=== PATIENT | male | born 1940 | race Caucasian/White ===

== ENCOUNTER 2022-08-31 11:52 | Outpatient (OUT) | payer MEDICARE, SELFPAY ==
--- NOTE | 2022-08-31 | ECG_ITS ---
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
[2022-08-31 12:43] LABS: Basophils Percent Auto 0.5 % (0.2-2.0); Eosinophils Absolute Auto 0.1 10^3/uL (0.0-0.7); Eosinophils Percent Auto 1.2 % (0.9-7.0); Hematocrit 41.9 % (42.0-54.0); Hemoglobin 13.5 g/dL (14.0-18.0); Immature Granulocytes Abs Auto 0.02 10^3/uL (0.00-0.03); Immature Granulocytes Pct Auto 0.3 % (0.0-0.5); Lymphocytes Absolute Auto 1.8 10^3/uL (1.2-3.8); Lymphocytes Percent Auto 30.4 % (20.5-60.0); Mean Corpuscular HGB Conc 32.2 g/dL (29.9-35.2); Mean Corpuscular Hemoglobin 31.9 pg (25.9-34.0); Mean Corpuscular Volume 99.1 fL (80.0-94.0); Mean Platelet Volume 10.6 fL (9.5-13.5); Monocytes Absolute Auto 0.7 10^3/uL (0.3-0.8); Monocytes Percent Auto 11.3 % (1.7-12.0); Neutrophils Absolute Auto 3.2 10^3/uL (1.4-6.5); Neutrophils Percent Auto 56.3 % (43.0-75.0); Platelet Count 149 10^3/uL (150-450); Red Blood Count 4.23 10^6/uL (4.70-6.10); Red Cell Distribution Width 13.5 % (11.0-15.0); White Blood Count 5.8 10^3/uL (4.0-11.0)
[2022-08-31 14:16] LABS: Anion Gap 12.4; BUN Creatinine Ratio 24.2; Calcium 9.5 mg/dL (8.5-10.1); Carbon Dioxide 27.6 mmol/L (21.0-32.0); Chloride 106 mmol/L (98-107); Estimated GFR (African America >60 (>=60); Estimated GFR (Non-African Ame >60 (>=60); Glucose 137 mg/dL (74-106); Sodium 142 mmol/L (136-145)
== END 2022-08-31 11:53 | disposition home or self-care (01) ==
LOC: LAB 11:58
PROVIDERS: PCP Family Medicine
DX: R30.0 Dysuria (principal); N41.1 Chronic prostatitis; N40.1 Benign prostatic hyperplasia with lower urinary tract symptoms; N13.8 Other obstructive and reflux uropathy
CPT/HCPCS: 36415; 80048; 85025; 93005

== ENCOUNTER 2022-09-20 12:26 | Outpatient (OUT) | payer MEDICARE, SELFPAY ==
--- NOTE | 2022-09-20 12:47 | CT_ITS ---
[address] [address] Patient Name: CHEMA ALTMAN MRN: [id number] date: 1940 Sex: M Assigned Patient Location: CT Current Patient Location: CT Accession/Order Number: [id number] Exam Date: 09/20/2022 12:38 Report Date: 09/20/2022 13:41 At the request of: ZOILA JAVED Procedure: CT chest wo con EXAMINATION: CT chest wo con HISTORY: Other non specific abnormal finding of lung field [id number] COMPARISON: CT chest 06/26/2022 TECHNIQUE: Multi-planar CT images were obtained without and/or with IV contrast as indicated by examination type. Axial, Coronal, and Sagittal images. Dose reduction techniques were achieved by using automated exposure control and/or adjustment of mA and/or kV according to patient size and/or use of iterative reconstruction technique. FINDINGS: LUNGS: Continuing decrease in size of strandy opacities within lateral right lung base and left posterior costophrenic angle. Moderate emphysematous changes. Borderline mild bronchiectasis. PLEURA: No mass, effusion, or pneumothorax. VASCULATURE: No abnormality. EMILY: No mass or adenopathy. MEDIASTINUM: No mass or adenopathy. CARDIAC: Small pericardial effusion AORTA: No aneurysm or dissection. CHEST WALL: No mass or axillary adenopathy. BONES: No bone lesion or fracture. LIMITED ABDOMEN: No suspicious findings Limited images of the upper abdomen. OTHER: Negative. CT/CT chest wo con IMPRESSION: 1. Further decrease in size and scope of coarse stranding within posterior lateral right upper lower lobes favoring scarring or resolving postinflammatory changes. No acute or suspicious findings. 2. Moderate emphysematous changes. 3. Stable small pericardial effusion. Electronically authenticated by: PAULINA BOWLES Date: 09/20/2022 13:41
== END 2022-09-20 12:27 | disposition home or self-care (01) ==
LOC: CT 12:27
PROVIDERS: PCP Family Medicine; Visit Provider Internal Medicine
DX: R91.8 Other nonspecific abnormal finding of lung field (principal)
CPT/HCPCS: 71250

== ENCOUNTER 2022-10-24 14:34 | Outpatient (OUT) | payer MEDICARE, SELFPAY ==
[2022-10-24 15:07] LABS: Estimated Average Glucose 146 mg/dL; Glycohemoglobin A1C 6.7 % (4.5-6.2)
== END 2022-10-24 14:35 | disposition home or self-care (01) ==
LOC: LAB 14:35
PROVIDERS: PCP Family Medicine; Visit Provider Family Medicine
DX: E11.22 Type 2 diabetes mellitus with diabetic chronic kidney disease (principal); N18.31 Chronic kidney disease, stage 3a; Z79.4 Long term (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 of insulin
CPT/HCPCS: 36415; 83036

== ENCOUNTER 2023-01-08 09:45 | Outpatient (OUT) | payer MEDICARE, SELFPAY ==
[2023-01-08 10:45] LABS: Free T4 1.05 ng/dL (0.76-1.46)
[2023-01-08 10:52] LABS: Thyroid Stimulating Hormone 1.187 uIU/mL (0.358-3.740)
== END 2023-01-08 09:46 | disposition home or self-care (01) ==
LOC: LAB 09:48
PROVIDERS: PCP Family Medicine; Visit Provider Family Medicine
DX: E03.9 Hypothyroidism, unspecified (principal); I10 Essential (primary) hypertension; R53.82 Chronic fatigue, unspecified; M1A.49X1 Other secondary chronic gout, multiple sites, with tophus (tophi); E11.22 Type 2 diabetes mellitus with diabetic chronic kidney disease; N18.31 Chronic kidney disease, stage 3a; Z79.4 Long term (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 of insulin; I12.9 Hypertensive chronic kidney disease with stage 1 through stage 4 chronic kidney disease, or unspecified chronic kidney disease; E78.2 Mixed hyperlipidemia
CPT/HCPCS: 36415; 80053; 80061; 83036; 84439; 84443; 84481; 84550

== ENCOUNTER 2023-03-07 12:16 | Outpatient (OUT) | payer MEDICARE, SELFPAY ==
--- OUTSIDE RECORDS SUMMARY | 2023-03-07 12:22 | XMS_ITS | CCD ---
Author Name Unknown Address [address] [place] [address] Organization [facility] Care Team Providers Care Dope Sprayer Name Role Phone Oumar Haynes Unavailable KANG MCFADDEN Primary Care Physician MD Kang Mcfadden Primary Care Provider MD Oumar Haynes Attending Provider [phone] Kang Mcfadden MD Primary Care Provider KONG PEPE Attending Unavailable KONG PEPE Attending Unavailable Unavailable Primary Care Provider UnavailYolette Alvarez Unavailable PROVIDER, UNKNOWN Attending Unavailable PROVIDER, UNKNOWN Admitting Unavailable HEMEYER ., DR KAPADIA Primary Care Unavailable MISC, DR WHITMAN Consulting Unavailable MISC, DR WHITMAN Attending Unavailable MISC, DR WHITMAN Admitting Unavailable HEMEYER ., DR KAPADIA Primary Care Unavailable SOSA ., DR THELMA Brown Consulting Unavailable SOSA ., DR THELMA Brown Attending Unavailable SOSA ., DR THELMA Brown Admitting Unavailable QUAKERTOWN, DR ULISSES Ivey Consulting Unavailable SHAIKH Matilde LAU Attending Unavailable HEMEYER ., DR KAPADIA Primary Care Unavailable SHAIKH Matilde LAU Admitting Unavailable SOSA ., DR THELMA Brown Consulting Unavailable BRAX[address] Consulting Unavailable SHAIKH Matilde LAU Consulting Unavailable FAROOQ HARDEN Consulting Unavailable PONCHO ROCHA Consulting Unavailable HEMEYER ., DR KAPADIA Primary Care Unavailable MISC, DR WHITMAN Consulting Unavailable MISC, DR WHITMAN Admitting Unavailable MISC, DR WHITMAN Attending Unavailable DONALD .ELDER Attending Unavailable HEMEYER ., DR KAPADIA Primary Care Unavailable DONALD .ELDER Admitting Unavailable SOSA ., DR THELMA Brown Consulting Unavailable MAXI, DR SUSANA G Consulting Unavailabl alejandro ADAMS, BING Consulting Unavailable SISTER, JERALD Consulting Unavailable DONALD ., ELDER Consulting Unavailable DIAB ., [place] Consulting Unavailable HEMEYER ., DR KAPADIA Admitting Unavailable HEMEYER ., DR KAPADIA Attending Unavailable HEMEYER ., DR KAPADIA Primary Care Unavailable HEMEYER ., DR KAPADIA Attending Unavailable HEMEYER ., DR KAPADIA Primary Care Unavailable HEMEYER ., DR KAPADIA Admrosi Unavailable THELMA BETTS Attending Unavailable HEMEYER ., DR KAPADIA Primary Care Unavailable THELMA BETTS Admitting Unavailable HEMEYER ., DR KAPADIA Attending Unavailable HEMEYER ., DR KAPADIA Primary Care Unavailable HEMEYER ., DR KAPADIA Consulting Unavailable HEMEYER ., DR KAPADIA Admitting Unavailable HEMEYER ., DR KAPADIA Admrosi Unavailable HEMEYER ., DR KAPADIA Attending Unavailable HEMEYER ., DR KAPADIA Primary Care Unavailable HEMEYER ., DR KAPADIA Consulting Unavailable HEMEYER ., DR KAPADIA Attending Unavailable HEMEYER ., DR KAPADIA Primary Care Unavailable HEMEYER ., DR KAPADIA Consulting Unavailable HEMEYER ., DR KAPADIA Admrosi Unavailable HEMEYER ., DR KAPADIA Attending Unavailable HEMEYER ., DR KAPADIA Primary Care Unavailable HEMEYER ., DR KAPADIA Consulting Unavailable HEMEYER ., DR KAPADIA Admrosi Unavailable SAMSA ., ZOILA Consulting Unavailable SAMSA ., ZOILA Attending Unavailable HEMEYER ., DR KAPADIA Primary Care Unavailable SAMSA ., ZOILA Admitting Unavailable HEMEYER ., DR KAPADIA Admitting Unavailable HEMEYER ., DR KAPADIA Attending Unavailable HEMEYER ., DR KAPADIA Primary Care Unavailable HEMEYER ., DR KAPADIA Consulting Unavailable SAMSA ., ZOILA Admitting Unavailable SAMSA ., ZOILA Attending Unavailable HEMEYER ., DR KAPADIA Primary Care Unavailable ZIEBER, DR PAULINA Chin Consulting Unavailable SAMSA ., ZOILA Consulting Unavailable Hemeyer Kang GARCÍA Primary Care Provider KANG MCFADDEN Primary Care Unavailable SUZY HUNTER Referring Unavailable ERICA VERAS Referring Unavailable HEMEYERKANG Primary Care Unavailable HEMEYERKANG Primary Care Unavailable TRISTON GONSALVES Referring Unavailable HEMEKANG SALEH Primary Care Unavailable ERICA VERAS Admitting Unavailable ERICA VERAS Attending Unavailable HEMEKANG SALEH Primary Care Unavailable TRISTON GONSALVES Referring Unavailable HEMEYERKANG Primary Care Unavailable ERICA VERAS Referring Unavailable KANG MCFADDEN Attending Unavailable MD Kang Mcfadden Primary Care Provider SHELBY Duff Attending Provider Horace Jasso Unavailable [phone] 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 Attending Unavailable 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 Admitting Unavailable Kang Mcfadden Primary Care Unavailable Allergies Allergy Classification Reported Allergen(s) Allergy Type Date of Onset Reaction(s) Facility (3 sources) Sulfamethoxazole / Trimethoprim; Translations: [sulfamethoxazole-tr imethoprim] Drug Allergy 3 Weal (disorder), Rash [facility] (2 sources) Tetracycline; Translations: [tetracycline] Drug Allergy Finding reported by subject or history provider (finding) [facility] (2 sources) Erythromycin Drug Allergy 8 Nausea And Vomiting [facility] (2 sources) levoFLOXacin Drug Allergy 3 Diarrhea [facility] Work Phone: (1 source) Sulfamethoxazole / Trimethoprim Drug Allergy [facility] [place] [facility] Medications Current Medications Medication Drug Class(es) Dates Sig (Normalized) Sig (Original) Allergy 25 MG (3 sources) take 1 capsule by mouth once daily Allergy 25 MG 1 capsule Orally Once a day Active allopurinol 300 mg oral tablet (6 sources) Xanthine Oxidase Inhibitor Start: 04-20-2022 take 1 tablet by mouth once daily allopurinol (ZYLOPRIM) 300 MG tablet TAKE 1 TABLET BY MOUTH EVERY DAY FOR 90 DAYS 0 04/20/2022 Active Start: 05-12-2019 allopurinol Re fills(s) 0 Start Date: 05/12/19 Status: Ordered Ascorbic Acid (1 source) Vitamin C Start: 11-23-2021 Vitamin C Amaya y, Refills(s) 0 Start Date: 11/23/21 Status: Ordered aspirin 81 mg oral tablet (5 sources) Platelet Aggregation Inhibitor, Nonsteroidal Anti-inflammatory Drug Start: 05-12-2019 take 1 mg by mouth once daily aspirin 81 mg oral tablet mg tab(s), Oral, Daily, Refills(s) 0 Start Date: 05/12/19 Status: Ordered take 1 tablet by yuan th every twenty-four hours Ecotrin Low Strength 81 MG 1 tablet Orally Once a day for 30 day(s) Active atorvastatin 20 mg oral tablet (5 sources) HMG-CoA Reductase Inhibitor Start: 04-20-2022 take 1 tablet by mouth once daily atorvastatin (LIPITOR) 20 MG tablet TAKE 1 TABLET BY MOUTH EVERY DAY FOR 90 DAYS 0 04/20/2022 Active bimatoprost 0.1 mg/ml ophthalmic solution (2 sources) Prostaglandin Analog take 1 drop(s) into the eye(s) once daily bimatoprost (LUMIGAN) 0.01 % SOLN ophthalmic drops Place 1 drop into both eyes nightly 0 Active Bioflavonoid Products (REAL C PO) (2 sources) Bioflavonoid Pro ducts (REAL C PO) Take by mouth 0 Active brimonidine tartrate 2 mg/ml ophthalmic solution (2 sources) alpha-Adrenergic Agonist take 1 drop(s) into the eye(s) three times daily brimonidine (ALPHAGAN) 0.2 % ophthalmic solution 1 drop 3 times daily 0 Active carboxymethylcellulose sodium 5 mg/ml ophthalmic solution (2 sources) Carboxymethylcel lulose Sodium (EYE DROPS) 0.5 % SOLN Apply to eye 0 Active doxycycline hyclate 100 mg oral capsule (1 source) Tetracycline-cla ss Drug Doxycycline Hyclate 100 MG TAKE 1 CAPSULE ORALLY TWO TIMES DAILY 7 DAYS Oral for 7 Days Active Ecotrin Low Strength 81 MG (1 source) take 1 tablet by mouth once daily Ecotrin Low Strength 81 MG 1 tablet Orally Once a day for 30 day(s) Active 120 actuat formoterol fumarate 0.0048 mg/actuat / glycopyrrolate 0.009 mg/actuat metered dose inhaler (2 sources) beta2-Adrenergic Agonist glycopyrrolate-formo tero l (BEVESPI) 9-4.8 MCG/ACT AERO Inhale 2 puffs into the lungs 2 times daily 0 Active 3 ml insulin aspart, human 100 unt/ml pen injector (1 source) Insulin Analog Start: 08-08-2022 NOVOLOG FLEXPEN 100 UNIT/ML injection pen 3 Units in the morning and at bedtime As directed 0 08/08/2022 Active ketorolac tromethamine 5 mg/ml ophthalmic solution (2 sources) Nonsteroidal Anti-inflammator y Drug, Cyclooxygenase Inhibitor Start: 12-08-2007 take 1 drop(s) into the eye(s) four times daily ketorolac (ACULAR) 0.5 % ophthalmic solution Apply 1 drop to eye 4 times daily 0 12/08/2007 Active levoFLOXacin 500 mg oral tablet (1 source) Quinolone Antimicrobial Start: 11-23-2021 End: 12-21-2021 take 1 tablet by mouth every twenty-fo ur hours Levaquin 500 mg Tab 500 mg = 1 tab(s), Oral, q24hr, X 4 week(s), # 28 tab(s), Refills(s) 0, Pharmacy: [facility]/pharmacy #[id number], 180, cm, 11/23/21 10:01:00 EDT, Height/Length Dosing, 84, kg, 11/23/21 10:01:00 EDT, Weight Dosing Start Date: 11/23/21 Stop Date: 12/21/21 Status: Ordered levothyroxine sodium 0.088 mg oral capsule (3 sources) l-Thyroxine Start: 11-23-2021 take 1 capsule by mouth once daily levothyroxine 88 mcg (0.088 mg) oral capsule 88 mcg = 1 cap(s), Oral, Daily, # 30 cap(s), Refills(s) 0 Start Date: 11/23/21 Status: Ordered take 1 tablet by mouth once amaya y levothyroxine (SYNTHROID) 88 MCG tablet Take 1 tablet by mouth Daily 0 Active losartan potassium 50 mg oral tablet (7 sources) Angiotensin 2 Receptor [place] Start: 11-23-2021 take 1 tablet by mouth once daily losartan 50 mg Tab 50 mg = 1 tab(s), Oral, Daily, # 30 tab(s), Refills(s) 0 Start Date: 11/23/21 Status: Ordered Start: 05-12-2019 losartan Oral, Daily, Refills(s) 0 Start Date: 05/12/19 Status: Ordered Lysine (6 sources) Start: 05-12-2019 take 1 mg by mouth o nce daily lysine mg, Oral, Daily, Refills(s) 0 Start Date: 05/12/19 Status: Ordered L-Lysine 1000 MG as directed Orally Active meclizine hydrochloride 25 mg oral tablet (2 sources) Antiemetic take 1 tablet by mouth three times daily as needed meclizine (ANTIVERT) 25 MG tablet Take 25 mg by mouth 3 times daily as needed 0 Active metFORMIN hydrochloride 850 mg oral tablet (6 sources) Biguanide Start: 11-23-2021 take 1 tablet by mouth once daily in the morning metformin 850 mg oral tablet 850 mg = 1 tab(s), Oral, qAM, # 30 tab(s), Refills(s) 0 Start Date: 11/23/21 Status: Ordered metFORMIN HCl ER 750 MG TAKE 1 TABLET BY MOUTH EVERY DAY WITH EVENING MEAL FOR 90 DAYS Oral for 90 Days Active Milk thistle extract (2 sources) Start: 11-23-2021 Milk Thistle o ral tablet Refill(s) 0 Start Date: 11/23/21 Status: Ordered Milk Thistle 100 0 MG CAPS Take by mouth 0 Active Multiple Vitamin (MULTI VITAMIN MENS PO) (2 sources) Multiple Vitamin (MULTI VITAMIN MENS PO) Take by mouth 0 Active Omeprazole (6 sources) Proton Pump Inhibitor Start: 05-12-2019 omeprazole Oral, Daily, Refills(s) 0 Start Date: 05/12/19 Status: Ordered take [address] [facility] every twenty-four hours Omeprazole 20 MG 1 capsule Orally Once a day for 30 day(s) Active take 40 mg by mouth once daily O MEPRAZOLE PO Take 40 mg by mouth daily 0 Active polymyxin b 44447 unt/ml / trimethoprim 1 mg/ml ophthalmic solution (2 sources) Dihydrofolate Reductase Inhibitor Antibacterial, Polymyxin-class Antibacterial Start: 12-08-2007 take 1 drop(s) into the eye(s) every four hours trimethoprim-polymyxin b (POLYTRIM) 42258-0.1 UNIT/ML-% ophthalmic solution Apply 1 drop to eye every 4 hours 0 12/08/2007 Active Probiotic Product (PROBIOTIC-10 PO) (1 source) Probiotic Produc t (PROBIOTIC-10 PO) Take by mouth 0 Active Ramipril (2 sources) Angiotensin Converting Enzyme Inhibitor Ramipril (ALTACE PO) Take by mouth 0 Active tamsulosin hydrochloride 0.4 mg oral capsule (3 sources) alpha-Adrenergic [place] Start: 08-09-2022 take 1 capsule by mouth at bedtime tamsulosin (FLOMAX) 0.4 MG capsule Indications: BPH with obstruction/lower urinary tract symptoms Take 1 capsule by mouth in the morning and at bedtime 60 capsule 11 08/09/2022 Active Start: 03-01-2022 End: 03-31-2022 take 1 capsule by mouth at bedtime tamsulosin (FLOMAX) 0.4 MG capsule Indications: BPH with obstruction/lower urinary tract symptoms Take 1 capsule by mouth in the morning and at bedtime 60 capsule 11 03/01/2022 03/31/2022 Active Start: 05-12-2019 take 1 mg by mouth once daily tamsulosin 0.4 mg Cap mg cap(s), Oral, Daily, Refills(s) 0 Start Date: 05/12/19 Status: Ordered timolol 2.5 mg/ml ophthalmic solution (2 sources) beta-Adrenergic [place] take 1-2 drop(s) into the eye(s) twice daily timolol (BETIMOL) 0.25 % ophthalmic solution 1-2 drops 2 times daily 0 Active vitamin b12 0.1 mg oral lozenge (2 sources) Vitamin B12 Cyanocobalamin ( VITAMIN B 12) 100 MCG LOZG Take by mouth 0 Active Completed/Discontinued Medications Medication Drug Class(es) Dates Sig (Normalized) Sig (Original) Fiber Complete TABS (1 source) Fiber Complete T ABS Take by mouth 0 Active lisinopril 20 mg oral tablet (3 sources) Angiotensin Converting Enzyme Inhibitor take 1 tablet by mouth every twenty-four hours Lisinopril 20 MG 1 tablet Orally Once a day for 30 day(s) Not-Taking/PRN Problems Active Problems Problem Classification Problem Date Documented Date Episodic/Chronic Aortic; peripheral; and visceral artery aneurysms (6 sources) Abdominal aortic aneurysm 3.0 to 5.5 centimeters in male; Translations: [Abdominal aortic aneurysm, without rupture] Onset: 08-16-2021 Resolved: 08-16-2021 Chronic Cardiac dysrhythmias (1 source) Tachycardia; Translations: [Tachycardia, unspecified] Episodic Chronic kidney disease (1 source) Chronic kidney disease; Translations: [CHRONIC KIDNEY DISEASE STAGE 3A] Onset: 08-05-2021 Chronic obstructive pulmonary disease and bronchiectasis (2 sources) Emphysema, unspecified; Translations: [Chronic obstructive pulmonary disease with (acute) exacerbation] Onset: 04-03-2022 Chronic Coronary atherosclerosis and other heart disease (1 source) Atherosclerotic heart disease of [place] coronary artery without angina pectoris; Translations: [ASHD [place] W/O ANGINA PECTORIS] Onset: 05-03-2022 Chronic Diabetes mellitus with complications (5 sources) Type 2 diabetes mellitus with diabetic chronic kidney disease; Translations: [TYPE 2 DM W/DIABETIC CKD] Onset: 02-06-2022 Chronic Diabetes mellitus without complication (1 source) Type 2 diabetes mellitus without complications; Translations: [TYPE 2 DM WITHOUT COMPLICATIONS] Onset: 05-03-2022 Chronic Disorders of lipid metabolism (6 sources) Hyperlipidemia, unspecified; Translations: [Pure hypercholesterolemia, unspecified] Onset: 02-01-2022 Chronic E Codes: Adverse effects of medical drugs (1 source) Adverse effect of insulin and oral hypoglycemic [antidiabetic] drugs, initial encounter; Translations: [ADVERS EFF INSULIN ORAL HG RX INIT] Onset: 05-03-2022 Episodic E Codes: Fall (1 source) Fall; Translations: [Unspecified fall, initial encounter] Episodic Esophageal disorders (1 source) Gastroesophageal reflux disease 05-12-2019 Chronic Essential hypertension (2 sources) Hypertensive disorder; Translations: [Essential (primary) hypertension] Onset: 05-03-2022 05-12-2019 Chronic Genitourinary symptoms and ill-defined conditions (2 sources) Urge incontinence; Translations: [Urge incontinence] Onset: 12-01-2022 Chronic Glaucoma (1 source) Glaucoma 05-12-2019 Chronic Gout and other crystal arthropathies (2 sources) Gout; Translations: [Chronic gout, unspecified, without tophus (tophi)] Onset: 04-23-2022 05-12-2019 Chronic Hyperplasia of prostate (8 sources) Benign prostatic hypertrophy with outflow obstruction; Translations: [Benign prostatic hyperplasia with lower urinary tract symptoms] Onset: 11-23-2021 Chronic Hypertension with complications and secondary hypertension (5 sources) Hypertensive chronic kidney disease with stage 1 through stage 4 chronic kidney disease, or unspecified chronic kidney disease; Translations: [HTN CKD W/STAGE 1-4 CKD/UNS CKD] Onset: 02-05-2022 Chronic Inflammatory conditions of male genital organs (1 source) Prostatitis; Translations: [Inflammatory disease of prostate, unspecified] Onset: 11-23-2021 Episodic Malaise and fatigue (4 sources) Chronic fatigue, unspecified; Translations: [CHRONIC FATIGUE UNSPECIFIED] Onset: 09-21-2021 Chronic Menopausal disorders (1 source) Hormone replacement therapy; Translations: [HORMONE REPLACEMENT THERAPY] Onset: 05-03-2022 Episodic Other aftercare (1 source) moth exterminator (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 of 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; Translations: [FDC CURRENT USE OF ASPIRIN] Onset: 05-03-2022 Episodic Other aftercare (1 source) Other superintendent container terminal (current) drug therapy; Translations: [OTH FDC CURRENT DRUG THERAPY] Onset: 05-03-2022 Episodic Other aftercare (1 source) moth exterminator (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 of oral hypoglycemic drugs; Translations: [COIN DEALER USE ORAL HYPOGLYCEMIC DX] Onset: 05-03-2022 Episodic Other connective tissue disease (5 sources) Muscle weakness (generalized); Translations: [MUSCLE WEAKNESS GENERALIZED] Onset: 04-24-2022 Episodic Other diseases of kidney and ureters (3 sources) Other obstructive and reflux uropathy; Translations: [Other obstructive and reflux uropathy] Onset: 03-01-2022 Episodic Other lower respiratory disease (4 sources) Other nonspecific abnormal finding of lung field; Translations: [OTH NONSPECIFIC ABN FIND LNG FIELD] Onset: 06-26-2022 Episodic Other male genital disorders (1 source) Impotence 05-12-2019 Chronic Other nervous system disorders (1 source) Difficulty in walking, not elsewhere classified; Translations: [DIFFICULTY IN WALKING NEC] Onset: 04-24-2022 Chronic Other upper respiratory infections (3 sources) Acute upper respiratory infection; Translations: [Acute upper respiratory infection] Episodic Pneumonia (except that caused by tuberculosis or sexually transmitted disease) (1 source) Pneumonia, unspecified organism; Translations: [PNEUMONIA UNSPECIFIED ORGANISM] Onset: 05-03-2022 Episodic Pneumonia (except that caused by tuberculosis or sexually transmitted disease) (1 source) Pneumonia (except that caused by tuberculosis or sexually transmitted disease); Translations: [PNEUMONIA D/T CORONAVIRUS DIS 2019] Onset: 05-03-2022 Residual codes; unclassified (2 sources) Other specified postprocedural states; Translations: [Other specified postprocedural states] Onset: 12-01-2022 Episodic Respiratory failure; insufficiency; arrest (adult) (2 sources) Acute and chronic respiratory failure with hypoxia; Translations: [Dependence on supplemental oxygen] Onset: 04-23-2022 Chronic Respiratory failure; insufficiency; arrest (adult) (1 source) Acute respiratory failure with hypoxia; Translations: [ACUTE RESPIRATORY FAIL W/HYPOXIA] Onset: 05-03-2022 Episodic Screening and history of mental health and substance abuse codes (1 source) Personal history of nicotine dependence; Translations: [PERSONAL HISTORY OF NICOTINE DEPEND] Onset: 05-03-2022 Episodic Septicemia (except in labor) (4 sources) Sepsis, unspecified organism; Translations: [SEPSIS UNSPECIFIED ORGANISM] Onset: 04-19-2022 Episodic Thyroid disorders (1 source) Hypothyroidism, unspecified; Translations: [HYPOTHYROIDISM UNSPECIFIED] Onset: 05-03-2022 Chronic Unclassified (1 source) ACIDOSIS UNSPECIFIED; Translations: [ACIDOSIS UNSPECIFIED] Onset: 05-03-2022 Unclassified (1 source) PERSONAL HISTORY OF COVID-19; Translations: [PERSONAL HISTORY OF COVID-19] Onset: 04-03-2022 Unclassified (1 source) Abdominal aortic aneurysm, without rupture, unspecified; Translations: [Abdominal aortic aneurysm, without rupture, unspecified] Onset: 01-31-2023 Viral infection (4 sources) COVID-19; Translations: [COVID-19] Onset: 04-05-2022 Past or Other Problems Problem Classification Problem Date Documented Da te Episodic/Chronic Genitourinary symptoms and ill-defined conditions (5 sources) Dysuria; Translations: [Dysuria] Onset: 03-01-2022 Episodic Other injuries and conditions due to external causes (1 source) History of falling; Translations: [HISTORY OF FALLING] Onset: 04-03-2022 Episodic Other lower respiratory disease (2 sources) Dyspnea; Translations: [Shortness of breath] Onset: 03-28-2022 Episodic Other lower respiratory disease (2 sources) Shortness of breath; Translations: [SHORTNESS OF BREATH] Onset: 04-03-2022 Episodic Other screening for suspected conditions (not mental disorders or infectious disease) (4 sources) Encounter for screening for malignant neoplasm of prostate; Translations: [ENC SCREEN MALIG NEOPLASM PROSTATE] Onset: 03-02-2022 Episodic Unclassified (1 source) Abdominal aortic aneurysm (AAA) without rupture, unspecified part I71.40 Results Test Name Value Interpretation Reference Range Facility aorta 01-31-2023 aorta [facility] Main [address] [address] Ultrasound Report Signed Patient: Chema Childs MR#: [id number] : 1940 Acct:[id number] Age/Sex: 82 / M ADM Date: 01/31/23 Loc: [facility] Room: Type: [facility] Attending Dr: 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 ONCOLOGY TECHNICIAN-C Ordering Provider: 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 APRN Date of Service: 01/31/23 US/US aorta: I71.4 Copies to: 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 APRN ULTRASOUND OF THE ABDOMINAL AORTA: CLINICAL INFORMATION: This patient has a history of a aortic ulcer. COMPARISON : Previous CT scan from January 2022 revealed a fusiform infrarenal abdominal aortic aneurysm measuring 3.2 cm and the maximum AP diameter. TECHNIQUE AND FINDINGS: Multiple ultrasonographic scans of the abdominal aorta were obtained and show: Following measurement were obtained: Proximal height: 2.6 width : 2.3 Mid height: 1.9 width : 1.8 Distal height: 3.4 width : 3.2 US/US aorta IMPRESSION: Stable 3.4 cm infrarenal abdominal aortic aneurysm with no complicating features. Impression dictated by: Horace Jasso MD01/31/2023 11:09 AM Dictation Location: [place] [address] Tech: Elder Hoyt Transcribed By: GOYO 01/31/23 110 Dictated By: Horace Jasso MD 01/31/23 110 Signed By: 01/31/23 110 [facility] Cult,Urineon 12-02-2022 Cult,Urine Specimen Description .CLEAN CATCH URINE Culture NO GROWTH Report Status FINAL 12/02/2022 [facility] Comment on above: Performed By: #### U RC #### [facility] [place] [address] Coat Checker: Sandip Smith MD [address] [place] [address] Coat Checker: Ulisses Gaines MD OPERATIVE REPORTon OPERATIVE REPORT [address] [place] [address] OPERATIVE REPORT PATIENT NAME: CHEMA CHILDS : 1940 MED REC NO: [id number] ROOM: ACCOUNT NO: [id number] ADMIT DATE: 10/03/2022 PROVIDER: Erica Veras DATE OF PROCEDURE: 10/03/2022 SURGEON: Dr. Erica Veras. DESULPHURIZER OPERATOR: None. PREOPERATIVE DIAGNOSES: 1. BPH with lower urinary tract symptoms. 2. Urinary frequency. 3. Urinary urgency. 4. Urinary weak stream. POSTOPERATIVE DIAGNOSES: 1. BPH with lower urinary tract symptoms. 2. Urinary frequency. 3. Urinary urgency. 4. Urinary weak stream. PROCEDURES PERFORMED: Photoselective vaporization of the prostate with GreenLight laser XPS. ANESTHESIA: General. COMPLICATIONS: None. ESTIMATED BLOOD LOSS: Minimal. SPECIMENS: None. PROSTHESIS: A 22-Djiboutian Gould catheter. DISPOSITION: Stable. FINDINGS: Trilobar hyperplasia of the prostate. INDICATIONS: This patient is an 82-year-old male with extensive lower urinary tract symptoms, here now for definitive therapy in the form of PVP GreenLight DESCRIPTION OF PROCEDURE: The patient was taken back to the operating room after informed consent including all risks, benefits, and alternatives were obtained. The patient was transferred from the [facility] onto the operating room table, where he was induced under general anesthesia, and given IV Ancef for preoperative antibiotic prophylaxis. To begin the case, he was prepped and draped in the normal sterile fashion, and placed in the dorsal lithotomy. He had a 24-Djiboutian sheath with a 30-degree lens passed through the urethra into the bladder. Once in the bladder, we identified the ureteral orifice far away from the bladder neck. We then inserted the XPS laser fiber in and ablated the prostate. We began at the bladder neck and worked our way to the verumontanum. We did use a total of 88,000 joules of energy. Once this was done, we were able to turn off the inflow and hemostasis was achieved. We then removed the scope and inserted a 22-Djiboutian three-way Gould catheter and hand irrigated to clear. He was then awoken from general anesthesia, transferred to the [facility], and taken to the PACU in satisfactory condition by Nursing and Anesthesia Teams. PLAN: The patient will be discharged home per PACU criterion and follow up with us in [id number] days for Gould catheter removal. ERICA VERAS [id number] Doc#: [id number] CC: Normal [facility] Cult,Urineon 08-29-2022 Cult,Urine Specimen Description .CLEAN CATCH URINE Culture NO GROWTH Report Status FINAL 08/29/2022 Normal [facility] Comment on above: Performed By: #### U RC #### [facility] [address] [place], [place] [id number] Coat Checker: Sandip Smith MD [facility] [address] [place], [place] [id number] Coat Checker: Ulisses Gaines MD Urinalysis w/ Microon 2022 Bacteria 1+ Abnormal NONE [facility] Comment on above: Performed By: #### U AMIC #### [facility] [address] [place] [address] Dr[address] [place], [place] [id number] Coat Checker: Ulisses Gaines MD Bilirubin, SemiQt,Ur Negative Normal NEG [facility] Comment on above: Performed By: #### U AMIC #### [facility] [address] [place] [address] Coat Checker: Ulisses Gaines MD Blood, Urine Negative Normal NEG [facility] Comment on above: Performed By: #### U AMIC #### [facility] [address] [place] [address] Dr. [place], [place] [id number] Coat Checker: Ulisses Gaines MD Clarity (U) Clear Normal CLEAR [facility] Comment on above: Performed By: #### U AMIC #### [facility] [address] [place] [address] Coat Checker: Ulisses Gaines MD Color (U) Yellow Normal YEL [facility] Comment on above: Performed By: #### U AMIC #### [facility] [address] [place] [address] Coat Checker: Ulisses Gaines MD Epithelial cells LM Ql (Urine sed) 0 TO 2 Normal 0-5 [facility] Comment on above: Performed By: #### U AMIC #### [facility] [address] [place] [address] Dr[address] [place], [place] [id number] Coat Checker: Ulisses Gaines MD Glucose Ql (U) Negative Normal NEG [facility] Comment on above: Performed By: #### U AMIC #### [facility] [address] [place] [address] Dr. [place], [place] [id number] Coat Checker: Ulisses Gaines MD Ketones Ql (U) Negative Normal NEG [facility] Comment on above: Performed By: #### U AMIC #### [facility] [address] [place] [address] Dr. [place], [place] [id number] Coat Checker: Ulisses Gaines MD Leukocyte esterase Test strip Ql (U) Negative Normal NEG [facility] Comment on above: Performed By: #### U AMIC #### [facility] [address] [place] [address] Dr. [place], [place] [id number] Coat Checker: Ulisses Gaines MD Nitrite,Ur Negative Normal NEG [facility] Comment on above: Performed By: #### U AMIC #### [facility] [address] [place] [address] Dr. [place], [place] [id number] Coat Checker: Ulisses Gaines MD PH,Ur 6.0 Normal 5.0-9.0 [facility] Comment on above: Performed By: #### U AMIC #### [facility] [address] [place] [address] Dr. [place], [place] [id number] Coat Checker: Ulisses Gaines MD Protein Ql (U) Negative Normal NEG [facility] Comment on above: Performed By: #### U AMIC #### [facility] [address] [place] [address] Dr. [place], [place] [phone] Coat Checker: Ulisses Gaines MD Spec. [place],Ur 1.015 Normal 1.010-1.020 [facility] Comment on above: Performed By: #### U AMIC #### [facility] [address] [place] [address] Coat Checker: Ulisses Gaines MD Urine RBC's None Normal 0-2 [facility] Comment on above: Performed By: #### U AMIC #### [facility] [address] [place] [address] Coat Checker: Ulisses Gaines MD Urine WBC's 0 TO 2 Normal 0-5 [facility] Comment on above: Performed By: #### U AMIC #### [facility] [address] [place] [address] Coat Checker: Ulisses Gaines MD Urobilinogen,Ur Normal Normal NORM [facility] Comment on above: Performed By: #### U AMIC #### [facility] [address] [place] [address] Coat Checker: Ulisses Gaines MD Cult,Urineon 08-10-2022 Cult,Urine Specimen Description .CLEAN CATCH URINE Culture NO GROWTH Report Status FINAL 08/10/2022 Normal [facility] Comment on above: Performed By: #### U RC #### [facility] [address] [place] [address] Coat Checker: Sandip Smith MD [facility] [address] [place] [address] [place] [address] Coat Checker: Ulisses Gaines MD HEMOGLOBINon 07-03-2022 Hemoglobin (Bld) [Mass/Vol] 13.6 g/dL Critically low 14.0-18.0 [facility] Comment on above: Performed By: #### P OCGLUC #### [facility] [address] [place] [address] CHEST WO CONon 06-26-2022 CT CHEST WO CON EXAMINATION: CT CHEST WO CON HISTORY: Lung field abnormal COMPARISON: CTA chest 04/05/2022 TECHNIQUE: Axial, Coronal, and Sagittal images were created without the administration of IV contrast material. Dose reduction techniques were achieved by using automated exposure control and/or adjustment of mA and/or kV according to patient size and/or use of iterative reconstruction technique. FINDINGS: LUNGS: Moderate emphysematous changes. Coarse stranding within posterior lateral right upper and lower lobes with some involvement of the right middle lobe. Mild stranding scattered within left lung. PLEURA: No mass, effusion, or pneumothorax. VASCULATURE: No abnormality. EMILY: No mass or adenopathy. MEDIASTINUM: No mass or adenopathy. CARDIAC: Trace amount of pericardial fluid, less than previously seen. AORTA: No aneurysm or dissection. CHEST WALL: No mass or axillary adenopathy. BONES: No bone lesion or fracture. LIMITED ABDOMEN: Small stones within gallbladder and right kidney. Limited images of the upper abdomen. OTHER: Negative. IMPRESSION: 1. Moderate emphysematous changes. 2. Coarse stranding within the lungs, right greater than left which has changed configuration compared to prior study and may represent postinflammatory scarring. Infectious infiltrates and neoplasm cannot be completely excluded. Follow-up CT chest without contrast in one-2 months is recommended to document stability versus change. 3. No lymphadenopathy. Electronically authenticated by: PAULINA BOWLES Date: 2022-06-26 16:34 Normal [facility] PULMONARY FUNCTION TESTon PULMONARY FUNCTION TEST PULMONARY FUNCTION TEST STUDY DATE: 06/26/2022 SIX MINUTE WALK STUDY INDICATION: Chronic respiratory failure and hypoxia. Six minute walk study was initiated according to standard protocol. Oxygen saturation on room air was 98% with heart rate 64, blood pressure 120/80, Ayo 0, MMRC 0. Patient ambulated for six minutes, totaling 290 meters. At the end of six minutes, heart rate was 95. Saturation was 92% on room air and Ayo score was 2.5. During recovery, blood pressure was 130/90, heart rate 78 and saturation was 96% on room air. Lowest saturation with ambulation was 91%. No stops were encountered during this study. Total percent predicted walk distance was 86%. IMPRESSIONS: No ambulatory desaturations. Good walk distance at 86% predicted. RECOMMENDATIONS: Six minute walk study does not indicate need for ambulatory supplemental oxygen. Clinical correlation is required. Normal [facility] Cult,Urineon 06-15-2022 Cult,Urine Specimen Description .CLEAN CATCH URINE Culture NO GROWTH Report Status FINAL 06/15/2022 Normal [facility] Comment on above: Performed By: #### U RC #### [facility] [address] [place], [place] [id number] Coat Checker: Sandip Smith MD [facility] [address] [place] [address] Coat Checker: Ulisses Gaines MD CBC AUTO DIFFon 04-19-2022 BASO # 0.0 103/ul Normal 0.0-0.1 [facility] Comment on above: Performed By: #### L ACT #### [facility] [address] [address] [address] Kerrie Stark Basophils/100 WBC (Bld) 0.2 % Normal 0.2-2.0 [facility] Comment on above: Performed By: #### L ACT #### [facility] [address] [address] [address] Kerrie Stark EO # 0.0 103/ul Normal 0.0-0.7 [facility] Comment on above: Performed By: #### L ACT #### [facility] [address] [address] [address] Kerrie Stark Eosinophils/100 WBC (Bld) 0.2 % Critically low 0.9-7.0 [facility] Comment on above: Performed By: #### L ACT #### [facility] [address] [address] [address] Kerrie Stark Erythrocyte distribution width (RBC) [Ratio] 13.3 % Normal 11.0-15.0 [facility] Comment on above: Performed By: #### L ACT #### [facility] [address] [address] [address] Kerrie Stark Hematocrit (Bld) [Volume fraction] 38.8 % Critically low 42.0-54.0 [facility] Comment on above: Performed By: #### L ACT #### [facility] [address] [address] [address] Kerrie Stark Hemoglobin (Bld) [Mass/Vol] 13.1 g/dL Critically low 14.0-18.0 [facility] Comment on above: Performed By: #### L ACT #### [facility] [address] [place] [address] Dr. Kerrie Stark IG # 0.35 10e3/ul Critically high 0.00-0.03 [facility] Comment on above: Performed By: #### L ACT #### [facility] [address] [address] [address] Kerrie Stark IG % 2.6 % Critically high 0.0-0.5 [facility] Comment on above: Performed By: #### L ACT #### [facility] [address] [place] [address] Dr. Kerrie Stark LYMPH # 1.3 103/ul Normal 1.2-3.8 [facility] Comment on above: Performed By: #### L ACT #### [facility] [address] [place] [address] Dr. Kerrie Stark Lymphocytes/100 WBC (Bld) 9.7 % Critically low 20.5-60.0 [facility] Comment on above: Performed By: #### L ACT #### [facility] [address] [place] [address] Dr. Kerrie Stark MANUAL DIFF REQ NO Normal [facility] Comment on above: Performed By: #### L ACT #### [facility] [address] [place] [address] Dr. Kerrie Stark MCH (RBC) [Entitic mass] 32.8 pg Normal 25.9-34.0 [facility] Comment on above: Performed By: #### L ACT #### [facility] [address] [place] [address] Dr. Kerrie Stark MCHC (RBC) [Mass/Vol] 33.8 g/dL Normal 29.9-35.2 [facility] Comment on above: Performed By: #### L ACT #### [facility] [address] [place] [address] Dr. Kerrie Stark MCV (RBC) [Entitic vol] 97.2 fL Critically high 80.0-94.0 [facility] Comment on above: Performed By: #### L ACT #### [facility] [address] [address] [address] Kerrie Stark MONO # 0.8 103/ul Normal 0.3-0.8 [facility] Comment on above: Performed By: #### L ACT #### [facility] [address] [address] [address] Kerrie Stark Monocytes/100 WBC (Bld) 5.9 % Normal 1.7-12.0 [facility] Comment on above: Performed By: #### L ACT #### [facility] [address] [address] [address] Kerrie Stark NEUT # 10.8 103/ul Critically high 1.4-6.5 [facility] Comment on above: Performed By: #### L ACT #### [facility] [address] [address] [address] Kerrie Stark Neutrophils/100 WBC (Bld) 81.4 % Critically high 43.0-75.0 [facility] Comment on above: Performed By: #### L ACT #### [facility] [address] [address] [address] Kerrie Stark Platelet mean volume (Bld) [Entitic vol] 10.4 fL Normal 9.5-13.5 [facility] Comment on above: Performed By: #### L ACT #### [facility] [address] [address] [address] Kerrie Stark PLT 158 103/ul Normal 150-450 [facility] Comment on above: Performed By: #### L ACT #### [facility] [address] [address] [address] Kerrie Stark RBC 3.99 106/ul Critically low 4.70-6.10 [facility] Comment on above: Performed By: #### L ACT #### [facility] [address] [address] [address] Kerrie Stark WBC 13.2 103/ul Critically high 4.0-11.0 [facility] Comment on above: Performed By: #### L ACT #### [facility] [address] [address] [address] Kerrie Stark GLYCOHEMOGLOBIN A1Con 2022 ADA RECOMMENDATION SEE BELOW Normal [facility] Comment on above: Result Comment: ADA RECOMMENDED LIMIT 4.0 - 6.0 ADA THERAPEUTIC TARGET < 7.0 ACTION SUGGESTED > 7.0 Performed By: #### P OCGLUC #### [facility] [address] [address] [address] Kerrie Stark Glucose [Mass/Vol] 206 mg/dL Normal [facility] Comment on above: Performed By: #### P OCGLUC #### [facility] [address] [place] [address] Dr. Kerrie Stark HbA1c (Bld) [Mass fraction] 8.8 % Critically high 4.5-6.2 [facility] Comment on above: Performed By: #### P OCGLUC #### [facility] [address] [place] [address] Dr. Kerrie Stark LIPID PROFILEon 04-19-2022 CHOL-HDL RATIO NORM SEE BELOW Normal [facility] Comment on above: Result Comment: 3.3 - 4.4 LOW RISK 4.4 - 7.1 AVERAGE RISK 7.1 - 11.0 MODERATE RISK >11.0 HIGH RISK Performed By: #### D DIM #### [facility] [address] [place] [address] Dr. Kerrie Stark Cholesterol [Mass/Vol] 134 mg/dL Normal <=200 [facility] Comment on above: Performed By: #### D DIM #### [facility] [address] [place] [address] Dr. Kerrie Stark Cholesterol in HDL [Mass/Vol] 46 mg/dL Normal 40-60 [facility] Comment on above: Performed By: #### D DIM #### [facility] [address] [place] [address] Dr. Kerrie Stark Cholesterol in LDL [Mass/Vol] 65.8 mg/dL Normal [facility] Comment on above: Performed By: #### D DIM #### [facility] [address] [place] [address] Dr. Kerrie Stark Cholesterol.total/Chol esterol in HDL [Mass ratio] 2.9 {ratio} Normal [facility] Comment on above: Performed By: #### D DIM #### [facility] [address] [address] [address] Kerrie Stark HDL NORMAL > or = 60 mg/dl - LOW CARDIOVASCULAR RISK <40 mg/dl - HIGH CARDIOVASCULAR RISK Normal [facility] Comment on above: Performed By: #### D DIM #### [facility] [address] [address] [address] Kerrie Stark LDL CALC NORMAL SEE BELOW Normal [facility] Comment on above: Result Comment: <100 mg/dl OPTIMAL 100 - 129 mg/dl NEAR OR ABOVE OPTIMAL 130 - 159 mg/dl BORDERLINE HIGH 160 - 189 mg/dl HIGH >190 mg/dl VERY HIGH Performed By: #### D DIM #### [facility] [address] [address] [address] Kerrie Stark Triglyceride [Mass/Vol] 111 mg/dL Normal <=150 [facility] Comment on above: Performed By: #### D DIM #### [facility] [address] [address] [address] Kerrie Stark VLDL CALC 22.2 mg/dL Normal [facility] Comment on above: Performed By: #### D DIM #### [facility] [address] [address] [address] Kerrie Stark PROF 14(COMP METB)on 023 Albumin [Mass/Vol] 2.6 g/dL Critically low 3.4-5.0 [facility] Comment on above: Performed By: #### D DIM #### [facility] [address] [address] [address] Kerrie Stark Albumin/Globulin [Mass ratio] 0.8 {ratio} Normal [facility] Comment on above: Performed By: #### D DIM #### [facility] [address] [address] [address] Kerrie Stark ALP [Catalytic activity/Vol] 49 U/L Normal 46-116 [facility] Comment on above: Performed By: #### D DIM #### [facility] [address] [address] [address] Kerrie Stark ALT [Catalytic activity/Vol] 27 U/L Normal 16-63 [facility] Comment on above: Performed By: #### D DIM #### [facility] [address] [address] [address] Kerrie Stark Anion gap [Moles/Vol] 12.1 mmol/L Normal [facility] Comment on above: Performed By: #### D DIM #### [facility] [address] [address] [address] Kerrie Stark AST [Catalytic activity/Vol] 19 U/L Normal 15-37 [facility] Comment on above: Performed By: #### D DIM #### [facility] [address] [place] [address] Dr. Kerrie Stark Bilirubin [Mass/Vol] 0.6 mg/dL Normal 0.2-1.0 [facility] Comment on above: Performed By: #### D DIM #### [facility] [address] [place] [address] Dr. Kerrie Stark Calcium [Mass/Vol] 9.0 mg/dL Normal 8.5-10.1 [facility] Comment on above: Performed By: #### D DIM #### [facility] [address] [place] [address] Dr. Kerrie Stark Chloride [Moles/Vol] 102 mmol/L Normal 98-107 [facility] Comment on above: Performed By: #### D DIM #### [facility] [address] [address] [address] Kerrie Stark CO2 [Moles/Vol] 27.0 mmol/L Normal 21.0-32.0 [facility] Comment on above: Performed By: #### D DIM #### [facility] [address] [place] [address] Dr. Kerrie Stark Creatinine [Mass/Vol] 0.90 mg/dL Normal 0.70-1.30 [facility] Comment on above: Performed By: #### D DIM #### [facility] [address] [address] [address] Kerrie Satrk EGFR-AF ETHIOPIAN >60 Normal >=60 [facility] Comment on above: Performed By: #### D DIM #### [facility] [address] [address] [address] Kerrie Stark EGFR-NON AF ETHIOPIAN >60 Normal >=60 [facility] Comment on above: Performed By: #### D DIM #### [facility] [address] [address] [address] Kerrie Stark Globulin (S) [Mass/Vol] 3.2 g/dL Normal [facility] Comment on above: Performed By: #### D DIM #### [facility] [address] [address] [address] Kerrie Stark Glucose [Mass/Vol] 104 mg/dL Normal 74-106 [facility] Comment on above: Performed By: #### D DIM #### [facility] [address] [address] [address] Kerrie Stark Potassium [Moles/Vol] 4.1 mmol/L Normal 3.5-5.1 [facility] Comment on above: Performed By: #### D DIM #### [facility] [address] [place] [address] Dr. Kerrie Stark Protein [Mass/Vol] 5.8 g/dL Critically low 6.4-8.2 [facility] Comment on above: Performed By: #### D DIM #### [facility] [address] [address] [address] Kerrie Stark Sodium [Moles/Vol] 137 mmol/L Normal 136-145 [facility] Comment on above: Performed By: #### D DIM #### [facility] [address] [address] [address] Kerrie Stark Urea nitrogen [Mass/Vol] 31.0 mg/dL Critically high 7.0-18.0 [facility] Comment on above: Performed By: #### D DIM #### [facility] [address] [address] [address] Kerrie Stark Urea nitrogen/Creatinine [Mass ratio] 34.4 mg/mg Normal [facility] Comment on above: Performed By: #### D DIM #### [facility] [address] [place] [address] Dr. Kerrie Stark TSHon 04-19-2022 TSH 0.699 uIU/mL Normal 0.358-3.740 [facility] Comment on above: Performed By: #### D DIM #### [facility] [address] [place] [address] Dr. Kerrie Stark VITAMIN D 25 OHon 04-19-2022 VIT D 25-OH 53.9 ng/mL Normal [facility] Comment on above: Performed By: #### D DIM #### [facility] [address] [place] [address] Dr. Kerrie Stark VIT D RANGES SEE BELOW Normal [facility] Comment on above: Result Comment: <20 ng/mL Vit D deficient 20 - <30 ng/mL Vit D insufficient 30 - 100 ng/mL Vit D sufficient >100 ng/mL Potential Toxicity Performed By: #### D DIM #### [facility] [address] [place] [address] Dr. Kerrie Stark CBC W MANUAL DIFFon 04-08-19 23 ATYPICAL LYMPH # Normal [facility] Comment on above: Performed By: #### L ACT #### [facility] [address] [place] [address] Dr. Kerrie Stark ATYPICAL LYMPH % Normal [facility] Comment on above: Performed By: #### L ACT #### [facility] [address] [place] [address] Dr. Kerrie Stark BAND # 0.0 103/ul Normal 0.0-0.3 [facility] Comment on above: Performed By: #### L ACT #### [facility] [address] [place] [address] Dr. Kerrie Stark BAND % 0 % Normal 0-5 [facility] Comment on above: Performed By: #### L ACT #### [facility] [address] [place] [address] Dr. Kerrie Stark BASOM # 0.00 103/ul Normal 0.00-0.10 [facility] Comment on above: Performed By: #### L ACT #### [facility] [address] [place] [address] Dr. Kerrie Stark BASOM % 0.0 % Critically low 0.2-2.0 [facility] Comment on above: Performed By: #### L ACT #### [facility] [address] [place] [address] Dr. Kerrie Stark BLAST # Normal [facility] Comment on above: Performed By: #### L ACT #### [facility] [address] [place] [address] Dr. Kerrie Stark BLAST % Normal [facility] Comment on above: Performed By: #### L ACT #### [facility] [address] [place] [address] Dr. Kerrie Stark CORRECTED WBC Normal 4.0-11.0 [facility] Comment on above: Performed By: #### L ACT #### [facility] [address] [place] [address] Dr. Kerrie Stark EOS # 0.00 103/ul Normal 0.00-0.70 [facility] Comment on above: Performed By: #### L ACT #### [facility] [address] [place] [address] Dr. Kerrie Stark EOS% 0.0 % Critically low 0.9-7.0 [facility] Comment on above: Performed By: #### L ACT #### [facility] [address] [place] [address] Dr. Kerrie Stark HCT 36.7 % Critically low 42.0-54.0 [facility] Comment on above: Performed By: #### L ACT #### [facility] [facility] [address] [place] [address] Dr. Kerrie Stark HGB 12.5 g/dl Critically low 14.0-18.0 [facility] Comment on above: Performed By: #### L ACT #### [facility] [address] [place] [address] Dr. Kerrie Stark LYMPHM # 0.22 103/ul Critically low 1.20-3.80 [facility] Comment on above: Performed By: #### L ACT #### [facility] [address] [place] [address] Dr. Kerrie Stark LYMPHM% 2.0 % Critically low 20.5-60.0 [facility] Comment on above: Performed By: #### L ACT #### [facility] [address] [place] [address] Dr. Kerrie Stark MCH 32.6 pg Normal 25.9-34.0 [facility] Comment on above: Performed By: #### L ACT #### [facility] [address] [place] [address] Dr. Kerrie Stark MCHC 34.1 g/dl Normal 29.9-35.2 [facility] Comment on above: Performed By: #### L ACT #### [facility] [address] [place] [address] Dr. Kerrie Stark MCV 95.8 fL Critically high 80.0-94.0 [facility] Comment on above: Performed By: #### L ACT #### [facility] [address] [place] [address] Dr. Kerrie Stark METAMYELOCYTE # Normal [facility] Comment on above: Performed By: #### L ACT #### [facility] [address] [place] [address] Dr. Kerrie Stark METAMYELOCYTE % Normal [facility] Comment on above: Performed By: #### L ACT #### [facility] [address] [place] [address] Dr. Kerrie Stark MONOM# 0.34 103/ul Normal 0.30-0.80 [facility] Comment on above: Performed By: #### L ACT #### [facility] [address] [place] [address] Dr. Kerrie Stark MONOM% 3.0 % Normal 1.7-12.0 [facility] Comment on above: Performed By: #### L ACT #### [facility] [address] [place] [address] Dr. Kerrie Stark MPV 10.9 fL Normal 9.5-13.5 [facility] Comment on above: Performed By: #### L ACT #### [facility] [address] [address] [address] Kerrie Stark MYELOCYTE # 0.1 103/ul Normal [facility] Comment on above: Performed By: #### L ACT #### [facility] [address] [address] [address] Kerrie Stark MYELOCYTE % 1 % Normal [facility] Comment on above: Performed By: #### L ACT #### [facility] [address] [place] [address] Dr. Kerrie Stark NRBC Normal [facility] Comment on above: Performed By: #### L ACT #### [facility] [address] [place] [address] Dr. Kerrie Stark PLT 140 103/ul Critically low 150-450 [facility] Comment on above: Performed By: #### L ACT #### [facility] [address] [place] [address] Dr. Kerrie Stark RBC 3.83 106/ul Critically low 4.70-6.10 [facility] Comment on above: Performed By: #### L ACT #### [facility] [address] [place] [address] Dr. Kerrie Stark RDW 12.9 % Normal 11.0-15.0 [facility] Comment on above: Performed By: #### L ACT #### [facility] [address] [address] [address] Kerrie Stark SEG # 10.53 103/ul Critically high 1.40-6.50 [facility] Comment on above: Performed By: #### L ACT #### [facility] [address] [place] [address] Dr. Kerrie Stark SEG % 94.0 % Critically high 43.0-75.0 [facility] Comment on above: Performed By: #### L ACT #### [facility] [address] [place] [address] Dr. Kerrie Stark WBC 11.2 103/ul Critically high 4.0-11.0 [facility] Comment on above: Performed By: #### L ACT #### [facility] [address] [place] [address] Dr. Kerrie Stark Covid-19 PCR ([facility])on 03-22 SARS-CoV-2 (COVID-19) RNA QUE+probe Ql (Unsp spec) Detected Abnormal NOT DETECTED [facility] Comment on above: Result Comment: This test is not yet approved or cleared by the [place] FDA. When there are no FDA-approved or cleared tests available, and other criteria are met, FDA can make tests available under an emergency access mechanism called an Emergency Use Authorization (EUA). The EUA for this test is supported by the [place] of Health and Human Service's declaration that circumstances exist to justify the emergency use of in vitro diagnostics for the detection and/or diagnosis of the virus that causes COVID-19. This EUA will remain in effect for the duration of the COVID-19 declaration justifying emergency of IVDs, unless it is terminated or revoked by the FDA (after which the test may no longer be used). Performed By: #### L ACT #### [facility] [address] [place] [address] Dr. Kerrie Stark LACTATE/LACTIC ACIDon 2022 Lactate [Moles/Vol] 1.3 mmol/L Normal 0.4-1.9 [facility] Comment on above: Performed By: #### L ACT #### [facility] [address] [place] [address] Dr. Kerrie Stark POINT OF CARE GLUCOSEon 03-22 Glucose [Mass/Vol] 344 mg/dL Critically high 74-106 [facility] Comment on above: Performed By: #### L ACT #### [facility] [address] [place] [address] Dr. Kerrie Stark Glucose [Mass/Vol] 242 mg/dL Critically high 74-106 [facility] Comment on above: Performed By: #### P OCGLUC #### [facility] [address] [place] [address] Dr. Kerrie Stark PROCALCITONINon 04-08-2022 Procalcitonin 0.06 ng/mL Normal 0.00-0.08 [facility] Comment on above: Result Comment: . A procalcitonin (PCT) level above 2.0 ng/mL on the first day of ICU admission is associated with a high risk for progression to severe sepsis and/or septic shock. . A PCT level below 0.5 ng/mL on the first day of ICU admission is associated with a low risk for progression to severe sepsis and/or septic shock. . Note: Concentrations <0.5 ng/mL do not exclude an infection, on account of localized infections (without systemic signs) which can be associated with such low concentrations, or a systemic infection in its initial stages (<6 hours). Furthermore, increased procalcitonin can occur without infection. PCT concentrations between 0.5 and 2.0 ng/mL should be interpreted taking into account the patient's history. It is recommended to retest PCT within 6-24 hours if any concentrations <2 ng/mL are obtained. Performed By: #### D DIM #### [facility] [address] [place] [address] Dr. Kerrie Stark PROF 14(COMP METB)on 023 Albumin [Mass/Vol] 2.0 g/dL Critically low 3.4-5.0 [facility] Comment on above: Performed By: #### P OCGLUC #### [facility] [address] [place] [address] Dr. Kerrie Stark Albumin/Globulin [Mass ratio] 0.5 {ratio} Normal [facility] Comment on above: Performed By: #### P OCGLUC #### [facility] [address] [place] [address] Dr. Kerrie Stark ALP [Catalytic activity/Vol] 61 U/L Normal 46-116 [facility] Comment on above: Performed By: #### P OCGLUC #### [facility] [address] [place] [address] Dr. Kerrie Stark ALT [Catalytic activity/Vol] 33 U/L Normal 16-63 [facility] Comment on above: Performed By: #### P OCGLUC #### [facility] [address] [address] [address] Kerrie Stark Anion gap [Moles/Vol] 13.2 mmol/L Normal [facility] Comment on above: Performed By: #### P OCGLUC #### [facility] [address] [address] [address] Kerrie Stark AST [Catalytic activity/Vol] 27 U/L Normal 15-37 [facility] Comment on above: Performed By: #### P OCGLUC #### [facility] [address] [address] [address] Kerrie Stark Bilirubin [Mass/Vol] 0.3 mg/dL Normal 0.2-1.0 [facility] Comment on above: Performed By: #### P OCGLUC #### [facility] [address] [place] [address] Dr. Kerrie Stark Calcium [Mass/Vol] 8.7 mg/dL Normal 8.5-10.1 [facility] Comment on above: Performed By: #### P OCGLUC #### [facility] [address] [address] [address] Kerrie Stark Chloride [Moles/Vol] 102 mmol/L Normal 98-107 [facility] Comment on above: Performed By: #### P OCGLUC #### [facility] [address] [address] [address] Kerrie Stark CO2 [Moles/Vol] 22.0 mmol/L Normal 21.0-32.0 [facility] Comment on above: Performed By: #### P OCGLUC #### [facility] [address] [place] [address] Dr. Kerrie Stark Creatinine [Mass/Vol] 0.88 mg/dL Normal 0.70-1.30 [facility] Comment on above: Performed By: #### P OCGLUC #### [facility] [address] [place] [address] Dr. Kerrie Stark EGFR-AF ETHIOPIAN >60 Normal >=60 [facility] Comment on above: Performed By: #### P OCGLUC #### [facility] [address] [address] [address] Kerrie Stark EGFR-NON AF ETHIOPIAN >60 Normal >=60 [facility] Comment on above: Performed By: #### P OCGLUC #### [facility] [address] [address] [address] Kerrie Stark Globulin (S) [Mass/Vol] 3.7 g/dL Normal [facility] Comment on above: Performed By: #### P OCGLUC #### [facility] [address] [address] [address] Kerrie Stark Glucose [Mass/Vol] 266 mg/dL Critically high 74-106 [facility] Comment on above: Performed By: #### P OCGLUC #### [facility] [address] [place] [address] Dr. Kerrie Stark Potassium [Moles/Vol] 4.2 mmol/L Normal 3.5-5.1 [facility] Comment on above: Performed By: #### P OCGLUC #### [facility] [address] [place] [address] Dr. Kerrie Stark Protein [Mass/Vol] 5.7 g/dL Critically low 6.4-8.2 [facility] Comment on above: Performed By: #### P OCGLUC #### [facility] [address] [place] [address] Dr. Kerrie Stark Sodium [Moles/Vol] 133 mmol/L Critically low 136-145 [facility] Comment on above: Performed By: #### P OCGLUC #### [facility] [address] [place] [address] Dr. Kerrie Stark Urea nitrogen [Mass/Vol] 21.0 mg/dL Critically high 7.0-18.0 [facility] Comment on above: Performed By: #### P OCGLUC #### [facility] [address] [place] [address] Dr. Kerrie Stark Urea nitrogen/Creatinine [Mass ratio] 23.9 mg/mg Normal [facility] Comment on above: Performed By: #### P OCGLUC #### [facility] [address] [place] [address] Dr. Kerrie Stark CBC W MANUAL DIFFon 04-07-19 23 ATYPICAL LYMPH # 0.14 103/ul Normal [facility] Comment on above: Performed By: #### L ACT #### [facility] [address] [place] [address] Dr. Kerrie Stark ATYPICAL LYMPH % 1 % Normal [facility] Comment on above: Performed By: #### L ACT #### [facility] [address] [address] [address] Kerrie Stark BAND # 0.0 103/ul Normal 0.0-0.3 [facility] Comment on above: Performed By: #### L ACT #### [facility] [address] [address] [address] Kerrie Stark BAND % 0 % Normal 0-5 [facility] Comment on above: Performed By: #### L ACT #### [facility] [address] [place] [address] Dr. Kerrie Stark BASOM # 0.00 103/ul Normal 0.00-0.10 [facility] Comment on above: Performed By: #### L ACT #### [facility] [address] [place] [address] Dr. Kerrie Stark BASOM % 0.0 % Critically low 0.2-2.0 [facility] Comment on above: Performed By: #### L ACT #### [facility] [address] [place] [address] Dr. Kerrie Stark BLAST # Normal [facility] Comment on above: Performed By: #### L ACT #### [facility] [address] [place] [address] Dr. Kerrie Stark BLAST % Normal [facility] Comment on above: Performed By: #### L ACT #### [facility] [address] [place] [address] Dr. Kerrie Stark CORRECTED WBC Normal 4.0-11.0 [facility] Comment on above: Performed By: #### L ACT #### [facility] [address] [address] [address] Kerrie Stark EOS # 0.00 103/ul Normal 0.00-0.70 [facility] Comment on above: Performed By: #### L ACT #### [facility] [address] [address] [address] Kerrie Stark EOS% 0.0 % Critically low 0.9-7.0 [facility] Comment on above: Performed By: #### L ACT #### [facility] [address] [address] [address] Kerrie Stark HCT 35.9 % Critically low 42.0-54.0 [facility] Comment on above: Performed By: #### L ACT #### [facility] [address] [address] [address] Kerrie Stark HGB 12.0 g/dl Critically low 14.0-18.0 [facility] Comment on above: Performed By: #### L ACT #### [facility] [address] [address] [address] Kerrie Stark LYMPHM # 0.28 103/ul Critically low 1.20-3.80 [facility] Comment on above: Performed By: #### L ACT #### [facility] [address] [address] [address] Kerrie Stark LYMPHM% 2.0 % Critically low 20.5-60.0 [facility] Comment on above: Performed By: #### L ACT #### [facility] [address] [address] [address] Kerrie Stark MCH 32.6 pg Normal 25.9-34.0 [facility] Comment on above: Performed By: #### L ACT #### [facility] [address] [address] [address] Kerrie Stark MCHC 33.4 g/dl Normal 29.9-35.2 [facility] Comment on above: Performed By: #### L ACT #### [facility] [address] [address] [address] Kerrie Stark MCV 97.6 fL Critically high 80.0-94.0 [facility] Comment on above: Performed By: #### L ACT #### [facility] [address] [place] [address] Dr. Kerrie Stark METAMYELOCYTE # Normal [facility] Comment on above: Performed By: #### L ACT #### [facility] [address] [place] [address] Dr. Kerrie Stark METAMYELOCYTE % Normal [facility] Comment on above: Performed By: #### L ACT #### [facility] [address] [place] [address] Dr. Kerrie Stark MONOM# 0.00 103/ul Critically low 0.30-0.80 [facility] Comment on above: Performed By: #### L ACT #### [facility] [address] [place] [address] Dr. Kerrie Stark MONOM% 0.0 % Critically low 1.7-12.0 [facility] Comment on above: Performed By: #### L ACT #### [facility] [address] [place] [address] Dr. Kerrie Stark MPV 10.6 fL Normal 9.5-13.5 [facility] Comment on above: Performed By: #### L ACT #### [facility] [address] [place] [address] Dr. Kerrie Stark MYELOCYTE # Normal [facility] Comment on above: Performed By: #### L ACT #### [facility] [address] [place] [address] Dr. Kerrie Stark MYELOCYTE % Normal [facility] Comment on above: Performed By: #### L ACT #### [facility] [address] [place] [address] Dr. Kerrie Stark NRBC Normal [facility] Comment on above: Performed By: #### L ACT #### [facility] [address] [place] [address] Dr. Kerrie Stark PLT 125 103/ul Critically low 150-450 [facility] Comment on above: Performed By: #### L ACT #### [facility] [address] [place] [address] Dr. Kerrie Stark RBC 3.68 106/ul Critically low 4.70-6.10 [facility] Comment on above: Performed By: #### L ACT #### [facility] [address] [address] [address] Kerrie Stark RDW 13.2 % Normal 11.0-15.0 [facility] Comment on above: Performed By: #### L ACT #### [facility] [address] [address] [address] Kerrie Stark SEG # 13.77 103/ul Critically high 1.40-6.50 [facility] Comment on above: Performed By: #### L ACT #### [facility] [address] [address] [address] Kerrie Stark SEG % 97.0 % Critically high 43.0-75.0 [facility] Comment on above: Performed By: #### L ACT #### [facility] [address] [place] [address] Dr. Kerrie Stark TOXIC GRANULATION 2+ Normal [facility] Comment on above: Performed By: #### L ACT #### [facility] [address] [address] [address] Kerrie Stark WBC 14.2 103/ul Critically high 4.0-11.0 [facility] Comment on above: Performed By: #### L ACT #### [facility] [address] [place] [address] Dr. Kerrie Stark [facility] SARS-CoV-2 (COVID-19) RNA QUE+probe Ql (Unsp spec) Detected Abnormal NOT DETECTED [facility] Comment on above: Result Comment: This test is not yet approved or cleared by the [place] FDA. When there are no FDA-approved or cleared tests available, and other criteria are met, FDA can make tests available under an emergency access mechanism called an Emergency Use Authorization (EUA). The EUA for this test is supported by the [place] of Health and Human Service's declaration that circumstances exist to justify the emergency use of in vitro diagnostics for the detection and/or diagnosis of the virus that causes COVID-19. This EUA will remain in effect for the duration of the COVID-19 declaration justifying emergency of IVDs, unless it is terminated or revoked by the FDA (after which the test may no longer be used). Performed By: #### L ACT #### [facility] [address] [address] [address] Kerrie Stark LACTATE/LACTIC ACIDon 2022 Lactate [Moles/Vol] 1.1 mmol/L Normal 0.4-1.9 [facility] Comment on above: Performed By: #### P OCGLUC #### [facility] [address] [place] [address] Dr. Kerrie Stark POINT OF CARE GLUCOSEon 03-22 Glucose [Mass/Vol] 316 mg/dL Critically high 74-106 [facility] Comment on above: Performed By: #### P OCGLUC #### [facility] [address] [place] [address] Dr. Kerrie Stark Glucose [Mass/Vol] 182 mg/dL Critically high -106 [facility] Comment on above: Performed By: #### P OCGLUC #### [facility] [address] [place] [address] Dr. Kerrie Stark Glucose [Mass/Vol] 318 mg/dL Critically high -106 [facility] Comment on above: Performed By: #### P OCGLUC #### [facility] [address] [place] [address] Dr. Kerrie Stark PROF 14(COMP METB)on 023 Albumin [Mass/Vol] 1.9 g/dL Critically low 3.4-5.0 [facility] Comment on above: Performed By: #### P OCGLUC #### [facility] [address] [place] [address] Dr. Kerrie Stark Albumin/Globulin [Mass ratio] 0.5 {ratio} Normal [facility] Comment on above: Performed By: #### P OCGLUC #### [facility] [address] [place] [address] Dr. Kerrie Stark ALP [Catalytic activity/Vol] 50 U/L Normal 46-116 [facility] Comment on above: Performed By: #### P OCGLUC #### [facility] [address] [address] [address] Kerrie Stark ALT [Catalytic activity/Vol] 24 U/L Normal 16-63 [facility] Comment on above: Performed By: #### P OCGLUC #### [facility] [address] [address] [address] Kerrie Stark Anion gap [Moles/Vol] 12.9 mmol/L Normal [facility] Comment on above: Performed By: #### P OCGLUC #### [facility] [address] [address] [address] Kerrie Stark AST [Catalytic activity/Vol] 19 U/L Normal 15-37 [facility] Comment on above: Performed By: #### P OCGLUC #### [facility] [address] [address] [address] Kerrie Stark Bilirubin [Mass/Vol] 0.3 mg/dL Normal 0.2-1.0 [facility] Comment on above: Performed By: #### P OCGLUC #### [facility] [address] [address] [address] Kerrie Stark Calcium [Mass/Vol] 8.5 mg/dL Normal 8.5-10.1 [facility] Comment on above: Performed By: #### P OCGLUC #### [facility] [address] [address] [address] Kerrie Stark Chloride [Moles/Vol] 103 mmol/L Normal 98-107 [facility] Comment on above: Performed By: #### P OCGLUC #### [facility] [address] [address] [address] Kerrie Stark CO2 [Moles/Vol] 22.2 mmol/L Normal 21.0-32.0 [facility] Comment on above: Performed By: #### P OCGLUC #### [facility] [address] [address] [address] Kerrie Stark Creatinine [Mass/Vol] 1.17 mg/dL Normal 0.70-1.30 [facility] Comment on above: Performed By: #### P OCGLUC #### [facility] [address] [address] [address] Kerrie Stark EGFR-AF ETHIOPIAN >60 Normal >=60 [facility] Comment on above: Performed By: #### P OCGLUC #### [facility] [address] [address] [address] Kerrie Stark EGFR-NON AF ETHIOPIAN 60 mL/min/1.73m2 Normal >=60 [facility] Comment on above: Performed By: #### P OCGLUC #### [facility] [address] [address] [address] Kerrie Stark Globulin (S) [Mass/Vol] 3.8 g/dL Normal [facility] Comment on above: Performed By: #### P OCGLUC #### [facility] [address] [address] [address] Kerrie Stark Glucose [Mass/Vol] 283 mg/dL Critically high 74-106 [facility] Comment on above: Performed By: #### P OCGLUC #### [facility] [address] [address] [address] Kerrie Stark Potassium [Moles/Vol] 4.1 mmol/L Normal 3.5-5.1 [facility] Comment on above: Performed By: #### P OCGLUC #### [facility] [address] [address] [address] Kerrie Stark Protein [Mass/Vol] 5.7 g/dL Critically low 6.4-8.2 [facility] Comment on above: Performed By: #### P OCGLUC #### [facility] [place] [facility] [address] [address] [address] Kerrie Stark Sodium [Moles/Vol] 134 mmol/L Critically low 136-145 Th [facility] Comment on above: Performed By: #### P OCGLUC #### [facility] [place] [facility] [address] [address] [address] Kerrie Stark Urea nitrogen [Mass/Vol] 23.0 mg/dL Critically high 7.0-18.0 [facility] Comment on above: Performed By: #### P OCGLUC #### [facility] [place] [facility] [address] [address] [address] Kerrie Stark Urea nitrogen/Creatinine [Mass ratio] 19.7 mg/mg Normal [facility] Comment on above: Performed By: #### P OCGLUC #### [facility] [place] [facility] [address] [address] [address] Kerrie Stark CULTURE SPUTUMon 04-06-2022 CULTURE SPUTUM Isolate 1 Grace albicans Light growth of Normal [facility] Comment on above: Performed By: #### S PUTCX #### [facility] [place] [facility] [address] [place] [address] Dr. Kerrie Stark CULTURE URINEon 04-06-2022 CULTURE URINE Culture Observations: NO GROWTH. Normal [facility] Comment on above: Performed By: #### U RCX #### [facility] [place] [facility] [address] [place] [address] Dr. Kerrie Stark ER URINE PROFILEon 3 Bilirubin Ql (U) Negative Normal NEGATIVE [facility] Comment on above: Performed By: #### P OCGLUC #### [facility] [place] [facility] [address] [place] [address] Dr. Kerrie Stark Clarity (U) CLEAR Normal CLEAR [facility] Comment on above: Performed By: #### P OCGLUC #### [facility] [place] [facility] [address] [place] [address] Dr. Kerrie Stark Color (U) YELLOW Normal YELLOW [facility] Comment on above: Performed By: #### P OCGLUC #### [facility] [place] [facility] [address] [place] [address] Dr. Kerrie BRNIK A micrscopic examination will be performed if indicated. Normal [facility] Comment on above: Performed By: #### P OCGLUC #### [facility] [place] [facility] [address] [place] [address] Dr. Kerrie Stark Glucose Ql (U) Negative Normal NEGATIVE [facility] [place] [facility] Comment on above: Performed By: #### P OCGLUC #### [facility] [place] [facility] [address] [place] [address] Dr. Kerrie Stark Hemoglobin Ql (U) Negative Normal NEGATIVE [facility] Comment on above: Performed By: #### P OCGLUC #### [facility] [place] [facility] [address] [address] [address] Kerrie Stark Ketones Ql (U) Negative Normal NEGATIVE [facility] Comment on above: Performed By: #### P OCGLUC #### [facility] [place] [facility] [address] [address] [address] Kerrie Stark LEUKOCYTES Negative Normal NEGATIVE [facility] Comment on above: Performed By: #### P OCGLUC #### [facility] [place] [facility] [address] [address] [address] Kerrie Stark Nitrite Ql (U) Negative Normal NEGATIVE [facility] [place] [facility] Comment on above: Performed By: #### P OCGLUC #### [facility] [place] [facility] [address] [address] [address] Kerrie Stark pH (U) 6.0 [pH] Normal 5-9 [facility] Comment on above: Performed By: #### P OCGLUC #### [facility] [place] [facility] [address] [address] [address] Kerrie Stark Protein (U) [Mass/Vol] 30 mg/dL Abnormal NEGAT LITTLE/ TRACE [facility] [place] Comment on above: Performed By: #### P OCGLUC #### [facility] [place] [facility] [address] [address] [address] Kerrie Stark SPEC GRAVITY 1.015 Normal 1.005-<=1.025 [facility] Comment on above: Performed By: #### P OCGLUC #### [facility] [place] [facility] [address] [address] [address] Kerrie Stark UR MICRO IND INDICATED Normal [facility] [place] Comment on above: Performed By: #### P OCGLUC #### [facility] [place] [facility] [address] [address] [address] Kerrie Stark Urobilinogen Qn (U) 0.2 {Ricky'U}/dL Normal 0.2 - 1. 0 [facility] Comment on above: Performed By: #### P OCGLUC #### [facility] [place] [facility] [address] [place] [address] Dr. Kerrie Stark POINT OF CARE GLUCOSEon 02-1 6-2023 Glucose [Mass/Vol] 301 mg/dL Critically high [address] [place] [address] Comment on above: Performed By: #### P OCGLUC #### [facility] [place] [facility] [address] [address] [address] Kerrie Stark Glucose [Mass/Vol] 272 mg/dL Critically high [facility] Comment on above: Performed By: #### P OCGLUC #### [facility] [place] [facility] [address] [address] [address] Kerrie Stark Glucose [Mass/Vol] 191 mg/dL Critically high [address] [place] [address] Comment on above: Performed By: #### P OCGLUC #### [facility] [place] [facility] [address] [address] [address] Kerrie Stark Glucose [Mass/Vol] 164 mg/dL Critically high [address] [place] [address] Comment on above: Performed By: #### C BC #### [facility] [place] [facility] [address] [address] [address] Kerrie Stark Glucose [Mass/Vol] 128 mg/dL Critically high [address] [place] [address] Comment on above: Performed By: #### P OCGLUC #### [facility] [place] [facility] [address] [address] [address] Kerrie Stark URINE MICROSCOPIC ONLYon BACTERIA SMALL Abnormal NONE SEEN [facility] Comment on above: Performed By: #### P OCGLUC #### [facility] [place] [facility] [address] [address] [address] Kerrie Stark Bacteria identified Cx Nom (U) INDICATED Normal [facility] [place] Comment on above: Performed By: #### P OCGLUC #### [facility] [place] [facility] [address] [address] [address] Kerrie Stark CAST SEEN Abnormal NONE SEEN [facility] Comment on above: Performed By: #### P OCGLUC #### [facility] [place] [facility] [address] [address] [address] Kerrie Stark Crystals LM Nom (Urine sed) NONE SEEN Normal NONE SEEN [facility] Comment on above: Performed By: #### P OCGLUC #### [facility] [place] [facility] [address] [address] [address] Kerrie Stark Epithelial cells LM Ql (Urine sed) RARE Normal NONE SEEN /RARE [facility] [place] Comment on above: Performed By: #### P OCGLUC #### [facility] [place] [facility] [address] [address] [address] Kerrie Stark HYALINE CAST RARE Normal [facility] [place] Comment on above: Performed By: #### P OCGLUC #### [facility] [place] [facility] [address] [address] [address] Kerrie Stark MUCOUS TRACE Abnormal NONE SEEN [facility] Comment on above: Performed By: #### P OCGLUC #### [facility] [place] [facility] [address] [place] [address] Dr. Kerrie Stark RBC 0-2 Normal 0-2 [facility] Comment on above: Performed By: #### P OCGLUC #### [facility] [place] [facility] [address] [place] [address] Dr. Kerrie Stark WBC 0-2 Abnormal NONE SEEN [facility] Comment on above: Performed By: #### P OCGLUC #### [facility] [place] [facility] [address] [place] [address] Dr. Kerrie Stark BNPon 04-05-2022 Natriuretic peptide B (Bld) [Mass/Vol] 394.0 pg/mL Normal <=1,800.0 [facility] Comment on above: Performed By: #### C BC #### [facility] [place] [facility] [address] [place] [address] Dr. Kerrie Stark CBC W MANUAL DIFFon 04-05-19 ATYPICAL LYMPH # Normal [facility] Comment on above: Performed By: #### P OCGLUC #### [facility] [place] [facility] [address] [place] [address] Dr. Kerrie Stark ATYPICAL LYMPH % Normal [facility] Comment on above: Performed By: #### P OCGLUC #### [facility] [place] [facility] [address] [place] [address] Dr. Kerrie Stark BAND # Normal 0.0-0.3 [facility] [place] Comment on above: Performed By: #### P OCGLUC #### [facility] [place] [facility] [address] [address] [address] Kerrie Stark BAND % Normal 0-5 [facility] [place] Comment on above: Performed By: #### P OCGLUC #### [facility] [place] [facility] [address] [address] [address] Kerrie Stark BASOM # 0.00 103/ul Normal 0.00-0.10 [facility] [place] Comment on above: Performed By: #### P OCGLUC #### [facility] [place] [facility] [address] [address] [address] Kerrie Stark BASOM % 0.0 % Critically low 0.2-2.0 [facility] [place] [facility] Comment on above: Performed By: #### P OCGLUC #### [facility] [place] [facility] [address] [address] [address] Kerrie Stark BLAST # Normal [facility] Comment on above: Performed By: #### P OCGLUC #### [facility] [place] [facility] [address] [address] [address] Kerrie Stark BLAST % Normal [facility] Comment on above: Performed By: #### P OCGLUC #### [facility] [place] [facility] [address] [address] [address] Kerrie Stark CORRECTED WBC Normal 4.0-11.[address] [facility] Comment on above: Performed By: #### P OCGLUC #### [facility] [place] [facility] [address] [place] [address] Dr. Kerrie Stark EOS # 0.00 103/ul Normal 0.00-0.70 [facility] [place] Comment on above: Performed By: #### P OCGLUC #### [facility] [place] [facility] [address] [address] [address] Kerrie Stark EOS% 0.0 % Critically low 0.9-7.0 [facility] Comment on above: Performed By: #### P OCGLUC #### [facility] [place] [facility] [address] [address] [address] Kerrie Stark HCT 43.5 % Normal 42.0-54.0 [facility] Comment on above: Performed By: #### P OCGLUC #### [facility] [place] [facility] [address] [address] [address] Kerrie Stark HGB 14.7 g/dl Normal 14.0-18.0 [facility] Comment on above: Performed By: #### P OCGLUC #### [facility] [place] [facility] [address] [address] [address] Kerrie Stark LYMPHM # 0.78 103/ul Critically low 1.20-3.80 [facility] Comment on above: Performed By: #### P OCGLUC #### [facility] [place] [facility] [address] [address] [address] Kerrie Stark LYMPHM% 4.0 % Critically low 20.5-60.0 [facility] Comment on above: Performed By: #### P OCGLUC #### [facility] [place] [facility] [address] [place] [address] Dr. Kerrie Stark MCH 32.5 pg Normal 25.9-34.0 [facility] Comment on above: Performed By: #### P OCGLUC #### [facility] [place] [facility] [address] [address] [address] Kerrie Stark MCHC 33.8 g/dl Normal 29.9-35.2 [facility] Comment on above: Performed By: #### P OCGLUC #### [facility] [place] [facility] [address] [address] [address] Kerrie Stark MCV 96.2 fL Critically high 80.0-94.0 [facility] Comment on above: Performed By: #### P OCGLUC #### [facility] [place] [facility] [address] [address] [address] Kerrie Stark METAMYELOCYTE # Normal [facility] Comment on above: Performed By: #### P OCGLUC #### [facility] [place] [facility] [address] [address] [address] Kerrie Stark METAMYELOCYTE % Normal [facility] Comment on above: Performed By: #### P OCGLUC #### [facility] [place] [facility] [address] [address] [address] Kerrie Stark MONOM# 0.58 103/ul Normal 0.30-0.80 [facility] [place] Comment on above: Performed By: #### P OCGLUC #### [facility] [place] [facility] [address] [address] [address] Kerrie Stark MONOM% 3.0 % Normal 1.7-12.0 [facility] Comment on above: Performed By: #### P OCGLUC #### [facility] [place] [facility] [address] [address] [address] Kerrie Stark MPV 10.1 fL Normal 9.5-13.5 [facility] Comment on above: Performed By: #### P OCGLUC #### [facility] [place] [facility] [address] [address] [address] Kerrie Stark MYELOCYTE # Normal [facility] Comment on above: Performed By: #### P OCGLUC #### [facility] [place] [facility] [address] [address] [address] Kerrie Stark MYELOCYTE % Normal [facility] Comment on above: Performed By: #### P OCGLUC #### [facility] [place] [facility] [address] [address] [address] Kerrie Stark NRBC Normal [facility] Comment on above: Performed By: #### P OCGLUC #### [facility] [place] [facility] [address] [address] [address] Kerrie Stark PLT 181 103/ul Normal 150-450 [facility] Comment on above: Performed By: #### P OCGLUC #### [facility] [place] [facility] [address] [address] [address] Kerrie Stark RBC 4.52 106/ul Critically low 4.70-6.10 [facility] Comment on above: Performed By: #### P OCGLUC #### [facility] [place] [facility] [address] [address] [address] Kerrie Stark RDW 12.9 % Normal 11.0-15.0 [facility] Comment on above: Performed By: #### P OCGLUC #### [facility] [place] [facility] [address] [address] [address] Kerrie Stark SEG # 18.14 103/ul Critically high 1.40-6.50 [facility] Comment on above: Performed By: #### P OCGLUC #### [facility] [place] [facility] [address] [place], [place] [address] Dr. Kerrie Stark SEG % 93.0 % Critically high 43.0-75.0 [facility] Comment on above: Performed By: #### P OCGLUC #### [facility] [place] [facility] [address] [place], [place] [address] Dr. Kerrie Stark WBC 19.5 103/ul Critically high 4.0-11.0 [facility] Comment on above: Performed By: #### P OCGLUC #### [facility] [place] [facility] [address] [place], [place] [address] Dr. Kerrie Stark CTA CHEST WO W CONon 023 CTA CHEST WO W CON EXAMINATION: CTA CHEST WO W CON, 04/05/2022 HISTORY: SHORTNESS OF BREATH COMPARISON: Prior CT scan from 03/28/2022 TECHNIQUE: CT angiography of the chest following the administration of intravenous 100 mL of Omnipaque 350 iodine contrast. Coronal and sagittal MIP (maximum intensity projection) images were performed. Dose reduction techniques were achieved by using automated exposure control and/or adjustment of mA and/or kV according to patient size and/or use of iterative reconstruction technique. FINDINGS: Moderate atherosclerotic calcification of the thoracic aorta. No evidence of thoracic aortic aneurysm or dissection. Patent great vessels arising from the aortic arch without significant narrowing. Coronary artery calcification. No major pulmonary thromboembolism including the pulmonary artery, right and left pulmonary arteries and lobar branches. Study limited for evaluation the segmental and subsegmental pulmonary artery branches due to suboptimal bolus and motion artifacts. The lung windows demonstrate significant increase in infiltrates in the right middle lobe and the right lower lobe, with partial atelectasis. Groundglass infiltrate is also seen in the lingula and the left lung base. Underlying mild to moderate emphysematous changes. The central tracheobronchial airways are patent. No mediastinal or hilar lymph node enlargement. The esophagus is nondilated. Unremarkable thyroid gland. No pleural or pericardial effusion. Mild osteopenia of the thoracic spine with degenerative changes. No focal aggressive bone lesion. Scans through the upper abdomen demonstrate no obvious lesion in the visualized liver and spleen. Unremarkable adrenal glands. IMPRESSION: 1. Limited study for evaluation the pulmonary arteries due to suboptimal bolus and motion artifacts. No major pulmonary thromboembolism. 2. Patent thoracic aorta and great vessels with moderate atherosclerosis. No thoracic aortic aneurysm or dissection. 3. Multifocal infiltrates in both lungs, right more than left. These are significantly increased compared to the CT scan from 03/28/2022. 4. 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 Electronically authenticated by: BING ADAMS Date: 2022-04-05 20:31 Normal [facility] [place] CULTURE BLOODon 04-05-2022 Microscopic examination of blood, culture Culture Observations: NO GROWTH AT 5 DAYS. Normal [facility] [place] Comment on above: Performed By: #### C BC #### [facility] [place] [facility] [address] [place] [address] Dr. Kerrie Stark Microscopic examination of blood, culture Culture Observations: NO GROWTH AT 5 DAYS. Normal [facility] Comment on above: Performed By: #### B [id number] #### [facility] [place] [facility] [address] [place] [address] Dr. Kerrie Stark LACTATE/LACTIC ACIDon 2022 Lactate [Moles/Vol] 2.7 mmol/L Critically high 0.4-1.9 [facility] Comment on above: Performed By: #### P OCGLUC #### [facility] [place] [facility] [address] [place] [address] Dr. Kerrie Stark Lactate [Moles/Vol] 3.2 mmol/L Critically high 0.4-1.9 [facility] Comment on above: Performed By: #### D DIM #### [facility] [place] [facility] [address] [place] [address] Dr. Kerrie Stark PH VENOUS BLOODon 04-05-2022 PCO2 VENOUS 42.3 mmHg Normal 40.0-52.0 [facility] Comment on above: Performed By: #### P OCGLUC #### [facility] [place] [facility] [address] [place] [address] Dr. Kerrie Stark pH VENOUS 7.400 Normal 7.330-7.430 [facility] Comment on above: Performed By: #### P OCGLUC #### [facility] [place] [facility] [address] [place] [address] Dr. Kerrie Stark PROF 14(COMP METB)on 023 Albumin [Mass/Vol] 3.0 g/dL Critically low 3.4-5.0 [facility] Comment on above: Performed By: #### C BC #### [facility] [place] [facility] [address] [place] [address] Dr. Kerrie Stark Albumin/Globulin [Mass ratio] 0.7 {ratio} Normal [facility] Comment on above: Performed By: #### C BC #### [facility] [place] [facility] [address] [address] [address] Kerrie Stark ALP [Catalytic activity/Vol] 68 U/L Normal 46-116 [facility] Comment on above: Performed By: #### C BC #### [facility] [place] [facility] [address] [address] [address] Kerrie Stark ALT [Catalytic activity/Vol] 29 U/L Normal 16-63 [facility] Comment on above: Performed By: #### C BC #### [facility] [place] [facility] [address] [place] [address] Dr. Kerrie Stark Anion gap [Moles/Vol] 12.3 mmol/L Normal [facility] Comment on above: Performed By: #### C BC #### [facility] [place] [facility] [address] [place] [address] Dr. Kerrie Stark AST [Catalytic activity/Vol] 19 U/L Normal 15-37 [facility] Comment on above: Performed By: #### C BC #### [facility] [place] [facility] [address] [place] [address] Dr. Kerrie Stark Bilirubin [Mass/Vol] 0.7 mg/dL Normal 0.2-1.0 [facility] Comment on above: Performed By: #### C BC #### [facility] [place] [facility] [address] [place] [address] Dr. Kerrie Stark Calcium [Mass/Vol] 10.0 mg/dL Normal 8.5-10.1 [facility] Comment on above: Performed By: #### C BC #### [facility] [place] [facility] [address] [place] [address] Dr. Kerrie Stark Chloride [Moles/Vol] 96 mmol/L Critically low 98-107 [facility] Comment on above: Performed By: #### C BC #### [facility] [place] [facility] [address] [address] [address] Kerrie Stark CO2 [Moles/Vol] 27.7 mmol/L Normal 21.0-32.0 [facility] Comment on above: Performed By: #### C BC #### [facility] [place] [facility] [address] [address] [address] Kerrie Stark Creatinine [Mass/Vol] 1.18 mg/dL Normal 0.70-1.30 [facility] Comment on above: Performed By: #### C BC #### [facility] [place] [facility] [address] [address] [address] Kerrie Stark EGFR-AF ETHIOPIAN >60 Normal >=60 [facility] Comment on above: Performed By: #### C BC #### [facility] [place] [facility] [address] [place] [address] Dr. Kerrie Stark EGFR-NON AF ETHIOPIAN 59 mL/min/1.73m2 Critically low >=60 [facility] Comment on above: Performed By: #### C BC #### [facility] [place] [facility] [address] [place] [address] Dr. Kerrie Stark Globulin (S) [Mass/Vol] 4.5 g/dL Normal [facility] Comment on above: Performed By: #### C BC #### [facility] [place] [facility] [address] [place] [address] Dr. Kerrie Stark Glucose [Mass/Vol] 189 mg/dL Critically high 74-106 [facility] Comment on above: Performed By: #### C BC #### [facility] [place] [facility] [address] [place] [address] Dr. Kerrie Stark Potassium [Moles/Vol] 4.0 mmol/L Normal 3.5-5.1 [facility] Comment on above: Performed By: #### C BC #### [facility] [place] [facility] [address] [place] [address] Dr. Kerrie Stark Protein [Mass/Vol] 7.5 g/dL Normal 6.4-8.2 [facility] Comment on above: Performed By: #### C BC #### [facility] [place] [facility] [address] [place] [address] Dr. Kerrie Stark Sodium [Moles/Vol] 132 mmol/L Critically low 136-145 Th [facility] Comment on above: Performed By: #### C BC #### [facility] [place] [facility] [address] [place] [address] Dr. Kerrie Stark Urea nitrogen [Mass/Vol] 34.0 mg/dL Critically high 7.0-18.0 [facility] Comment on above: Performed By: #### C BC #### [facility] [place] [facility] [address] [place] [address] Dr. Kerrie Stark Urea nitrogen/Creatinine [Mass ratio] 28.8 mg/mg Normal [facility] Comment on above: Performed By: #### C BC #### [facility] [place] [facility] [address] [place] [address] Dr. Kerrie Stark PROTIMEon 04-05-2022 INR Coag (PPP) [Relative time] 1.00 {INR} Normal [facility] Comment on above: Performed By: #### P OCGLUC #### [facility] [place] [facility] [address] [place] [address] Dr. Kerrie Stark INR GUIDELINES SEE BELOW Normal [facility] [place] [facility] Comment on above: Result Comment: TOBY RED INR: 2.0 - 3.0 CONDITIONS NOT LISTED BELOW 2.5 - 3.5 FOR PROSTHETIC HEART VALVE REPLACEMENT 2.5 - 3.5 RECURRENT THROMBOSIS Performed By: #### P OCGLUC #### [facility] [place] [facility] [address] [place] [address] Dr. Kerrie Stark PT Coag (PPP) [Time] 10.6 s Normal 9.0-11.6 [facility] Comment on above: Performed By: #### P OCGLUC #### [facility] [place] [facility] [address] [place] [address] Dr. Kerrie Stark PTTon 04-05-2022 aPTT Coag (Bld) [Time] 28.5 s Normal 22.3-36.2 [facility] Comment on above: Performed By: #### P OCGLUC #### [facility] [place] [facility] [address] [place] [address] Dr. Kerrie Stark RESPIRATORY PANEL PLUSon Adenovirus Not detected Normal NOT DETECTED [facility] Comment on above: Performed By: #### L ACT #### [facility] [place] [facility] [address] [place] [address] Dr. Kerrie Velázquez Parapertusis Not detected Normal NOT DETECTED [facility] Comment on above: Performed By: #### L ACT #### [facility] [address] [place] [address] Dr. Kerrie Velázquez Pertussis Not detected Normal NOT DETECTED [facility] Comment on above: Performed By: #### L ACT #### [facility] [address] [place] [address] Dr. Kerrie Stark Chlamydia Pneumoniae Not detected Normal NOT DETECTED [facility] Comment on above: Performed By: #### L ACT #### [facility] [address] [place] [address] Dr. Kerrie Stark Coronavirus 229E Not detected Normal NOT DETECTED [facility] Comment on above: Performed By: #### L ACT #### [facility] [address] [place] [address] Dr. Kerrie Stark Coronavirus HKU1 Not detected Normal NOT DETECTED [facility] Comment on above: Performed By: #### L ACT #### [facility] [address] [place] [address] Dr. Kerrie Stark Coronavirus NL63 Not detected Normal NOT DETECTED [facility] Comment on above: Performed By: #### L ACT #### [facility] [address] [place] [address] Dr. Kerrie Stark Coronavirus OC43 Not detected Normal NOT DETECTED [facility] Comment on above: Performed By: #### L ACT #### [facility] [address] [place] [address] Dr. Kerrie Stark Influenza A H1 Not detected Normal NOT DETECTED [facility] Comment on above: Performed By: #### L ACT #### [facility] [address] [place] [address] Dr. Kerrie Stark Influenza A H1 2009 Not detected Normal NOT DETECTED [facility] Comment on above: Performed By: #### L ACT #### [facility] [address] [address] [address] Kerrie Stark Influenza A H3 Not detected Normal NOT DETECTED [facility] Comment on above: Performed By: #### L ACT #### [facility] [address] [address] [address] Kerrie Stark Influenza B Not detected Normal NOT DETECTED [facility] Comment on above: Performed By: #### L ACT #### [facility] [address] [address] [address] Kerrie Stark Metapneumovirus Not detected Normal NOT DETECTED [facility] Comment on above: Performed By: #### L ACT #### [facility] [address] [address] [address] Kerrie Stark Mycoplas. Pneumoniae Not detected Normal NOT DETECTED [facility] Comment on above: Performed By: #### L ACT #### [facility] [address] [address] [address] Kerrie Stark Parainfluenza 1 Not detected Normal NOT DETECTED [facility] Comment on above: Performed By: #### L ACT #### [facility] [address] [address] [address] Kerrie Stark Parainfluenza 2 Not detected Normal NOT DETECTED [facility] Comment on above: Performed By: #### L ACT #### [facility] [address] [address] [address] Kerrie Stark Parainfluenza 3 Not detected Normal NOT DETECTED [facility] Comment on above: Performed By: #### L ACT #### [facility] [address] [address] [address] Kerrie Stark Parainfluenza 4 Not detected Normal NOT DETECTED [facility] Comment on above: Performed By: #### L ACT #### [facility] [address] [address] [address] Kerrie Stark Rhino/Enterovirus Not detected Normal NOT DETECTED [facility] Comment on above: Performed By: #### L ACT #### [facility] [address] [place] [address] Dr. Kerrie Stark RP2 Header 1 RESPIRATORY PANEL: VIRUSES Normal [facility] Comment on above: Performed By: #### L ACT #### [facility] [address] [place] [address] Dr. Kerrie Stark RP2 Header 2 RESPIRATORY PANEL: BACTERIA Normal [facility] Comment on above: Performed By: #### L ACT #### [facility] [address] [place] [address] Dr. Kerrie Stark RSV Not detected Normal NOT DETECTED [facility] Comment on above: Performed By: #### L ACT #### [facility] [address] [place] [address] Dr. Kerrie Stark SARS-CoV-2 (COVID-19) RNA QUE+probe Ql (Unsp spec) Detected Abnormal NOT DETECTED [facility] Comment on above: Performed By: #### L ACT #### [facility] [address] [place] [address] Dr. Kerrie Stark TROPONIN, HIGH SENSITIVITYon 04-05-2022 HSTROP 8.4 pg/mL Normal 4.0-76.1 [facility] Comment on above: Result Comment: CUT- OFF POINTS HAVE BEEN ESTABLISHED BASED ON THE FOURTH UNIVERSAL DEFINITIONS OF MYOCARDIAL INFARCTION. THE UPPER REFERENCE LIMIT (URL) OF TROPONIN, DEFINED THE 99TH PERCENTILE OF cTnI DISTRIBUTION IN A REFERENCE POPULATION, HAS BEEN CONFIRMED THE DECISION THRESHOLD FOR MA DIAGNOSIS. Performed By: #### C BC #### [facility] [address] [place] [address] Dr. Kerrie Stark Progress Noteson 03-30-2022 Special Events Assistant Authentication Interface Message Text EMERGENCY TRIAGE, TREAT AND TRANSPORT (ET3) DOCUMENTATION OF TELEHEALTH VISIT Date / Time: 03/27/2022 / 2340 Name: Chema Childs : 1940 SSN: (Not on file) EMS Agency: [facility] [x] Verbal consent obtained [] Implied consent - patient with potential emergency medical condition requiring assessment of capacity to refuse treatment and/or transport VITAL SIGNS: see flowsheet documentation Reason for Telehealth Visit: Chief Complaint Patient presents with Fall History of Present Illness: 81 yo male with PMH COPD with recent dx of COPD exacerbation/PNA on abx who slipped out of bed and was too weak to get up. Onset just prior to EMS call No LOC, etoh or AC. Pt denies injury Lift assist provided by EMS and pt back in bed but too weak to reposition himself. His regina is present and provides history as well as EMS. Pt initially declining EMS transport wants him to go Associated with gen fatigue, SOB, cough Additional pertinent PMHx, SocHx, FamHx: PMH COPD Meds albuterol, abx, steroids Social Lives w/ Review of Systems: Denies the following: CP, abd painfever Exam: General: Awake, no distress but frail and generally weak appearing ENT: normocephalic, atraumatic Pulmonary: No respiratory distress Cardiovascular: Well perfused Neurologic: Oriented to person, place, time and events. Moving all extremities equally. Psychiatric: Appropriate. Good insight and judgement. Medical Decision Makin yo male with low level fall from bed. No injury. VS w/ hypoxia and tachycardia. Hx of recent COPD/PNA indications progress or failed outpt treatment course. Pt initially refusing transport. Concern for PNA, acute respiratory failure, possible sepsis prompted prolonged discussion w/ pt and his Regina about my serious concerns about his progressing illness and life threatening progression if he elected to stay home. Lab interpretation: blood glucose was within normal limits. Eventually after shared decision making, he agree to transport to ED. Disposition Supported by Telehealth Assessment: ET3 transport decisions: Transport to hospital EMS Disposition Reported: Same ET3 Encounter Completed by: Horace Parra, DO Normal [facility] CBC W MANUAL DIFFon 03-29-19 23 ATYPICAL LYMPH # Normal [facility] Comment on above: Performed By: #### L ACT #### [facility] [address] [address] [address] Kerrie Stark ATYPICAL LYMPH % Normal [facility] Comment on above: Performed By: #### L ACT #### [facility] [address] [address] [address] Kerrie Stark BAND # 0.0 103/ul Normal 0.0-0.3 [facility] Comment on above: Performed By: #### L ACT #### [facility] [address] [address] [address] Kerrie Stark BAND % 0 % Normal 0-5 [facility] Comment on above: Performed By: #### L ACT #### [facility] [address] [place] [address] Dr. Kerrie Stark BASOM # 0.00 103/ul Normal 0.00-0.10 [facility] Comment on above: Performed By: #### L ACT #### [facility] [address] [address] [address] Kerrie Stark BASOM % 0.0 % Critically low 0.2-2.0 [facility] Comment on above: Performed By: #### L ACT #### [facility] [address] [place] [address] Dr. Kerrie Stark BLAST # Normal [facility] Comment on above: Performed By: #### L ACT #### [facility] [address] [place] [address] Dr. Kerrie Stark BLAST % Normal [facility] Comment on above: Performed By: #### L ACT #### [facility] [address] [place] [address] Dr. Kerrie Stark CORRECTED WBC Normal 4.0-11.[address] [facility] Comment on above: Performed By: #### L ACT #### [facility] [address] [place] [address] Dr. Kerrie Stark EOS # 0.00 103/ul Normal 0.00-0.70 [facility] Comment on above: Performed By: #### L ACT #### [facility] [address] [place] [address] Dr. Kerrie Stark EOS% 0.0 % Critically low 0.9-7.0 [facility] Comment on above: Performed By: #### L ACT #### [facility] [address] [place] [address] Dr. Kerrie Stark HCT 37.3 % Critically low 42.0-54.0 [facility] Comment on above: Performed By: #### L ACT #### [facility] [address] [place] [address] Dr. Kerrie Stark HGB 12.0 g/dl Critically low 14.0-18.0 [facility] Comment on above: Performed By: #### L ACT #### [facility] [address] [place] [address] Dr. Kerrie Stark LYMPHM # 0.00 103/ul Critically low 1.20-3.80 [facility] Comment on above: Performed By: #### L ACT #### [facility] [address] [place] [address] Dr. Kerrie Stark LYMPHM% 0.0 % Critically low 20.5-60.0 [facility] Comment on above: Performed By: #### L ACT #### [facility] [address] [place] [address] Dr. Kerrie Stark MCH 33.1 pg Normal 25.9-34.0 [facility] Comment on above: Performed By: #### L ACT #### [facility] [address] [place] [address] Dr. Kerrie Stark MCHC 32.2 g/dl Normal 29.9-35.2 [facility] Comment on above: Performed By: #### L ACT #### [facility] [address] [place] [address] Dr. Kerrie Stark MCV 103.0 fL Critically high 80.0-94.0 [facility] Comment on above: Performed By: #### L ACT #### [facility] [address] [place] [address] Dr. Kerrie Stark METAMYELOCYTE # Normal [facility] Comment on above: Performed By: #### L ACT #### [facility] [address] [place] [address] Dr. Kerrie Stark METAMYELOCYTE % Normal [facility] Comment on above: Performed By: #### L ACT #### [facility] [address] [place] [address] Dr. Kerrie Stark MONOM# 0.69 103/ul Normal 0.30-0.80 [facility] Comment on above: Performed By: #### L ACT #### [facility] [address] [address] [address] Kerrie Stark MONOM% 5.0 % Normal 1.7-12.0 [facility] Comment on above: Performed By: #### L ACT #### [facility] [address] [place] [address] Dr. Kerrie Stark MPV 10.6 fL Normal 9.5-13.5 [facility] Comment on above: Performed By: #### L ACT #### [facility] [address] [address] [address] Kerrie Stark MYELOCYTE # Normal [facility] Comment on above: Performed By: #### L ACT #### [facility] [address] [place] [address] Dr. Kerrie Stark MYELOCYTE % Normal [facility] Comment on above: Performed By: #### L ACT #### [facility] [address] [place] [address] Dr. Kerrie Stark NRBC Normal [facility] Comment on above: Performed By: #### L ACT #### [facility] [address] [place] [address] Dr. Kerrie Stark PLT 158 103/ul Normal 150-450 [facility] Comment on above: Performed By: #### L ACT #### [facility] [address] [place] [address] Dr. Kerrie Stark RBC 3.62 106/ul Critically low 4.70-6.10 [facility] Comment on above: Performed By: #### L ACT #### [facility] [address] [place] [address] Dr. Kerrie Stark RDW 13.2 % Normal 11.0-15.0 [facility] Comment on above: Performed By: #### L ACT #### [facility] [address] [place] [address] Dr. Kerrie Stark SEG # 13.02 103/ul Critically high 1.40-6.50 [facility] Comment on above: Performed By: #### L ACT #### [facility] [address] [place] [address] Dr. Kerrie Stark SEG % 95.0 % Critically high 43.0-75.0 [facility] Comment on above: Performed By: #### L ACT #### [facility] [address] [place] [address] Dr. Kerrie Stakr WBC 13.7 103/ul Critically high 4.0-11.0 [facility] Comment on above: Performed By: #### L ACT #### [facility] [address] [place] [address] Dr. Kerrie Stark POINT OF CARE GLUCOSEon Glucose [Mass/Vol] 300 mg/dL Critically high 74-106 [facility] Comment on above: Performed By: #### C BC #### [facility] [address] [place] [address] Dr. Kerrie Stark PROF CHEM 8 (BAS METB)on Anion gap [Moles/Vol] 12.5 mmol/L Normal [facility] Comment on above: Performed By: #### D DIM #### [facility] [address] [place] [address] Dr. Kerrie Stark Calcium [Mass/Vol] 8.9 mg/dL Normal 8.5-10.1 [facility] Comment on above: Performed By: #### D DIM #### [facility] [address] [place] [address] Dr. Kerrie Stark Chloride [Moles/Vol] 103 mmol/L Normal 98-107 [facility] Comment on above: Performed By: #### D DIM #### [facility] [address] [place] [address] Dr. Kerrie Stark CO2 [Moles/Vol] 25.4 mmol/L Normal 21.0-32.0 [facility] Comment on above: Performed By: #### D DIM #### [facility] [address] [place] [address] Dr. Kerrie Stark Creatinine [Mass/Vol] 1.05 mg/dL Normal 0.70-1.30 [facility] Comment on above: Performed By: #### D DIM #### [facility] [address] [place] [address] Dr. Kerrie Stark EGFR-AF ETHIOPIAN >60 Normal >=60 [facility] Comment on above: Performed By: #### D DIM #### [facility] [address] [place] [address] Dr. Kerrie Stark EGFR-NON AF ETHIOPIAN >60 Normal >=60 [facility] Comment on above: Performed By: #### D DIM #### [facility] [address] [address] [address] Kerrie Stark Glucose [Mass/Vol] 243 mg/dL Critically high 74-106 [facility] Comment on above: Performed By: #### D DIM #### [facility] [address] [place] [address] Dr. Kerrie Stark Potassium [Moles/Vol] 3.9 mmol/L Normal 3.5-5.1 [facility] Comment on above: Performed By: #### D DIM #### [facility] [address] [place] [address] Dr. Kerrie Stark Sodium [Moles/Vol] 137 mmol/L Normal 136-145 [facility] Comment on above: Performed By: #### D DIM #### [facility] [address] [place] [address] Dr. Kerrie Stark Urea nitrogen [Mass/Vol] 22.0 mg/dL Critically high 7.0-18.0 [facility] Comment on above: Performed By: #### D DIM #### [facility] [address] [place] [address] Dr. Kerrie Stark Urea nitrogen/Creatinine [Mass ratio] 21.0 mg/mg Normal [facility] Comment on above: Performed By: #### D DIM #### [facility] [address] [place] [address] Dr. Kerrie Stark CARDIAC CONSTANTINE 3-6on 3 CK [Catalytic activity/Vol] 91 U/L Normal 39-308 [facility] Comment on above: Performed By: #### C MREP #### [facility] [address] [place] [address] Dr. Kerrie tSark CK.MB [Mass/Vol] 0.35 ng/mL Normal <=3.60 [facility] Comment on above: Performed By: #### C MREP #### [facility] [address] [place] [address] Dr. Kerrie Stark HSTROP 20.8 pg/mL Normal 4.0-76.1 [facility] Comment on above: Result Comment: CUT- OFF POINTS HAVE BEEN ESTABLISHED BASED ON THE FOURTH UNIVERSAL DEFINITIONS OF MYOCARDIAL INFARCTION. THE UPPER REFERENCE LIMIT (URL) OF TROPONIN, DEFINED THE 99TH PERCENTILE OF cTnI DISTRIBUTION IN A REFERENCE POPULATION, HAS BEEN CONFIRMED THE DECISION THRESHOLD FOR MA DIAGNOSIS. Performed By: #### C MREP #### [facility] [address] [place] [address] Dr. Kerrie Stark CARDIAC CONSTANTINE ADMITon 023 CK [Catalytic activity/Vol] 56 U/L Normal 39-308 [facility] Comment on above: Performed By: #### D DIM #### [facility] [address] [place] [address] Dr. Kerrie Stark CK.MB [Mass/Vol] 0.36 ng/mL Normal <=3.60 [facility] Comment on above: Performed By: #### D DIM #### [facility] [address] [place] [address] Dr. Kerrie Stark HSTROP 12.7 pg/mL Normal 4.0-76.1 [facility] Comment on above: Result Comment: CUT- OFF POINTS HAVE BEEN ESTABLISHED BASED ON THE FOURTH UNIVERSAL DEFINITIONS OF MYOCARDIAL INFARCTION. THE UPPER REFERENCE LIMIT (URL) OF TROPONIN, DEFINED THE 99TH PERCENTILE OF cTnI DISTRIBUTION IN A REFERENCE POPULATION, HAS BEEN CONFIRMED THE DECISION THRESHOLD FOR MA DIAGNOSIS. Performed By: #### D DIM #### [facility] [address] [address] [address] Kerrie Stark KIKE 128 ng/mL Critically high 16-96 [facility] Comment on above: Performed By: #### D DIM #### [facility] [address] [place] [address] Dr. Kerrie Stark CBC AUTO DIFFon 03-28-2022 BASO # 0.0 103/ul Normal 0.0-0.1 [facility] Comment on above: Performed By: #### C BC #### [facility] [address] [address] [address] Kerrie Stark Basophils/100 WBC (Bld) 0.2 % Normal 0.2-2.0 [facility] Comment on above: Performed By: #### C BC #### [facility] [address] [place] [address] Dr. Kerrie Stark EO # 0.0 103/ul Normal 0.0-0.7 [facility] Comment on above: Performed By: #### C BC #### [facility] [address] [place] [address] Dr. Kerrie Stark Eosinophils/100 WBC (Bld) 0.1 % Critically low 0.9-7.0 [facility] Comment on above: Performed By: #### C BC #### [facility] [address] [place] [address] Dr. Kerrei Stark Erythrocyte distribution width (RBC) [Ratio] 13.3 % Normal 11.0-15.0 [facility] Comment on above: Performed By: #### C BC #### [facility] [address] [place] [address] Dr. Kerrie Stark Hematocrit (Bld) [Volume fraction] 41.9 % Critically low 42.0-54.0 [facility] Comment on above: Performed By: #### C BC #### [facility] [address] [place] [address] Dr. Kerrie Stark Hemoglobin (Bld) [Mass/Vol] 13.3 g/dL Critically low 14.0-18.0 [facility] Comment on above: Performed By: #### C BC #### [facility] [address] [place] [address] Dr. Kerrie Stark IG # 0.04 10e3/ul Critically high 0.00-0.03 [facility] Comment on above: Performed By: #### C BC #### [facility] [address] [place] [address] Dr. Kerrie Stark IG % 0.4 % Normal 0.0-0.5 [facility] Comment on above: Performed By: #### C BC #### [facility] [address] [address] [address] Kerrie Stark LYMPH # 0.5 103/ul Critically low 1.2-3.8 [facility] Comment on above: Performed By: #### C BC #### [facility] [address] [address] [address] Kerrie Stark Lymphocytes/100 WBC (Bld) 5.1 % Critically low 20.5-60.0 [facility] Comment on above: Performed By: #### C BC #### [facility] [address] [address] [address] Kerrie Stark MANUAL DIFF REQ NO Normal [facility] Comment on above: Performed By: #### C BC #### [facility] [address] [place] [address] Dr. Kerrie Stark MCH (RBC) [Entitic mass] 33.2 pg Normal 25.9-34.0 [facility] Comment on above: Performed By: #### C BC #### [facility] [address] [address] [address] Kerrie Stark MCHC (RBC) [Mass/Vol] 31.7 g/dL Normal 29.9-35.2 [facility] Comment on above: Performed By: #### C BC #### [facility] [address] [place] [address] Dr. Kerrie Stark MCV (RBC) [Entitic vol] 104.5 fL Critically high 80.0-94.0 [facility] Comment on above: Performed By: #### C BC #### [facility] [address] [address] [address] Kerrie Stark MONO # 1.1 103/ul Critically high 0.3-0.8 [facility] Comment on above: Performed By: #### C BC #### [facility] [address] [address] [address] Kerrie Stark Monocytes/100 WBC (Bld) 10.9 % Normal 1.7-12.0 [facility] Comment on above: Performed By: #### C BC #### [facility] [address] [address] [address] Kerrie Stark NEUT # 8.3 103/ul Critically high 1.4-6.5 [facility] Comment on above: Performed By: #### C BC #### [facility] [address] [address] [address] Kerrie Stark Neutrophils/100 WBC (Bld) 83.3 % Critically high 43.0-75.0 [facility] Comment on above: Performed By: #### C BC #### [facility] [address] [address] [address] Kerrie Stark Platelet mean volume (Bld) [Entitic vol] 10.8 fL Normal 9.5-13.5 [facility] [facility] Comment on above: Performed By: #### C BC #### [facility] [address] [address] [address] Kerrie Stark PLT 145 103/ul Critically low 150-450 [facility] Comment on above: Performed By: #### C BC #### [facility] [address] [address] [address] Kerrie Stark RBC 4.01 106/ul Critically low 4.70-6.10 [facility] Comment on above: Performed By: #### C BC #### [facility] [address] [address] [address] Kerrie Stark WBC 10.0 103/ul Normal 4.0-11.0 [facility] Comment on above: Performed By: #### C BC #### [facility] [address] [place] [address] Dr. Kerrie Stark CTA CHEST WO W CONon 023 CTA CHEST WO W CON CTA CHEST WO W CON: 03/28/2022 4:38 AM EST CLINICAL HISTORY: 81 years old Male with SHORTNESS OF BREATH. TECHNIQUE: CTA CHEST WO W CON was performed with axial CT images through the thorax as well as sagittal and coronal reformations also obtained after intravenous administration of contrast. Dose reduction techniques were achieved by using automated exposure control and/or adjustment of mA and/or kV according to patient size and/or use of iterative reconstruction technique. COMPARISON: CT thorax 09/20/2018. FINDINGS: The pulmonary arteries are well opacified with no evidence of filling defect to suggest pulmonary embolism. The thoracic aorta is normal in course and caliber without aneurysm or dissection. The heart appears normal with no evidence of pericardial effusion. There are no enlarged mediastinal lymph nodes. The tracheobronchial tree is patent. Peribronchial thickenings are present at the lower lobes bilaterally. Mild to moderate centrilobular emphysema most notable at the upper lobes. Dependent lower lobe atelectasis more significant on the right. No definitive consolidation. No pleural effusion. There is no pneumothorax. The visualized portion of the upper abdomen is grossly unremarkable. Severe degenerative change of the shoulders are present with osseous remodeling. No acute compression fracture deformity or suspicious osseous abnormality. IMPRESSION: 1. No pulmonary embolus identified. No thoracic aortic dissection or aneurysm. 2. Mild to moderate centrilobular emphysema with dependent atelectasis and mild peribronchial cuffings. Possible bronchitis. Electronically authenticated by: FAROOQ HARDEN Date: 2022-03-28 06:03 Normal [facility] Covid-19 PCR (CVDTBH)on SARS-CoV-2 (COVID-19) RNA QUE+probe Ql (Unsp spec) Detected Abnormal NOT DETECTED [facility] Comment on above: Result Comment: This test is not yet approved or cleared by the [place] FDA. When there are no FDA-approved or cleared tests available, and other criteria are met, FDA can make tests available under an emergency access mechanism called an Emergency Use Authorization (EUA). The EUA for this test is supported by the [place] of Health and Human Service's declaration that circumstances exist to justify the emergency use of in vitro diagnostics for the detection and/or diagnosis of the virus that causes COVID-19. This EUA will remain in effect for the duration of the COVID-19 declaration justifying emergency of IVDs, unless it is terminated or revoked by the FDA (after which the test may no longer be used). Performed By: #### C BC #### [facility] [address] [place] [address] Dr. Kerrie Alberts 03-28-2022 D-DIMER 0.71 mg/L FEU Critically high <=0.59 [facility] Comment on above: Performed By: #### D DIM #### [facility] [address] [place] [address] Dr. Kerrie Stark D-DIMER COMMENTS SEE BELOW Normal [facility] Comment on above: Result Comment: Incr eases in D-Dimer concentration observed with thromboembolic events can be variable due to localization, size, and age of the thrombus. Therefore, a thromboembolic event cannot be diagnosed with certainty on the basis of the reference range. D-Dimers may also be elevated for a variety of disorders including: advanced age, , coronary disease, cancer, liver disease, infection, inflammation, hematoma, DIC, trauma, post-surgery, diabetes, thrombolytic or anticoagulant therapy, stress, and generalized hospitalization. Performed By: #### D DIM #### [facility] [address] [place] [address] Dr. Kerrie Stark ER URINE PROFILEon 3 Bilirubin Ql (U) Negative Normal NEGATIVE [facility] Comment on above: Performed By: #### P OCGLUC #### [facility] [address] [place] [address] Dr. Kerrie Stark Clarity (U) CLEAR Normal CLEAR [facility] Comment on above: Performed By: #### P OCGLUC #### [facility] [address] [place] [address] Dr. Kerrie Stark Color (U) YELLOW Normal YELLOW [facility] Comment on above: Performed By: #### P OCGLUC #### [facility] [address] [place] [address] Dr. Kerrie BRINK A micrscopic examination will be performed if indicated. Normal [facility] Comment on above: Performed By: #### P OCGLUC #### [facility] [address] [place] [address] Dr. Kerrie Stark Glucose Ql (U) Negative Normal NEGATIVE [facility] Comment on above: Performed By: #### P OCGLUC #### [facility] [address] [place] [address] Dr. Kerrie Stark Hemoglobin Ql (U) Negative Normal NEGATIVE [facility] Comment on above: Performed By: #### P OCGLUC #### [facility] [address] [address] [address] Kerrie Stark Ketones Ql (U) TRACE Abnormal NEGATIVE [facility] Comment on above: Performed By: #### P OCGLUC #### [facility] [address] [address] [address] Kerrie Stark LEUKOCYTES Negative Normal NEGATIVE [facility] Comment on above: Performed By: #### P OCGLUC #### [facility] [address] [address] [address] Kerrie Stark Nitrite Ql (U) Negative Normal NEGATIVE [facility] Comment on above: Performed By: #### P OCGLUC #### [facility] [address] [place] [address] Dr. Kerrie Stark pH (U) 5.5 [pH] Normal 5-9 [facility] Comment on above: Performed By: #### P OCGLUC #### [facility] [address] [address] [address] Kerrie Stark Protein (U) [Mass/Vol] 30 mg/dL Abnormal NEGAT LITTLE/ TRACE [facility] Comment on above: Performed By: #### P OCGLUC #### [facility] [address] [place] [address] Dr. Kerrie Stark SPEC GRAVITY 1.025 Normal 1.005-<=1.025 [facility] Comment on above: Performed By: #### P OCGLUC #### [facility] [address] [place] [address] Dr. Kerrie Stark UR MICRO IND NOT INDICATED Normal [facility] Comment on above: Performed By: #### P OCGLUC #### [facility] [address] [place] [address] Dr. Kerrie Stark Urobilinogen Qn (U) 1.0 {Ricky'U}/dL Normal 0.2 - 1. 0 [facility] Comment on above: Performed By: #### P OCGLUC #### [facility] [address] [place] [address] Dr. Kerrie Stark INFLUENZA A AND B AGon 03-28 INFLUANE SEE BELOW Normal [facility] Comment on above: Result Comment: Nega tive for Flu A protein angiten. Infection due to Flu A cannot be ruled out. Flu A angiten in the sample may be below the detection limit of the test. Performed By: #### L ACT #### [facility] [address] [place] [address] Dr. Kerrie Stark INFLUBNEGH SEE BELOW Normal [facility] Comment on above: Result Comment: Nega tive for Flu B protein antigen. Infection due to Flu B cannot be ruled out. Flu B antigen in the sample may be below the detection limit of the test. Performed By: #### L ACT #### [facility] [address] [place] [address] Dr. Kerrie Stark INFLUENZA A AG Negative Normal NEGATIVE SEE COMMENT [facility] Comment on above: Performed By: #### L ACT #### [facility] [address] [place] [address] Dr. Kerrie Stark INFLUENZA B AG Negative Normal NEGATIVE SEE COMMENT [facility] Comment on above: Performed By: #### L ACT #### [facility] [address] [place] [address] Dr. Kerrie Stark POINT OF CARE GLUCOSEon Glucose [Mass/Vol] 251 mg/dL Critically high 74-106 [facility] Comment on above: Performed By: #### C BC #### [facility] [address] [place] [address] Dr. Kerrie Stark Glucose [Mass/Vol] 244 mg/dL Critically high 74-106 [facility] Comment on above: Performed By: #### B LDCX1 #### [facility] [address] [place] [address] Dr. Kerrie Stark Glucose [Mass/Vol] 398 mg/dL Critically high 74-106 [facility] Comment on above: Performed By: #### P OCGLUC #### [facility] [address] [place] [address] Dr. Kerrie Stark PROF CHEM 8 (BAS METB)on Anion gap [Moles/Vol] 17.2 mmol/L Normal [facility] Comment on above: Performed By: #### D DIM #### [facility] [address] [address] [address] Kerrie Stark Calcium [Mass/Vol] 9.0 mg/dL Normal 8.5-10.1 [facility] Comment on above: Performed By: #### D DIM #### [facility] [address] [address] [address] Kerrie Stark Chloride [Moles/Vol] 96 mmol/L Critically low 98-107 [facility] Comment on above: Performed By: #### D DIM #### [facility] [address] [place] [address] Dr. Kerrie Stark CO2 [Moles/Vol] 23.6 mmol/L Normal 21.0-32.0 [facility] Comment on above: Performed By: #### D DIM #### [facility] [address] [address] [address] Kerrie Stark Creatinine [Mass/Vol] 1.41 mg/dL Critically high 0.70-1.30 [facility] Comment on above: Performed By: #### D DIM #### [facility] [address] [place] [address] Dr. Kerrie Stark EGFR-AF ETHIOPIAN 58 mL/min/1.73m2 Critically low >=60 [facility] Comment on above: Performed By: #### D DIM #### [facility] [address] [address] [address] Kerrie Stark EGFR-NON AF ETHIOPIAN 48 mL/min/1.73m2 Critically low >=60 [facility] Comment on above: Performed By: #### D DIM #### [facility] [address] [place] [address] Dr. Kerrie Stark Glucose [Mass/Vol] 151 mg/dL Critically high 74-106 [facility] Comment on above: Performed By: #### D DIM #### [facility] [address] [place] [address] Dr. Kerrie Stark Potassium [Moles/Vol] 3.8 mmol/L Normal 3.5-5.1 [facility] Comment on above: Performed By: #### D DIM #### [facility] [address] [address] [address] Kerrie Stark Sodium [Moles/Vol] 133 mmol/L Critically low 136-145 [facility] Comment on above: Performed By: #### D DIM #### [facility] [address] [address] [address] Kerrie Stark Urea nitrogen [Mass/Vol] 20.0 mg/dL Critically high 7.0-18.0 [facility] Comment on above: Performed By: #### D DIM #### [facility] [address] [address] [address] Kerrie Stark Urea nitrogen/Creatinine [Mass ratio] 14.2 mg/mg Normal [facility] Comment on above: Performed By: #### D DIM #### [facility] [address] [address] [address] Kerrie Stark XR CHEST 2 Von 03-28-2022 XR CHEST 2 V EXAM: XR CHEST 2 V HISTORY: SHORTNESS OF BREATH COMPARISON: 10/14/2020 TECHNIQUE: Chest two views. FINDINGS: Lines/tubes/devices: None. Cardiomediastinum: Heart size is normal. Partially calcified aorta. Mediastinal silhouette otherwise unremarkable. Vasculature: No increased vasculature. Lungs/pleura: Lungs appear hyperinflated with interstitial coarsening, findings suggestive of COPD/emphysema. Scattered parenchymal scarring again noted. No acute consolidation, sizeable effusion, or visible pneumothorax. Bones/soft tissues: Bony thorax appears grossly intact as seen. Generalized osteopenia. Degenerative changes of the spine and shoulders. IMPRESSION: No acute cardiopulmonary findings. Electronically authenticated by: PONCHO ROCHA Date: 2022-03-28 01:38 Normal [facility] Auth for Release of Medical Recordson 03-09-2022 Auth for Release of Medical Records [id number] Normal [facility] Cult,Urineon 03-02-2022 Cult,Urine Specimen Description .CLEAN CATCH URINE Culture NO SIGNIFICANT GROWTH Report Status FINAL 03/02/2022 Normal [facility] Comment on above: Performed By: #### U RC #### [facility] [address] [place], [place] [id number] Coat Checker: Sandip Smith MD [facility] [address] [place], [place] [id number] Coat Checker: Ulisses Gaines MD Urinalysis w/ Microon 2022 Bacteria TRACE Abnormal NONE [facility] Comment on above: Performed By: #### U AMIC #### [facility] [address] [place], [place] [id number] Coat Checker: Ulisses Gaines MD Bilirubin, SemiQt,Ur Negative Normal NEG [facility] Comment on above: Performed By: #### U AMIC #### [facility] [address] [place], [place] [id number] Coat Checker: Ulisses Gaines MD Blood, Urine Negative Normal NEG [facility] Comment on above: Performed By: #### U AMIC #### [facility] [address] [place], [place] [id number] Coat Checker: Ulisses Gaines MD Clarity (U) Clear Normal CLEAR [facility] Comment on above: Performed By: #### U AMIC #### [facility] [address] [place], [place] [id number] Coat Checker: Ulisses Gaines MD Color (U) Yellow Normal YEL [facility] Comment on above: Performed By: #### U AMIC #### [facility] [address] [place], [place] [id number] Coat Checker: Ulisses Gaines MD Epithelial cells LM Ql (Urine sed) 0 TO 2 Normal 0-5 [facility] Comment on above: Performed By: #### U AMIC #### [facility] [address] [place] [address] Coat Checker: Ulisses Gaines MD Glucose Ql (U) Negative Normal NEG [facility] Comment on above: Performed By: #### U AMIC #### [facility] [address] [place] [address] Dr. [place], [place] [phone] Coat Checker: Ulisses Gaines MD Ketones Ql (U) Negative Normal NEG [facility] Comment on above: Performed By: #### U AMIC #### [facility] [address] [place] [address] Dr. [place], [place] [id number] Coat Checker: Ulisses Gaines MD Leukocyte esterase Test strip Ql (U) Negative Normal NEG [facility] Comment on above: Performed By: #### U AMIC #### [facility] [address] [place] [address] Dr. [place], [place] [id number] Coat Checker: Ulisses Gaines MD Nitrite,Ur Negative Normal NEG [facility] Comment on above: Performed By: #### U AMIC #### [facility] [address] [place] [address] Dr. [place], [place] [id number] Coat Checker: Ulisses Gaines MD PH,Ur 6.0 Normal 5.0-9.0 [facility] Comment on above: Performed By: #### U AMIC #### [facility] [address] [place] [address] Dr. [place], [place] [id number] Coat Checker: Ulisses Gaines MD Protein Ql (U) Negative Normal NEG [facility] Comment on above: Performed By: #### U AMIC #### [facility] [address] [place] [address] Dr. [place], [place] [id number] Coat Checker: Ulisses Gaines MD Spec. [place],Ur 1.010 Normal 1.010-1.020 [facility] Comment on above: Performed By: #### U AMIC #### [facility] [address] [place] [address] Dr. [place], [place] [id number] Coat Checker: Ulisses Gaines MD Urine RBC's None Normal 0-2 [facility] Comment on above: Performed By: #### U AMIC #### [facility] [address] [place] [address] Coat Checker: Ulisses Gaines MD Urine WBC's None Normal 0-5 [facility] Comment on above: Performed By: #### U AMIC #### [facility] [address] [place] [address] Coat Checker: Ulisses Gaines MD Urobilinogen,Ur Normal Normal NORM [facility] Comment on above: Performed By: #### U AMIC #### [facility] [address] [place] [address] Coat Checker: Ulisses Gaines MD Urinalysis with Microscopico n 03-01-2022 Bacteria, UA TRACE Abnormal None [facility] Bilirubin Urine Negative NEGATIVE [facility] Color, UA Yellow Yellow [facility] Epithelial Cells UA 0 TO 2 [facility] Glucose, Ur Negative NEGATIVE [facility] Interpretation and review of laboratory results Abnormal [facility] Ketones Ql (U) Negative NEGATIVE [facility] Leukocyte esterase Test strip Ql (U) Negative NEGATIVE [facility] Nitrite, Urine Negative NEGATIVE [facility] pH, UA 6.0 5.0 - 9.0 [facility] Protein, UA Negative NEGATIVE [facility] RBC, UA None [facility] Specific [place], UA 1.010 1.010 - 1.020 B ON [facility] Turbidity UA Clear Clear [facility] Urine Hgb Negative NEGATIVE [facility] Urobilinogen, Urine Normal Normal [facility] WBC, UA None [facility] GLYCOHEMOGLOBIN A1Con 2021 ADA RECOMMENDATION SEE BELOW Normal [facility] Comment on above: Result Comment: ADA RECOMMENDED LIMIT 4.0 - 6.0 ADA THERAPEUTIC TARGET < 7.0 ACTION SUGGESTED > 7.0 Performed By: #### P OCGLUC #### [facility] [address] [address] [address] Kerrie Stark Glucose [Mass/Vol] 146 mg/dL Normal [facility] Comment on above: Performed By: #### P OCGLUC #### [facility] [address] [address] [address] Kerrie Stark HbA1c (Bld) [Mass fraction] 6.7 % Critically high 4.5-6.2 [facility] Comment on above: Performed By: #### P OCGLUC #### [facility] [address] [address] [address] Kerrie Stark LIPID PROFILEon 02-01-2022 CHOL-HDL RATIO NORM SEE BELOW Normal [facility] Comment on above: Result Comment: 3.3 - 4.4 LOW RISK 4.4 - 7.1 AVERAGE RISK 7.1 - 11.0 MODERATE RISK >11.0 HIGH RISK Performed By: #### P OCGLUC #### [facility] [address] [address] [address] Kerrie Stark Cholesterol [Mass/Vol] 127 mg/dL Normal <=200 [facility] Comment on above: Performed By: #### P OCGLUC #### [facility] [address] [address] [address] Kerrie Stark Cholesterol in HDL [Mass/Vol] 50 mg/dL Normal 40-60 [facility] Comment on above: Performed By: #### P OCGLUC #### [facility] [address] [address] [address] Kerrie Stark Cholesterol in LDL [Mass/Vol] 58.8 mg/dL Normal [facility] Comment on above: Performed By: #### P OCGLUC #### [facility] [address] [address] [address] Kerrie Stark Cholesterol.total/Chol esterol in HDL [Mass ratio] 2.5 {ratio} Normal [facility] Comment on above: Performed By: #### P OCGLUC #### [facility] [address] [address] [address] Kerrie Stark HDL NORMAL > or = 60 mg/dl - LOW CARDIOVASCULAR RISK <40 mg/dl - HIGH CARDIOVASCULAR RISK Normal [facility] Comment on above: Performed By: #### P OCGLUC #### [facility] [address] [address] [address] Kerrie Stark LDL CALC NORMAL SEE BELOW Normal [facility] Comment on above: Result Comment: <100 mg/dl OPTIMAL 100 - 129 mg/dl NEAR OR ABOVE OPTIMAL 130 - 159 mg/dl BORDERLINE HIGH 160 - 189 mg/dl HIGH >190 mg/dl VERY HIGH Performed By: #### P OCGLUC #### [facility] [address] [address] [address] Kerrie Stark Triglyceride [Mass/Vol] 91 mg/dL Normal <=150 [facility] Comment on above: Performed By: #### P OCGLUC #### [facility] [address] [address] [address] Kerrie Stark VLDL CALC 18.2 mg/dL Normal [facility] Comment on above: Performed By: #### P OCGLUC #### [facility] [address] [address] [address] Kerrie Stark PROF 14(COMP METB)on 02-01- 022 Albumin [Mass/Vol] 3.8 g/dL Normal 3.4-5.0 [facility] Comment on above: Performed By: #### P OCGLUC #### [facility] [address] [place] [address] Dr. Kerrie Stark Albumin/Globulin [Mass ratio] 1.0 {ratio} Normal [facility] Comment on above: Performed By: #### P OCGLUC #### [facility] [address] [place] [address] Dr. Kerrie Stark ALP [Catalytic activity/Vol] 56 U/L Normal 46-116 [facility] Comment on above: Performed By: #### P OCGLUC #### [facility] [address] [address] [address] Kerrie Stark ALT [Catalytic activity/Vol] 30 U/L Normal 16-63 [facility] Comment on above: Performed By: #### P OCGLUC #### [facility] [address] [address] [address] Kerrie Stark Anion gap [Moles/Vol] 13.3 mmol/L Normal Th [facility] Comment on above: Performed By: #### P OCGLUC #### [facility] [address] [address] [address] Kerrie Stark AST [Catalytic activity/Vol] 26 U/L Normal 15-37 [facility] Comment on above: Performed By: #### P OCGLUC #### [facility] [address] [address] [address] Kerrie Stark Bilirubin [Mass/Vol] 0.7 mg/dL Normal 0.2-1.0 [facility] Comment on above: Performed By: #### P OCGLUC #### [facility] [address] [address] [address] Kerrie Stark Calcium [Mass/Vol] 9.0 mg/dL Normal 8.5-10.1 [facility] Comment on above: Performed By: #### P OCGLUC #### [facility] [address] [address] [address] Kerrie Stark Chloride [Moles/Vol] 105 mmol/L Normal 98-107 [facility] Comment on above: Performed By: #### P OCGLUC #### [facility] [address] [address] [address] Kerrie Stark CO2 [Moles/Vol] 28.3 mmol/L Normal 21.0-32.0 [facility] Comment on above: Performed By: #### P OCGLUC #### [facility] [address] [address] [address] Kerrie Stark Creatinine [Mass/Vol] 1.00 mg/dL Normal 0.70-1.30 [facility] Comment on above: Performed By: #### P OCGLUC #### [facility] [address] [place] [address] Dr. Kerrie Stark EGFR-AF ETHIOPIAN >60 Normal >=60 [facility] Comment on above: Performed By: #### P OCGLUC #### [facility] [address] [address] [address] Kerrie Stark EGFR-NON AF ETHIOPIAN >60 Normal >=60 [facility] Comment on above: Performed By: #### P OCGLUC #### [facility] [address] [address] [address] Kerrie Stark Globulin (S) [Mass/Vol] 3.7 g/dL Normal [facility] Comment on above: Performed By: #### P OCGLUC #### [facility] [address] [address] [address] Kerrie Stark Glucose [Mass/Vol] 150 mg/dL Critically high 74-106 [facility] Comment on above: Performed By: #### P OCGLUC #### [facility] [address] [address] [address] Kerrie Stark Potassium [Moles/Vol] 5.6 mmol/L Critically high 3.5-5.1 [facility] Comment on above: Performed By: #### P OCGLUC #### [facility] [address] [address] [address] Kerrie Stark Protein [Mass/Vol] 7.5 g/dL Normal 6.4-8.2 [facility] Comment on above: Performed By: #### P OCGLUC #### [facility] [address] [address] [address] Kerrie Stark Sodium [Moles/Vol] 141 mmol/L Normal 136-145 [facility] Comment on above: Performed By: #### P OCGLUC #### [facility] [address] [address] [address] Kerrie Stark Urea nitrogen [Mass/Vol] 18.0 mg/dL Normal 7.0-18.0 [facility] Comment on above: Performed By: #### P OCGLUC #### [facility] [address] [address] [address] Kerrie Stark Urea nitrogen/Creatinine [Mass ratio] 18.0 mg/mg Normal [facility] Comment on above: Performed By: #### P OCGLUC #### [facility] [address] [address] [address] Kerrie Stark Creatinine (Bld) [Mass/Vol]O rdered By: Oumar Haynes on 01-30-2022 Creatinine [Mass/Vol] 1.0 mg/dL 0.6-1.3 [facility] Comment on above: ER/ESD physician is notified/shown all ISTAT results.Critical values may be confirmed by laboratory testing ifdeemed necessary by ER attending doctor. No Panel InformationOrdered By: Oumar Bulukequentin on 01-30-2022 POC Estimated GFR > 60 [facility] Comment on above: GFR estimated refere nce range: According to KDOQI guidelines, <60 ml/min/1.73m2 is sufficient to diagnose a patient with chronic kidney disease. POC Estimated GFR Non- Amer > 60 [facility] Auth for Release of Medical Recordson 12-22-2021 Auth for Release of Medical Records [id number] #1.00CD:127 Normal [facility] Formson 11-25-2021 Forms [id number] #1.00CD:127 Normal [facility] Patient Educationon 11-24-19 Patient Education Infectious Disease Prostatitis Prostatitis is swelling or inflammation of the prostate gland. The prostate is a walnut-sized gland that is involved in the production of semen. It is located below a man's bladder, in front of the rectum. There are four types of prostatitis: ? Chronic nonbacterial prostatitis. This is the most common type of prostatitis. It may be associated with a viral infection or autoimmune disorder. ? Acute bacterial prostatitis. This is the least common type of prostatitis. It starts quickly and is usually associated with a bladder infection, high fever, and shaking chills. It can occur at any age. ? Chronic bacterial prostatitis. This type usually results from acute bacterial prostatitis that happens repeatedly (is recurrent) or has not been treated properly. It can occur in men of any age but is most common among middle-aged men whose prostate has begun to get larger. The symptoms are not as severe as symptoms caused by acute bacterial prostatitis. ? Prostatodynia or chronic pelvic pain syndrome (CPPS). This type is also called pelvic floor disorder. It is associated with increased muscular tone in the pelvis surrounding the prostate. What are the causes? Bacterial prostatitis is caused by infection from bacteria. Chronic nonbacterial prostatitis may be caused by: ? Urinary tract infections (UTIs). ? Nerve damage. ? A response by the body?s disease-fighting system (autoimmune response). ? Chemicals in the urine. The causes of the other types of prostatitis are usually not known. What are the signs or symptoms? Symptoms of this condition vary depending upon the type of prostatitis. If you have acute bacterial prostatitis, you may experience: ? Urinary symptoms, such as: ? Painful urination. ? Burning during urination. ? Frequent and sudden urges to urinate. ? Inability to start urinating. ? A weak or interrupted stream of urine. ? Vomiting. ? Nausea. ? Fever. ? Chills. ? Inability to empty the bladder completely. ? Pain in the: ? Muscles or joints. ? Lower back. ? Lower abdomen. If you have any of the other types of prostatitis, you may experience: ? Urinary symptoms, such as: ? Sudden urges to urinate. ? Frequent urination. ? Difficulty starting urination. ? Weak urine stream. ? Dribbling after urination. ? Discharge from the urethra. The urethra is a tube that opens at the end of the penis. ? Pain in the: ? Testicles. ? Penis or tip of the penis. ? Rectum. ? Area in front of the rectum and below the scrotum (perineum). ? Problems with sexual function. ? Painful ejaculation. ? Bloody semen. How is this diagnosed? This condition may be diagnosed based on: ? A physical and medical exam. ? Your symptoms. ? A urine test to check for bacteria. ? An exam in which a health care provider uses a finger to feel the prostate (digital rectal exam). ? A test of a sample of semen. ? Blood tests. ? Ultrasound. ? Removal of prostate tissue to be examined under a microscope (biopsy). ? Tests to check how your body handles urine (urodynamic tests). ? A test to look inside your bladder or urethra (cystoscopy). How is this treated? Treatment for this condition depends on the type of prostatitis. Treatment may involve: ? Medicines to relieve pain or inflammation. ? Medicines to help relax your muscles. ? Physical therapy. ? Heat therapy. ? Techniques to help you control certain body functions (biofeedback). ? Relaxation exercises. ? Antibiotic medicine, if your condition is caused by bacteria. ? Warm water baths (sitz baths). Sitz baths help with relaxing your pelvic floor muscles, which helps to relieve pressure on the prostate. Follow these instructions at home: ? Take genv-byg-rqawxxv and prescription medicines only as told by your health care provider. ? If you were prescribed an antibiotic, take it as told by your health care provider. Do not stop taking the antibiotic even if you start to feel better. ? If physical therapy, biofeedback, or relaxation exercises were prescribed, do exercises as instructed. ? Take sitz baths as directed by your health care provider. For a sitz bath, sit in warm water that is deep enough to cover your hips and buttocks. ? Keep all follow-up visits as told by your health care provider. This is important. Contact a health care provider if: ? Your symptoms get worse. ? You have a fever. Get help right away if: ? You have chills. ? You feel nauseous. ? You vomit. ? You feel light-headed or feel like you are going to faint. ? You are unable to urinate. ? You have blood or blood clots in your urine. This information is not intended to replace advice given to you by your health care provider. Make sure you discuss any questions you have with your health care provider. Document Released: 02/02/2001 Document Revised: 04/20/2018 Docum (more content not included)... Normal [facility] Urology Office/Clinic Noteon 11-23-2021 Urology Office/Clinic Note Chief Complaint Patient in office for dysuria HPI Staff New patient in office with complaints of dysuria x 2 months. States he saw Dr. Mcfadden about a month ago and he put him on an antibiotic, thinks it was Amoxicillin, states this medication ended up giving him diarrhea so he stopped taking it. States he is still having the burning with urination. States it is intermittent and will at times get better but then gets worse again. States he does experience intermittent dribbling prior to voiding. Patient states he does have episodes of diarrhea every couple of weeks, states he is not sure what is causing this. Dysuria: admits, intermittent Incomplete bladder emptying: denies Hematuria: denies Frequency: denies Urgency: denies Nocturia: 2 x a night Stream: steady Leaking: denies Post void dripping: denies Wearing pads/ Depends: denies Urge incontinence: denies Stress incontinence: denies Incontinence without Sensory Awareness: denies Abdominal pain: denies Flank pain: denies Sexual complaints: _ History of Present Illness staff HPI reviewed and agree. Review of Systems PHQ Score Initial Depression Screen Score: 0 no fever, chills, malaise, myalgia. no rash/lesions. no chest pain, palpitations, or SOB. no abdominal pain, nausea, vomiting. no unilateral calf swelling, redness, pain Physical Exam Vitals & Measurements HR: 66(Peripheral) BP: 132/70 HT: 71 in HT: 180 cm WT: 84 kg WT: 184.8 lb BMI: 25.93 General: nontoxic, NAD Mouth: moist mucosa Lungs: normal respiratory effort Cardio: regular rate, good distal perfusion Abdomen: nondistended, no suprapubic distention or tenderness, no CVA tenderness Neurologic: Grossly normal Skin: No rashes or suspicious lesions : mildly tender and boggy prostate without induration or discrete nodule Assessment/Plan 2. Prostatitis (N41.9: Inflammatory disease of prostate, unspecified) pt c/o dysuria, perineal/rectal pain, increased frequency/urgency, mild UUI and post void dribbling. sx started a few mos ago. saw PCP who started abx. pt only took for a few days and then dc'd due to diarrhea. UA completed in office today shows no microhematuria or signs of bladder infection. advised sx/exam suspicious for prostatitis. will tx w 4 wks abx. side effects/risks discussed. global marketing specialist clearance 62-70, no renal dose adjustment needed. encouraged probiotics, metamucil, and yogurt to help w diarrhea. complete entire abx course. f/u in 2-3 mos to reassess Ordered: sulfamethoxazole-tri methoprim, 1 tab(s), Oral, BID for 4 week(s), 56 tab(s), Refill(s) 0, [id number], 180, cm, 11/23/21 10:01:00 EDT, Height/Length Dosing, 84, kg, 11/23/21 10:01:00 EDT, Weight Dosing E&M of New Patient Moderate 45-59 Min 09438 3. BPH with obstruction/lower urinary tract symptoms (N40.1: Benign prostatic hyperplasia with lower urinary tract symptoms) IPSS 4, QOL 1. on tamsulosin. s/p REZUM Dec 2017. overall pleased w urinary sx at baseline. dissatisfied with recent sx. Ordered: sulfamethoxazole-tri methoprim, 1 tab(s), Oral, BID for 4 week(s), 56 tab(s), Refill(s) 0, [id number], 180, cm, 11/23/21 10:01:00 EDT, Height/Length Dosing, 84, kg, 11/23/21 10:01:00 EDT, Weight Dosing E&M of New Patient Moderate 45-59 Min 58763 Orders: Urnls Dip Stick Auto w/o Microscopy POC [id number] Follow-up With When Contact Information MY GALDAMEZ, KONG Brown, URL Within 3 months [address] [place] [address] Additional Instructions: Patient Education Prostatitis Problem List/Past Medical History Ongoing BPH with urinary obstruction Erectile dysfunction Gastroesophageal reflux Glaucoma Gout Hypertension Historical No qualifying data Procedure/Surgical History Cystoscopy (12/24/2017), H/O: vasectomy (02/19/1977). Medications allopurinol aspirin 81 mg oral tablet, Oral, Daily Bactrim DS 800 mg-160 mg Tab, 1 tab(s), Oral, BID levothyroxine 88 mcg (0.088 mg) oral capsule, 88 mcg= 1 cap(s), Oral, Daily losartan, Oral, Daily losartan 50 mg Tab, 50 mg= 1 tab(s), Oral, Daily lysine, Oral, Daily metformin 850 mg oral tablet, 850 mg= 1 tab(s), Oral, qAM Milk Thistle oral tablet omeprazole, Oral, Daily tamsulosin 0.4 mg Cap, Oral, Daily Vitamin C, Daily Allergies tetracycline (Feeling sick) Social History Tobacco Never (less than 100 in lifetime) Tobacco Use:., 05/12/2019 Family History Cancer of prostate: Father. Diabetes mellitus type 1: Mother. Lab Results Ambulatory Point of Care Results Bilirubin Urine Dipstick: Negative (11/23/21 09:44:00) Blood Urine Dipstick: Negative (11/23/21 09:44:00) Glucose Urine Dipstick: Negative (11/23/21 09:44:00) Ketones Urine Dipstick: Negative (11/23/21 09:44:00) Leukocytes Urine Dipstick: Negative (11/23/21 09:44:00) Nitrite Urine Dipstick: Negative (11/23/21 09:44:00) Protein Urine Dipstick: Negative (11/23/21 09:44:00) Specific [place] Urine Dipstick: 1.015 (11/23/21 09 (more content not included)... Normal [facility] Comment on above: Result Comment: Elec tronically Signed By: MY GALDAMEZ, KONG Brown\.br\Date and Time Signed: 11/23/21 11:02 EDT Historical Records Officeon 11-01-2021 Historical Records Office [id number] #1.00CD:127 Normal [facility] FREE T3on 09-21-2021 FREE T3 1.88 pg/mlL Critically low 2.18-3.98 [facility] Comment on above: Performed By: #### P OCGLUC #### [facility] [address] [place] [address] Dr. Kerrie Stark FREE T4on 09-21-2021 Free T4 [Mass/Vol] 1.28 ng/dL Normal 0.76-1.46 [facility] Comment on above: Performed By: #### D DIM #### [facility] [address] [place] [address] Dr. Kerrie Stark TSHon 09-21-2021 TSH 0.625 uIU/mL Normal 0.358-3.[address] [facility] Comment on above: Performed By: #### P OCGLUC #### [facility] [address] [place] [address] Dr. Kerrie Stark CTA Abdomen/Pelvis w/ and w/ o contraston 08-10-2021 CTA Abdomen/Pelvis w/ and w/o contrast HISTORY: Aneurysm of infrarenal abdominal aorta. COMPARISON: None available TECHNIQUE: Multiple axial images were obtained of the abdomen and pelvis without and with contrast. Multiplanar reformats were acquired at the CT console. Oral contrast was also given. All CT scans at this facility use dose modulation, iterative reconstruction, and/or weight based dosing when appropriate to reduce radiation dose to as low as reasonably achievable. FINDINGS: Bilateral lung base scarring and/or atelectasis. Two calcified gallstones are identified, the largest of which measures approximately 7 mm. The gallbladder is otherwise unremarkable. The stomach, liver, spleen, pancreas, and adrenal glands are within normal limits. The kidneys enhance uniformly. There are a few tiny bilateral nonobstructing renal calculi. No hydronephrosis. Mild bilateral perinephric stranding, likely chronic. No evidence of renal mass. Urinary bladder is well-distended. The prostate is mildly enlarged. No retroperitoneal or mesenteric lymphadenopathy. Saccular abdominal aortic aneurysm measures up to 3.2 cm in diameter for a craniocaudal length of approximately 2.4 cm. Atherosclerotic disease of the abdominal aorta, resulting in focal stenosis of the abdominal aorta just inferior to the renal arteries of up to roughly 25%. Focal 10 mm outpouching of contrast anteriorly within the aneurysm is concerning for early penetrating atherosclerotic ulcer. Atherosclerotic calcification is present at the origin of both renal arteries, without high-grade stenosis. The renal arteries are patent. Atherosclerotic calcification at the origin of the celiac artery and superior mesenteric artery without significant stenosis. The inferior mesenteric artery is patent. No small bowel obstruction. No overt colonic mass or pericolonic inflammation. The appendix is within normal limits. No free air or free fluid. No acute osseous abnormality. Degenerative changes of the spine. IMPRESSION: Saccular infrarenal abdominal aortic aneurysm measuring up to 3.2 cm in diameter, superimposed on atherosclerotic disease. A focal 10 mm outpouching of contrast anteriorly within the aneurysm may be secondary to irregularly marginated plaque however early penetrating atherosclerotic ulcer cannot be excluded without prior imaging for comparison. Vascular surgical consultation is recommended. Dr. Mcfadden notified of this finding by Dr. Crane at approximately 2 PM on 08/11/2021. Cholelithiasis. Nonobstructing bilateral renal calculi. Enlarged prostate. Report reported and signed by Harpal Crane on 08/11/2021 1410 Normal [facility] CREATININEon 08-03-2021 Creatinine [Mass/Vol] 0.98 mg/dL Normal 0.70-1.30 [facility] Comment on above: Performed By: #### L ACT #### [facility] [address] [address] [address] Kerrie Stark EGFR-AF ETHIOPIAN >60 Normal >=60 [facility] Comment on above: Performed By: #### L ACT #### [facility] [address] [address] [address] Kerrie Stark EGFR-NON AF ETHIOPIAN >60 Normal >=60 [facility] Comment on above: Performed By: #### L ACT #### [facility] [address] [address] [address] Kerrie Stark GLYCOHEMOGLOBIN A1Con 2021 ADA RECOMMENDATION SEE BELOW Normal [facility] Comment on above: Result Comment: ADA RECOMMENDED LIMIT 4.0 - 6.0 ADA THERAPEUTIC TARGET < 7.0 ACTION SUGGESTED > 7.0 Performed By: #### P OCGLUC #### [facility] [address] [address] [address] Kerrie Stark Glucose [Mass/Vol] 146 mg/dL Normal [facility] Comment on above: Performed By: #### P OCGLUC #### [facility] [address] [place] [address] Dr. Kerrie Stark HbA1c (Bld) [Mass fraction] 6.7 % Critically high 4.5-6.2 [facility] Comment on above: Performed By: #### P OCGLUC #### [facility] [address] [place] [address] Dr. Kerrie Stark Vital Signs Date Time Vital Sign Value Performing Clinician Facility 01-31-2023 10:00-0500 Body height 175.26 cm Horace Jasso Other [facility] Other 01-31-2023 10:00-0500 Body mass index (BMI) [Ratio] 27.32 kg/m2 Horace Jasso Other [facility] Other 01-31-2023 10:00-0500 Body temperature 97.6 [degF] Horace Jasso Other [facility] Other 01-31-2023 10:00-0500 Body weight 83.92 kg Horace Louisa Other [facility] Other 01-31-2023 10:00-0500 Diastolic blood pressure 64 mm[Hg] Horace Jasso Other [facility] Other 01-31-2023 10:00-0500 SaO2% (BldA) [Mass fraction] 94 % Horace Jasso Other [facility] Other 01-31-2023 10:00-0500 Systolic blood pressure 108 mm[Hg] Horace Jasso Other [facility] Other 03-27-2022 23:40-0500 Diastolic blood pressure 78 mm[Hg] [facility] 03-27-2022 23:40-0500 Heart rate 121 /min [facility] 03-27-2022 23:40-0500 Respiratory rate 22 /min [facility] 03-27-2022 23:40-0500 SaO2% (BldA) [Mass fraction] 92 % [facility] 03-27-2022 23:40-0500 Systolic blood pressure 137 mm[Hg] [facility] 01-31-2022 12:00-0500 Body height 175.26 cm 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 Other [facility] Other 01-31-2022 12:00-0500 Body mass index (BMI) [Ratio] 27.32 kg/m2 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 Other [facility] Other 01-31-2022 12:00-0500 Body temperature 96.4 [degF] 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 Other [facility] Other 01-31-2022 12:00-0500 Body weight 83.92 kg 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 Other [facility] Other 01-31-2022 12:00-0500 Diastolic blood pressure 72 mm[Hg] oYlette Duff Other [facility] Other 01-31-2022 12:00-0500 SaO2% (BldA) [Mass fraction] 97 % 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 Other [facility] Other 01-31-2022 12:00-0500 Systolic blood pressure 120 mm[Hg] 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 Other [facility] Other 11-23-2021 09:59-0400 Blood Pressure Location KONG MY [facility] 11-23-2021 09:59-0400 Diastolic blood pressure 70 mm[Hg] KONG [facility] 11-23-2021 09:59-0400 Heart rate 66 /min KONG [facility] 11-23-2021 09:59-0400 Systolic blood pressure 132 mm[Hg] KONG MY [facility] 08-16-2021 12:45-0400 Body height 175.26 cm Oumar Haynes Other [facility] Other 08-16-2021 12:45-0400 Body mass index (BMI) [Ratio] 27.32 kg/m2 Oumar Haynes Other [facility] Other 08-16-2021 12:45-0400 Body temperature 96.9 [degF] Oumar Haynes Other [facility] Other 08-16-2021 12:45-0400 Body weight 83.92 kg Oumar Haynes Other [facility] Other 08-16-2021 12:45-0400 Diastolic blood pressure 78 mm[Hg] Oumar Haynes Other [facility] Other 08-16-2021 12:45-0400 SaO2% (BldA) [Mass fraction] 95 % Oumar Haynes Other [facility] Other 08-16-2021 12:45-0400 Systolic blood pressure 110 mm[Hg] Oumar Haynes Other [facility] Other Encounters Encounter Date Encounter Type Care Provider Facility Start: 01-31-2023 Office outpatient vi sit 15 minutes Horace ALMANZA [facility] Start: 01-31-2023 End: 01-31-2023 ambulatory 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 Facility:[facility] Start: 01-31-2023 End: 01-31-2023 ambulatory MD Kang Mcfadden Work Phone: [employer] Other Start: 01-31-2023 End: 01-31-2023 Patient encounter procedure MD Kang Mcfadden Work Phone: [facility] Start: 01-15-2023 End: 01-15-2023 ambulatory KANG MCFADDEN Not Available Start: 12-01-2022 End: 12-01-2022 ambulatory KANG MCFADDEN [facility] Start: 10-03-2022 End: 10-03-2022 ambulatory [facility] Start: 08-28-2022 End: 08-29-2022 ambulatory [facility] Start: 08-09-2022 End: 08-10-2022 ambulatory [facility] Start: 08-09-2022 End: 08-09-2022 Subsequent hospital visit by physician Kang Mcfadden MD Work Phone: [facility] Laboratory Comment on above: Dysuria; Frequency of micturition Start: 07-03-2022 End: 07-04-2022 ambulatory ZOILA JAVED . Facility:[facility] Start: 06-26-2022 End: 06-27-2022 ambulatory ZOILA JAVED . Facility:[facility] Start: 06-14-2022 End: 06-15-2022 ambulatory [facility] Start: 04-24-2022 End: 05-18-2022 ambulatory THELMA BETTS Facility:[facility] Start: 04-19-2022 End: 04-19-[address] KANG MCFADDEN . Facility:[facility] Start: 04-05-2022 End: 04-08-2022 Evaluation and management of inpatient ELDER BENNETT . Facility:[facility] Start: 04-05-2022 End: 04-06-[address] KANG MCFADDEN . Facility:[facility] Start: 03-30-2022 End: 06-29-2022 ambulatory UNKNOWN PROVIDER Facility:[facility] Start: 03-28-2022 End: 03-29-2022 ambulatory SHAIKH Matilde LAU Facility:[facility] Start: 03-27-2022 End: 03-27-2022 ambulatory [facility] Emergen[facility] y Triage, Treat and Transport Start: 03-27-2022 End: 03-27-2022 Emergency department patient visit [facility] Emergency Triage, Treat and Transport Comment on above: Arrived Start: 03-02-2022 End: 03-03-[address] KANG MCFADDEN . Facility:[facility] Start: 03-01-2022 End: 03-02-2022 ambulatory [facility] Start: 03-01-2022 End: 03-01-2022 Subsequent hospital visit by physician Kang Mcfadden MD Work Phone: [facility] Laboratory Comment on above: BPH with obstruction /lower urinary tract symptoms; Dysuria Start: 02-22-2022 ambulatory KONG PEPE Facili ty:[facility] Start: 02-20-[address] KANG MCFADDEN . Fac ility:[facility] Start: 02-06-2022 End: 02-07-[address] KANG MCFADDEN . Facility:[facility] Start: 02-06-2022 End: 02-06-[address] KANG MCFADDEN . Facility:[facility] Start: 02-01-2022 End: 02-02-[address] KANG MCFADDEN . Facility:[facility] Start: 01-31-2022 End: 01-31-2022 ambulatory 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 Other [email or web address] Other Start: 01-31-2022 Follow-up encounter Yolette Rosenberg [facility] V[facility] Surgery Start: 01-30-2022 End: 01-30-2022 ambulatory MD Kang Mcfadden Work Phone: [facility] Work Phone: Start: 01-30-2022 End: 01-30-2022 Patient encounter procedure MD Kang Mcfadden Work Phone: [facility]-CT Scan [place] Start: 11-23-2021 End: 11-24-2021 ambulatory KONG PEPE Facility: [facility] Start: 11-23-2021 End: 11-23-2021 Patient encounter procedure KONG PEPE [facility] Start: 09-21-2021 End: 09-22-[address] KANG MCFADDEN . Facility:[facility] Start: 08-19-[address] KANG MCFADDEN . Fac ility:[facility] Start: 08-16-2021 End: 08-16-2021 ambulatory Oumar Haynes Other [employer] Other Start: 08-16-2021 Office outpatient ne w 45 minutes Oumar Haynes [facility] Start: 08-03-2021 End: 08-04-[address] KANG MCFADDEN . Facility: Procedures Date Procedure Procedure Detail Performing Clinician Start: 01-31-2023 US scan of aorta MD Sang Mcfadden Work Phone: Start: 03-02-[address] KANG MCFADDEN . Comment on above: Performed By: #### P OCGLUC #### [facility] [address] [place] [address] Dr. Kerrie Stark Start: 03-01-2022 Urnls dip stick/tabl et reagent auto microscopy Erica Veras MD Work Phone: Start: 01-30-2022 Computed tomography angiography of abdominal and/or pelvic blood vessel MD Kang Mcfadden Work Phone: Start: 12-24-2017 Cystoscopy KONG BRITO Start: 02-19-1977 H/O: vasectomy KONG PEPE Plan of Treatment Date Care Activity Detail Author Start: 09-20-2022 End: 09-20-2022 Patient encounter procedure 09/20/2022 Office Visit [facility] Start: 03-20-2022 End: 03-20-2022 Patient encounter procedure 03/20/2022 Procedure visit [facility] Start: 03-01-2022 Annual Wellness Visi t (AWV) Annual Wellness Visit (AWV) [facility] Start: 11-19-2021 Influenza vaccination Influenza Vacc ine (#1) [facility] Start: 09-19-2021 Influenza vaccination Flu vaccine (# 1) [facility] Start: 01-29-2021 COVID-19 Vaccine (4 - Booster for Pfizer series) COVID-19 Vaccine (4 - Booster for Pfizer series) [facility] Start: 02-18-2014 Shingles vaccine (2 of 3) Shingles vaccine (2 of 3) [facility] Start: 2005 Pneumococcal 65+ yea rs Vaccine (1 - PCV) Pneumococcal 65+ years Vaccine (1 - PCV) [facility] Start: 2005 Pneumococcal vaccination Pneumococcal Vaccine(s) (65+ yrs) (1 - PCV) [facility] Start: 1990 Shingles (RZV) Vacci ne (1 of 2) Shingles (RZV) Vaccine ([facility] 2) [facility] Start: 1990 Shingles vaccine (1 of 2) Shingles vaccine (1 of 2) [facility] Start: 04-26-1959 DTaP/Tdap/Td vaccine (1 - Tdap) DTaP/Tdap/Td vaccine (1 - Tdap) [facility] Start: 1958 Tetanus + diphtheria + acellular pertussis vaccine (product) Tdap Booster [facility] Start: 1952 Depression Screen Depression Screen [facility] Start: 1950 Lipid panel [facility] Start: 1940 COVID-19 Vaccine (#1) COVID-19 Vacci ne (#1) [facility] End: 03-01-2022 Culture, Urine [facility] Work Phone: Comment on above: 1 Occurrences starti ng 03/01/2022 until 03/01/2022 End: 08-09-2022 Culture, Urine [facility] Comment on above: 1 Occurrences starti ng 08/09/2022 until 08/09/2022 Payers Date Payer Category Payer Unknown [id number] 2022 Unknown [id number] 1959 Medicare [id number] 2.1 [id number] 1959 Self-pay [id number] 1959 Self-pay [id number] 1959 Unknown [id number] 2.1 [id number] 1940 Unknown [id number] 2.16.8 40.1.278352.3.579.2.727 1940 Unknown [id number] 2.16.8 40.1.080085.3.579.2.727 194 Unknown [id number] 2.16. 840.1.816821.3.579.2.732 1940 Unknown [id number] 2.16.84 0.1.961779.3.579.2.593 1940 Unknown [id number] 2.16.84 0.1.049296.3.579.2.593 1940 Unknown [id number] 2.16.84 0.1.594097.3.579.2.593 1940 Unknown [id number] 2.16.84 0.1.291710.3.579.2.593 194 Unknown [id number] 2.16.84 0.1.073916.3.579.2.593 1940 Unknown [id number] 2.16.84 0.1.195915.3.579.2.593 194 Unknown [id number] 2.16.84 0.1.174936.3.579.2.593 194 Unknown [id number] 2.16.84 0.1.005265.3.579.2.593 194 Unknown [id number] 2.16.84 0.1.063944.3.579.2.593 194 Unknown [id number] 2.16.84 0.1.384012.3.579.2.593 1940 Unknown [id number] 2.16.84 0.1.563737.3.579.2.593 194 Unknown [id number] 2.16.84 0.1.793694.3.579.2.593 1940 Unknown [id number] 2.16.84 0.1.734262.3.579.2.593 1940 Unknown [id number] 2.16.84 0.1.777556.3.579.2.593 1940 Unknown [id number] 2.16.84 0.1.560846.3.579.2.593 1940 Unknown [id number] 2.16.8 40.1.635743.3.579.2.173 1940 Unknown [id number] 2.16.8 40.1.971362.3.579.2.173 1940 Unknown [id number] 2.16.8 40.1.533510.3.579.2.173 1940 Unknown [id number] 2.16.8 40.1.305970.3.579.2.173 1940 Unknown [id number] 2.16.8 40.1.419411.3.579.2.173 1940 Unknown [id number] 2.16.8 40.1.434254.3.579.2.173 1940 Unknown [id number] 2.16.840 .1.347187.3.579.2.1259 Unknown [id number] 2.16.8 40.1.095470.3.579.2.531 Social History Date Type Detail Facility Sex Assigned At [facility] [employer] Other Start: 05-12-2019 Tobacco smoking status Never smoked tobacco (finding) [facility] Start: 1940 Sex Assigned At Male [facility] Start: 03-01-2022 Tobacco smoking status NHIS Ex-smoker [employer] Phone: End: 02-19-1994 History of tobacco use Current smoker [facility] Phone: End: 02-19-1994 History of tobacco use Cigarette Smoker [employer] Phone: Start: 03-01-2022 Tobacco use and exposure Smokeless tobacco non-user [employer] Phone: Start: 03-01-2022 End: 08-09-2022 Alcohol intake Lifetime non-drinker (finding) [facility] Phone: Start: 1940 Sex Assigned At Not on file B [facility] [employer] Phone: Tobacco smoking status NHIS [facility] Functional Status Date Assessment Result Facility 11-23-2021 Functional Status N/A [facility] Clinical Notes 08-16-2021 to 01-31-2023 Note Date & Type Note Facility 01-31-2023 Evaluation note Encounter Date Diagnosis Assessment Notes Jan, 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 There is a 3.4 cm maximum AP infrarenal abdominal aortic aneurysm without complicating features. This is essentially stable from a year ago based on the CT scan. I recommend seeing him back in 2 years with a repeat duplex. There is no indication for any further workup or evaluation at this time all his questions were answered he understands agrees the plan. [email or web address] Other 02-16-2023 NoteEXAMINATION: XR CHEST 2 V HISTORY: COVID-19 pneumonia COMPARISON: No relevant comparison available. TECHNIQUE: 03/28/2022 FINDINGS: LUNGS: Mild bibasilar infiltrates. The upper lung zones are clear VASCULATURE: No increased pulmonary vasculature. PLEURA: No pneumothorax, effusion, or pleural thickening. CARDIAC: No cardiomegaly or cardiac silhouette abnormality. MEDIASTINUM: No visible mass or adenopathy. BONES: No fracture or visible bone lesion. Bilateral glenohumeral osteoarthritis OTHER: Negative. IMPRESSION: Mild bibasilar infiltrates Electronically authenticated by: ULISSES FRANCO Date: 2022-04-06 08:00[facility]02-09-2023 History of Present illness Narrative* Horace Parra, DO - 03/30/2022 10:13 AM EST Images from the original note were not included. EMERGENCY TRIAGE, TREAT AND TRANSPORT (ET3) DOCUMENTATION OF TELEHEALTH VISIT Date / Time: 03/27/2022 / 2340 Name: Chema Childs : 1940 SSN: (Not on file) EMS Agency: [facility] [x] Verbal consent obtained [] Implied consent - patient with potential emergency medical condition requiring assessment of capacity to refuse treatment and/or transport VITAL SIGNS: see flowsheet documentation Reason for Telehealth Visit: Chief Complaint Patient presents with Fall History of Present Illness: 81 yo male with PMH COPD with recent dx of COPD exacerbation/PNA on abx who slipped out of bed and was too weak to get up. Onset just prior to EMS call No LOC, etoh or AC. Pt denies injury Lift assist provided by EMS and pt back in bed but too weak to reposition himself. His regina is present and provides history as well as EMS. Pt initially declining EMS transport wants him to go Associated with gen fatigue, SOB, cough Additional pertinent PMHx, SocHx, FamHx: PMH COPD Meds albuterol, abx, steroids Social Lives w/ Review of Systems: Denies the following: CP, abd painfever Exam: General: Awake, no distress but frail and generally weak appearing ENT: normocephalic, atraumatic Pulmonary: No respiratory distress Cardiovascular: Well perfused Neurologic: Oriented to person, place, time and events. Moving all extremities equally. Psychiatric: Appropriate. Good insight and judgement. Medical Decision Makin yo male with low level fall from bed. No injury. VS w/ hypoxia and tachycardia. Hx of recent COPD/PNA indications progress or failed outpt treatment course. Pt initially refusing transport. Concern for PNA, acute respiratory failure, possible sepsis prompted prolonged discussion w/ pt andhis Regina about my serious concerns about his progressing illness and life threatening progression if he elected to stay home. Lab interpretation: blood glucose was within normal limits. Eventually after shared decision making, he agree to transport to ED. Disposition Supported by Telehealth Assessment: ET3 transport decisions: Transport to hospital EMS Disposition Reported: Same ET3 Encounter Completed by: Horace Parra DO documented in this [id number] Evaluation note* Encounter Date Diagnosis Assessment Notes Treatment Notes Treatment Clinical Notes Jan, Abdominal aortic aneurysm (AAA) without rupture, unspecified part (ICD-10 - I71.40) We reviewed today's updated CT imaging showing stable abdominal aortic aneurysm 3.2 cm in greatest diameter. This is unchanged from previous imaging. Pictures were reviewed with Dr. Haynes. We will continue to follow him along routine basis with annual surveillance duplex studies. He knows to call us in the meantime with any issues or concerns. He verbalizes understanding of all discussion today, agrees with this plan, and denies any questions. [email or web address] Other 10-05-2022 Hospital Discharge instructions Patient Education 11/23/2021 10:42:29 Prostatitis Prostatitis Prostatitis is swelling or inflammation of the prostate gland. The prostate is a walnut-sized glandthat is involved in the production of semen. It is located below a man's bladder, in front of the rectum. There are four types of prostatitis: Chronic nonbacterial prostatitis. This is the most common type of prostatitis. It may be associatedwith a viral infection or autoimmune disorder. Acute bacterial prostatitis. This is the least common type of prostatitis. It starts quickly and isusually associated with a bladder infection, high fever, and shaking chills. It can occur at any age. Chronic bacterial prostatitis. This type usually results from acute bacterial prostatitis that happens repeatedly (is recurrent) or has not been treated properly. It can occur in men of any age but is most common among middle-aged men whose prostate has begun to get larger. The symptoms are not as severe as symptoms caused by acute bacterial prostatitis. Prostatodynia or chronic pelvic pain syndrome (CPPS). This type is also called pelvic floor disorder. It is associated with increased muscular tone in the pelvis surrounding the prostate. What are the causes? Bacterial prostatitis is caused by infection from bacteria. Chronic nonbacterial prostatitis may becaused by: Urinary tract infections (UTIs). Nerve damage. A response by the body s disease-fighting system (autoimmune response). Chemicals in the urine. The causes of the other types of prostatitis are usually not known. What are the signs or symptoms? Symptoms of this condition vary depending upon the type of prostatitis. If you have acute bacterialprostatitis, you may experience: Urinary symptoms, such as: ?Painful urination. ?Burning during urination. ?Frequent and sudden urges to urinate. ?Inability to start urinating. ?A weak or interrupted stream of urine. Vomiting. Nausea. Fever. Chills. Inability to empty the bladder completely. Pain in the: ?Muscles or joints. ?Lower back. ?Lower abdomen. If you have any of the other types of prostatitis, you may experience: Urinary symptoms, such as: ?Sudden urges to urinate. ?Frequent urination. ?Difficulty starting urination. ?Weak urine stream. ?Dribbling after urination. Discharge from the urethra. The urethra is a tube that opens at the end of the penis. Pain in the: ?Testicles. ?Penis or tip of the penis. ?Rectum. ?Area in front of the rectum and below the scrotum (perineum). Problems with sexual function. Painful ejaculation. Bloody semen. How is this diagnosed? This condition may be diagnosed based on: A physical and medical exam. Your symptoms. A urine test to check for bacteria. An exam in which a health care provider uses a finger to feel the prostate (digital rectal exam). A test of a sample of semen. Blood tests. Ultrasound. Removal of prostate tissue to be examined under a microscope (biopsy). Tests to check how your body handles urine (urodynamic tests). A test to look inside your bladder or urethra (cystoscopy). How is this treated? Treatment for this condition depends on the type of prostatitis. Treatment may involve: Medicines to relieve pain or inflammation. Medicines to help relax your muscles. Physical therapy. Heat therapy. Techniques to help you control certain body functions (biofeedback). Relaxation exercises. Antibiotic medicine, if your condition is caused by bacteria. Warm water baths (sitz baths). Sitz baths help with relaxing your pelvic floor muscles, which helpsto relieve pressure on the prostate. Follow these instructions at home: Take wpia-[id number]-[id number] and prescription medicines only as told by your health care provider. If you were prescribed an antibiotic, take it as told by your health care provider. Do not stop taking the antibiotic even if you start to feel better. If physical therapy, biofeedback, or relaxation exercises were prescribed, do exercises as instructed. Take sitz baths as directed by your health care provider. For a sitz bath, sit in warm water that is deep enough to cover your hips and buttocks. Keep all follow-up visits as told by your health care provider. This is important. Contact a health care provider if: Your symptoms get worse. You have a fever. Get help right away if: You have chills. You feel nauseous. You vomit. You feel light-headed or feel like you are going to faint. You are unable to urinate. You have blood or blood clots in your urine. This information is not intended to replace advice given to you by your health care provider. Make sure you discuss any questions you have with your health care provider. Document Released: 02/02/2001 Document Revised: 04/20/2018 Document Reviewed: 10/26/2016 [employer] Patient Education 2020 [employer]. Follow Up Care 11/01/2021 10:45:28 With:MY GALDAMEZ, KONG Brown, URL Address: [address] [place] [address]. [place] [address] When:3 months [facility] 06-28-2022 Evaluation note* Encounter Date Diagnosis Assessment Notes Treatment Notes Treatment Clinical Notes Jul, Abdominal aortic aneurysm (AAA) 3.0 cm to 5.5 cm in diameter in male (ICD-10 - I71.4) Jul, Other Aortic ulcer wi th small aneurysm Review of the images today [id number] ulcer of the infrarenal aorta that does not appear to require intervention at this time. Some of the images were of poor quality transferred from the outside facility. We will plan to bring him back in [address] angiogram. If the area remains unchanged we will follow him with ultrasound. Patient and his were able to review the CT images with me today so they understand and all the questions were answered. [email or web address] Other Evaluation + Plan note Future Appointments Appointment Date:02/22/2022 01:20:00 PM Scheduled Provider:KONG PEPE PA-C Location:[facility] Appointment Type:URO Office Visit [facility] evaluation noteNo assessment information available [facility] Work Phone: Evaluation note* Diagnosis BPH with obstruction/lower urinary tract symptoms Hypertrophy of prostate with urinary obstruction and other lower urinary tract symptoms (LUTS) Dysuria documented in this encounter [employer] Work Phone: evalztxllo note* Diagnosis Fall, initial encounter- Primary Shortness of breath Tachycardia Tachycardia, unspecified [facility] Dysuria Frequency of micturition Urinary frequency documented in this encounter [facility] general Narrative - Reported* Type Description Date Medical History high cholestrol Medical History high blood pressure Medical History acid reflux Surgical History hemorrhoidectomy Hospitalization History acid reflux - observatio n [email or web address] Other [facility] general Narrative - Reported* Type Description Date Medical History high cholestrol Medical History high blood pressure Medical History acid reflux Surgical History hemorrhoidectomy Surgical History Laser Surgery on prostate Hospitalization History acid reflux - observatio n [email or web address] Other Hospital course Narrative No data available for this section [facility] progress note No data available for this section [facility] Summary Purpose Family History No Family History Records FoundNo Family History Records FoundNo Family History Records FoundNo Family History Records FoundNo Family History Records FoundNo Family History Records FoundNo Family History Records Found Advance Directives No Advanced Directives Records Found Advance Directive Response Recorded Date/ Time Advance Directives No May 29 12:03pm Chief Complaint and Reason for Visit Chief Complaint I71.4 Chief Complaint i71.4 Additional Source Comments (unrecognized sect ion and content) No Status Records FoundNo Status Records FoundNo Status Records FoundNo Status Records FoundNo Status Records FoundNo Status Records FoundNo Status Records Found INFORMATION SOURCE (unrecogn ized section and content) DATE CREATED AUTHOR 08/12/2021 [facility] Special[facility] DATE CREATED AUTHOR AUTHOR'S ORGANIZ ATION 03/15/2022 [facility] DATE CREATED AUTHOR AUTHOR'S ORGANIZ ATION 07/01/2022 [facility] DATE CREATED AUTHOR AUTHOR'S ORGANIZ ATION 07/04/2022 [facility] DATE CREATED AUTHOR AUTHOR'S ORGANIZ ATION 12/02/2022 [facility] DATE CREATED AUTHOR AUTHOR'S ORGANIZ ATION 01/15/2023 [facility] d[facility] Specialists EPIC DATE CREATED AUTHOR AUTHOR'S ORGANIZ ATION 02/24/2023 [facility] REASON FOR VISIT (unrecogniz ed section and content) Reason Comments Fall Patient Care team informatio n (unrecognized section and content) Team Status: Active Member Role Status Dates Kang Mcfadden MD Primary Care Provider Active Team Status: Inactive Member Role Status Dates Kang Mcfadden MD Primary Care Provider Active 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 NP-C Attending Provider Active Team Status: Inactive Member Role Status Dates Kang Mcfadden MD Primary Care Provider Active Oumar Haynes MD Attending Provider Active Dope Sprayer Relationship Specialty Start Date End Date Kang Mcfadden MD [address] [place] [address] PCP - General 03/01/22 Dope Sprayer Relationship Specialty Start Date End Date Kang Mcfadden MD [address] [place] [place] [address] PCP - General 03/01/22 Goals (unrecognized section and content) Goals may be documented in a n alternate section FOR RECORDS PERTAINING TO PATIENTS WHO ARE OR HAVE BEEN ENROLLED IN A CHEMICAL DEPENDENCY/SUBSTANCEABUSE PROGRAM, SOME INFORMATION MAY BE OMITTED. This clinical summary was aggregated from multiple sources. Caution should be exercised in using it in the provision of clinical care. This summary normalizes information from multiple sources, and as a consequence, information in this document may materially change the coding, format and clinical context of patient data. In addition, data may be omitted in some cases. CLINICAL DECISIONS SHOULD BE BASED ON THE PRIMARY CLINICAL RECORDS. [facility]. provides no warranty or guarantee of the accuracy or completeness of information in this document.
[2023-03-07 13:32] LABS: Anion Gap 16.9; BUN Creatinine Ratio 20.7; Calcium 8.9 mg/dL (8.5-10.1); Chloride 113 mmol/L (98-107); Estimated GFR (African America >60 (>=60); Estimated GFR (Non-African Ame >60 (>=60); Glucose 129 mg/dL (74-106); Magnesium 1.7 mg/dL (1.8-2.4); Potassium 4.9 mmol/L (3.5-5.1); Sodium 150 mmol/L (136-145)
== END 2023-03-07 12:17 | disposition home or self-care (01) ==
LOC: LAB 12:19
PROVIDERS: PCP Family Medicine; Visit Provider Family Medicine
DX: R25.2 Cramp and spasm (principal); I10 Essential (primary) hypertension
CPT/HCPCS: 36415; 80048; 83735

== ENCOUNTER 2023-05-18 11:04 | Outpatient (OUT) | payer MEDICARE, SELFPAY ==
--- OUTSIDE RECORDS SUMMARY | 2023-05-18 11:20 | XMS_ITS | CCD ---
Author Organization [facility] Care Team Providers Care [employer] T[employer] Name Role Phone Oumar Haynes Unavailable CLAYTON MCFADDEN Primary Care Physician MD Clayton Mcfadden Primary Care Provider MD Oumar Haynes Attending Provider [phone] Clayton Mcfadden MD Primary Care Provider [phone] KONG PEPE Attending Unavailable KONG PEPE Attending [...] SOSA ., DR THELMA Brown Admitting Unavailable EL RITO, DR ULISSES Ivey Consulting Unavailable SHAIKH Matilde [...] THELMA Brown Consulting Unavailable MAXI, DR SUSANA Conn Consulting UnavailBING Andersen Consulting Unavailable SISTER, JERALD Consulting Unavailable DONALD ., ELDER Consulting Unavailable DIAB ., [place] Consulting Unavailable HEMEYER ., DR KAPADIA Admitting Unavailable HEMEYER ., DR KAPADIA Attending Unavailable HEMEYER ., DR KAPADIA Primary Care Unavailable HEMEYER ., DR KAPADIA Attending Unavailable HEMEYER ., DR KAPADIA Primary Care Unavailable HEMEYER ., DR KAPADIA Admitting Unavailable THELMA BETTS Attending Unavailable HEMEYER ., [...] HEMEYER ., DR KAPADIA Primary Care Unavailable ELSIEEBSANGEETA, DR PAULINA Chin Consulting Unavailable SAMSA ., ZOILA Consulting Unavailable Hemeyer Clayton GARCÍA Primary Care Provider CLAYTON MCFADDEN Primary Care Unavailable SUZY HUNTER Referring Unavailable ERICA VERAS Referring Unavailable HEMECLAYTON SALEH Primary Care Unavailable HEMECLAYTON SALEH Primary Care Unavailable TRISTON GONSALVES Referring Unavailable HEMECLAYTON SALEH Primary Care Unavailable ERICA VERAS Admitting Unavailable ERICA VERAS Attending Unavailable HEMECLAYTON SALEH Primary Care Unavailable TRISTON GONSALVES Referring Unavailable HEMEYERCLAYTON Primary Care Unavailable ERICA VERAS Referring Unavailable CLAYTON MCFADDEN Attending Unavailable MD Clayton Mcfadden Primary Care Provider SHELBY Duff Attending Provider Horace Jasso Unavailable 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 Attending Unavailable 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 Admitting Unavailable Clayton Mcfadden Primary Care Unavailable Clayton Mcfadden MD Unavailable Clayton Mcfadden MD Primary Care Provider Jeannine SPIVEY, Briseida Unavailable Unavailable Allergies Allergy Classification Reported Allergen(s) Allergy Type Date of Onset Reaction(s) Facility (4 sources) Sulfamethoxazole / Trimethoprim; Translations: [sulfamethoxazole-tr imethoprim] Drug Allergy 3 Weal (disorder), Rash [facility] (2 sources) Tetracycline; Translations: [tetracycline] Drug Allergy Finding reported by subject or history provider (finding) [facility] (3 sources) Erythromycin Drug Allergy 8 Nausea And Vomiting [facility] (3 sources) levoFLOXacin Drug Allergy [address] [facility] Work Phone: (1 source) Sulfamethoxazole / Trimethoprim Drug Allergy [facility] (1 source) metFORMIN Drug Allergy 3 [facility] (1 source) Erythromycin Base Drug Allergy 3 Nausea Only [facility] Medications Current Medications Medication Drug Class(es) Dates Sig (Normalized) Sig (Original) [id number] 200 actuat albuterol 0.09 mg/actuat metered dose inhaler (2 sources) beta2-Adrenergic Agonist Start: 09-25-2022 take 2 puff(s) by inhalation every six hours for wheezing albuterol HFA 90 mcg/act inhaler Inhale 2 puffs every 6 (six) hours if needed for wheezing or shortness of breath. 0 09/25/2022 Active albuterol (2.5 M G/3ML) 0.083% nebulizer solution Take 2.5 mg by nebulization every 8 (eight) hours if needed for wheezing. 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 90 tablet 1 10/25/2022 04/23/2023 Active Start: 05-12-2019 allopurinol Re fills(s) 0 Start Date: 05/12/19 Status: Ordered Ascorbic Acid (2 sources) Vitamin C Start: 11-23-2021 Vitamin C Amaya y, Refills(s) 0 Start Date: 11/23/21 Status: Ordered take 1 tablet by mouth in the mo rning ascorbic acid (Vitamin C) 500 MG tablet Take 500 mg by mouth in the morning. 0 Active aspirin 81 mg oral tablet (6 sources) Platelet Aggregation Inhibitor, Nonsteroidal Anti-inflammatory Drug Start: 05-12-2019 take 1 mg by mouth once daily aspirin 81 mg oral tablet mg tab(s), Oral, Daily, Refills(s) 0 Start Date: 05/12/19 Status: Ordered take 1 tablet by mouth in the mo rning aspirin 81 MG EC tablet Take 81 mg by mouth in the morning. 0 Active atorvastatin 20 mg oral tablet (6 sources) HMG-CoA Reductase Inhibitor Start: 04-20-2022 End: 04-23-2023 take 1 tablet by mouth in the evening atorvastatin (Lipitor) 20 MG tablet Indications: Mixed hyperlipidemia (CMS/HCC) Take 1 tablet (20 mg) by mouth in the evening. 90 tablet 1 10/25/2022 04/23/2023 Active bimatoprost 0.1 mg/ml ophthalmic solution (2 sources) Prostaglandin Analog take 1 drop(s) into the eye(s) once daily bimatoprost (LUMIGAN) 0.01 % SOLN ophthalmic drops Place 1 drop into both eyes nightly 0 Active Bioflavonoid Products (REAL C PO) (2 sources) Bioflavonoid Products (REAL C PO) Take by mouth 0 Active brimonidine tartrate 2 mg/ml ophthalmic solution (3 sources) alpha-Adrenergic Agonist take 1 drop(s) into the eye(s) in the morning brimonidine (AlphaGAN P) 0.2 % ophthalmic solution Administer 1 drop into the right eye in the morning and 1 drop before bedtime. 0 Active take 1 drop(s) into the eye(s) three times daily brimonidine (ALPHAGAN) 0.2 % ophthalmic solution 1 drop 3 times daily 0 Active carboxymethylcellulose sodium 5 mg/ml ophthalmic solution (2 sources) Carboxymethylcel lulose Sodium (EYE DROPS) 0.5 % SOLN Apply to eye 0 Active doxycycline hyclate 100 mg oral capsule (1 source) Tetracycline -class Drug Doxycycline Hyclate 100 MG TAKE 1 CAPSULE ORALLY TWO TIMES DAILY 7 DAYS Oral for 7 Days Active Ecotrin Low Strength 81 MG (1 source) take 1 tablet by mouth once daily Ecotrin Low Strength 81 MG 1 tablet Orally Once a day for 30 day(s) Active 120 actuat formoterol fumarate 0.0048 mg/actuat / glycopyrrolate 0.009 mg/actuat metered dose inhaler (3 sources) beta2-Adrene rgic Agonist Start : 09-29 take 2 puff(s) by inhalation in the morning Bevespi Aerosphere 9-4.8 MCG/ACT aerosol Inhale 2 puffs in the morning and 2 puffs before bedtime. 0 09/29/2022 Active glycopyrrolate-f ormoterol (BEVESPI) 9-4.8 MCG/ACT AERO Inhale 2 puffs into the lungs 2 times daily 0 Active insulin aspart, human 100 unt/ml injectable solution (2 sources) Insulin Analog Start: 01-15-2023 insulin aspart (NovoLOG) 100 UNIT/ML injection Indications: Type 2 diabetes mellitus with stage 3a chronic kidney disease, with long-term current use of insulin (HCC) ([facility]/HCC) Sliding scale 3 times daily with meals; 141-200=3u, 201-250=5u, 251-300=8u, >300=12u 15 mL 0 01/15/2023 Active Start: 08-08-2022 NOVOLOG FLEXPE N 100 UNIT/ML injection pen 3 Units in the morning and at bedtime As directed 0 08/08/2022 Active ketorolac tromethamine 5 mg/ml ophthalmic solution (2 sources) Nonsteroidal Anti-inflammatory Drug, Cyclooxygenase Inhibitor Start: 12-08-2007 take 1 drop(s) into the eye(s) four times daily ketorolac (ACULAR) 0.5 % ophthalmic solution Apply 1 drop to eye 4 times daily 0 12/08/2007 Active latanoprost 0.05 mg/ml ophthalmic solution (1 source) Prostaglandin Analog take 1 drop(s) into the eye(s) at bedtime latanoprost (Xalatan) 0.005 % ophthalmic solution Administer 1 drop into both eyes at bedtime. 0 Active levoFLOXacin 500 mg oral tablet (1 source) Quinolone Antimicrobial Start: 11-23-2021 End: 12-21-2021 take 1 tablet by mouth every twenty-four hours Levaquin 500 mg Tab 500 mg = 1 tab(s), Oral, q24hr, X 4 week(s), # 28 tab(s), Refills(s) 0, Pharmacy: [facility]/pharmacy #[id number], 180, cm, 11/23/21 10:01:00 EDT, Height/Length Dosing, 84, kg, 11/23/21 10:01:00 EDT, Weight Dosing Start Date: 11/23/21 Stop Date: 12/21/21 Status: Ordered levothyroxine sodium 0.088 mg oral tablet (4 sources) l-Thyroxine Start: 01-15-2023 End: 07-14-2023 take 1 tablet by mouth before mealtime levothyroxine (Synthroid, Levoxyl) 88 MCG tablet Indications: Acquired hypothyroidism (CMS/HCC) Take 1 tablet (88 mcg) by mouth in the morning. Take before meals. 90 tablet 1 01/15/2023 07/14/2023 Active Start: 11-23-2021 take 1 capsule by mo [facility] once daily levothyroxine 88 mcg (0.088 mg) oral capsule 88 mcg = 1 cap(s), Oral, Daily, # 30 cap(s), Refills(s) 0 Start Date: 11/23/21 Status: Ordered take 1 tablet by [facility] once daily levothyroxine (SYNTHROID) 88 MCG tablet Take 1 tablet by mouth Daily 0 Active losartan potassium 50 mg oral tablet (8 sources) Angiotensin 2 Receptor [place] Start: 11-23-2021 End: 04-23-2023 take 1 tablet by mouth in the morning losartan (Cozaar) 50 MG tablet Indications: Benign essential hypertension (CMS/HCC) Take 1 tablet (50 mg) by mouth in the morning. 90 tablet 1 10/25/2022 04/23/2023 Active Start: 05-12-2019 losartan Oral, Daily, Refills(s) 0 Start Date: 05/12/19 Status: Ordered Lysine (7 sources) Start: 05-12-2019 take 1 mg by mouth o nce daily lysine mg, Oral, Daily, Refills(s) 0 Start Date: 05/12/19 Status: Ordered take 1 tablet by mouth in the mo rning L-lysine 1000 MG tablet Take 1,000 mg by mouth in the morning. 0 Active Magnesium Oxide (1 source) Start: 03-07-2023 magnesium oxid e (Mag-Ox) 400 mg tablet Indications: Hypernatremia Take 1 tablet twice daily for 10 days, then change to 1 tablet daily. 40 tablet 1 03/07/2023 Active meclizine hydrochloride 25 mg oral tablet (2 sources) Antiemetic take 1 tablet by mouth three times daily as needed meclizine (ANTIVERT) 25 MG tablet Take 25 mg by mouth 3 times daily as needed 0 Active 24 hr metFORMIN hydrochloride 750 mg extended release oral tablet (7 sources) Biguanide Start: 10-25-2022 End: 04-23-2023 take 1 tablet by mouth every twenty-four hours at mealtime metFORMIN XR (Glucophage-XR) 750 MG 24 hr tablet Indications: Type 2 diabetes mellitus with stage 3a chronic kidney disease, with long-term current use of insulin (HCC) (CMS/HCC) Take 1 tablet (750 mg) by mouth in the evening. Take with meals. 90 tablet 1 10/25/2022 04/23/2023 Active Start: 11-23-2021 take 1 tablet by yuan th once daily in the morning metformin 850 [...] MENS PO) Take by mouth 0 Active Multiple Vitamins-Minerals (Multi For Him) tablet (1 source) take 1 tablet by mouth in the morning Multiple Vitamins-Minerals (Multi For Him) tablet Take 1 tablet by mouth in the morning. 0 Active omeprazole 40 mg delayed release oral capsule (7 sources) Proton Pump Inhibitor Start: 01-16-20 End: 07-14-19 take 1 capsule by mouth before mealtime omeprazole (PriLOSEC) [address] capsule Indications: Gastroesophageal reflux disease without esophagitis Take 1 capsule (40 mg) by mouth in the morning. Take before meals. 90 capsule 1 01/15/2023 07/14/2023 Active Start: 05-12-2019 omeprazole Ora l, Daily, Refills(s) 0 Start Date: 05/12/19 Status: Ordered take 1 capsule by [facility] every twenty-four hours Omeprazole 20 MG 1 capsule Orally Once a day for 30 day(s) Active take 40 mg by mouth once daily O MEPRAZOLE PO Take 40 mg by mouth daily 0 Active Oxygen (1 source) oxygen (O2) gas Inhale 2 L/min at bedtime via nasal canula 0 Active polymyxin b 38746 unt/ml / trimethoprim 1 mg/ml ophthalmic solution (2 sources) Dihydrofolate Reductase Inhibitor Antibacterial, Polymyxin-class Antibacterial Start: 12-08-19 take 1 drop(s) into the eye(s) every four hours trimethoprim-polymyx in b (POLYTRIM) 70805-1.1 UNIT/ML-% ophthalmic solution Apply 1 drop to eye every 4 hours 0 12/08/2007 Active Probiotic Product (PROBIOTIC-10 PO) (1 source) Probiotic Produc t (PROBIOTIC-10 PO) Take by mouth 0 Active Ramipril (2 sources) Angiotensin Converting Enzyme Inhibitor Ramipril (ALTACE PO) Take by mouth 0 Active sodium chloride 9 mg/ml inhalation solution (1 source) Start: 02-27-19 sodium chloride 0.9 % nebulizer solution Take 3 mL by nebulization if needed 0 02/27/2023 Active tamsulosin hydrochloride 0.4 mg oral capsule (3 sources) alpha-Adrenergic [place] Start: 08-10-19 take 1 capsule by mouth at bedtime [...] Refills(s) 0 Start Date: 05/12/19 Status: Ordered 12 hr timolol 5 mg/ml ophthalmic solution (3 sources) beta-Adrenergic [place] take 1 drop(s) into the eye(s) in the morning timolol (Timoptic) 0.5 % ophthalmic solution Administer 1 drop into both eyes in the morning and 1 drop before bedtime. 0 Active take 1-2 drop(s) int o the eye(s) twice daily timolol (BETIMOL) 0.25 % ophthalmic solution 1-2 drops 2 times daily 0 Active vitamin b12 0.1 mg oral loze nge (2 sources) Vitamin B12 Cyanocobalamin ( VITAMIN B 12) 100 MCG LOZG Take by mouth 0 Active Completed/Discontinued Medications Medication Drug Class(es) Dates Sig (Normalized) Sig (Original) FIBER COMPLETE PO (1 source) take 1 tablet by mouth in the morning FIBER COMPLETE PO Take 1 tablet by mouth in the morning. 0 Active Fiber Complete TABS (1 source) Fiber Complete T ABS Take by mouth 0 Active lisinopril 20 mg oral tablet (3 sources) Angiotensin Converting Enzyme Inhibitor take 1 tablet by mouth every twenty-four hours Lisinopril 20 MG 1 tablet Orally Once a day for 30 day(s) Not-Taking/PRN Problems Active Problems Problem Classification Problem Date Documented Date Episodic/Chronic Aortic; peripheral; and visceral artery aneurysms (7 sources) Abdominal aortic aneurysm 3.0 to 5.5 centimeters in male; Translations: [Abdominal aortic aneurysm, without rupture] Onset: 08-16-2021 Resolved: 08-16-2021 Chronic Cardiac dysrhythmias (1 source) Tachycardia; Translations: [Tachycardia, unspecified] Episodic Chronic kidney disease (1 source) Chronic kidney disease stage 3A ; Translations: [Stage 3a chronic kidney disease (HCC)] Onset: 08-03-2022 08-03-2022 Chronic Chronic kidney disease (1 source) Chronic kidney disease; Translations: [CHRONIC KIDNEY DISEASE STAGE 3A] Onset: 08-05-2021 Chronic obstructive pulmonary disease and bronchiectasis (5 sources) Emphysema, unspecified; Translations: [Chronic obstructive pulmonary disease with (acute) exacerbation] Onset: 04-03-2022 Resolved: 09-25-2022 08-03-2022 Chronic Coronary atherosclerosis and other heart disease (2 sources) Atherosclerotic heart disease of [place] coronary artery without angina pectoris; Translations: [Coronary atherosclerosis] Onset: 05-03-2022 08-03-2022 Chronic Diabetes mellitus with complications (7 sources) Type 2 diabetes mellitus with diabetic chronic kidney disease; Translations: [Insulin treated type 2 diabetes mellitus] Onset: 02-06-2022 Chronic Diabetes mellitus without complication (1 source) Type 2 diabetes mellitus without complications; Translations: [TYPE 2 DM WITHOUT COMPLICATIONS] Onset: 05-03-2022 Chronic Disorders of lipid metabolism (7 sources) Hyperlipidemia, unspecified; Translations: [Pure hypercholesterolemia, unspecified] Onset: 02-01-2022 Chronic E Codes: Adverse effects of medical drugs (1 source) Adverse effect of insulin and oral hypoglycemic [antidiabetic] drugs, initial encounter; Translations: [ADVERS EFF INSULIN ORAL HG RX INIT] Onset: 05-03-2022 Episodic E Codes: Fall (1 source) Fall; Translations: [Unspecified fall, initial encounter] Episodic Esophageal disorders (2 sources) Gastroesophageal reflux disease; Translations: [Gastroesophageal reflux disease without esophagitis] Onset: 08-03-2022 05-12-2019 Chronic Essential hypertension (3 sources) Hypertensive disorder; Translations: [Essential (primary) hypertension] Onset: 05-03-2022 05-12-2019 Chronic Genitourinary symptoms and ill-defined conditions (2 sources) Urge incontinence; Translations: [Urge incontinence] Onset: 12-01-2022 Chronic Glaucoma (5 sources) Glaucoma; Translations: [Bilateral primary open angle glaucoma] Onset: 08-06-2018 Resolved: 09-25-2022 05-12-2019 Chronic Gout and other crystal arthropathies (3 sources) Gout; Translations: [Chronic gout, unspecified, without tophus (tophi)] Onset: 04-23-2022 05-12-2019 Chronic Hepatitis (1 source) Nonalcoholic steatohepatitis; Translations: [Nonalcoholic steatohepatitis (KAHN)] Onset: 08-03-2022 08-03-2022 Chronic Hyperplasia of prostate (10 sources) Benign prostatic hypertrophy with outflow obstruction; Translations: [Benign prostatic hyperplasia with lower urinary tract symptoms] Onset: 12-23-2015 Chronic Hypertension with complications and secondary hypertension (6 sources) Hypertensive chronic kidney disease with stage 1 through stage 4 chronic kidney disease, or unspecified chronic kidney disease; Translations: [Hypertensive renal disease] Onset: 02-05-2022 Chronic Inflammatory conditions of male genital organs (1 source) Prostatitis; Translations: [Inflammatory disease of prostate, unspecified] Onset: 11-23-2021 Episodic Malaise and fatigue (5 sources) Chronic fatigue, unspecified; Translations: [Fatigue] Onset: 09-21-2021 Chronic Menopausal disorders (1 source) Hormone replacement therapy; Translations: [HORMONE REPLACEMENT THERAPY] Onset: 05-03-2022 Episodic Occlusion or stenosis of precerebral arteries (2 sources) Atherosclerosis of left carotid artery; Translations: [Occlusion and stenosis of left carotid artery] Onset: 12-23-2015 Resolved: 09-25-2022 08-03-2022 Chronic Osteoarthritis (3 sources) Arthritis of left hip; Translations: [Unilateral primary osteoarthritis, left hip] Onset: 08-03-2022 08-03-2022 Chronic Other aftercare (1 source) intermediate (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 of aspirin; Translations: [SENIOR CARE CURRENT USE OF ASPIRIN] Onset: 05-03-2022 Episodic Other aftercare (1 source) Other intermission coordinator (current) drug therapy; Translations: [OTH DRY CHAIN OFFBEARER CURRENT DRUG THERAPY] Onset: 05-03-2022 Episodic Other aftercare (1 source) intermediate (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 of oral hypoglycemic drugs; Translations: [DRY CHAIN OFFBEARER USE ORAL HYPOGLYCEMIC DX] Onset: 05-03-2022 Episodic Other connective tissue disease (5 sources) Muscle weakness (generalized); Translations: [MUSCLE WEAKNESS GENERALIZED] Onset: 04-24-2022 Episodic Other diseases of bladder and urethra (1 source) Overactive bladder; Translations: [Overactive bladder] Onset: 10-19-2022 10-25-2022 Chronic Other diseases of kidney and ureters (3 sources) Other obstructive and reflux uropathy; Translations: [Other obstructive and reflux uropathy] Onset: 03-01-2022 Episodic Other eye disorders (1 source) Bilateral vitreous degeneration of eyes; Translations: [Vitreous degeneration, bilateral] Onset: 06-09-2015 08-03-2022 Chronic Other lower respiratory disease (1 source) Interstitial lung disease; Translations: [Interstitial pulmonary disease, unspecified] Onset: 08-03-2022 08-03-2022 Chronic Other lower respiratory disease (4 sources) Other nonspecific abnormal finding of lung field; Translations: [OTH NONSPECIFIC ABN FIND LNG FIELD] Onset: 06-26-2022 Episodic Other male genital disorders (1 source) Impotence 05-12-2019 Chronic Other male genital disorders (1 source) Erectile dysfunction co-occurrent and due to arterial insufficiency; Translations: [Erectile dysfunction due to arterial insufficiency] Onset: 08-03-2022 08-03-2022 Chronic Other nervous system disorders (1 source) Difficulty in walking, not elsewhere classified; Translations: [DIFFICULTY IN WALKING NEC] Onset: 04-24-2022 Chronic Other nutritional; endocrine; and metabolic disorders (1 source) Hypomagnesemia; Translations: [Hypomagnesemia] Onset: 03-07-2023 03-07-2023 Chronic Other upper respiratory infections (3 sources) [...] 12-01-2022 Episodic Respiratory failure; insufficiency; arrest (adult) (3 sources) Acute and chronic respiratory failure with hypoxia; Translations: [Dependence on supplemental oxygen] Onset: 04-23-2022 08-03-2022 Chronic Respiratory failure; insufficiency; arrest (adult) (1 source) Acute respiratory failure with hypoxia; Translations: [ACUTE RESPIRATORY FAIL W/HYPOXIA] Onset: 05-03-2022 Episodic Retinal detachments; defects; vascular occlusion; and retinopathy (1 source) Retinal disorder; Translations: [Unspecified retinal disorder] Onset: 08-03-2022 08-03-2022 Chronic Septicemia (except in labor) (4 sources) Sepsis, unspecified organism; Translations: [SEPSIS UNSPECIFIED ORGANISM] Onset: 04-19-2022 Episodic Thyroid disorders (2 sources) Hypothyroidism, unspecified; Translations: [Acquired hypothyroidism] Onset: 05-03-2022 08-03-2022 Chronic Unclassified (1 source) ACIDOSIS UNSPECIFIED; Translations: [ACIDOSIS UNSPECIFIED] Onset: 05-03-2022 Unclassified (1 source) PERSONAL HISTORY OF COVID-19; Translations: [PERSONAL HISTORY OF COVID-19] Onset: 04-03-2022 Unclassified (1 source) Abdominal aortic aneurysm, without rupture, unspecified; Translations: [Abdominal aortic aneurysm, without rupture, unspecified] Onset: 01-31-2023 Viral infection (4 sources) COVID-19; Translations: [COVID-19] Onset: 04-05-2022 Past or Other Problems Problem Classification Problem Date Documented Date Episodic/Chronic Biliary tract disease (1 source) Biliary calculus; Translations: [Calculus of gallbladder without cholecystitis without obstruction] Onset: 08-03-2022 08-03-2022 Episodic Genitourinary symptoms and ill-defined conditions (6 sources) Dysuria; Translations: [Dysuria] Onset: 03-01-2022 Episodic Heart valve disorders (1 source) Systolic murmur; Translations: [Cardiac murmur, unspecified] Onset: 08-03-2022 08-03-2022 Episodic Inflammation; infection of eye (except that caused by tuberculosis or sexually transmitteddisease) (1 source) Blepharitis; Translations: [Squamous blepharitis unspecified eye, unspecified eyelid] Onset: 08-03-2022 08-03-2022 Episodic Nutritional deficiencies (1 source) Moderate protein energy malnutrition; Translations: [Moderate protein-calorie malnutrition] Onset: 08-03-2022 Resolved: 09-25-2022 09-25-2022 Chronic Other aftercare (1 source) Polypharmacy ; Translations: [Other intermission coordinator (current) drug therapy] Onset: 08-10-2019 09-25-2022 Episodic Other connective tissue disease (1 source) Muscle weakness; Translations: [Muscle weakness (generalized)] Onset: 04-08-2022 Resolved: 09-25-2022 09-25-2022 Episodic Other diseases of veins and lymphatics (1 source) Vascular insufficiency; Translations: [Venous insufficiency (chronic) (peripheral)] Onset: 08-03-2022 08-03-2022 Episodic Other injuries and conditions due to external causes (1 source) History of falling; Translations: [HISTORY OF FALLING] Onset: 04-03-2022 Episodic Other lower respiratory disease (2 sources) Dyspnea; Translations: [Shortness of breath] Onset: 03-28-2022 Episodic Other lower respiratory disease (2 sources) Shortness of breath; Translations: [SHORTNESS OF BREATH] Onset: 04-03-2022 Episodic Other nutritional; endocrine; and metabolic disorders (1 source) Hyperuricemia; Translations: [Hyperuricemia without signs of inflammatory arthritis and tophaceous disease] Onset: 08-03-2022 08-03-2022 Episodic Other nutritional; endocrine; and metabolic disorders (1 source) Overweight; Translations: [Overweight] Onset: 08-03-2022 08-03-2022 Episodic Other screening for suspected conditions (not mental disorders or infectious disease) (4 sources) Encounter for screening for malignant neoplasm of prostate; Translations: [ENC SCREEN MALIG NEOPLASM PROSTATE] Onset: 03-02-2022 Episodic Other upper respiratory disease (1 source) Bowing of vocal cord; Translations: [Other diseases of vocal cords] Onset: 08-19-2015 09-25-2022 Episodic Pleurisy; pneumothorax; pulmonary collapse (1 source) Discoid atelectasis; Translations: [Atelectasis] Onset: 08-03-2022 08-03-2022 Episodic Screening and history of mental health and substance abuse codes (2 sources) Personal history of nicotine dependence; Translations: [Ex-smoker] Onset: 03-12-2015 09-25-2022 Episodic Unclassified (1 source) Abdominal aortic aneurysm (AAA) without rupture, unspecified part I71.40 Varicose veins of lower extremity (1 source) Varicose veins of bilateral lower limbs; Translations: [Asymptomatic varicose veins of bilateral lower extremities] Onset: 08-03-2022 08-03-2022 Episodic Results Test Name Value Interpretation Reference Range Facility US aortaon 01-31-2023 US aorta [facility] [place] [address] [place] [id number] Ultrasound Report Signed Patient: Chema Childs SR MR#: [id number] : 1940 Acct:[id number] Age/Sex: 82 / M ADM Date: 01/31/23 Loc: [facility] Room: Type: [facility] Attending Dr: 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 [employer] PRECINCT-C Ordering Provider: 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 APRN Date of [...] Horace Jasso MD01/31/2023 11:09 AM Dictation Location: [place] [address] Tech: Elder Hoyt Transcribed By: [facility] 01/31/23 110 Dictated By: Horace Jasso MD 01/31/231105 Signed By: 01/31/231108 [facility] Cult,Urineon 12-02-2022 Cult,Urine Specimen Description .CLEAN CATCH URINE Culture NO GROWTH Report Status FINAL 12/02/2022 [facility] Comment on above: Performed By: #### U #### [place] [id number] Executive Coordinator: Sandip Smith MD [facility] [address] [place] [address] [place] [address] Executive Coordinator: Ulisses Gaines MD OPERATIVE REPORTon 3 OPERATIVE REPORT [address] [id number] OPERATIVE REPORT PATIENT NAME: CHEMA HCILDS : 1940 MED REC NO: [id number] ROOM: ACCOUNT NO: [id number] ADMIT DATE: 10/03/2022 PROVIDER: Erica Veras DATE OF PROCEDURE: 10/03/2022 SURGEON: Dr. Erica Veras. CORRUGATOR HELPER: None. PREOPERATIVE DIAGNOSES: 1. BPH with lower urinary tract symptoms. 2. Urinary frequency. 3. Urinary urgency. 4. Urinary weak stream. POSTOPERATIVE DIAGNOSES: 1. BPH with lower urinary tract symptoms. 2. Urinary frequency. 3. Urinary urgency. 4. Urinary weak stream. PROCEDURES PERFORMED: Photoselective vaporization of the prostate with GreenLight laser XPS. ANESTHESIA: General. COMPLICATIONS: None. ESTIMATED BLOOD LOSS: Minimal. SPECIMENS: None. PROSTHESIS: A 22-Syrian Gould catheter. DISPOSITION: Stable. FINDINGS: Trilobar hyperplasia of the prostate. INDICATIONS: This patient is an 82-year-old male with extensive lower urinary tract symptoms, here now for definitive therapy in the form of PVP GreenLight DESCRIPTION OF PROCEDURE: The patient was taken back to the operating room after informed consent including all risks, benefits, and alternatives were obtained. The patient was transferred from the [facility] onto the operating room table, where he was induced under general anesthesia, and given IV Ancef for preoperative antibiotic prophylaxis. To begin the case, he was prepped and draped in the normal sterile fashion, and placed in the dorsal lithotomy. He had a 24-Syrian sheath with a 30-degree lens passed through [...] then removed the scope and inserted a 22-Syrian three-way Gould catheter and hand irrigated to clear. He was then awoken from general anesthesia, transferred to the [facility], and taken to the PACU in satisfactory condition by Nursing and Anesthesia Teams. PLAN: The patient will be discharged home per PACU criterion and follow up with us in [id number] days for Gould catheter removal. ERICA VERAS /[id number] Doc#: [id number] CC: [facility] Cult,Urineon 08-29-2022 Cult,Urine Specimen Description .CLEAN CATCH URINE Culture NO GROWTH Report Status FINAL 08/29/2022 [facility] Comment on above: Performed By: #### U RC #### [address] [address] Executive Coordinator: Sandip Smith MD [facility] [address] [place] [address] [place] [address] Executive Coordinator: Ulisses Gaines MD Urinalysis w/ Microon 2022 Bacteria 1+ Abnormal NONE [facility] Comment on above: Performed By: #### U AMIC #### [address] [place] [address] Executive Coordinator: Ulisses Gaines MD Bilirubin, SemiQt,Ur Negative Normal NEG [facility] Comment on above: Performed By: #### U AMIC #### [address] [place] [address] Executive Coordinator: Ulisses Gaines MD Blood, Urine Negative Normal NEG [facility] Comment on above: Performed By: #### U AMIC #### [address] [place] [address] Executive Coordinator: Ulisses Gaines MD Clarity (U) Clear Normal CLEAR [facility] Comment on above: Performed By: #### U AMIC #### [address] [place], [place] [id number] Executive Coordinator: Ulisses Gaines MD Color (U) Yellow Normal YEL [facility] Comment on above: Performed By: #### U AMIC #### [facility] [address] [place], [place] [id number] Executive Coordinator: Ulisses Gaines MD Epithelial cells LM Ql (Urine sed) 0 TO 2 Normal 0-5 [facility] Comment on above: Performed By: #### U AMIC #### [facility] [address] [place], [place] [id number] Executive Coordinator: Ulisses Gaines MD Glucose Ql (U) Negative Normal NEG [facility] Comment on above: Performed By: #### U AMIC #### [facility] [address] [place] [address] Dr. [place], [place] [id number] Executive Coordinator: Ulisses Gaines MD Ketones Ql (U) Negative Normal NEG [facility] Comment on above: Performed By: #### U AMIC #### [facility] [address] [place], [place] [id number] Executive Coordinator: Ulisses Gaines MD Leukocyte esterase Test strip Ql (U) Negative Normal NEG [facility] Comment on above: Performed By: #### U AMIC #### [facility] [address] [place], [place] [id number] Executive Coordinator: Ulisses Gaines MD Nitrite,Ur Negative Normal NEG [facility] Comment on above: Performed By: #### U AMIC #### [facility] [address] [place], [place] [id number] Executive Coordinator: Ulisses Gaines MD PH,Ur 6.0 Normal 5.0-9.0 [facility] Comment on above: Performed By: #### U AMIC #### [facility] [address] [place], [place] [id number] Executive Coordinator: Ulisses Gaines MD Protein Ql (U) Negative Normal NEG [facility] Comment on above: Performed By: #### U AMIC #### [facility] [address] [place] [address] Dr. [place], [place] [id number] Executive Coordinator: Ulisses Gaines MD Spec. Advance,Ur 1.015 Normal 1.010-1.020 [facility] Comment on above: Performed By: #### U AMIC #### [facility] [address] [place] [address] Dr. [place], [place] [id number] Executive Coordinator: Ulisses Gaines MD Urine RBC's None Normal 0-2 [facility] Comment on above: Performed By: #### U AMIC #### [address] [place], [place] [id number] Executive Coordinator: Ulisses Gaines MD Urine WBC's 0 TO 2 Normal 0-5 [facility] Comment on above: Performed By: #### U AMIC #### [address] [place], [place] [id number] Executive Coordinator: Ulisses Gaines MD Urobilinogen,Ur Normal Normal NORM [facility] Comment on above: Performed By: #### U AMIC #### [address] [place], [place] 9593983 Executive Coordinator: Ulisses Gaines MD Cult,Urineon 08-10-2022 Cult,Urine Specimen Description .CLEAN CATCH URINE Culture NO GROWTH Report Status FINAL 08/10/2022 Normal [facility] Comment on above: Performed By: #### U RC #### [facility] [address] [place] [address] Executive Coordinator: Sandip Smith MD [facility] [address] [place] [address] [place] [address] Executive Coordinator: Ulisses Gaines MD HEMOGLOBINon 07-03-2022 Hemoglobin (Bld) [Mass/Vol] 13.6 g/dL Critically low 14.0-18.0 [facility] Comment on above: Performed By: #### P OCGLUC #### [facility] [address] [place] [address] [address] CHEST WO CONon [...] PAULINA BOWLES Date: 2022-06-26 16:34 Normal [facility] PULMONARY FUNCTION TESTon PULMONARY FUNCTION TEST PULMONARY [...] oxygen. Clinical correlation is required. Normal [facility] Cult,Urineon 06-15-2022 Cult,Urine Specimen Description .CLEAN CATCH URINE Culture NO GROWTH Report Status FINAL 06/15/2022 Normal [facility] Comment on above: Performed By: #### U RC #### [facility] [address] [place] [address] Executive Coordinator: Sandip Smith MD [facility] [address] [place] [address] Executive Coordinator: Ulisses Gaines MD CBC AUTO DIFFon 04-19-2022 BASO # 0.0 103/ul Normal 0.0-0.1 [facility] Comment on above: Performed By: #### L ACT #### [facility] [address] [place] [address] Dr. Kerrie Stark Basophils/100 WBC (Bld) 0.2 % Normal 0.2-2.0 [facility] Comment on above: Performed By: #### L ACT #### [facility] [address] [place] [address] Dr. Kerrie Stark EO # 0.0 103/ul Normal 0.0-0.7 [facility] Comment on above: Performed By: #### L ACT #### [facility] [address] [place] [address] Dr. Kerrie Stark Eosinophils/100 WBC (Bld) 0.2 % Critically low 0.9-7.0 [facility] Comment on above: Performed By: #### L ACT #### [facility] [address] [place] [address] Dr. Kerrie Stark Erythrocyte distribution width (RBC) [Ratio] 13.3 % Normal 11.0-15.0 [facility] Comment on above: Performed By: #### L ACT #### [facility] [address] [place] [address] [address] Kerrie Stark Hematocrit (Bld) [Volume fraction] 38.8 % Critically low 42.0-54.0 [facility] Comment on above: Performed By: #### L ACT #### [facility] [address] [place] [address] [address] Kerrie Stark Hemoglobin (Bld) [Mass/Vol] 13.1 g/dL Critically low 14.0-18.0 [facility] Comment on above: Performed By: #### L ACT #### [facility] [address] [place] [address] [address] Kerrie Stark IG # 0.35 10e3/ul Critically high 0.00-0.03 [facility] Comment on above: Performed By: #### L ACT #### [facility] [address] [place] [address] Dr. Kerrie Stark IG % 2.6 % Critically high 0.0-0.5 [facility] Comment on above: Performed By: #### L ACT #### [facility] [address] [place] [address] Dr. Kerrie Stark LYMPH # 1.3 103/ul Normal 1.2-3.8 [facility] Comment on above: Performed By: #### L ACT #### [facility] [address] [place] [address] Dr. Kerrie Stark Lymphocytes/100 WBC (Bld) 9.7 % Critically low 20.5-60.0 [facility] Comment on above: Performed By: #### L ACT #### [facility] [address] [place] [address] Dr. Kerrie Stark MANUAL DIFF REQ NO Normal [facility] Comment on above: Performed By: #### L ACT #### [facility] [address] [place] [address] Dr. Kerrie Stark MCH (RBC) [Entitic mass] 32.8 pg Normal 25.9-34.0 [facility] Comment on above: Performed By: #### L ACT #### [facility] [address] [place] [address] Dr. Kerrie Stark MCHC (RBC) [Mass/Vol] 33.8 g/dL Normal 29.9-35.2 [facility] Comment on above: Performed By: #### L ACT #### [facility] [address] [place] [address] [address] Kerrie Stark MCV (RBC) [Entitic vol] 97.2 fL Critically high 80.0-94.0 [facility] Comment on above: Performed By: #### L ACT #### [facility] [address] [place] [address] [address] Kerrie Stark MONO # 0.8 103/ul Normal 0.3-0.8 [facility] Comment on above: Performed By: #### L ACT #### [facility] [address] [place] [address] Dr. Kerrie Stark Monocytes/100 WBC (Bld) 5.9 % Normal 1.7-12.0 [facility] Comment on above: Performed By: #### L ACT #### [facility] [address] [place] [address] [address] Kerrie Stark NEUT # 10.8 103/ul Critically high 1.4-6.5 [facility] Comment on above: Performed By: #### L ACT #### [facility] [address] [place] [address] Dr. Kerrie Stark Neutrophils/100 WBC (Bld) 81.4 % Critically high 43.0-75.0 [facility] Comment on above: Performed By: #### L ACT #### [facility] [address] [place] [address] [address] Kerrie Stark Platelet mean volume (Bld) [Entitic vol] 10.4 fL Normal 9.5-13.5 [facility] Comment on above: Performed By: #### L ACT #### [facility] [address] [place] [address] [address] Kerrie Stark PLT 158 103/ul Normal 150-450 [facility] Comment on above: Performed By: #### L ACT #### [facility] [address] [place] [address] [address] Kerrie Stark RBC 3.99 106/ul Critically low 4.70-6.10 [facility] Comment on above: Performed By: #### L ACT #### [facility] [address] [place] [address] [address] Kerrie Stark WBC 13.2 103/ul Critically high 4.0-11.0 [facility] Comment on above: Performed By: #### L ACT #### [facility] [address] [place] [address] [address] Kerrie Stark GLYCOHEMOGLOBIN A1Con 2022 ADA RECOMMENDATION SEE BELOW Normal [facility] Comment on above: Result Comment: ADA RECOMMENDED LIMIT 4.0 - 6.0 ADA THERAPEUTIC TARGET < 7.0 ACTION SUGGESTED > 7.0 Performed By: #### P OCGLUC #### [facility] [address] [place] [address] Dr. Kerrie Stark Glucose [Mass/Vol] 206 mg/dL Normal [facility] Comment on above: Performed By: #### P OCGLUC #### [facility] [address] [place] [address] Dr. Kerrie Stark HbA1c (Bld) [Mass fraction] 8.8 % Critically high 4.5-6.2 [facility] Comment on above: Performed By: #### P OCGLUC #### [facility] [address] [place] [address] Dr. Kerrie Stark LIPID PROFILEon 04-19-2022 CHOL-HDL RATIO NORM SEE BELOW Normal [facility] Comment on above: Result Comment: 3.3 - 4.4 LOW RISK 4.4 - 7.1 AVERAGE RISK 7.1 - 11.0 MODERATE RISK >11.0 HIGH RISK Performed By: #### D DIM #### [facility] [address] [place] [address] Dr. Kerrie Stark Cholesterol [Mass/Vol] 134 mg/dL Normal <=200 [facility] Comment on above: Performed By: #### D DIM #### [facility] [address] [place] [address] Dr. Kerrie Stark Cholesterol in HDL [Mass/Vol] 46 mg/dL Normal 40-60 [facility] Comment on above: Performed By: #### D DIM #### [facility] [address] [place] [address] [address] Kerrie Stark Cholesterol in LDL [Mass/Vol] 65.8 mg/dL Normal [facility] Comment on above: Performed By: #### D DIM #### [facility] [address] [place] [address] [address] Kerrie Stark Cholesterol.total/Chol esterol in HDL [Mass ratio] 2.9 {ratio} Normal [facility] Comment on above: Performed By: #### D DIM #### [facility] [address] [place] [address] [address] Kerrie Stark HDL NORMAL > or = 60 mg/dl - LOW CARDIOVASCULAR RISK <40 mg/dl - HIGH CARDIOVASCULAR RISK Normal [facility] Comment on above: Performed By: #### D DIM #### [facility] [address] [place] [address] Dr. Kerrie Stark LDL CALC NORMAL SEE BELOW Normal [facility] Comment on above: Result Comment: <100 mg/dl OPTIMAL 100 - 129 mg/dl NEAR OR ABOVE OPTIMAL 130 - 159 mg/dl BORDERLINE HIGH 160 - 189 mg/dl HIGH >190 mg/dl VERY HIGH Performed By: #### D DIM #### [facility] [address] [place] [address] Dr. Kerrie Stark Triglyceride [Mass/Vol] 111 mg/dL Normal <=150 [facility] Comment on above: Performed By: #### D DIM #### [facility] [address] [place] [address] [address] Kerrie Stark VLDL CALC 22.2 mg/dL Normal [facility] Comment on above: Performed By: #### D DIM #### [facility] [address] [place] [address] Dr. Kerrie Stark PROF 14(COMP METB)on 023 Albumin [Mass/Vol] 2.6 g/dL Critically low 3.4-5.0 [facility] Comment on above: Performed By: #### D DIM #### [facility] [address] [place] [address] Dr. Kerrie Stark Albumin/Globulin [Mass ratio] 0.8 {ratio} Normal [facility] Comment on above: Performed By: #### D DIM #### [facility] [address] [place] [address] Dr. Kerrie Stark ALP [Catalytic activity/Vol] 49 U/L Normal 46-116 [facility] Comment on above: Performed By: #### D DIM #### [facility] [address] [place] [address] Dr. Kerrie Stark ALT [Catalytic activity/Vol] 27 U/L Normal 16-63 [facility] Comment on above: Performed By: #### D DIM #### [facility] [address] [place] [address] Dr. Kerrie Stark Anion gap [Moles/Vol] 12.1 mmol/L Normal [facility] Comment on above: Performed By: #### D DIM #### [facility] [address] [place] [address] Dr. Kerrie Stark AST [Catalytic activity/Vol] 19 U/L Normal 15-37 [facility] Comment on above: Performed By: #### D DIM #### [facility] [address] [place] [address] Dr. Kerrie Stark Bilirubin [Mass/Vol] 0.6 mg/dL Normal 0.2-1.0 [facility] Comment on above: Performed By: #### D DIM #### [facility] [address] [place] [address] Dr. Kerrie Stark Calcium [Mass/Vol] 9.0 mg/dL Normal 8.5-10.1 [facility] Comment on above: Performed By: #### D DIM #### [facility] [address] [place] [address] Dr. Kerrie Stark Chloride [Moles/Vol] 102 mmol/L Normal 98-107 [facility] Comment on above: Performed By: #### D DIM #### [facility] [address] [place] [address] Dr. Kerrie Stark CO2 [Moles/Vol] 27.0 mmol/L Normal 21.0-32.0 [facility] Comment on above: Performed By: #### D DIM #### [facility] [address] [address] [address] Kerrie Stark Creatinine [Mass/Vol] 0.90 mg/dL Normal 0.70-1.30 [facility] Comment on above: Performed By: #### D DIM #### [facility] [address] [place] [address] Dr. Kerrie Stark EGFR-AF COSTA RICAN >60 Normal >=60 [facility] Comment on above: Performed By: #### D DIM #### [facility] [address] [address] [address] Kerrie Stark EGFR-NON AF COSTA RICAN >60 Normal >=60 [facility] Comment on above: Performed By: #### D DIM #### [facility] [address] [place] [address] Dr. Kerrie Stark Globulin (S) [Mass/Vol] 3.2 g/dL Normal [facility] Comment on above: Performed By: #### D DIM #### [facility] [address] [place] [address] Dr. Kerrie Stark Glucose [Mass/Vol] 104 mg/dL Normal 74-106 [facility] Comment on above: Performed By: #### D DIM #### [facility] [address] [place] [address] Dr. Kerrie Stark Potassium [Moles/Vol] 4.1 mmol/L Normal 3.5-5.1 [facility] Comment on above: Performed By: #### D DIM #### [facility] [address] [place] [address] Dr. Kerrie Stark Protein [Mass/Vol] 5.8 g/dL Critically low 6.4-8.2 Th [facility] Comment on above: Performed By: #### D DIM #### [facility] [address] [place] [address] Dr. Kerrie Stark Sodium [Moles/Vol] 137 mmol/L Normal 136-145 [facility] Comment on above: Performed By: #### D DIM #### [facility] [address] [place] [address] Dr. Kerrie Stark Urea nitrogen [Mass/Vol] 31.0 mg/dL Critically high 7.0-18.0 [facility] Comment on above: Performed By: #### D DIM #### [facility] [address] [place] [address] Dr. Kerrie Stark Urea nitrogen/Creatinine [Mass ratio] 34.4 mg/mg Normal [facility] Comment on above: Performed By: #### D DIM #### [facility] [address] [place] [address] Dr. Kerrie Stark TSHon 04-19-2022 TSH 0.699 uIU/mL Normal 0.358-3.740 [facility] Comment on above: Performed By: #### D DIM #### [facility] [address] [place] [address] Dr. Kerrie Stark VITAMIN D 25 OHon 04-19-2022 VIT D 25-OH 53.9 ng/mL Normal [facility] Comment on above: Performed By: #### D DIM #### [facility] [address] [place] [address] Dr. Kerrie Stark VIT D RANGES SEE BELOW Normal [facility] Comment on above: Result Comment: <20 ng/mL Vit D deficient 20 - <30 ng/mL Vit D insufficient 30 - 100 ng/mL Vit D sufficient >100 ng/mL Potential Toxicity Performed By: #### D DIM #### [facility] [address] [place] [address] Dr. Kerrie Stark CBC W MANUAL DIFFon 04-08-19 23 ATYPICAL LYMPH # Normal [facility] Comment on above: Performed By: #### L ACT #### [facility] [address] [place] [address] Dr. Kerrie Stark ATYPICAL LYMPH % Normal [facility] Comment on above: Performed By: #### L ACT #### [facility] [address] [place] [address] Dr. Kerrie Stark BAND # 0.0 103/ul Normal 0.0-0.3 [facility] Comment on above: Performed By: #### L ACT #### [facility] [address] [address] [address] Kerrie Stark BAND % 0 % Normal 0-5 [facility] Comment on above: Performed By: #### L ACT #### [facility] [address] [place] [address] Dr. Kerrie Stark BASOM # 0.00 103/ul Normal 0.00-0.10 [facility] Comment on above: Performed By: #### L ACT #### [facility] [address] [place] [address] Dr. Kerrie Stark BASOM % 0.0 % Critically low 0.2-2.0 [facility] Comment on above: Performed By: #### L ACT #### [facility] [facility] [address] [place] [address] Dr. Kerrie Stark BLAST # Normal [facility] Comment on above: Performed By: #### L ACT #### [facility] [address] [place] [address] Dr. Kerrie Stark BLAST % Normal [facility] Comment on above: Performed By: #### L ACT #### [facility] [address] [place] [address] Dr. Kerrie Stark CORRECTED WBC Normal 4.0-11.0 [facility] Comment on above: Performed By: #### L ACT #### [facility] [address] [place] [address] Dr. Kerrie Stark EOS # 0.00 103/ul Normal 0.00-0.70 [facility] Comment on above: Performed By: #### L ACT #### [facility] [address] [place] [address] Dr. Kerrie Stark EOS% 0.0 % Critically low 0.9-7.0 [facility] Comment on above: Performed By: #### L ACT #### [facility] [address] [place] [address] Dr. Kerrie Stark HCT 36.7 % Critically low 42.0-54.0 [facility] Comment on above: Performed By: #### L ACT #### [facility] [address] [address] [address] Kerrie Stark HGB 12.5 g/dl Critically low 14.0-18.0 [facility] Comment on above: Performed By: #### L ACT #### [facility] [address] [address] [address] Kerrie Stark LYMPHM # 0.22 103/ul Critically low 1.20-3.80 [facility] Comment on above: Performed By: #### L ACT #### [facility] [address] [place] [address] Dr. Kerrie Stark LYMPHM% 2.0 % Critically low 20.5-60.0 [facility] Comment on above: Performed By: #### L ACT #### [facility] [address] [place] [address] Dr. Kerrie Stark MCH 32.6 pg Normal 25.9-34.0 [facility] Comment on above: Performed By: #### L ACT #### [facility] [address] [place] [address] Dr. Kerrie Stark MCHC 34.1 g/dl Normal 29.9-35.2 [facility] Comment on above: Performed By: #### L ACT #### [facility] [address] [place] [address] Dr. Kerrie Stark MCV 95.8 fL Critically high 80.0-94.0 [facility] Comment on above: Performed By: #### L ACT #### [facility] [address] [place] [address] Dr. Kerrie Stark METAMYELOCYTE # Normal [facility] Comment on above: Performed By: #### L ACT #### [facility] [address] [place] [address] Dr. Kerrie Stark METAMYELOCYTE % Normal [facility] Comment on above: Performed By: #### L ACT #### [facility] [address] [place] [address] Dr. Kerrie Stark MONOM# 0.34 103/ul Normal 0.30-0.80 [facility] Comment on above: Performed By: #### L ACT #### [facility] [address] [address] [address] Kerrie Stark MONOM% 3.0 % Normal 1.7-12.0 [facility] Comment on above: Performed By: #### L ACT #### [facility] [address] [address] [address] Kerrie Stark MPV 10.9 fL Normal 9.5-13.5 [facility] Comment on above: Performed By: #### L ACT #### [facility] [address] [address] [address] Kerrie Stark MYELOCYTE # 0.1 103/ul Normal [facility] Comment on above: Performed By: #### L ACT #### [facility] [address] [place] [address] Dr. Kerrie Stark MYELOCYTE % 1 % Normal [facility] Comment on above: Performed By: #### L ACT #### [facility] [address] [place] [address] Dr. Kerrie Stark NRBC Normal [facility] Comment on above: Performed By: #### L ACT #### [facility] [address] [place] [address] Dr. Kerrie Stark PLT 140 103/ul Critically low 150-450 [facility] Comment on above: Performed By: #### L ACT #### [facility] [address] [place] [address] Dr. Kerrie Stark RBC 3.83 106/ul Critically low 4.70-6.10 [facility] Comment on above: Performed By: #### L ACT #### [facility] [address] [address] [address] Kerrie Stark RDW 12.9 % Normal 11.0-15.0 [facility] Comment on above: Performed By: #### L ACT #### [facility] [address] [place] [address] Dr. Kerrie Stark SEG # 10.53 103/ul Critically high 1.40-6.50 [facility] Comment on above: Performed By: #### L ACT #### [facility] [address] [address] [address] Kerrie Stark SEG % 94.0 % Critically high 43.0-75.0 [facility] Comment on above: Performed By: #### L ACT #### [facility] [address] [place], [place] [address] Dr. Kerrie Stark WBC 11.2 103/ul Critically high 4.0-11.0 [facility] Comment on above: Performed By: #### L ACT #### [facility] [address] [address] [address] Kerrie Stark Covid-19 PCR ([facility]on 03-22 SARS-CoV-2 (COVID-19) RNA QUE+probe Ql (Unsp spec) Detected Abnormal NOT DETECTED [facility] Comment on above: Result Comment: This test is not yet approved or cleared by the [place] FDA. When there are no FDA-approved or cleared tests available, and other criteria are met, FDA can make tests available under an emergency access mechanism called an Emergency Use Authorization (EUA). The EUA for this test is supported by the [employer] of [employer] and Human Service's declaration that [...] used). Performed By: #### L ACT #### [facility] [address] [place] [address] Dr. Kerrie Stark LACTATE/LACTIC ACIDon 2022 Lactate [Moles/Vol] 1.3 mmol/L Normal 0.4-1.9 [facility] Comment on above: Performed By: #### L ACT #### [facility] [address] [place], [place] [id number] Dr. Kerrie Stark POINT OF CARE GLUCOSEon 03-22 Glucose [Mass/Vol] 344 mg/dL Critically high 74-106 [facility] Comment on above: Performed By: #### L ACT #### [facility] [address] [place] [address] Dr. Kerrie Stark Glucose [Mass/Vol] 242 mg/dL Critically high 74-106 T [facility] Comment on above: Performed By: #### P OCGLUC #### [facility] [address] [place] [address] Dr. Kerrie Stark PROCALCITONINon 04-08-2022 Procalcitonin 0.06 ng/mL Normal 0.00-0.08 [facility] Comment on above: Result Comment: . [...] obtained. Performed By: #### D DIM #### [facility] [address] [place] [address] Dr. Kerrie Stark PROF 14(COMP METB)on 023 Albumin [Mass/Vol] 2.0 g/dL Critically low 3.4-5.0 Th [facility] Comment on above: Performed By: #### P OCGLUC #### [facility] [address] [place] [address] Dr. Kerrie Stark Albumin/Globulin [Mass ratio] 0.5 {ratio} Normal [facility] Comment on above: Performed By: #### P OCGLUC #### [facility] [address] [place] [address] Dr. Kerrie Stark ALP [Catalytic activity/Vol] 61 U/L Normal 46-116 [facility] Comment on above: Performed By: #### P OCGLUC #### [facility] [address] [address] [address] Kerrie Stark ALT [Catalytic activity/Vol] 33 U/L Normal 16-63 [facility] Comment on above: Performed By: #### P OCGLUC #### [facility] [address] [address] [address] Kerrie Stark Anion gap [Moles/Vol] 13.2 mmol/L Normal [facility] Comment on above: Performed By: #### P OCGLUC #### [facility] [address] [address] [address] Kerrie Stark AST [Catalytic activity/Vol] 27 U/L Normal 15-37 [facility] Comment on above: Performed By: #### P OCGLUC #### [facility] [address] [address] [address] Kerrie Stark Bilirubin [Mass/Vol] 0.3 mg/dL Normal 0.2-1.0 [facility] Comment on above: Performed By: #### P OCGLUC #### [facility] [address] [place] [address] Dr. Kerrie Stark Calcium [Mass/Vol] 8.7 mg/dL Normal 8.5-10.1 [facility] Comment on above: Performed By: #### P OCGLUC #### [facility] [address] [address] [address] Kerrie Stark Chloride [Moles/Vol] 102 mmol/L Normal 98-107 [facility] Comment on above: Performed By: #### P OCGLUC #### [facility] [address] [address] [address] Kerrie Stark CO2 [Moles/Vol] 22.0 mmol/L Normal 21.0-32.0 [facility] Comment on above: Performed By: #### P OCGLUC #### [facility] [address] [address] [address] Kerrie Stark Creatinine [Mass/Vol] 0.88 mg/dL Normal 0.70-1.30 [facility] Comment on above: Performed By: #### P OCGLUC #### [facility] [address] [address] [address] Kerrie Stark EGFR-AF [place] >60 Normal >=60 [facility] Comment on above: Performed By: #### P OCGLUC #### [facility] [address] [address] [address] Kerrie Stark EGFR-NON AF [place] >60 Normal >=60 [facility] Comment on above: Performed By: #### P OCGLUC #### [facility] [address] [address] [address] Kerrie Stark Globulin (S) [Mass/Vol] 3.7 g/dL Normal [facility] Comment on above: Performed By: #### P OCGLUC #### [facility] [address] [address] [address] Kerrie Stark Glucose [Mass/Vol] 266 mg/dL Critically high 74-106 T [facility] Comment on above: Performed By: #### P OCGLUC #### [facility] [address] [address] [address] Kerrie Stark Potassium [Moles/Vol] 4.2 mmol/L Normal 3.5-5.1 [facility] Comment on above: Performed By: #### P OCGLUC #### [facility] [address] [address] [address] Kerrie Stark Protein [Mass/Vol] 5.7 g/dL Critically low 6.4-8.2 [facility] Comment on above: Performed By: #### P OCGLUC #### [facility] [address] [address] [address] Kerrie Stark Sodium [Moles/Vol] 133 mmol/L Critically low 136-145 Th [facility] Comment on above: Performed By: #### P OCGLUC #### [facility] [address] [address] [address] Kerrie Stark Urea nitrogen [Mass/Vol] 21.0 mg/dL Critically high 7.0-18.0 [facility] Comment on above: Performed By: #### P OCGLUC #### [facility] [address] [address] [address] Kerrie Stark Urea nitrogen/Creatinine [Mass ratio] 23.9 mg/mg Normal [facility] Comment on above: Performed By: #### P OCGLUC #### [facility] [address] [place] [address] Dr. Kerrie Stark CBC W MANUAL DIFFon 04-07-19 23 ATYPICAL LYMPH # 0.14 103/ul Normal [facility] Comment on above: Performed By: #### L ACT #### [facility] [address] [place] [address] Dr. Kerrie Stark ATYPICAL LYMPH % 1 % Normal [facility] Comment on above: Performed By: #### L ACT #### [facility] [address] [place] [address] Dr. Kerrie Stark BAND # 0.0 103/ul Normal 0.0-0.3 [facility] Comment on above: Performed By: #### L ACT #### [facility] [address] [place] [address] Dr. Kerrie Stark BAND % 0 % Normal 0-5 [facility] Comment on above: Performed By: #### L ACT #### [facility] [address] [place] [address] Dr. Kerrie Stark BASOM # 0.00 103/ul Normal 0.00-0.10 [facility] Comment on above: Performed By: #### L ACT #### [facility] [address] [place] [address] Dr. Kerrie Stark BASOM % 0.0 % Critically low 0.2-2.0 [facility] Comment on above: Performed By: #### L ACT #### [facility] [address] [place] [address] Dr. Kerrie Stark BLAST # Normal [facility] Comment on above: Performed By: #### L ACT #### [facility] [address] [place] [address] Dr. Kerrie Stark BLAST % Normal [facility] Comment on above: Performed By: #### L ACT #### [facility] [address] [address] [address] Kerrie Stark CORRECTED WBC Normal 4.0-11.0 [facility] Comment on above: Performed By: #### L ACT #### [facility] [address] [address] [address] Kerrie Stark EOS # 0.00 103/ul Normal 0.00-0.70 [facility] Comment on above: Performed By: #### L ACT #### [facility] [address] [address] [address] Kerrie Stark EOS% 0.0 % Critically low 0.9-7.0 [facility] Comment on above: Performed By: #### L ACT #### [facility] [address] [place] [address] Dr. Kerrie Stark HCT 35.9 % Critically low 42.0-54.0 [facility] Comment on above: Performed By: #### L ACT #### [facility] [address] [place] [address] Dr. Kerrie Stark HGB 12.0 g/dl Critically low 14.0-18.0 [facility] Comment on above: Performed By: #### L ACT #### [facility] [address] [place] [address] Dr. Kerrie Stark LYMPHM # 0.28 103/ul Critically low 1.20-3.80 [facility] Comment on above: Performed By: #### L ACT #### [facility] [address] [place] [address] Dr. Kerrie Stark LYMPHM% 2.0 % Critically low 20.5-60.0 [facility] Comment on above: Performed By: #### L ACT #### [facility] [address] [place] [address] Dr. Kerrie Stark MCH 32.6 pg Normal 25.9-34.0 [facility] Comment on above: Performed By: #### L ACT #### [facility] [address] [place] [address] Dr. Kerrie Stark MCHC 33.4 g/dl Normal 29.9-35.2 [facility] Comment on above: Performed By: #### L ACT #### [facility] [address] [place] [address] Dr. Kerrie Stark MCV 97.6 fL Critically high 80.0-94.0 [facility] Comment on above: Performed By: #### L ACT #### [facility] [address] [place] [address] Dr. Kerrie Stark METAMYELOCYTE # Normal [facility] Comment on above: Performed By: #### L ACT #### [facility] [address] [place] [address] Dr. Kerrie Stark METAMYELOCYTE % Normal [facility] Comment on above: Performed By: #### L ACT #### [facility] [address] [place] [address] Dr. Kerrie Stark MONOM# 0.00 103/ul Critically low 0.30-0.80 [facility] Comment on above: Performed By: #### L ACT #### [facility] [address] [place] [address] Dr. Kerrie Stark MONOM% 0.0 % Critically low 1.7-12.0 [facility] Comment on above: Performed By: #### L ACT #### [facility] [address] [place] [address] Dr. Kerrie Stark MPV 10.6 fL Normal 9.5-13.5 [facility] Comment on above: Performed By: #### L ACT #### [facility] [address] [place] [address] Dr. Kerrie Stark MYELOCYTE # Normal [facility] Comment on above: Performed By: #### L ACT #### [facility] [address] [place] [address] Dr. Kerrie Stark MYELOCYTE % Normal [facility] Comment on above: Performed By: #### L ACT #### [facility] [address] [place] [address] Dr. Kerrie Stark NRBC Normal [facility] Comment on above: Performed By: #### L ACT #### [facility] [address] [address] [address] Kerrie Stark PLT 125 103/ul Critically low 150-450 [facility] Comment on above: Performed By: #### L ACT #### [facility] [address] [id number] [address] Kerrie Stark RBC 3.68 106/ul Critically low 4.70-6.10 [facility] Comment on above: Performed By: #### L ACT #### [facility] [address] [address] [address] Kerrie Stark RDW 13.2 % Normal 11.0-15.0 [facility] Comment on above: Performed By: #### L ACT #### [facility] [address] [place] [address] Dr. Kerrie Stark SEG # 13.77 103/ul Critically high 1.40-6.50 [facility] Comment on above: Performed By: #### L ACT #### [facility] [address] [place] [address] Dr. Kerrie Stark SEG % 97.0 % Critically high 43.0-75.0 [facility] Comment on above: Performed By: #### L ACT #### [facility] [address] [place] [address] Dr. Kerrie Stark TOXIC GRANULATION 2+ Normal [facility] Comment on above: Performed By: #### L ACT #### [facility] [address] [id number] [address] Kerrie Stark WBC 14.2 103/ul Critically high 4.0-11.0 [facility] Comment on above: Performed By: #### L ACT #### [facility] [address] [place] [address] Dr. Kerrie Stark Covid-19 PCR (CVDTB)on 03-22 SARS-CoV-2 (COVID-19) RNA QUE+probe Ql (Unsp spec) Detected Abnormal NOT DETECTED [facility] Comment on above: Result Comment: This test is not yet approved or cleared by the [place] FDA. When there are no FDA-approved or cleared tests available, and other criteria are met, FDA can make tests available under an emergency access mechanism called an Emergency Use Authorization (EUA). The EUA for this test is supported by the [employer] Health and Human Service's declaration that [...] used). Performed By: #### L ACT #### [facility] [address] [place] [address] Dr. Kerrie Stark LACTATE/LACTIC ACIDon 2022 Lactate [Moles/Vol] 1.1 mmol/L Normal 0.4-1.9 [facility] Comment on above: Performed By: #### P OCGLUC #### [facility] [address] [place] [address] Dr. Kerrie Stark POINT OF CARE GLUCOSEon 03-22 Glucose [Mass/Vol] 316 mg/dL Critically high 74-106 [facility] Comment on above: Performed By: #### P OCGLUC #### [facility] [address] [place] [address] Dr. Kerrie Stark Glucose [Mass/Vol] 182 mg/dL Critically high 74-106 [facility] Comment on above: Performed By: #### P OCGLUC #### [facility] [address] [place] [address] Dr. Kerrie Stark Glucose [Mass/Vol] 318 mg/dL Critically high 74-106 [facility] Comment on above: Performed By: #### P OCGLUC #### [facility] [address] [place] [address] Dr. Kerrie Stark PROF 14(COMP METB)on 023 Albumin [Mass/Vol] 1.9 g/dL Critically low 3.4-5.0 [facility] Comment on above: Performed By: #### P OCGLUC #### [facility] [address] [address] [address] Kerrie Stark Albumin/Globulin [Mass ratio] 0.5 {ratio} Normal [facility] Comment on above: Performed By: #### P OCGLUC #### [facility] [address] [place] [address] Dr. Kerrie Stark ALP [Catalytic activity/Vol] 50 U/L Normal 46-116 [facility] Comment on above: Performed By: #### P OCGLUC #### [facility] [address] [address] [address] Kerrie Stark ALT [Catalytic activity/Vol] 24 U/L Normal 16-63 [facility] Comment on above: Performed By: #### P OCGLUC #### [facility] [address] [place] [address] Dr. Kerrie Stark Anion gap [Moles/Vol] 12.9 mmol/L Normal [facility] Comment on above: Performed By: #### P OCGLUC #### [facility] [address] [place] [address] Dr. Kerrie Stark AST [Catalytic activity/Vol] 19 U/L Normal 15-37 [facility] Comment on above: Performed By: #### P OCGLUC #### [facility] [address] [place] [address] Dr. Kerrie Stark Bilirubin [Mass/Vol] 0.3 mg/dL Normal 0.2-1.0 [facility] Comment on above: Performed By: #### P OCGLUC #### [facility] [address] [place] [address] Dr. Kerrie Stark Calcium [Mass/Vol] 8.5 mg/dL Normal 8.5-10.1 [facility] Comment on above: Performed By: #### P OCGLUC #### [facility] [address] [place] [address] Dr. Kerrie Stark Chloride [Moles/Vol] 103 mmol/L Normal 98-107 [facility] Comment on above: Performed By: #### P OCGLUC #### [facility] [address] [place] [address] Dr. Kerrie Stark CO2 [Moles/Vol] 22.2 mmol/L Normal 21.0-32.0 [facility] Comment on above: Performed By: #### P OCGLUC #### [facility] [address] [address] [address] Kerrie Stark Creatinine [Mass/Vol] 1.17 mg/dL Normal 0.70-1.30 [facility] Comment on above: Performed By: #### P OCGLUC #### [facility] [address] [address] [address] Kerrie Stark EGFR-AF COSTA RICAN >60 Normal >=60 [facility] Comment on above: Performed By: #### P OCGLUC #### [facility] [address] [address] [address] eKrrie Stark EGFR-NON AF COSTA RICAN 60 mL/min/1.73m2 Normal >=60 [facility] Comment on above: Performed By: #### P OCGLUC #### [facility] [address] [address] [address] Kerrie Stark Globulin (S) [Mass/Vol] 3.8 g/dL Normal [facility] Comment on above: Performed By: #### P OCGLUC #### [facility] [address] [place] [address] Dr. Kerrie Stark Glucose [Mass/Vol] 283 mg/dL Critically high 74-106 T [facility] Comment on above: Performed By: #### P OCGLUC #### [facility] [address] [address] [address] Kerrie Stark Potassium [Moles/Vol] 4.1 mmol/L Normal 3.5-5.1 [facility] Comment on above: Performed By: #### P OCGLUC #### [facility] [address] [address] [address] Kerrie Stark Protein [Mass/Vol] 5.7 g/dL Critically low 6.4-8.2 Th [facility] Comment on above: Performed By: #### P OCGLUC #### [facility] [address] [address] [address] Kerrie Stark Sodium [Moles/Vol] 134 mmol/L Critically low 136-145 Th e [facility] Comment on above: Performed By: #### P OCGLUC #### [facility] [address] [place] [address] Dr. Kerrie Stark Urea nitrogen [Mass/Vol] 23.0 mg/dL Critically high 7.0-18.0 [facility] Comment on above: Performed By: #### P OCGLUC #### [facility] [address] [place] [address] Dr. Kerrie Stark Urea nitrogen/Creatinine [Mass ratio] 19.7 mg/mg Normal [facility] Comment on above: Performed By: #### P OCGLUC #### [facility] [address] [place] [address] Dr. Kerrie Stark CULTURE SPUTUMon 04-06-2022 CULTURE SPUTUM Isolate 1 Grace albicans Light growth of Normal [facility] Comment on above: Performed By: #### S PUTCX #### [facility] [address] [place] [address] Dr. Kerrie Stark CULTURE URINEon 04-06-2022 CULTURE URINE Culture Observations: NO GROWTH. Normal [facility] Comment on above: Performed By: #### U RCX #### [facility] [address] [place] [address] Dr. Kerrie Stark ER URINE PROFILEon 3 Bilirubin Ql (U) Negative Normal NEGATIVE [facility] Comment on above: Performed By: #### P OCGLUC #### [facility] [address] [place] [address] Dr. Kerrie Stark Clarity (U) CLEAR Normal CLEAR [facility] Comment on above: Performed By: #### P OCGLUC #### [facility] [address] [place] [address] Dr. Kerrie Stark Color (U) YELLOW Normal YELLOW [facility] Comment on above: Performed By: #### P OCGLUC #### [facility] [address] [place] [address] Dr. Kerrie Stark ERUAHD A micrscopic examination will be performed if indicated. Normal [facility] Comment on above: Performed By: #### P OCGLUC #### [facility] [address] [address] [address] Kerrie Stark Glucose Ql (U) Negative Normal NEGATIVE [facility] Comment on above: Performed By: #### P OCGLUC #### [facility] [address] [address] [address] Kerrie Stark Hemoglobin Ql (U) Negative Normal NEGATIVE [facility] Comment on above: Performed By: #### P OCGLUC #### [facility] [address] [address] [address] Kerrie Stark Ketones Ql (U) Negative Normal NEGATIVE [facility] Comment on above: Performed By: #### P OCGLUC #### [facility] [address] [address] [address] Kerrie Stark LEUKOCYTES Negative Normal NEGATIVE [facility] Comment on above: Performed By: #### P OCGLUC #### [facility] [address] [address] [address] Kerrie Stark Nitrite Ql (U) Negative Normal NEGATIVE [facility] Comment on above: Performed By: #### P OCGLUC #### [facility] [address] [address] [address] Kerrie Stark pH (U) 6.0 [pH] Normal 5-9 [facility] Comment on above: Performed By: #### P OCGLUC #### [facility] [address] [address] [address] Kerrie Stark Protein (U) [Mass/Vol] 30 mg/dL Abnormal NEGAT LITTLE/ TRACE The [facility] Comment on above: Performed By: #### P OCGLUC #### [facility] [address] [address] [address] Kerrie Stark SPEC GRAVITY 1.015 Normal 1.005-<=1.025 [facility] Comment on above: Performed By: #### P OCGLUC #### [facility] [address] [address] [address] Kerrie Stark UR MICRO IND INDICATED Normal [facility] Comment on above: Performed By: #### P OCGLUC #### [facility] [address] [address] [address] Kerrie Stark Urobilinogen Qn (U) 0.2 {Ricky'U}/dL Normal 0.2 - 1. 0 [facility] Comment on above: Performed By: #### P OCGLUC #### [facility] [address] [address] [address] Kerrie Stark POINT OF CARE GLUCOSEon 03-22 Glucose [Mass/Vol] 301 mg/dL Critically high [address] [place] [address] Comment on above: Performed By: #### P OCGLUC #### [facility] [address] [address] [address] Kerrie Stark Glucose [Mass/Vol] 272 mg/dL Critically high [address] [place] [address] Comment on above: Performed By: #### P OCGLUC #### [facility] [address] [address] [address] Kerrie Stark Glucose [Mass/Vol] 191 mg/dL Critically high [address] [place] [address] Comment on above: Performed By: #### P OCGLUC #### [facility] [address] [address] [address] Kerrie Stark Glucose [Mass/Vol] 164 mg/dL Critically high [address] [place] [address] Comment on above: Performed By: #### C BC #### [facility] [address] [address] [address] Kerrie Stark Glucose [Mass/Vol] 128 mg/dL Critically high [address] [place] [address] Comment on above: Performed By: #### P OCGLUC #### [facility] [address] [address] [address] Kerrie Stark URINE MICROSCOPIC ONLYon BACTERIA SMALL Abnormal NONE SEEN The [facility] Comment on above: Performed By: #### P OCGLUC #### [facility] [address] [address] [address] Kerrie Stark Bacteria identified Cx Nom (U) INDICATED Normal The [facility] Comment on above: Performed By: #### P OCGLUC #### [facility] [address] [place] [address] Dr. Kerrie Stark CAST SEEN Abnormal NONE SEEN [facility] Comment on above: Performed By: #### P OCGLUC #### [facility] [address] [place] [address] Dr. Kerrie Stark Crystals LM Nom (Urine sed) NONE SEEN Normal NONE SEEN The [facility] Comment on above: Performed By: #### P OCGLUC #### [facility] [address] [place] [address] Dr. Kerrie Stark Epithelial cells LM Ql (Urine sed) RARE Normal NONE SEEN /RARE The [facility] Comment on above: Performed By: #### P OCGLUC #### [facility] [address] [place] [address] Dr. Kerrie Stark HYALINE CAST RARE Normal The [facility] Comment on above: Performed By: #### P OCGLUC #### [facility] [address] [place] [address] Dr. Kerrie Stark MUCOUS TRACE Abnormal NONE SEEN The [facility] Comment on above: Performed By: #### P OCGLUC #### [facility] [address] [place] [address] Dr. Kerrie Stark RBC 0-2 Normal 0-2 The [facility] Comment on above: Performed By: #### P OCGLUC #### [facility] [address] [place] [address] Dr. Kerrie Stark WBC 0-2 Abnormal NONE SEEN The [facility] Comment on above: Performed By: #### P OCGLUC #### [facility] [address] [place] [address] Dr. Kerrie Stark BNPon 04-05-2022 Natriuretic peptide B (Bld) [Mass/Vol] 394.0 pg/mL Normal <=1,800.0 The [facility] Comment on above: Performed By: #### C BC #### [facility] [address] [place] [address] Dr. Kerrie Stark CBC W MANUAL DIFFon 04-05-19 23 ATYPICAL LYMPH # Normal [facility] Comment on above: Performed By: #### P OCGLUC #### [facility] [address] [place] [address] Dr. Kerrie Stark ATYPICAL LYMPH % Normal [facility] Comment on above: Performed By: #### P OCGLUC #### [facility] [address] [address] [address] Kerrie Stark BAND # Normal 0.0-0.3 [facility] Comment on above: Performed By: #### P OCGLUC #### [facility] [address] [place] [address] Dr. Kerrie Stark BAND % Normal 0-5 [facility] Comment on above: Performed By: #### P OCGLUC #### [facility] [address] [place] [address] Dr. Kerrie Stark BASOM # 0.00 103/ul Normal 0.00-0.10 [facility] Comment on above: Performed By: #### P OCGLUC #### [facility] [address] [place] [address] Dr. Kerrie Stark BASOM % 0.0 % Critically low 0.2-2.0 [facility] Comment on above: Performed By: #### P OCGLUC #### [facility] [address] [place] [address] Dr. Kerrie Stark BLAST # Normal [facility] Comment on above: Performed By: #### P OCGLUC #### [facility] [address] [place] [address] Dr. Kerrie Stark BLAST % Normal [facility] Comment on above: Performed By: #### P OCGLUC #### [facility] [address] [place] [address] Dr. Kerrie Stark CORRECTED WBC Normal 4.0-11.0 [facility] Comment on above: Performed By: #### P OCGLUC #### [facility] [address] [place] [address] Dr. Kerrie Stark EOS # 0.00 103/ul Normal 0.00-0.70 [facility] Comment on above: Performed By: #### P OCGLUC #### [facility] [address] [place] [address] Dr. Kerrie Stark EOS% 0.0 % Critically low 0.9-7.0 [facility] Comment on above: Performed By: #### P OCGLUC #### [facility] [address] [place] [address] Dr. Kerrie Stark HCT 43.5 % Normal 42.0-54.0 [facility] Comment on above: Performed By: #### P OCGLUC #### [facility] [address] [address] [address] Kerrie Stark HGB 14.7 g/dl Normal 14.0-18.0 [facility] Comment on above: Performed By: #### P OCGLUC #### [facility] [address] [place] [address] Dr. Kerrie Stark LYMPHM # 0.78 103/ul Critically low 1.20-3.80 [facility] Comment on above: Performed By: #### P OCGLUC #### [facility] [address] [place] [address] Dr. Kerrie Stark LYMPHM% 4.0 % Critically low 20.5-60.0 [facility] Comment on above: Performed By: #### P OCGLUC #### [facility] [address] [place] [address] Dr. Kerrie Stark MCH 32.5 pg Normal 25.9-34.0 [facility] Comment on above: Performed By: #### P OCGLUC #### [facility] [address] [address] [address] Kerrie Stark MCHC 33.8 g/dl Normal 29.9-35.2 [facility] Comment on above: Performed By: #### P OCGLUC #### [facility] [address] [address] [address] Kerrie Stark MCV 96.2 fL Critically high 80.0-94.0 [facility] Comment on above: Performed By: #### P OCGLUC #### [facility] [address] [place] [address] Dr. Kerrie Stark METAMYELOCYTE # Normal [facility] Comment on above: Performed By: #### P OCGLUC #### [facility] [address] [address] [address] Kerrie Stark METAMYELOCYTE % Normal [facility] Comment on above: Performed By: #### P OCGLUC #### [facility] [address] [place] [address] Dr. Kerrie Stark MONOM# 0.58 103/ul Normal 0.30-0.80 [facility] Comment on above: Performed By: #### P OCGLUC #### [facility] [address] [place] [address] Dr. Kerrie Stark MONOM% 3.0 % Normal 1.7-12.0 [facility] Comment on above: Performed By: #### P OCGLUC #### [facility] [address] [place] [address] Dr. Kerrie Stark MPV 10.1 fL Normal 9.5-13.5 [facility] Comment on above: Performed By: #### P OCGLUC #### [facility] [address] [place] [address] Dr. Kerrie Stark MYELOCYTE # Normal [facility] Comment on above: Performed By: #### P OCGLUC #### [facility] [address] [place] [address] Dr. Kerrie Stark MYELOCYTE % Normal [facility] Comment on above: Performed By: #### P OCGLUC #### [facility] [address] [place] [address] Dr. Kerrie Stark NRBC Normal [facility] Comment on above: Performed By: #### P OCGLUC #### [facility] [address] [place] [address] Dr. Kerrie Stark PLT 181 103/ul Normal 150-450 [facility] Comment on above: Performed By: #### P OCGLUC #### [facility] [address] [place] [address] Dr. Kerrie Stark RBC 4.52 106/ul Critically low 4.70-6.10 [facility] Comment on above: Performed By: #### P OCGLUC #### [facility] [address] [address] [address] Kerrie Satrk RDW 12.9 % Normal 11.0-15.0 [facility] Comment on above: Performed By: #### P OCGLUC #### [facility] [address] [address] [address] Kerrie Stark SEG # 18.14 103/ul Critically high 1.40-6.50 [facility] Comment on above: Performed By: #### P OCGLUC #### [facility] [address] [address] [address] Kerrie Stark SEG % 93.0 % Critically high 43.0-75.0 [facility] Comment on above: Performed By: #### P OCGLUC #### [facility] [address] [address] [address] Kerrie Stark WBC 19.5 103/ul Critically high 4.0-11.0 [facility] Comment on above: Performed By: #### P OCGLUC #### [facility] [address] [address] [address] Kerrie Stark CTA CHEST WO W [...] BING ADAMS Date: 2022-04-05 20:31 Normal [facility] CULTURE BLOODon 04-05-2022 Microscopic examination of blood, culture Culture Observations: NO GROWTH AT 5 DAYS. Normal [facility] Comment on above: Performed By: #### C BC #### [facility] [address] [place] [address] Dr. Kerrie Stark Microscopic examination of blood, culture Culture Observations: NO GROWTH AT 5 DAYS. Normal [facility] Comment on above: Performed By: #### B [id number] #### [facility] [address] [place] [address] Dr. Kerrie Stark LACTATE/LACTIC ACIDon 2022 Lactate [Moles/Vol] 2.7 mmol/L Critically high 0.4-1.9 [facility] Comment on above: Performed By: #### P OCGLUC #### [facility] [address] [place] [address] Dr. Kerrie Stark Lactate [Moles/Vol] 3.2 mmol/L Critically high 0.4-1.9 [facility] Comment on above: Performed By: #### D DIM #### [facility] [address] [place] [address] Dr. Kerrie Stark PH VENOUS BLOODon 04-05-2022 PCO2 VENOUS 42.3 mmHg Normal 40.0-52.0 [facility] Comment on above: Performed By: #### P OCGLUC #### [facility] [address] [place] [address] Dr. Kerrie Stark pH VENOUS 7.400 Normal 7.330-7.430 [facility] Comment on above: Performed By: #### P OCGLUC #### [facility] [address] [place] [address] Dr. Kerrie Stark PROF 14(COMP METB)on 023 Albumin [Mass/Vol] 3.0 g/dL Critically low 3.4-5.0 [facility] Comment on above: Performed By: #### C BC #### [facility] [address] [place] [address] Dr. Kerrie Stark Albumin/Globulin [Mass ratio] 0.7 {ratio} Normal [facility] Comment on above: Performed By: #### C BC #### [facility] [address] [place] [address] Dr. Kerrie Stark ALP [Catalytic activity/Vol] 68 U/L Normal 46-116 [facility] Comment on above: Performed By: #### C BC #### [facility] [address] [place] [address] Dr. Kerrie Stark ALT [Catalytic activity/Vol] 29 U/L Normal 16-63 [facility] Comment on above: Performed By: #### C BC #### [facility] [address] [place] [address] Dr. Kerrie Stark Anion gap [Moles/Vol] 12.3 mmol/L Normal [facility] Comment on above: Performed By: #### C BC #### [facility] [address] [place] [address] Dr. Kerrie Stark AST [Catalytic activity/Vol] 19 U/L Normal 15-37 [facility] Comment on above: Performed By: #### C BC #### [facility] [address] [place] [address] Dr. Kerrie Stark Bilirubin [Mass/Vol] 0.7 mg/dL Normal 0.2-1.0 [facility] Comment on above: Performed By: #### C BC #### [facility] [address] [place] [address] Dr. Kerrie Stark Calcium [Mass/Vol] 10.0 mg/dL Normal 8.5-10.1 [facility] Comment on above: Performed By: #### C BC #### [facility] [address] [place] [address] Dr. Kerrie Stark Chloride [Moles/Vol] 96 mmol/L Critically low 98-107 [facility] Comment on above: Performed By: #### C BC #### [facility] [address] [place] [address] Dr. Kerrie Stark CO2 [Moles/Vol] 27.7 mmol/L Normal 21.0-32.0 [facility] Comment on above: Performed By: #### C BC #### [facility] [address] [place] [address] Dr. Kerrie Stark Creatinine [Mass/Vol] 1.18 mg/dL Normal 0.70-1.30 [facility] Comment on above: Performed By: #### C BC #### [facility] [address] [place] [address] Dr. Kerrie Stark EGFR-AF COSTA RICAN >60 Normal >=60 [facility] Comment on above: Performed By: #### C BC #### [facility] [address] [place] [address] Dr. Kerrie Stark EGFR-NON AF COSTA RICAN 59 mL/min/1.73m2 Critically low >=60 [facility] Comment on above: Performed By: #### C BC #### [facility] [address] [place] [address] Dr. Kerrie Stark Globulin (S) [Mass/Vol] 4.5 g/dL Normal [facility] Comment on above: Performed By: #### C BC #### [facility] [address] [place] [address] Dr. Kerrie Stark Glucose [Mass/Vol] 189 mg/dL Critically high 74-106 [facility] Comment on above: Performed By: #### C BC #### [facility] [address] [place] [address] Dr. Kerrie Stark Potassium [Moles/Vol] 4.0 mmol/L Normal 3.5-5.1 [facility] Comment on above: Performed By: #### C BC #### [facility] [address] [place] [address] Dr. Kerrie Stark Protein [Mass/Vol] 7.5 g/dL Normal 6.4-8.2 [facility] Comment on above: Performed By: #### C BC #### [facility] [address] [address] [address] Kerrie Stark Sodium [Moles/Vol] 132 mmol/L Critically low 136-145 Th [facility] Comment on above: Performed By: #### C BC #### [facility] [address] [place] [address] Dr. Kerrie Stark Urea nitrogen [Mass/Vol] 34.0 mg/dL Critically high 7.0-18.0 [facility] Comment on above: Performed By: #### C BC #### [facility] [address] [place] [address] Dr. Kerrie Stark Urea nitrogen/Creatinine [Mass ratio] 28.8 mg/mg Normal [facility] Comment on above: Performed By: #### C BC #### [facility] [address] [place] [address] Dr. Kerrie Stark PROTIMEon 04-05-2022 INR Coag (PPP) [Relative time] 1.00 {INR} Normal [facility] Comment on above: Performed By: #### P OCGLUC #### [facility] [address] [place] [address] Dr. Kerrie Stark INR GUIDELINES SEE BELOW Normal [facility] Comment on above: Result Comment: TOBY RED INR: 2.0 - 3.0 CONDITIONS NOT LISTED BELOW 2.5 - 3.5 FOR PROSTHETIC HEART VALVE REPLACEMENT 2.5 - 3.5 RECURRENT THROMBOSIS Performed By: #### P OCGLUC #### [facility] [address] [place] [address] Dr. Kerrie Stark PT Coag (PPP) [Time] 10.6 s Normal 9.0-11.6 [facility] Comment on above: Performed By: #### P OCGLUC #### [facility] [address] [place] [address] Dr. Kerrie Stark PTTon 04-05-2022 aPTT Coag (Bld) [Time] 28.5 s Normal 22.3-36.2 Th e [facility] Comment on above: Performed By: #### P OCGLUC #### [facility] [address] [place] [address] Dr. Kerrie Stark RESPIRATORY PANEL PLUSon Adenovirus Not detected Normal NOT DETECTED [facility] Comment on above: Performed By: #### L ACT #### [facility] [address] [place] [address] Dr. Kerrie Nayak. Parapertusis Not detected Normal NOT DETECTED [facility] Comment on above: Performed By: #### L ACT #### [facility] [address] [place] [address] Dr. Kerrie Nayak. Pertussis Not detected Normal NOT DETECTED [facility] Comment on above: Performed By: #### L ACT #### [facility] [address] [place] [address] Dr. Kerrie Stark Chlamydia Pneumoniae Not detected Normal NOT DETECTED The [facility] Comment on above: Performed By: #### L ACT #### [facility] [address] [place] [address] Dr. Kerrie Stark Coronavirus 229E Not detected Normal NOT DETECTED The [facility] Comment on above: Performed By: #### L ACT #### [facility] [address] [place] [address] Dr. Kerrie Stark Coronavirus HKU1 Not detected Normal NOT DETECTED The [facility] Comment on above: Performed By: #### L ACT #### [facility] [address] [place] [address] Dr. Kerrie Stark Coronavirus NL63 Not detected Normal NOT DETECTED The [facility] Comment on above: Performed By: #### L ACT #### [facility] [address] [place] [address] Dr. Kerrie Stark Coronavirus OC43 Not detected Normal NOT DETECTED The [facility] Comment on above: Performed By: #### L ACT #### [facility] [address] [address] [address] Kerrie Stark Influenza A H1 Not detected Normal NOT DETECTED The [facility] Comment on above: Performed By: #### L ACT #### [facility] [address] [address] [address] Kerrie Stark Influenza A H1 2009 Not detected Normal NOT DETECTED [facility] Comment on above: Performed By: #### L ACT #### [facility] [address] [address] [address] Kerrie Stark Influenza A H3 Not detected Normal NOT DETECTED The [facility] Comment on above: Performed By: #### L ACT #### [facility] [address] [address] [address] Kerrie Stark Influenza B Not detected Normal NOT DETECTED [facility] Comment on above: Performed By: #### L ACT #### [facility] [address] [address] [address] Kerrie Stark Metapneumovirus Not detected Normal NOT DETECTED [facility] Comment on above: Performed By: #### L ACT #### [facility] [address] [place] [address] Dr. Kerrie Stark Mycoplas. Pneumoniae Not detected Normal NOT DETECTED [facility] Comment on above: Performed By: #### L ACT #### [facility] [address] [address] [address] Kerrie Stark Parainfluenza 1 Not detected Normal NOT DETECTED [facility] Comment on above: Performed By: #### L ACT #### [facility] [address] [place] [address] Dr. Kerrie Stark Parainfluenza 2 Not detected Normal NOT DETECTED [facility] Comment on above: Performed By: #### L ACT #### [facility] [address] [address] [address] Kerrie Stark Parainfluenza 3 Not detected Normal NOT DETECTED [facility] Comment on above: Performed By: #### L ACT #### [facility] [address] [address] [address] Yilan Stark Parainfluenza 4 Not detected Normal NOT DETECTED [facility] Comment on above: Performed By: #### L ACT #### [facility] [address] [place] [address] Dr. Kerrie Stark Rhino/Enterovirus Not detected Normal NOT DETECTED [facility] Comment on above: Performed By: #### L ACT #### [facility] [address] [place] [address] Dr. Kerrie Stark RP2 Header 1 RESPIRATORY PANEL: VIRUSES Normal [facility] Comment on above: Performed By: #### L ACT #### [facility] [address] [place] [address] Dr. Kerrie Stark RP2 Header 2 RESPIRATORY PANEL: BACTERIA Normal [facility] Comment on above: Performed By: #### L ACT #### [facility] [address] [place] [address] Dr. Kerrie Stark RSV Not detected Normal NOT DETECTED [facility] Comment on above: Performed By: #### L ACT #### [facility] [address] [place] [address] Dr. Kerrie Stark SARS-CoV-2 (COVID-19) RNA QUE+probe Ql (Unsp spec) Detected Abnormal NOT DETECTED [facility] Comment on above: Performed By: #### L ACT #### [facility] [address] [place] [address] Dr. Kerrie Stark TROPONIN, HIGH SENSITIVITYon 04-05-2022 HSTROP 8.4 pg/mL Normal 4.0-76.1 The [facility] Comment on above: Result Comment: CUT- OFF POINTS HAVE BEEN ESTABLISHED BASED ON THE FOURTH UNIVERSAL DEFINITIONS OF MYOCARDIAL INFARCTION. THE UPPER REFERENCE LIMIT (URL) OF TROPONIN, DEFINED THE 99TH PERCENTILE OF cTnI DISTRIBUTION IN A REFERENCE POPULATION, HAS BEEN CONFIRMED THE DECISION THRESHOLD FOR IA DIAGNOSIS. Performed By: #### C BC #### [facility] [address] [place] [address] Dr. Kerrie Stark Progress Noteson 03-30-2022 Hospice Physician Authentication Interface Message Text EMERGENCY TRIAGE, TREAT AND TRANSPORT (ET3) DOCUMENTATION OF TELEHEALTH VISIT Date / Time: 03/27/2022 / 2339 Name: Chema Childs : 1940 SSN: (Not on file) EMS Agency: [facility] [x] Verbal consent obtained [] [...] ET3 Encounter Completed by: Horace Parra DO Normal [facility] CBC W MANUAL DIFFon 03-29-19 23 ATYPICAL LYMPH # Normal [facility] Comment on above: Performed By: #### L ACT #### [facility] [address] [place] [address] Dr. Kerrie Stark ATYPICAL LYMPH % Normal [facility] Comment on above: Performed By: #### L ACT #### [facility] [address] [place] [address] Dr. Kerrie Stark BAND # 0.0 103/ul Normal 0.0-0.3 The [facility] Comment on above: Performed By: #### L ACT #### [facility] [address] [place] [address] Dr. Kerrie Stark BAND % 0 % Normal 0-5 [facility] Comment on above: Performed By: #### L ACT #### [facility] [address] [place] [address] Dr. Kerrie Stark BASOM # 0.00 103/ul Normal 0.00-0.10 [facility] Comment on above: Performed By: #### L ACT #### [facility] [address] [place] [address] Dr. Kerrie Stark BASOM % 0.0 % Critically low 0.2-2.0 [facility] Comment on above: Performed By: #### L ACT #### [facility] [address] [place] [address] Dr. Kerrie Stark BLAST # Normal [facility] Comment on above: Performed By: #### L ACT #### [facility] [address] [place] [address] Dr. Kerrie Stark BLAST % Normal The [facility] Comment on above: Performed By: #### L ACT #### [facility] [address] [place] [address] Dr. Kerrie Stark CORRECTED WBC Normal 4.0-11.0 [facility] Comment on above: Performed By: #### L ACT #### [facility] [address] [place] [address] Dr. Kerrie Stark EOS # 0.00 103/ul Normal 0.00-0.70 [facility] Comment on above: Performed By: #### L ACT #### [facility] [address] [place] [address] Dr. Kerrie Stark EOS% 0.0 % Critically low 0.9-7.0 [facility] Comment on above: Performed By: #### L ACT #### [facility] [address] [address] [address] Kerrie Stark HCT 37.3 % Critically low 42.0-54.0 [facility] Comment on above: Performed By: #### L ACT #### [facility] [address] [address] [address] Kerrie Stark HGB 12.0 g/dl Critically low 14.0-18.0 [facility] Comment on above: Performed By: #### L ACT #### [facility] [address] [address] [address] Kerrie Stark LYMPHM # 0.00 103/ul Critically low 1.20-3.80 [facility] Comment on above: Performed By: #### L ACT #### [facility] [address] [place] [address] Dr. Kerrie Stark LYMPHM% 0.0 % Critically low 20.5-60.0 [facility] Comment on above: Performed By: #### L ACT #### [facility] [address] [place] [address] Dr. Kerrie Stark MCH 33.1 pg Normal 25.9-34.0 [facility] Comment on above: Performed By: #### L ACT #### [facility] [address] [place] [address] Dr. Kerrie Stark MCHC 32.2 g/dl Normal 29.9-35.2 The [facility] Comment on above: Performed By: #### L ACT #### [facility] [address] [address] [address] Kerrie Stark MCV 103.0 fL Critically high 80.0-94.0 [facility] Comment on above: Performed By: #### L ACT #### [facility] [address] [place] [address] Dr. Kerrie Stark METAMYELOCYTE # Normal [facility] Comment on above: Performed By: #### L ACT #### [facility] [address] [place] [address] Dr. Kerrie Stark METAMYELOCYTE % Normal [facility] Comment on above: Performed By: #### L ACT #### [facility] [address] [place] [address] Dr. Kerrie Stark MONOM# 0.69 103/ul Normal 0.30-0.80 [facility] Comment on above: Performed By: #### L ACT #### [facility] [address] [place] [address] Dr. Kerrie Stark MONOM% 5.0 % Normal 1.7-12.0 [facility] Comment on above: Performed By: #### L ACT #### [facility] [address] [place] [address] Dr. Kerrie Stark MPV 10.6 fL Normal 9.5-13.5 [facility] Comment on above: Performed By: #### L ACT #### [facility] [address] [place] [address] Dr. Kerrie Stark MYELOCYTE # Normal [facility] Comment on above: Performed By: #### L ACT #### [facility] [address] [place] [address] Dr. Kerrie Stark MYELOCYTE % Normal [facility] Comment on above: Performed By: #### L ACT #### [facility] [address] [place] [address] Dr. Kerrie Stark NRBC Normal [facility] Comment on above: Performed By: #### L ACT #### [facility] [address] [place] [address] Dr. Kerrie Stark PLT 158 103/ul Normal 150-450 The [facility] Comment on above: Performed By: #### L ACT #### [facility] [address] [place] [address] Dr. Kerrie Stark RBC 3.62 106/ul Critically low 4.70-6.10 [facility] Comment on above: Performed By: #### L ACT #### [facility] [address] [place] [address] Dr. Kerrie Stark RDW 13.2 % Normal 11.0-15.0 [facility] Comment on above: Performed By: #### L ACT #### [facility] [address] [address] [address] Kerrie Stark SEG # 13.02 103/ul Critically high 1.40-6.50 [facility] Comment on above: Performed By: #### L ACT #### [facility] [address] [id number] [address] Kerrie Stark SEG % 95.0 % Critically high 43.0-75.0 [facility] Comment on above: Performed By: #### L ACT #### [facility] [address] [address] [address] Kerrie Stark WBC 13.7 103/ul Critically high 4.0-11.0 [facility] Comment on above: Performed By: #### L ACT #### [facility] [address] [address] [address] Kerrie Stark POINT OF CARE GLUCOSEon Glucose [Mass/Vol] 300 mg/dL Critically high 74-106 [facility] Comment on above: Performed By: #### C BC #### [facility] [address] [address] [address] Kerrie Stark PROF CHEM 8 (BAS METB)on Anion gap [Moles/Vol] 12.5 mmol/L Normal [facility] Comment on above: Performed By: #### D DIM #### [facility] [address] [address] [address] Kerrie Stark Calcium [Mass/Vol] 8.9 mg/dL Normal 8.5-10.1 [facility] Comment on above: Performed By: #### D DIM #### [facility] [address] [address] [address] Kerrie Stark Chloride [Moles/Vol] 103 mmol/L Normal 98-107 [facility] Comment on above: Performed By: #### D DIM #### [facility] [address] [address] [address] Kerrie Stark CO2 [Moles/Vol] 25.4 mmol/L Normal 21.0-32.0 [facility] Comment on above: Performed By: #### D DIM #### [facility] [address] [address] [address] Kerrie Stark Creatinine [Mass/Vol] 1.05 mg/dL Normal 0.70-1.30 [facility] Comment on above: Performed By: #### D DIM #### [facility] [address] [address] [address] Kerrie Stark EGFR-AF COSTA RICAN >60 Normal >=60 [facility] Comment on above: Performed By: #### D DIM #### [facility] [address] [address] [address] Kerrie Stark EGFR-NON AF COSTA RICAN >60 Normal >=60 [facility] Comment on above: Performed By: #### D DIM #### [facility] [address] [place] [address] Dr. Kerrie Stark Glucose [Mass/Vol] 243 mg/dL Critically high 74-106 [facility] Comment on above: Performed By: #### D DIM #### [facility] [address] [address] [address] Kerrie Stark Potassium [Moles/Vol] 3.9 mmol/L Normal 3.5-5.1 [facility] Comment on above: Performed By: #### D DIM #### [facility] [address] [place] [address] Dr. Kerrie Stark Sodium [Moles/Vol] 137 mmol/L Normal 136-145 [facility] Comment on above: Performed By: #### D DIM #### [facility] [address] [address] [address] Kerrie Stark Urea nitrogen [Mass/Vol] 22.0 mg/dL Critically high 7.0-18.0 [facility] Comment on above: Performed By: #### D DIM #### [facility] [address] [address] [address] Kerrie Stark Urea nitrogen/Creatinine [Mass ratio] 21.0 mg/mg Normal [facility] Comment on above: Performed By: #### D DIM #### [facility] [address] [address] [address] Kerrie Stark CARDIAC CONSTANTINE 3-6on 3 CK [Catalytic activity/Vol] 91 U/L Normal 39-308 [facility] Comment on above: Performed By: #### C MREP #### [facility] [address] [address] [address] Kerrie Stark CK.MB [Mass/Vol] 0.35 ng/mL Normal <=3.60 [facility] Comment on above: Performed By: #### C MREP #### [facility] [address] [place] [address] Dr. Kerrie Stark HSTROP 20.8 pg/mL Normal 4.0-76.1 [facility] Comment on above: Result Comment: CUT- OFF POINTS HAVE BEEN ESTABLISHED BASED ON THE FOURTH UNIVERSAL DEFINITIONS OF MYOCARDIAL INFARCTION. THE UPPER REFERENCE LIMIT (URL) OF TROPONIN, DEFINED THE 99TH PERCENTILE OF cTnI DISTRIBUTION IN A REFERENCE POPULATION, HAS BEEN CONFIRMED THE DECISION THRESHOLD FOR IA DIAGNOSIS. Performed By: #### C MREP #### [facility] [address] [place] [address] Dr. Kerrie Stark CARDIAC CONSTANTINE ADMITon 023 CK [Catalytic activity/Vol] 56 U/L Normal 39-308 [facility] Comment on above: Performed By: #### D DIM #### [facility] [address] [place] [address] Dr. Kerrie Stark CK.MB [Mass/Vol] 0.36 ng/mL Normal <=3.60 [facility] Comment on above: Performed By: #### D DIM #### [facility] [address] [place] [address] Dr. Kerrie Stark HSTROP 12.7 pg/mL Normal 4.0-76.1 [facility] Comment on above: Result Comment: CUT- OFF POINTS HAVE BEEN ESTABLISHED BASED ON THE FOURTH UNIVERSAL DEFINITIONS OF MYOCARDIAL INFARCTION. THE UPPER REFERENCE LIMIT (URL) OF TROPONIN, DEFINED THE 99TH PERCENTILE OF cTnI DISTRIBUTION IN A REFERENCE POPULATION, HAS BEEN CONFIRMED THE DECISION THRESHOLD FOR IA DIAGNOSIS. Performed By: #### D DIM #### [facility] [address] [address] [address] Kerrie Stark KIKE 128 ng/mL Critically high 16-96 [facility] Comment on above: Performed By: #### D DIM #### [facility] [address] [address] [address] Kerrie Stark CBC AUTO DIFFon 03-28-2022 BASO # 0.0 103/ul Normal 0.0-0.1 [facility] Comment on above: Performed By: #### C BC #### [facility] [address] [address] [address] Kerrie Stark Basophils/100 WBC (Bld) 0.2 % Normal 0.2-2.0 [facility] Comment on above: Performed By: #### C BC #### [facility] [address] [place] [address] Dr. Kerrie Stark EO # 0.0 103/ul Normal 0.0-0.7 [facility] Comment on above: Performed By: #### C BC #### [facility] [address] [place] [address] Dr. Kerrie Stark Eosinophils/100 WBC (Bld) 0.1 % Critically low 0.9-7.0 [facility] Comment on above: Performed By: #### C BC #### [facility] [address] [place] [address] Dr. Kerrie Stark Erythrocyte distribution width (RBC) [Ratio] 13.3 % Normal 11.0-15.0 [facility] Comment on above: Performed By: #### C BC #### [facility] [address] [place] [address] Dr. Kerrie Stark Hematocrit (Bld) [Volume fraction] 41.9 % Critically low 42.0-54.0 [facility] Comment on above: Performed By: #### C BC #### [facility] [address] [place] [address] Dr. Kerrie Stark Hemoglobin (Bld) [Mass/Vol] 13.3 g/dL Critically low 14.0-18.0 [facility] Comment on above: Performed By: #### C BC #### [facility] [address] [address] [address] Kerrie Stark IG # 0.04 10e3/ul Critically high 0.00-0.03 [facility] Comment on above: Performed By: #### C BC #### [facility] [address] [address] [address] Kerrie Stark IG % 0.4 % Normal 0.0-0.5 [facility] Comment on above: Performed By: #### C BC #### [facility] [address] [address] [address] Kerrie Stark LYMPH # 0.5 103/ul Critically low 1.2-3.8 [facility] Comment on above: Performed By: #### C BC #### [facility] [address] [place] [address] Dr. Kerrie Stark Lymphocytes/100 WBC (Bld) 5.1 % Critically low 20.5-60.0 [facility] Comment on above: Performed By: #### C BC #### [facility] [address] [place] [address] Dr. Kerrie Stark MANUAL DIFF REQ NO Normal [facility] Comment on above: Performed By: #### C BC #### [facility] [address] [place] [address] Dr. Kerrie Stark MCH (RBC) [Entitic mass] 33.2 pg Normal 25.9-34.0 [facility] Comment on above: Performed By: #### C BC #### [facility] [address] [place] [address] Dr. Kerrie Stark MCHC (RBC) [Mass/Vol] 31.7 g/dL Normal 29.9-35.2 [facility] Comment on above: Performed By: #### C BC #### [facility] [address] [place] [address] Dr. Kerrie Stark MCV (RBC) [Entitic vol] 104.5 fL Critically high 80.0-94.0 [facility] Comment on above: Performed By: #### C BC #### [facility] [address] [address] [address] Kerrie Stark MONO # 1.1 103/ul Critically high 0.3-0.8 [facility] Comment on above: Performed By: #### C BC #### [facility] [address] [address] [address] Kerrie Stark Monocytes/100 WBC (Bld) 10.9 % Normal 1.7-12.0 [facility] Comment on above: Performed By: #### C BC #### [facility] [address] [address] [address] Kerrie Stark NEUT # 8.3 103/ul Critically high 1.4-6.5 [facility] Comment on above: Performed By: #### C BC #### [facility] [address] [place] [address] Dr. Kerrie Stark Neutrophils/100 WBC (Bld) 83.3 % Critically high 43.0-75.0 [facility] Comment on above: Performed By: #### C BC #### [facility] [address] [place] [address] Dr. Kerrie Stark Platelet mean volume (Bld) [Entitic vol] 10.8 fL Normal 9.5-13.5 [facility] Comment on above: Performed By: #### C BC #### [facility] [facility] [address] [place] [address] Dr. Kerrie Stark PLT 145 103/ul Critically low 150-450 [facility] Comment on above: Performed By: #### C BC #### [facility] [address] [place] [address] Dr. Kerrie Stark RBC 4.01 106/ul Critically low 4.70-6.10 [facility] Comment on above: Performed By: #### C BC #### [facility] [address] [address] [address] Kerrie Stark WBC 10.0 103/ul Normal 4.0-11.0 [facility] Comment on above: Performed By: #### C BC #### [facility] [address] [place] [address] Dr. Kerrie Stark CTA CHEST WO W [...] FAROOQ HARDEN Date: 2022-03-28 06:03 Normal [facility] Covid-19 PCR (CVDTBH)on SARS-CoV-2 (COVID-19) RNA QUE+probe Ql (Unsp spec) Detected Abnormal NOT DETECTED [facility] Comment on above: Result Comment: This test is not yet approved or cleared by the [place] FDA. When there are no FDA-approved or cleared tests available, and other criteria are met, FDA can make tests available under an emergency access mechanism called an Emergency Use Authorization (EUA). The EUA for this test is supported by the [employer] [place] [employer] and Human Service's declaration that [...] used). Performed By: #### C BC #### [facility] [address] [place] [address] Dr. Kerrie Stark D-DIMERon 03-28-2022 D-DIMER 0.71 mg/L FEU Critically high <=0.59 [facility] Comment on above: Performed By: #### D DIM #### [facility] [address] [place] [address] Dr. Kerrie Stark D-DIMER COMMENTS SEE BELOW Normal [facility] Comment on above: Result Comment: Incr eases [...] hospitalization. Performed By: #### D DIM #### [facility] [address] [place] [address] Dr. Kerrie Stark ER URINE PROFILEon 3 Bilirubin Ql (U) Negative Normal NEGATIVE [facility] Comment on above: Performed By: #### P OCGLUC #### [facility] [address] [place] [address] Dr. Kerrie Stark Clarity (U) CLEAR Normal CLEAR [facility] Comment on above: Performed By: #### P OCGLUC #### [facility] [address] [place] [address] Dr. Kerrie Stark Color (U) YELLOW Normal YELLOW [facility] Comment on above: Performed By: #### P OCGLUC #### [facility] [address] [place] [address] Dr. Kerrie Stark ERUAHD A micrscopic examination will be performed if indicated. Normal [facility] Comment on above: Performed By: #### P OCGLUC #### [facility] [address] [address] [address] Kerrie Stark Glucose Ql (U) Negative Normal NEGATIVE [facility] Comment on above: Performed By: #### P OCGLUC #### [facility] [address] [address] [address] Kerrie Stark Hemoglobin Ql (U) Negative Normal NEGATIVE [facility] Comment on above: Performed By: #### P OCGLUC #### [facility] [address] [address] [address] Kerrie Stark Ketones Ql (U) TRACE Abnormal NEGATIVE [facility] Comment on above: Performed By: #### P OCGLUC #### [facility] [address] [place] [address] Dr. Kerrie Stark LEUKOCYTES Negative Normal NEGATIVE [facility] Comment on above: Performed By: #### P OCGLUC #### [facility] [address] [address] [address] Kerrie Stark Nitrite Ql (U) Negative Normal NEGATIVE [facility] Comment on above: Performed By: #### P OCGLUC #### [facility] [address] [address] [address] Kerrie Stark pH (U) 5.5 [pH] Normal 5-9 [facility] Comment on above: Performed By: #### P OCGLUC #### [facility] [address] [address] [address] Kerrie Stark Protein (U) [Mass/Vol] 30 mg/dL Abnormal NEGAT LITTLE/ TRACE [facility] Comment on above: Performed By: #### P OCGLUC #### [facility] [address] [address] [address] Kerrie Stark SPEC GRAVITY 1.025 Normal 1.005-<=1.025 [facility] Comment on above: Performed By: #### P OCGLUC #### [facility] [address] [address] [address] Kerrie Stark UR MICRO IND NOT INDICATED Normal [facility] Comment on above: Performed By: #### P OCGLUC #### [facility] [address] [place] [address] Dr. Kerrie Stark Urobilinogen Qn (U) 1.0 {Ricky'U}/dL Normal 0.2 - 1. 0 [facility] Comment on above: Performed By: #### P OCGLUC #### [facility] [address] [place] [address] Dr. Kerrie Stark INFLUENZA A AND B AGon 03-28 INFLUANEGH SEE BELOW Normal [facility] Comment on above: Result Comment: Nega tive for Flu A protein angiten. Infection due to Flu A cannot be ruled out. Flu A angiten in the sample may be below the detection limit of the test. Performed By: #### L ACT #### [facility] [address] [place] [address] Dr. Kerrie Stark INFLUBNEGH SEE BELOW Normal [facility] Comment on above: Result Comment: Nega tive for Flu B protein antigen. Infection due to Flu B cannot be ruled out. Flu B antigen in the sample may be below the detection limit of the test. Performed By: #### L ACT #### [facility] [address] [place] [address] Dr. Kerrie Stark INFLUENZA A AG Negative Normal NEGATIVE SEE COMMENT [facility] Comment on above: Performed By: #### L ACT #### [facility] [address] [place] [address] Dr. Kerrie Stark INFLUENZA B AG Negative Normal NEGATIVE SEE COMMENT [facility] Comment on above: Performed By: #### L ACT #### [facility] [address] [place] [address] Dr. Kerrie Stark POINT OF CARE GLUCOSEon Glucose [Mass/Vol] 251 mg/dL Critically high 74-106 [facility] Comment on above: Performed By: #### C BC #### [facility] [address] [place] [address] Dr. Kerrie Stark Glucose [Mass/Vol] 244 mg/dL Critically high 74-106 [facility] Comment on above: Performed By: #### B LDCX1 #### [facility] [address] [address] [address] Kerrie Stark Glucose [Mass/Vol] 398 mg/dL Critically high 74-106 [facility] Comment on above: Performed By: #### P OCGLUC #### [facility] [address] [address] [address] Kerrie Stark PROF CHEM 8 (BAS METB)on Anion gap [Moles/Vol] 17.2 mmol/L Normal [facility] Comment on above: Performed By: #### D DIM #### [facility] [address] [address] [address] Kerrie Stark Calcium [Mass/Vol] 9.0 mg/dL Normal 8.5-10.1 [facility] Comment on above: Performed By: #### D DIM #### [facility] [address] [address] [address] Kerrie Stark Chloride [Moles/Vol] 96 mmol/L Critically low 98-107 [facility] Comment on above: Performed By: #### D DIM #### [facility] [address] [address] [address] Kerrie Stark CO2 [Moles/Vol] 23.6 mmol/L Normal 21.0-32.0 [facility] Comment on above: Performed By: #### D DIM #### [facility] [address] [address] [address] Kerrie Stark Creatinine [Mass/Vol] 1.41 mg/dL Critically high 0.70-1.30 [facility] Comment on above: Performed By: #### D DIM #### [facility] [address] [address] [address] Kerrie Stark EGFR-AF [place] 58 mL/min/1.73m2 Critically low >=60 [facility] Comment on above: Performed By: #### D DIM #### [facility] [address] [address] [address] Kerrie Stark EGFR-NON AF [place] 48 mL/min/1.73m2 Critically low >=60 [facility] Comment on above: Performed By: #### D DIM #### [facility] [address] [address] [address] Kerrie Stark Glucose [Mass/Vol] 151 mg/dL Critically high 74-106 [facility] Comment on above: Performed By: #### D DIM #### [facility] [address] [place], [place] [address] Dr. Kerrie Stark Potassium [Moles/Vol] 3.8 mmol/L Normal 3.5-5.1 [facility] Comment on above: Performed By: #### D DIM #### [facility] [address] [address] [address] Kerrie Stark Sodium [Moles/Vol] 133 mmol/L Critically low 136-145 [facility] Comment on above: Performed By: #### D DIM #### [facility] [address] [address] [address] Kerrie Stark Urea nitrogen [Mass/Vol] 20.0 mg/dL Critically high 7.0-18.0 [facility] Comment on above: Performed By: #### D DIM #### [facility] [address] [address] [address] Kerrie Stark Urea nitrogen/Creatinine [Mass ratio] 14.2 mg/mg Normal [facility] Comment on above: Performed By: #### D DIM #### [facility] [address] [address] [address] Kerrie Stark XR CHEST 2 Von [...] by: PONCHO ROCHA Date: 2022-03-28 01:38 Normal [facility] Auth for Release of Medical Recordson 03-09-2022 Auth for Release of Medical Records [id number] #[id number] Normal [facility] Cult,Urineon 03-02-2022 Cult,Urine Specimen Description .CLEAN CATCH URINE Culture NO SIGNIFICANT GROWTH Report Status FINAL 03/02/2022 Normal [facility] Comment on above: Performed By: #### U RC #### [facility] [address], [place] [id number] Executive Coordinator: Sandip Smith MD [address] [place] [address] Executive Coordinator: Ulisses Gaines MD Urinalysis w/ Microon 2022 Bacteria TRACE Abnormal NONE [facility] Comment on above: Performed By: #### U AMIC #### [address] [place], [place] [id number] Executive Coordinator: Ulisses Gaines MD Bilirubin, SemiQt,Ur Negative Normal NEG [facility] Comment on above: Performed By: #### U AMIC #### [address] [place] [address] Executive Coordinator: Ulisses Gaines MD Blood, Urine Negative Normal NEG [facility] Comment on above: Performed By: #### U AMIC #### [facility] [address] [place] [address] [place] [address] Executive Coordinator: Ulisses Gaines MD Clarity (U) Clear Normal CLEAR [facility] Comment on above: Performed By: #### U AMIC #### [address] [place] [address] Executive Coordinator: Ulisses Gaines MD Color (U) Yellow Normal YEL [facility] Comment on above: Performed By: #### U AMIC #### [facility] [address] [place] [address] Dr. [place], [place] [id number] Executive Coordinator: Ulisses Gaines MD Epithelial cells LM Ql (Urine sed) 0 TO 2 Normal 0-5 [facility] Comment on above: Performed By: #### U AMIC #### [facility] [address] [place], [place] [id number] Executive Coordinator: Ulisses Gaines MD Glucose Ql (U) Negative Normal NEG [facility] Comment on above: Performed By: #### U AMIC #### [facility] [address] [place] [address] Dr. [place], [place] [id number] Executive Coordinator: Ulisses Gaines MD Ketones Ql (U) Negative Normal NEG [facility] Comment on above: Performed By: #### U AMIC #### [facility] [address] [place] [address] Dr. [place], [place] [id number] Executive Coordinator: Ulisses Gaines MD Leukocyte esterase Test strip Ql (U) Negative Normal NEG [facility] Comment on above: Performed By: #### U AMIC #### [facility] [address] [place] [address] Dr. [place], [place] [id number] Executive Coordinator: Ulisses Gaines MD Nitrite,Ur Negative Normal NEG [facility] Comment on above: Performed By: #### U AMIC #### [facility] [address] [place] [address] Dr. [place], [place] [id number] Executive Coordinator: Ulisses Gaines MD PH,Ur 6.0 Normal 5.0-9.0 [facility] Comment on above: Performed By: #### U AMIC #### [facility] [address] [place] [address] Dr. [place], [place] [id number] Executive Coordinator: Ulisses Gaines MD Protein Ql (U) Negative Normal NEG [facility] Comment on above: Performed By: #### U AMIC #### [facility] [address] [place] [address] Dr. [place], [place] [id number] Executive Coordinator: Ulisses Gaines MD Spec. Advance,Ur 1.010 Normal 1.010-1.020 [facility] Comment on above: Performed By: #### U AMIC #### [facility] [address] [place], [place] [id number] Executive Coordinator: Ulisses Gaines MD Urine RBC's None Normal 0-2 [facility] Comment on above: Performed By: #### U AMIC #### [facility] [address] [place], [place] [id number] Executive Coordinator: Ulisses Gaines MD Urine WBC's None Normal 0-5 [facility] Comment on above: Performed By: #### U AMIC #### [facility] [address] [place], [place] [id number] Executive Coordinator: Ulisses Gaines MD Urobilinogen,Ur Normal Normal NORM [facility] Comment on above: Performed By: #### U AMIC #### [facility] [address] [place], [place] [id number] Executive Coordinator: Ulisses Gaines MD Urinalysis with Microscopico n 03-01-2022 Bacteria, UA TRACE Abnormal None [facility] Bilirubin Urine Negative NEGATIVE [facility] Color, UA Yellow Yellow [facility] Epithelial Cells UA 0 TO 2 [facility] Glucose, Ur Negative NEGATIVE [facility] Interpretation and review of laboratory results Abnormal [facility] Ketones Ql (U) Negative NEGATIVE [facility] Leukocyte esterase Test strip Ql (U) Negative NEGATIVE [facility] Nitrite, Urine Negative NEGATIVE [facility] pH, UA 6.0 5.0 - 9.[address] [facility] Protein, UA Negative NEGATIVE [facility] RBC, UA None [facility] Specific Advance, UA 1.010 1.010 - 1.020 B ON [facility] Turbidity UA Clear Clear [facility] Urine Hgb Negative NEGATIVE [facility] Urobilinogen, Urine Normal Normal [facility] WBC, UA None [facility] GLYCOHEMOGLOBIN A1Con 2021 ADA RECOMMENDATION SEE BELOW Normal [facility] Comment on above: Result Comment: ADA RECOMMENDED LIMIT 4.0 - 6.0 ADA THERAPEUTIC TARGET < 7.0 ACTION SUGGESTED > 7.0 Performed By: #### P OCGLUC #### [facility] [address] [address] [address] Kerrie Stark Glucose [Mass/Vol] 146 mg/dL Normal [facility] Comment on above: Performed By: #### P OCGLUC #### [facility] [address] [address] [address] Kerrie Stark HbA1c (Bld) [Mass fraction] 6.7 % Critically high 4.5-6.2 [facility] Comment on above: Performed By: #### P OCGLUC #### [facility] [address] [address] [address] Kerrie Stark LIPID PROFILEon 02-01-2022 CHOL-HDL RATIO NORM SEE BELOW Normal [facility] Comment on above: Result Comment: 3.3 - 4.4 LOW RISK 4.4 - 7.1 AVERAGE RISK 7.1 - 11.0 MODERATE RISK >11.0 HIGH RISK Performed By: #### P OCGLUC #### [facility] [address] [address] [address] Kerrie Stark Cholesterol [Mass/Vol] 127 mg/dL Normal <=200 [facility] Comment on above: Performed By: #### P OCGLUC #### [facility] [address] [address] [address] Kerrie Stark Cholesterol in HDL [Mass/Vol] 50 mg/dL Normal 40-60 [facility] Comment on above: Performed By: #### P OCGLUC #### [facility] [address] [place] [address] Dr. Kerrie Stark Cholesterol in LDL [Mass/Vol] 58.8 mg/dL Normal [facility] Comment on above: Performed By: #### P OCGLUC #### [facility] [address] [address] [address] Kerrie Stark Cholesterol.total/Chol esterol in HDL [Mass ratio] 2.5 {ratio} Normal [facility] Comment on above: Performed By: #### P OCGLUC #### [facility] [address] [address] [address] Kerrie Stark HDL NORMAL > or = 60 mg/dl - LOW CARDIOVASCULAR RISK <40 mg/dl - HIGH CARDIOVASCULAR RISK Normal [facility] Comment on above: Performed By: #### P OCGLUC #### [facility] [address] [address] [address] Kerrie Stark LDL CALC NORMAL SEE BELOW Normal [facility] Comment on above: Result Comment: <100 mg/dl OPTIMAL 100 - 129 mg/dl NEAR OR ABOVE OPTIMAL 130 - 159 mg/dl BORDERLINE HIGH 160 - 189 mg/dl HIGH >190 mg/dl VERY HIGH Performed By: #### P OCGLUC #### [facility] [address] [address] [address] Kerrie Stark Triglyceride [Mass/Vol] 91 mg/dL Normal <=150 [facility] Comment on above: Performed By: #### P OCGLUC #### [facility] [address] [address] [address] Kerrie Stark VLDL CALC 18.2 mg/dL Normal [facility] Comment on above: Performed By: #### P OCGLUC #### [facility] [address] [address] [address] Kerrie Stark PROF 14(COMP METB)on 022 Albumin [Mass/Vol] 3.8 g/dL Normal 3.4-5.0 [facility] Comment on above: Performed By: #### P OCGLUC #### [facility] [address] [address] [address] Kerrie Stark Albumin/Globulin [Mass ratio] 1.0 {ratio} Normal [facility] Comment on above: Performed By: #### P OCGLUC #### [facility] [address] [address] [address] Kerrie Stark ALP [Catalytic activity/Vol] 56 U/L Normal 46-116 [facility] Comment on above: Performed By: #### P OCGLUC #### [facility] [address] [address] [address] Kerrie Stark ALT [Catalytic activity/Vol] 30 U/L Normal 16-63 [facility] Comment on above: Performed By: #### P OCGLUC #### [facility] [address] [address] [address] Kerrie Stark Anion gap [Moles/Vol] 13.3 mmol/L Normal [facility] Comment on above: Performed By: #### P OCGLUC #### [facility] [address] [address] [address] Kerrie Stark AST [Catalytic activity/Vol] 26 U/L Normal 15-37 [facility] Comment on above: Performed By: #### P OCGLUC #### [facility] [address] [address] [address] Kerrie Stark Bilirubin [Mass/Vol] 0.7 mg/dL Normal 0.2-1.0 [facility] Comment on above: Performed By: #### P OCGLUC #### [facility] [address] [address] [address] Kerrie Stark Calcium [Mass/Vol] 9.0 mg/dL Normal 8.5-10.1 [facility] Comment on above: Performed By: #### P OCGLUC #### [facility] [address] [address] [address] Kerrie Stark Chloride [Moles/Vol] 105 mmol/L Normal 98-107 [facility] Comment on above: Performed By: #### P OCGLUC #### [facility] [address] [address] [address] Kerrie Stark CO2 [Moles/Vol] 28.3 mmol/L Normal 21.0-32.0 [facility] Comment on above: Performed By: #### P OCGLUC #### [facility] [address] [address] [address] Kerrie Stark Creatinine [Mass/Vol] 1.00 mg/dL Normal 0.70-1.30 [facility] Comment on above: Performed By: #### P OCGLUC #### [facility] [address] [address] [address] Kerrie Stark EGFR-AF [place] >60 Normal >=60 [facility] Comment on above: Performed By: #### P OCGLUC #### [facility] [address] [address] [address] Kerrie Stark EGFR-NON AF [place] >60 Normal >=60 [facility] Comment on above: Performed By: #### P OCGLUC #### [facility] [address] [address] [address] Kerrie Stark Globulin (S) [Mass/Vol] 3.7 g/dL Normal [facility] Comment on above: Performed By: #### P OCGLUC #### [facility] [address] [address] [address] Kerrie Stark Glucose [Mass/Vol] 150 mg/dL Critically high 74-106 [facility] Comment on above: Performed By: #### P OCGLUC #### [facility] [address] [address] [address] Kerrie Stark Potassium [Moles/Vol] 5.6 mmol/L Critically high 3.5-5.1 [facility] Comment on above: Performed By: #### P OCGLUC #### [facility] [address] [address] [address] Kerrie Stark Protein [Mass/Vol] 7.5 g/dL Normal 6.4-8.2 [facility] Comment on above: Performed By: #### P OCGLUC #### [facility] [address] [address] [address] Kerrie Stark Sodium [Moles/Vol] 141 mmol/L Normal 136-145 [facility] Comment on above: Performed By: #### P OCGLUC #### [facility] [address] [address] [address] Kerrie Stark Urea nitrogen [Mass/Vol] 18.0 mg/dL Normal 7.0-18.0 [facility] Comment on above: Performed By: #### P OCGLUC #### [facility] [address] [place], [place] [address] Dr. Kerrie Stark Urea nitrogen/Creatinine [Mass ratio] 18.0 mg/mg Normal [facility] Comment on above: Performed By: #### P OCGLUC #### [facility] [address] [place], [place] [address] Dr. Kerrie Stark Creatinine (Bld) [Mass/Vol]O rdered By: Oumar Haynes on 01-30-2022 Creatinine [Mass/Vol] 1.0 mg/dL 0.6-1.3 [facility] Comment on above: ER/ESD physician is notified/shown all ISTAT results.Critical values may be confirmed by laboratory testing ifdeemed necessary by ER attending doctor. No Panel InformationOrdered By: Oumar Haynes on 01-30-2022 POC Estimated GFR > 60 [facility] Comment on above: GFR estimated refere nce range: According to KDOQI guidelines, <60 ml/min/1.73m2 is sufficient to diagnose a patient with chronic kidney disease. POC Estimated GFR Non- Amer > 60 [facility] Auth for Release of Medical Recordson 12-22-2021 Auth for Release of Medical Records [id number] #1.00CD:127 Normal [facility] Formson 11-25-2021 Forms [id number] #1.00CD:127 Normal [facility] Patient Educationon 11-24-19 Patient Education Infectious Disease [...] Follow these instructions at home: ? Take upao-git-zzpktlk and prescription medicines only as told by [...] Docum (more content not included)... Normal [facility] Urology Office/Clinic Noteon 11-23-2021 Urology Office/Clinic Note [...] w 4 wks abx. side effects/risks discussed. 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 encouraged probiotics, metamucil, and yogurt to help w diarrhea. complete entire abx course. f/u in 2-3 mos to reassess Ordered: sulfamethoxazole-tri methoprim, 1 tab(s), Oral, BID for 4 week(s), 56 tab(s), Refill(s) 0, [id number], 180, cm, 11/23/21 10:01:00 EDT, Height/Length Dosing, 84, kg, 11/23/21 10:01:00 EDT, Weight Dosing E&M of New Patient Moderate 45-59 Min 76004 3. BPH with obstruction/lower urinary tract symptoms (N40.1: Benign prostatic hyperplasia with lower urinary tract symptoms) IPSS 4, QOL 1. on tamsulosin. s/p REZUM Dec 2017. overall pleased w urinary sx at baseline. dissatisfied with recent sx. Ordered: sulfamethoxazole-tri methoprim, 1 tab(s), Oral, BID for 4 week(s), 56 tab(s), Refill(s) 0, [id number], 180, cm, 11/23/21 10:01:00 EDT, Height/Length Dosing, 84, kg, 11/23/21 10:01:00 EDT, Weight Dosing E&M of New Patient Moderate 45-59 Min 20717 Orders: Urnls Dip Stick Auto w/o Microscopy POC [id number] Follow-up With When Contact Information MY GALDAMEZ, KONG Brown, URL Within 3 months [address] [facility] [place] [address] Additional Instructions: Patient Education Prostatitis Problem List/Past [...] Protein Urine Dipstick: Negative (11/23/21 09:44:00) Specific Advance Urine Dipstick: 1.015 (11/23/21 09 (more content not included)... Normal [facility] Comment on above: Result Comment: Elec tronically Signed By: KONG PEPE PA-C\.br\Date and Time Signed: 11/23/21 11:02 EDT Historical Records Officeon 11-01-2021 Historical Records Office [id number] #1.00CD:127 Normal [facility] FREE T3on 09-21-2021 FREE T3 1.88 pg/mlL Critically low 2.18-3.98 [facility] Comment on above: Performed By: #### P OCGLUC #### [facility] [address] [place] [address] Dr. Kerrie Stark FREE T4on 09-21-2021 Free T4 [Mass/Vol] 1.28 ng/dL Normal 0.76-1.46 [facility] Comment on above: Performed By: #### D DIM #### [facility] [address] [place] [address] Dr. Kerrie Stark TSHon 09-21-2021 TSH 0.625 uIU/mL Normal 0.358-3.740 [facility] Comment on above: Performed By: #### P OCGLUC #### [facility] [address] [address] [address] Kerrie Stark CTA Abdomen/Pelvis w/ and [...] by Harpal Crane on 08/11/2021 1410 Normal [facility] Specialist CREATININEon 08-03-2021 Creatinine [Mass/Vol] 0.98 mg/dL Normal 0.70-1.30 [facility] Comment on above: Performed By: #### L ACT #### [facility] [address] [address] [address] Kerrie Stark EGFR-AF COSTA RICAN >60 Normal >=60 [facility] Comment on above: Performed By: #### L ACT #### [facility] [address] [address] [address] Kerrie Stark EGFR-NON AF [place] R[place] >60 Normal >=60 [facility] Comment on above: Performed By: #### L ACT #### [facility] [address] [address] [address] Kerrie Stark GLYCOHEMOGLOBIN A1Con 2021 ADA RECOMMENDATION SEE BELOW Normal [facility] Comment on above: Result Comment: ADA RECOMMENDED LIMIT 4.0 - 6.0 ADA THERAPEUTIC TARGET < 7.0 ACTION SUGGESTED > 7.0 Performed By: #### P OCGLUC #### [facility] [address] [address] [address] Kerrie Stark Glucose [Mass/Vol] 146 mg/dL Normal [facility] Comment on above: Performed By: #### P OCGLUC #### [facility] [address] [address] [address] Kerrie Stark HbA1c (Bld) [Mass fraction] 6.7 % Critically high 4.5-6.2 [facility] Comment on above: Performed By: #### P OCGLUC #### [facility] [address] [address] [address] Kerrie Stark Vital Signs Date Time Vital Sign Value Performing Clinician Facility 01-31-2023 10:00-0500 Body height 175.26 cm Horace Jasso Other [facility] Other 01-31-2023 10:00-0500 Body mass index (BMI) [Ratio] 27.32 kg/m2 Horace Jasso Other [facility] Other 01-31-2023 10:00-0500 Body temperature 97.6 [degF] Horace Jasso Other [facility] Other 01-31-2023 10:00-0500 Body weight 83.92 kg Horace Jasso Other [facility] Other 01-31-2023 10:00-0500 Diastolic blood pressure 64 mm[Hg] Horace Jasso Other [facility] Other 01-31-2023 10:00-0500 SaO2% (BldA) [Mass fraction] 94 % Horace Jasso Other [facility] Other 01-31-2023 10:00-0500 Systolic blood pressure 108 mm[Hg] Horace Jasso Other [facility] Other 03-27-2022 23:40-0500 Diastolic blood pressure 78 mm[Hg] [facility] [employer] 03-27-2022 23:40-0500 Heart rate 121 /min [facility] [employer] 03-27-2022 23:40-0500 Respiratory rate 22 /min [facility] [employer] 03-27-2022 23:40-0500 SaO2% (BldA) [Mass fraction] 92 % [facility] [employer] 03-27-2022 23:40-0500 Systolic blood pressure 137 mm[Hg] [facility] [employer] 01-31-2022 12:00-0500 Body height 175.26 cm 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 Other [facility] Other 01-31-2022 12:00-0500 Body mass index (BMI) [Ratio] 27.32 kg/m2 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 Other [facility] Other 01-31-2022 12:00-0500 Body temperature 96.4 [degF] 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 Other [facility] Other 01-31-2022 12:00-0500 Body weight 83.92 kg 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 Other [facility] Other 01-31-2022 12:00-0500 Diastolic blood pressure 72 mm[Hg] 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 Other [facility] Other 01-31-2022 12:00-0500 SaO2% (BldA) [Mass fraction] 97 % 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 Other [facility] Other 01-31-2022 12:00-0500 Systolic blood pressure 120 mm[Hg] 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 Other [facility] Other 11-23-2021 09:59-0400 Blood Pressure Location KONG PEPE [facility] 11-23-2021 09:59-0400 Diastolic blood pressure 70 mm[Hg] KONG PEPE [facility] 11-23-2021 09:59-0400 Heart rate 66 /min KONG PEPE [facility] 11-23-2021 09:59-0400 Systolic blood pressure 132 mm[Hg] KONG PEPE [facility] 08-16-2021 12:45-0400 Body height 175.26 cm Oumar Lionquentin Other [facility] Other 08-16-2021 12:45-0400 Body mass index (BMI) [Ratio] 27.32 kg/m2 Oumar Lionrer Other [facility] Other 08-16-2021 12:45-0400 Body temperature 96.9 [degF] Oumar Knapprachid Other [facility] Other 08-16-2021 12:45-0400 Body weight 83.92 kg Oumar Lionrerachid Other [facility] Other 08-16-2021 12:45-0400 Diastolic blood pressure 78 mm[Hg] Oumar Hankd Other [facility] Other 08-16-2021 12:45-0400 SaO2% (BldA) [Mass fraction] 95 % Oumar Lionquentin Other [facility] Other 08-16-2021 12:45-0400 Systolic blood pressure 110 mm[Hg] Oumar Lionrerachid Other [facility] Other Encounters Encounter Date Encounter Type Care Provider Facility Start: 03-28-2023 Dona diez MD Work Phone: [facility] Comment on above: 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, with long-term current use of insulin (HCC) (CMS/HCC) Start: 01-31-2023 Office outpatient vi sit 15 minutes Horace ALMANZA [facility] Start: 01-31-2023 End: 01-31-2023 ambulatory 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 Facility:[facility] Start: 01-31-2023 End: 01-31-2023 ambulatory MD Clayton Mcfadden Work Phone: [facility] [employer] Other Start: 01-31-2023 End: 01-31-2023 Patient encounter procedure MD Clayton Mcfadden Work Phone: [facility] Start: 01-15-2023 End: 01-15-2023 ambulatory CLAYTON MCFADDEN Not Available Start: 12-01-2022 End: 12-01-2022 ambulatory CLAYTON MCFADDEN [facility] Start: 10-03-2022 End: 10-03-2022 ambulatory CLAYTON MCFADDEN [facility] Start: 08-28-2022 End: 08-29-2022 ambulatory CLAYTON MCFADDEN [facility] Start: 08-09-2022 End: 08-10-2022 ambulatory CLAYTON MCFADDEN [facility] Start: 08-09-2022 End: 08-09-2022 Subsequent hospital visit by physician Clayton Mcfadden MD Work Phone: [facility] Laboratory Comment on above: Dysuria; Frequency of micturition Start: 07-03-2022 End: 07-04-2022 ambulatory ZOILA JAVED . Facility:[facility] Start: 06-26-2022 End: 06-27-2022 ambulatory ZOILA JAVED . Facility:[facility] Start: 06-14-2022 End: 06-15-2022 ambulatory CLAYTON MCFADDEN [facility] Start: 04-24-2022 End: 05-18-2022 ambulatory THELMA BETTS Facility:[facility] Start: 04-19-2022 End: 04-19-[address] CLAYTON MCFADDEN . Facility:[facility] Start: 04-05-2022 End: 04-08-2022 Evaluation and management of inpatient ELDER DONALD . Facility:[facility] Start: 04-05-2022 End: 04-06-[address] CLAYTON MCFADDEN . Facility:[facility] Start: 03-30-2022 End: 06-29-2022 ambulatory UNKNOWN PROVIDER Facility:[facility] Start: 03-28-2022 End: 03-29-2022 ambulatory SHAIKH Matilde LAU Facility:[facility] Start: 03-27-2022 End: 03-27-2022 ambulatory [facility] Emergenc y Triage, Treat and Transport Start: 03-27-2022 End: 03-27-2022 Emergency department patient visit [facility] Emergency Triage, Treat and Transport Comment on above: Arrived Start: 03-02-2022 End: 03-03-[address] CLAYTON MCFADDEN . Facility:[facility] Start: 03-01-2022 End: 03-02-2022 ambulatory ERICA Miguel [facility] Start: 03-01-2022 End: 03-01-2022 Subsequent hospital visit by physician Clayton Mcfadden MD Work Phone: [facility] Laboratory Comment on above: BPH with obstruction /lower urinary tract symptoms; Dysuria Start: 02-22-2022 ambulatory KONG Yangi ty:KENNY Melchor Start: 02-20-[address] CLAYTON MCFADDEN . Fac ility:[facility] Start: 02-06-2022 End: 02-07-[address] CLAYTON MCFADDEN . Facility:[facility] Start: 02-06-2022 End: 02-06-[address] CLAYTON MCFADDEN . Facility:[facility] Start: 02-01-2022 End: 02-02-[address] CLAYTON MCFADDEN . Facility:[facility] Start: 01-31-2022 End: 01-31-2022 ambulatory 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 Other [facility] [employer] Other Start: 01-31-2022 Follow-up encounter Yolette Rosenberg [facility] Surgery Start: 01-30-2022 End: 01-30-2022 ambulatory MD Clayton Mcfadden Work Phone: [facility] Work Phone: Start: 01-30-2022 End: 01-30-2022 Patient encounter procedure MD Clayton Mcfadden Work Phone: [facility] [place] Start: 11-23-2021 End: 11-24-2021 ambulatory KONG PEPE Facility:[facility] Start: 11-23-2021 End: 11-23-2021 Patient encounter procedure KONG PEPE [facility] Start: 09-21-2021 End: 09-22-[address] CLAYTON MCFADDEN . Facility: Start: 08-19-[address] CLAYTON MCFADDEN . Fac ility: Start: 08-16-2021 End: 08-16-2021 ambulatory Oumar Haynes Other [facility] Other Start: 08-16-2021 Office outpatient ne w 45 minutes Oumar Haynes [facility] Vascular Surgery Start: 08-03-2021 End: 08-04-[address] CLAYTON MCFADDEN . Facility: Procedures Date Procedure Procedure Detail Performing Clinician Start: 01-31-2023 US scan of aorta MD Sang Mcfadden Work Phone: Start: 03-02-[address] CLAYTON MCFADDEN . Comment on above: Performed By: #### P OCGLUC #### [facility] [address] [place] [address] Dr. Kerrie Stark Start: 03-01-2022 Urnls dip stick/tabl et reagent auto microscopy Erica Veras MD Work Phone: Start: 01-30-2022 Computed tomography angiography of abdominal and/or pelvic blood vessel MD Clayton Mcfadden Work Phone: Start: 12-24-2017 Cystoscopy KONG BRITO Start: 02-19-1977 H/O: vasectomy KONG PEPE Plan of Treatment Date Care Activity Detail Author Start: 03-06-2024 Glaucoma screening Diabetes: R etinopathy Screening [facility] Start: 05-22-2023 End: 04-02-2024 Patient encounter procedure 05/22/2023 11:00 AM EDT Office Visit [facility] [address] [facility] [place] [address] Clayton Mcfadden MD [address] [place] [address] [facility] Start: 01-23-2023 Hemoglobin A1c measurement Diabetes: Hemoglobin A1C [facility] Start: 09-20-2022 End: 09-20-2022 Patient encounter procedure 09/20/2022 Office Visit [facility] Start: 03-20-2022 End: 03-20-2022 Patient encounter procedure 03/20/2022 Procedure visit [facility] Start: 03-01-2022 Annual Wellness Visi t (AWV) Annual Wellness Visit (AWV) [facility] Start: 11-19-2021 Influenza vaccination Influenza Vacc ine (#1) [facility] Start: 09-19-2021 Influenza vaccination Flu vaccine (# 1) [facility] Start: 01-29-2021 COVID-19 Vaccine (4 - Booster for Pfizer series) COVID-19 Vaccine (4 - Booster for Pfizer series) [facility] Start: 02-18-2014 Shingles vaccine (2 of 3) Shingles vaccine (2 of 3) [facility] Start: 2005 Pneumococcal 65+ yea rs Vaccine (1 - PCV) Pneumococcal 65+ years Vaccine (1 - PCV) [facility] Start: 2005 Pneumococcal vaccination Pneumococcal Vaccine(s) (65+ yrs) (1 - PCV) [facility] Start: 1990 Shingles (RZV) Vacci ne (1 of 2) Shingles (RZV) Vaccine (1 of 2) [facility] Start: 1990 Shingles vaccine (1 of 2) Shingles vaccine (1 of 2) [facility] Start: 04-26-1959 DTaP/Tdap/Td vaccine (1 - Tdap) DTaP/Tdap/Td vaccine (1 - Tdap) [facility] Start: 1958 Tetanus + diphtheria + acellular pertussis vaccine (product) Tdap Booster [facility] Start: 1952 Depression Screen Depression Screen [facility] Start: 1950 Lipid panel Lipids [facility] Start: 1940 COVID-19 Vaccine (#1) COVID-19 Vacci ne (#1) [facility] End: 03-01-2022 Culture, Urine [facility] Work Phone: Comment on above: 1 Occurrences starti ng 03/01/2022 until 03/01/2022 End: 08-09-2022 Culture, Urine [facility] Comment on above: 1 Occurrences starti ng 08/09/2022 until 08/09/2022 Immunizations Immunization Date Immunization Notes Care Provider [facility] 12-04-2022 Influenza, Seasonal, Quadrivalent, Adjuvanted Clayton Mcfadden MD Work Phone: [facility] 12-08-2021 influenza, injectabl e, quadrivalent, preservative free Clayton Mcfadden MD Work Phone: [facility] 12-08-2021 Influenza, Seasonal, Quadrivalent, Adjuvanted Calyton Mcfadden MD Work Phone: [facility] 12-04-2020 influenza, high dose seasonal, preservative-free Clayton Mcfadden MD Work Phone: [facility] 12-04-2020 Influenza, High-dose Seasonal, Quadrivalent, Preservative Free Clayton Mcfadden MD Work Phone: [facility] 11-29-2019 influenza, injectabl e, quadrivalent, preservative free Clayton Mcfadden MD Work Phone: [facility] 10-15-2019 influenza, high dose seasonal, preservative-free Clayton Mcfadden MD Work Phone: [facility] 11-07-2018 influenza, injectabl e, quadrivalent, preservative free Clayton Mcfadden MD Work Phone: [facility] 11-07-2018 Seasonal trivalent influenza vaccine, adjuvanted, preservative free Clayton Mcfadden MD Work Phone: [facility] 11-23-2017 influenza, high dose seasonal, preservative-free Clayton Mcfadden MD Work Phone: [facility] 11-23-2017 influenza, injectabl e, quadrivalent, preservative free Clayton Mcfadden MD Work Phone: [facility] 01-31-2017 pneumococcal conjuga te vaccine, 13 valent Clayton Mcfadden MD Work Phone: [facility] 01-19-2017 pneumococcal conjuga te vaccine, 13 valent Clayton Mcfadden MD Work Phone: [facility] 01-17-2017 influenza, high dose seasonal, preservative-free Clayton Mcfadden MD Work Phone: [facility] 01-12-2016 pneumococcal polysaccharide vaccine, 23 valent Clayton Mcfadden MD Work Phone: [facility] 12-16-2015 influenza, high dose seasonal, preservative-free Clayton Mcfadden MD Work Phone: [facility] 01-08-2015 influenza, injectabl e, quadrivalent, preservative free Clayton Mcfadden MD Work Phone: [facility] 01-08-2015 influenza, seasonal, injectable, preservative free Clayton Mcfadden MD Work Phone: [facility] 12-24-2013 zoster vaccine, live Clayton Mcfadden MD Work Phone: [facility] 08-06-2013 pneumococcal polysaccharide vaccine, 23 valent Clayton Mcfadden MD Work Phone: [facility] 12-23-2012 influenza, seasonal, injectable, preservative free Clayton Mcfadden MD Work Phone: [facility] Payers Date Payer Category Payer Unknown [id number] 2022 Unknown [id number] 2022 Unknown AARP AARP [id number] 2022-Present [address] [place] [address] [id number] 2010 Medicare MEDICARE MEDICAR E RAILROAD [id number] 2010-Present [employer] RA[employer]RO[employer] MEDICARE [address] [address] [place] [address] Medicare [id number] 1959 Medicare [id number] [id number] 1959 Self-pay [id number] 1959 Self-pay [id number] 1959 Unknown [id number] 2.16.840.1.860934.19 1940 Unknown [id number] 2.16.840.1.526828.3.579.2.727 1940 Unknown [id number] 2.16.840.1.175287.3.579.2.727 1940 Unknown [id number] 2.16.840.1.815100.3.579.2.732 1940 Unknown [id number] 2.16.840.1.667539.3.579.2.593 1940 Unknown [id number] 2.16.840.1.080442.3.579.2.593 1940 Unknown [id number] 2.16.840.1.802465.3.579.2.593 1940 Unknown [id number] 2.16.840.1.971120.3.579.2.593 1940 Unknown [id number] 2.16.840.1.550756.3.579.2.593 1940 Unknown [id number] 2.16.840.1.129625.3.579.2.593 1940 Unknown [id number] 2.16.840.1.377599.3.579.2.593 1940 Unknown [id number] 2.16.840.1.950222.3.579.2.593 1940 Unknown [id number] 2.16.840.1.175069.3.579.2.593 1940 Unknown [id number] 2.16.840.1.600945.3.579.2.593 1940 Unknown [id number] 2.16.840.1.082718.3.579.2.593 1940 Unknown [id number] 2.16.840.1.150581.3.579.2.593 1940 Unknown [id number] 2.16.840.1.217770.3.579.2.593 1940 Unknown [id number] 2.16.840.1.983576.3.579.2.593 1940 Unknown [id number] 2.16.840.1.244808.3.579.2.593 1940 Unknown [id number] 2.16.840.1.732284.3.579.2.173 1940 Unknown [id number] 2.16.840.1.000263.3.579.2.173 1940 Unknown [id number] 2.16.840.1.368496.3.579.2.173 1940 Unknown [id number] 2.16.840.1.829303.3.579.2.173 1940 Unknown [id number] 2.16.840.1.285347.3.579.2.173 1940 Unknown [id number] 2.16.840.1.656340.3.579.2.173 1940 Unknown [id number] 2.16.840.1.261143.3.579.2.1259 Unknown [id number] 2.16.840.1.007929.3.579.2.531 Social History Date Type Detail Facility Start: 08-12-2022 End: 10-25-2022 Sex Assigned At [facility] Other Start: 05-12-2019 Tobacco smoking status Never smoked tobacco (finding) [facility] Start: 1940 Sex Assigned At Male [facility] Start: 03-01-2022 End: 08-12-2022 Tobacco smoking status NMIS Ex-smoker Fon Phone: End: 02-19-1994 History of tobacco use Current smoker Fon Phone: End: 02-19-1994 History of tobacco use Cigarette Smoker Fon Phone: Start: 03-01-2022 Tobacco use and exposure Smokeless tobacco non-user Fon Phone: Start: 03-01-2022 End: 01-15-2023 Alcohol intake Lifetime non-drinker (finding) Fon Phone: Start: 1940 Sex Assigned At Not on file Fon Phone: Tobacco smoking stat us NMIS Tobacco smoking consumption unknown [facility] Start: 08-12-2022 End: 10-25-2022 History of Social function [facility] Fear of Current or Ex-Partner Not on file [facility] Within the last year , have you been humiliated or emotionally abused in other ways by your partner or ex-partner? No [facility] Do you belong to any clubs or organizations such as temple groups, unions, fraternal or athletic groups, or school groups? Yes [facility] Are you now , , , , never or living with a partner? [facility] Do you feel stress - tense, restless, nervous, or anxious, or unable to sleep at night because your mind is troubled all the time - these days [OSQ] Only a little [facility] (I/We) worried wheth er (my/our) food would run out before (I/we) got money to buy more. DK or Refused [facility] Start: 08-12-2022 Education 13 [facility] Start: 08-12-2022 Tobacco Comment Stop smoking: >30 years. Last smoked: >10 years [facility] Start: 08-12-2022 Alcohol Comment Caffeine intake: 1-2 cups per day [facility] Medical Equipment Procedure Code Equipment Code Equipment Origin al Text Equipment Identifier Dates 1 each by Other route in the morning and 1 each at noon and 1 each in the evening and 1 each before bedtime. Use as instructed 4 times a day. Sliding scale to titrate blood sugars One touch Ultra Blue. [id number] Start: 03-23-2023 End: 06-21-2023 Functional Status Date Assessment Result Facility 11-23-2021 Functional Status N/A [facility] Clinical Notes 08-16-2021 to 01-31-2023 Note Date [...] were answered he understands agrees the plan. [facility] Other 02-16-2023 NoteEXAMINATION: XR CHEST 2 V [...] Electronically authenticated by: ULISSES FRANCO Date: 2022-04-06 08:00[facility]02-09-2023 History of Present illness Narrative* Horace Parra DO - 03/30/2022 10:13 AM EST Images from the original note were not included. EMERGENCY TRIAGE, TREAT AND TRANSPORT (ET3) DOCUMENTATION OF TELEHEALTH VISIT Date / Time: 03/27/20222339 Name: Chema Childs : 1940 SSN: (Not on file) EMS Agency: [facility] [x] Verbal consent obtained [] [...] by: Horace Parra DO documented in this [id number] Evaluation note* Encounter Date Diagnosis Assessment Notes [...] with this plan, and denies any questions. [facility] Other 10-05-2022 Hospital Discharge instructions Patient Education [...] prostate. Follow these instructions at home: Take eofm-saf-vddjkrn and prescription medicines only as told by [...] 02/02/2001 Document Revised: 04/20/2018 Document Reviewed: 10/26/2016 [employer] Patient Education 2020 [employer]. Follow Up Care 11/01/2021 10:45:28 With:MY GALDAMEZ, KONG Brown, URL Address: [address] [place] [place] [address] When:3 months [facility] 06-28-2022 Evaluation note* Encounter Date Diagnosis Assessment Notes Treatment Notes Treatment Clinical Notes Jul, Abdominal aortic aneurysm (AAA) 3.0 cm to 5.5 cm in diameter in male (ICD-10 - I71.4) Jul, Other Aortic ulcer wi th small aneurysm Review of the images today itkocdu-jfsg-ebp ulcer of the infrarenal aorta that does [...] understand and all the questions were answered. [employer] Other Evaluation + Plan note Future Appointments Appointment Date:02/22/2022 01:20:00 PM Scheduled Provider:KONG PEPE PA-C Location:[facility] Appointment Type:URO Office Visit [facility] evaluation noteNo assessment information available [facility] Work Phone: Evaluation note* Diagnosis BPH with obstruction/lower urinary tract symptoms Hypertrophy of prostate with urinary obstruction and other lower urinary tract symptoms (LUTS) Dysuria documented in this encounter [facility] [employer] Work Phone: evallgaehi note* Diagnosis Fall, initial encounter- Primary Shortness of breath Tachycardia Tachycardia, unspecified [facility] Dysuria Frequency of micturition Urinary frequency documented in this encounter [id number] note* Diagnosis Type 2 diabetes mellitus with stage 3a chronic kidney disease, with long-term current use of insulin (HCC) ([facility]) [facility] this [facility] Narrative - Reported* Type Description Date Medical History high cholestrol Medical History high blood pressure Medical History acid reflux Surgical History hemorrhoidectomy Hospitalization History acid reflux - observatio n [employer] Other History general Narrative - Reported* Type Description Date Medical History high cholestrol Medical History high blood pressure Medical History acid reflux Surgical History hemorrhoidectomy Surgical History Laser Surgery on prostate Hospitalization History acid reflux - observatio n [employer] Other Hospital course Narrative No data available for this section [facility] progress note No data available for this section [facility] Summary Purpose Family History No Family History Records FoundNo Family History Records FoundNo Family History Records FoundNo Family History Records FoundNo Family History Records FoundNo Family History Records FoundNo Family History Records Found Advance Directives Advance Directive Response Recorded Date/ Time Advance [...] section and content) DATE CREATED AUTHOR 08/12/2021 [facility] DATE CREATED AUTHOR AUTHOR'S ORGANIZ ATION 03/15/2022 [facility] DATE CREATED AUTHOR AUTHOR'S ORGANIZ ATION 07/01/2022 [facility] DATE CREATED AUTHOR AUTHOR'S ORGANIZ ATION 07/04/2022 [facility] DATE CREATED AUTHOR AUTHOR'S ORGANIZ ATION 12/02/2022 [facility] DATE CREATED AUTHOR AUTHOR'S ORGANIZ ATION 01/15/2023 [facility] EPIC DATE CREATED AUTHOR AUTHOR'S ORGANIZ ATION 02/24/2023 [facility] REASON FOR VISIT (unrecogniz ed section and content) Reason Comments Fall Reason Comments Med Change Request Patient Care team informatio n (unrecognized section and content) Team Status: Active Member Role Status Dates Clayton Mcfadden MD Primary Care Provider Active Team Status: Inactive Member Role Status Dates Clayton Mcfadden MD Primary Care Provider Active IVETTE HsuC Attending Provider Active Team Status: Inactive Member Role Status Dates Clayton Mcfadden MD Primary Care Provider Active Oumar Haynes MD Attending Provider Active [employer]ed [employer] Layout Taper Relationship Specialty Start Date End Date Clayton Mcfadden MD [address] [place] [address] PCP - General 03/01/22 [employer] Taper Relationship Specialty Start Date End Date Clayton Mcfadden MD [address] [place] [address] PCP - General 03/01/22 [employer] Taper Relationship Specialty Start Date End Date Clayton Mcfadden MD [address] [place] [address] PCP - ACO Reach 07/13/22 Clayton Mcfadden MD [address] [place] [address] PCP - General Family Medicine 08/03/22 Briseida Paez, RN Registered Nurse Family Medicine 03/16/23 Goals (unrecognized section and content) Goals may [...] BE BASED ON THE PRIMARY CLINICAL RECORDS. [facility] [facility] provides no warranty or guarantee of the accuracy or completeness of information in this document.
[2023-05-18 11:43] LABS: Anion Gap 14.6; BUN Creatinine Ratio 20.3; Carbon Dioxide 26.6 mmol/L (21.0-32.0); Chloride 104 mmol/L (98-107); Estimated GFR (African America >60 (>=60); Estimated GFR (Non-African Ame 59 (>=60); Glucose 123 mg/dL (74-106); Potassium 4.2 mmol/L (3.5-5.1); Sodium 141 mmol/L (136-145)
[2023-05-18 12:14] LABS: Estimated Average Glucose 137 mg/dL; Glycohemoglobin A1C 6.4 % (4.5-6.2)
[2023-05-22 12:10] LABS: Chol HDL Ratio 3.5; Cholesterol 131 mg/dL (<=200); HDL Cholesterol 37 mg/dL (40-60); Triglycerides 166 mg/dL (<=150); Uric Acid 3.2 mg/dL (3.5-7.2); VLDL CHOLESTEROL 33.2 mg/dL
== END 2023-05-18 11:05 | disposition home or self-care (01) ==
LOC: LAB 11:06
PROVIDERS: PCP Family Medicine; Visit Provider Family Medicine
DX: E11.22 Type 2 diabetes mellitus with diabetic chronic kidney disease (principal); N18.31 Chronic kidney disease, stage 3a; Z79.4 Long term (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 of insulin; E78.2 Mixed hyperlipidemia; E79.0 Hyperuricemia without signs of inflammatory arthritis and tophaceous disease; I12.9 Hypertensive chronic kidney disease with stage 1 through stage 4 chronic kidney disease, or unspecified chronic kidney disease
CPT/HCPCS: 36415; 80048; 80061; 83036; 84550

== ENCOUNTER 2023-10-16 10:31 | Outpatient (OUT) | payer MEDICARE, SELFPAY ==
--- NOTE | 2023-10-16 10:40 | XR_ITS ---
The [address] [address] Patient Name: CHEMA ALTMAN MRN: [id number] date: 1940 Sex: M Assigned Patient Location: LAB Current Patient Location: LAB Accession/Order Number: [id number] Exam Date: 10/16/2023 10:40 Report Date: 10/16/2023 11:41 At the request of: ZOILA JAVED Procedure: XR chest 2V PROCEDURE: XR chest 2V DATE: 10/16/2023 9:40 AM CDT COMPARISONS: Chest CT 09/20/2022 CLINICAL INDICATION: 83 years Male Acute Bronchitis FINDINGS: The cardiomediastinal silhouette and pulmonary vasculature are within normal limits. Coarse increased interstitial markings are again identified consistent with chronic lung changes. Overlying these previously noted right lung changes, there may be some diffuse interstitial infiltrates. Also, some patchy infiltrate appears to have developed at the left lung base. There is some apparent fluid or atelectasis adjacent to the lower fissure on the left, a new finding. There is no evidence of pleural effusion or pneumothorax. XR/XR chest 2V IMPRESSION: 1. Chronic lung changes, stable 2. Possible developing diffuse interstitial infiltrate overlying chronic lung changes 3. Some patchy infiltrative changes and some fluid along the inferior left fissure may be inflammatory. This includes a nodular area near the left costophrenic angle measuring approximately 3.5 cm in greatest dimension. Follow-up radiographs to document resolution of the above-described findings are recommended. Electronically authenticated by: MAYRA BOTELLO Date: 10/16/2023 11:41
[2023-10-16 10:57] LABS: Influenza Virus A Antigen Negative; Influenza Virus B Antigen Negative; Internal Control Within Normal Limits; SARS-CoV-2 Ag NEGATIVE (NEGATIVE)
== END 2023-10-16 10:32 | disposition home or self-care (01) ==
LOC: LAB 10:31
PROVIDERS: PCP Internal Medicine; Visit Provider Internal Medicine
DX: J20.9 Acute bronchitis, unspecified (principal); R91.8 Other nonspecific abnormal finding of lung field
CPT/HCPCS: 71046; 87804; 87811

== ENCOUNTER 2023-11-06 08:42 | Outpatient (OUT) | payer MEDICARE, SELFPAY ==
--- OUTSIDE RECORDS SUMMARY | 2023-11-06 09:02 | XMS_ITS | CCD ---
[facility] Organization [facility] Team Providers Care Technical Sales Support Specialist Name Role Phone Oumar Haynes Unavailable CLAYTON MCFADDEN Primary Care Physician MD Clayton Mcfadden Primary Care Provider [phone] MD Oumar Haynes Attending Provider Clayton Mcfadden MD Primary Care Provider KONG PEPE [...] SOSA ., DR THELMA Brown Admitting Unavailable AVERY, DR ULISSES Ivey Consulting Unavailable SHAIKH Matilde [...] Unavailable MISC, DR WHITMAN Attending Unavailable DONALD .GABRIELA Attending Unavailable HEMEYER ., DR KAPADIA Primary Care Unavailable DONALD .GABRIELA Admitting Unavailable SOSA ., DR THELMA Brown Consulting Unavailable MAXI, DR SUSANA Conn Consulting Unavailabl e ADAMS, BING Consulting Unavailable SISTER, JERALD Consulting Unavailable DONALD ., GABRIELA Consulting Unavailable DIAB ., [place] Consulting Unavailable HEMEYER ., DR KAPADIA Admitting Unavailable HEMEYER ., DR KAPADIA Attending Unavailable HEMEYER ., EDDAYO Primary Care Unavailable HEMEYER ., DR KAPADIA [...] KAPADIA Admitting Unavailable HEMEYER ., DR KAPADIA Admitting Unavailable HEMEYER ., DR KAPADIA Attending Unavailable HEMEYER ., DR KAPADIA Primary Care Unavailable HEMEYER ., DR KAPADIA Consulting Unavailable HEMEYER ., DR KAPADIA Attending Unavailable HEMEYER ., DR KAPADIA Primary Care Unavailable HEMEYER ., DR KAPADIA Consulting Unavailable HEMEYER ., DR CLAYTON Fortune Unavailable HEMEYER ., DR KAPADIA Attending Unavailable [...] HEMEYER ., DR KAPADIA Primary Care Unavailable WILBUR, DR PAULINA Chin Consulting Unavailable SAMSA ., ZOILA Consulting Unavailable Hemeyer Clayton GARCÍA Primary Care Provider [phone] CLAYTON MCFADDEN Primary Care Unavailable SUZY HUNTER Referring Unavailable ERICA VERAS Referring Unavailable HEMECLAYTON SALEH Primary Care Unavailable HEMECLAYTON SALEH Primary Care Unavailable TRISTON GONSALVES Referring Unavailable HEMECLAYTON SALEH Primary Care Unavailable ERICA VERAS Admitting Unavailable ERICA VERAS Attending Unavailable HEMECLAYTON SALEH Primary Care Unavailable TRISTON GONSALVES Referring Unavailable HEMEYERCLAYTON Primary Care Unavailable ERICA VERAS Referring Unavailable MD Clayton Mcfadden Primary Care Provider [phone] SHELBY Duff Attending Provider Horace Jasso Unavailable [phone] 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 Attending Unavailable 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 Admitting Unavailable Clayton Mcfadden Primary Care Unavailable Clayton Mcfadden MD Unavailable Clayton Mcfadden MD Primary Care Provider Briseida Paez RN Unavailable Unavailable CLAYTON MCFADDEN Attending Unavailable CLAYTON MCFADDEN Attending Unavailable Allergies Allergy Classification Reported Allergen(s) Allergy Type Date of Onset Reaction(s) Facility (4 sources) Sulfamethoxazole / Trimethoprim; Translations: [sulfamethoxazole-tr imethoprim] Drug Allergy 3 Weal (disorder), Rash [facility] (2 sources) Tetracycline; Translations: [tetracycline] Drug Allergy Finding reported by subject or history provider (finding) [facility] (3 sources) Erythromycin Drug Allergy 8 Nausea And Vomiting [facility] (3 sources) levoFLOXacin Drug Allergy 3 Diarrhea [facility] Work Phone: (1 source) Sulfamethoxazole / Trimethoprim Drug Allergy [facility] (1 source) metFORMIN Drug Allergy 3 [facility] (1 source) Erythromycin Base Drug Allergy 3 Nausea Only [facility] Medications Current Medications Medication Drug Class(es) Dates Sig (Normalized) Sig (Original) [id number] 200 actuat albuterol 0.09 mg/actuat metered dose [...] with long-term current use of insulin (HCC) ([facility]) Sliding scale 3 times daily with meals; [...] week(s), # 28 tab(s), Refills(s) 0, Pharmacy: [facility]/pharmacy #[id number], 180, cm, 11/23/21 10:01:00 EDT, [...] Start: 11-23-2021 take 1 capsule by mo [facility] once daily levothyroxine 88 mcg (0.088 mg) oral capsule 88 mcg = 1 cap(s), Oral, Daily, # 30 cap(s), Refills(s) 0 Start Date: 11/23/21 Status: [facility] levothyroxine (SYNTHROID) 88 MCG [...] Proton Pump Inhibitor Start: 01-16-20 End: 07-14-19 24 take 1 capsule by mouth before mealtime omeprazole (PriLOSEC) [address] capsule Indications: Gastroesophageal reflux disease without esophagitis Take 1 capsule (40 mg) by mouth in the morning. Take before meals. 90 capsule 1 01/15/2023 07/14/2023 Active Start: 05-12-2019 omeprazole Ora l, Daily, Refills(s) 0 Start Date: 05/12/19 Status: Ordered take 1 capsule by [facility] every twenty-four hours Omeprazole 20 MG 1 capsule Orally Once a day for 30 day(s) Active take 40 mg by mouth once daily O MEPRAZOLE PO Take 40 mg by mouth daily 0 Active Oxygen (1 source) oxygen (O2) gas Inhale 2 L/min at bedtime via nasal canula 0 Active polymyxin b 99519 unt/ml / trimethoprim 1 mg/ml ophthalmic solution (2 sources) Dihydrofolate Reductase Inhibitor Antibacterial, Polymyxin-class Antibacterial Start: 12-08-19 take 1 drop(s) into the eye(s) every four hours trimethoprim-polymyx in b (POLYTRIM) 92857-2.1 UNIT/ML-% ophthalmic solution Apply 1 drop to [...] disease (2 sources) Atherosclerotic heart disease of [place] coronary artery without angina pectoris; Translations: [Coronary [...] 08-03-2022 08-03-2022 Chronic Other aftercare (1 source) detention (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 of aspirin; Translations: [SKILLED NURSING CURRENT USE OF ASPIRIN] Onset: 05-03-2022 Episodic Other aftercare (1 source) Other watermaster (current) drug therapy; Translations: [OTH SKILLED NURSING CURRENT DRUG THERAPY] Onset: 05-03-2022 Episodic Other aftercare (1 source) terminologist (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 of oral hypoglycemic drugs; Translations: [ICU NURSE USE ORAL HYPOGLYCEMIC DX] Onset: 05-03-2022 Episodic [...] Translations: [Dependence on supplemental oxygen] Onset: 04-23-2022 3 Chronic Respiratory failure; insufficiency; arrest (adult) (1 [...] aftercare (1 source) Polypharmacy ; Translations: [Other watermaster (current) drug therapy] Onset: 08-10-2019 09-25-2022 Episodic [...] Range Facility US aortaon 01-31-2023 US aorta [facility] [place] [address] [place] [id number] Ultrasound Report Signed Patient: Chema Childs SR MR#: [id number] : 1940 Acct:[id number] Age/Sex: 82 / M ADM Date: 01/31/23 Loc: [facility] Room: Type: [facility] Attending Dr: 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 PAINT LABORATORY TECHNICIAN-C Ordering Provider: 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 APRN Date [...] Horace Jasso MD01/31/2023 11:09 AM Dictation Location: [place] [address] Tech: Gabriela Lai Transcribed By: [facility] 01/31/23 110 Dictated By: Horace Jasso MD 01/31/231105 Signed By: 01/31/231108 [facility] Cult,Urineon 12-02-2022 Cult,Urine Specimen Description .CLEAN CATCH URINE Culture NO GROWTH Report Status FINAL 12/02/2022 [facility] Comment on above: Performed By: #### U #### [place] [address] Registered Radiographer: Sandip Smith MD [facility] [address] [place] [address] [place] [address] Registered Radiographer: Ulisses Gaines MD OPERATIVE REPORTon 3 OPERATIVE REPORT [address] [place] [address] OPERATIVE REPORT PATIENT NAME: CHEMA CHILDS : 1940 MED REC NO: [id number] ROOM: ACCOUNT NO: [id number] ADMIT DATE: 10/03/2022 PROVIDER: Erica Veras DATE OF PROCEDURE: 10/03/2022 SURGEON: Dr. Erica Veras. [employer] MEMBER: None. PREOPERATIVE DIAGNOSES: 1. BPH with lower urinary tract symptoms. 2. Urinary frequency. 3. Urinary urgency. 4. Urinary weak stream. POSTOPERATIVE DIAGNOSES: 1. BPH with lower urinary tract symptoms. 2. Urinary frequency. 3. Urinary urgency. 4. Urinary weak stream. PROCEDURES PERFORMED: Photoselective vaporization of the prostate with GreenLight laser XPS. ANESTHESIA: General. COMPLICATIONS: None. ESTIMATED BLOOD LOSS: Minimal. SPECIMENS: None. PROSTHESIS: A 22-Croatian Gould catheter. DISPOSITION: Stable. FINDINGS: Trilobar hyperplasia of the prostate. INDICATIONS: This patient is an 82-year-old male with extensive lower urinary tract symptoms, here now for definitive therapy in the form of PVP GreenLight DESCRIPTION OF PROCEDURE: The patient was taken back to the operating room after informed consent including all risks, benefits, and alternatives were obtained. The [facility] was [facility] the operating room table, where he was induced under general anesthesia, and given IV Ancef for preoperative antibiotic prophylaxis. To begin the case, he was prepped and draped in the normal sterile fashion, and placed in the dorsal lithotomy. He had a 24-Croatian sheath with a 30-degree lens passed through [...] then removed the scope and inserted a 22-Croatian three-way Gould catheter and hand irrigated to clear. He was then awoken from general anesthesia, transferred to [facility], and taken to the PACU in satisfactory condition by Nursing and Anesthesia Teams. PLAN: The patient will be discharged home per PACU criterion and follow up with us in cyb-qn-sarpd days for Gould catheter removal. ERICA VERAS /[email or web address] Doc#: [id number] CC: [facility] Cult,Urineon 08-29-2022 Cult,Urine Specimen Description .CLEAN CATCH URINE Culture NO GROWTH Report Status FINAL 08/29/2022 [facility] Comment on above: Performed By: #### U RC #### [address] [id number] Registered Radiographer: Sandip Smith MD [address] [place] [address] Registered Radiographer: Ulisses Gaines MD Urinalysis w/ Microon 2022 Bacteria 1+ Abnormal NONE [facility] Comment on above: Performed By: #### U AMIC #### [address] [place] [address] Registered Radiographer: Ulisses Gaines MD Bilirubin, SemiQt,Ur Negative Normal NEG [facility] Comment on above: Performed By: #### U AMIC #### [address] [place] [address] Registered Radiographer: Ulisses Gaines MD Blood, Urine Negative Normal NEG [facility] Comment on above: Performed By: #### U AMIC #### [address] [place] [address] Registered Radiographer: Ulisses Gaines MD Clarity (U) Clear Normal CLEAR [facility] Comment on above: Performed By: #### U AMIC #### [facility] [address] [place] [address] Dr[address] [place], [place] [id number] Registered Radiographer: Ulisses Gaines MD Color (U) Yellow Normal YEL [facility] Comment on above: Performed By: #### U AMIC #### [facility] [address] [place], [place] [id number] Registered Radiographer: Ulisses Gaines MD Epithelial cells LM Ql (Urine sed) 0 TO 2 Normal 0-5 [facility] Comment on above: Performed By: #### U AMIC #### [facility] [address] [place], [place] [id number] Registered Radiographer: Ulisses Gaines MD Glucose Ql (U) Negative Normal NEG [facility] Comment on above: Performed By: #### U AMIC #### [facility] [address] [place] [address] Dr[place], [place] [id number] Registered Radiographer: Ulisses Gaines MD Ketones Ql (U) Negative Normal NEG [facility] Comment on above: Performed By: #### U AMIC #### [facility] [address] [place] [address] Dr. [place], [place] [id number] Registered Radiographer: Ulisses Gaines MD Leukocyte esterase Test strip Ql (U) Negative Normal NEG [facility] Comment on above: Performed By: #### U AMIC #### [facility] [address] [place] [address] Dr. [place], [place] [id number] Registered Radiographer: Ulisses Gaines MD Nitrite,Ur Negative Normal NEG [facility] Comment on above: Performed By: #### U AMIC #### [facility] [address] [place], [place] [id number] Registered Radiographer: Ulisses Gaines MD PH,Ur 6.0 Normal 5.0-9.0 [facility] Comment on above: Performed By: #### U AMIC #### [facility] [address] [place], [place] [id number] Registered Radiographer: Ulisses Gaines MD Protein Ql (U) Negative Normal NEG [facility] Comment on above: Performed By: #### U AMIC #### [facility] [address] [place] [address] [place] [address] Registered Radiographer: Ulisses Gaines MD Spec. Deming,Ur 1.015 Normal 1.010-1.020 [facility] Comment on above: Performed By: #### U AMIC #### [facility] [address] [place] [address] Dr. [place], [place] [id number] Registered Radiographer: Ulisses Gaines MD Urine RBC's None Normal 0-2 [facility] Comment on above: Performed By: #### U AMIC #### [address] [place], [place] [id number] Registered Radiographer: Ulisses Gaines MD Urine WBC's 0 TO 2 Normal 0-5 [facility] Comment on above: Performed By: #### U AMIC #### [address] [place], [place] [id number] Registered Radiographer: Ulisses Gaines MD Urobilinogen,Ur Normal Normal NORM [facility] Comment on above: Performed By: #### U AMIC #### [facility] [address] [place] [address] Dr. [place], [place] [id number] Registered Radiographer: Ulisses Gaines MD Cult,Urineon 08-10-2022 Cult,Urine Specimen Description .CLEAN CATCH URINE Culture NO GROWTH Report Status FINAL 08/10/2022 Normal [facility] Comment on above: Performed By: #### U RC #### [facility] [address] [place] [address] Registered Radiographer: Sandip Smith MD [facility] [address] [place] [address] [place] [address] Registered Radiographer: Ulisses Gaines MD HEMOGLOBINon 07-03-2022 Hemoglobin (Bld) [Mass/Vol] 13.6 g/dL Critically low 14.0-18.0 [facility] Comment on above: Performed By: #### P OCGLUC #### [facility] [address] [place] [address] CHEST WO CONon [...] PAULINA BOWLES Date: 2022-06-26 16:34 Normal [facility] PULMONARY FUNCTION TESTon PULMONARY FUNCTION TEST PULMONARY [...] oxygen. Clinical correlation is required. Normal [facility] Cult,Urineon 06-15-2022 Cult,Urine Specimen Description .CLEAN CATCH URINE Culture NO GROWTH Report Status FINAL 06/15/2022 Normal [facility] Comment on above: Performed By: #### U RC #### [facility] [address] [place] [address] Registered Radiographer: Sandip Smith MD [facility] [address] [place] [address] Registered Radiographer: Ulisses Gaines MD CBC AUTO DIFFon 04-19-2022 BASO # 0.0 103/ul Normal 0.0-0.1 [facility] Comment on above: Performed By: #### L ACT #### [facility] [address] [place] [address] Dr. Kerrie Stark Basophils/100 WBC (Bld) 0.2 % Normal 0.2-2.0 [facility] Comment on above: Performed By: #### L ACT #### [facility] [address] [place] [address] Dr. Kerrie Stark EO # 0.0 103/ul Normal 0.0-0.7 [facility] Comment on above: Performed By: #### L ACT #### [facility] [address] [place] [address] Dr. Kerrie Stark Eosinophils/100 WBC (Bld) 0.2 % Critically low 0.9-7.0 [facility] Comment on above: Performed By: #### L ACT #### [facility] [address] [place] [address] Dr. Kerrie Stark Erythrocyte distribution width (RBC) [Ratio] 13.3 % Normal 11.0-15.0 [facility] Comment on above: Performed By: #### L ACT #### [facility] [address] [place] [address] [address] Kerrie Stark Hematocrit (Bld) [Volume fraction] 38.8 % Critically low 42.0-54.0 [facility] Comment on above: Performed By: #### L ACT #### [facility] [address] [place] [address] [address] Kerrie Stark Hemoglobin (Bld) [Mass/Vol] 13.1 g/dL Critically low 14.0-18.0 [facility] Comment on above: Performed By: #### L ACT #### [facility] [address] [place] [address] [address] Kerrie Stark IG # 0.35 10e3/ul Critically high 0.00-0.03 [facility] Comment on above: Performed By: #### L ACT #### [facility] [address] [place] [address] Dr. Kerrie Stark IG % 2.6 % Critically high 0.0-0.5 [facility] Comment on above: Performed By: #### L ACT #### [facility] [address] [place] [address] [address] Kerrie Stark LYMPH # 1.3 103/ul Normal 1.2-3.8 [facility] Comment on above: Performed By: #### L ACT #### [facility] [address] [place] [address] Dr. Kerrie Stark Lymphocytes/100 WBC (Bld) 9.7 % Critically low 20.5-60.0 [facility] Comment on above: Performed By: #### L ACT #### [facility] [address] [place] [address] [address] Kerrie Stark MANUAL DIFF REQ NO Normal [facility] Comment on above: Performed By: #### L ACT #### [facility] [address] [place] [address] [address] Kerrie Stark MCH (RBC) [Entitic mass] 32.8 pg Normal 25.9-34.0 [facility] Comment on above: Performed By: #### L ACT #### [facility] [address] [place], [place] [address] Dr. Kerrie Stark MCHC (RBC) [Mass/Vol] 33.8 g/dL Normal 29.9-35.2 [facility] Comment on above: Performed By: #### L ACT #### [facility] [address] [place] [address] Dr. Kerrie Stark MCV (RBC) [Entitic vol] 97.2 fL Critically high 80.0-94.0 [facility] Comment on above: Performed By: #### L ACT #### [facility] [address] [place] [address] Dr. Kerrie Stark MONO # 0.8 103/ul Normal 0.3-0.8 [facility] Comment on above: Performed By: #### L ACT #### [facility] [address] [place] [address] Dr. Kerrie Stark Monocytes/100 WBC (Bld) 5.9 % Normal 1.7-12.0 [facility] Comment on above: Performed By: #### L ACT #### [facility] [address] [place] [address] Dr. Kerrie Stark NEUT # 10.8 103/ul Critically high 1.4-6.5 [facility] Comment on above: Performed By: #### L ACT #### [facility] [address] [place] [address] Dr. Kerrie Stark Neutrophils/100 WBC (Bld) 81.4 % Critically high 43.0-75.0 [facility] Comment on above: Performed By: #### L ACT #### [facility] [address] [place] [address] Dr. Kerrie Stark Platelet mean volume (Bld) [Entitic vol] 10.4 fL Normal 9.5-13.5 [facility] Comment on above: Performed By: #### L ACT #### [facility] [address] [place] [address] Dr. Kerrie Stark PLT 158 103/ul Normal 150-450 [facility] Comment on above: Performed By: #### L ACT #### [facility] [address] [place] [address] Dr. Kerrie Stark RBC 3.99 106/ul Critically low 4.70-6.10 [facility] Comment on above: Performed By: #### L ACT #### [facility] [address] [place] [address] [address] Kerrie Stark WBC 13.2 103/ul Critically high 4.0-11.0 [facility] Comment on above: Performed By: #### L ACT #### [facility] [address] [place] [address] [address] Kerrie Stark GLYCOHEMOGLOBIN A1Con 2022 ADA RECOMMENDATION SEE BELOW Normal [facility] Comment on above: Result Comment: ADA RECOMMENDED LIMIT 4.0 - 6.0 ADA THERAPEUTIC TARGET < 7.0 ACTION SUGGESTED > 7.0 Performed By: #### P OCGLUC #### [facility] [address] [place] [address] Dr. Kerrie Stark Glucose [Mass/Vol] 206 mg/dL Normal [facility] Comment on above: Performed By: #### P OCGLUC #### [facility] [address] [place] [address] Dr. Kerrie Stark HbA1c (Bld) [Mass fraction] 8.8 % Critically high 4.5-6.2 [facility] Comment on above: Performed By: #### P OCGLUC #### [facility] [address] [place] [address] Dr. Kerrie Stark LIPID PROFILEon 04-19-2022 CHOL-HDL RATIO NORM SEE BELOW Normal [facility] Comment on above: Result Comment: 3.3 - 4.4 LOW RISK 4.4 - 7.1 AVERAGE RISK 7.1 - 11.0 MODERATE RISK >11.0 HIGH RISK Performed By: #### D DIM #### [facility] [address] [place] [address] Dr. Kerrie Stark Cholesterol [Mass/Vol] 134 mg/dL Normal <=200 [facility] Comment on above: Performed By: #### D DIM #### [facility] [address] [place] [address] Dr. Kerrie Stark Cholesterol in HDL [Mass/Vol] 46 mg/dL Normal 40-60 [facility] Comment on above: Performed By: #### D DIM #### [facility] [address] [place] [address] [address] Kerrie Stark Cholesterol in LDL [Mass/Vol] 65.8 mg/dL Normal [facility] Comment on above: Performed By: #### D DIM #### [facility] [address] [place] [address] [address] Kerrie Stark Cholesterol.total/Chol esterol in HDL [Mass ratio] 2.9 {ratio} Normal [facility] Comment on above: Performed By: #### D DIM #### [facility] [address] [place] [address] [address] Kerrie Stark HDL NORMAL > or = 60 mg/dl - LOW CARDIOVASCULAR RISK <40 mg/dl - HIGH CARDIOVASCULAR RISK Normal [facility] Comment on above: Performed By: #### D DIM #### [facility] [address] [place] [address] Dr. Kerrie Stark LDL CALC NORMAL SEE BELOW Normal [facility] Comment on above: Result Comment: <100 mg/dl OPTIMAL 100 - 129 mg/dl NEAR OR ABOVE OPTIMAL 130 - 159 mg/dl BORDERLINE HIGH 160 - 189 mg/dl HIGH >190 mg/dl VERY HIGH Performed By: #### D DIM #### [facility] [address] [place] [address] Dr. Kerrie Stark Triglyceride [Mass/Vol] 111 mg/dL Normal <=150 [facility] Comment on above: Performed By: #### D DIM #### [facility] [address] [place] [address] Dr. Kerrie Stark VLDL CALC 22.2 mg/dL Normal [facility] Comment on above: Performed By: #### D DIM #### [facility] [address] [place] [address] Dr. Kerrie Stark PROF 14(COMP METB)on 023 Albumin [Mass/Vol] 2.6 g/dL Critically low 3.4-5.0 [facility] Comment on above: Performed By: #### D DIM #### [facility] [address] [place] [address] Dr. Kerrie Stark Albumin/Globulin [Mass ratio] 0.8 {ratio} Normal [facility] Comment on above: Performed By: #### D DIM #### [facility] [address] [place] [address] Dr. Kerrie Stark ALP [Catalytic activity/Vol] 49 U/L Normal 46-116 [facility] Comment on above: Performed By: #### D DIM #### [facility] [address] [place] [address] Dr. Kerrie Stark ALT [Catalytic activity/Vol] 27 U/L Normal 16-63 [facility] Comment on above: Performed By: #### D DIM #### [facility] [address] [place] [address] Dr. Kerrie Stark Anion gap [Moles/Vol] 12.1 mmol/L Normal [facility] Comment on above: Performed By: #### D DIM #### [facility] [address] [place] [address] Dr. Kerrie Stark AST [Catalytic activity/Vol] 19 U/L Normal 15-37 [facility] Comment on above: Performed By: #### D DIM #### [facility] [address] [place] [address] Dr. Kerrie Stark Bilirubin [Mass/Vol] 0.6 mg/dL Normal 0.2-1.0 [facility] Comment on above: Performed By: #### D DIM #### [facility] [address] [place] [address] Dr. Kerrie Stark Calcium [Mass/Vol] 9.0 mg/dL Normal 8.5-10.1 [facility] Comment on above: Performed By: #### D DIM #### [facility] [address] [place] [address] Dr. Kerrie Stark Chloride [Moles/Vol] 102 mmol/L Normal 98-107 [facility] Comment on above: Performed By: #### D DIM #### [facility] [address] [place] [address] Dr. Kerrie Stark CO2 [Moles/Vol] 27.0 mmol/L Normal 21.0-32.0 [facility] Comment on above: Performed By: #### D DIM #### [facility] [address] [place] [address] Dr. Kerrie Stark Creatinine [Mass/Vol] 0.90 mg/dL Normal 0.70-1.30 [facility] Comment on above: Performed By: #### D DIM #### [facility] [address] [address] [address] Kerrie Stark EGFR-AF LIBERIAN >60 Normal >=60 [facility] Comment on above: Performed By: #### D DIM #### [facility] [address] [place] [address] Dr. Kerrie Stark EGFR-NON AF LIBERIAN >60 Normal >=60 [facility] Comment on above: Performed By: #### D DIM #### [facility] [address] [place] [address] Dr. Kerrie Stark Globulin (S) [Mass/Vol] 3.2 g/dL Normal [facility] Comment on above: Performed By: #### D DIM #### [facility] [address] [place] [address] Dr. Kerrie Stark Glucose [Mass/Vol] 104 mg/dL Normal 74-106 [facility] Comment on above: Performed By: #### D DIM #### [facility] [address] [place] [address] Dr. Kerrie Stark Potassium [Moles/Vol] 4.1 mmol/L Normal 3.5-5.1 [facility] Comment on above: Performed By: #### D DIM #### [facility] [address] [place] [address] Dr. Kerrie Stark Protein [Mass/Vol] 5.8 g/dL Critically low 6.4-8.2 [facility] Comment on above: Performed By: #### D DIM #### [facility] [address] [place] [address] Dr. Kerrie Stark Sodium [Moles/Vol] 137 mmol/L Normal 136-145 [facility] Comment on above: Performed By: #### D DIM #### [facility] [address] [place] [address] Dr. Kerrie Stark Urea nitrogen [Mass/Vol] 31.0 mg/dL Critically high 7.0-18.0 [facility] Comment on above: Performed By: #### D DIM #### [facility] [address] [place] [address] Dr. Kerrie Stark Urea nitrogen/Creatinine [Mass ratio] 34.4 mg/mg Normal [facility] Comment on above: Performed By: #### D DIM #### [facility] [address] [place] [address] Dr. Kerrie Stark TSHon 04-19-2022 TSH 0.699 uIU/mL Normal 0.358-3.740 [facility] Comment on above: Performed By: #### D DIM #### [facility] [address] [place] [address] Dr. Kerrie Stark VITAMIN D 25 OHon 04-19-2022 VIT D 25-OH 53.9 ng/mL Normal [facility] Comment on above: Performed By: #### D DIM #### [facility] [address] [place] [address] Dr. Kerrie Stark VIT D RANGES SEE BELOW Normal [facility] Comment on above: Result Comment: <20 ng/mL Vit D deficient 20 - <30 ng/mL Vit D insufficient 30 - 100 ng/mL Vit D sufficient >100 ng/mL Potential Toxicity Performed By: #### D DIM #### [facility] [address] [place] [address] Dr. Kerrie Stark CBC W MANUAL DIFFon 04-08-19 23 ATYPICAL LYMPH # Normal [facility] Comment on above: Performed By: #### L ACT #### [facility] [address] [place] [address] Dr. Kerrie Stark ATYPICAL LYMPH % Normal [facility] Comment on above: Performed By: #### L ACT #### [facility] [address] [place] [address] Dr. Kerrie Stark BAND # 0.0 103/ul Normal 0.0-0.3 [facility] Comment on above: Performed By: #### L ACT #### [facility] [address] [address] [address] Kerrie Stark BAND % 0 % Normal 0-5 [facility] Comment on above: Performed By: #### L ACT #### [facility] [address] [place] [address] Dr. Kerrie Stark BASOM # 0.00 103/ul Normal 0.00-0.10 [facility] Comment on above: Performed By: #### L ACT #### [facility] [address] [place] [address] Dr. Kerrie Stark BASOM % 0.0 % Critically low 0.2-2.0 [facility] Comment on above: Performed By: #### L ACT #### [facility] [address] [place] [address] Dr. Kerrie Stark BLAST # Normal [facility] Comment on above: Performed By: #### L ACT #### [facility] [address] [place] [address] Dr. Kerrie Stark BLAST % Normal [facility] Comment on above: Performed By: #### L ACT #### [facility] [address] [place] [address] Dr. Kerrie Stark CORRECTED WBC Normal 4.0-11.0 [facility] Comment on above: Performed By: #### L ACT #### [facility] [address] [place] [address] Dr. Kerrie Stark EOS # 0.00 103/ul Normal 0.00-0.70 [facility] Comment on above: Performed By: #### L ACT #### [facility] [address] [place] [address] Dr. Kerrie Stark EOS% 0.0 % Critically low 0.9-7.0 [facility] Comment on above: Performed By: #### L ACT #### [facility] [address] [place] [address] Dr. Kerrie Stark HCT 36.7 % Critically low 42.0-54.0 [facility] Comment on above: Performed By: #### L ACT #### [facility] [address] [address] [address] Kerrie Stark HGB 12.5 g/dl Critically low 14.0-18.0 [facility] Comment on above: Performed By: #### L ACT #### [facility] [address] [address] [address] Kerrie Stark LYMPHM # 0.22 103/ul Critically low 1.20-3.80 [facility] Comment on above: Performed By: #### L ACT #### [facility] [address] [address] [address] Kerrie Stark LYMPHM% 2.0 % Critically low 20.5-60.0 [facility] Comment on above: Performed By: #### L ACT #### [facility] [address] [place] [address] Dr. Kerrie Stark MCH 32.6 pg Normal 25.9-34.0 [facility] Comment on above: Performed By: #### L ACT #### [facility] [address] [place] [address] Dr. Kerrie Stark MCHC 34.1 g/dl Normal 29.9-35.2 [facility] Comment on above: Performed By: #### L ACT #### [facility] [address] [place] [address] Dr. Kerrie Stark MCV 95.8 fL Critically high 80.0-94.0 [facility] Comment on above: Performed By: #### L ACT #### [facility] [address] [place] [address] Dr. Kerrie Stark METAMYELOCYTE # Normal [facility] Comment on above: Performed By: #### L ACT #### [facility] [address] [place] [address] Dr. Kerrie Stark METAMYELOCYTE % Normal [facility] Comment on above: Performed By: #### L ACT #### [facility] [address] [place] [address] Dr. Kerrie Stark MONOM# 0.34 103/ul Normal 0.30-0.80 [facility] Comment on above: Performed By: #### L ACT #### [facility] [address] [address] [address] Kerrie Stark MONOM% 3.0 % Normal 1.7-12.0 [facility] Comment on above: Performed By: #### L ACT #### [facility] [address] [place] [address] Dr. Kerrie Stark MPV 10.9 fL Normal 9.5-13.5 [facility] Comment on above: Performed By: #### L ACT #### [facility] [address] [place] [address] Dr. Kerrie Stark MYELOCYTE # 0.1 103/ul Normal [facility] Comment on above: Performed By: #### L ACT #### [facility] [address] [place] [address] Dr. Kerrie Stark MYELOCYTE % 1 % Normal [facility] Comment on above: Performed By: #### L ACT #### [facility] [address] [place] [address] Dr. Kerrie Stark NRBC Normal [facility] Comment on above: Performed By: #### L ACT #### [facility] [address] [place] [address] Dr. Kerrie Stark PLT 140 103/ul Critically low 150-450 [facility] Comment on above: Performed By: #### L ACT #### [facility] [address] [place] [address] Dr. Kerrie Stark RBC 3.83 106/ul Critically low 4.70-6.10 [facility] Comment on above: Performed By: #### L ACT #### [facility] [address] [address] [address] Kerrie Stark RDW 12.9 % Normal 11.0-15.0 [facility] Comment on above: Performed By: #### L ACT #### [facility] [address] [place] [address] Dr. Kerrie Stark SEG # 10.53 103/ul Critically high 1.40-6.50 [facility] Comment on above: Performed By: #### L ACT #### [facility] [address] [place], [place] [address] Dr. Kerrie Stark SEG % 94.0 % Critically high 43.0-75.0 [facility] Comment on above: Performed By: #### L ACT #### [facility] [address] [place], [place] [address] Dr. Kerrie Stark WBC 11.2 103/ul Critically high 4.0-11.0 [facility] Comment on above: Performed By: #### L ACT #### [facility] [address] [place], [place] [address] Dr. Kerrie Stark Covid-19 PCR ([facility])on 03-22 SARS-CoV-2 (COVID-19) RNA QUE+probe Ql (Unsp spec) Detected Abnormal NOT DETECTED [facility] Comment on above: Result Comment: This test is not yet approved or cleared by the [place] FDA. When there are no FDA-approved or cleared tests available, and other criteria are met, FDA can make tests available under an emergency access mechanism called an Emergency Use Authorization (EUA). The EUA for this test is supported by the [place] of Health and Human Service's declaration that [...] used). Performed By: #### L ACT #### [facility] [address] [place], [place] [address] Dr. Kerrie Stark LACTATE/LACTIC ACIDon 2022 Lactate [Moles/Vol] 1.3 mmol/L Normal 0.4-1.9 [facility] Comment on above: Performed By: #### L ACT #### [facility] [address] [place], [place] [address] Dr. Kerrie Stark POINT OF CARE GLUCOSEon 03-22 Glucose [Mass/Vol] 344 mg/dL Critically high 74-106 [facility] Comment on above: Performed By: #### L ACT #### [facility] [address] [place] [address] Dr. Kerrie Stark Glucose [Mass/Vol] 242 mg/dL Critically high 74-106 [facility] Comment on above: Performed By: #### P OCGLUC #### [facility] [address] [place] [address] Dr. Kerrie Stark PROCALCITONINon 04-08-2022 Procalcitonin 0.06 ng/mL Normal 0.00-0.08 [facility] Comment on above: Result Comment: . A [...] obtained. Performed By: #### D DIM #### [facility] [address] [place] [address] Dr. Kerrie Stark PROF 14(COMP METB)on 023 Albumin [Mass/Vol] 2.0 g/dL Critically low 3.4-5.0 [facility] Comment on above: Performed By: #### P OCGLUC #### [facility] [address] [place] [address] Dr. Kerrie Stark Albumin/Globulin [Mass ratio] 0.5 {ratio} Normal [facility] Comment on above: Performed By: #### P OCGLUC #### [facility] [address] [place] [address] Dr. Kerrie Stark ALP [Catalytic activity/Vol] 61 U/L Normal 46-116 [facility] Comment on above: Performed By: #### P OCGLUC #### [facility] [address] [address] [address] Kerrie Stark ALT [Catalytic activity/Vol] 33 U/L Normal 16-63 [facility] Comment on above: Performed By: #### P OCGLUC #### [facility] [address] [address] [address] Kerrie Stark Anion gap [Moles/Vol] 13.2 mmol/L Normal [facility] Comment on above: Performed By: #### P OCGLUC #### [facility] [address] [address] [address] Kerrie Stark AST [Catalytic activity/Vol] 27 U/L Normal 15-37 [facility] Comment on above: Performed By: #### P OCGLUC #### [facility] [address] [address] [address] Kerrie Stark Bilirubin [Mass/Vol] 0.3 mg/dL Normal 0.2-1.0 [facility] Comment on above: Performed By: #### P OCGLUC #### [facility] [address] [place] [address] Dr. Kerrie Stark Calcium [Mass/Vol] 8.7 mg/dL Normal 8.5-10.1 [facility] Comment on above: Performed By: #### P OCGLUC #### [facility] [address] [address] [address] Kerrie Stark Chloride [Moles/Vol] 102 mmol/L Normal 98-107 [facility] Comment on above: Performed By: #### P OCGLUC #### [facility] [address] [address] [address] Kerrie Stark CO2 [Moles/Vol] 22.0 mmol/L Normal 21.0-32.0 [facility] Comment on above: Performed By: #### P OCGLUC #### [facility] [address] [address] [address] Kerrie Stark Creatinine [Mass/Vol] 0.88 mg/dL Normal 0.70-1.30 [facility] Comment on above: Performed By: #### P OCGLUC #### [facility] [address] [address] [address] Kerrie Stark EGFR-AF LIBERIAN >60 Normal >=60 [facility] Comment on above: Performed By: #### P OCGLUC #### [facility] [address] [address] [address] Kerrie Stark EGFR-NON AF LIBERIAN >60 Normal >=60 [facility] Comment on above: Performed By: #### P OCGLUC #### [facility] [address] [address] [address] Kerrie Stark Globulin (S) [Mass/Vol] 3.7 g/dL Normal [facility] Comment on above: Performed By: #### P OCGLUC #### [facility] [address] [address] [address] Kerrie Stark Glucose [Mass/Vol] 266 mg/dL Critically high 74-[address] [facility] Comment on above: Performed By: #### P OCGLUC #### [facility] [address] [address] [address] Kerrie Stark Potassium [Moles/Vol] 4.2 mmol/L Normal 3.5-5.1 [facility] Comment on above: Performed By: #### P OCGLUC #### [facility] [address] [address] [address] Kerrie Stark Protein [Mass/Vol] 5.7 g/dL Critically low 6.4-8.2 [facility] Comment on above: Performed By: #### P OCGLUC #### [facility] [address] [address] [address] Kerrie Stark Sodium [Moles/Vol] 133 mmol/L Critically low 136-145 [facility] Comment on above: Performed By: #### P OCGLUC #### [facility] [address] [address] [address] Kerrie Stark Urea nitrogen [Mass/Vol] 21.0 mg/dL Critically high 7.0-18.0 [facility] Comment on above: Performed By: #### P OCGLUC #### [facility] [address] [address] [address] Kerrie Stark Urea nitrogen/Creatinine [Mass ratio] 23.9 mg/mg Normal [facility] Comment on above: Performed By: #### P OCGLUC #### [facility] [address] [place] [address] Dr. Kerrie Stark CBC W MANUAL DIFFon 04-07-19 23 ATYPICAL LYMPH # 0.14 103/ul Normal [facility] Comment on above: Performed By: #### L ACT #### [facility] [address] [place] [address] Dr. Kerrie Stark ATYPICAL LYMPH % 1 % Normal [facility] Comment on above: Performed By: #### L ACT #### [facility] [address] [place] [address] Dr. Kerrie Stark BAND # 0.0 103/ul Normal 0.0-0.3 [facility] Comment on above: Performed By: #### L ACT #### [facility] [address] [place] [address] Dr. Kerrie Stark BAND % 0 % Normal 0-5 [facility] Comment on above: Performed By: #### L ACT #### [facility] [address] [place] [address] Dr. Kerrie Stark BASOM # 0.00 103/ul Normal 0.00-0.10 [facility] Comment on above: Performed By: #### L ACT #### [facility] [address] [place] [address] Dr. Kerrie Stark BASOM % 0.0 % Critically low 0.2-2.0 [facility] Comment on above: Performed By: #### L ACT #### [facility] [address] [place] [address] Dr. Kerrie Stark BLAST # Normal [facility] Comment on above: Performed By: #### L ACT #### [facility] [address] [place] [address] Dr. Kerrie Stark BLAST % Normal [facility] Comment on above: Performed By: #### L ACT #### [facility] [address] [address] [address] Kerrie Stark CORRECTED WBC Normal 4.0-11.0 [facility] Comment on above: Performed By: #### L ACT #### [facility] [address] [address] [address] Kerrie Stark EOS # 0.00 103/ul Normal 0.00-0.70 [facility] Comment on above: Performed By: #### L ACT #### [facility] [address] [address] [address] Kerrie Stark EOS% 0.0 % Critically low 0.9-7.0 [facility] Comment on above: Performed By: #### L ACT #### [facility] [address] [place] [address] Dr. Kerrie Stark HCT 35.9 % Critically low 42.0-54.0 [facility] Comment on above: Performed By: #### L ACT #### [facility] [address] [place] [address] Dr. Kerrie Stark HGB 12.0 g/dl Critically low 14.0-18.0 [facility] Comment on above: Performed By: #### L ACT #### [facility] [address] [place] [address] Dr. Kerrie Stark LYMPHM # 0.28 103/ul Critically low 1.20-3.80 [facility] Comment on above: Performed By: #### L ACT #### [facility] [address] [address] [address] Kerrie Stark LYMPHM% 2.0 % Critically low 20.5-60.0 [facility] Comment on above: Performed By: #### L ACT #### [facility] [address] [place] [address] Dr. Kerrie Stark MCH 32.6 pg Normal 25.9-34.0 [facility] Comment on above: Performed By: #### L ACT #### [facility] [address] [place] [address] Dr. Kerrie Stark MCHC 33.4 g/dl Normal 29.9-35.2 [facility] Comment on above: Performed By: #### L ACT #### [facility] [address] [place] [address] Dr. Kerrie Stark MCV 97.6 fL Critically high 80.0-94.0 [facility] Comment on above: Performed By: #### L ACT #### [facility] [address] [place] [address] Dr. Kerrie Stark METAMYELOCYTE # Normal [facility] Comment on above: Performed By: #### L ACT #### [facility] [address] [place] [address] Dr. Kerrie Stark METAMYELOCYTE % Normal [facility] Comment on above: Performed By: #### L ACT #### [facility] [address] [place] [address] Dr. Kerrie Stark MONOM# 0.00 103/ul Critically low 0.30-0.80 [facility] Comment on above: Performed By: #### L ACT #### [facility] [address] [place] [address] Dr. Kerrie Stark MONOM% 0.0 % Critically low 1.7-12.0 [facility] Comment on above: Performed By: #### L ACT #### [facility] [address] [place] [address] Dr. Kerrie Stark MPV 10.6 fL Normal 9.5-13.5 [facility] Comment on above: Performed By: #### L ACT #### [facility] [address] [place] [address] Dr. Kerrie Stark MYELOCYTE # Normal [facility] Comment on above: Performed By: #### L ACT #### [facility] [address] [place] [address] Dr. Kerrie Stark MYELOCYTE % Normal [facility] Comment on above: Performed By: #### L ACT #### [facility] [address] [place] [address] Dr. Kerrie Stark NRBC Normal [facility] Comment on above: Performed By: #### L ACT #### [facility] [address] [address] [address] Kerrie Stark PLT 125 103/ul Critically low 150-450 [facility] Comment on above: Performed By: #### L ACT #### [facility] [address] [address] [address] Kerrie Stark RBC 3.68 106/ul Critically low 4.70-6.10 [facility] Comment on above: Performed By: #### L ACT #### [facility] [address] [address] [address] Kerrie Stark RDW 13.2 % Normal 11.0-15.0 [facility] Comment on above: Performed By: #### L ACT #### [facility] [address] [place] [address] Dr. Kerrie Stark SEG # 13.77 103/ul Critically high 1.40-6.50 [facility] Comment on above: Performed By: #### L ACT #### [facility] [address] [place] [address] Dr. Kerrie Stark SEG % 97.0 % Critically high 43.0-75.0 [facility] Comment on above: Performed By: #### L ACT #### [facility] [address] [address] [address] Kerrie Stark TOXIC GRANULATION 2+ Normal [facility] Comment on above: Performed By: #### L ACT #### [facility] [address] [address] [address] Kerrie Stark WBC 14.2 103/ul Critically high 4.0-11.0 [facility] Comment on above: Performed By: #### L ACT #### [facility] [address] [place] [address] Dr. Kerrie Stark [facility] SARS-CoV-2 (COVID-19) RNA QUE+probe Ql (Unsp spec) Detected Abnormal NOT DETECTED [facility] Comment on above: Result Comment: This test is not yet approved or cleared by the [place] FDA. When there are no FDA-approved or cleared tests available, and other criteria are met, FDA can make tests available under an emergency access mechanism called an Emergency Use Authorization (EUA). The EUA for this test is supported by the [place] of Health and Human Service's declaration that [...] used). Performed By: #### L ACT #### [facility] [address] [place] [address] Dr. Kerrie Stark LACTATE/LACTIC ACIDon 2022 Lactate [Moles/Vol] 1.1 mmol/L Normal 0.4-1.9 [facility] Comment on above: Performed By: #### P OCGLUC #### [facility] [address] [place] [address] Dr. Kerrie Stark POINT OF CARE GLUCOSEon 03-22 Glucose [Mass/Vol] 316 mg/dL Critically high -106 [facility] Comment on above: Performed By: #### P OCGLUC #### [facility] [address] [place] [address] Dr. Kerrie Stark Glucose [Mass/Vol] 182 mg/dL Critically high -106 [facility] Comment on above: Performed By: #### P OCGLUC #### [facility] [address] [place] [address] Dr. Kerrie Stark Glucose [Mass/Vol] 318 mg/dL Critically high -106 [facility] Comment on above: Performed By: #### P OCGLUC #### [facility] [address] [place] [address] Dr. Kerrie Stark PROF 14(COMP METB)on 023 Albumin [Mass/Vol] 1.9 g/dL Critically low 3.4-5.0 [facility] Comment on above: Performed By: #### P OCGLUC #### [facility] Laboratory [address] [address] [address] Kerrie Stark Albumin/Globulin [Mass ratio] 0.5 {ratio} Normal [facility] Comment on above: Performed By: #### P OCGLUC #### [facility] [address] [address] [address] Kerrie Stark ALP [Catalytic activity/Vol] 50 U/L Normal 46-116 [facility] Comment on above: Performed By: #### P OCGLUC #### [facility] [address] [address] [address] Kerrie Stark ALT [Catalytic activity/Vol] 24 U/L Normal 16-63 [facility] Comment on above: Performed By: #### P OCGLUC #### [facility] [address] [place] [address] Dr. Kerrie Stark Anion gap [Moles/Vol] 12.9 mmol/L Normal [facility] Comment on above: Performed By: #### P OCGLUC #### [facility] [address] [place] [address] Dr. Kerrie Stark AST [Catalytic activity/Vol] 19 U/L Normal 15-37 [facility] Comment on above: Performed By: #### P OCGLUC #### [facility] [address] [place] [address] Dr. Kerrie Stark Bilirubin [Mass/Vol] 0.3 mg/dL Normal 0.2-1.0 [facility] Comment on above: Performed By: #### P OCGLUC #### [facility] [address] [address] [address] Kerrie Stark Calcium [Mass/Vol] 8.5 mg/dL Normal 8.5-10.1 [facility] Comment on above: Performed By: #### P OCGLUC #### [facility] [address] [address] [address] Kerrie Stark Chloride [Moles/Vol] 103 mmol/L Normal 98-107 [facility] Comment on above: Performed By: #### P OCGLUC #### [facility] [address] [place] [address] Dr. Kerrie Stark CO2 [Moles/Vol] 22.2 mmol/L Normal 21.0-32.0 [facility] Comment on above: Performed By: #### P OCGLUC #### [facility] [address] [address] [address] Kerrie Stark Creatinine [Mass/Vol] 1.17 mg/dL Normal 0.70-1.30 [facility] Comment on above: Performed By: #### P OCGLUC #### [facility] [address] [address] [address] Kerrie Stark EGFR-AF LIBERIAN >60 Normal >=60 [facility] Comment on above: Performed By: #### P OCGLUC #### [facility] [address] [address] [address] Kerrie Stark EGFR-NON AF LIBERIAN 60 mL/min/1.73m2 Normal >=60 [facility] Comment on above: Performed By: #### P OCGLUC #### [facility] [address] [address] [address] Kerrie Stark Globulin (S) [Mass/Vol] 3.8 g/dL Normal [facility] Comment on above: Performed By: #### P OCGLUC #### [facility] [address] [address] [address] Kerrie Stark Glucose [Mass/Vol] 283 mg/dL Critically high 74-[address] [facility] Comment on above: Performed By: #### P OCGLUC #### [facility] [address] [address] [address] Kerrie Stark Potassium [Moles/Vol] 4.1 mmol/L Normal 3.5-5.1 [facility] Comment on above: Performed By: #### P OCGLUC #### [facility] [address] [address] [address] Kerrie Stark Protein [Mass/Vol] 5.7 g/dL Critically low 6.4-8.2 [facility] Comment on above: Performed By: #### P OCGLUC #### [facility] [address] [address] [address] Kerrie Stark Sodium [Moles/Vol] 134 mmol/L Critically low 136-145 Th [facility] Comment on above: Performed By: #### P OCGLUC #### [facility] [address] [place] [address] Dr. Kerrie Stark Urea nitrogen [Mass/Vol] 23.0 mg/dL Critically high 7.0-18.0 [facility] Comment on above: Performed By: #### P OCGLUC #### [facility] [address] [place] [address] Dr. Kerrie Stark Urea nitrogen/Creatinine [Mass ratio] 19.7 mg/mg Normal [facility] Comment on above: Performed By: #### P OCGLUC #### [facility] [address] [place] [address] Dr. Kerrie Stark CULTURE SPUTUMon 04-06-2022 CULTURE SPUTUM Isolate 1 Grace albicans Light growth of Normal [facility] Comment on above: Performed By: #### S PUTCX #### [facility] [address] [place] [address] Dr. Kerrie Stark CULTURE URINEon 04-06-2022 CULTURE URINE Culture Observations: NO GROWTH. Normal [facility] Comment on above: Performed By: #### U RCX #### [facility] [address] [place] [address] Dr. Kerrie Stark ER URINE PROFILEon 3 Bilirubin Ql (U) Negative Normal NEGATIVE [facility] Comment on above: Performed By: #### P OCGLUC #### [facility] [address] [place] [address] Dr. Kerrie Stark Clarity (U) CLEAR Normal CLEAR [facility] Comment on above: Performed By: #### P OCGLUC #### [facility] [address] [place] [address] Dr. Kerrie Stark Color (U) YELLOW Normal YELLOW [facility] Comment on above: Performed By: #### P OCGLUC #### [facility] [address] [place] [address] Dr. Kerrie Stark ERUAHD A micrscopic examination will be performed if indicated. Normal [facility] Comment on above: Performed By: #### P OCGLUC #### [facility] [address] [address] [address] Kerrie Stark Glucose Ql (U) Negative Normal NEGATIVE [facility] Comment on above: Performed By: #### P OCGLUC #### [facility] [address] [address] [address] Kerrie Stark Hemoglobin Ql (U) Negative Normal NEGATIVE [facility] Comment on above: Performed By: #### P OCGLUC #### [facility] [address] [address] [address] Kerrie Stark Ketones Ql (U) Negative Normal NEGATIVE [facility] Comment on above: Performed By: #### P OCGLUC #### [facility] [address] [address] [address] Kerrie Stark LEUKOCYTES Negative Normal NEGATIVE [facility] Comment on above: Performed By: #### P OCGLUC #### [facility] [address] [address] [address] Kerrie Stark Nitrite Ql (U) Negative Normal NEGATIVE [facility] Comment on above: Performed By: #### P OCGLUC #### [facility] [address] [address] [address] Kerrie Stark pH (U) 6.0 [pH] Normal 5-9 [facility] Comment on above: Performed By: #### P OCGLUC #### [facility] [address] [address] [address] Kerrie Stark Protein (U) [Mass/Vol] 30 mg/dL Abnormal NEGAT LITTLE/ TRACE [facility] Comment on above: Performed By: #### P OCGLUC #### [facility] [address] [address] [address] Kerrie Stark SPEC GRAVITY 1.015 Normal 1.005-<=1.025 [facility] Comment on above: Performed By: #### P OCGLUC #### [facility] [address] [place] [address] Dr. Kerrie Stark UR MICRO IND INDICATED Normal [facility] Comment on above: Performed By: #### P OCGLUC #### [facility] [address] [address] [address] Kerrie Stark Urobilinogen Qn (U) 0.2 {Ricky'U}/dL Normal 0.2 - 1. 0 [facility] Comment on above: Performed By: #### P OCGLUC #### [facility] [address] [address] [address] Kerrie Stark POINT OF CARE GLUCOSEon 03-22 Glucose [Mass/Vol] 301 mg/dL Critically high [address] [place] [address] Comment on above: Performed By: #### P OCGLUC #### [facility] [address] [address] [address] Kerrie Stark Glucose [Mass/Vol] 272 mg/dL Critically high [address] [place] [address] Comment on above: Performed By: #### P OCGLUC #### [facility] [address] [address] [address] Kerrie Stark Glucose [Mass/Vol] 191 mg/dL Critically high [address] [place] [address] Comment on above: Performed By: #### P OCGLUC #### [facility] [address] [address] [address] Kerrie Stark Glucose [Mass/Vol] 164 mg/dL Critically high [address] [place] [address] Comment on above: Performed By: #### C BC #### [facility] [address] [address] [address] Kerrie Stark Glucose [Mass/Vol] 128 mg/dL Critically high [address] [place] [address] Comment on above: Performed By: #### P OCGLUC #### [facility] [address] [address] [address] Kerrie Stark URINE MICROSCOPIC ONLYon BACTERIA SMALL Abnormal NONE SEEN [facility] Comment on above: Performed By: #### P OCGLUC #### [facility] [address] [address] [address] Kerrie Stark Bacteria identified Cx Nom (U) INDICATED Normal [facility] Comment on above: Performed By: #### P OCGLUC #### [facility] [address] [place] [address] Dr. Kerrie Stark CAST SEEN Abnormal NONE SEEN [facility] Comment on above: Performed By: #### P OCGLUC #### [facility] [address] [place] [address] Dr. Kerrie Stark Crystals LM Nom (Urine sed) NONE SEEN Normal NONE SEEN [facility] Comment on above: Performed By: #### P OCGLUC #### [facility] [address] [address] [address] Kerrie Stark Epithelial cells LM Ql (Urine sed) RARE Normal NONE SEEN /RARE [facility] Comment on above: Performed By: #### P OCGLUC #### [facility] [address] [place] [address] Dr. Kerrie Stark HYALINE CAST RARE Normal [facility] Comment on above: Performed By: #### P OCGLUC #### [facility] [address] [place] [address] Dr. Kerrie Stark MUCOUS TRACE Abnormal NONE SEEN [facility] Comment on above: Performed By: #### P OCGLUC #### [facility] [address] [place] [address] Dr. Kerrie Stark RBC 0-2 Normal 0-2 [facility] Comment on above: Performed By: #### P OCGLUC #### [facility] [address] [place] [address] Dr. Kerrie Stark WBC 0-2 Abnormal NONE SEEN [facility] Comment on above: Performed By: #### P OCGLUC #### [facility] [address] [place] [address] Dr. Kerrie Stark BNPon 04-05-2022 Natriuretic peptide B (Bld) [Mass/Vol] 394.0 pg/mL Normal <=1,800.0 [facility] Comment on above: Performed By: #### C BC #### [facility] [address] [place] [address] Dr. Kerrie Stark CBC W MANUAL DIFFon 04-05-19 23 ATYPICAL LYMPH # Normal [facility] Comment on above: Performed By: #### P OCGLUC #### [facility] [address] [address] [address] Kerrie Stark ATYPICAL LYMPH % Normal [facility] Comment on above: Performed By: #### P OCGLUC #### [facility] [address] [address] [address] Kerrie Stark BAND # Normal 0.0-0.3 [facility] Comment on above: Performed By: #### P OCGLUC #### [facility] [address] [place] [address] Dr. Kerrie Stark BAND % Normal 0-5 [facility] Comment on above: Performed By: #### P OCGLUC #### [facility] [address] [place] [address] Dr. Kerrie Stark BASOM # 0.00 103/ul Normal 0.00-0.10 [facility] Comment on above: Performed By: #### P OCGLUC #### [facility] [address] [place] [address] Dr. Kerrie Stark BASOM % 0.0 % Critically low 0.2-2.0 [facility] Comment on above: Performed By: #### P OCGLUC #### [facility] [address] [place] [address] Dr. Kerrie Stark BLAST # Normal [facility] Comment on above: Performed By: #### P OCGLUC #### [facility] [address] [place] [address] Dr. Kerrie Stark BLAST % Normal [facility] Comment on above: Performed By: #### P OCGLUC #### [facility] [address] [place] [address] Dr. Kerrie Stark CORRECTED WBC Normal 4.0-11.0 [facility] Comment on above: Performed By: #### P OCGLUC #### [facility] [address] [place] [address] Dr. Kerrie Stark EOS # 0.00 103/ul Normal 0.00-0.70 [facility] Comment on above: Performed By: #### P OCGLUC #### [facility] [address] [place] [address] Dr. Kerrie Stark EOS% 0.0 % Critically low 0.9-7.0 [facility] Comment on above: Performed By: #### P OCGLUC #### [facility] [address] [place] [address] Dr. Kerrie Stark HCT 43.5 % Normal 42.0-54.0 [facility] Comment on above: Performed By: #### P OCGLUC #### [facility] [address] [place] [address] Dr. Kerrie Stark HGB 14.7 g/dl Normal 14.0-18.0 [facility] Comment on above: Performed By: #### P OCGLUC #### [facility] [address] [place] [address] Dr. Kerrie Stark LYMPHM # 0.78 103/ul Critically low 1.20-3.80 [facility] Comment on above: Performed By: #### P OCGLUC #### [facility] [address] [place] [address] Dr. Kerrie Stark LYMPHM% 4.0 % Critically low 20.5-60.0 [facility] Comment on above: Performed By: #### P OCGLUC #### [facility] [address] [place] [address] Dr. Kerrie Stark MCH 32.5 pg Normal 25.9-34.0 [facility] Comment on above: Performed By: #### P OCGLUC #### [facility] [address] [place] [address] Dr. Kerrie Stark MCHC 33.8 g/dl Normal 29.9-35.2 [facility] Comment on above: Performed By: #### P OCGLUC #### [facility] [address] [address] [address] Kerrie Stark MCV 96.2 fL Critically high 80.0-94.0 [facility] Comment on above: Performed By: #### P OCGLUC #### [facility] [address] [place] [address] Dr. Kerrie Stark METAMYELOCYTE # Normal [facility] Comment on above: Performed By: #### P OCGLUC #### [facility] [address] [address] [address] Kerrie Stark METAMYELOCYTE % Normal [facility] Comment on above: Performed By: #### P OCGLUC #### [facility] [address] [address] [address] Kerrie Stark MONOM# 0.58 103/ul Normal 0.30-0.80 [facility] Comment on above: Performed By: #### P OCGLUC #### [facility] [address] [address] [address] Kerrie Stark MONOM% 3.0 % Normal 1.7-12.0 [facility] Comment on above: Performed By: #### P OCGLUC #### [facility] [address] [place] [address] Dr. Kerrie Stark MPV 10.1 fL Normal 9.5-13.5 [facility] Comment on above: Performed By: #### P OCGLUC #### [facility] [address] [place] [address] Dr. Kerrie Stark MYELOCYTE # Normal [facility] Comment on above: Performed By: #### P OCGLUC #### [facility] [address] [address] [address] Kerrie Stark MYELOCYTE % Normal [facility] Comment on above: Performed By: #### P OCGLUC #### [facility] [address] [address] [address] Kerrie Stark NRBC Normal [facility] Comment on above: Performed By: #### P OCGLUC #### [facility] [address] [address] [address] Kerrie Stark PLT 181 103/ul Normal 150-450 [facility] Comment on above: Performed By: #### P OCGLUC #### [facility] [address] [place] [address] Dr. Kerrie Stark RBC 4.52 106/ul Critically low 4.70-6.10 [facility] Comment on above: Performed By: #### P OCGLUC #### [facility] [address] [address] [address] Kerrie Stark RDW 12.9 % Normal 11.0-15.0 [facility] Comment on above: Performed By: #### P OCGLUC #### [facility] [address] [id number] Kerrie Stark SEG # 18.14 103/ul Critically high 1.40-6.50 [facility] Comment on above: Performed By: #### P OCGLUC #### [facility] [address] [id number] Kerrie Stark SEG % 93.0 % Critically high 43.0-75.0 [facility] Comment on above: Performed By: #### P OCGLUC #### [facility] [address] [address] [address] Kerrie Stark WBC 19.5 103/ul Critically high 4.0-11.0 [facility] Comment on above: Performed By: #### P OCGLUC #### [facility] [address] [address] [address] Kerrie Stark CTA CHEST WO W [...] BING [place]AMS Date: 2022-04-05 20:31 Normal [facility] CULTURE BLOODon 04-05-2022 Microscopic examination of blood, culture Culture Observations: NO GROWTH AT 5 DAYS. Normal [facility] Comment on above: Performed By: #### C BC #### [facility] [address] [place] [address] Dr. Kerrie Stark Microscopic examination of blood, culture Culture Observations: NO GROWTH AT 5 DAYS. Normal [facility] Comment on above: Performed By: #### B [id number] #### [facility] [address] [place] [address] Dr. Kerrie Stark LACTATE/LACTIC ACIDon 2022 Lactate [Moles/Vol] 2.7 mmol/L Critically high 0.4-1.9 [facility] Comment on above: Performed By: #### P OCGLUC #### [facility] [address] [place] [address] Dr. Kerrie Stark Lactate [Moles/Vol] 3.2 mmol/L Critically high 0.4-1.9 [facility] Comment on above: Performed By: #### D DIM #### [facility] [address] [place] [address] Dr. Kerrie Stark PH VENOUS BLOODon 04-05-2022 PCO2 VENOUS 42.3 mmHg Normal 40.0-52.0 [facility] Comment on above: Performed By: #### P OCGLUC #### [facility] [address] [place] [address] Dr. Kerrie Stark pH VENOUS 7.400 Normal 7.330-7.430 [facility] Comment on above: Performed By: #### P OCGLUC #### [facility] [address] [place] [address] Dr. Kerrie Stark PROF 14(COMP METB)on 023 Albumin [Mass/Vol] 3.0 g/dL Critically low 3.4-5.0 [facility] Comment on above: Performed By: #### C BC #### [facility] [address] [place] [address] Dr. Kerrie Stark Albumin/Globulin [Mass ratio] 0.7 {ratio} Normal [facility] Comment on above: Performed By: #### C BC #### [facility] [address] [place] [address] Dr. Kerrie Stark ALP [Catalytic activity/Vol] 68 U/L Normal 46-116 [facility] Comment on above: Performed By: #### C BC #### [facility] [address] [place] [address] Dr. Kerrie Stark ALT [Catalytic activity/Vol] 29 U/L Normal 16-63 [facility] Comment on above: Performed By: #### C BC #### [facility] [address] [place] [address] Dr. Kerrie Stark Anion gap [Moles/Vol] 12.3 mmol/L Normal [facility] Comment on above: Performed By: #### C BC #### [facility] [address] [place] [address] Dr. Kerrie Stark AST [Catalytic activity/Vol] 19 U/L Normal 15-37 [facility] Comment on above: Performed By: #### C BC #### [facility] [address] [place] [address] Dr. Kerrie Stark Bilirubin [Mass/Vol] 0.7 mg/dL Normal 0.2-1.0 [facility] Comment on above: Performed By: #### C BC #### [facility] [address] [place] [address] Dr. Kerrie Stark Calcium [Mass/Vol] 10.0 mg/dL Normal 8.5-10.1 [facility] Comment on above: Performed By: #### C BC #### [facility] [address] [place] [address] Dr. Kerrie Stark Chloride [Moles/Vol] 96 mmol/L Critically low 98-107 [facility] Comment on above: Performed By: #### C BC #### [facility] [address] [place] [address] Dr. Kerrie Stark CO2 [Moles/Vol] 27.7 mmol/L Normal 21.0-32.0 [facility] Comment on above: Performed By: #### C BC #### [facility] [address] [place] [address] Dr. Kerrie Stark Creatinine [Mass/Vol] 1.18 mg/dL Normal 0.70-1.30 [facility] Comment on above: Performed By: #### C BC #### [facility] [address] [place] [address] Dr. Kerrie Stark EGFR-AF LIBERIAN >60 Normal >=60 [facility] Comment on above: Performed By: #### C BC #### [facility] [address] [place] [address] Dr. Kerrie Stark EGFR-NON AF LIBERIAN 59 mL/min/1.73m2 Critically low >=60 [facility] Comment on above: Performed By: #### C BC #### [facility] [address] [place] [address] Dr. Kerrie Stark Globulin (S) [Mass/Vol] 4.5 g/dL Normal [facility] Comment on above: Performed By: #### C BC #### [facility] [address] [place] [address] Dr. Kerrie Stark Glucose [Mass/Vol] 189 mg/dL Critically high 74-106 [facility] Comment on above: Performed By: #### C BC #### [facility] [address] [place] [address] Dr. Kerrie Stark Potassium [Moles/Vol] 4.0 mmol/L Normal 3.5-5.1 [facility] Comment on above: Performed By: #### C BC #### [facility] [address] [place] [address] Dr. Kerrie Stark Protein [Mass/Vol] 7.5 g/dL Normal 6.4-8.2 [facility] Comment on above: Performed By: #### C BC #### [facility] [address] [place] [address] Dr. Kerrie Stark Sodium [Moles/Vol] 132 mmol/L Critically low 136-145 [facility] Comment on above: Performed By: #### C BC #### [facility] [address] [place] [address] Dr. Kerrie Stark Urea nitrogen [Mass/Vol] 34.0 mg/dL Critically high 7.0-18.0 [facility] Comment on above: Performed By: #### C BC #### [facility] [address] [place] [address] Dr. Kerrie Stark Urea nitrogen/Creatinine [Mass ratio] 28.8 mg/mg Normal [facility] Comment on above: Performed By: #### C BC #### [facility] [address] [place] [address] Dr. Kerrie Stark PROTIMEon 04-05-2022 INR Coag (PPP) [Relative time] 1.00 {INR} Normal [facility] Comment on above: Performed By: #### P OCGLUC #### [facility] [address] [place] [address] Dr. Kerrie Stark INR GUIDELINES SEE BELOW Normal [facility] Comment on above: Result Comment: TOBY RED INR: 2.0 - 3.0 CONDITIONS NOT LISTED BELOW 2.5 - 3.5 FOR PROSTHETIC HEART VALVE REPLACEMENT 2.5 - 3.5 RECURRENT THROMBOSIS Performed By: #### P OCGLUC #### [facility] [address] [place] [address] Dr. Kerrie Stark PT Coag (PPP) [Time] 10.6 s Normal 9.0-11.6 [facility] Comment on above: Performed By: #### P OCGLUC #### [facility] [address] [place] [address] Dr. Kerrie Stark PTTon 04-05-2022 aPTT Coag (Bld) [Time] 28.5 s Normal 22.3-36.2 [facility] Comment on above: Performed By: #### P OCGLUC #### [facility] [address] [place] [address] Dr. Kerrie Stark RESPIRATORY PANEL PLUSon Adenovirus Not detected Normal NOT DETECTED [facility] Comment on above: Performed By: #### L ACT #### [facility] [address] [place] [address] Dr. Kerrie Nayak. Parapertusis Not detected Normal NOT DETECTED [facility] Comment on above: Performed By: #### L ACT #### [facility] [address] [place] [address] Dr. Kerrie Nayak. Pertussis Not detected Normal NOT DETECTED [facility] Comment on above: Performed By: #### L ACT #### [facility] [address] [place] [address] Dr. Kerrie Stark Chlamydia Pneumoniae Not detected Normal NOT DETECTED [facility] Comment on above: Performed By: #### L ACT #### [facility] [address] [place] [address] Dr. Kerrie Stark Coronavirus 229E Not detected Normal NOT DETECTED [facility] Comment on above: Performed By: #### L ACT #### [facility] [address] [place] [address] Dr. Kerrie Stark Coronavirus HKU1 Not detected Normal NOT DETECTED [facility] Comment on above: Performed By: #### L ACT #### [facility] [address] [place] [address] Dr. Kerrie Stark Coronavirus NL63 Not detected Normal NOT DETECTED [facility] Comment on above: Performed By: #### L ACT #### [facility] [address] [place] [address] Dr. Kerrie Stark Coronavirus OC43 Not detected Normal NOT DETECTED [facility] Comment on above: Performed By: #### L ACT #### [facility] [address] [address] [address] Kerrie Stark Influenza A H1 Not detected Normal NOT DETECTED [facility] Comment on above: Performed By: #### L ACT #### [facility] [address] [address] [address] Kerrie Stark Influenza A H1 2009 Not detected Normal NOT DETECTED [facility] Comment on above: Performed By: #### L ACT #### [facility] [address] [address] [address] Kerrie Stark Influenza A H3 Not detected Normal NOT DETECTED [facility] Comment on above: Performed By: #### L ACT #### [facility] [address] [address] [address] Kerrie Stark Influenza B Not detected Normal NOT DETECTED [facility] Comment on above: Performed By: #### L ACT #### [facility] [address] [address] [address] Kerrie Stark Metapneumovirus Not detected Normal NOT DETECTED [facility] Comment on above: Performed By: #### L ACT #### [facility] [address] [address] [address] Kerrie Stark Mycoplas. Pneumoniae Not detected Normal NOT DETECTED [facility] Comment on above: Performed By: #### L ACT #### [facility] [address] [address] [address] Kerrie Stark Parainfluenza 1 Not detected Normal NOT DETECTED [facility] Comment on above: Performed By: #### L ACT #### [facility] [address] [address] [address] Kerrie Stark Parainfluenza 2 Not detected Normal NOT DETECTED [facility] Comment on above: Performed By: #### L ACT #### [facility] [address] [address] [address] Kerrie Stark Parainfluenza 3 Not detected Normal NOT DETECTED [facility] Comment on above: Performed By: #### L ACT #### [facility] [address] [address] [address] Kerrie Stark Parainfluenza 4 Not detected Normal NOT DETECTED [facility] Comment on above: Performed By: #### L ACT #### [facility] [address] [place] [address] Dr. Kerrie Satrk Rhino/Enterovirus Not detected Normal NOT DETECTED [facility] Comment on above: Performed By: #### L ACT #### [facility] [address] [place] [address] Dr. Kerrie Stark RP2 Header 1 RESPIRATORY PANEL: VIRUSES Normal [facility] Comment on above: Performed By: #### L ACT #### [facility] [address] [place] [address] Dr. Kerrie Stark RP2 Header 2 RESPIRATORY PANEL: BACTERIA Normal [facility] Comment on above: Performed By: #### L ACT #### [facility] [address] [place] [address] Dr. Kerrie Stark RSV Not detected Normal NOT DETECTED [facility] Comment on above: Performed By: #### L ACT #### [facility] [address] [place] [address] Dr. Kerrie Stark SARS-CoV-2 (COVID-19) RNA QUE+probe Ql (Unsp spec) Detected Abnormal NOT DETECTED [facility] Comment on above: Performed By: #### L ACT #### [facility] [address] [place] [address] Dr. Kerrie Stark TROPONIN, HIGH SENSITIVITYon 04-05-2022 HSTROP 8.4 pg/mL Normal 4.0-76.1 [facility] Comment on above: Result Comment: CUT- OFF POINTS HAVE BEEN ESTABLISHED BASED ON THE FOURTH UNIVERSAL DEFINITIONS OF MYOCARDIAL INFARCTION. THE UPPER REFERENCE LIMIT (URL) OF TROPONIN, DEFINED THE 99TH PERCENTILE OF cTnI DISTRIBUTION IN A REFERENCE POPULATION, HAS BEEN CONFIRMED THE DECISION THRESHOLD FOR [place] DIAGNOSIS. Performed By: #### C BC #### [facility] [address] [place] [address] Dr. Kerrie Stark Progress Noteson 03-30-2022 [employer] Observer Authentication Interface Message Text EMERGENCY TRIAGE, TREAT AND TRANSPORT (ET3) DOCUMENTATION OF TELEHEALTH VISIT Date / Time: 03/27/20222339 Name: Chema Childs : 1940 SSN: (Not on file) EMS Agency: [facility] [x] Verbal consent obtained [] [...] but too weak to reposition himself. His adis is present and provides history as well [...] prompted prolonged discussion w/ pt and his Adis about my serious concerns about his progressing illness and life threatening progression if he elected to stay home. Lab interpretation: blood glucose was within normal limits. Eventually after shared decision making, he agree to transport to ED. Disposition Supported by Telehealth Assessment: ET3 transport decisions: Transport to hospital EMS Disposition Reported: Same ET3 Encounter Completed by: Horace Parra DO Normal [facility] CBC W MANUAL DIFFon 03-29-19 23 ATYPICAL LYMPH # Normal [facility] Comment on above: Performed By: #### L ACT #### [facility] [address] [place] [address] Dr. Kerrie Stark ATYPICAL LYMPH % Normal [facility] Comment on above: Performed By: #### L ACT #### [facility] [address] [place] [address] Dr. Kerrie Stark BAND # 0.0 103/ul Normal 0.0-0.3 [facility] Comment on above: Performed By: #### L ACT #### [facility] [address] [place] [address] Dr. Kerrie Stark BAND % 0 % Normal 0-5 [facility] Comment on above: Performed By: #### L ACT #### [facility] [address] [place] [address] Dr. Kerrie Stark BASOM # 0.00 103/ul Normal 0.00-0.10 [facility] Comment on above: Performed By: #### L ACT #### [facility] [address] [place] [address] Dr. Kerrie Stark BASOM % 0.0 % Critically low 0.2-2.0 [facility] Comment on above: Performed By: #### L ACT #### [facility] [address] [place] [address] Dr. Kerrie Stark BLAST # Normal [facility] Comment on above: Performed By: #### L ACT #### [facility] [address] [place] [address] Dr. Kerrie Stark BLAST % Normal [facility] Comment on above: Performed By: #### L ACT #### [facility] [address] [place] [address] Dr. Kerrie Satrk CORRECTED WBC Normal 4.0-11.0 [facility] Comment on above: Performed By: #### L ACT #### [facility] [address] [place] [address] Dr. Kerrie Stark EOS # 0.00 103/ul Normal 0.00-0.70 [facility] Comment on above: Performed By: #### L ACT #### [facility] [address] [place] [address] Dr. Kerrie Stark EOS% 0.0 % Critically low 0.9-7.0 [facility] Comment on above: Performed By: #### L ACT #### [facility] [address] [address] [address] Kerrie Stark HCT 37.3 % Critically low 42.0-54.0 [facility] Comment on above: Performed By: #### L ACT #### [facility] [address] [address] [address] Kerrie Stark HGB 12.0 g/dl Critically low 14.0-18.0 [facility] Comment on above: Performed By: #### L ACT #### [facility] [address] [address] [address] Kerrie Stark LYMPHM # 0.00 103/ul Critically low 1.20-3.80 [facility] Comment on above: Performed By: #### L ACT #### [facility] [address] [address] [address] Kerrie Stark LYMPHM% 0.0 % Critically low 20.5-60.0 [facility] Comment on above: Performed By: #### L ACT #### [facility] [address] [address] [address] Kerrie Stark MCH 33.1 pg Normal 25.9-34.0 [facility] Comment on above: Performed By: #### L ACT #### [facility] [address] [address] [address] Kerrie Stark MCHC 32.2 g/dl Normal 29.9-35.2 [facility] Comment on above: Performed By: #### L ACT #### [facility] [address] [address] [address] Kerrie Stark MCV 103.0 fL Critically high 80.0-94.0 [facility] Comment on above: Performed By: #### L ACT #### [facility] [address] [address] [address] Kerrie Stark METAMYELOCYTE # Normal [facility] Comment on above: Performed By: #### L ACT #### [facility] [address] [address] [address] Kerrie Stark METAMYELOCYTE % Normal [facility] Comment on above: Performed By: #### L ACT #### [facility] [address] [address] [address] Kerrie Stark MONOM# 0.69 103/ul Normal 0.30-0.80 [facility] Comment on above: Performed By: #### L ACT #### [facility] [address] [address] [address] Kerrie Stark MONOM% 5.0 % Normal 1.7-12.0 [facility] Comment on above: Performed By: #### L ACT #### [facility] [address] [place] [address] Dr. Kerrie Stark MPV 10.6 fL Normal 9.5-13.5 [facility] Comment on above: Performed By: #### L ACT #### [facility] [address] [place] [address] Dr. Kerrie Stark MYELOCYTE # Normal [facility] Comment on above: Performed By: #### L ACT #### [facility] [address] [address] [address] Kerrie Stark MYELOCYTE % Normal [facility] Comment on above: Performed By: #### L ACT #### [facility] [address] [place] [address] Dr. Kerrie Stark NRBC Normal [facility] Comment on above: Performed By: #### L ACT #### [facility] [address] [address] [address] Kerrie Stark PLT 158 103/ul Normal 150-450 [facility] Comment on above: Performed By: #### L ACT #### [facility] [address] [address] [address] Kerrie Stark RBC 3.62 106/ul Critically low 4.70-6.10 [facility] Comment on above: Performed By: #### L ACT #### [facility] [address] [address] [address] Kerrie Stark RDW 13.2 % Normal 11.0-15.0 [facility] Comment on above: Performed By: #### L ACT #### [facility] [address] [address] [address] Kerrie Stark SEG # 13.02 103/ul Critically high 1.40-6.50 [facility] Comment on above: Performed By: #### L ACT #### [facility] [address] [id number] Kerrie Stark SEG % 95.0 % Critically high 43.0-75.0 [facility] Comment on above: Performed By: #### L ACT #### [facility] [address] [address] [address] Kerrie Stark WBC 13.7 103/ul Critically high 4.0-11.0 [facility] Comment on above: Performed By: #### L ACT #### [facility] [address] [address] [address] Kerrie Stark POINT OF CARE GLUCOSEon Glucose [Mass/Vol] 300 mg/dL Critically high 74-106 [facility] Comment on above: Performed By: #### C BC #### [facility] [address] [address] [address] Kerrie Stark PROF CHEM 8 (BAS METB)on Anion gap [Moles/Vol] 12.5 mmol/L Normal [facility] Comment on above: Performed By: #### D DIM #### [facility] [address] [address] [address] Kerrie Stark Calcium [Mass/Vol] 8.9 mg/dL Normal 8.5-10.1 [facility] Comment on above: Performed By: #### D DIM #### [facility] [address] [address] [address] Kerrie Stark Chloride [Moles/Vol] 103 mmol/L Normal 98-107 [facility] Comment on above: Performed By: #### D DIM #### [facility] [address] [address] [address] Kerrie Stark CO2 [Moles/Vol] 25.4 mmol/L Normal 21.0-32.0 [facility] Comment on above: Performed By: #### D DIM #### [facility] [address] [place] [address] Dr. Kerrie Stark Creatinine [Mass/Vol] 1.05 mg/dL Normal 0.70-1.30 [facility] Comment on above: Performed By: #### D DIM #### [facility] [address] [place] [address] Dr. Kerrie Stark EGFR-AF LIBERIAN >60 Normal >=60 [facility] Comment on above: Performed By: #### D DIM #### [facility] [address] [address] [address] Kerrie Stark EGFR-NON AF LIBERIAN >60 Normal >=60 [facility] Comment on above: Performed By: #### D DIM #### [facility] [address] [place] [address] Dr. Kerrie Stark Glucose [Mass/Vol] 243 mg/dL Critically high 74-[address] [facility] Comment on above: Performed By: #### D DIM #### [facility] [address] [place] [address] Dr. Kerrie Stark Potassium [Moles/Vol] 3.9 mmol/L Normal 3.5-5.1 [facility] Comment on above: Performed By: #### D DIM #### [facility] [address] [place] [address] Dr. Kerrie Stark Sodium [Moles/Vol] 137 mmol/L Normal 136-145 [facility] Comment on above: Performed By: #### D DIM #### [facility] [address] [place] [address] Dr. Kerrie Stark Urea nitrogen [Mass/Vol] 22.0 mg/dL Critically high 7.0-18.0 [facility] Comment on above: Performed By: #### D DIM #### [facility] [address] [place] [address] Dr. Kerrie Stark Urea nitrogen/Creatinine [Mass ratio] 21.0 mg/mg Normal [facility] Comment on above: Performed By: #### D DIM #### [facility] [address] [address] [address] Kerrie Stark CARDIAC CONSTANTINE 3-6on 3 CK [Catalytic activity/Vol] 91 U/L Normal 39-308 [facility] Comment on above: Performed By: #### C MREP #### [facility] [address] [address] [address] Kerrie Stark CK.MB [Mass/Vol] 0.35 ng/mL Normal <=3.60 [facility] Comment on above: Performed By: #### C MREP #### [facility] [address] [place] [address] Dr. Kerrie Stark HSTROP 20.8 pg/mL Normal 4.0-76.1 [facility] Comment on above: Result Comment: CUT- OFF POINTS HAVE BEEN ESTABLISHED BASED ON THE FOURTH UNIVERSAL DEFINITIONS OF MYOCARDIAL INFARCTION. THE UPPER REFERENCE LIMIT (URL) OF TROPONIN, DEFINED THE 99TH PERCENTILE OF cTnI DISTRIBUTION IN A REFERENCE POPULATION, HAS BEEN CONFIRMED THE DECISION THRESHOLD FOR [place] DIAGNOSIS. Performed By: #### C MREP #### [facility] [address] [place] [address] Dr. Kerrie Stark CARDIAC CONSTANTINE ADMITon 023 CK [Catalytic activity/Vol] 56 U/L Normal 39-308 [facility] Comment on above: Performed By: #### D DIM #### [facility] [address] [place] [address] Dr. Kerrie Stark CK.MB [Mass/Vol] 0.36 ng/mL Normal <=3.60 [facility] Comment on above: Performed By: #### D DIM #### [facility] [address] [place] [address] Dr. Kerrie Stark HSTROP 12.7 pg/mL Normal 4.0-76.1 [facility] Comment on above: Result Comment: CUT- OFF POINTS HAVE BEEN ESTABLISHED BASED ON THE FOURTH UNIVERSAL DEFINITIONS OF MYOCARDIAL INFARCTION. THE UPPER REFERENCE LIMIT (URL) OF TROPONIN, DEFINED THE 99TH PERCENTILE OF cTnI DISTRIBUTION IN A REFERENCE POPULATION, HAS BEEN CONFIRMED THE DECISION THRESHOLD FOR [place] DIAGNOSIS. Performed By: #### D DIM #### [facility] [address] [address] [address] Kerrie Stark KIKE 128 ng/mL Critically high 16-96 [facility] Comment on above: Performed By: #### D DIM #### [facility] [address] [address] [address] Kerrie Stark CBC AUTO DIFFon 03-28-2022 BASO # 0.0 103/ul Normal 0.0-0.1 [facility] Comment on above: Performed By: #### C BC #### [facility] [address] [address] [address] Kerrie Stark Basophils/100 WBC (Bld) 0.2 % Normal 0.2-2.0 [facility] Comment on above: Performed By: #### C BC #### [facility] [address] [place] [address] Dr. Kerrie Stark EO # 0.0 103/ul Normal 0.0-0.7 [facility] Comment on above: Performed By: #### C BC #### [facility] [address] [place] [address] Dr. Kerrei Stark Eosinophils/100 WBC (Bld) 0.1 % Critically low 0.9-7.0 [facility] Comment on above: Performed By: #### C BC #### [facility] [address] [place] [address] Dr. Kerrie Stark Erythrocyte distribution width (RBC) [Ratio] 13.3 % Normal 11.0-15.0 [facility] Comment on above: Performed By: #### C BC #### [facility] [address] [place] [address] Dr. Kerrie Stark Hematocrit (Bld) [Volume fraction] 41.9 % Critically low 42.0-54.0 [facility] Comment on above: Performed By: #### C BC #### [facility] [address] [place] [address] Dr. Kerrie Stark Hemoglobin (Bld) [Mass/Vol] 13.3 g/dL Critically low 14.0-18.0 [facility] Comment on above: Performed By: #### C BC #### [facility] [address] [address] [address] Kerrie Stark IG # 0.04 10e3/ul Critically high 0.00-0.03 [facility] Comment on above: Performed By: #### C BC #### [facility] [address] [place] [address] Dr. Kerrie Stark IG % 0.4 % Normal 0.0-0.5 [facility] Comment on above: Performed By: #### C BC #### [facility] [address] [address] [address] Kerrie Stark LYMPH # 0.5 103/ul Critically low 1.2-3.8 [facility] Comment on above: Performed By: #### C BC #### [facility] [address] [place] [address] Dr. Kerrie Stark Lymphocytes/100 WBC (Bld) 5.1 % Critically low 20.5-60.0 [facility] Comment on above: Performed By: #### C BC #### [facility] [address] [place] [address] Dr. Kerrie Stark MANUAL DIFF REQ NO Normal [facility] Comment on above: Performed By: #### C BC #### [facility] [address] [place] [address] Dr. Kerrie Stark MCH (RBC) [Entitic mass] 33.2 pg Normal 25.9-34.0 [facility] Comment on above: Performed By: #### C BC #### [facility] [address] [place] [address] Dr. Kerrie Stark MCHC (RBC) [Mass/Vol] 31.7 g/dL Normal 29.9-35.2 [facility] Comment on above: Performed By: #### C BC #### [facility] [address] [place] [address] Dr. Kerrie Stark MCV (RBC) [Entitic vol] 104.5 fL Critically high 80.0-94.0 [facility] Comment on above: Performed By: #### C BC #### [facility] [address] [address] [address] Kerrie Stark MONO # 1.1 103/ul Critically high 0.3-0.8 [facility] Comment on above: Performed By: #### C BC #### [facility] [address] [address] [address] Kerrie Stark Monocytes/100 WBC (Bld) 10.9 % Normal 1.7-12.0 [facility] Comment on above: Performed By: #### C BC #### [facility] [address] [place] [address] Dr. Kerrie Stark NEUT # 8.3 103/ul Critically high 1.4-6.5 [facility] Comment on above: Performed By: #### C BC #### [facility] [address] [place] [address] Dr. Kerrie Stark Neutrophils/100 WBC (Bld) 83.3 % Critically high 43.0-75.0 [facility] Comment on above: Performed By: #### C BC #### [facility] [address] [place] [address] Dr. Kerrie Stark Platelet mean volume (Bld) [Entitic vol] 10.8 fL Normal 9.5-13.5 [facility] Comment on above: Performed By: #### C BC #### [facility] [address] [place] [address] Dr. Kerrie Stark PLT 145 103/ul Critically low 150-450 [facility] Comment on above: Performed By: #### C BC #### [facility] [address] [place] [address] Dr. Kerrie Stark RBC 4.01 106/ul Critically low 4.70-6.10 [facility] Comment on above: Performed By: #### C BC #### [facility] [address] [place] [address] Dr. Kerrie Stark WBC 10.0 103/ul Normal 4.0-11.0 [facility] Comment on above: Performed By: #### C BC #### [facility] [address] [place] [address] Dr. Kerrie Stark CTA CHEST WO W [...] FAROOQ [place] Date: 2022-03-28 06:03 Normal [facility] Covid-19 PCR (CVDTBH)on SARS-CoV-2 (COVID-19) RNA QUE+probe Ql (Unsp spec) Detected Abnormal NOT DETECTED [facility] Comment on above: Result Comment: This test is not yet approved or cleared by the [place] FDA. When there are no FDA-approved or cleared tests available, and other criteria are met, FDA can make tests available under an emergency access mechanism called an Emergency Use Authorization (EUA). The EUA for this test is supported by the [employer] of Health and Human Service's declaration that [...] used). Performed By: #### C BC #### [facility] [address] [place] [address] Dr. Kerrie Stark D-DIMERon 03-28-2022 D-DIMER 0.71 mg/L FEU Critically high <=0.59 [facility] Comment on above: Performed By: #### D DIM #### [facility] [address] [place] [address] Dr. Kerrie Stark D-DIMER COMMENTS SEE BELOW Normal [facility] Comment on above: Result Comment: Incr eases [...] hospitalization. Performed By: #### D DIM #### [facility] [address] [place] [address] Dr. Kerrie Stark ER URINE PROFILEon 3 Bilirubin Ql (U) Negative Normal NEGATIVE [facility] Comment on above: Performed By: #### P OCGLUC #### [facility] [address] [place] [address] Dr. Kerrie Stark Clarity (U) CLEAR Normal CLEAR [facility] Comment on above: Performed By: #### P OCGLUC #### [facility] [address] [place] [address] Dr. Kerrie Stark Color (U) YELLOW Normal YELLOW [facility] Comment on above: Performed By: #### P OCGLUC #### [facility] [address] [place] [address] Dr. Kerrie Stark ERUAHD A micrscopic examination will be performed if indicated. Normal [facility] Comment on above: Performed By: #### P OCGLUC #### [facility] [address] [address] [address] Kerrie Stark Glucose Ql (U) Negative Normal NEGATIVE [facility] Comment on above: Performed By: #### P OCGLUC #### [facility] [address] [address] [address] Kerrie Stark Hemoglobin Ql (U) Negative Normal NEGATIVE [facility] Comment on above: Performed By: #### P OCGLUC #### [facility] [address] [address] [address] Kerrie Stark Ketones Ql (U) TRACE Abnormal NEGATIVE [facility] Comment on above: Performed By: #### P OCGLUC #### [facility] [address] [place] [address] Dr. Kerrie Stark LEUKOCYTES Negative Normal NEGATIVE [facility] Comment on above: Performed By: #### P OCGLUC #### [facility] [address] [address] [address] Kerrie Stark Nitrite Ql (U) Negative Normal NEGATIVE [facility] Comment on above: Performed By: #### P OCGLUC #### [facility] [address] [place] [address] Dr. Kerrie Stark pH (U) 5.5 [pH] Normal 5-9 [facility] Comment on above: Performed By: #### P OCGLUC #### [facility] [address] [place] [address] Dr. Kerrie Stark Protein (U) [Mass/Vol] 30 mg/dL Abnormal NEGAT LITTLE/ TRACE [facility] Comment on above: Performed By: #### P OCGLUC #### [facility] [address] [place] [address] Dr. Kerrie Stark SPEC GRAVITY 1.025 Normal 1.005-<=1.025 [facility] Comment on above: Performed By: #### P OCGLUC #### [facility] [address] [place] [address] Dr. Kerrie Stark UR MICRO IND NOT INDICATED Normal [facility] Comment on above: Performed By: #### P OCGLUC #### [facility] [address] [place] [address] Dr. Kerrie Stark Urobilinogen Qn (U) 1.0 {Ricky'U}/dL Normal 0.2 - 1. 0 [facility] Comment on above: Performed By: #### P OCGLUC #### [facility] [address] [place] [address] Dr. Kerrie Stark INFLUENZA A AND B AGon 03-28 INFLUANEGH SEE BELOW Normal [facility] Comment on above: Result Comment: Nega tive for Flu A protein angiten. Infection due to Flu A cannot be ruled out. Flu A angiten in the sample may be below the detection limit of the test. Performed By: #### L ACT #### [facility] [address] [place] [address] Dr. Kerrie Stark INFLUBNEGH SEE BELOW Normal [facility] Comment on above: Result Comment: Nega tive for Flu B protein antigen. Infection due to Flu B cannot be ruled out. Flu B antigen in the sample may be below the detection limit of the test. Performed By: #### L ACT #### [facility] [address] [place] [address] Dr. Kerrie Stark INFLUENZA A AG Negative Normal NEGATIVE SEE COMMENT [facility] Comment on above: Performed By: #### L ACT #### [facility] [address] [place] [address] Dr. Kerrie Stark INFLUENZA B AG Negative Normal NEGATIVE SEE COMMENT [facility] Comment on above: Performed By: #### L ACT #### [facility] [address] [place] [address] Dr. Kerrie Stark POINT OF CARE GLUCOSEon -0 Glucose [Mass/Vol] 251 mg/dL Critically high 74-106 [facility] Comment on above: Performed By: #### C BC #### [facility] [address] [place] [address] Dr. Kerrie Stark Glucose [Mass/Vol] 244 mg/dL Critically high 74-106 [facility] Comment on above: Performed By: #### B LDCX1 #### [facility] [address] [address] [address] Kerrie Stark Glucose [Mass/Vol] 398 mg/dL Critically high 74-106 [facility] Comment on above: Performed By: #### P OCGLUC #### [facility] [address] [address] [address] Kerrie Stark PROF CHEM 8 (BAS METB)on Anion gap [Moles/Vol] 17.2 mmol/L Normal [facility] Comment on above: Performed By: #### D DIM #### [facility] [address] [address] [address] Kerrie Stark Calcium [Mass/Vol] 9.0 mg/dL Normal 8.5-10.1 [facility] Comment on above: Performed By: #### D DIM #### [facility] [address] [address] [address] Kerrie Stark Chloride [Moles/Vol] 96 mmol/L Critically low 98-107 [facility] Comment on above: Performed By: #### D DIM #### [facility] [address] [address] [address] Kerrie Stark CO2 [Moles/Vol] 23.6 mmol/L Normal 21.0-32.0 [facility] Comment on above: Performed By: #### D DIM #### [facility] [address] [address] [address] Kerrie Stark Creatinine [Mass/Vol] 1.41 mg/dL Critically high 0.70-1.30 [facility] Comment on above: Performed By: #### D DIM #### [facility] [address] [address] [address] Kerrie Stark EGFR-AF LIBERIAN 58 mL/min/1.73m2 Critically low >=60 [facility] Comment on above: Performed By: #### D DIM #### [facility] [address] [address] [address] Kerrie Stark EGFR-NON AF LIBERIAN 48 mL/min/1.73m2 Critically low >=60 [facility] Comment on above: Performed By: #### D DIM #### [facility] [address] [address] [address] Kerrie Stark Glucose [Mass/Vol] 151 mg/dL Critically high 74-[address] [facility] Comment on above: Performed By: #### D DIM #### [facility] [address] [address] [address] Kerrie Stark Potassium [Moles/Vol] 3.8 mmol/L Normal 3.5-5.1 [facility] Comment on above: Performed By: #### D DIM #### [facility] [address] [address] [address] Kerrie Stark Sodium [Moles/Vol] 133 mmol/L Critically low 136-145 [facility] Comment on above: Performed By: #### D DIM #### [facility] [address] [address] [address] Kerrie Stark Urea nitrogen [Mass/Vol] 20.0 mg/dL Critically high 7.0-18.0 [facility] Comment on above: Performed By: #### D DIM #### [facility] [address] [address] [address] Kerrie Stark Urea nitrogen/Creatinine [Mass ratio] 14.2 mg/mg Normal [facility] Comment on above: Performed By: #### D DIM #### [facility] [address] [address] [address] Kerrie Stark XR CHEST 2 Von [...] by: PONCHO ROCHA Date: 2022-03-28 01:38 Normal [facility] Auth for Release of Medical Recordson 03-09-2022 Auth for Release of Medical Records [id number] #1.00CD:127 Normal [facility] Cult,Urineon 03-02-2022 Cult,Urine Specimen Description .CLEAN CATCH URINE Culture NO SIGNIFICANT GROWTH Report Status FINAL 03/02/2022 Normal [facility] Comment on above: Performed By: #### U RC #### [facility] [address] [place], [place] [id number] Registered Radiographer: Sandip Smith MD [facility] [address] [place] [address] [place] [address] Registered Radiographer: Ulisses Gaines MD Urinalysis w/ Microon 2022 Bacteria TRACE Abnormal NONE [facility] Comment on above: Performed By: #### U AMIC #### [facility] [address] [place] [address] Dr[address] [place], [place] [id number] Registered Radiographer: Ulisses Gaines MD Bilirubin, SemiQt,Ur Negative Normal NEG [facility] Comment on above: Performed By: #### U AMIC #### [address] [place] [address] Registered Radiographer: Ulisses Gaines MD Blood, Urine Negative Normal NEG [facility] Comment on above: Performed By: #### U AMIC #### [facility] [address] [place] [address] [place] [address] Registered Radiographer: Ulisses Gaines MD Clarity (U) Clear Normal CLEAR [facility] Comment on above: Performed By: #### U AMIC #### [facility] [address] [place] [address] [place] [address] Registered Radiographer: Ulisses Gaines MD Color (U) Yellow Normal YEL [facility] Comment on above: Performed By: #### U AMIC #### [facility] [address] [place], [place] [id number] Registered Radiographer: Ulisses Gaines MD Epithelial cells LM Ql (Urine sed) 0 TO 2 Normal 0-5 [facility] Comment on above: Performed By: #### U AMIC #### [facility] [address] [place] [address] Dr. [place], [place] [id number] Registered Radiographer: Ulisses Gaines MD Glucose Ql (U) Negative Normal NEG [facility] Comment on above: Performed By: #### U AMIC #### [facility] [address] [place] [address] Dr. [place], [place] [id number] Registered Radiographer: Ulisses Gaines MD Ketones Ql (U) Negative Normal NEG [facility] Comment on above: Performed By: #### U AMIC #### [facility] [address] [place] [address] Dr. [place], [place] [id number] Registered Radiographer: Ulisses Gaines MD Leukocyte esterase Test strip Ql (U) Negative Normal NEG [facility] Comment on above: Performed By: #### U AMIC #### [address] [place], [place] [id number] Registered Radiographer: Ulisses aGines MD Nitrite,Ur Negative Normal NEG [facility] Comment on above: Performed By: #### U AMIC #### [facility] [address] [place] [address] Dr. [place], [place] [id number] Registered Radiographer: Ulisses Gaines MD PH,Ur 6.0 Normal 5.0-9.0 [facility] Comment on above: Performed By: #### U AMIC #### [facility] [address] [place] [address] Dr. [place], [place] [id number] Registered Radiographer: Ulisses Gaines MD Protein Ql (U) Negative Normal NEG [facility] Comment on above: Performed By: #### U AMIC #### [facility] [address] [place] [address] Dr. [place], [place] [id number] Registered Radiographer: Ulisses Gaines MD Spec. [place],Ur 1.010 Normal 1.010-1.020 [facility] Comment on above: Performed By: #### U AMIC #### [facility] [address] [place], [place] [id number] Registered Radiographer: Ulisses Gaines MD Urine RBC's None Normal 0-2 [facility] Comment on above: Performed By: #### U AMIC #### [facility] [address] [place] [address] Registered Radiographer: Ulisses Gaines MD Urine WBC's None Normal 0-5 [facility] Comment on above: Performed By: #### U AMIC #### [facility] [address] [place], [place] [id number] Registered Radiographer: Ulisses Gaines MD Urobilinogen,Ur Normal Normal NORM [facility] Comment on above: Performed By: #### U AMIC #### [facility] [address] [place], [place] [id number] Registered Radiographer: Ulisses Gaines MD Urinalysis with Microscopico n 03-01-2022 Bacteria, UA TRACE Abnormal None [facility] Bilirubin Urine Negative NEGATIVE [facility] Color, UA Yellow Yellow [facility] Epithelial Cells UA 0 TO 2 [facility] Glucose, Ur Negative NEGATIVE [facility] Interpretation and review of laboratory results Abnormal [facility] Ketones Ql (U) Negative NEGATIVE [facility] Leukocyte esterase Test strip Ql (U) Negative NEGATIVE [facility] Nitrite, Urine Negative NEGATIVE [facility] pH, UA 6.0 5.0 - 9.0 [facility] Protein, UA Negative NEGATIVE [facility] RBC, UA None [facility] Specific [place], UA 1.010 1.010 - 1.020 B ON [facility] Turbidity UA Clear Clear [facility] Urine Hgb Negative NEGATIVE [facility] Urobilinogen, Urine Normal Normal [facility] WBC, UA None [facility] GLYCOHEMOGLOBIN A1Con 2021 ADA RECOMMENDATION SEE BELOW Normal [facility] Comment on above: Result Comment: ADA RECOMMENDED LIMIT 4.0 - 6.0 ADA THERAPEUTIC TARGET < 7.0 ACTION SUGGESTED > 7.0 Performed By: #### P OCGLUC #### [facility] [address] [address] [address] Kerrie Stark Glucose [Mass/Vol] 146 mg/dL Normal [facility] Comment on above: Performed By: #### P OCGLUC #### [facility] [address] [address] [address] Kerrie Stark HbA1c (Bld) [Mass fraction] 6.7 % Critically high 4.5-6.2 [facility] Comment on above: Performed By: #### P OCGLUC #### [facility] [address] [address] [address] Kerrie Stark LIPID PROFILEon 02-01-2022 CHOL-HDL RATIO NORM SEE BELOW Normal [facility] Comment on above: Result Comment: 3.3 - 4.4 LOW RISK 4.4 - 7.1 AVERAGE RISK 7.1 - 11.0 MODERATE RISK >11.0 HIGH RISK Performed By: #### P OCGLUC #### [facility] [address] [address] [address] Kerrie Stark Cholesterol [Mass/Vol] 127 mg/dL Normal <=200 [facility] Comment on above: Performed By: #### P OCGLUC #### [facility] [address] [address] [address] Kerrie Stark Cholesterol in HDL [Mass/Vol] 50 mg/dL Normal 40-60 [facility] Comment on above: Performed By: #### P OCGLUC #### [facility] [address] [address] [address] Kerrie Stark Cholesterol in LDL [Mass/Vol] 58.8 mg/dL Normal [facility] Comment on above: Performed By: #### P OCGLUC #### [facility] [address] [address] [address] Kerrie Stark Cholesterol.total/Chol esterol in HDL [Mass ratio] 2.5 {ratio} Normal [facility] Comment on above: Performed By: #### P OCGLUC #### [facility] [address] [address] [address] Kerrie Stark HDL NORMAL > or = 60 mg/dl - LOW CARDIOVASCULAR RISK <40 mg/dl - HIGH CARDIOVASCULAR RISK Normal [facility] Comment on above: Performed By: #### P OCGLUC #### [facility] [address] [address] [address] Kerrie Stark LDL CALC NORMAL SEE BELOW Normal [facility] Comment on above: Result Comment: <100 mg/dl OPTIMAL 100 - 129 mg/dl NEAR OR ABOVE OPTIMAL 130 - 159 mg/dl BORDERLINE HIGH 160 - 189 mg/dl HIGH >190 mg/dl VERY HIGH Performed By: #### P OCGLUC #### [facility] [address] [address] [address] Kerrie Stark Triglyceride [Mass/Vol] 91 mg/dL Normal <=150 [facility] Comment on above: Performed By: #### P OCGLUC #### [facility] [address] [address] [address] Kerrie Stark VLDL CALC 18.2 mg/dL Normal [facility] Comment on above: Performed By: #### P OCGLUC #### [facility] [address] [address] [address] Kerrie Stark PROF 14(COMP METB)on 022 Albumin [Mass/Vol] 3.8 g/dL Normal 3.4-5.0 [facility] Comment on above: Performed By: #### P OCGLUC #### [facility] [address] [address] [address] Kerrie Stark Albumin/Globulin [Mass ratio] 1.0 {ratio} Normal [facility] Comment on above: Performed By: #### P OCGLUC #### [facility] [address] [address] [address] Kerrie Stark ALP [Catalytic activity/Vol] 56 U/L Normal 46-116 [facility] Comment on above: Performed By: #### P OCGLUC #### [facility] [address] [address] [address] Kerrie Stark ALT [Catalytic activity/Vol] 30 U/L Normal 16-63 [facility] Comment on above: Performed By: #### P OCGLUC #### [facility] [address] [address] [address] Kerrie Stark Anion gap [Moles/Vol] 13.3 mmol/L Normal [facility] Comment on above: Performed By: #### P OCGLUC #### [facility] [address] [address] [address] Kerrie Stark AST [Catalytic activity/Vol] 26 U/L Normal 15-37 [facility] Comment on above: Performed By: #### P OCGLUC #### [facility] [address] [address] [address] Kerrie Stark Bilirubin [Mass/Vol] 0.7 mg/dL Normal 0.2-1.0 [facility] Comment on above: Performed By: #### P OCGLUC #### [facility] [address] [address] [address] Kerrie Stark Calcium [Mass/Vol] 9.0 mg/dL Normal 8.5-10.1 [facility] Comment on above: Performed By: #### P OCGLUC #### [facility] [address] [address] [address] Kerrie Stark Chloride [Moles/Vol] 105 mmol/L Normal 98-107 [facility] Comment on above: Performed By: #### P OCGLUC #### [facility] [address] [address] [address] Kerrie Stark CO2 [Moles/Vol] 28.3 mmol/L Normal 21.0-32.0 [facility] Comment on above: Performed By: #### P OCGLUC #### [facility] [address] [address] [address] Kerrie Stark Creatinine [Mass/Vol] 1.00 mg/dL Normal 0.70-1.30 [facility] Comment on above: Performed By: #### P OCGLUC #### [facility] [address] [address] [address] Kerrie Stark EGFR-AF LIBERIAN >60 Normal >=60 [facility] Comment on above: Performed By: #### P OCGLUC #### [facility] [address] [address] [address] Kerrie Stark EGFR-NON AF LIBERIAN >60 Normal >=60 [facility] Comment on above: Performed By: #### P OCGLUC #### [facility] [address] [address] [address] Kerrie Stark Globulin (S) [Mass/Vol] 3.7 g/dL Normal [facility] Comment on above: Performed By: #### P OCGLUC #### [facility] [address] [address] [address] Kerrie Stark Glucose [Mass/Vol] 150 mg/dL Critically high 74-106 [facility] Comment on above: Performed By: #### P OCGLUC #### [facility] [address] [address] [address] Kerrie Stark Potassium [Moles/Vol] 5.6 mmol/L Critically high 3.5-5.1 [facility] Comment on above: Performed By: #### P OCGLUC #### [facility] [address] [address] [address] Kerrie Stark Protein [Mass/Vol] 7.5 g/dL Normal 6.4-8.2 [facility] Comment on above: Performed By: #### P OCGLUC #### [facility] [address] [address] [address] Kerrie Stark Sodium [Moles/Vol] 141 mmol/L Normal 136-145 [facility] Comment on above: Performed By: #### P OCGLUC #### [facility] [address] [address] [address] Kerrie Stark Urea nitrogen [Mass/Vol] 18.0 mg/dL Normal 7.0-18.0 [facility] Comment on above: Performed By: #### P OCGLUC #### [facility] [address] [place], [place] [address] Dr. Kerrie Stark Urea nitrogen/Creatinine [Mass ratio] 18.0 mg/mg Normal [facility] Comment on above: Performed By: #### P OCGLUC #### [facility] [address] [place], [place] [address] Dr. Kerrie Stark Creatinine (Bld) [Mass/Vol]O rdered By: Oumar Haynes on 01-30-2022 Creatinine [Mass/Vol] 1.0 mg/dL 0.6-1.3 [facility] Comment on above: ER/ESD physician is notified/shown all ISTAT results.Critical values may be confirmed by laboratory testing ifdeemed necessary by ER attending doctor. No Panel InformationOrdered By: Oumar Haynes on 01-30-2022 POC Estimated GFR > 60 [facility] Comment on above: GFR estimated refere nce range: According to KDOQI guidelines, <60 ml/min/1.73m2 is sufficient to diagnose a patient with chronic kidney disease. POC Estimated GFR Non- Amer > 60 [facility] Auth for Release of Medical Recordson 12-22-2021 Auth for Release of Medical Records [id number] #1.00CD:127 Normal [facility] Formson 11-25-2021 Forms [id number] #1.00CD:127 Normal [facility] Patient Educationon 11-24-19 Patient Education Infectious Disease [...] Follow these instructions at home: ? Take [id number] and prescription medicines only as told by [...] Docum (more content not included)... Normal [facility] Urology Office/Clinic Noteon 11-23-2021 Urology Office/Clinic Note Chief Complaint Patient in office for dysuria HPI Staff New patient in office with complaints of dysuria x 2 months. States he saw Dr. Hemeyer about a month ago and he put [...] w 4 wks abx. side effects/risks discussed. fish drier clearance 62-70, no renal dose adjustment needed. encouraged probiotics, metamucil, and yogurt to help w diarrhea. complete entire abx course. 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 [address] Additional Instructions: Patient Education Prostatitis Problem List/Past [...] Protein Urine Dipstick: Negative (11/23/21 09:44:00) Specific [place] Urine Dipstick: 1.015 (11/23/21 09 (more content not included)... Normal [facility] Comment on above: Result Comment: Elec tronically Signed By: KONG PEPE PA-C\.br\Date and Time Signed: 11/23/21 11:02 EDT Historical Records Officeon 11-01-2021 Historical Records Office [id number] #1.00CD:127 Normal [facility] FREE T3on 09-21-2021 FREE T3 1.88 pg/mlL Critically low 2.18-3.98 [facility] Comment on above: Performed By: #### P OCGLUC #### [facility] [address] [place] [address] Dr. Kerrie Stark FREE T4on 09-21-2021 Free T4 [Mass/Vol] 1.28 ng/dL Normal 0.76-1.46 [facility] Comment on above: Performed By: #### D DIM #### [facility] [address] [address] [address] Kerrie Stark TSHon 09-21-2021 TSH 0.625 uIU/mL Normal 0.358-3.740 [facility] Comment on above: Performed By: #### P OCGLUC #### [facility] [address] [address] [address] Kerrie Stark CTA Abdomen/Pelvis w/ and [...] by Harpal Crane on 08/11/2021 1410 Normal [facility] Specialist CREATININEon 08-03-2021 Creatinine [Mass/Vol] 0.98 mg/dL Normal 0.70-1.30 [facility] Comment on above: Performed By: #### L ACT #### [facility] [address] [address] [address] Kerrie Stark EGFR-AF LIBERIAN >60 Normal >=60 [facility] Comment on above: Performed By: #### L ACT #### [facility] [address] [address] [address] Kerrie Stark EGFR-NON AF LIBERIAN >60 Normal >=60 [facility] Comment on above: Performed By: #### L ACT #### [facility] [address] [address] [address] Kerrie Stark GLYCOHEMOGLOBIN A1Con 2021 ADA RECOMMENDATION SEE BELOW Normal [facility] Comment on above: Result Comment: ADA RECOMMENDED LIMIT 4.0 - 6.0 ADA THERAPEUTIC TARGET < 7.0 ACTION SUGGESTED > 7.0 Performed By: #### P OCGLUC #### [facility] [address] [address] [address] Kerrie Stark Glucose [Mass/Vol] 146 mg/dL Normal [facility] Comment on above: Performed By: #### P OCGLUC #### [facility] [address] [address] [address] Kerrie Stark HbA1c (Bld) [Mass fraction] 6.7 % Critically high 4.5-6.2 [facility] [facility] Comment on above: Performed By: #### P OCGLUC #### [facility] [address] [address] [address] Kerrie Stark Vital Signs Date Time Vital Sign Value Performing Clinician Facility 01-31-2023 10:00-0500 Body height 175.26 cm Horace Jasso Other [employer] Other 01-31-2023 10:00-0500 Body mass index (BMI) [Ratio] 27.32 kg/m2 Horace Jasso Other [employer] Other 01-31-2023 10:00-0500 Body temperature 97.6 [degF] Horace Jasso Other [employer] Other 01-31-2023 10:00-0500 Body weight 83.92 kg Horace Jasso Other [employer] Other 01-31-2023 10:00-0500 Diastolic blood pressure 64 mm[Hg] Horace Jasso Other [employer] Other 01-31-2023 10:00-0500 SaO2% (BldA) [Mass fraction] 94 % Horace Jasso Other [employer] Other 01-31-2023 10:00-0500 Systolic blood pressure 108 mm[Hg] Horace Jasso Other [employer] Other 03-27-2022 23:40-0500 Diastolic blood pressure 78 mm[Hg] [facility] [employer] 03-27-2022 23:40-0500 Heart rate 121 /min [facility] [employer] 03-27-2022 23:40-0500 Respiratory rate 22 /min [facility] [employer] 03-27-2022 23:40-0500 SaO2% (BldA) [Mass fraction] 92 % [facility] [employer] 03-27-2022 23:40-0500 Systolic blood pressure 137 mm[Hg] [facility] [employer] 01-31-2022 12:00-0500 Body height 175.26 cm 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 Other [employer] Other 01-31-2022 12:00-0500 Body mass index (BMI) [Ratio] 27.32 kg/m2 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 Other [employer] Other 01-31-2022 12:00-0500 Body temperature 96.4 [degF] 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 Other [employer] Other 01-31-2022 12:00-0500 Body weight 83.92 kg 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 Other [employer] Other 01-31-2022 12:00-0500 Diastolic blood pressure 72 mm[Hg] 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 Other [employer] Other 01-31-2022 12:00-0500 SaO2% (BldA) [Mass fraction] 97 % 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 Other [employer] Other 01-31-2022 12:00-0500 Systolic blood pressure 120 mm[Hg] 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 Other [employer] Other 11-23-2021 09:59-0400 Blood Pressure Location KONG SCHRADERRY [facility] 11-23-2021 09:59-0400 Diastolic blood pressure 70 mm[Hg] KONG MY [facility] 11-23-2021 09:59-0400 Heart rate 66 /min KONG MY [facility] 11-23-2021 09:59-0400 Systolic blood pressure 132 mm[Hg] KONG MY [facility] 08-16-2021 12:45-0400 Body height 175.26 cm Oumar Haynes Other [employer] Other 08-16-2021 12:45-0400 Body mass index (BMI) [Ratio] 27.32 kg/m2 Oumar Lionrer Other [employer] Other 08-16-2021 12:45-0400 Body temperature 96.9 [degF] Oumar Haynes Other [employer] Other 08-16-2021 12:45-0400 Body weight 83.92 kg Oumar Lionrer Other [employer] Other 08-16-2021 12:45-0400 Diastolic blood pressure 78 mm[Hg] Oumar Lionquentin Other [employer] Other 08-16-2021 12:45-0400 SaO2% (BldA) [Mass fraction] 95 % Oumar Lionrerachid Other [employer] Other 08-16-2021 12:45-0400 Systolic blood pressure 110 mm[Hg] Oumar Lionrer Other [employer] Other Encounters Encounter Date Encounter Type Care Provider Facility Start: 05-22-2023 End: 05-22-2023 ambulatory CLAYTON MCFADDEN Not Available Start: 03-28-2023 Refill Clayton diez MD Work Phone: [facility] Comment on above: 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, with long-term current use of insulin (HCC) ([facility]) Start: 01-31-2023 Office outpatient vi sit 15 minutes Horace Jasso [facility] Vascular Surgery Start: 01-31-2023 End: 01-31-2023 ambulatory 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 Facility:[facility] Start: 01-31-2023 End: 01-31-2023 ambulatory MD Clayton Mcfadden Work Phone: [facility] [employer] Other Start: 01-31-2023 End: 01-31-2023 Patient encounter procedure MD Clayton Mcfadden Work Phone: [facility] Start: 01-15-2023 End: 01-15-2023 ambulatory CLAYTON MCFADDEN Not Available Start: 12-01-2022 End: 12-01-2022 ambulatory CLAYTON MCFADDEN [facility] Start: 10-03-2022 End: 10-03-2022 ambulatory CLAYTON [facility] Start: 08-28-2022 End: 08-29-2022 ambulatory CLYATON MCFADDEN [facility] Start: 08-09-2022 End: 08-10-2022 ambulatory CLAYTON MCFADDEN [facility] Start: 08-09-2022 End: 08-09-2022 Subsequent hospital visit by physician Clayton Mcfadden MD Work Phone: [facility] Comment on above: Dysuria; Frequency of micturition Start: 07-03-2022 End: 07-04-2022 ambulatory ZOILA JAVED . Facility:[facility] Start: 06-26-2022 End: 06-27-2022 ambulatory ZOILA JAVED . Facility:[facility] Start: 06-14-2022 End: 06-15-2022 ambulatory CLAYTON [facility] Start: 04-24-2022 End: 05-18-2022 ambulatory THELMA BETTS Facility:[facility] Start: 04-19-2022 End: 04-19-[address] CLAYTON MCFADDEN . Facility:[facility] Start: 04-05-2022 End: 04-08-2022 Evaluation and management of inpatient GABRIELA DONALD . Facility:[facility] Start: 04-05-2022 End: 04-06-[address] CLAYTON MCFADDEN . Facility: Start: 03-30-2022 End: 06-29-2022 ambulatory UNKNOWN PROVIDER Facility:[facility] Start: 03-28-2022 End: 03-29-2022 ambulatory SHAIKH Matilde LAU Facility: Start: 03-27-2022 End: 03-27-2022 ambulatory [facility] Triage, Treat and Transport Start: 03-27-2022 End: 03-27-2022 Emergency department patient visit [facility] Emergency Triage, Treat and Transport Comment on above: Arrived Start: 03-02-2022 End: 03-03-[address] CLAYTON MCFADDEN . Facility:[facility] Start: 03-01-2022 End: 03-02-2022 ambulatory ERICA Miguel [facility] Start: 03-01-2022 End: 03-01-2022 Subsequent hospital visit by physician Clayton Mcfadden MD Work Phone: [facility] Comment on above: BPH with obstruction /lower urinary tract symptoms; Dysuria Start: 02-22-2022 ambulatory KONG Yangi ty:[facility] Start: 02-20-[address] CLAYTON MCFADDEN . Fac ility:[facility] Start: 02-06-2022 End: 02-07-[address] CLAYTON MCFADDEN . Facility: Start: 02-06-2022 End: 02-06-[address] CLAYTON MCFADDEN . Facility:[facility] Start: 02-01-2022 End: 02-02-[address] CLAYTON MCFADDEN . Facility:[facility] Start: 01-31-2022 End: 01-31-2022 ambulatory 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 Other [employer] Other Start: 01-31-2022 Follow-up encounter Yolette Rosenberg [facility] Surgery Start: 01-30-2022 End: 01-30-2022 ambulatory MD Clayton Mcfadden Work Phone: [facility] Work Phone: Start: 01-30-2022 End: 01-30-2022 Patient encounter procedure MD Clayton Mcfadden Work Phone: [facility] [place] Start: 11-23-2021 End: 11-24-2021 ambulatory KONG PEPE Facility:[facility] Start: 11-23-2021 End: 11-23-2021 Patient encounter procedure KONG PEPE [facility] Start: 09-21-2021 End: 09-22-[address] CLAYTON MCFADDEN . Facility: Start: 08-19-[address] CLAYTON MCFADDEN . Fac ility: Start: 08-16-2021 End: 08-16-2021 ambulatory Oumar Haynes Other [employer] Other Start: 08-16-2021 Office outpatient ne w 45 minutes Oumar Haynes [facility] Vascular Surgery Start: 08-03-2021 End: 08-04-[address] CLAYTON MCFADDEN . Facility: Procedures Date Procedure Procedure Detail Performing Clinician Start: 01-31-2023 US scan of aorta MD Sang Mcfadden Work Phone: Start: 03-02-[address] CLAYTON MCFADDEN . Comment on above: Performed By: #### P OCGLUC #### [facility] [address] [place] [address] Dr. Kerrie Stark Start: 03-01-2022 Urnls dip stick/tabl et reagent auto microscopy Erica Veras MD Work Phone: Start: 01-30-2022 Computed tomography angiography of abdominal and/or pelvic blood vessel MD Clayton Mcfadden Work Phone: Start: 12-24-2017 Cystoscopy KONG BRITO Start: 02-19-1977 H/O: vasectomy KONG PEPE Plan of Treatment Date Care Activity Detail Author Start: 01-16-2025 Glaucoma screening Diabetes: R etinopathy Screening [facility] Start: 05-22-2023 End: 05-22-2023 Patient encounter procedure 05/22/2023 11:00 AM EDT Office Visit [facility] [address] [facility] [place] [address] Clayton Mcfadden MD [address] [place] [address] [facility] Start: 01-23-2023 Hemoglobin A1c measurement Diabetes: Hemoglobin A1C [facility] Start: 09-20-2022 End: 09-20-2022 Patient encounter procedure 09/20/2022 Office Visit [facility] Start: 03-20-2022 End: 03-20-2022 Patient encounter procedure 03/20/2022 Procedure visit [facility] Start: 03-01-2022 Annual Wellness Visi t (AWV) Annual Wellness Visit (AWV) [facility] Start: 11-19-2021 Influenza vaccination Influenza Vacc ine (#1) [facility] Start: 09-19-2021 Influenza vaccination Flu vaccine (# 1) [facility] Start: 01-29-2021 COVID-19 Vaccine (4 - Booster for Pfizer series) COVID-19 Vaccine (4 - Booster for Pfizer series) [facility] Start: 02-18-2014 Shingles vaccine (2 of 3) Shingles vaccine (2 of 3) [facility] Start: 2005 Pneumococcal 65+ yea rs Vaccine (1 - PCV) Pneumococcal 65+ years Vaccine (1 - PCV) [facility] Start: 2005 Pneumococcal vaccination Pneumococcal Vaccine(s) (65+ yrs) (1 - PCV) [facility] Start: 1990 Shingles (RZV) Vacci ne (1 of 2) Shingles (RZV) Vaccine (1 of 2) [facility] Start: 1990 Shingles vaccine (1 of 2) Shingles vaccine (1 of 2) [facility] Start: 04-26-1959 DTaP/Tdap/Td vaccine (1 - Tdap) DTaP/Tdap/Td vaccine (1 - Tdap) [facility] Start: 1958 Tetanus + diphtheria + acellular pertussis vaccine (product) [facility] Start: 1952 Depression Screen Depression Screen [facility] Start: 1950 Lipid panel Lipids [facility] Start: 1940 COVID-19 Vaccine (#1) COVID-19 Vacci ne (#1) [facility] End: 03-01-2022 Culture, Urine [facility] Work Phone: Comment on above: 1 Occurrences starti ng 03/01/2022 until 03/01/2022 End: 08-09-2022 Culture, Urine [facility] Comment on above: 1 Occurrences starti ng 08/09/2022 until 08/09/2022 Immunizations Immunization Date Immunization Notes Care Provider [facility] 12-04-2022 Influenza, Seasonal, Quadrivalent, Adjuvanted Clayton Mcfadden MD Work Phone: [facility] 12-08-2021 influenza, injectabl e, quadrivalent, preservative free Clayton Mcfadden MD Work Phone: [facility] 12-08-2021 Influenza, Seasonal, Quadrivalent, Adjuvanted Clayton Mcfadden MD Work Phone: [facility] 12-04-2020 influenza, high dose seasonal, preservative-free Clayton Mcfadden MD Work Phone: [facility] 12-04-2020 Influenza, High-dose Seasonal, Quadrivalent, Preservative Free Clayton Mcfadden MD Work Phone: [facility] 11-29-2019 influenza, injectabl e, quadrivalent, preservative free Clayton Mcfadden MD Work Phone: [facility] 10-15-2019 influenza, high dose seasonal, preservative-free Clayton Mcfadden MD Work Phone: [facility] 11-07-2018 influenza, injectabl e, quadrivalent, preservative free Clayton Mcfadden MD Work Phone: [facility] 11-07-2018 Seasonal trivalent influenza vaccine, adjuvanted, preservative free Clayton Mcfadden MD Work Phone: [facility] 11-23-2017 influenza, high dose seasonal, preservative-free Clayton Mcfadden MD Work Phone: [facility] 11-23-2017 influenza, injectabl e, quadrivalent, preservative free Clayton Mcfadden MD Work Phone: [facility] 01-31-2017 pneumococcal conjuga te vaccine, 13 valent Clayton Mcfadden MD Work Phone: [facility] 01-19-2017 pneumococcal conjuga te vaccine, 13 valnazia Mcfadden MD Work Phone: [facility] 01-17-2017 influenza, high dose seasonal, preservative-free Clayton Mcfadden MD Work Phone: [facility] 01-12-2016 pneumococcal polysaccharide vaccine, 23 valent Clayton Mcfadden MD Work Phone: [facility] 12-16-2015 influenza, high dose seasonal, preservative-free Clayton Mcfadden MD Work Phone: [facility] 01-08-2015 influenza, injectabl e, quadrivalent, preservative free Clayton Mcfadden MD Work Phone: [facility] 01-08-2015 influenza, seasonal, injectable, preservative free Clayton Mcfadden MD Work Phone: [facility] 12-24-2013 zoster vaccine, live Clayton Mcfadden MD Work Phone: [facility] 08-06-2013 pneumococcal polysaccharide vaccine, 23 valent Clayton Mcfadden MD Work Phone: [facility] 12-23-2012 influenza, seasonal, injectable, preservative free Clayton Mcfadden MD Work Phone: [facility] Payers Date Payer Category Payer Unknown [id number] 2022 Unknown [id number] 2022 Unknown AARP AARP [id number] 2022-Present [address] [place] [address] [id number] 2010 Medicare MEDICARE MEDICAR E RAILROAD [id number] 2010-Present [employer]ATHER RAILRO[employer] MEDICARE [address] [address] [place] [address] Medicare [id number] 1959 Medicare [id number] [id number] 1959 Self-pay [id number] 1959 Self-pay [id number] 1959 Unknown [id number] 2.16.840.1.592766.19 1940 Unknown [id number] 2.16.840.1.126361.3.579.2.727 1940 Unknown [id number] 2.16.840.1.380659.3.579.2.727 1940 Unknown [id number] 2.16.840.1.263389.3.579.2.732 1940 Unknown [id number] 2.16.840.1.701983.3.579.2.593 1940 Unknown [id number] 2.16.840.1.957686.3.579.2.593 1940 Unknown [id number] 2.16.840.1.438733.3.579.2.593 1940 Unknown [id number] 2.16.840.1.695309.3.579.2.593 194 Unknown [id number] 2.16.840.1.576665.3.579.2.593 194 Unknown [id number] 2.16.840.1.020221.3.579.2.593 194 Unknown [id number] 2.16.840.1.836119.3.579.2.593 194 Unknown [id number] 2.16.840.1.359343.3.579.2.593 1940 Unknown [id number] 2.16.840.1.947707.3.579.2.593 1940 Unknown [id number] 2.16.840.1.589679.3.579.2.593 1940 Unknown [id number] 2.16.840.1.038874.3.579.2.593 1940 Unknown [id number] 2.16.840.1.588711.3.579.2.593 1940 Unknown [id number] 2.16.840.1.542909.3.579.2.593 1940 Unknown [id number] 2.16.840.1.391385.3.579.2.593 1940 Unknown [id number] 2.16.840.1.705194.3.579.2.593 1940 Unknown [id number] 2.16.840.1.141589.3.579.2.173 1940 Unknown [id number] 2.16.840.1.201477.3.579.2.173 1940 Unknown [id number] 2.16.840.1.490442.3.579.2.173 1940 Unknown [id number] 2.16.840.1.729425.3.579.2.173 1940 Unknown [id number] 2.16.840.1.145652.3.579.2.173 1940 Unknown [id number] 2.16.840.1.151012.3.579.2.173 1940 Unknown [id number] 2.16.840.1.304699.3.579.2.1259 1940 Unknown [id number] 2.16.840.1.529655.3.579.2.1259 Unknown [id number] 2.16.840.1.877989.3.579.2.531 Social History Date Type Detail Facility Start: 08-12-2022 End: 10-25-2022 Sex Assigned At [employer] Other Start: 05-12-2019 Tobacco smoking status Never smoked tobacco (finding) [facility] Start: 1940 Sex Assigned At Male [facility] Start: 03-01-2022 End: 08-12-2022 Tobacco smoking status MNIS Ex-smoker [employer] Phone: End: 02-19-1994 History of tobacco use Current smoker [employer] Phone: End: 02-19-1994 History of tobacco use Cigarette Smoker [employer] Phone: Start: 03-01-2022 Tobacco use and exposure Smokeless tobacco non-user [employer] Phone: Start: 03-01-2022 End: 01-15-2023 Alcohol intake Lifetime non-drinker (finding) [employer] Phone: Start: 1940 Sex Assigned At Not on file [employer] Phone: Tobacco smoking stat us [facility] Tobacco smoking consumption unknown [facility] Start: 08-12-2022 End: 09-06-2023 History of Social function [facility] Fear of Current or Ex-Partner Not on file [facility] Within the last year , have you been humiliated or emotionally abused in other ways by your partner or ex-partner? No [facility] Do you belong to any clubs or organizations such as sikhism groups, unions, fraternal or athletic groups, or school groups? Yes [facility] Are you now , , , , never or living with a partner? [facility] Do you feel stress - tense, restless, nervous, or anxious, or unable to sleep at night because your mind is troubled all the time - these days [OSQ] Only a little [facility] (I/We) worried wheth er (my/our) food would run out before (I/we) got money to buy more. DK or Refused [facility] Start: 08-12-2022 Education 13 [facility] Start: 08-12-2022 Tobacco Comment Stop smoking: >30 years. Last smoked: >10 years [facility] Start: 08-12-2022 Alcohol Comment Caffeine intake: 1-2 cups per day [facility] Medical Equipment Procedure Code Equipment Code Equipment Origin al Text Equipment Identifier Dates 1 each by Other route in the morning and 1 each at noon and 1 each in the evening and 1 each before bedtime. Use as instructed 4 times a day. Sliding scale to titrate blood sugars One [employer] Ultra Blue. [id number] Start: 03-23-2023 End: 06-21-2023 Functional Status Date Assessment Result Facility 11-23-2021 Functional Status N/A [facility] Clinical Notes 08-16-2021 to 01-31-2023 Note [...] were answered he understands agrees the plan. [employer] Other 02-16-2023 NoteEXAMINATION: XR CHEST 2 V [...] Electronically authenticated by: ULISSES FRANCO Date: 2022-04-06 08:00[facility]02-09-2023 History of Present illness Narrative* Horace Parra, DO - 03/30/2022 10:13 AM EST Images from the original note were not included. EMERGENCY TRIAGE, TREAT AND TRANSPORT (ET3) DOCUMENTATION OF TELEHEALTH VISIT Date / Time: 03/27/20220 Name: Chema Childs : 1940 SSN: (Not on file) EMS Agency: [facility] [x] Verbal consent obtained [] [...] but too weak to reposition himself. His adis is present and provides history as well [...] sepsis prompted prolonged discussion w/ pt andhis Adis about my serious concerns about his progressing illness and life threatening progression if he elected to stay home. Lab interpretation: blood glucose was within normal limits. Eventually after shared decision making, he agree to transport to ED. Disposition Supported by Telehealth Assessment: ET3 transport decisions: Transport to hospital EMS Disposition Reported: Same ET3 Encounter Completed by: Horace Parra DO documented in this [id number] Evaluation note* Encounter Date Diagnosis Assessment Notes [...] with this plan, and denies any questions. [employer] Other 10-05-2022 Hospital Discharge instructions Patient Education [...] prostate. Follow these instructions at home: Take nrio-mek-jcpwjvy and prescription medicines only as told by [...] 02/02/2001 Document Revised: 04/20/2018 Document Reviewed: 10/26/2016 [employer] Patient Education 2020 [employer]. Follow Up Care 11/01/2021 10:45:28 With:MY GALDAMEZ, KONG Brown, URL Address: [address] [place] [address] When:3 months [facility]28-[facility] Evaluation note* Encounter Date Diagnosis Assessment Notes Treatment Notes Treatment Clinical Notes Jul, Abdominal aortic aneurysm (AAA) 3.0 cm to 5.5 cm in diameter in male (ICD-10 - I71.4) 28 Jul, 2021 Other Aortic ulcer wi th small aneurysm Review of the images today [id number] ulcer of the infrarenal aorta that does [...] understand and all the questions were answered. [employer] Other Evaluation + Plan note Future Appointments Appointment Date:02/22/2022 01:20:00 PM Scheduled Provider:KONG PEPE PA-C Location:[facility] Appointment Type:URO Office Visit [facility] evaluation noteNo assessment information available [facility] Work Phone: Evaluation note* Diagnosis BPH with obstruction/lower urinary tract symptoms Hypertrophy of prostate with urinary obstruction and other lower urinary tract symptoms (LUTS) Dysuria documented in this encounter [facility] [employer] Work Phone: evalyhkkxa note* Diagnosis Fall, initial encounter- Primary Shortness of breath Tachycardia Tachycardia, unspecified [facility] Diagnosis Dysuria Frequency of micturition Urinary frequency documented in this encounter [facility] note* Diagnosis Type 2 diabetes mellitus with stage 3a chronic kidney disease, with long-term current use of insulin (HCC) ([facility]) documented [facility] this encounter [facility] Narrative - Reported* Type Description Date Medical History high cholestrol Medical History high blood pressure Medical History acid reflux Surgical History hemorrhoidectomy Hospitalization History acid reflux - observatio n [employer] Other History general Narrative - Reported* Type Description Date Medical History high cholestrol Medical History high blood pressure Medical History acid reflux Surgical History hemorrhoidectomy Surgical History Laser Surgery on prostate Hospitalization History acid reflux - observatio n [employer] Other Hospital course Narrative No data available for this section [facility] progress note No data available for this section [facility] Summary Purpose Family History No Family [...] and content) DATE CREATED AUTHOR 08/12/2021 [facility] dical Specialist DATE CREATED AUTHOR AUTHOR'S ORGANIZ ATION 03/15/2022 [facility] DATE CREATED AUTHOR AUTHOR'S ORGANIZ ATION 07/01/2022 [facility] DATE CREATED AUTHOR AUTHOR'S ORGANIZ ATION 07/04/2022 [facility] DATE CREATED AUTHOR AUTHOR'S ORGANIZ ATION 12/02/2022 [facility] DATE CREATED AUTHOR AUTHOR'S ORGANIZ ATION 02/24/2023 [facility] DATE CREATED AUTHOR AUTHOR'S ORGANIZ ATION 05/23/2023 [facility] dical Specialists EPIC REASON FOR VISIT (unrecogniz ed section and [...] Active Oumar Haynes MD Attending Provider Active Technical Sales Support Specialist Relationship Specialty Start Date End Date Clayton Mcfadden MD [address] [place] [address] PCP - General 03/01/22 Technical Sales Support Specialist Relationship Specialty Start Date End Date Clayton Mcfadden MD [address] [place] [address] PCP - General 03/01/22 Technical Sales Support Specialist Relationship Specialty Start Date End Date Clayton Mcfadden MD [address] [place] [address] PCP - ACO Reach 07/13/22 Clayton Mcfadden MD [address] [place] [address] PCP - General Family Medicine 08/03/22 Briseida Paez, PATRIC Registered Nurse Family Medicine 03/16/23 Goals (unrecognized [...] BE BASED ON THE PRIMARY CLINICAL RECORDS. [facility] [employer] [facility]. provides no warranty or guarantee of the accuracy or completeness of information in this document.
[2023-11-06 09:16] LABS: Estimated Average Glucose 117 mg/dL; Glycohemoglobin A1C 5.7 % (4.5-6.2)
== END 2023-11-06 08:43 | disposition home or self-care (01) ==
LOC: LAB 08:43
PROVIDERS: PCP Internal Medicine; Visit Provider Family Medicine
DX: E11.22 Type 2 diabetes mellitus with diabetic chronic kidney disease (principal); N18.31 Chronic kidney disease, stage 3a; Z79.4 Long term (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 of insulin
CPT/HCPCS: 36415; 83036

== ENCOUNTER 2023-11-16 07:07 | Outpatient (RCR) | payer MEDICARE, SELFPAY ==
--- NOTE | 2023-08-07 11:27 | CR1_ITS ---
The 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
--- NOTE | 2023-08-08 | CR1_ITS ---
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
--- NOTE | 2023-09-03 14:59 | CR1_ITS ---
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
--- NOTE | 2023-10-04 08:33 | CR1_ITS ---
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
--- NOTE | 2023-11-05 14:48 | CR1_ITS ---
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
--- NOTE | 2023-11-16 14:36 | CR1_ITS ---
[facility] Test Date: 2023-11-16 Pat Name: CHEMA ALTMAN Department: Room: - Gender: Male Hat Former: : 1940 Requested By: Michael Whitfield Order Number: [id number] David MD: LONDON JEONG Interpretive Statements Session Date: Electronically Signed On 11-16-2023 19:02:25 EDT by LONDON JEONG
== END 2023-11-16 14:37 | disposition home or self-care (01) ==
LOC: CR 07:07
PROVIDERS: PCP Family Medicine; Visit Provider Internal Medicine
DX: J43.2 Centrilobular emphysema (principal); J96.00 Acute respiratory failure, unspecified whether with hypoxia or hypercapnia
CPT/HCPCS: 94625; G0239

== ENCOUNTER 2024-01-02 19:51 | Outpatient (OUT) | payer MEDICARE, SELFPAY ==
--- OUTSIDE RECORDS SUMMARY | 2024-01-02 19:56 | XMS_ITS | CCD ---
Author Organization [facility] Care Team Providers Care Die Technician Name Role Phone Oumar Haynes Unavailable CLAYTON MCFADDEN Primary Care Physician [phone] MD Clayton Mcfadden Primary Care Provider MD Oumar Haynes Attending Provider Clayton Mcfadden [...] SOSA ., DR THELMA Brown Admitting Unavailable SCRANTON, DR ULISSES Ivey Consulting Unavailable SHAIKH Matilde [...] DR KAPADIA Admrosi Unavailable HEMEYER ., DR CLAYTON Fortune Unavailable [...] Unavailable Hemeyer Clayton GARCÍA Primary Care Provider [phone] CLAYTON MCFADDEN Primary Care Unavailable SUZY HUNTER Referring Unavailable ERICA VERAS Referring Unavailable HEMECLAYTON SALEH Primary Care Unavailable HEMEYERCLAYTON Primary Care Unavailable TRISTON GONSALVES Referring Unavailable HEMECLAYTON SALEH Primary Care Unavailable ERICA VERAS Admitting Unavailable ERICA VERAS Attending Unavailable HEMECLAYTON SALEH Primary Care Unavailable TRISTON GONSALVES Referring Unavailable HEMEYERCLAYTON Primary Care Unavailable ERICA VERAS Referring Unavailable Hemeyer, MD Edward J Primary Care Provider [phone] SHELBY Duff Attending Provider Horace Jasso Unavailable [phone] 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 Attending Unavailable 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 Admitting Unavailable Clayton Mcfadden Primary Care Unavailable Clayton Mcfadden MD Unavailable [phone] Clayton Mcfadden MD Primary Care Provider [phone] Briseida Paez RN Unavailable Unavailable CLAYTON MCFADDEN Attending Unavailable CLAYTON MCFADDEN Attending Unavailable CLAYTON MCFADDEN Attending Unavailable CLAYTON MCFADDEN Attending Unavailable Clayton Mcfadden MD Unavailable Clayton Mcfadden MD Primary Care Provider Briseida Paez RN Unavailable Allergies Allergy Classification Reported Allergen(s) Allergy Type Date of Onset Reaction(s) Facility (6 sources) Sulfamethoxazole / Trimethoprim; Translations: [sulfamethoxazole-tr imethoprim] Drug Allergy 3 Weal (disorder), Rash [facility] (2 sources) Tetracycline; Translations: [tetracycline] Drug Allergy Finding reported by subject or history provider (finding) [facility] (5 sources) Erythromycin Drug Allergy 8 Nausea And Vomiting [facility] (5 sources) levoFLOXacin Drug Allergy 3 Diarrhea [facility] Work Phone: (1 source) Sulfamethoxazole / Trimethoprim Drug Allergy [facility] (3 sources) metFORMIN Drug Allergy 3 [facility] (3 sources) Erythromycin Base Drug Allergy 3 Nausea Only [facility] Medications Current Medications Medication Drug Class(es) Dates Sig (Normalized) Sig (Original) [id number] 200 actuat albuterol 0.09 mg/actuat metered dose inhaler (6 sources) beta2-Adrenergic Agonist Start: 09-25-2022 take 2 puff(s) by inhalation every six hours for wheezing albuterol HFA 90 mcg/act inhaler Inhale 2 puffs every 6 (six) hours if needed for wheezing or shortness of breath. 09/25/2022 Active albuterol (2.5 M G/3ML) 0.083% nebulizer solution Take 2.5 mg by nebulization every 8 (eight) hours if needed for wheezing. Active Allergy 25 MG (3 sources) take 1 capsule by mouth once daily Allergy 25 MG 1 capsule Orally Once a day Active allopurinol 100 mg oral tablet (9 sources) Xanthine Oxidase Inhibitor Start: End: take 1 tablet by mouth once daily allopurinol (Zyloprim) 100 MG tablet Indications: Hyperuricemia Take 1 tablet (100 mg) by mouth Daily 90 tablet 1 11/12/2023 05/10/2024 Active Start: 04-20-2022 End: 04-23-2023 take 1 tablet [...] 0 Active aspirin 81 mg oral tablet (8 sources) Platelet Aggregation Inhibitor, Nonsteroidal Anti-inflammatory Drug Start: 05-12-2019 take 1 mg by mouth once daily aspirin 81 mg oral tablet mg tab(s), Oral, Daily, Refills(s) 0 Start Date: 05/12/19 Status: Ordered take 1 tablet by mouth in the mo rning aspirin 81 MG EC tablet Take 81 mg by mouth in the morning. Active atorvastatin 20 mg oral tablet (8 sources) HMG-CoA Reductase Inhibitor Start: 11-12-2023 End: 05-10-2024 take 1 tablet by mouth in the evening atorvastatin (Lipitor) 20 MG tablet Indications: Mixed hyperlipidemia (CMS/HCC) Take 1 tablet (20 mg) by mouth in the evening 90 tablet 1 11/12/2023 05/10/2024 Active Start: 04-20-2022 End: 04-23-2023 take 1 tablet [...] 0 Active Bioflavonoid Products (REAL C PO) (4 sources) take 500 mg by mouth once daily Bioflavonoid Products (REAL C PO) Take 500 mg by mouth Daily Active Bioflavonoid Pro ducts (REAL C PO) Take by mouth 0 Active brimonidine tartrate 2 mg/ml ophthalmic solution (5 sources) alpha-Adrenergic Agonist take 1 drop(s) into the eye(s) in the morning brimonidine (AlphaGAN P) 0.2 % ophthalmic solution Administer 1 drop into the right eye in the morning and 1 drop before bedtime. Active take 1 drop(s) into the eye(s) three times daily brimonidine (ALPHAGAN) 0.2 % ophthalmic solution 1 drop 3 times daily 0 Active 120 actuat budesonide 0.16 mg/actuat / formoterol fumarate 0.0048 mg/actuat / glycopyrrolate 0.009 mg/actuat metered dose inhaler (2 sources) Corticosteroid, beta2-Adrenergic Agonist Start: 08-01-2023 take 2 puff(s) by inhalation in the morning Breztri Aerosphere 160-9-4.8 MCG/ACT aerosol Inhale 2 puffs in the morning and 2 puffs before bedtime. 08/01/2023 Active carboxymethylcellulose sodium 5 mg/ml ophthalmic solution (2 sources) Carboxymethylcel lulose Sodium (EYE DROPS) 0.5 % SOLN Apply to eye 0 Active doxycycline hyclate 100 mg oral capsule (1 source) Tetracycline-clas s Drug Doxycycline Hyclate 100 MG TAKE 1 CAPSULE ORALLY TWO TIMES DAILY 7 DAYS Oral for 7 Days Active Ecotrin Low Strength 81 MG (1 source) take 1 tablet by mouth once daily Ecotrin Low Strength 81 MG 1 tablet Orally Once a day for 30 day(s) Active 120 actuat formoterol fumarate 0.0048 mg/actuat / glycopyrrolate 0.009 mg/actuat metered dose inhaler (3 sources) beta2-Adrenergic Agonist Start: 09-29-2022 take 2 puff(s) by inhalation in the morning Bevespi Aerosphere 9-4.8 MCG/ACT aerosol Inhale 2 puffs in the morning and 2 puffs before bedtime. 0 09/29/2022 Active glycopyrrolate-f ormoterol (BEVESPI) 9-4.8 MCG/ACT AERO Inhale 2 puffs into the lungs 2 times daily 0 Active 3 ml insulin aspart, human 100 unt/ml pen injector (4 sources) Insulin Analog Start: 11-12-2023 insulin aspart , with niacinamide, (Fiasp FlexTouch) 100 UNIT/ML injection Indications: Type 2 diabetes mellitus with stage 3a chronic kidney disease, with long-term current use of insulin (HCC) ([facility]/HCC) Sliding scale 3 times daily with meals; 141-200=3u, 201-250=5u, 251-300=8u, >300=12u 15 mL 3 11/12/2023 Active Start: 01-15-2023 insulin aspart (NovoLOG) 100 UNIT/ML injection Indications: Type 2 diabetes mellitus with stage 3a chronic kidney disease, with long-term current use of insulin (HCC) ([facility]/HCC) Sliding scale 3 times daily with meals; [...] 12/08/2007 Active latanoprost 0.05 mg/ml ophthalmic solution (3 sources) Prostaglandin Analog take 1 drop(s) into the eye(s) at bedtime latanoprost (Xalatan) 0.005 % ophthalmic solution Administer 1 drop into both eyes at bedtime. Active levoFLOXacin 500 mg oral tablet (1 source) Quinolone Antimicrobial Start: 11-23-2021 End: 12-21-2021 take 1 tablet by mouth every twenty-four hours Levaquin 500 mg Tab 500 mg = 1 tab(s), Oral, q24hr, X 4 week(s), # 28 tab(s), Refills(s) 0, Pharmacy: [facility]/pharmacy #[id number], 180, cm, 11/23/21 10:01:00 EDT, Height/Length Dosing, 84, kg, 11/23/21 10:01:00 EDT, Weight Dosing Start Date: 11/23/21 Stop Date: 12/21/21 Status: Ordered levothyroxine sodium 0.088 mg oral tablet (6 sources) l-Thyroxine Start: 01-15-2023 End: 07-14-2023 take 1 tablet by mouth before mealtime levothyroxine (Synthroid, Levoxyl) 88 MCG tablet Indications: Acquired hypothyroidism (CMS/HCC) Take 1 tablet (88 mcg) by mouth in the morning. Take before meals. 90 tablet 1 05/22/2023 Active Start: 11-23-2021 take 1 capsule by mo [facility] once daily levothyroxine 88 mcg (0.088 mg) oral capsule 88 mcg = 1 cap(s), Oral, Daily, # 30 cap(s), Refills(s) 0 Start Date: 11/23/21 Status: Or[facility] take 1 [facility] daily levothyroxine (SYNTHROID) 88 MCG tablet Take 1 tablet by mouth Daily 0 Active losartan potassium 50 mg oral tablet (10 sources) Angiotensin 2 Receptor [place] Start: 11-12-2023 End: 05-10-2024 take 1 tablet by mouth once daily losartan (Cozaar) 50 MG tablet Indications: Benign essential hypertension (CMS/HCC) Take 1 tablet (50 mg) by mouth Daily 90 tablet 1 11/12/2023 05/10/2024 Active Start: 11-23-2021 End: 04-23-2023 take 1 tablet [...] by mouth in the morning. 0 Active magnesium oxide 400 mg oral tablet (3 sources) Start: 05-24-2023 End: 05-23-2024 take 1 tablet by mouth once daily magnesium oxide (Mag-Ox) 400 mg tablet Indications: Hypernatremia Take 1 tablet (400 mg) by mouth Daily 90 tablet 3 05/24/2023 05/23/2024 Active Start: 03-07-2023 magnesium oxid e (Mag-Ox) 400 [...] hydrochloride 750 mg extended release oral tablet (9 sources) Biguanide Start: 11-12-2023 End: 05-10-2024 take 1 tablet by mouth every twenty-four hours at mealtime metFORMIN XR (Glucophage-XR) 750 MG 24 hr tablet Indications: Type 2 diabetes mellitus with stage 3a chronic kidney disease, with long-term current use of insulin (HCC) (CMS/HCC) Take 1 tablet (750 mg) by mouth in the evening. Take with meals 90 tablet 1 11/12/2023 05/10/2024 Active Start: 10-25-2022 End: 04-23-2023 take 1 tablet [...] Active Multiple Vitamins-Minerals (Multi For Him) tablet (3 sources) take 1 tablet by yuan th in the morning Multiple Vitamins-Minerals (Multi For Him) tablet Take 1 tablet by mouth in the morning. Active take 1 tablet by mouth in the mo rning Multiple Vitamins-Minerals (Multi For Him) tablet Take 1 tablet by mouth in the morning. 0 Active omeprazole 40 mg delayed release oral capsule (9 sources) Proton Pump Inhibitor Start: 01-15-2023 End: 07-14-2023 take 1 capsule by mouth before mealtime omeprazole (PriLOSEC) [address] capsule Indications: Gastroesophageal reflux disease without esophagitis Take 1 capsule (40 mg) by mouth in the morning. Take before meals. 90 capsule 1 05/22/2023 Active Start: 05-12-2019 omeprazole Ora l, Daily, Refills(s) 0 Start Date: 05/12/19 Status: Ordered take 1 capsule by mo [facility] every twenty-four hours Omeprazole 20 MG 1 capsule Orally Once a day for 30 day(s) Active take 40 mg by mouth once daily O MEPRAZOLE PO Take 40 mg by mouth daily 0 Active Oxygen (3 sources) oxygen (O2) gas Inhale 3 L/min at bedtime via nasal canula Active oxygen (O2) gas Inhale 2 L/min at bedtime via nasal canula 0 Active polyethylene glycol 3350 46192 mg powder for oral solution (2 sources) Osmotic Laxative polyethylene gl ycol, PEG, 3350 (Glycolax) 17 GM/SCOOP powder Indications: Constipation Take 17 g by mouth Daily Active polymyxin b 75470 unt/ml / trimethoprim 1 mg/ml ophthalmic solution (2 sources) Dihydrofolate Reductase Inhibitor Antibacterial, Polymyxin-class Antibacterial Start: 12-08-19 08 take 1 drop(s) into the eye(s) every four hours trimethoprim-polymyx in b (POLYTRIM) 37490-8.1 UNIT/ML-% ophthalmic solution Apply 1 drop to eye every 4 hours 0 12/08/2007 Active Probiotic Product (PROBIOTIC-10 PO) (1 source) Probiotic Produc t (PROBIOTIC-10 PO) Take by mouth 0 Active Ramipril (2 sources) Angiotensin Converting Enzyme Inhibitor Ramipril (ALTACE PO) Take by mouth 0 Active sodium chloride 9 mg/ml inhalation solution (3 sources) Start: 02-27-19 sodium chloride 0.9 % nebulizer solution Take 3 mL by nebulization if needed 02/27/2023 Active tamsulosin hydrochloride 0.4 mg oral [...] 12 hr timolol 5 mg/ml ophthalmic solution (5 sources) beta-Adrenergic [place] take 1 drop(s) into the eye(s) in the morning timolol (Timoptic) 0.5 % ophthalmic solution Administer 1 drop into both eyes in the morning and 1 drop before bedtime. Active take 1-2 drop(s) int o the eye(s) twice daily timolol (BETIMOL) 0.25 % ophthalmic solution 1-2 drops 2 times daily 0 Active vitamin b12 1 mg oral tablet (4 sources) Vitamin B12 cyanocobalamin ( Vitamin B-12) 1000 MCG tablet Take 2,500 mcg by mouth Daily Active Cyanocobalamin ( VITAMIN B 12) 100 MCG LOZG Take by mouth 0 Active Completed/Discontinued Medications Medication Drug Class(es) Dates Sig (Normalized) Sig (Original) FIBER COMPLETE PO (3 sources) take 1 tablet by yuan th in the morning FIBER COMPLETE PO Take 1 tablet by mouth in the morning. Active take 1 tablet by mouth in the mo rning FIBER COMPLETE PO Take 1 tablet by [...] Episodic/Chronic Aortic; peripheral; and visceral artery aneurysms (9 sources) Abdominal aortic aneurysm 3.0 to 5.5 centimeters in male; Translations: [Abdominal aortic aneurysm, without rupture] Onset: 08-16-2021 Resolved: 08-16-2021 Chronic Cardiac dysrhythmias (1 source) Tachycardia; Translations: [Tachycardia, unspecified] Episodic Chronic kidney disease (3 sources) Chronic kidney disease stage 3A ; Translations: [Stage 3a chronic kidney disease (HCC)] Onset: 08-03-2022 08-03-2022 Chronic Chronic kidney disease (1 source) Chronic kidney disease; Translations: [CHRONIC KIDNEY DISEASE STAGE 3A] Onset: 08-05-2021 Chronic obstructive pulmonary disease and bronchiectasis (11 sources) Emphysema, unspecified; Translations: [Chronic obstructive pulmonary disease with (acute) exacerbation] Onset: 04-03-2022 Resolved: 09-25-2022 08-03-2022 Chronic Coronary atherosclerosis and other heart disease (4 sources) Atherosclerotic heart disease of [place] coronary artery without angina pectoris; Translations: [Coronary atherosclerosis] Onset: 05-03-2022 08-03-2022 Chronic Diabetes mellitus with complications (9 sources) Type 2 diabetes mellitus with diabetic chronic kidney disease; Translations: [Insulin treated type 2 diabetes mellitus] Onset: 02-06-2022 Chronic Diabetes mellitus without complication (1 source) Type 2 diabetes mellitus without complications; Translations: [TYPE 2 DM WITHOUT COMPLICATIONS] Onset: 05-03-2022 Chronic Disorders of lipid metabolism (9 sources) Hyperlipidemia, unspecified; Translations: [Pure hypercholesterolemia, unspecified] Onset: 02-01-2022 Chronic E Codes: Adverse effects of medical drugs (1 source) Adverse effect of insulin and oral hypoglycemic [antidiabetic] drugs, initial encounter; Translations: [ADVERS EFF INSULIN ORAL HG RX INIT] Onset: 05-03-2022 Episodic E Codes: Fall (1 source) Fall; Translations: [Unspecified fall, initial encounter] Episodic Esophageal disorders (4 sources) Gastroesophageal reflux disease; Translations: [Gastroesophageal reflux disease without esophagitis] Onset: 08-03-2022 05-12-2019 Chronic Essential hypertension (5 sources) Hypertensive disorder; Translations: [Essential (primary) hypertension] Onset: 05-03-2022 05-12-2019 Chronic Genitourinary symptoms and ill-defined conditions (2 sources) Urge incontinence; Translations: [Urge incontinence] Onset: 12-01-2022 Chronic Glaucoma (13 sources) Glaucoma; Translations: [Bilateral primary open angle glaucoma] Onset: 08-06-2018 Resolved: 09-25-2022 05-12-2019 Chronic Gout and other crystal arthropathies (5 sources) Gout; Translations: [Chronic gout, unspecified, without tophus (tophi)] Onset: 04-23-2022 05-12-2019 Chronic Hepatitis (3 sources) Nonalcoholic steatohepatitis; Translations: [Nonalcoholic steatohepatitis ([facility])] Onset: 08-03-2022 08-03-2022 Chronic Hyperplasia of prostate (14 sources) Benign prostatic hypertrophy with outflow obstruction; Translations: [Benign prostatic hyperplasia with lower urinary tract symptoms] Onset: 12-23-2015 Chronic Hypertension with complications and secondary hypertension (8 sources) Hypertensive chronic kidney disease with stage 1 through stage 4 chronic kidney disease, or unspecified chronic kidney disease; Translations: [Hypertensive renal disease] Onset: 02-05-2022 Chronic Inflammatory conditions of male genital organs (1 source) Prostatitis; Translations: [Inflammatory disease of prostate, unspecified] Onset: 11-23-2021 Episodic Malaise and fatigue (7 sources) Chronic fatigue, unspecified; Translations: [Fatigue] Onset: 09-21-2021 Chronic Menopausal disorders (1 source) Hormone replacement therapy; Translations: [HORMONE REPLACEMENT THERAPY] Onset: 05-03-2022 Episodic Occlusion or stenosis of precerebral arteries (6 sources) Atherosclerosis of left carotid artery; Translations: [Occlusion and stenosis of left carotid artery] Onset: 12-23-2015 Resolved: 09-25-2022 08-03-2022 Chronic Osteoarthritis (9 sources) Arthritis of left hip; Translations: [Unilateral primary osteoarthritis, left hip] Onset: 08-03-2022 08-03-2022 Chronic Other aftercare (1 source) [facility] (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 of aspirin; Translations: [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] Onset: 05-03-2022 Episodic Other aftercare (1 source) Other jail (current) drug therapy; Translations: [OTH WATERPROOFING SUPERVISOR CURRENT DRUG THERAPY] Onset: 05-03-2022 Episodic Other aftercare (1 source) incident commander (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 of oral hypoglycemic drugs; Translations: [NURSING HOME USE ORAL HYPOGLYCEMIC DX] Onset: 05-03-2022 Episodic Other connective tissue disease (5 sources) Muscle weakness (generalized); Translations: [MUSCLE WEAKNESS GENERALIZED] Onset: 04-24-2022 Episodic Other diseases of bladder and urethra (3 sources) Overactive bladder; Translations: [Overactive bladder] Onset: 10-19-2022 10-25-2022 Chronic Other diseases of kidney and ureters (3 sources) Other obstructive and reflux uropathy; Translations: [Other obstructive and reflux uropathy] Onset: 03-01-2022 Episodic Other eye disorders (3 sources) Bilateral vitreous degeneration of eyes; Translations: [Vitreous degeneration, bilateral] Onset: 06-09-2015 08-03-2022 Chronic Other lower respiratory disease (3 sources) Interstitial lung disease; Translations: [Interstitial pulmonary disease, unspecified] Onset: 08-03-2022 08-03-2022 Chronic Other lower respiratory disease (4 sources) Other nonspecific abnormal finding of lung field; Translations: [OTH NONSPECIFIC ABN FIND LNG FIELD] Onset: 06-26-2022 Episodic Other male genital disorders (1 source) Impotence 05-12-2019 Chronic Other male genital disorders (3 sources) Erectile dysfunction co-occurrent and due to arterial insufficiency; Translations: [Erectile dysfunction due to arterial insufficiency] Onset: 08-03-2022 08-03-2022 Chronic Other nervous system disorders (1 source) Difficulty in walking, not elsewhere classified; Translations: [DIFFICULTY IN WALKING NEC] Onset: 04-24-2022 Chronic Other nutritional; endocrine; and metabolic disorders (3 sources) Hypomagnesemia; Translations: [Hypomagnesemia] Onset: 03-07-2023 03-07-2023 Chronic [...] 12-01-2022 Episodic Respiratory failure; insufficiency; arrest (adult) (5 sources) Acute and chronic respiratory failure with hypoxia; Translations: [Dependence on supplemental oxygen] Onset: 04-23-2022 08-03-2022 Chronic Respiratory failure; insufficiency; arrest (adult) (1 source) Acute respiratory failure with hypoxia; Translations: [ACUTE RESPIRATORY FAIL W/HYPOXIA] Onset: 05-03-2022 Episodic Retinal detachments; defects; vascular occlusion; and retinopathy (3 sources) Retinal disorder; Translations: [Unspecified retinal disorder] Onset: 08-03-2022 08-03-2022 Chronic Septicemia (except in labor) (4 sources) Sepsis, unspecified organism; Translations: [SEPSIS UNSPECIFIED ORGANISM] Onset: 04-19-2022 Episodic Spondylosis; intervertebral disc disorders; other back problems (2 sources) Acute low back pain; Translations: [Acute right-sided low back pain without sciatica] 12-17-2023 Episodic Thyroid disorders (4 sources) Hypothyroidism, unspecified; Translations: [Acquired hypothyroidism] Onset: [...] Date Documented Date Episodic/Chronic Biliary tract disease (3 sources) Biliary calculus; Translations: [Calculus of gallbladder without cholecystitis without obstruction] Onset: 08-03-2022 08-03-2022 Episodic Genitourinary symptoms and ill-defined conditions (8 sources) Dysuria; Translations: [Dysuria] Onset: 03-01-2022 Episodic Heart valve disorders (3 sources) Systolic murmur; Translations: [Cardiac murmur, unspecified] Onset: 08-03-2022 08-03-2022 Episodic Inflammation; infection of eye (except that caused by tuberculosis or sexually transmitteddisease) (3 sources) Blepharitis; Translations: [Squamous blepharitis unspecified eye, unspecified eyelid] Onset: 08-03-2022 08-03-2022 Episodic Nutritional deficiencies (3 sources) Moderate protein energy malnutrition; Translations: [Moderate protein-calorie malnutrition] Onset: 08-03-2022 Resolved: 09-25-2022 09-25-2022 Chronic Other aftercare (3 sources) Polypharmacy ; Translations: [Other long winder tender (current) drug therapy] Onset: 08-10-2019 09-25-2022 Episodic Other aftercare (2 sources) Long-term current use of inhaled steroid; Translations: [[facility] (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 of inhaled steroids] Onset: 09-12-2023 09-12-2023 Episodic Other connective tissue disease (3 sources) Muscle weakness; Translations: [Muscle weakness (generalized)] Onset: 04-08-2022 Resolved: 09-25-2022 09-25-2022 Episodic Other diseases of veins and lymphatics (3 sources) Vascular insufficiency; Translations: [Venous insufficiency (chronic) (peripheral)] [...] Episodic Other nutritional; endocrine; and metabolic disorders (3 sources) Hyperuricemia; Translations: [Hyperuricemia without signs of inflammatory arthritis and tophaceous disease] Onset: 08-03-2022 08-03-2022 Episodic Other nutritional; endocrine; and metabolic disorders (3 sources) Overweight; Translations: [Overweight] Onset: 08-03-2022 08-03-2022 Episodic Other screening for suspected conditions (not mental disorders or infectious disease) (4 sources) Encounter for screening for malignant neoplasm of prostate; Translations: [ENC SCREEN MALIG NEOPLASM PROSTATE] Onset: 03-02-2022 Episodic Other upper respiratory disease (3 sources) Bowing of vocal cord; Translations: [Other diseases of vocal cords] Onset: 08-19-2015 09-25-2022 Episodic Pleurisy; pneumothorax; pulmonary collapse (3 sources) Discoid atelectasis; Translations: [Atelectasis] Onset: 08-03-2022 08-03-2022 Episodic Screening and history of mental health and substance abuse codes (4 sources) Personal history of nicotine dependence; Translations: [Ex-smoker] Onset: 03-12-2015 09-25-2022 Episodic Unclassified (1 source) Abdominal aortic aneurysm (AAA) without rupture, unspecified part I71.40 Unclassified (2 sources) Onset: 06-25-2023 06-25-2023 Varicose veins of lower extremity (3 sources) Varicose veins of bilateral lower limbs; Translations: [Asymptomatic varicose veins of bilateral lower extremities] Onset: 08-03-2022 08-03-2022 Episodic Results Test Name Value Interpretation Reference Range Facility Urinalysis macro (dipstick) panel (U)on 12-17-2023 Bilirubin, UA Negative Negative - 4(70) +++ mg/dL [facility] Blood, UA Negative Negative - 50 Silver/mcL [facility] Clarity, UA Clear [facility] Color, UA Light Yellow [facility] Glucose, UA Negative Negative - 1999(110) ++++ mg/dL [facility] Interpretation and review of laboratory results Normal [facility] Ketones, UA Negative Negative - 160(16) ++++ mg/dL [facility] Leukocytes, UA Negative Negative - 500+++ Ava/mcL [facility] Nitrite, UA Negative Negative - Positive [facility] pH, UA 6 5 - 9 [facility] Protein, UA Negative Negative - 2000(20) ++++ mg/dL [facility] Spec Grav, UA 1.005 1 - 1.03 [facility] Urobilinogen, UA 0.2 0.2 - 12 mg/dL [facility] US aortaon 01-31-2023 US aorta [place] [address] Ultrasound Report Signed Patient: Chema Childs SR MR#: [id number] : 1940 Acct:[id number] Age/Sex: 82 / M ADM Date: 01/31/23 Loc: [facility] Room: Type: [facility] Attending Dr: 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 PUBLIC INFORMATION RELATIONS MANAGER-C Ordering Provider: 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 APRN Date of [...] Horace Jasso MD01/31/2023 11:09 AM Dictation Location: [id number] Tech: Elder Hoyt Transcribed By: GOYO 01/31/231108 Dictated By: Horace Jasso MD 01/31/231105 Signed By: 01/31/231108 [facility] Cult,Urineon 12-02-2022 Cult,Urine Specimen Description .CLEAN CATCH URINE Culture NO GROWTH Report Status FINAL 12/02/2022 [facility] Comment on above: Performed By: #### U #### [facility] [address] [place] [address] Distribution Operations Manager: Sandip Smith MD [facility] [address] [place], [place] [address] [place] [address] Distribution Operations Manager: Ulisses Gaines MD OPERATIVE REPORTon 3 OPERATIVE REPORT [address] [id number] OPERATIVE REPORT PATIENT NAME: CHEMA CHILDS : 1940 MED REC NO: [id number] ROOM: ACCOUNT NO: [id number] ADMIT DATE: 10/03/2022 PROVIDER: Erica Veras DATE OF PROCEDURE: 10/03/2022 SURGEON: Dr. Erica Veras. CHILD AND ADOLESCENT THERAPIST: None. PREOPERATIVE DIAGNOSES: 1. BPH with lower urinary tract symptoms. 2. Urinary frequency. 3. Urinary urgency. 4. Urinary weak stream. POSTOPERATIVE DIAGNOSES: 1. BPH with lower urinary tract symptoms. 2. Urinary frequency. 3. Urinary urgency. 4. Urinary weak stream. PROCEDURES PERFORMED: Photoselective vaporization of the prostate with GreenLight laser XPS. ANESTHESIA: General. COMPLICATIONS: None. ESTIMATED BLOOD LOSS: Minimal. SPECIMENS: None. PROSTHESIS: A 22-Beninese Gould catheter. DISPOSITION: Stable. FINDINGS: Trilobar hyperplasia of the prostate. INDICATIONS: This patient is an 82-year-old male with extensive lower urinary tract symptoms, here now for definitive therapy in the form of PVP GreenLight DESCRIPTION OF PROCEDURE: The patient was taken back to the operating room after informed consent including all risks, benefits, and alternatives were obtained. The patient was transferred from the [facility] onto the operating room table, where he was induced under general anesthesia, and given IV Ancef for preoperative antibiotic prophylaxis. To begin the case, he was prepped and draped in the normal sterile fashion, and placed in the dorsal lithotomy. He had a 24-Beninese sheath with a 30-degree lens passed through [...] then removed the scope and inserted a 22-Beninese three-way Gould catheter and hand irrigated to clear. He was then awoken from general anesthesia, transferred to the [facility], and taken to the PACU in satisfactory condition by Nursing and Anesthesia Teams. PLAN: The patient will be discharged home per PACU criterion and follow up with us in akt-bq-euvah days for Gould catheter removal. ERICA VERAS [email or web address] Doc#: [id number] CC: Normal [facility] Cult,Urineon 08-29-2022 Cult,Urine Specimen Description .CLEAN CATCH URINE Culture NO GROWTH Report Status FINAL 08/29/2022 Normal [facility] Comment on above: Performed By: #### U RC #### [id number] [place] [address] Distribution Operations Manager: Sandip Smith MD [facility] [address] [place] [address] [place] [address] Distribution Operations Manager: Ulisses Gaines MD Urinalysis w/ Microon 2022 Bacteria 1+ Abnormal NONE [facility] Comment on above: Performed By: #### U AMIC #### [facility] [address] [place] [address] Distribution Operations Manager: Ulisses Gaines MD Bilirubin, SemiQt,Ur Negative Normal NEG [facility] Comment on above: Performed By: #### U AMIC #### [address] [place], [place] [id number] Distribution Operations Manager: Ulisses Gaines MD Blood, Urine Negative Normal NEG [facility] Comment on above: Performed By: #### U AMIC #### [facility] [address] [place], [place] [id number] Distribution Operations Manager: Ulisses Gaines MD Clarity (U) Clear Normal CLEAR [facility] Comment on above: Performed By: #### U AMIC #### [facility] [address] [place], [place] [id number] Distribution Operations Manager: lUisses Gaines MD Color (U) Yellow Normal YEL [facility] Comment on above: Performed By: #### U AMIC #### [facility] [address] [place] [address] Dr. [place], [place] [id number] Distribution Operations Manager: Ulisses Gaines MD Epithelial cells LM Ql (Urine sed) 0 TO 2 Normal 0-5 [facility] Comment on above: Performed By: #### U AMIC #### [facility] [address] [place], [place] [id number] Distribution Operations Manager: Ulisses Gaines MD Glucose Ql (U) Negative Normal NEG [facility] Comment on above: Performed By: #### U AMIC #### [facility] [address] [place] [address] Dr. [place], [place] [id number] Distribution Operations Manager: Ulisses Gaines MD Ketones Ql (U) Negative Normal NEG [facility] Comment on above: Performed By: #### U AMIC #### [facility] [address] [place], [place] [id number] Distribution Operations Manager: Ulisses Gaines MD Leukocyte esterase Test strip Ql (U) Negative Normal NEG [facility] Comment on above: Performed By: #### U AMIC #### [facility] [address] [place], [place] [phone] Distribution Operations Manager: Ulisses Gaines MD Nitrite,Ur Negative Normal NEG [facility] Comment on above: Performed By: #### U AMIC #### [facility] [address] [place], [place] [id number] Distribution Operations Manager: Ulisses Gaines MD PH,Ur 6.0 Normal 5.0-9.0 [facility] Comment on above: Performed By: #### U AMIC #### [facility] [address] [place], [place] [phone] Distribution Operations Manager: Ulisses Gainse MD Protein Ql (U) Negative Normal NEG [facility] Comment on above: Performed By: #### U AMIC #### [address] [place], [place] [id number] Distribution Operations Manager: Ulisses Gaines MD Spec. [place],Ur 1.015 Normal 1.010-1.020 [facility] Comment on above: Performed By: #### U AMIC #### [facility] [address] [place] [address] Dr. [place], [place] [id number] Distribution Operations Manager: Ulisses Gaines MD Urine RBC's None Normal 0-2 [facility] Comment on above: Performed By: #### U AMIC #### [address] [place], [place] 1964183 Distribution Operations Manager: Ulisses Gaines MD Urine WBC's 0 TO 2 Normal 0-5 [facility] Comment on above: Performed By: #### U AMIC #### [facility] [address] [place] [address] Dr. [place], [place] [id number] Distribution Operations Manager: Ulisses Gaines MD Urobilinogen,Ur Normal Normal NORM [facility] Comment on above: Performed By: #### U AMIC #### [facility] [address] [place] [address] [place] [address] Distribution Operations Manager: Ulisses Gaines MD Cult,Urineon 08-10-2022 Cult,Urine Specimen Description .CLEAN CATCH URINE Culture NO GROWTH Report Status FINAL 08/10/2022 Normal [facility] Comment on above: Performed By: #### U RC #### [facility] [address] [place] [address] Distribution Operations Manager: Sandip Smith MD [facility] [address] [place] [address] Distribution Operations Manager: Ulisses Gaines MD HEMOGLOBINon 07-03-2022 Hemoglobin (Bld) [Mass/Vol] 13.6 g/dL Critically low 14.0-18.0 [facility] Comment on above: Performed By: #### P OCGLUC #### [facility] [address] [place], [place] [address] CHEST WO CONon [...] by: PAULINA BOWLES Date: 2022-06-26 16:34 Normal [facility] PULMONARY FUNCTION TESTon PULMONARY FUNCTION [...] oxygen. Clinical correlation is required. Normal [facility] Cult,Urineon 06-15-2022 Cult,Urine Specimen Description .CLEAN CATCH URINE Culture NO GROWTH Report Status FINAL 06/15/2022 Normal [facility] Comment on above: Performed By: #### U RC #### [facility] [address] [place] [address] Distribution Operations Manager: Sandip Smith MD [facility] [address] [facility] [place] [address] Distribution Operations Manager: Ulisses Gaines MD CBC AUTO DIFFon 04-19-2022 BASO # 0.0 103/ul Normal 0.0-0.1 [facility] Comment on above: Performed By: #### L ACT #### [facility] [address] [place] [address] Dr. Kerrie Stark Basophils/100 WBC (Bld) 0.2 % Normal 0.2-2.0 [facility] Comment on above: Performed By: #### L ACT #### [facility] [address] [place] [address] Dr. Kerrie Stark EO # 0.0 103/ul Normal 0.0-0.7 [facility] Comment on above: Performed By: #### L ACT #### [facility] [address] [place] [address] [address] Kerrie Stark Eosinophils/100 WBC (Bld) 0.2 % Critically low 0.9-7.0 [facility] Comment on above: Performed By: #### L ACT #### [facility] [address] [place] [address] Dr. Kerrie Stark Erythrocyte distribution width (RBC) [Ratio] 13.3 % Normal 11.0-15.0 [facility] Comment on above: Performed By: #### L ACT #### [facility] [address] [place] [address] Dr. Kerrie Stark Hematocrit (Bld) [Volume fraction] 38.8 % Critically low 42.0-54.0 [facility] Comment on above: Performed By: #### L ACT #### [facility] [address] [place] [address] Dr. Kerrie Stark Hemoglobin (Bld) [Mass/Vol] 13.1 g/dL Critically low 14.0-18.0 [facility] Comment on above: Performed By: #### L ACT #### [facility] [address] [place] [address] Dr. Kerrie Stark IG # 0.35 10e3/ul Critically high 0.00-0.03 [facility] Comment on above: Performed By: #### L ACT #### [facility] [address] [place] [address] Dr. Kerrie Stark IG % 2.6 % Critically high 0.0-0.5 [facility] Comment on above: Performed By: #### L ACT #### [facility] [address] [place] [address] Dr. Kerrie Stark LYMPH # 1.3 103/ul Normal 1.2-3.8 [facility] Comment on above: Performed By: #### L ACT #### [facility] [address] [place] [address] Dr. Kerrie Stark Lymphocytes/100 WBC (Bld) 9.7 % Critically low 20.5-60.0 [facility] Comment on above: Performed By: #### L ACT #### [facility] [address] [place] [address] [address] Kerrie Stark MANUAL DIFF REQ NO Normal [facility] Comment on above: Performed By: #### L ACT #### [facility] [address] [place] [address] [address] Kerrie Stark MCH (RBC) [Entitic mass] 32.8 pg Normal 25.9-34.0 [facility] Comment on above: Performed By: #### L ACT #### [facility] [address] [place] [address] [address] Kerrie Stark MCHC (RBC) [Mass/Vol] 33.8 g/dL Normal 29.9-35.2 [facility] Comment on above: Performed By: #### L ACT #### [facility] [address] [place] [address] Dr. Kerrie Stark MCV (RBC) [Entitic vol] 97.2 fL Critically high 80.0-94.0 [facility] Comment on above: Performed By: #### L ACT #### [facility] [address] [place] [address] Dr. Kerrie Stark MONO # 0.8 103/ul Normal 0.3-0.8 [facility] Comment on above: Performed By: #### L ACT #### [facility] [address] [place] [address] Dr. Kerrie Stark Monocytes/100 WBC (Bld) 5.9 % Normal 1.7-12.0 [facility] Comment on above: Performed By: #### L ACT #### [facility] [address] [place] [address] Dr. Kerrie Stark NEUT # 10.8 103/ul Critically high 1.4-6.5 [facility] Comment on above: Performed By: #### L ACT #### [facility] [address] [place] [address] Dr. Kerrie Stark Neutrophils/100 WBC (Bld) 81.4 % Critically high 43.0-75.0 [facility] Comment on above: Performed By: #### L ACT #### [facility] [address] [place] [address] [address] Kerrie Stark Platelet mean volume (Bld) [Entitic vol] 10.4 fL Normal 9.5-13.5 [facility] Comment on above: Performed By: #### L ACT #### [facility] [address] [place] [address] Dr. Kerrie Stark PLT 158 103/ul Normal 150-450 [facility] Comment on above: Performed By: #### L ACT #### [facility] [address] [place] [address] [address] Kerrie Stark RBC 3.99 106/ul Critically low 4.70-6.10 [facility] Comment on above: Performed By: #### L ACT #### [facility] [address] [place] [address] [address] Kerrie Stark WBC 13.2 103/ul Critically high 4.0-11.0 [facility] Comment on above: Performed By: #### L ACT #### [facility] [address] [place] [address] Dr. Kerrie Stark GLYCOHEMOGLOBIN A1Con 2022 ADA RECOMMENDATION SEE BELOW Normal [facility] Comment on above: Result Comment: ADA RECOMMENDED LIMIT 4.0 - 6.0 ADA THERAPEUTIC TARGET < 7.0 ACTION SUGGESTED > 7.0 Performed By: #### P OCGLUC #### [facility] [address] [place] [address] Dr. Kerrie Stark Glucose [Mass/Vol] 206 mg/dL Normal [facility] Comment on above: Performed By: #### P OCGLUC #### [facility] [address] [place] [address] Dr. Kerrie Stark HbA1c (Bld) [Mass fraction] 8.8 % Critically high 4.5-6.2 [facility] Comment on above: Performed By: #### P OCGLUC #### [facility] [address] [place] [address] Dr. Kerrie Stark LIPID PROFILEon 04-19-2022 CHOL-HDL RATIO NORM SEE BELOW Normal [facility] Comment on above: Result Comment: 3.3 - 4.4 LOW RISK 4.4 - 7.1 AVERAGE RISK 7.1 - 11.0 MODERATE RISK >11.0 HIGH RISK Performed By: #### D DIM #### [facility] [address] [place] [address] [address] Kerrie Stark Cholesterol [Mass/Vol] 134 mg/dL Normal <=200 [facility] Comment on above: Performed By: #### D DIM #### [facility] [address] [place] [address] [address] Kerrie Stark Cholesterol in HDL [Mass/Vol] 46 mg/dL Normal 40-60 [facility] Comment on above: Performed By: #### D DIM #### [facility] [address] [place] [address] [address] Kerrie Stark Cholesterol in LDL [Mass/Vol] 65.8 mg/dL Normal [facility] Comment on above: Performed By: #### D DIM #### [facility] [address] [place] [address] Dr. Kerrie Stark Cholesterol.total/Chol esterol in HDL [Mass ratio] 2.9 {ratio} Normal [facility] Comment on above: Performed By: #### D DIM #### [facility] [address] [place] [address] Dr. Kerrie Stark HDL NORMAL > or = 60 mg/dl - LOW CARDIOVASCULAR RISK <40 mg/dl - HIGH CARDIOVASCULAR RISK Normal [facility] Comment on above: Performed By: #### D DIM #### [facility] [address] [place] [address] Dr. Kerrie Stark LDL CALC NORMAL SEE BELOW Normal [facility] Comment on above: Result Comment: <100 mg/dl OPTIMAL 100 - 129 mg/dl NEAR OR ABOVE OPTIMAL 130 - 159 mg/dl BORDERLINE HIGH 160 - 189 mg/dl HIGH >190 mg/dl VERY HIGH Performed By: #### D DIM #### [facility] [address] [place] [address] Dr. Kerrie Stark Triglyceride [Mass/Vol] 111 mg/dL Normal <=150 [facility] Comment on above: Performed By: #### D DIM #### [facility] [address] [place] [address] Dr. Kerrie Stark VLDL CALC 22.2 mg/dL Normal [facility] Comment on above: Performed By: #### D DIM #### [facility] [address] [place] [address] Dr. Kerrie Stark PROF 14(COMP METB)on 023 Albumin [Mass/Vol] 2.6 g/dL Critically low 3.4-5.0 [facility] Comment on above: Performed By: #### D DIM #### [facility] [address] [place] [address] Dr. Kerrie Stark Albumin/Globulin [Mass ratio] 0.8 {ratio} Normal [facility] Comment on above: Performed By: #### D DIM #### [facility] [address] [place] [address] Dr. Kerrie Stark ALP [Catalytic activity/Vol] 49 U/L Normal 46-116 [facility] Comment on above: Performed By: #### D DIM #### [facility] [address] [place] [address] Dr. Kerrie Stark ALT [Catalytic activity/Vol] 27 U/L Normal 16-63 [facility] Comment on above: Performed By: #### D DIM #### [facility] [address] [place] [address] Dr. Kerrie Stark Anion gap [Moles/Vol] 12.1 mmol/L Normal [facility] Comment on above: Performed By: #### D DIM #### [facility] [address] [place] [address] Dr. Kerrie Stark AST [Catalytic activity/Vol] 19 U/L Normal 15-37 [facility] Comment on above: Performed By: #### D DIM #### [facility] [address] [place] [address] Dr. Kerrie Stark Bilirubin [Mass/Vol] 0.6 mg/dL Normal 0.2-1.0 [facility] Comment on above: Performed By: #### D DIM #### [facility] [address] [place] [address] Dr. Kerrie Stark Calcium [Mass/Vol] 9.0 mg/dL Normal 8.5-10.1 [facility] Comment on above: Performed By: #### D DIM #### [facility] [address] [place] [address] Dr. Kerrie Stark Chloride [Moles/Vol] 102 mmol/L Normal 98-107 [facility] Comment on above: Performed By: #### D DIM #### [facility] [address] [place] [address] Dr. Kerrie Stark CO2 [Moles/Vol] 27.0 mmol/L Normal 21.0-32.0 [facility] Comment on above: Performed By: #### D DIM #### [facility] [address] [place] [address] Dr. Kerrie Stark Creatinine [Mass/Vol] 0.90 mg/dL Normal 0.70-1.30 [facility] Comment on above: Performed By: #### D DIM #### [facility] [address] [place] [address] Dr. Kerrie Stark EGFR-AF [facility] >60 Normal >=60 [facility] Comment on above: Performed By: #### D DIM #### [facility] [address] [place] [address] Dr. Kerrie Stark EGFR-NON AF [facility] >60 Normal >=60 [facility] Comment on above: Performed By: #### D DIM #### [facility] [address] [place] [address] Dr. Kerrie Stark Globulin (S) [Mass/Vol] 3.2 g/dL Normal [facility] Comment on above: Performed By: #### D DIM #### [facility] [address] [place] [address] Dr. Kerrie Stark Glucose [Mass/Vol] 104 mg/dL Normal 74-106 [facility] Comment on above: Performed By: #### D DIM #### [facility] [address] [place] [address] Dr. Kerrie Stark Potassium [Moles/Vol] 4.1 mmol/L Normal 3.5-5.1 [facility] Comment on above: Performed By: #### D DIM #### [facility] [address] [place] [address] Dr. Kerrie Stark Protein [Mass/Vol] 5.8 g/dL Critically low 6.4-8.2 [facility] Comment on above: Performed By: #### D DIM #### [facility] [address] [place] [address] Dr. Kerrie Stark Sodium [Moles/Vol] 137 mmol/L Normal 136-145 [facility] Comment on above: Performed By: #### D DIM #### [facility] [address] [place] [address] Dr. Kerrie Stark Urea nitrogen [Mass/Vol] 31.0 mg/dL Critically high 7.0-18.0 [facility] Comment on above: Performed By: #### D DIM #### [facility] [address] [place] [address] Dr. Kerrie Stark Urea nitrogen/Creatinine [Mass ratio] 34.4 mg/mg Normal [facility] Comment on above: Performed By: #### D DIM #### [facility] [address] [place] [address] Dr. Kerrie Stark TSHon 04-19-2022 TSH 0.699 uIU/mL Normal 0.358-3.740 [facility] Comment on above: Performed By: #### D DIM #### [facility] [address] [place] [address] Dr. Kerrie Stark VITAMIN D 25 OHon 04-19-2022 VIT D 25-OH 53.9 ng/mL Normal [facility] Comment on above: Performed By: #### D DIM #### [facility] [address] [place] [address] Dr. Kerrie Stark VIT D RANGES SEE BELOW Normal [facility] Comment on above: Result Comment: <20 ng/mL Vit D deficient 20 - <30 ng/mL Vit D insufficient 30 - 100 ng/mL Vit D sufficient >100 ng/mL Potential Toxicity Performed By: #### D DIM #### [facility] [address] [place] [address] Dr. Kerrie Stark CBC W MANUAL DIFFon 04-08-19 23 ATYPICAL LYMPH # Normal [facility] Comment on above: Performed By: #### L ACT #### [facility] [address] [place] [address] Dr. Kerrie Stark ATYPICAL LYMPH % Normal [facility] Comment on above: Performed By: #### L ACT #### [facility] [address] [place] [address] Dr. Kerrie Stark BAND # 0.0 103/ul Normal 0.0-0.3 [facility] Comment on above: Performed By: #### L ACT #### [facility] [address] [place] [address] Dr. Kerrie Stark BAND % 0 % Normal 0-5 [facility] Comment on above: Performed By: #### L ACT #### [facility] [address] [place] [address] Dr. Kerrie Stark BASOM # 0.00 103/ul Normal 0.00-0.10 [facility] Comment on above: Performed By: #### L ACT #### [facility] [address] [place] [address] Dr. Kerrie Stark BASOM % 0.0 % Critically low 0.2-2.0 [facility] Comment on above: Performed By: #### L ACT #### [facility] [address] [place] [address] Dr. Kerrie Stark BLAST # Normal [facility] Comment on above: Performed By: #### L ACT #### [facility] [address] [place] [address] Dr. Kerrie Stark BLAST % Normal [facility] Comment on above: Performed By: #### L ACT #### [facility] [address] [place] [address] Dr. Kerrie Stark CORRECTED WBC Normal 4.0-11.0 [facility] Comment on above: Performed By: #### L ACT #### [facility] [address] [place] [address] Dr. Kerrie Stark EOS # 0.00 103/ul Normal 0.00-0.70 [facility] Comment on above: Performed By: #### L ACT #### [facility] [address] [place] [address] Dr. Kerrie Stark EOS% 0.0 % Critically low 0.9-7.0 [facility] Comment on above: Performed By: #### L ACT #### [facility] [address] [address] [address] Kerrie Stark HCT 36.7 % Critically low 42.0-54.0 [facility] Comment on above: Performed By: #### L ACT #### [facility] [address] [address] [address] Kerrie Stark HGB 12.5 g/dl Critically low 14.0-18.0 [facility] Comment on above: Performed By: #### L ACT #### [facility] [address] [address] [address] Kerrie Stark LYMPHM # 0.22 103/ul Critically low 1.20-3.80 [facility] Comment on above: Performed By: #### L ACT #### [facility] [address] [address] [address] Kerrie Stark LYMPHM% 2.0 % Critically low 20.5-60.0 [facility] Comment on above: Performed By: #### L ACT #### [facility] [address] [address] [address] Kerrie Stark MCH 32.6 pg Normal 25.9-34.0 [facility] Comment on above: Performed By: #### L ACT #### [facility] [address] [address] [address] Kerrie Stark MCHC 34.1 g/dl Normal 29.9-35.2 [facility] Comment on above: Performed By: #### L ACT #### [facility] [address] [place] [address] Dr. Kerrie Stark MCV 95.8 fL Critically high 80.0-94.0 [facility] Comment on above: Performed By: #### L ACT #### [facility] [address] [address] [address] Kerrie Stark METAMYELOCYTE # Normal [facility] Comment on above: Performed By: #### L ACT #### [facility] [address] [address] [address] Kerrie Stark METAMYELOCYTE % Normal [facility] Comment on above: Performed By: #### L ACT #### [facility] [address] [address] [address] Kerrie Stark MONOM# 0.34 103/ul Normal 0.30-0.80 [facility] Comment on above: Performed By: #### L ACT #### [facility] [address] [address] [address] Kerrie Stark MONOM% 3.0 % Normal 1.7-12.0 [facility] Comment on above: Performed By: #### L ACT #### [facility] [address] [place] [address] Dr. Kerrie Stark MPV 10.9 fL Normal 9.5-13.5 [facility] Comment on above: Performed By: #### L ACT #### [facility] [address] [place] [address] Dr. Kerrie Stark MYELOCYTE # 0.1 103/ul Normal [facility] Comment on above: Performed By: #### L ACT #### [facility] [address] [place] [address] Dr. Kerrie Stark MYELOCYTE % 1 % Normal [facility] Comment on above: Performed By: #### L ACT #### [facility] [address] [place] [address] Dr. Kerrie Stark NRBC Normal [facility] Comment on above: Performed By: #### L ACT #### [facility] [address] [place] [address] Dr. Kerrie Stark PLT 140 103/ul Critically low 150-450 [facility] Comment on above: Performed By: #### L ACT #### [facility] [address] [address] [address] Kerrie Stark RBC 3.83 106/ul Critically low 4.70-6.10 [facility] Comment on above: Performed By: #### L ACT #### [facility] [address] [address] [address] Kerrie Stark RDW 12.9 % Normal 11.0-15.0 [facility] Comment on above: Performed By: #### L ACT #### [facility] [address] [place], [place] [address] Dr. Kerrie Stark SEG # 10.53 103/ul Critically high 1.40-6.50 [facility] Comment on above: Performed By: #### L ACT #### [facility] [id number] Kerrie Stark SEG % 94.0 % Critically high 43.0-75.0 [facility] Comment on above: Performed By: #### L ACT #### [facility] [address] [address] [address] Kerrie Stark WBC 11.2 103/ul Critically high 4.0-11.0 [facility] Comment on above: Performed By: #### L ACT #### [facility] [address] [address] [address] Ker[facility] SARS-CoV-2 (COVID-19) RNA QUE+probe Ql (Unsp spec) Detected Abnormal NOT DETECTED [facility] Comment on above: Result Comment: This test is not yet approved or cleared by the [place] FDA. When there are no FDA-approved or cleared tests available, and other criteria are met, FDA can make tests available under an emergency access mechanism called an Emergency Use Authorization (EUA). The EUA for this test is supported by the [place] of Health and Human Service's declaration that [...] used). Performed By: #### L ACT #### [facility] [address] [address] [address] Kerrie Stark LACTATE/LACTIC ACIDon 2022 Lactate [Moles/Vol] 1.3 mmol/L Normal 0.4-1.9 [facility] Comment on above: Performed By: #### L ACT #### [facility] [address] [address] [address] Kerrie Stark POINT OF CARE GLUCOSEon 03-22 Glucose [Mass/Vol] 344 mg/dL Critically high [address] [place] [address] Comment on above: Performed By: #### L ACT #### [facility] [address] [address] [address] Kerrie Stark Glucose [Mass/Vol] 242 mg/dL Critically high [address] [place] [address] Comment on above: Performed By: #### P OCGLUC #### [facility] [address] [place] [address] Dr. Kerrie Stark PROCALCITONINon 04-08-2022 Procalcitonin 0.06 ng/mL Normal 0.00-0.08 [facility] Comment on above: Result Comment: . A [...] obtained. Performed By: #### D DIM #### [facility] [address] [place] [address] Dr. Kerrie Stark PROF 14(COMP METB)on 02-18-2 023 Albumin [Mass/Vol] 2.0 g/dL Critically low 3.4-5.0 [facility] Comment on above: Performed By: #### P OCGLUC #### [facility] [address] [address] [address] Kerrie Stark Albumin/Globulin [Mass ratio] 0.5 {ratio} Normal [facility] Comment on above: Performed By: #### P OCGLUC #### [facility] [address] [address] [address] Kerrie Stark ALP [Catalytic activity/Vol] 61 U/L Normal 46-116 [facility] Comment on above: Performed By: #### P OCGLUC #### [facility] [address] [address] [address] Kerrie Stark ALT [Catalytic activity/Vol] 33 U/L Normal 16-63 [facility] Comment on above: Performed By: #### P OCGLUC #### [facility] [address] [address] [address] Kerrie Stark Anion gap [Moles/Vol] 13.2 mmol/L Normal [facility] Comment on above: Performed By: #### P OCGLUC #### [facility] [address] [place] [address] Dr. Kerrie Stark AST [Catalytic activity/Vol] 27 U/L Normal 15-37 [facility] Comment on above: Performed By: #### P OCGLUC #### [facility] [address] [address] [address] eKrrie Stark Bilirubin [Mass/Vol] 0.3 mg/dL Normal 0.2-1.0 [facility] Comment on above: Performed By: #### P OCGLUC #### [facility] [address] [address] [address] Kerrie Stark Calcium [Mass/Vol] 8.7 mg/dL Normal 8.5-10.1 [facility] Comment on above: Performed By: #### P OCGLUC #### [facility] [address] [address] [address] Kerrie Stark Chloride [Moles/Vol] 102 mmol/L Normal 98-107 [facility] Comment on above: Performed By: #### P OCGLUC #### [facility] [address] [address] [address] Kerrie Stark CO2 [Moles/Vol] 22.0 mmol/L Normal 21.0-32.0 [facility] Comment on above: Performed By: #### P OCGLUC #### [facility] [address] [address] [address] Kerrie Strak Creatinine [Mass/Vol] 0.88 mg/dL Normal 0.70-1.30 [facility] Comment on above: Performed By: #### P OCGLUC #### [facility] [address] [address] [address] Kerrie Stark EGFR-AF [facility] >60 Normal >=60 [facility] Comment on above: Performed By: #### P OCGLUC #### [facility] [address] [address] [address] Kerrie Stark EGFR-NON AF [facility] >60 Normal >=60 [facility] Comment on above: Performed By: #### P OCGLUC #### [facility] [address] [address] [address] Kerrie Stark Globulin (S) [Mass/Vol] 3.7 g/dL Normal [facility] Comment on above: Performed By: #### P OCGLUC #### [facility] [address] [address] [address] Kerrie Stark Glucose [Mass/Vol] 266 mg/dL Critically high 74-106 [facility] Comment on above: Performed By: #### P OCGLUC #### [facility] [address] [address] [address] Kerrie Stark Potassium [Moles/Vol] 4.2 mmol/L Normal 3.5-5.1 [facility] Comment on above: Performed By: #### P OCGLUC #### [facility] [address] [address] [address] Kerrie Stark Protein [Mass/Vol] 5.7 g/dL Critically low 6.4-8.2 [facility] Comment on above: Performed By: #### P OCGLUC #### [facility] [address] [address] [address] Kerrie Stark Sodium [Moles/Vol] 133 mmol/L Critically low 136-145 [facility] Comment on above: Performed By: #### P OCGLUC #### [facility] [address] [place] [address] Dr. Kerrie Stark Urea nitrogen [Mass/Vol] 21.0 mg/dL Critically high 7.0-18.0 [facility] Comment on above: Performed By: #### P OCGLUC #### [facility] [address] [address] [address] Kerrie Stark Urea nitrogen/Creatinine [Mass ratio] 23.9 mg/mg Normal [facility] Comment on above: Performed By: #### P OCGLUC #### [facility] [address] [place] [address] Dr. Kerrie Stark CBC W MANUAL DIFFon 04-07-19 23 ATYPICAL LYMPH # 0.14 103/ul Normal [facility] Comment on above: Performed By: #### L ACT #### [facility] [address] [place] [address] Dr. Kerrie Stark ATYPICAL LYMPH % 1 % Normal [facility] Comment on above: Performed By: #### L ACT #### [facility] [address] [place] [address] Dr. Kerrie Stark BAND # 0.0 103/ul Normal 0.0-0.3 [facility] Comment on above: Performed By: #### L ACT #### [facility] [address] [place] [address] Dr. Kerrie Stark BAND % 0 % Normal 0-5 [facility] Comment on above: Performed By: #### L ACT #### [facility] [address] [place] [address] Dr. Kerrie Stark BASOM # 0.00 103/ul Normal 0.00-0.10 [facility] Comment on above: Performed By: #### L ACT #### [facility] [address] [place] [address] Dr. Kerrie Stark BASOM % 0.0 % Critically low 0.2-2.0 [facility] Comment on above: Performed By: #### L ACT #### [facility] [address] [address] [address] Kerrie Stark BLAST # Normal [facility] Comment on above: Performed By: #### L ACT #### [facility] [address] [address] [address] Kerrie Stark BLAST % Normal [facility] Comment on above: Performed By: #### L ACT #### [facility] [address] [place] [address] Dr. Kerrie Stark CORRECTED WBC Normal 4.0-11.0 [facility] Comment on above: Performed By: #### L ACT #### [facility] [address] [place] [address] Dr. Kerrie Stark EOS # 0.00 103/ul Normal 0.00-0.70 [facility] Comment on above: Performed By: #### L ACT #### [facility] [address] [place] [address] Dr. Kerrie Stark EOS% 0.0 % Critically low 0.9-7.0 [facility] Comment on above: Performed By: #### L ACT #### [facility] [address] [place] [address] Dr. Kerrie Stark HCT 35.9 % Critically low 42.0-54.0 [facility] Comment on above: Performed By: #### L ACT #### [facility] [address] [place] [address] Dr. Kerrie Stark HGB 12.0 g/dl Critically low 14.0-18.0 [facility] Comment on above: Performed By: #### L ACT #### [facility] [address] [place] [address] Dr. Kerrie Stark LYMPHM # 0.28 103/ul Critically low 1.20-3.80 [facility] Comment on above: Performed By: #### L ACT #### [facility] [address] [address] [address] Kerrie Stark LYMPHM% 2.0 % Critically low 20.5-60.0 [facility] Comment on above: Performed By: #### L ACT #### [facility] [address] [place] [address] Dr. Kerrie Stark MCH 32.6 pg Normal 25.9-34.0 [facility] Comment on above: Performed By: #### L ACT #### [facility] [address] [address] [address] Kerrie Stark MCHC 33.4 g/dl Normal 29.9-35.2 [facility] Comment on above: Performed By: #### L ACT #### [facility] [address] [place] [address] Dr. Kerrie Stark MCV 97.6 fL Critically high 80.0-94.0 [facility] Comment on above: Performed By: #### L ACT #### [facility] [address] [place] [address] Dr. Kerrie Stark METAMYELOCYTE # Normal [facility] Comment on above: Performed By: #### L ACT #### [facility] [address] [place] [address] Dr. Kerrie Stark METAMYELOCYTE % Normal [facility] Comment on above: Performed By: #### L ACT #### [facility] [address] [place] [address] Dr. Kerrie Stark MONOM# 0.00 103/ul Critically low 0.30-0.80 [facility] Comment on above: Performed By: #### L ACT #### [facility] [address] [place] [address] Dr. Kerrie Stark MONOM% 0.0 % Critically low 1.7-12.0 [facility] Comment on above: Performed By: #### L ACT #### [facility] [address] [place] [address] Dr. Kerrie Stark MPV 10.6 fL Normal 9.5-13.5 [facility] Comment on above: Performed By: #### L ACT #### [facility] [address] [place] [address] Dr. Kerrie Stark MYELOCYTE # Normal [facility] Comment on above: Performed By: #### L ACT #### [facility] [address] [place] [address] Dr. Kerrie Strak MYELOCYTE % Normal [facility] Comment on above: Performed By: #### L ACT #### [facility] [address] [place] [address] Dr. Kerrie Stark NRBC Normal [facility] Comment on above: Performed By: #### L ACT #### [facility] [address] [place] [address] Dr. Kerrie Stark PLT 125 103/ul Critically low 150-450 [facility] Comment on above: Performed By: #### L ACT #### [facility] [address] [place] [address] Dr. Kerrie Stark RBC 3.68 106/ul Critically low 4.70-6.10 [facility] Comment on above: Performed By: #### L ACT #### [facility] [address] [place] [address] Dr. Kerrie Stark RDW 13.2 % Normal 11.0-15.0 [facility] Comment on above: Performed By: #### L ACT #### [facility] [address] [place] [address] Dr. Kerrie Stark SEG # 13.77 103/ul Critically high 1.40-6.50 [facility] Comment on above: Performed By: #### L ACT #### [facility] [address] [place] [address] Dr. Kerrie Stark SEG % 97.0 % Critically high 43.0-75.0 [facility] Comment on above: Performed By: #### L ACT #### [facility] [address] [place] [address] Dr. Kerrie Stark TOXIC GRANULATION 2+ Normal [facility] Comment on above: Performed By: #### L ACT #### [facility] [address] [place] [address] Dr. Kerrie Stark WBC 14.2 103/ul Critically high 4.0-11.0 [facility] Comment on above: Performed By: #### L ACT #### [facility] [address] [place] [address] Dr. Kerrie Stark Covid-19 PCR ([facility])on 03-22 SARS-CoV-2 (COVID-19) RNA QUE+probe Ql (Unsp spec) Detected Abnormal NOT DETECTED [facility] Comment on above: Result Comment: This test is not yet approved or cleared by the [place] FDA. When there are no FDA-approved or cleared tests available, and other criteria are met, FDA can make tests available under an emergency access mechanism called an Emergency Use Authorization (EUA). The EUA for this test is supported by the [place] of Health and Human Service's declaration that [...] used). Performed By: #### L ACT #### [facility] [address] [place] [address] Dr. Kerrie Stark LACTATE/LACTIC ACIDon 2022 Lactate [Moles/Vol] 1.1 mmol/L Normal 0.4-1.9 [facility] Comment on above: Performed By: #### P OCGLUC #### [facility] [address] [place] [address] Dr. Kerrie Stark POINT OF CARE GLUCOSEon 03-22 Glucose [Mass/Vol] 316 mg/dL Critically high 74-106 [facility] Comment on above: Performed By: #### P OCGLUC #### [facility] [address] [place] [address] Dr. Kerrie Stark Glucose [Mass/Vol] 182 mg/dL Critically high 74-106 [facility] Comment on above: Performed By: #### P OCGLUC #### [facility] [address] [place] [address] Dr. Kerrie Stark Glucose [Mass/Vol] 318 mg/dL Critically high 74-106 [facility] Comment on above: Performed By: #### P OCGLUC #### [facility] [address] [place] [address] Dr. Kerrie Stark PROF 14(COMP METB)on 023 Albumin [Mass/Vol] 1.9 g/dL Critically low 3.4-5.0 [facility] Comment on above: Performed By: #### P OCGLUC #### [facility] [address] [place] [address] Dr. Kerrie Stark Albumin/Globulin [Mass ratio] 0.5 {ratio} Normal [facility] Comment on above: Performed By: #### P OCGLUC #### [facility] [address] [place] [address] Dr. Kerrie Stark ALP [Catalytic activity/Vol] 50 U/L Normal 46-116 [facility] Comment on above: Performed By: #### P OCGLUC #### [facility] [address] [place] [address] Dr. Kerrie Stark ALT [Catalytic activity/Vol] 24 U/L Normal 16-63 [facility] Comment on above: Performed By: #### P OCGLUC #### [facility] [address] [place] [address] Dr. Kerrie Stark Anion gap [Moles/Vol] 12.9 mmol/L Normal [facility] Comment on above: Performed By: #### P OCGLUC #### [facility] [address] [place] [address] Dr. Kerrie Stark AST [Catalytic activity/Vol] 19 U/L Normal 15-37 [facility] Comment on above: Performed By: #### P OCGLUC #### [facility] [address] [place] [address] Dr. Kerrie Stark Bilirubin [Mass/Vol] 0.3 mg/dL Normal 0.2-1.0 [facility] Comment on above: Performed By: #### P OCGLUC #### [facility] [address] [place] [address] Dr. Kerrie Stark Calcium [Mass/Vol] 8.5 mg/dL Normal 8.5-10.1 [facility] Comment on above: Performed By: #### P OCGLUC #### [facility] [address] [address] [address] Kerrie Stark Chloride [Moles/Vol] 103 mmol/L Normal 98-107 [facility] Comment on above: Performed By: #### P OCGLUC #### [facility] [address] [address] [address] Kerrie Stark CO2 [Moles/Vol] 22.2 mmol/L Normal 21.0-32.0 [facility] Comment on above: Performed By: #### P OCGLUC #### [facility] [address] [place] [address] Dr. Kerrie Stark Creatinine [Mass/Vol] 1.17 mg/dL Normal 0.70-1.30 [facility] Comment on above: Performed By: #### P OCGLUC #### [facility] [address] [place] [address] Dr. Kerrie Stark EGFR-AF [facility] >60 Normal >=60 [facility] Comment on above: Performed By: #### P OCGLUC #### [facility] [address] [place] [address] Dr. Kerrie Stark EGFR-NON AF [facility] 60 mL/min/1.73m2 Normal >=60 [facility] Comment on above: Performed By: #### P OCGLUC #### [facility] [address] [address] [address] Kerrie Stark Globulin (S) [Mass/Vol] 3.8 g/dL Normal [facility] Comment on above: Performed By: #### P OCGLUC #### [facility] [address] [place] [address] Dr. Kerrie Stark Glucose [Mass/Vol] 283 mg/dL Critically high 74-106 [facility] Comment on above: Performed By: #### P OCGLUC #### [facility] [address] [address] [address] Kerrie Stark Potassium [Moles/Vol] 4.1 mmol/L Normal 3.5-5.1 [facility] Comment on above: Performed By: #### P OCGLUC #### [facility] [address] [place] [address] Dr. Kerrie Stark Protein [Mass/Vol] 5.7 g/dL Critically low 6.4-8.2 [facility] Comment on above: Performed By: #### P OCGLUC #### [facility] [address] [place] [address] Dr. Kerrie Stark Sodium [Moles/Vol] 134 mmol/L Critically low 136-145 [facility] Comment on above: Performed By: #### P OCGLUC #### [facility] [address] [place] [address] Dr. Kerrie Stark Urea nitrogen [Mass/Vol] 23.0 mg/dL Critically high 7.0-18.0 [facility] Comment on above: Performed By: #### P OCGLUC #### [facility] [address] [place] [address] Dr. Kerrie Stark Urea nitrogen/Creatinine [Mass ratio] 19.7 mg/mg Normal [facility] Comment on above: Performed By: #### P OCGLUC #### [facility] [address] [place] [address] Dr. Kerrie Stark CULTURE SPUTUMon 04-06-2022 CULTURE SPUTUM Isolate 1 Grace albicans Light growth of Normal [facility] Comment on above: Performed By: #### S PUTCX #### [facility] [address] [place] [address] Dr. Kerrie Stark CULTURE URINEon 04-06-2022 CULTURE URINE Culture Observations: NO GROWTH. Normal [facility] Comment on above: Performed By: #### U RCX #### [facility] [address] [place] [address] Dr. Kerrie Stark ER URINE PROFILEon 3 Bilirubin Ql (U) Negative Normal NEGATIVE [facility] Comment on above: Performed By: #### P OCGLUC #### [facility] [address] [place] [address] Dr. Kerrie Stark Clarity (U) CLEAR Normal CLEAR [facility] Comment on above: Performed By: #### P OCGLUC #### [facility] [address] [address] [address] Kerrie Stark Color (U) YELLOW Normal YELLOW [facility] Comment on above: Performed By: #### P OCGLUC #### [facility] [address] [address] [address] Kerrie Stark ERUAHCornelio A micrscopic examination will be performed if indicated. Normal [facility] Comment on above: Performed By: #### P OCGLUC #### [facility] [address] [address] [address] Kerrie Stark Glucose Ql (U) Negative Normal NEGATIVE [facility] Comment on above: Performed By: #### P OCGLUC #### [facility] [address] [place] [address] Dr. Kerrie Stark Hemoglobin Ql (U) Negative Normal NEGATIVE [facility] Comment on above: Performed By: #### P OCGLUC #### [facility] [address] [address] [address] Kerrie Stark Ketones Ql (U) Negative Normal NEGATIVE [facility] Comment on above: Performed By: #### P OCGLUC #### [facility] [address] [address] [address] Kerrie Stark LEUKOCYTES Negative Normal NEGATIVE [facility] Comment on above: Performed By: #### P OCGLUC #### [facility] [address] [address] [address] Kerrie Stark Nitrite Ql (U) Negative Normal NEGATIVE [facility] Comment on above: Performed By: #### P OCGLUC #### [facility] [address] [address] [address] Kerrie Stark pH (U) 6.0 [pH] Normal 5-9 [facility] Comment on above: Performed By: #### P OCGLUC #### [facility] [address] [place] [address] Dr. Kerrie Stark Protein (U) [Mass/Vol] 30 mg/dL Abnormal NEGAT LITTLE/ TRACE [facility] Comment on above: Performed By: #### P OCGLUC #### [facility] [address] [address] [address] Kerrie Stark SPEC GRAVITY 1.015 Normal 1.005-<=1.025 [facility] Comment on above: Performed By: #### P OCGLUC #### [facility] [address] [address] [address] Kerrie Stark UR MICRO IND INDICATED Normal [facility] Comment on above: Performed By: #### P OCGLUC #### [facility] [address] [address] [address] Kerrie Stark Urobilinogen Qn (U) 0.2 {Ricky'U}/dL Normal 0.2 - 1. 0 [facility] Comment on above: Performed By: #### P OCGLUC #### [facility] [address] [address] [address] Kerrie Stark POINT OF CARE GLUCOSEon 03-22 Glucose [Mass/Vol] 301 mg/dL Critically high [address] [place] [address] Comment on above: Performed By: #### P OCGLUC #### [facility] [address] [address] [address] Kerrie Stark Glucose [Mass/Vol] 272 mg/dL Critically high [address] [place] [address] Comment on above: Performed By: #### P OCGLUC #### [facility] [address] [address] [address] Kerrie Stark Glucose [Mass/Vol] 191 mg/dL Critically high [address] [place] [address] Comment on above: Performed By: #### P OCGLUC #### [facility] [address] [address] [address] Kerrie Stark Glucose [Mass/Vol] 164 mg/dL Critically high [address] [place] [address] Comment on above: Performed By: #### C BC #### [facility] [address] [address] [address] Kerrie Stark Glucose [Mass/Vol] 128 mg/dL Critically high [address] [place] [address] Comment on above: Performed By: #### P OCGLUC #### [facility] [address] [place] [address] Dr. Kerrie Stark URINE MICROSCOPIC ONLYon BACTERIA SMALL Abnormal NONE SEEN [facility] Comment on above: Performed By: #### P OCGLUC #### [facility] [address] [place] [address] Dr. Kerrie Stark Bacteria identified Cx Nom (U) INDICATED Normal [facility] Comment on above: Performed By: #### P OCGLUC #### [facility] [address] [place] [address] Dr. Kerrie Stark CAST SEEN Abnormal NONE SEEN [facility] Comment on above: Performed By: #### P OCGLUC #### [facility] [address] [place] [address] Dr. Kerrie Stark Crystals LM Nom (Urine sed) NONE SEEN Normal NONE SEEN [facility] Comment on above: Performed By: #### P OCGLUC #### [facility] [address] [place] [address] Dr. Kerrie Stark Epithelial cells LM Ql (Urine sed) RARE Normal NONE SEEN /RARE [facility] Comment on above: Performed By: #### P OCGLUC #### [facility] [address] [place] [address] Dr. Kerrie Stark HYALINE CAST RARE Normal [facility] Comment on above: Performed By: #### P OCGLUC #### [facility] [address] [place] [address] Dr. Kerrie Stark MUCOUS TRACE Abnormal NONE SEEN [facility] Comment on above: Performed By: #### P OCGLUC #### [facility] [address] [place] [address] Dr. Kerrie Stark RBC 0-2 Normal 0-2 [facility] Comment on above: Performed By: #### P OCGLUC #### [facility] [address] [place] [address] Dr. Kerrie Stark WBC 0-2 Abnormal NONE SEEN [facility] Comment on above: Performed By: #### P OCGLUC #### [facility] [address] [place] [address] Dr. Kerrie Stark BNPon 04-05-2022 Natriuretic peptide B (Bld) [Mass/Vol] 394.0 pg/mL Normal <=1,800.0 [facility] Comment on above: Performed By: #### C BC #### [facility] [address] [address] [address] Kerrie Stark CBC W MANUAL DIFFon 04-05-19 ATYPICAL LYMPH # Normal [facility] Comment on above: Performed By: #### P OCGLUC #### [facility] [address] [place] [address] Dr. Kerrie Stark ATYPICAL LYMPH % Normal [facility] Comment on above: Performed By: #### P OCGLUC #### [facility] [address] [place] [address] Dr. Kerrie Stark BAND # Normal 0.0-0.3 [facility] Comment on above: Performed By: #### P OCGLUC #### [facility] [address] [place] [address] Dr. Kerrie Stark BAND % Normal 0-5 [facility] Comment on above: Performed By: #### P OCGLUC #### [facility] [address] [place] [address] Dr. Kerrie Stark BASOM # 0.00 103/ul Normal 0.00-0.10 [facility] Comment on above: Performed By: #### P OCGLUC #### [facility] [address] [place] [address] Dr. Kerrie Stark BASOM % 0.0 % Critically low 0.2-2.0 [facility] Comment on above: Performed By: #### P OCGLUC #### [facility] [address] [place] [address] Dr. Kerrie Stark BLAST # Normal [facility] Comment on above: Performed By: #### P OCGLUC #### [facility] [address] [place] [address] Dr. Kerrie Stark BLAST % Normal [facility] Comment on above: Performed By: #### P OCGLUC #### [facility] [address] [address] [address] Kerrie Stark CORRECTED WBC Normal 4.0-11.0 [facility] Comment on above: Performed By: #### P OCGLUC #### [facility] [address] [address] [address] Kerrie Stark EOS # 0.00 103/ul Normal 0.00-0.70 [facility] Comment on above: Performed By: #### P OCGLUC #### [facility] [address] [address] [address] Kerrie Stark EOS% 0.0 % Critically low 0.9-7.0 [facility] Comment on above: Performed By: #### P OCGLUC #### [facility] [address] [place] [address] Dr. Kerrie Stark HCT 43.5 % Normal 42.0-54.0 [facility] Comment on above: Performed By: #### P OCGLUC #### [facility] [address] [place] [address] Dr. Kerrie Stark HGB 14.7 g/dl Normal 14.0-18.0 [facility] Comment on above: Performed By: #### P OCGLUC #### [facility] [address] [place] [address] Dr. Kerrie Stark LYMPHM # 0.78 103/ul Critically low 1.20-3.80 [facility] Comment on above: Performed By: #### P OCGLUC #### [facility] [address] [place] [address] Dr. Kerrie Stark LYMPHM% 4.0 % Critically low 20.5-60.0 [facility] Comment on above: Performed By: #### P OCGLUC #### [facility] [address] [place] [address] Dr. Kerrie Stark MCH 32.5 pg Normal 25.9-34.0 [facility] Comment on above: Performed By: #### P OCGLUC #### [facility] [address] [place] [address] Dr. Kerrie Stark MCHC 33.8 g/dl Normal 29.9-35.2 [facility] Comment on above: Performed By: #### P OCGLUC #### [facility] [address] [address] [address] Kerrie Stark MCV 96.2 fL Critically high 80.0-94.0 [facility] Comment on above: Performed By: #### P OCGLUC #### [facility] [address] [place] [address] Dr. Kerrie Stark METAMYELOCYTE # Normal [facility] Comment on above: Performed By: #### P OCGLUC #### [facility] [address] [place] [address] Dr. Kerrie Stark METAMYELOCYTE % Normal [facility] Comment on above: Performed By: #### P OCGLUC #### [facility] [address] [place] [address] Dr. Kerrie Stark MONOM# 0.58 103/ul Normal 0.30-0.80 [facility] Comment on above: Performed By: #### P OCGLUC #### [facility] [address] [place] [address] Dr. Kerrie Stark MONOM% 3.0 % Normal 1.7-12.0 [facility] Comment on above: Performed By: #### P OCGLUC #### [facility] [address] [place] [address] Dr. Kerrie Stark MPV 10.1 fL Normal 9.5-13.5 [facility] Comment on above: Performed By: #### P OCGLUC #### [facility] [address] [place] [address] Dr. Kerrie Stark MYELOCYTE # Normal [facility] Comment on above: Performed By: #### P OCGLUC #### [facility] [address] [place] [address] Dr. Kerrie Stark MYELOCYTE % Normal [facility] Comment on above: Performed By: #### P OCGLUC #### [facility] [address] [place] [address] Dr. Kerrie Stark NRBC Normal [facility] Comment on above: Performed By: #### P OCGLUC #### [facility] [address] [address] [address] Kerrie Stark PLT 181 103/ul Normal 150-450 [facility] Comment on above: Performed By: #### P OCGLUC #### [facility] [address] [address] [address] Kerrie Stark RBC 4.52 106/ul Critically low 4.70-6.10 [facility] Comment on above: Performed By: #### P OCGLUC #### [facility] [address] [address] [address] Kerrie Stark RDW 12.9 % Normal 11.0-15.0 [facility] Comment on above: Performed By: #### P OCGLUC #### [facility] [address] [address] [address] Kerrie Stark SEG # 18.14 103/ul Critically high 1.40-6.50 [facility] Comment on above: Performed By: #### P OCGLUC #### [facility] [address] [address] [address] Kerrie Stark SEG % 93.0 % Critically high 43.0-75.0 [facility] Comment on above: Performed By: #### P OCGLUC #### [facility] [address] [address] [address] Kerrie Stark WBC 19.5 103/ul Critically high 4.0-11.0 [facility] Comment on above: Performed By: #### P OCGLUC #### [facility] [address] [address] [address] Kerrie Stark CTA CHEST WO W [...] by: BING ADAMS Date: 2022-04-05 20:31 Normal [facility] CULTURE BLOODon 04-05-2022 Microscopic examination of blood, culture Culture Observations: NO GROWTH AT 5 DAYS. Normal [facility] Comment on above: Performed By: #### C BC #### [facility] [address] [place] [address] Dr. Kerrie Stark Microscopic examination of blood, culture Culture Observations: NO GROWTH AT 5 DAYS. Normal [facility] Comment on above: Performed By: #### B [id number] #### [facility] [address] [place] [address] Dr. Kerrie Stark LACTATE/LACTIC ACIDon 2022 Lactate [Moles/Vol] 2.7 mmol/L Critically high 0.4-1.9 [facility] Comment on above: Performed By: #### P OCGLUC #### [facility] [address] [place] [address] Dr. Kerrie Stark Lactate [Moles/Vol] 3.2 mmol/L Critically high 0.4-1.9 [facility] Comment on above: Performed By: #### D DIM #### [facility] [address] [place] [address] Dr. Kerrie Stark PH VENOUS BLOODon 04-05-2022 PCO2 VENOUS 42.3 mmHg Normal 40.0-52.0 [facility] Comment on above: Performed By: #### P OCGLUC #### [facility] [address] [place] [address] Dr. Kerrie Stark pH VENOUS 7.400 Normal 7.330-7.430 [facility] Comment on above: Performed By: #### P OCGLUC #### [facility] [address] [place] [address] Dr. Kerrie Stark PROF 14(COMP METB)on 023 Albumin [Mass/Vol] 3.0 g/dL Critically low 3.4-5.0 [facility] Comment on above: Performed By: #### C BC #### [facility] [address] [place] [address] Dr. Kerrie Stark Albumin/Globulin [Mass ratio] 0.7 {ratio} Normal [facility] Comment on above: Performed By: #### C BC #### [facility] [address] [place] [address] Dr. Kerrie Stark ALP [Catalytic activity/Vol] 68 U/L Normal 46-116 [facility] Comment on above: Performed By: #### C BC #### [facility] [address] [place] [address] Dr. Kerrie Stark ALT [Catalytic activity/Vol] 29 U/L Normal 16-63 [facility] Comment on above: Performed By: #### C BC #### [facility] [address] [place] [address] Dr. Kerrie Stark Anion gap [Moles/Vol] 12.3 mmol/L Normal [facility] Comment on above: Performed By: #### C BC #### [facility] [address] [place] [address] Dr. Kerrie Stark AST [Catalytic activity/Vol] 19 U/L Normal 15-37 [facility] Comment on above: Performed By: #### C BC #### [facility] [address] [address] [address] Kerrie Stark Bilirubin [Mass/Vol] 0.7 mg/dL Normal 0.2-1.0 [facility] Comment on above: Performed By: #### C BC #### [facility] [address] [address] [address] Kerrie Stark Calcium [Mass/Vol] 10.0 mg/dL Normal 8.5-10.1 [facility] Comment on above: Performed By: #### C BC #### [facility] [address] [place] [address] Dr. Kerrie Stark Chloride [Moles/Vol] 96 mmol/L Critically low 98-107 [facility] Comment on above: Performed By: #### C BC #### [facility] [address] [address] [address] Kerrie Stark CO2 [Moles/Vol] 27.7 mmol/L Normal 21.0-32.0 [facility] Comment on above: Performed By: #### C BC #### [facility] [address] [place] [address] Dr. Kerrie Stark Creatinine [Mass/Vol] 1.18 mg/dL Normal 0.70-1.30 [facility] Comment on above: Performed By: #### C BC #### [facility] [address] [place] [address] Dr. Kerrie Stark EGFR-AF [facility] >60 Normal >=60 [facility] Comment on above: Performed By: #### C BC #### [facility] [address] [place] [address] Dr. Kerrie Stark EGFR-NON AF [facility] 59 mL/min/1.73m2 Critically low >=60 [facility] Comment on above: Performed By: #### C BC #### [facility] [address] [place] [address] Dr. Kerrie Stark Globulin (S) [Mass/Vol] 4.5 g/dL Normal [facility] Comment on above: Performed By: #### C BC #### [facility] [address] [address] [address] Kerrie Stark Glucose [Mass/Vol] 189 mg/dL Critically high 74-106 [facility] Comment on above: Performed By: #### C BC #### [facility] [address] [address] [address] Kerrie Stark Potassium [Moles/Vol] 4.0 mmol/L Normal 3.5-5.1 [facility] Comment on above: Performed By: #### C BC #### [facility] [address] [address] [address] Kerrie Stark Protein [Mass/Vol] 7.5 g/dL Normal 6.4-8.2 [facility] Comment on above: Performed By: #### C BC #### [facility] [address] [address] [address] Kerrie Stark Sodium [Moles/Vol] 132 mmol/L Critically low 136-145 [facility] Comment on above: Performed By: #### C BC #### [facility] [address] [place] [address] Dr. Kerrie Stark Urea nitrogen [Mass/Vol] 34.0 mg/dL Critically high 7.0-18.0 [facility] Comment on above: Performed By: #### C BC #### [facility] [address] [address] [address] Kerrie Stark Urea nitrogen/Creatinine [Mass ratio] 28.8 mg/mg Normal [facility] Comment on above: Performed By: #### C BC #### [facility] [address] [address] [address] Kerrie Stark PROTIMEon 04-05-2022 INR Coag (PPP) [Relative time] 1.00 {INR} Normal [facility] Comment on above: Performed By: #### P OCGLUC #### [facility] [address] [place] [address] Dr. Kerrie Stark INR GUIDELINES SEE BELOW Normal [facility] Comment on above: Result Comment: TOBY RED INR: 2.0 - 3.0 CONDITIONS NOT LISTED BELOW 2.5 - 3.5 FOR PROSTHETIC HEART VALVE REPLACEMENT 2.5 - 3.5 RECURRENT THROMBOSIS Performed By: #### P OCGLUC #### [facility] [address] [place] [address] Dr. Kerrie Stark PT Coag (PPP) [Time] 10.6 s Normal 9.0-11.6 [facility] Comment on above: Performed By: #### P OCGLUC #### [facility] [address] [place] [address] Dr. Kerrie Stark PTTon 04-05-2022 aPTT Coag (Bld) [Time] 28.5 s Normal 22.3-36.2 [facility] Comment on above: Performed By: #### P OCGLUC #### [facility] [address] [place] [address] Dr. Kerrie Stark RESPIRATORY PANEL PLUSon Adenovirus Not detected Normal NOT DETECTED [facility] Comment on above: Performed By: #### L ACT #### [facility] [address] [place] [address] Dr. Kerrie Velázquez Parapertusis Not detected Normal NOT DETECTED [facility] Comment on above: Performed By: #### L ACT #### [facility] [address] [place] [address] Dr. Kerrie Velázquez Pertussis Not detected Normal NOT DETECTED [facility] Comment on above: Performed By: #### L ACT #### [facility] [address] [place] [address] Dr. Kerrie Stark Chlamydia Pneumoniae Not detected Normal NOT DETECTED [facility] Comment on above: Performed By: #### L ACT #### [facility] [address] [place] [address] Dr. Kerrie Stark Coronavirus 229E Not detected Normal NOT DETECTED [facility] Comment on above: Performed By: #### L ACT #### [facility] [address] [place] [address] Dr. Kerrie Stark Coronavirus HKU1 Not detected Normal NOT DETECTED [facility] Comment on above: Performed By: #### L ACT #### [facility] [address] [address] [address] Kerrie Stark Coronavirus NL63 Not detected Normal NOT DETECTED [facility] Comment on above: Performed By: #### L ACT #### [facility] [address] [address] [address] Kerrie Stark Coronavirus OC43 Not detected Normal NOT DETECTED [facility] Comment on above: Performed By: #### L ACT #### [facility] [address] [address] [address] Kerrie Stark Influenza A H1 Not detected Normal NOT DETECTED [facility] Comment on above: Performed By: #### L ACT #### [facility] [address] [place] [address] Dr. Kerrie Stark Influenza A H1 2009 Not detected Normal NOT DETECTED [facility] Comment on above: Performed By: #### L ACT #### [facility] [address] [address] [address] Kerrie Stark Influenza A H3 Not detected Normal NOT DETECTED [facility] Comment on above: Performed By: #### L ACT #### [facility] [address] [place] [address] Dr. Kerrie Stark Influenza B Not detected Normal NOT DETECTED [facility] Comment on above: Performed By: #### L ACT #### [facility] [address] [address] [address] Kerrie Stark Metapneumovirus Not detected Normal NOT DETECTED [facility] Comment on above: Performed By: #### L ACT #### [facility] [address] [address] [address] Kerrie Stark Mycoplas. Pneumoniae Not detected Normal NOT DETECTED [facility] Comment on above: Performed By: #### L ACT #### [facility] [address] [address] [address] Kerrie Stark Parainfluenza 1 Not detected Normal NOT DETECTED [facility] Comment on above: Performed By: #### L ACT #### [facility] [address] [place] [address] Dr. Kerrie tSark Parainfluenza 2 Not detected Normal NOT DETECTED [facility] Comment on above: Performed By: #### L ACT #### [facility] [address] [place] [address] Dr. Kerrie Stark Parainfluenza 3 Not detected Normal NOT DETECTED [facility] Comment on above: Performed By: #### L ACT #### [facility] [address] [place] [address] Dr. Kerrie Stark Parainfluenza 4 Not detected Normal NOT DETECTED [facility] Comment on above: Performed By: #### L ACT #### [facility] [address] [place] [address] Dr. Kerrie Stark Rhino/Enterovirus Not detected Normal NOT DETECTED [facility] Comment on above: Performed By: #### L ACT #### [facility] [address] [place] [address] Dr. Kerrie Stark RP2 Header 1 RESPIRATORY PANEL: VIRUSES Normal [facility] Comment on above: Performed By: #### L ACT #### [facility] [address] [place] [address] Dr. Kerrie Stark RP2 Header 2 RESPIRATORY PANEL: BACTERIA Normal [facility] Comment on above: Performed By: #### L ACT #### [facility] [address] [place] [address] Dr. Kerrie Stark RSV Not detected Normal NOT DETECTED [facility] Comment on above: Performed By: #### L ACT #### [facility] [address] [place] [address] Dr. Kerrie Stark SARS-CoV-2 (COVID-19) RNA QUE+probe Ql (Unsp spec) Detected Abnormal NOT DETECTED [facility] Comment on above: Performed By: #### L ACT #### [facility] [address] [place] [address] Dr. Kerrie Stark TROPONIN, HIGH SENSITIVITYon 04-05-2022 HSTROP 8.4 pg/mL Normal 4.0-76.1 [facility] Comment on above: Result Comment: CUT- OFF POINTS HAVE BEEN ESTABLISHED BASED ON THE FOURTH UNIVERSAL DEFINITIONS OF MYOCARDIAL INFARCTION. THE UPPER REFERENCE LIMIT (URL) OF TROPONIN, DEFINED THE 99TH PERCENTILE OF cTnI DISTRIBUTION IN A REFERENCE POPULATION, HAS BEEN CONFIRMED THE DECISION THRESHOLD FOR AL DIAGNOSIS. Performed By: #### C BC #### [facility] [address] [address] [address] Kerrie Stark Progress Noteson 03-30-2022 [employer] Authentication Interface Message Text EMERGENCY TRIAGE, TREAT AND TRANSPORT (ET3) DOCUMENTATION OF TELEHEALTH VISIT Date / Time: 03/27/2022 / 2339 Name: Chema Childs : 1940 SSN: (Not on file) EMS Agency: [facility] [x] Verbal consent obtained [] Implied [...] Completed by: Horace Parra DO Normal [email or web address] CBC W MANUAL DIFFon 03-29-19 23 ATYPICAL LYMPH # Normal [facility] Comment on above: Performed By: #### L ACT #### [facility] [address] [place] [address] Dr. Kerrie Stark ATYPICAL LYMPH % Normal [facility] Comment on above: Performed By: #### L ACT #### [facility] [address] [place] [address] Dr. Kerrie Stark BAND # 0.0 103/ul Normal 0.0-0.3 [facility] Comment on above: Performed By: #### L ACT #### [facility] [address] [place] [address] Dr. Kerrie Stark BAND % 0 % Normal 0-5 [facility] Comment on above: Performed By: #### L ACT #### [facility] [address] [place] [address] Dr. Kerrie Stark BASOM # 0.00 103/ul Normal 0.00-0.10 [facility] Comment on above: Performed By: #### L ACT #### [facility] [address] [place] [address] Dr. Kerrie Stark BASOM % 0.0 % Critically low 0.2-2.0 [facility] Comment on above: Performed By: #### L ACT #### [facility] [address] [place] [address] Dr. Kerrie Stark BLAST # Normal [facility] Comment on above: Performed By: #### L ACT #### [facility] [address] [place] [address] Dr. Kerrie Stark BLAST % Normal [facility] Comment on above: Performed By: #### L ACT #### [facility] [address] [place] [address] Dr. Kerrie Stark CORRECTED WBC Normal 4.0-11.0 [facility] Comment on above: Performed By: #### L ACT #### [facility] [address] [address] [address] Kerrie Stark EOS # 0.00 103/ul Normal 0.00-0.70 [facility] Comment on above: Performed By: #### L ACT #### [facility] [address] [address] [address] Kerrie Stark EOS% 0.0 % Critically low 0.9-7.0 [facility] Comment on above: Performed By: #### L ACT #### [facility] [address] [address] [address] Kerrie Stark HCT 37.3 % Critically low 42.0-54.0 [facility] Comment on above: Performed By: #### L ACT #### [facility] [address] [address] [address] Kerrie Stark HGB 12.0 g/dl Critically low 14.0-18.0 [facility] Comment on above: Performed By: #### L ACT #### [facility] [address] [address] [address] Kerrie Stark LYMPHM # 0.00 103/ul Critically low 1.20-3.80 [facility] Comment on above: Performed By: #### L ACT #### [facility] [address] [address] [address] Kerrie Stark LYMPHM% 0.0 % Critically low 20.5-60.0 [facility] Comment on above: Performed By: #### L ACT #### [facility] [address] [address] [address] Kerrie Stark MCH 33.1 pg Normal 25.9-34.0 [facility] Comment on above: Performed By: #### L ACT #### [facility] [address] [address] [address] Kerrie Stark MCHC 32.2 g/dl Normal 29.9-35.2 [facility] Comment on above: Performed By: #### L ACT #### [facility] [address] [place] [address] Dr. Kerrie Stark MCV 103.0 fL Critically high 80.0-94.0 [facility] Comment on above: Performed By: #### L ACT #### [facility] [address] [place] [address] Dr. Kerrie Stark METAMYELOCYTE # Normal [facility] Comment on above: Performed By: #### L ACT #### [facility] [address] [place] [address] Dr. Kerrie Stark METAMYELOCYTE % Normal [facility] Comment on above: Performed By: #### L ACT #### [facility] [address] [place] [address] Dr. Kerrie Stark MONOM# 0.69 103/ul Normal 0.30-0.80 [facility] Comment on above: Performed By: #### L ACT #### [facility] [address] [place] [address] Dr. Kerrie Stark MONOM% 5.0 % Normal 1.7-12.0 [facility] Comment on above: Performed By: #### L ACT #### [facility] [address] [place] [address] Dr. Kerrie Stark MPV 10.6 fL Normal 9.5-13.5 [facility] Comment on above: Performed By: #### L ACT #### [facility] [address] [place] [address] Dr. Kerrie Stark MYELOCYTE # Normal [facility] Comment on above: Performed By: #### L ACT #### [facility] [address] [place] [address] Dr. Kerrie Stark MYELOCYTE % Normal [facility] Comment on above: Performed By: #### L ACT #### [facility] [address] [place] [address] Dr. Kerrie Stark NRBC Normal [facility] Comment on above: Performed By: #### L ACT #### [facility] [address] [place] [address] Dr. Kerrie Stark PLT 158 103/ul Normal 150-450 [facility] Comment on above: Performed By: #### L ACT #### [facility] [address] [address] [address] Kerrie Stark RBC 3.62 106/ul Critically low 4.70-6.10 [facility] Comment on above: Performed By: #### L ACT #### [facility] [address] [id number] [address] Kerrie Stark RDW 13.2 % Normal 11.0-15.0 [facility] Comment on above: Performed By: #### L ACT #### [facility] [address] [address] [address] Kerrie Stark SEG # 13.02 103/ul Critically high 1.40-6.50 [facility] Comment on above: Performed By: #### L ACT #### [facility] [address] [address] [address] Kerrie Stark SEG % 95.0 % Critically high 43.0-75.0 [facility] Comment on above: Performed By: #### L ACT #### [facility] [address] [address] [address] Kerrie Stark WBC 13.7 103/ul Critically high 4.0-11.0 [facility] Comment on above: Performed By: #### L ACT #### [facility] [address] [address] [address] Kerrie Stark POINT OF CARE GLUCOSEon Glucose [Mass/Vol] 300 mg/dL Critically high 74-106 [facility] Comment on above: Performed By: #### C BC #### [facility] [address] [address] [address] Kerire Stark PROF CHEM 8 (BAS METB)on Anion gap [Moles/Vol] 12.5 mmol/L Normal [facility] Comment on above: Performed By: #### D DIM #### [facility] [address] [address] [address] Kerrie Stark Calcium [Mass/Vol] 8.9 mg/dL Normal 8.5-10.1 [facility] Comment on above: Performed By: #### D DIM #### [facility] [address] [place] [address] Dr. Kerrie Stark Chloride [Moles/Vol] 103 mmol/L Normal 98-107 [facility] Comment on above: Performed By: #### D DIM #### [facility] [address] [address] [address] Kerrie Stark CO2 [Moles/Vol] 25.4 mmol/L Normal 21.0-32.0 [facility] Comment on above: Performed By: #### D DIM #### [facility] [address] [place] [address] Dr. Kerrie Stark Creatinine [Mass/Vol] 1.05 mg/dL Normal 0.70-1.30 [facility] Comment on above: Performed By: #### D DIM #### [facility] [address] [place] [address] Dr. Kerrie Stark EGFR-AF [facility] >60 Normal >=60 [facility] Comment on above: Performed By: #### D DIM #### [facility] [address] [place] [address] Dr. Kerrie Stark EGFR-NON AF [facility] >60 Normal >=60 [facility] Comment on above: Performed By: #### D DIM #### [facility] [address] [place] [address] Dr. Kerrie Stark Glucose [Mass/Vol] 243 mg/dL Critically high 74-106 [facility] Comment on above: Performed By: #### D DIM #### [facility] [address] [place] [address] Dr. Kerrie Stark Potassium [Moles/Vol] 3.9 mmol/L Normal 3.5-5.1 [facility] Comment on above: Performed By: #### D DIM #### [facility] [address] [place] [address] Dr. Kerrie Stark Sodium [Moles/Vol] 137 mmol/L Normal 136-145 [facility] Comment on above: Performed By: #### D DIM #### [facility] [address] [address] [address] Kerrie Stark Urea nitrogen [Mass/Vol] 22.0 mg/dL Critically high 7.0-18.0 [facility] Comment on above: Performed By: #### D DIM #### [facility] [address] [address] [address] Kerrie Stark Urea nitrogen/Creatinine [Mass ratio] 21.0 mg/mg Normal [facility] Comment on above: Performed By: #### D DIM #### [facility] [address] [address] [address] Kerrie Stark CARDIAC CONSTANTINE 3-6on 3 CK [Catalytic activity/Vol] 91 U/L Normal 39-308 [facility] Comment on above: Performed By: #### C MREP #### [facility] [address] [place] [address] Dr. Kerrie Stark CK.MB [Mass/Vol] 0.35 ng/mL Normal <=3.60 [facility] Comment on above: Performed By: #### C MREP #### [facility] [address] [place] [address] Dr. Kerrie Stark HSTROP 20.8 pg/mL Normal 4.0-76.1 [facility] Comment on above: Result Comment: CUT- OFF POINTS HAVE BEEN ESTABLISHED BASED ON THE FOURTH UNIVERSAL DEFINITIONS OF MYOCARDIAL INFARCTION. THE UPPER REFERENCE LIMIT (URL) OF TROPONIN, DEFINED THE 99TH PERCENTILE OF cTnI DISTRIBUTION IN A REFERENCE POPULATION, HAS BEEN CONFIRMED THE DECISION THRESHOLD FOR AL DIAGNOSIS. Performed By: #### C MREP #### [facility] [address] [place] [address] Dr. Kerrie Stark CARDIAC CONSTANTINE ADMITon 023 CK [Catalytic activity/Vol] 56 U/L Normal 39-308 [facility] Comment on above: Performed By: #### D DIM #### [facility] [address] [place] [address] Dr. Kerrie Stark CK.MB [Mass/Vol] 0.36 ng/mL Normal <=3.60 [facility] Comment on above: Performed By: #### D DIM #### [facility] [address] [place] [address] Dr. Kerrie Stark HSTROP 12.7 pg/mL Normal 4.0-76.1 [facility] Comment on above: Result Comment: CUT- OFF POINTS HAVE BEEN ESTABLISHED BASED ON THE FOURTH UNIVERSAL DEFINITIONS OF MYOCARDIAL INFARCTION. THE UPPER REFERENCE LIMIT (URL) OF TROPONIN, DEFINED THE 99TH PERCENTILE OF cTnI DISTRIBUTION IN A REFERENCE POPULATION, HAS BEEN CONFIRMED THE DECISION THRESHOLD FOR AL DIAGNOSIS. Performed By: #### D DIM #### [facility] [address] [place] [address] Dr. Kerrie Stark KIKE 128 ng/mL Critically high 16-96 [facility] Comment on above: Performed By: #### D DIM #### [facility] [address] [place] [address] Dr. Kerrie Stark CBC AUTO DIFFon 03-28-2022 BASO # 0.0 103/ul Normal 0.0-0.1 [facility] Comment on above: Performed By: #### C BC #### [facility] [address] [place] [address] Dr. Kerrie Stark Basophils/100 WBC (Bld) 0.2 % Normal 0.2-2.0 [facility] Comment on above: Performed By: #### C BC #### [facility] [address] [place] [address] Dr. Kerrie Stark EO # 0.0 103/ul Normal 0.0-0.7 [facility] Comment on above: Performed By: #### C BC #### [facility] [address] [place] [address] Dr. Kerrie Stark Eosinophils/100 WBC (Bld) 0.1 % Critically low 0.9-7.0 [facility] Comment on above: Performed By: #### C BC #### [facility] [address] [place] [address] Dr. Kerrie Stark Erythrocyte distribution width (RBC) [Ratio] 13.3 % Normal 11.0-15.0 [facility] Comment on above: Performed By: #### C BC #### [facility] [address] [address] [address] Kerrie Stark Hematocrit (Bld) [Volume fraction] 41.9 % Critically low 42.0-54.0 [facility] Comment on above: Performed By: #### C BC #### [facility] [address] [address] [address] Kerrie Stark Hemoglobin (Bld) [Mass/Vol] 13.3 g/dL Critically low 14.0-18.0 [facility] Comment on above: Performed By: #### C BC #### [facility] [address] [address] [address] Kerrie Stark IG # 0.04 10e3/ul Critically high 0.00-0.03 [facility] Comment on above: Performed By: #### C BC #### [facility] [address] [place] [address] Dr. Kerrie Stark IG % 0.4 % Normal 0.0-0.5 [facility] Comment on above: Performed By: #### C BC #### [facility] [address] [place] [address] Dr. Kerrie Stark LYMPH # 0.5 103/ul Critically low 1.2-3.8 [facility] Comment on above: Performed By: #### C BC #### [facility] [address] [place] [address] Dr. Kerrie Stark Lymphocytes/100 WBC (Bld) 5.1 % Critically low 20.5-60.0 [facility] Comment on above: Performed By: #### C BC #### [facility] [address] [place] [address] Dr. Kerrie Stark MANUAL DIFF REQ NO Normal [facility] Comment on above: Performed By: #### C BC #### [facility] [address] [place] [address] Dr. Kerrie Stark MCH (RBC) [Entitic mass] 33.2 pg Normal 25.9-34.0 [facility] Comment on above: Performed By: #### C BC #### [facility] [address] [address] [address] Kerrie Stark MCHC (RBC) [Mass/Vol] 31.7 g/dL Normal 29.9-35.2 [facility] Comment on above: Performed By: #### C BC #### [facility] [address] [address] [address] Kerrie Stark MCV (RBC) [Entitic vol] 104.5 fL Critically high 80.0-94.0 [facility] Comment on above: Performed By: #### C BC #### [facility] [address] [address] [address] Kerrie Stark MONO # 1.1 103/ul Critically high 0.3-0.8 [facility] Comment on above: Performed By: #### C BC #### [facility] [address] [place] [address] Dr. Kerrie Stark Monocytes/100 WBC (Bld) 10.9 % Normal 1.7-12.0 [facility] Comment on above: Performed By: #### C BC #### [facility] [address] [place] [address] Dr. Kerrie Stark NEUT # 8.3 103/ul Critically high 1.4-6.5 [facility] Comment on above: Performed By: #### C BC #### [facility] [address] [place] [address] Dr. Kerrie Stark Neutrophils/100 WBC (Bld) 83.3 % Critically high 43.0-75.0 [facility] Comment on above: Performed By: #### C BC #### [facility] [address] [place] [address] Dr. Kerrie Stark Platelet mean volume (Bld) [Entitic vol] 10.8 fL Normal 9.5-13.5 [facility] Comment on above: Performed By: #### C BC #### [facility] [address] [place] [address] Dr. Kerrie Stark PLT 145 103/ul Critically low 150-450 [facility] Comment on above: Performed By: #### C BC #### [facility] [address] [place], [place] [address] Dr. Kerrie Stark RBC 4.01 106/ul Critically low 4.70-6.10 [facility] Comment on above: Performed By: #### C BC #### [facility] [address] [place], [place] [address] Dr. Kerrie Stark WBC 10.0 103/ul Normal 4.0-11.0 [facility] Comment on above: Performed By: #### C BC #### [facility] [address] [place], [place] [address] Dr. Kerrie Stark CTA CHEST WO W [...] FAROOQ HARDEN Date: 2022-03-28 06:03 Normal [facility] Covid-19 PCR (CVDTBH)on SARS-CoV-2 (COVID-19) RNA QUE+probe Ql (Unsp spec) Detected Abnormal NOT DETECTED [facility] Comment on above: Result Comment: This test is not yet approved or cleared by the [place] FDA. When there are no FDA-approved or cleared tests available, and other criteria are met, FDA can make tests available under an emergency access mechanism called an Emergency Use Authorization (EUA). The EUA for this test is supported by the [place] of Health and Human Service's declaration that [...] used). Performed By: #### C BC #### [facility] [address] [place] [address] Dr. Kerrie Stark D-DIMERon 03-28-2022 D-DIMER 0.71 mg/L FEU Critically high <=0.59 [facility] Comment on above: Performed By: #### D DIM #### [facility] [address] [place] [address] Dr. Kerrie Stark D-DIMER COMMENTS SEE BELOW Normal [facility] Comment on above: Result Comment: Incr eases [...] hospitalization. Performed By: #### D DIM #### [facility] [address] [place] [address] Dr. Kerrie Stark ER URINE PROFILEon 3 Bilirubin Ql (U) Negative Normal NEGATIVE [facility] Comment on above: Performed By: #### P OCGLUC #### [facility] [address] [place] [address] Dr. Kerrie Stark Clarity (U) CLEAR Normal CLEAR [facility] Comment on above: Performed By: #### P OCGLUC #### [facility] [address] [place] [address] Dr. Kerrie Stark Color (U) YELLOW Normal YELLOW [facility] Comment on above: Performed By: #### P OCGLUC #### [facility] [address] [address] [address] Kerrie BRINK A micrscopic examination will be performed if indicated. Normal [facility] Comment on above: Performed By: #### P OCGLUC #### [facility] [address] [address] [address] Kerrie Stark Glucose Ql (U) Negative Normal NEGATIVE [facility] Comment on above: Performed By: #### P OCGLUC #### [facility] [address] [place] [address] Dr. Kerrie Stark Hemoglobin Ql (U) Negative Normal NEGATIVE [facility] Comment on above: Performed By: #### P OCGLUC #### [facility] [address] [place] [address] Dr. Kerrie Stark Ketones Ql (U) TRACE Abnormal NEGATIVE [facility] Comment on above: Performed By: #### P OCGLUC #### [facility] [address] [place] [address] Dr. Kerrie Stark LEUKOCYTES Negative Normal NEGATIVE [facility] Comment on above: Performed By: #### P OCGLUC #### [facility] [address] [address] [address] Kerrie Stark Nitrite Ql (U) Negative Normal NEGATIVE [facility] Comment on above: Performed By: #### P OCGLUC #### [facility] [address] [address] [address] Kerrie Stark pH (U) 5.5 [pH] Normal 5-9 [facility] Comment on above: Performed By: #### P OCGLUC #### [facility] [address] [place] [address] Dr. Kerrie Stark Protein (U) [Mass/Vol] 30 mg/dL Abnormal NEGAT LITTLE/ TRACE [facility] Comment on above: Performed By: #### P OCGLUC #### [facility] [address] [place] [address] Dr. Kerrie Stark SPEC GRAVITY 1.025 Normal 1.005-<=1.025 [facility] Comment on above: Performed By: #### P OCGLUC #### [facility] [address] [place] [address] Dr. Kerrie Stark UR MICRO IND NOT INDICATED Normal [facility] Comment on above: Performed By: #### P OCGLUC #### [facility] [address] [place] [address] Dr. Kerrie Stark Urobilinogen Qn (U) 1.0 {Ricky'U}/dL Normal 0.2 - 1. 0 [facility] Comment on above: Performed By: #### P OCGLUC #### [facility] [address] [place] [address] Dr. Kerrie Stark INFLUENZA A [facility] B [facility]on 03[facility] SEE BELOW Normal [facility] Comment on above: Result Comment: Nega tive for Flu A protein angiten. Infection due to Flu A cannot be ruled out. Flu A angiten in the sample may be below the detection limit of the test. Performed By: #### L ACT #### [facility] [address] [place] [address] Dr. Kerrie Stark INFLUBNEGH SEE BELOW Normal [facility] Comment on above: Result Comment: Nega tive for Flu B protein antigen. Infection due to Flu B cannot be ruled out. Flu B antigen in the sample may be below the detection limit of the test. Performed By: #### L ACT #### [facility] [address] [place] [address] Dr. Kerrie Stark INFLUENZA A AG Negative Normal NEGATIVE SEE COMMENT [facility] Comment on above: Performed By: #### L ACT #### [facility] [address] [place] [address] Dr. Kerrie Stark INFLUENZA B AG Negative Normal NEGATIVE SEE COMMENT [facility] Comment on above: Performed By: #### L ACT #### [facility] [address] [address] [address] Kerrie Stark POINT OF CARE GLUCOSEon Glucose [Mass/Vol] 251 mg/dL Critically high 74-106 [facility] Comment on above: Performed By: #### C BC #### [facility] [address] [place] [address] Dr. Kerrie Stark Glucose [Mass/Vol] 244 mg/dL Critically high 74-106 [facility] Comment on above: Performed By: #### B LDCX1 #### [facility] [address] [place] [address] Dr. Kerrie Stark Glucose [Mass/Vol] 398 mg/dL Critically high 74-106 [facility] Comment on above: Performed By: #### P OCGLUC #### [facility] [address] [place] [address] Dr. Kerrie Stark PROF CHEM 8 (BAS METB)on Anion gap [Moles/Vol] 17.2 mmol/L Normal [facility] Comment on above: Performed By: #### D DIM #### [facility] [address] [place] [address] Dr. Kerrie Stark Calcium [Mass/Vol] 9.0 mg/dL Normal 8.5-10.1 [facility] Comment on above: Performed By: #### D DIM #### [facility] [address] [place] [address] Dr. Kerrie Stark Chloride [Moles/Vol] 96 mmol/L Critically low 98-107 [facility] Comment on above: Performed By: #### D DIM #### [facility] [address] [place] [address] Dr. Kerrie Stark CO2 [Moles/Vol] 23.6 mmol/L Normal 21.0-32.0 [facility] Comment on above: Performed By: #### D DIM #### [facility] [address] [place] [address] Dr. Kerrie Stark Creatinine [Mass/Vol] 1.41 mg/dL Critically high 0.70-1.30 [facility] Comment on above: Performed By: #### D DIM #### [facility] [address] [address] [address] Kerrie Stark EGFR-AF [facility] 58 mL/min/1.73m2 Critically low >=60 [facility] Comment on above: Performed By: #### D DIM #### [facility] [address] [address] [address] Kerrie Stark EGFR-NON AF [facility] 48 mL/min/1.73m2 Critically low >=60 [facility] Comment on above: Performed By: #### D DIM #### [facility] [address] [address] [address] Kerrie tSark Glucose [Mass/Vol] 151 mg/dL Critically high 74-106 [facility] Comment on above: Performed By: #### D DIM #### [facility] [address] [address] [address] Kerrie Stark Potassium [Moles/Vol] 3.8 mmol/L Normal 3.5-5.1 [facility] Comment on above: Performed By: #### D DIM #### [facility] [address] [address] [address] Kerrie Stark Sodium [Moles/Vol] 133 mmol/L Critically low 136-145 [facility] Comment on above: Performed By: #### D DIM #### [facility] [address] [address] [address] Kerrie Stark Urea nitrogen [Mass/Vol] 20.0 mg/dL Critically high 7.0-18.0 [facility] Comment on above: Performed By: #### D DIM #### [facility] [address] [address] [address] Kerrie Stark Urea nitrogen/Creatinine [Mass ratio] 14.2 mg/mg Normal [facility] Comment on above: Performed By: #### D DIM #### [facility] [address] [id number] Kerrie Stark XR CHEST 2 Von [...] by: PONCHO ROCHA Date: 2022-03-28 01:38 Normal [facility] Auth for Release of Medical Recordson 03-09-2022 Auth for Release of Medical Records [id number] #1.00CD:127 Normal [facility] Cult,Urineon 03-02-2022 Cult,Urine Specimen Description .CLEAN CATCH URINE Culture NO SIGNIFICANT GROWTH Report Status FINAL 03/02/2022 Normal [facility] Comment on above: Performed By: #### U RC #### [address] [address] Distribution Operations Manager: Sandip Smith MD [address] [place] [address] Distribution Operations Manager: Ulisses Gaines MD Urinalysis w/ Microon 2022 Bacteria TRACE Abnormal NONE [facility] Comment on above: Performed By: #### U AMIC #### [address] [place] [address] Distribution Operations Manager: Ulisses Gaines MD Bilirubin, SemiQt,Ur Negative Normal NEG [facility] Comment on above: Performed By: #### U AMIC #### [address] [place] [address] Distribution Operations Manager: Ulisses Gaines MD Blood, Urine Negative Normal NEG [facility] Comment on above: Performed By: #### U AMIC #### [facility] [address] [place] [address] Dr. [place], [place] [phone] Distribution Operations Manager: Ulisses Gaines MD Clarity (U) Clear Normal CLEAR [facility] Comment on above: Performed By: #### U AMIC #### [facility] [address] [place] [address] Dr. [place], [place] [phone] Distribution Operations Manager: Ulisses Gaines MD Color (U) Yellow Normal YEL [facility] Comment on above: Performed By: #### U AMIC #### [facility] [address] [place] [address] Dr. [place], [place] [phone] Distribution Operations Manager: Ulisses Gaines MD Epithelial cells LM Ql (Urine sed) 0 TO 2 Normal 0-5 [facility] Comment on above: Performed By: #### U AMIC #### [facility] [address] [place] [address] Dr. [place], [place] [phone] Distribution Operations Manager: Ulisses Gaines MD Glucose Ql (U) Negative Normal NEG [facility] Comment on above: Performed By: #### U AMIC #### [facility] [address] [place] [address] Dr. [place], [place] [phone] Distribution Operations Manager: Ulisses Gaines MD Ketones Ql (U) Negative Normal NEG [facility] Comment on above: Performed By: #### U AMIC #### [facility] [address] [place] [address] Dr. [place], [place] [phone] Distribution Operations Manager: Ulisses Gaines MD Leukocyte esterase Test strip Ql (U) Negative Normal NEG [facility] Comment on above: Performed By: #### U AMIC #### [facility] [address] [place] [address] Dr. [place], [place] [phone] Distribution Operations Manager: Ulisses Gaines MD Nitrite,Ur Negative Normal NEG [facility] Comment on above: Performed By: #### U AMIC #### [facility] [address] [place] [address] Dr. [place], [place] [phone] Distribution Operations Manager: Ulisses Gaines MD PH,Ur 6.0 Normal 5.0-9.0 [facility] Comment on above: Performed By: #### U AMIC #### [facility] [address] [place], [place] [phone] Distribution Operations Manager: Ulisses Gaines MD Protein Ql (U) Negative Normal NEG [facility] Comment on above: Performed By: #### U AMIC #### [facility] [address] [place], [place] [phone] Distribution Operations Manager: Ulisses Gaines MD Spec. [place],Ur 1.010 Normal 1.010-1.020 [facility] Comment on above: Performed By: #### U AMIC #### [facility] [address] [place] [address] Dr. [place], [place] [phone] Distribution Operations Manager: Ulisses Gaines MD Urine RBC's None Normal 0-2 [facility] Comment on above: Performed By: #### U AMIC #### [facility] [address] [place] [address] [place] [address] Distribution Operations Manager: Ulisses Gaines MD Urine WBC's None Normal 0-5 [facility] Comment on above: Performed By: #### U AMIC #### [facility] [address] [place] [address] Dr. [place], [place] [phone] Distribution Operations Manager: Ulisses Gaines MD Urobilinogen,Ur Normal Normal NORM [facility] Comment on above: Performed By: #### U AMIC #### [facility] [address] [place] [address] Distribution Operations Manager: Ulisses Gaines MD Urinalysis with Microscopico n 03-01-2022 Bacteria, UA TRACE Abnormal None [facility] Bilirubin Urine Negative NEGATIVE [facility] Color, UA Yellow Yellow [facility] Epithelial Cells UA 0 TO 2 [facility] Glucose, Ur Negative NEGATIVE [facility] Interpretation and review of laboratory results Abnormal [facility] Ketones Ql (U) Negative NEGATIVE [facility] Leukocyte esterase Test strip Ql (U) Negative NEGATIVE [facility] Nitrite, Urine Negative NEGATIVE [facility] pH, UA 6.0 5.0 - 9.0 [facility] Protein, UA Negative NEGATIVE [facility] RBC, UA None [facility] Specific [place], UA 1.010 1.010 - 1.020 B ON [facility] Turbidity UA Clear Clear [facility] Urine Hgb Negative NEGATIVE [facility] Urobilinogen, Urine Normal Normal [facility] WBC, UA None [facility] GLYCOHEMOGLOBIN A1Con 2021 ADA RECOMMENDATION SEE BELOW Normal [facility] Comment on above: Result Comment: ADA RECOMMENDED LIMIT 4.0 - 6.0 ADA THERAPEUTIC TARGET < 7.0 ACTION SUGGESTED > 7.0 Performed By: #### P OCGLUC #### [facility] [address] [address] [address] Kerrie Stark Glucose [Mass/Vol] 146 mg/dL Normal [facility] Comment on above: Performed By: #### P OCGLUC #### [facility] [address] [address] [address] Kerrie Stark HbA1c (Bld) [Mass fraction] 6.7 % Critically high 4.5-6.2 [facility] Comment on above: Performed By: #### P OCGLUC #### [facility] [address] [address] [address] Kerrie Stark LIPID PROFILEon 02-01-2022 CHOL-HDL RATIO NORM SEE BELOW Normal [facility] Comment on above: Result Comment: 3.3 - 4.4 LOW RISK 4.4 - 7.1 AVERAGE RISK 7.1 - 11.0 MODERATE RISK >11.0 HIGH RISK Performed By: #### P OCGLUC #### [facility] [address] [address] [address] Kerrie Stark Cholesterol [Mass/Vol] 127 mg/dL Normal <=200 [facility] Comment on above: Performed By: #### P OCGLUC #### [facility] [address] [address] [address] Kerrie Stark Cholesterol in HDL [Mass/Vol] 50 mg/dL Normal 40-60 [facility] Comment on above: Performed By: #### P OCGLUC #### [facility] [address] [address] [address] Kerrie Stark Cholesterol in LDL [Mass/Vol] 58.8 mg/dL Normal [facility] Comment on above: Performed By: #### P OCGLUC #### [facility] [address] [address] [address] Kerrie Stark Cholesterol.total/Chol esterol in HDL [Mass ratio] 2.5 {ratio} Normal [facility] Comment on above: Performed By: #### P OCGLUC #### [facility] [address] [address] [address] Kerrie Stark HDL NORMAL > or = 60 mg/dl - LOW CARDIOVASCULAR RISK <40 mg/dl - HIGH CARDIOVASCULAR RISK Normal [facility] Comment on above: Performed By: #### P OCGLUC #### [facility] [address] [address] [address] Kerrie Stark LDL CALC NORMAL SEE BELOW Normal [facility] Comment on above: Result Comment: <100 mg/dl OPTIMAL 100 - 129 mg/dl NEAR OR ABOVE OPTIMAL 130 - 159 mg/dl BORDERLINE HIGH 160 - 189 mg/dl HIGH >190 mg/dl VERY HIGH Performed By: #### P OCGLUC #### [facility] [address] [address] [address] Kerrie Stark Triglyceride [Mass/Vol] 91 mg/dL Normal <=150 [facility] Comment on above: Performed By: #### P OCGLUC #### [facility] [address] [address] [address] Kerrie Stark VLDL CALC 18.2 mg/dL Normal [facility] Comment on above: Performed By: #### P OCGLUC #### [facility] [address] [address] [address] Kerrie Stark PROF 14(COMP METB)on 022 Albumin [Mass/Vol] 3.8 g/dL Normal 3.4-5.0 [facility] Comment on above: Performed By: #### P OCGLUC #### [facility] [address] [address] [address] Kerrie Stark Albumin/Globulin [Mass ratio] 1.0 {ratio} Normal [facility] Comment on above: Performed By: #### P OCGLUC #### [facility] [address] [address] [address] Kerrie Stark ALP [Catalytic activity/Vol] 56 U/L Normal 46-116 [facility] Comment on above: Performed By: #### P OCGLUC #### [facility] [address] [address] [address] Kerrie Stark ALT [Catalytic activity/Vol] 30 U/L Normal 16-63 [facility] Comment on above: Performed By: #### P OCGLUC #### [facility] [address] [address] [address] Kerrie Stark Anion gap [Moles/Vol] 13.3 mmol/L Normal [facility] Comment on above: Performed By: #### P OCGLUC #### [facility] [address] [address] [address] Kerrie Stark AST [Catalytic activity/Vol] 26 U/L Normal 15-37 [facility] Comment on above: Performed By: #### P OCGLUC #### [facility] [address] [address] [address] Kerrie Stark Bilirubin [Mass/Vol] 0.7 mg/dL Normal 0.2-1.0 [facility] Comment on above: Performed By: #### P OCGLUC #### [facility] [address] [address] [address] Kerrie Stark Calcium [Mass/Vol] 9.0 mg/dL Normal 8.5-10.1 [facility] Comment on above: Performed By: #### P OCGLUC #### [facility] [address] [address] [address] Kerrie Stark Chloride [Moles/Vol] 105 mmol/L Normal 98-107 [facility] Comment on above: Performed By: #### P OCGLUC #### [facility] [address] [address] [address] Kerrie Stark CO2 [Moles/Vol] 28.3 mmol/L Normal 21.0-32.0 [facility] Comment on above: Performed By: #### P OCGLUC #### [facility] [address] [address] [address] Kerrie Stark Creatinine [Mass/Vol] 1.00 mg/dL Normal 0.70-1.30 [facility] Comment on above: Performed By: #### P OCGLUC #### [facility] [address] [address] [address] Kerrie Stark EGFR-AF [facility] >60 Normal >=60 [facility] Comment on above: Performed By: #### P OCGLUC #### [facility] [address] [address] [address] Kerrie Stark EGFR-NON AF [facility] >60 Normal >=60 [facility] Comment on above: Performed By: #### P OCGLUC #### [facility] [address] [address] [address] Kerrie Stark Globulin (S) [Mass/Vol] 3.7 g/dL Normal [facility] Comment on above: Performed By: #### P OCGLUC #### [facility] [address] [address] [address] Kerrie Stark Glucose [Mass/Vol] 150 mg/dL Critically high 74-106 [facility] Comment on above: Performed By: #### P OCGLUC #### [facility] [address] [address] [address] Kerrie Stark Potassium [Moles/Vol] 5.6 mmol/L Critically high 3.5-5.1 [facility] Comment on above: Performed By: #### P OCGLUC #### [facility] [address] [address] [address] Kerrie Stark Protein [Mass/Vol] 7.5 g/dL Normal 6.4-8.2 [facility] Comment on above: Performed By: #### P OCGLUC #### [facility] [address] [place], [place] [address] Dr. Kerrie Stark Sodium [Moles/Vol] 141 mmol/L Normal 136-145 [facility] Comment on above: Performed By: #### P OCGLUC #### [facility] [address], [place] [address] Dr. Kerrie Stark Urea nitrogen [Mass/Vol] 18.0 mg/dL Normal 7.0-18.0 [facility] Comment on above: Performed By: #### P OCGLUC #### [facility] [address], [place] [address] Dr. Kerrie Stark Urea nitrogen/Creatinine [Mass ratio] 18.0 mg/mg Normal [facility] Comment on above: Performed By: #### P OCGLUC #### [facility] [address], [place] [address] Dr. Kerrie Stark Creatinine (Bld) [Mass/Vol]O rdered By: Oumar Haynes on 01-30-2022 Creatinine [Mass/Vol] 1.0 mg/dL 0.6-1.3 [facility] Comment on above: ER/ESD physician is notified/shown all ISTAT results.Critical values may be confirmed by laboratory testing ifdeemed necessary by ER attending doctor. No Panel InformationOrdered By: Oumar Haynes on 01-30-2022 POC Estimated GFR > 60 [facility] Comment on above: GFR estimated refere nce range: According to KDOQI guidelines, <60 ml/min/1.73m2 is sufficient to diagnose a patient with chronic kidney disease. POC Estimated GFR Non- Amer > 60 [facility] Auth for Release of Medical Recordson 12-22-2021 Auth for Release of Medical Records [id number]. [id number] #1.00CD:127 Normal [facility] Formson 11-25-2021 Forms [id number].. [id number] #1.00CD:127 Normal [facility] Patient Educationon 11-24-19 Patient Education [...] Follow these instructions at home: ? Take [id number] and prescription medicines only as told by [...] Docum (more content not included)... Normal [facility] Office/Clinic Noteon 11-23-2021 Urology Office/Clinic Note [...] w 4 wks abx. side effects/risks discussed. pharmacist critical care clearance 62-70, no renal dose adjustment needed. encouraged probiotics, metamucil, and yogurt to help w diarrhea. complete entire abx course. 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 [address] Additional Instructions: Patient Education Prostatitis Problem List/Past [...] Protein Urine Dipstick: Negative (11/23/21 09:44:00) Specific [place] Urine Dipstick: 1.015 (11/23/21 09 (more content not included)... Normal [facility] Comment on above: Result Comment: Elec tronically Signed By: KONG PEPE PA-C\.reynaldo\Date and Time Signed: 11/23/21 11:02 EDT Historical Records Officeon 11-01-2021 Historical Records Office [id number] #1.00CD:127 Normal [facility] FREE T3on 09-21-2021 FREE T3 1.88 pg/mlL Critically low 2.18-3.98 [facility] Comment on above: Performed By: #### P OCGLUC #### [facility] [address], [place] [address] Dr. Kerrie Stark FREE T4on 09-21-2021 Free T4 [Mass/Vol] 1.28 ng/dL Normal 0.76-1.46 [facility] Comment on above: Performed By: #### D DIM #### [facility] [address] [place], [place] [address] Dr. Kerrie Stark TSHon 09-21-2021 TSH 0.625 uIU/mL Normal 0.358-3.740 [facility] Comment on above: Performed By: #### P OCGLUC #### [facility] [address] [address] [address] Kerrie Stark CTA Abdomen/Pelvis w/ and [...] by Harpal Crane on 08/11/2021 1410 Normal [facility] CREATININEon 08-03-2021 Creatinine [Mass/Vol] 0.98 mg/dL Normal 0.70-1.30 [facility] Comment on above: Performed By: #### L ACT #### [facility] [address] [address] [address] Kerrie Stark EGFR-AF [facility] >60 Normal >=60 [facility] Comment on above: Performed By: #### L ACT #### [facility] [address] [address] [address] Kerrie Stark EGFR-NON AF [facility] >60 Normal >=60 [facility] Comment on above: Performed By: #### L ACT #### [facility] [address] [address] [address] Kerrie Stark GLYCOHEMOGLOBIN A1Con 2021 ADA RECOMMENDATION SEE BELOW Normal [facility] Comment on above: Result Comment: ADA RECOMMENDED LIMIT 4.0 - 6.0 ADA THERAPEUTIC TARGET < 7.0 ACTION SUGGESTED > 7.0 Performed By: #### P OCGLUC #### [facility] [address] [address] [address] Kerrie Stark Glucose [Mass/Vol] 146 mg/dL Normal [facility] Comment on above: Performed By: #### P OCGLUC #### [facility] [address] [address] [address] Kerrie Stark HbA1c (Bld) [Mass fraction] 6.7 % Critically high 4.5-6.2 [facility] Comment on above: Performed By: #### P OCGLUC #### [facility] [address] [address] [address] Kerrie Stark Vital Signs Date Time Vital Sign Value Performing Clinician Facility 12-17-2023 14:55-0400 Body height 180.3 cm Clayton Mcfadden MD Work Phone: [facility] 12-17-2023 14:55-0400 Body mass index (BMI) [Ratio] 26.36 kg/m2 Clayton Mcfadden MD Work Phone: [facility] 12-17-2023 14:55-0400 Body weight 85.73 kg Clayton Mcfadden MD Work Phone: [facility] 01-31-2023 10:00-0500 Body height 175.26 cm Horace Jasso Other [employer] Other 01-31-2023 10:00-0500 Body mass index (BMI) [Ratio] 27.32 kg/m2 Horace Jasso Other [employer] Other 01-31-2023 10:00-0500 Body temperature 97.6 [degF] Horace Jasso Other [employer] Other 01-31-2023 10:00-0500 Body weight 83.92 kg Horace Jasso Other [employer] Other 01-31-2023 10:00-0500 Diastolic blood pressure 64 mm[Hg] Horace Jasso Other [employer] Other 01-31-2023 10:00-0500 SaO2% (BldA) [Mass fraction] 94 % Horace Jasso Other [employer] Other 01-31-2023 10:00-0500 Systolic blood pressure 108 mm[Hg] Horace Jasso Other [employer] Other 03-27-2022 23:40-0500 Diastolic blood pressure 78 mm[Hg] [facility] 03-27-2022 23:40-0500 Heart rate 121 /min [facility] [employer] 03-27-2022 23:40-0500 Respiratory rate 22 /min [facility] [employer] 03-27-2022 23:40-0500 SaO2% (BldA) [Mass fraction] 92 % [facility] [employer] 03-27-2022 23:40-0500 Systolic blood pressure 137 mm[Hg] [facility] [employer] 01-31-2022 12:00-0500 Body height 175.26 cm 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 Other [employer] Other 01-31-2022 12:00-0500 Body mass index (BMI) [Ratio] 27.32 kg/m2 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 Other [employer] Other 01-31-2022 12:00-0500 Body temperature 96.4 [degF] 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 Other [employer] Other 01-31-2022 12:00-0500 Body weight 83.92 kg 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 Other [employer] Other 01-31-2022 12:00-0500 Diastolic blood pressure 72 mm[Hg] 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 Other [employer] Other 01-31-2022 12:00-0500 SaO2% (BldA) [Mass fraction] 97 % 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 Other [employer] Other 01-31-2022 12:00-0500 Systolic blood pressure 120 mm[Hg] 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 Other [employer] Other 11-23-2021 09:59-0400 Blood Pressure Location KONG PEPE [facility] 11-23-2021 09:59-0400 Diastolic blood pressure 70 mm[Hg] KONG SCHRADERRY [facility] 11-23-2021 09:59-0400 Heart rate 66 /min KONG PEPE [facility] 11-23-2021 09:59-0400 Systolic blood pressure 132 mm[Hg] KONG PEPE [facility] 08-16-2021 12:45-0400 Body height 175.26 cm Oumar Haynes Other [employer] Other 08-16-2021 12:45-0400 Body mass index (BMI) [Ratio] 27.32 kg/m2 Oumar Haynes Other [employer] Other 08-16-2021 12:45-0400 Body temperature 96.9 [degF] Oumar Haynes Other [employer] Other 08-16-2021 12:45-0400 Body weight 83.92 kg Oumar Haynes Other [facility] [employer] Other 08-16-2021 12:45-0400 Diastolic blood pressure 78 mm[Hg] Oumar Haynes Other [employer] Other 08-16-2021 12:45-0400 SaO2% (BldA) [Mass fraction] 95 % Oumar Haynes Other [employer] Other 08-16-2021 12:45-0400 Systolic blood pressure 110 mm[Hg] Oumar Haynes Other [employer] Other Encounters Encounter Date Encounter Type Care Provider Facility Start: 12-17-2023 End: 12-17-2023 Office outpatient visit 15 minutes Clayton Mcfadden MD Work Phone: [facility] 100 Comment on above: Acute right-sided lo w back pain without sciatica Start: 12-17-2023 End: 12-17-2023 ambulatory CLAYTON MCFADDEN Not Available Start: 11-12-2023 End: 11-12-2023 ambulatory CLAYTON MCFADDEN Not Available Start: 05-22-2023 End: 05-22-2023 ambulatory CLAYTON MCFADDEN Not Available Start: 03-28-2023 Refill Clayton diez MD Work Phone: [facility] Comment on above: 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, with long-term current use of insulin (HCC) ([facility]/HCC) Start: 01-31-2023 Office outpatient vi sit 15 minutes Horace ALMANZA Vascular Surgery Start: 01-31-2023 End: 01-31-2023 ambulatory 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 Facility:[facility] Start: 01-31-2023 End: 01-31-2023 ambulatory MD Clayton Mcfadden Work Phone: [employer] Other Start: 01-31-2023 End: 01-31-2023 Patient encounter procedure MD Clayton Mcfadden Work Phone: [facility]Ultras[facility] Start: 01-15-2023 End: 01-15-2023 ambulatory CLAYTON MCFADDEN Not Available Start: 12-01-2022 End: 12-01-2022 ambulatory [facility] Start: 10-03-2022 End: 10-03-2022 ambulatory [facility] Start: 08-28-2022 End: 08-29-2022 ambulatory [facility]TON [facility] Start: 08-09-2022 End: 08-10-2022 ambulatory [facility]LAYTON [facility] Start: 08-09-2022 End: 08-09-2022 Subsequent hospital visit by physician Clayton Mcfadden MD Work Phone: [facility] Laboratory Comment on above: Dysuria; Frequency of micturition Start: 07-03-2022 End: 07-04-2022 ambulatory ZOILA JAVED . Facility:[facility] Start: 06-26-2022 End: 06-27-2022 ambulatory ZOILA JAVED . Facility:[facility] Start: 06-14-2022 End: 06-15-2022 ambulatory [facility] Start: 04-24-2022 End: 05-18-2022 ambulatory THELMA BETTS Facility:[facility] Start: 04-19-2022 End: 04-19-[address] CLAYTON MCFADDEN . Facility:[facility] Start: 04-05-2022 End: 04-08-2022 Evaluation and management of inpatient ELDER WOMACKP . Facility:[facility] Start: 04-05-2022 End: 04-06-[address] CLAYTON MCFADDEN . Facility:[facility] Start: 03-30-2022 End: 06-29-2022 ambulatory UNKNOWN PROVIDER Facility:[facility] Start: 03-28-2022 End: 03-29-2022 ambulatory SHAIKH Matilde LAU Facility:[facility] Start: 03-27-2022 End: 03-27-2022 ambulatory [facility] Triage, Treat and Transport Start: 03-27-2022 End: 03-27-2022 Emergency department patient visit [facility] Emergency Triage, Treat and Transport Comment on above: Arrived Start: 03-02-2022 End: 03-03-[address] CLAYTON MCFADDEN . Facility:[facility] Start: 03-01-2022 End: 03-02-2022 ambulatory ERICA Miguel Matteson [facility] Start: 03-01-2022 End: 03-01-2022 Subsequent hospital visit by physician Clayton Mcfadden MD Work Phone: [facility] Laboratory Comment on above: BPH with obstruction /lower urinary tract symptoms; Dysuria Start: 02-22-2022 ambulatory KONG PEPE Facili ty:[facility] Start: 02-20-[address] CLAYTON MCFADDEN . Fac ility:[facility] Start: 02-06-2022 End: 02-07-[address] CLAYTON MCFADDEN . Facility:[facility] Start: 02-06-2022 End: 02-06-[address] CLAYTON MCFADDEN . Facility:[facility] Start: 02-01-2022 End: 02-02-[address] CLAYTON MCFADDEN . Facility:[facility] Start: 01-31-2022 End: 01-31-2022 ambulatory 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 Other [employer] Other Start: 01-31-2022 Follow-up encounter Yolette Rosenberg [facility] Vascular Surgery Start: 01-30-2022 End: 01-30-2022 ambulatory MD Clayton Mcfadden Work Phone: [facility] Work Phone: Start: 01-30-2022 End: 01-30-2022 Patient encounter procedure MD Clayton Mcfadden Work Phone: [facility] [place] Start: 11-23-2021 End: 11-24-2021 ambulatory KONG PEPE Facility:[facility] Start: 11-23-2021 End: 11-23-2021 Patient encounter procedure KONG PEPE [facility] Start: 09-21-2021 End: 09-22-[address] CLAYTON MCFADDEN . Facility:[facility] Start: 08-19-[address] CLAYTON MCFADDEN . Fac ility:[facility] Start: 08-16-2021 End: 08-16-2021 ambulatory Oumarxenia Haynes Other [employer] Other Start: 08-16-2021 Office outpatient ne w 45 minutes Oumar Haynes [facility] Vascular Surgery Start: 08-03-2021 End: 08-04-[address] CLAYTON MCFADDEN . Facility: Procedures Date Procedure Procedure Detail Performing Clinician Start: 12-17-2023 Urnls dip stick/tabl et rgnt non-auto w/o micrscp Clayton Mcfadden MD Work Phone: Start: 01-31-2023 US scan of aorta MD Sang Mcfadden Work Phone: Start: 03-02-[address] CLAYTON MCFADDEN . Comment on above: Performed By: #### P OCGLUC #### [facility] [address] [place] [address] Dr. Kerrie Stakr Start: 03-01-2022 Urnls dip stick/tabl et reagent auto microscopy Erica Veras MD Work Phone: Start: 01-30-2022 Computed tomography angiography of abdominal and/or pelvic blood vessel MD Clayton Mcfadden Work Phone: Start: 12-24-2017 Cystoscopy [facility] BR[facility]O Start: 02-19-1977 H/O: vasectomy KONG PEPE Plan of Treatment Date Care Activity Detail Author Start: 05-21-2025 Glaucoma screening Diabetes: R etinopathy Screening [facility] Start: 06-03-2024 End: 06-03-2024 Patient encounter procedure 06/03/2024 10:00 AM EDT Office Visit [facility] [address] [place] [address] Clayton Mcfadden MD [address] [place] [address] (Fax) [facility] Start: 05-07-2024 Hemoglobin A1c measurement Diabetes: Hemoglobin A1C [facility] Start: 03-14-2024 Urine screening for protein Diabetes: Urine Protein Screening [facility] Start: 03-06-2024 Glaucoma screening Diabetes: R etinopathy Screening [facility] Start: 10-21-2023 Influenza vaccination Influenza Vacc ine (#1) [facility] Start: 05-22-2023 End: 05-22-2023 Patient encounter procedure 05/22/2023 11:00 AM EDT Office Visit [facility] [address] [place] [address] Clayton Mcfadden MD [address] [place] [address] (Fax) [facility] Start: 01-23-2023 Hemoglobin A1c measurement Diabetes: Hemoglobin A1C [facility] Start: 09-20-2022 End: 09-20-2022 Patient encounter procedure 09/20/2022 Office Visit [facility] Start: 03-20-2022 End: 03-20-2022 Patient encounter procedure 03/20/2022 Procedure visit [facility] Start: 03-01-2022 Annual Wellness Visi t (AWV) Annual Wellness Visit (AWV) [facility] Start: 11-19-2021 Influenza vaccination Influenza Vacc ine (#1) [facility] Start: 09-19-2021 Influenza vaccination Flu vaccine (# 1) [facility] Start: 01-29-2021 COVID-19 Vaccine (4 - Booster for Pfizer series) COVID-19 Vaccine (4 - Booster for Pfizer series) [facility] Start: 02-18-2014 Shingles vaccine (2 of 3) Shingles vaccine (2 of 3) [facility] Start: 2005 Pneumococcal 65+ yea rs Vaccine (1 - PCV) Pneumococcal 65+ years Vaccine (1 - PCV) [facility] Start: 2005 Pneumococcal vaccination Pneumococcal Vaccine(s) (65+ yrs) (1 - PCV) [facility] Start: 1990 Shingles (RZV) Vacci ne (1 of 2) Shingles (RZV) Vaccine ([facility] of 2) [facility] Start: 1990 Shingles vaccine (1 of 2) Shingles vaccine (1 of 2) [facility] Start: 04-26-1959 DTaP/Tdap/Td vaccine (1 - Tdap) DTaP/Tdap/Td vaccine (1 - Tdap) [facility] Start: 1958 Tetanus + diphtheria + acellular pertussis vaccine (product) Tdap Booster [facility] Start: 1952 Depression Screen Depression Screen [facility] Start: 1950 Lipid panel Lipids [facility] Start: 1940 COVID-19 Vaccine (#1) COVID-19 Vacci ne (#1) [facility] End: 03-01-2022 Culture, Urine [facility] Work Phone: Comment on above: 1 Occurrences starti ng 03/01/2022 until 03/01/2022 End: 08-09-2022 Culture, Urine [facility] Comment on above: 1 Occurrences starti ng 08/09/2022 until 08/09/2022 Immunizations Immunization Date Immunization Notes Care Provider [facility] 12-04-2022 Influenza, Seasonal, Quadrivalent, Adjuvanted Clayton Mcfadden MD Work Phone: [facility] 12-04-2022 influenza virus vacc ine, unspecified formulation Clayton Mcfadden MD Work Phone: [facility] 12-08-2021 influenza, injectabl e, quadrivalent, preservative free Clayton Mcfadden MD Work Phone: [facility] 12-08-2021 Influenza, Seasonal, Quadrivalent, Adjuvanted Clayton Mcfadden MD Work Phone: [facility] 12-04-2020 influenza, high dose seasonal, preservative-free Clayton Mcfadden MD Work Phone: [facility] 12-04-2020 Influenza, High-dose Seasonal, Quadrivalent, Preservative Free Clayton Mcfadden MD Work Phone: [facility] 11-29-2019 influenza, injectabl e, quadrivalent, preservative free Clyaton Mcfadden MD Work Phone: [facility] 10-15-2019 influenza, high dose seasonal, preservative-free Clayton Mcfadden MD Work Phone: [facility] 11-07-2018 influenza, injectabl e, quadrivalent, preservative free Clayton Mcfadden MD Work Phone: [facility] 11-07-2018 Seasonal trivalent influenza vaccine, adjuvanted, preservative free Clayton Mcfadden MD Work Phone: [facility] 11-23-2017 influenza, high dose seasonal, preservative-free Clayton Mcfadden MD Work Phone: [facility] 11-23-2017 influenza, injectabl e, quadrivalent, preservative free Clayton Mcfadden MD Work Phone: [facility] 01-31-2017 pneumococcal conjuga te vaccine, 13 valent Clayton Mcfadden MD Work Phone: [facility] 01-19-2017 pneumococcal conjuga te vaccine, 13 valent Clayton Mcfadden MD Work Phone: [facility] 01-17-2017 influenza, high dose seasonal, preservative-free Clayton Mcfadden MD Work Phone: [facility] 01-12-2016 pneumococcal polysaccharide vaccine, 23 valent Clayton Mcfadden MD Work Phone: [facility] 12-16-2015 influenza, high dose seasonal, preservative-free Clayton Mcfadden MD Work Phone: [facility] 01-08-2015 influenza, injectabl e, quadrivalent, preservative free Clayton Mcfadden MD Work Phone: [facility] 01-08-2015 influenza, seasonal, injectable, preservative free Clayton Mcfadden MD Work Phone: [facility] 12-24-2013 zoster vaccine, live Clayton Mcfadden MD Work Phone: [facility] 08-06-2013 pneumococcal polysaccharide vaccine, 23 valent Clayton Mcfadden MD Work Phone: [facility] 12-23-2012 influenza, seasonal, injectable, preservative free Clayton Mcfadden MD Work Phone: [facility] Payers Date Payer Category Payer Unknown [id number] 2022 Unknown [id number] 2022 Private Health Insurance [employer] [facility] [id number] 2022 [id number] 20[facility]-Present [address] [place] [address] [id number] 2010 Medicare [id number] 1959 Medicare [id number] 2.16.840.1.569968.19 1959 Self-pay [id number] 1959 Self-pay [id number] 1959 Unknown [id number] .[id number] 1940 Unknown [id number] 2.16.840.1.172401.3.579.2 .727 1940 Unknown [id number] 2.16.840.1.365471.3.579.2 .727 1940 Unknown [id number] 2.16.840.1.534923.3.579.2 .732 1940 Unknown [id number] 2.16.840.1.747836.3.579.2 .593 1940 Unknown [id number] 2.16.840.1.719788.3.579.2 .593 1940 Unknown [id number] 2.16.840.1.919102.3.579.2 .593 1940 Unknown [id number] 2.16.840.1.260614.3.579.2 .593 1940 Unknown [id number] 2.16.840.1.712619.3.579.2 .593 1940 Unknown [id number] 2.16.840.1.454760.3.579.2 .593 1940 Unknown [id number] 2.16.840.1.842810.3.579.2 .593 1940 Unknown [id number] 2.16.840.1.629396.3.579.2 .593 1940 Unknown [id number] 2.16.840.1.106545.3.579.2 .593 1940 Unknown [id number] 2.16.840.1.588735.3.579.2 .593 1940 Unknown [id number] 2.16.840.1.908074.3.579.2 .593 1940 Unknown [id number] 2.16.840.1.524598.3.579.2 .593 1940 Unknown [id number] 2.16.840.1.832208.3.579.2 .593 1 Unknown [id number] 2.16.840.1.762097.3.579.2 .593 1940 Unknown [id number] 2.16.840.1.158951.3.579.2 .593 1940 Unknown [id number] 2.16.840.1.184613.3.579.2 .173 1940 Unknown [id number] 2.16.840.1.817137.3.579.2 .173 1940 Unknown [id number] 2.16.840.1.487960.3.579.2 .173 1940 Unknown [id number] 2.16.840.1.432845.3.579.2 .173 1940 Unknown [id number] 2.16.840.1.543093.3.579.2 .173 1940 Unknown [id number] 2.16.840.1.629263.3.579.2 .173 1940 Unknown [id number] 2.16.840.1.438943.3.579.2 .1259 1940 Unknown [id number] 2.16.840.1.725158.3.579.2 .1259 1940 Unknown [id number] 2.16.840.1.183312.3.579.2 .1259 1 Unknown [id number] 2.16.840.1.440983.3.579.2 .1259 Unknown [id number] 2.16.840.1.894127.3.579.2 .531 Social History Date Type Detail Facility Start: 10-25-2022 End: 06-25-2023 Sex Assigned At [employer] Other Start: 05-12-2019 Tobacco smoking status Never smoked tobacco (finding) [facility] Start: 1940 Sex Assigned At Male [facility] Start: 03-01-2022 End: 11-12-2023 Tobacco smoking status NHIS Ex-smoker [employer] Phone: Start: 02-20-1964 End: 01-08-1995 History of tobacco use Current smoker [employer] Phone: Start: 02-20-1964 End: 01-08-1995 History of tobacco use Cigarette Smoker [employer] Phone: Start: 03-01-2022 End: 11-12-2023 Tobacco use and exposure Smokeless tobacco non-user [employer] Phone: Start: 03-01-2022 End: 01-15-2023 Alcohol intake Lifetime non-drinker (finding) [employer] Phone: Start: 1940 Sex Assigned At Not on file [employer] Phone: Tobacco smoking stat us [facility] Tobacco smoking consumption unknown [facility] Start: 10-25-2022 End: 06-25-2023 History of Social function [facility] Fear of Current or Ex-Partner Not on file [facility] Within the last year , have you been humiliated or emotionally abused in other ways by your partner or ex-partner? No [facility] Do you belong to any clubs or organizations such as anglican groups, unions, fraternal or athletic groups, or [...] Refused [facility] Start: 08-12-2022 Education 13 [facility] Start: 08-12-2022 Tobacco Comment Stop smoking: >30 years. Last smoked: >10 years [facility] Start: 08-12-2022 Alcohol Comment Caffeine intake: 1-2 cups per day [facility] Start: 12-17-2023 Alcoholic beverage intake Ex-drinker (finding) [facility] How often to you hav e a drink containing alcohol? Never [facility] Do you feel stress - tense, restless, nervous, or anxious, or unable to sleep at night because your mind is troubled all the time - these days [OSQ] Not at all [facility] (I/We) worried whe er (my/our) food would run out before (I/we) got money to buy more. Never true [facility] Medical Equipment Procedure Code Equipment Code Equipment Origin al Text Equipment Identifier Dates 1 each by Other route in the morning and 1 each at noon and 1 each in the evening and 1 each before bedtime. Use as instructed 4 times a day. Sliding scale to titrate blood sugars One touch Ultra Blue. [id number] Start: 03-23-2023 End: 06-21-2023 1 each by Other route in the morning and 1 each in the evening and 1 each before bedtime. Use as instructed. Sliding scale to titrate blood sugars One touch Ultra Blue DX: E11.22, N18.31, Z79.4. [id number] Start: 06-07-2023 Functional Status Date Assessment Result Facility 11-23-2021 Functional Status N/A [facility] Clinical Notes 08-16-2021 to 12-17-2023 Clayton Mcfadden MD - 12/17/2023 3:00 PM EDT Note Date & Type Note Facility 12-17-2023 History of Presen t illness Narrative Images from the original note were not included. Patient ID: Chema Childs is a 83 y.o. male who presents for: He is here with his today Patient presents with right hip pain. Onset of the symptoms was several days ago. Inciting event: none. The patient reports the hip pain is aggravated by walking and is better with sitting . Aggravating symptoms include: going up and down stairs, standing, and walking. Patient has had no prior hip problems. He denies radiation down the leg. He has tried taking OTC Aleve 2 tablets daily since Sunday. The hip pain is actually more posterior of his true right hip. He does have some low back pain but does not think this is changed. No specific Motion makes it better or worse. It does not sound like nerve pain wrapping around. There is no burning or specific aching quality to it, actually is fairly vague. There is no true weakness to any of the leg or the hip. There is no numbness described. Review of Systems Constitutional: Negative for chills and fever. Respiratory: Negative for cough, shortness of breath and wheezing. Cardiovascular: Negative for chest pain and palpitations. Gastrointestinal: Negative for abdominal pain. Genitourinary: Negative for frequency and urgency. Objective The patient is pleasant and in no acute distress The patient does appear to have a gross neurologic deficit, That is about the same for him with word search issues and having to pause significantly or being prompted by his prior to answering questions. The patient has good eye contact and clear speech There is no grossly obvious swelling, bruising, increase calor rubor over the hip region. He does have some lumbar paraspinal muscle hypertonicity right greater than left minimal SI joint tenderness on the right no sciatic notch tenderness. No tenderness directly posterior to the hip with the bursa would be on palpation. No tenderness over the hip joint or the IT band. There is no pain with internal rotation, crossover, internal rotation and crossover. There is some mild discomfort with straight leg raising but this seems to be do more towards muscle tightness. Although he states he felt the percussion tab on his right side was in a nonchalant way and there was no change in his facial expression I think this is negative for CVA tenderness. Visit Vitals Ht 5' 11 Wt 189 lb BMI 26.36 kg/m Smoking Status Former BSA 2.07 m Office Visit on 12/17/2023 Component Date Value Ref Range Status Color, UA 12/17/2023 Light Yellow Final Clarity, UA 12/17/2023 Clear Final Glucose, UA 12/17/2023 Negative Negative - 1999(110) ++++ mg/dL Final Bilirubin, UA 12/17/2023 Negative Negative - 4(70) +++ mg/dL Final Ketones, UA 12/17/2023 Negative Negative - 160(16) ++++ mg/dL Final Spec Grav, UA 12/17/2023 1.005 1 - 1.03 Final Blood, UA 12/17/2023 Negative Negative - 50 Silver/mcL Final pH, UA 12/17/2023 6.0 5 - 9 Final Protein, UA 12/17/2023 Negative Negative - 2000(20) ++++ mg/dL Final Urobilinogen, UA 12/17/2023 0.2 0.2 - 12 mg/dL Final Leukocytes, UA 12/17/2023 Negative Negative - 500+++ Ava/mcL Final Nitrite, UA 12/17/2023 Negative Negative - Positive Final Allergies Allergen Reactions Erythromycin Nausea And Vomiting Erythromycin Base Nausea Only Levofloxacin Diarrhea Metformin Hcl Other Reaction(s): loose bowels Sulfamethoxazole-Trimethoprim Other Reaction(s): GI upset/diarrhea Current Outpatient Medications on File Prior to Visit Medication Sig Dispense Refill albuterol (2.5 MG/3ML) 0.083% nebulizer solution Take 2.5 mg by nebulization every 8 (eight) hours if needed for wheezing. albuterol HFA 90 mcg/act inhaler Inhale 2 puffs every 6 (six) hours if needed for wheezing or shortness of breath. allopurinol (Zyloprim) 100 MG tablet Take 1 tablet (100 mg) by mouth Daily 90 tablet 1 aspirin 81 MG EC tablet Take 81 mg by mouth in the morning. atorvastatin (Lipitor) 20 MG tablet Take 1 tablet (20 mg) by mouth in the evening 90 tablet 1 Bioflavonoid Products (REAL C PO) Take 500 mg by mouth Daily Breztri Aerosphere 160-9-4.8 MCG/ACT aerosol Inhale 2 puffs in the morning and 2 puffs before bedtime. brimonidine (AlphaGAN P) 0.2 % ophthalmic solution Administer 1 drop into the right eye in the morning and 1 drop before bedtime. cyanocobalamin (Vitamin B-12) 1000 MCG tablet Take 2,500 mcg by mouth Daily FIBER COMPLETE PO Take 1 tablet by mouth in the morning. insulin aspart, with niacinamide, (Fiasp FlexTouch) 100 UNIT/ML injection Sliding scale 3 times daily with meals; 141-200=3u, 201-250=5u, 251-300=8u, >300=12u 15 mL 3 latanoprost (Xalatan) 0.005 % ophthalmic solution Administer 1 drop into both eyes at bedtime. losartan (Cozaar) 50 MG tablet Take 1 tablet (50 mg) by mouth Daily 90 tablet 1 magnesium oxide (Mag-Ox) 400 mg tablet Take 1 tablet (400 mg) by mouth Daily 90 tablet 3 metFORMIN XR (Glucophage-XR) 750 MG 24 hr tablet Take 1 tablet (750 mg) by mouth in the evening. Take with meals 90 tablet 1 Multiple Vitamins-Minerals (Multi For Him) tablet Take 1 tablet by mouth in the morning. oxygen (O2) gas Inhale 3 L/min at bedtime via nasal canula polyethylene glycol, PEG, 3350 (Glycolax) 17 GM/SCOOP powder Take 17 g by mouth Daily sodium chloride 0.9 % nebulizer solution Take 3 mL by nebulization if needed timolol (Timoptic) 0.5 % ophthalmic solution Administer 1 drop into both eyes in the morning and 1 drop before bedtime. glucose blood test strip 1 each by Other route in the morning and 1 each in the evening and 1 each before bedtime. Use as instructed. Sliding scale to titrate blood sugars One touch Ultra Blue DX: E11.22, N18.31, Z79.4. 270 each 1 levothyroxine (Synthroid, Levoxyl) 88 MCG tablet Take 1 tablet (88 mcg) by mouth in the morning. Take before meals. 90 tablet 1 omeprazole (PriLOSEC) [address] capsule Take 1 capsule (40 mg) by mouth in the morning. Take before meals. 90 capsule 1 No current facility-administered medications on file prior to visit. 1. Acute right-sided low back pain without sciatica We did have discussion and he ultimately is telling me he thinks it is getting better. There does not appear to be injury. With him and his we have mutually agreed to give this another week. If it is not improving after a week he is going to contact the office and we are going to start with diagnostic imaging. In the meantime I did give him some basic lumbar stretching exercises, piriformis and IT band stretching exercises. I have asked him do this twice daily. He did noted feels better with heat and I have asked him to use a microwave based heating pad not a plug in type. - POCT urinalysis dipstick manually resulted documented in this encounter [facility] 01-31-2023 Evaluation note Encounter Date Diagnosis Assessment [...] were answered he understands agrees the plan. [employer] Other 02-16-2023 NoteEXAMINATION: XR CHEST 2 [...] Electronically authenticated by: ULISSES FRANCO Date: 2022-04-06 08:00[facility]02-09-2023 History of Present illness Narrative* Horace Parra DO - 03/30/2022 10:13 AM EST Images from the original note were not included. EMERGENCY TRIAGE, TREAT AND TRANSPORT (ET3) DOCUMENTATION OF TELEHEALTH VISIT Date / Time: 03/27/20222339 Name: Chema Childs : 1940 SSN: (Not on file) EMS Agency: [facility] [x] Verbal consent obtained [] Implied [...] by: Horace Parra DO documented in this [id number] Evaluation note* Encounter Date Diagnosis Assessment Notes [...] with this plan, and denies any questions. [employer] Other 10-05-2022 Hospital Discharge instructions Patient [...] prostate. Follow these instructions at home: Take ewjf-ean-mlasspp and prescription medicines only as told by [...] 02/02/2001 Document Revised: 04/20/2018 Document Reviewed: 10/26/2016 [employer] Patient Education 2020 Data Impact. Follow Up Care 11/01/2021 10:45:28 With:KONG PEPE PA-C, URL Address: [address] [place] [address] When:3 months [facility] 06-28-2022 Evaluation note* Encounter Date Diagnosis Assessment Notes Treatment Notes Treatment Clinical Notes Jul, Abdominal aortic aneurysm (AAA) 3.0 cm to 5.5 cm in diameter in male (ICD-10 - I71.4) Jul, Other Aortic ulcer wi th small aneurysm Review of the images today hdacjuw-[id number]-[id number] ulcer of the infrarenal aorta that does [...] understand and all the questions were answered. [employer] Other Evaluation + Plan note Future Appointments Appointment Date:02/22/2022 01:20:00 PM Scheduled Provider:KONG PEPE PA-C Location:[facility] Appointment Type:URO Office Visit [facility] evaluation noteNo assessment information available [facility] Work Phone: Evaluation note* Diagnosis BPH with obstruction/lower urinary tract symptoms Hypertrophy of prostate with urinary obstruction and other lower urinary tract symptoms (LUTS) Dysuria documented in this encounter [facility] [employer] Work Phone: evaluation note* Diagnosis Fall, initial encounter- Primary Shortness of breath Tachycardia Tachycardia, unspecified [facility] Dysuria Frequency of micturition Urinary frequency [facility] Diagnosis Type 2 diabetes mellitus with stage 3a chronic kidney disease, with long-term current use of insulin (HCC) (CMS/HCC) [facility] Diagnosis Acute right-sided low back pain without sciatica [facility] Narrative - Reported* Type Description Date Medical History high cholestrol Medical History high blood pressure Medical History acid reflux Surgical History hemorrhoidectomy Hospitalization History acid reflux - observatio n [employer] Other History general Narrative - Reported* Type Description Date Medical History high cholestrol Medical History high blood pressure Medical History acid reflux Surgical History hemorrhoidectomy Surgical History Laser Surgery on prostate Hospitalization History acid reflux - observatio n [employer] Other Hospital course Narrative No data available for this section [facility] progress note No data available for this section [facility] Summary Purpose Family History No Family History [...] section and content) DATE CREATED AUTHOR 08/12/2021 [facility] DATE CREATED AUTHOR AUTHOR'S ORGANIZ ATION 03/15/2022 [facility] DATE CREATED AUTHOR AUTHOR'S ORGANIZ ATION 07/01/2022 [facility] DATE CREATED AUTHOR AUTHOR'S ORGANIZ ATION 07/04/2022 [facility] DATE CREATED AUTHOR AUTHOR'S ORGANIZ ATION 12/02/2022 [facility] DATE CREATED AUTHOR AUTHOR'S ORGANIZ ATION 02/24/2023 [facility] DATE CREATED AUTHOR AUTHOR'S ORGANIZ ATION 12/18/2023 [facility] EPIC REASON FOR VISIT (unrecogniz ed section and content) Reason Comments Fall Reason Comments Med Change Request Reason Comments Hip Pain Patient Care team informatio n (unrecognized section and content) Team Status: Active Member Role Status Dates Clayton Mcfadden MD Primary Care Provider Active Team Status: Inactive Member Role Status Dates Clayton Mcfadden MD Primary Care Provider Active 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 , [employer] Attending Provider Active Team Status: Inactive Member Role Status Dates Clayton Mcfadden MD Primary Care Provider Active Oumar Haynes MD Attending Provider Active Die Technician Relationship Specialty Start Date End Date Clayton Mcfadden MD [address] [place] [address] PCP - General 03/01/22 Die Technician Relationship Specialty Start Date End Date Clayton Mcfadden MD [address] [place] [address] PCP - General 03/01/22 Die Technician Relationship Specialty Start Date End Date Clayton Mcfadden MD [address] [place] [address] PCP - ACO Reach 07/13/22 Clayton Mcfadden MD [address] [place] [address] PCP - General Family Medicine 08/03/22 Briseida Paez, RN Registered Nurse Family Medicine 03/16/23 Die Technician Relationship Specialty Start Date End Date Clayton Mcfadden MD [address] [address] PCP - ACO Reach 07/13/22 Clayton Mcfadden MD [address] [address] PCP - General Family Medicine 08/03/22 Briseida [...] BE BASED ON THE PRIMARY CLINICAL RECORDS. [facility] [employer] [facility]. provides no warranty or guarantee of the accuracy or completeness of information in this document.
== END 2024-01-02 19:52 | disposition home or self-care (01) ==
LOC: SLEEP 19:52
PROVIDERS: PCP Internal Medicine; Visit Provider Internal Medicine
DX: G47.33 Obstructive sleep apnea (adult) (pediatric) (principal); G47.11 Idiopathic hypersomnia with long sleep time
CPT/HCPCS: 95810

== ENCOUNTER 2024-02-04 19:49 | Outpatient (OUT) | payer MEDICARE, SELFPAY ==
--- OUTSIDE RECORDS SUMMARY | 2024-02-04 19:53 | XMS_ITS | CCD ---
Author Organization [facility] Care Team Providers Care Supervisor Lime Name Role Phone Oumar Haynes Unavailable CLAYTON MCFADDEN Primary Care Physician [phone] MD Clayton Mcfadden Primary Care Provider MD [...] SOSA ., DR THELMA Brown Admitting Unavailable [place], DR ULISSES Ivey Consulting Unavailable SHAIKH Matilde [...] SOSA ., DR THELMA Brown Consulting Unavailable REINECK, DR SUSANA Conn Consulting Unavailabl e ADAMS, [...] Hemeyer, MD Edward J Primary Care Provider SHELBY Duff Attending Provider Horace Jasso Unavailable [phone] 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 Attending Unavailable 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 Admitting Unavailable Clayton Mcfadden Primary Care Unavailable Clayton Mcfadden MD Unavailable [phone] Clayton Mcfadden MD Primary Care Provider Briseida Paez RN Unavailable Unavailable Clayton Mcfadden MD Unavailable [phone] Clayton Mcfadden MD Primary Care Provider Briseida Paez RN Unavailable CLAYTON MCFADDEN Attending Unavailable CLAYTON MCFADDEN Attending Unavailable CLAYTON MCFADDEN Attending Unavailable CLAYTON MCFADDEN Attending Unavailable CLAYTON MCFADDEN Attending Unavailable Allergies Allergy Classification Reported Allergen(s) Allergy Type Date of Onset Reaction(s) Facility (10 sources) Sulfamethoxazole / Trimethoprim; Translations: [sulfamethoxazole-tr imethoprim] Drug Allergy 3 Weal (disorder), Rash [facility] (2 sources) Tetracycline; Translations: [tetracycline] Drug Allergy Finding reported by subject or history provider (finding) [facility] (9 sources) Erythromycin Drug Allergy 8 Nausea And Vomiting [facility] (9 sources) levoFLOXacin Drug Allergy 3 Diarrhea [facility] Work Phone: (1 source) Sulfamethoxazole / Trimethoprim Drug Allergy [facility] (7 sources) metFORMIN Drug Allergy 3 [facility] (7 sources) Erythromycin Base Drug Allergy 3 Nausea Only [facility] Healthcare Medications Current Medications Medication Drug Class(es) Dates Sig (Normalized) Sig (Original) [id number] 200 actuat albuterol 0.09 mg/actuat metered dose inhaler (14 sources) beta2-Adrenergic Agonist Start: 09-25-2022 take 2 [...] day Active allopurinol 100 mg oral tablet (13 sources) Xanthine Oxidase Inhibitor Start: End: take [...] Start Date: 05/12/19 Status: Ordered Ascorbic Acid (3 sources) Vitamin C Start: 11-23-2021 Vitamin C Amaya y, Refills(s) 0 Start Date: 11/23/21 Status: Ordered take 1 tablet by mouth in the mo rning ascorbic acid (Vitamin C) 500 MG tablet Take 500 mg by mouth in the morning. Active aspirin 81 mg oral tablet (12 sources) Platelet Aggregation Inhibitor, Nonsteroidal Anti-inflammatory Drug Start: 05-12-2019 take 1 mg by mouth once daily aspirin 81 mg oral tablet mg tab(s), Oral, Daily, Refills(s) 0 Start Date: 05/12/19 Status: Ordered take 1 tablet by mouth in the mo rning aspirin 81 MG EC tablet Take 81 mg by mouth in the morning. Active atorvastatin 20 mg oral tablet (12 sources) HMG-CoA Reductase Inhibitor Start: 05-22-2023 End: 05-10-2024 take 1 tablet by mouth [...] 0 Active Bioflavonoid Products (REAL C PO) (8 sources) take 500 mg by mouth once daily Bioflavonoid Products (REAL C PO) Take 500 mg by mouth Daily Active Bioflavonoid Pro ducts (REAL C PO) Take by mouth 0 Active brimonidine tartrate 2 mg/ml ophthalmic solution (9 sources) alpha-Adrenergic Agonist take 1 drop(s) into [...] / glycopyrrolate 0.009 mg/actuat metered dose inhaler (6 sources) Corticosteroid, beta2-Adrenergic Agonist Start: 08-01-2023 take 2 puff(s) by inhalation in the morning Breztri Aerosphere 160-9-4.8 MCG/ACT aerosol Inhale 2 puffs in the morning and 2 puffs before bedtime. 08/01/2023 Active carboxymethylcellulose sodium 5 mg/ml ophthalmic solution (2 sources) Carboxymethylcel lulose Sodium (EYE DROPS) 0.5 % SOLN Apply to eye 0 Active cefuroxime 500 mg oral tablet (3 sources) Cephalosporin Antibacterial Start: 01-03-2024 End: 01-13-2024 take 1 tablet by mouth in the morning cefuroxime (Ceftin) 500 MG tablet Indications: Acute exacerbation of chronic obstructive pulmonary disease (COPD) ([facility]) Take 1 tablet (500 mg) by mouth in the morning and 1 tablet (500 mg) before bedtime. Do all this for 10 days. 20 tablet 01/03/2024 01/13/2024 Active doxycycline hyclate 100 mg oral capsule [...] insulin aspart, human 100 unt/ml pen injector (8 sources) Insulin Analog Start: 11-12-2023 insulin aspart , with niacinamide, (Fiasp FlexTouch) 100 UNIT/ML injection Indications: Type 2 diabetes mellitus with stage 3a chronic kidney disease, with long-term current use of insulin (HCC) ([facility]) Sliding scale 3 times daily with meals; 141-200=3u, 201-250=5u, 251-300=8u, >300=12u 15 mL 3 11/12/2023 Active Start: 01-15-2023 insulin aspart (NovoLOG) 100 UNIT/ML injection Indications: Type 2 diabetes mellitus with stage 3a chronic kidney disease, with long-term current use of insulin (HCC) ([facility]) Sliding scale 3 times daily with meals; 141-200=3u, 201-250=5u, 251-300=8u, >300=12u 15 mL 01/15/2023 Active Start: 08-08-2022 NOVOLOG FLEXPE N [...] 12/08/2007 Active latanoprost 0.05 mg/ml ophthalmic solution (7 sources) Prostaglandin Analog take 1 drop(s) into [...] week(s), # 28 tab(s), Refills(s) 0, Pharmacy: [facility]/pharmacy #[id number], 180, cm, 11/23/21 10:01:00 EDT, Height/Length Dosing, 84, kg, 11/23/21 10:01:00 EDT, Weight Dosing Start Date: 11/23/21 Stop Date: 12/21/21 Status: Ordered levothyroxine sodium 0.088 mg oral tablet (11 sources) l-Thyroxine Start: 01-15-2023 End: 07-07-2024 take 1 tablet by mouth before mealtime levothyroxine (Synthroid, Levoxyl) 88 MCG tablet Indications: Acquired hypothyroidism (CMS/HCC) Take 1 tablet (88 mcg) by mouth in the morning. Take before meals. 90 tablet 1 05/22/2023 11/18/2023 Active Start: 11-23-2021 take 1 capsule by mo [facility] once daily levothyroxine 88 mcg (0.088 mg) oral capsule 88 mcg = 1 cap(s), Oral, Daily, # 30 cap(s), Refills(s) 0 Start Date: 11/23/21 Status: [facility] daily levothyroxine (SYNTHROID) 88 MCG tablet Take 1 tablet by mouth Daily 0 Active losartan potassium 50 mg oral tablet (14 sources) Angiotensin 2 Receptor [place] Start: 05-22-2023 End: 05-10-2024 take 1 tablet by mouth [...] 0 Start Date: 05/12/19 Status: Ordered Lysine (8 sources) Start: 05-12-2019 take 1 mg by mouth o nce daily lysine mg, Oral, Daily, Refills(s) 0 Start Date: 05/12/19 Status: Ordered take 1 tablet by mouth in the mo rning L-lysine 1000 MG tablet Take 1,000 mg by mouth in the morning. Active magnesium oxide 400 mg oral tablet (7 sources) Start: 05-24-2023 End: 05-23-2024 take 1 [...] hydrochloride 750 mg extended release oral tablet (13 sources) Biguanide Start: 05-22-2023 End: 05-10-2024 take 1 tablet by mouth [...] Active Multiple Vitamins-Minerals (Multi For Him) tablet (7 sources) take 1 tablet by yuan th in the morning Multiple Vitamins-Minerals (Multi For Him) tablet Take 1 tablet by mouth in the morning. Active take 1 tablet by mouth in the mo rning Multiple Vitamins-Minerals (Multi For Him) tablet Take 1 tablet by mouth in the morning. 0 Active omeprazole 40 mg delayed release oral capsule (14 sources) Proton Pump Inhibitor Start: 01-15-2023 End: 07-07-2024 take 1 capsule by mouth before mealtime omeprazole (PriLOSEC) [address] capsule Indications: Gastroesophageal reflux disease without esophagitis Take 1 capsule (40 mg) by mouth in the morning. Take before meals. 90 capsule 1 05/22/2023 11/18/2023 Active Start: 05-12-2019 omeprazole Ora l, Daily, Refills(s) 0 Start Date: 05/12/19 Status: Ordered take 1 capsule by [facility] every twenty-four hours Omeprazole 20 MG 1 capsule Orally Once a day for 30 day(s) Active take 40 mg by mouth once daily O MEPRAZOLE PO Take 40 mg by mouth daily 0 Active Oxygen (7 sources) oxygen (O2) gas Inhale 3 L/min at bedtime via nasal canula Active oxygen (O2) gas Inhale 2 L/min at bedtime via nasal canula Active oxygen (O2) gas Inhale 2 L/min at bedtime via nasal canula 0 Active polyethylene glycol 3350 32805 mg powder for oral solution (6 sources) Osmotic Laxative polyethylene gl ycol, PEG, 3350 (Glycolax) 17 GM/SCOOP powder Indications: Constipation Take 17 g by mouth Daily Active polymyxin b 24729 unt/ml / trimethoprim 1 mg/ml ophthalmic solution (2 sources) Dihydrofolate Reductase Inhibitor Antibacterial, Polymyxin-class Antibacterial Start: 12-08-19 08 take 1 drop(s) into the eye(s) every four hours trimethoprim-polymyx in b (POLYTRIM) 41473-7.1 UNIT/ML-% ophthalmic solution Apply 1 drop to eye every 4 hours 0 12/08/2007 Active Probiotic Product (PROBIOTIC-10 PO) (1 source) Probiotic Produc t (PROBIOTIC-10 PO) Take by mouth 0 Active Ramipril (2 sources) Angiotensin Converting Enzyme Inhibitor Ramipril (ALTACE PO) Take by mouth 0 Active sodium chloride 9 mg/ml inhalation solution (7 sources) Start: 02-27-19 24 sodium chloride 0.9 % nebulizer solution Take 3 mL by nebulization if needed 02/27/2023 Active tamsulosin hydrochloride 0.4 mg oral capsule (3 sources) alpha-Adrenergic [place] Start: 08-10-19 23 take 1 capsule by mouth at bedtime [...] 12 hr timolol 5 mg/ml ophthalmic solution (9 sources) beta-Adrenergic [place] take 1 drop(s) into the eye(s) in the morning timolol (Timoptic) 0.5 % ophthalmic solution Administer 1 drop into both eyes in the morning and 1 drop before bedtime. Active take 1-2 drop(s) int o the eye(s) twice daily timolol (BETIMOL) 0.25 % ophthalmic solution 1-2 drops 2 times daily 0 Active vitamin b12 1 mg oral tablet (8 sources) Vitamin B12 cyanocobalamin ( Vitamin B-12) 1000 MCG tablet Take 2,500 mcg by mouth Daily Active Cyanocobalamin ( VITAMIN B 12) 100 MCG LOZG Take by mouth 0 Active Completed/Discontinued Medications Medication Drug Class(es) Dates Sig (Normalized) Sig (Original) FIBER COMPLETE PO (7 sources) take 1 tablet by yuan th [...] Episodic/Chronic Aortic; peripheral; and visceral artery aneurysms (13 sources) Abdominal aortic aneurysm 3.0 to 5.5 centimeters in male; Translations: [Abdominal aortic aneurysm, without rupture] Onset: 08-16-2021 Resolved: 08-16-2021 Chronic Cardiac dysrhythmias (1 source) Tachycardia; Translations: [Tachycardia, unspecified] Episodic Chronic kidney disease (7 sources) Chronic kidney disease stage 3A ; Translations: [Stage 3a chronic kidney disease (HCC)] Onset: 08-03-2022 08-03-2022 Chronic Chronic kidney disease (1 source) Chronic kidney disease; Translations: [CHRONIC KIDNEY DISEASE STAGE 3A] Onset: 08-05-2021 Chronic obstructive pulmonary disease and bronchiectasis (20 sources) Emphysema, unspecified; Translations: [Chronic obstructive pulmonary disease with (acute) exacerbation] Onset: 04-03-2022 Resolved: 09-25-2022 08-03-2022 Chronic Coronary atherosclerosis and other heart disease (8 sources) Atherosclerotic heart disease of [place] coronary artery without angina pectoris; Translations: [Coronary atherosclerosis] Onset: 05-03-2022 08-03-2022 Chronic Diabetes mellitus with complications (14 sources) Type 2 diabetes mellitus with diabetic chronic kidney disease; Translations: [Insulin treated type 2 diabetes mellitus] Onset: 02-06-2022 Chronic Diabetes mellitus without complication (1 source) Type 2 diabetes mellitus without complications; Translations: [TYPE 2 DM WITHOUT COMPLICATIONS] Onset: 05-03-2022 Chronic Disorders of lipid metabolism (13 sources) Hyperlipidemia, unspecified; Translations: [Pure hypercholesterolemia, unspecified] Onset: 02-01-2022 Chronic E Codes: Adverse effects of medical drugs (1 source) Adverse effect of insulin and oral hypoglycemic [antidiabetic] drugs, initial encounter; Translations: [ADVERS EFF INSULIN ORAL HG RX INIT] Onset: 05-03-2022 Episodic E Codes: Fall (1 source) Fall; Translations: [Unspecified fall, initial encounter] Episodic Esophageal disorders (9 sources) Gastroesophageal reflux disease; Translations: [Gastroesophageal reflux disease without esophagitis] Onset: 08-03-2022 05-12-2019 Chronic Essential hypertension (9 sources) Hypertensive disorder; Translations: [Essential (primary) hypertension] Onset: 05-03-2022 05-12-2019 Chronic Genitourinary symptoms and ill-defined conditions (2 sources) Urge incontinence; Translations: [Urge incontinence] Onset: 12-01-2022 Chronic Glaucoma (20 sources) Glaucoma; Translations: [Bilateral primary open angle glaucoma] Onset: 08-06-2018 Resolved: 09-25-2022 05-12-2019 Chronic Gout and other crystal arthropathies (9 sources) Gout; Translations: [Chronic gout, unspecified, without tophus (tophi)] Onset: 04-23-2022 05-12-2019 Chronic Hepatitis (7 sources) Nonalcoholic steatohepatitis; Translations: [Nonalcoholic steatohepatitis (KAHN)] Onset: 08-03-2022 08-03-2022 Chronic Hyperplasia of prostate (20 sources) Benign prostatic hypertrophy with outflow obstruction; Translations: [Benign prostatic hyperplasia with lower urinary tract symptoms] Onset: 12-23-2015 Chronic Hypertension with complications and secondary hypertension (12 sources) Hypertensive chronic kidney disease with stage 1 through stage 4 chronic kidney disease, or unspecified chronic kidney disease; Translations: [Hypertensive renal disease] Onset: 02-05-2022 Chronic Inflammatory conditions of male genital organs (1 source) Prostatitis; Translations: [Inflammatory disease of prostate, unspecified] Onset: 11-23-2021 Episodic Malaise and fatigue (11 sources) Chronic fatigue, unspecified; Translations: [Fatigue] Onset: 09-21-2021 Chronic Menopausal disorders (1 source) Hormone replacement therapy; Translations: [HORMONE REPLACEMENT THERAPY] Onset: 05-03-2022 Episodic Occlusion or stenosis of precerebral arteries (14 sources) Atherosclerosis of left carotid artery; Translations: [Occlusion and stenosis of left carotid artery] Onset: 12-23-2015 Resolved: 09-25-2022 08-03-2022 Chronic Osteoarthritis (20 sources) Arthritis of left hip; Translations: [Unilateral primary osteoarthritis, left hip] Onset: 08-03-2022 08-03-2022 Chronic Other aftercare (1 source) retirement (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 of aspirin; Translations: [STORE HOST CURRENT USE OF ASPIRIN] Onset: 05-03-2022 Episodic Other aftercare (1 source) Other custodial (current) drug therapy; Translations: [OTH DETENTION CURRENT DRUG THERAPY] Onset: 05-03-2022 Episodic Other aftercare (1 source) retirement (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 of oral hypoglycemic drugs; Translations: [STORE HOST USE ORAL HYPOGLYCEMIC DX] Onset: 05-03-2022 Episodic Other aftercare (9 sources) Polypharmacy ; Translations: [Other intermodal customer service (current) drug therapy] Onset: 08-10-2019 09-25-2022 Episodic Other connective tissue disease (5 sources) Muscle weakness (generalized); Translations: [MUSCLE WEAKNESS GENERALIZED] Onset: 04-24-2022 Episodic Other diseases of bladder and urethra (7 sources) Overactive bladder; Translations: [Overactive bladder] Onset: 10-19-2022 3 Chronic Other diseases of kidney and ureters (3 sources) Other obstructive and reflux uropathy; Translations: [Other obstructive and reflux uropathy] Onset: 03-01-2022 Episodic Other eye disorders (7 sources) Bilateral vitreous degeneration of eyes; Translations: [Vitreous degeneration, bilateral] Onset: 06-09-2015 08-03-2022 Chronic Other lower respiratory disease (9 sources) Interstitial lung disease; Translations: [Interstitial pulmonary disease, unspecified] Onset: 08-03-2022 08-03-2022 Chronic Other lower respiratory disease (4 sources) Other nonspecific abnormal finding of lung field; Translations: [OTH NONSPECIFIC ABN FIND LNG FIELD] Onset: 06-26-2022 Episodic Other male genital disorders (1 source) Impotence 05-12-2019 Chronic Other male genital disorders (7 sources) Erectile dysfunction co-occurrent and due to arterial insufficiency; Translations: [Erectile dysfunction due to arterial insufficiency] Onset: 08-03-2022 08-03-2022 Chronic Other nervous system disorders (1 source) Difficulty in walking, not elsewhere classified; Translations: [DIFFICULTY IN WALKING NEC] Onset: 04-24-2022 Chronic Other nutritional; endocrine; and metabolic disorders (7 sources) Hypomagnesemia; Translations: [Hypomagnesemia] Onset: 03-07-2023 03-07-2023 [...] 12-01-2022 Episodic Respiratory failure; insufficiency; arrest (adult) (9 sources) Acute and chronic respiratory failure with hypoxia; Translations: [Dependence on supplemental oxygen] Onset: 04-23-2022 08-03-2022 Chronic Respiratory failure; insufficiency; arrest (adult) (1 source) Acute respiratory failure with hypoxia; Translations: [ACUTE RESPIRATORY FAIL W/HYPOXIA] Onset: 05-03-2022 Episodic Retinal detachments; defects; vascular occlusion; and retinopathy (7 sources) Retinal disorder; Translations: [Unspecified retinal disorder] Onset: 08-03-2022 08-03-2022 Chronic Septicemia (except in labor) (4 sources) Sepsis, unspecified organism; Translations: [SEPSIS UNSPECIFIED ORGANISM] Onset: 04-19-2022 Episodic Spondylosis; intervertebral disc disorders; other back problems (2 sources) Acute low back pain; Translations: [Acute right-sided low back pain without sciatica] 12-17-2023 Episodic Thyroid disorders (9 sources) Hypothyroidism, unspecified; Translations: [Acquired hypothyroidism] Onset: [...] Date Documented Date Episodic/Chronic Biliary tract disease (7 sources) Biliary calculus; Translations: [Calculus of gallbladder without cholecystitis without obstruction] Onset: 08-03-2022 08-03-2022 Episodic Genitourinary symptoms and ill-defined conditions (12 sources) Dysuria; Translations: [Dysuria] Onset: 03-01-2022 Episodic Heart valve disorders (7 sources) Systolic murmur; Translations: [Cardiac murmur, unspecified] Onset: 08-03-2022 08-03-2022 Episodic Inflammation; infection of eye (except that caused by tuberculosis or sexually transmitteddisease) (7 sources) Blepharitis; Translations: [Squamous blepharitis unspecified eye, unspecified eyelid] Onset: 08-03-2022 08-03-2022 Episodic Nutritional deficiencies (7 sources) Moderate protein energy malnutrition; Translations: [Moderate protein-calorie malnutrition] Onset: 08-03-2022 Resolved: 09-25-2022 09-25-2022 Chronic Other aftercare (6 sources) Long-term current use of inhaled steroid; Translations: [retirement (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 of inhaled steroids] Onset: 09-12-2023 09-12-2023 Episodic Other connective tissue disease (7 sources) Muscle weakness; Translations: [Muscle weakness (generalized)] Onset: 04-08-2022 Resolved: 09-25-2022 09-25-2022 Episodic Other diseases of veins and lymphatics (7 sources) Vascular insufficiency; Translations: [Venous insufficiency (chronic) [...] Episodic Other nutritional; endocrine; and metabolic disorders (7 sources) Hyperuricemia; Translations: [Hyperuricemia without signs of inflammatory arthritis and tophaceous disease] Onset: 08-03-2022 08-03-2022 Episodic Other nutritional; endocrine; and metabolic disorders (7 sources) Overweight; Translations: [Overweight] Onset: 08-03-2022 08-03-2022 Episodic Other screening for suspected conditions (not mental disorders or infectious disease) (4 sources) Encounter for screening for malignant neoplasm of prostate; Translations: [ENC SCREEN MALIG NEOPLASM PROSTATE] Onset: 03-02-2022 Episodic Other upper respiratory disease (7 sources) Bowing of vocal cord; Translations: [Other diseases of vocal cords] Onset: 08-19-2015 09-25-2022 Episodic Pleurisy; pneumothorax; pulmonary collapse (7 sources) Discoid atelectasis; Translations: [Atelectasis] Onset: 08-03-2022 08-03-2022 Episodic Screening and history of mental health and substance abuse codes (8 sources) Personal history of nicotine dependence; Translations: [Ex-smoker] Onset: 03-12-2015 09-25-2022 Episodic Unclassified (1 source) Abdominal aortic aneurysm (AAA) without rupture, unspecified part I71.40 Unclassified (6 sources) Onset: 06-25-2023 06-25-2023 Varicose veins of lower extremity (7 sources) Varicose veins of bilateral lower limbs; Translations: [Asymptomatic varicose veins of bilateral lower extremities] Onset: 08-03-2022 08-03-2022 Episodic Results Test Name Value Interpretation Reference Range Facility Urinalysis macro (dipstick) panel (U)on 12-17-2023 Bilirubin, UA Negative Negative - 4(70) +++ mg/dL [facility] Blood, UA Negative Negative - 50 Silver/mcL [facility] Clarity, UA Clear [facility] Color, UA Light Yellow [facility] Glucose, UA Negative Negative - 2000(110) ++++ mg/dL [facility] Interpretation and review of laboratory results Normal [facility] Ketones, UA Negative Negative - 160(16) ++++ mg/dL [facility] Leukocytes, UA Negative Negative - 500+++ Ava/mcL [facility] Nitrite, UA Negative Negative - Positive [facility] pH, UA 6 5 - 9 [facility] Protein, UA Negative Negative - 2000(20) ++++ mg/dL [facility] Spec Grav, UA 1.005 1 - 1.03 [facility] Urobilinogen, UA 0.2 0.2 - 12 mg/dL [facility] [place] MLR HEMOGLOBIN A1Con 024 Glucose [Mass/Vol] 117 mg/dL [facility] HbA1c (Bld) [Mass fraction] 5.7 % 4.5 - 6.2 % [facility] Comment on above: ADA RECOMMENDED LIMI T 4.0 - 6.0 ADA THERAPEUTIC TARGET < 7.0 ACTION SUGGESTED > 7.0 CLINISYNC [facility] US aortaon 01-31-2023 US aorta [facility] [address] [address] Ultrasound Report Signed Patient: Chema Childs SR MR#: [id number] : 1940 Acct:[id number] Age/Sex: 82 / M ADM Date: 01/31/23 Loc: [facility] Room: Type: [facility] CLI Attending Dr: 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 [employer] Ordering Provider: 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 APRN Date of [...] Horace Jasso MD01/31/2023 11:09 AM Dictation Location: [place] [address] Tech: Gabrielatyson Hoyt Transcribed By: [facility] 01/31/23 1109 Dictated By: Horace Jasso MD 01/31/23 1106 Signed By: 01/31/23 110 [facility] Cult,Urineon 12-02-2022 Cult,Urine Specimen Description .CLEAN CATCH URINE Culture NO GROWTH Report Status FINAL 12/02/2022 [facility] Comment on above: Performed By: #### U RC #### [facility] [address] [place] [address] Watch Parts Inspector: Sandip Smith MD [facility] [address] [place] [address] [place] [address] Watch Parts Inspector: Ulisses Gaines MD OPERATIVE REPORTon OPERATIVE REPORT [address] [address] OPERATIVE REPORT PATIENT NAME: CHEMA CHILDS : 1940 MED REC NO: [id number] ROOM: ACCOUNT NO: [id number] ADMIT DATE: 10/03/2022 PROVIDER: Erica Veras DATE OF PROCEDURE: 10/03/2022 SURGEON: Dr. Erica Veras. FAMILY MEDICINE RESIDENT: None. PREOPERATIVE DIAGNOSES: 1. BPH with lower [...] obtained. The patient was transferred from the [facility] onto the operating room table, where [...] awoken from general anesthesia, transferred to the [facility], and taken to the PACU in satisfactory condition by Nursing and Anesthesia Teams. PLAN: The patient will be discharged home per PACU criterion and follow up with us in [id number] days for Gould catheter removal. ERICA VERAS [id number] Doc#: [id number] CC: [facility] Cult,Urineon 08-29-2022 Cult,Urine Specimen Description .CLEAN CATCH URINE Culture NO GROWTH Report Status FINAL 08/29/2022 Normal [facility] Comment on above: Performed By: #### U RC #### [facility] [address] [place], [place] [id number] Watch Parts Inspector: Sandip Smith MD [facility] [address] [place], [place] [id number] Watch Parts Inspector: Ulisses Gaines MD Urinalysis w/ Microon 2022 Bacteria 1+ Abnormal NONE [facility] Comment on above: Performed By: #### U AMIC #### [facility] [address] [place] [address] Watch Parts Inspector: Ulisses Gaines MD Bilirubin, SemiQt,Ur Negative Normal NEG [facility] Comment on above: Performed By: #### U AMIC #### [facility] [address] [place] [address] Watch Parts Inspector: Ulisses Gaines MD Blood, Urine Negative Normal NEG [facility] Comment on above: Performed By: #### U AMIC #### [facility] [address] [place] [address] [place] [address] Watch Parts Inspector: Ulisses Gaines MD Clarity (U) Clear Normal CLEAR [facility] Comment on above: Performed By: #### U AMIC #### [facility] [address] [place], [place] [id number] Watch Parts Inspector: Ulisses Gaines MD Color (U) Yellow Normal YEL [facility] Comment on above: Performed By: #### U AMIC #### [facility] [address] [place] [address] Watch Parts Inspector: Ulisses Gaines MD Epithelial cells LM Ql (Urine sed) 0 TO 2 Normal 0-5 [facility] Comment on above: Performed By: #### U AMIC #### [facility] [address] [place] [address] Watch Parts Inspector: Ulisses Gaines MD Glucose Ql (U) Negative Normal NEG [facility] Comment on above: Performed By: #### U AMIC #### [facility] [address] [place] [address] [place] [address] Watch Parts Inspector: Ulisses Gaines MD Ketones Ql (U) Negative Normal NEG [facility] Comment on above: Performed By: #### U AMIC #### [facility] [address] [place] [address] [place] [address] Watch Parts Inspector: Ulisses Gaines MD Leukocyte esterase Test strip Ql (U) Negative Normal NEG [facility] Comment on above: Performed By: #### U AMIC #### [facility] [address] [place] [address] Dr. [place], [place] [id number] Watch Parts Inspector: Ulisses Gaines MD Nitrite,Ur Negative Normal NEG [facility] Comment on above: Performed By: #### U AMIC #### [facility] [address] [place] [address] [place] [address] Watch Parts Inspector: Ulisses Gaines MD PH,Ur 6.0 Normal 5.0-9.0 [facility] Comment on above: Performed By: #### U AMIC #### [facility] [address] [place] [address] Dr. [place], [place] [id number] Watch Parts Inspector: Ulisses Gaines MD Protein Ql (U) Negative Normal NEG [facility] Comment on above: Performed By: #### U AMIC #### [facility] [address] [place] [address] Dr[place], [place] [id number] Watch Parts Inspector: Ulisses Gaines MD Spec. [place],Ur 1.015 Normal 1.010-1.020 [facility] Comment on above: Performed By: #### U AMIC #### [facility] [address] [place] [address] Dr[place], [place] [id number] Watch Parts Inspector: Ulisses Gaines MD Urine RBC's None Normal 0-2 [facility] Comment on above: Performed By: #### U AMIC #### [facility] [address] [place] [address] Watch Parts Inspector: Ulisses Gaines MD Urine WBC's 0 TO 2 Normal 0-5 [facility] Comment on above: Performed By: #### U AMIC #### [facility] [address] [place] [address] Watch Parts Inspector: Ulisses Gaines MD Urobilinogen,Ur Normal Normal NORM [facility] Comment on above: Performed By: #### U AMIC #### [facility] [address] [place] [address] Watch Parts Inspector: Ulisses Gaines MD Cult,Urineon 08-10-2022 Cult,Urine Specimen Description .CLEAN CATCH URINE Culture NO GROWTH Report Status FINAL 08/10/2022 Normal [facility] Comment on above: Performed By: #### U RC #### [facility] [address], [place] [id number] Watch Parts Inspector: Sandip Smith MD [address] [place] [address] Watch Parts Inspector: Ulisses Gaines MD HEMOGLOBINon 07-03-2022 Hemoglobin (Bld) [Mass/Vol] 13.6 g/dL Critically low 14.0-18.0 [facility] Comment on above: Performed By: #### P OCGLUC #### [facility] [address] [address] [address] CHEST WO CONon [...] by: PAULINA BOWLES Date: 2022-06-26 16:34 Normal [facility] PULMONARY FUNCTION TESTon PULMONARY FUNCTION [...] supplemental oxygen. Clinical correlation is required. Normal [facility] Cult,Urineon 06-15-2022 Cult,Urine Specimen Description .CLEAN CATCH URINE Culture NO GROWTH Report Status FINAL 06/15/2022 Normal [facility] Comment on above: Performed By: #### U #### [place] [address] Watch Parts Inspector: Sandip Smith MD [facility] [address] [place] [address] Watch Parts Inspector: Ulisses Gaines MD CBC AUTO DIFFon 04-19-2022 BASO # 0.0 103/ul Normal 0.0-0.1 [facility] Comment on above: Performed By: #### L ACT #### [facility] [address] [place] [address] Dr. Kerrie Stark Basophils/100 WBC (Bld) 0.2 % Normal 0.2-2.0 [facility] Comment on above: Performed By: #### L ACT #### [facility] [address] [place] [address] Dr. Kerrie Stark EO # 0.0 103/ul Normal 0.0-0.7 [facility] Comment on above: Performed By: #### L ACT #### [facility] [address] [place] [address] Dr. Kerrie Stark Eosinophils/100 WBC (Bld) 0.2 % Critically low 0.9-7.0 [facility] Comment on above: Performed By: #### L ACT #### [facility] [address] [place] [address] Dr. Kerrie Stark Erythrocyte distribution width (RBC) [Ratio] 13.3 % Normal 11.0-15.0 [facility] Comment on above: Performed By: #### L ACT #### [facility] [address] [place] [address] Dr. Kerrie Stark Hematocrit (Bld) [Volume fraction] 38.8 % Critically low 42.0-54.0 [facility] Comment on above: Performed By: #### L ACT #### [facility] [address] [place] [address] Dr. Kerrie Stark Hemoglobin (Bld) [Mass/Vol] 13.1 g/dL Critically low 14.0-18.0 [facility] Comment on above: Performed By: #### L ACT #### [facility] [address] [place] [address] Dr. Kerrie Stark IG # 0.35 10e3/ul Critically high 0.00-0.[address] [facility] Comment on above: Performed By: #### L ACT #### [facility] [address] [place] [address] Dr. Kerrie tSark IG % 2.6 % Critically high 0.0-0.5 [facility] Comment on above: Performed By: #### L ACT #### [facility] [address] [place] [address] Dr. Kerrie Stark LYMPH # 1.3 103/ul Normal 1.2-3.8 [facility] Comment on above: Performed By: #### L ACT #### [facility] [address] [place] [address] Dr. Kerrie Stark Lymphocytes/100 WBC (Bld) 9.7 % Critically low 20.5-60.0 [facility] Comment on above: Performed By: #### L ACT #### [facility] [address] [place] [address] Dr. Kerrie Stark MANUAL DIFF REQ NO Normal [facility] Comment on above: Performed By: #### L ACT #### [facility] [address] [place] [address] Dr. Kerrie Stark MCH (RBC) [Entitic mass] 32.8 pg Normal 25.9-34.0 [facility] Comment on above: Performed By: #### L ACT #### [facility] [address] [place] [address] Dr. Kerrie Stark MCHC (RBC) [Mass/Vol] 33.8 g/dL Normal 29.9-35.2 [facility] Comment on above: Performed By: #### L ACT #### [facility] [address] [place] [address] Dr. Kerrie Stark MCV (RBC) [Entitic vol] 97.2 fL Critically high 80.0-94.0 [facility] Comment on above: Performed By: #### L ACT #### [facility] [address] [place] [address] Dr. Kerrie Stark MONO # 0.8 103/ul Normal 0.3-0.8 [facility] Comment on above: Performed By: #### L ACT #### [facility] [address] [place] [address] Dr. Kerrie Stark Monocytes/100 WBC (Bld) 5.9 % Normal 1.7-12.0 [facility] Comment on above: Performed By: #### L ACT #### [facility] [address] [address] [address] Kerrie Stark NEUT # 10.8 103/ul Critically high 1.4-6.5 [facility] Comment on above: Performed By: #### L ACT #### [facility] [address] [place] [address] Dr. Kerrie Stark Neutrophils/100 WBC (Bld) 81.4 % Critically high 43.0-75.0 [facility] Comment on above: Performed By: #### L ACT #### [facility] [address] [place] [address] Dr. Kerrie Stark Platelet mean volume (Bld) [Entitic vol] 10.4 fL Normal 9.5-13.5 [facility] Comment on above: Performed By: #### L ACT #### [facility] [address] [place] [address] Dr. Kerrie Stark PLT 158 103/ul Normal 150-450 [facility] Comment on above: Performed By: #### L ACT #### [facility] [address] [place] [address] Dr. Kerrie Stark RBC 3.99 106/ul Critically low 4.70-6.10 [facility] Comment on above: Performed By: #### L ACT #### [facility] [address] [place], [place] [id number] Dr. Kerrie Stark WBC 13.2 103/ul Critically high 4.0-11.0 [facility] Comment on above: Performed By: #### L ACT #### [facility] [address] [place] [address] Dr. Kerrie Stark GLYCOHEMOGLOBIN A1Con 2022 ADA RECOMMENDATION SEE BELOW Normal [facility] Comment on above: Result Comment: ADA RECOMMENDED LIMIT 4.0 - 6.0 ADA THERAPEUTIC TARGET < 7.0 ACTION SUGGESTED > 7.0 Performed By: #### P OCGLUC #### [facility] [address] [address] [address] Kerrie Stark Glucose [Mass/Vol] 206 mg/dL Normal [facility] Comment on above: Performed By: #### P OCGLUC #### [facility] [address] [address] [address] Kerrie Stark HbA1c (Bld) [Mass fraction] 8.8 % Critically high 4.5-6.2 [facility] Comment on above: Performed By: #### P OCGLUC #### [facility] [address] [place] [address] Dr. Kerrie Stark LIPID PROFILEon 04-19-2022 CHOL-HDL RATIO NORM SEE BELOW Normal [facility] Comment on above: Result Comment: 3.3 - 4.4 LOW RISK 4.4 - 7.1 AVERAGE RISK 7.1 - 11.0 MODERATE RISK >11.0 HIGH RISK Performed By: #### D DIM #### [facility] [address] [address] [address] Kerrie Stark Cholesterol [Mass/Vol] 134 mg/dL Normal <=200 [facility] Comment on above: Performed By: #### D DIM #### [facility] [address] [place] [address] Dr. Kerrie Stark Cholesterol in HDL [Mass/Vol] 46 mg/dL Normal 40-60 [facility] Comment on above: Performed By: #### D DIM #### [facility] [address] [address] [address] Kerrie Stark Cholesterol in LDL [Mass/Vol] 65.8 mg/dL Normal [facility] Comment on above: Performed By: #### D DIM #### [facility] [address] [place] [address] Dr. Kerrie Stark Cholesterol.total/Chol esterol in HDL [Mass ratio] 2.9 {ratio} Normal [facility] Comment on above: Performed By: #### D DIM #### [facility] [address] [address] [address] Kerrie Stark HDL NORMAL > or = 60 mg/dl - LOW CARDIOVASCULAR RISK <40 mg/dl - HIGH CARDIOVASCULAR RISK Normal [facility] Comment on above: Performed By: #### D DIM #### [facility] [address] [address] [address] Kerrie Stark LDL CALC NORMAL SEE BELOW Normal [facility] Comment on above: Result Comment: <100 mg/dl OPTIMAL 100 - 129 mg/dl NEAR OR ABOVE OPTIMAL 130 - 159 mg/dl BORDERLINE HIGH 160 - 189 mg/dl HIGH >190 mg/dl VERY HIGH Performed By: #### D DIM #### [facility] [address] [place] [address] Dr. Kerrie Stark Triglyceride [Mass/Vol] 111 mg/dL Normal <=150 [facility] Comment on above: Performed By: #### D DIM #### [facility] [address] [place] [address] Dr. Kerrie Stark VLDL CALC 22.2 mg/dL Normal [facility] Comment on above: Performed By: #### D DIM #### [facility] [address] [address] [address] Kerrie Stark PROF 14(COMP METB)on 023 Albumin [Mass/Vol] 2.6 g/dL Critically low 3.4-5.0 [facility] Comment on above: Performed By: #### D DIM #### [facility] [address] [place] [address] Dr. Kerrie Stark Albumin/Globulin [Mass ratio] 0.8 {ratio} Normal [facility] Comment on above: Performed By: #### D DIM #### [facility] [address] [address] [address] Kerrie Stark ALP [Catalytic activity/Vol] 49 U/L Normal 46-116 [facility] Comment on above: Performed By: #### D DIM #### [facility] [address] [address] [address] Kerrie Stark ALT [Catalytic activity/Vol] 27 U/L Normal 16-63 [facility] Comment on above: Performed By: #### D DIM #### [facility] [address] [address] [address] Kerrie Stark Anion gap [Moles/Vol] 12.1 mmol/L Normal [facility] Comment on above: Performed By: #### D DIM #### [facility] [address] [address] [address] Kerrie Stark AST [Catalytic activity/Vol] 19 U/L Normal 15-37 [facility] Comment on above: Performed By: #### D DIM #### [facility] [address] [address] [address] Kerrie Stark Bilirubin [Mass/Vol] 0.6 mg/dL Normal 0.2-1.0 [facility] Comment on above: Performed By: #### D DIM #### [facility] [address] [address] [address] Kerrie Stark Calcium [Mass/Vol] 9.0 mg/dL Normal 8.5-10.1 [facility] Comment on above: Performed By: #### D DIM #### [facility] [address] [address] [address] Kerrie Stark Chloride [Moles/Vol] 102 mmol/L Normal 98-107 [facility] Comment on above: Performed By: #### D DIM #### [facility] [address] [address] [address] Kerrie Stark CO2 [Moles/Vol] 27.0 mmol/L Normal 21.0-32.0 [facility] Comment on above: Performed By: #### D DIM #### [facility] [address] [address] [address] Kerrie Stark Creatinine [Mass/Vol] 0.90 mg/dL Normal 0.70-1.30 [facility] Comment on above: Performed By: #### D DIM #### [facility] [address] [address] [address] Kerrie Stark EGFR-AF MACANESE >60 Normal >=60 [facility] Comment on above: Performed By: #### D DIM #### [facility] [address] [address] [address] Kerrie Stark EGFR-NON AF MACANESE >60 Normal >=60 [facility] Comment on above: Performed By: #### D DIM #### [facility] [address] [place] [address] Dr. Kerrie Stark Globulin (S) [Mass/Vol] 3.2 g/dL Normal [facility] Comment on above: Performed By: #### D DIM #### [facility] [address] [address] [address] Kerrie Stark Glucose [Mass/Vol] 104 mg/dL Normal 74-106 [facility] Comment on above: Performed By: #### D DIM #### [facility] [address] [place] [address] Dr. Kerrie Stark Potassium [Moles/Vol] 4.1 mmol/L Normal 3.5-5.1 [facility] Comment on above: Performed By: #### D DIM #### [facility] [address] [place] [address] Dr. Kerrie Stark Protein [Mass/Vol] 5.8 g/dL Critically low 6.4-8.2 [facility] Comment on above: Performed By: #### D DIM #### [facility] [address] [place] [address] Dr. Kerrie Stark Sodium [Moles/Vol] 137 mmol/L Normal 136-145 [facility] Comment on above: Performed By: #### D DIM #### [facility] [address] [place] [address] Dr. Kerrie Stark Urea nitrogen [Mass/Vol] 31.0 mg/dL Critically high 7.0-18.0 [facility] Comment on above: Performed By: #### D DIM #### [facility] [address] [place] [address] Dr. Kerrie Stark Urea nitrogen/Creatinine [Mass ratio] 34.4 mg/mg Normal [facility] Comment on above: Performed By: #### D DIM #### [facility] [address] [place] [address] Dr. Kerrie Stark TSHon 04-19-2022 TSH 0.699 uIU/mL Normal 0.358-3.740 [facility] Comment on above: Performed By: #### D DIM #### [facility] [address] [place] [address] Dr. Kerrie Stark VITAMIN D 25 OHon 04-19-2022 VIT D 25-OH 53.9 ng/mL Normal [facility] Comment on above: Performed By: #### D DIM #### [facility] [address] [place] [address] Dr. Kerrie Stark VIT D RANGES SEE BELOW Normal [facility] Comment on above: Result Comment: <20 ng/mL Vit D deficient 20 - <30 ng/mL Vit D insufficient 30 - 100 ng/mL Vit D sufficient >100 ng/mL Potential Toxicity Performed By: #### D DIM #### [facility] [address] [place] [address] Dr. Kerrie Stark CBC W MANUAL DIFFon 04-08-19 23 ATYPICAL LYMPH # Normal [facility] Comment on above: Performed By: #### L ACT #### [facility] [address] [place] [address] Dr. Kerrie Stark ATYPICAL LYMPH % Normal [facility] Comment on above: Performed By: #### L ACT #### [facility] [address] [place] [address] Dr. Kerrie Stark BAND # 0.0 103/ul Normal 0.0-0.3 [facility] Comment on above: Performed By: #### L ACT #### [facility] [address] [place] [address] Dr. Kerrie Stark BAND % 0 % Normal 0-5 [facility] Comment on above: Performed By: #### L ACT #### [facility] [address] [place] [address] Dr. Kerrie Stark BASOM # 0.00 103/ul Normal 0.00-0.10 [facility] Comment on above: Performed By: #### L ACT #### [facility] [address] [place] [address] Dr. Kerrie Stark BASOM % 0.0 % Critically low 0.2-2.0 [facility] Comment on above: Performed By: #### L ACT #### [facility] [address] [place] [address] Dr. Kerrie Stark BLAST # Normal [facility] Comment on above: Performed By: #### L ACT #### [facility] [address] [address] [address] Kerrie Stark BLAST % Normal [facility] Comment on above: Performed By: #### L ACT #### [facility] [address] [address] [address] Kerrie Stark CORRECTED WBC Normal 4.0-11.0 [facility] Comment on above: Performed By: #### L ACT #### [facility] [address] [place] [address] Dr. Kerrie Stark EOS # 0.00 103/ul Normal 0.00-0.70 [facility] Comment on above: Performed By: #### L ACT #### [facility] [address] [place] [address] Dr. Kerrie Stark EOS% 0.0 % Critically low 0.9-7.0 [facility] Comment on above: Performed By: #### L ACT #### [facility] [address] [place] [address] Dr. Kerrie Stark HCT 36.7 % Critically low 42.0-54.0 [facility] Comment on above: Performed By: #### L ACT #### [facility] [address] [place] [address] Dr. Kerrie Stark HGB 12.5 g/dl Critically low 14.0-18.0 [facility] Comment on above: Performed By: #### L ACT #### [facility] [address] [place] [address] Dr. Kerrie Stark LYMPHM # 0.22 103/ul Critically low 1.20-3.80 [facility] Comment on above: Performed By: #### L ACT #### [facility] [address] [place] [address] Dr. Kerrie Stark LYMPHM% 2.0 % Critically low 20.5-60.0 [facility] Comment on above: Performed By: #### L ACT #### [facility] [address] [place] [address] Dr. Kerrie Stark MCH 32.6 pg Normal 25.9-34.0 [facility] Comment on above: Performed By: #### L ACT #### [facility] [address] [place] [address] Dr. Kerrie Stark MCHC 34.1 g/dl Normal 29.9-35.2 [facility] Comment on above: Performed By: #### L ACT #### [facility] [address] [place] [address] Dr. Kerrie Stark MCV 95.8 fL Critically high 80.0-94.0 [facility] Comment on above: Performed By: #### L ACT #### [facility] [address] [place] [address] Dr. Kerrie Stark METAMYELOCYTE # Normal [facility] Comment on above: Performed By: #### L ACT #### [facility] [address] [place] [address] Dr. Kerrie Stark METAMYELOCYTE % Normal [facility] Comment on above: Performed By: #### L ACT #### [facility] [address] [place] [address] Dr. Kerrie Stark MONOM# 0.34 103/ul Normal 0.30-0.80 [facility] Comment on above: Performed By: #### L ACT #### [facility] [address] [place] [address] Dr. Kerrie Stark MONOM% 3.0 % Normal 1.7-12.0 [facility] Comment on above: Performed By: #### L ACT #### [facility] [address] [place] [address] Dr. Kerrie Stark MPV 10.9 fL Normal 9.5-13.5 [facility] Comment on above: Performed By: #### L ACT #### [facility] [address] [address] [address] Kerrie Stark MYELOCYTE # 0.1 103/ul Normal [facility] Comment on above: Performed By: #### L ACT #### [facility] [address] [address] [address] Kerrie Stark MYELOCYTE % 1 % Normal [facility] Comment on above: Performed By: #### L ACT #### [facility] [address] [address] [address] Kerrie Stark NR Normal [facility] Comment on above: Performed By: #### L ACT #### [facility] [address] [address] [address] Kerrie Stark PLT 140 103/ul Critically low 150-450 [facility] Comment on above: Performed By: #### L ACT #### [facility] [address] [address] [address] Kerrie Stark RBC 3.83 106/ul Critically low 4.70-6.10 [facility] Comment on above: Performed By: #### L ACT #### [facility] [address] [place] [address] Dr. Kerrie Stark RDW 12.9 % Normal 11.0-15.0 [facility] Comment on above: Performed By: #### L ACT #### [facility] [address] [address] [address] Kerrie Stark SEG # 10.53 103/ul Critically high 1.40-6.50 [facility] Comment on above: Performed By: #### L ACT #### [facility] [address] [place] [address] Dr. Kerrie Stark SEG % 94.0 % Critically high 43.0-75.0 [facility] Comment on above: Performed By: #### L ACT #### [facility] [address] [address] [address] Kerrie Stark WBC 11.2 103/ul Critically high 4.0-11.0 [facility] Comment on above: Performed By: #### L ACT #### [facility] [address] [address] [address] Kerrie Stark Covid-19 PCR (CVDTB)on 03-22 SARS-CoV-2 (COVID-19) RNA QUE+probe Ql (Unsp spec) Detected Abnormal NOT DETECTED [facility] Comment on above: Result Comment: This test is not yet approved or cleared by the [place] FDA. When there are no FDA-approved or cleared tests available, and other criteria are met, FDA can make tests available under an emergency access mechanism called an Emergency Use Authorization (EUA). The EUA for this test is supported by the Genetic Coordinator of Health and Human Service's declaration that [...] used). Performed By: #### L ACT #### [facility] [address] [place] [address] Dr. Kerrie Stark LACTATE/LACTIC ACIDon 2022 Lactate [Moles/Vol] 1.3 mmol/L Normal 0.4-1.9 [facility] Comment on above: Performed By: #### L ACT #### [facility] [address] [place] [address] Dr. Kerrie Stark POINT OF CARE GLUCOSEon 03-22 Glucose [Mass/Vol] 344 mg/dL Critically high 74-106 [facility] Comment on above: Performed By: #### L ACT #### [facility] [address] [place] [address] Dr. Kerrie Stark Glucose [Mass/Vol] 242 mg/dL Critically high 74-106 [facility] Comment on above: Performed By: #### P OCGLUC #### [facility] [address] [place] [address] Dr. Kerrie Stark PROCALCITONINon 04-08-2022 Procalcitonin 0.06 ng/mL Normal 0.00-0.08 [facility] Comment on above: Result Comment: . [...] obtained. Performed By: #### D DIM #### [facility] [address] [place] [address] Dr. Kerrie Stark PROF 14(COMP METB)on 023 Albumin [Mass/Vol] 2.0 g/dL Critically low 3.4-5.0 [facility] Comment on above: Performed By: #### P OCGLUC #### [facility] [address] [place] [address] Dr. Kerrie Stark Albumin/Globulin [Mass ratio] 0.5 {ratio} Normal [facility] Comment on above: Performed By: #### P OCGLUC #### [facility] [address] [place] [address] Dr. Kerrie Stark ALP [Catalytic activity/Vol] 61 U/L Normal 46-116 [facility] Comment on above: Performed By: #### P OCGLUC #### [facility] [address] [place] [address] Dr. Kerrie Stark ALT [Catalytic activity/Vol] 33 U/L Normal 16-63 [facility] Comment on above: Performed By: #### P OCGLUC #### [facility] [address] [place] [address] Dr. Kerrie Stark Anion gap [Moles/Vol] 13.2 mmol/L Normal [facility] Comment on above: Performed By: #### P OCGLUC #### [facility] [address] [address] [address] Kerrie Stark AST [Catalytic activity/Vol] 27 U/L Normal 15-37 [facility] Comment on above: Performed By: #### P OCGLUC #### [facility] [address] [address] [address] Kerrie Stark Bilirubin [Mass/Vol] 0.3 mg/dL Normal 0.2-1.0 [facility] Comment on above: Performed By: #### P OCGLUC #### [facility] [address] [address] [address] Kerrie Stark Calcium [Mass/Vol] 8.7 mg/dL Normal 8.5-10.1 [facility] Comment on above: Performed By: #### P OCGLUC #### [facility] [address] [address] [address] Kerrie Stark Chloride [Moles/Vol] 102 mmol/L Normal 98-107 [facility] Comment on above: Performed By: #### P OCGLUC #### [facility] [address] [address] [address] Kerrie Stark CO2 [Moles/Vol] 22.0 mmol/L Normal 21.0-32.0 [facility] Comment on above: Performed By: #### P OCGLUC #### [facility] [address] [address] [address] Kerrie Stark Creatinine [Mass/Vol] 0.88 mg/dL Normal 0.70-1.30 [facility] Comment on above: Performed By: #### P OCGLUC #### [facility] [address] [address] [address] Kerrie Stark EGFR-AF MACANESE >60 Normal >=60 [facility] Comment on above: Performed By: #### P OCGLUC #### [facility] [address] [address] [address] Kerrie Stark EGFR-NON AF MACANESE >60 Normal >=60 [facility] Comment on above: Performed By: #### P OCGLUC #### [facility] [address] [address] [address] Kerrie Stark Globulin (S) [Mass/Vol] 3.7 g/dL Normal [facility] Comment on above: Performed By: #### P OCGLUC #### [facility] [address] [address] [address] Kerrie Stark Glucose [Mass/Vol] 266 mg/dL Critically high 74-106 T [facility] Comment on above: Performed By: #### P OCGLUC #### [facility] [address] [address] [address] Kerrie Stark Potassium [Moles/Vol] 4.2 mmol/L Normal 3.5-5.1 [facility] Comment on above: Performed By: #### P OCGLUC #### [facility] [address] [address] [address] Kerrie Stark Protein [Mass/Vol] 5.7 g/dL Critically low 6.4-8.2 [facility] Comment on above: Performed By: #### P OCGLUC #### [facility] [address] [address] [address] Kerrie Stark Sodium [Moles/Vol] 133 mmol/L Critically low 136-145 Th [facility] Comment on above: Performed By: #### P OCGLUC #### [facility] [address] [address] [address] Kerrie Stark Urea nitrogen [Mass/Vol] 21.0 mg/dL Critically high 7.0-18.0 [facility] Comment on above: Performed By: #### P OCGLUC #### [facility] [address] [place] [address] Dr. Kerrie Stark Urea nitrogen/Creatinine [Mass ratio] 23.9 mg/mg Normal [facility] Comment on above: Performed By: #### P OCGLUC #### [facility] [address] [address] [address] Kerrie Stark CBC W MANUAL DIFFon 04-07-19 23 ATYPICAL LYMPH # 0.14 103/ul Normal [facility] Comment on above: Performed By: #### L ACT #### [facility] [address] [place] [address] Dr. Kerrie Stark ATYPICAL LYMPH % 1 % Normal [facility] Comment on above: Performed By: #### L ACT #### [facility] [address] [place] [address] Dr. Kerrie Stark BAND # 0.0 103/ul Normal 0.0-0.3 [facility] Comment on above: Performed By: #### L ACT #### [facility] [address] [place] [address] Dr. Kerrie Stark BAND % 0 % Normal 0-5 [facility] Comment on above: Performed By: #### L ACT #### [facility] [address] [place] [address] Dr. Kerrie Stark BASOM # 0.00 103/ul Normal 0.00-0.10 [facility] Comment on above: Performed By: #### L ACT #### [facility] [address] [place] [address] Dr. Kerrie Stark BASOM % 0.0 % Critically low 0.2-2.0 [facility] Comment on above: Performed By: #### L ACT #### [facility] [address] [place] [address] Dr. Kerrie Stark BLAST # Normal [facility] Comment on above: Performed By: #### L ACT #### [facility] [address] [place] [address] Dr. Kerrie Stark BLAST % Normal [facility] Comment on above: Performed By: #### L ACT #### [facility] [address] [place] [address] Dr. Kerrie Stark CORRECTED WBC Normal 4.0-11.0 [facility] Comment on above: Performed By: #### L ACT #### [facility] [address] [place] [address] Dr. Kerrie Stark EOS # 0.00 103/ul Normal 0.00-0.70 [facility] Comment on above: Performed By: #### L ACT #### [facility] [address] [place] [address] Dr. Kerrie Stark EOS% 0.0 % Critically low 0.9-7.0 [facility] Comment on above: Performed By: #### L ACT #### [facility] [address] [place] [address] Dr. Kerrie Stark HCT 35.9 % Critically low 42.0-54.0 [facility] Comment on above: Performed By: #### L ACT #### [facility] [address] [place] [address] Dr. Kerrie Stark HGB 12.0 g/dl Critically low 14.0-18.0 [facility] Comment on above: Performed By: #### L ACT #### [facility] [address] [place] [address] Dr. Kerrie Stark LYMPHM # 0.28 103/ul Critically low 1.20-3.80 [facility] Comment on above: Performed By: #### L ACT #### [facility] [address] [place] [address] Dr. Kerrie Stark LYMPHM% 2.0 % Critically low 20.5-60.0 [facility] Comment on above: Performed By: #### L ACT #### [facility] [address] [place] [address] Dr. Kerrie Stark MCH 32.6 pg Normal 25.9-34.0 [facility] Comment on above: Performed By: #### L ACT #### [facility] [address] [place] [address] Dr. Kerrie Stark MCHC 33.4 g/dl Normal 29.9-35.2 [facility] Comment on above: Performed By: #### L ACT #### [facility] [address] [place] [address] Dr. Kerrie Stark MCV 97.6 fL Critically high 80.0-94.0 [facility] Comment on above: Performed By: #### L ACT #### [facility] [address] [place] [address] Dr. Kerrie Stark METAMYELOCYTE # Normal [facility] Comment on above: Performed By: #### L ACT #### [facility] [address] [place] [address] Dr. Kerrie Stark METAMYELOCYTE % Normal [facility] Comment on above: Performed By: #### L ACT #### [facility] [address] [address] [address] Kerrie Stark MONOM# 0.00 103/ul Critically low 0.30-0.80 [facility] Comment on above: Performed By: #### L ACT #### [facility] [address] [address] [address] Kerrie Stark MONOM% 0.0 % Critically low 1.7-12.0 [facility] Comment on above: Performed By: #### L ACT #### [facility] [address] [place] [address] Dr. Kerrie Stark MPV 10.6 fL Normal 9.5-13.5 [facility] Comment on above: Performed By: #### L ACT #### [facility] [address] [place] [address] Dr. Kerrie Stark MYELOCYTE # Normal [facility] Comment on above: Performed By: #### L ACT #### [facility] [address] [place] [address] Dr. Kerrie Stark MYELOCYTE % Normal [facility] Comment on above: Performed By: #### L ACT #### [facility] [address] [place] [address] Dr. Kerrie Stark NRBC Normal [facility] Comment on above: Performed By: #### L ACT #### [facility] [address] [place] [address] Dr. Kerrie Stark PLT 125 103/ul Critically low 150-450 [facility] Comment on above: Performed By: #### L ACT #### [facility] [address] [place] [address] Dr. Kerrie Stark RBC 3.68 106/ul Critically low 4.70-6.10 [facility] Comment on above: Performed By: #### L ACT #### [facility] [address] [place] [address] Dr. Kerrie Stark RDW 13.2 % Normal 11.0-15.0 [facility] Comment on above: Performed By: #### L ACT #### [facility] [address] [address] [address] Kerrie Stark SEG # 13.77 103/ul Critically high 1.40-6.[address] [facility] Comment on above: Performed By: #### L ACT #### [facility] [address] [address] [address] Kerrie Stark SEG % 97.0 % Critically high 43.0-75.0 [facility] Comment on above: Performed By: #### L ACT #### [facility] [address] [place] [address] Dr. Kerrie Stark TOXIC GRANULATION 2+ Normal [facility] Comment on above: Performed By: #### L ACT #### [facility] [address] [place] [address] Dr. Kerrie Stark WBC 14.2 103/ul Critically high 4.0-11.0 [facility] Comment on above: Performed By: #### L ACT #### [facility] [address] [address] [address] Kerrie Stakr Covid-19 PCR ([facility])on 03-22 SARS-CoV-2 (COVID-19) RNA QUE+probe Ql (Unsp spec) Detected Abnormal NOT DETECTED [facility] Comment on above: Result Comment: This test is not yet approved or cleared by the [place] FDA. When there are no FDA-approved or cleared tests available, and other criteria are met, FDA can make tests available under an emergency access mechanism called an Emergency Use Authorization (EUA). The EUA for this test is supported by the Genetic Coordinator of Health and Human Service's declaration that [...] used). Performed By: #### L ACT #### [facility] [address] [address] [address] Kerrie Stark LACTATE/LACTIC ACIDon 2022 Lactate [Moles/Vol] 1.1 mmol/L Normal 0.4-1.9 [facility] Comment on above: Performed By: #### P OCGLUC #### [facility] [address] [address] [address] Kerrie Stark POINT OF CARE GLUCOSEon 03-22 Glucose [Mass/Vol] 316 mg/dL Critically high [facility] Comment on above: Performed By: #### P OCGLUC #### [facility] [address] [address] [address] Kerrie Stark Glucose [Mass/Vol] 182 mg/dL Critically high [address] [place] [address] Comment on above: Performed By: #### P OCGLUC #### [facility] [address] [place] [address] Dr. Kerrie Stark Glucose [Mass/Vol] 318 mg/dL Critically high [address] [place] [address] Comment on above: Performed By: #### P OCGLUC #### [facility] [address] [address] [address] Kerrie Stark PROF 14(COMP METB)on 023 Albumin [Mass/Vol] 1.9 g/dL Critically low 3.4-5.0 [facility] Comment on above: Performed By: #### P OCGLUC #### [facility] [address] [place] [address] Dr. Kerrie Stark Albumin/Globulin [Mass ratio] 0.5 {ratio} Normal [facility] Comment on above: Performed By: #### P OCGLUC #### [facility] [address] [place] [address] Dr. Kerrie Stark ALP [Catalytic activity/Vol] 50 U/L Normal 46-116 [facility] Comment on above: Performed By: #### P OCGLUC #### [facility] [address] [address] [address] Kerrie Stark ALT [Catalytic activity/Vol] 24 U/L Normal 16-63 [facility] Comment on above: Performed By: #### P OCGLUC #### [facility] [address] [address] [address] Kerrie Stark Anion gap [Moles/Vol] 12.9 mmol/L Normal [facility] Comment on above: Performed By: #### P OCGLUC #### [facility] [address] [address] [address] Kerrie Stark AST [Catalytic activity/Vol] 19 U/L Normal 15-37 [facility] Comment on above: Performed By: #### P OCGLUC #### [facility] [address] [address] [address] Kerrie Stark Bilirubin [Mass/Vol] 0.3 mg/dL Normal 0.2-1.0 [facility] Comment on above: Performed By: #### P OCGLUC #### [facility] [address] [address] [address] Kerrie Stark Calcium [Mass/Vol] 8.5 mg/dL Normal 8.5-10.1 [facility] Comment on above: Performed By: #### P OCGLUC #### [facility] [address] [address] [address] Kerrie Stark Chloride [Moles/Vol] 103 mmol/L Normal 98-107 [facility] Comment on above: Performed By: #### P OCGLUC #### [facility] [address] [address] [address] Kerrie Stark CO2 [Moles/Vol] 22.2 mmol/L Normal 21.0-32.0 [facility] Comment on above: Performed By: #### P OCGLUC #### [facility] [address] [address] [address] Kerrie Stark Creatinine [Mass/Vol] 1.17 mg/dL Normal 0.70-1.30 [facility] Comment on above: Performed By: #### P OCGLUC #### [facility] [address] [address] [address] Kerrie Stark EGFR-AF MACANESE >60 Normal >=60 [facility] Comment on above: Performed By: #### P OCGLUC #### [facility] [address] [address] [address] Kerrie Stark EGFR-NON AF MACANESE 60 mL/min/1.73m2 Normal >=60 [facility] Comment on above: Performed By: #### P OCGLUC #### [facility] [address] [address] [address] Kerrie Stark Globulin (S) [Mass/Vol] 3.8 g/dL Normal [facility] Comment on above: Performed By: #### P OCGLUC #### [facility] [address] [address] [address] Kerrie Stark Glucose [Mass/Vol] 283 mg/dL Critically high 74-106 T [facility] Comment on above: Performed By: #### P OCGLUC #### [facility] [address] [address] [address] Kerrie Stark Potassium [Moles/Vol] 4.1 mmol/L Normal 3.5-5.1 [facility] Comment on above: Performed By: #### P OCGLUC #### [facility] [address] [address] [address] Kerrie Stark Protein [Mass/Vol] 5.7 g/dL Critically low 6.4-8.2 [facility] Comment on above: Performed By: #### P OCGLUC #### [facility] [address] [address] [address] Kerrie Stark Sodium [Moles/Vol] 134 mmol/L Critically low 136-145 Th [facility] Comment on above: Performed By: #### P OCGLUC #### [facility] [address] [address] [address] Kerrie Stark Urea nitrogen [Mass/Vol] 23.0 mg/dL Critically high 7.0-18.0 [facility] Comment on above: Performed By: #### P OCGLUC #### [facility] [address] [address] [address] Kerrie Stark Urea nitrogen/Creatinine [Mass ratio] 19.7 mg/mg Normal [facility] Comment on above: Performed By: #### P OCGLUC #### [facility] [address] [address] [address] Kerrie Stark CULTURE SPUTUMon 04-06-2022 CULTURE SPUTUM Isolate 1 Grace albicans Light growth of Normal [facility] Comment on above: Performed By: #### S PUTCX #### [facility] [address] [address] [address] Kerrie Stark CULTURE URINEon 04-06-2022 CULTURE URINE Culture Observations: NO GROWTH. Normal [facility] Comment on above: Performed By: #### U RCX #### [facility] [address] [address] [address] Kerrie Stark ER URINE PROFILEon 3 Bilirubin Ql (U) Negative Normal NEGATIVE [facility] Comment on above: Performed By: #### P OCGLUC #### [facility] [address] [place] [address] Dr. Kerrie Stark Clarity (U) CLEAR Normal CLEAR [facility] Comment on above: Performed By: #### P OCGLUC #### [facility] [address] [place] [address] Dr. Kerrie Stark Color (U) YELLOW Normal YELLOW [facility] Comment on above: Performed By: #### P OCGLUC #### [facility] [address] [place] [address] Dr. Kerrie WRIGHTCornelio A micrscopic examination will be performed if indicated. Normal [facility] Comment on above: Performed By: #### P OCGLUC #### [facility] [address] [address] [address] Kerrie Stark Glucose Ql (U) Negative Normal NEGATIVE [facility] Comment on above: Performed By: #### P OCGLUC #### [facility] [address] [address] [address] Kerrie Stark Hemoglobin Ql (U) Negative Normal NEGATIVE [facility] Comment on above: Performed By: #### P OCGLUC #### [facility] [address] [place] [address] Dr. Kerrie Stark Ketones Ql (U) Negative Normal NEGATIVE [facility] Comment on above: Performed By: #### P OCGLUC #### [facility] [address] [address] [address] Kerrie Stark LEUKOCYTES Negative Normal NEGATIVE [facility] Comment on above: Performed By: #### P OCGLUC #### [facility] [address] [address] [address] Kerrie Stark Nitrite Ql (U) Negative Normal NEGATIVE [facility] Comment on above: Performed By: #### P OCGLUC #### [facility] [address] [address] [address] Kerrie Stark pH (U) 6.0 [pH] Normal 5-9 [facility] Comment on above: Performed By: #### P OCGLUC #### [facility] [address] [place] [address] Dr. Kerrie Stark Protein (U) [Mass/Vol] 30 mg/dL Abnormal NEGAT LITTLE/ TRACE [facility] Comment on above: Performed By: #### P OCGLUC #### [facility] [address] [place] [address] Dr. Kerrie Stark SPEC GRAVITY 1.015 Normal 1.005-<=1.025 [facility] Comment on above: Performed By: #### P OCGLUC #### [facility] [address] [place] [address] Dr. Kerrie Stark UR MICRO IND INDICATED Normal [facility] Comment on above: Performed By: #### P OCGLUC #### [facility] [address] [address] [address] Kerrie Stark Urobilinogen Qn (U) 0.2 {Ricky'U}/dL Normal 0.2 - 1. 0 [facility] Comment on above: Performed By: #### P OCGLUC #### [facility] [address] [place] [address] Dr. Kerrie Stark POINT OF CARE GLUCOSEon 03-22 Glucose [Mass/Vol] 301 mg/dL Critically high 74-106 T [facility] Comment on above: Performed By: #### P OCGLUC #### [facility] [address] [address] [address] Kerrie Stark Glucose [Mass/Vol] 272 mg/dL Critically high [address] [place] [address] Comment on above: Performed By: #### P OCGLUC #### [facility] [address] [address] [address] Kerrie Stark Glucose [Mass/Vol] 191 mg/dL Critically high [address] [place] [address] Comment on above: Performed By: #### P OCGLUC #### [facility] [address] [place] [address] Dr. Kerrie Stark Glucose [Mass/Vol] 164 mg/dL Critically high [address] [place] [address] Comment on above: Performed By: #### C BC #### [facility] [address] [place] [address] Dr. Kerrie Stark Glucose [Mass/Vol] 128 mg/dL Critically high [address] [place] [address] Comment on above: Performed By: #### P OCGLUC #### [facility] [address] [place] [address] Dr. Kerrie Stark URINE MICROSCOPIC ONLYon BACTERIA SMALL Abnormal NONE SEEN [facility] Comment on above: Performed By: #### P OCGLUC #### [facility] [address] [place] [address] Dr. Kerrie Stark Bacteria identified Cx Nom (U) INDICATED Normal [facility] Comment on above: Performed By: #### P OCGLUC #### [facility] [address] [address] [address] Kerrie Stark CAST SEEN Abnormal NONE SEEN [facility] Comment on above: Performed By: #### P OCGLUC #### [facility] [address] [address] [address] Kerrie Stark Crystals LM Nom (Urine sed) NONE SEEN Normal NONE SEEN [facility] Comment on above: Performed By: #### P OCGLUC #### [facility] [address] [place] [address] Dr. Kerrie Stark Epithelial cells LM Ql (Urine sed) RARE Normal NONE SEEN /RARE [facility] Comment on above: Performed By: #### P OCGLUC #### [facility] [address] [address] [address] Kerrie Stark HYALINE CAST RARE Normal [facility] Comment on above: Performed By: #### P OCGLUC #### [facility] [address] [place] [address] Dr. Kerrie Stark MUCOUS TRACE Abnormal NONE SEEN [facility] Comment on above: Performed By: #### P OCGLUC #### [facility] [address] [place] [address] Dr. Kerrie Stark RBC 0-2 Normal 0-2 [facility] Comment on above: Performed By: #### P OCGLUC #### [facility] [address] [place] [address] Dr. Kerrie Stark WBC 0-2 Abnormal NONE SEEN [facility] Comment on above: Performed By: #### P OCGLUC #### [facility] [address] [place] [address] Dr. Kerrie Stark BNPon 04-05-2022 Natriuretic peptide B (Bld) [Mass/Vol] 394.0 pg/mL Normal <=1,800.0 [facility] Comment on above: Performed By: #### C BC #### [facility] [address] [place] [address] Dr. Kerrie Stark CBC W MANUAL DIFFon 04-05-19 23 ATYPICAL LYMPH # Normal [facility] Comment on above: Performed By: #### P OCGLUC #### [facility] [address] [place] [address] Dr. Kerrie Stark ATYPICAL LYMPH % Normal [facility] Comment on above: Performed By: #### P OCGLUC #### [facility] [address] [place] [address] Dr. Kerrie Stark BAND # Normal 0.0-0.3 [facility] Comment on above: Performed By: #### P OCGLUC #### [facility] [address] [place] [address] Dr. Kerrie Stark BAND % Normal 0-5 [facility] Comment on above: Performed By: #### P OCGLUC #### [facility] [address] [address] [address] Kerrie Stark BASOM # 0.00 103/ul Normal 0.00-0.10 [facility] Comment on above: Performed By: #### P OCGLUC #### [facility] [address] [address] [address] Kerrie Stark BASOM % 0.0 % Critically low 0.2-2.0 [facility] Comment on above: Performed By: #### P OCGLUC #### [facility] [address] [address] [address] Kerrie Stark BLAST # Normal [facility] Comment on above: Performed By: #### P OCGLUC #### [facility] [address] [address] [address] Kerrie Stark BLAST % Normal [facility] Comment on above: Performed By: #### P OCGLUC #### [facility] [address] [address] [address] Kerrie Stark CORRECTED WBC Normal 4.0-11.0 [facility] Comment on above: Performed By: #### P OCGLUC #### [facility] [address] [address] [address] Kerrie Stark EOS # 0.00 103/ul Normal 0.00-0.70 [facility] Comment on above: Performed By: #### P OCGLUC #### [facility] [address] [address] [address] Kerrie Stark EOS% 0.0 % Critically low 0.9-7.0 [facility] Comment on above: Performed By: #### P OCGLUC #### [facility] [address] [address] [address] Kerrie Stark HCT 43.5 % Normal 42.0-54.0 [facility] Comment on above: Performed By: #### P OCGLUC #### [facility] [address] [place] [address] Dr. Kerrie Stark HGB 14.7 g/dl Normal 14.0-18.0 [facility] Comment on above: Performed By: #### P OCGLUC #### [facility] [address] [address] [address] Kerrie Stark LYMPHM # 0.78 103/ul Critically low 1.20-3.80 [facility] Comment on above: Performed By: #### P OCGLUC #### [facility] [address] [address] [address] Kerrie Stark LYMPHM% 4.0 % Critically low 20.5-60.0 [facility] Comment on above: Performed By: #### P OCGLUC #### [facility] [address] [address] [address] Kerrie Stark MCH 32.5 pg Normal 25.9-34.0 [facility] Comment on above: Performed By: #### P OCGLUC #### [facility] [address] [place] [address] Dr. Kerrie Stark MCHC 33.8 g/dl Normal 29.9-35.2 [facility] Comment on above: Performed By: #### P OCGLUC #### [facility] [address] [place] [address] Dr. Kerrie Stark MCV 96.2 fL Critically high 80.0-94.0 [facility] Comment on above: Performed By: #### P OCGLUC #### [facility] [address] [place] [address] Dr. Kerrie Stark METAMYELOCYTE # Normal [facility] Comment on above: Performed By: #### P OCGLUC #### [facility] [address] [address] [address] Kerrie Stark METAMYELOCYTE % Normal [facility] Comment on above: Performed By: #### P OCGLUC #### [facility] [address] [place] [address] Dr. Kerrie Stark MONOM# 0.58 103/ul Normal 0.30-0.80 [facility] Comment on above: Performed By: #### P OCGLUC #### [facility] [address] [address] [address] Kerrie Stark MONOM% 3.0 % Normal 1.7-12.0 [facility] Comment on above: Performed By: #### P OCGLUC #### [facility] [address] [address] [address] Kerrie Stark MPV 10.1 fL Normal 9.5-13.5 [facility] Comment on above: Performed By: #### P OCGLUC #### [facility] [address] [address] [address] Kerrie Stark MYELOCYTE # Normal [facility] Comment on above: Performed By: #### P OCGLUC #### [facility] [address] [address] [address] Kerrie Stark MYELOCYTE % Normal [facility] Comment on above: Performed By: #### P OCGLUC #### [facility] [address] [place] [address] Dr. Kerrie Stark NRBC Normal [facility] Comment on above: Performed By: #### P OCGLUC #### [facility] [address] [address] [address] Kerrie Stark PLT 181 103/ul Normal 150-450 [facility] Comment on above: Performed By: #### P OCGLUC #### [facility] [address] [address] [address] Kerrie Stark RBC 4.52 106/ul Critically low 4.70-6.10 [facility] Comment on above: Performed By: #### P OCGLUC #### [facility] [address] [address] [address] Kerrie Stark RDW 12.9 % Normal 11.0-15.0 [facility] Comment on above: Performed By: #### P OCGLUC #### [facility] [address] [address] [address] Kerrie Stark SEG # 18.14 103/ul Critically high 1.40-6.[address] [facility] Comment on above: Performed By: #### P OCGLUC #### [facility] [address] [address] [address] Kerrie Stark SEG % 93.0 % Critically high 43.0-75.0 [facility] Comment on above: Performed By: #### P OCGLUC #### [facility] [address] [place], [place] [address] Dr. Kerrie Stark WBC 19.5 103/ul Critically high 4.0-11.0 [facility] Comment on above: Performed By: #### P OCGLUC #### [facility] [address] [place], [place] [address] Dr. Kerrie Stark CTA CHEST WO W [...] [place] Date: 2022-04-05 20:31 Normal [facility] CULTURE BLOODon 04-05-2022 Microscopic examination of blood, culture Culture Observations: NO GROWTH AT 5 DAYS. Normal [facility] Comment on above: Performed By: #### C BC #### [facility] [address] [place] [address] Dr. Kerrie Stark Microscopic examination of blood, culture Culture Observations: NO GROWTH AT 5 DAYS. Normal [facility] Comment on above: Performed By: #### B [id number] #### [facility] [address] [place] [address] Dr. Kerrie Stark LACTATE/LACTIC ACIDon 2022 Lactate [Moles/Vol] 2.7 mmol/L Critically high 0.4-1.9 [facility] Comment on above: Performed By: #### P OCGLUC #### [facility] [address] [place] [address] Dr. Kerrie Stark Lactate [Moles/Vol] 3.2 mmol/L Critically high 0.4-1.9 [facility] Comment on above: Performed By: #### D DIM #### [facility] [address] [place] [address] Dr. Kerrie Stark PH VENOUS BLOODon 04-05-2022 PCO2 VENOUS 42.3 mmHg Normal 40.0-52.0 [facility] Comment on above: Performed By: #### P OCGLUC #### [facility] [address] [place] [address] Dr. Kerrie Stark pH VENOUS 7.400 Normal 7.330-7.430 [facility] Comment on above: Performed By: #### P OCGLUC #### [facility] [address] [place] [address] Dr. Kerrie Stark PROF 14(COMP METB)on 023 Albumin [Mass/Vol] 3.0 g/dL Critically low 3.4-5.0 [facility] Comment on above: Performed By: #### C BC #### [facility] [address] [place] [address] Dr. Kerrie Stark Albumin/Globulin [Mass ratio] 0.7 {ratio} Normal [facility] Comment on above: Performed By: #### C BC #### [facility] [address] [place] [address] Dr. Kerrie Stark ALP [Catalytic activity/Vol] 68 U/L Normal 46-116 [facility] Comment on above: Performed By: #### C BC #### [facility] [address] [address] [address] Kerrie Stark ALT [Catalytic activity/Vol] 29 U/L Normal 16-63 [facility] Comment on above: Performed By: #### C BC #### [facility] [address] [place] [address] Dr. Kerrie Stark Anion gap [Moles/Vol] 12.3 mmol/L Normal [facility] Comment on above: Performed By: #### C BC #### [facility] [address] [place] [address] Dr. Kerrie Stark AST [Catalytic activity/Vol] 19 U/L Normal 15-37 [facility] Comment on above: Performed By: #### C BC #### [facility] [address] [place] [address] Dr. Kerrie Stark Bilirubin [Mass/Vol] 0.7 mg/dL Normal 0.2-1.0 [facility] Comment on above: Performed By: #### C BC #### [facility] [address] [place] [address] Dr. Kerrie Stark Calcium [Mass/Vol] 10.0 mg/dL Normal 8.5-10.1 [facility] Comment on above: Performed By: #### C BC #### [facility] [address] [place] [address] Dr. Kerrie Stark Chloride [Moles/Vol] 96 mmol/L Critically low 98-107 [facility] Comment on above: Performed By: #### C BC #### [facility] [address] [place] [address] Dr. Kerrie Stark CO2 [Moles/Vol] 27.7 mmol/L Normal 21.0-32.0 [facility] Comment on above: Performed By: #### C BC #### [facility] [address] [address] [address] Kerrie Stark Creatinine [Mass/Vol] 1.18 mg/dL Normal 0.70-1.30 [facility] Comment on above: Performed By: #### C BC #### [facility] [address] [address] [address] Kerrie Stark EGFR-AF MACANESE >60 Normal >=60 [facility] Comment on above: Performed By: #### C BC #### [facility] [address] [address] [address] Kerrie Stark EGFR-NON AF MACANESE 59 mL/min/1.73m2 Critically low >=60 [facility] Comment on above: Performed By: #### C BC #### [facility] [address] [place] [address] Dr. Kerrie Stark Globulin (S) [Mass/Vol] 4.5 g/dL Normal [facility] Comment on above: Performed By: #### C BC #### [facility] [address] [address] [address] Kerrie Stark Glucose [Mass/Vol] 189 mg/dL Critically high 74-106 T [facility] Comment on above: Performed By: #### C BC #### [facility] [address] [place] [address] Dr. Kerrie Stark Potassium [Moles/Vol] 4.0 mmol/L Normal 3.5-5.1 [facility] Comment on above: Performed By: #### C BC #### [facility] [address] [address] [address] Kerrie Stark Protein [Mass/Vol] 7.5 g/dL Normal 6.4-8.2 [facility] Comment on above: Performed By: #### C BC #### [facility] [address] [address] [address] Kerrie Stark Sodium [Moles/Vol] 132 mmol/L Critically low 136-145 [facility] Comment on above: Performed By: #### C BC #### [facility] [address] [place] [address] Dr. Kerrie Stark Urea nitrogen [Mass/Vol] 34.0 mg/dL Critically high 7.0-18.0 [facility] Comment on above: Performed By: #### C BC #### [facility] [address] [place] [address] Dr. Kerrie Stark Urea nitrogen/Creatinine [Mass ratio] 28.8 mg/mg Normal [facility] Comment on above: Performed By: #### C BC #### [facility] [address] [place] [address] Dr. Kerrie Stark PROTIMEon 04-05-2022 INR Coag (PPP) [Relative time] 1.00 {INR} Normal [facility] Comment on above: Performed By: #### P OCGLUC #### [facility] [address] [place] [address] Dr. Kerrie Stark INR GUIDELINES SEE BELOW Normal [facility] Comment on above: Result Comment: TOBY RED INR: 2.0 - 3.0 CONDITIONS NOT LISTED BELOW 2.5 - 3.5 FOR PROSTHETIC HEART VALVE REPLACEMENT 2.5 - 3.5 RECURRENT THROMBOSIS Performed By: #### P OCGLUC #### [facility] [address] [place] [address] Dr. Kerrie Stark PT Coag (PPP) [Time] 10.6 s Normal 9.0-11.6 [facility] Comment on above: Performed By: #### P OCGLUC #### [facility] [address] [place] [address] Dr. Kerrie Stark PTTon 04-05-2022 aPTT Coag (Bld) [Time] 28.5 s Normal 22.3-36.2 [facility] Comment on above: Performed By: #### P OCGLUC #### [facility] [address] [place] [address] Dr. Kerrie Stark RESPIRATORY PANEL PLUSon Adenovirus Not detected Normal NOT DETECTED [facility] Comment on above: Performed By: #### L ACT #### [facility] [address] [place] [address] Dr. Kerrie Velázquez Parapertusis Not detected Normal NOT DETECTED [facility] Comment on above: Performed By: #### L ACT #### [facility] [address] [place] [address] Dr. Kerrie Velázquez Pertussis Not detected Normal NOT DETECTED [facility] Comment on above: Performed By: #### L ACT #### [facility] [address] [place] [address] Dr. Kerrie Stark Chlamydia Pneumoniae Not detected Normal NOT DETECTED [facility] Comment on above: Performed By: #### L ACT #### [facility] [address] [place] [address] Dr. Kerrie Stark Coronavirus 229E Not detected Normal NOT DETECTED [facility] Comment on above: Performed By: #### L ACT #### [facility] [address] [place] [address] Dr. Kerrie Stark Coronavirus HKU1 Not detected Normal NOT DETECTED [facility] Comment on above: Performed By: #### L ACT #### [facility] [address] [place] [address] Dr. Kerrie Stark Coronavirus NL63 Not detected Normal NOT DETECTED [facility] Comment on above: Performed By: #### L ACT #### [facility] [address] [place] [address] Dr. Kerrie Stark Coronavirus OC43 Not detected Normal NOT DETECTED [facility] Comment on above: Performed By: #### L ACT #### [facility] [address] [place] [address] Dr. Kerrie Stark Influenza A H1 Not detected Normal NOT DETECTED [facility] Comment on above: Performed By: #### L ACT #### [facility] [address] [place] [address] Dr. Kerrie Stark Influenza A H1 2009 Not detected Normal NOT DETECTED [facility] Comment on above: Performed By: #### L ACT #### [facility] [address] [place] [address] Dr. Kerrie Stark Influenza A H3 Not detected Normal NOT DETECTED [facility] Comment on above: Performed By: #### L ACT #### [facility] [address] [address] [address] Kerrie Stark Influenza B Not detected Normal NOT DETECTED [facility] Comment on above: Performed By: #### L ACT #### [facility] [address] [address] [address] Kerrie Stark Metapneumovirus Not detected Normal NOT DETECTED [facility] Comment on above: Performed By: #### L ACT #### [facility] [address] [address] [address] Kerrie Stark Mycoplas. Pneumoniae Not detected Normal NOT DETECTED [facility] Comment on above: Performed By: #### L ACT #### [facility] [address] [address] [address] Kerrie Stark Parainfluenza 1 Not detected Normal NOT DETECTED [facility] Comment on above: Performed By: #### L ACT #### [facility] [address] [place] [address] Dr. Kerrie Stark Parainfluenza 2 Not detected Normal NOT DETECTED [facility] Comment on above: Performed By: #### L ACT #### [facility] [address] [place] [address] Dr. Kerrie Stark Parainfluenza 3 Not detected Normal NOT DETECTED [facility] Comment on above: Performed By: #### L ACT #### [facility] [address] [place] [address] Dr. Kerrie Stark Parainfluenza 4 Not detected Normal NOT DETECTED [facility] Comment on above: Performed By: #### L ACT #### [facility] [address] [place] [address] Dr. Kerrie Stark Rhino/Enterovirus Not detected Normal NOT DETECTED [facility] Comment on above: Performed By: #### L ACT #### [facility] [address] [place] [address] Dr. Kerrie Strak RP2 Header 1 RESPIRATORY PANEL: VIRUSES Normal [facility] Comment on above: Performed By: #### L ACT #### [facility] [address] [place] [address] Dr. Kerrie Stark RP2 Header 2 RESPIRATORY PANEL: BACTERIA Normal [facility] Comment on above: Performed By: #### L ACT #### [facility] [address] [place] [address] Dr. Kerrie Stark RSV Not detected Normal NOT DETECTED [facility] Comment on above: Performed By: #### L ACT #### [facility] [address] [place] [address] Dr. Kerrie Stark SARS-CoV-2 (COVID-19) RNA QUE+probe Ql (Unsp spec) Detected Abnormal NOT DETECTED [facility] Comment on above: Performed By: #### L ACT #### [facility] [address] [place] [address] Dr. Kerrie Stark TROPONIN, HIGH SENSITIVITYon 04-05-2022 HSTROP 8.4 pg/mL Normal 4.0-76.1 [facility] Comment on above: Result Comment: CUT- OFF POINTS HAVE BEEN ESTABLISHED BASED ON THE FOURTH UNIVERSAL DEFINITIONS OF MYOCARDIAL INFARCTION. THE UPPER REFERENCE LIMIT (URL) OF TROPONIN, DEFINED THE 99TH PERCENTILE OF cTnI DISTRIBUTION IN A REFERENCE POPULATION, HAS BEEN CONFIRMED THE DECISION THRESHOLD FOR AK DIAGNOSIS. Performed By: #### C BC #### [facility] [address] [place] [address] Dr. Kerrie Stark Progress Noteson 03-30-2022 [employer] Authentication Interface Message Text EMERGENCY TRIAGE, TREAT AND TRANSPORT (ET3) DOCUMENTATION OF TELEHEALTH VISIT Date / Time: 03/27/2022 / 0 Name: Chema Childs : 1940 SSN: (Not on file) EMS Agency: [facility] [x] Verbal consent obtained [] Implied [...] Completed by: Horace Parra DO Normal [facility] [employer] [facility] CBC W MANUAL DIFFon 03-29-19 23 ATYPICAL LYMPH # Normal [facility] Comment on above: Performed By: #### L ACT #### [facility] [address] [address] [address] Kerrie Stark ATYPICAL LYMPH % Normal [facility] Comment on above: Performed By: #### L ACT #### [facility] [address] [address] [address] Kerrie Stark BAND # 0.0 103/ul Normal 0.0-0.3 [facility] Comment on above: Performed By: #### L ACT #### [facility] [address] [address] [address] Kerrie Stark BAND % 0 % Normal 0-5 [facility] Comment on above: Performed By: #### L ACT #### [facility] [address] [address] [address] Kerrie Stark BASOM # 0.00 103/ul Normal 0.00-0.10 [facility] Comment on above: Performed By: #### L ACT #### [facility] [address] [place] [address] Dr. Kerrie Stark BASOM % 0.0 % Critically low 0.2-2.0 [facility] Comment on above: Performed By: #### L ACT #### [facility] [address] [address] [address] Kerrie Stark BLAST # Normal [facility] Comment on above: Performed By: #### L ACT #### [facility] [address] [place] [address] Dr. Kerrie Stark BLAST % Normal [facility] Comment on above: Performed By: #### L ACT #### [facility] [address] [place] [address] Dr. Kerrie Stark CORRECTED WBC Normal 4.0-11.0 [facility] Comment on above: Performed By: #### L ACT #### [facility] [address] [place] [address] Dr. Kerrie Stark EOS # 0.00 103/ul Normal 0.00-0.70 [facility] Comment on above: Performed By: #### L ACT #### [facility] [address] [place] [address] Dr. Kerrie Stark EOS% 0.0 % Critically low 0.9-7.0 [facility] Comment on above: Performed By: #### L ACT #### [facility] [address] [place] [address] Dr. Kerrie Stark HCT 37.3 % Critically low 42.0-54.0 [facility] Comment on above: Performed By: #### L ACT #### [facility] [address] [place] [address] Dr. Kerrie Stark HGB 12.0 g/dl Critically low 14.0-18.0 [facility] Comment on above: Performed By: #### L ACT #### [facility] [address] [place] [address] Dr. Kerrie Stark LYMPHM # 0.00 103/ul Critically low 1.20-3.80 [facility] Comment on above: Performed By: #### L ACT #### [facility] [address] [place] [address] Dr. Kerrie Stark LYMPHM% 0.0 % Critically low 20.5-60.0 [facility] Comment on above: Performed By: #### L ACT #### [facility] [address] [place] [address] Dr. Kerrie Stark MCH 33.1 pg Normal 25.9-34.0 [facility] Comment on above: Performed By: #### L ACT #### [facility] [address] [place] [address] Dr. Kerrie Stark MCHC 32.2 g/dl Normal 29.9-35.2 [facility] Comment on above: Performed By: #### L ACT #### [facility] [address] [place] [address] Dr. Kerrie Stark MCV 103.0 fL Critically high 80.0-94.0 [facility] Comment on above: Performed By: #### L ACT #### [facility] [address] [place] [address] Dr. Kerrie Stark METAMYELOCYTE # Normal [facility] Comment on above: Performed By: #### L ACT #### [facility] [address] [place] [address] Dr. Kerrie Stark METAMYELOCYTE % Normal [facility] Comment on above: Performed By: #### L ACT #### [facility] [address] [place] [address] Dr. Kerrie Stark MONOM# 0.69 103/ul Normal 0.30-0.80 [facility] Comment on above: Performed By: #### L ACT #### [facility] [address] [place] [address] Dr. Kerrie Stark MONOM% 5.0 % Normal 1.7-12.0 [facility] Comment on above: Performed By: #### L ACT #### [facility] [address] [address] [address] Kerrie Stark MPV 10.6 fL Normal 9.5-13.5 [facility] Comment on above: Performed By: #### L ACT #### [facility] [address] [address] [address] Kerrie Stark MYELOCYTE # Normal [facility] Comment on above: Performed By: #### L ACT #### [facility] [address] [address] [address] Kerrie Stark MYELOCYTE % Normal [facility] Comment on above: Performed By: #### L ACT #### [facility] [address] [place] [address] Dr. Kerrie Stark NRBC Normal [facility] Comment on above: Performed By: #### L ACT #### [facility] [address] [place] [address] Dr. Kerrie Stark PLT 158 103/ul Normal 150-450 [facility] Comment on above: Performed By: #### L ACT #### [facility] [address] [place] [address] Dr. Kerrie Stark RBC 3.62 106/ul Critically low 4.70-6.10 [facility] Comment on above: Performed By: #### L ACT #### [facility] [address] [place] [address] Dr. Kerrie Stark RDW 13.2 % Normal 11.0-15.0 [facility] Comment on above: Performed By: #### L ACT #### [facility] [address] [place] [address] Dr. Kerrie Stark SEG # 13.02 103/ul Critically high 1.40-6.[address] [facility] Comment on above: Performed By: #### L ACT #### [facility] [address] [place] [address] Dr. Kerrie Stark SEG % 95.0 % Critically high 43.0-75.0 [facility] Comment on above: Performed By: #### L ACT #### [facility] [address] [address] [address] Kerrie Stark WBC 13.7 103/ul Critically high 4.0-11.0 [facility] Comment on above: Performed By: #### L ACT #### [facility] [address] [place] [address] Dr. Kerrie Stark POINT OF CARE GLUCOSEon Glucose [Mass/Vol] 300 mg/dL Critically high 74-106 T [facility] Comment on above: Performed By: #### C BC #### [facility] [address] [place] [address] Dr. Kerrie Stark PROF CHEM 8 (BAS METB)on Anion gap [Moles/Vol] 12.5 mmol/L Normal [facility] Comment on above: Performed By: #### D DIM #### [facility] [address] [place] [address] Dr. Kerrie Stark Calcium [Mass/Vol] 8.9 mg/dL Normal 8.5-10.1 [facility] Comment on above: Performed By: #### D DIM #### [facility] [address] [place] [address] Dr. Kerrie Stark Chloride [Moles/Vol] 103 mmol/L Normal 98-107 [facility] Comment on above: Performed By: #### D DIM #### [facility] [address] [place] [address] Dr. Kerrie Stark CO2 [Moles/Vol] 25.4 mmol/L Normal 21.0-32.0 [facility] Comment on above: Performed By: #### D DIM #### [facility] [address] [place] [address] Dr. Kerrie Stark Creatinine [Mass/Vol] 1.05 mg/dL Normal 0.70-1.30 [facility] Comment on above: Performed By: #### D DIM #### [facility] [address] [place] [address] Dr. Kerrie Stark EGFR-AF MACANESE >60 Normal >=60 [facility] Comment on above: Performed By: #### D DIM #### [facility] [address] [address] [address] Kerrie Stark EGFR-NON AF MACANESE >60 Normal >=60 [facility] Comment on above: Performed By: #### D DIM #### [facility] [address] [address] [address] Kerrie Stark Glucose [Mass/Vol] 243 mg/dL Critically high 74-106 T [facility] Comment on above: Performed By: #### D DIM #### [facility] [address] [address] [address] Kerrie Stark Potassium [Moles/Vol] 3.9 mmol/L Normal 3.5-5.1 [facility] Comment on above: Performed By: #### D DIM #### [facility] [address] [address] [address] Kerrie Stark Sodium [Moles/Vol] 137 mmol/L Normal 136-145 [facility] Comment on above: Performed By: #### D DIM #### [facility] [address] [address] [address] Kerrie Stark Urea nitrogen [Mass/Vol] 22.0 mg/dL Critically high 7.0-18.0 [facility] Comment on above: Performed By: #### D DIM #### [facility] [address] [place] [address] Dr. Kerrie Stark Urea nitrogen/Creatinine [Mass ratio] 21.0 mg/mg Normal [facility] Comment on above: Performed By: #### D DIM #### [facility] [address] [address] [address] Kerrie Stark CARDIAC CONSTANTINE 3-6on 3 CK [Catalytic activity/Vol] 91 U/L Normal 39-308 [facility] Comment on above: Performed By: #### C MREP #### [facility] [address] [address] [address] Kerrie Stark CK.MB [Mass/Vol] 0.35 ng/mL Normal <=3.60 [facility] Comment on above: Performed By: #### C MREP #### [facility] [address] [address] [address] Kerrie Stark HSTROP 20.8 pg/mL Normal 4.0-76.1 [facility] Comment on above: Result Comment: CUT- OFF POINTS HAVE BEEN ESTABLISHED BASED ON THE FOURTH UNIVERSAL DEFINITIONS OF MYOCARDIAL INFARCTION. THE UPPER REFERENCE LIMIT (URL) OF TROPONIN, DEFINED THE 99TH PERCENTILE OF cTnI DISTRIBUTION IN A REFERENCE POPULATION, HAS BEEN CONFIRMED THE DECISION THRESHOLD FOR AK DIAGNOSIS. Performed By: #### C MREP #### [facility] [address] [place] [address] Dr. Kerrie Stark CARDIAC CONSTANTINE ADMITon 023 CK [Catalytic activity/Vol] 56 U/L Normal 39-308 [facility] Comment on above: Performed By: #### D DIM #### [facility] [address] [place] [address] Dr. Kerrie Stark CK.MB [Mass/Vol] 0.36 ng/mL Normal <=3.60 [facility] Comment on above: Performed By: #### D DIM #### [facility] [address] [place] [address] Dr. Kerrie Stark HSTROP 12.7 pg/mL Normal 4.0-76.1 [facility] Comment on above: Result Comment: CUT- OFF POINTS HAVE BEEN ESTABLISHED BASED ON THE FOURTH UNIVERSAL DEFINITIONS OF MYOCARDIAL INFARCTION. THE UPPER REFERENCE LIMIT (URL) OF TROPONIN, DEFINED THE 99TH PERCENTILE OF cTnI DISTRIBUTION IN A REFERENCE POPULATION, HAS BEEN CONFIRMED THE DECISION THRESHOLD FOR AK DIAGNOSIS. Performed By: #### D DIM #### [facility] [address] [place] [address] Dr. Kerrie Stark KIKE 128 ng/mL Critically high 16-96 [facility] Comment on above: Performed By: #### D DIM #### [facility] [address] [place] [address] Dr. Kerrie Stark CBC AUTO DIFFon 03-28-2022 BASO # 0.0 103/ul Normal 0.0-0.1 [facility] Comment on above: Performed By: #### C BC #### [facility] [address] [place] [address] Dr. Kerrie Stark Basophils/100 WBC (Bld) 0.2 % Normal 0.2-2.0 [facility] Comment on above: Performed By: #### C BC #### [facility] [address] [place] [address] Dr. Kerrie Stark EO # 0.0 103/ul Normal 0.0-0.7 [facility] Comment on above: Performed By: #### C BC #### [facility] [address] [place] [address] Dr. Kerrie Stark Eosinophils/100 WBC (Bld) 0.1 % Critically low 0.9-7.0 [facility] Comment on above: Performed By: #### C BC #### [facility] [address] [place] [address] Dr. Kerrie Stark Erythrocyte distribution width (RBC) [Ratio] 13.3 % Normal 11.0-15.0 [facility] Comment on above: Performed By: #### C BC #### [facility] [address] [place] [address] Dr. Kerrie Stark Hematocrit (Bld) [Volume fraction] 41.9 % Critically low 42.0-54.0 [facility] Comment on above: Performed By: #### C BC #### [facility] [address] [place] [address] Dr. Kerrie Stark Hemoglobin (Bld) [Mass/Vol] 13.3 g/dL Critically low 14.0-18.0 [facility] Comment on above: Performed By: #### C BC #### [facility] [address] [place] [address] Dr. Kerrie Stark IG # 0.04 10e3/ul Critically high 0.00-0.[address] [facility] Comment on above: Performed By: #### C BC #### [facility] [address] [place] [address] Dr. Kerrie Stark IG % 0.4 % Normal 0.0-0.5 [facility] Comment on above: Performed By: #### C BC #### [facility] [address] [place] [address] Dr. Kerrie Stark LYMPH # 0.5 103/ul Critically low 1.2-3.8 [facility] Comment on above: Performed By: #### C BC #### [facility] [address] [place] [address] Dr. Kerrie Stark Lymphocytes/100 WBC (Bld) 5.1 % Critically low 20.5-60.0 [facility] Comment on above: Performed By: #### C BC #### [facility] [address] [place] [address] Dr. Kerrie Stark MANUAL DIFF REQ NO Normal [facility] Comment on above: Performed By: #### C BC #### [facility] [address] [place] [address] Dr. Kerrie Stark MCH (RBC) [Entitic mass] 33.2 pg Normal 25.9-34.0 [facility] Comment on above: Performed By: #### C BC #### [facility] [address] [place] [address] Dr. Kerrie Stark MCHC (RBC) [Mass/Vol] 31.7 g/dL Normal 29.9-35.2 [facility] Comment on above: Performed By: #### C BC #### [facility] [address] [place] [address] Dr. Kerrie Stark MCV (RBC) [Entitic vol] 104.5 fL Critically high 80.0-94.0 [facility] Comment on above: Performed By: #### C BC #### [facility] [address] [place] [address] Dr. Kerrie Stark MONO # 1.1 103/ul Critically high 0.3-0.8 [facility] Comment on above: Performed By: #### C BC #### [facility] [address] [place] [address] Dr. Kerrie Stark Monocytes/100 WBC (Bld) 10.9 % Normal 1.7-12.0 [facility] Comment on above: Performed By: #### C BC #### [facility] [address] [place] [address] Dr. Kerrie Stark NEUT # 8.3 103/ul Critically high 1.4-6.5 [facility] Comment on above: Performed By: #### C BC #### [facility] [address] [place] [address] Dr. Kerrie Stark Neutrophils/100 WBC (Bld) 83.3 % Critically high 43.0-75.0 [facility] Comment on above: Performed By: #### C BC #### [facility] [address] [place] [address] Dr. Kerrie Stark Platelet mean volume (Bld) [Entitic vol] 10.8 fL Normal 9.5-13.5 [facility] Comment on above: Performed By: #### C BC #### [facility] [address] [place] [address] Dr. Kerrie Stark PLT 145 103/ul Critically low 150-450 [facility] Comment on above: Performed By: #### C BC #### [facility] [address] [place] [address] Dr. Kerrie Stark RBC 4.01 106/ul Critically low 4.70-6.10 [facility] Comment on above: Performed By: #### C BC #### [facility] [address] [place] [address] Dr. Kerrie Stark WBC 10.0 103/ul Normal 4.0-11.0 [facility] Comment on above: Performed By: #### C BC #### [facility] [address] [place] [address] Dr. Kerrie Stark CTA CHEST WO W [...] FAROOQ HARDEN Date: 2022-03-28 06:03 Normal [facility] Covid-19 PCR (CVDTBH)on SARS-CoV-2 (COVID-19) RNA QUE+probe Ql (Unsp spec) Detected Abnormal NOT DETECTED [facility] Comment on above: Result Comment: This test is not yet approved or cleared by the [place] FDA. When there are no FDA-approved or cleared tests available, and other criteria are met, FDA can make tests available under an emergency access mechanism called an Emergency Use Authorization (EUA). The EUA for this test is supported by the Genetic Coordinator of Health and Human Service's declaration that [...] used). Performed By: #### C BC #### [facility] [address] [place] [id number] Kerrie Stark D-DIMERon 03-28-2022 D-DIMER 0.71 mg/L FEU Critically high <=0.59 [facility] Comment on above: Performed By: #### D DIM #### [facility] [address] [place] [address] Dr. Kerrie Stark D-DIMER COMMENTS SEE BELOW Normal [facility] Comment on above: Result Comment: Incr [...] hospitalization. Performed By: #### D DIM #### [facility] [address] [place] [address] Dr. Kerrie Stark ER URINE PROFILEon 3 Bilirubin Ql (U) Negative Normal NEGATIVE [facility] Comment on above: Performed By: #### P OCGLUC #### [facility] [address] [place] [address] Dr. Kerrie Stark Clarity (U) CLEAR Normal CLEAR [facility] Comment on above: Performed By: #### P OCGLUC #### [facility] [address] [place] [address] Dr. Kerrie Stark Color (U) YELLOW Normal YELLOW [facility] Comment on above: Performed By: #### P OCGLUC #### [facility] [address] [place] [address] Dr. Kerrie NOLASCOD A micrscopic examination will be performed if indicated. Normal [facility] Comment on above: Performed By: #### P OCGLUC #### [facility] [address] [place] [address] Dr. Kerrie Stark Glucose Ql (U) Negative Normal NEGATIVE [facility] Comment on above: Performed By: #### P OCGLUC #### [facility] [address] [place] [address] Dr. Kerrie Stark Hemoglobin Ql (U) Negative Normal NEGATIVE [facility] Comment on above: Performed By: #### P OCGLUC #### [facility] [address] [place] [address] Dr. Kerrie Stark Ketones Ql (U) TRACE Abnormal NEGATIVE [facility] Comment on above: Performed By: #### P OCGLUC #### [facility] [address] [place] [address] Dr. Kerrie Stark LEUKOCYTES Negative Normal NEGATIVE [facility] Comment on above: Performed By: #### P OCGLUC #### [facility] [address] [place] [address] Dr. Kerrie Stark Nitrite Ql (U) Negative Normal NEGATIVE [facility] Comment on above: Performed By: #### P OCGLUC #### [facility] [address] [place] [address] Dr. Kerrie Stark pH (U) 5.5 [pH] Normal 5-9 [facility] Comment on above: Performed By: #### P OCGLUC #### [facility] [address] [place] [address] Dr. Kerrie Stark Protein (U) [Mass/Vol] 30 mg/dL Abnormal NEGAT LITTLE/ TRACE [facility] Comment on above: Performed By: #### P OCGLUC #### [facility] [address] [place] [address] Dr. Kerrie Stark SPEC GRAVITY 1.025 Normal 1.005-<=1.025 [facility] Comment on above: Performed By: #### P OCGLUC #### [facility] [address] [place] [address] Dr. Kerrie Stark UR MICRO IND NOT INDICATED Normal [facility] Comment on above: Performed By: #### P OCGLUC #### [facility] [address] [place] [address] Dr. Kerrie Stark Urobilinogen Qn (U) 1.0 {Ricky'U}/dL Normal 0.2 - 1. 0 [facility] Comment on above: Performed By: #### P OCGLUC #### [facility] [address] [place] [address] Dr. Kerrie Stark INFLUENZA A AND B AGon 03-28 INFLUANEGH SEE BELOW Normal [facility] Comment on above: Result Comment: Nega tive for Flu A protein angiten. Infection due to Flu A cannot be ruled out. Flu A angiten in the sample may be below the detection limit of the test. Performed By: #### L ACT #### [facility] [address] [place] [address] Dr. Kerrie Stark [facility] SEE BELOW Normal [facility] Comment on above: Result Comment: Nega tive for Flu B protein antigen. Infection due to Flu B cannot be ruled out. Flu B antigen in the sample may be below the detection limit of the test. Performed By: #### L ACT #### [facility] [address] [place] [address] Dr. Kerrie Stark INFLUENZA A AG Negative Normal NEGATIVE SEE COMMENT [facility] Comment on above: Performed By: #### L ACT #### [facility] [address] [place] [address] Dr. Kerrie Stark INFLUENZA B AG Negative Normal NEGATIVE SEE COMMENT [facility] Comment on above: Performed By: #### L ACT #### [facility] [address] [place] [address] Dr. Kerrie Stark POINT OF CARE GLUCOSEon Glucose [Mass/Vol] 251 mg/dL Critically high [facility] Comment on above: Performed By: #### C BC #### [facility] [address] [place] [address] Dr. Kerrie Stark Glucose [Mass/Vol] 244 mg/dL Critically high -106 [facility] Comment on above: Performed By: #### B LDCX1 #### [facility] [address] [place] [address] Dr. Kerrie Stark Glucose [Mass/Vol] 398 mg/dL Critically high -106 [facility] Comment on above: Performed By: #### P OCGLUC #### [facility] [address] [place] [address] Dr. Kerrie Stark PROF CHEM 8 (BAS METB)on Anion gap [Moles/Vol] 17.2 mmol/L Normal [facility] Comment on above: Performed By: #### D DIM #### [facility] [address] [address] [address] Kerrie Stark Calcium [Mass/Vol] 9.0 mg/dL Normal 8.5-10.1 [facility] Comment on above: Performed By: #### D DIM #### [facility] [address] [address] [address] Kerrie Stark Chloride [Moles/Vol] 96 mmol/L Critically low 98-107 [facility] Comment on above: Performed By: #### D DIM #### [facility] [address] [address] [address] Kerrie Stark CO2 [Moles/Vol] 23.6 mmol/L Normal 21.0-32.0 [facility] Comment on above: Performed By: #### D DIM #### [facility] [address] [address] [address] Kerrie Stark Creatinine [Mass/Vol] 1.41 mg/dL Critically high 0.70-1.30 [facility] Comment on above: Performed By: #### D DIM #### [facility] [address] [address] [address] Kerrie Stark EGFR-AF MACANESE 58 mL/min/1.73m2 Critically low >=60 [facility] Comment on above: Performed By: #### D DIM #### [facility] [address] [address] [address] Kerrie Stark EGFR-NON AF MACANESE 48 mL/min/1.73m2 Critically low >=60 [facility] Comment on above: Performed By: #### D DIM #### [facility] [address] [address] [address] Kerrie Stark Glucose [Mass/Vol] 151 mg/dL Critically high 74-106 [facility] Comment on above: Performed By: #### D DIM #### [facility] [address] [address] [address] Kerrie Stark Potassium [Moles/Vol] 3.8 mmol/L Normal 3.5-5.1 [facility] Comment on above: Performed By: #### D DIM #### [facility] [address] [place], [place] [address] Dr. Kerrie Stark Sodium [Moles/Vol] 133 mmol/L Critically low 136-145 [facility] Comment on above: Performed By: #### D DIM #### [facility] [address] [address] [address] Kerrie Stark Urea nitrogen [Mass/Vol] 20.0 mg/dL Critically high 7.0-18.0 [facility] Comment on above: Performed By: #### D DIM #### [facility] [address] [address] [address] Kerrie Stark Urea nitrogen/Creatinine [Mass ratio] 14.2 mg/mg Normal [facility] Comment on above: Performed By: #### D DIM #### [facility] [address] [address] [address] Kerrie Stark XR CHEST 2 Von [...] by: PONCHO ROCHA Date: 2022-03-28 01:38 Normal [facility] Auth for Release of Medical Recordson 03-09-2022 Auth for Release of Medical Records [id number] #[id number] Normal [facility] Cult,Urineon 03-02-2022 Cult,Urine Specimen Description .CLEAN CATCH URINE Culture NO SIGNIFICANT GROWTH Report Status FINAL 03/02/2022 Normal [facility] Comment on above: Performed By: #### U RC #### [address] [id number] Watch Parts Inspector: Sandip Smith MD [facility] [address] [place], [place] [id number] Watch [employer] Inspector: Ulisses Gaines MD Urinalysis w/ Microon 2022 Bacteria TRACE Abnormal NONE [facility] Comment on above: Performed By: #### U AMIC #### [facility] [address] [place], [place] [id number] [employer] Inspector: Ulisses Gaines MD Bilirubin, SemiQt,Ur Negative Normal NEG [facility] Comment on above: Performed By: #### U AMIC #### [facility] [address] [place] [address] Dr. [place], [place] [id number] Watch [employer] Inspector: Ulisses Gaines MD Blood, Urine Negative Normal NEG [facility] Comment on above: Performed By: #### U AMIC #### [facility] [address] [place] [address] Dr. [place], [place] [id number] [employer] Inspector: Ulisses Gaines MD Clarity (U) Clear Normal CLEAR [facility] Comment on above: Performed By: #### U AMIC #### [address] [place] [address] Watch [employer] Inspector: Ulisses Gaines MD Color (U) Yellow Normal YEL [facility] Comment on above: Performed By: #### U AMIC #### [facility] [address] [place] [address] Dr. [place], [place] [phone] Watch [employer] Inspector: Ulisses Gaines MD Epithelial cells LM Ql (Urine sed) 0 TO 2 Normal 0-5 [facility] Comment on above: Performed By: #### U AMIC #### [facility] [address] [place] [address] [place] [address] Watch [employer] Inspector: Ulisses Gaines MD Glucose Ql (U) Negative Normal NEG [facility] Comment on above: Performed By: #### U AMIC #### [facility] [address] [place] [id number] Watch [employer] Inspector: Ulisses Gaines MD Ketones Ql (U) Negative Normal NEG [facility] Comment on above: Performed By: #### U AMIC #### [facility] [address] [place], [place] [id number] Watch [employer] Inspector: Ulisses Gaines MD Leukocyte esterase Test strip Ql (U) Negative Normal NEG [facility] Comment on above: Performed By: #### U AMIC #### [facility] [address] [place], [place] [id number] [employer] Inspector: Ulisses Gaines MD Nitrite,Ur Negative Normal NEG [facility] Comment on above: Performed By: #### U AMIC #### [facility] [address] [place], [place] [id number] Watch [employer] Inspector: Ulisses Gaines MD PH,Ur 6.0 Normal 5.0-9.0 [facility] Comment on above: Performed By: #### U AMIC #### [facility] [address] [place], [place] [phone] Watch [employer] Inspector: Ulisses Gaines MD Protein Ql (U) Negative Normal NEG [facility] Comment on above: Performed By: #### U AMIC #### [facility] [address] [place], [place] [phone] [employer] Inspector: Ulisses Gaines MD Spec. [place],Ur 1.010 Normal 1.010-1.020 [facility] Comment on above: Performed By: #### U AMIC #### [facility] [address] [place], [place] [phone] Watch [employer] Inspector: Ulisses Gaines MD Urine RBC's None Normal 0-2 [facility] Comment on above: Performed By: #### U AMIC #### [facility] [address] [place], [place] [phone] Watch [employer] Inspector: Ulisses Gaines MD Urine WBC's None Normal 0-5 [facility] Comment on above: Performed By: #### U AMIC #### [facility] [address] [place] [address] Watch [employer] Inspector: Ulisses Gaines MD Urobilinogen,Ur Normal Normal NORM [facility] Comment on above: Performed By: #### U AMIC #### [facility] [address] [place] [address] Watch [employer] Inspector: Ulisses Gaines MD Urinalysis with Microscopico n 03-01-2022 Bacteria, UA TRACE Abnormal None [facility] Bilirubin Urine Negative NEGATIVE [facility] Color, UA Yellow Yellow [facility] Epithelial Cells UA 0 TO 2 [facility] S [facility] Glucose, Ur Negative NEGATIVE [facility] Interpretation and review of laboratory results Abnormal [facility] Ketones Ql (U) Negative NEGATIVE [facility] Leukocyte esterase Test strip Ql (U) Negative NEGATIVE [facility] Nitrite, Urine Negative NEGATIVE [facility] pH, UA 6.0 5.0 - 9.0 [facility] Protein, UA Negative NEGATIVE [facility] RBC, UA None [facility] Specific [place], UA 1.010 1.010 - 1.020 [facility] Turbidity UA Clear Clear [facility] Urine Hgb Negative NEGATIVE [facility] Urobilinogen, Urine Normal Normal [facility] WBC, UA None [facility] GLYCOHEMOGLOBIN A1Con 2021 ADA RECOMMENDATION SEE BELOW Normal [facility] Comment on above: Result Comment: ADA RECOMMENDED LIMIT 4.0 - 6.0 ADA THERAPEUTIC TARGET < 7.0 ACTION SUGGESTED > 7.0 Performed By: #### P OCGLUC #### [facility] [address] [address] [address] Kerrie Stark Glucose [Mass/Vol] 146 mg/dL Normal [facility] Comment on above: Performed By: #### P OCGLUC #### [facility] [address] [address] [address] Kerrie Stark HbA1c (Bld) [Mass fraction] 6.7 % Critically high 4.5-6.2 [facility] Comment on above: Performed By: #### P OCGLUC #### [facility] [address] [address] [address] Kerrie Stark LIPID PROFILEon 02-01-2022 CHOL-HDL RATIO NORM SEE BELOW Normal [facility] Comment on above: Result Comment: 3.3 - 4.4 LOW RISK 4.4 - 7.1 AVERAGE RISK 7.1 - 11.0 MODERATE RISK >11.0 HIGH RISK Performed By: #### P OCGLUC #### [facility] [address] [place] [address] Dr. Kerrie Stark Cholesterol [Mass/Vol] 127 mg/dL Normal <=200 Th [facility] Comment on above: Performed By: #### P OCGLUC #### [facility] [address] [address] [address] Kerrie Stark Cholesterol in HDL [Mass/Vol] 50 mg/dL Normal 40-60 [facility] Comment on above: Performed By: #### P OCGLUC #### [facility] [address] [place] [address] Dr. Kerrie Stark Cholesterol in LDL [Mass/Vol] 58.8 mg/dL Normal [facility] Comment on above: Performed By: #### P OCGLUC #### [facility] [address] [address] [address] Kerrie Stark Cholesterol.total/Chol esterol in HDL [Mass ratio] 2.5 {ratio} Normal [facility] Comment on above: Performed By: #### P OCGLUC #### [facility] [address] [place] [address] Dr. Kerrie Stark HDL NORMAL > or = 60 mg/dl - LOW CARDIOVASCULAR RISK <40 mg/dl - HIGH CARDIOVASCULAR RISK Normal [facility] Comment on above: Performed By: #### P OCGLUC #### [facility] [address] [place] [address] Dr. Kerrie Stark LDL CALC NORMAL SEE BELOW Normal [facility] Comment on above: Result Comment: <100 mg/dl OPTIMAL 100 - 129 mg/dl NEAR OR ABOVE OPTIMAL 130 - 159 mg/dl BORDERLINE HIGH 160 - 189 mg/dl HIGH >190 mg/dl VERY HIGH Performed By: #### P OCGLUC #### [facility] [address] [address] [address] Kerrie Stark Triglyceride [Mass/Vol] 91 mg/dL Normal <=150 [facility] Comment on above: Performed By: #### P OCGLUC #### [facility] [address] [address] [address] Kerrie Stark VLDL CALC 18.2 mg/dL Normal [facility] Comment on above: Performed By: #### P OCGLUC #### [facility] [address] [address] [address] Kerrie tSark PROF 14(COMP METB)on 022 Albumin [Mass/Vol] 3.8 g/dL Normal 3.4-5.0 [facility] Comment on above: Performed By: #### P OCGLUC #### [facility] [address] [address] [address] Kerrie Stark Albumin/Globulin [Mass ratio] 1.0 {ratio} Normal [facility] Comment on above: Performed By: #### P OCGLUC #### [facility] [address] [address] [address] Kerrie Stark ALP [Catalytic activity/Vol] 56 U/L Normal 46-116 [facility] Comment on above: Performed By: #### P OCGLUC #### [facility] [address] [address] [address] Kerrie Stark ALT [Catalytic activity/Vol] 30 U/L Normal 16-63 [facility] Comment on above: Performed By: #### P OCGLUC #### [facility] [address] [address] [address] Kerrie Stark Anion gap [Moles/Vol] 13.3 mmol/L Normal [facility] Comment on above: Performed By: #### P OCGLUC #### [facility] [address] [address] [address] Kerrie Stark AST [Catalytic activity/Vol] 26 U/L Normal 15-37 [facility] Comment on above: Performed By: #### P OCGLUC #### [facility] [address] [place] [address] Dr. Kerrie Stark Bilirubin [Mass/Vol] 0.7 mg/dL Normal 0.2-1.0 [facility] Comment on above: Performed By: #### P OCGLUC #### [facility] [address] [place] [address] Dr. Kerrie Stark Calcium [Mass/Vol] 9.0 mg/dL Normal 8.5-10.1 [facility] Comment on above: Performed By: #### P OCGLUC #### [facility] [address] [place] [address] Dr. Kerrie Stark Chloride [Moles/Vol] 105 mmol/L Normal 98-107 [facility] Comment on above: Performed By: #### P OCGLUC #### [facility] [address] [place] [address] Dr. Kerrie Stark CO2 [Moles/Vol] 28.3 mmol/L Normal 21.0-32.0 [facility] Comment on above: Performed By: #### P OCGLUC #### [facility] [address] [place] [address] Dr. Kerrie Stark Creatinine [Mass/Vol] 1.00 mg/dL Normal 0.70-1.30 [facility] Comment on above: Performed By: #### P OCGLUC #### [facility] [address] [place] [address] Dr. Kerrie Stark EGFR-AF MACANESE >60 Normal >=60 [facility] Comment on above: Performed By: #### P OCGLUC #### [facility] [address] [place] [address] Dr. Kerrie Stark EGFR-NON AF MACANESE >60 Normal >=60 [facility] Comment on above: Performed By: #### P OCGLUC #### [facility] [address] [place] [address] Dr. Kerrie Stark Globulin (S) [Mass/Vol] 3.7 g/dL Normal [facility] Comment on above: Performed By: #### P OCGLUC #### [facility] [address] [address] [address] Kerrie Stark Glucose [Mass/Vol] 150 mg/dL Critically high 74-106 [facility] Comment on above: Performed By: #### P OCGLUC #### [facility] [address] [address] [address] Kerrie Stark Potassium [Moles/Vol] 5.6 mmol/L Critically high 3.5-5.1 [facility] Comment on above: Performed By: #### P OCGLUC #### [facility] [address] [address] [address] Kerrie Stark Protein [Mass/Vol] 7.5 g/dL Normal 6.4-8.2 [facility] Comment on above: Performed By: #### P OCGLUC #### [facility] [address] [address] [address] Kerrie Stark Sodium [Moles/Vol] 141 mmol/L Normal 136-145 [facility] Comment on above: Performed By: #### P OCGLUC #### [facility] [address] [address] [address] Kerrie Stark Urea nitrogen [Mass/Vol] 18.0 mg/dL Normal 7.0-18.0 [facility] Comment on above: Performed By: #### P OCGLUC #### [facility] [address] [address] [address] Kerrie Stark Urea nitrogen/Creatinine [Mass ratio] 18.0 mg/mg Normal [facility] Comment on above: Performed By: #### P OCGLUC #### [facility] [address] [address] [address] Kerrie Stark Creatinine (Bld) [Mass/Vol]O rdered By: Oumar Haynes on 01-30-2022 Creatinine [Mass/Vol] 1.0 mg/dL 0.6-1.3 [facility] Comment on above: ER/ESD physician is notified/shown all ISTAT results.Critical values may be confirmed by laboratory testing ifdeemed necessary by ER attending doctor. No Panel InformationOrdered By: Oumar Haynes on 01-30-2022 POC Estimated GFR > 60 [facility] Comment on above: GFR estimated refere nce range: According to KDOQI guidelines, <60 ml/min/1.73m2 is sufficient to diagnose a patient with chronic kidney disease. POC Estimated GFR Non- Amer > 60 [facility] Auth for Release of Medical Recordson 12-22-2021 Auth for Release of Medical Records [id number] #1.00CD:127 Normal [facility] Formson 11-25-2021 Forms [id number] #1.00CD:127 Normal [facility] Patient Educationon 11-24-19 Patient Education Infectious [...] Follow these instructions at home: ? Take iemy-aff-vepnagq and prescription medicines only as told by [...] 04/20/2018 Docum (more content not included)... Normal [facility] Urology Office/Clinic Noteon 11-23-2021 Urology Office/Clinic [...] w 4 wks abx. side effects/risks discussed. life advisor clearance 62-70, no renal dose adjustment needed. encouraged probiotics, metamucil, and yogurt to help w diarrhea. complete entire abx course. 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 [address] Additional Instructions: Patient Education Prostatitis Problem List/Past [...] Protein Urine Dipstick: Negative (11/23/21 09:44:00) Specific [place] Urine Dipstick: 1.015 (11/23/21 09 (more content not included)... Normal [facility] Comment on above: Result Comment: Elec tronically Signed By: KONG PEPE PA-C\.reynaldo\Date and Time Signed: 11/23/21 11:02 EDT Historical Records Officeon 11-01-2021 Historical Records Office [id number] #1.00CD:127 Normal [facility] FREE T3on 09-21-2021 FREE T3 1.88 pg/mlL Critically low 2.18-3.98 [facility] Comment on above: Performed By: #### P OCGLUC #### [facility] [address] [place] [address] Dr. Kerrie Stark FREE T4on 09-21-2021 Free T4 [Mass/Vol] 1.28 ng/dL Normal 0.76-1.46 [facility] Comment on above: Performed By: #### D DIM #### [facility] [address] [place] [address] Dr. Kerrie Stark TSHon 09-21-2021 TSH 0.625 uIU/mL Normal 0.358-3.740 [facility] Comment on above: Performed By: #### P OCGLUC #### [facility] [address] [place] [address] Dr. Kerrie Stark CTA Abdomen/Pelvis w/ and [...] by Harpal Crane on 08/11/2021 1410 Normal [facility] Specialist CREATININEon 08-03-2021 Creatinine [Mass/Vol] 0.98 mg/dL Normal 0.70-1.30 [facility] Comment on above: Performed By: #### L ACT #### [facility] [address] [place] [address] Dr. Kerrie Stark EGFR-AF MACANESE >60 Normal >=60 [facility] Comment on above: Performed By: #### L ACT #### [facility] [address] [address] [address] Kerrie Stark EGFR-NON AF MACANESE >60 Normal >=60 [facility] Comment on above: Performed By: #### L ACT #### [facility] [address] [address] [address] Kerrie Stark GLYCOHEMOGLOBIN A1Con 2021 ADA RECOMMENDATION SEE BELOW Normal [facility] Comment on above: Result Comment: ADA RECOMMENDED LIMIT 4.0 - 6.0 ADA THERAPEUTIC TARGET < 7.0 ACTION SUGGESTED > 7.0 Performed By: #### P OCGLUC #### [facility] [address] [place] [address] Dr. Kerrie Stark Glucose [Mass/Vol] 146 mg/dL Normal [facility] Comment on above: Performed By: #### P OCGLUC #### [facility] [address] [address] [address] Kerrie Stark HbA1c (Bld) [Mass fraction] 6.7 % Critically high 4.5-6.2 [facility] Comment on above: Performed By: #### P OCGLUC #### [facility] [address] [address] [address] Kerrie Stark Vital Signs Date Time Vital Sign Value Performing Clinician Facility 01-03-2024 10:41-0500 Body height 180.3 cm Clayton Mcfadden MD Work Phone: [facility] 01-03-2024 10:41-0500 Body mass index (BMI) [Ratio] 26.36 kg/m2 Clayton Mcfadden MD Work Phone: [facility] 01-03-2024 10:41-0500 Body temperature 98.1 [degF] Clayton Mcfadden MD Work Phone: [facility] 01-03-2024 10:41-0500 Body weight 85.73 kg Clayton Mcfadden MD Work Phone: [facility] 01-03-2024 10:41-0500 Heart rate 61 /min Clayton Mcfadden MD Work Phone: [facility] 01-03-2024 10:41-0500 SaO2% (BldA) [Mass fraction] 92 % Clayton Mcfadden MD Work Phone: [facility] 12-17-2023 14:55-0400 Body height 180.3 cm Clayton Mcfadden MD Work Phone: [facility] 12-17-2023 14:55-0400 Body mass index (BMI) [Ratio] 26.36 kg/m2 Clayton Mcfadden MD Work Phone: [facility] 12-17-2023 14:55-0400 Body weight 85.73 kg Clayton Mcfadden MD Work Phone: [facility] 01-31-2023 10:00-0500 Body height 175.26 cm Horace Jasso Other [employer] Other 01-31-2023 10:00-0500 Body mass index (BMI) [Ratio] 27.32 kg/m2 Horace Jasso Other [employer] Other 01-31-2023 10:00-0500 Body temperature 97.6 [degF] Horace Jasso Other [employer] Other 01-31-2023 10:00-0500 Body weight 83.92 kg Horace Jasso Other [employer] Other 01-31-2023 10:00-0500 Diastolic blood pressure 64 mm[Hg] Horace Jasso Other [employer] Other 01-31-2023 10:00-0500 SaO2% (BldA) [Mass fraction] 94 % Horace Jasso Other [employer] Other 01-31-2023 10:00-0500 Systolic blood pressure 108 mm[Hg] Horace Fernandezpatti Other [employer] Other 03-27-2022 23:40-0500 Diastolic blood pressure 78 mm[Hg] [facility] 03-27-2022 23:40-0500 Heart rate 121 /min [facility] 03-27-2022 23:40-0500 Respiratory rate 22 /min [facility] [employer] 03-27-2022 23:40-0500 SaO2% (BldA) [Mass fraction] 92 % [facility] [employer] 03-27-2022 23:40-0500 Systolic blood pressure 137 mm[Hg] [facility] [employer] 01-31-2022 12:00-0500 Body height 175.26 cm Yolette Sherin Other [employer] Other 01-31-2022 12:00-0500 Body mass index (BMI) [Ratio] 27.32 kg/m2 Yolette Sherin Other [employer] Other 01-31-2022 12:00-0500 Body temperature 96.4 [degF] Yolette Thompsonyusuf Other [employer] Other 01-31-2022 12:00-0500 Body weight 83.92 kg Yolette Sherin Other [employer] Other 01-31-2022 12:00-0500 Diastolic blood pressure 72 mm[Hg] 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 Other [employer] Other 01-31-2022 12:00-0500 SaO2% (BldA) [Mass fraction] 97 % 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 Other [employer] Other 01-31-2022 12:00-0500 Systolic blood pressure 120 mm[Hg] 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 Other [employer] Other 11-23-2021 09:59-0400 Blood Pressure Location KONG PEPE [facility] 11-23-2021 09:59-0400 Diastolic blood pressure 70 mm[Hg] KONG PEPE [facility] 11-23-2021 09:59-0400 Heart rate 66 /min KONG PEPE [facility] 11-23-2021 09:59-0400 Systolic blood pressure 132 mm[Hg] KONG PEPE [facility] 08-16-2021 12:45-0400 Body height 175.26 cm Oumar Haynes Other [employer] Other 08-16-2021 12:45-0400 Body mass index (BMI) [Ratio] 27.32 kg/m2 Oumar Haynes Other [employer] Other 08-16-2021 12:45-0400 Body temperature 96.9 [degF] Oumar Haynes Other [employer] Other 08-16-2021 12:45-0400 Body weight 83.92 kg Oumar Haynes Other [employer] Other 08-16-2021 12:45-0400 Diastolic blood pressure 78 mm[Hg] Oumar Haynes Other [employer] Other 08-16-2021 12:45-0400 SaO2% (BldA) [Mass fraction] 95 % Oumar Haynes Other [employer] Other 08-16-2021 12:45-0400 Systolic blood pressure 110 mm[Hg] Oumar Haynes Other [employer] Other Encounters Encounter Date Encounter Type Care Provider Facility Start: 01-09-2024 End: 01-09-2024 Dona Paez RN Work Phone: [facility] Comment on above: 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, with long-term current use of insulin (HCC) ([facility]/HCC) (Primary Dx); Gastroesophageal reflux disease without esophagitis; Acquired hypothyroidism ([facility]/HCC) Start: 01-03-2024 End: 01-03-2024 ambulatory CLAYTON MCFADDEN Not Available Start: 01-03-2024 End: 01-03-2024 Office outpatient visit 25 minutes Clayton Mcfadden MD Work Phone: [facility] Comment on above: Acute exacerbation o f chronic obstructive pulmonary disease (COPD) ([facility]/HCC) (Primary Dx); Interstitial lung disease ([facility]/HCC); Panlobular emphysema ([facility]); Polypharmacy Start: 12-17-2023 End: 12-17-2023 Office outpatient visit 15 minutes Clayton Mcfadden MD Work Phone: [facility] Comment on above: Acute right-sided lo w back pain without sciatica Start: 12-17-2023 End: 12-17-2023 ambulatory CLAYTON MCFADDEN Not Available Start: 11-12-2023 End: 11-12-2023 ambulatory CLAYTON MCFADDEN Not Available Start: 11-06-2023 End: 11-06-2023 Clinisync Result Encounter Clayton Mcfadden MD Work Phone: [facility] External [facility] Unsolicited Start: 11-06-2023 End: 11-06-2023 Clinisync Result Encounter Clayton Mcfadden MD Work Phone: [facility] External Department Unsolicited Start: 05-22-2023 End: 05-22-2023 ambulatory CLAYTON MCFADDEN Not Available Start: 03-28-2023 Refill Clayton diez MD Work Phone: [facility] Comment on above: 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, with long-term current use of insulin (HCC) ([facility]) Start: 01-31-2023 Office outpatient vi sit 15 minutes Horace Jasso [facility] Vascular Surgery Start: 01-31-2023 End: 01-31-2023 ambulatory 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 Facility:[facility] Start: 01-31-2023 End: 01-31-2023 ambulatory MD Clayton Mcfadden Work Phone: [facility] [employer] Other Start: 01-31-2023 End: 01-31-2023 Patient encounter procedure MD Clayton Mcfadden Work Phone: [facility] Start: 01-15-2023 End: 01-15-2023 ambulatory CLAYTON MCFADDEN Not Available Start: 12-01-2022 End: 12-01-2022 ambulatory CLAYTON MCFADDEN [facility] Start: 10-03-2022 End: 10-03-2022 ambulatory CLAYTON [facility] Start: 08-28-2022 End: 08-29-2022 ambulatory CLAYTON MCFADDEN [facility] Start: 08-09-2022 End: 08-10-2022 ambulatory CLAYTON MCFADDEN [facility] Start: 08-09-2022 End: 08-09-2022 Subsequent hospital visit by physician Clayton Mcfadden MD Work Phone: [facility] Comment on above: Dysuria; Frequency of micturition Start: 07-03-2022 End: 07-04-2022 ambulatory ZOILAJORDON MORRISSA . Facility:[facility] Start: 06-26-2022 End: 06-27-2022 ambulatory ZOILA JAVED . Facility:[facility] Start: 06-14-2022 End: 06-15-2022 [facility] Start: 04-24-2022 End: 05-18-2022 ambulatory THELMA BETTS Facility:[facility] Start: 04-19-2022 End: 04-19-[address] CLAYTON MCFADDEN . Facility:[facility] Start: 04-05-2022 End: 04-08-2022 Evaluation and management of inpatient GABRIELA BENNETT . Facility:[facility] Start: 04-05-2022 End: 04-06-[address] CLAYTON MCFADDEN . Facility:[facility] Start: 03-30-2022 End: 06-29-2022 ambulatory UNKNOWN PROVIDER Facility:[facility] Start: 03-28-2022 End: 03-29-2022 ambulatory Matilde SID Facility:[facility] Start: 03-27-2022 End: 03-27-2022 ambulatory [facility] Emergenc y Triage, Treat and Transport Start: 03-27-2022 End: 03-27-2022 Emergency department patient visit [facility] Emergency Triage, Treat and Transport Comment on above: Arrived Start: 03-02-2022 End: 03-03-[address] CLAYTON MCFADDEN . Facility:[facility] Start: 03-01-2022 End: 03-02-2022 ambulatory [facility] Start: 03-01-2022 End: 03-01-2022 Subsequent hospital visit by physician Clayton Mcfadden MD Work Phone: [facility] Comment on above: BPH with obstruction /lower urinary tract symptoms; Dysuria Start: 02-22-2022 ambulatory KONG Anaya ty:[facility] Start: 02-20-[address] CLAYTON MCFADDEN . Fac ility:[facility] Start: 02-06-2022 End: 02-07-[address] CLAYTON MCFADDEN . Facility:[facility] Start: 02-06-2022 End: 02-06-[address] CLAYTON MCFADDEN . Facility:[facility] Start: 02-01-2022 End: 02-02-[address] CLAYTON MCFADDEN . Facility:[facility] Start: 01-31-2022 End: 01-31-2022 ambulatory Yolette Sherin Other [employer] Other Start: 01-31-2022 Follow-up encounter Yolette Sherin [facility] Start: 01-30-2022 End: 01-30-2022 ambulatory MD Clayton Mcfadden Work Phone: [facility] Work Phone: Start: 01-30-2022 End: 01-30-2022 Patient encounter procedure MD Clayton Mcfadden Work Phone: [facility] [place] Start: 11-23-2021 End: 11-24-2021 ambulatory KONG PEPE Facility:[facility] Start: 11-23-2021 End: 11-23-2021 Patient encounter procedure KONG PEPE [facility] Start: 09-21-2021 End: 09-22-[address] CLAYTON MCFADDEN . Facility: Start: 08-19-[address] CLAYTON MCFADDEN . Fac ility:[facility] Start: 08-16-2021 End: 08-16-2021 ambulatory Oumar Haynes Other [employer] Other Start: 08-16-2021 Office outpatient ne w 45 minutes Oumar Haynes [facility] Vascular Surgery Start: 08-03-2021 End: 08-04-[address] CLAYTON MCFADDEN . Facility: Procedures Date Procedure Procedure Detail Performing Clinician Start: 12-17-2023 Urnls dip stick/tabl et rgnt non-auto w/o micrscp Clayton Mcfadden MD Work Phone: Start: 11-06-2023 MLR HEMOGLOBIN A1C Pawan Mcfadden MD Work Phone: Start: 01-31-2023 US scan of aorta MD Sang Mcfadden Work Phone: Start: 03-02-[address] CLAYTON MCFADDEN . Comment on above: Performed By: #### P OCGLUC #### [facility] [address] [address] [address] Kerrie Stark Start: 03-01-2022 Urnls dip stick/tabl et reagent auto microscopy Erica Veras MD Work Phone: Start: 01-30-2022 Computed tomography angiography of abdominal and/or pelvic blood vessel MD Clayton Mcfadden Work Phone: Start: 12-24-2017 Cystoscopy KONG Keith RASHEEDCarlos Start: [birth year]-19-1977 H/O: vasectomy KONG MY Plan of Treatment Date Care Activity Detail Author Start: 05-21-2025 Glaucoma screening Diabetes: R etinopathy Screening [facility] Start: 06-03-2024 End: 06-03-2024 Patient encounter procedure 06/03/2024 10:00 AM EDT Office Visit [facility] [address] [place] [address] Clayton Mcfadden MD [address] [address] (Fax) [facility] Start: 05-07-2024 Hemoglobin A1c measurement Diabetes: Hemoglobin A1C [facility] Start: 03-14-2024 Urine screening for protein Diabetes: Urine Protein Screening [facility] Start: 03-06-2024 Glaucoma screening Diabetes: R etinopathy Screening [facility] Start: 11-18-2023 Hemoglobin A1c measurement Diabetes: Hemoglobin A1C [facility] Start: 11-12-2023 End: 11-12-2023 Patient encounter procedure 11/12/2023 11:00 AM EDT Office Visit [facility] [address] [place] [address] Clayton Mcfadden MD [address] [place] [address] (Fax) [facility] Start: 10-21-2023 Influenza vaccination Influenza Vacc ine (#1) [facility] Start: 05-22-2023 End: 05-22-2023 Patient encounter procedure 05/22/2023 11:00 AM EDT Office Visit [facility] [address] [place] [facility] [place] [address] Clayton Mcfadden MD [address] [place] [address] [facility] Start: 01-23-2023 Hemoglobin A1c measurement Diabetes: Hemoglobin A1C [facility] Start: 09-20-2022 End: 09-20-2022 Patient encounter procedure 09/20/2022 Office Visit [facility] Start: 03-20-2022 End: 03-20-2022 Patient encounter procedure 03/20/2022 Procedure visit [facility] Start: 03-01-2022 Annual Wellness Visi t (AWV) Annual Wellness Visit (AWV) [facility] Start: 11-19-2021 Influenza vaccination Influenza Vacc ine (#1) [facility] Start: 09-19-2021 Influenza vaccination Flu vaccine (# 1) [facility] Start: 01-29-2021 COVID-19 Vaccine (4 - Booster for Pfizer series) COVID-19 Vaccine (4 - Booster for Pfizer series) [facility] Start: 02-18-2014 Shingles vaccine (2 of 3) Shingles vaccine (2 of 3) [facility] Start: 2005 Pneumococcal 65+ yea rs Vaccine (1 - PCV) Pneumococcal 65+ years Vaccine (1 - PCV) [facility] Start: 2005 Pneumococcal vaccination Pneumococcal Vaccine(s) (65+ yrs) (1 - PCV) [facility] Start: 1990 Shingles (RZV) Vacci ne (1 of 2) Shingles (RZV) Vaccine (1 of 2) [facility] Start: 1990 Shingles vaccine (1 of 2) Shingles vaccine (1 of 2) [facility] Start: 04-26-1959 DTaP/Tdap/Td vaccine (1 - Tdap) DTaP/Tdap/Td vaccine (1 - Tdap) [facility] Start: 1958 Tetanus + diphtheria + acellular pertussis vaccine (product) Tdap [facility]oster [facility] Start: 1952 Depression Screen Depression Screen [facility] Start: 1950 Lipid panel Lipids [facility] Start: 1940 COVID-19 Vaccine (#1) COVID-19 Vacci ne (#1) [facility] End: 03-01-2022 Culture, Urine [facility] Work Phone: Comment on above: 1 Occurrences starti ng 03/01/2022 until 03/01/2022 End: 08-09-2022 Culture, Urine [facility] Comment on above: 1 Occurrences starti ng 08/09/2022 until 08/09/2022 Immunizations Immunization Date Immunization Notes Care Provider [facility] 12-27-2023 influenza, seasonal, injectable Briseida Paez RN Work Phone: [facility] 12-04-2022 Influenza, Seasonal, Quadrivalent, Adjuvanted Clayton Mcfadden MD Work Phone: [facility] 12-04-2022 influenza virus vacc ine, unspecified formulation Clayton Mcfadden MD Work Phone: [facility] 12-08-2021 influenza, injectabl e, quadrivalent, preservative free Clayton Mcfadden MD Work Phone: [facility] 12-08-2021 Influenza, Seasonal, Quadrivalent, Adjuvanted Clayton Mcfadden MD Work Phone: [facility] 12-04-2020 influenza, high dose seasonal, preservative-free Clayton Mcfadden MD Work Phone: [facility] 12-04-2020 Influenza, High-dose Seasonal, Quadrivalent, Preservative Free Clayton Mcfadden MD Work Phone: [facility] 11-29-2019 influenza, injectabl e, quadrivalent, preservative free Clayton Mcfadden MD Work Phone: [facility] 10-15-2019 influenza, high dose seasonal, preservative-free Clayton Mcfadden MD Work Phone: [facility] 11-07-2018 influenza, injectabl e, quadrivalent, preservative free Clayton Mcfadden MD Work Phone: [facility] 11-07-2018 Seasonal trivalent influenza vaccine, adjuvanted, preservative free Clayton Mcfadden MD Work Phone: [facility] 11-23-2017 influenza, high dose seasonal, preservative-free Clayton Mcfadden MD Work Phone: [facility] 11-23-2017 influenza, injectabl e, quadrivalent, preservative free Clayton Mcfadden MD Work Phone: [facility] 01-31-2017 pneumococcal conjuga te vaccine, 13 valent Clayton Mcfadden MD Work Phone: [facility] 01-19-2017 pneumococcal conjuga te vaccine, 13 valent Clayton Mcfadden MD Work Phone: [facility] 01-17-2017 influenza, high dose seasonal, preservative-free Clayton Mcfadden MD Work Phone: [facility] 01-12-2016 pneumococcal polysaccharide vaccine, 23 valent Clayton Mcfadden MD Work Phone: [facility] 12-16-2015 influenza, high dose seasonal, preservative-free Clayton Mcfadden MD Work Phone: [facility] 01-08-2015 influenza, injectabl e, quadrivalent, preservative free Clayton Mcfadden MD Work Phone: [facility] 01-08-2015 influenza, seasonal, injectable, preservative free Clayton Mcfadden MD Work Phone: [facility] 12-24-2013 zoster vaccine, live Clayton Mcfadden MD Work Phone: [facility] 08-06-2013 pneumococcal polysaccharide vaccine, 23 valent Clayton Mcfadden MD Work Phone: [facility] 12-23-2012 influenza, seasonal, injectable, preservative free Clayton Mcfadden MD Work Phone: [facility] Healthcare Payers Date Payer Category Payer Unknown [id number] 2022 Unknown [id number] 2022 Private Health Insurance AARP [place] [id number] 2022 Unknown AARP AARP [id number] 2022-Present [address] [place] [address] [id number] .7.3.298509.315 2010 Medicare [id number]. 1.13.693.2 .[id number] 1959 Medicare [id number] 2.16.840.1.695490.19 1959 Self-pay [id number] 1959 Self-pay [id number] 1959 Unknown [id number] 2.16.840.1.698618.19 1940 Unknown [id number] 2.16.840.1.871030.3.579.2 .727 1940 Unknown [id number] 2.16.840.1.970386.3.579.2 .727 1940 Unknown [id number] 2.16.840.1.888058.3.579.2 .732 1940 Unknown [id number] 2.16.840.1.211054.3.579.2 .593 1940 Unknown [id number] 2.16.840.1.517734.3.579.2 .593 1940 Unknown [id number] 2.16.840.1.950384.3.579.2 .593 1940 Unknown [id number] 2.16.840.1.696553.3.579.2 .593 1940 Unknown [id number] 2.16.840.1.436631.3.579.2 .593 1940 Unknown [id number] 2.16.840.1.529568.3.579.2 .593 1940 Unknown [id number] 2.16.840.1.797747.3.579.2 .593 1940 Unknown [id number] 2.16.840.1.490980.3.579.2 .593 1940 Unknown [id number] 2.16.840.1.398028.3.579.2 .593 1940 Unknown [id number] 2.16.840.1.929830.3.579.2 .593 1940 Unknown [id number] 2.16.840.1.329121.3.579.2 .593 1940 Unknown [id number] 2.16.840.1.723004.3.579.2 .593 1940 Unknown [id number] 2.16.840.1.747908.3.579.2 .593 1940 Unknown [id number] 2.16.840.1.839710.3.579.2 .593 1 Unknown [id number] 2.16.840.1.424613.3.579.2 .593 1940 Unknown [id number] 2.16.840.1.912588.3.579.2 .173 1940 Unknown [id number] 2.16.840.1.282991.3.579.2 .173 1940 Unknown [id number] 2.16.840.1.555123.3.579.2 .173 1940 Unknown [id number] 2.16.840.1.738415.3.579.2 .173 1940 Unknown [id number] 2.16.840.1.520431.3.579.2 .173 1940 Unknown [id number] 2.16.840.1.090984.3.579.2 .173 1940 Unknown [id number] 2.16.840.1.573632.3.579.2 .1259 1940 Unknown [id number] 2.16.840.1.556733.3.579.2 .1259 1940 Unknown [id number] 2.16.840.1.115478.3.579.2 .1259 1940 Unknown [id number] 2.16.840.1.838265.3.579.2 .1259 1940 Unknown [id number] 2.16.840.1.763841.3.579.2 .1259 Unknown [id number] 2.16.840.1.874190.3.579.2 .531 Social History Date Type Detail Facility Start: 10-25-2022 End: 06-25-2023 Sex Assigned At [employer] Other Start: 05-12-2019 Tobacco smoking status Never smoked tobacco (finding) [facility] Start: 1940 Sex Assigned At Male [facility] Start: 03-01-2022 End: 05-22-2023 Tobacco smoking status NHIS Ex-smoker [facility] Phone: Start: 02-20-1964 End: 01-08-1995 History of tobacco use Current smoker [facility] Phone: Start: 02-20-1964 End: 01-08-1995 History of tobacco use Cigarette Smoker [facility] Phone: Start: 03-01-2022 End: 05-22-2023 Tobacco use and exposure Smokeless tobacco non-user [facility] Phone: Start: 03-01-2022 End: 05-23-2023 Alcohol intake Lifetime non-drinker (finding) [facility] Phone: Start: 1940 Sex Assigned At Not on file [facility] Phone: Tobacco smoking stat us [facility] Tobacco smoking consumption unknown [facility] Start: 10-25-2022 End: 06-25-2023 History of Social function [facility] Fear of Current or Ex-Partner Not on file [facility] Within the last year , have you been humiliated or emotionally abused in other ways by your partner or ex-partner? No [facility] Do you belong to any clubs or organizations such as amish groups, unions, fraternal or athletic groups, or [...] smoking: >30 years. Last smoked: >10 years [facility] Start: 08-12-2022 Alcohol Comment Caffeine intake: 1-2 cups per day [facility] Start: 12-17-2023 End: 01-03-2024 Alcoholic beverage intake Ex-drinker (finding) [facility] How often to you hav e a drink containing alcohol? Never [facility] Do you feel stress - tense, restless, nervous, or anxious, or unable to sleep at night because your mind is troubled all the time - these days [OSQ] Not at all [facility] (I/We) worried wheth er (my/our) food would run out before (I/we) got money to buy more. Never true [facility] Healthcare Medical Equipment Procedure Code Equipment Code Equipment Origin al Text Equipment Identifier Dates 1 each by Other route in the morning and 1 each at noon and 1 each in the evening and 1 each before bedtime. Use as instructed 4 times a day. Sliding scale to titrate blood sugars One touch Ultra Blue. [id number] Start: 03-23-2023 End: 06-21-2023 1 each by Other route in the morning and 1 each in the evening and 1 each before bedtime. Use as instructed. Sliding scale to titrate blood sugars One touch Ultra Blue DX: E11.22, N18.31, Z79.4. [id number] Start: 06-07-2023 End: 01-09-2024 1 each by Other route in the morning and 1 each in the evening and 1 each before bedtime. Use as instructed. Sliding scale to titrate blood sugars One touch Ultra Blue DX: E11.22, N18.31, Z79.4. [id number] Start: 01-09-2024 End: 07-07-2024 Functional Status Date Assessment Result Facility 11-23-2021 Functional Status N/A [facility] Clinical Notes 08-16-2021 to 01-03-2024 Clayton Mcfadden MD - 01/03/2024 11:45 AM Payal Mcfadden MD - 12/17/2023 3:00 PM EDT Note Date & Type Note Facility 01-03-2024 History of Presen t illness Narrative Images from the original note were not included. Patient ID: Chema Childs is a 83 y.o. male who presents for: Upper Respiratory Infection Patient complains of symptoms of a URI. Symptoms include congestion, nasal congestion, productive cough with white colored sputum, and wheezing. Onset of symptoms was 7 days ago, and has been gradually worsening since that time. Treatment to date: neb three times daily . They called Dr Javed because he normally puts him on antibiotics and steroids [place]. When pushed, it turns out he is really only using the nebulizer treatment about twice a day and maybe using inhaler in between. Review of Systems Constitutional: Negative for chills and fever. HENT: Positive for congestion. Negative for ear pain, sinus pressure, sinus pain and sore throat. Respiratory: Positive for cough and wheezing. Negative for shortness of breath. Neurological: Negative for light-headedness and headaches. Objective The patient is pleasant and in no acute distress The patient does not appear to have a gross neurologic deficit. The patient has good eye contact and clear speech The patient is not demonstrating increased work of breathing other than his normal prolongation of the expiratory phase. He is speaking full sentences. No evidence of cyanosis. Some cough noted during the visit. Visit Vitals Pulse 61 Temp 98.1 F (Temporal) Ht 5' 11 Wt 189 lb SpO2 92% BMI 26.36 kg/m Smoking Status Former BSA 2.07 m Allergies Allergen Reactions Erythromycin Nausea And Vomiting [...] 1 tablet by mouth in the morning. glucose blood test strip 1 each by Other route in the morning and 1 each in the evening and 1 each before bedtime. Use as instructed. Sliding scale to titrate blood sugars One touch Ultra Blue DX: E11.22, N18.31, Z79.4. 270 each 1 insulin aspart, with niacinamide, (Fiasp FlexTouch) 100 UNIT/ML injection Sliding scale 3 times daily with meals; 141-200=3u, 201-250=5u, 251-300=8u, >300=12u 15 mL 3 latanoprost (Xalatan) 0.005 % ophthalmic solution Administer 1 drop into both eyes at bedtime. levothyroxine (Synthroid, Levoxyl) 88 MCG tablet Take 1 tablet (88 mcg) by mouth in the morning. Take before meals. 90 tablet 1 losartan (Cozaar) 50 MG tablet Take 1 [...] 1 tablet by mouth in the morning. omeprazole (PriLOSEC) [address] capsule Take 1 capsule (40 mg) by mouth in the morning. Take before meals. 90 capsule 1 oxygen (O2) gas Inhale 3 L/min at bedtime via nasal canula polyethylene glycol, PEG, 3350 (Glycolax) 17 GM/SCOOP powder Take 17 g by mouth Daily sodium chloride 0.9 % nebulizer solution Take 3 mL by nebulization if needed timolol (Timoptic) 0.5 % ophthalmic solution Administer 1 drop into both eyes in the morning and 1 drop before bedtime. No current facility-administered medications on file prior to visit. 1. Acute exacerbation of chronic obstructive pulmonary disease (COPD) ([facility]) (Primary) Acute problem which is recurrent in nature. Historically he does get into significant pulmonary distress fairly easily. His is also ill. I have elected to treat empirically. I have also discussed the need to use his nebulizer treatment every 4 hours around the clock for the next 2 days. He can then slow down to 4 times per day. I stressed how important this was. If he is not improved on Sunday we can consider steroids. In prescribing a new medication consideration of the following encompasses moderate decision making: the current prescriptions and supplements, the current allergies and medication intolerances, the current medical conditions, and potential drug interactions. Risks, benefits, and reason for starting their medication were discussed. The patient was given a chance to ask questions today and all questions were answered. The patient is to contact us if any other questions arise or if any problems occur with the adjustment in their medication. - cefuroxime (Ceftin) 500 MG tablet; Take 1 tablet (500 mg) by mouth in the morning and 1 tablet (500 mg) before bedtime. Do all this for 10 days. Dispense: 20 tablet; Refill: 0 2. Interstitial lung disease ([facility]) Chronic problem, comorbid condition 3. Panlobular emphysema ([facility]) Chronic problem, comorbid condition 4. Polypharmacy Chronic problem The patient meets the criteria for polypharmacy; 5 or more prescriptions or multi-morbidity defined as 5 or more diagnoses. Polypharmacy can significantly increase the risk of preventable adverse drug events and negatively impact adherence. Consideration of diverse factors such as clinician agreement, patient perspective, and de-prescribing, as appropriate can improve patient outcomes while simplifying care. This requires longitudinal monitoring as there is at least a moderate risk of morbidity and requires at least a moderate degree of evaluation and management. documented in this encounter [facility] 12-17-2023 History of Presen t illness Narrative [...] Final Protein, UA 12/17/2023 Negative Negative - 1999(20) ++++ mg/dL Final Urobilinogen, UA 12/17/2023 0.2 [...] dipstick manually resulted documented in this encounter [facility] 01-31-2023 Evaluation note Encounter Date Diagnosis [...] were answered he understands agrees the plan. [employer] Other 02-16-2023 NoteEXAMINATION: XR CHEST 2 [...] Electronically authenticated by: ULISSES FRANCO Date: 2022-04-06 08:00[facility]02-09-2023 History of Present illness Narrative* Horace Parra DO - 03/30/2022 10:13 AM EST Images from the original note were not included. EMERGENCY TRIAGE, TREAT AND TRANSPORT (ET3) DOCUMENTATION OF TELEHEALTH VISIT Date / Time: 03/27/2022 / 2339 Name: Chema Childs : 1940 SSN: (Not on file) EMS Agency: [facility] [x] Verbal consent obtained [] Implied [...] by: Horace Parra DO documented in this [id number] Evaluation note* Encounter Date Diagnosis Assessment Notes [...] with this plan, and denies any questions. [employer] Other 10-05-2022 Hospital Discharge instructions Patient [...] prostate. Follow these instructions at home: Take qfnn-mmx-ckkznej and prescription medicines only as told by [...] 02/02/2001 Document Revised: 04/20/2018 Document Reviewed: 10/26/2016 [employer] Patient Education [employer]. Follow Up Care 11/01/2021 10:45:28 With:KONG PEPE PA-C, URL Address: [address] [place] [address] When:3 months [facility] 06-28-2022 Evaluation note* Encounter Date Diagnosis Assessment Notes Treatment Notes Treatment Clinical Notes Jul, Abdominal aortic aneurysm (AAA) 3.0 cm to 5.5 cm in diameter in male (ICD-10 - I71.4) Jul, Other Aortic ulcer wi th small aneurysm Review of the images today bbuuhvm-mkvt-rok ulcer of the infrarenal aorta that does [...] understand and all the questions were answered. [employer] Other Evaluation + Plan note Future Appointments Appointment Date:02/22/2022 01:20:00 PM Scheduled Provider:KONG PEPE PA-C Location:[facility] Appointment Type:URO Office Visit [facility] evalomlgyc noteNo assessment information available [facility] Work Phone: Evaluation note* Diagnosis BPH with obstruction/lower urinary tract symptoms Hypertrophy of prostate with urinary obstruction and other lower urinary tract symptoms (LUTS) Dysuria documented in this encounter [facility] Work Phone: Evaluation note* Diagnosis Fall, initial encounter- Primary Shortness of breath Tachycardia Tachycardia, unspecified [facility] Diagnosis Dysuria Frequency of micturition Urinary frequency documented in this encounter [facility]* Diagnosis Type 2 diabetes mellitus with stage 3a chronic kidney disease, with long-term current use of insulin (HCC) ([facility]) documented in this encounter [facility] HealthcareEvaluation note* Diagnosis Acute right-sided low back pain without sciatica documented in this encounter [facility] HealthcareEvaluation note* Diagnosis Type 2 diabetes mellitus with stage 3a chronic kidney disease, with long-term current use of insulin (HCC) ([facility])- Primary Gastroesophageal reflux disease without esophagitis Esophageal reflux Acquired hypothyroidism ([facility]) Unspecified hypothyroidism documented in this encounter [facility] HealthcareEvaluation note* Diagnosis Acute exacerbation of chronic obstructive pulmonary disease (COPD) ([facility])- Primary Obstructive chronic bronchitis with exacerbation Interstitial lung disease ([facility]) Postinflammatory pulmonary fibrosis Panlobular emphysema ([facility]) Other emphysema Polypharmacy Issue of repeat prescriptions documented in this encounter [facility] HealthcareHistory general Narrative - Reported* Type Description Date Medical History high cholestrol Medical History high blood pressure Medical History acid reflux Surgical History hemorrhoidectomy Hospitalization History acid reflux - observatio n [employer] Other History general Narrative - Reported* Type Description Date Medical History high cholestrol Medical History high blood pressure Medical History acid reflux Surgical History hemorrhoidectomy Surgical History Laser Surgery on prostate Hospitalization History acid reflux - observatio n [employer] Other Hospital course Narrative No data available for this section [facility]on progress note No data available for this section [facility] Purpose Family History No Family History [...] section and content) DATE CREATED AUTHOR 08/12/2021 [facility] dical Specialist DATE CREATED AUTHOR AUTHOR'S ORGANIZ ATION 03/15/2022 [facility] DATE CREATED AUTHOR AUTHOR'S ORGANIZ ATION 07/01/2022 [facility] DATE CREATED AUTHOR AUTHOR'S ORGANIZ ATION 07/04/2022 [facility] DATE CREATED AUTHOR AUTHOR'S ORGANIZ ATION 12/02/2022 [facility] DATE CREATED AUTHOR AUTHOR'S ORGANIZ ATION 02/24/2023 [facility] DATE CREATED AUTHOR AUTHOR'S ORGANIZ ATION 01/05/2024 [facility] dical Specialists EPIC REASON FOR VISIT (unrecogniz ed section and content) Reason Comments Fall Reason Comments Med Change Request Reason Comments Hip Pain Reason Comments URI Patient Care team informatio n (unrecognized section and content) Team Status: Active Member Role Status Dates Clayton Mcfadden MD Primary Care Provider Active Team Status: Inactive Member Role Status Dates Clayton Mcfadden MD Primary Care Provider Active 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 NP-C Attending Provider Active Team Status: Inactive Member Role Status Dates Clayton Mcfadden MD Primary Care Provider Active Oumar Haynes MD Attending Provider Active 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 [employer] Start Date End Date Clayton Mcfadden MD [address] [place] [address] PCP - General 03/01/22 Supervisor [employer] Start Date End Date Clayton Mcfadden MD [address] [place] [address] PCP - General 03/01/22 Supervisor [employer] Relationship Specialty Start Date End Date Clayton Mcfadden MD [address] [facility] [place] [address] PCP - ACO Reach 07/13/22 Clayton Mcfadden MD [address] [place] [id number] PCP - General Family Medicine 08/03/22 Briseida Paez, RN Registered Nurse Family Medicine 03/16/23 Supervisor [employer] Specialty Start Date End Date Clayton Mcfadden MD [address] [place] [address] (Fax) PCP - ACO Reach 07/13/22 Clayton Mcfadden MD [address] [place] [address] (Fax) PCP - General Family Medicine 08/03/22 Briseida Paez, RN Registered Nurse Family Medicine 03/16/23 Supervisor [employer] Specialty Start Date End Date Clayton Mcfadden MD [address] [place] [phone] (Fax) PCP - ACO Reach 07/13/22 Clayton Mcfadden MD [address] [place] [address] (Fax) PCP - General Family Medicine 08/03/22 Briseida Paez, RN Registered Nurse Family Medicine 03/16/23 Supervisor [employer] Specialty Start Date End Date Clayton Mcfadden MD [address] [place] [address] (Fax) PCP - ACO Reach 07/13/22 Clayton Mcfadden MD [address] [place] [address] (Fax) PCP - General Family Medicine 08/03/22 Briseida Paez, RN Registered Nurse Family Medicine 03/16/23 [employer]visor [employer] Start Date End Date Clayton Mcfadden MD [address] [facility] [place] [address] PCP - ACO Reach 07/13/22 Clayton Mcfadden MD [address] [place] [address] PCP - General Family Medicine 08/03/22 Briseida Paez RN Registered Nurse Family Medicine 03/16/23 Goals [...] BE BASED ON THE PRIMARY CLINICAL RECORDS. [employer] [facility]. provides no warranty or guarantee of the accuracy or completeness of information in this document.
== END 2024-02-04 19:50 | disposition home or self-care (01) ==
LOC: SLEEP 19:49
PROVIDERS: PCP Internal Medicine; Visit Provider Internal Medicine
DX: G47.33 Obstructive sleep apnea (adult) (pediatric) (principal)
CPT/HCPCS: 95811

== ENCOUNTER 2024-03-24 13:24 | Outpatient (OUT) | payer MEDICARE, SELFPAY ==
--- NOTE | 2024-03-24 13:34 | XR_ITS ---
The [address] [address] Patient Name: CHEMA ALTMAN MRN: [id number] date: 1940 Sex: M Assigned Patient Location: [facility] Current Patient Location: RAD Accession/Order Number: [id number] Exam Date: 03/24/2024 13:35 Report Date: 03/24/2024 14:08 At the request of: ZOILA JAVED Procedure: XR chest 2V EXAM: XR chest 2V HISTORY: Chronic Obstructive Pulmonary Disease COMPARISON: 10/16/2023 TECHNIQUE: Upright PA and lateral chest x-ray FINDINGS: A small amount of atelectasis or scarring is seen at the lung bases and slight prominence of the interstitial markings are seen throughout the lungs. There is flattening of the hemidiaphragms indicating COPD. No acute infiltrate, effusion or pneumothorax is identified. The heart is not enlarged and the vasculature is not distended. Degenerative changes are seen in the spine and at the shoulders. XR/XR chest 2V IMPRESSION: No apparent acute infiltrate or evidence of cardiac decompensation. Some chronic changes are noted. The overall appearance of the chest has not changed significantly. Electronically authenticated by: GEORGIA SMITH Date: 03/24/2024 14:08
[2024-03-24 14:50] LABS: Internal Control Within Normal Limits; SARS-CoV-2 Ag POSITIVE (NEGATIVE)
[2024-03-24 14:51] LABS: Influenza Virus A Antigen Negative; Influenza Virus B Antigen Negative; Internal Control Within Normal Limits; Respiratory Syncytial Virus Not Detected (NOT DETECTE)
== END 2024-03-24 13:25 | disposition home or self-care (01) ==
LOC: RAD 13:26
PROVIDERS: PCP Family Medicine; Visit Provider Internal Medicine
DX: J44.1 Chronic obstructive pulmonary disease with (acute) exacerbation (principal)
CPT/HCPCS: 71046; 87420; 87804; 87811

== ENCOUNTER 2024-03-24 14:48 | Outpatient (OUT) | payer MEDICARE, SELFPAY ==
--- OUTSIDE RECORDS SUMMARY | 2024-03-24 15:03 | XMS_ITS | CCD ---
Author Organization [facility] Care Team Providers Care Executive [employer] Host Name Role Phone Oumar Haynes Unavailable CLAYTON MCFADDEN Primary Care Physician MD Clayton Mcfadden Primary Care Provider [phone] MD Oumar Haynes Attending Provider Clayton Mcfadden MD Primary Care Provider KONG PEEP Attending Unavailable KONG PEPE Attending Unavailable Unavailable [...] SOSA ., DR THELMA Brown Admitting Unavailable PICABO, DR ULISSES Ivey Consulting Unavailable SHAIKH Matilde [...] RN Unavailable Unavailable Clayton Mcfadden MD Unavailable [phone] Clayton Mcfadden MD Primary Care Provider Briseida Paez RN Unavailable CLAYTON MCFADDEN Attending Unavailable CLAYTON MCFADDEN Attending Unavailable CLAYTON MCFADDEN Attending Unavailable CLAYTON MCFADDEN Attending Unavailable CLAYTON MCFADDEN Attending Unavailable Allergies Allergy Classification Reported Allergen(s) Allergy Type Date of Onset Reaction(s) Facility (13 sources) Sulfamethoxazole / Trimethoprim; Translations: [sulfamethoxazole-tr imethoprim] Drug Allergy 3 Weal (disorder), Rash [facility] (2 sources) Tetracycline; Translations: [tetracycline] Drug Allergy Finding reported by subject or history provider (finding) [facility] (12 sources) Erythromycin Drug Allergy 8 Nausea And Vomiting [facility] (12 sources) levoFLOXacin Drug Allergy 3 Diarrhea [facility] Work Phone: (1 source) Sulfamethoxazole / Trimethoprim Drug Allergy [facility] (10 sources) metFORMIN Drug Allergy 3 [facility] (10 sources) Erythromycin Base Drug Allergy [address] [facility] Healthcare Medications Current Medications Medication Drug Class(es) Dates Sig (Normalized) Sig (Original) [id number] 200 actuat albuterol 0.09 mg/actuat metered dose inhaler (20 sources) beta2-Adrenergic Agonist Start: 09-25-2022 take 2 [...] day Active allopurinol 100 mg oral tablet (18 sources) Xanthine Oxidase Inhibitor Start: End: take [...] Start Date: 05/12/19 Status: Ordered Ascorbic Acid (6 sources) Vitamin C Start: 11-23-2021 Vitamin C Amaya y, Refills(s) 0 Start Date: 11/23/21 Status: Ordered End: 11-12-2023 take 1 tablet by mouth in the morning ascorbic acid (Vitamin C) 500 MG tablet Take 500 mg by mouth in the morning. 11/12/2023 Discontinued (Therapy completed) aspirin 81 mg oral tablet (15 sources) Platelet Aggregation Inhibitor, Nonsteroidal Anti-inflammatory Drug Start: 05-12-2019 take 1 mg by mouth once daily aspirin 81 mg oral tablet mg tab(s), Oral, Daily, Refills(s) 0 Start Date: 05/12/19 Status: Ordered take 1 tablet by mouth in the mo rning aspirin 81 MG EC tablet Take 81 mg by mouth in the morning. Active atorvastatin 20 mg oral tablet (17 sources) HMG-CoA Reductase Inhibitor Start: 05-22-2023 End: [...] 0 Active Bioflavonoid Products (REAL C PO) (11 sources) take 500 mg by mouth once daily Bioflavonoid Products (REAL C PO) Take 500 mg by mouth Daily Active Bioflavonoid Pro ducts (REAL C PO) Take by mouth 0 Active brimonidine tartrate 2 mg/ml ophthalmic solution (12 sources) alpha-Adrenergic Agonist take 1 drop(s) into [...] / glycopyrrolate 0.009 mg/actuat metered dose inhaler (9 sources) Corticosteroid, beta2-Adrenergic Agonist Start: 08-01-2023 take [...] exacerbation of chronic obstructive pulmonary disease (COPD) ([facility]) Take 1 tablet (500 mg) by [...] insulin aspart, human 100 unt/ml pen injector (13 sources) Insulin Analog Start: 11-12-2023 insulin aspart , with niacinamide, (Fiasp FlexTouch) 100 UNIT/ML injection Indications: Type 2 diabetes mellitus with stage 3a chronic kidney disease, with long-term current use of insulin (HCC) ([facility]) Sliding scale 3 times daily with meals; 141-200=3u, 201-250=5u, 251-300=8u, >300=12u 15 mL 3 11/12/2023 Active Start: 11-12-2023 insulin aspart (NovoLOG) 100 UNIT/ML injection Indications: Type 2 diabetes mellitus with stage 3a chronic kidney disease, with long-term current use of insulin (HCC) ([facility]) Sliding scale 3 times daily with meals; 141-200=3u, 201-250=5u, 251-300=8u, >300=12u 15 mL 11/12/2023 Active Start: 11-12-2023 insulin aspart (NovoLOG) 100 UNIT/ML injection Indications: Type 2 diabetes mellitus with stage 3a chronic kidney disease, with long-term current use of insulin (HCC) (CMS/HCC) Sliding scale 3 times daily with meals; 141-200=3u, 201-250=5u, 251-300=8u, >300=12u 15 mL 11/12/2023 Active Start: 01-15-2023 End: 11-12-2023 insulin aspart (NovoLOG) 100 UNIT/ML injection Indications: Type 2 diabetes mellitus with stage 3a chronic kidney disease, with long-term current use of insulin (HCC) (CMS/HCC) Sliding scale 3 times daily with meals; 141-200=3u, 201-250=5u, 251-300=8u, >300=12u 15 mL 01/15/2023 11/12/2023 Discontinued (Reorder) Start: 08-08-2022 NOVOLOG FLEXPE N 100 UNIT/ML [...] 12/08/2007 Active latanoprost 0.05 mg/ml ophthalmic solution (10 sources) Prostaglandin Analog take 1 drop(s) into [...] Ordered levothyroxine sodium 0.088 mg oral tablet (14 sources) l-Thyroxine Start: 01-15-2023 End: 07-07-2024 take 1 tablet by mouth before mealtime levothyroxine (Synthroid, Levoxyl) 88 MCG tablet Indications: Acquired hypothyroidism (CMS/HCC) Take 1 tablet (88 mcg) by mouth in the morning. Take before meals. 90 tablet 1 05/22/2023 11/18/2023 Active Start: 11-23-2021 take 1 capsule by mo [facility] once daily levothyroxine 88 mcg (0.088 mg) oral capsule 88 mcg = 1 cap(s), Oral, Daily, # 30 cap(s), Refills(s) 0 Start Date: 11/23/21 Status: Ordered take 1 tablet by [facility] once daily levothyroxine (SYNTHROID) 88 MCG tablet Take 1 tablet by mouth Daily 0 Active losartan potassium 50 mg oral tablet (19 sources) Angiotensin 2 Receptor [place] Start: 05-22-2023 [...] 0 Start Date: 05/12/19 Status: Ordered Lysine (11 sources) Start: 05-12-2019 take 1 mg by mouth o nce daily lysine mg, Oral, Daily, Refills(s) 0 Start Date: 05/12/19 Status: Ordered End: 11-12-2023 take 1 tablet by mouth in the morning L-lysine 1000 MG tablet Take 1,000 mg by mouth in the morning. 11/12/2023 Discontinued (Therapy completed) magnesium oxide 400 mg oral tablet (10 sources) Start: 05-24-2023 End: 05-23-2024 take 1 [...] hydrochloride 750 mg extended release oral tablet (18 sources) Biguanide Start: 05-22-2023 End: 05-10-2024 take [...] Active Multiple Vitamins-Minerals (Multi For Him) tablet (10 sources) take 1 tablet by yuan th in the morning Multiple Vitamins-Minerals (Multi For Him) tablet Take 1 tablet by mouth in the morning. Active take 1 tablet by mouth in the mo rning Multiple Vitamins-Minerals (Multi For Him) tablet Take 1 tablet by mouth in the morning. 0 Active omeprazole 40 mg delayed release oral capsule (17 sources) Proton Pump Inhibitor Start: 01-15-2023 End: 07-07-2024 take 1 capsule by mouth before mealtime omeprazole (PriLOSEC) [address] capsule Indications: Gastroesophageal reflux disease without esophagitis Take 1 capsule (40 mg) by mouth in the morning. Take before meals. 90 capsule 1 05/22/2023 11/18/2023 Active Start: 05-12-2019 omeprazole Ora l, Daily, Refills(s) 0 Start Date: 05/12/19 Status: Ordered take 1 capsule by [facility] every twenty-four hours Omeprazole 20 MG 1 capsule Orally Once a day for 30 day(s) Active take 40 mg by mouth once daily O MEPRAZOLE PO Take 40 mg by mouth daily 0 Active Oxygen (10 sources) oxygen (O2) gas Inhale 3 L/min at bedtime via nasal canula Active oxygen (O2) gas Inhale 2 L/min at bedtime via nasal canula Active oxygen (O2) gas Inhale 2 L/min at bedtime via nasal canula 0 Active polyethylene glycol 3350 06365 mg powder for oral solution (9 sources) Osmotic Laxative polyethylene gl ycol, PEG, 3350 (Glycolax) 17 GM/SCOOP powder Indications: Constipation Take 17 g by mouth Daily Active polymyxin b 32257 unt/ml / trimethoprim 1 mg/ml ophthalmic solution (2 sources) Dihydrofolate Reductase Inhibitor Antibacterial, Polymyxin-class Antibacterial Start: 12-08-19 08 take 1 drop(s) into the eye(s) every four hours trimethoprim-polymyx in b (POLYTRIM) 63391-2.1 UNIT/ML-% ophthalmic solution Apply 1 drop to eye every 4 hours 0 12/08/2007 Active Probiotic Product (PROBIOTIC-10 PO) (1 source) Probiotic Produc t (PROBIOTIC-10 PO) Take by mouth 0 Active Ramipril (2 sources) Angiotensin Converting Enzyme Inhibitor Ramipril (ALTACE PO) Take by mouth 0 Active sodium chloride 9 mg/ml inhalation solution (10 sources) Start: 02-27-19 sodium chloride 0.9 % [...] 12 hr timolol 5 mg/ml ophthalmic solution (12 sources) beta-Adrenergic [place] take 1 drop(s) into the eye(s) in the morning timolol (Timoptic) 0.5 % ophthalmic solution Administer 1 drop into both eyes in the morning and 1 drop before bedtime. Active take 1-2 drop(s) int o the eye(s) twice daily timolol (BETIMOL) 0.25 % ophthalmic solution 1-2 drops 2 times daily 0 Active vitamin b12 1 mg oral tablet (11 sources) Vitamin B12 cyanocobalamin ( Vitamin B-12) 1000 MCG tablet Take 2,500 mcg by mouth Daily Active Cyanocobalamin ( VITAMIN B 12) 100 MCG LOZG Take by mouth 0 Active Completed/Discontinued Medications Medication Drug Class(es) Dates Sig (Normalized) Sig (Original) FIBER COMPLETE PO (10 sources) take 1 tablet by yuan th [...] Episodic/Chronic Aortic; peripheral; and visceral artery aneurysms (18 sources) Abdominal aortic aneurysm 3.0 to 5.5 centimeters in male; Translations: [Abdominal aortic aneurysm, without rupture] Onset: 08-16-2021 Resolved: 08-16-2021 Chronic Cardiac dysrhythmias (1 source) Tachycardia; Translations: [Tachycardia, unspecified] Episodic Chronic kidney disease (12 sources) Chronic kidney disease stage 3A ; [...] Chronic Coronary atherosclerosis and other heart disease (11 sources) Atherosclerotic heart disease of [place] coronary artery without angina pectoris; Translations: [Coronary atherosclerosis] Onset: 05-03-2022 08-03-2022 Chronic Diabetes mellitus with complications (19 sources) Type 2 diabetes mellitus with diabetic chronic kidney disease; Translations: [Insulin treated type 2 diabetes mellitus] Onset: 02-06-2022 Chronic Diabetes mellitus without complication (1 source) Type 2 diabetes mellitus without complications; Translations: [TYPE 2 DM WITHOUT COMPLICATIONS] Onset: 05-03-2022 Chronic Disorders of lipid metabolism (18 sources) Hyperlipidemia, unspecified; Translations: [Pure hypercholesterolemia, unspecified] Onset: 02-01-2022 Chronic E Codes: Adverse effects of medical drugs (1 source) Adverse effect of insulin and oral hypoglycemic [antidiabetic] drugs, initial encounter; Translations: [ADVERS EFF INSULIN ORAL HG RX INIT] Onset: 05-03-2022 Episodic E Codes: Fall (1 source) Fall; Translations: [Unspecified fall, initial encounter] Episodic Esophageal disorders (12 sources) Gastroesophageal reflux disease; Translations: [Gastroesophageal reflux disease without esophagitis] Onset: 08-03-2022 05-12-2019 Chronic Essential hypertension (14 sources) Hypertensive disorder; Translations: [Essential (primary) hypertension] Onset: 05-03-2022 05-12-2019 Chronic Genitourinary symptoms and ill-defined conditions (2 sources) Urge incontinence; Translations: [Urge incontinence] Onset: 12-01-2022 Chronic Glaucoma (20 sources) Glaucoma; Translations: [Bilateral primary open angle glaucoma] Onset: 08-06-2018 Resolved: 09-25-2022 05-12-2019 Chronic Gout and other crystal arthropathies (12 sources) Gout; Translations: [Chronic gout, unspecified, without tophus (tophi)] Onset: 04-23-2022 05-12-2019 Chronic Hepatitis (10 sources) Nonalcoholic steatohepatitis; Translations: [Nonalcoholic steatohepatitis (KAHN)] Onset: 08-03-2022 08-03-2022 Chronic Hyperplasia of prostate (20 sources) Benign prostatic hypertrophy with outflow obstruction; Translations: [Benign prostatic hyperplasia with lower urinary tract symptoms] Onset: 12-23-2015 Chronic Hypertension with complications and secondary hypertension (17 sources) Hypertensive chronic kidney disease with stage 1 through stage 4 chronic kidney disease, or unspecified chronic kidney disease; Translations: [Hypertensive renal disease] Onset: 02-05-2022 Chronic Inflammatory conditions of male genital organs (1 source) Prostatitis; Translations: [Inflammatory disease of prostate, unspecified] Onset: 11-23-2021 Episodic Malaise and fatigue (14 sources) Chronic fatigue, unspecified; Translations: [Fatigue] Onset: 09-21-2021 Chronic Menopausal disorders (1 source) Hormone replacement therapy; Translations: [HORMONE REPLACEMENT THERAPY] Onset: 05-03-2022 Episodic Occlusion or stenosis of precerebral arteries (20 sources) Atherosclerosis of left carotid artery; Translations: [Occlusion and stenosis of left carotid artery] Onset: 12-23-2015 Resolved: 09-25-2022 08-03-2022 Chronic Osteoarthritis (20 sources) Arthritis of left hip; Translations: [Unilateral primary osteoarthritis, left hip] Onset: 08-03-2022 08-03-2022 Chronic Other aftercare (1 source) terminal operations manager (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 of aspirin; Translations: [[facility] CURRENT USE OF ASPIRIN] Onset: 05-03-2022 Episodic Other aftercare (1 source) Other extermination inspector (current) drug therapy; Translations: [OTH [facility] CURRENT DRUG THERAPY] Onset: 05-03-2022 Episodic Other aftercare (1 source) terminal operations manager (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 of oral hypoglycemic drugs; Translations: [ADMINISTRATIVE ANALYST USE ORAL HYPOGLYCEMIC DX] Onset: 05-03-2022 Episodic Other aftercare (14 sources) Polypharmacy ; Translations: [Other extermination inspector (current) drug therapy] Onset: 08-10-2019 09-25-2022 Episodic Other connective tissue disease (5 sources) Muscle weakness (generalized); Translations: [MUSCLE WEAKNESS GENERALIZED] Onset: 04-24-2022 Episodic Other diseases of bladder and urethra (10 sources) Overactive bladder; Translations: [Overactive bladder] Onset: 10-19-2022 10-25-2022 Chronic Other diseases of kidney and ureters (3 sources) Other obstructive and reflux uropathy; Translations: [Other obstructive and reflux uropathy] Onset: 03-01-2022 Episodic Other eye disorders (10 sources) Bilateral vitreous degeneration of eyes; Translations: [Vitreous degeneration, bilateral] Onset: 06-09-2015 08-03-2022 Chronic Other lower respiratory disease (12 sources) Interstitial lung disease; Translations: [Interstitial pulmonary disease, unspecified] Onset: 08-03-2022 08-03-2022 Chronic Other lower respiratory disease (4 sources) Other nonspecific abnormal finding of lung field; Translations: [OTH NONSPECIFIC ABN FIND LNG FIELD] Onset: 06-26-2022 Episodic Other male genital disorders (1 source) Impotence 05-12-2019 Chronic Other male genital disorders (10 sources) Erectile dysfunction co-occurrent and due to arterial insufficiency; Translations: [Erectile dysfunction due to arterial insufficiency] Onset: 08-03-2022 08-03-2022 Chronic Other nervous system disorders (1 source) Difficulty in walking, not elsewhere classified; Translations: [DIFFICULTY IN WALKING NEC] Onset: 04-24-2022 Chronic Other nutritional; endocrine; and metabolic disorders (10 sources) Hypomagnesemia; Translations: [Hypomagnesemia] Onset: 03-07-2023 03-07-2023 Chronic Other upper respiratory infections (3 sources) Acute upper respiratory infection; Translations: [Acute upper respiratory infection] Episodic Peripheral and visceral atherosclerosis (2 sources) Atherosclerosis of aorta; Translations: [Atherosclerosis of aorta] 11-12-2023 Chronic Pneumonia (except that caused by tuberculosis or [...] 12-01-2022 Episodic Respiratory failure; insufficiency; arrest (adult) (14 sources) Acute and chronic respiratory failure with hypoxia; Translations: [Dependence on supplemental oxygen] Onset: 04-23-2022 08-03-2022 Chronic Respiratory failure; insufficiency; arrest (adult) (1 source) Acute respiratory failure with hypoxia; Translations: [ACUTE RESPIRATORY FAIL W/HYPOXIA] Onset: 05-03-2022 Episodic Retinal detachments; defects; vascular occlusion; and retinopathy (10 sources) Retinal disorder; Translations: [Unspecified retinal disorder] Onset: 08-03-2022 08-03-2022 Chronic Septicemia (except in labor) (4 sources) Sepsis, unspecified organism; Translations: [SEPSIS UNSPECIFIED ORGANISM] Onset: 04-19-2022 Episodic Spondylosis; intervertebral disc disorders; other back problems (2 sources) Acute low back pain; Translations: [Acute right-sided low back pain without sciatica] 12-17-2023 Episodic Thyroid disorders (12 sources) Hypothyroidism, unspecified; Translations: [Acquired hypothyroidism] Onset: [...] Date Documented Date Episodic/Chronic Biliary tract disease (10 sources) Biliary calculus; Translations: [Calculus of gallbladder without cholecystitis without obstruction] Onset: 08-03-2022 08-03-2022 Episodic Genitourinary symptoms and ill-defined conditions (17 sources) Dysuria; Translations: [Dysuria] Onset: 03-01-2022 Episodic Heart valve disorders (10 sources) Systolic murmur; Translations: [Cardiac murmur, unspecified] Onset: 08-03-2022 08-03-2022 Episodic Inflammation; infection of eye (except that caused by tuberculosis or sexually transmitteddisease) (10 sources) Blepharitis; Translations: [Squamous blepharitis unspecified eye, unspecified eyelid] Onset: 08-03-2022 08-03-2022 Episodic Nutritional deficiencies (10 sources) Moderate protein energy malnutrition; Translations: [Moderate protein-calorie malnutrition] Onset: 08-03-2022 Resolved: 09-25-2022 09-25-2022 Chronic Other aftercare (9 sources) Long-term current use of inhaled steroid; Translations: [MCC (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 of inhaled steroids] Onset: 09-12-2023 09-12-2023 Episodic Other connective tissue disease (10 sources) Muscle weakness; Translations: [Muscle weakness (generalized)] Onset: 04-08-2022 Resolved: 09-25-2022 09-25-2022 Episodic Other diseases of veins and lymphatics (10 sources) Vascular insufficiency; Translations: [Venous insufficiency (chronic) [...] Episodic Other nutritional; endocrine; and metabolic disorders (12 sources) Hyperuricemia; Translations: [Hyperuricemia without signs of inflammatory arthritis and tophaceous disease] Onset: 08-03-2022 08-03-2022 Episodic Other nutritional; endocrine; and metabolic disorders (12 sources) Overweight; Translations: [Overweight] Onset: 08-03-2022 08-03-2022 Episodic Other screening for suspected conditions (not mental disorders or infectious disease) (4 sources) Encounter for screening for malignant neoplasm of prostate; Translations: [ENC SCREEN MALIG NEOPLASM PROSTATE] Onset: 03-02-2022 Episodic Other upper respiratory disease (10 sources) Bowing of vocal cord; Translations: [Other diseases of vocal cords] Onset: 08-19-2015 09-25-2022 Episodic Pleurisy; pneumothorax; pulmonary collapse (10 sources) Discoid atelectasis; Translations: [Atelectasis] Onset: 08-03-2022 08-03-2022 Episodic Screening and history of mental health and substance abuse codes (13 sources) Personal history of nicotine dependence; Translations: [Ex-smoker] Onset: 03-12-2015 09-25-2022 Episodic Unclassified (1 source) Abdominal aortic aneurysm (AAA) without rupture, unspecified part I71.40 Unclassified (9 sources) Onset: 06-25-2023 06-25-2023 Varicose veins of lower extremity (10 sources) Varicose veins of bilateral lower limbs; Translations: [Asymptomatic varicose veins of bilateral lower extremities] Onset: 08-03-2022 08-03-2022 Episodic Results Test Name Value Interpretation Reference Range Facility Urinalysis macro (dipstick) panel (U)on 12-17-2023 Bilirubin, UA Negative Negative - 4(70) +++ mg/dL [facility] Blood, UA Negative Negative - 50 Silver/mcL [facility] Clarity, UA Clear [facility] Color, UA Light Yellow [facility] Glucose, UA Negative Negative - 2000(110) ++++ mg/dL [facility] Interpretation and review of laboratory results Normal [facility] Ketones, UA Negative Negative - 160(16) ++++ mg/dL [facility] Leukocytes, UA Negative Negative - 500+++ Ava/mcL [facility] Nitrite, UA Negative Negative - Positive [facility] pH, UA 6 5 - 9 [facility] Protein, UA Negative Negative - 2000(20) ++++ mg/dL [facility] Spec Grav, UA 1.005 1 - 1.03 [facility] Urobilinogen, UA 0.2 0.2 - 12 mg/dL [facility] MLR HEMOGLOBIN A1Con 024 Glucose [Mass/Vol] 117 mg/dL [facility] HbA1c (Bld) [Mass fraction] 5.7 % 4.5 - 6.2 % [facility] Comment on above: ADA RECOMMENDED LIMI T 4.0 - 6.0 ADA THERAPEUTIC TARGET < 7.0 ACTION SUGGESTED > 7.0 [facility] US aortaon 01-31-2023 US aorta [facility] [place] [address] Ultrasound Report Signed Patient: Chema Childs SR MR#: [id number] : 1940 Acct:[id number] Age/Sex: 82 / M ADM Date: 01/31/23 Loc: [facility] Room: Type: [facility] Attending Dr: 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 SUPERINTENDENT LAUNDRY-C Ordering Provider: 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 APRN Date of [...] Horace Jasso MD01/31/2023 11:09 AM Dictation Location: [place] [address] Tech: Gabriela Hoyt Transcribed By: GOYO 01/31/231108 Dictated By: Horace Jasso MD 01/31/236 Signed By: 01/31/231108 [facility] Cult,Urineon 12-02-2022 Cult,Urine Specimen Description .CLEAN CATCH URINE Culture NO GROWTH Report Status FINAL 12/02/2022 [facility] Comment on above: Performed By: #### U #### [facility] [address] [place] [address] Oil Scout: Sandip Smith MD [facility] [address] [place] [address] [place] [address] Oil Scout: Ulisses Gaines MD OPERATIVE REPORTon 3 OPERATIVE REPORT [address] [address] OPERATIVE REPORT PATIENT NAME: CHEMA CHILDS : 1940 MED REC NO: [id number] ROOM: ACCOUNT NO: [id number] ADMIT DATE: 10/03/2022 PROVIDER: Erica Veras DATE OF PROCEDURE: 10/03/2022 SURGEON: Dr. Erica Veras. PLATE MOLDER: None. PREOPERATIVE DIAGNOSES: 1. BPH with lower urinary tract symptoms. 2. Urinary frequency. 3. Urinary urgency. 4. Urinary weak stream. POSTOPERATIVE DIAGNOSES: 1. BPH with lower urinary tract symptoms. 2. Urinary frequency. 3. Urinary urgency. 4. Urinary weak stream. PROCEDURES PERFORMED: Photoselective vaporization of the prostate with GreenLight laser XPS. ANESTHESIA: General. COMPLICATIONS: None. ESTIMATED BLOOD LOSS: Minimal. SPECIMENS: None. PROSTHESIS: A 22-Cymraes Gould catheter. DISPOSITION: Stable. FINDINGS: Trilobar hyperplasia of the prostate. INDICATIONS: This patient is an 82-year-old male with extensive lower urinary tract symptoms, here now for definitive therapy in the form of PVP GreenLight DESCRIPTION OF PROCEDURE: The patient was taken back to the operating room after informed consent including all risks, benefits, and alternatives were obtained. The patient was transferred from the [facility] onto the operating room table, where he was induced under general anesthesia, and given IV Ancef for preoperative antibiotic prophylaxis. To begin the case, he was prepped and draped in the normal sterile fashion, and placed in the dorsal lithotomy. He had a 24-Cymraes sheath with a 30-degree lens passed through [...] then removed the scope and inserted a 22-Cymraes three-way Gould catheter and hand irrigated to clear. He was then awoken from general anesthesia, transferred to the [facility], and taken to the PACU in satisfactory condition by Nursing and Anesthesia Teams. PLAN: The patient will be discharged home per PACU criterion and follow up with us in [id number] days for Gould catheter removal. ERICA RITO [email or web address] Doc#: [id number] CC: Normal [facility] Cult,Urineon 08-29-2022 Cult,Urine Specimen Description .CLEAN CATCH URINE Culture NO GROWTH Report Status FINAL 08/29/2022 [facility] Comment on above: Performed By: #### U RC #### [address] [address] Oil Scout: Sandip Smith MD [facility] [facility] [address] [place] [address] [place] [address] Oil Scout: Ulisses Gaines MD Urinalysis w/ Microon 2022 Bacteria 1+ Abnormal NONE [facility] Comment on above: Performed By: #### U AMIC #### [facility] [address] [place] [address] Oil Scout: Ulisses Gaines MD Bilirubin, SemiQt,Ur Negative Normal [facility] Comment on above: Performed By: #### U AMIC #### [facility] [address] [place] [address] [place] [address] Oil Scout: Ulisses Gaines MD Blood, Urine Negative Normal NEG [facility] Comment on above: Performed By: #### U AMIC #### [facility] [address] [place], [place] [id number] Oil Scout: Ulisses Gaines MD Clarity (U) Clear Normal CLEAR [facility] Comment on above: Performed By: #### U AMIC #### [facility] [address] [place] [address] Dr. [place], [place] [id number] Oil Scout: Ulisses Gaines MD Color (U) Yellow Normal YEL [facility] Comment on above: Performed By: #### U AMIC #### [facility] [address] [place] [address] Dr. [place], [place] [id number] Oil Scout: Ulisses Gaines MD Epithelial cells LM Ql (Urine sed) 0 TO 2 Normal 0-5 [facility] Comment on above: Performed By: #### U AMIC #### [facility] [address] [place] [address] Dr. [place], [place] [id number] Oil Scout: Ulisses Gaines MD Glucose Ql (U) Negative Normal NEG [facility] Comment on above: Performed By: #### U AMIC #### [facility] [address] [place] [address] Dr. [place], [place] [id number] Oil Scout: Ulisses Gaines MD Ketones Ql (U) Negative Normal NEG [facility] Comment on above: Performed By: #### U AMIC #### [facility] [address] [place] [address] [place], [place] [id number] Oil Scout: Ulisses Gaines MD Leukocyte esterase Test strip Ql (U) Negative Normal NEG [facility] Comment on above: Performed By: #### U AMIC #### [facility] [address] [place] [address] Dr[place], [place] [id number] Oil Scout: Ulisses Gaines MD Nitrite,Ur Negative Normal NEG [facility] Comment on above: Performed By: #### U AMIC #### [facility] [address] [place] [address] Dr. [place], [place] [id number] Oil Scout: Ulisses Gaines MD PH,Ur 6.0 Normal 5.0-9.0 [facility] Comment on above: Performed By: #### U AMIC #### [facility] [address] [place], [place] [id number] Oil Scout: Ulisses Gaines MD Protein Ql (U) Negative Normal NEG [facility] Comment on above: Performed By: #### U AMIC #### [address] [place], [place] [id number] Oil Scout: Ulisses Gaines MD Spec. [place],Ur 1.015 Normal 1.010-1.020 [facility] Comment on above: Performed By: #### U AMIC #### [address] [place], [place] [id number] Oil Scout: Ulisses Gaines MD Urine RBC's None Normal 0-2 [facility] Comment on above: Performed By: #### U AMIC #### [address] [place], [place] [id number] Oil Scout: Ulisses Gaines MD Urine WBC's 0 TO 2 Normal 0-5 [facility] Comment on above: Performed By: #### U AMIC #### [facility] [address] [place] [address] Dr. [place], [place] [id number] Oil Scout: Ulisses Gaines MD Urobilinogen,Ur Normal Normal NORM [facility] Comment on above: Performed By: #### U AMIC #### [address] [place] [address] Oil Scout: Ulisses Gaines MD Cult,Urineon 08-10-2022 Cult,Urine Specimen Description .CLEAN CATCH URINE Culture NO GROWTH Report Status FINAL 08/10/2022 Normal [facility] Comment on above: Performed By: #### U RC #### [facility] [address] [place] [address] Oil Scout: Sandip Smith MD [facility] [address] [place] [address] Oil Scout: Ulisses Gaines MD HEMOGLOBINon 07-03-2022 Hemoglobin (Bld) [Mass/Vol] 13.6 g/dL Critically low 14.0-18.0 [facility] Comment on above: Performed By: #### P OCGLUC #### [facility] [address] [place], [place] [address] CHEST WO CONon [...] PAULINA BOWLES Date: 2022-06-26 16:34 Normal [facility] PULMONARY FUNCTION TESTon PULMONARY FUNCTION TEST [...] oxygen. Clinical correlation is required. Normal [facility] Cult,Urineon 06-15-2022 Cult,Urine Specimen Description .CLEAN CATCH URINE Culture NO GROWTH Report Status FINAL 06/15/2022 Normal [facility] Comment on above: Performed By: #### U RC #### [facility] [address] [place] [address] Oil Scout: Sandip Smith MD [facility] [address] [facility] [place] [address] Oil Scout: Ulisses Gaines MD CBC AUTO DIFFon 04-19-2022 BASO # 0.0 103/ul Normal 0.0-0.1 [facility] Comment on above: Performed By: #### L ACT #### [facility] [address] [place] [address] Dr. Kerrie Stark Basophils/100 WBC (Bld) 0.2 % Normal 0.2-2.0 [facility] Comment on above: Performed By: #### L ACT #### [facility] [address] [place] [address] Dr. Kerrie Stark EO # 0.0 103/ul Normal 0.0-0.7 [facility] Comment on above: Performed By: #### L ACT #### [facility] [address] [place] [address] Dr. Kerrie Stark Eosinophils/100 WBC (Bld) 0.2 % Critically low 0.9-7.0 [facility] Comment on above: Performed By: #### L ACT #### [facility] [address] [place] [address] Dr. Kerrie Stark Erythrocyte distribution width (RBC) [Ratio] 13.3 % Normal 11.0-15.0 [facility] Comment on above: Performed By: #### L ACT #### [facility] [address] [place] [address] Dr. Kerrie Stark Hematocrit (Bld) [Volume fraction] 38.8 % Critically low 42.0-54.0 [facility] Comment on above: Performed By: #### L ACT #### [facility] [address] [place] [address] Dr. Kerrie Stark Hemoglobin (Bld) [Mass/Vol] 13.1 g/dL Critically low 14.0-18.0 [facility] Comment on above: Performed By: #### L ACT #### [facility] [address] [place] [address] Dr. Kerrie Stark IG # 0.35 10e3/ul Critically high 0.00-0.03 [facility] Comment on above: Performed By: #### L ACT #### [facility] [address] [place] [address] Dr. Kerrie Stark IG % 2.6 % Critically high 0.0-0.5 [facility] Comment on above: Performed By: #### L ACT #### [facility] [address] [place] [address] Dr. Kerrie Stark LYMPH # 1.3 103/ul Normal 1.2-3.8 [facility] Comment on above: Performed By: #### L ACT #### [facility] [address] [place] [address] Dr. Kerrie Stark Lymphocytes/100 WBC (Bld) 9.7 % Critically low 20.5-60.0 [facility] Comment on above: Performed By: #### L ACT #### [facility] [address] [place] [address] Dr. Kerrie Stark MANUAL DIFF REQ NO Normal [facility] Comment on above: Performed By: #### L ACT #### [facility] [address] [place] [address] Dr. Kerrie Stark MCH (RBC) [Entitic mass] 32.8 pg Normal 25.9-34.0 [facility] Comment on above: Performed By: #### L ACT #### [facility] [address] [place] [address] Dr. Kerrie Stark MCHC (RBC) [Mass/Vol] 33.8 g/dL Normal 29.9-35.2 [facility] Comment on above: Performed By: #### L ACT #### [facility] [address] [place] [address] Dr. Kerrie Stark MCV (RBC) [Entitic vol] 97.2 fL Critically high 80.0-94.0 [facility] Comment on above: Performed By: #### L ACT #### [facility] [address] [place] [address] Dr. Kerrie Stark MONO # 0.8 103/ul Normal 0.3-0.8 [facility] Comment on above: Performed By: #### L ACT #### [facility] [address] [place] [address] Dr. Kerrie Stark Monocytes/100 WBC (Bld) 5.9 % Normal 1.7-12.0 [facility] Comment on above: Performed By: #### L ACT #### [facility] [address] [place] [address] Dr. Kerrie Stark NEUT # 10.8 103/ul Critically high 1.4-6.5 [facility] Comment on above: Performed By: #### L ACT #### [facility] [address] [place] [address] Dr. Kerrie Stark Neutrophils/100 WBC (Bld) 81.4 % Critically high 43.0-75.0 [facility] Comment on above: Performed By: #### L ACT #### [facility] [address] [place] [address] Dr. Kerrie Stark Platelet mean volume (Bld) [Entitic vol] 10.4 fL Normal 9.5-13.5 [facility] Comment on above: Performed By: #### L ACT #### [facility] [address] [address] [address] Kerrie Stark PLT 158 103/ul Normal 150-450 [facility] Comment on above: Performed By: #### L ACT #### [facility] [address] [address] [address] Kerrie Stark RBC 3.99 106/ul Critically low 4.70-6.10 [facility] Comment on above: Performed By: #### L ACT #### [facility] [address] [address] [address] Kerrie Stark WBC 13.2 103/ul Critically high 4.0-11.0 [facility] Comment on above: Performed By: #### L ACT #### [facility] [address] [address] [address] Kerrie Stark GLYCOHEMOGLOBIN A1Con 2022 ADA RECOMMENDATION SEE BELOW Normal [facility] Comment on above: Result Comment: ADA RECOMMENDED LIMIT 4.0 - 6.0 ADA THERAPEUTIC TARGET < 7.0 ACTION SUGGESTED > 7.0 Performed By: #### P OCGLUC #### [facility] [address] [place] [address] Dr. Kerrie Stark Glucose [Mass/Vol] 206 mg/dL Normal [facility] Comment on above: Performed By: #### P OCGLUC #### [facility] [address] [address] [address] Kerrie Stark HbA1c (Bld) [Mass fraction] 8.8 % Critically high 4.5-6.2 [facility] Comment on above: Performed By: #### P OCGLUC #### [facility] [address] [place] [address] Dr. Kerrie Stark LIPID PROFILEon 04-19-2022 CHOL-HDL RATIO NORM SEE BELOW Normal [facility] Comment on above: Result Comment: 3.3 - 4.4 LOW RISK 4.4 - 7.1 AVERAGE RISK 7.1 - 11.0 MODERATE RISK >11.0 HIGH RISK Performed By: #### D DIM #### [facility] [address] [address] [address] Kerrie Stark Cholesterol [Mass/Vol] 134 mg/dL Normal <=200 [facility] Comment on above: Performed By: #### D DIM #### [facility] [address] [address] [address] Kerrie Stark Cholesterol in HDL [Mass/Vol] 46 mg/dL Normal 40-60 [facility] Comment on above: Performed By: #### D DIM #### [facility] [address] [address] [address] Kerrie Stark Cholesterol in LDL [Mass/Vol] 65.8 mg/dL Normal [facility] Comment on above: Performed By: #### D DIM #### [facility] [address] [place] [address] Dr. Kerrie Stark Cholesterol.total/Chol esterol in HDL [Mass ratio] 2.9 {ratio} Normal [facility] Comment on above: Performed By: #### D DIM #### [facility] [address] [address] [address] Kerrie Stark HDL NORMAL > or = 60 mg/dl - LOW CARDIOVASCULAR RISK <40 mg/dl - HIGH CARDIOVASCULAR RISK Normal [facility] Comment on above: Performed By: #### D DIM #### [facility] [address] [address] [address] Kerrie Stark LDL CALC NORMAL SEE BELOW Normal [facility] Comment on above: Result Comment: <100 mg/dl OPTIMAL 100 - 129 mg/dl NEAR OR ABOVE OPTIMAL 130 - 159 mg/dl BORDERLINE HIGH 160 - 189 mg/dl HIGH >190 mg/dl VERY HIGH Performed By: #### D DIM #### [facility] [address] [address] [address] Kerrie Stark Triglyceride [Mass/Vol] 111 mg/dL Normal <=150 [facility] Comment on above: Performed By: #### D DIM #### [facility] [address] [address] [address] Kerrie Stark VLDL CALC 22.2 mg/dL Normal [facility] Comment on above: Performed By: #### D DIM #### [facility] [address] [place] [address] Dr. Kerrie Stark PROF 14(COMP METB)on 023 Albumin [Mass/Vol] 2.6 g/dL Critically low 3.4-5.0 [facility] Comment on above: Performed By: #### D DIM #### [facility] [address] [place] [address] Dr. Kerrie Stark Albumin/Globulin [Mass ratio] 0.8 {ratio} Normal [facility] Comment on above: Performed By: #### D DIM #### [facility] [address] [place] [address] Dr. Kerrie Stark ALP [Catalytic activity/Vol] 49 U/L Normal 46-116 [facility] Comment on above: Performed By: #### D DIM #### [facility] [address] [place] [address] Dr. Kerrie Stark ALT [Catalytic activity/Vol] 27 U/L Normal 16-63 [facility] Comment on above: Performed By: #### D DIM #### [facility] [address] [place] [address] Dr. Kerrie Stark Anion gap [Moles/Vol] 12.1 mmol/L Normal [facility] Comment on above: Performed By: #### D DIM #### [facility] [address] [place] [address] Dr. Kerrie Stark AST [Catalytic activity/Vol] 19 U/L Normal 15-37 [facility] Comment on above: Performed By: #### D DIM #### [facility] [address] [place] [address] Dr. Kerrie Stark Bilirubin [Mass/Vol] 0.6 mg/dL Normal 0.2-1.0 [facility] Comment on above: Performed By: #### D DIM #### [facility] [address] [place] [address] Dr. Kerrie Stark Calcium [Mass/Vol] 9.0 mg/dL Normal 8.5-10.1 [facility] Comment on above: Performed By: #### D DIM #### [facility] [address] [address] [address] Kerrie Stark Chloride [Moles/Vol] 102 mmol/L Normal 98-107 [facility] Comment on above: Performed By: #### D DIM #### [facility] [address] [address] [address] Kerrie Stark CO2 [Moles/Vol] 27.0 mmol/L Normal 21.0-32.0 [facility] Comment on above: Performed By: #### D DIM #### [facility] [address] [address] [address] Kerrie Stark Creatinine [Mass/Vol] 0.90 mg/dL Normal 0.70-1.30 [facility] Comment on above: Performed By: #### D DIM #### [facility] [address] [place] [address] Dr. Kerrie Stark EGFR-AF MALIAN >60 Normal >=60 [facility] Comment on above: Performed By: #### D DIM #### [facility] [address] [place] [address] Dr. Kerrie Stark EGFR-NON AF MALIAN >60 Normal >=60 [facility] Comment on above: Performed By: #### D DIM #### [facility] [address] [place] [address] Dr. Kerrie Stark Globulin (S) [Mass/Vol] 3.2 g/dL Normal [facility] Comment on above: Performed By: #### D DIM #### [facility] [address] [address] [address] Kerrie Stark Glucose [Mass/Vol] 104 mg/dL Normal 74-106 [facility] Comment on above: Performed By: #### D DIM #### [facility] [address] [place] [address] Dr. Kerrie Stark Potassium [Moles/Vol] 4.1 mmol/L Normal 3.5-5.1 [facility] Comment on above: Performed By: #### D DIM #### [facility] [address] [address] [address] Kerrie Stark Protein [Mass/Vol] 5.8 g/dL Critically low 6.4-8.2 [facility] Comment on above: Performed By: #### D DIM #### [facility] [address] [address] [address] Kerrie Stark Sodium [Moles/Vol] 137 mmol/L Normal 136-145 [facility] Comment on above: Performed By: #### D DIM #### [facility] [address] [address] [address] Kerrie Stark Urea nitrogen [Mass/Vol] 31.0 mg/dL Critically high 7.0-18.0 [facility] Comment on above: Performed By: #### D DIM #### [facility] [address] [place] [address] Dr. Kerrie Stark Urea nitrogen/Creatinine [Mass ratio] 34.4 mg/mg Normal [facility] Comment on above: Performed By: #### D DIM #### [facility] [address] [address] [address] Kerrie Stark TSHon 04-19-2022 TSH 0.699 uIU/mL Normal 0.358-3.740 [facility] Comment on above: Performed By: #### D DIM #### [facility] [address] [address] [address] Kerrie Stark VITAMIN D 25 OHon 04-19-2022 VIT D 25-OH 53.9 ng/mL Normal [facility] Comment on above: Performed By: #### D DIM #### [facility] [address] [address] [address] Kerrie Stark VIT D RANGES SEE BELOW Normal [facility] Comment on above: Result Comment: <20 ng/mL Vit D deficient 20 - <30 ng/mL Vit D insufficient 30 - 100 ng/mL Vit D sufficient >100 ng/mL Potential Toxicity Performed By: #### D DIM #### [facility] [address] [id number] Kerrie Stark CBC W MANUAL DIFFon 04-08-19 23 ATYPICAL LYMPH # Normal [facility] Comment on above: Performed By: #### L ACT #### [facility] [address] [address] [address] Kerrie Stark ATYPICAL LYMPH % Normal [facility] Comment on above: Performed By: #### L ACT #### [facility] [address] [address] [address] Kerrie Stark BAND # 0.0 103/ul Normal 0.0-0.3 [facility] Comment on above: Performed By: #### L ACT #### [facility] [address] [place] [address] Dr. Kerrie Stark BAND % 0 % Normal 0-5 [facility] Comment on above: Performed By: #### L ACT #### [facility] [address] [place] [address] Dr. Kerrie Stark BASOM # 0.00 103/ul Normal 0.00-0.10 [facility] Comment on above: Performed By: #### L ACT #### [facility] [address] [place] [address] Dr. Kerrie Stark BASOM % 0.0 % Critically low 0.2-2.0 [facility] Comment on above: Performed By: #### L ACT #### [facility] [address] [place] [address] Dr. Kerrie Stark BLAST # Normal [facility] Comment on above: Performed By: #### L ACT #### [facility] [address] [place] [address] Dr. Kerrie Stark BLAST % Normal [facility] Comment on above: Performed By: #### L ACT #### [facility] [address] [place] [address] Dr. Kerrie Stark CORRECTED WBC Normal 4.0-11.0 [facility] Comment on above: Performed By: #### L ACT #### [facility] [address] [place] [address] Dr. Kerrie Stark EOS # 0.00 103/ul Normal 0.00-0.70 [facility] Comment on above: Performed By: #### L ACT #### [facility] [address] [address] [address] Kerrie Stark EOS% 0.0 % Critically low 0.9-7.0 [facility] Comment on above: Performed By: #### L ACT #### [facility] [address] [address] [address] Kerrie Stark HCT 36.7 % Critically low 42.0-54.0 [facility] Comment on above: Performed By: #### L ACT #### [facility] [address] [place] [address] Dr. Kerrie Stark HGB 12.5 g/dl Critically low 14.0-18.0 [facility] Comment on above: Performed By: #### L ACT #### [facility] [address] [place] [address] Dr. Kerrie Stark LYMPHM # 0.22 103/ul Critically low 1.20-3.80 [facility] Comment on above: Performed By: #### L ACT #### [facility] [address] [place] [address] Dr. Kerrie Stark LYMPHM% 2.0 % Critically low 20.5-60.0 [facility] Comment on above: Performed By: #### L ACT #### [facility] [address] [place] [address] Dr. Kerrie Stark MCH 32.6 pg Normal 25.9-34.0 [facility] Comment on above: Performed By: #### L ACT #### [facility] [address] [address] [address] Kerrie Stark MCHC 34.1 g/dl Normal 29.9-35.2 [facility] Comment on above: Performed By: #### L ACT #### [facility] [address] [place] [address] Dr. Kerrie Stark MCV 95.8 fL Critically high 80.0-94.0 [facility] Comment on above: Performed By: #### L ACT #### [facility] [address] [place] [address] Dr. Kerrie Stark METAMYELOCYTE # Normal [facility] Comment on above: Performed By: #### L ACT #### [facility] [address] [address] [address] Kerrie Stark METAMYELOCYTE % Normal [facility] Comment on above: Performed By: #### L ACT #### [facility] [address] [address] [address] Kerrie Stark MONOM# 0.34 103/ul Normal 0.30-0.80 [facility] Comment on above: Performed By: #### L ACT #### [facility] [address] [address] [address] Kerrei Stark MONOM% 3.0 % Normal 1.7-12.0 [facility] Comment on above: Performed By: #### L ACT #### [facility] [address] [place] [address] Dr. Kerrie Stark MPV 10.9 fL Normal 9.5-13.5 [facility] Comment on above: Performed By: #### L ACT #### [facility] [address] [place] [address] Dr. Kerrie Stark MYELOCYTE # 0.1 103/ul Normal [facility] Comment on above: Performed By: #### L ACT #### [facility] [address] [place] [address] Dr. Kerrie Stark MYELOCYTE % 1 % Normal [facility] Comment on above: Performed By: #### L ACT #### [facility] [address] [place] [address] Dr. Kerrie Stark NRBC Normal [facility] Comment on above: Performed By: #### L ACT #### [facility] [address] [address] [address] Kerrie Stark PLT 140 103/ul Critically low 150-450 [facility] Comment on above: Performed By: #### L ACT #### [facility] [address] [place] [address] Dr. Kerrie Stark RBC 3.83 106/ul Critically low 4.70-6.10 [facility] Comment on above: Performed By: #### L ACT #### [facility] [address] [address] [address] Kerrie Stark RDW 12.9 % Normal 11.0-15.0 [facility] Comment on above: Performed By: #### L ACT #### [facility] [address] [place], [place] [address] Dr. Kerrie Stark SEG # 10.53 103/ul Critically high 1.40-6.50 [facility] Comment on above: Performed By: #### L ACT #### [facility] [address] [address] [address] Kerrie Stark SEG % 94.0 % Critically high 43.0-75.0 [facility] Comment on above: Performed By: #### L ACT #### [facility] [address] [address] [address] Kerrie Stark WBC 11.2 103/ul Critically high 4.0-11.0 [facility] Comment on above: Performed By: #### L ACT #### [facility] [address] [address] [address] Kerrie Stark [facility] SARS-CoV-2 (COVID-19) RNA QUE+probe Ql (Unsp spec) Detected Abnormal NOT DETECTED [facility] Comment on above: Result Comment: This test is not yet approved or cleared by the [place] FDA. When there are no FDA-approved or cleared tests available, and other criteria are met, FDA can make tests available under an emergency access mechanism called an Emergency Use Authorization (EUA). The EUA for this test is supported by the [place] of Health and Human Service's declaration that [...] used). Performed By: #### L ACT #### [facility] [address] [address] Dr. Kerrie Stark LACTATE/LACTIC ACIDon 2022 Lactate [Moles/Vol] 1.3 mmol/L Normal 0.4-1.9 [facility] Comment on above: Performed By: #### L ACT #### [facility] [address] [address] [address] Kerrie Stark POINT OF CARE GLUCOSEon 03-22 Glucose [Mass/Vol] 344 mg/dL Critically high 74-106 [facility] Comment on above: Performed By: #### L ACT #### [facility] [address] [address] [address] Kerrie Stark Glucose [Mass/Vol] 242 mg/dL Critically high -106 [facility] Comment on above: Performed By: #### P OCGLUC #### [facility] [address] [address] [address] Kerrie Stark PROCALCITONINon 04-08-2022 Procalcitonin 0.06 ng/mL Normal 0.00-0.08 [facility] Comment on above: Result Comment: . [...] obtained. Performed By: #### D DIM #### [facility] [address] [address] [address] Kerrie Stark PROF 14(COMP METB)on 023 Albumin [Mass/Vol] 2.0 g/dL Critically low 3.4-5.0 [facility] Comment on above: Performed By: #### P OCGLUC #### [facility] [address] [address] [address] Kerrie Stark Albumin/Globulin [Mass ratio] 0.5 {ratio} Normal [facility] Comment on above: Performed By: #### P OCGLUC #### [facility] [address] [address] [address] Kerrie Stark ALP [Catalytic activity/Vol] 61 U/L Normal 46-116 [facility] Comment on above: Performed By: #### P OCGLUC #### [facility] [address] [address] [address] Kerrie Stark ALT [Catalytic activity/Vol] 33 U/L Normal 16-63 [facility] Comment on above: Performed By: #### P OCGLUC #### [facility] [address] [address] [address] Kerrie Stark Anion gap [Moles/Vol] 13.2 mmol/L Normal [facility] Comment on above: Performed By: #### P OCGLUC #### [facility] [address] [address] [address] Kerrie Stark AST [Catalytic activity/Vol] 27 U/L Normal 15-37 [facility] Comment on above: Performed By: #### P OCGLUC #### [facility] [address] [address] [address] Kerrie Stark Bilirubin [Mass/Vol] 0.3 mg/dL Normal 0.2-1.0 [facility] Comment on above: Performed By: #### P OCGLUC #### [facility] [address] [address] [address] Kerrie Stark Calcium [Mass/Vol] 8.7 mg/dL Normal 8.5-10.1 [facility] Comment on above: Performed By: #### P OCGLUC #### [facility] [address] [address] [address] Kerrie Stark Chloride [Moles/Vol] 102 mmol/L Normal 98-107 [facility] Comment on above: Performed By: #### P OCGLUC #### [facility] [address] [address] [address] Kerrie Stark CO2 [Moles/Vol] 22.0 mmol/L Normal 21.0-32.0 [facility] Comment on above: Performed By: #### P OCGLUC #### [facility] [address] [address] [address] Kerrie Stark Creatinine [Mass/Vol] 0.88 mg/dL Normal 0.70-1.30 [facility] Comment on above: Performed By: #### P OCGLUC #### [facility] [address] [address] [address] Kerrie Stark EGFR-AF MALIAN >60 Normal >=60 [facility] Comment on above: Performed By: #### P OCGLUC #### [facility] [address] [address] [address] Kerrie Stakr EGFR-NON AF MALIAN >60 Normal >=60 [facility] Comment on above: Performed By: #### P OCGLUC #### [facility] [address] [address] [address] Kerrie Stark Globulin (S) [Mass/Vol] 3.7 g/dL Normal [facility] Comment on above: Performed By: #### P OCGLUC #### [facility] [address] [address] [address] Kerrie Stark Glucose [Mass/Vol] 266 mg/dL Critically high 74-106 [facility] Comment on above: Performed By: #### P OCGLUC #### [facility] [address] [address] [address] Kerrie Stark Potassium [Moles/Vol] 4.2 mmol/L Normal 3.5-5.1 [facility] Comment on above: Performed By: #### P OCGLUC #### [facility] [address] [address] [address] Kerrie Stark Protein [Mass/Vol] 5.7 g/dL Critically low 6.4-8.2 [facility] Comment on above: Performed By: #### P OCGLUC #### [facility] [address] [address] [address] Kerrie Stark Sodium [Moles/Vol] 133 mmol/L Critically low 136-145 [facility] Comment on above: Performed By: #### P OCGLUC #### [facility] [address] [address] [address] Kerrie Stark Urea nitrogen [Mass/Vol] 21.0 mg/dL Critically high 7.0-18.0 [facility] Comment on above: Performed By: #### P OCGLUC #### [facility] [address] [address] [address] Kerrie Stark Urea nitrogen/Creatinine [Mass ratio] 23.9 mg/mg Normal [facility] Comment on above: Performed By: #### P OCGLUC #### [facility] [address] [place] [address] Dr. Kerrie Stark CBC W MANUAL DIFFon 04-07-19 23 ATYPICAL LYMPH # 0.14 103/ul Normal [facility] Comment on above: Performed By: #### L ACT #### [facility] [address] [place] [address] Dr. Kerrie Satrk ATYPICAL LYMPH % 1 % Normal [facility] Comment on above: Performed By: #### L ACT #### [facility] [address] [place] [address] Dr. Kerrie Stark BAND # 0.0 103/ul Normal 0.0-0.3 [facility] Comment on above: Performed By: #### L ACT #### [facility] [address] [place] [address] Dr. Kerrie Stark BAND % 0 % Normal 0-5 [facility] Comment on above: Performed By: #### L ACT #### [facility] [address] [place] [address] Dr. Kerrie Stark BASOM # 0.00 103/ul Normal 0.00-0.10 [facility] Comment on above: Performed By: #### L ACT #### [facility] [address] [place] [address] Dr. Kerrie Stark BASOM % 0.0 % Critically low 0.2-2.0 [facility] Comment on above: Performed By: #### L ACT #### [facility] [address] [place] [address] Dr. Kerrie Stark BLAST # Normal [facility] Comment on above: Performed By: #### L ACT #### [facility] [address] [place] [address] Dr. Kerrie Stark BLAST % Normal [facility] Comment on above: Performed By: #### L ACT #### [facility] [address] [place] [address] Dr. Kerrie Stark CORRECTED WBC Normal 4.0-11.0 [facility] Comment on above: Performed By: #### L ACT #### [facility] [address] [place] [address] Dr. Kerrie Stark EOS # 0.00 103/ul Normal 0.00-0.70 [facility] Comment on above: Performed By: #### L ACT #### [facility] [address] [place] [address] Dr. Kerrie Stark EOS% 0.0 % Critically low 0.9-7.0 [facility] Comment on above: Performed By: #### L ACT #### [facility] [address] [place] [address] Dr. Kerrie Stark HCT 35.9 % Critically low 42.0-54.0 [facility] Comment on above: Performed By: #### L ACT #### [facility] [address] [place] [address] Dr. Kerrie Stark HGB 12.0 g/dl Critically low 14.0-18.0 [facility] Comment on above: Performed By: #### L ACT #### [facility] [address] [place] [address] Dr. Kerrie Stark LYMPHM # 0.28 103/ul Critically low 1.20-3.80 [facility] Comment on above: Performed By: #### L ACT #### [facility] [address] [place] [address] Dr. Kerrie Stark LYMPHM% 2.0 % Critically low 20.5-60.0 [facility] Comment on above: Performed By: #### L ACT #### [facility] [address] [place] [address] Dr. Kerrie Stark MCH 32.6 pg Normal 25.9-34.0 [facility] Comment on above: Performed By: #### L ACT #### [facility] [address] [place] [address] Dr. Kerrie Stark MCHC 33.4 g/dl Normal 29.9-35.2 [facility] Comment on above: Performed By: #### L ACT #### [facility] [address] [place] [address] Dr. Kerrie Stark MCV 97.6 fL Critically high 80.0-94.0 [facility] Comment on above: Performed By: #### L ACT #### [facility] [address] [place] [address] Dr. Kerrie Stark METAMYELOCYTE # Normal [facility] Comment on above: Performed By: #### L ACT #### [facility] [address] [place] [address] Dr. Kerrie Stark METAMYELOCYTE % Normal [facility] Comment on above: Performed By: #### L ACT #### [facility] [address] [place] [address] Dr. Kerrie Stark MONOM# 0.00 103/ul Critically low 0.30-0.80 [facility] Comment on above: Performed By: #### L ACT #### [facility] [address] [place] [address] Dr. Kerrie Stark MONOM% 0.0 % Critically low 1.7-12.0 [facility] Comment on above: Performed By: #### L ACT #### [facility] [address] [place] [address] Dr. Kerrie Stark MPV 10.6 fL Normal 9.5-13.5 [facility] Comment on above: Performed By: #### L ACT #### [facility] [address] [place] [address] Dr. Kerrie Stark MYELOCYTE # Normal [facility] Comment on above: Performed By: #### L ACT #### [facility] [address] [address] [address] Kerrie Stark MYELOCYTE % Normal [facility] Comment on above: Performed By: #### L ACT #### [facility] [address] [address] [address] Kerrie Stark NRBC Normal [facility] Comment on above: Performed By: #### L ACT #### [facility] [address] [address] [address] Kerrie Stark PLT 125 103/ul Critically low 150-450 [facility] Comment on above: Performed By: #### L ACT #### [facility] [address] [place] [address] Dr. Kerrie Stark RBC 3.68 106/ul Critically low 4.70-6.10 [facility] Comment on above: Performed By: #### L ACT #### [facility] [address] [place] [address] Dr. Kerrie Stark RDW 13.2 % Normal 11.0-15.0 [facility] Comment on above: Performed By: #### L ACT #### [facility] [address] [place] [address] Dr. Kerrie Stark SEG # 13.77 103/ul Critically high 1.40-6.50 [facility] Comment on above: Performed By: #### L ACT #### [facility] [address] [place] [address] Dr. Kerrie Stark SEG % 97.0 % Critically high 43.0-75.0 [facility] Comment on above: Performed By: #### L ACT #### [facility] [address] [place] [address] Dr. Kerrie Stark TOXIC GRANULATION 2+ Normal [facility] Comment on above: Performed By: #### L ACT #### [facility] [address] [address] [address] Kerrie Stark WBC 14.2 103/ul Critically high 4.0-11.0 [facility] Comment on above: Performed By: #### L ACT #### [facility] [address] [place] [address] Dr. Kerrie Stark Covid-19 PCR ([facility])on 03-22 SARS-CoV-2 (COVID-19) RNA QUE+probe Ql (Unsp spec) Detected Abnormal NOT DETECTED [facility] Comment on above: Result Comment: This test is not yet approved or cleared by the [place] FDA. When there are no FDA-approved or cleared tests available, and other criteria are met, FDA can make tests available under an emergency access mechanism called an Emergency Use Authorization (EUA). The EUA for this test is supported by the Medication Reconciliation Technician of Health and Human Service's declaration that [...] used). Performed By: #### L ACT #### [facility] [address] [place] [address] Dr. Kerrie Stark LACTATE/LACTIC ACIDon 2022 Lactate [Moles/Vol] 1.1 mmol/L Normal 0.4-1.9 [facility] Comment on above: Performed By: #### P OCGLUC #### [facility] [address] [place] [address] Dr. Kerrie Stark POINT OF CARE GLUCOSEon 03-22 Glucose [Mass/Vol] 316 mg/dL Critically high 74-106 [facility] Comment on above: Performed By: #### P OCGLUC #### [facility] [address] [place] [address] Dr. Kerrie Stark Glucose [Mass/Vol] 182 mg/dL Critically high 74-106 [facility] Comment on above: Performed By: #### P OCGLUC #### [facility] [address] [place] [address] Dr. Kerrie Stark Glucose [Mass/Vol] 318 mg/dL Critically high 74-106 [facility] Comment on above: Performed By: #### P OCGLUC #### [facility] [address] [place] [address] Dr. Kerrie Stark PROF 14(COMP METB)on 023 Albumin [Mass/Vol] 1.9 g/dL Critically low 3.4-5.0 [facility] Comment on above: Performed By: #### P OCGLUC #### [facility] [address] [place] [address] Dr. Kerrie Stark Albumin/Globulin [Mass ratio] 0.5 {ratio} Normal [facility] Comment on above: Performed By: #### P OCGLUC #### [facility] [address] [place] [address] Dr. Kerrie Stark ALP [Catalytic activity/Vol] 50 U/L Normal 46-116 [facility] Comment on above: Performed By: #### P OCGLUC #### [facility] [address] [place] [address] Dr. Kerrie Stark ALT [Catalytic activity/Vol] 24 U/L Normal 16-63 [facility] Comment on above: Performed By: #### P OCGLUC #### [facility] [address] [place] [address] Dr. Kerrie Stark Anion gap [Moles/Vol] 12.9 mmol/L Normal [facility] Comment on above: Performed By: #### P OCGLUC #### [facility] [address] [place] [address] Dr. Kerrie Stark AST [Catalytic activity/Vol] 19 U/L Normal 15-37 [facility] Comment on above: Performed By: #### P OCGLUC #### [facility] [address] [place] [address] Dr. Kerrie Stark Bilirubin [Mass/Vol] 0.3 mg/dL Normal 0.2-1.0 [facility] Comment on above: Performed By: #### P OCGLUC #### [facility] [address] [place] [address] Dr. Kerrie Stark Calcium [Mass/Vol] 8.5 mg/dL Normal 8.5-10.1 [facility] Comment on above: Performed By: #### P OCGLUC #### [facility] [address] [address] [address] Kerrie Stark Chloride [Moles/Vol] 103 mmol/L Normal 98-107 [facility] Comment on above: Performed By: #### P OCGLUC #### [facility] [address] [address] [address] Kerrie Stark CO2 [Moles/Vol] 22.2 mmol/L Normal 21.0-32.0 [facility] Comment on above: Performed By: #### P OCGLUC #### [facility] [address] [place] [address] Dr. Kerrie Stark Creatinine [Mass/Vol] 1.17 mg/dL Normal 0.70-1.30 [facility] Comment on above: Performed By: #### P OCGLUC #### [facility] [address] [address] [address] Kerrie Stark EGFR-AF MALIAN >60 Normal >=60 [facility] Comment on above: Performed By: #### P OCGLUC #### [facility] [address] [place] [address] Dr. Kerrie Stark EGFR-NON AF MALIAN 60 mL/min/1.73m2 Normal >=60 [facility] Comment on above: Performed By: #### P OCGLUC #### [facility] [address] [address] [address] Kerrie Stark Globulin (S) [Mass/Vol] 3.8 g/dL Normal [facility] Comment on above: Performed By: #### P OCGLUC #### [facility] [address] [address] [address] Kerrie Stark Glucose [Mass/Vol] 283 mg/dL Critically high 74-106 [facility] Comment on above: Performed By: #### P OCGLUC #### [facility] [address] [place] [address] Dr. Kerrie Stark Potassium [Moles/Vol] 4.1 mmol/L Normal 3.5-5.1 [facility] Comment on above: Performed By: #### P OCGLUC #### [facility] [address] [address] [address] Kerrie Stark Protein [Mass/Vol] 5.7 g/dL Critically low 6.4-8.2 [facility] Comment on above: Performed By: #### P OCGLUC #### [facility] [address] [address] [address] Kerrie Stark Sodium [Moles/Vol] 134 mmol/L Critically low 136-145 [facility] Comment on above: Performed By: #### P OCGLUC #### [facility] [address] [place] [address] Dr. Kerrie Stark Urea nitrogen [Mass/Vol] 23.0 mg/dL Critically high 7.0-18.0 [facility] Comment on above: Performed By: #### P OCGLUC #### [facility] [address] [place] [address] Dr. Kerrie Stark Urea nitrogen/Creatinine [Mass ratio] 19.7 mg/mg Normal [facility] Comment on above: Performed By: #### P OCGLUC #### [facility] [address] [place] [address] Dr. Kerrie Stark CULTURE SPUTUMon 04-06-2022 CULTURE SPUTUM Isolate 1 Grace albicans Light growth of Normal [facility] Comment on above: Performed By: #### S PUTCX #### [facility] [address] [place] [address] Dr. Kerrie Stark CULTURE URINEon 04-06-2022 CULTURE URINE Culture Observations: NO GROWTH. Normal [facility] Comment on above: Performed By: #### U RCX #### [facility] [address] [address] [address] Kerrie Stark ER URINE PROFILEon 3 Bilirubin Ql (U) Negative Normal NEGATIVE [facility] Comment on above: Performed By: #### P OCGLUC #### [facility] [address] [place] [address] Dr. Kerrie Stark Clarity (U) CLEAR Normal CLEAR [facility] Comment on above: Performed By: #### P OCGLUC #### [facility] [address] [address] [address] Kerrie Stark Color (U) YELLOW Normal YELLOW [facility] Comment on above: Performed By: #### P OCGLUC #### [facility] [address] [address] [address] Kerrie Stark ERUAHCornelio A micrscopic examination will be performed if indicated. Normal [facility] Comment on above: Performed By: #### P OCGLUC #### [facility] [address] [address] [address] Kerrie Stark Glucose Ql (U) Negative Normal NEGATIVE [facility] Comment on above: Performed By: #### P OCGLUC #### [facility] [address] [place] [address] Dr. Kerrie Stark Hemoglobin Ql (U) Negative Normal NEGATIVE [facility] Comment on above: Performed By: #### P OCGLUC #### [facility] [address] [address] [address] Kerrie Stark Ketones Ql (U) Negative Normal NEGATIVE [facility] Comment on above: Performed By: #### P OCGLUC #### [facility] [address] [address] [address] Kerrie Stark LEUKOCYTES Negative Normal NEGATIVE [facility] Comment on above: Performed By: #### P OCGLUC #### [facility] [address] [address] [address] Kerrie Stark Nitrite Ql (U) Negative Normal NEGATIVE [facility] Comment on above: Performed By: #### P OCGLUC #### [facility] [address] [address] [address] Kerrie Stark pH (U) 6.0 [pH] Normal 5-9 [facility] Comment on above: Performed By: #### P OCGLUC #### [facility] [address] [place] [address] Dr. Kerrie Stark Protein (U) [Mass/Vol] 30 mg/dL Abnormal NEGAT LITTLE/ TRACE [facility] Comment on above: Performed By: #### P OCGLUC #### [facility] [address] [address] [address] Kerrie Stark SPEC GRAVITY 1.015 Normal 1.005-<=1.025 [facility] Comment on above: Performed By: #### P OCGLUC #### [facility] [address] [address] [address] Kerrie Stark UR MICRO IND INDICATED Normal [facility] Comment on above: Performed By: #### P OCGLUC #### [facility] [address] [address] [address] Kerrie Stark Urobilinogen Qn (U) 0.2 {Ricky'U}/dL Normal 0.2 - 1. 0 [facility] Comment on above: Performed By: #### P OCGLUC #### [facility] [address] [address] [address] Kerrie Stark POINT OF CARE GLUCOSEon 03-22 Glucose [Mass/Vol] 301 mg/dL Critically high [address] [place] [address] Comment on above: Performed By: #### P OCGLUC #### [facility] [address] [address] [address] Kerrie Stark Glucose [Mass/Vol] 272 mg/dL Critically high [address] [place] [address] Comment on above: Performed By: #### P OCGLUC #### [facility] [address] [address] [address] Kerrie Stark Glucose [Mass/Vol] 191 mg/dL Critically high [address] [place] [address] Comment on above: Performed By: #### P OCGLUC #### [facility] [address] [address] [address] Kerrie Stark Glucose [Mass/Vol] 164 mg/dL Critically high [address] [place] [address] Comment on above: Performed By: #### C BC #### [facility] [address] [address] [address] Kerrie Stark Glucose [Mass/Vol] 128 mg/dL Critically high [address] [place] [address] Comment on above: Performed By: #### P OCGLUC #### [facility] [address] [place] [address] Dr. Kerrie Stark URINE MICROSCOPIC ONLYon BACTERIA SMALL Abnormal NONE SEEN [facility] Comment on above: Performed By: #### P OCGLUC #### [facility] [address] [place] [address] Dr. Kerrie Stark Bacteria identified Cx Nom (U) INDICATED Normal [facility] Comment on above: Performed By: #### P OCGLUC #### [facility] [address] [place] [address] Dr. Kerrie Stark CAST SEEN Abnormal NONE SEEN [facility] Comment on above: Performed By: #### P OCGLUC #### [facility] [address] [place] [address] Dr. Kerrie Stark Crystals LM Nom (Urine sed) NONE SEEN Normal NONE SEEN [facility] Comment on above: Performed By: #### P OCGLUC #### [facility] [address] [place] [address] Dr. Kerrie Stark Epithelial cells LM Ql (Urine sed) RARE Normal NONE SEEN /RARE [facility] Comment on above: Performed By: #### P OCGLUC #### [facility] [address] [place] [address] Dr. Kerrie Stark HYALINE CAST RARE Normal [facility] Comment on above: Performed By: #### P OCGLUC #### [facility] [address] [place] [address] Dr. Kerrie Stark MUCOUS TRACE Abnormal NONE SEEN [facility] Comment on above: Performed By: #### P OCGLUC #### [facility] [address] [place] [address] Dr. Kerrie Stark RBC 0-2 Normal 0-2 [facility] Comment on above: Performed By: #### P OCGLUC #### [facility] [address] [place] [address] Dr. Kerrie Stark WBC 0-2 Abnormal NONE SEEN [facility] Comment on above: Performed By: #### P OCGLUC #### [facility] [address] [place] [address] Dr. Kerrie Stark BNPon 04-05-2022 Natriuretic peptide B (Bld) [Mass/Vol] 394.0 pg/mL Normal <=1,800.0 [facility] Comment on above: Performed By: #### C BC #### [facility] [address] [place] [address] Dr. Kerrie Stark CBC W MANUAL DIFFon 04-05-19 ATYPICAL LYMPH # Normal [facility] Comment on above: Performed By: #### P OCGLUC #### [facility] [address] [place] [address] Dr. Kerrie Stark ATYPICAL LYMPH % Normal [facility] Comment on above: Performed By: #### P OCGLUC #### [facility] [address] [place] [address] Dr. Kerrie Stark BAND # Normal 0.0-0.3 [facility] Comment on above: Performed By: #### P OCGLUC #### [facility] [address] [place] [address] Dr. Kerrie Stark BAND % Normal 0-5 [facility] Comment on above: Performed By: #### P OCGLUC #### [facility] [address] [place] [address] Dr. Kerrie Stark BASOM # 0.00 103/ul Normal 0.00-0.10 The [facility] Comment on above: Performed By: #### P OCGLUC #### [facility] [address] [place] [address] Dr. Kerrie Stark BASOM % 0.0 % Critically low 0.2-2.0 [facility] Comment on above: Performed By: #### P OCGLUC #### [facility] [address] [place] [address] Dr. Kerrie Stark BLAST # Normal [facility] Comment on above: Performed By: #### P OCGLUC #### [facility] [address] [place] [address] Dr. Kerrie Stark BLAST % Normal [facility] Comment on above: Performed By: #### P OCGLUC #### [facility] [address] [place] [address] Dr. Kerrie Stark CORRECTED WBC Normal 4.0-11.0 [facility] Comment on above: Performed By: #### P OCGLUC #### [facility] [address] [address] [address] Kerrie Stark EOS # 0.00 103/ul Normal 0.00-0.70 [facility] Comment on above: Performed By: #### P OCGLUC #### [facility] [address] [address] [address] Kerrie Stark EOS% 0.0 % Critically low 0.9-7.0 [facility] Comment on above: Performed By: #### P OCGLUC #### [facility] [address] [address] [address] Kerrie Stark HCT 43.5 % Normal 42.0-54.0 [facility] Comment on above: Performed By: #### P OCGLUC #### [facility] [address] [address] [address] Kerrie Stark HGB 14.7 g/dl Normal 14.0-18.0 [facility] Comment on above: Performed By: #### P OCGLUC #### [facility] [address] [address] [address] Kerrie Stark LYMPHM # 0.78 103/ul Critically low 1.20-3.80 [facility] Comment on above: Performed By: #### P OCGLUC #### [facility] [address] [address] [address] Kerrie Stark LYMPHM% 4.0 % Critically low 20.5-60.0 [facility] Comment on above: Performed By: #### P OCGLUC #### [facility] [address] [address] [address] Kerrie Stark MCH 32.5 pg Normal 25.9-34.0 [facility] Comment on above: Performed By: #### P OCGLUC #### [facility] [address] [address] [address] Kerrie Stark MCHC 33.8 g/dl Normal 29.9-35.2 [facility] Comment on above: Performed By: #### P OCGLUC #### [facility] [address] [address] [address] Kerrie Stark MCV 96.2 fL Critically high 80.0-94.0 [facility] Comment on above: Performed By: #### P OCGLUC #### [facility] [address] [address] [address] Kerrie Stark METAMYELOCYTE # Normal [facility] Comment on above: Performed By: #### P OCGLUC #### [facility] [address] [place] [address] Dr. Kerrie Stark METAMYELOCYTE % Normal [facility] Comment on above: Performed By: #### P OCGLUC #### [facility] [address] [place] [address] Dr. Kerrie Stark MONOM# 0.58 103/ul Normal 0.30-0.80 [facility] Comment on above: Performed By: #### P OCGLUC #### [facility] [address] [address] [address] Kerrie Stark MONOM% 3.0 % Normal 1.7-12.0 [facility] Comment on above: Performed By: #### P OCGLUC #### [facility] [address] [place] [address] Dr. Kerrie Stark MPV 10.1 fL Normal 9.5-13.5 [facility] Comment on above: Performed By: #### P OCGLUC #### [facility] [address] [place] [address] Dr. Kerrie Stark MYELOCYTE # Normal [facility] Comment on above: Performed By: #### P OCGLUC #### [facility] [address] [place] [address] Dr. Kerrie Stark MYELOCYTE % Normal [facility] Comment on above: Performed By: #### P OCGLUC #### [facility] [address] [place] [address] Dr. Kerrie Stark NRBC Normal [facility] Comment on above: Performed By: #### P OCGLUC #### [facility] [address] [address] [address] Kerrie Stark PLT 181 103/ul Normal 150-450 [facility] Comment on above: Performed By: #### P OCGLUC #### [facility] [address] [address] [address] Kerrie Satrk RBC 4.52 106/ul Critically low 4.70-6.10 [facility] Comment on above: Performed By: #### P OCGLUC #### [facility] [address] [place] [address] Dr. Kerrie Stark RDW 12.9 % Normal 11.0-15.0 [facility] Comment on above: Performed By: #### P OCGLUC #### [facility] [address] [place] [address] Dr. Kerrie Stark SEG # 18.14 103/ul Critically high 1.40-6.50 [facility] Comment on above: Performed By: #### P OCGLUC #### [facility] [address] [place] [address] Dr. Kerrie Stark SEG % 93.0 % Critically high 43.0-75.0 [facility] Comment on above: Performed By: #### P OCGLUC #### [facility] [address] [place] [address] Dr. Kerrie Stark WBC 19.5 103/ul Critically high 4.0-11.0 [facility] Comment on above: Performed By: #### P OCGLUC #### [facility] [address] [place] [address] Dr. Kerrie Stark CTA CHEST WO W [...] by: BING ADAMS Date: 2022-04-05 20:31 Normal [facility] CULTURE BLOODon 04-05-2022 Microscopic examination of blood, culture Culture Observations: NO GROWTH AT 5 DAYS. Normal [facility] Comment on above: Performed By: #### C BC #### [facility] [address] [place] [address] Dr. Kerrie Stark Microscopic examination of blood, culture Culture Observations: NO GROWTH AT 5 DAYS. Normal [facility] Comment on above: Performed By: #### B [id number] #### [facility] [address] [place] [address] Dr. Kerrie Stark LACTATE/LACTIC ACIDon 2022 Lactate [Moles/Vol] 2.7 mmol/L Critically high 0.4-1.9 [facility] Comment on above: Performed By: #### P OCGLUC #### [facility] [address] [place] [address] Dr. Kerrie Stark Lactate [Moles/Vol] 3.2 mmol/L Critically high 0.4-1.9 [facility] Comment on above: Performed By: #### D DIM #### [facility] [address] [place] [address] Dr. Kerrie Stark PH VENOUS BLOODon 04-05-2022 PCO2 VENOUS 42.3 mmHg Normal 40.0-52.0 [facility] Comment on above: Performed By: #### P OCGLUC #### [facility] [address] [place] [address] Dr. Kerrie Stark pH VENOUS 7.400 Normal 7.330-7.430 [facility] Comment on above: Performed By: #### P OCGLUC #### [facility] [address] [place] [address] Dr. Kerrie Stark PROF 14(COMP METB)on 023 Albumin [Mass/Vol] 3.0 g/dL Critically low 3.4-5.0 [facility] Comment on above: Performed By: #### C BC #### [facility] [address] [place] [address] Dr. Kerrie Stark Albumin/Globulin [Mass ratio] 0.7 {ratio} Normal [facility] Comment on above: Performed By: #### C BC #### [facility] [address] [place] [address] Dr. Kerrie Stark ALP [Catalytic activity/Vol] 68 U/L Normal 46-116 [facility] Comment on above: Performed By: #### C BC #### [facility] [address] [place] [address] Dr. Kerrie Stark ALT [Catalytic activity/Vol] 29 U/L Normal 16-63 [facility] Comment on above: Performed By: #### C BC #### [facility] [address] [place] [address] Dr. Kerrie Stark Anion gap [Moles/Vol] 12.3 mmol/L Normal [facility] Comment on above: Performed By: #### C BC #### [facility] [address] [place] [address] Dr. Kerrie Stark AST [Catalytic activity/Vol] 19 U/L Normal 15-37 [facility] Comment on above: Performed By: #### C BC #### [facility] [address] [place] [address] Dr. Kerrie Stark Bilirubin [Mass/Vol] 0.7 mg/dL Normal 0.2-1.0 [facility] Comment on above: Performed By: #### C BC #### [facility] [address] [address] [address] Kerrie Stark Calcium [Mass/Vol] 10.0 mg/dL Normal 8.5-10.1 [facility] Comment on above: Performed By: #### C BC #### [facility] [address] [place] [address] Dr. Kerrie Stark Chloride [Moles/Vol] 96 mmol/L Critically low 98-107 [facility] Comment on above: Performed By: #### C BC #### [facility] [address] [place] [address] Dr. Kerrie Stark CO2 [Moles/Vol] 27.7 mmol/L Normal 21.0-32.0 [facility] Comment on above: Performed By: #### C BC #### [facility] [address] [place] [address] Dr. Kerrie Stark Creatinine [Mass/Vol] 1.18 mg/dL Normal 0.70-1.30 [facility] Comment on above: Performed By: #### C BC #### [facility] [address] [place] [address] Dr. Kerrie Stark EGFR-AF MALIAN >60 Normal >=60 [facility] Comment on above: Performed By: #### C BC #### [facility] [address] [address] [address] Kerrie Stark EGFR-NON AF MALIAN 59 mL/min/1.73m2 Critically low >=60 [facility] Comment on above: Performed By: #### C BC #### [facility] [address] [place] [address] Dr. Kerrie Stark Globulin (S) [Mass/Vol] 4.5 g/dL Normal [facility] Comment on above: Performed By: #### C BC #### [facility] [address] [address] [address] Kerrie Stark Glucose [Mass/Vol] 189 mg/dL Critically high 74-106 [facility] Comment on above: Performed By: #### C BC #### [facility] [address] [address] [address] Kerrie Stark Potassium [Moles/Vol] 4.0 mmol/L Normal 3.5-5.1 [facility] Comment on above: Performed By: #### C BC #### [facility] [address] [address] [address] Kerrie Stark Protein [Mass/Vol] 7.5 g/dL Normal 6.4-8.2 [facility] Comment on above: Performed By: #### C BC #### [facility] [address] [address] [address] Kerrie Stark Sodium [Moles/Vol] 132 mmol/L Critically low 136-145 [facility] Comment on above: Performed By: #### C BC #### [facility] [address] [address] [address] Kerrie Stark Urea nitrogen [Mass/Vol] 34.0 mg/dL Critically high 7.0-18.0 [facility] Comment on above: Performed By: #### C BC #### [facility] [address] [address] [address] Kerrie Stark Urea nitrogen/Creatinine [Mass ratio] 28.8 mg/mg Normal [facility] Comment on above: Performed By: #### C BC #### [facility] [address] [address] [address] Kerrie Stark PROTIMEon 04-05-2022 INR Coag (PPP) [Relative time] 1.00 {INR} Normal [facility] Comment on above: Performed By: #### P OCGLUC #### [facility] [address] [address] [address] Kerrie Stark INR GUIDELINES SEE BELOW Normal [facility] Comment on above: Result Comment: TOBY RED INR: 2.0 - 3.0 CONDITIONS NOT LISTED BELOW 2.5 - 3.5 FOR PROSTHETIC HEART VALVE REPLACEMENT 2.5 - 3.5 RECURRENT THROMBOSIS Performed By: #### P OCGLUC #### [facility] [address] [place] [address] Dr. Kerrie Stark PT Coag (PPP) [Time] 10.6 s Normal 9.0-11.6 [facility] Comment on above: Performed By: #### P OCGLUC #### [facility] [address] [place] [address] Dr. Kerrie Stark PTTon 04-05-2022 aPTT Coag (Bld) [Time] 28.5 s Normal 22.3-36.2 [facility] Comment on above: Performed By: #### P OCGLUC #### [facility] [address] [place] [address] Dr. Kerrie Stark RESPIRATORY PANEL PLUSon Adenovirus Not detected Normal NOT DETECTED [facility] Comment on above: Performed By: #### L ACT #### [facility] [address] [place] [address] Dr. Kerrie Nayak. Parapertusis Not detected Normal NOT DETECTED [facility] Comment on above: Performed By: #### L ACT #### [facility] [address] [place] [address] Dr. Kerrie Velázquez Pertussis Not detected Normal NOT DETECTED [facility] Comment on above: Performed By: #### L ACT #### [facility] [address] [place] [address] Dr. Kerrie Stark Chlamydia Pneumoniae Not detected Normal NOT DETECTED [facility] Comment on above: Performed By: #### L ACT #### [facility] [address] [place] [address] Dr. Kerrie Stark Coronavirus 229E Not detected Normal NOT DETECTED [facility] Comment on above: Performed By: #### L ACT #### [facility] [address] [place] [address] Dr. Kerrie Stark Coronavirus HKU1 Not detected Normal NOT DETECTED [facility] Comment on above: Performed By: #### L ACT #### [facility] [address] [place] [address] Dr. Kerrie Stark Coronavirus NL63 Not detected Normal NOT DETECTED [facility] Comment on above: Performed By: #### L ACT #### [facility] [address] [address] [address] Kerrie Stark Coronavirus OC43 Not detected Normal NOT DETECTED [facility] Comment on above: Performed By: #### L ACT #### [facility] [address] [place] [address] Dr. Kerrie Stark Influenza A H1 Not detected Normal NOT DETECTED [facility] Comment on above: Performed By: #### L ACT #### [facility] [address] [place] [address] Dr. Kerrie Stark Influenza A H1 2009 Not detected Normal NOT DETECTED [facility] Comment on above: Performed By: #### L ACT #### [facility] [address] [place] [address] Dr. Kerrie Stark Influenza A H3 Not detected Normal NOT DETECTED [facility] Comment on above: Performed By: #### L ACT #### [facility] [address] [place] [address] Dr. Kerrie Stark Influenza B Not detected Normal NOT DETECTED [facility] Comment on above: Performed By: #### L ACT #### [facility] [address] [place] [address] Dr. Kerrie Stark Metapneumovirus Not detected Normal NOT DETECTED [facility] Comment on above: Performed By: #### L ACT #### [facility] [address] [address] [address] Kerrie Stark Mycoplas. Pneumoniae Not detected Normal NOT DETECTED [facility] Comment on above: Performed By: #### L ACT #### [facility] [address] [place] [address] Dr. Kerrie Stark Parainfluenza 1 Not detected Normal NOT DETECTED [facility] Comment on above: Performed By: #### L ACT #### [facility] [address] [place] [address] Dr. Kerrie Stark Parainfluenza 2 Not detected Normal NOT DETECTED [facility] Comment on above: Performed By: #### L ACT #### [facility] [address] [place] [address] Dr. Kerrie Stark Parainfluenza 3 Not detected Normal NOT DETECTED [facility] Comment on above: Performed By: #### L ACT #### [facility] [address] [place] [address] Dr. Kerrie Stark Parainfluenza 4 Not detected Normal NOT DETECTED [facility] Comment on above: Performed By: #### L ACT #### [facility] [address] [place] [address] Dr. Kerrie Stark Rhino/Enterovirus Not detected Normal NOT DETECTED [facility] Comment on above: Performed By: #### L ACT #### [facility] [address] [place] [address] Dr. Kerrie Stark RP2 Header 1 RESPIRATORY PANEL: VIRUSES Normal [facility] Comment on above: Performed By: #### L ACT #### [facility] [address] [place] [address] Dr. Kerrie Stark RP2 Header 2 RESPIRATORY PANEL: BACTERIA Normal [facility] Comment on above: Performed By: #### L ACT #### [facility] [address] [place] [address] Dr. Kerrie Stark RSV Not detected Normal NOT DETECTED [facility] Comment on above: Performed By: #### L ACT #### [facility] [address] [place] [address] Dr. Kerrie Stark SARS-CoV-2 (COVID-19) RNA QUE+probe Ql (Unsp spec) Detected Abnormal NOT DETECTED [facility] Comment on above: Performed By: #### L ACT #### [facility] [address] [place] [address] Dr. Kerrie Stark TROPONIN, HIGH SENSITIVITYon 04-05-2022 HSTROP 8.4 pg/mL Normal 4.0-76.1 [facility] Comment on above: Result Comment: CUT- OFF POINTS HAVE BEEN ESTABLISHED BASED ON THE FOURTH UNIVERSAL DEFINITIONS OF MYOCARDIAL INFARCTION. THE UPPER REFERENCE LIMIT (URL) OF TROPONIN, DEFINED THE 99TH PERCENTILE OF cTnI DISTRIBUTION IN A REFERENCE POPULATION, HAS BEEN CONFIRMED THE DECISION THRESHOLD FOR NE DIAGNOSIS. Performed By: #### C #### [facility] [address] [address] [address] 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 [x] Verbal consent obtained [] Implied [...] Completed by: Horace Parra, DO Normal [facility] CBC W MANUAL DIFFon 03-29-19 23 ATYPICAL LYMPH # Normal [facility] Comment on above: Performed By: #### L ACT #### [facility] [address] [place] [address] Dr. Kerrie Stark ATYPICAL LYMPH % Normal [facility] Comment on above: Performed By: #### L ACT #### [facility] [address] [place] [address] Dr. Kerrie Stark BAND # 0.0 103/ul Normal 0.0-0.3 [facility] Comment on above: Performed By: #### L ACT #### [facility] [address] [place] [address] Dr. Kerrie Stark BAND % 0 % Normal 0-5 [facility] Comment on above: Performed By: #### L ACT #### [facility] [address] [place] [address] Dr. Kerrie Stark BASOM # 0.00 103/ul Normal 0.00-0.10 [facility] Comment on above: Performed By: #### L ACT #### [facility] [address] [place] [address] Dr. Kerrie Stark BASOM % 0.0 % Critically low 0.2-2.0 [facility] Comment on above: Performed By: #### L ACT #### [facility] [address] [place] [address] Dr. Kerrie Stark BLAST # Normal [facility] Comment on above: Performed By: #### L ACT #### [facility] [address] [place] [address] Dr. Kerrie Stark BLAST % Normal [facility] Comment on above: Performed By: #### L ACT #### [facility] [address] [place] [address] Dr. Kerrie Stark CORRECTED WBC Normal 4.0-11.0 [facility] Comment on above: Performed By: #### L ACT #### [facility] [address] [address] [address] Kerrie Stark EOS # 0.00 103/ul Normal 0.00-0.70 [facility] Comment on above: Performed By: #### L ACT #### [facility] [address] [address] [address] Kerrie Stark EOS% 0.0 % Critically low 0.9-7.0 [facility] Comment on above: Performed By: #### L ACT #### [facility] [address] [address] [address] Kerrie Stark HCT 37.3 % Critically low 42.0-54.0 [facility] Comment on above: Performed By: #### L ACT #### [facility] [address] [address] [address] Kerrie Stark HGB 12.0 g/dl Critically low 14.0-18.0 [facility] Comment on above: Performed By: #### L ACT #### [facility] [address] [address] [address] Kerrie Stark LYMPHM # 0.00 103/ul Critically low 1.20-3.80 [facility] Comment on above: Performed By: #### L ACT #### [facility] [address] [address] [address] Kerrie Stark LYMPHM% 0.0 % Critically low 20.5-60.0 [facility] Comment on above: Performed By: #### L ACT #### [facility] [address] [address] [address] Kerrie Stark MCH 33.1 pg Normal 25.9-34.0 [facility] Comment on above: Performed By: #### L ACT #### [facility] [address] [address] [address] Kerrie Stark MCHC 32.2 g/dl Normal 29.9-35.2 [facility] Comment on above: Performed By: #### L ACT #### [facility] [address] [address] [address] Kerrie Stark MCV 103.0 fL Critically high 80.0-94.0 [facility] Comment on above: Performed By: #### L ACT #### [facility] [address] [place] [address] Dr. Kerrie Stark METAMYELOCYTE # Normal [facility] Comment on above: Performed By: #### L ACT #### [facility] [address] [place] [address] Dr. Kerrie Stark METAMYELOCYTE % Normal [facility] Comment on above: Performed By: #### L ACT #### [facility] [address] [place] [address] Dr. Kerrie Stark MONOM# 0.69 103/ul Normal 0.30-0.80 [facility] Comment on above: Performed By: #### L ACT #### [facility] [address] [place] [address] Dr. Kerrie Stark MONOM% 5.0 % Normal 1.7-12.0 [facility] Comment on above: Performed By: #### L ACT #### [facility] [address] [place] [address] Dr. Kerrie Stark MPV 10.6 fL Normal 9.5-13.5 [facility] Comment on above: Performed By: #### L ACT #### [facility] [address] [place] [address] Dr. Kerrie Stark MYELOCYTE # Normal [facility] Comment on above: Performed By: #### L ACT #### [facility] [address] [place] [address] Dr. Kerrie Stark MYELOCYTE % Normal [facility] Comment on above: Performed By: #### L ACT #### [facility] [address] [place] [address] Dr. Kerrie Stark NRBC Normal [facility] Comment on above: Performed By: #### L ACT #### [facility] [address] [place] [address] Dr. Kerrie Stark PLT 158 103/ul Normal 150-450 [facility] Comment on above: Performed By: #### L ACT #### [facility] [address] [address] [address] Kerrie Stark RBC 3.62 106/ul Critically low 4.70-6.10 [facility] Comment on above: Performed By: #### L ACT #### [facility] [address] [address] [address] Kerrie Stark RDW 13.2 % Normal 11.0-15.0 [facility] Comment on above: Performed By: #### L ACT #### [facility] [address] [address] [address] Kerrie tSark SEG # 13.02 103/ul Critically high 1.40-6.50 [facility] Comment on above: Performed By: #### L ACT #### [facility] [address] [address] [address] Kerrie Stark SEG % 95.0 % Critically high 43.0-75.0 [facility] Comment on above: Performed By: #### L ACT #### [facility] [address] [address] [address] Kerrie Stark WBC 13.7 103/ul Critically high 4.0-11.0 [facility] Comment on above: Performed By: #### L ACT #### [facility] [address] [address] [address] Kerrie Stark POINT OF CARE GLUCOSEon Glucose [Mass/Vol] 300 mg/dL Critically high 74-106 [facility] Comment on above: Performed By: #### C BC #### [facility] [address] [address] [address] Kerrie Stark PROF CHEM 8 (BAS METB)on Anion gap [Moles/Vol] 12.5 mmol/L Normal [facility] Comment on above: Performed By: #### D DIM #### [facility] [address] [address] [address] Kerrie Stark Calcium [Mass/Vol] 8.9 mg/dL Normal 8.5-10.1 [facility] Comment on above: Performed By: #### D DIM #### [facility] [address] [address] [address] Kerrie Stark Chloride [Moles/Vol] 103 mmol/L Normal 98-107 [facility] Comment on above: Performed By: #### D DIM #### [facility] [address] [address] Dr. Kerrie Stark CO2 [Moles/Vol] 25.4 mmol/L Normal 21.0-32.0 [facility] Comment on above: Performed By: #### D DIM #### [facility] [address] [address] [address] Kerrie Stark Creatinine [Mass/Vol] 1.05 mg/dL Normal 0.70-1.30 [facility] Comment on above: Performed By: #### D DIM #### [facility] [address] [place] [address] Dr. Kerrie Stark EGFR-AF MALIAN >60 Normal >=60 [facility] Comment on above: Performed By: #### D DIM #### [facility] [address] [address] [address] Kerrie Stark EGFR-NON AF MALIAN >60 Normal >=60 [facility] Comment on above: Performed By: #### D DIM #### [facility] [address] [address] [address] Kerrie Stark Glucose [Mass/Vol] 243 mg/dL Critically high 74-106 [facility] Comment on above: Performed By: #### D DIM #### [facility] [address] [place] [address] Dr. Kerrie Stark Potassium [Moles/Vol] 3.9 mmol/L Normal 3.5-5.1 [facility] Comment on above: Performed By: #### D DIM #### [facility] [address] [place] [address] Dr. Kerrie Stark Sodium [Moles/Vol] 137 mmol/L Normal 136-145 [facility] Comment on above: Performed By: #### D DIM #### [facility] [address] [place] [address] Dr. Kerrie Stark Urea nitrogen [Mass/Vol] 22.0 mg/dL Critically high 7.0-18.0 [facility] Comment on above: Performed By: #### D DIM #### [facility] [address] [place] [address] Dr. Kerrie Stark Urea nitrogen/Creatinine [Mass ratio] 21.0 mg/mg Normal [facility] Comment on above: Performed By: #### D DIM #### [facility] [address] [place] [address] Dr. Kerrie Stark CARDIAC CONSTANTINE 3-6on 3 CK [Catalytic activity/Vol] 91 U/L Normal 39-308 [facility] Comment on above: Performed By: #### C MREP #### [facility] [address] [place] [address] Dr. Kerrie Stark CK.MB [Mass/Vol] 0.35 ng/mL Normal <=3.60 [facility] Comment on above: Performed By: #### C MREP #### [facility] [address] [place] [address] Dr. Kerrie Stark HSTROP 20.8 pg/mL Normal 4.0-76.1 [facility] Comment on above: Result Comment: CUT- OFF POINTS HAVE BEEN ESTABLISHED BASED ON THE FOURTH UNIVERSAL DEFINITIONS OF MYOCARDIAL INFARCTION. THE UPPER REFERENCE LIMIT (URL) OF TROPONIN, DEFINED THE 99TH PERCENTILE OF cTnI DISTRIBUTION IN A REFERENCE POPULATION, HAS BEEN CONFIRMED THE DECISION THRESHOLD FOR NE DIAGNOSIS. Performed By: #### C MREP #### [facility] [address] [place] [address] Dr. Kerrie Stark CARDIAC CONSTANTINE ADMITon 023 CK [Catalytic activity/Vol] 56 U/L Normal 39-308 [facility] Comment on above: Performed By: #### D DIM #### [facility] [address] [place] [address] Dr. Kerrie Stark CK.MB [Mass/Vol] 0.36 ng/mL Normal <=3.60 [facility] Comment on above: Performed By: #### D DIM #### [facility] [address] [place] [address] Dr. Kerrie Stark HSTROP 12.7 pg/mL Normal 4.0-76.1 [facility] Comment on above: Result Comment: CUT- OFF POINTS HAVE BEEN ESTABLISHED BASED ON THE FOURTH UNIVERSAL DEFINITIONS OF MYOCARDIAL INFARCTION. THE UPPER REFERENCE LIMIT (URL) OF TROPONIN, DEFINED THE 99TH PERCENTILE OF cTnI DISTRIBUTION IN A REFERENCE POPULATION, HAS BEEN CONFIRMED THE DECISION THRESHOLD FOR NE DIAGNOSIS. Performed By: #### D DIM #### [facility] [address] [place] [address] Dr. Kerrie Stark KIKE 128 ng/mL Critically high 16-96 [facility] Comment on above: Performed By: #### D DIM #### [facility] [address] [place] [address] Dr. Kerrie Stark CBC AUTO DIFFon 03-28-2022 BASO # 0.0 103/ul Normal 0.0-0.1 [facility] Comment on above: Performed By: #### C BC #### [facility] [address] [place] [address] Dr. Kerrie Stark Basophils/100 WBC (Bld) 0.2 % Normal 0.2-2.0 [facility] Comment on above: Performed By: #### C BC #### [facility] [address] [place] [address] Dr. Kerrie Stark EO # 0.0 103/ul Normal 0.0-0.7 [facility] Comment on above: Performed By: #### C BC #### [facility] [address] [place] [address] Dr. Kerrie Stark Eosinophils/100 WBC (Bld) 0.1 % Critically low 0.9-7.0 [facility] Comment on above: Performed By: #### C BC #### [facility] [address] [place] [address] Dr. Kerrie Stark Erythrocyte distribution width (RBC) [Ratio] 13.3 % Normal 11.0-15.0 [facility] Comment on above: Performed By: #### C BC #### [facility] [address] [place] [address] Dr. Kerrie Stark Hematocrit (Bld) [Volume fraction] 41.9 % Critically low 42.0-54.0 [facility] Comment on above: Performed By: #### C BC #### [facility] [address] [place] [address] Dr. Kerrie Stark Hemoglobin (Bld) [Mass/Vol] 13.3 g/dL Critically low 14.0-18.0 [facility] Comment on above: Performed By: #### C BC #### [facility] [address] [place] [address] Dr. Kerrie Stark IG # 0.04 10e3/ul Critically high 0.00-0.03 [facility] Comment on above: Performed By: #### C BC #### [facility] [address] [place] [address] Dr. Kerrie Stark IG % 0.4 % Normal 0.0-0.5 [facility] Comment on above: Performed By: #### C BC #### [facility] [address] [place] [address] Dr. Kerrie Stark LYMPH # 0.5 103/ul Critically low 1.2-3.8 [facility] Comment on above: Performed By: #### C BC #### [facility] [address] [place] [address] Dr. Kerrie Stark Lymphocytes/100 WBC (Bld) 5.1 % Critically low 20.5-60.0 [facility] Comment on above: Performed By: #### C BC #### [facility] [address] [place] [address] Dr. Kerrie Stark MANUAL DIFF REQ NO Normal [facility] Comment on above: Performed By: #### C BC #### [facility] [address] [place] [address] Dr. Kerrie Stark MCH (RBC) [Entitic mass] 33.2 pg Normal 25.9-34.0 [facility] Comment on above: Performed By: #### C BC #### [facility] [address] [place] [address] Dr. Kerrie Stark MCHC (RBC) [Mass/Vol] 31.7 g/dL Normal 29.9-35.2 [facility] Comment on above: Performed By: #### C BC #### [facility] [address] [address] [address] Kerrie Stark MCV (RBC) [Entitic vol] 104.5 fL Critically high 80.0-94.0 [facility] Comment on above: Performed By: #### C BC #### [facility] [address] [address] [address] Kerrie Stark MONO # 1.1 103/ul Critically high 0.3-0.8 [facility] Comment on above: Performed By: #### C BC #### [facility] [address] [place] [address] Dr. Kerrie Stark Monocytes/100 WBC (Bld) 10.9 % Normal 1.7-12.0 [facility] Comment on above: Performed By: #### C BC #### [facility] [address] [place] [address] Dr. Kerrie Stark NEUT # 8.3 103/ul Critically high 1.4-6.5 [facility] Comment on above: Performed By: #### C BC #### [facility] [address] [place] [address] Dr. Kerrie Stark Neutrophils/100 WBC (Bld) 83.3 % Critically high 43.0-75.0 [facility] Comment on above: Performed By: #### C BC #### [facility] [address] [place] [address] Dr. Kerrie Stark Platelet mean volume (Bld) [Entitic vol] 10.8 fL Normal 9.5-13.5 [facility] Comment on above: Performed By: #### C BC #### [facility] [address] [place] [address] Dr. Kerrie Stark PLT 145 103/ul Critically low 150-450 [facility] Comment on above: Performed By: #### C BC #### [facility] [address] [place] [address] Dr. Kerrie Stark RBC 4.01 106/ul Critically low 4.70-6.10 [facility] Comment on above: Performed By: #### C BC #### [facility] [address] [place], [place] [address] Dr. Kerrie Stark WBC 10.0 103/ul Normal 4.0-11.0 [facility] Comment on above: Performed By: #### C BC #### [facility] [address] [place], [place] [address] Dr. Kerrie Stark CTA CHEST WO W [...] FAROOQ HARDEN Date: 2022-03-28 06:03 Normal [facility] SARS-CoV-2 (COVID-19) RNA QUE+probe Ql (Unsp spec) Detected Abnormal NOT DETECTED [facility] Comment on above: Result Comment: This test is not yet approved or cleared by the [place] FDA. When there are no FDA-approved or cleared tests available, and other criteria are met, FDA can make tests available under an emergency access mechanism called an Emergency Use Authorization (EUA). The EUA for this test is supported by the Medication Reconciliation Technician of Health and Human Service's declaration that [...] used). Performed By: #### C BC #### [facility] [address] [place] [address] Dr. Kerrie Stark D-DIMERon 03-28-2022 D-DIMER 0.71 mg/L FEU Critically high <=0.59 [facility] Comment on above: Performed By: #### D DIM #### [facility] [address] [place] [address] Dr. Kerrie Stark D-DIMER COMMENTS SEE BELOW Normal [facility] Comment on above: Result Comment: Incr eases [...] hospitalization. Performed By: #### D DIM #### [facility] [address] [place] [address] Dr. Kerrie Stark ER URINE PROFILEon 3 Bilirubin Ql (U) Negative Normal NEGATIVE [facility] Comment on above: Performed By: #### P OCGLUC #### [facility] [address] [place] [address] Dr. Kerrie Stark Clarity (U) CLEAR Normal CLEAR [facility] Comment on above: Performed By: #### P OCGLUC #### [facility] [address] [address] [address] Kerrie Stark Color (U) YELLOW Normal YELLOW [facility] Comment on above: Performed By: #### P OCGLUC #### [facility] [address] [place] [address] Dr. Kerrie Stark ERUAHD A micrscopic examination will be performed if indicated. Normal [facility] Comment on above: Performed By: #### P OCGLUC #### [facility] [address] [address] [address] Kerrie Stark Glucose Ql (U) Negative Normal NEGATIVE [facility] Comment on above: Performed By: #### P OCGLUC #### [facility] [address] [address] [address] Kerrie Stark Hemoglobin Ql (U) Negative Normal NEGATIVE [facility] Comment on above: Performed By: #### P OCGLUC #### [facility] [address] [place] [address] Dr. Kerrie Stark Ketones Ql (U) TRACE Abnormal NEGATIVE [facility] Comment on above: Performed By: #### P OCGLUC #### [facility] [address] [address] [address] Kerrie Stark LEUKOCYTES Negative Normal NEGATIVE [facility] Comment on above: Performed By: #### P OCGLUC #### [facility] [address] [place] [address] Dr. Kerrie Stark Nitrite Ql (U) Negative Normal NEGATIVE [facility] Comment on above: Performed By: #### P OCGLUC #### [facility] [address] [address] [address] Kerrie Stark pH (U) 5.5 [pH] Normal 5-9 [facility] Comment on above: Performed By: #### P OCGLUC #### [facility] [address] [place] [address] Dr. Kerrie Stark Protein (U) [Mass/Vol] 30 mg/dL Abnormal NEGAT LITTLE/ TRACE [facility] Comment on above: Performed By: #### P OCGLUC #### [facility] [address] [place] [address] Dr. Kerrie Stark SPEC GRAVITY 1.025 Normal 1.005-<=1.025 [facility] Comment on above: Performed By: #### P OCGLUC #### [facility] [address] [place] [address] Dr. Kerrie Stark UR MICRO IND NOT INDICATED Normal [facility] Comment on above: Performed By: #### P OCGLUC #### [facility] [address] [place] [address] Dr. Kerrie Stark Urobilinogen Qn (U) 1.0 {Ricky'U}/dL Normal 0.2 - 1. 0 [facility] Comment on above: Performed By: #### P OCGLUC #### [facility] [address] [place] [address] Dr. Kerrie Stark INFLUENZA A AND B AGon 03-28 [facility] SEE BELOW Normal [facility] Comment on above: Result Comment: Nega tive for Flu A protein angiten. Infection due to Flu A cannot be ruled out. Flu A angiten in the sample may be below the detection limit of the test. Performed By: #### L ACT #### [facility] [address] [place] [address] Dr. Kerrie Stark INFLUBNEGH SEE BELOW Normal [facility] Comment on above: Result Comment: Nega tive for Flu B protein antigen. Infection due to Flu B cannot be ruled out. Flu B antigen in the sample may be below the detection limit of the test. Performed By: #### L ACT #### [facility] [address] [place] [address] Dr. Kerrie Stark INFLUENZA A AG Negative Normal NEGATIVE SEE COMMENT [facility] Comment on above: Performed By: #### L ACT #### [facility] [address] [place] [address] Dr. Kerrie Stark INFLUENZA B AG Negative Normal NEGATIVE SEE COMMENT [facility] Comment on above: Performed By: #### L ACT #### [facility] [address] [place], [place] [address] Dr. Kerrie Stark POINT OF CARE GLUCOSEon Glucose [Mass/Vol] 251 mg/dL Critically high 74-106 [facility] Comment on above: Performed By: #### C BC #### [facility] [address] [address] [address] Kerrie Stark Glucose [Mass/Vol] 244 mg/dL Critically high 74-106 [facility] Comment on above: Performed By: #### B LDCX1 #### [facility] [address] [address] [address] Kerrie Stark Glucose [Mass/Vol] 398 mg/dL Critically high 74-106 [facility] Comment on above: Performed By: #### P OCGLUC #### [facility] [address] [place] [address] Dr. Kerrie Stark PROF CHEM 8 (BAS METB)on Anion gap [Moles/Vol] 17.2 mmol/L Normal [facility] Comment on above: Performed By: #### D DIM #### [facility] [address] [place] [address] Dr. Kerrie Stark Calcium [Mass/Vol] 9.0 mg/dL Normal 8.5-10.1 [facility] Comment on above: Performed By: #### D DIM #### [facility] [address] [place] [address] Dr. Kerrie Stark Chloride [Moles/Vol] 96 mmol/L Critically low 98-107 [facility] Comment on above: Performed By: #### D DIM #### [facility] [address] [place] [address] Dr. Kerrie Stark CO2 [Moles/Vol] 23.6 mmol/L Normal 21.0-32.0 [facility] Comment on above: Performed By: #### D DIM #### [facility] [address] [place] [address] Dr. Kerrie Stark Creatinine [Mass/Vol] 1.41 mg/dL Critically high 0.70-1.30 [facility] Comment on above: Performed By: #### D DIM #### [facility] [address] [address] [address] Kerrie Stark EGFR-AF MALIAN 58 mL/min/1.73m2 Critically low >=60 [facility] Comment on above: Performed By: #### D DIM #### [facility] [address] [address] [address] Kerrie Stark EGFR-NON AF MALIAN 48 mL/min/1.73m2 Critically low >=60 [facility] Comment on above: Performed By: #### D DIM #### [facility] [address] [address] [address] Kerrie Stark Glucose [Mass/Vol] 151 mg/dL Critically high 74-106 [facility] Comment on above: Performed By: #### D DIM #### [facility] [address] [address] [address] Kerrie Stark Potassium [Moles/Vol] 3.8 mmol/L Normal 3.5-5.1 [facility] Comment on above: Performed By: #### D DIM #### [facility] [address] [address] [address] Kerrie Stark Sodium [Moles/Vol] 133 mmol/L Critically low 136-145 [facility] Comment on above: Performed By: #### D DIM #### [facility] [address] [address] [address] Kerrie Stark Urea nitrogen [Mass/Vol] 20.0 mg/dL Critically high 7.0-18.0 [facility] Comment on above: Performed By: #### D DIM #### [facility] [address] [address] [address] Kerrie Stark Urea nitrogen/Creatinine [Mass ratio] 14.2 mg/mg Normal [facility] Comment on above: Performed By: #### D DIM #### [facility] [address] [address] [address] Kerrie Stark XR CHEST 2 Von [...] by: PONCHO ROCHA Date: 2022-03-28 01:38 Normal [facility] Auth for Release of Medical Recordson 03-09-2022 Auth for Release of Medical Records [id number] Normal [facility] Cult,Urineon 03-02-2022 Cult,Urine Specimen Description .CLEAN CATCH URINE Culture NO SIGNIFICANT GROWTH Report Status FINAL 03/02/2022 Normal [facility] Comment on above: Performed By: #### U RC #### [address] [address] [employer] Scout: Sandip Smith MD [facility] [address] [place] [address] [place] [address] [employer] Scout: Ulisses Gaines MD Urinalysis w/ Microon 2022 Bacteria TRACE Abnormal NONE [facility] Comment on above: Performed By: #### U AMIC #### [facility] [address] [place] [address] [place] [address] [employer]: Ulisses Gaines MD Bilirubin, SemiQt,Ur Negative Normal [facility] Comment on above: Performed By: #### U AMIC #### [facility] [address] [place] [address] [place] [address] [employer]: Ulisses Gaines MD Blood, Urine Negative Normal NEG [facility] Comment on above: Performed By: #### U AMIC #### [facility] [address] [place] [address] [place] [address] [employer]: Ulisses Gaines MD Clarity (U) Clear Normal CLEAR [facility] Comment on above: Performed By: #### U AMIC #### [facility] [address] [place], [place] [id number] [employer]: Ulisses Gaines MD Color (U) Yellow Normal YEL [facility] Comment on above: Performed By: #### U AMIC #### [facility] [address] [place], [place] [id number] [employer]: Ulisses Gaines MD Epithelial cells LM Ql (Urine sed) 0 TO 2 Normal 0-5 [facility] Comment on above: Performed By: #### U AMIC #### [facility] [address] [place] [address] Dr. [place], [place] [id number] [employer]: Ulisses Gaines MD Glucose Ql (U) Negative Normal [facility] Comment on above: Performed By: #### U AMIC #### [facility] [address] [place] [address] Dr. [place], [place] [id number] [employer]: Ulisses Gaines MD Ketones Ql (U) Negative Normal [facility] Comment on above: Performed By: #### U AMIC #### [facility] [address] [place] [address] Dr. [place], [place] [id number] [employer]: Ulisses Gaines MD Leukocyte esterase Test strip Ql (U) Negative Normal NEG [facility] Comment on above: Performed By: #### U AMIC #### [facility] [address] [place] [address] Dr. [place], [place] [id number] [employer]: Ulisses Gaines MD Nitrite,Ur Negative Normal NEG [facility] Comment on above: Performed By: #### U AMIC #### [facility] [address] [place] [address] Dr. [place], [place] [id number] [employer]: Ulisses Ganies MD PH,Ur 6.0 Normal 5.0-9.0 [facility] Comment on above: Performed By: #### U AMIC #### [facility] [address] [place], [place] [id number] [employer]: Ulisses Gaines MD Protein Ql (U) Negative Normal [facility] Comment on above: Performed By: #### U AMIC #### [facility] [address] [place], [facility] [employer]: Ulisses Gaines MD Spec. [place],Ur 1.010 Normal 1.010-1.020 [facility] Comment on above: Performed By: #### U AMIC #### [facility] [address] [place] [address] Dr. [place], [place] [id number] [employer]: Ulisses Gaines MD Urine RBC's None Normal 0-2 [facility] Comment on above: Performed By: #### U AMIC #### [facility] [address] [place], [facility] [employer]: Ulisses Gaines MD Urine WBC's None Normal 0-5 [facility] Comment on above: Performed By: #### U AMIC #### [facility] [address] [place] [address] Dr. [place], [facility] [employer]: Ulisses Gaines MD Urobilinogen,Ur Normal Normal NORM [facility] Comment on above: Performed By: #### U AMIC #### [facility] [address] [place], [facility] [employer]: Ulisses Gaines MD Urinalysis with Microscopico n 03-01-2022 Bacteria, UA TRACE Abnormal None [facility] Bilirubin Urine Negative NEGATIVE [facility] Color, UA Yellow Yellow [facility] Epithelial Cells UA 0 TO 2 [facility] Glucose, Ur Negative NEGATIVE [facility] Interpretation and review of laboratory results Abnormal [facility] Ketones Ql (U) Negative NEGATIVE [facility] Leukocyte esterase Test strip Ql (U) Negative NEGATIVE [facility] Nitrite, Urine Negative NEGATIVE [facility] pH, UA 6.0 5.0 - 9.0 [facility] Protein, UA Negative NEGATIVE [facility] RBC, UA None [facility] Specific [place], UA 1.010 1.010 - 1.020 [facility] Turbidity UA Clear Clear [facility] Urine Hgb Negative NEGATIVE [facility] Urobilinogen, Urine Normal Normal [facility] WBC, UA None [facility] GLYCOHEMOGLOBIN A1Con 2021 ADA RECOMMENDATION SEE BELOW Normal [facility] Comment on above: Result Comment: ADA RECOMMENDED LIMIT 4.0 - 6.0 ADA THERAPEUTIC TARGET < 7.0 ACTION SUGGESTED > 7.0 Performed By: #### P OCGLUC #### [facility] [address] [address] [address] Kerrie Stark Glucose [Mass/Vol] 146 mg/dL Normal [facility] Comment on above: Performed By: #### P OCGLUC #### [facility] [address] [address] [address] Kerrie Stark HbA1c (Bld) [Mass fraction] 6.7 % Critically high 4.5-6.2 [facility] Comment on above: Performed By: #### P OCGLUC #### [facility] [address] [address] [address] Kerrie Stark LIPID PROFILEon 02-01-2022 CHOL-HDL RATIO NORM SEE BELOW Normal [facility] Comment on above: Result Comment: 3.3 - 4.4 LOW RISK 4.4 - 7.1 AVERAGE RISK 7.1 - 11.0 MODERATE RISK >11.0 HIGH RISK Performed By: #### P OCGLUC #### [facility] [address] [address] [address] Kerrie Stark Cholesterol [Mass/Vol] 127 mg/dL Normal <=200 [facility] Comment on above: Performed By: #### P OCGLUC #### [facility] [address] [address] [address] Kerrie Stark Cholesterol in HDL [Mass/Vol] 50 mg/dL Normal 40-60 [facility] Comment on above: Performed By: #### P OCGLUC #### [facility] [address] [address] [address] Kerrie Stark Cholesterol in LDL [Mass/Vol] 58.8 mg/dL Normal [facility] Comment on above: Performed By: #### P OCGLUC #### [facility] [address] [address] [address] Kerrie Stark Cholesterol.total/Chol esterol in HDL [Mass ratio] 2.5 {ratio} Normal [facility] Comment on above: Performed By: #### P OCGLUC #### [facility] [address] [address] [address] Kerrie Stark HDL NORMAL > or = 60 mg/dl - LOW CARDIOVASCULAR RISK <40 mg/dl - HIGH CARDIOVASCULAR RISK Normal [facility] Comment on above: Performed By: #### P OCGLUC #### [facility] [address] [address] [address] Kerrie Stark LDL CALC NORMAL SEE BELOW Normal [facility] Comment on above: Result Comment: <100 mg/dl OPTIMAL 100 - 129 mg/dl NEAR OR ABOVE OPTIMAL 130 - 159 mg/dl BORDERLINE HIGH 160 - 189 mg/dl HIGH >190 mg/dl VERY HIGH Performed By: #### P OCGLUC #### [facility] [address] [address] [address] Kerrie Stark Triglyceride [Mass/Vol] 91 mg/dL Normal <=150 [facility] Comment on above: Performed By: #### P OCGLUC #### [facility] [address] [address] [address] Kerrie Stark VLDL CALC 18.2 mg/dL Normal [facility] Comment on above: Performed By: #### P OCGLUC #### [facility] [address] [place] [address] Dr. Kerrie Stark PROF 14(COMP METB)on 022 Albumin [Mass/Vol] 3.8 g/dL Normal 3.4-5.0 [facility] Comment on above: Performed By: #### P OCGLUC #### [facility] [address] [address] [address] Kerrie Stark Albumin/Globulin [Mass ratio] 1.0 {ratio} Normal [facility] Comment on above: Performed By: #### P OCGLUC #### [facility] [address] [address] [address] Kerrie Stark ALP [Catalytic activity/Vol] 56 U/L Normal 46-116 [facility] Comment on above: Performed By: #### P OCGLUC #### [facility] [address] [address] [address] Kerrie Stark ALT [Catalytic activity/Vol] 30 U/L Normal 16-63 [facility] Comment on above: Performed By: #### P OCGLUC #### [facility] [address] [address] [address] Kerrie Stark Anion gap [Moles/Vol] 13.3 mmol/L Normal [facility] Comment on above: Performed By: #### P OCGLUC #### [facility] [address] [address] [address] Kerrie Stark AST [Catalytic activity/Vol] 26 U/L Normal 15-37 [facility] Comment on above: Performed By: #### P OCGLUC #### [facility] [address] [address] [address] Kerrie Stark Bilirubin [Mass/Vol] 0.7 mg/dL Normal 0.2-1.0 [facility] Comment on above: Performed By: #### P OCGLUC #### [facility] [address] [address] [address] Kerrie Stark Calcium [Mass/Vol] 9.0 mg/dL Normal 8.5-10.1 [facility] Comment on above: Performed By: #### P OCGLUC #### [facility] [address] [address] [address] Kerrie Stark Chloride [Moles/Vol] 105 mmol/L Normal 98-107 [facility] Comment on above: Performed By: #### P OCGLUC #### [facility] [address] [address] [address] Kerrie Stark CO2 [Moles/Vol] 28.3 mmol/L Normal 21.0-32.0 [facility] Comment on above: Performed By: #### P OCGLUC #### [facility] [address] [address] [address] Kerrie Stark Creatinine [Mass/Vol] 1.00 mg/dL Normal 0.70-1.30 [facility] Comment on above: Performed By: #### P OCGLUC #### [facility] [address] [address] [address] Kerrie Stark EGFR-AF MALIAN >60 Normal >=60 [facility] Comment on above: Performed By: #### P OCGLUC #### [facility] [address] [address] [address] Kerrie Stark EGFR-NON AF MALIAN >60 Normal >=60 [facility] Comment on above: Performed By: #### P OCGLUC #### [facility] [address] [address] [address] Kerrie Stark Globulin (S) [Mass/Vol] 3.7 g/dL Normal [facility] Comment on above: Performed By: #### P OCGLUC #### [facility] [address] [address] [address] Kerrie Stark Glucose [Mass/Vol] 150 mg/dL Critically high 74-106 [facility] Comment on above: Performed By: #### P OCGLUC #### [facility] [address] [address] [address] Kerrie Stark Potassium [Moles/Vol] 5.6 mmol/L Critically high 3.5-5.1 [facility] Comment on above: Performed By: #### P OCGLUC #### [facility] [address] [address] [address] Kerrie Stark Protein [Mass/Vol] 7.5 g/dL Normal 6.4-8.2 [facility] Comment on above: Performed By: #### P OCGLUC #### [facility] [address] [address] [address] Kerrie Stark Sodium [Moles/Vol] 141 mmol/L Normal 136-145 [facility] Comment on above: Performed By: #### P OCGLUC #### [facility] [address] [address] [address] Kerrie Stark Urea nitrogen [Mass/Vol] 18.0 mg/dL Normal 7.0-18.0 [facility] Comment on above: Performed By: #### P OCGLUC #### [facility] [address] [address] [address] Kerrie Stark Urea nitrogen/Creatinine [Mass ratio] 18.0 mg/mg Normal [facility] Comment on above: Performed By: #### P OCGLUC #### [facility] [address] [address] [address] Kerrie Stark Creatinine (Bld) [Mass/Vol]O rdered By: Oumar Haynes on 01-30-2022 Creatinine [Mass/Vol] 1.0 mg/dL 0.6-1.3 [facility] Comment on above: ER/ESD physician is notified/shown all ISTAT results.Critical values may be confirmed by laboratory testing ifdeemed necessary by ER attending doctor. No Panel InformationOrdered By: Oumar Haynes on 01-30-2022 POC Estimated GFR > 60 [facility] Comment on above: GFR estimated refere nce range: According to KDOQI guidelines, <60 ml/min/1.73m2 is sufficient to diagnose a patient with chronic kidney disease. POC Estimated GFR Non- Amer > 60 [facility] Auth for Release of Medical Recordson 12-22-2021 Auth for Release of Medical Records [id number] #1.00CD:127 Normal [facility] Formson 11-25-2021 Forms [id number] #1.00CD:127 Normal [facility] Patient Educationon 11-24-19 Patient Education Infectious [...] Follow these instructions at home: ? Take mahg-ybs-bjfeeqb and prescription medicines only as told by [...] not included)... Normal [facility] Urology Office/Clinic Noteon 11-23-2021 Urology Office/Clinic Note [...] w 4 wks abx. side effects/risks discussed. medication nurse clearance 62-70, no renal dose adjustment needed. encouraged probiotics, metamucil, and yogurt to help w diarrhea. complete entire abx course. f/u in 2-3 mos to reassess Ordered: sulfamethoxazole-tri methoprim, 1 tab(s), Oral, BID for 4 week(s), 56 tab(s), Refill(s) 0, [id number], 180, cm, 11/23/21 10:01:00 EDT, Height/Length Dosing, 84, kg, 11/23/21 10:01:00 EDT, Weight Dosing E&M of New Patient Moderate 45-59 Min 02836 3. BPH with obstruction/lower urinary tract symptoms [...] E&M of New Patient Moderate 45-59 Min 82919 Orders: Urnls Dip Stick Auto w/o Microscopy POC [id number] Follow-up With When Contact Information KONG PEPE PA-C, URL Within 3 months [address] [place] [address] Additional Instructions: Patient Education Prostatitis Problem List/Past [...] Protein Urine Dipstick: Negative (11/23/21 09:44:00) Specific [place] Urine Dipstick: 1.015 (11/23/21 09 (more content not included)... Normal [facility] Comment on above: Result Comment: Elec tronically Signed By: KONG PEPE PA-C\.br\Date and Time Signed: 11/23/21 11:02 EDT Historical Records Officeon 11-01-2021 Historical Records Office [id number] #1.00CD:127 Normal [facility] FREE T3on 09-21-2021 FREE T3 1.88 pg/mlL Critically low 2.18-3.98 [facility] Comment on above: Performed By: #### P OCGLUC #### [facility] [address], [place] [address] Dr. Kerrie Stark FREE T4on 09-21-2021 Free T4 [Mass/Vol] 1.28 ng/dL Normal 0.76-1.46 [facility] Comment on above: Performed By: #### D DIM #### [facility] [address], [place] [address] Dr. Kerrie Stark TSHon 09-21-2021 TSH 0.625 uIU/mL Normal 0.358-3.740 [facility] Comment on above: Performed By: #### P OCGLUC #### [facility] [address], [place] [address] Dr. Kerrie Stark CTA Abdomen/Pelvis w/ and [...] 1410 Normal [facility] Specialist CREATININEon 08-03-2021 Creatinine [Mass/Vol] 0.98 mg/dL Normal 0.70-1.30 [facility] Comment on above: Performed By: #### L ACT #### [facility] [address] [place] [address] Dr. Kerrie Stark EGFR-AF MALIAN >60 Normal >=60 [facility] Comment on above: Performed By: #### L ACT #### [facility] [address] [address] [address] Kerrie Stark EGFR-NON AF MALIAN >60 Normal >=60 [facility] Comment on above: Performed By: #### L ACT #### [facility] [address] [address] [address] Kerrie Stark GLYCOHEMOGLOBIN A1Con 2021 ADA RECOMMENDATION SEE BELOW Normal [facility] Comment on above: Result Comment: ADA RECOMMENDED LIMIT 4.0 - 6.0 ADA THERAPEUTIC TARGET < 7.0 ACTION SUGGESTED > 7.0 Performed By: #### P OCGLUC #### [facility] [address] [place] [address] Dr. Kerrie Stark Glucose [Mass/Vol] 146 mg/dL Normal [facility] Comment on above: Performed By: #### P OCGLUC #### [facility] [address] [address] [address] Kerrie Stark HbA1c (Bld) [Mass fraction] 6.7 % Critically high 4.5-6.2 [facility] Comment on above: Performed By: #### P OCGLUC #### [facility] [address] [place] [address] Dr. Kerrie Stark Vital Signs Date Time Vital Sign Value Performing Clinician Facility 01-03-2024 10:41-0500 Body height 180.3 cm Clayton Mcfadden MD Work Phone: [facility] 01-03-2024 10:41-0500 Body mass index (BMI) [Ratio] 26.36 kg/m2 Clayton Mcfadden MD Work Phone: [facility] 01-03-2024 10:41-0500 Body temperature 98.1 [degF] Clayton Mcfadden MD Work Phone: [facility] 01-03-2024 10:41-0500 Body weight 85.73 kg Clayton Mcfadden MD Work Phone: [facility] 01-03-2024 10:41-0500 Heart rate 61 /min Clayton Mcfadden MD Work Phone: [facility] 01-03-2024 10:41-0500 SaO2% (BldA) [Mass fraction] 92 % Clayton Mcfadden MD Work Phone: [facility] 12-17-2023 14:55-0400 Body height 180.3 cm Clayton Mcfadden MD Work Phone: [facility] 12-17-2023 14:55-0400 Body mass index (BMI) [Ratio] 26.36 kg/m2 Clayton Mcfadden MD Work Phone: [facility] 12-17-2023 14:55-0400 Body weight 85.73 kg Clayton Mcfadden MD Work Phone: [facility] 11-12-2023 10:38-0400 Body height 180.3 cm Clayton Mcfadden MD Work Phone: [facility] 11-12-2023 10:38-0400 Body mass index (BMI) [Ratio] 26.36 kg/m2 Clayton Mcfadden MD Work Phone: [facility] 11-12-2023 10:38-0400 Body weight 85.73 kg Clayton Mcfadden MD Work Phone: [facility] 11-12-2023 10:38-0400 Diastolic blood pressure 80 mm[Hg] Clayton Mcfadden MD Work Phone: [facility] 11-12-2023 10:38-0400 Heart rate 62 /min Clayton Mcfadden MD Work Phone: [facility] 11-12-2023 10:38-0400 SaO2% (BldA) [Mass fraction] 97 % Clayton Mcfadden MD Work Phone: [facility] 11-12-2023 10:38-0400 Systolic blood pressure 130 mm[Hg] Clayton Mcfadden MD Work Phone: [facility] 01-31-2023 10:00-0500 Body height 175.26 cm Horace Jasso Other [facility] Other 01-31-2023 10:00-0500 Body mass index (BMI) [Ratio] 27.32 kg/m2 Horace Jasso Other [facility] Other 01-31-2023 10:00-0500 Body temperature 97.6 [degF] Horace Jasso Other [facility] Other 01-31-2023 10:00-0500 Body weight 83.92 kg Horace Jasso Other [facility] Other 01-31-2023 10:00-0500 Diastolic blood pressure 64 mm[Hg] Horace Jasso Other [facility] Other 01-31-2023 10:00-0500 SaO2% (BldA) [Mass fraction] 94 % Horace Fernandezpatti Other [facility] Other 01-31-2023 10:00-0500 Systolic blood pressure 108 mm[Hg] Horace Louisa Other [facility] Other 03-27-2022 23:40-0500 Diastolic blood pressure 78 mm[Hg] [facility] 03-27-2022 23:40-0500 Heart rate 121 /min [facility] 03-27-2022 23:40-0500 Respiratory rate 22 /min [facility] 03-27-2022 23:40-0500 SaO2% (BldA) [Mass fraction] 92 % [facility] 03-27-2022 23:40-0500 Systolic blood pressure 137 mm[Hg] [facility] 01-31-2022 12:00-0500 Body height 175.26 cm Yolette Thompsonyusuf Other [facility] Other 01-31-2022 12:00-0500 Body mass index (BMI) [Ratio] 27.32 kg/m2 Yolette Thompsonyusuf Other [facility] Other 01-31-2022 12:00-0500 Body temperature 96.4 [degF] Yolette Sherin Other [facility] Other 01-31-2022 12:00-0500 Body weight 83.92 kg Yolette Thompsonyusuf Other [facility] Other 01-31-2022 12:00-0500 Diastolic blood pressure 72 mm[Hg] Yolette Sherin Other [facility] Other 01-31-2022 12:00-0500 SaO2% (BldA) [Mass fraction] 97 % 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 Other [facility] Other 01-31-2022 12:00-0500 Systolic blood pressure 120 mm[Hg] 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 Other [facility] Other 11-23-2021 09:59-0400 Blood Pressure Location KONG PEPE [facility] 11-23-2021 09:59-0400 Diastolic blood pressure 70 mm[Hg] KONG PEPE [facility] 11-23-2021 09:59-0400 Heart rate 66 /min KONG PEPE [facility] 11-23-2021 09:59-0400 Systolic blood pressure 132 mm[Hg] KONG PEPE [facility] 08-16-2021 12:45-0400 Body height 175.26 cm Oumar Haynes Other [facility] Other 08-16-2021 12:45-0400 Body mass index (BMI) [Ratio] 27.32 kg/m2 Oumar Haynes Other [facility] Other 08-16-2021 12:45-0400 Body temperature 96.9 [degF] Oumar Haynes Other [facility] Other 08-16-2021 12:45-0400 Body weight 83.92 kg Oumar Haynes Other [facility] Other 08-16-2021 12:45-0400 Diastolic blood pressure 78 mm[Hg] Oumar Haynes Other [facility] Other 08-16-2021 12:45-0400 SaO2% (BldA) [Mass fraction] 95 % Oumar Haynes Other [facility] Other 08-16-2021 12:45-0400 Systolic blood pressure 110 mm[Hg] Oumar Haynes Other [facility] Other Encounters Encounter Date Encounter Type Care Provider Facility Start: 01-09-2024 End: 01-09-2024 Dona Paez RN Work Phone: [facility] Comment on above: 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, with long-term current use of insulin (HCC) ([facility]) (Primary Dx); Gastroesophageal reflux disease without esophagitis; Acquired hypothyroidism ([facility]/HCC) Start: 01-03-2024 End: 01-03-2024 ambulatory CLAYTON MCFADDEN Not Available Start: 01-03-2024 End: 01-03-2024 Office outpatient visit 25 minutes Clayton Mcfadden MD Work Phone: [facility] Comment on above: Acute exacerbation o f chronic obstructive pulmonary disease (COPD) ([facility]) (Primary Dx); Interstitial lung disease ([facility]); Panlobular emphysema ([facility]); Polypharmacy Start: 12-17-2023 End: 12-17-2023 Office outpatient visit 15 minutes Clayton Mcfadden MD Work Phone: [facility] Comment on above: Acute right-sided lo w back pain without sciatica Start: 12-17-2023 End: 12-17-2023 ambulatory CLAYTON MCFADDEN Not Available Start: 11-12-2023 End: 11-12-2023 Bamboo flowsheet Clayton Mcfadden MD Work Phone: [facility] Start: 11-12-2023 End: 11-12-2023 Bamboo flowsheet Clayton Mcfadden MD Work Phone: [facility] Start: 11-12-2023 End: 11-12-2023 Office outpatient visit 25 minutes Clayton Mcfadden MD Work Phone: [facility] Comment on above: Benign essential hyp ertension (CMS/HCC); Hypertensive nephropathy (CMS/HCC); Stage 3a chronic kidney disease (HCC) (CMS/HCC); Microalbuminuria; Type 2 diabetes mellitus with stage 3a chronic kidney disease, with long-term current use of insulin (HCC) (CMS/HCC); Mixed hyperlipidemia (CMS/HCC); Hyperuricemia; Polypharmacy; Chronic respiratory failure with hypoxia (CMS/HCC); Ex-smoker; Overweight; Infrarenal abdominal aortic aneurysm, without rupture (CMS/HCC); Atherosclerosis of aorta ([facility]/HCC) Start: 11-12-2023 End: 11-12-2023 ambulatory CLAYTON MCFADDEN Not Available Start: 11-06-2023 End: 11-06-2023 Clinisync Result Encounter Clayton Mcfadden MD Work Phone: [facility] External Department Unsolicited Start: 11-06-2023 End: 11-06-2023 Clinisync Result Encounter Clayton Mcfadden MD Work Phone: [facility] External Department Unsolicited Start: 05-22-2023 End: 05-22-2023 ambulatory CLAYTON MCFADDEN Not Available Start: 03-28-2023 Refill Clayton diez MD Work Phone: [facility] Comment on above: 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, with long-term current use of insulin (HCC) ([facility]/HCC) Start: 01-31-2023 Office outpatient vi sit 15 minutes Horace ALMANZA [facility] Start: 01-31-2023 End: 01-31-2023 ambulatory 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 Facility:[facility] Start: 01-31-2023 End: 01-31-2023 ambulatory MD Clayton Mcfadden Work Phone: [employer] Other Start: 01-31-2023 End: 01-31-2023 Patient encounter procedure MD Clayton Mcfadden Work Phone: [facility]-Ultras[facility] Start: 01-15-2023 End: 01-15-2023 ambulatory CLAYTON MCFADDEN Not Available Start: 12-01-2022 End: 12-01-2022 ambulatory CLAYTON [facility]y [facility] Start: 10-03-2022 End: 10-03-2022 ambulatory CLAYTON Miguel [facility] Start: 08-28-2022 End: 08-29-2022 ambulatory CLAYTON Miguel [facility] Start: 08-09-2022 End: 08-10-2022 ambulatory CLAYTON Lariosy [facility] Start: 08-09-2022 End: 08-09-2022 Subsequent hospital visit by physician Clayton Mcfadden MD Work Phone: [facility] Comment on above: Dysuria; Frequency of micturition Start: 07-03-2022 End: 07-04-2022 ambulatory ZOILA JAVED . Facility:[facility] Start: 06-26-2022 End: 06-27-2022 ambulatory ZOILA JAVED . Facility:[facility] Start: 06-14-2022 End: 06-15-2022 ambulatory JASONDAYO Miguel Miguel [facility] Start: 04-24-2022 End: 05-18-2022 ambulatory THELMA BETTS Facility:[facility] Start: 04-19-2022 End: 04-19-[address] CLAYTON MCFADDEN . Facility:[facility] Start: 04-05-2022 End: 04-08-2022 Evaluation and management of inpatient GABRIELA WOMACKP . Facility:[facility] Start: 04-05-2022 End: 04-06-[address] CLAYTON MCFADDEN . Facility:[facility] Start: 03-30-2022 End: 06-29-2022 ambulatory UNKNOWN PROVIDER Facility:[facility] Start: 03-28-2022 End: 03-29-2022 ambulatory SHAIKH Matilde LAU Facility:[facility] Start: 03-27-2022 End: 03-27-2022 ambulatory [facility] Emer[facility] y Triage, Treat and Transport Start: 03-27-2022 End: 03-27-2022 Emergency department patient visit [facility] Emergency Triage, Treat and Transport Comment on above: Arrived Start: 03-02-2022 End: 03-03-[address] CLAYTON MCFADDEN . Facility:[facility] Start: 03-01-2022 End: 03-02-2022 ambulatory ERICA Miguel [facility] Start: 03-01-2022 End: 03-01-2022 Subsequent hospital visit by physician Clayton Mcfadden MD Work Phone: [facility] Comment on above: BPH with [...] 01-31-2022 End: 01-31-2022 ambulatory 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 Other [facility] Other Start: 01-31-2022 Follow-up encounter Yolette Rosenberg [facility] Start: 01-30-2022 End: 01-30-2022 ambulatory MD Clayton Mcfadden Work Phone: [facility] Work Phone: Start: 01-30-2022 End: 01-30-2022 Patient encounter procedure MD Clayton Mcfadden Work Phone: [facility]-CT Scan [facility] [place] Start: 11-23-2021 End: 11-24-2021 ambulatory KONG PEPE Facility:[facility] Start: 11-23-2021 End: 11-23-2021 Patient encounter procedure KONG PEPE [facility] Start: 09-21-2021 End: 09-22-[address] CLAYTON MCFADDEN . Facility: Start: 08-19-[address] CLAYTON MCFADDEN . Fac ility:[facility] Start: 08-16-2021 End: 08-16-2021 ambulatory Oumar Haynes Other [facility] Other Start: 08-16-2021 Office outpatient ne w 45 minutes Oumar Haynes [facility] Start: 08-03-2021 End: 08-04-2021 [...] above: Performed By: #### P OCGLUC #### [facility] [address] [place] [address] Dr. Kerrie Stark Start: 03-01-2022 Urnls dip stick/tabl et reagent auto microscopy Erica Veras MD Work Phone: Start: 01-30-2022 Computed tomography angiography of abdominal and/or pelvic blood vessel MD Clayton Mcfadden Work Phone: Start: 12-24-2017 Cystoscopy KONG BRITO Start: [birth year]-1977 H/O: vasectomy KONG PEPE Plan of Treatment Date Care Activity Detail Author Start: 05-21-2025 Glaucoma screening Diabetes: R etinopathy Screening [facility] Start: 06-03-2024 End: 06-03-2024 Patient encounter procedure [facility] Start: 05-07-2024 Hemoglobin A1c measurement Diabetes: Hemoglobin A1C [facility] Start: 03-14-2024 Urine screening for protein Diabetes: Urine Protein Screening [facility] Start: 03-06-2024 Glaucoma screening Diabetes: R etinopathy Screening [facility] Start: 11-18-2023 Hemoglobin A1c measurement Diabetes: Hemoglobin A1C [facility] Start: 11-12-2023 End: 11-12-2023 Patient encounter procedure [facility] Comment on above: Benign essential hyp ertension (CMS/HCC); Hypertensive nephropathy ([facility]/HCC); Stage 3a chronic kidney disease (HCC) ([facility]/HCC); Microalbuminuria; Type 2 diabetes mellitus with stage 3a chronic kidney disease, with long-term current use of insulin (HCC) ([facility]/HCC); Mixed hyperlipidemia ([facility]); Hyperuricemia; Hypomagnesemia; Polypharmacy; Ex-smoker; Overweight Start: 10-21-2023 Influenza vaccination Influenza Vacc ine (#1) [facility] Start: 05-22-2023 End: 05-22-2023 Patient encounter procedure 05/22/2023 11:00 AM EDT Office Visit [facility] [address] [place] [address] Clayton Mcfadden MD [address] [place] [address] [facility] Start: 01-23-2023 Hemoglobin A1c measurement Diabetes: Hemoglobin A1C [facility] Start: 09-20-2022 End: 09-20-2022 Patient encounter procedure 09/20/2022 Office Visit [facility] Start: 03-20-2022 End: 03-20-2022 Patient encounter procedure 03/20/2022 Procedure visit [facility] Start: 03-01-2022 Annual Wellness Visi t (AWV) Annual Wellness Visit (AWV) [facility] Start: 11-19-2021 Influenza vaccination Influenza Vacc ine (#1) [facility] Start: 09-19-2021 Influenza vaccination Flu vaccine (# 1) [facility] Start: 01-29-2021 COVID-19 Vaccine (4 - Booster for Pfizer series) COVID-19 Vaccine (4 - Booster for Pfizer series) [facility] Start: 02-18-2014 Shingles vaccine (2 of 3) Shingles vaccine (2 of 3) [facility] Start: 2005 Pneumococcal 65+ yea rs Vaccine (1 - PCV) Pneumococcal 65+ years Vaccine (1 - PCV) [facility] Start: 2005 Pneumococcal vaccination Pneum ococcal Vaccine(s) (65+ yrs) (1 - PCV) [facility] Start: 1990 Shingles (RZV) Vacci ne (1 of 2) Shingles (RZV) Vaccine (1 of 2) [facility] Start: 1990 Shingles vaccine (1 of 2) Shingles vaccine (1 of 2) [facility] Start: 04-26-1959 DTaP/Tdap/Td vaccine (1 - Tdap) DTaP/Tdap/Td vaccine (1 - Tdap) [facility] Start: 1958 Tetanus + diphtheria + acellular pertussis vaccine (product) Tdap Booster [facility] Start: 1952 Depression Screen Depression Screen [facility] Start: 1950 Lipid panel Lipids [facility] Start: 1940 COVID-19 Vaccine (#1) COVID-19 Vacci ne (#1) [facility] End: 03-01-2022 Culture, Urine [facility] Work Phone: Comment on above: 1 Occurrences starti ng 03/01/2022 until 03/01/2022 End: 08-09-2022 Culture, Urine [facility] Comment on above: 1 Occurrences starti ng 08/09/2022 until 08/09/2022 Immunizations Immunization Date Immunization Notes Care Provider Tom chamorro 12-27-2023 influenza, seasonal, injectable Briseida Paez RN Work Phone: [facility] 12-04-2022 Influenza, Seasonal, Quadrivalent, Adjuvanted Clayton Mcfadden MD Work Phone: [facility] 12-04-2022 influenza virus vacc ine, unspecified formulation Clayton Mcfadden MD Work Phone: [facility] 12-08-2021 influenza, injectabl e, quadrivalent, preservative free Clayton Mcfadden MD Work Phone: [facility] 12-08-2021 Influenza, Seasonal, Quadrivalent, Adjuvanted Clayton Mcfadden MD Work Phone: [facility] 12-04-2020 influenza, high dose seasonal, preservative-free Clayton Mcfadden MD Work Phone: [facility] 12-04-2020 Influenza, High-dose Seasonal, Quadrivalent, Preservative Free Clayton Mcfadden MD Work Phone: [facility] 11-29-2019 influenza, injectabl e, quadrivalent, preservative free Clayton Mcfadden MD Work Phone: [facility] 10-15-2019 influenza, high dose seasonal, preservative-free Clayton Mcfadden MD Work Phone: [facility] 11-07-2018 influenza, injectabl e, quadrivalent, preservative free Clayton Mcfadden MD Work Phone: [facility] 11-07-2018 Seasonal trivalent influenza vaccine, adjuvanted, preservative free Clayton Mcfadden MD Work Phone: [facility] 11-23-2017 influenza, high dose seasonal, preservative-free Clayton Mcfadden MD Work Phone: [facility] 11-23-2017 influenza, injectabl e, quadrivalent, preservative free Clayton Mcfadden MD Work Phone: [facility] 01-31-2017 pneumococcal conjuga te vaccine, 13 valent Clayton Mcfadden MD Work Phone: [facility] 01-19-2017 pneumococcal conjuga te vaccine, 13 valent Clayton Mcfadden MD Work Phone: [facility] 01-17-2017 influenza, high dose seasonal, preservative-free Clayton Mcfadden MD Work Phone: [facility] 01-12-2016 pneumococcal polysaccharide vaccine, 23 valent Clayton Mcfadden MD Work Phone: [facility] 12-16-2015 influenza, high dose seasonal, preservative-free Clayton Mcfadden MD Work Phone: [facility] 01-08-2015 influenza, injectabl e, quadrivalent, preservative free Clayton Mcfadden MD Work Phone: [facility] 01-08-2015 influenza, seasonal, injectable, preservative free Clayton Mcfadden MD Work Phone: [facility] 12-24-2013 zoster vaccine, live Clayton Mcfadden MD Work Phone: [facility] 08-06-2013 pneumococcal polysaccharide vaccine, 23 valent Clayton Mcfadden MD Work Phone: [facility] 12-23-2012 influenza, seasonal, injectable, preservative free Clayton Mcfadden MD Work Phone: [facility] Payers Date Payer Category Payer Unknown [id number] 2022 Unknown [id number] 2022 Private Health Insurance [employer] Ne mbchary [id number] 2022 Unknown AARP AARP [id number] 2022-Present [address] [place] [address] [id number] 2010 Medicare [id number] 1959 Medicare [id number] [id number] 1959 Self-pay [id number] 1959 Self-pay [id number] 1959 Unknown [id number] 2.16.840.1.199584.19 1940 Unknown [id number] 2.16.840.1.845361.3.579.2 .727 1940 Unknown [id number] 2.16.840.1.054610.3.579.2 .727 1940 Unknown [id number] 2.16.840.1.684167.3.579.2 .732 1940 Unknown [id number] 2.16.840.1.547266.3.579.2 .593 1940 Unknown [id number] 2.16.840.1.706348.3.579.2 .593 1940 Unknown [id number] 2.16.840.1.054555.3.579.2 .593 1940 Unknown [id number] 2.16.840.1.331535.3.579.2 .593 1940 Unknown [id number] 2.16.840.1.880177.3.579.2 .593 1940 Unknown [id number] 2.16.840.1.441319.3.579.2 .593 1940 Unknown [id number] 2.16.840.1.875362.3.579.2 .593 1940 Unknown [id number] 2.16.840.1.574131.3.579.2 .593 194 Unknown [id number] 2.16.840.1.139949.3.579.2 .593 1940 Unknown [id number] 2.16.840.1.284365.3.579.2 .593 1940 Unknown [id number] 2.16.840.1.013068.3.579.2 .593 1940 Unknown [id number] 2.16.840.1.612939.3.579.2 .593 1940 Unknown [id number] 2.16.840.1.582331.3.579.2 .593 1940 Unknown [id number] 2.16.840.1.273398.3.579.2 .593 1940 Unknown [id number] 2.16.840.1.527967.3.579.2 .593 1940 Unknown [id number] 2.16.840.1.631719.3.579.2 .173 1940 Unknown [id number] 2.16.840.1.973788.3.579.2 .173 1940 Unknown [id number] 2.16.840.1.119579.3.579.2 .173 1940 Unknown [id number] 2.16.840.1.254588.3.579.2 .173 1940 Unknown [id number] 2.16.840.1.439607.3.579.2 .173 1940 Unknown [id number] 2.16.840.1.775050.3.579.2 .173 1940 Unknown [id number] 2.16.840.1.052897.3.579.2 .1259 1940 Unknown [id number] 2.16.840.1.822413.3.579.2 .1259 1940 Unknown [id number] 2.16.840.1.602945.3.579.2 .1259 1940 Unknown [id number] 2.16.840.1.289673.3.579.2 .1259 1940 Unknown [id number] 2.16.840.1.868468.3.579.2 .1259 Unknown [id number] 2.16.840.1.890743.3.579.2 .531 Social History Date Type Detail Facility Start: 10-25-2022 End: 06-25-2023 Sex Assigned At [facility] Other Start: 05-12-2019 Tobacco smoking status Never smoked tobacco (finding) [facility] Start: 1940 Sex Assigned At Male [facility] Start: 03-01-2022 End: 11-12-2023 Tobacco smoking status DEIS Ex-smoker [facility] Phone: Start: 02-20-1964 End: 01-08-1995 History of tobacco use Current smoker [facility] Phone: Start: 02-20-1964 End: 01-08-1995 History of tobacco use Cigarette Smoker [facility] Phone: Start: 03-01-2022 End: 11-12-2023 Tobacco use and exposure Smokeless tobacco non-user [facility] Phone: Start: 03-01-2022 End: 05-23-2023 Alcohol intake Lifetime non-drinker (finding) [facility] Phone: Start: 1940 Sex Assigned At Not on file [facility] Phone: Tobacco smoking stat us DEIS Tobacco smoking consumption unknown [facility] Start: 10-25-2022 End: 06-25-2023 History of Social function [facility] Fear of Current or Ex-Partner Not on file [facility] Within the last year , have you been humiliated or emotionally abused in other ways by your partner or ex-partner? No [facility] Do you belong to any clubs or organizations such as episcopal groups, unions, fraternal or athletic groups, or [...] smoking: >30 years. Last smoked: >10 years [facility] Start: 08-12-2022 Alcohol Comment Caffeine intake: 1-2 cups per day [facility] Start: 11-12-2023 End: 12-17-2023 Alcoholic beverage intake Ex-drinker (finding) [facility] How often to you hav e a drink containing alcohol? Never [facility] Do you feel stress - tense, restless, nervous, or anxious, or unable to sleep at night because your mind is troubled all the time - these days [OSQ] Not at all [facility] (I/We) worried wheth er (my/our) food would run out before (I/we) got money to buy more. Never true [facility] Medical Equipment Procedure Code Equipment Code Equipment Origin al Text Equipment Identifier Dates 1 each by Other route in the morning and 1 each at noon and 1 each in the evening and 1 each before bedtime. Use as instructed 4 times a day. Sliding scale to titrate blood sugars One touch Ultra Blue. [id number] Start: 03-23-2023 End: 06-21-2023 1 each by Other route in the morning and 1 each in the evening and 1 each before bedtime. Use as instructed. Sliding scale to titrate blood sugars One touch Ultra Blue DX: E11.22, N18.31, Z79.4. [id number] Start: 06-07-2023 End: 01-09-2024 1 each by Other route in the morning and 1 each in the evening and 1 each before bedtime. Use as instructed. Sliding scale to titrate blood sugars One touch Ultra Blue DX: E11.22, N18.31, Z79.4. [id number] Start: 01-09-2024 End: 07-07-2024 Functional Status Date Assessment Result Facility 11-23-2021 Functional Status N/A [facility] Clinical Notes 08-16-2021 to 01-03-2024 Clayton Mcfadden MD - 01/03/2024 11:45 AM Payal Mcfadden MD - 12/17/2023 3:00 PM Raquel Mcfadden MD - 11/12/2023 11:00 AM EDT Note Date & Type Note Facility [...] exacerbation of chronic obstructive pulmonary disease (COPD) ([facility]) (Primary) Acute problem which is recurrent [...] tablet; Refill: 0 2. Interstitial lung disease (CMS/HCC) Chronic problem, comorbid condition 3. Panlobular emphysema (CMS/HCC) Chronic problem, comorbid condition 4. Polypharmacy Chronic [...] evaluation and management. documented in this encounter [facility] 12-17-2023 History of Presen t illness Narrative [...] dipstick manually resulted documented in this encounter [facility] 11-12-2023 History of Presen t illness Narrative Images from the original note were not included. Patient ID: Chema Childs is a 83 y.o. male who presents for: Hypertension Patient is here for follow-up of elevated blood pressure. He is exercising and is adherent to a low-salt diet. Blood pressure is well controlled at home. Cardiac symptoms: none. Patient denies chest pain, dyspnea, irregular heart beat, lower extremity edema, and palpitations. Cardiovascular risk factors: advanced age (older than 55 for men, 65 for women), diabetes mellitus, dyslipidemia, hypertension, male gender, microalbuminuria, and smoking/ tobacco exposure. Use of agents associated with hypertension: thyroid hormones. History of target organ damage: none. Hyperlipidemia Pt who presents for follow-up of dyslipidemia. A repeat fasting lipid profile was done. The patient does not use medications that may worsen dyslipidemias (corticosteroids, progestins, anabolic steroids, diuretics, beta-blockers, amiodarone, cyclosporine, olanzapine). Exercise: daily. Diabetes Mellitus Patient presents for follow up of diabetes. Current symptoms include: none. Symptoms have stabilized. Patient denies paresthesia of the feet, polydipsia, polyuria, and visual disturbances. Evaluation to date has included: fasting blood sugar, fasting lipid panel, and hemoglobin A1C. Home sugars: checks at home . 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 The patient reports no acute gout attacks since last clinic visit. Attacks occur primarily in the pt does not remember . Patient reports his/her chronic pain is stable, his joint stiffness is stable and his/her joint swelling is stable. Limitation on activities include none. Review of Systems Constitutional: Negative for activity change and fatigue. Respiratory: Negative for cough, shortness of breath and wheezing. Cardiovascular: Negative for chest pain, palpitations and leg swelling. Neurological: Negative for light-headedness and headaches. Objective The patient is pleasant and in no acute distress. He does have bilateral cerumen impactions. The neck is supple and trachea is midline. No masses are appreciated. The heart is regular rate and rhythm without S3, S4. No murmur. The patient has normal respiratory pattern. The breath sounds are Diffusely decreased but symmetrical without evidence of rhonchi or rales. No wheezing. The skin is warm and dry. The lower extremities have trace edema. The patient has good eye contact and speech is clear. Appropriate affect. Visit Vitals BP 130/80 Pulse 62 Ht 5' 11 Wt 189 lb SpO2 97% BMI 26.36 kg/m Smoking Status Former BSA 2.07 m [facility] Result Encounter on 11/06/2023 Component Date Value Ref Range Status GLYCOHEMOGLOBIN A1C 11/06/2023 5.7 4.5 - 6.2 % Final Comment: ADA RECOMMENDED LIMIT 4.0 - 6.0 ADA THERAPEUTIC TARGET < 7.0 ACTION SUGGESTED > 7.0 ESTIMATED AVERAGE GLUCOSE 11/06/2023 117 mg/dL Final [facility] Result Encounter on 05/18/2023 Component Date Value Ref Range Status SODIUM 05/18/2023 141 136 - 145 mmol/L Final POTASSIUM 05/18/2023 4.2 3.5 - 5.1 mmol/L Final CHLORIDE 05/18/2023 104 98 - 107 mmol/L Final CARBON DIOXIDE 05/18/2023 26.6 21.0 - 32.0 mmol/L Final ANION GAP 05/18/2023 14.6 Final GLUCOSE 05/18/2023 123 (H) 74 - 106 mg/dL Final BLOOD UREA NITROGEN 05/18/2023 24.0 (H) 7.0 - 18.0 mg/dL Final CREATININE 05/18/2023 1.18 0.70 - 1.30 mg/dL Final TBH EGFR-AF MALIAN 05/18/2023 >60 >=60 Final TBH EGFR-NON AF MALIAN 05/18/2023 59 (L) >=60 Final BUN CREATININE RATIO 05/18/2023 20.3 Final CALCIUM 05/18/2023 9.0 8.5 - 10.1 mg/dL Final GLYCOHEMOGLOBIN A1C 05/18/2023 6.4 (H) 4.5 - 6.2 % Final Comment: ADA RECOMMENDED LIMIT 4.0 - 6.0 ADA THERAPEUTIC TARGET < 7.0 ACTION SUGGESTED > 7.0 ESTIMATED AVERAGE GLUCOSE 05/18/2023 137 mg/dL Final URIC ACID 05/18/2023 3.2 (L) 3.5 - 7.2 mg/dL Final TRIGLYCERIDES 05/18/2023 166 (H) <=150 mg/dL Final CHOLESTEROL 05/18/2023 131 <=200 mg/dL Final HDL CHOLESTEROL 05/18/2023 37 (L) 40 - 60 mg/dL Final Comment: > or =60 mg/dl - LOW CARDIOVASCULAR RISK <40 mg/dl - HIGH CARDIOVASCULAR RISK LDL CHOLESTEROL CALCULATED 05/18/2023 61.0 mg/dL Final Comment: <100 mg/dl OPTIMAL 100-129 mg/dl NEAR OR ABOVE OPTIMAL 130-159 mg/dl BORDERLINE HIGH 160-189 mg/dl HIGH >190 mg/dl VERY HIGH VLDL CHOLESTEROL 05/18/2023 33.2 mg/dL Final CHOL HDL RATIO 05/18/2023 3.5 Final Comment: 3.3 - 4.4 LOW RISK 4.4 - 7.1 AVERAGE RISK 7.1 - 11.0 MODERATE RISK >11.0 HIGH RISK Allergies Allergen Reactions Erythromycin Nausea And Vomiting [...] mg) by mouth Daily 90 tablet 1 atorvastatin (Lipitor) 20 MG tablet Take 1 [...] E11.22, N18.31, Z79.4. 270 each 1 insulin aspart (NovoLOG) 100 UNIT/ML injection Sliding scale 3 times daily with meals; 141-200=3u, 201-250=5u, 251-300=8u, >300=12u 15 mL 0 latanoprost (Xalatan) 0.005 % ophthalmic solution Administer [...] the morning and 1 drop before bedtime. [DISCONTINUED] L-lysine 1000 MG tablet Take 1,000 mg by mouth in the morning. aspirin 81 MG EC tablet Take 81 mg by mouth in the morning. [DISCONTINUED] ascorbic acid (Vitamin C) 500 MG tablet Take 500 mg by mouth in the morning. No current facility-administered medications on file prior to visit. 1. Benign essential hypertension (CMS/HCC) Chronic problem, stable, to goal - losartan (Cozaar) 50 MG tablet; Take 1 tablet (50 mg) by mouth Daily Dispense: 90 tablet; Refill: 1 2. Hypertensive nephropathy (CMS/HCC) Labs from earlier in the year reviewed again 3. Stage 3a chronic kidney disease (HCC) (CMS/HCC) Labs from earlier in the year reviewed again 4. Microalbuminuria Chronic problem, defining an aspect the nephropathy, with significant risk, uncertain progression requiring longitudinal monitoring, and moderate decision making. Microalbuminuria describes a moderate increase in the level of urine albumin. Normally, the kidneys filter albumin, so if the kidney leaks small amounts of albumin into the urine then it is a indicator of chronic kidney disease. Microalbuminuria is an independent indicator of increased cardiovascular risk among individuals and therefore can be used for risk stratification for cardiovascular disease. 5. Type 2 diabetes mellitus with stage 3a chronic kidney disease, with long-term current use of insulin (HCC) (CMS/HCC) Chronic problem, stable, to goal. I did review the list of blood sugars he brought in along with his blood pressures and they are scanned into the chart. - insulin aspart (NovoLOG) 100 UNIT/ML injection; Sliding scale 3 times daily with meals; 141-200=3u, 201-250=5u, 251-300=8u, >300=12u Dispense: 15 mL; Refill: 0 - metFORMIN XR (Glucophage-XR) 750 MG 24 hr tablet; Take 1 tablet (750 mg) by mouth in the evening. Take with meals Dispense: 90 tablet; Refill: 1 6. Mixed hyperlipidemia (CMS/HCC) - atorvastatin (Lipitor) 20 MG tablet; Take 1 tablet (20 mg) by mouth in the evening Dispense: 90 tablet; Refill: 1 7. Hyperuricemia No episodes of gouty arthropathy - allopurinol (Zyloprim) 100 MG tablet; Take 1 tablet (100 mg) by mouth Daily Dispense: 90 tablet; Refill: 1 8. Polypharmacy Chronic problem The patient meets the [...] a moderate degree of evaluation and management. 9. Chronic respiratory failure with hypoxia (CMS/HCC) Chronic problem, stable Upon further questioning with him he is only wearing the oxygen during nighttime sleeping. He frequently takes naps in the afternoon. I did discuss with him the importance of wearing oxygen anytime he is sleeping. 10. Ex-smoker Continue nonsmoking 11. Overweight He is doing well and sticking with his pulmonary rehabilitation 3 times weekly. 12. Infrarenal abdominal aortic aneurysm, without rupture (CMS/HCC) He does not feel his legs are cold and he is having no evidence of claudication. 13. Atherosclerosis of aorta (CMS/HCC) As above As a note we did remove the cerumen impaction with both manual and peroxide / water rinsing. Both canals were patent before he left in his hearing was improved. documented in this encounter [facility] 01-31-2023 Evaluation note Encounter Date Diagnosis Assessment [...] were answered he understands agrees the plan. [facility] Other 02-16-2023 NoteEXAMINATION: XR CHEST 2 V [...] Electronically authenticated by: ULISSES FRANCO Date: 2022-04-06 08:00[facility]02-09-2023 History of Present illness Narrative* Horace Parra DO - 03/30/2022 10:13 AM EST Images from the original note were not included. EMERGENCY TRIAGE, TREAT AND TRANSPORT (ET3) DOCUMENTATION OF TELEHEALTH VISIT Date / Time: 03/27/20222339 Name: Chema Childs : 1940 SSN: (Not on file) EMS Agency: [facility] [x] Verbal consent obtained [] Implied [...] by: Horace Parra DO documented in this [id number] Evaluation note* Encounter Date Diagnosis Assessment Notes [...] with this plan, and denies any questions. [facility] Other 10-05-2022 Hospital Discharge instructions Patient Education [...] prostate. Follow these instructions at home: Take yjni-pjr-[id number] and prescription medicines only as told by [...] 02/02/2001 Document Revised: 04/20/2018 Document Reviewed: 10/26/2016 [employer] Patient Education 2020 [employer]. Follow Up Care 11/01/2021 10:45:28 With:MY GALDAMEZ, KONG Brown, URL Address: [address] [place] [address] When:3 months [facility] 06-28-2022 Evaluation note* Encounter Date Diagnosis Assessment Notes Treatment Notes Treatment Clinical Notes Jul, Abdominal aortic aneurysm (AAA) 3.0 cm to 5.5 cm in diameter in male (ICD-10 - I71.4) Jul, Other Aortic ulcer wi th small aneurysm Review of the images today [id number] ulcer of the infrarenal aorta that does [...] understand and all the questions were answered. [facility] Other Evaluation + Plan note Future Appointments Appointment Date:02/22/2022 01:20:00 PM Scheduled Provider:KONG PEPE PA-C Location:[facility] Appointment Type:URO Office Visit [facility] evaluation noteNo assessment information available [facility] Work Phone: Evaluation note* Diagnosis BPH with obstruction/lower urinary tract symptoms Hypertrophy of prostate with urinary obstruction and other lower urinary tract symptoms (LUTS) Dysuria [facility]* Diagnosis Fall, initial encounter- Primary Shortness of breath Tachycardia Tachycardia, unspecified [facility] Diagnosis Dysuria Frequency of micturition Urinary frequency documented in this encounter [facility] note* Diagnosis Type 2 diabetes mellitus with stage 3a chronic kidney disease, with long-term current use of insulin (HCC) ([facility]) documented in this encounter [facility]* Diagnosis Acute right-sided low back pain without sciatica documented in this encounter [facility]* Diagnosis Type 2 diabetes mellitus with stage 3a chronic kidney disease, with long-term current use of insulin (HCC) ([facility])- Primary Gastroesophageal reflux disease without esophagitis Esophageal reflux Acquired hypothyroidism ([facility]) Unspecified hypothyroidism documented in this encounter [facility] Healthcare[facility] note* Diagnosis Acute exacerbation of chronic obstructive pulmonary disease (COPD) ([facility])- Primary Obstructive chronic bronchitis with exacerbation Interstitial lung disease ([facility]) Postinflammatory pulmonary fibrosis Panlobular emphysema ([facility]) Other emphysema Polypharmacy Issue of repeat prescriptions documented in this encounter [facility] Healthcare[facility] note* Diagnosis Benign essential hypertension ([facility]) Essential hypertension, benign Hypertensive nephropathy ([facility]) Unspecified hypertensive kidney disease with chronic kidney disease stage I through stage IV, or unspecified Stage 3a chronic kidney disease ([facility]) ([facility]) Microalbuminuria Proteinuria Type 2 diabetes mellitus with stage 3a chronic kidney disease, with long-term current use of insulin (HCC) ([facility]) Mixed hyperlipidemia ([facility]) Mixed hyperlipidemia Hyperuricemia Other abnormal blood chemistry Polypharmacy Issue of repeat prescriptions Chronic respiratory failure with hypoxia ([facility]) Ex-smoker Personal history of tobacco use, presenting hazards to health Overweight Infrarenal abdominal aortic aneurysm, without rupture ([facility]) Atherosclerosis of aorta ([facility]) Atherosclerosis of aorta documented in this encounter [facility] HealthcareHistory general Narrative - Reported* Type Description Date Medical History high cholestrol Medical History high blood pressure Medical History acid reflux Surgical History hemorrhoidectomy Hospitalization History acid reflux - observatio n [facility] Other History general Narrative - Reported* Type Description Date Medical History high cholestrol Medical History high blood pressure Medical History acid reflux Surgical History hemorrhoidectomy Surgical History Laser Surgery on prostate Hospitalization History acid reflux - observatio n [facility] Other Hospital course Narrative No data available for this section [facility] progress note No data available for this section [facility] [place] Summary Purpose Family History No Family History [...] section and content) DATE CREATED AUTHOR 08/12/2021 [facility] dical Specialist DATE CREATED AUTHOR AUTHOR'S ORGANIZ ATION 03/15/2022 [facility] DATE CREATED AUTHOR AUTHOR'S ORGANIZ ATION 07/01/2022 [facility] DATE CREATED AUTHOR AUTHOR'S ORGANIZ ATION 07/04/2022 [facility] DATE CREATED AUTHOR AUTHOR'S ORGANIZ ATION 12/02/2022 [facility] [facility] DATE CREATED AUTHOR AUTHOR'S ORGANIZ ATION 02/24/2023 [facility] DATE CREATED AUTHOR AUTHOR'S ORGANIZ ATION 01/05/2024 [facility] EPIC REASON FOR VISIT [...] Active Oumar Haynes MD Attending Provider Active [employer] Relationship Specialty Start Date End Date Clayton Mcfadden MD [address] [place] [address] PCP - General 03/01/22 [employer] Relationship Specialty Start Date End Date Clayton Mcfadden MD [address] [place] [address] PCP - General 03/01/22 [employer] Relationship Specialty Start Date End Date Clayton Mcfadden MD [address] [place] [address] (Fax) PCP - ACO Reach 07/13/22 Clayton Mcfadden MD [address] [place] [address] PCP - General Family Medicine 08/03/22 Briseida Paez, RN Registered Nurse Family Medicine 03/16/23 [employer] Relationship Specialty Start Date End Date Clayton Mcfadden MD [address] [place] [address] (Fax) PCP - ACO Reach 07/13/22 Clayton Mcfadden MD [address] [place] [address] (Fax) PCP - General Family Medicine 08/03/22 Briseida Paez, RN Registered Nurse Family Medicine 03/16/23 [employer] Relationship Specialty Start Date End Date Clayton Mcfadden MD [address] [place] [address] (Fax) PCP - ACO Reach 07/13/22 Clayton Mcfadden MD [address] [place] [address] (Fax) PCP - General Family Medicine 08/03/22 Briseida Paez, RN Registered Nurse Family Medicine 03/16/23 [employer] Relationship Specialty Start Date End Date Clayton Mcfadden MD [address] [place] [address] (Fax) PCP - ACO Reach 07/13/22 Clayton Mcfadden MD [address] [address] (Fax) PCP - General Family Medicine 08/03/22 Briseida Paez RN Registered Nurse Family Medicine 03/16/23 [employer] Relationship Specialty Start Date End Date Clayton Mcfadden MD [address] [place] [address] (Fax) PCP - ACO Reach 07/13/22 Clayton Mcfadden MD [address] [place] [address] PCP - General Family Medicine 08/03/22 Briseida Paez RN Registered Nurse Family Medicine 03/16/23 [employer] Relationship Specialty Start Date End Date Clayton Mcfadden MD [address] [place] [address] (Fax) PCP - ACO Reach 07/13/22 Clayton Mcfadden MD [address] [place] [address] PCP - General Family Medicine 08/03/22 Briseida [...] BE BASED ON THE PRIMARY CLINICAL RECORDS. [employer] [facility]. provides no warranty or guarantee of the accuracy or completeness of information in this document.
[2024-03-24 16:21] LABS: Estimated Average Glucose 140 mg/dL; Glycohemoglobin A1C 6.5 % (4.5-6.2)
[2024-03-24 16:34] LABS: Thyroid Stimulating Hormone 0.738 uIU/mL (0.358-3.740); Uric Acid 4.5 mg/dL (3.5-7.2)
== END 2024-03-24 14:49 | disposition home or self-care (01) ==
LOC: LAB 14:50
PROVIDERS: PCP Family Medicine; Visit Provider Family Medicine
DX: E11.22 Type 2 diabetes mellitus with diabetic chronic kidney disease (principal); Z79.4 Long term (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 of insulin; E03.9 Hypothyroidism, unspecified; M1A.49X1 Other secondary chronic gout, multiple sites, with tophus (tophi); Z51.81 Encounter for therapeutic drug level monitoring
CPT/HCPCS: 36415; 83036; 84443; 84550

== ENCOUNTER 2024-03-24 16:22 | Outpatient (REF) | payer MEDICARE, SELFPAY ==
--- OUTSIDE RECORDS SUMMARY | 2024-03-24 16:34 | XMS_ITS | CCD ---
Author Organization [facility] Care Team Providers Care Vb Developer Name Role Phone Oumar Haynes Unavailable CLAYTON MCFADDEN Primary Care Physician [phone] MD Clayton Mcfadden Primary Care Provider [phone] MD Oumar Haynes Attending Provider Clayton Mcfadden MD Primary Care Provider [phone] KONG PEPE Attending Unavailable KONG PEPE Attending [...] SOSA ., DR THELMA Brown Admitting Unavailable BONNERDALE, DR ULISSES [employer] Unavailable SHAIKH Matilde [...] Hemeyer, MD Edward J Primary Care Provider [phone] SHELBY Duff Attending Provider Horace Jasso Unavailable [phone] 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 Attending Unavailable 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 Admitting Unavailable Clayton Mcfadden Primary Care Unavailable Clayton Mcfadden MD Unavailable Clayton Mcfadden MD Primary Care Provider Briseida Paez RN Unavailable Unavailable Clayton Mcfadden MD Unavailable [phone] Clayton Mcfadden MD Primary Care Provider Briseida Paez RN Unavailable CLAYTON MCFADDEN Attending Unavailable CLAYTON MCFADDEN Attending Unavailable CLAYTON MCFADDEN Attending Unavailable CLAYTON MCFADDEN Attending Unavailable CLAYTON MCFADDEN Attending Unavailable Allergies Allergy Classification Reported Allergen(s) Allergy Type Date of Onset Reaction(s) Facility (13 sources) Sulfamethoxazole / Trimethoprim; Translations: [sulfamethoxazole-tr imethoprim] Drug Allergy 3 Weal (disorder), Rash [facility] (2 sources) Tetracycline; Translations: [tetracycline] Drug Allergy Finding reported by subject or history provider (finding) [facility] (12 sources) Erythromycin Drug Allergy 8 Nausea And Vomiting [facility] (12 sources) levoFLOXacin Drug Allergy 3 Diarrhea [facility] Work Phone: (1 source) Sulfamethoxazole / Trimethoprim Drug Allergy [facility] (10 sources) metFORMIN Drug Allergy 3 [facility] (10 sources) Erythromycin Base Drug Allergy 3 Nausea Only [facility] Healthcare Medications Current Medications Medication Drug Class(es) Dates Sig (Normalized) Sig (Original) [id number] 200 actuat albuterol 0.09 mg/actuat metered dose [...] exacerbation of chronic obstructive pulmonary disease (COPD) ([facility]) Take 1 tablet (500 mg) by mouth [...] with long-term current use of insulin (HCC) ([facility]) Sliding scale 3 times daily with meals; 141-200=3u, 201-250=5u, 251-300=8u, >300=12u 15 mL 3 11/12/2023 Active Start: 11-12-2023 insulin aspart (NovoLOG) 100 UNIT/ML injection Indications: Type 2 diabetes mellitus with stage 3a chronic kidney disease, with long-term current use of insulin (HCC) ([facility]) Sliding scale 3 times daily with meals; [...] week(s), # 28 tab(s), Refills(s) 0, Pharmacy: [facility]/pharmacy #[id number], 180, cm, 11/23/21 10:01:00 [...] Start: 11-23-2021 take 1 capsule by mo [facility] once daily levothyroxine 88 mcg (0.088 mg) oral capsule 88 mcg = 1 cap(s), Oral, Daily, # 30 cap(s), Refills(s) 0 Start Date: 11/23/21 Status: Ordered take 1 tablet by [facility] once daily levothyroxine (SYNTHROID) 88 MCG [...] 05/12/19 Status: Ordered take 1 capsule by [facility] every twenty-four hours Omeprazole 20 MG [...] nasal canula 0 Active polyethylene glycol 3350 80356 mg powder for oral solution (9 sources) Osmotic Laxative polyethylene gl ycol, PEG, 3350 (Glycolax) 17 GM/SCOOP powder Indications: Constipation Take 17 g by mouth Daily Active polymyxin b 56154 unt/ml / trimethoprim 1 mg/ml ophthalmic solution (2 sources) Dihydrofolate Reductase Inhibitor Antibacterial, Polymyxin-class Antibacterial Start: 12-08-19 08 take 1 drop(s) into the eye(s) every four hours trimethoprim-polymyx in b (POLYTRIM) 04843-8.1 UNIT/ML-% ophthalmic solution Apply 1 drop to [...] disease (11 sources) Atherosclerotic heart disease of [place] coronary artery without angina pectoris; Translations: [Coronary [...] 08-03-2022 08-03-2022 Chronic Other aftercare (1 source) 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; Translations: [HALF-WAY CURRENT USE OF ASPIRIN] Onset: 05-03-2022 Episodic Other aftercare (1 source) 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; Translations: [OTH HALF-WAY CURRENT DRUG THERAPY] Onset: 05-03-2022 Episodic Other aftercare (1 source) 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; Translations: [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] Onset: 05-03-2022 Episodic Other aftercare (14 sources) Polypharmacy ; Translations: [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] Onset: 08-10-2019 09-25-2022 Episodic [...] Long-term current use of inhaled steroid; Translations: [care home (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 of inhaled steroids] Onset: 09-12-2023 [...] UA Negative Negative - 4(70) +++ mg/dL [facility] Blood, UA Negative Negative - 50 Silver/mcL [facility] Clarity, UA Clear [facility] Color, UA Light Yellow [facility] Glucose, UA Negative Negative - 2000(110) ++++ mg/dL [facility] Interpretation and review of laboratory results Normal [facility] Ketones, UA Negative Negative - 160(16) ++++ mg/dL [facility] Leukocytes, UA Negative Negative - 500+++ Ava/mcL [facility] Nitrite, UA Negative Negative - Positive [facility] pH, UA 6 5 - 9 [facility] Protein, UA Negative Negative - 2000(20) ++++ mg/dL [facility] Spec Grav, UA 1.005 1 - 1.03 [facility] Urobilinogen, UA 0.2 0.2 - 12 mg/dL [facility] MLR HEMOGLOBIN A1Con 024 Glucose [Mass/Vol] 117 mg/dL [facility] HbA1c (Bld) [Mass fraction] 5.7 % 4.5 - 6.2 % [facility] Comment on above: ADA RECOMMENDED LIMI T 4.0 - 6.0 ADA THERAPEUTIC TARGET < 7.0 ACTION SUGGESTED > 7.0 [facility] US aortaon 01-31-2023 US aorta [facility] [place] [address] Ultrasound Report Signed Patient: Chema Childs SR MR#: [id number] : 1940 Acct:[id number] Age/Sex: 82 / M ADM Date: 01/31/23 Loc: [facility] Room: Type: [facility] Attending Dr: 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 Ordering Provider: 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 APRN Date of [...] Horace Jasso MD01/31/2023 11:09 AM Dictation Location: [place] [address] Tech: Gabriela Hoyt Transcribed By: GOYO 01/31/231108 Dictated By: Horace Jasso MD 01/31/236 Signed By: 01/31/231108 [facility] Cult,Urineon 12-02-2022 Cult,Urine Specimen Description .CLEAN CATCH URINE Culture NO GROWTH Report Status FINAL 12/02/2022 [facility] Comment on above: Performed By: #### U #### [facility] [address] [place] [address] Sulphate Tester: Sandip Smith MD [facility] [address] [place] [address] [place] [address] Sulphate Tester: Ulisses Gaines MD OPERATIVE REPORTon 3 OPERATIVE REPORT [address] [address] OPERATIVE REPORT PATIENT NAME: CHEMA CHILDS : 1940 MED REC NO: [id number] ROOM: ACCOUNT NO: [id number] ADMIT DATE: 10/03/2022 PROVIDER: Erica Veras DATE OF PROCEDURE: 10/03/2022 SURGEON: Dr. Erica Veras. ANNUAL GIVING DIRECTOR: None. PREOPERATIVE DIAGNOSES: 1. BPH with lower urinary tract symptoms. 2. Urinary frequency. 3. Urinary urgency. 4. Urinary weak stream. POSTOPERATIVE DIAGNOSES: 1. BPH with lower urinary tract symptoms. 2. Urinary frequency. 3. Urinary urgency. 4. Urinary weak stream. PROCEDURES PERFORMED: Photoselective vaporization of the prostate with GreenLight laser XPS. ANESTHESIA: General. COMPLICATIONS: None. ESTIMATED BLOOD LOSS: Minimal. SPECIMENS: None. PROSTHESIS: A 22-Montenegrin Gould catheter. DISPOSITION: Stable. FINDINGS: Trilobar hyperplasia of the prostate. INDICATIONS: This patient is an 82-year-old male with extensive lower urinary tract symptoms, here now for definitive therapy in the form of PVP GreenLight DESCRIPTION OF PROCEDURE: The patient was taken back to the operating room after informed consent including all risks, benefits, and alternatives were obtained. The patient was transferred from the [facility] onto the operating room table, where he was induced under general anesthesia, and given IV Ancef for preoperative antibiotic prophylaxis. To begin the case, he was prepped and draped in the normal sterile fashion, and placed in the dorsal lithotomy. He had a 24-Montenegrin sheath with a 30-degree lens passed through [...] then removed the scope and inserted a 22-Montenegrin three-way Gould catheter and hand irrigated to clear. He was then awoken from general anesthesia, transferred to the [facility], and taken to the PACU in satisfactory condition by Nursing and Anesthesia Teams. PLAN: The patient will be discharged home per PACU criterion and follow up with us in [id number] days for Gould catheter removal. ERICA RITO [email or web address] Doc#: [id number] CC: Normal [facility] Cult,Urineon 08-29-2022 Cult,Urine Specimen Description .CLEAN CATCH URINE Culture NO GROWTH Report Status FINAL 08/29/2022 Normal [facility] Comment on above: Performed By: #### U RC #### [address] [address] Sulphate Tester: Sandip Smith MD [facility] [address] [place] [address] [place] [address] Sulphate Tester: Ulisses Gaines MD Urinalysis w/ Microon 2022 Bacteria 1+ Abnormal NONE [facility] Comment on above: Performed By: #### U AMIC #### [facility] [address] [place] [address] Sulphate Tester: Ulisses Gaines MD Bilirubin, SemiQt,Ur Negative Normal NEG [facility] Comment on above: Performed By: #### U AMIC #### [facility] [address] [place] [address] [place] [address] Sulphate Tester: Ulisses Gaines MD Blood, Urine Negative Normal NEG [facility] Comment on above: Performed By: #### U AMIC #### [facility] [address] [place], [place] [id number] Sulphate Tester: Ulisses Gaines MD Clarity (U) Clear Normal CLEAR [facility] Comment on above: Performed By: #### U AMIC #### [facility] [address] [place] [address] Dr[place], [place] [id number] Sulphate Tester: Ulisses Gaines MD Color (U) Yellow Normal YEL [facility] Comment on above: Performed By: #### U AMIC #### [facility] [address] [place] [address] Dr[place], [place] [id number] Sulphate Tester: Ulisses Gaines MD Epithelial cells LM Ql (Urine sed) 0 TO 2 Normal 0-5 [facility] Comment on above: Performed By: #### U AMIC #### [facility] [address] [place] [address] Dr[place], [place] [id number] Sulphate Tester: Ulisses Gaines MD Glucose Ql (U) Negative Normal NEG [facility] Comment on above: Performed By: #### U AMIC #### [facility] [address] [place] [address] Dr[place], [place] [id number] Sulphate Tester: Ulisses Gaines MD Ketones Ql (U) Negative Normal NEG [facility] Comment on above: Performed By: #### U AMIC #### [facility] [address] [place] [address] Dr[place], [place] [id number] Sulphate Tester: Ulisses Gaines MD Leukocyte esterase Test strip Ql (U) Negative Normal NEG [facility] Comment on above: Performed By: #### U AMIC #### [facility] [address] [place] [address] Dr[place], [place] [id number] Sulphate Tester: Ulisses Gaines MD Nitrite,Ur Negative Normal NEG [facility] Comment on above: Performed By: #### U AMIC #### [facility] [address] [place] [address] Dr[place], [place] [id number] Sulphate Tester: Ulisses Gaines MD PH,Ur 6.0 Normal 5.0-9.0 [facility] Comment on above: Performed By: #### U AMIC #### [facility] [address] [place], [place] [id number] Sulphate Tester: Ulisses Gaines MD Protein Ql (U) Negative Normal NEG [facility] Comment on above: Performed By: #### U AMIC #### [address] [place], [place] [id number] Sulphate Tester: Ulisses Gaines MD Spec. Dania,Ur 1.015 Normal 1.010-1.020 [facility] Comment on above: Performed By: #### U AMIC #### [address] [place], [place] 905[address]83 Sulphate Tester: Ulisses Gaines MD Urine RBC's None Normal 0-2 [facility] Comment on above: Performed By: #### U AMIC #### [address] [place], [place] [id number] Sulphate Tester: Ulisses Gaines MD Urine WBC's 0 TO 2 Normal 0-5 [facility] Comment on above: Performed By: #### U AMIC #### [facility] [address] [place] [address] Dr[place], [place] [id number] Sulphate Tester: Ulisses Gaines MD Urobilinogen,Ur Normal Normal NORM [facility] Comment on above: Performed By: #### U AMIC #### [address] [place] [address] Sulphate Tester: Ulisses Gaines MD Cult,Urineon 08-10-2022 Cult,Urine Specimen Description .CLEAN CATCH URINE Culture NO GROWTH Report Status FINAL 08/10/2022 Normal [facility] Comment on above: Performed By: #### U RC #### [facility] [address] [place] [address] Sulphate Tester: Sandip Smith MD [facility] [address] [place] [address] Sulphate Tester: Ulisses Gaines MD HEMOGLOBINon 07-03-2022 Hemoglobin (Bld) [Mass/Vol] 13.6 g/dL Critically low 14.0-18.0 [facility] Comment on above: Performed By: #### P OCGLUC #### [facility] [address] [place], [place] [address] CHEST WO CONon [...] PAULINA BOWLES Date: 2022-06-26 16:34 Normal [facility] PULMONARY FUNCTION TESTon PULMONARY FUNCTION [...] oxygen. Clinical correlation is required. Normal [facility] Cult,Urineon 06-15-2022 Cult,Urine Specimen Description .CLEAN CATCH URINE Culture NO GROWTH Report Status FINAL 06/15/2022 Normal [facility] Comment on above: Performed By: #### U RC #### [facility] [address] [place] [address] Sulphate Tester: Sandip Smith MD [facility] [address] [facility] [place] [address] Sulphate Tester: Ulisses Gaines MD CBC AUTO DIFFon 04-19-2022 BASO # 0.0 103/ul Normal 0.0-0.1 [facility] Comment on above: Performed By: #### L ACT #### [facility] [address] [place] [address] Dr. Kerrie Stark Basophils/100 WBC (Bld) 0.2 % Normal 0.2-2.0 [facility] Comment on above: Performed By: #### L ACT #### [facility] [address] [place] [address] Dr. Kerrie Stark EO # 0.0 103/ul Normal 0.0-0.7 [facility] Comment on above: Performed By: #### L ACT #### [facility] [address] [place] [address] Dr. Kerrie Stark Eosinophils/100 WBC (Bld) 0.2 % Critically low 0.9-7.0 [facility] Comment on above: Performed By: #### L ACT #### [facility] [address] [place] [address] Dr. Kerrie Stark Erythrocyte distribution width (RBC) [Ratio] 13.3 % Normal 11.0-15.0 [facility] Comment on above: Performed By: #### L ACT #### [facility] [address] [place] [address] Dr. Kerrie Stark Hematocrit (Bld) [Volume fraction] 38.8 % Critically low 42.0-54.0 [facility] Comment on above: Performed By: #### L ACT #### [facility] [address] [place] [address] Dr. Kerrie Stark Hemoglobin (Bld) [Mass/Vol] 13.1 g/dL Critically low 14.0-18.0 [facility] Comment on above: Performed By: #### L ACT #### [facility] [address] [place] [address] Dr. Kerrie Stark IG # 0.35 10e3/ul Critically high 0.00-0.03 [facility] Comment on above: Performed By: #### L ACT #### [facility] [address] [place] [address] Dr. Kerrie Stark IG % 2.6 % Critically high 0.0-0.5 [facility] Comment on above: Performed By: #### L ACT #### [facility] [address] [place] [address] Dr. Kerrie Stark LYMPH # 1.3 103/ul Normal 1.2-3.8 [facility] Comment on above: Performed By: #### L ACT #### [facility] [address] [place] [address] Dr. Kerrie Stark Lymphocytes/100 WBC (Bld) 9.7 % Critically low 20.5-60.0 [facility] Comment on above: Performed By: #### L ACT #### [facility] [address] [place] [address] Dr. Kerrie Stark MANUAL DIFF REQ NO Normal [facility] Comment on above: Performed By: #### L ACT #### [facility] [address] [place] [address] Dr. Kerrie Stark MCH (RBC) [Entitic mass] 32.8 pg Normal 25.9-34.0 [facility] Comment on above: Performed By: #### L ACT #### [facility] [address] [place] [address] Dr. Kerrie Stark MCHC (RBC) [Mass/Vol] 33.8 g/dL Normal 29.9-35.2 [facility] Comment on above: Performed By: #### L ACT #### [facility] [address] [place] [address] Dr. Kerrie Stark MCV (RBC) [Entitic vol] 97.2 fL Critically high 80.0-94.0 [facility] Comment on above: Performed By: #### L ACT #### [facility] [address] [place] [address] Dr. Kerrie Stark MONO # 0.8 103/ul Normal 0.3-0.8 [facility] Comment on above: Performed By: #### L ACT #### [facility] [address] [place] [address] Dr. Kerrie Stark Monocytes/100 WBC (Bld) 5.9 % Normal 1.7-12.0 [facility] Comment on above: Performed By: #### L ACT #### [facility] [address] [place] [address] Dr. Kerrie Stark NEUT # 10.8 103/ul Critically high 1.4-6.5 [facility] Comment on above: Performed By: #### L ACT #### [facility] [address] [place] [address] Dr. Kerrie Stark Neutrophils/100 WBC (Bld) 81.4 % Critically high 43.0-75.0 [facility] Comment on above: Performed By: #### L ACT #### [facility] [address] [place] [address] Dr. Kerrie Stark Platelet mean volume (Bld) [Entitic vol] 10.4 fL Normal 9.5-13.5 [facility] Comment on above: Performed By: #### L ACT #### [facility] [address] [place] [address] [address] Kerrie Stark PLT 158 103/ul Normal 150-450 [facility] Comment on above: Performed By: #### L ACT #### [facility] [address] [place] [address] [address] Kerrie Stark RBC 3.99 106/ul Critically low 4.70-6.10 [facility] Comment on above: Performed By: #### L ACT #### [facility] [address] [place] [address] [address] Kerrie Stark WBC 13.2 103/ul Critically high 4.0-11.0 [facility] Comment on above: Performed By: #### L ACT #### [facility] [address] [place] [address] [address] Kerrie Stark GLYCOHEMOGLOBIN A1Con 2022 ADA RECOMMENDATION SEE BELOW Normal [facility] Comment on above: Result Comment: ADA RECOMMENDED LIMIT 4.0 - 6.0 ADA THERAPEUTIC TARGET < 7.0 ACTION SUGGESTED > 7.0 Performed By: #### P OCGLUC #### [facility] [address] [place] [address] Dr. Kerrie Stark Glucose [Mass/Vol] 206 mg/dL Normal [facility] Comment on above: Performed By: #### P OCGLUC #### [facility] [address] [place] [address] [address] Kerrie Stark HbA1c (Bld) [Mass fraction] 8.8 % Critically high 4.5-6.2 [facility] Comment on above: Performed By: #### P OCGLUC #### [facility] [address] [place] [address] Dr. Kerrie Stark LIPID PROFILEon 04-19-2022 CHOL-HDL RATIO NORM SEE BELOW Normal [facility] Comment on above: Result Comment: 3.3 - 4.4 LOW RISK 4.4 - 7.1 AVERAGE RISK 7.1 - 11.0 MODERATE RISK >11.0 HIGH RISK Performed By: #### D DIM #### [facility] [address] [place] [address] [address] Kerrie Stark Cholesterol [Mass/Vol] 134 mg/dL Normal <=200 [facility] Comment on above: Performed By: #### D DIM #### [facility] [address] [place] [address] [address] Kerrie Stark Cholesterol in HDL [Mass/Vol] 46 mg/dL Normal 40-60 [facility] Comment on above: Performed By: #### D DIM #### [facility] [address] [place] [address] [address] Kerrie Stark Cholesterol in LDL [Mass/Vol] 65.8 mg/dL Normal [facility] Comment on above: Performed By: #### D DIM #### [facility] [address] [place] [address] Dr. Kerrie Stark Cholesterol.total/Chol esterol in HDL [Mass ratio] 2.9 {ratio} Normal [facility] Comment on above: Performed By: #### D DIM #### [facility] [address] [place] [address] [address] Kerrie Stark HDL NORMAL > or = 60 mg/dl - LOW CARDIOVASCULAR RISK <40 mg/dl - HIGH CARDIOVASCULAR RISK Normal [facility] Comment on above: Performed By: #### D DIM #### [facility] [address] [place] [address] [address] Kerrie Stark LDL CALC NORMAL SEE BELOW Normal [facility] Comment on above: Result Comment: <100 mg/dl OPTIMAL 100 - 129 mg/dl NEAR OR ABOVE OPTIMAL 130 - 159 mg/dl BORDERLINE HIGH 160 - 189 mg/dl HIGH >190 mg/dl VERY HIGH Performed By: #### D DIM #### [facility] [address] [place] [address] [address] Kerrie Stark Triglyceride [Mass/Vol] 111 mg/dL Normal <=150 [facility] Comment on above: Performed By: #### D DIM #### [facility] [address] [place] [address] [address] Kerrie Stark VLDL CALC 22.2 mg/dL Normal [facility] Comment on above: Performed By: #### D DIM #### [facility] [address] [place] [address] Dr. Kerrie Stark PROF 14(COMP METB)on 023 Albumin [Mass/Vol] 2.6 g/dL Critically low 3.4-5.[address] [facility] Comment on above: Performed By: #### D DIM #### [facility] [address] [place] [address] Dr. Kerrie Stark Albumin/Globulin [Mass ratio] 0.8 {ratio} Normal [facility] Comment on above: Performed By: #### D DIM #### [facility] [address] [place] [address] Dr. Kerrie Stark ALP [Catalytic activity/Vol] 49 U/L Normal 46-116 [facility] Comment on above: Performed By: #### D DIM #### [facility] [address] [place] [address] Dr. Kerrie Stark ALT [Catalytic activity/Vol] 27 U/L Normal 16-63 [facility] Comment on above: Performed By: #### D DIM #### [facility] [address] [place] [address] Dr. Kerrie Stark Anion gap [Moles/Vol] 12.1 mmol/L Normal Th [facility] Comment on above: Performed By: #### D DIM #### [facility] [address] [place] [address] Dr. Kerrie Stark AST [Catalytic activity/Vol] 19 U/L Normal 15-37 [facility] Comment on above: Performed By: #### D DIM #### [facility] [address] [place] [address] Dr. Kerrie Stark Bilirubin [Mass/Vol] 0.6 mg/dL Normal 0.2-1.0 [facility] Comment on above: Performed By: #### D DIM #### [facility] [address] [place] [address] Dr. Kerrie Stark Calcium [Mass/Vol] 9.0 mg/dL Normal 8.5-10.1 [facility] Comment on above: Performed By: #### D DIM #### [facility] [address] [address] [address] Kerrie Stark Chloride [Moles/Vol] 102 mmol/L Normal 98-107 [facility] Comment on above: Performed By: #### D DIM #### [facility] [address] [address] [address] Kerrie Stark CO2 [Moles/Vol] 27.0 mmol/L Normal 21.0-32.0 [facility] Comment on above: Performed By: #### D DIM #### [facility] [address] [address] [address] Kerrie Stark Creatinine [Mass/Vol] 0.90 mg/dL Normal 0.70-1.30 [facility] Comment on above: Performed By: #### D DIM #### [facility] [address] [place] [address] Dr. Kerrie Stark EGFR-AF TOGOLESE >60 Normal >=60 [facility] Comment on above: Performed By: #### D DIM #### [facility] [address] [place] [address] Dr. Kerrie Stark EGFR-NON AF TOGOLESE >60 Normal >=60 [facility] Comment on above: Performed By: #### D DIM #### [facility] [address] [place] [address] Dr. Kerrie Stark Globulin (S) [Mass/Vol] 3.2 g/dL Normal [facility] Comment on above: Performed By: #### D DIM #### [facility] [address] [address] [address] Kerrie Stark Glucose [Mass/Vol] 104 mg/dL Normal 74-106 [facility] Comment on above: Performed By: #### D DIM #### [facility] [address] [place] [address] Dr. Kerrie Stark Potassium [Moles/Vol] 4.1 mmol/L Normal 3.5-5.1 [facility] Comment on above: Performed By: #### D DIM #### [facility] [address] [address] [address] Kerrie Stark Protein [Mass/Vol] 5.8 g/dL Critically low 6.4-8.[address] [facility] Comment on above: Performed By: #### D DIM #### [facility] [address] [address] [address] Kerrie Stark Sodium [Moles/Vol] 137 mmol/L Normal 136-145 [facility] Comment on above: Performed By: #### D DIM #### [facility] [address] [address] [address] Kerrie Stark Urea nitrogen [Mass/Vol] 31.0 mg/dL Critically high 7.0-18.0 [facility] Comment on above: Performed By: #### D DIM #### [facility] [address] [place] [address] Dr. Kerrie Stark Urea nitrogen/Creatinine [Mass ratio] 34.4 mg/mg Normal [facility] Comment on above: Performed By: #### D DIM #### [facility] [address] [address] [address] Kerrie Stark TSHon 04-19-2022 TSH 0.699 uIU/mL Normal 0.358-3.740 [facility] Comment on above: Performed By: #### D DIM #### [facility] [address] [address] [address] Kerrie Stark VITAMIN D 25 OHon 04-19-2022 VIT D 25-OH 53.9 ng/mL Normal [facility] Comment on above: Performed By: #### D DIM #### [facility] [address] [address] [address] Kerrie Stark VIT D RANGES SEE BELOW Normal [facility] Comment on above: Result Comment: <20 ng/mL Vit D deficient 20 - <30 ng/mL Vit D insufficient 30 - 100 ng/mL Vit D sufficient >100 ng/mL Potential Toxicity Performed By: #### D DIM #### [facility] [address] [id number] Kerrie Stark CBC W MANUAL DIFFon 04-08-19 23 ATYPICAL LYMPH # Normal [facility] Comment on above: Performed By: #### L ACT #### [facility] [address] [address] [address] Kerrie Stark ATYPICAL LYMPH % Normal [facility] Comment on above: Performed By: #### L ACT #### [facility] [address] [address] [address] Kerrie Stark BAND # 0.0 103/ul Normal 0.0-0.3 [facility] Comment on above: Performed By: #### L ACT #### [facility] [address] [place] [address] Dr. Kerrie Stark BAND % 0 % Normal 0-5 [facility] Comment on above: Performed By: #### L ACT #### [facility] [address] [place] [address] Dr. Kerrie Stark BASOM # 0.00 103/ul Normal 0.00-0.10 [facility] Comment on above: Performed By: #### L ACT #### [facility] [address] [place] [address] Dr. Kerrie Stark BASOM % 0.0 % Critically low 0.2-2.0 [facility] Comment on above: Performed By: #### L ACT #### [facility] [address] [place] [address] Dr. Kerrie Stark BLAST # Normal [facility] Comment on above: Performed By: #### L ACT #### [facility] [address] [place] [address] Dr. Kerrie Stark BLAST % Normal [facility] Comment on above: Performed By: #### L ACT #### [facility] [address] [place] [address] Dr. Kerrie Stark CORRECTED WBC Normal 4.0-11.0 The [facility] Comment on above: Performed By: #### L ACT #### [facility] [address] [place] [address] Dr. Kerrie Stark EOS # 0.00 103/ul Normal 0.00-0.70 [facility] Comment on above: Performed By: #### L ACT #### [facility] [address] [address] [address] Kerrie Stark EOS% 0.0 % Critically low 0.9-7.0 [facility] Comment on above: Performed By: #### L ACT #### [facility] [address] [address] [address] Kerrie Stark HCT 36.7 % Critically low 42.0-54.0 [facility] Comment on above: Performed By: #### L ACT #### [facility] [address] [place] [address] Dr. Kerrie Stark HGB 12.5 g/dl Critically low 14.0-18.0 [facility] Comment on above: Performed By: #### L ACT #### [facility] [address] [place] [address] Dr. Kerrie Stark LYMPHM # 0.22 103/ul Critically low 1.20-3.80 The [facility] Comment on above: Performed By: #### L ACT #### [facility] [address] [place] [address] Dr. Kerrie Stark LYMPHM% 2.0 % Critically low 20.5-60.0 [facility] Comment on above: Performed By: #### L ACT #### [facility] [address] [place] [address] Dr. Kerrie Stark MCH 32.6 pg Normal 25.9-34.0 [facility] Comment on above: Performed By: #### L ACT #### [facility] [address] [address] [address] Kerrie Stark MCHC 34.1 g/dl Normal 29.9-35.2 [facility] Comment on above: Performed By: #### L ACT #### [facility] [address] [place] [address] Dr. Kerrie Stark MCV 95.8 fL Critically high 80.0-94.0 [facility] Comment on above: Performed By: #### L ACT #### [facility] [address] [place] [address] Dr. Kerrie Stark METAMYELOCYTE # Normal [facility] Comment on above: Performed By: #### L ACT #### [facility] [address] [address] [address] Kerrie Stark METAMYELOCYTE % Normal [facility] Comment on above: Performed By: #### L ACT #### [facility] [address] [address] [address] Kerrie Stark MONOM# 0.34 103/ul Normal 0.30-0.80 [facility] Comment on above: Performed By: #### L ACT #### [facility] [address] [address] [address] Kerrie Stark MONOM% 3.0 % Normal 1.7-12.0 [facility] Comment on above: Performed By: #### L ACT #### [facility] [address] [place] [address] Dr. Kerrie Stark MPV 10.9 fL Normal 9.5-13.5 [facility] Comment on above: Performed By: #### L ACT #### [facility] [address] [place] [address] Dr. Kerrie Stark MYELOCYTE # 0.1 103/ul Normal [facility] Comment on above: Performed By: #### L ACT #### [facility] [address] [place] [address] Dr. Kerrie Stark MYELOCYTE % 1 % Normal [facility] Comment on above: Performed By: #### L ACT #### [facility] [address] [place] [address] Dr. Kerrie Stark NRBC Normal [facility] Comment on above: Performed By: #### L ACT #### [facility] [address] [address] [address] Kerrie Stark PLT 140 103/ul Critically low 150-450 [facility] Comment on above: Performed By: #### L ACT #### [facility] [address] [place] [address] Dr. Kerrie Stark RBC 3.83 106/ul Critically low 4.70-6.10 [facility] Comment on above: Performed By: #### L ACT #### [facility] [address] [address] [address] Kerrie Stark RDW 12.9 % Normal 11.0-15.0 [facility] Comment on above: Performed By: #### L ACT #### [facility] [address] [place], [place] [address] Dr. Kerrie Stark SEG # 10.53 103/ul Critically high 1.40-6.50 [facility] Comment on above: Performed By: #### L ACT #### [facility] [address] [address] [address] Kerrie Stark SEG % 94.0 % Critically high 43.0-75.0 The [facility] Comment on above: Performed By: #### L ACT #### [facility] [address] [address] [address] Kerrie Stark WBC 11.2 103/ul Critically high 4.0-11.0 [facility] Comment on above: Performed By: #### L ACT #### [facility] [address] [address] [address] Kerrie Stark [facility] SARS-CoV-2 (COVID-19) RNA QUE+probe Ql (Unsp spec) Detected Abnormal NOT DETECTED [facility] Comment on above: Result Comment: This test is not yet approved or cleared by the [place] FDA. When there are no FDA-approved or cleared tests available, and other criteria are met, FDA can make tests available under an emergency access mechanism called an Emergency Use Authorization (EUA). The EUA for this test is supported by the [place] of Health and Human Service's declaration that [...] used). Performed By: #### L ACT #### [facility] [address] [address] [address] Kerrie Stark LACTATE/LACTIC ACIDon 2022 Lactate [Moles/Vol] 1.3 mmol/L Normal 0.4-1.9 [facility] Comment on above: Performed By: #### L ACT #### [facility] [address] [address] [address] Kerrie Stark POINT OF CARE GLUCOSEon 03-22 Glucose [Mass/Vol] 344 mg/dL Critically high 74-106 [facility] Comment on above: Performed By: #### L ACT #### [facility] [address] [address] [address] Kerrie Stark Glucose [Mass/Vol] 242 mg/dL Critically high -106 [facility] Comment on above: Performed By: #### P OCGLUC #### [facility] [address] [address] [address] Kerrie Stark PROCALCITONINon 04-08-2022 Procalcitonin 0.06 ng/mL Normal 0.00-0.08 [facility] Comment on above: Result Comment: . [...] obtained. Performed By: #### D DIM #### [facility] [address] [address] [address] Kerrie Stark PROF 14(COMP METB)on 023 Albumin [Mass/Vol] 2.0 g/dL Critically low 3.4-5.0 [facility] Comment on above: Performed By: #### P OCGLUC #### [facility] [address] [address] [address] Kerrie Stark Albumin/Globulin [Mass ratio] 0.5 {ratio} Normal [facility] Comment on above: Performed By: #### P OCGLUC #### [facility] [address] [address] [address] Kerrie Stark ALP [Catalytic activity/Vol] 61 U/L Normal 46-116 [facility] Comment on above: Performed By: #### P OCGLUC #### [facility] [address] [address] [address] Kerrie Stark ALT [Catalytic activity/Vol] 33 U/L Normal 16-63 [facility] Comment on above: Performed By: #### P OCGLUC #### [facility] [address] [address] [address] Kerrie Stark Anion gap [Moles/Vol] 13.2 mmol/L Normal [facility] Comment on above: Performed By: #### P OCGLUC #### [facility] [address] [address] [address] Kerrie Stark AST [Catalytic activity/Vol] 27 U/L Normal 15-37 [facility] Comment on above: Performed By: #### P OCGLUC #### [facility] [address] [address] [address] Kerrie Stark Bilirubin [Mass/Vol] 0.3 mg/dL Normal 0.2-1.0 [facility] Comment on above: Performed By: #### P OCGLUC #### [facility] [address] [address] [address] Kerrie Stark Calcium [Mass/Vol] 8.7 mg/dL Normal 8.5-10.1 [facility] Comment on above: Performed By: #### P OCGLUC #### [facility] [address] [address] [address] Kerrie Stark Chloride [Moles/Vol] 102 mmol/L Normal 98-107 [facility] Comment on above: Performed By: #### P OCGLUC #### [facility] [address] [address] [address] Kerrie Stark CO2 [Moles/Vol] 22.0 mmol/L Normal 21.0-32.0 [facility] Comment on above: Performed By: #### P OCGLUC #### [facility] [address] [address] [address] Kerrie Stark Creatinine [Mass/Vol] 0.88 mg/dL Normal 0.70-1.30 [facility] Comment on above: Performed By: #### P OCGLUC #### [facility] [address] [address] [address] Kerrie Stark EGFR-AF TOGOLESE >60 Normal >=60 [facility] Comment on above: Performed By: #### P OCGLUC #### [facility] [address] [address] [address] Kerrie Stark EGFR-NON AF TOGOLESE >60 Normal >=60 [facility] Comment on above: Performed By: #### P OCGLUC #### [facility] [address] [address] [address] Kerrie Stark Globulin (S) [Mass/Vol] 3.7 g/dL Normal [facility] Comment on above: Performed By: #### P OCGLUC #### [facility] [address] [address] [address] Kerrie Stark Glucose [Mass/Vol] 266 mg/dL Critically high 74-106 [facility] Comment on above: Performed By: #### P OCGLUC #### [facility] [address] [address] [address] Kerrie Stark Potassium [Moles/Vol] 4.2 mmol/L Normal 3.5-5.1 [facility] Comment on above: Performed By: #### P OCGLUC #### [facility] [address] [address] [address] Kerrie Stark Protein [Mass/Vol] 5.7 g/dL Critically low 6.4-8.[address] [facility] Comment on above: Performed By: #### P OCGLUC #### [facility] [address] [address] [address] Kerrie Stark Sodium [Moles/Vol] 133 mmol/L Critically low 136-[address] [facility] Comment on above: Performed By: #### P OCGLUC #### [facility] [address] [address] [address] Kerrie Stark Urea nitrogen [Mass/Vol] 21.0 mg/dL Critically high 7.0-18.0 [facility] Comment on above: Performed By: #### P OCGLUC #### [facility] [address] [address] [address] Kerrie Stark Urea nitrogen/Creatinine [Mass ratio] 23.9 mg/mg Normal [facility] Comment on above: Performed By: #### P OCGLUC #### [facility] [address] [place] [address] Dr. Kerrie Stark CBC W MANUAL DIFFon 04-07-19 23 ATYPICAL LYMPH # 0.14 103/ul Normal [facility] Comment on above: Performed By: #### L ACT #### [facility] [address] [place] [address] Dr. Kerrie Stark ATYPICAL LYMPH % 1 % Normal [facility] Comment on above: Performed By: #### L ACT #### [facility] [address] [place] [address] Dr. Kerrie Stark BAND # 0.0 103/ul Normal 0.0-0.3 [facility] Comment on above: Performed By: #### L ACT #### [facility] [address] [place] [address] Dr. Kerrie Stark BAND % 0 % Normal 0-5 [facility] Comment on above: Performed By: #### L ACT #### [facility] [address] [place] [address] Dr. Kerrie Stark BASOM # 0.00 103/ul Normal 0.00-0.10 [facility] Comment on above: Performed By: #### L ACT #### [facility] [address] [place] [address] Dr. Kerrie Stark BASOM % 0.0 % Critically low 0.2-2.0 [facility] Comment on above: Performed By: #### L ACT #### [facility] [address] [place] [address] Dr. Kerrie Stark BLAST # Normal [facility] Comment on above: Performed By: #### L ACT #### [facility] [address] [place] [address] Dr. Kerrie Stark BLAST % Normal [facility] Comment on above: Performed By: #### L ACT #### [facility] [address] [place] [address] Dr. Kerrie Stark CORRECTED WBC Normal 4.0-11.0 [facility] Comment on above: Performed By: #### L ACT #### [facility] [address] [place] [address] Dr. Kerrie Stark EOS # 0.00 103/ul Normal 0.00-0.70 [facility] Comment on above: Performed By: #### L ACT #### [facility] [address] [place] [address] Dr. Kerrie Stark EOS% 0.0 % Critically low 0.9-7.0 [facility] Comment on above: Performed By: #### L ACT #### [facility] [address] [place] [address] Dr. Kerrie Stark HCT 35.9 % Critically low 42.0-54.0 [facility] Comment on above: Performed By: #### L ACT #### [facility] [address] [place] [address] Dr. Kerrie tSark HGB 12.0 g/dl Critically low 14.0-18.0 [facility] Comment on above: Performed By: #### L ACT #### [facility] [address] [place] [address] Dr. Kerrie Stark LYMPHM # 0.28 103/ul Critically low 1.20-3.80 [facility] Comment on above: Performed By: #### L ACT #### [facility] [address] [place] [address] Dr. Kerrie Stark LYMPHM% 2.0 % Critically low 20.5-60.0 [facility] Comment on above: Performed By: #### L ACT #### [facility] [address] [place] [address] Dr. Kerrie Stark MCH 32.6 pg Normal 25.9-34.0 [facility] Comment on above: Performed By: #### L ACT #### [facility] [address] [place] [address] Dr. Kerrie Stark MCHC 33.4 g/dl Normal 29.9-35.2 [facility] Comment on above: Performed By: #### L ACT #### [facility] [address] [place] [address] Dr. Kerrie Stark MCV 97.6 fL Critically high 80.0-94.0 [facility] Comment on above: Performed By: #### L ACT #### [facility] [address] [place] [address] Dr. Kerrie Stark METAMYELOCYTE # Normal [facility] Comment on above: Performed By: #### L ACT #### [facility] [address] [place] [address] Dr. Kerrie Stark METAMYELOCYTE % Normal [facility] Comment on above: Performed By: #### L ACT #### [facility] [address] [place] [address] Dr. Kerrie Stark MONOM# 0.00 103/ul Critically low 0.30-0.80 [facility] Comment on above: Performed By: #### L ACT #### [facility] [address] [place] [address] Dr. Kerrie Stark MONOM% 0.0 % Critically low 1.7-12.0 [facility] Comment on above: Performed By: #### L ACT #### [facility] [address] [place] [address] Dr. Kerrie Stark MPV 10.6 fL Normal 9.5-13.5 [facility] Comment on above: Performed By: #### L ACT #### [facility] [address] [place] [address] Dr. Kerrie Stark MYELOCYTE # Normal [facility] Comment on above: Performed By: #### L ACT #### [facility] [address] [address] [address] Kerrie Stark MYELOCYTE % Normal [facility] Comment on above: Performed By: #### L ACT #### [facility] [address] [address] [address] Kerrie Stark NRBC Normal [facility] Comment on above: Performed By: #### L ACT #### [facility] [address] [address] [address] Kerrie Stark PLT 125 103/ul Critically low 150-450 [facility] Comment on above: Performed By: #### L ACT #### [facility] [address] [place] [address] Dr. Kerrie Stark RBC 3.68 106/ul Critically low 4.70-6.10 [facility] Comment on above: Performed By: #### L ACT #### [facility] [address] [place] [address] Dr. Kerrie Stark RDW 13.2 % Normal 11.0-15.0 [facility] Comment on above: Performed By: #### L ACT #### [facility] [address] [place] [address] Dr. Kerrie Stark SEG # 13.77 103/ul Critically high 1.40-6.50 [facility] Comment on above: Performed By: #### L ACT #### [facility] [address] [place] [address] Dr. Kerrie Stark SEG % 97.0 % Critically high 43.0-75.0 [facility] Comment on above: Performed By: #### L ACT #### [facility] [address] [place] [address] Dr. Kerrie Strak TOXIC GRANULATION 2+ Normal [facility] Comment on above: Performed By: #### L ACT #### [facility] [address] [address] [address] Kerrie Stark WBC 14.2 103/ul Critically high 4.0-11.0 [facility] Comment on above: Performed By: #### L ACT #### [facility] [address] [place] [address] Dr. Kerrie Stark Covid-19 PCR ([facility])on 03-22 SARS-CoV-2 (COVID-19) RNA QUE+probe Ql (Unsp spec) Detected Abnormal NOT DETECTED [facility] Comment on above: Result Comment: This test is not yet approved or cleared by the [place] FDA. When there are no FDA-approved or cleared tests available, and other criteria are met, FDA can make tests available under an emergency access mechanism called an Emergency Use Authorization (EUA). The EUA for this test is supported by the [place] of Health and Human Service's declaration that [...] used). Performed By: #### L ACT #### [facility] [address] [place] [address] Dr. Kerrie Stark LACTATE/LACTIC ACIDon 2022 Lactate [Moles/Vol] 1.1 mmol/L Normal 0.4-1.9 [facility] Comment on above: Performed By: #### P OCGLUC #### [facility] [address] [place] [address] Dr. Kerrie Stark POINT OF CARE GLUCOSEon 03-22 Glucose [Mass/Vol] 316 mg/dL Critically high 74-106 [facility] Comment on above: Performed By: #### P OCGLUC #### [facility] [address] [place] [address] Dr. Kerrie Stark Glucose [Mass/Vol] 182 mg/dL Critically high 74-106 [facility] Comment on above: Performed By: #### P OCGLUC #### [facility] [address] [place] [address] Dr. Kerrie Stark Glucose [Mass/Vol] 318 mg/dL Critically high 74-106 [facility] Comment on above: Performed By: #### P OCGLUC #### [facility] [address] [place] [address] Dr. Kerrie Stark PROF 14(COMP METB)on 023 Albumin [Mass/Vol] 1.9 g/dL Critically low 3.4-5.0 [facility] Comment on above: Performed By: #### P OCGLUC #### [facility] [address] [place] [address] Dr. Kerrie Stark Albumin/Globulin [Mass ratio] 0.5 {ratio} Normal [facility] Comment on above: Performed By: #### P OCGLUC #### [facility] [address] [place] [address] Dr. Kerrie Stark ALP [Catalytic activity/Vol] 50 U/L Normal 46-116 [facility] Comment on above: Performed By: #### P OCGLUC #### [facility] [address] [place] [address] Dr. Kerrie Stark ALT [Catalytic activity/Vol] 24 U/L Normal 16-63 [facility] Comment on above: Performed By: #### P OCGLUC #### [facility] [address] [place] [address] Dr. Kerrie Stark Anion gap [Moles/Vol] 12.9 mmol/L Normal [facility] Comment on above: Performed By: #### P OCGLUC #### [facility] [address] [place] [address] Dr. Kerrie Stark AST [Catalytic activity/Vol] 19 U/L Normal 15-37 [facility] Comment on above: Performed By: #### P OCGLUC #### [facility] [address] [place] [address] Dr. Kerrie Stark Bilirubin [Mass/Vol] 0.3 mg/dL Normal 0.2-1.0 [facility] Comment on above: Performed By: #### P OCGLUC #### [facility] [address] [place] [address] Dr. Kerrie Stark Calcium [Mass/Vol] 8.5 mg/dL Normal 8.5-10.1 [facility] Comment on above: Performed By: #### P OCGLUC #### [facility] [address] [address] [address] Kerrie Stark Chloride [Moles/Vol] 103 mmol/L Normal 98-107 [facility] Comment on above: Performed By: #### P OCGLUC #### [facility] [address] [address] [address] Kerrie Stark CO2 [Moles/Vol] 22.2 mmol/L Normal 21.0-32.0 [facility] Comment on above: Performed By: #### P OCGLUC #### [facility] [address] [place] [address] Dr. Kerrie Stark Creatinine [Mass/Vol] 1.17 mg/dL Normal 0.70-1.30 [facility] Comment on above: Performed By: #### P OCGLUC #### [facility] [address] [address] [address] Kerrie Stark EGFR-AF TOGOLESE >60 Normal >=60 [facility] Comment on above: Performed By: #### P OCGLUC #### [facility] [address] [place] [address] Dr. Kerrie Stark EGFR-NON AF TOGOLESE 60 mL/min/1.73m2 Normal >=60 [facility] Comment on above: Performed By: #### P OCGLUC #### [facility] [address] [address] [address] Kerrie Stakr Globulin (S) [Mass/Vol] 3.8 g/dL Normal [facility] Comment on above: Performed By: #### P OCGLUC #### [facility] [address] [address] [address] Kerrie Stark Glucose [Mass/Vol] 283 mg/dL Critically high 74-106 [facility] Comment on above: Performed By: #### P OCGLUC #### [facility] [address] [place] [address] Dr. Kerrie Stark Potassium [Moles/Vol] 4.1 mmol/L Normal 3.5-5.1 [facility] Comment on above: Performed By: #### P OCGLUC #### [facility] [address] [address] [address] Kerrie Stark Protein [Mass/Vol] 5.7 g/dL Critically low 6.4-8.[address] [facility] Comment on above: Performed By: #### P OCGLUC #### [facility] [address] [address] [address] Kerrie Stark Sodium [Moles/Vol] 134 mmol/L Critically low 136-[address] [facility] Comment on above: Performed By: #### P OCGLUC #### [facility] [address] [place] [address] Dr. Kerrie Stark Urea nitrogen [Mass/Vol] 23.0 mg/dL Critically high 7.0-18.0 [facility] Comment on above: Performed By: #### P OCGLUC #### [facility] [address] [place] [address] Dr. Kerrie Stark Urea nitrogen/Creatinine [Mass ratio] 19.7 mg/mg Normal [facility] Comment on above: Performed By: #### P OCGLUC #### [facility] [address] [place] [address] Dr. eKrrie Stark CULTURE SPUTUMon 04-06-2022 CULTURE SPUTUM Isolate 1 Grace albicans Light growth of Normal [facility] Comment on above: Performed By: #### S PUTCX #### [facility] [address] [place] [address] Dr. Kerrie Stark CULTURE URINEon 04-06-2022 CULTURE URINE Culture Observations: NO GROWTH. Normal [facility] Comment on above: Performed By: #### U RCX #### [facility] [address] [address] [address] Kerrie Stark ER URINE PROFILEon 3 Bilirubin Ql (U) Negative Normal NEGATIVE [facility] Comment on above: Performed By: #### P OCGLUC #### [facility] [address] [place] [address] Dr. Kerrie Stark Clarity (U) CLEAR Normal CLEAR [facility] Comment on above: Performed By: #### P OCGLUC #### [facility] [address] [address] [address] Kerrie Stark Color (U) YELLOW Normal YELLOW [facility] Comment on above: Performed By: #### P OCGLUC #### [facility] [address] [address] [address] Kerrie Stark ERUAHCornelio A micrscopic examination will be performed if indicated. Normal [facility] Comment on above: Performed By: #### P OCGLUC #### [facility] [address] [address] [address] Kerrie Stark Glucose Ql (U) Negative Normal NEGATIVE [facility] Comment on above: Performed By: #### P OCGLUC #### [facility] [address] [place] [address] Dr. Kerrie Stark Hemoglobin Ql (U) Negative Normal NEGATIVE [facility] Comment on above: Performed By: #### P OCGLUC #### [facility] [address] [address] [address] Kerrie Stark Ketones Ql (U) Negative Normal NEGATIVE [facility] Comment on above: Performed By: #### P OCGLUC #### [facility] [address] [address] [address] Kerrie Stark LEUKOCYTES Negative Normal NEGATIVE [facility] Comment on above: Performed By: #### P OCGLUC #### [facility] [address] [address] [address] Kerrie Stark Nitrite Ql (U) Negative Normal NEGATIVE [facility] Comment on above: Performed By: #### P OCGLUC #### [facility] [address] [address] [address] Kerrie Stark pH (U) 6.0 [pH] Normal 5-9 [facility] Comment on above: Performed By: #### P OCGLUC #### [facility] [address] [place] [address] Dr. Kerrie Stark Protein (U) [Mass/Vol] 30 mg/dL Abnormal NEGAT LITTLE/ TRACE [facility] Comment on above: Performed By: #### P OCGLUC #### [facility] [address] [address] [address] Kerrie Stark SPEC GRAVITY 1.015 Normal 1.005-<=1.025 [facility] Comment on above: Performed By: #### P OCGLUC #### [facility] [address] [address] [address] Kerrie Stark UR MICRO IND INDICATED Normal [facility] Comment on above: Performed By: #### P OCGLUC #### [facility] [address] [address] [address] Kerrie Stark Urobilinogen Qn (U) 0.2 {Ricky'U}/dL Normal 0.2 - 1. 0 [facility] Comment on above: Performed By: #### P OCGLUC #### [facility] [address] [address] [address] Kerrie Stark POINT OF CARE GLUCOSEon 03-22 Glucose [Mass/Vol] 301 mg/dL Critically high [address] [place] [address] Comment on above: Performed By: #### P OCGLUC #### [facility] [address] [address] [address] Kerrie Stark Glucose [Mass/Vol] 272 mg/dL Critically high [address] [place] [address] Comment on above: Performed By: #### P OCGLUC #### [facility] [address] [address] [address] Kerrie Stark Glucose [Mass/Vol] 191 mg/dL Critically high [address] [place] [address] Comment on above: Performed By: #### P OCGLUC #### [facility] [address] [address] [address] Kerrie Stark Glucose [Mass/Vol] 164 mg/dL Critically high [address] [place] [address] Comment on above: Performed By: #### C BC #### [facility] [address] [address] [address] Kerrie Stark Glucose [Mass/Vol] 128 mg/dL Critically high [address] [place] [address] Comment on above: Performed By: #### P OCGLUC #### [facility] [address] [place] [address] Dr. Kerrie Stark URINE MICROSCOPIC ONLYon BACTERIA SMALL Abnormal NONE SEEN [facility] Comment on above: Performed By: #### P OCGLUC #### [facility] [address] [place] [address] Dr. Kerrie Stark Bacteria identified Cx Nom (U) INDICATED Normal [facility] Comment on above: Performed By: #### P OCGLUC #### [facility] [address] [place] [address] Dr. Kerrie Stark CAST SEEN Abnormal NONE SEEN [facility] Comment on above: Performed By: #### P OCGLUC #### [facility] [address] [place] [address] Dr. Kerrie Stark Crystals LM Nom (Urine sed) NONE SEEN Normal NONE SEEN [facility] Comment on above: Performed By: #### P OCGLUC #### [facility] [address] [place] [address] Dr. Kerrie Stark Epithelial cells LM Ql (Urine sed) RARE Normal NONE SEEN /RARE [facility] Comment on above: Performed By: #### P OCGLUC #### [facility] [address] [place] [address] Dr. Kerrie Stark HYALINE CAST RARE Normal [facility] Comment on above: Performed By: #### P OCGLUC #### [facility] [address] [place] [address] Dr. Kerrie Stark MUCOUS TRACE Abnormal NONE SEEN [facility] Comment on above: Performed By: #### P OCGLUC #### [facility] [address] [place] [address] Dr. Kerrie Stark RBC 0-2 Normal 0-2 [facility] Comment on above: Performed By: #### P OCGLUC #### [facility] [address] [place] [address] Dr. Kerrie Stark WBC 0-2 Abnormal NONE SEEN [facility] Comment on above: Performed By: #### P OCGLUC #### [facility] [address] [place] [address] Dr. Kerrie Stark BNPon 04-05-2022 Natriuretic peptide B (Bld) [Mass/Vol] 394.0 pg/mL Normal <=1,800.0 [facility] Comment on above: Performed By: #### C BC #### [facility] [address] [place] [address] Dr. Kerrie Stark CBC W MANUAL DIFFon 04-05-19 ATYPICAL LYMPH # Normal [facility] Comment on above: Performed By: #### P OCGLUC #### [facility] [address] [place] [address] Dr. Kerrie Stark ATYPICAL LYMPH % Normal [facility] Comment on above: Performed By: #### P OCGLUC #### [facility] [address] [place] [address] Dr. Kerrie Stark BAND # Normal 0.0-0.3 [facility] Comment on above: Performed By: #### P OCGLUC #### [facility] [address] [place] [address] Dr. Kerrie Stark BAND % Normal 0-5 [facility] Comment on above: Performed By: #### P OCGLUC #### [facility] [address] [place] [address] Dr. Kerrie Stark BASOM # 0.00 103/ul Normal 0.00-0.10 [facility] Comment on above: Performed By: #### P OCGLUC #### [facility] [address] [place] [address] Dr. Kerrie Stark BASOM % 0.0 % Critically low 0.2-2.0 [facility] Comment on above: Performed By: #### P OCGLUC #### [facility] [address] [place] [address] Dr. Kerrie Stark BLAST # Normal [facility] Comment on above: Performed By: #### P OCGLUC #### [facility] [address] [place] [address] Dr. Kerrie Stark BLAST % Normal [facility] Comment on above: Performed By: #### P OCGLUC #### [facility] [address] [place] [address] Dr. Kerrie Stark CORRECTED WBC Normal 4.0-11.0 [facility] Comment on above: Performed By: #### P OCGLUC #### [facility] [address] [address] [address] Kerrie Stark EOS # 0.00 103/ul Normal 0.00-0.70 [facility] Comment on above: Performed By: #### P OCGLUC #### [facility] [address] [address] [address] Kerrie Stark EOS% 0.0 % Critically low 0.9-7.0 [facility] Comment on above: Performed By: #### P OCGLUC #### [facility] [address] [address] [address] Kerrie Stark HCT 43.5 % Normal 42.0-54.0 [facility] Comment on above: Performed By: #### P OCGLUC #### [facility] [address] [address] [address] Kerrie Stark HGB 14.7 g/dl Normal 14.0-18.0 [facility] Comment on above: Performed By: #### P OCGLUC #### [facility] [address] [address] [address] Kerrie Stark LYMPHM # 0.78 103/ul Critically low 1.20-3.80 [facility] Comment on above: Performed By: #### P OCGLUC #### [facility] [address] [address] [address] Kerrie Stark LYMPHM% 4.0 % Critically low 20.5-60.0 [facility] Comment on above: Performed By: #### P OCGLUC #### [facility] [address] [address] [address] Kerrie Stark MCH 32.5 pg Normal 25.9-34.0 [facility] Comment on above: Performed By: #### P OCGLUC #### [facility] [address] [address] [address] Kerrie Stark MCHC 33.8 g/dl Normal 29.9-35.2 [facility] Comment on above: Performed By: #### P OCGLUC #### [facility] [address] [address] [address] Kerrie Stark MCV 96.2 fL Critically high 80.0-94.0 [facility] Comment on above: Performed By: #### P OCGLUC #### [facility] [address] [address] [address] Kerrie Stark METAMYELOCYTE # Normal [facility] Comment on above: Performed By: #### P OCGLUC #### [facility] [address] [place] [address] Dr. Kerrie Stark METAMYELOCYTE % Normal [facility] Comment on above: Performed By: #### P OCGLUC #### [facility] [address] [place] [address] Dr. Kerrie Stark MONOM# 0.58 103/ul Normal 0.30-0.80 [facility] Comment on above: Performed By: #### P OCGLUC #### [facility] [address] [address] [address] Kerrie Stark MONOM% 3.0 % Normal 1.7-12.0 [facility] Comment on above: Performed By: #### P OCGLUC #### [facility] [address] [place] [address] Dr. Kerrie Stark MPV 10.1 fL Normal 9.5-13.5 [facility] Comment on above: Performed By: #### P OCGLUC #### [facility] [address] [place] [address] Dr. Kerrie Stark MYELOCYTE # Normal [facility] Comment on above: Performed By: #### P OCGLUC #### [facility] [address] [place] [address] Dr. Kerrie Stark MYELOCYTE % Normal [facility] Comment on above: Performed By: #### P OCGLUC #### [facility] [address] [place] [address] Dr. Kerrie Stark NRBC Normal [facility] Comment on above: Performed By: #### P OCGLUC #### [facility] [address] [address] [address] Kerrie Stark PLT 181 103/ul Normal 150-450 [facility] Comment on above: Performed By: #### P OCGLUC #### [facility] [address] [address] [address] Kerrie Stark RBC 4.52 106/ul Critically low 4.70-6.10 [facility] Comment on above: Performed By: #### P OCGLUC #### [facility] [address] [place] [address] Dr. Kerrie Stark RDW 12.9 % Normal 11.0-15.0 [facility] Comment on above: Performed By: #### P OCGLUC #### [facility] [address] [place] [address] Dr. Kerrie Stark SEG # 18.14 103/ul Critically high 1.40-6.50 [facility] Comment on above: Performed By: #### P OCGLUC #### [facility] [address] [place] [address] Dr. Kerrie Stark SEG % 93.0 % Critically high 43.0-75.0 [facility] Comment on above: Performed By: #### P OCGLUC #### [facility] [address] [place] [address] Dr. Kerrie Stark WBC 19.5 103/ul Critically high 4.0-11.0 [facility] Comment on above: Performed By: #### P OCGLUC #### [facility] [address] [place] [address] Dr. Kerrie Stark CTA CHEST WO W [...] ADAMS Date: 2022-04-05 20:31 Normal [facility] CULTURE BLOODon 04-05-2022 Microscopic examination of blood, culture Culture Observations: NO GROWTH AT 5 DAYS. Normal [facility] Comment on above: Performed By: #### C BC #### [facility] [address] [place] [address] Dr. Kerrie Stark Microscopic examination of blood, culture Culture Observations: NO GROWTH AT 5 DAYS. Normal [facility] Comment on above: Performed By: #### B [id number] #### [facility] [address] [place] [address] Dr. Kerrie Stark LACTATE/LACTIC ACIDon 2022 Lactate [Moles/Vol] 2.7 mmol/L Critically high 0.4-1.9 [facility] Comment on above: Performed By: #### P OCGLUC #### [facility] [address] [place] [address] Dr. Kerrie Stark Lactate [Moles/Vol] 3.2 mmol/L Critically high 0.4-1.9 [facility] Comment on above: Performed By: #### D DIM #### [facility] [address] [place] [address] Dr. Kerrie Stark PH VENOUS BLOODon 04-05-2022 PCO2 VENOUS 42.3 mmHg Normal 40.0-52.0 [facility] Comment on above: Performed By: #### P OCGLUC #### [facility] [address] [place] [address] Dr. Kerrie Stark pH VENOUS 7.400 Normal 7.330-7.430 [facility] Comment on above: Performed By: #### P OCGLUC #### [facility] [address] [place] [address] Dr. Kerrie Stark PROF 14(COMP METB)on 023 Albumin [Mass/Vol] 3.0 g/dL Critically low 3.4-5.0 [facility] Comment on above: Performed By: #### C BC #### [facility] [address] [place] [address] Dr. Kerrie Stark Albumin/Globulin [Mass ratio] 0.7 {ratio} Normal [facility] Comment on above: Performed By: #### C BC #### [facility] [address] [place] [address] Dr. Kerrie Stark ALP [Catalytic activity/Vol] 68 U/L Normal 46-116 [facility] Comment on above: Performed By: #### C BC #### [facility] [address] [place] [address] Dr. Kerrie Stark ALT [Catalytic activity/Vol] 29 U/L Normal 16-63 [facility] Comment on above: Performed By: #### C BC #### [facility] [address] [place] [address] Dr. Kerrie Stark Anion gap [Moles/Vol] 12.3 mmol/L Normal [facility] Comment on above: Performed By: #### C BC #### [facility] [address] [place] [address] Dr. Kerrie Stark AST [Catalytic activity/Vol] 19 U/L Normal 15-37 [facility] Comment on above: Performed By: #### C BC #### [facility] [address] [place] [address] Dr. Kerrie Stark Bilirubin [Mass/Vol] 0.7 mg/dL Normal 0.2-1.0 [facility] Comment on above: Performed By: #### C BC #### [facility] [address] [address] [address] Kerrie Stark Calcium [Mass/Vol] 10.0 mg/dL Normal 8.5-10.1 [facility] Comment on above: Performed By: #### C BC #### [facility] [address] [place] [address] Dr. Kerrie Stark Chloride [Moles/Vol] 96 mmol/L Critically low 98-107 [facility] Comment on above: Performed By: #### C BC #### [facility] [address] [place] [address] Dr. Kerrie Stark CO2 [Moles/Vol] 27.7 mmol/L Normal 21.0-32.0 [facility] Comment on above: Performed By: #### C BC #### [facility] [address] [place] [address] Dr. Kerrie Stark Creatinine [Mass/Vol] 1.18 mg/dL Normal 0.70-1.30 [facility] Comment on above: Performed By: #### C BC #### [facility] [address] [place] [address] Dr. Kerrie Stark EGFR-AF TOGOLESE >60 Normal >=60 [facility] Comment on above: Performed By: #### C BC #### [facility] [address] [address] [address] Kerrie Stark EGFR-NON AF TOGOLESE 59 mL/min/1.73m2 Critically low >=60 [facility] Comment on above: Performed By: #### C BC #### [facility] [address] [place] [address] Dr. Kerrie Stark Globulin (S) [Mass/Vol] 4.5 g/dL Normal [facility] Comment on above: Performed By: #### C BC #### [facility] [address] [address] [address] Kerrie Stark Glucose [Mass/Vol] 189 mg/dL Critically high 74-106 [facility] Comment on above: Performed By: #### C BC #### [facility] [address] [address] [address] Kerrie Stark Potassium [Moles/Vol] 4.0 mmol/L Normal 3.5-5.1 [facility] Comment on above: Performed By: #### C BC #### [facility] [address] [address] [address] Kerrie Stark Protein [Mass/Vol] 7.5 g/dL Normal 6.4-8.2 [facility] Comment on above: Performed By: #### C BC #### [facility] [address] [address] [address] Kerrie Stark Sodium [Moles/Vol] 132 mmol/L Critically low 136-[address] [facility] Comment on above: Performed By: #### C BC #### [facility] [address] [address] [address] Kerrie Stark Urea nitrogen [Mass/Vol] 34.0 mg/dL Critically high 7.0-18.0 [facility] Comment on above: Performed By: #### C BC #### [facility] [address] [address] [address] Kerrie Stark Urea nitrogen/Creatinine [Mass ratio] 28.8 mg/mg Normal [facility] Comment on above: Performed By: #### C BC #### [facility] [address] [address] [address] Kerrie Stark PROTIMEon 04-05-2022 INR Coag (PPP) [Relative time] 1.00 {INR} Normal [facility] Comment on above: Performed By: #### P OCGLUC #### [facility] [address] [address] [address] Kerrie Stark INR GUIDELINES SEE BELOW Normal [facility] Comment on above: Result Comment: TOBY RED INR: 2.0 - 3.0 CONDITIONS NOT LISTED BELOW 2.5 - 3.5 FOR PROSTHETIC HEART VALVE REPLACEMENT 2.5 - 3.5 RECURRENT THROMBOSIS Performed By: #### P OCGLUC #### [facility] [address] [place] [address] Dr. Kerrie Stark PT Coag (PPP) [Time] 10.6 s Normal 9.0-11.6 [facility] Comment on above: Performed By: #### P OCGLUC #### [facility] [address] [place] [address] Dr. Kerrie Stark PTTon 04-05-2022 aPTT Coag (Bld) [Time] 28.5 s Normal 22.3-36.2 [facility] Comment on above: Performed By: #### P OCGLUC #### [facility] [address] [place] [address] Dr. Kerrie Stark RESPIRATORY PANEL PLUSon Adenovirus Not detected Normal NOT DETECTED [facility] Comment on above: Performed By: #### L ACT #### [facility] [address] [place] [address] Dr. Kerrie Nayak. Parapertusis Not detected Normal NOT DETECTED [facility] Comment on above: Performed By: #### L ACT #### [facility] [address] [place] [address] Dr. Kerrie Velázquez Pertussis Not detected Normal NOT DETECTED [facility] Comment on above: Performed By: #### L ACT #### [facility] [address] [place] [address] Dr. Kerrie Stark Chlamydia Pneumoniae Not detected Normal NOT DETECTED [facility] Comment on above: Performed By: #### L ACT #### [facility] [address] [place] [address] Dr. Kerrie Stark Coronavirus 229E Not detected Normal NOT DETECTED [facility] Comment on above: Performed By: #### L ACT #### [facility] [address] [place] [address] Dr. Kerrie Stark Coronavirus HKU1 Not detected Normal NOT DETECTED [facility] Comment on above: Performed By: #### L ACT #### [facility] [address] [place] [address] Dr. Kerrie Stark Coronavirus NL63 Not detected Normal NOT DETECTED [facility] Comment on above: Performed By: #### L ACT #### [facility] [address] [address] [address] Kerrie Stark Coronavirus OC43 Not detected Normal NOT DETECTED [facility] Comment on above: Performed By: #### L ACT #### [facility] [address] [place] [address] Dr. Kerrie Stark Influenza A H1 Not detected Normal NOT DETECTED [facility] Comment on above: Performed By: #### L ACT #### [facility] [address] [place] [address] Dr. Kerrie Stark Influenza A H1 2009 Not detected Normal NOT DETECTED [facility] Comment on above: Performed By: #### L ACT #### [facility] [address] [place] [address] Dr. Kerrie Stark Influenza A H3 Not detected Normal NOT DETECTED [facility] Comment on above: Performed By: #### L ACT #### [facility] [address] [place] [address] Dr. Kerrie Stark Influenza B Not detected Normal NOT DETECTED [facility] Comment on above: Performed By: #### L ACT #### [facility] [address] [place] [address] Dr. Kerrie Stark Metapneumovirus Not detected Normal NOT DETECTED [facility] Comment on above: Performed By: #### L ACT #### [facility] [address] [address] [address] Kerrie Stark Mycoplas. Pneumoniae Not detected Normal NOT DETECTED [facility] Comment on above: Performed By: #### L ACT #### [facility] [address] [place] [address] Dr. Kerrie Stark Parainfluenza 1 Not detected Normal NOT DETECTED [facility] Comment on above: Performed By: #### L ACT #### [facility] [address] [place] [address] Dr. Kerrie Stark Parainfluenza 2 Not detected Normal NOT DETECTED [facility] Comment on above: Performed By: #### L ACT #### [facility] [address] [place] [address] Dr. Kerrie Stark Parainfluenza 3 Not detected Normal NOT DETECTED [facility] Comment on above: Performed By: #### L ACT #### [facility] [address] [place] [address] Dr. Kerrie Stark Parainfluenza 4 Not detected Normal NOT DETECTED [facility] Comment on above: Performed By: #### L ACT #### [facility] [address] [place] [address] Dr. Kerrie Stark Rhino/Enterovirus Not detected Normal NOT DETECTED [facility] Comment on above: Performed By: #### L ACT #### [facility] [address] [place] [address] Dr. Kerrie Stark RP2 Header 1 RESPIRATORY PANEL: VIRUSES Normal [facility] Comment on above: Performed By: #### L ACT #### [facility] [address] [place] [address] Dr. Kerrie Stark RP2 Header 2 RESPIRATORY PANEL: BACTERIA Normal [facility] Comment on above: Performed By: #### L ACT #### [facility] [address] [place] [address] Dr. Kerrie Stark RSV Not detected Normal NOT DETECTED [facility] Comment on above: Performed By: #### L ACT #### [facility] [address] [place] [address] Dr. Kerrie Stark SARS-CoV-2 (COVID-19) RNA QUE+probe Ql (Unsp spec) Detected Abnormal NOT DETECTED [facility] Comment on above: Performed By: #### L ACT #### [facility] [address] [place] [address] Dr. Kerrie Stark TROPONIN, HIGH SENSITIVITYon 04-05-2022 HSTROP 8.4 pg/mL Normal 4.0-76.1 [facility] Comment on above: Result Comment: CUT- OFF POINTS HAVE BEEN ESTABLISHED BASED ON THE FOURTH UNIVERSAL DEFINITIONS OF MYOCARDIAL INFARCTION. THE UPPER REFERENCE LIMIT (URL) OF TROPONIN, DEFINED THE 99TH PERCENTILE OF cTnI DISTRIBUTION IN A REFERENCE POPULATION, HAS BEEN CONFIRMED THE DECISION THRESHOLD FOR [place] DIAGNOSIS. Performed By: #### C #### [facility] [address] [address] [address] Kerrie Stark Progress Noteson 03-30-2022 Dietary Service Aide Authentication Interface Message Text EMERGENCY TRIAGE, TREAT AND TRANSPORT (ET3) DOCUMENTATION OF TELEHEALTH VISIT Date / Time: 03/27/2022 / 0 Name: Chema Childs : 1940 SSN: (Not on file) EMS Agency: [facility] [x] Verbal consent obtained [] [...] Completed by: Horace Parra, DO Normal [facility] CBC W MANUAL DIFFon 03-29-19 23 ATYPICAL LYMPH # Normal [facility] Comment on above: Performed By: #### L ACT #### [facility] [address] [place] [address] Dr. Kerrie Stark ATYPICAL LYMPH % Normal [facility] Comment on above: Performed By: #### L ACT #### [facility] [address] [place] [address] Dr. Kerrie Stark BAND # 0.0 103/ul Normal 0.0-0.3 [facility] Comment on above: Performed By: #### L ACT #### [facility] [address] [place] [address] Dr. Kerrie Stark BAND % 0 % Normal 0-5 [facility] Comment on above: Performed By: #### L ACT #### [facility] [address] [place] [address] Dr. Kerrie Stark BASOM # 0.00 103/ul Normal 0.00-0.10 [facility] Comment on above: Performed By: #### L ACT #### [facility] [address] [place] [address] Dr. Kerrie Stark BASOM % 0.0 % Critically low 0.2-2.0 [facility] Comment on above: Performed By: #### L ACT #### [facility] [address] [place] [address] Dr. Kerrie Stark BLAST # Normal [facility] Comment on above: Performed By: #### L ACT #### [facility] [address] [place] [address] Dr. Kerrie Stark BLAST % Normal [facility] Comment on above: Performed By: #### L ACT #### [facility] [address] [place] [address] Dr. Kerrie Stark CORRECTED WBC Normal 4.0-11.0 [facility] Comment on above: Performed By: #### L ACT #### [facility] [address] [address] [address] Kerrie Stark EOS # 0.00 103/ul Normal 0.00-0.70 [facility] Comment on above: Performed By: #### L ACT #### [facility] [address] [address] [address] Kerrie Stark EOS% 0.0 % Critically low 0.9-7.0 [facility] Comment on above: Performed By: #### L ACT #### [facility] [address] [address] [address] Kerrie Stark HCT 37.3 % Critically low 42.0-54.0 [facility] Comment on above: Performed By: #### L ACT #### [facility] [address] [address] [address] Kerrie Stark HGB 12.0 g/dl Critically low 14.0-18.0 [facility] Comment on above: Performed By: #### L ACT #### [facility] [address] [address] [address] Kerrie Stark LYMPHM # 0.00 103/ul Critically low 1.20-3.80 [facility] Comment on above: Performed By: #### L ACT #### [facility] [address] [address] [address] Kerrie Stark LYMPHM% 0.0 % Critically low 20.5-60.0 [facility] Comment on above: Performed By: #### L ACT #### [facility] [address] [address] [address] Kerrie Stark MCH 33.1 pg Normal 25.9-34.0 [facility] Comment on above: Performed By: #### L ACT #### [facility] [address] [address] [address] Kerrie Stark MCHC 32.2 g/dl Normal 29.9-35.2 [facility] Comment on above: Performed By: #### L ACT #### [facility] [address] [address] [address] Kerrie Stark MCV 103.0 fL Critically high 80.0-94.0 [facility] Comment on above: Performed By: #### L ACT #### [facility] [address] [place] [address] Dr. Kerrie Stark METAMYELOCYTE # Normal [facility] Comment on above: Performed By: #### L ACT #### [facility] [address] [place] [address] Dr. Kerrie Stark METAMYELOCYTE % Normal [facility] Comment on above: Performed By: #### L ACT #### [facility] [address] [place] [address] Dr. Kerrie Stark MONOM# 0.69 103/ul Normal 0.30-0.80 [facility] Comment on above: Performed By: #### L ACT #### [facility] [address] [place] [address] Dr. Kerrie Stark MONOM% 5.0 % Normal 1.7-12.0 [facility] Comment on above: Performed By: #### L ACT #### [facility] [address] [place] [address] Dr. Kerrie Stark MPV 10.6 fL Normal 9.5-13.5 [facility] Comment on above: Performed By: #### L ACT #### [facility] [address] [place] [address] Dr. Kerrie Stark MYELOCYTE # Normal [facility] Comment on above: Performed By: #### L ACT #### [facility] [address] [place] [address] Dr. Kerrie Stark MYELOCYTE % Normal [facility] Comment on above: Performed By: #### L ACT #### [facility] [address] [place] [address] Dr. Kerrie Stark NRBC Normal [facility] Comment on above: Performed By: #### L ACT #### [facility] [address] [place] [address] Dr. Kerrie Stark PLT 158 103/ul Normal 150-450 [facility] Comment on above: Performed By: #### L ACT #### [facility] [address] [address] [address] Kerrie Stark RBC 3.62 106/ul Critically low 4.70-6.10 [facility] Comment on above: Performed By: #### L ACT #### [facility] [address] [address] [address] Kerrie Stark RDW 13.2 % Normal 11.0-15.0 [facility] Comment on above: Performed By: #### L ACT #### [facility] [address] [address] [address] Kerrie Stark SEG # 13.02 103/ul Critically high 1.40-6.50 [facility] Comment on above: Performed By: #### L ACT #### [facility] [address] [address] [address] Kerrie Stark SEG % 95.0 % Critically high 43.0-75.0 [facility] Comment on above: Performed By: #### L ACT #### [facility] [address] [address] [address] Kerrie Stark WBC 13.7 103/ul Critically high 4.0-11.0 [facility] Comment on above: Performed By: #### L ACT #### [facility] [address] [address] [address] Kerrie Stark POINT OF CARE GLUCOSEon Glucose [Mass/Vol] 300 mg/dL Critically high 74-106 [facility] Comment on above: Performed By: #### C BC #### [facility] [address] [address] [address] Kerrie Stark PROF CHEM 8 (BAS METB)on Anion gap [Moles/Vol] 12.5 mmol/L Normal [facility] Comment on above: Performed By: #### D DIM #### [facility] [address] [address] [address] Kerrie Stark Calcium [Mass/Vol] 8.9 mg/dL Normal 8.5-10.1 [facility] Comment on above: Performed By: #### D DIM #### [facility] [address] [address] [address] Kerrie Stark Chloride [Moles/Vol] 103 mmol/L Normal 98-107 [facility] Comment on above: Performed By: #### D DIM #### [facility] [address] [address] [address] Kerrie Stark CO2 [Moles/Vol] 25.4 mmol/L Normal 21.0-32.0 [facility] Comment on above: Performed By: #### D DIM #### [facility] [address] [address] [address] Kerrie Stark Creatinine [Mass/Vol] 1.05 mg/dL Normal 0.70-1.30 [facility] Comment on above: Performed By: #### D DIM #### [facility] [address] [place] [address] Dr. Kerrie Stark EGFR-AF TOGOLESE >60 Normal >=60 [facility] Comment on above: Performed By: #### D DIM #### [facility] [address] [address] [address] Kerrie Stark EGFR-NON AF TOGOLESE >60 Normal >=60 [facility] Comment on above: Performed By: #### D DIM #### [facility] [address] [address] [address] Kerrie Stark Glucose [Mass/Vol] 243 mg/dL Critically high 74-106 [facility] Comment on above: Performed By: #### D DIM #### [facility] [address] [place] [address] Dr. Kerrie Stark Potassium [Moles/Vol] 3.9 mmol/L Normal 3.5-5.1 [facility] Comment on above: Performed By: #### D DIM #### [facility] [address] [place] [address] Dr. Kerrie Stark Sodium [Moles/Vol] 137 mmol/L Normal 136-145 [facility] Comment on above: Performed By: #### D DIM #### [facility] [address] [place] [address] Dr. Kerrie Stark Urea nitrogen [Mass/Vol] 22.0 mg/dL Critically high 7.0-18.0 [facility] Comment on above: Performed By: #### D DIM #### [facility] [address] [place] [address] Dr. Kerrie Stark Urea nitrogen/Creatinine [Mass ratio] 21.0 mg/mg Normal [facility] Comment on above: Performed By: #### D DIM #### [facility] [address] [place] [address] Dr. Kerrie Stark CARDIAC CONSTANTINE 3-6on 3 CK [Catalytic activity/Vol] 91 U/L Normal 39-308 [facility] Comment on above: Performed By: #### C MREP #### [facility] [address] [place] [address] Dr. Kerrie Stark CK.MB [Mass/Vol] 0.35 ng/mL Normal <=3.60 [facility] Comment on above: Performed By: #### C MREP #### [facility] [address] [place] [address] Dr. Kerrie Stark HSTROP 20.8 pg/mL Normal 4.0-76.1 [facility] Comment on above: Result Comment: CUT- OFF POINTS HAVE BEEN ESTABLISHED BASED ON THE FOURTH UNIVERSAL DEFINITIONS OF MYOCARDIAL INFARCTION. THE UPPER REFERENCE LIMIT (URL) OF TROPONIN, DEFINED THE 99TH PERCENTILE OF cTnI DISTRIBUTION IN A REFERENCE POPULATION, HAS BEEN CONFIRMED THE DECISION THRESHOLD FOR [place] DIAGNOSIS. Performed By: #### C MREP #### [facility] [address] [place] [address] Dr. Kerrie Stark CARDIAC CONSTANTINE ADMITon 023 CK [Catalytic activity/Vol] 56 U/L Normal 39-308 [facility] Comment on above: Performed By: #### D DIM #### [facility] [address] [place] [address] Dr. Kerrie Stark CK.MB [Mass/Vol] 0.36 ng/mL Normal <=3.60 [facility] Comment on above: Performed By: #### D DIM #### [facility] [address] [place] [address] Dr. Kerrie Stark HSTROP 12.7 pg/mL Normal 4.0-76.1 [facility] Comment on above: Result Comment: CUT- OFF POINTS HAVE BEEN ESTABLISHED BASED ON THE FOURTH UNIVERSAL DEFINITIONS OF MYOCARDIAL INFARCTION. THE UPPER REFERENCE LIMIT (URL) OF TROPONIN, DEFINED THE 99TH PERCENTILE OF cTnI DISTRIBUTION IN A REFERENCE POPULATION, HAS BEEN CONFIRMED THE DECISION THRESHOLD FOR [place] DIAGNOSIS. Performed By: #### D DIM #### [facility] [address] [place] [address] Dr. Kerrie Stark KIKE 128 ng/mL Critically high 16-96 [facility] Comment on above: Performed By: #### D DIM #### [facility] [address] [place] [address] Dr. Kerrie Stark CBC AUTO DIFFon 03-28-2022 BASO # 0.0 103/ul Normal 0.0-0.1 [facility] Comment on above: Performed By: #### C BC #### [facility] [address] [place] [address] Dr. Kerrie Stark Basophils/100 WBC (Bld) 0.2 % Normal 0.2-2.0 [facility] Comment on above: Performed By: #### C BC #### [facility] [address] [place] [address] Dr. Kerrie Stark EO # 0.0 103/ul Normal 0.0-0.7 [facility] Comment on above: Performed By: #### C BC #### [facility] [address] [place] [address] Dr. Kerrie Stark Eosinophils/100 WBC (Bld) 0.1 % Critically low 0.9-7.0 [facility] Comment on above: Performed By: #### C BC #### [facility] [address] [place] [address] Dr. Kerrie Stark Erythrocyte distribution width (RBC) [Ratio] 13.3 % Normal 11.0-15.0 [facility] Comment on above: Performed By: #### C BC #### [facility] [address] [place] [address] Dr. Kerrie Stark Hematocrit (Bld) [Volume fraction] 41.9 % Critically low 42.0-54.0 [facility] Comment on above: Performed By: #### C BC #### [facility] [address] [place] [address] Dr. Kerrie Stark Hemoglobin (Bld) [Mass/Vol] 13.3 g/dL Critically low 14.0-18.0 [facility] Comment on above: Performed By: #### C BC #### [facility] [address] [place] [address] Dr. Kerrie Stark IG # 0.04 10e3/ul Critically high 0.00-0.03 [facility] Comment on above: Performed By: #### C BC #### [facility] [address] [place] [address] Dr. Kerrie Stark IG % 0.4 % Normal 0.0-0.5 [facility] Comment on above: Performed By: #### C BC #### [facility] [address] [place] [address] Dr. Kerrie Stark LYMPH # 0.5 103/ul Critically low 1.2-3.8 [facility] Comment on above: Performed By: #### C BC #### [facility] [address] [place] [address] Dr. Kerrie Stark Lymphocytes/100 WBC (Bld) 5.1 % Critically low 20.5-60.0 [facility] Comment on above: Performed By: #### C BC #### [facility] [address] [place] [address] Dr. Kerrie Stark MANUAL DIFF REQ NO Normal [facility] Comment on above: Performed By: #### C BC #### [facility] [address] [place] [address] Dr. Kerrie Stark MCH (RBC) [Entitic mass] 33.2 pg Normal 25.9-34.0 [facility] Comment on above: Performed By: #### C BC #### [facility] [address] [place] [address] Dr. Kerrie Stark MCHC (RBC) [Mass/Vol] 31.7 g/dL Normal 29.9-35.2 [facility] Comment on above: Performed By: #### C BC #### [facility] [address] [address] [address] Kerrie Stark MCV (RBC) [Entitic vol] 104.5 fL Critically high 80.0-94.0 [facility] Comment on above: Performed By: #### C BC #### [facility] [address] [address] [address] Kerrie Stark MONO # 1.1 103/ul Critically high 0.3-0.8 [facility] Comment on above: Performed By: #### C BC #### [facility] [address] [place] [address] Dr. Kerrie Stark Monocytes/100 WBC (Bld) 10.9 % Normal 1.7-12.0 [facility] Comment on above: Performed By: #### C BC #### [facility] [address] [place] [address] Dr. Kerrie Stark NEUT # 8.3 103/ul Critically high 1.4-6.5 [facility] Comment on above: Performed By: #### C BC #### [facility] [address] [place] [address] Dr. Kerrie Stark Neutrophils/100 WBC (Bld) 83.3 % Critically high 43.0-75.0 [facility] Comment on above: Performed By: #### C BC #### [facility] [address] [place] [address] Dr. Kerrie Stark Platelet mean volume (Bld) [Entitic vol] 10.8 fL Normal 9.5-13.5 [facility] Comment on above: Performed By: #### C BC #### [facility] [address] [place] [address] Dr. Kerrie Stark PLT 145 103/ul Critically low 150-450 [facility] Comment on above: Performed By: #### C BC #### [facility] [address] [place] [address] Dr. Kerrie Stark RBC 4.01 106/ul Critically low 4.70-6.10 [facility] Comment on above: Performed By: #### C BC #### [facility] [address] [place], [place] [address] Dr. Kerrie Stark WBC 10.0 103/ul Normal 4.0-11.0 [facility] Comment on above: Performed By: #### C BC #### [facility] [address] [place], [place] [address] Dr. Kerrie Stark CTA CHEST WO W [...] FAROOQ HARDEN Date: 2022-03-28 06:03 Normal [facility]on SARS-CoV-2 (COVID-19) RNA QUE+probe Ql (Unsp spec) Detected Abnormal NOT DETECTED [facility] Comment on above: Result Comment: This test is not yet approved or cleared by the [place] FDA. When there are no FDA-approved or cleared tests available, and other criteria are met, FDA can make tests available under an emergency access mechanism called an Emergency Use Authorization (EUA). The EUA for this test is supported by the Tubing Assembler of Health and Human Service's declaration that [...] used). Performed By: #### C BC #### [facility] [address] [place] [address] Dr. Kerrie Stark D-DIMERon 03-28-2022 D-DIMER 0.71 mg/L FEU Critically high <=0.59 [facility] Comment on above: Performed By: #### D DIM #### [facility] [address] [place] [address] Dr. Kerrie Stark D-DIMER COMMENTS SEE BELOW Normal [facility] Comment on above: Result Comment: Incr [...] hospitalization. Performed By: #### D DIM #### [facility] [address] [place] [address] Dr. Kerrie Stark ER URINE PROFILEon 3 Bilirubin Ql (U) Negative Normal NEGATIVE [facility] Comment on above: Performed By: #### P OCGLUC #### [facility] [address] [place] [address] Dr. Kerrie Stark Clarity (U) CLEAR Normal CLEAR [facility] Comment on above: Performed By: #### P OCGLUC #### [facility] [address] [place] [address] [address] Kerrie Stark Color (U) YELLOW Normal YELLOW [facility] Comment on above: Performed By: #### P OCGLUC #### [facility] [address] [place] [address] Dr. Kerrie Stark ERUAHD A micrscopic examination will be performed if indicated. Normal [facility] Comment on above: Performed By: #### P OCGLUC #### [facility] [address] [place] [address] [address] Kerrie Stark Glucose Ql (U) Negative Normal NEGATIVE [facility] Comment on above: Performed By: #### P OCGLUC #### [facility] [address] [place] [address] [address] Kerrie Stark Hemoglobin Ql (U) Negative Normal NEGATIVE [facility] Comment on above: Performed By: #### P OCGLUC #### [facility] [address] [place] [address] Dr. Kerrie Stark Ketones Ql (U) TRACE Abnormal NEGATIVE [facility] Comment on above: Performed By: #### P OCGLUC #### [facility] [address] [address] [address] Kerrie Stark LEUKOCYTES Negative Normal NEGATIVE [facility] Comment on above: Performed By: #### P OCGLUC #### [facility] [address] [place] [address] Dr. Kerrie Stark Nitrite Ql (U) Negative Normal NEGATIVE [facility] Comment on above: Performed By: #### P OCGLUC #### [facility] [address] [address] [address] Kerrie Stark pH (U) 5.5 [pH] Normal 5-9 [facility] Comment on above: Performed By: #### P OCGLUC #### [facility] [address] [place] [address] Dr. Kerrie Stark Protein (U) [Mass/Vol] 30 mg/dL Abnormal NEGAT LITTLE/ TRACE [facility] Comment on above: Performed By: #### P OCGLUC #### [facility] [address] [place] [address] Dr. Kerrie Stark SPEC GRAVITY 1.025 Normal 1.005-<=1.025 The [facility] Comment on above: Performed By: #### P OCGLUC #### [facility] [address] [place] [address] Dr. Kerrie Stark UR MICRO IND NOT INDICATED Normal [facility] Comment on above: Performed By: #### P OCGLUC #### [facility] [address] [place] [address] Dr. Kerrie Stark Urobilinogen Qn (U) 1.0 {Ricky'U}/dL Normal 0.2 - 1. 0 [facility] Comment on above: Performed By: #### P OCGLUC #### [facility] [address] [place] [address] Dr. Kerrie Stark INFLUENZA A AND B AGon 03-28 [facility] SEE BELOW Normal [facility] Comment on above: Result Comment: Nega tive for Flu A protein angiten. Infection due to Flu A cannot be ruled out. Flu A angiten in the sample may be below the detection limit of the test. Performed By: #### L ACT #### [facility] [address] [place] [address] Dr. Kerrie Stark INFLUBNEGH SEE BELOW Normal [facility] Comment on above: Result Comment: Nega tive for Flu B protein antigen. Infection due to Flu B cannot be ruled out. Flu B antigen in the sample may be below the detection limit of the test. Performed By: #### L ACT #### [facility] [address] [place] [address] Dr. Kerrie Stark INFLUENZA A AG Negative Normal NEGATIVE SEE COMMENT [facility] Comment on above: Performed By: #### L ACT #### [facility] [address] [place] [address] Dr. Kerrie Stark INFLUENZA B AG Negative Normal NEGATIVE SEE COMMENT [facility] Comment on above: Performed By: #### L ACT #### [facility] [address] [place], [place] [id number] Dr. Kerrie Stark POINT OF CARE GLUCOSEon Glucose [Mass/Vol] 251 mg/dL Critically high 74-106 [facility] Comment on above: Performed By: #### C BC #### [facility] [address] [place] [address] [address] Kerrie Stark Glucose [Mass/Vol] 244 mg/dL Critically high 74-106 [facility] Comment on above: Performed By: #### B LDCX1 #### [facility] [address] [place] [address] [address] Kerrie Stark Glucose [Mass/Vol] 398 mg/dL Critically high 74-106 [facility] Comment on above: Performed By: #### P OCGLUC #### [facility] [address] [place] [address] Dr. Kerrie Stark PROF CHEM 8 (BAS METB)on Anion gap [Moles/Vol] 17.2 mmol/L Normal [facility] Comment on above: Performed By: #### D DIM #### [facility] [address] [place] [address] Dr. Kerrie Stark Calcium [Mass/Vol] 9.0 mg/dL Normal 8.5-10.1 [facility] Comment on above: Performed By: #### D DIM #### [facility] [address] [place] [address] Dr. Kerrie Stark Chloride [Moles/Vol] 96 mmol/L Critically low 98-107 [facility] Comment on above: Performed By: #### D DIM #### [facility] [address] [place] [address] Dr. Kerrie Stark CO2 [Moles/Vol] 23.6 mmol/L Normal 21.0-32.0 [facility] Comment on above: Performed By: #### D DIM #### [facility] [address] [place] [address] Dr. Kerrie Stark Creatinine [Mass/Vol] 1.41 mg/dL Critically high 0.70-1.30 [facility] Comment on above: Performed By: #### D DIM #### [facility] [address] [place] [address] [address] Kerrie Stark EGFR-AF TOGOLESE 58 mL/min/1.73m2 Critically low >=60 [facility] Comment on above: Performed By: #### D DIM #### [facility] [address] [place] [address] [address] Kerrie Stark EGFR-NON AF TOGOLESE 48 mL/min/1.73m2 Critically low >=60 [facility] Comment on above: Performed By: #### D DIM #### [facility] [address] [place] [address] [address] Kerrie Stark Glucose [Mass/Vol] 151 mg/dL Critically high 74-106 [facility] Comment on above: Performed By: #### D DIM #### [facility] [address] [place] [address] [address] Kerrie Stark Potassium [Moles/Vol] 3.8 mmol/L Normal 3.5-5.1 [facility] Comment on above: Performed By: #### D DIM #### [facility] [address] [place] [address] [address] Kerrie Stark Sodium [Moles/Vol] 133 mmol/L Critically low 136-[address] [facility] Comment on above: Performed By: #### D DIM #### [facility] [address] [place] [address] [address] Kerrie Stark Urea nitrogen [Mass/Vol] 20.0 mg/dL Critically high 7.0-18.0 [facility] Comment on above: Performed By: #### D DIM #### [facility] [address] [place] [address] [address] Kerrie Stark Urea nitrogen/Creatinine [Mass ratio] 14.2 mg/mg Normal [facility] Comment on above: Performed By: #### D DIM #### [facility] [address] [place] [address] [address] Kerrie Stark XR CHEST 2 Von [...] ROCHA Date: 2022-03-28 01:38 Normal [facility] Auth for Release of Medical Recordson 03-09-2022 Auth for Release of Medical Records [id number] #1.00CD:[address] [facility] Cult,Urineon 03-02-2022 Cult,Urine Specimen Description .CLEAN CATCH URINE Culture NO SIGNIFICANT GROWTH Report Status FINAL 03/02/2022 Normal [facility] Comment on above: Performed By: #### U RC #### [address] [address] Sulphate Tester: Sandip Smith MD [facility] [address] [place] [address] [place] [address] Sulphate Tester: Ulisses Gaines MD Urinalysis w/ Microon 2022 Bacteria TRACE Abnormal NONE [facility] Comment on above: Performed By: #### U AMIC #### [facility] [address] [place] [address] [place] [address] Sulphate Tester: Ulisses Gaines MD Bilirubin, SemiQt,Ur Negative Normal NEG [facility] Comment on above: Performed By: #### U AMIC #### [facility] [address] [place] [address] [place] [address] Sulphate Tester: Ulisses Gaines MD Blood, Urine Negative Normal NEG [facility] Comment on above: Performed By: #### U AMIC #### [facility] [address] [place] [address] [place] [address] Sulphate Tester: Ulisses Gaines MD Clarity (U) Clear Normal CLEAR [facility] Comment on above: Performed By: #### U AMIC #### [facility] [address] [place], [place] [id number] Sulphate Tester: Ulisses Gaines MD Color (U) Yellow Normal YEL [facility] Comment on above: Performed By: #### U AMIC #### [facility] [address] [place], [place] [id number] Sulphate Tester: Ulisses Gaines MD Epithelial cells LM Ql (Urine sed) 0 TO 2 Normal 0-5 [facility] Comment on above: Performed By: #### U AMIC #### [facility] [address] [place] [address] Dr. [place], [place] [id number] Sulphate Tester: Ulisses Gaines MD Glucose Ql (U) Negative Normal NEG [facility] Comment on above: Performed By: #### U AMIC #### [facility] [address] [place] [address] Dr. [place], [place] [id number] Sulphate Tester: Ulisses Gaines MD Ketones Ql (U) Negative Normal NEG [facility] Comment on above: Performed By: #### U AMIC #### [facility] [address] [place] [address] Dr. [place], [place] [id number] Sulphate Tester: Ulisses Gaines MD Leukocyte esterase Test strip Ql (U) Negative Normal NEG [facility] Comment on above: Performed By: #### U AMIC #### [facility] [address] [place] [address] Dr. [place], [place] [id number] Sulphate Tester: Ulisses Gaines MD Nitrite,Ur Negative Normal NEG [facility] Comment on above: Performed By: #### U AMIC #### [facility] [address] [place] [address] Dr. [place], [place] [id number] Sulphate Tester: Ulisses Gaines MD PH,Ur 6.0 Normal 5.0-9.0 [facility] Comment on above: Performed By: #### U AMIC #### [facility] [address] [place], [place] [id number] Sulphate Tester: Ulisses Gaines MD Protein Ql (U) Negative Normal NEG [facility] Comment on above: Performed By: #### U AMIC #### [facility] [address] [place], [facility] Sulphate Tester: Ulisses Gaines MD Spec. Dania,Ur 1.010 Normal 1.010-1.020 [facility] Comment on above: Performed By: #### U AMIC #### [facility] [address] [place] [address] Dr. [place], [place] [id number] Sulphate Tester: Ulisses Gaines MD Urine RBC's None Normal 0-2 [facility] Comment on above: Performed By: #### U AMIC #### [facility] [address] [place], [facility] Sulphate Tester: Ulisses Gaines MD Urine WBC's None Normal 0-5 [facility] Comment on above: Performed By: #### U AMIC #### [facility] [address] [place] [address] Dr. [place], [facility] Sulphate Tester: Ulisses Gaines MD Urobilinogen,Ur Normal Normal NORM [facility] Comment on above: Performed By: #### U AMIC #### [facility] [address] [place], [facility] Sulphate Tester: Ulisses Gaines MD Urinalysis with Microscopico n 03-01-2022 Bacteria, UA TRACE Abnormal None [facility] Bilirubin Urine Negative NEGATIVE [facility] Color, UA Yellow Yellow [facility] Epithelial Cells UA 0 TO 2 [facility] Glucose, Ur Negative NEGATIVE [facility] Interpretation and review of laboratory results Abnormal [facility] Ketones Ql (U) Negative NEGATIVE [facility] Leukocyte esterase Test strip Ql (U) Negative NEGATIVE [facility] Nitrite, Urine Negative NEGATIVE [facility] pH, UA 6.0 5.0 - 9.0 [facility] Protein, UA Negative NEGATIVE [facility] RBC, UA None [facility] Specific [place], UA 1.010 1.010 - 1.020 [facility] Turbidity UA Clear Clear [facility] Urine Hgb Negative NEGATIVE [facility] Urobilinogen, Urine Normal Normal [facility] WBC, UA None [facility] GLYCOHEMOGLOBIN A1Con 2021 ADA RECOMMENDATION SEE BELOW Normal [facility] Comment on above: Result Comment: ADA RECOMMENDED LIMIT 4.0 - 6.0 ADA THERAPEUTIC TARGET < 7.0 ACTION SUGGESTED > 7.0 Performed By: #### P OCGLUC #### [facility] [address] [place] [address] [address] Kerrie Stark Glucose [Mass/Vol] 146 mg/dL Normal [facility] Comment on above: Performed By: #### P OCGLUC #### [facility] [address] [address] [address] Kerrie Stark HbA1c (Bld) [Mass fraction] 6.7 % Critically high 4.5-6.2 [facility] Comment on above: Performed By: #### P OCGLUC #### [facility] [address] [place] [address] [address] Kerrie Stark LIPID PROFILEon 02-01-2022 CHOL-HDL RATIO NORM SEE BELOW Normal [facility] Comment on above: Result Comment: 3.3 - 4.4 LOW RISK 4.4 - 7.1 AVERAGE RISK 7.1 - 11.0 MODERATE RISK >11.0 HIGH RISK Performed By: #### P OCGLUC #### [facility] [address] [place] [address] [address] Kerrie Stark Cholesterol [Mass/Vol] 127 mg/dL Normal <=[address] [facility] Comment on above: Performed By: #### P OCGLUC #### [facility] [address] [address] [address] Kerrie Stark Cholesterol in HDL [Mass/Vol] 50 mg/dL Normal 40-60 [facility] Comment on above: Performed By: #### P OCGLUC #### [facility] [address] [place] [address] [address] Kerrie Stark Cholesterol in LDL [Mass/Vol] 58.8 mg/dL Normal [facility] Comment on above: Performed By: #### P OCGLUC #### [facility] [address] [address] [address] Kerrie Stark Cholesterol.total/Chol esterol in HDL [Mass ratio] 2.5 {ratio} Normal [facility] Comment on above: Performed By: #### P OCGLUC #### [facility] [address] [address] [address] Kerrie Stark HDL NORMAL > or = 60 mg/dl - LOW CARDIOVASCULAR RISK <40 mg/dl - HIGH CARDIOVASCULAR RISK Normal [facility] Comment on above: Performed By: #### P OCGLUC #### [facility] [address] [place] [address] [address] Kerrie Stark LDL CALC NORMAL SEE BELOW Normal [facility] Comment on above: Result Comment: <100 mg/dl OPTIMAL 100 - 129 mg/dl NEAR OR ABOVE OPTIMAL 130 - 159 mg/dl BORDERLINE HIGH 160 - 189 mg/dl HIGH >190 mg/dl VERY HIGH Performed By: #### P OCGLUC #### [facility] [address] [place] [address] [address] Kerrie Stark Triglyceride [Mass/Vol] 91 mg/dL Normal <=150 [facility] Comment on above: Performed By: #### P OCGLUC #### [facility] [address] [place] [address] [address] Kerrie Stark VLDL CALC 18.2 mg/dL Normal [facility] Comment on above: Performed By: #### P OCGLUC #### [facility] [address] [place] [address] Dr. Kerrie Stark PROF 14(COMP METB)on 022 Albumin [Mass/Vol] 3.8 g/dL Normal 3.4-5.0 [facility] Comment on above: Performed By: #### P OCGLUC #### [facility] [address] [address] [address] Kerrie Stark Albumin/Globulin [Mass ratio] 1.0 {ratio} Normal [facility] Comment on above: Performed By: #### P OCGLUC #### [facility] [address] [address] [address] Kerrie Stark ALP [Catalytic activity/Vol] 56 U/L Normal 46-116 [facility] Comment on above: Performed By: #### P OCGLUC #### [facility] [address] [place] [address] [address] Kerrie Stark ALT [Catalytic activity/Vol] 30 U/L Normal 16-63 [facility] Comment on above: Performed By: #### P OCGLUC #### [facility] [address] [address] [address] Kerrie Stark Anion gap [Moles/Vol] 13.3 mmol/L Normal [facility] Comment on above: Performed By: #### P OCGLUC #### [facility] [address] [place] [address] [address] Kerrie Stark AST [Catalytic activity/Vol] 26 U/L Normal 15-37 [facility] Comment on above: Performed By: #### P OCGLUC #### [facility] [address] [place] [address] [address] Kerrie Stark Bilirubin [Mass/Vol] 0.7 mg/dL Normal 0.2-1.0 [facility] Comment on above: Performed By: #### P OCGLUC #### [facility] [address] [address] [address] Kerrie Stark Calcium [Mass/Vol] 9.0 mg/dL Normal 8.5-10.1 [facility] Comment on above: Performed By: #### P OCGLUC #### [facility] [address] [address] [address] Kerrie Stark Chloride [Moles/Vol] 105 mmol/L Normal 98-107 [facility] Comment on above: Performed By: #### P OCGLUC #### [facility] [address] [address] [address] Kerrie Stark CO2 [Moles/Vol] 28.3 mmol/L Normal 21.0-32.0 [facility] Comment on above: Performed By: #### P OCGLUC #### [facility] [address] [address] [address] Kerrie Stark Creatinine [Mass/Vol] 1.00 mg/dL Normal 0.70-1.30 [facility] Comment on above: Performed By: #### P OCGLUC #### [facility] [address] [address] [address] Kerrie Stark EGFR-AF TOGOLESE >60 Normal >=60 [facility] Comment on above: Performed By: #### P OCGLUC #### [facility] [address] [address] [address] Kerrie Stark EGFR-NON AF TOGOLESE >60 Normal >=60 [facility] Comment on above: Performed By: #### P OCGLUC #### [facility] [address] [address] [address] Kerrie Stark Globulin (S) [Mass/Vol] 3.7 g/dL Normal [facility] Comment on above: Performed By: #### P OCGLUC #### [facility] [address] [address] [address] Kerrie Stark Glucose [Mass/Vol] 150 mg/dL Critically high 74-106 [facility] Comment on above: Performed By: #### P OCGLUC #### [facility] [address] [address] [address] Kerrie Stark Potassium [Moles/Vol] 5.6 mmol/L Critically high 3.5-5.1 [facility] Comment on above: Performed By: #### P OCGLUC #### [facility] [address] [address] [address] Kerrie Stark Protein [Mass/Vol] 7.5 g/dL Normal 6.4-8.2 [facility] Comment on above: Performed By: #### P OCGLUC #### [facility] [address] [address] [address] Kerrie Stark Sodium [Moles/Vol] 141 mmol/L Normal 136-145 [facility] Comment on above: Performed By: #### P OCGLUC #### [facility] [address] [address] [address] Kerrie Stark Urea nitrogen [Mass/Vol] 18.0 mg/dL Normal 7.0-18.0 [facility] Comment on above: Performed By: #### P OCGLUC #### [facility] [address] [address] [address] Kerrie Stark Urea nitrogen/Creatinine [Mass ratio] 18.0 mg/mg Normal [facility] Comment on above: Performed By: #### P OCGLUC #### [facility] [address] [address] [address] Kerrie Stark Creatinine (Bld) [Mass/Vol]O rdered By: Oumar Haynes on 01-30-2022 Creatinine [Mass/Vol] 1.0 mg/dL 0.6-1.3 [facility] Comment on above: ER/ESD physician is notified/shown all ISTAT results.Critical values may be confirmed by laboratory testing ifdeemed necessary by ER attending doctor. No Panel InformationOrdered By: Oumar Haynes on 01-30-2022 POC Estimated GFR > 60 [facility] Comment on above: GFR estimated refere nce range: According to KDOQI guidelines, <60 ml/min/1.73m2 is sufficient to diagnose a patient with chronic kidney disease. POC Estimated GFR Non- Amer > 60 [facility] Auth for Release of Medical Recordson 12-22-2021 Auth for Release of Medical Records [id number] #1.00CD:[address] [facility] Formson 11-25-2021 Forms [id number] #1.00CD:[address] [facility] Patient Educationon 11-24-19 Patient Education Infectious [...] Follow these instructions at home: ? Take rxke-xgb-clmjyfk and prescription medicines only as told by [...] Docum (more content not included)... Normal [facility] Urology Office/Clinic Noteon 11-23-2021 Urology Office/Clinic [...] w 4 wks abx. side effects/risks discussed. 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 encouraged probiotics, metamucil, and yogurt to help w diarrhea. complete entire abx course. 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 [address] Additional Instructions: Patient Education Prostatitis Problem List/Past [...] Protein Urine Dipstick: Negative (11/23/21 09:44:00) Specific [place] Urine Dipstick: 1.015 (11/23/21 09 (more content not included)... Normal [facility] Comment on above: Result Comment: Elec tronically Signed By: KONG PEPE PA-C\.br\Date and Time Signed: 11/23/21 11:02 EDT Historical Records Officeon 11-01-2021 Historical Records Office [id number] [facility] FREE T3on 09-21-2021 FREE T3 1.88 pg/mlL Critically low 2.18-3.98 [facility] Comment on above: Performed By: #### P OCGLUC #### [facility] [address] [place], [place] [address] Dr. Kerrie Stark FREE T4on 09-21-2021 Free T4 [Mass/Vol] 1.28 ng/dL Normal 0.76-1.46 [facility] Comment on above: Performed By: #### D DIM #### [facility] [address] [place], [place] [address] Dr. Kerrie Stark TSHon 09-21-2021 TSH 0.625 uIU/mL Normal 0.358-3.740 [facility] Comment on above: Performed By: #### P OCGLUC #### [facility] [address] [place], [place] [address] Dr. Kerrie Stakr CTA Abdomen/Pelvis w/ and w/ o contraston [...] by Harpal Crane on 08/11/2021 1410 Normal [facility] Specialist CREATININEon 08-03-2021 Creatinine [Mass/Vol] 0.98 mg/dL Normal 0.70-1.30 [facility] Comment on above: Performed By: #### L ACT #### [facility] [address] [place] [address] Dr. Kerrie Stark EGFR-AF TOGOLESE >60 Normal >=60 [facility] Comment on above: Performed By: #### L ACT #### [facility] [address] [place] [address] [address] Kerrie Stark EGFR-NON AF TOGOLESE >60 Normal >=60 [facility] Comment on above: Performed By: #### L ACT #### [facility] [address] [address] [address] Kerrie Stark GLYCOHEMOGLOBIN A1Con 2021 ADA RECOMMENDATION SEE BELOW Normal [facility] Comment on above: Result Comment: ADA RECOMMENDED LIMIT 4.0 - 6.0 ADA THERAPEUTIC TARGET < 7.0 ACTION SUGGESTED > 7.0 Performed By: #### P OCGLUC #### [facility] [address] [place] [address] Dr. Kerrie Stark Glucose [Mass/Vol] 146 mg/dL Normal [facility] Comment on above: Performed By: #### P OCGLUC #### [facility] [address] [address] [address] Kerrie Stark HbA1c (Bld) [Mass fraction] 6.7 % Critically high 4.5-6.2 [facility] Comment on above: Performed By: #### P OCGLUC #### [facility] [address] [place] [address] Dr. Kerrie Stark Vital Signs Date Time Vital Sign Value Performing Clinician Facility 01-03-2024 10:41-0500 Body height 180.3 cm Clayton Mcfadden MD Work Phone: [facility] 01-03-2024 10:41-0500 Body mass index (BMI) [Ratio] 26.36 kg/m2 Clayton Mcfadden MD Work Phone: [facility] 01-03-2024 10:41-0500 Body temperature 98.1 [degF] Clayton Mcfadden MD Work Phone: [facility] 01-03-2024 10:41-0500 Body weight 85.73 kg Clayton Mcfadden MD Work Phone: [facility] 01-03-2024 10:41-0500 Heart rate 61 /min Clayton Mcfadden MD Work Phone: [facility] 01-03-2024 10:41-0500 SaO2% (BldA) [Mass fraction] 92 % Clayton Mcfadden MD Work Phone: [facility] 12-17-2023 14:55-0400 Body height 180.3 cm Clayton Mcfadden MD Work Phone: [facility] 12-17-2023 14:55-0400 Body mass index (BMI) [Ratio] 26.36 kg/m2 Clayton Mcfadden MD Work Phone: [facility] 12-17-2023 14:55-0400 Body weight 85.73 kg Clayton Mcfadden MD Work Phone: [facility] 11-12-2023 10:38-0400 Body height 180.3 cm Clayton Mcfadden MD Work Phone: [facility] 11-12-2023 10:38-0400 Body mass index (BMI) [Ratio] 26.36 kg/m2 Clayton Mcfadden MD Work Phone: [facility] 11-12-2023 10:38-0400 Body weight 85.73 kg Clayton Mcfadden MD Work Phone: [facility] 11-12-2023 10:38-0400 Diastolic blood pressure 80 mm[Hg] Clayton Mcfadden MD Work Phone: [facility] 11-12-2023 10:38-0400 Heart rate 62 /min Clayton Mcfadden MD Work Phone: [facility] 11-12-2023 10:38-0400 SaO2% (BldA) [Mass fraction] 97 % Clayton Mcfadden MD Work Phone: [facility] 11-12-2023 10:38-0400 Systolic blood pressure 130 mm[Hg] Clayton Mcfadden MD Work Phone: [facility] 01-31-2023 10:00-0500 Body height 175.26 cm Horace Jasso Other [employer] Other 01-31-2023 10:00-0500 Body mass index (BMI) [Ratio] 27.32 kg/m2 Horace Jasso Other [employer] Other 01-31-2023 10:00-0500 Body temperature 97.6 [degF] Horace Jasso Other [employer] Other 01-31-2023 10:00-0500 Body weight 83.92 kg Horace Jasso Other [employer] Other 01-31-2023 10:00-0500 Diastolic blood pressure 64 mm[Hg] Horace Jasso Other [employer] Other 01-31-2023 10:00-0500 SaO2% (BldA) [Mass fraction] 94 % Horace Fernandezpatti Other [employer] Other 01-31-2023 10:00-0500 Systolic blood pressure 108 mm[Hg] Horace Louisa Other [employer] Other 03-27-2022 23:40-0500 Diastolic blood pressure 78 mm[Hg] [facility] 03-27-2022 23:40-0500 Heart rate 121 /min [facility] 03-27-2022 23:40-0500 Respiratory rate 22 /min [facility] 03-27-2022 23:40-0500 SaO2% (BldA) [Mass fraction] 92 % [facility] 03-27-2022 23:40-0500 Systolic blood pressure 137 mm[Hg] [facility] [employer] [facility] 01-31-2022 12:00-0500 Body height 175.26 cm Yolette Thompsonyusuf Other [employer] Other 01-31-2022 12:00-0500 Body mass index (BMI) [Ratio] 27.32 kg/m2 Yolette Thompsonyusuf Other [employer] Other 01-31-2022 12:00-0500 Body temperature 96.4 [degF] Yolette Sherin Other [employer] Other 01-31-2022 12:00-0500 Body weight 83.92 kg Yolette Thompsonyusuf Other [employer] Other 01-31-2022 12:00-0500 Diastolic blood pressure 72 mm[Hg] Yolette Sherin Other [employer] Other 01-31-2022 12:00-0500 SaO2% (BldA) [Mass fraction] 97 % 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 Other [employer] Other 01-31-2022 12:00-0500 Systolic blood pressure 120 mm[Hg] 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 Other [employer] Other 11-23-2021 09:59-0400 Blood Pressure Location KONG PEPE [facility] 11-23-2021 09:59-0400 Diastolic blood pressure 70 mm[Hg] KONG PEPE [facility] 11-23-2021 09:59-0400 Heart rate 66 /min KONG PEPE [facility] 11-23-2021 09:59-0400 Systolic blood pressure 132 mm[Hg] KONG PEPE [facility] 08-16-2021 12:45-0400 Body height 175.26 cm Oumar Haynes Other [employer] Other 08-16-2021 12:45-0400 Body mass index (BMI) [Ratio] 27.32 kg/m2 Oumar Haynes Other [employer] Other 08-16-2021 12:45-0400 Body temperature 96.9 [degF] Oumar Haynes Other [employer] Other 08-16-2021 12:45-0400 Body weight 83.92 kg Oumar Haynes Other [employer] Other 08-16-2021 12:45-0400 Diastolic blood pressure 78 mm[Hg] Oumar Haynes Other [employer] Other 08-16-2021 12:45-0400 SaO2% (BldA) [Mass fraction] 95 % Oumar Haynes Other [employer] Other 08-16-2021 12:45-0400 Systolic blood pressure 110 mm[Hg] Oumar Haynes Other [employer] Other Encounters Encounter Date Encounter Type Care Provider Facility Start: 01-09-2024 End: 01-09-2024 Dona Paez RN Work Phone: [facility] Comment on above: 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, with long-term current use of insulin (HCC) ([facility]) (Primary Dx); Gastroesophageal reflux disease without esophagitis; Acquired hypothyroidism ([facility]/HCC) Start: 01-03-2024 End: 01-03-2024 ambulatory CLAYTON MCFADDEN Not Available Start: 01-03-2024 End: 01-03-2024 Office outpatient visit 25 minutes Clayton Mcfadden MD Work Phone: [facility] Comment on above: Acute exacerbation o f chronic obstructive pulmonary disease (COPD) ([facility]) (Primary Dx); Interstitial lung disease ([facility]); Panlobular emphysema ([facility]); Polypharmacy Start: 12-17-2023 End: 12-17-2023 Office outpatient [...] aneurysm, without rupture (CMS/HCC); Atherosclerosis of aorta ([facility]/HCC) Start: 11-12-2023 End: 11-12-2023 ambulatory CLAYTON MCFADDEN Not Available Start: 11-06-2023 End: 11-06-2023 Clinisync Result Encounter Clayton Mcfadden MD Work Phone: [facility] External Department Unsolicited Start: 11-06-2023 End: 11-06-2023 Clinisync Result Encounter Clayton Mcfadden MD Work Phone: [facility] External Department Unsolicited Start: 05-22-2023 End: 05-22-2023 ambulatory CLAYTON MCFADDEN Not Available Start: 03-28-2023 Refill Clayton diez MD Work Phone: [facility] Comment on above: 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, with long-term current use of insulin (HCC) ([facility]/HCC) Start: 01-31-2023 Office outpatient vi sit 15 minutes Horace ALMANZA [facility] Start: 01-31-2023 End: 01-31-2023 ambulatory 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 Facility:[facility] Start: 01-31-2023 End: 01-31-2023 ambulatory MD Clayton Mcfadden Work Phone: [employer] Other Start: 01-31-2023 End: 01-31-2023 Patient encounter procedure MD Clayton Mcfadden Work Phone: [facility]Ul[facility] Start: 01-15-2023 End: 01-15-2023 ambulatory CLAYTON MCFADDEN Not Available Start: 12-01-2022 End: 12-01-2022 ambulatory CLAYTON Lariosy [facility] Start: 10-03-2022 End: 10-03-2022 ambulatory CLAYTON Miguel [facility] Start: 08-28-2022 End: 08-29-2022 ambulatory CLAYTON Miguel [facility] Start: 08-09-2022 End: 08-10-2022 ambulatory CLAYTON Lariosy [facility] Start: 08-09-2022 End: 08-09-2022 Subsequent hospital visit by physician Clayton Mcfadden MD Work Phone: [facility] Comment on above: Dysuria; Frequency of micturition Start: 07-03-2022 End: 07-04-2022 ambulatory ZOILA JAVED . Facility:[facility] Start: 06-26-2022 End: 06-27-2022 ambulatory ZOILA JAVED . Facility:[facility] Start: 06-14-2022 End: 06-15-2022 ambulatory JASONDAYO Miguel Miguel [facility] Start: 04-24-2022 End: 05-18-2022 ambulatory [...] Start: 03-27-2022 End: 03-27-2022 ambulatory [facility] Triage, Treat and Transport Start: 03-27-2022 End: 03-27-2022 Emergency department patient visit [facility] Emergency Triage, Treat and Transport Comment on above: Arrived Start: 03-02-2022 End: 03-03-[address] CLAYTON MCFADDEN . Facility:[facility] Start: 03-01-2022 End: 03-02-2022 ambulatory ERICA Miguel [facility] Start: 03-01-2022 End: 03-01-2022 Subsequent hospital visit by physician Clayton Mcfadden MD Work Phone: [facility] Comment on above: BPH with [...] 01-31-2022 End: 01-31-2022 ambulatory 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 Other [facility] [employer] Other Start: 01-31-2022 Follow-up encounter Yolette Rosenberg [facility] Surgery Start: 01-30-2022 End: 01-30-2022 ambulatory MD Clayton Mcfadden Work Phone: [facility] Work Phone: Start: 01-30-2022 End: 01-30-2022 Patient encounter procedure MD Clayton Mcfadden Work Phone: [facility]CT [facility] Start: 11-23-2021 End: 11-24-2021 ambulatory KONG PEPE Facility:[facility] Start: 11-23-2021 End: 11-23-2021 Patient encounter procedure KONG PEPE [facility] Start: 09-21-2021 End: 09-22-[address] CLAYTON MCFADDEN . Facility: Start: 08-19-[address] CLAYTON MCFADDEN . Fac ility:[facility] Start: 08-16-2021 End: 08-16-2021 ambulatory Oumar Haynes Other [facility] [employer] Other Start: 08-16-2021 Office outpatient ne w 45 minutes Oumar Haynes [facility] Vascular Surgery Start: 08-03-2021 End: 08-04-2021 ambulatory [...] above: Performed By: #### P OCGLUC #### [facility] [address] [place] [address] Dr. Kerrie Stark Start: 03-01-2022 Urnls dip stick/tabl et reagent auto microscopy Erica Veras MD Work Phone: Start: 01-30-2022 Computed tomography angiography of abdominal and/or pelvic blood vessel MD Clayton Mcfadden Work Phone: Start: 12-24-2017 Cystoscopy KONG BRITO Start: 02-19-1977 H/O: vasectomy KONG PEPE Plan of Treatment Date Care Activity Detail Author Start: 05-21-2025 Glaucoma screening Diabetes: R etinopathy Screening [facility] Start: 06-03-2024 End: 06-03-2024 Patient encounter procedure [facility] Start: 05-07-2024 Hemoglobin A1c measurement Diabetes: Hemoglobin A1C [facility] Start: 03-14-2024 Urine screening for protein Diabetes: Urine Protein Screening [facility] Start: 03-06-2024 Glaucoma screening Diabetes: R etinopathy Screening [facility] Start: 11-18-2023 Hemoglobin A1c measurement Diabetes: Hemoglobin A1C [facility] Start: 11-12-2023 End: 11-12-2023 Patient encounter procedure [facility] Comment on above: Benign essential hyp ertension (CMS/HCC); Hypertensive nephropathy ([facility]/HCC); Stage 3a chronic kidney disease (HCC) ([facility]/HCC); Microalbuminuria; Type 2 diabetes mellitus with stage 3a chronic kidney disease, with long-term current use of insulin (HCC) ([facility]/HCC); Mixed hyperlipidemia ([facility]); Hyperuricemia; Hypomagnesemia; Polypharmacy; Ex-smoker; Overweight Start: 10-21-2023 Influenza vaccination Influenza Vacc ine (#1) [facility] Start: 05-22-2023 End: 05-22-2023 Patient encounter procedure 05/22/2023 11:00 AM EDT Office Visit [facility] [address] [place] [address] Clayton Mcfadden MD [address] [place] [address] [facility] Start: 01-23-2023 Hemoglobin A1c measurement Diabetes: Hemoglobin A1C [facility] Start: 09-20-2022 End: 09-20-2022 Patient encounter procedure 09/20/2022 Office Visit [facility] Start: 03-20-2022 End: 03-20-2022 Patient encounter procedure 03/20/2022 Procedure visit [facility] Start: 03-01-2022 Annual Wellness Visi t (AWV) Annual Wellness Visit (AWV) [facility] Start: 11-19-2021 Influenza vaccination Influenza Vacc ine (#1) [facility] Start: 09-19-2021 Influenza vaccination Flu vaccine (# 1) [facility] Start: 01-29-2021 COVID-19 Vaccine (4 - Booster for Pfizer series) COVID-19 Vaccine (4 - Booster for Pfizer series) [facility] Start: 02-18-2014 Shingles vaccine (2 of 3) Shingles vaccine (2 of 3) [facility] Start: 2005 Pneumococcal 65+ yea rs Vaccine (1 - PCV) Pneumococcal 65+ years Vaccine (1 - PCV) [facility] Start: 2005 Pneumococcal vaccination Pneum ococcal Vaccine(s) (65+ yrs) (1 - PCV) [facility] Start: 1990 Shingles (RZV) Vacci ne (1 of 2) Shingles (RZV) Vaccine (1 of 2) [facility] Start: 1990 Shingles vaccine (1 of 2) Shingles vaccine (1 of 2) [facility] Start: 04-26-1959 DTaP/Tdap/Td vaccine (1 - Tdap) DTaP/Tdap/Td vaccine (1 - Tdap) [facility] Start: 1958 Tetanus + diphtheria + acellular pertussis vaccine (product) Tdap Booster [facility] Start: 1952 Depression Screen Depression Screen [facility] Start: 1950 Lipid panel Lipids [facility] Start: 1940 COVID-19 Vaccine (#1) COVID-19 Vacci ne (#1) [facility] End: 03-01-2022 Culture, Urine [facility] Work Phone: Comment on above: 1 Occurrences starti ng 03/01/2022 until 03/01/2022 End: 08-09-2022 Culture, Urine [facility] Comment on above: 1 Occurrences starti ng 08/09/2022 until 08/09/2022 Immunizations Immunization Date Immunization Notes Care Provider Tom chamorro 12-27-2023 influenza, seasonal, injectable Briseida Paez RN Work Phone: [facility] 12-04-2022 Influenza, Seasonal, Quadrivalent, Adjuvanted Clayton Mcfadden MD Work Phone: [facility] 12-04-2022 influenza virus vacc ine, unspecified formulation Clayton Mcfadden MD Work Phone: [facility] 12-08-2021 influenza, injectabl e, quadrivalent, preservative free Clayton Mcfadden MD Work Phone: [facility] 12-08-2021 Influenza, Seasonal, Quadrivalent, Adjuvanted Clayton Mcfadden MD Work Phone: [facility] 12-04-2020 influenza, high dose seasonal, preservative-free Clayton Mcfadden MD Work Phone: [facility] 12-04-2020 Influenza, High-dose Seasonal, Quadrivalent, Preservative Free Clayton Mcfadden MD Work Phone: [facility] 11-29-2019 influenza, injectabl e, quadrivalent, preservative free Clayton Mcfadden MD Work Phone: [facility] 10-15-2019 influenza, high dose seasonal, preservative-free Clayton Mcfadden MD Work Phone: [facility] 11-07-2018 influenza, injectabl e, quadrivalent, preservative free Clayton Mcfadden MD Work Phone: [facility] 11-07-2018 Seasonal trivalent influenza vaccine, adjuvanted, preservative free Clayton Mcfadden MD Work Phone: [facility] 11-23-2017 influenza, high dose seasonal, preservative-free Clayton Mcfadden MD Work Phone: [facility] 11-23-2017 influenza, injectabl e, quadrivalent, preservative free Clayton Mcfadden MD Work Phone: [facility] 01-31-2017 pneumococcal conjuga te vaccine, 13 valent Clayton Mcfadden MD Work Phone: [facility] 01-19-2017 pneumococcal conjuga te vaccine, 13 valent Clayton Mcfadden MD Work Phone: [facility] 01-17-2017 influenza, high dose seasonal, preservative-free Clayton Mcfadden MD Work Phone: [facility] 01-12-2016 pneumococcal polysaccharide vaccine, 23 valent Clayton Mcfadden MD Work Phone: [facility] 12-16-2015 influenza, high dose seasonal, preservative-free Clayton Mcfadden MD Work Phone: [facility] 01-08-2015 influenza, injectabl e, quadrivalent, preservative free Clayton Mcfadden MD Work Phone: [facility] 01-08-2015 influenza, seasonal, injectable, preservative free Clayton Mcfadden MD Work Phone: [facility] 12-24-2013 zoster vaccine, live Clayton cMfadden MD Work Phone: [facility] 08-06-2013 pneumococcal polysaccharide vaccine, 23 valent Clayton Mcfadden MD Work Phone: [facility] 12-23-2012 influenza, seasonal, injectable, preservative free Clayton Mcfadden MD Work Phone: [facility] Payers Date Payer Category Payer Unknown [id number] 2022 Unknown [id number] 2022 Private Health Insurance [employer] mb[employer] [id number] 2022 Unknown AARP AARP [id number] 2022-Present [address] [place] [address] [id number] 2010 Medicare [id number] 1959 Medicare [id number] [id number] 1959 Self-pay [id number] 1959 Self-pay [id number] 1959 Unknown [id number] 2.16.840.1.682586.19 1940 Unknown [id number] 2.16.840.1.437111.3.579.2 .727 1940 Unknown [id number] 2.16.840.1.032784.3.579.2 .727 1940 Unknown [id number] 2.16.840.1.370144.3.579.2 .732 1940 Unknown [id number] 2.16.840.1.306025.3.579.2 .593 1940 Unknown [id number] 2.16.840.1.451699.3.579.2 .593 1940 Unknown [id number] 2.16.840.1.151150.3.579.2 .593 1940 Unknown [id number] 2.16.840.1.768931.3.579.2 .593 1940 Unknown [id number] 2.16.840.1.544597.3.579.2 .593 1940 Unknown [id number] 2.16.840.1.689888.3.579.2 .593 1940 Unknown [id number] 2.16.840.1.724980.3.579.2 .593 1940 Unknown [id number] 2.16.840.1.972285.3.579.2 .593 194 Unknown [id number] 2.16.840.1.462475.3.579.2 .593 1940 Unknown [id number] 2.16.840.1.899875.3.579.2 .593 1940 Unknown [id number] 2.16.840.1.568864.3.579.2 .593 1940 Unknown [id number] 2.16.840.1.167848.3.579.2 .593 1940 Unknown [id number] 2.16.840.1.824787.3.579.2 .593 1940 Unknown [id number] 2.16.840.1.910792.3.579.2 .593 1940 Unknown [id number] 2.16.840.1.433874.3.579.2 .593 1940 Unknown [id number] 2.16.840.1.067031.3.579.2 .173 1940 Unknown [id number] 2.16.840.1.349382.3.579.2 .173 1940 Unknown [id number] 2.16.840.1.088828.3.579.2 .173 1940 Unknown [id number] 2.16.840.1.985236.3.579.2 .173 1940 Unknown [id number] 2.16.840.1.631749.3.579.2 .173 1940 Unknown [id number] 2.16.840.1.199489.3.579.2 .173 1940 Unknown [id number] 2.16.840.1.899988.3.579.2 .1259 1940 Unknown [id number] 2.16.840.1.349182.3.579.2 .1259 1940 Unknown [id number] 2.16.840.1.258625.3.579.2 .1259 1940 Unknown [id number] 2.16.840.1.136313.3.579.2 .1259 1940 Unknown [id number] 2.16.840.1.878869.3.579.2 .1259 Unknown [id number] 2.16.840.1.817190.3.579.2 .531 Social History Date Type Detail Facility Start: 10-25-2022 End: 06-25-2023 Sex Assigned At [employer] Other Start: 05-12-2019 Tobacco smoking status Never smoked tobacco (finding) [facility] Start: 1940 Sex Assigned At Male [facility] Start: 03-01-2022 End: 11-12-2023 Tobacco smoking status MAIS Ex-smoker [employer] Phone: Start: 02-20-1964 End: 01-08-1995 History of tobacco use Current smoker [employer] Phone: Start: 02-20-1964 End: 01-08-1995 History of tobacco use Cigarette Smoker [employer] Phone: Start: 03-01-2022 End: 11-12-2023 Tobacco use and exposure Smokeless tobacco non-user [employer] Phone: Start: 03-01-2022 End: 05-23-2023 Alcohol intake Lifetime non-drinker (finding) [employer] Phone: Start: 1940 Sex Assigned At Not on file [employer] Phone: Tobacco smoking stat us MAIS Tobacco smoking consumption unknown [facility] Start: 10-25-2022 End: 06-25-2023 History of Social function [facility] Fear of Current or Ex-Partner Not on file [facility] Within the last year , have you been humiliated or emotionally abused in other ways by your partner or ex-partner? No [facility] Do you belong to any clubs or organizations such as latter-day groups, unions, fraternal or athletic groups, or [...] titrate blood sugars One touch Ultra Blue. [id number] Start: 03-23-2023 End: 06-21-2023 1 each by Other route in the morning and 1 each in the evening and 1 each before bedtime. Use as instructed. Sliding scale to titrate blood sugars One touch Ultra Blue DX: E11.22, N18.31, Z79.4. [id number] Start: 06-07-2023 End: 01-09-2024 1 each by Other route in the morning and 1 each in the evening and 1 each before bedtime. Use as instructed. Sliding scale to titrate blood sugars One touch Ultra Blue DX: E11.22, N18.31, Z79.4. [id number] Start: 01-09-2024 End: 07-07-2024 Functional Status Date Assessment Result Facility 11-23-2021 Functional Status N/A [facility] Clinical Notes 08-16-2021 to 01-03-2024 Clayton [...] exacerbation of chronic obstructive pulmonary disease (COPD) ([facility]) (Primary) Acute problem which is recurrent in [...] evaluation and management. documented in this encounter [facility] 12-17-2023 History of Presen t illness [...] dipstick manually resulted documented in this encounter [facility] 11-12-2023 History of Presen t illness Narrative [...] 0.70 - 1.30 mg/dL Final [facility] EGFR-AF TOGOLESE 05/18/2023 >60 >=60 Final [facility] EGFR-NON AF TOGOLESE 05/18/2023 59 (L) >=60 Final BUN CREATININE [...] hearing was improved. documented in this encounter [facility] 01-31-2023 Evaluation note Encounter Date Diagnosis [...] were answered he understands agrees the plan. [employer] Other 02-16-2023 NoteEXAMINATION: XR CHEST 2 V [...] by: ULISSES FRANCO Date: 2022-04-06 08:00[facility]02-09-2023 History of Present illness Narrative* Horace Parra DO - 03/30/2022 10:13 AM EST Images from the original note were not included. EMERGENCY TRIAGE, TREAT AND TRANSPORT (ET3) DOCUMENTATION OF TELEHEALTH VISIT Date / Time: 03/27/20222339 Name: Chema Childs : 1940 SSN: (Not on file) EMS Agency: [facility] [x] Verbal consent obtained [] [...] by: Horace Parra DO documented in this [id number] Evaluation note* Encounter Date Diagnosis Assessment Notes [...] with this plan, and denies any questions. [employer] Other 10-05-2022 Hospital Discharge instructions Patient Education [...] prostate. Follow these instructions at home: Take [id number] and prescription medicines only as told by [...] 02/02/2001 Document Revised: 04/20/2018 Document Reviewed: 10/26/2016 [employer] Patient Education 2020 [employer]. Follow Up Care 11/01/2021 10:45:28 With:MY GALDAMEZ, KONG Brown, URL Address: [address] [place] [address] When:3 months [facility] 06-28-2022 Evaluation note* Encounter Date Diagnosis Assessment Notes Treatment Notes Treatment Clinical Notes Jul, Abdominal aortic aneurysm (AAA) 3.0 cm to 5.5 cm in diameter in male (ICD-10 - I71.4) Jul, Other Aortic ulcer wi th small aneurysm Review of the images today [id number] ulcer of the infrarenal aorta that does [...] understand and all the questions were answered. [employer] Other Evaluation + Plan note Future Appointments Appointment Date:02/22/2022 01:20:00 PM Scheduled Provider:KONG PEPE PA-C Location:[facility] Appointment Type:URO Office Visit [facility] evaluation noteNo assessment information available [facility] Work Phone: Evaluation note* Diagnosis BPH with obstruction/lower urinary tract symptoms Hypertrophy of prostate with urinary obstruction and other lower urinary tract symptoms (LUTS) Dysuria [facility]: [facility] note* Diagnosis Fall, initial encounter- Primary Shortness of breath Tachycardia Tachycardia, unspecified [facility] Diagnosis Dysuria Frequency of micturition Urinary frequency documented in this encounter [facility] Clear Standards note* Diagnosis Type 2 diabetes mellitus with stage 3a chronic kidney disease, with long-term current use of insulin (HCC) ([facility]) documented in this encounter [facility]* Diagnosis Acute right-sided low back pain without sciatica documented in this encounter [facility]* Diagnosis Type 2 diabetes mellitus with stage 3a chronic kidney disease, with long-term current use of insulin (HCC) ([facility])- Primary Gastroesophageal reflux disease without esophagitis Esophageal reflux Acquired hypothyroidism ([facility]) Unspecified hypothyroidism documented in this encounter [facility]* Diagnosis Acute exacerbation of chronic obstructive pulmonary disease (COPD) ([facility])- Primary Obstructive chronic bronchitis with exacerbation Interstitial lung disease ([facility]) Postinflammatory pulmonary fibrosis Panlobular emphysema ([facility]) Other emphysema Polypharmacy Issue of repeat prescriptions documented in this encounter [facility]* Diagnosis Benign essential hypertension ([facility]) Essential hypertension, benign Hypertensive nephropathy ([facility]) Unspecified hypertensive kidney disease with chronic kidney disease stage I through stage IV, or unspecified Stage 3a chronic kidney disease ([facility]) ([facility]) Microalbuminuria Proteinuria Type 2 diabetes mellitus with stage 3a chronic kidney disease, with long-term current use of insulin (HCC) ([facility]) Mixed hyperlipidemia ([facility]) Mixed hyperlipidemia Hyperuricemia Other abnormal blood chemistry Polypharmacy Issue of repeat prescriptions Chronic respiratory failure with hypoxia ([facility]) Ex-smoker Personal history of tobacco use, presenting hazards to health Overweight Infrarenal abdominal aortic aneurysm, without rupture ([facility]) Atherosclerosis of aorta ([facility]) Atherosclerosis of aorta documented in this encounter [facility] Healthcare[facility] general Narrative - Reported* Type Description Date Medical History high cholestrol Medical History high blood pressure Medical History acid reflux Surgical History hemorrhoidectomy Hospitalization History acid reflux - observatio n [employer] Other History general Narrative - Reported* Type Description Date Medical History high cholestrol Medical History high blood pressure Medical History acid reflux Surgical History hemorrhoidectomy Surgical History Laser Surgery on prostate Hospitalization History acid reflux - observatio n [employer] Other Hospital course Narrative No data available for this section [facility] progress note No data available for this section [facility] [place] Summary Purpose Family History No Family History [...] section and content) DATE CREATED AUTHOR 08/12/2021 [facility] dical Specialist DATE CREATED AUTHOR AUTHOR'S ORGANIZ ATION 03/15/2022 [facility] DATE CREATED AUTHOR AUTHOR'S ORGANIZ ATION 07/01/2022 [facility] DATE CREATED AUTHOR AUTHOR'S ORGANIZ ATION 07/04/2022 [facility] DATE CREATED AUTHOR AUTHOR'S ORGANIZ ATION 12/02/2022 [facility] DATE CREATED AUTHOR AUTHOR'S ORGANIZ ATION 02/24/2023 [facility] DATE CREATED AUTHOR AUTHOR'S ORGANIZ ATION 01/05/2024 [facility] dical Specialists EPIC REASON FOR VISIT (unrecogniz [...] Active Oumar Haynes MD Attending Provider Active [employer]b Developer Relationship Specialty Start Date End Date Clayton Mcfadden MD [address] [place] [address] PCP - General 03/01/22 Vb Developer Relationship Specialty Start Date End Date Clayton Mcfadden MD [address] [place] [address] PCP - General 03/01/22 Vb Developer Relationship Specialty Start Date End Date Clayton Mcfadden MD [address] [place] [address] (Fax) PCP - ACO Reach 07/13/22 Clayton Mcfadden MD [address] [place] [address] PCP - General Family Medicine 08/03/22 Briseida Paez, RN Registered Nurse Family Medicine 03/16/23 Vb Developer Relationship Specialty Start Date End Date Clayton Mcfadden MD [address] [place] [address] (Fax) PCP - ACO Reach 07/13/22 Clayton Mcfadden MD [address] [place] [address] (Fax) PCP - General Family Medicine 08/03/22 Briseida Paez, RN Registered Nurse Family Medicine 03/16/23 Vb Developer Relationship Specialty Start Date End Date Clayton Mcfadden MD [address] [place] [address] (Fax) PCP - ACO Reach 07/13/22 Clayton Mcfadden MD [address] [place] [address] (Fax) PCP - General Family Medicine 08/03/22 Briseida Paez, RN Registered Nurse Family Medicine 03/16/23 Vb Developer Relationship Specialty Start Date End Date Clayton Mcfadden MD [address] [place] [address] (Fax) PCP - ACO Reach 07/13/22 Clayton Mcfadden MD [address] [address] (Fax) PCP - General Family Medicine 08/03/22 Briseida Paez RN Registered Nurse Family Medicine 03/16/23 Vb Developer Relationship Specialty Start Date End Date Clayton Mcfadden MD [address] [place] [address] (Fax) PCP - ACO Reach 07/13/22 Clayton Mcfadden MD [address] [place] [address] PCP - General Family Medicine 08/03/22 Briseida Paez RN Registered Nurse Family Medicine 03/16/23 Vb Developer Relationship Specialty Start Date End Date Clayton Mcfadden MD [address] [place] [address] (Fax) PCP - ACO Reach 07/13/22 Clayton Mcfadden MD [address] [place] [address] PCP - General Family Medicine 08/03/22 Briseida [...] BE BASED ON THE PRIMARY CLINICAL RECORDS. [employer] [facility]. provides no warranty or guarantee of the accuracy or completeness of information in this document.
[2024-03-24 16:43] LABS: Creatinine Urine Random 74.82 mg/dL (20.00-300.00); Microalbum Creatinine Ratio Ur 34.7 mg/g (0.0-29.9); Microalbumin Urine Random 2.6 mg/dL (<=30.0)
== END 2024-03-24 16:23 | disposition home or self-care (01) ==
LOC: LAB 16:22
PROVIDERS: PCP Family Medicine; Visit Provider Family Medicine
DX: E11.22 Type 2 diabetes mellitus with diabetic chronic kidney disease (principal); N18.31 Chronic kidney disease, stage 3a; Z79.4 Long term (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 of insulin; J44.1 Chronic obstructive pulmonary disease with (acute) exacerbation; E03.9 Hypothyroidism, unspecified; M1A.49X1 Other secondary chronic gout, multiple sites, with tophus (tophi); Z51.81 Encounter for therapeutic drug level monitoring
CPT/HCPCS: 36415; 82043; 82570; 83036; 84443; 84550; 87420; 87804; 87811

== ENCOUNTER 2024-04-02 09:54 | Inpatient (IN) | payer MEDICARE, SELFPAY ==
[2024-04-02] VITALS (19 sets, daily range): BP systolic 136–157; BP diastolic 69–94; PULSE 67–105; TEMP 36.6–36.9; O2SAT 90–97; BMI 25.8; BMI 25.1
--- NOTE | 2024-04-02 09:56 | ECG_ITS ---
[facility] Test Date: 2024-04-02 Pat Name: CHEMA ALTMAN Department: Room: - Gender: Male Curber: : 1940 Requested By: KANG MCFADDEN Order Number: [id number] Reading MD: REEMA WAITE Measurements Intervals [place] Rate: 90 P: 68 CO: 146 QRS: 58 QRSD: 92 T: 60 QT: 352 QTc: 400 Interpretive Statements 1100 Sinus rhythm 1470 with occasional supraventricular premature complexes [address] depression 9150 abnormal ECG Compared to ECG 08/31/2022 12:37:14 Sinus bradycardia no longer present ST (T wave) deviation still present Electronically Signed On 04-04-2024 5:25:46 EST by REEMA WAITE
--- NOTE | 2024-04-02 09:56 | CT_ITS ---
[address] [address] Patient Name: CHEMA ALTMAN MRN: [id number] date: 1940 Sex: M Assigned Patient Location: ER Current Patient Location: Accession/Order Number: [id number] Exam Date: 04/02/2024 10:35 Report Date: 04/02/2024 11:23 At the request of: MARY ESTEBAN Procedure: CT angio chest EXAMINATION: CT angio chest HISTORY: poss PE COMPARISON: 09/20/2022, 03/24/2024 TECHNIQUE: Multi-planar CT images were created with IV contrast. Axial, Coronal, and Sagittal images. Dose reduction techniques were achieved by using automated exposure control and/or adjustment of mA and/or kV according to patient size and/or use of iterative reconstruction technique. FINDINGS: LUNGS: Mild bibasilar infiltrates with bronchial thickening. Moderate partial consolidation of the right upper lobe. PLEURA: 1 cm right and 0.5 cm left pleural effusions. VASCULATURE: Normal postcontrast opacification of the central pulmonary arterial tree with no filling defect to suggest a pulmonary embolus EMILY: Small right hilar lymph nodes MEDIASTINUM: Normal-sized prevascular pretracheal and subcarinal lymph nodes CARDIAC: No enlargement or pericardial effusion Coronary arteries: Heavy calcifications AORTA: No aortic aneurysm or dissection. Moderate calcific atherosclerosis. CHEST WALL: No mass or axillary adenopathy. BONES: No acute fracture. Moderate bilateral glenohumeral joint osteoarthropathy LIMITED ABDOMEN: No suspicious findings. Limited images of the upper abdomen. OTHER: Negative. CT/CT angio chest IMPRESSION: No central pulmonary thromboembolic disease Right upper lobe pneumonia Bibasilar atelectasis with small pleural effusions Electronically authenticated by: ULISSES FRANCO Date: 04/02/2024 11:23
[2024-04-02 10:02] LABS: Basophils Percent Auto 0.1 % (0.2-2.0); Eosinophils Absolute Auto 0.1 10^3/uL (0.0-0.7); Eosinophils Percent Auto 0.3 % (0.9-7.0); Hematocrit 41.9 % (42.0-54.0); Hemoglobin 14.4 g/dL (14.0-18.0); Immature Granulocytes Pct Auto 1.5 % (0.0-0.5); Lymphocytes Absolute Auto 1.1 10^3/uL (1.2-3.8); Lymphocytes Percent Auto 5.4 % (20.5-60.0); Mean Corpuscular HGB Conc 34.4 g/dL (29.9-35.2); Mean Corpuscular Hemoglobin 32.6 pg (25.9-34.0); Mean Corpuscular Volume 94.8 fL (80.0-94.0); Mean Platelet Volume 9.7 fL (9.5-13.5); Monocytes Percent Auto 4.8 % (1.7-12.0); Neutrophils Absolute Auto 18.2 10^3/uL (1.4-6.5); Neutrophils Percent Auto 87.9 % (43.0-75.0); Platelet Count 188 10^3/uL (150-450); Red Blood Count 4.42 10^6/uL (4.70-6.10); Red Cell Distribution Width 12.9 % (11.0-15.0); White Blood Count 20.7 10^3/uL (4.0-11.0)
--- NOTE | 2024-04-02 10:03 | ED.GENADUL1 ---
HPI HPI - General Adult General Chief complaint: Shortness of Breath/Dyspnea Stated complaint: SOB Time Seen by Provider: 04/02/24 09:55 Mode of arrival: ambulance History of Present Illness HPI narrative: Patient presents to ED complaining of shortness of breath. He said he was diagnosed with COVID 2 weeks ago and was starting to feel better but now has been feeling worse over the past 2 days. Patient called EMS and was brought in. He did get a breathing treatment and route. Upon their arrival he was 90% on room air so he was placed on 2 L nasal cannula and now he is 95%. Patient states he has been on and off oxygen but is not chronically on oxygen. He does wear CPAP at night. He said he feels like everything is stuck in his chest and he cannot cough it up. Patient does have wheezing and rhonchi throughout. Patient does not have a fever here. He denies any nausea vomiting. He said he has no energy and complains of generalized weakness as well. He is alert and oriented answering questions appropriately. Related Data Home Medications ?Medication ?Instructions ?Recorded ?Confirmed albuterol sulfate 2.5 mg/3 mL 2.5 mg inhalation Q8H PRN 04/02/24 04/02/24 (0.083 %) solution for nebulization shortness of breath or wheezing albuterol sulfate 90 mcg/actuation 2 puff inhalation Q4H PRN 04/02/24 04/02/24 aerosol inhaler shortness of breath or wheezing allopurinol 100 mg tablet 100 mg PO DAILY 04/02/24 04/02/24 atorvastatin 20 mg tablet 20 mg PO QPM 04/02/24 04/02/24 bioflavonoid products tablet tab PO 04/02/24 brimonidine 0.2 % eye drops 1 drp ophthalmic (eye) BID 04/02/24 04/02/24 budesonide 160 mcg-glycopyr 9 2 inh inhalation BID 04/02/24 04/02/24 mcg-formot 4.8 mcg/actuation HFA inhaler (Breztri Aerosphere) insulin aspart 1 sliding scale dose subcut BID 04/02/24 04/02/24 (niacinamide)(U-100) 100 unit/mL(3 mL) subcutaneous pen (Fiasp FlexTouch U-100 Insulin) latanoprost 0.005 % eye drops 1 drp ophthalmic (eye) BEDTIME 04/02/24 04/02/24 levothyroxine 88 mcg tablet 88 mcg PO .ACB 04/02/24 04/02/24 losartan 50 mg tablet 50 mg PO DAILY 04/02/24 04/02/24 magnesium oxide 400 mg (241.3 mg 400 mg PO DAILY 04/02/24 04/02/24 magnesium) tablet metformin 750 mg tablet,extended 750 mg PO DAILY@1700 04/02/24 04/02/24 release 24 hr omeprazole 40 mg capsule,delayed 40 mg PO .ACB 04/02/24 04/02/24 release timolol maleate 0.5 % eye drops 1 drp ophthalmic (eye) BID 04/02/24 04/02/24 Allergies Allergy/AdvReac Type Severity Reaction Status Date / Time erythromycin base Allergy Severe Rash Verified 04/02/24 10:40 levofloxacin Allergy Severe Rash Verified 04/02/24 11:54 Sulfa (Sulfonamide Allergy Severe Rash Verified 04/02/24 11:54 Antibiotics) metformin AdvReac Intermediate Diarrhea Verified 04/02/24 11:54 Opioid HPI Opioid Management Most Recent Opioid Data: No Data to Display Review of Systems ROS Status of ROS 10 or more systems reviewed and unremarkable except as noted in history and below PFSH PFSH Social History Little interest or pleasure in doing things: several days Feeling down, depressed, or hopeless: not at all Exam Narrative Exam Narrative: Time Seen: [] Vital Signs: [Per nurse's notes.] General: [Alert] Skin: [Warm, dry, no rash.] Head: [Normocephalic, atraumatic.] Neck: [Supple, trachea midline.] Eye: [Pupils are equal, round and reactive to light, extraocular movements are intact, normal conjunctiva.] Ears, nose, mouth and throat: oral mucosa moist. Cardiovascular: [Regular rate and rhythm, no murmur.] Respiratory: Mild hypoxia, wheezing and rhonchi throughout, worse on the right Chest wall: [No tenderness, no deformity.] Gastrointestinal: [Soft, nontender, non distended, normal bowel sounds.] MSK: 5 out of 5 muscle strength x 4 extremities no calf pain or edema Lymphatics: [No lymphadenopathy.] Psychiatric: [Cooperative, appropriate mood & affect.] Neurological: [Alert and oriented to person, place, time, and situation, no focal neurological deficit observed.] Constitutional Vital Signs, click to edit/add: Last Vital Signs Temp 98.2 F 04/02/24 09:38 Pulse 96 H 04/02/24 12:31 Resp 18 04/02/24 12:31 BP 157/92 H 04/02/24 12:31 Pulse Ox 92 L 04/02/24 12:00 O2 Del Method Nasal Cannula 04/02/24 10:16 O2 Flow Rate 2 04/02/24 10:16 Course Vital Signs Vital signs: Vital Signs Temperature 98.2 F 04/02/24 09:38 Pulse Rate 96 H 04/02/24 09:38 Respiratory Rate 24 H 04/02/24 09:38 Blood Pressure 148/78 H 04/02/24 09:38 Pulse Oximetry 90 L 04/02/24 09:38 Oxygen Delivery Method Room Air 04/02/24 09:38 Temperature 98.2 F 04/02/24 09:38 Pulse Rate 96 H 04/02/24 12:31 Respiratory Rate 18 04/02/24 12:31 Blood Pressure 157/92 H 04/02/24 12:31 Pulse Oximetry 92 L 04/02/24 12:00 Oxygen Delivery Method Nasal Cannula 04/02/24 10:16 Oxygen Delivery Flow Rate 2 04/02/24 10:16 Medical Decision Making [facility] Narrative Medical decision making narrative: Patient's labs show an elevated white blood cell count of 20. Patient has no PE on his CT angio chest but does have a right upper lobe pneumonia. Patient is requiring supplemental oxygenation. Patient was started on IV antibiotics. Patient will be admitted for further care of his pneumonia. Dr. Bourne was in the ED to see the patient. Patient and family are comfortable care plan for admission and patient is stable in ED prior to transfer up to the floor. Differential Diagnosis Differential Diagnosis: Pneumonia, PE, upper respiratory infection Lab Data Lab results reviewed: Yes I reviewed the patient's lab results Labs: Lab Results 04/02/24 Range/Units 09:48 WBC 20.7 H (4.0-11.0) 10^3/uL RBC 4.42 L (4.70-6.10) 10^6/uL Hgb 14.4 (14.0-18.0) g/dL Hct 41.9 L (42.0-54.0) % MCV 94.8 H (80.0-94.0) fL MCH 32.6 (25.9-34.0) pg MCHC 34.4 (29.9-35.2) g/dL RDW 12.9 (11.0-15.0) % Plt Count 188 (150-450) 10^3/uL MPV 9.7 (9.5-13.5) fL Neut % (Auto) 87.9 H (43.0-75.0) % Lymph % (Auto) 5.4 L (20.5-60.0) % [place] % (Auto) 4.8 (1.7-12.0) % Eos % (Auto) 0.3 L (0.9-7.0) % Baso % (Auto) 0.1 L (0.2-2.0) % Neut # (Auto) 18.2 H (1.4-6.5) 10^3/uL Lymph # (Auto) 1.1 L (1.2-3.8) 10^3/uL [place] # (Auto) 1.0 H (0.3-0.8) 10^3/uL Eos # (Auto) 0.1 (0.0-0.7) 10^3/uL Baso # (Auto) 0.0 (0.0-0.1) 10^3/uL Abs Immat Gran (auto) 0.30 H (0.00-0.03) 10^3/uL Imm/Tot Granulo (auto) 1.5 H (0.0-0.5) % PT 11.4 (9.0-11.6) sec INR 1.08 Sodium 135 L (136-145) mmol/L Potassium 4.0 (3.5-5.1) mmol/L Chloride 99 (98-107) mmol/L Carbon Dioxide 29.8 (21.0-32.0) mmol/L Anion Gap 10.2 BUN 21.0 H (7.0-18.0) mg/dL Creatinine 1.14 (0.70-1.30) mg/dL Est GFR ( Amer) >60 (>=60 mL/min/1.73m^2) Est GFR (Non-Af Amer) >60 (>=60 mL/min/1.73m^2) BUN/Creatinine Ratio 18.4 Glucose 212 H (74-106) mg/dL Lactate 1.6 (0.4-2.0) mmol/L Calcium 9.0 (8.5-10.1) mg/dL Total Bilirubin 1.1 H (0.2-1.0) mg/dL AST 14 L (15-37) U/L ALT 26 (16-63) U/L Alkaline Phosphatase 67 (46-116) U/L Troponin I High Sens 40.5 (4.0-76.1) pg/mL Total Protein 6.8 (6.4-8.2) g/dL Albumin 2.5 L (3.4-5.0) g/dL Globulin 4.3 g/dL Albumin/Globulin Ratio 0.[address] scan - chest: Radiologist's impression: ITS Impressions Chest CTA 04/02/24 09:56 IMPRESSION: No central pulmonary thromboembolic disease Right upper lobe pneumonia Bibasilar atelectasis with small pleural effusions Electronically authenticated by: ULISSES FRANCO Date: 04/02/2024 11:23 ECG Data Attestation: I personally reviewed and interpreted this ECG as follows: Interpretation: EKG INTERPRETATION Time: [] 941 Rate: [] 90 Rhythm: _ [] Normal sinus rhythm occasional PVC ST segments: _ [] No acute ST elevation or depression T waves: _ [] Ectopy: _ [] P wave/IL interval: _ [] QRS interval: _ [] QT interval: _ [] Comparison: _ [] Comparison EKG date: [] Performed by: [self] Discharge Plan Discharge Chief Complaint: Shortness of Breath/Dyspnea Clinical Impression: Pneumonia, Hypoxia Patient Disposition: Admitted As Inpatient Time of Disposition Decision: 13:04 Condition: Fair Prescriptions / Home Meds: No Action losartan 50 mg tablet 50 mg PO DAILY atorvastatin 20 mg tablet 20 mg PO QPM allopurinol 100 mg tablet 100 mg PO DAILY omeprazole 40 mg capsule,delayed release(DR/EC) 40 mg PO .ACB levothyroxine 88 mcg tablet 88 mcg PO .ACB magnesium oxide 400 mg (241.3 mg magnesium) tablet 400 mg PO DAILY metformin 750 mg tablet extended release 24 hr 750 mg PO DAILY@1700 [facility] Aerosphere 160-9-4.8 mcg/actuation HFA aerosol inhaler 2 inh INHALATION BID bioflavonoid products Tablet PO albuterol sulfate 90 mcg/actuation HFA aerosol inhaler 2 puff INHALATION Q4H PRN (Reason: shortness of breath or wheezing) albuterol sulfate 2.5 mg /3 mL (0.083 %) solution for nebulization 2.5 mg inhalation Q8H PRN (Reason: shortness of breath or wheezing) brimonidine 0.2 % drops 1 drp OPHTHALMIC (EYE) BID latanoprost 0.005 % drops 1 drp OPHTHALMIC (EYE) BEDTIME timolol maleate 0.5 % drops 1 drp OPHTHALMIC (EYE) BID Fiasp FlexTouch U-100 Insulin 100 unit/mL (3 mL) insulin pen 1 sliding scale dose SUBCUT BID Print Language: Austrian Referrals: KANG MCFADDEN [Primary Care Provider] - 1 week
[2024-04-02] MEDS: DEXAMETHASONE SOD PHOS 10 MG/ML VIAL IV (10:07)
[2024-04-02 10:13] LABS: Alanine Aminotransferase 26 U/L (16-63); Albumin Globulin Ratio 0.6; Albumin Level 2.5 g/dL (3.4-5.0); Alkaline Phosphatase 67 U/L (46-116); Anion Gap 10.2; Aspartate Amino Transferase 14 U/L (15-37); BUN Creatinine Ratio 18.4; Bilirubin Total 1.1 mg/dL (0.2-1.0); Carbon Dioxide 29.8 mmol/L (21.0-32.0); Chloride 99 mmol/L (98-107); Estimated GFR (African America >60 (>=60 mL/min/1.73m^2); Estimated GFR (Non-African Ame >60 (>=60 mL/min/1.73m^2); Globulin 4.3 g/dL; Glucose 212 mg/dL (74-106); Sodium 135 mmol/L (136-145); Total Protein 6.8 g/dL (6.4-8.2)
[2024-04-02 10:15] LABS: Lactate/Lactic Acid 1.6 mmol/L (0.4-2.0)
[2024-04-02] MEDS: IPRATROPIUM/ALBUTEROL SULFATE 3 ML AMPUL.NEB IH ×3 (10:15→22:48)
[2024-04-02 10:16] LABS: Troponin I High Sensitivity 40.5 pg/mL (4.0-76.1)
[2024-04-02 10:35] LABS: INR 1.08; Prothrombin Time 11.4 sec (9.0-11.6)
[2024-04-02] MEDS: PIPERACILLIN SODIUM/TAZOBACTAM 3.375 GM in 0.9 % SODIUM CHLORIDE 50 ML IV ×2 (12:09→21:51)
--- NOTE | 2024-04-02 12:44 | P.HP_ITS ---
HPI H&P: HPI History of Present Illness Chief complaint: SOB PNEUMONIA POST- COVID HYPOXIA Narrative: Patient presented to the emergency with increasing cough and shortness of breath, about 8 or 9 days ago that was diagnosed with COVID-19, does not sound acuity received Paxlovid, in the ER found to have right upper lobe pneumonia and pleural effusion, patient admitted for workup and treatment of same secondary to the hypoxia with O2 sat percentage of 90% on 2 L but he does not normally wear supplemental oxygen When I saw patient in the emergency room, he was resting fairly comfortably in the cot, does have cough throughout the evaluation, no other specific complaints, denies chest pain Opioid HPI Opioid Management Most Recent Pain and Opioid Data: Last Pain Scale 0 04/02/24 17:28 04/02/24 Last Pain Assessment 04/02/24 19:00 Last ORT Total Score 0 04/02/24 13:38 04/02/24 Last ORT Risk Category Low Risk 04/02/24 13:38 04/02/24 Review of Systems ROS Status of ROS 10 or more systems reviewed and unremark able except as noted in history and below PFSH PFS Medical History (Updated 04/02/24 @ 13:35 by Janis Sumner) Diabetes 1.5, 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 Known occupational exposures/hazards: No Highest level of school completed/degree received: high school graduate Are you now , , , , never or living with a partner: In a typical week, how many times do you talk on the telephone with family, friends, or neighbors: 3 or more times per week How often do you get together with friends or relatives: 3 or more times per week How often do you attend adventist or anabaptism services: 4 or more times per year Do you belong to any clubs or organizations such as adventist groups unions, fraternal or athletic groups, or school groups: no Total score: 3 Score interpretation: A score of greater than or equal to 2 indicates the lowest level of social isolation. Little interest or pleasure in doing things: not at all Feeling down, depressed, or hopeless: not at all Feel stressed/tense/nervous/anxious/difficulty sleeping: not at all Due to disability, difficulty making decisions: No Do you think of yourself as: straight/heterosexual Gender Identity: male Meds Home Medications and Allergies Home Medications ?Medication ?Instructions ?Recorded ?Confirmed ?Type albuterol sulfate 2.5 mg/3 mL 2.5 mg inhalation Q8H PRN 04/02/24 04/02/24 History (0.083 %) solution for nebulization shortness of breath or wheezing albuterol sulfate 90 mcg/actuation 2 puff inhalation Q4H PRN 04/02/24 04/02/24 History aerosol inhaler shortness of breath or wheezing allopurinol 100 mg tablet 100 mg PO DAILY 04/02/24 04/02/24 History atorvastatin 20 mg tablet 20 mg PO QPM 04/02/24 04/02/24 History bioflavonoid products tablet tab PO 04/02/24 History brimonidine 0.2 % eye drops 1 drp ophthalmic (eye) BID 04/02/24 04/02/24 History budesonide 160 mcg-glycopyr 9 2 inh inhalation BID 04/02/24 04/02/24 History mcg-formot 4.8 mcg/actuation HFA inhaler (Breztri Aerosphere) insulin aspart 1 sliding scale dose subcut BID 04/02/24 04/02/24 History (niacinamide)(U-100) 100 unit/mL(3 mL) subcutaneous pen (Fiasp FlexTouch U-100 Insulin) latanoprost 0.005 % eye drops 1 drp ophthalmic (eye) BEDTIME 04/02/24 04/02/24 History levothyroxine 88 mcg tablet 88 mcg PO .ACB 04/02/24 04/02/24 History losartan 50 mg tablet 50 mg PO DAILY 04/02/24 04/02/24 History magnesium oxide 400 mg (241.3 mg 400 mg PO DAILY 04/02/24 04/02/24 History magnesium) tablet metformin 750 mg tablet,extended 750 mg PO DAILY@1700 04/02/24 04/02/24 History release 24 hr omeprazole 40 mg capsule,delayed 40 mg PO .ACB 04/02/24 04/02/24 History release timolol maleate 0.5 % eye drops 1 drp ophthalmic (eye) BID 04/02/24 04/02/24 History Allergies Allergy/AdvReac Type Severity Reaction Status Date / Time erythromycin base Allergy Severe Rash Verified 04/02/24 10:40 levofloxacin Allergy Severe Rash Verified 04/02/24 11:54 Sulfa (Sulfonamide Allergy Severe Rash Verified 04/02/24 11:54 Antibiotics) metformin AdvReac Intermediate Diarrhea Verified 04/02/24 11:54 Exam Constitutional Vital Signs, click to edit/add: Last Vital Signs Temp 98.2 F 04/02/24 09:38 Pulse 96 H 04/02/24 12:31 Resp 18 04/02/24 12:31 BP 157/92 H 04/02/24 12:31 Pulse Ox 92 L 04/02/24 12:00 O2 Del Method Nasal Cannula 04/02/24 10:16 O2 Flow Rate 2 04/02/24 10:16 Documenting provider has reviewed patient's vital signs: yes Common normals: apparent distress (Cough throughout the evaluation) Chest Common normals: inspection of chest normal Respiratory Common normals: no retractions; abnormal respiratory effort (Cough throughout the evaluation) Auscultation: rhonchi; no wheezes Cardio Common normals: regular rate and regular rhythm GI Common normals: Normal to inspection, nondistended, normoactive bowel sounds present and soft to palpation Extremity Common normals: normal to inspection, full ROM and no clubbing, cyanosis or edema Results Labs Labs: Short CBC 04/02/24 Range/Units 09:48 WBC 20.7 H (4.0-11.0) 10^3/uL Hgb 14.4 (14.0-18.0) g/dL Hct 41.9 L (42.0-54.0) % Plt Count 188 (150-450) 10^3/uL BMP 04/02/24 09:48 Sodium 135 L Potassium 4.0 Chloride 99 Carbon Dioxide 29.8 BUN 21.0 H Creatinine 1.14 Glucose 212 H Calcium 9.0 Liver Function 04/02/24 Range/Units 09:48 Total Bilirubin 1.1 H (0.2-1.0) mg/dL AST 14 L (15-37) U/L ALT 26 (16-63) U/L Alkaline Phosphatase 67 (46-116) U/L Albumin 2.5 L (3.4-5.0) g/dL Assessment and Plan Assessment and Plan (1) Hypoxia: (2) Pneumonia: Plan Admission findings: Sinus tachycardia, respiratory distress, acute hypoxia with O2 sat of 90% on 2 L, patient does not normally use supplemental oxygen, leukocytosis, hyponatremia secondary to right upper lobe pneumonia and right- sided pleural effusion complicated by recent COVID-19 diagnosis Right upper lobe pneumonia with sepsis (sinus tachycardia, respiratory distress, hypoxia, leukocytosis with known infectious source of lungs) with acute exacerbation of COPD-aerosol treatments, try to obtain sputum culture, IV antibiotics, Semiacute [id number] still 1 day with inside the quarantine. Likely can come out of quarantine tomorrow Hyponatremia-secondary to above-repeat labs in a.m., Acute elevation in BUN-this is possibly due to dehydration as well as the hyponatremia, repeat lab in kris.m. Right-sided pleural effusion-continue workup as an outpatient Hypercholesterolemia-can hold cholesterol medications while hospitalized COPD-see above NIDDM-insulin sliding scale Hypothyroidism-continue with home medications Hypomagnesemia-continue with home supplementation GERD-continue with home medications Admission findings: Patient with right upper lobe pneumonia after recent diagnosis of COVID-19 not treated with Paxlovid, meets criteria for sepsis, medically necessary treatment will span 2 midnights follow-up, inpatient status
--- NOTE | 2024-04-02 14:52 | CM.NOTE ---
Important Message From Medicare discussed with pt, pt verbalizes understanding and signs paper. Original given to pt and copy placed on pt's chart.
[2024-04-02 17:41] LABS: Glucometer 368 mg/dL (74-106)
[2024-04-02] MEDS: BENZONATATE 100 MG CAPSULE 200 MG PO (17:42)
[2024-04-02] MEDS: INSULIN ASPART 300 UNIT/3 ML PEN SUBQ ×2 (17:42→21:57)
[2024-04-02 20:23] LABS: Glucometer 436 mg/dL (74-106)
[2024-04-02] MEDS: ENSURE HP 237 ML LIQUID PO (21:50)
[2024-04-02] MEDS: TIMOLOL MALEATE 0.5% OP SOL 100 DROPS/5 ML BOTTLE 1 DROP OP (21:50)
[2024-04-02] MEDS: BRIMONIDINE TARTRATE 0.15 % OP SOL 100 DROP/5 ML BOTTLE OP (21:50)
[2024-04-02] MEDS: LATANOPROST 0.005% 2.5 ML BOTTLE 1 DROP OP (21:50)
[2024-04-02] MEDS: BUDESONIDE 0.5 MG/2 ML AMPULE NEB IH (22:48)
[2024-04-03] VITALS (12 sets, daily range): BP systolic 114–155; BP diastolic 70–84; PULSE 52–98; TEMP 36.3–37.7; O2SAT 87–95
[2024-04-03] MEDS: IPRATROPIUM/ALBUTEROL SULFATE 3 ML AMPUL.NEB IH ×4 (04:50→22:54)
[2024-04-03 05:31] LABS: Basophils Percent Auto 0.1 % (0.2-2.0); Hematocrit 36.4 % (42.0-54.0); Hemoglobin 12.6 g/dL (14.0-18.0); Immature Granulocytes Abs Auto 0.26 10^3/uL (0.00-0.03); Immature Granulocytes Pct Auto 1.2 % (0.0-0.5); Lymphocytes Absolute Auto 0.8 10^3/uL (1.2-3.8); Lymphocytes Percent Auto 3.8 % (20.5-60.0); Mean Corpuscular HGB Conc 34.6 g/dL (29.9-35.2); Mean Corpuscular Hemoglobin 32.6 pg (25.9-34.0); Mean Corpuscular Volume 94.1 fL (80.0-94.0); Monocytes Absolute Auto 1.1 10^3/uL (0.3-0.8); Monocytes Percent Auto 4.8 % (1.7-12.0); Neutrophils Absolute Auto 19.7 10^3/uL (1.4-6.5); Neutrophils Percent Auto 90.1 % (43.0-75.0); Platelet Count 180 10^3/uL (150-450); Red Blood Count 3.87 10^6/uL (4.70-6.10); Red Cell Distribution Width 12.7 % (11.0-15.0); White Blood Count 21.9 10^3/uL (4.0-11.0)
[2024-04-03 05:41] LABS: Anion Gap 10.3; BUN Creatinine Ratio 24.7; Calcium 9.2 mg/dL (8.5-10.1); Carbon Dioxide 27.7 mmol/L (21.0-32.0); Chloride 102 mmol/L (98-107); Estimated GFR (African America >60 (>=60 mL/min/1.73m^2); Estimated GFR (Non-African Ame >60 (>=60 mL/min/1.73m^2); Glucose 175 mg/dL (74-106); Sodium 136 mmol/L (136-145)
[2024-04-03] MEDS: LEVOTHYROXINE SODIUM 88 MCG TABLET PO (05:41)
[2024-04-03] MEDS: OMEPRAZOLE 40 MG CAPSULE.DR PO (05:41)
[2024-04-03] MEDS: PIPERACILLIN SODIUM/TAZOBACTAM 3.375 GM in 0.9 % SODIUM CHLORIDE 50 ML IV ×3 (05:41→22:30)
--- NOTE | 2024-04-03 06:27 | P.PN_ITS ---
Progress Note: Subjective Subjective Interval history: Patient still feels significant cough and shortness of breath. Exam Constitutional Vital Signs, click to edit/add: Last Vital Signs Temp 97.6 F 04/03/24 03:00 Pulse 72 04/03/24 04:50 Resp 18 04/03/24 04:50 BP 137/77 04/03/24 03:00 Pulse Ox 95 04/03/24 04:50 O2 Del Method Nasal Cannula 04/03/24 04:50 O2 Flow Rate 2 04/03/24 04:50 Documenting provider has reviewed patient's vital signs: yes Common normals: apparent distress (Cough throughout the evaluation) Chest Common normals: inspection of chest normal Respiratory Common normals: no retractions; abnormal respiratory effort (Cough throughout the evaluation) Auscultation: rhonchi; no wheezes Cardio Common normals: regular rate and regular rhythm GI Common normals: Normal to inspection, nondistended, normoactive bowel sounds present and soft to palpation Extremity Common normals: normal to inspection, full ROM and no clubbing, cyanosis or edema Progress Note: Objective Labs Labs: Short CBC 04/02/24 04/03/24 Range/Units 09:48 05:12 WBC 20.7 H 21.9 H (4.0-11.0) 10^3/uL Hgb 14.4 12.6 L (14.0-18.0) g/dL Hct 41.9 L 36.4 L (42.0-54.0) % Plt Count 188 180 (150-450) 10^3/uL BMP 04/02/24 04/03/24 09:48 05:12 Sodium 135 L 136 Potassium 4.0 4.0 Chloride 99 102 Carbon Dioxide 29.8 27.7 BUN 21.0 H 23.0 H Creatinine 1.14 0.93 Glucose 212 H 175 H Calcium 9.0 9.2 Liver Function 04/02/24 Range/Units 09:48 Total Bilirubin 1.1 H (0.2-1.0) mg/dL AST 14 L (15-37) U/L ALT 26 (16-63) U/L Alkaline Phosphatase 67 (46-116) U/L Albumin 2.5 L (3.4-5.0) g/dL Progress Note: A&P Assessment and Plan (1) Hypoxia: (2) Pneumonia: Plan Admission findings: Sinus tachycardia, respiratory distress, acute hypoxia with O2 sat of 90% on 2 L, patient does not normally use supplemental oxygen, leukocytosis, hyponatremia secondary to right upper lobe pneumonia and right- sided pleural effusion complicated by recent COVID-19 diagnosis Right upper lobe pneumonia with sepsis (sinus tachycardia, respiratory distress, hypoxia, leukocytosis with known infectious source of lungs) with acute exacerbation of COPD-overall seems improved, see progress note from pulmonology appreciate their input, maintain planning Semiacute [id number] still 1 day with inside the quarantine. Likely can come out of quarantine tomorrow Hyponatremia-secondary to above-repeat labs in a.m.,-improved to normal Acute elevation in BUN-this is possibly due to dehydration as well as the hyponatremia, repeat lab in a.m. Right-sided pleural effusion-continue workup as an outpatient Hypercholesterolemia-can hold cholesterol medications while hospitalized COPD-see above NIDDM-insulin sliding scale Hypothyroidism-continue with home medications Hypomagnesemia-continue with home supplementation GERD-continue with home medications Admission findings: Patient with right upper lobe pneumonia after recent diagnosis of COVID-19 not treated with Paxlovid, meets criteria for sepsis, medically necessary treatment will span 2 midnights follow-up, inpatient status ?
[2024-04-03 07:28] LABS: Bilirubin Urine NEGATIVE (NEGATIVE); Blood Urine NEGATIVE (NEGATIVE); Clarity Urine CLEAR (CLEAR); Color Urine YELLOW (YELLOW); Glucose Urine UA 500 mg/dL (NEGATIVE); Ketones Urine NEGATIVE (NEGATIVE); Leukocyte Esterase Urine NEGATIVE (NEGATIVE); Nitrite Urine NEGATIVE (NEGATIVE); Protein Urine 30 mg/dL (NEG/TRACE); Specific Gravity Urine 1.015 (1.005-1.025); Urobilinogen Urine 0.2 EU/dL (0.2-1.0)
[2024-04-03 07:29] LABS: Glucometer 197 mg/dL (74-106)
[2024-04-03 07:32] LABS: Urine Microscopic Indicated YES
[2024-04-03 07:35] LABS: RBC Urine 0-2 #/HPF (0-2); WBC Urine 0-2 #/HPF (NONE SEEN)
[2024-04-03 07:36] LABS: Bacteria Urine TRACE #/HPF (NONE SEEN); Cast Seen? NONE SEEN #/LPF (NONE SEEN); Crystals Seen? None Seen #/HPF (None Seen); Mucus Urine NONE SEEN (NONE SEEN); Squamous Epithelial Cell Urine NONE SEEN #/LPF (NONE/RARE); Urine Culture Indicated NO
[2024-04-03] MEDS: INSULIN ASPART 300 UNIT/3 ML PEN SUBQ ×4 (07:49→21:05)
--- NOTE | 2024-04-03 08:05 | P.PLCN_ITS ---
History of Present Illness History of Present Illness Consult date: 04/03/24 Requesting physician: Kurt Bourne Reason for consult: pneumonia Chief complaint: SOB PNEUMONIA POST- COVID HYPOXIA Narrative: 83yo male, well known to me as I see him outpatient for COPD. He has been having increased symptoms over the past several months. Complained of worsening dyspnea and cough - ordered testing on 03/24/2024 which returned positive for COVID-19; dexamethasone was sent in to his pharmacy. Over the past 2 days, patient felt very weak/exhausted. Breathing was worsening and the called my office on 04/01/2024 after hours. He continued to worsen and she contacted EMS. Chest CT shows a new RUL consolidation along with BLL infiltrates which appear new compared to CXR 03/24/2024. He continues to state he feels weak. Continues to have some dyspnea. No fevers reported. Review of Systems ROS Status of ROS 10 or more systems reviewed and unremark able except as noted in history and below [facility] Medical History (Updated 04/03/24 @ 08:43 by Michael Whitfield DO) Diabetes 1.5, 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 Known occupational exposures/hazards: No Highest level of school completed/degree received: high school graduate Are you now , , , , never or living with a partner: In a typical week, how many times do you talk on the telephone with family, friends, or neighbors: 3 or more times per week How often do you get together with friends or relatives: 3 or more times per week How often do you attend protestant or amish services: 4 or more times per year Do you belong to any clubs or organizations such as protestant groups unions, fraternal or athletic groups, or school groups: no Total score: 3 Score interpretation: A score of greater than or equal to 2 indicates the lowest level of social isolation. Little interest or pleasure in doing things: not at all Feeling down, depressed, or hopeless: not at all Feel stressed/tense/nervous/anxious/difficulty sleeping: not at all Due to disability, difficulty making decisions: No Do you think of yourself as: straight/heterosexual Gender Identity: male Meds Home Medications and Allergies Home Medications ?Medication ?Instructions ?Recorded ?Confirmed ?Type albuterol sulfate 2.5 mg/3 mL 2.5 mg inhalation Q8H PRN 04/02/24 04/02/24 History (0.083 %) solution for nebulization shortness of breath or wheezing albuterol sulfate 90 mcg/actuation 2 puff inhalation Q4H PRN 04/02/24 04/02/24 History aerosol inhaler shortness of breath or wheezing allopurinol 100 mg tablet 100 mg PO DAILY 04/02/24 04/02/24 History atorvastatin 20 mg tablet 20 mg PO QPM 04/02/24 04/02/24 History bioflavonoid products tablet tab PO 04/02/24 History brimonidine 0.2 % eye drops 1 drp ophthalmic (eye) BID 04/02/24 04/02/24 History budesonide 160 mcg-glycopyr 9 2 inh inhalation BID 04/02/24 04/02/24 History mcg-formot 4.8 mcg/actuation HFA inhaler (Breztri Aerosphere) insulin aspart 1 sliding scale dose subcut BID 04/02/24 04/02/24 History (niacinamide)(U-100) 100 unit/mL(3 mL) subcutaneous pen (Fiasp FlexTouch U-100 Insulin) latanoprost 0.005 % eye drops 1 drp ophthalmic (eye) BEDTIME 04/02/24 04/02/24 History levothyroxine 88 mcg tablet 88 mcg PO .ACB 04/02/24 04/02/24 History losartan 50 mg tablet 50 mg PO DAILY 04/02/24 04/02/24 History magnesium oxide 400 mg (241.3 mg 400 mg PO DAILY 04/02/24 04/02/24 History magnesium) tablet metformin 750 mg tablet,extended 750 mg PO DAILY@1700 04/02/24 04/02/24 History release 24 hr omeprazole 40 mg capsule,delayed 40 mg PO .ACB 04/02/24 04/02/24 History release timolol maleate 0.5 % eye drops 1 drp ophthalmic (eye) BID 04/02/24 04/02/24 History Allergies Allergy/AdvReac Type Severity Reaction Status Date / Time erythromycin base Allergy Severe Rash Verified 04/02/24 10:40 levofloxacin Allergy Severe Rash Verified 04/02/24 11:54 Sulfa (Sulfonamide Allergy Severe Rash Verified 04/02/24 11:54 Antibiotics) metformin AdvReac Intermediate Diarrhea Verified 04/02/24 11:54 Exam Constitutional Vital Signs, click to edit/add: Last Vital Signs Temp 97.4 F L 04/03/24 07:46 Pulse 79 04/03/24 07:46 Resp 18 04/03/24 07:46 BP 143/77 H 04/03/24 07:46 Pulse Ox 90 L 04/03/24 07:46 O2 Del Method Nasal Cannula 04/03/24 07:46 O2 Flow Rate 2 04/03/24 07:46 Other: Appears weak, slow when moving HENMT Other: Moderately severe oral candidiasis with white plaques and ulcerations on buccal and palatine mucosa. Wearing nasal cannula. Respiratory Other: Diminished breath sounds. Bilateral crackles, more in the right upper lung field posteriorly. A few scattered wheezes. Cardio Common normals: regular rate and regular rhythm GI Inspection: normal to inspection Extremity Common normals: no clubbing, cyanosis or edema Neuro Motor exam: no tremor noted and no fasciculations Psych Attitude: calm Activity/motor behavior: appropriate eye contact Speech: normal speech Results Laboratory Findings ABG, PT/INR, D-dimer: PT/INR, D-dimer PT 11.4 sec (9.0-11.6) 04/02/24 09:48 INR 1.08 04/02/24 09:48 Abnormal lab findings: Abnormal Labs 04/02/24 04/02/24 04/02/24 09:48 17:30 20:21 WBC 20.7 H RBC 4.42 L Hgb Hct 41.9 L MCV 94.8 H Neut % (Auto) 87.9 H Lymph % (Auto) 5.4 L Eos % (Auto) 0.3 L Baso % (Auto) 0.1 L Neut # (Auto) 18.2 H Lymph # (Auto) 1.1 L Villalba # (Auto) 1.0 H Abs Immat Gran (auto) 0.30 H Imm/Tot Granulo (auto) 1.5 H Sodium 135 L BUN 21.0 H Glucose 212 H Total Bilirubin 1.1 H AST 14 L Albumin 2.5 L Urine Protein Urine Glucose (UA) Urine WBC Urine Bacteria POC Glucose 368 H 436 H 04/03/24 04/03/24 04/03/24 05:12 06:55 07:27 WBC 21.9 H RBC 3.87 L Hgb 12.6 L Hct 36.4 L MCV 94.1 H Neut % (Auto) 90.1 H Lymph % (Auto) 3.8 L Eos % (Auto) 0.0 L Baso % (Auto) 0.1 L Neut # (Auto) 19.7 H Lymph # (Auto) 0.8 L Villalba # (Auto) 1.1 H Abs Immat Gran (auto) 0.26 H Imm/Tot Granulo (auto) 1.2 H Sodium BUN 23.0 H Glucose 175 H Total Bilirubin AST Albumin Urine Protein 30 A Urine Glucose (UA) 500 A Urine WBC 0-2 A Urine Bacteria Trace A POC Glucose [address] scan - chest: report reviewed and image reviewed Assessment and Plan Assessment and Plan (1) Pneumonia: Assessment and Plan: 1. RUL pneumonia. No identified agent. New compared to CXR 03/24/2024. This would be most consistent with post-COVID secondary bacterial pneumonia. Continue with antibiotics. Aggressive pulmonary toilet - continue with PEP; sodium chloride 0.9% nebs are a home med - continue with that. 2. AECOPD. Secondary to above. This is his 3rd-4th exacerbation since 09/2023, though several were provoked by infection. Has underlying centrilobular emphysema. Last PFT 07/03/2022: FEV1 57%. Breztri is maintenance inhaler. Continue with bronchodilator, steroids. 3. Acute hypoxic respiratory failure. According to ER. At home, he was on O2 only @ HS, but he did not require supplemental O2 with CPAP. 4. FANNIE. Patient was to get the CPAP. 5. History of COVID. Most recently 03/24/2024. Previously 03/2022 and 09/2019. 6. History of tobacco abuse. 70 pack-years, quit 1994. Qualifiers: Pneumonia type: due to unspecified organism Laterality: right Lung location: upper lobe of lung Qualified Code(s): J18.9 - Pneumonia, unspecified organism Plan Over the past 6-12 months, there seems to be a slow decline in the patient's function and breathing which is concerning.
[2024-04-03 08:10] LABS: A. calcoaceticus-baumannii Cpx NOT DETECTED (NOT DETECTE); Bacteroides fragilis NOT DETECTED (NOT DETECTE); Candida albicans NOT DETECTED (NOT DETECTE); Candida auris NOT DETECTED (NOT DETECTE); Candida glabrata NOT DETECTED (NOT DETECTE); Candida krusei NOT DETECTED (NOT DETECTE); Candida parapsilosis NOT DETECTED (NOT DETECTE); Candida tropicalis NOT DETECTED (NOT DETECTE); Cryptococcus neoformans/gattii NOT DETECTED (NOT DETECTE); Enterobacter cloacae complex NOT DETECTED (NOT DETECTE); Enterobacterales NOT DETECTED (NOT DETECTE); Enterococcus faecalis NOT DETECTED (NOT DETECTE); Enterococcus faecium NOT DETECTED (NOT DETECTE); Haemophilus influenzae NOT DETECTED (NOT DETECTE); Klebsiella aerogenes NOT DETECTED (NOT DETECTE); Klebsiella pneumoniae group NOT DETECTED (NOT DETECTE); Listeria monocytogenes NOT DETECTED (NOT DETECTE); Neisseria meningitidis NOT DETECTED (NOT DETECTE); Proteus spp. NOT DETECTED (NOT DETECTE); Pseudomonas aeruginosa NOT DETECTED (NOT DETECTE); Salmonella spp. NOT DETECTED (NOT DETECTE); Serratia marcescens NOT DETECTED (NOT DETECTE); Staphylococcus lugdunensis NOT DETECTED (NOT DETECTE); Stenotrophomonas maltophilia NOT DETECTED (NOT DETECTE); Streptococcus agalactiae NOT DETECTED (NOT DETECTE); Streptococcus pneumoniae NOT DETECTED (NOT DETECTE); Streptococcus pyogenes NOT DETECTED (NOT DETECTE); Streptococcus spp. NOT DETECTED (NOT DETECTE)
[2024-04-03] MEDS: ALLOPURINOL 100 MG TABLET PO (08:49)
[2024-04-03] MEDS: MAGNESIUM OXIDE 400 MG TABLET PO (08:49)
[2024-04-03] MEDS: LOSARTAN POTASSIUM 50 MG TABLET PO (08:49)
[2024-04-03] MEDS: BRIMONIDINE TARTRATE 0.15 % OP SOL 100 DROP/5 ML BOTTLE OP ×2 (08:50→21:04)
[2024-04-03] MEDS: TIMOLOL MALEATE 0.5% OP SOL 100 DROPS/5 ML BOTTLE 1 DROP OP ×2 (08:51→21:04)
[2024-04-03] MEDS: ENSURE HP 237 ML LIQUID PO ×2 (08:52→21:04)
[2024-04-03 09:27] LABS: Source Blood; mecA/C NOT DETECTED (NOT DETECTE)
[2024-04-03 09:29] LABS: Staphylococcus epidermidis DETECTED (NOT DETECTE); Staphylococcus spp. DETECTED (NOT DETECTE)
--- NOTE | 2024-04-03 09:40 | CM.NOTE ---
Rounds made with Dr. Bourne, pt continues to require oxygen during the day. No discharge today.
[2024-04-03] MEDS: NYSTATIN 500,000 UNIT/5 ML ORAL.SUSP 500000 UNIT PO ×4 (09:53→21:04)
[2024-04-03] MEDS: BUDESONIDE 0.5 MG/2 ML AMPULE NEB IH ×2 (10:10→22:54)
--- NOTE | 2024-04-03 11:31 | SWNOTE1 ---
SW reviewed OT note and no needs for OT at home. Physical therapy did recommend at least alf from HH services at this time. Pt refused any HH services. SW to check back with pt.
[2024-04-03 11:45] LABS: Glucometer 277 mg/dL (74-106)
--- NOTE | 2024-04-03 14:16 | SWNOTE1 ---
SW stopped in to speak with pt in regards to HH nurse coming in to see him. Pt voiced he does not feel he needs this. SW did advise it would only be a few visits and it would help with transition to home. Pt voiced his is at home with him and he does not feel he needs it. SW did let pt know that if he gets home and does feel he would benefit from HH services, he can reach out to his PCP. Pt voiced he will do that if he needs to. SW also let him know that SW did call [facility] [place] and his home oxygen order is for 2 liters oxygen continuous. He voiced understanding.
[2024-04-03 16:02] LABS: Glucometer 174 mg/dL (74-106)
[2024-04-03 19:55] LABS: Glucometer 259 mg/dL (74-106)
[2024-04-03] MEDS: LATANOPROST 0.005% 2.5 ML BOTTLE 1 DROP OP (21:04)
[2024-04-04] VITALS (9 sets, daily range): BP systolic 107–160; BP diastolic 54–86; PULSE 75–96; TEMP 36.6–37.2; O2SAT 87–93
[2024-04-04] MEDS: IPRATROPIUM/ALBUTEROL SULFATE 3 ML AMPUL.NEB IH ×4 (04:30→22:25)
[2024-04-04] MEDS: NYSTATIN 500,000 UNIT/5 ML ORAL.SUSP 500000 UNIT PO ×4 (05:36→21:28)
[2024-04-04] MEDS: LEVOTHYROXINE SODIUM 88 MCG TABLET PO (05:36)
[2024-04-04] MEDS: PIPERACILLIN SODIUM/TAZOBACTAM 3.375 GM in 0.9 % SODIUM CHLORIDE 50 ML IV ×3 (05:36→21:28)
[2024-04-04] MEDS: 0.9 % SODIUM CHLORIDE 250 ML 10 ML IV (05:38)
[2024-04-04 05:51] LABS: Basophils Percent Auto 0.1 % (0.2-2.0); Eosinophils Absolute Auto 0.1 10^3/uL (0.0-0.7); Eosinophils Percent Auto 0.5 % (0.9-7.0); Hematocrit 38.2 % (42.0-54.0); Immature Granulocytes Abs Auto 0.28 10^3/uL (0.00-0.03); Immature Granulocytes Pct Auto 1.2 % (0.0-0.5); Lymphocytes Absolute Auto 0.9 10^3/uL (1.2-3.8); Lymphocytes Percent Auto 3.7 % (20.5-60.0); Mean Corpuscular Hemoglobin 32.3 pg (25.9-34.0); Mean Corpuscular Volume 94.8 fL (80.0-94.0); Mean Platelet Volume 10.3 fL (9.5-13.5); Monocytes Absolute Auto 1.3 10^3/uL (0.3-0.8); Monocytes Percent Auto 5.6 % (1.7-12.0); Neutrophils Absolute Auto 20.8 10^3/uL (1.4-6.5); Neutrophils Percent Auto 88.9 % (43.0-75.0); Platelet Count 189 10^3/uL (150-450); Red Blood Count 4.03 10^6/uL (4.70-6.10); Red Cell Distribution Width 12.7 % (11.0-15.0); White Blood Count 23.4 10^3/uL (4.0-11.0)
[2024-04-04 06:03] LABS: Anion Gap 12.5; BUN Creatinine Ratio 17.9; Carbon Dioxide 27.2 mmol/L (21.0-32.0); Chloride 100 mmol/L (98-107); Estimated GFR (African America >60 (>=60 mL/min/1.73m^2); Estimated GFR (Non-African Ame >60 (>=60 mL/min/1.73m^2); Glucose 187 mg/dL (74-106); Potassium 3.7 mmol/L (3.5-5.1); Sodium 136 mmol/L (136-145)
--- NOTE | 2024-04-04 06:06 | P.PN_ITS ---
Progress Note: Subjective Subjective Interval history: Patient is with persistent cough and shortness of breath with ambulation Exam Constitutional Vital Signs, click to edit/add: Last Vital Signs Temp 98.8 F 04/04/24 04:55 Pulse 96 H 04/04/24 04:55 Resp 21 H 04/04/24 04:55 BP 160/83 H 04/04/24 04:55 Pulse Ox 90 L 04/04/24 04:55 O2 Del Method Nasal Cannula 04/04/24 04:55 O2 Flow Rate 2 04/04/24 04:55 Documenting provider has reviewed patient's vital signs: yes Common normals: apparent distress (Cough throughout the evaluation) Chest Common normals: inspection of chest normal Respiratory Common normals: no retractions; abnormal respiratory effort (Cough throughout the evaluation) Auscultation: rhonchi (Somewhat better air exchange but persisting); no wheezes Cardio Common normals: regular rate and regular rhythm GI Common normals: Normal to inspection, nondistended, normoactive bowel sounds present and soft to palpation Extremity Common normals: normal to inspection, full ROM and no clubbing, cyanosis or edema Progress Note: Objective Labs Labs: Short CBC 04/04/24 Range/Units 05:07 WBC 23.4 H (4.0-11.0) 10^3/uL Hgb 13.0 L (14.0-18.0) g/dL Hct 38.2 L (42.0-54.0) % Plt Count 189 (150-450) 10^3/uL Urine 04/03/24 Range/Units 06:55 Urine Color Yellow (YELLOW) Urine Clarity Clear (CLEAR) Urine pH 6.0 (5.0-9.0) Ur Specific Blair 1.015 (1.005-1.025) Urine Protein 30 A (NEG/TRACE) mg/dL Urine Glucose (UA) 500 A (NEGATIVE) mg/dL Progress Note: A&P Assessment and Plan (1) Hypoxia: (2) Pneumonia: Qualifiers: Laterality: right Lung location: upper lobe of lung Pneumonia type: due to unspecified organism Qualified Code(s): J18.9 - Pneumonia, unspecified organism Plan Admission findings: Sinus tachycardia, respiratory distress, acute hypoxia with O2 sat of 90% on 2 L, patient does not normally use supplemental oxygen, leukocytosis, hyponatremia secondary to right upper lobe pneumonia and right- sided pleural effusion complicated by recent COVID-19 diagnosis Right upper lobe pneumonia with sepsis (sinus tachycardia, respiratory distress, hypoxia, leukocytosis with known infectious source of lungs) with acute exacerbation of COPD-does seem to be somewhat better today but white blood cell count is higher today, will review antibiotics, add Mucinex, try to loosen cough, repeat chest x-ray, consider IPV Semiacute [id number] still 1 day with inside the quarantine. Can be out of quarantine at this time Hyponatremia-secondary to above-repeat labs in a.m., normal Acute elevation in BUN-this is possibly due to dehydration as well as the hyponatremia,-improved Right-sided pleural effusion-continue workup as an outpatient Hypercholesterolemia-can hold cholesterol medications while hospitalized COPD-see above NIDDM-insulin sliding scale Hypothyroidism-continue with home medications Hypomagnesemia-continue with home supplementation GERD-continue with home medications Admission findings: Patient with right upper lobe pneumonia after recent diagnosis of COVID-19 not treated with Paxlovid, meets criteria for sepsis, medically necessary treatment will span 2 midnights follow-up, inpatient status ?
[2024-04-04 07:49] LABS: Glucometer 189 mg/dL (74-106)
[2024-04-04] MEDS: OMEPRAZOLE 40 MG CAPSULE.DR PO (08:18)
[2024-04-04] MEDS: MAGNESIUM OXIDE 400 MG TABLET PO (08:18)
[2024-04-04] MEDS: ALLOPURINOL 100 MG TABLET PO (08:18)
[2024-04-04] MEDS: LOSARTAN POTASSIUM 50 MG TABLET PO (08:18)
[2024-04-04] MEDS: BRIMONIDINE TARTRATE 0.15 % OP SOL 100 DROP/5 ML BOTTLE OP ×2 (08:20→20:32)
[2024-04-04] MEDS: INSULIN ASPART 300 UNIT/3 ML PEN SUBQ ×4 (08:21→21:27)
[2024-04-04] MEDS: TIMOLOL MALEATE 0.5% OP SOL 100 DROPS/5 ML BOTTLE 1 DROP OP ×2 (08:21→20:33)
--- NOTE | 2024-04-04 08:23 | XR_ITS ---
[facility] [id number] Patient Name: CHEMA ALTMAN MRN: [id number] date: 1940 Sex: M Assigned Patient Location: [place] Current Patient Location: [place] Accession/Order Number: [id number] Exam Date: 04/04/2024 09:05 Report Date: 04/04/2024 09:39 At the request of: REEMA WAITE Procedure: XR chest 2V EXAMINATION: XR chest 2V HISTORY: follow up pna COMPARISON: CTA chest 04/02/2024, XR chest 03/24/2024 FINDINGS: LUNGS: Moderate to large area of dense infiltrates within medial right upper lobe. Left lung is clear. VASCULATURE: No increased pulmonary vasculature. PLEURA: No pneumothorax, effusion, or pleural thickening. CARDIAC: No cardiomegaly or cardiac silhouette abnormality. MEDIASTINUM: No visible mass or adenopathy. BONES: No fracture or visible bone lesion. OTHER: Negative. XR/XR chest 2V IMPRESSION: 1. Moderate-marked right upper lobe infiltrates stable to slightly improved when compared to patient's recent CT study, favoring pneumonia. Electronically authenticated by: PAULINA BOWLES Date: 04/04/2024 09:39
--- NOTE | 2024-04-04 09:01 | CM.NOTE ---
Rounds made with Dr. Bourne. Dr. Bourne reviews plan of care. No discharge today.
[2024-04-04] MEDS: CLINDAMYCIN PHOSPHATE/D5W 600 MG/50 ML PREMIX 100 MG IV ×3 (09:12→20:32)
[2024-04-04] MEDS: GUAIFENESIN 600 MG TAB.ER.12H PO ×2 (09:12→20:33)
--- NOTE | 2024-04-04 09:59 | SWNOTE1 ---
2nd notice of Important Message from Medicare reviewed with pt, no questions at this time.
--- NOTE | 2024-04-04 10:30 | PT.DAILY ---
Physical Therapy Daily Note PT Daily Note/Assess Start: 04/04/24 10:24 Freq: Status: Active Protocol: Document 04/04/24 10:24 ARSH (Rec: 04/04/24 10:30 ARSH [id number]) Physical Therapy Daily Note/Assessment Time In/Time Out Time In 09:08 Time Out 09:20 Pain In Pain N/A Pain Out Pain N/A Subjective Subjective Pt supine upon arrival. Initially refusing treatment saying he has no energy but with motivation pt becomes agreeable. Pt agreeable to sit in chair after being educated on utilizing gravity to drain mucus from the airways to help clear his lungs. Therapeutic Exercise Time Therapeutic Exercise 5 Minutes (minutes) Therapeutic Exercise 1 Units Therapeutic Exercise Treatment Therapeutic Exercise Bilat LE strengthening ex complete while sitting in BS Treatment chair 15x ea. Therapeutic Activity Time Therapeutic Activity 4 Minutes (minutes) Therapeutic Activity 0 Units Therapeutic Activity Treatment Bed Mobility Ability Minimum Assist Chair Transfer Contact Guard Assist Ability Therapeutic Activity Pt required education on benefits of activity and Comments eating well balanced meal to assist in energy levels. Pt also educated on benefits of sitting up when having difficulty clearing lungs. Supine>sit Lisa to advance upper body to sit at EOB. Pt sits EOB unsupported without LOB. Sit>stand CGA. 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 Pt remains in BS chair for seated ex . Total Physical Therapy Time Total Therapy 9 Minutes Total Physical 1 Therapy Units Summary Daily Note Summary Limited session due to pt's cooperation level. Does agree to get into chair and perform LE strengthening ex . Reports being to tired to walk today. Pt does verbalize understanding of importance of activity to assist with his recovery. Denies pain upon completion. More assistance needed with bed mobility today.
[2024-04-04] MEDS: BUDESONIDE 0.5 MG/2 ML AMPULE NEB IH ×2 (10:35→22:25)
[2024-04-04 11:18] LABS: Glucometer 203 mg/dL (74-106)
[2024-04-04] MEDS: ACETAMINOPHEN 500 MG TABLET 1000 MG PO ×2 (11:48→21:26)
[2024-04-04 16:49] LABS: Glucometer 213 mg/dL (74-106)
[2024-04-04] MEDS: METFORMIN HCL 850 MG TABLET PO (17:19)
[2024-04-04 19:37] LABS: Glucometer 236 mg/dL (74-106)
[2024-04-04] MEDS: ENSURE HP 237 ML LIQUID PO (20:33)
[2024-04-04] MEDS: LATANOPROST 0.005% 2.5 ML BOTTLE 1 DROP OP (21:28)
[2024-04-05] VITALS (11 sets, daily range): BP systolic 101–145; BP diastolic 65–88; PULSE 42–95; TEMP 36.3–36.7; O2SAT 88–98
[2024-04-05] MEDS: CLINDAMYCIN PHOSPHATE/D5W 600 MG/50 ML PREMIX 100 MG IV ×4 (03:00→22:16)
[2024-04-05] MEDS: IPRATROPIUM/ALBUTEROL SULFATE 3 ML AMPUL.NEB IH ×4 (04:51→22:06)
[2024-04-05] MEDS: NYSTATIN 500,000 UNIT/5 ML ORAL.SUSP 500000 UNIT PO ×4 (05:11→22:18)
[2024-04-05] MEDS: PIPERACILLIN SODIUM/TAZOBACTAM 3.375 GM in 0.9 % SODIUM CHLORIDE 50 ML IV ×3 (05:11→22:32)
[2024-04-05] MEDS: ACETAMINOPHEN 500 MG TABLET 1000 MG PO ×2 (05:23→17:09)
[2024-04-05] MEDS: OMEPRAZOLE 40 MG CAPSULE.DR PO (05:30)
[2024-04-05] MEDS: LEVOTHYROXINE SODIUM 88 MCG TABLET PO (05:30)
[2024-04-05 06:03] LABS: Basophils Absolute Auto 0.1 10^3/uL (0.0-0.1); Basophils Percent Auto 0.2 % (0.2-2.0); Eosinophils Absolute Auto 0.2 10^3/uL (0.0-0.7); Hematocrit 39.7 % (42.0-54.0); Hemoglobin 13.3 g/dL (14.0-18.0); Immature Granulocytes Abs Auto 0.17 10^3/uL (0.00-0.03); Immature Granulocytes Pct Auto 0.8 % (0.0-0.5); Lymphocytes Absolute Auto 1.1 10^3/uL (1.2-3.8); Lymphocytes Percent Auto 5.2 % (20.5-60.0); Mean Corpuscular HGB Conc 33.5 g/dL (29.9-35.2); Mean Corpuscular Hemoglobin 32.2 pg (25.9-34.0); Mean Corpuscular Volume 96.1 fL (80.0-94.0); Mean Platelet Volume 10.2 fL (9.5-13.5); Monocytes Percent Auto 4.8 % (1.7-12.0); Neutrophils Absolute Auto 18.9 10^3/uL (1.4-6.5); Platelet Count 176 10^3/uL (150-450); Red Blood Count 4.13 10^6/uL (4.70-6.10); Red Cell Distribution Width 13.1 % (11.0-15.0); White Blood Count 21.5 10^3/uL (4.0-11.0)
[2024-04-05 06:15] LABS: Anion Gap 15.9; BUN Creatinine Ratio 20.9; Calcium 9.2 mg/dL (8.5-10.1); Carbon Dioxide 24.7 mmol/L (21.0-32.0); Chloride 101 mmol/L (98-107); Estimated GFR (African America >60 (>=60 mL/min/1.73m^2); Estimated GFR (Non-African Ame 51 (>=60 mL/min/1.73m^2); Glucose 190 mg/dL (74-106); Potassium 3.6 mmol/L (3.5-5.1); Sodium 138 mmol/L (136-145)
[2024-04-05] MEDS: GUAIFENESIN 600 MG TAB.ER.12H PO ×2 (09:03→22:18)
[2024-04-05] MEDS: MAGNESIUM OXIDE 400 MG TABLET PO (09:03)
[2024-04-05] MEDS: ALLOPURINOL 100 MG TABLET PO (09:04)
[2024-04-05] MEDS: TIMOLOL MALEATE 0.5% OP SOL 100 DROPS/5 ML BOTTLE 1 DROP OP ×2 (09:04→22:17)
[2024-04-05] MEDS: LOSARTAN POTASSIUM 50 MG TABLET PO (09:04)
[2024-04-05] MEDS: BRIMONIDINE TARTRATE 0.15 % OP SOL 100 DROP/5 ML BOTTLE OP ×2 (09:05→22:17)
--- NOTE | 2024-04-05 10:17 | PT.DAILY ---
Physical Therapy Daily Note PT Daily Note/Assess Start: 04/04/24 10:24 Freq: Status: Active Protocol: Document 04/05/24 09:30 BRANNON (Rec: 04/05/24 10:17 BRANNON [id number]) Physical Therapy Daily Note/Assessment Time In/Time Out Time In 09:30 Time Out 09:45 Subjective Subjective Patient is agreeable to therapy. Reports feels better today. Therapeutic Exercise Time Therapeutic Exercise 5 Minutes (minutes) Therapeutic Exercise 1 Units Therapeutic Exercise Treatment Therapeutic Exercise Seated exercises B LE in all planes 10 reps each to Treatment promote improved LE strength. Therapeutic Activity Time Therapeutic Activity 10 Minutes (minutes) Therapeutic Activity 1 Units Therapeutic Activity Treatment Bed Mobility Ability Contact Guard Assist Chair Transfer Standby Assistance Ability Therapeutic Activity Supine to sit CGA, patient initially wanted therapist Comments to assist but with verbal encouragement was able to do on own. Sit to stand from low EOB 2x with SBA. Static standing x 3 min without UE support CGA with no LOB. Gait 30' with CHROMOSOMAL DISORDERS COUNSELOR/min assist. Patient will benefit from use of RW but declined to use on this AM. Reports does have both a RW and cane at home if needed. Total Physical Therapy Time Total Therapy 15 Minutes Total Physical 2 Therapy Units Summary Daily Note Summary Improved participation level, and distance with ambulation today. Encouraged patient to use AD vs CHROMOSOMAL DISORDERS COUNSELOR but patient declines this AM. Overall shows improved strength and balance from previous treatments as well. Patient would benefit from HH PT services at [facility] to improve strength and functional mobility, also would strongly encourage patient to use AD at home.
[2024-04-05] MEDS: BUDESONIDE 0.5 MG/2 ML AMPULE NEB IH ×2 (11:21→22:06)
[2024-04-05 11:41] LABS: Glucometer 195 mg/dL (74-106)
--- NOTE | 2024-04-05 11:41 | P.PN_ITS ---
Progress Note: Subjective Subjective Interval history: Patient feels worse this am. Increased SOB and chest tight. Mild dry cough. Afebrile. WBC slightly improved. Severe weakness and needs assistance with standing and transfers. Remains on 3 LPM. Decreased appetite but no emesis or diarrhea. No chest pain or palpitations. states she isn't able to care for patient at home and now patient willing to consider SNF. Exam Constitutional Vital Signs, click to edit/add: Last Vital Signs Temp 97.7 F 04/05/24 07:24 Pulse 61 04/05/24 11:21 Resp 18 04/05/24 07:28 BP 101/65 04/05/24 07:24 Pulse Ox 92 L 04/05/24 11:21 O2 Del Method Nasal Cannula 04/05/24 11:21 O2 Flow Rate 3 04/05/24 11:21 Documenting provider has reviewed patient's vital signs: yes Common normals: no apparent distress, oriented x3 and alert HENMT Common normals: normocephalic Eye Common normals: PERRL and EOMs intact bilaterally Respiratory Common normals: normal respiratory effort Auscultation: rhonchi, wheezes and diminished lung sounds Cardio Common normals: regular rate, regular rhythm, no gallops, no murmurs and no rub GI Common normals: Normal to inspection, nondistended, normoactive bowel sounds present and non-tender Extremity Common normals: no pedal edema Progress Note: Objective Labs Labs: Short CBC 04/05/24 Range/Units 05:43 WBC 21.5 H (4.0-11.0) 10^3/uL Hgb 13.3 L (14.0-18.0) g/dL Hct 39.7 L (42.0-54.0) % Plt Count 176 (150-450) 10^3/uL BMP 04/05/24 05:43 Sodium 138 Potassium 3.6 Chloride 101 Carbon Dioxide 24.7 BUN 28.0 H Creatinine 1.34 H Glucose 190 H Calcium 9.2 Progress Note: A&P Assessment and Plan (1) Pneumonia: Qualifiers: Laterality: right Lung location: upper lobe of lung Pneumonia type: due to unspecified organism Qualified Code(s): J18.9 - Pneumonia, unspecified organism (2) Acute hypoxic respiratory failure: (3) Acute exacerbation of chronic obstructive airways disease: (4) Type 2 diabetes mellitus with hyperglycemia: Qualifiers: Diabetes mellitus 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 Add solu-medrol. Continue antibiotics and breathing treatments. Wean O2 as tolerated. Worsening weakness and continue PT. Interested in SNF and will need to send information.
[2024-04-05] MEDS: INSULIN ASPART 300 UNIT/3 ML PEN SUBQ ×3 (11:48→22:19)
[2024-04-05] MEDS: METHYLPREDNISOLONE SOD SUCC PF 125 MG/2 ML VIAL 60 MG IVP ×2 (11:48→17:06)
[2024-04-05] MEDS: 0.9 % SODIUM CHLORIDE 250 ML 10 ML IV (13:41)
[2024-04-05 15:54] LABS: Glucometer 249 mg/dL (74-106)
[2024-04-05] MEDS: METFORMIN HCL 850 MG TABLET PO (16:08)
[2024-04-05] MEDS: LATANOPROST 0.005% 2.5 ML BOTTLE 1 DROP OP (22:17)
[2024-04-05] MEDS: ENSURE HP 237 ML LIQUID PO (22:18)
[2024-04-05 22:26] LABS: Glucometer 312 mg/dL (74-106)
[2024-04-06] MEDS: METHYLPREDNISOLONE SOD SUCC PF 125 MG/2 ML VIAL 60 MG IVP ×3 (01:04→11:44)
[2024-04-06] MEDS: CLINDAMYCIN PHOSPHATE/D5W 600 MG/50 ML PREMIX 100 MG IV ×2 (01:05→07:49)
[2024-04-06] MEDS: IPRATROPIUM/ALBUTEROL SULFATE 3 ML AMPUL.NEB IH ×2 (04:33→10:43)
[2024-04-06 04:36] VITALS: PULSE 80; O2SAT 92
[2024-04-06] MEDS: NYSTATIN 500,000 UNIT/5 ML ORAL.SUSP 500000 UNIT PO ×2 (05:57→11:44)
[2024-04-06] MEDS: LEVOTHYROXINE SODIUM 88 MCG TABLET PO (05:57)
[2024-04-06] MEDS: OMEPRAZOLE 40 MG CAPSULE.DR PO (05:57)
[2024-04-06 06:00] VITALS: BP 134/75; PULSE 82; TEMP 36.6; O2SAT 88
[2024-04-06 06:43] LABS: Basophils Percent Auto 0.1 % (0.2-2.0); Hematocrit 35.4 % (42.0-54.0); Hemoglobin 11.8 g/dL (14.0-18.0); Immature Granulocytes Abs Auto 0.15 10^3/uL (0.00-0.03); Immature Granulocytes Pct Auto 0.9 % (0.0-0.5); Lymphocytes Absolute Auto 0.5 10^3/uL (1.2-3.8); Mean Corpuscular HGB Conc 33.3 g/dL (29.9-35.2); Mean Corpuscular Hemoglobin 32.1 pg (25.9-34.0); Mean Corpuscular Volume 96.2 fL (80.0-94.0); Mean Platelet Volume 10.4 fL (9.5-13.5); Monocytes Absolute Auto 0.4 10^3/uL (0.3-0.8); Monocytes Percent Auto 2.3 % (1.7-12.0); Neutrophils Absolute Auto 15.8 10^3/uL (1.4-6.5); Neutrophils Percent Auto 93.7 % (43.0-75.0); Platelet Count 207 10^3/uL (150-450); Red Blood Count 3.68 10^6/uL (4.70-6.10); Red Cell Distribution Width 12.9 % (11.0-15.0); White Blood Count 16.8 10^3/uL (4.0-11.0)
[2024-04-06 07:13] LABS: BUN Creatinine Ratio 21.9; Carbon Dioxide 26.8 mmol/L (21.0-32.0); Chloride 101 mmol/L (98-107); Estimated GFR (African America 56 (>=60 mL/min/1.73m^2); Estimated GFR (Non-African Ame 46 (>=60 mL/min/1.73m^2); Glucose 337 mg/dL (74-106); Potassium 3.8 mmol/L (3.5-5.1); Sodium 137 mmol/L (136-145)
[2024-04-06 07:23] VITALS: BP 145/80; PULSE 86; TEMP 36.4; O2SAT 92
[2024-04-06] MEDS: INSULIN ASPART 300 UNIT/3 ML PEN SUBQ ×2 (07:48→11:49)
[2024-04-06] MEDS: PIPERACILLIN SODIUM/TAZOBACTAM 3.375 GM in 0.9 % SODIUM CHLORIDE 50 ML IV (08:24)
[2024-04-06] MEDS: BRIMONIDINE TARTRATE 0.15 % OP SOL 100 DROP/5 ML BOTTLE OP (09:15)
[2024-04-06] MEDS: TIMOLOL MALEATE 0.5% OP SOL 100 DROPS/5 ML BOTTLE 1 DROP OP (09:15)
[2024-04-06] MEDS: LOSARTAN POTASSIUM 50 MG TABLET PO (09:16)
[2024-04-06] MEDS: GUAIFENESIN 600 MG TAB.ER.12H PO (09:16)
[2024-04-06] MEDS: MAGNESIUM OXIDE 400 MG TABLET PO (09:16)
[2024-04-06] MEDS: ALLOPURINOL 100 MG TABLET PO (09:16)
--- NOTE | 2024-04-06 10:35 | XR_ITS ---
[facility] [id number] Patient Name: CHEMA ALTMAN MRN: [id number] date: 1940 Sex: M Assigned Patient Location: [place] Current Patient Location: Accession/Order Number: [id number] Exam Date: 04/06/2024 11:00 Report Date: 04/06/2024 23:33 At the request of: ELADIO WALKER Procedure: XR chest 1V EXAM: XR chest 1V HISTORY: Pneumonia COMPARISON: 04/04/2024 TECHNIQUE: Chest X-ray AP, 1 view FINDINGS: Support devices: None. Lungs/pleura: Interval increase in right upper lobe airspace opacity, representing lobar pneumonia. No effusion, or pneumothorax. Heart and mediastinum: Normal contours. Bones: No acute abnormality identified. XR/XR chest 1V Impression: Interval increase in right upper lobe airspace opacity, representing lobar pneumonia. Electronically authenticated by: KENDRA MARSHALL Date: 04/06/2024 23:33
[2024-04-06 10:43] VITALS: PULSE 82; O2SAT 92
[2024-04-06] MEDS: BUDESONIDE 0.5 MG/2 ML AMPULE NEB IH (10:43)
[2024-04-06 11:43] LABS: Glucometer 399 mg/dL (74-106)
--- NOTE | 2024-04-06 16:31 | PM.DS1 ---
DS: Providers Provider Date of admission: 04/02/24 13:04 Primary care physician: KANG MCFADDEN Consults: 04/02/24 12:46 Consult to Pharmacy Routine Consulting Provider: Reason for consultation: Please Sherrill me when Med Rec is Updated Has provider been notified: No Occupational Therapy Eval and Treat Routine Reason for consultation: Only if needed for Rehab Has provider been notified: No Physical Therapy Eval and Treat Routine Reason for consultation: Eval and Treat Has provider been notified: No DS: Diagnosis Discharge Diagnosis (1) Pneumonia: Qualifiers: Laterality: right Lung location: upper lobe of lung Pneumonia type: due to unspecified organism Qualified Code(s): J18.9 - Pneumonia, unspecified organism (2) Acute hypoxic respiratory failure: (3) Acute exacerbation of chronic obstructive airways disease: (4) Type 2 diabetes mellitus with hyperglycemia: Qualifiers: Diabetes mellitus correction insulin use: with correction use Qualified Code(s): E11.65 - Type 2 diabetes mellitus with hyperglycemia; Z79.4 - detention (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 of insulin (5) HTN (hypertension): Qualifiers: Hypertension type: primary hypertension Qualified Code(s): I10 - Essential (primary) hypertension DS: Summary Hospital Course Hospital Course: Reason for admission: See ER note and H&P for details. 83 y/o male with a history of COPD to ER with SOB. Diagnosed with covid about 2 weeks prior and treated with decadron. Continued SOB and cough and symptoms worsened. Called EMS and SpO2 90 % on room air. Taken to ER and WBC 20.7. CTA without PE but showed RUL pneumonia and admitted. Started zosyn and clindamycin. Started breathing treatments. Started PT for weakness. Consulted pulmonology. Not able to wean oxygen but stable. Significant weakness and problems with transfers. concerned not able to care for him at home and information sent to SNF. Added solu-medrol and breathing improved. Transferred to SNF in stable condition. Will take prednisone tapered over 12 days. Continue antibiotics and resume home medication as directed. Time Spent with Patient Time attestation: Total time spent providing and/or coordinating discharge services: Time spent: greater than 30 minutes Exam Constitutional Vital Signs, click to edit/add: Last Vital Signs Temp 97.6 F 04/06/24 07:23 Pulse 82 04/06/24 10:43 Resp 18 04/06/24 08:00 BP 145/80 H 04/06/24 07:23 Pulse Ox 92 L 04/06/24 10:43 O2 Del Method Nasal Cannula 04/06/24 10:43 O2 Flow Rate 4 04/06/24 10:43 Documenting provider has reviewed patient's vital signs: yes Common normals: no apparent distress, oriented x3 and alert HENMT Common normals: normocephalic Eye Common normals: PERRL and EOMs intact bilaterally Respiratory Auscultation: wheezes expiratory wheezes and throughout Cardio Common normals: regular rate, regular rhythm, no gallops, no murmurs and no rub GI Common normals: Normal to inspection, nondistended, normoactive bowel sounds present and non-tender Extremity Common normals: no pedal edema DS: Data Data Completed and Pending Labs on day of discharge: Labs from last 24 hours 04/06/24 04/06/24 04/05/24 11:42 06:21 22:15 WBC 16.8 H RBC 3.68 L Hgb 11.8 L Hct 35.4 L MCV 96.2 H MCH 32.1 MCHC 33.3 RDW 12.9 Plt Count 207 MPV 10.4 Neut % (Auto) 93.7 H Lymph % (Auto) 3.0 L Sutton % (Auto) 2.3 Eos % (Auto) 0.0 L Baso % (Auto) 0.1 L Neut # (Auto) 15.8 H Lymph # (Auto) 0.5 L Sutton # (Auto) 0.4 Eos # (Auto) 0.0 Baso # (Auto) 0.0 Abs Immat Gran (auto) 0.15 H Imm/Tot Granulo (auto) 0.9 H Sodium 137 Potassium 3.8 Chloride 101 Carbon Dioxide 26.8 Anion Gap 13.0 BUN 32.0 H Creatinine 1.46 H Est GFR ( Amer) 56 L Est GFR (Non-Af Amer) 46 L BUN/Creatinine Ratio 21.9 Glucose 337 H Calcium 9.0 POC Glucose 399 H 312 H Preliminary micro results at discharge 04/02/24 10:09 Bacterial ID and Susceptibility - Preliminary Blood - Left Hand Staphylococcus epidermidis Anaerobe Identification - Preliminary 04/02/24 10:09 Blood Culture Result 2 - Preliminary Blood 04/02/24 10:04 Blood Culture Result 1 - Preliminary Blood NO GROWTH AT 36-48 HOURS. FINAL TO FOLLOW. Discharge Plan Discharge Disposition: Xfer SNF Condition: Fair Discharge Medications: New clindamycin HCl 300 mg capsule 300 mg PO Q6H 10 Days Qty: 40 0RF prednisone 10 mg tablets,dose pack 10 mg PO DAILY Qty: 39 0RF Rx Instructions: 6 PO daily x 3 days, then 4 PO daily x 3 days, then 2 PO daily x 3 days, then 1 PO daily x 3 days amoxicillin-pot clavulanate 875-125 mg tablet 1 tab PO Q12H 14 Days Qty: 28 0RF Continued losartan 50 mg tablet 50 mg PO DAILY atorvastatin 20 mg tablet 20 mg PO QPM allopurinol 100 mg tablet 100 mg PO DAILY omeprazole 40 mg capsule,delayed release(DR/EC) 40 mg PO .ACB levothyroxine 88 mcg tablet 88 mcg PO .ACB magnesium oxide 400 mg (241.3 mg magnesium) tablet 400 mg PO DAILY metformin 750 mg tablet extended release 24 hr 750 mg PO DAILY@1700 [facility] Aerosphere 160-9-4.8 mcg/actuation HFA aerosol inhaler 2 inh INHALATION BID bioflavonoid products Tablet PO albuterol sulfate 90 mcg/actuation HFA aerosol inhaler 2 puff INHALATION Q4H PRN (Reason: shortness of breath or wheezing) albuterol sulfate 2.5 mg /3 mL (0.083 %) solution for nebulization 2.5 mg inhalation Q8H PRN (Reason: shortness of breath or wheezing) brimonidine 0.2 % drops 1 drp OPHTHALMIC (EYE) BID latanoprost 0.005 % drops 1 drp OPHTHALMIC (EYE) BEDTIME timolol maleate 0.5 % drops 1 drp OPHTHALMIC (EYE) BID Fiasp FlexTouch U-100 Insulin 100 unit/mL (3 mL) insulin pen 1 sliding scale dose SUBCUT BID Print Language: Kosovan Forms: Portal Instructions Discharge Date/Time: 04/06/24 13:18
== END 2024-04-06 13:18 | DRG 871 ==
LOC: ER 13:04 → MS 13:13
PROVIDERS: Admitting Provider Family Medicine; Emergency Provider Emergency Medicine; PCP Family Medicine; Visit Provider Family Medicine
DX: A41.9 Sepsis, unspecified organism (principal); J15.9 Unspecified bacterial pneumonia; J96.01 Acute respiratory failure with hypoxia; J44.0 Chronic obstructive pulmonary disease with (acute) lower respiratory infection; J44.1 Chronic obstructive pulmonary disease with (acute) exacerbation; B37.0 Candidal stomatitis; E87.1 Hypo-osmolality and hyponatremia; J90 Pleural effusion, not elsewhere classified; U09.9 Post COVID-19 condition, unspecified; Z87.891 Personal history of nicotine dependence; G47.33 Obstructive sleep apnea (adult) (pediatric); Z79.4 Long term (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 of insulin; Z79.84 Long term (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 of oral hypoglycemic drugs; I10 Essential (primary) hypertension; E86.0 Dehydration; E78.00 Pure hypercholesterolemia, unspecified; E03.9 Hypothyroidism, unspecified; K21.9 Gastro-esophageal reflux disease without esophagitis; E83.42 Hypomagnesemia; E11.65 Type 2 diabetes mellitus with hyperglycemia
CPT/HCPCS: 36415; 71045; 71046; 71275; 80048; 80053; 81001; 82948; 83605; 84484; 85025; 85610; 87040; 87150; 87186; 93005; 94640; 94667; 94668; 94761; 96365; 96375; 97110; 97161; 97165; 97530; 99285; G0328; J1100; J2543; J2919; Q9967

== ENCOUNTER 2024-07-02 13:42 | Outpatient (OUT) | payer MEDICARE, SELFPAY | END 2024-07-02 13:43 | disposition home or self-care (01) | LOC: US 13:43 | PROVIDERS: PCP Family Medicine; Visit Provider Family Medicine | DX: M79.605 Pain in left leg (principal); M79.89 Other specified soft tissue disorders | CPT/HCPCS: 93971 ==

== ENCOUNTER 2024-07-02 14:28 | Emergency (ER) | payer MEDICARE, SELFPAY ==
[2024-07-02 15:00] VITALS: BP 161/89; PULSE 90; TEMP 36.8; O2SAT 97; BMI 25.8
--- NOTE | 2024-07-02 15:24 | ED.GENADUL1 ---
HPI HPI - General Adult General Chief complaint: Extremity Problem, Nontraumatic Stated complaint: DVT - SENT FROM RAD Time Seen by Provider: 07/02/24 15:05 Source: patient and family Mode of arrival: Wheelchair Limitations: no limitations History of Present Illness HPI narrative: 84-year-old male presents for swelling in his left leg which she has had for 2 days. No trauma. His doctor ordered an outpatient Doppler and it came positive and he was sent here to the emergency department. No chest pain or shortness of breath and has never had a DVT before. No recent immobilization or surgery. He does not smoke currently and nobody in his family has had a DVT of which she is aware. Related Data Home Medications ?Medication ?Instructions ?Recorded ?Confirmed albuterol sulfate 2.5 mg/3 mL 2.5 mg inhalation Q8H PRN 04/02/24 04/02/24 (0.083 %) solution for nebulization shortness of breath or wheezing albuterol sulfate 90 mcg/actuation 2 puff inhalation Q4H PRN 04/02/24 04/02/24 aerosol inhaler shortness of breath or wheezing allopurinol 100 mg tablet 100 mg PO DAILY 04/02/24 04/02/24 atorvastatin 20 mg tablet 20 mg PO QPM 04/02/24 04/02/24 bioflavonoid products tablet tab PO 04/02/24 brimonidine 0.2 % eye drops 1 drp ophthalmic (eye) BID 04/02/24 04/02/24 budesonide 160 mcg-glycopyr 9 2 inh inhalation BID 04/02/24 04/02/24 mcg-formot 4.8 mcg/actuation HFA inhaler (Breztri Aerosphere) insulin aspart 1 sliding scale dose subcut BID 04/02/24 04/02/24 (niacinamide)(U-100) 100 unit/mL(3 mL) subcutaneous pen (Fiasp FlexTouch U-100 Insulin) latanoprost 0.005 % eye drops 1 drp ophthalmic (eye) BEDTIME 04/02/24 04/02/24 levothyroxine 88 mcg tablet 88 mcg PO .ACB 04/02/24 04/02/24 losartan 50 mg tablet 50 mg PO DAILY 04/02/24 04/02/24 magnesium oxide 400 mg (241.3 mg 400 mg PO DAILY 04/02/24 04/02/24 magnesium) tablet metformin 750 mg tablet,extended 750 mg PO DAILY@1700 04/02/24 04/02/24 release 24 hr omeprazole 40 mg capsule,delayed 40 mg PO .ACB 04/02/24 04/02/24 release timolol maleate 0.5 % eye drops 1 drp ophthalmic (eye) BID 04/02/24 04/02/24 Previous Rx's ?Medication ?Instructions ?Recorded amoxicillin 875 mg-potassium 1 tab PO Q12H 14 days #28 tabs 04/06/24 clavulanate 125 mg tablet clindamycin HCl 300 mg capsule 300 mg PO Q6H 10 days #40 caps 04/06/24 prednisone 10 mg tablets in a dose 10 mg PO DAILY #39 ea 04/06/24 pack rivaroxaban 15 mg (42)-20 mg (9) See Rx Instructions PO .COMPLEX 07/02/24 tablets in a starter pack (Xarelto #51 ea DVT-PE Treatment 30-Day Starter) Allergies Allergy/AdvReac Type Severity Reaction Status Date / Time erythromycin base Allergy Severe Rash Verified 04/02/24 10:40 levofloxacin Allergy Severe Rash Verified 04/02/24 11:54 Sulfa (Sulfonamide Allergy Severe Rash Verified 04/02/24 11:54 Antibiotics) metformin AdvReac Intermediate Diarrhea Verified 04/02/24 11:54 Opioid HPI Opioid Management Most Recent Opioid Data: Last Pain Scale 6 Today, 15:00 Last ORT Total Score 0 04/02/24, 13:38 Last ORT Risk Category Low Risk 04/02/24, 13:38 Review of Systems ROS Narrative A ten point review of systems is negative except as noted above. [facility] Medical History (Updated 07/02/24 @ 15:23 by Cristino Flores MD) Type 2 diabetes mellitus with hyperglycemia ?E11.65 - Type 2 diabetes mellitus with hyperglycemia (ICD-10) Acute exacerbation of chronic obstructive airways disease ?J44.1 - Chronic obstructive pulmonary disease with (acute) exacerbation (ICD-10) Acute hypoxic respiratory failure ?J96.01 - Acute respiratory failure with hypoxia (ICD-10) HTN (hypertension) ?I10 - Essential (primary) hypertension (ICD-10) Hypoxia ?R09.02 - Hypoxemia (ICD-10) Diabetes 1.5, managed as type 1 ?E13.9 - Other specified diabetes mellitus without complications (ICD-10) COPD (chronic obstructive pulmonary disease) ?J44.9 - Chronic obstructive pulmonary disease, unspecified (ICD-10) Social History (Updated 04/02/24 @ 13:37 by Janis Sumner) Within the past year, how often did you have a drink containing alcohol: never Within the past year, how often did you have six or more drinks on one occasion: never Score interpretation: A score less than 4 is consistent with normal alcohol consumption. 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 Known occupational exposures/hazards: No Highest level of school completed/degree received: high school graduate Are you now , , , , never or living with a partner: In a typical week, how many times do you talk on the telephone with family, friends, or neighbors: 3 or more times per week How often do you get together with friends or relatives: 3 or more times per week How often do you attend anabaptism or catholic services: 4 or more times per year Do you belong to any clubs or organizations such as anabaptism groups unions, [employer] or athletic groups, or school groups: no Total score: 3 Score interpretation: A score of greater than or equal to 2 indicates the lowest level of social isolation. Little interest or pleasure in doing things: not at all Feeling down, depressed, or hopeless: not at all Feel stressed/tense/nervous/anxious/difficulty sleeping: not at all Due to disability, difficulty making decisions: No Do you think of yourself as: straight/heterosexual Gender Identity: male Exam Narrative Exam Narrative: Nurses note and vital signs reviewed and patient is not hypoxic. General: The patient appears well and in no apparent distress. Patient is resting comfortably on cart. Skin: Warm, dry, no pallor noted. There is no rash noted. Head: Normocephalic, atraumatic Eye: Normal conjunctiva, no drainage Ears, Nose, Mouth, and Throat: oral mucosa is moist. Nares patent. Cardiovascular: Regular Rate and Rhythm Respiratory: Patient is in no distress, no accessory muscle use, lungs are clear to auscultation, no wheezing, rales or rhonchi Back: non-tender GI: Soft and nontender Musculoskeletal: Left leg is swollen compared to the contralateral. Dorsalis pedis pulse 2+ Neurological: A&O, normal speech Psychiatric: Cooperative Constitutional Vital Signs, click to edit/add: Last Vital Signs Temp 98.2 F 07/02/24 15:00 Pulse 90 07/02/24 15:00 Resp 16 07/02/24 15:00 BP 161/89 H 07/02/24 15:00 Pulse Ox 97 07/02/24 15:00 O2 Del Method Room Air 07/02/24 15:00 Course Vital Signs Vital signs: Vital Signs Temperature 98.2 F 07/02/24 15:00 Pulse Rate 90 07/02/24 15:00 Respiratory Rate 16 07/02/24 15:00 Blood Pressure 161/89 H 07/02/24 15:00 Pulse Oximetry 97 07/02/24 15:00 Oxygen Delivery Method Room Air 07/02/24 15:00 Temperature 98.2 F 07/02/24 15:00 Pulse Rate 90 07/02/24 15:00 Respiratory Rate 16 07/02/24 15:00 Blood Pressure 161/89 H 07/02/24 15:00 Pulse Oximetry 97 07/02/24 15:00 Oxygen Delivery Method Room Air 07/02/24 15:00 Medical Decision Making MDM Narrative Medical decision making narrative: Case is discussed with Dr. Mcdermott. Xarelto was prescribed with outpatient follow-up and compression stockings are being placed here. Treatment diagnosis and follow-up were discussed with the patient. Differential Diagnosis Differential Diagnosis: DVT, edema Imaging Data Venous Doppler: Radiologist's impression: Nonocclusive thrombus throughout the left lower extremity involving the femoral, popliteal and peroneal veins Discharge Plan Discharge Chief Complaint: Extremity Problem, Nontraumatic Clinical Impression: Deep vein thrombosis of lower extremity Patient Disposition: Home, Self-Care Time of Disposition Decision: 15:22 Condition: Good Mode of Transportation: Private Vehicle Prescriptions / Home Meds: New Xarelto DVT-PE Treat 30d Start 15 mg (42)- 20 mg (9) tablets,dose pack See Rx Instructions .ROUTE .COMPLEX Qty: 51 0RF Rx Instructions: take one-15 mg tablet twice daily for 21 days, then one-20 mg tablet once daily; must take with meal/food No Action losartan 50 mg tablet 50 mg PO DAILY atorvastatin 20 mg tablet 20 mg PO QPM allopurinol 100 mg tablet 100 mg PO DAILY omeprazole 40 mg capsule,delayed release(DR/EC) 40 mg PO .ACB levothyroxine 88 mcg tablet 88 mcg PO .ACB magnesium oxide 400 mg (241.3 mg magnesium) tablet 400 mg PO DAILY metformin 750 mg tablet extended release 24 hr 750 mg PO DAILY@1700 Breztri Aerosphere 160-9-4.8 mcg/actuation HFA aerosol inhaler 2 inh INHALATION BID bioflavonoid products Tablet PO albuterol sulfate 90 mcg/actuation HFA aerosol inhaler 2 puff INHALATION Q4H PRN (Reason: shortness of breath or wheezing) albuterol sulfate 2.5 mg /3 mL (0.083 %) solution for nebulization 2.5 mg inhalation Q8H PRN (Reason: shortness of breath or wheezing) brimonidine 0.2 % drops 1 drp OPHTHALMIC (EYE) BID latanoprost 0.005 % drops 1 drp OPHTHALMIC (EYE) BEDTIME timolol maleate 0.5 % drops 1 drp OPHTHALMIC (EYE) BID Fiasp FlexTouch U-100 Insulin 100 unit/mL (3 mL) insulin pen 1 sliding scale dose SUBCUT BID clindamycin HCl 300 mg capsule 300 mg PO Q6H 10 Days Qty: 40 0RF prednisone 10 mg tablets,dose pack 10 mg PO DAILY Qty: 39 0RF Rx Instructions: 6 PO daily x 3 days, then 4 PO daily x 3 days, then 2 PO daily x 3 days, then 1 PO daily x 3 days amoxicillin-pot clavulanate 875-125 mg tablet 1 tab PO Q12H 14 Days Qty: 28 0RF Print Language: Yi Instructions: Deep Vein Thrombosis (ED), Blood Thinners (ED) Referrals: KANG MCFADDEN [Primary Care Provider, Family Practice] - 1 week Crystal Mcdermott MD [Physician, Vascular Surgery] - 1-2 weeks
--- NOTE | 2024-07-02 15:37 | PC.NURSE ---
compression stockings applied by this RN, pms intact post application.
[2024-07-02] MEDS: RIVAROXABAN 10 MG TABLET 15 MG PO ×2 (15:59→16:00)
== END 2024-07-02 16:05 | disposition home or self-care (01) ==
PROVIDERS: Emergency Provider Emergency Medicine; PCP Family Medicine
DX: I82.402 Acute embolism and thrombosis of unspecified deep veins of left lower extremity (principal); M79.605 Pain in left leg; M79.89 Other specified soft tissue disorders; Z87.891 Personal history of nicotine dependence
CPT/HCPCS: 93971; 99283

== ENCOUNTER 2024-07-27 21:04 | Emergency (ER) | payer MEDICARE, SELFPAY ==
[2024-07-27 21:07] VITALS: BP 149/86; PULSE 97; TEMP 36.7; O2SAT 96; BMI 25.8
--- OUTSIDE RECORDS SUMMARY | 2024-07-27 21:19 | XMS_ITS | CCD ---
Author Organization [facility] Care Team Providers Care Assistant Professor In Family Studies Name Role Phone Oumar Haynes Unavailable CLAYTON MCFADDEN Primary Care Physician MD Clayton Mcfadden Primary Care Provider [phone] MD Oumar Haynes Attending Provider [phone] Clayton Mcfadden MD Primary Care Provider [phone] KONG PEPE Attending Unavailable KONG PEPE Attending [...] SOSA ., DR THELMA Brown Admitting Unavailable STUART, DR ULISSES Ivey Consulting Unavailable SHAIKH Matilde [...] ., DR KAPADIA Primary Care Unavailable DONALD ., GABRIELA Admitting Unavailable SOSA ., DR THELMA Brown [...] ZOILA Admitting Unavailable HEMEYER ., DR KAPADIA Admrosi [...] HEMECLAYTON SALEH Primary Care Unavailable ERICA VERAS Referring Unavailable Hemeyer, MD Edward J Primary Care Provider [phone] SHELBY Duff Attending Provider Horace Jasso Unavailable [phone] 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 Attending Unavailable 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 Admitting Unavailable Clayton Mcfadden Primary Care Unavailable Clayton Mcfadden MD Unavailable Clayton Mcfadden MD Primary Care Provider [phone] Briseida Paez RN Unavailable Unavailable Clayton Mcfadden MD Unavailable Clayton Mcfaddne MD Primary Care Provider [phone] Jeannine SPIVEY, Briseida Unavailable [phone] Clayton Mcfadden MD Unavailable Clayton Mcfadden MD Primary Care Provider [phone] Unavailable Primary Care Provider Unavailabl e CLAYTON MCFADDEN Attending Unavailable CLAYTON MCFADDEN Attending Unavailable CLAYTON MCFADDEN Attending Unavailable URBAN MAE Attending Unavailable CLAYTON MCFADDEN Attending Unavailable CLAYTON MCFADDEN Attending Unavailable CLAYTON MCFADDEN Attending Unavailable CLAYTON MCFADDEN Attending Unavailable HEMEJASON SALEHWARD Miguel Attending Unavailable URBAN MAE Attending Unavailable CLAYTON MCFADDEN Attending Unavailable CRYSTAL MCDERMOTT Attending Unavailable Allergies Allergy Classification Reported Allergen(s) Allergy Type Date of Onset Reaction(s) Facility (20 sources) Sulfamethoxazole / Trimethoprim; Translations: [sulfamethoxazole-t rimethoprim] Drug Allergy 06-21-19 23 Weal (disorder), Rash [facility] (2 sources) Tetracycline; Translations: [tetracycline] Drug Allergy Finding reported by subject or history provider (finding) [facility] (20 sources) Erythromycin Drug Allergy 12-08-19 08 Nausea And Vomiting, Rash [facility] (20 sources) levoFLOXacin; Translations: [LEVOFLOXACIN] Drug Allergy 03-01-19 23 Diarrhea, Rash [facility] Work Phone: (1 source) Sulfamethoxazole / Trimethoprim Drug Allergy [facility] (20 sources) metFORMIN Drug Allergy 08-04-19 [facility] (20 sources) Erythromycin Base; Translations: [ERYTHROMYCIN BASE] Drug Allergy 08-04-19 Nausea Only [facility] (2 sources) Sulfonamides (Antibiotic); Translations: [SULFA (SULFONAMIDE ANTIBIOTICS)] Propensity to adverse reactions to drug 07-18-19 Rash [facility] Medications Current Medications Medication Drug Class(es) Dates Sig (Normalized) Sig (Original) [id number] 200 actuat albuterol 0.09 mg/actuat metered dose inhaler (20 sources) beta2-Adrenergic Agonist Start: 09-25-2022 take 2 puff(s) by inhalation every six hours for wheezing albuterol HFA 90 mcg/act inhaler Inhale 2 puffs every 6 (six) hours if needed for wheezing or shortness of breath 09/25/2022 Active take 2.5 mg by inhal ation every eight hours as needed for wheezing albuterol (PROVENTIL,VENTOLIN) 2.5 mg /3 mL (0.083 %) nebulizer solution Inhale 3 mL (2.5 mg total) by nebulization every 8 (eight) hours as needed for wheezing. Active take 2 puff(s) by in halation every four hours as needed for wheezing albuterol (PROVENTIL HFA;VENTOLIN HFA) 9 0 mcg/actuation inhaler Inhale 2 puffs every 4 (four) hours as needed for wheezing. Active Allergy 25 MG (3 sources) take 1 capsule by mouth once daily Allergy 25 MG 1 capsule Orally Once a day Active allopurinol 100 mg oral tablet (20 sources) Xanthine Oxidase Inhibitor Start: End: take 1 tablet by mouth in the morning allopurinoL (ZYLOPRIM) 100 mg tablet Take 1 tablet (100 mg total) by mouth in the morning. 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 90 tablet 1 10/25/2022 04/23/2023 Active Start: 05-12-2019 allopurinol Re fills(s) 0 Start Date: 05/12/19 Status: Ordered amoxicillin 875 mg / clavulanate 125 mg oral tablet (4 sources) Penicillin-class Antibacterial Start: 04-07-2024 End: 04-21-2024 take 1 tablet by mouth in the morning amoxicillin-clavulanate (Augmentin) 875-125 MG tablet Indications: Pneumonia of right upper lobe due to infectious organism , Acute hypoxic respiratory failure (CMS/HCC) , Acute exacerbation of chronic obstructive pulmonary disease (COPD) (CMS/HCC) Take 1 tablet (875 mg) by mouth in the morning and 1 tablet (875 mg) before bedtime. Do all this for 14 days. 28 tablet 04/07/2024 04/21/2024 Discontinued (Therapy completed) take 1 tablet by yuan th once in the morning amoxicillin-pot clavulanate (AUGMENTIN) 875-125 mg per tablet Take 1 tablet by mouth in the morning and 1 tablet before bedtime. Active Ascorbic Acid (6 sources) Vitamin C Start: 11-23-2021 Vitamin C Amaya y, Refills(s) 0 Start Date: 11/23/21 Status: Ordered End: 11-12-2023 take 1 tablet by mouth in the morning ascorbic acid (Vitamin C) 500 MG tablet Take 500 mg by mouth in the morning. 11/12/2023 Discontinued (Therapy completed) aspirin 81 mg oral tablet (20 sources) Platelet Aggregation Inhibitor, Nonsteroidal Anti-inflammatory Drug Start: 05-12-2019 take 1 mg by mouth once daily aspirin 81 mg oral tablet mg tab(s), Oral, Daily, Refills(s) 0 Start Date: 05/12/19 Status: Ordered End: 07-10-2024 take 1 tablet by mouth in the morning aspirin 81 MG EC tablet Take 81 mg by mouth in the morning. 07/10/2024 Discontinued (Therapy completed) atorvastatin 20 mg oral tablet (20 sources) HMG-CoA Reductase Inhibitor Start: 05-22-2023 End: 11-30-2024 take 1 tablet by mouth in the morning atorvastatin (LIPITOR) 20 mg tablet Take 1 tablet (20 mg total) by mouth in the morning. 06/03/2024 11/30/2024 Active Start: 04-20-2022 End: 04-23-2023 take 1 tablet by mouth in the evening atorvastatin (Lipitor) 20 MG tablet Indications: Mixed hyperlipidemia (CMS/HCC) Take 1 tablet (20 mg) by mouth in the evening. 90 tablet 1 10/25/2022 04/23/2023 Active bimatoprost 0.1 mg/ml ophthalmic solution (3 sources) Prostaglandin Analog take 1 drop(s) into the eye(s) in the morning bimatoprost (LUMIGAN) 0.01 % ophthalmic drops Instill 1 drop to eye in the morning. Active take 1 drop(s) into the eye(s) once daily bimatoprost (LUMIGAN) 0.01 % SOLN ophthalmic drops Place 1 drop into both eyes nightly 0 Active Bioflavonoid Products (REAL C PO) (20 sources) take 500 mg by mouth once daily Bioflavonoid Products (REAL C PO) Take 500 mg by mouth Daily Active Bioflavonoid Pro ducts (REAL C PO) Take by mouth 0 Active brimonidine tartrate 2 mg/ml ophthalmic solution (20 sources) alpha-Adrenergic Agonist take 1 drop(s) into the eye(s) in the morning brimonidine (ALPHAGAN) 0.2 % ophthalmic solution Administer 1 drop to both eyes in the morning and 1 drop before bedtime. Active take 1 drop(s) into the eye(s) three times daily brimonidine (ALPHAGAN) 0.2 % ophthalmic solution 1 drop 3 times daily 0 Active 120 actuat budesonide 0.16 mg/actuat / formoterol fumarate 0.0048 mg/actuat / glycopyrrolate 0.009 mg/actuat metered dose inhaler (20 sources) Corticosteroid, beta2-Adrenergic Agonist Start: 08-01-2023 take 2 puff(s) by inhalation in the morning lsyfbfqcur-ibbnmyuq-hlzaerrkcv (BREZTRI AEROSPHERE) 160-9-4.8 mcg/actuation HFA aerosol inhaler Inhale 2 puffs in the morning and 2 puffs before bedtime. 08/01/2023 Active carboxymethylce llulose sodium 5 mg/ml ophthalmic solution (2 sources) Carboxymethylcel lulose Sodium (EYE DROPS) 0.5 % SOLN Apply to eye 0 Active cefuroxime 500 mg oral tablet (3 sources) Cephalosporin Antibacterial Start: 01-03-2024 End: 01-13-2024 take 1 tablet by mouth in the morning cefuroxime (Ceftin) 500 MG tablet Indications: Acute exacerbation of chronic obstructive pulmonary disease (COPD) (CMS/HCC) Take 1 tablet (500 mg) by mouth in the morning and 1 tablet (500 mg) before bedtime. Do all this for 10 days. 20 tablet 01/03/2024 01/13/2024 Active clindamycin 300 mg oral capsule (4 sources) Lincosamide Antibacterial Start: 04-07-2024 End: 04-21-2024 clindamycin (Cleocin) 300 MG capsule Indications: Pneumonia of right upper lobe due to infectious organism , Acute hypoxic respiratory failure (CMS/HCC) , Acute exacerbation of chronic obstructive pulmonary disease (COPD) (CMS/HCC) Take 1 capsule (300 mg) by mouth in the morning and 1 capsule (300 mg) at noon and 1 capsule (300 mg) in the evening and 1 capsule (300 mg) before bedtime. Do all this for 10 days. 40 capsule 04/07/2024 04/21/2024 Discontinued (Therapy completed) clotrimazole 10 mg oral lozenge (3 sources) Azole Antifungal Start: 04-09-2024 End: 05-09-2024 clotrimazole (Mycelex) 10 MG papo Indications: Thrush Take 1 tablet (10 mg) by mouth in the morning and 1 tablet (10 mg) at noon and 1 tablet (10 mg) in the evening and 1 tablet (10 mg) before bedtime. 120 tablet 04/09/2024 05/09/2024 Active doxycycline hyclate 100 mg oral capsule [...] insulin aspart, human 100 unt/ml pen injector (20 sources) Insulin Analog Start: 11-12-2023 insulin aspart [...] at bedtime As directed 0 08/08/2022 Active inject 1 [IU] by sub cutaneous injection at bedtime insulin aspart, niacinamide, (FIASP FLEXTOUCH U-100 INSULIN) 100 unit/mL (3 mL) insulin pen Inject 1 Unit under the skin in the morning and at bedtime. Sliding scale Active ketorolac tromethamine 5 mg/ml ophthalmic solution (2 sources) Nonsteroidal Anti-inflammatory Drug, Cyclooxygenase Inhibitor Start: 12-08-2007 take 1 drop(s) into the eye(s) four times daily ketorolac (ACULAR) 0.5 % ophthalmic solution Apply 1 drop to eye 4 times daily 0 12/08/2007 Active latanoprost 0.05 mg/ml ophthalmic solution (20 sources) Prostaglandin Analog take 1 drop(s) into the eye(s) once daily latanoprost (XALATAN) 0.005 % ophthalmic solution Administer 1 drop to both eyes nightly. Active take 1 drop(s) into the eye(s) at bedtime latanoprost (Xalatan) 0.005 % ophthalmic solution Administer 1 drop into both eyes at bedtime Active levoFLOXacin 500 mg oral tablet (1 [...] Ordered levothyroxine sodium 0.088 mg oral tablet (20 sources) l-Thyroxine Start: 01-15-2023 End: 10-23-2024 take 1 tablet by mouth in the morning levothyroxine (SYNTHROID, LEVOTHROID) 88 MCG tablet Take 1 tablet (88 mcg total) by mouth in the morning. 04/26/2024 10/23/2024 Active Start: 11-23-2021 take 1 capsule by [facility] once daily levothyroxine 88 mcg (0.088 mg) oral capsule 88 mcg = 1 cap(s), Oral, Daily, # 30 cap(s), Refills(s) 0 Start Date: 11/23/21 Status: Ordered take 1 tablet by yuan once daily levothyroxine (SYNTHROID) 88 MCG tablet Take 1 tablet by mouth Daily 0 Active losartan potassium 50 mg oral tablet (20 sources) Angiotensin 2 Receptor [place] Start: 05-22-2023 End: 11-30-2024 take 1 tablet by mouth in the morning losartan (COZAAR) 50 mg tablet Take 1 tablet (50 mg total) by mouth in the morning. 06/03/2024 11/30/2024 Active Start: 11-23-2021 End: 04-23-2023 take 1 [...] completed) magnesium oxide 400 mg oral tablet (20 sources) Start: 05-24-2023 End: 06-10-2025 take 1 tablet by mouth in the morning magnesium oxide (MAGOX) 400 mg tablet Take 1 tablet (400 mg total) by mouth in the morning. 06/10/2024 Active Start: 03-07-2023 magnesium oxid e (Mag-Ox) [...] hydrochloride 750 mg extended release oral tablet (20 sources) Biguanide Start: 06-03-2024 End: 11-30-2024 take 1 tablet by mouth once daily at breakfast metFORMIN XR (GLUCOPHAGE XR) 750 mg 24 hr tablet Take 1 tablet (750 mg total) by mouth daily with breakfast. 06/03/2024 11/30/2024 Active Start: 05-22-2023 End: 11-30-2024 take 1 tablet by mouth every twenty-four hours at mealtime metFORMIN XR (Glucophage-XR) 750 MG 24 hr tablet Indications: Type 2 diabetes mellitus with stage 3a chronic kidney disease, with long-term current use of insulin (HCC) (CMS/HCC) Take 1 tablet (750 mg) by mouth in the evening. Take with meals 90 tablet 1 06/03/2024 11/30/2024 Active Start: 10-25-2022 End: 04-23-2023 take 1 [...] Active Multiple Vitamins-Minerals (Multi For Him) tablet (20 sources) take 1 tablet by yuan th once daily Multiple Vitamins-Minerals (Multi For Him) tablet Take 1 tablet by mouth Daily Active take 1 tablet by mouth in the mo rning Multiple Vitamins-Minerals (Multi For Him) tablet Take 1 tablet by mouth in the morning. Active [facility] Multiple Vitamins-Minerals (Multi For Him) tablet Take 1 tablet by mouth in the morning. 0 Active omeprazole 40 mg delayed release oral capsule (20 sources) Proton Pump Inhibitor Start: 01-15-2023 End: 10-23-2024 take 1 capsule by mouth once daily before breakfast omeprazole (PriLOSEC) 40 mg capsule Take 1 capsule (40 mg total) by mouth every morning before breakfast. 04/26/2024 10/23/2024 Active Start: 05-12-2019 omeprazole Ora l, Daily, Refills(s) 0 Start Date: 05/12/19 Status: Ordered take 1 capsule by [facility] every twenty-four hours Omeprazole 20 MG 1 capsule Orally Once a day for 30 day(s) Active take 40 mg by mouth once daily O MEPRAZOLE PO Take 40 mg by mouth daily 0 Active polyethylene glycol 3350 94796 mg powder for oral solution (20 sources) Osmotic Laxative polyethylene gl ycol, PEG, 3350 (Glycolax) 17 GM/SCOOP powder Indications: Constipation Take 17 g by mouth Daily Active polymyxin b 36150 unt/ml / trimethoprim 1 mg/ml ophthalmic solution (2 sources) Dihydrofolate Reductase Inhibitor Antibacterial, Polymyxin-class Antibacterial Start: 12-08-19 08 take 1 drop(s) into the eye(s) every four hours trimethoprim-polymyx in b (POLYTRIM) 64788-1.1 UNIT/ML-% ophthalmic solution Apply 1 drop to eye every 4 hours 0 12/08/2007 Active Probiotic Product (PROBIOTIC-10 PO) (1 source) Probiotic Produc t (PROBIOTIC-10 PO) Take by mouth 0 Active Ramipril (2 sources) Angiotensin Converting Enzyme Inhibitor Ramipril (ALTACE PO) Take by mouth 0 Active rivaroxaban 2.5 mg oral tablet (9 sources) Factor Xa Inhibitor Start: 07-18-19 25 take 8 tablets by mouth in the morning rivaroxaban (XARELTO) 2.5 mg tablet Take 8 tablets (20 mg total) by mouth in the morning. 720 tablet 2 07/17/2024 Active Start: 07-17-2024 End: 07-17-2024 rivaroxaban (XARELTO) tablet 20 mg Start: 07-03-2024 Xarelto Starte r Pack 15 & 20 MG tablet therapy pack 07/03/2024 Active Start: 07-02-2024 XARELTO DVT-PE TREAT 30D START 15 mg (42)- 20 mg (9) tablets,dose pack Take 15 mg by mouth in the morning and at bedtime. 15mg twice daily for 21 days, then 20mg daily 07/03/2024 Active sodium chloride 9 mg/ml inhalation solution (20 sources) Start: 02-27-2023 sodium chlorid e 0.9 % nebulizer solution Take 3 mL by nebulization if needed 02/27/2023 Active tamsulosin hydrochloride 0.4 mg oral capsule (3 sources) alpha-Adrenerg ic [place] Start: 08-09-2022 take 1 capsule by [...] 12 hr timolol 5 mg/ml ophthalmic solution (20 sources) beta-Adrenergic [place] take 1 drop(s) into the eye(s) in the morning timolol (TIMOPTIC) 0.5 % ophthalmic solution Administer 1 drop to both eyes in the morning and 1 drop before bedtime. Active take 1-2 drop(s) int o the eye(s) twice daily timolol (BETIMOL) 0.25 % ophthalmic solution 1-2 drops 2 times daily 0 Active vitamin b12 1 mg oral tablet (20 sources) Vitamin B12 cyanocobalamin ( Vitamin B-12) 1000 MCG tablet Take 2,500 mcg by mouth Daily Active Cyanocobalamin ( VITAMIN B 12) 100 MCG LOZG Take by mouth 0 Active Completed/Discontinued Medications Medication Drug Class(es) Dates Sig (Normalized) Sig (Original) FIBER COMPLETE PO (20 sources) take 1 tablet by yuan once daily FIBER COMPLETE PO Take 1 tablet by mouth Daily Active take 1 tablet by mouth in [...] Once a day for 30 day(s) Not-Taking/PRN Oxygen (19 sources) End: oxygen (O2) gas Inhale 3 L/min at bedtime via nasal canula 06/03/2024 Discontinued (Therapy completed) oxygen (O2) gas Inhale 3 L/min at bedtime via nasal canula Active oxygen (O2) gas Inhale 2 L/min at bedtime via nasal canula Active oxygen (O2) gas Inhale 2 L/min at bedtime via nasal canula 0 Active predniSONE 10 mg oral tablet (4 sources) Start: 04-07-2024 End: 04-19-2024 take 6 tablets by mouth once daily, then take 4 tablets by mouth once daily, then take 2 tablets by mouth once daily, then take 1 tablet by mouth once daily predniSONE (Deltasone) 10 MG tablet Indications: Pneumonia of right upper lobe due to infectious organism , Acute hypoxic respiratory failure (CMS/HCC) , Acute exacerbation of chronic obstructive pulmonary disease (COPD) (CMS/HCC) Take 6 tablets (60 mg) by mouth Daily for 3 days, THEN 4 tablets (40 mg) Daily for 3 days, THEN 2 tablets (20 mg) Daily for 3 days, THEN 1 tablet (10 mg) Daily for 3 days. 39 tablet 04/07/2024 04/19/2024 take 1 tablet [facility] [place] [facility] predniSONE (DELTASONE) 10 mg tablet Take 1 tablet (10 mg total) by mouth in the morning. Taper 60mg x 3 days, 40mg x 3 days, 20mg- x 3 days, 10mg x 3 days. Active Problems Active Problems Problem Classification Problem Date Documented Da te Episodic/Chronic Aortic; peripheral; and visceral artery aneurysms (20 sources) Abdominal aortic aneurysm 3.0 to 5.5 centimeters in male; Translations: [Abdominal aortic aneurysm, without rupture] Onset: 2 Resolved: 2 Chronic Cardiac dysrhythmias (1 source) Tachycardia; Translations: [Tachycardia, unspecified] Episodic Chronic kidney disease (20 sources) Chronic kidney disease stage 3A ; Translations: [Stage 3a chronic kidney disease (HCC)] Onset: 3 08-03-2022 Chronic Chronic kidney disease (1 source) Chronic kidney disease; Translations: [CHRONIC KIDNEY DISEASE STAGE 3A] Onset: 2 Chronic obstructive pulmonary disease and bronchiectasis (20 sources) Emphysema, unspecified; Translations: [Chronic obstructive pulmonary disease with (acute) exacerbation] Onset: 3 Resolved: 3 08-03-2022 Chronic Coronary atherosclerosis and other heart disease (20 sources) Atherosclerotic heart disease of [place] coronary artery without angina pectoris; Translations: [Coronary atherosclerosis] Onset: 3 08-03-2022 Chronic Diabetes mellitus with complications (20 sources) Type 2 diabetes mellitus with diabetic chronic kidney disease; Translations: [Insulin treated type 2 diabetes mellitus] Onset: 2 Chronic Diabetes mellitus without complication (1 source) Type 2 diabetes mellitus without complications; Translations: [TYPE 2 DM WITHOUT COMPLICATIONS] Onset: 3 Chronic Disorders of lipid metabolism (20 sources) Hyperlipidemia, unspecified; Translations: [Pure hypercholesterolemia, unspecified] Onset: 2 Chronic E Codes: Adverse effects of medical drugs (1 source) Adverse effect of insulin and oral hypoglycemic [antidiabetic] drugs, initial encounter; Translations: [ADVERS EFF INSULIN ORAL HG RX INIT] Onset: 3 Episodic E Codes: Fall (1 source) Fall; Translations: [Unspecified fall, initial encounter] Episodic Esophageal disorders (20 sources) Gastroesophageal reflux disease; Translations: [Gastroesophageal reflux disease without esophagitis] Onset: 3 05-12-2019 Chronic Essential hypertension (20 sources) Hypertensive disorder; Translations: [Essential (primary) hypertension] Onset: 3 05-12-2019 Chronic Fluid and electrolyte disorders (1 source) Hypernatremia; Translations: [Hyperosmolality and hypernatremia] 04-22-2025 Episodic Genitourinary symptoms and ill-defined conditions (2 sources) Urge incontinence; Translations: [Urge incontinence] Onset: 3 Chronic Glaucoma (20 sources) Glaucoma; Translations: [Bilateral primary open angle glaucoma] Onset: 9 Resolved: 3 05-12-2019 Chronic Gout and other crystal arthropathies (20 sources) Gout; Translations: [Chronic gout, unspecified, without tophus (tophi)] Onset: 3 05-12-2019 Chronic Hepatitis (20 sources) Nonalcoholic steatohepatitis; Translations: [Nonalcoholic steatohepatitis (KAHN)] Onset: 3 08-03-2022 Chronic Hyperplasia of prostate (20 sources) Benign prostatic hypertrophy with outflow obstruction; Translations: [Benign prostatic hyperplasia with lower urinary tract symptoms] Onset: 6 Chronic Hypertension with complications and secondary hypertension (20 sources) Hypertensive chronic kidney disease with stage 1 through stage 4 chronic kidney disease, or unspecified chronic kidney disease; Translations: [Hypertensive renal disease] Onset: 2 Chronic Inflammatory conditions of male genital organs (1 source) Prostatitis; Translations: [Inflammatory disease of prostate, unspecified] Onset: 2 Episodic Malaise and fatigue (20 sources) Chronic fatigue, unspecified; Translations: [Fatigue] Onset: 2 Chronic Menopausal disorders (1 source) Hormone replacement therapy; Translations: [HORMONE REPLACEMENT THERAPY] Onset: 3 Episodic Mycoses (4 sources) Candidiasis of mouth; Translations: [Candidal stomatitis] 04-21-2024 Episodic Occlusion or stenosis of precerebral arteries (20 sources) Atherosclerosis of left carotid artery; Translations: [Occlusion and stenosis of left carotid artery] Onset: 6 Resolved: 3 08-03-2022 Chronic Osteoarthritis (20 sources) Arthritis of left hip; Translations: [Unilateral primary osteoarthritis, left hip] Onset: 3 08-03-2022 Chronic Other aftercare (1 source) superintendent terminal (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 of aspirin; Translations: [GROUP HOME CURRENT USE OF ASPIRIN] Onset: 3 Episodic Other aftercare (1 source) 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; Translations: [OTH REGULATORY AFFAIRS ANALYST CURRENT DRUG THERAPY] Onset: 3 Episodic Other aftercare (1 source) [facility] (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 of oral hypoglycemic drugs; Translations: [GROUP HOME USE ORAL HYPOGLYCEMIC DX] Onset: 3 Episodic Other aftercare (2 sources) Patient encounter status; Translations: [Encounter for follow-up examination after completed treatment for conditions other than malignant neoplasm] 04-08-2024 Episodic Other connective tissue disease (5 sources) Muscle weakness (generalized); Translations: [MUSCLE WEAKNESS GENERALIZED] Onset: 3 Episodic Other connective tissue disease (2 sources) Pain in lower limb; Translations: [Pain in left leg] 07-02-2024 Episodic Other connective tissue disease (2 sources) Swelling of left lower limb; Translations: [Other specified soft tissue disorders] 07-02-2024 Episodic Other diseases of bladder and urethra (20 sources) Overactive bladder; Translations: [Overactive bladder] Onset: 3 10-25-2022 Chronic Other diseases of kidney and ureters (3 sources) Other obstructive and reflux uropathy; Translations: [Other obstructive and reflux uropathy] Onset: 3 Episodic Other eye disorders (20 sources) Bilateral vitreous degeneration of eyes; Translations: [Vitreous degeneration, bilateral] Onset: 6 08-03-2022 Chronic Other lower respiratory disease (20 sources) Interstitial lung disease; Translations: [Interstitial pulmonary disease, unspecified] Onset: 3 08-03-2022 Chronic Other lower respiratory disease (4 sources) Other nonspecific abnormal finding of lung field; Translations: [OTH NONSPECIFIC ABN FIND LNG FIELD] Onset: 3 Episodic Other male genital disorders (1 source) Impotence 05-12-2019 Chronic Other male genital disorders (20 sources) Erectile dysfunction co-occurrent and due to arterial insufficiency; Translations: [Erectile dysfunction due to arterial insufficiency] Onset: 3 08-03-2022 Chronic Other nervous system disorders (1 source) Difficulty in walking, not elsewhere classified; Translations: [DIFFICULTY IN WALKING NEC] Onset: 3 Chronic Other nutritional; endocrine; and metabolic disorders (20 sources) Hypomagnesemia; Translations: [Hypomagnesemia] Onset: 4 03-07-2023 Chronic Other upper respiratory infections (3 sources) Acute upper respiratory infection; Translations: [Acute upper respiratory infection] Episodic Peripheral and visceral atherosclerosis (2 sources) Atherosclerosis of aorta; Translations: [Atherosclerosis of aorta] 11-12-2023 Chronic Phlebitis; thrombophlebitis and thromboembolism (2 sources) Acute deep venous thrombosis of left femoral vein; Translations: [Acute embolism and thrombosis of left femoral vein] Onset: 5 07-17-2024 Episodic Pneumonia (except that caused by tuberculosis or sexually transmitted disease) (1 source) Pneumonia (except that caused by tuberculosis or sexually transmitted disease); Translations: [PNEUMONIA D/T CORONAVIRUS DIS 2019] Onset: 3 Residual codes; unclassified (2 sources) Other specified postprocedural states; Translations: [Other specified postprocedural states] Onset: 3 Episodic Residual codes; unclassified (2 sources) Patient non-compliant - refused intervention / support ; Translations: [Noncompliance by declining service] 04-21-2024 Episodic Respiratory failure; insufficiency; arrest (adult) (20 sources) Acute and chronic respiratory failure with hypoxia; Translations: [Dependence on supplemental oxygen] Onset: 3 08-03-2022 Chronic Respiratory failure; insufficiency; arrest (adult) (3 sources) Acute respiratory failure with hypoxia; Translations: [Acute respiratory failure] Onset: 3 04-08-2024 Episodic Retinal detachments; defects; vascular occlusion; and retinopathy (20 sources) Retinal disorder; Translations: [Unspecified retinal disorder] Onset: 3 08-03-2022 Chronic Septicemia (except in labor) (4 sources) Sepsis, unspecified organism; Translations: [SEPSIS UNSPECIFIED ORGANISM] Onset: 3 Episodic Spondylosis; intervertebral disc disorders; other back problems (2 sources) Acute low back pain; Translations: [Acute right-sided low back pain without sciatica] 12-17-2023 Episodic Superficial injury; contusion (2 sources) Contusion of left foot; Translations: [Contusion of left foot, initial encounter] 06-30-2024 Episodic Thyroid disorders (20 sources) Hypothyroidism, unspecified; Translations: [Acquired hypothyroidism] Onset: 3 08-03-2022 Chronic Unclassified (1 source) ACIDOSIS UNSPECIFIED; Translations: [ACIDOSIS UNSPECIFIED] Onset: 3 Unclassified (1 source) PERSONAL HISTORY OF COVID-19; Translations: [PERSONAL HISTORY OF COVID-19] Onset: 3 Unclassified (1 source) Abdominal aortic aneurysm, without rupture, unspecified; Translations: [Abdominal aortic aneurysm, without rupture, unspecified] Onset: 3 Viral infection (4 sources) COVID-19; Translations: [COVID-19] Onset: 3 Past or Other Problems Problem Classification Problem Date Documented Date Episodic/Chronic Biliary tract disease (20 sources) Biliary calculus; Translations: [Calculus of gallbladder without cholecystitis without obstruction] Onset: 08-03-2022 08-03-2022 Episodic Genitourinary symptoms and ill-defined conditions (20 sources) Dysuria; Translations: [Dysuria] Onset: 03-01-2022 Episodic Heart valve disorders (20 sources) Systolic murmur; Translations: [Cardiac murmur, unspecified] Onset: 08-03-2022 08-03-2022 Episodic Inflammation; infection of eye (except that caused by tuberculosis or sexually transmitteddisease) (20 sources) Blepharitis; Translations: [Squamous blepharitis unspecified eye, unspecified eyelid] Onset: 08-03-2022 08-03-2022 Episodic Nutritional deficiencies (20 sources) Moderate protein energy malnutrition; Translations: [Moderate protein-calorie malnutrition] Onset: 08-03-2022 Resolved: 09-25-2022 09-25-2022 Chronic Other aftercare (20 sources) Polypharmacy ; Translations: [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] Onset: 08-10-2019 09-25-2022 Episodic Other aftercare (20 sources) Long-term current use of inhaled steroid; Translations: [MCFP (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 of inhaled steroids] Onset: 09-12-2023 09-12-2023 Episodic Other connective tissue disease (20 sources) Muscle weakness; Translations: [Muscle weakness (generalized)] Onset: 04-08-2022 Resolved: 09-25-2022 3 Episodic Other diseases of veins and lymphatics (20 sources) Vascular insufficiency; Translations: [Venous insufficiency (chronic) [...] Episodic Other nutritional; endocrine; and metabolic disorders (20 sources) Hyperuricemia; Translations: [Hyperuricemia without signs of inflammatory arthritis and tophaceous disease] Onset: 08-03-2022 08-03-2022 Episodic Other nutritional; endocrine; and metabolic disorders (20 sources) Overweight; Translations: [Overweight] Onset: 08-03-2022 08-03-2022 Episodic Other screening for suspected conditions (not mental disorders or infectious disease) (4 sources) Encounter for screening for malignant neoplasm of prostate; Translations: [ENC SCREEN MALIG NEOPLASM PROSTATE] Onset: 03-02-2022 Episodic Other upper respiratory disease (20 sources) Bowing of vocal cord; Translations: [Other diseases of vocal cords] Onset: 08-19-2015 09-25-2022 Episodic Pleurisy; pneumothorax; pulmonary collapse (20 sources) Discoid atelectasis; Translations: [Atelectasis] Onset: 08-03-2022 08-03-2022 Episodic Pneumonia (except that caused by tuberculosis or sexually transmitted disease) (17 sources) Pneumonia, unspecified organism; Translations: [Pneumonia] Onset: 05-03-2022 04-07-2024 Episodic Screening and history of mental health and substance abuse codes (20 sources) Personal history of nicotine dependence; Translations: [Ex-smoker] Onset: 03-12-2015 09-25-2022 Episodic Unclassified (1 source) Abdominal aortic aneurysm (AAA) without rupture, unspecified part I71.40 Unclassified (20 sources) Onset: 06-25-2023 06-25-2023 Varicose veins of lower extremity (20 sources) Varicose veins of bilateral lower limbs; Translations: [Asymptomatic varicose veins of bilateral lower extremities] Onset: 08-03-2022 08-03-2022 Episodic Results Test Name Value Interpretation Reference Range Facility US.doppler Lower extremity v bhavya - norm 07-02-2024 Interpretation and review of laboratory results Abnormal [facility] XR CHEST 2Von 03-24-[address] [address] XRay Report Signed Patient: CHEMA CHILDS MR#: [id number] : 1940 Acct:[id number] Age/Sex: 83 / M ADM Date: 03/24/24 Loc: RAD Attending Dr: Zoila Javed D.O. Ordering Physician: Zoila Javed D.O. Date of Service: 03/24/24 Procedure(s): XR chest 2V Accession Number(s): [id number] cc: CLAYTON MCFADDEN ; Zoila Javed D.O. [address] [id number] Patient Name: CHEMA CHILDS MRN: [id number] date: 1940 Sex: M Assigned Patient Location: [facility] Current Patient Location: [facility] Accession/Order Number: [id number] Exam Date: 03/24/2024 13:35 Report Date: 03/24/2024 14:08 At the request of: ZOILA JAVED Procedure: XR chest 2V EXAM: XR chest 2V HISTORY: Chronic Obstructive Pulmonary Disease COMPARISON: 10/16/2023 TECHNIQUE: Upright PA and lateral chest x-ray FINDINGS: A small amount of atelectasis or scarring is seen at the lung bases and slight prominence of the interstitial markings are seen throughout the lungs. There is flattening of the hemidiaphragms indicating COPD. No acute infiltrate, effusion or pneumothorax is identified. The heart is not enlarged and the vasculature is not distended. Degenerative changes are seen in the spine and at the shoulders. XR/XR chest 2V IMPRESSION: No apparent acute infiltrate or evidence of cardiac decompensation. Some chronic changes are noted. The overall appearance of the chest has not changed significantly. Electronically authenticated by: GEORGIA SMITH Date: 03/24/2024 14:08 Dictated By: Georgia Smith M.D. Signed By: 03/24/24 1410 DD/ 1408 TD/TT: Gas Regulator Repairer: [facility] Radiology, Radiologist, - 03/24/2024 [place] [address] XRay Report Signed Patient: CHEMA CHILDS MR#: [id number] : 1940 Acct:[id number] Age/Sex: 83 / M ADM Date: 03/24/24 Loc: RAD Attending Dr: Zoila Javed D.O. Ordering Physician: Zoila Javed D.O. Date of Service: 03/24/24 Procedure(s): XR chest 2V Accession Number(s): [id number] cc: CLAYTON MCFADDEN ; Zoila Javed D.O. [place] [address] Patient Name: CHEMA CHILDS MRN: [facility]:[id number] date: 1940 Sex: M Assigned Patient Location: [facility] Current Patient Location: [facility] Accession/Order Number: [id number] Exam Date: 03/24/2024 13:35 Report Date: 03/24/2024 14:08 At the request of: ZOILA JAVED Procedure: XR chest 2V EXAM: XR chest 2V HISTORY: Chronic Obstructive Pulmonary Disease COMPARISON: 10/16/2023 TECHNIQUE: Upright PA and lateral chest x-ray FINDINGS: A small amount of atelectasis or scarring is seen at the lung bases and slight prominence of the interstitial markings are seen throughout the lungs. There is flattening of the hemidiaphragms indicating COPD. No acute infiltrate, effusion or pneumothorax is identified. The heart is not enlarged and the vasculature is not distended. Degenerative changes are seen in the spine and at the shoulders. XR/XR chest 2V IMPRESSION: No apparent acute infiltrate or evidence of cardiac decompensation. Some chronic changes are noted. The overall appearance of the chest has not changed significantly. Electronically authenticated by: GEORGIA SMITH Date: 03/24/2024 14:08 Dictated By: Georgia Smith M.D. Signed By: 03/24/24 1410 DD/ 1408 TD/TT: Gas Regulator Repairer: [facility] Radiology Study observation (narrative) [facility] XR CHEST 2VOrdered By: Radio logist Radiology on 03-24-2024 [facility] Work Phone: Urinalysis macro (dipstick) panel (U)on 12-17-2023 Bilirubin, UA Negative Negative - 4(70) +++ mg/dL [facility] Blood, UA Negative Negative - 50 Silver/mcL [facility] Clarity, UA Clear [facility] Color, UA Light Yellow [facility] Glucose, UA Negative Negative - 2000(110) ++++ mg/dL [facility] Interpretation and review of laboratory results Normal [facility] Ketones, UA Negative Negative - 160(16) ++++ mg/dL [facility] Leukocytes, UA Negative Negative - 500+++ Ava/mcL [facility] Nitrite, UA Negative Negative - Positive [facility] pH, UA 6 5 - 9 [facility] Protein, UA Negative Negative - 2000(20) ++++ mg/dL [facility] Spec Grav, UA 1.005 1 - 1.03 [facility] Urobilinogen, UA 0.2 0.2 - 12 mg/dL [facility]LR HEMOGLOBIN A1Con 024 Glucose [Mass/Vol] 117 mg/dL [facility] HbA1c (Bld) [Mass fraction] 5.7 % 4.5 - 6.2 % [facility] Comment on above: ADA RECOMMENDED LIMI T 4.0 - 6.0 ADA THERAPEUTIC TARGET < 7.0 ACTION SUGGESTED > 7.0 CLINIS[facility]NC [facility] US aortaon 01-31-2023 US aorta [facility] [place] [address] Ultrasound Report Signed Patient: Chema Childs SR MR#: [id number] : 1940 Acct:[id number] Age/Sex: 82 / M ADM Date: 01/31/23 Loc: [facility] Room: Type: [facility] Attending Dr: 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 LABORATORY ASSISTANT-C Ordering Provider: 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 APRN Date of [...] Horace Jasso MD01/31/2023 11:09 AM Dictation Location: [place] [address] Tech: Gabriela Hoyt Transcribed By: GOYO 01/31/23 110 Dictated By: Horace Jasso MD 01/31/23 110 Signed By: 01/31/23 110 [facility] Cult,Urineon 12-02-2022 Cult,Urine Specimen Description .CLEAN CATCH URINE Culture NO GROWTH Report Status FINAL 12/02/[address] [facility] Comment on above: Performed By: #### U #### [facility] [employer] [address] [place] [address] Weld Fitter: Sandip Smith MD [address] [place] [address] Weld Fitter: Ulisses Gaines MD OPERATIVE REPORTon 3 OPERATIVE REPORT [address] [address] OPERATIVE REPORT PATIENT NAME: CHEMA CHILDS : 1940 MED REC NO: [id number] ROOM: ACCOUNT NO: [id number] ADMIT DATE: 10/03/2022 PROVIDER: Erica Veras DATE OF PROCEDURE: 10/03/2022 SURGEON: Dr. Erica Veras. HEALTH INFORMATION CODER: None. PREOPERATIVE DIAGNOSES: 1. BPH with lower urinary tract symptoms. 2. Urinary frequency. 3. Urinary urgency. 4. Urinary weak stream. POSTOPERATIVE DIAGNOSES: 1. BPH with lower urinary tract symptoms. 2. Urinary frequency. 3. Urinary urgency. 4. Urinary weak stream. PROCEDURES PERFORMED: Photoselective vaporization of the prostate with GreenLight laser XPS. ANESTHESIA: General. COMPLICATIONS: None. ESTIMATED BLOOD LOSS: Minimal. SPECIMENS: None. PROSTHESIS: A 22-Gambian Gould catheter. DISPOSITION: Stable. FINDINGS: Trilobar hyperplasia of the prostate. INDICATIONS: This patient is an 82-year-old male with extensive lower urinary tract symptoms, here now for definitive therapy in the form of PVP GreenLight DESCRIPTION OF PROCEDURE: The patient was taken back to the operating room after informed consent including all risks, benefits, and alternatives were obtained. The patient was transferred from the [facility] onto the operating room table, where he was induced under general anesthesia, and given IV Ancef for preoperative antibiotic prophylaxis. To begin the case, he was prepped and draped in the normal sterile fashion, and placed in the dorsal lithotomy. He had a 24-Gambian sheath with a 30-degree lens passed through [...] then removed the scope and inserted a 22-Gambian three-way Gould catheter and hand irrigated to clear. He was then awoken from general anesthesia, transferred to the [facility], and taken to the PACU in satisfactory condition by Nursing and Anesthesia Teams. PLAN: The patient will be discharged home per PACU criterion and follow up with us in [id number] days for Gould catheter removal. ERICA VERAS [email or web address] Doc#: [id number] CC: [facility] Cult,Urineon 08-29-2022 Cult,Urine Specimen Description .CLEAN CATCH URINE Culture NO GROWTH Report Status FINAL 08/29/[address] [facility] Comment on above: Performed By: #### U RC #### [facility] [address] [facility] [place], [place] [id number] Weld Fitter: Sandip Smith MD [facility] [address] [place] [address] Dr. [place], [place] [id number] Weld Fitter: Ulisses Gaines MD Urinalysis w/ Microon 2022 Bacteria 1+ Abnormal NONE [facility] Comment on above: Performed By: #### U AMIC #### [facility] [address] [place] [address] Dr. [place], [place] [phone] Weld Fitter: Ulisses Gaines MD Bilirubin, SemiQt,Ur Negative Normal NEG [facility] Comment on above: Performed By: #### U AMIC #### [address] [place], [place] [id number] Weld Fitter: Ulisses Gaines MD Blood, Urine Negative Normal NEG [facility] Comment on above: Performed By: #### U AMIC #### [facility] [address] [place] [address] Dr. [place], [place] [phone] Weld Fitter: Ulisses Gaines MD Clarity (U) Clear Normal CLEAR [facility] Comment on above: Performed By: #### U AMIC #### [facility] [address] [place] [address] Dr. [place], [place] 532[address] Weld Fitter: Ulisses Gaines MD Color (U) Yellow Normal YEL [facility] Comment on above: Performed By: #### U AMIC #### [facility] [address] [place] [address] Dr. [place], [place] [phone] Weld Fitter: Ulisses Gaines MD Epithelial cells LM Ql (Urine sed) 0 TO 2 Normal 0-5 [facility] Comment on above: Performed By: #### U AMIC #### [facility] [address] [place] [address] Dr. [place], [place] [phone] Weld Fitter: Ulisses Gaines MD Glucose Ql (U) Negative Normal NEG [facility] Comment on above: Performed By: #### U AMIC #### [facility] [address] [place], [place] [phone] Weld Fitter: Ulisses Gaines MD Ketones Ql (U) Negative Normal NEG [facility] Comment on above: Performed By: #### U AMIC #### [facility] [address] [place] [address] Weld Fitter: Ulisses Gaines MD Leukocyte esterase Test strip Ql (U) Negative Normal NEG [facility] Comment on above: Performed By: #### U AMIC #### [facility] [address] [place] [address] [place] [phone] Weld Fitter: Ulisses Gaines MD Nitrite,Ur Negative Normal NEG [facility] Comment on above: Performed By: #### U AMIC #### [facility] [address] [place] [address] Dr. [place], [facility]83 Weld Fitter: Ulisess Gaines MD PH,Ur 6.0 Normal 5.0-9.0 [facility] Comment on above: Performed By: #### U AMIC #### [facility] [address] [place] [address] [place] [id number] Weld Fitter: Ulisses Gaines MD Protein Ql (U) Negative Normal NEG [facility] [place] [facility] Comment on above: Performed By: #### U AMIC #### [facility] [address] [place] [address] Dr. [place], [facility]83 Weld Fitter: Ulisses Gaines MD Spec. [place],Ur 1.015 Normal 1.010-1.020 [facility] Comment on above: Performed By: #### U AMIC #### [facility] [address] [place] [address] Dr. [place], [place] [phone] Weld Fitter: Ulisses Gaines MD Urine RBC's None Normal 0-2 [facility] Comment on above: Performed By: #### U AMIC #### [facility] [address] [place] [address] Weld Fitter: Ulisses Gaines MD Urine WBC's 0 TO 2 Normal 0-5 [facility] Comment on above: Performed By: #### U AMIC #### [facility] [address] [place] [address] Weld Fitter: Ulisses Gaines MD Urobilinogen,Ur Normal Normal NORM [facility] Comment on above: Performed By: #### U AMIC #### [facility] [address] [place] [address] Weld Fitter: Ulisses Gaines MD Cult,Urineon 08-10-2022 Cult,Urine Specimen Description .CLEAN CATCH URINE Culture NO GROWTH Report Status FINAL 08/10/2022 Normal [facility] Comment on above: Performed By: #### U RC #### [facility] [address] [place], [place] [phone] Weld Fitter: Sandip Smith MD [facility] [address] [place] [address] Weld Fitter: Ulisses Gaines MD HEMOGLOBINon 07-03-2022 Hemoglobin (Bld) [Mass/Vol] 13.6 g/dL Critically low 14.0-18.0 [facility] Comment on above: Performed By: #### P OCGLUC #### [facility] [address] [place], [place] [address] CHEST WO CONon [...] by: PAULINA BOWLES Date: 2022-06-26 16:34 Normal [facility] PULMONARY FUNCTION TESTon PULMONARY FUNCTION [...] supplemental oxygen. Clinical correlation is required. Normal [facility] Cult,Urineon 06-15-2022 Cult,Urine Specimen Description .CLEAN CATCH URINE Culture NO GROWTH Report Status FINAL 06/15/2022 Normal [facility] Comment on above: Performed By: #### U #### [address] [address] Weld Fitter: Sandip Smith MD [facility] [address] [place] [id number] Weld Fitter: Ulisses Gaines MD CBC AUTO DIFFon 04-19-2022 BASO # 0.0 103/ul Normal 0.0-0.1 [facility] Comment on above: Performed By: #### L ACT #### [facility] [address] [place] [address] Dr. Kerrie Stark Basophils/100 WBC (Bld) 0.2 % Normal 0.2-2.0 [facility] Comment on above: Performed By: #### L ACT #### [facility] [address] [place] [address] Dr. Kerrie Stark EO # 0.0 103/ul Normal 0.0-0.7 [facility] Comment on above: Performed By: #### L ACT #### [facility] [address] [place] [address] Dr. Kerrie Stark Eosinophils/100 WBC (Bld) 0.2 % Critically low 0.9-7.0 [facility] Comment on above: Performed By: #### L ACT #### [facility] [address] [place] [address] Dr. Kerrie Stark Erythrocyte distribution width (RBC) [Ratio] 13.3 % Normal 11.0-15.0 [facility] Comment on above: Performed By: #### L ACT #### [facility] [address] [place] [address] Dr. Kerrie Stark Hematocrit (Bld) [Volume fraction] 38.8 % Critically low 42.0-54.0 [facility] Comment on above: Performed By: #### L ACT #### [facility] [address] [place] [address] Dr. Kerrie Stark Hemoglobin (Bld) [Mass/Vol] 13.1 g/dL Critically low 14.0-18.0 [facility] Comment on above: Performed By: #### L ACT #### [facility] [address] [place] [address] Dr. Kerrie Stark IG # 0.35 10e3/ul Critically high 0.00-0.03 [facility] Comment on above: Performed By: #### L ACT #### [facility] [address] [place] [address] [address] Kerrie Stark IG % 2.6 % Critically high 0.0-0.5 [facility] Comment on above: Performed By: #### L ACT #### [facility] [address] [place] [address] Dr. Kerrie Stark LYMPH # 1.3 103/ul Normal 1.2-3.8 [facility] Comment on above: Performed By: #### L ACT #### [facility] [address] [place] [address] Dr. Kerrie Stark Lymphocytes/100 WBC (Bld) 9.7 % Critically low 20.5-60.0 [facility] Comment on above: Performed By: #### L ACT #### [facility] [address] [place] [address] Dr. Kerrie Stark MANUAL DIFF REQ NO Normal [facility] Comment on above: Performed By: #### L ACT #### [facility] [address] [place] [address] Dr. Kerrie Stark MCH (RBC) [Entitic mass] 32.8 pg Normal 25.9-34.0 [facility] Comment on above: Performed By: #### L ACT #### [facility] [address] [place] [address] Dr. Kerrie Stark MCHC (RBC) [Mass/Vol] 33.8 g/dL Normal 29.9-35.2 [facility] Comment on above: Performed By: #### L ACT #### [facility] [address] [place] [address] Dr. Kerrie Stark MCV (RBC) [Entitic vol] 97.2 fL Critically high 80.0-94.0 [facility] Comment on above: Performed By: #### L ACT #### [facility] [address] [place] [address] Dr. Kerrie Stark MONO # 0.8 103/ul Normal 0.3-0.8 [facility] Comment on above: Performed By: #### L ACT #### [facility] [address] [place] [address] [address] Kerrie Stark Monocytes/100 WBC (Bld) 5.9 % Normal 1.7-12.0 [facility] Comment on above: Performed By: #### L ACT #### [facility] [address] [place] [address] [address] Kerrie Stark NEUT # 10.8 103/ul Critically high 1.4-6.5 [facility] Comment on above: Performed By: #### L ACT #### [facility] [address] [place] [address] [address] Kerrie Stark Neutrophils/100 WBC (Bld) 81.4 % Critically high 43.0-75.0 [facility] Comment on above: Performed By: #### L ACT #### [facility] [address] [place] [address] Dr. Kerrie Stark Platelet mean volume (Bld) [Entitic vol] 10.4 fL Normal 9.5-13.5 [facility] Comment on above: Performed By: #### L ACT #### [facility] [address] [place] [address] [address] Kerrie Stark PLT 158 103/ul Normal 150-450 [facility] Comment on above: Performed By: #### L ACT #### [facility] [address] [address] [address] Kerrie Stark RBC 3.99 106/ul Critically low 4.70-6.10 [facility] Comment on above: Performed By: #### L ACT #### [facility] [address] [address] [address] Kerrie Stark WBC 13.2 103/ul Critically high 4.0-11.0 [facility] Comment on above: Performed By: #### L ACT #### [facility] [address] [address] [address] Kerrie Stark GLYCOHEMOGLOBIN A1Con 2022 ADA RECOMMENDATION SEE BELOW Normal [facility] Comment on above: Result Comment: ADA RECOMMENDED LIMIT 4.0 - 6.0 ADA THERAPEUTIC TARGET < 7.0 ACTION SUGGESTED > 7.0 Performed By: #### P OCGLUC #### [facility] [address] [address] [address] Kerrie Stark Glucose [Mass/Vol] 206 mg/dL Normal [facility] Comment on above: Performed By: #### P OCGLUC #### [facility] [address] [address] [address] Kerrie Stark HbA1c (Bld) [Mass fraction] 8.8 % Critically high 4.5-6.2 [facility] Comment on above: Performed By: #### P OCGLUC #### [facility] [address] [address] [address] Kerrie Stark LIPID PROFILEon 04-19-2022 CHOL-HDL RATIO NORM SEE BELOW Normal [facility] Comment on above: Result Comment: 3.3 - 4.4 LOW RISK 4.4 - 7.1 AVERAGE RISK 7.1 - 11.0 MODERATE RISK >11.0 HIGH RISK Performed By: #### D DIM #### [facility] [address] [place] [address] Dr. Kerrie Stark Cholesterol [Mass/Vol] 134 mg/dL Normal <=200 [facility] Comment on above: Performed By: #### D DIM #### [facility] [address] [place] [address] Dr. Kerrie Stark Cholesterol in HDL [Mass/Vol] 46 mg/dL Normal 40-60 [facility] Comment on above: Performed By: #### D DIM #### [facility] [address] [address] [address] Kerrie Stark Cholesterol in LDL [Mass/Vol] 65.8 mg/dL Normal [facility] Comment on above: Performed By: #### D DIM #### [facility] [address] [place] [address] Dr. Kerrie Stark Cholesterol.total/Chol esterol in HDL [Mass ratio] 2.9 {ratio} Normal [facility] Comment on above: Performed By: #### D DIM #### [facility] [address] [place] [address] Dr. Kerrie Stark HDL NORMAL > or = 60 mg/dl - LOW CARDIOVASCULAR RISK <40 mg/dl - HIGH CARDIOVASCULAR RISK Normal [facility] Comment on above: Performed By: #### D DIM #### [facility] [address] [address] [address] Kerrie Stark LDL CALC NORMAL SEE BELOW Normal [facility] Comment on above: Result Comment: <100 mg/dl OPTIMAL 100 - 129 mg/dl NEAR OR ABOVE OPTIMAL 130 - 159 mg/dl BORDERLINE HIGH 160 - 189 mg/dl HIGH >190 mg/dl VERY HIGH Performed By: #### D DIM #### [facility] [address] [address] [address] Kerrie Stark Triglyceride [Mass/Vol] 111 mg/dL Normal <=150 [facility] Comment on above: Performed By: #### D DIM #### [facility] [address] [place] [address] Dr. Kerrie Stark VLDL CALC 22.2 mg/dL Normal [facility] Comment on above: Performed By: #### D DIM #### [facility] [address] [place] [address] Dr. Kerrie Stark PROF 14(COMP METB)on 023 Albumin [Mass/Vol] 2.6 g/dL Critically low 3.4-5.0 Th [facility] Comment on above: Performed By: #### D DIM #### [facility] [address] [place] [address] Dr. Kerrie Stark Albumin/Globulin [Mass ratio] 0.8 {ratio} Normal [facility] Comment on above: Performed By: #### D DIM #### [facility] [address] [place] [address] Dr. Kerrie Stark ALP [Catalytic activity/Vol] 49 U/L Normal 46-116 [facility] Comment on above: Performed By: #### D DIM #### [facility] [address] [place] [address] Dr. Kerrie Stark ALT [Catalytic activity/Vol] 27 U/L Normal 16-63 [facility] Comment on above: Performed By: #### D DIM #### [facility] [address] [address] [address] Kerrie Stark Anion gap [Moles/Vol] 12.1 mmol/L Normal [facility] Comment on above: Performed By: #### D DIM #### [facility] [address] [address] [address] Kerrie Stark AST [Catalytic activity/Vol] 19 U/L Normal 15-37 [facility] Comment on above: Performed By: #### D DIM #### [facility] [address] [address] [address] Kerrie Strak Bilirubin [Mass/Vol] 0.6 mg/dL Normal 0.2-1.0 [facility] Comment on above: Performed By: #### D DIM #### [facility] [address] [address] [address] Kerrie Stark Calcium [Mass/Vol] 9.0 mg/dL Normal 8.5-10.1 [facility] Comment on above: Performed By: #### D DIM #### [facility] [address] [place] [address] Dr. Kerrie Stark Chloride [Moles/Vol] 102 mmol/L Normal 98-107 [facility] Comment on above: Performed By: #### D DIM #### [facility] [address] [address] [address] Kerrie Stark CO2 [Moles/Vol] 27.0 mmol/L Normal 21.0-32.0 [facility] Comment on above: Performed By: #### D DIM #### [facility] [address] [address] [address] Kerrie Stark Creatinine [Mass/Vol] 0.90 mg/dL Normal 0.70-1.30 [facility] Comment on above: Performed By: #### D DIM #### [facility] [address] [place] [address] Dr. Kerrie Stark EGFR-AF ANGOLAN >60 Normal >=60 [facility] Comment on above: Performed By: #### D DIM #### [facility] [address] [place] [address] Dr. Kerrie Stark EGFR-NON AF ANGOLAN >60 Normal >=60 [facility] Comment on above: Performed By: #### D DIM #### [facility] [address] [address] [address] Kerrie Stark Globulin (S) [Mass/Vol] 3.2 g/dL Normal [facility] Comment on above: Performed By: #### D DIM #### [facility] [address] [address] [address] Kerrie Stark Glucose [Mass/Vol] 104 mg/dL Normal 74-106 [facility] Comment on above: Performed By: #### D DIM #### [facility] [address] [address] [address] Kerrie Stark Potassium [Moles/Vol] 4.1 mmol/L Normal 3.5-5.1 [facility] Comment on above: Performed By: #### D DIM #### [facility] [address] [address] [address] Kerrie Stark Protein [Mass/Vol] 5.8 g/dL Critically low 6.4-8.2 Th [facility] Comment on above: Performed By: #### D DIM #### [facility] [address] [address] [address] Kerrie Stark Sodium [Moles/Vol] 137 mmol/L Normal 136-145 [facility] Comment on above: Performed By: #### D DIM #### [facility] [address] [address] [address] Kerrie Stark Urea nitrogen [Mass/Vol] 31.0 mg/dL Critically high 7.0-18.0 [facility] Comment on above: Performed By: #### D DIM #### [facility] [address] [address] [address] Kerrie Stark Urea nitrogen/Creatinine [Mass ratio] 34.4 mg/mg Normal [facility] Comment on above: Performed By: #### D DIM #### [facility] [address] [address] [address] Kerrie Stark TSHon 04-19-2022 TSH 0.699 uIU/mL Normal 0.358-3.740 [facility] Comment on above: Performed By: #### D DIM #### [facility] [address] [place] [address] Dr. Kerrie Stark VITAMIN D 25 OHon 04-19-2022 VIT D 25-OH 53.9 ng/mL Normal [facility] Comment on above: Performed By: #### D DIM #### [facility] [address] [place] [address] Dr. Kerrie Stark VIT D RANGES SEE BELOW Normal [facility] Comment on above: Result Comment: <20 ng/mL Vit D deficient 20 - <30 ng/mL Vit D insufficient 30 - 100 ng/mL Vit D sufficient >100 ng/mL Potential Toxicity Performed By: #### D DIM #### [facility] [address] [place] [address] Dr. Kerrie Stark CBC W MANUAL DIFFon 04-08-19 ATYPICAL LYMPH # Normal [facility] Comment on above: Performed By: #### L ACT #### [facility] [address] [place] [address] Dr. Kerrie Stark ATYPICAL LYMPH % Normal [facility] Comment on above: Performed By: #### L ACT #### [facility] [address] [place] [address] Dr. Kerrie Stark BAND # 0.0 103/ul Normal 0.0-0.3 [facility] Comment on above: Performed By: #### L ACT #### [facility] [address] [place] [address] Dr. Kerrie Stark BAND % 0 % Normal 0-5 [facility] Comment on above: Performed By: #### L ACT #### [facility] [address] [place] [address] Dr. Kerrie Stark BASOM # 0.00 103/ul Normal 0.00-0.10 [facility] Comment on above: Performed By: #### L ACT #### [facility] [address] [place] [address] Dr. Kerrie Stark BASOM % 0.0 % Critically low 0.2-2.0 [facility] Comment on above: Performed By: #### L ACT #### [facility] [address] [address] [address] Kerrie Stark BLAST # Normal [facility] Comment on above: Performed By: #### L ACT #### [facility] [address] [place] [address] Dr. Kerrie Stark BLAST % Normal [facility] Comment on above: Performed By: #### L ACT #### [facility] [address] [address] [address] Kerrie Stark CORRECTED WBC Normal 4.0-11.0 [facility] Comment on above: Performed By: #### L ACT #### [facility] [address] [place] [address] Dr. Kerrie Strak EOS # 0.00 103/ul Normal 0.00-0.70 [facility] Comment on above: Performed By: #### L ACT #### [facility] [address] [place] [address] Dr. Kerrie Stark EOS% 0.0 % Critically low 0.9-7.0 [facility] Comment on above: Performed By: #### L ACT #### [facility] [address] [place] [address] Dr. Kerrie Stark HCT 36.7 % Critically low 42.0-54.0 [facility] Comment on above: Performed By: #### L ACT #### [facility] [address] [place] [address] Dr. Kerrie Stark HGB 12.5 g/dl Critically low 14.0-18.0 [facility] Comment on above: Performed By: #### L ACT #### [facility] [address] [place] [address] Dr. Kerrie Stark LYMPHM # 0.22 103/ul Critically low 1.20-3.80 [facility] Comment on above: Performed By: #### L ACT #### [facility] [address] [place] [address] Dr. Kerrie Stark LYMPHM% 2.0 % Critically low 20.5-60.0 [facility] Comment on above: Performed By: #### L ACT #### [facility] [address] [address] [address] Kerrie Stark MCH 32.6 pg Normal 25.9-34.0 [facility] Comment on above: Performed By: #### L ACT #### [facility] [address] [address] [address] Kerrie Stark MCHC 34.1 g/dl Normal 29.9-35.2 [facility] Comment on above: Performed By: #### L ACT #### [facility] [address] [address] [address] Kerrie Stark MCV 95.8 fL Critically high 80.0-94.0 [facility] Comment on above: Performed By: #### L ACT #### [facility] [address] [place] [address] Dr. Kerrie Stark METAMYELOCYTE # Normal [facility] Comment on above: Performed By: #### L ACT #### [facility] [address] [place] [address] Dr. Kerrie Stark METAMYELOCYTE % Normal [facility] Comment on above: Performed By: #### L ACT #### [facility] [address] [place] [address] Dr. Kerrie Stark MONOM# 0.34 103/ul Normal 0.30-0.80 [facility] Comment on above: Performed By: #### L ACT #### [facility] [address] [place] [address] Dr. Kerrie Stark MONOM% 3.0 % Normal 1.7-12.0 [facility] Comment on above: Performed By: #### L ACT #### [facility] [address] [place] [address] Dr. Kerrie Stark MPV 10.9 fL Normal 9.5-13.5 [facility] Comment on above: Performed By: #### L ACT #### [facility] [address] [place] [address] Dr. Kerrie Stark MYELOCYTE # 0.1 103/ul Normal [facility] Comment on above: Performed By: #### L ACT #### [facility] [address] [address] [address] Kerrie Stark MYELOCYTE % 1 % Normal [facility] Comment on above: Performed By: #### L ACT #### [facility] [address] [address] [address] Kerrie Stark NRBC Normal [facility] Comment on above: Performed By: #### L ACT #### [facility] [address] [address] [address] Kerrie Stark PLT 140 103/ul Critically low 150-450 [facility] Comment on above: Performed By: #### L ACT #### [facility] [address] [address] [address] Kerrie Stark RBC 3.83 106/ul Critically low 4.70-6.10 [facility] Comment on above: Performed By: #### L ACT #### [facility] [address] [place] [address] Dr. Kerrie Stark RDW 12.9 % Normal 11.0-15.0 [facility] Comment on above: Performed By: #### L ACT #### [facility] [address] [place] [address] Dr. Kerrie Stark SEG # 10.53 103/ul Critically high 1.40-6.50 [facility] Comment on above: Performed By: #### L ACT #### [facility] [address] [place] [address] Dr. Kerrie Stark SEG % 94.0 % Critically high 43.0-75.0 [facility] Comment on above: Performed By: #### L ACT #### [facility] [address] [address] [address] Kerrie Stark WBC 11.2 103/ul Critically high 4.0-11.0 [facility] Comment on above: Performed By: #### L ACT #### [facility] [address] [place] [address] Dr. Kerrie Stark Covid-19 PCR ([facility])on 03-22 SARS-CoV-2 (COVID-19) RNA QUE+probe Ql (Unsp spec) Detected Abnormal NOT DETECTED [facility] Comment on above: Result Comment: This test is not yet approved or cleared by the [place] FDA. When there are no FDA-approved or cleared tests available, and other criteria are met, FDA can make tests available under an emergency access mechanism called an Emergency Use Authorization (EUA). The EUA for this test is supported by the [place] of Health and Human Service's declaration that [...] used). Performed By: #### L ACT #### [facility] [address] [place] [address] Dr. Kerrie Stark LACTATE/LACTIC ACIDon 2022 Lactate [Moles/Vol] 1.3 mmol/L Normal 0.4-1.9 [facility] Comment on above: Performed By: #### L ACT #### [facility] [address] [place] [address] Dr. Kerrie Stark POINT OF CARE GLUCOSEon 03-22 Glucose [Mass/Vol] 344 mg/dL Critically high -106 [facility] Comment on above: Performed By: #### L ACT #### [facility] [address] [place] [address] Dr. Kerrie Stark Glucose [Mass/Vol] 242 mg/dL Critically high -106 [facility] Comment on above: Performed By: #### P OCGLUC #### [facility] [address] [place] [address] Dr. Kerrie Stark PROCALCITONINon 04-08-2022 Procalcitonin 0.06 ng/mL Normal 0.00-0.08 [facility] Comment on above: Result Comment: . [...] obtained. Performed By: #### D DIM #### [facility] [address] [place] [address] Dr. Kerrie Stark PROF 14(COMP METB)on 023 Albumin [Mass/Vol] 2.0 g/dL Critically low 3.4-5.[address] [facility] Comment on above: Performed By: #### P OCGLUC #### [facility] [address] [place] [address] Dr. Kerrie Stark Albumin/Globulin [Mass ratio] 0.5 {ratio} Normal [facility] Comment on above: Performed By: #### P OCGLUC #### [facility] [address] [place] [address] Dr. Kerrie Stark ALP [Catalytic activity/Vol] 61 U/L Normal 46-116 [facility] Comment on above: Performed By: #### P OCGLUC #### [facility] [address] [place] [address] Dr. Kerrie Stark ALT [Catalytic activity/Vol] 33 U/L Normal 16-63 [facility] Comment on above: Performed By: #### P OCGLUC #### [facility] [address] [place] [address] Dr. Kerrie Stark Anion gap [Moles/Vol] 13.2 mmol/L Normal [facility] Comment on above: Performed By: #### P OCGLUC #### [facility] [address] [place] [address] Dr. Kerrie Stark AST [Catalytic activity/Vol] 27 U/L Normal 15-37 [facility] Comment on above: Performed By: #### P OCGLUC #### [facility] [address] [address] [address] Kerrie Stark Bilirubin [Mass/Vol] 0.3 mg/dL Normal 0.2-1.0 [facility] Comment on above: Performed By: #### P OCGLUC #### [facility] [address] [address] [address] Kerrie Stark Calcium [Mass/Vol] 8.7 mg/dL Normal 8.5-10.1 [facility] Comment on above: Performed By: #### P OCGLUC #### [facility] [address] [place] [address] Dr. Kerrie Stark Chloride [Moles/Vol] 102 mmol/L Normal 98-107 [facility] Comment on above: Performed By: #### P OCGLUC #### [facility] [address] [address] [address] Kerrie Stark CO2 [Moles/Vol] 22.0 mmol/L Normal 21.0-32.0 [facility] Comment on above: Performed By: #### P OCGLUC #### [facility] [address] [place] [address] Dr. Kerrie Stark Creatinine [Mass/Vol] 0.88 mg/dL Normal 0.70-1.30 [facility] Comment on above: Performed By: #### P OCGLUC #### [facility] [address] [place] [address] Dr. Kerrie Stark EGFR-AF ANGOLAN >60 Normal >=60 [facility] Comment on above: Performed By: #### P OCGLUC #### [facility] [address] [place] [address] Dr. Kerrie Stark EGFR-NON AF ANGOLAN >60 Normal >=60 [facility] Comment on above: Performed By: #### P OCGLUC #### [facility] [address] [place] [address] Dr. Kerrie Stark Globulin (S) [Mass/Vol] 3.7 g/dL Normal [facility] Comment on above: Performed By: #### P OCGLUC #### [facility] [address] [address] [address] Kerrie Stark Glucose [Mass/Vol] 266 mg/dL Critically high 74-106 [facility] Comment on above: Performed By: #### P OCGLUC #### [facility] [address] [address] [address] Kerrie Stark Potassium [Moles/Vol] 4.2 mmol/L Normal 3.5-5.1 [facility] Comment on above: Performed By: #### P OCGLUC #### [facility] [address] [address] [address] Kerrie Stark Protein [Mass/Vol] 5.7 g/dL Critically low 6.4-8.2 Th [facility] Comment on above: Performed By: #### P OCGLUC #### [facility] [address] [address] [address] Kerrie Stark Sodium [Moles/Vol] 133 mmol/L Critically low 136-145 Th [facility] Comment on above: Performed By: #### P OCGLUC #### [facility] [address] [place] [address] Dr. Kerrie Stark Urea nitrogen [Mass/Vol] 21.0 mg/dL Critically high 7.0-18.0 [facility] Comment on above: Performed By: #### P OCGLUC #### [facility] [address] [address] [address] Kerrie Stark Urea nitrogen/Creatinine [Mass ratio] 23.9 mg/mg Normal [facility] Comment on above: Performed By: #### P OCGLUC #### [facility] [address] [address] [address] Kerrie Stark CBC W MANUAL DIFFon 04-07-19 23 ATYPICAL LYMPH # 0.14 103/ul Normal [facility] Comment on above: Performed By: #### L ACT #### [facility] [address] [address] [address] Kerrie Stark ATYPICAL LYMPH % 1 % Normal [facility] Comment on above: Performed By: #### L ACT #### [facility] [address] [address] [address] Kerrie Stark BAND # 0.0 103/ul Normal 0.0-0.3 [facility] Comment on above: Performed By: #### L ACT #### [facility] [address] [place] [address] Dr. Kerrie Stark BAND % 0 % Normal 0-5 [facility] Comment on above: Performed By: #### L ACT #### [facility] Laboratory [address] [place] [address] Dr. Kerrie Stark BASOM # 0.00 103/ul Normal 0.00-0.10 [facility] Comment on above: Performed By: #### L ACT #### [facility] Laboratory [address] [place] [address] Dr. Kerrie Stark BASOM % 0.0 % Critically low 0.2-2.0 [facility] Comment on above: Performed By: #### L ACT #### [facility] Laboratory [address] [place] [address] Dr. Kerrie Stark BLAST # Normal [facility] Comment on above: Performed By: #### L ACT #### [facility] Laboratory [address] [place] [address] Dr. Kerrie Stark BLAST % Normal [facility] Comment on above: Performed By: #### L ACT #### [facility] Laboratory [address] [place] [address] Dr. Kerrie Stark CORRECTED WBC Normal 4.0-11.0 [facility] Comment on above: Performed By: #### L ACT #### [facility] Laboratory [address] [place] [address] Dr. Kerrie Stark EOS # 0.00 103/ul Normal 0.00-0.70 [facility] Comment on above: Performed By: #### L ACT #### [facility] Laboratory [address] [place] [address] Dr. Kerrie Stark EOS% 0.0 % Critically low 0.9-7.0 [facility] Comment on above: Performed By: #### L ACT #### [facility] Laboratory [address] [address] [address] Kerrie Stark HCT 35.9 % Critically low 42.0-54.0 [facility] Comment on above: Performed By: #### L ACT #### [facility] Laboratory [address] [address] [address] Kerrie Stark HGB 12.0 g/dl Critically low 14.0-18.0 [facility] Comment on above: Performed By: #### L ACT #### [facility] Laboratory [address] [address] [address] Kerrie Stark LYMPHM # 0.28 103/ul Critically low 1.20-3.80 [facility] Comment on above: Performed By: #### L ACT #### [facility] Laboratory [address] [address] [address] Kerrie Stark LYMPHM% 2.0 % Critically low 20.5-60.0 [facility] Comment on above: Performed By: #### L ACT #### [facility] Laboratory [address] [address] [address] Kerrie Stark MCH 32.6 pg Normal 25.9-34.0 [facility] Comment on above: Performed By: #### L ACT #### [facility] Laboratory [address] [address] [address] Kerrie Stark MCHC 33.4 g/dl Normal 29.9-35.2 [facility] Comment on above: Performed By: #### L ACT #### [facility] Laboratory [address] [address] [address] Kerrie Stark MCV 97.6 fL Critically high 80.0-94.0 [facility] Comment on above: Performed By: #### L ACT #### [facility] Laboratory [address] [address] [address] Kerrie Stark METAMYELOCYTE # Normal [facility] Comment on above: Performed By: #### L ACT #### [facility] Laboratory [address] [address] [address] Kerrie Stark METAMYELOCYTE % Normal [facility] Comment on above: Performed By: #### L ACT #### [facility] Laboratory [address] [address] [address] Kerrie Stark MONOM# 0.00 103/ul Critically low 0.30-0.80 [facility] Comment on above: Performed By: #### L ACT #### [facility] Laboratory [address] [address] [address] Kerrie Stark MONOM% 0.0 % Critically low 1.7-12.0 [facility] Comment on above: Performed By: #### L ACT #### [facility] Laboratory [address] [address] [address] Kerrie Stark MPV 10.6 fL Normal 9.5-13.5 [facility] Comment on above: Performed By: #### L ACT #### [facility] Laboratory [address] [place] [address] Dr. Kerrie Stark MYELOCYTE # Normal [facility] Comment on above: Performed By: #### L ACT #### [facility] Laboratory [address] [place] [address] Dr. Kerrie Stark MYELOCYTE % Normal [facility] Comment on above: Performed By: #### L ACT #### [facility] Laboratory [address] [place] [address] Dr. Kerrie Stark NRBC Normal [facility] Comment on above: Performed By: #### L ACT #### [facility] Laboratory [address] [place] [address] Dr. Kerrie Stark PLT 125 103/ul Critically low 150-450 [facility] Comment on above: Performed By: #### L ACT #### [facility] Laboratory [address] [address] [address] Kerrie Stark RBC 3.68 106/ul Critically low 4.70-6.10 [facility] Comment on above: Performed By: #### L ACT #### [facility] Laboratory [address] [place] [address] Dr. Kerrie Stark RDW 13.2 % Normal 11.0-15.0 [facility] Comment on above: Performed By: #### L ACT #### [facility] Laboratory [address] [address] [address] Kerrie Stark SEG # 13.77 103/ul Critically high 1.40-6.50 [facility] Comment on above: Performed By: #### L ACT #### [facility] Laboratory [address] [address] [address] Kerrie Stark SEG % 97.0 % Critically high 43.0-75.0 [facility] Comment on above: Performed By: #### L ACT #### [facility] Laboratory [address] [address] [address] Kerrie Stark TOXIC GRANULATION 2+ Normal [facility] Comment on above: Performed By: #### L ACT #### [facility] Laboratory [address] [place] [address] Dr. Kerrie Stark WBC 14.2 103/ul Critically high 4.0-11.0 [facility] Comment on above: Performed By: #### L ACT #### [facility] Laboratory [address] [place] [address] Dr. Kerrie Stark [facility] SARS-CoV-2 (COVID-19) RNA QUE+probe Ql (Unsp spec) Detected Abnormal NOT DETECTED The [facility] Comment on above: Result Comment: This test is not yet approved or cleared by the [place] FDA. When there are no FDA-approved or cleared tests available, and other criteria are met, FDA can make tests available under an emergency access mechanism called an Emergency Use Authorization (EUA). The EUA for this test is supported by the [place] of Health and Human Service's declaration that [...] used). Performed By: #### L ACT #### [facility] Laboratory [address] [place] [address] Dr. Kerrie Stark LACTATE/LACTIC ACIDon 2022 Lactate [Moles/Vol] 1.1 mmol/L Normal 0.4-1.9 [facility] Comment on above: Performed By: #### P OCGLUC #### [facility] Laboratory [address] [address] [address] Kerrie Stark POINT OF CARE GLUCOSEon 03-22 Glucose [Mass/Vol] 316 mg/dL Critically high -106 [facility] Comment on above: Performed By: #### P OCGLUC #### [facility] Laboratory [address] [address] [address] Kerrie Stark Glucose [Mass/Vol] 182 mg/dL Critically high [address] [place] [address] Comment on above: Performed By: #### P OCGLUC #### [facility] Laboratory [address] [address] [address] Kerrie Stark Glucose [Mass/Vol] 318 mg/dL Critically high [address] [place] [address] Comment on above: Performed By: #### P OCGLUC #### [facility] Laboratory [address] [address] [address] Kerrie Stark PROF 14(COMP METB)on 023 Albumin [Mass/Vol] 1.9 g/dL Critically low 3.4-5.[address] [facility] Comment on above: Performed By: #### P OCGLUC #### [facility] Laboratory [address] [address] [address] Kerrie Stark Albumin/Globulin [Mass ratio] 0.5 {ratio} Normal [facility] Comment on above: Performed By: #### P OCGLUC #### [facility] Laboratory [address] [address] [address] Kerrie Stark ALP [Catalytic activity/Vol] 50 U/L Normal 46-116 [facility] Comment on above: Performed By: #### P OCGLUC #### [facility] Laboratory [address] [address] [address] Kerrie Stark ALT [Catalytic activity/Vol] 24 U/L Normal 16-63 [facility] Comment on above: Performed By: #### P OCGLUC #### [facility] Laboratory [address] [address] [address] Kerrie Stark Anion gap [Moles/Vol] 12.9 mmol/L Normal [facility] Comment on above: Performed By: #### P OCGLUC #### [facility] Laboratory [address] [address] [address] Kerrie Stark AST [Catalytic activity/Vol] 19 U/L Normal 15-37 [facility] Comment on above: Performed By: #### P OCGLUC #### [facility] Laboratory [address] [address] [address] Kerrie Stark Bilirubin [Mass/Vol] 0.3 mg/dL Normal 0.2-1.0 [facility] Comment on above: Performed By: #### P OCGLUC #### [facility] Laboratory [address] [address] [address] Kerrie Stark Calcium [Mass/Vol] 8.5 mg/dL Normal 8.5-10.1 [facility] Comment on above: Performed By: #### P OCGLUC #### [facility] Laboratory [address] [address] [address] Kerrie Stark Chloride [Moles/Vol] 103 mmol/L Normal 98-107 [facility] Comment on above: Performed By: #### P OCGLUC #### [facility] Laboratory [address] [address] [address] Kerrie Stark CO2 [Moles/Vol] 22.2 mmol/L Normal 21.0-32.0 [facility] Comment on above: Performed By: #### P OCGLUC #### [facility] Laboratory [address] [address] [address] Kerrie Stark Creatinine [Mass/Vol] 1.17 mg/dL Normal 0.70-1.30 [facility] Comment on above: Performed By: #### P OCGLUC #### [facility] Laboratory [address] [address] [address] Kerrie Stark EGFR-AF ANGOLAN >60 Normal >=60 [facility] Comment on above: Performed By: #### P OCGLUC #### [facility] Laboratory [address] [address] [address] Kerrie Stark EGFR-NON AF ANGOLAN 60 mL/min/1.73m2 Normal >=60 [facility] Comment on above: Performed By: #### P OCGLUC #### [facility] Laboratory [address] [address] [address] Kerrie Stark Globulin (S) [Mass/Vol] 3.8 g/dL Normal [facility] Comment on above: Performed By: #### P OCGLUC #### [facility] Laboratory [address] [address] [address] Kerrie Stark Glucose [Mass/Vol] 283 mg/dL Critically high 74-106 [facility] Comment on above: Performed By: #### P OCGLUC #### [facility] Laboratory [address] [address] [address] Kerrie Stark Potassium [Moles/Vol] 4.1 mmol/L Normal 3.5-5.1 [facility] Comment on above: Performed By: #### P OCGLUC #### [facility] Laboratory [address] [address] [address] Kerrie Stark Protein [Mass/Vol] 5.7 g/dL Critically low 6.4-8.[address] [facility] Comment on above: Performed By: #### P OCGLUC #### [facility] Laboratory [address] [place] [address] Dr. Kerrie Stark Sodium [Moles/Vol] 134 mmol/L Critically low 136-[address] [facility] Comment on above: Performed By: #### P OCGLUC #### [facility] Laboratory [address] [place] [address] Dr. Kerrie Stark Urea nitrogen [Mass/Vol] 23.0 mg/dL Critically high 7.0-18.0 [facility] Comment on above: Performed By: #### P OCGLUC #### [facility] Laboratory [address] [place] [address] Dr. Kerrie Stark Urea nitrogen/Creatinine [Mass ratio] 19.7 mg/mg Normal [facility] Comment on above: Performed By: #### P OCGLUC #### [facility] Laboratory [address] [address] [address] Kerrie Strak CULTURE SPUTUMon 04-06-2022 CULTURE SPUTUM Isolate 1 Grace albicans Light growth of Normal [facility] Comment on above: Performed By: #### S PUTCX #### [facility] Laboratory [address] [address] [address] Kerrie Stark CULTURE URINEon 04-06-2022 CULTURE URINE Culture Observations: NO GROWTH. Normal [facility] Comment on above: Performed By: #### U RCX #### [facility] Laboratory [address] [address] [address] Kerrie Stark ER URINE PROFILEon 3 Bilirubin Ql (U) Negative Normal NEGATIVE [facility] Comment on above: Performed By: #### P OCGLUC #### [facility] Laboratory [address] [place] [address] Dr. Kerrie Stark Clarity (U) CLEAR Normal CLEAR [facility] Comment on above: Performed By: #### P OCGLUC #### [facility] Laboratory [address] [address] [address] Kerrie Stark Color (U) YELLOW Normal YELLOW [facility] Comment on above: Performed By: #### P OCGLUC #### [facility] Laboratory [address] [place] [address] Dr. Kerrie BRINK A micrscopic examination will be performed if indicated. Normal [facility] Comment on above: Performed By: #### P OCGLUC #### [facility] Laboratory [address] [address] [address] Kerrie Stark Glucose Ql (U) Negative Normal NEGATIVE [facility] Comment on above: Performed By: #### P OCGLUC #### [facility] Laboratory [address] [address] [address] Kerrie Stark Hemoglobin Ql (U) Negative Normal NEGATIVE [facility] Comment on above: Performed By: #### P OCGLUC #### [facility] Laboratory [address] [address] [address] Kerrie Stark Ketones Ql (U) Negative Normal NEGATIVE [facility] Comment on above: Performed By: #### P OCGLUC #### [facility] Laboratory [address] [address] [address] Kerrie Stark LEUKOCYTES Negative Normal NEGATIVE [facility] Comment on above: Performed By: #### P OCGLUC #### [facility] Laboratory [address] [address] [address] Kerrie Stark Nitrite Ql (U) Negative Normal NEGATIVE [facility] Comment on above: Performed By: #### P OCGLUC #### [facility] Laboratory [address] [place] [address] Dr. Kerrie Stark pH (U) 6.0 [pH] Normal 5-9 [facility] Comment on above: Performed By: #### P OCGLUC #### [facility] Laboratory [address] [place] [address] Dr. Kerrie Stark Protein (U) [Mass/Vol] 30 mg/dL Abnormal NEGAT LITTLE/ TRACE [facility] Comment on above: Performed By: #### P OCGLUC #### [facility] Laboratory [address] [place] [address] Dr. Kerrie Stark SPEC GRAVITY 1.015 Normal 1.005-<=1.025 [facility] Comment on above: Performed By: #### P OCGLUC #### [facility] Laboratory [address] [place] [address] Dr. Kerrie Stark UR MICRO IND INDICATED Normal [facility] Comment on above: Performed By: #### P OCGLUC #### [facility] Laboratory [address] [place] [address] Dr. Kerrie Stark Urobilinogen Qn (U) 0.2 {Ricky'U}/dL Normal 0.2 - 1. 0 [facility] Comment on above: Performed By: #### P OCGLUC #### [facility] Laboratory [address] [place] [address] Dr. Kerrie Stark POINT OF CARE GLUCOSEon 03-22 Glucose [Mass/Vol] 301 mg/dL Critically high 74-106 [facility] Comment on above: Performed By: #### P OCGLUC #### [facility] Laboratory [address] [place] [address] Dr. Kerrie Stark Glucose [Mass/Vol] 272 mg/dL Critically high [email or web address] [facility] Comment on above: Performed By: #### P OCGLUC #### [facility] Laboratory [address] [address] [address] Kerrie Stark Glucose [Mass/Vol] 191 mg/dL Critically high [email or web address] [facility] Comment on above: Performed By: #### P OCGLUC #### [facility] Laboratory [address] [address] [address] Kerrie Stark Glucose [Mass/Vol] 164 mg/dL Critically high [address] [place] [address] Comment on above: Performed By: #### C BC #### [facility] Laboratory [address] [place] [address] Dr. Kerrie Stark Glucose [Mass/Vol] 128 mg/dL Critically high [address] [place] [address] Comment on above: Performed By: #### P OCGLUC #### [facility] Laboratory [address] [place] [address] Dr. Kerrie Stark URINE MICROSCOPIC ONLYon BACTERIA SMALL Abnormal NONE SEEN [facility] Comment on above: Performed By: #### P OCGLUC #### [facility] Laboratory [address] [place] [address] Dr. Kerrie Stark Bacteria identified Cx Nom (U) INDICATED Normal [facility] Comment on above: Performed By: #### P OCGLUC #### [facility] Laboratory [address] [place] [address] Dr. Kerrei Stark CAST SEEN Abnormal NONE SEEN [facility] Comment on above: Performed By: #### P OCGLUC #### [facility] Laboratory [address] [place] [address] Dr. Kerrie Stark Crystals LM Nom (Urine sed) NONE SEEN Normal NONE SEEN [facility] Comment on above: Performed By: #### P OCGLUC #### [facility] Laboratory [address] [place] [address] Dr. Kerrie Stark Epithelial cells LM Ql (Urine sed) RARE Normal NONE SEEN /RARE [facility] Comment on above: Performed By: #### P OCGLUC #### [facility] Laboratory [address] [place] [address] Dr. Kerrie Stark HYALINE CAST RARE Normal [facility] Comment on above: Performed By: #### P OCGLUC #### [facility] Laboratory [address] [place] [address] Dr. Kerrie Stark MUCOUS TRACE Abnormal NONE SEEN [facility] Comment on above: Performed By: #### P OCGLUC #### [facility] Laboratory [address] [place] [address] Dr. Kerrie Stark RBC 0-2 Normal 0-2 [facility] Comment on above: Performed By: #### P OCGLUC #### [facility] Laboratory [address] [place] [address] Dr. Kerrie Stark WBC 0-2 Abnormal NONE SEEN [facility] Comment on above: Performed By: #### P OCGLUC #### [facility] Laboratory [address] [place] [address] Dr. Kerrie Stark BNPon 04-05-2022 Natriuretic peptide B (Bld) [Mass/Vol] 394.0 pg/mL Normal <=1,800.0 [facility] Comment on above: Performed By: #### C BC #### [facility] Laboratory [address] [place] [address] Dr. Kerrie Stark CBC W MANUAL DIFFon 04-05-19 23 ATYPICAL LYMPH # Normal [facility] Comment on above: Performed By: #### P OCGLUC #### [facility] Laboratory [address] [place] [address] Dr. Kerrie Stark ATYPICAL LYMPH % Normal [facility] Comment on above: Performed By: #### P OCGLUC #### [facility] Laboratory [address] [place] [address] Dr. Kerrie Stark BAND # Normal 0.0-0.3 [facility] Comment on above: Performed By: #### P OCGLUC #### [facility] Laboratory [address] [place] [address] Dr. Kerrie tSark BAND % Normal 0-5 [facility] Comment on above: Performed By: #### P OCGLUC #### [facility] Laboratory [address] [place] [address] Dr. Kerrie Stark BASOM # 0.00 103/ul Normal 0.00-0.10 [facility] Comment on above: Performed By: #### P OCGLUC #### [facility] Laboratory [address] [place] [address] Dr. Kerrie Stark BASOM % 0.0 % Critically low 0.2-2.0 [facility] Comment on above: Performed By: #### P OCGLUC #### [facility] Laboratory [address] [place] [address] Dr. Kerrie Stark BLAST # Normal [facility] Comment on above: Performed By: #### P OCGLUC #### [facility] Laboratory [address] [place] [address] Dr. Kerrie Stark BLAST % Normal [facility] Comment on above: Performed By: #### P OCGLUC #### [facility] Laboratory [address] [place] [address] Dr. Kerrie Stark CORRECTED WBC Normal 4.0-11.0 [facility] Comment on above: Performed By: #### P OCGLUC #### [facility] Laboratory [address] [place] [address] Dr. Kerrie Stark EOS # 0.00 103/ul Normal 0.00-0.70 [facility] Comment on above: Performed By: #### P OCGLUC #### [facility] Laboratory [address] [place] [address] Dr. Kerrie Stark EOS% 0.0 % Critically low 0.9-7.0 [facility] Comment on above: Performed By: #### P OCGLUC #### [facility] Laboratory [address] [place] [address] Dr. Kerrie Stark HCT 43.5 % Normal 42.0-54.0 [facility] Comment on above: Performed By: #### P OCGLUC #### [facility] Laboratory [address] [place] [address] Dr. Kerrie Stark HGB 14.7 g/dl Normal 14.0-18.0 [facility] Comment on above: Performed By: #### P OCGLUC #### [facility] Laboratory [address] [place] [address] Dr. Kerrie Stark LYMPHM # 0.78 103/ul Critically low 1.20-3.80 [facility] Comment on above: Performed By: #### P OCGLUC #### [facility] Laboratory [address] [address] [address] Kerrie Stark LYMPHM% 4.0 % Critically low 20.5-60.0 [facility] Comment on above: Performed By: #### P OCGLUC #### [facility] [address] [address] [address] Kerrie Stark MCH 32.5 pg Normal 25.9-34.0 [facility] Comment on above: Performed By: #### P OCGLUC #### [facility] [facility] [address] [address] [address] Kerrie Stark MCHC 33.8 g/dl Normal 29.9-35.2 [facility] Comment on above: Performed By: #### P OCGLUC #### [facility] [address] [address] [address] Kerrie Stark MCV 96.2 fL Critically high 80.0-94.0 [facility] Comment on above: Performed By: #### P OCGLUC #### [facility] [address] [address] [address] Kerrie Stark METAMYELOCYTE # Normal [facility] Comment on above: Performed By: #### P OCGLUC #### [facility] [address] [address] [address] Kerrie Stark METAMYELOCYTE % Normal [facility] Comment on above: Performed By: #### P OCGLUC #### [facility] [address] [address] [address] Kerrie Stark MONOM# 0.58 103/ul Normal 0.30-0.80 [facility] Comment on above: Performed By: #### P OCGLUC #### [facility] [address] [address] [address] Kerrie Stark MONOM% 3.0 % Normal 1.7-12.0 [facility] Comment on above: Performed By: #### P OCGLUC #### [facility] [address] [address] [address] Kerrie Stark MPV 10.1 fL Normal 9.5-13.5 [facility] Comment on above: Performed By: #### P OCGLUC #### [facility] [address] [address] [address] Kerrie Stark MYELOCYTE # Normal [facility] Comment on above: Performed By: #### P OCGLUC #### [facility] [address] [address] [address] Kerrie Stark MYELOCYTE % Normal [facility] Comment on above: Performed By: #### P OCGLUC #### [facility] [address] [address] [address] Kerrie Stark NRBC Normal [facility] Comment on above: Performed By: #### P OCGLUC #### [facility] [address] [address] [address] Kerrie Stark PLT 181 103/ul Normal 150-450 [facility] Comment on above: Performed By: #### P OCGLUC #### [facility] [address] [address] [address] Kerrie Stark RBC 4.52 106/ul Critically low 4.70-6.10 [facility] Comment on above: Performed By: #### P OCGLUC #### [facility] [address] [place] [address] Dr. Kerrie Stark RDW 12.9 % Normal 11.0-15.0 [facility] Comment on above: Performed By: #### P OCGLUC #### [facility] [address] [address] [address] Kerrie Stark SEG # 18.14 103/ul Critically high 1.40-6.50 [facility] Comment on above: Performed By: #### P OCGLUC #### [facility] [address] [address] [address] Kerrie Stark SEG % 93.0 % Critically high 43.0-75.0 [facility] Comment on above: Performed By: #### P OCGLUC #### [facility] [address] [place], [place] [address] Dr. Kerrie Stark WBC 19.5 103/ul Critically high 4.0-11.0 [facility] Comment on above: Performed By: #### P OCGLUC #### [facility] [address] [place], [place] [address] Dr. Kerrie Stark CTA CHEST WO W [...] by: BING ADAMS Date: 2022-04-05 20:31 Normal [facility] CULTURE BLOODon 04-05-2022 Microscopic examination of blood, culture Culture Observations: NO GROWTH AT 5 DAYS. Normal [facility] Comment on above: Performed By: #### C BC #### [facility] [address] [place] [address] Dr. Kerrie Stark Microscopic examination of blood, culture Culture Observations: NO GROWTH AT 5 DAYS. Normal [facility] Comment on above: Performed By: #### B [id number] #### [facility] [address] [place] [address] Dr. Kerrie Stark LACTATE/LACTIC ACIDon 2022 Lactate [Moles/Vol] 2.7 mmol/L Critically high 0.4-1.9 [facility] Comment on above: Performed By: #### P OCGLUC #### [facility] [address] [place] [address] Dr. Kerrie Stark Lactate [Moles/Vol] 3.2 mmol/L Critically high 0.4-1.9 [facility] Comment on above: Performed By: #### D DIM #### [facility] [address] [place] [address] Dr. Kerrie Stark PH VENOUS BLOODon 04-05-2022 PCO2 VENOUS 42.3 mmHg Normal 40.0-52.0 [facility] Comment on above: Performed By: #### P OCGLUC #### [facility] [address] [place] [address] Dr. Kerrie Stark pH VENOUS 7.400 Normal 7.330-7.430 [facility] Comment on above: Performed By: #### P OCGLUC #### [facility] [address] [place] [address] Dr. Kerrie Satrk PROF 14(COMP METB)on 023 Albumin [Mass/Vol] 3.0 g/dL Critically low 3.4-5.0 Th [facility] Comment on above: Performed By: #### C BC #### [facility] [address] [place] [address] Dr. Kerrie Stark Albumin/Globulin [Mass ratio] 0.7 {ratio} Normal [facility] Comment on above: Performed By: #### C BC #### [facility] [address] [address] [address] Kerrie Stark ALP [Catalytic activity/Vol] 68 U/L Normal 46-116 [facility] Comment on above: Performed By: #### C BC #### [facility] [address] [address] [address] Kerrie Stark ALT [Catalytic activity/Vol] 29 U/L Normal 16-63 [facility] Comment on above: Performed By: #### C BC #### [facility] [address] [address] [address] Kerrie Stark Anion gap [Moles/Vol] 12.3 mmol/L Normal Th e [facility] Comment on above: Performed By: #### C BC #### [facility] [address] [place] [address] Dr. Kerrie Stark AST [Catalytic activity/Vol] 19 U/L Normal 15-37 [facility] Comment on above: Performed By: #### C BC #### [facility] [address] [place] [address] Dr. Kerrie Stark Bilirubin [Mass/Vol] 0.7 mg/dL Normal 0.2-1.0 [facility] Comment on above: Performed By: #### C BC #### [facility] [address] [place] [address] Dr. Kerrie Stark Calcium [Mass/Vol] 10.0 mg/dL Normal 8.5-10.1 [facility] Comment on above: Performed By: #### C BC #### [facility] [address] [place] [address] Dr. Kerrie Stark Chloride [Moles/Vol] 96 mmol/L Critically low 98-107 [facility] Comment on above: Performed By: #### C BC #### [facility] [address] [place] [address] Dr. Kerrie Stark CO2 [Moles/Vol] 27.7 mmol/L Normal 21.0-32.0 [facility] Comment on above: Performed By: #### C BC #### [facility] [address] [address] [address] Kerrie Stark Creatinine [Mass/Vol] 1.18 mg/dL Normal 0.70-1.30 [facility] Comment on above: Performed By: #### C BC #### [facility] [address] [address] [address] Kerrie Stark EGFR-AF ANGOLAN >60 Normal >=60 [facility] Comment on above: Performed By: #### C BC #### [facility] [address] [address] [address] Kerrie Stark EGFR-NON AF ANGOLAN 59 mL/min/1.73m2 Critically low >=60 [facility] Comment on above: Performed By: #### C BC #### [facility] [address] [place] [address] Dr. Kerrie Stark Globulin (S) [Mass/Vol] 4.5 g/dL Normal [facility] Comment on above: Performed By: #### C BC #### [facility] [address] [address] [address] Kerrie Stark Glucose [Mass/Vol] 189 mg/dL Critically high 74-106 [facility] Comment on above: Performed By: #### C BC #### [facility] [address] [place] [address] Dr. Kerrie Stark Potassium [Moles/Vol] 4.0 mmol/L Normal 3.5-5.1 [facility] Comment on above: Performed By: #### C BC #### [facility] [address] [address] [address] Kerrie Stark Protein [Mass/Vol] 7.5 g/dL Normal 6.4-8.2 [facility] Comment on above: Performed By: #### C BC #### [facility] [address] [place] [address] Dr. Kerrie Stark Sodium [Moles/Vol] 132 mmol/L Critically low 136-145 Th [facility] Comment on above: Performed By: #### C BC #### [facility] [address] [place] [address] Dr. Kerrie Stark Urea nitrogen [Mass/Vol] 34.0 mg/dL Critically high 7.0-18.0 [facility] Comment on above: Performed By: #### C BC #### [facility] [address] [place] [address] Dr. Kerrie Stark Urea nitrogen/Creatinine [Mass ratio] 28.8 mg/mg Normal [facility] Comment on above: Performed By: #### C BC #### [facility] [address] [place] [address] Dr. Kerrie Stark PROTIMEon 04-05-2022 INR Coag (PPP) [Relative time] 1.00 {INR} Normal [facility] Comment on above: Performed By: #### P OCGLUC #### [facility] [address] [place] [address] Dr. Kerrie Stark INR GUIDELINES SEE BELOW Normal [facility] Comment on above: Result Comment: TOBY RED INR: 2.0 - 3.0 CONDITIONS NOT LISTED BELOW 2.5 - 3.5 FOR PROSTHETIC HEART VALVE REPLACEMENT 2.5 - 3.5 RECURRENT THROMBOSIS Performed By: #### P OCGLUC #### [facility] [address] [place] [address] Dr. Kerrie Stark PT Coag (PPP) [Time] 10.6 s Normal 9.0-11.6 [facility] Comment on above: Performed By: #### P OCGLUC #### [facility] [address] [place] [address] Dr. Kerrie Stark PTTon 04-05-2022 aPTT Coag (Bld) [Time] 28.5 s Normal 22.3-36.[address] [facility] Comment on above: Performed By: #### P OCGLUC #### [facility] [address] [place] [address] Dr. Kerrie Stark RESPIRATORY PANEL PLUSon Adenovirus Not detected Normal NOT DETECTED [facility] Comment on above: Performed By: #### L ACT #### [facility] [address] [place] [address] Dr. Kerrie Stark B. Parapertusis Not detected Normal NOT DETECTED [facility] Comment on above: Performed By: #### L ACT #### [facility] [address] [address] [address] Kerrie Nayak. Pertussis Not detected Normal NOT DETECTED [facility] Comment on above: Performed By: #### L ACT #### [facility] [address] [address] [address] Kerrie Stark Chlamydia Pneumoniae Not detected Normal NOT DETECTED [facility] Comment on above: Performed By: #### L ACT #### [facility] [address] [place] [address] Dr. Kerrie Stark Coronavirus 229E Not detected Normal NOT DETECTED [facility] Comment on above: Performed By: #### L ACT #### [facility] [address] [address] [address] Kerrie Stark Coronavirus HKU1 Not detected Normal NOT DETECTED [facility] Comment on above: Performed By: #### L ACT #### [facility] [address] [place] [address] Dr. Kerrie Stark Coronavirus NL63 Not detected Normal NOT DETECTED [facility] Comment on above: Performed By: #### L ACT #### [facility] [address] [place] [address] Dr. Kerrie Stark Coronavirus OC43 Not detected Normal NOT DETECTED [facility] Comment on above: Performed By: #### L ACT #### [facility] [address] [place] [address] Dr. Kerrie Stark Influenza A H1 Not detected Normal NOT DETECTED [facility] Comment on above: Performed By: #### L ACT #### [facility] [address] [address] [address] Kerrie Stark Influenza A H1 2009 Not detected Normal NOT DETECTED [facility] Comment on above: Performed By: #### L ACT #### [facility] [address] [place] [address] Dr. Kerrie Stark Influenza A H3 Not detected Normal NOT DETECTED [facility] Comment on above: Performed By: #### L ACT #### [facility] [address] [place] [address] Dr. Kerrie Stark Influenza B Not detected Normal NOT DETECTED [facility] Comment on above: Performed By: #### L ACT #### [facility] [address] [place] [address] Dr. Kerrie Stark Metapneumovirus Not detected Normal NOT DETECTED [facility] Comment on above: Performed By: #### L ACT #### [facility] [address] [address] [address] Kerrie Stark Mycoplas. Pneumoniae Not detected Normal NOT DETECTED [facility] Comment on above: Performed By: #### L ACT #### [facility] [address] [address] [address] Kerrie Stark Parainfluenza 1 Not detected Normal NOT DETECTED [facility] Comment on above: Performed By: #### L ACT #### [facility] [address] [place] [address] Dr. Kerrie Stark Parainfluenza 2 Not detected Normal NOT DETECTED [facility] Comment on above: Performed By: #### L ACT #### [facility] [address] [place] [address] Dr. Kerrie Stark Parainfluenza 3 Not detected Normal NOT DETECTED [facility] Comment on above: Performed By: #### L ACT #### [facility] [address] [place] [address] Dr. Kerrie Stark Parainfluenza 4 Not detected Normal NOT DETECTED [facility] Comment on above: Performed By: #### L ACT #### [facility] [address] [place] [address] Dr. Kerrie Stark Rhino/Enterovirus Not detected Normal NOT DETECTED [facility] Comment on above: Performed By: #### L ACT #### [facility] [address] [place] [address] Dr. Kerrie Stark RP2 Header 1 RESPIRATORY PANEL: VIRUSES Normal [facility] Comment on above: Performed By: #### L ACT #### [facility] [address] [address] [address] Kerrie HARVEY Header 2 RESPIRATORY PANEL: BACTERIA Normal [facility] Comment on above: Performed By: #### L ACT #### [facility] [address] [address] [address] Kerrie Stark RSV Not detected Normal NOT DETECTED [facility] Comment on above: Performed By: #### L ACT #### [facility] [address] [place], [place] [address] Dr. Kerrie Stark SARS-CoV-2 (COVID-19) RNA QUE+probe Ql (Unsp spec) Detected Abnormal NOT DETECTED [facility] Comment on above: Performed By: #### L ACT #### [facility] [address] [address] [address] Kerrie Stark TROPONIN, HIGH SENSITIVITYon 04-05-2022 HSTROP 8.4 pg/mL Normal 4.0-76.1 [facility] Comment on above: Result Comment: CUT- OFF POINTS HAVE BEEN ESTABLISHED BASED ON THE FOURTH UNIVERSAL DEFINITIONS OF MYOCARDIAL INFARCTION. THE UPPER REFERENCE LIMIT (URL) OF TROPONIN, DEFINED THE 99TH PERCENTILE OF cTnI DISTRIBUTION IN A REFERENCE POPULATION, HAS BEEN CONFIRMED THE DECISION THRESHOLD FOR RI DIAGNOSIS. Performed By: #### C BC #### [facility] [address] [address] [address] 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 Kerrie Stark ATYPICAL LYMPH % Normal [facility] Comment on above: Performed By: #### L ACT #### [facility] [address] [address] [address] Kerrie Stark BAND # 0.0 103/ul Normal 0.0-0.3 [facility] Comment on above: Performed By: #### L ACT #### [facility] [address] [address] [address] Kerrie Stark BAND % 0 % Normal 0-5 [facility] Comment on above: Performed By: #### L ACT #### [facility] [address] [address] [address] Kerrie Stark BASOM # 0.00 103/ul Normal 0.00-0.10 [facility] Comment on above: Performed By: #### L ACT #### [facility] [address] [place] [address] Dr. Kerrie Stark BASOM % 0.0 % Critically low 0.2-2.0 [facility] Comment on above: Performed By: #### L ACT #### [facility] [address] [place] [address] Dr. Kerrie Stark BLAST # Normal [facility] Comment on above: Performed By: #### L ACT #### [facility] [address] [place] [address] Dr. Kerrie Stark BLAST % Normal [facility] Comment on above: Performed By: #### L ACT #### [facility] [address] [place] [address] Dr. Kerrie Stark CORRECTED WBC Normal 4.0-11.0 [facility] Comment on above: Performed By: #### L ACT #### [facility] [address] [place] [address] Dr. Kerrie Stark EOS # 0.00 103/ul Normal 0.00-0.70 [facility] Comment on above: Performed By: #### L ACT #### [facility] [address] [place] [address] Dr. Kerrie Stark EOS% 0.0 % Critically low 0.9-7.0 [facility] Comment on above: Performed By: #### L ACT #### [facility] [address] [place] [address] Dr. Kerrie Stark HCT 37.3 % Critically low 42.0-54.0 [facility] Comment on above: Performed By: #### L ACT #### [facility] [address] [place] [address] Dr. Kerrie Stark HGB 12.0 g/dl Critically low 14.0-18.0 [facility] Comment on above: Performed By: #### L ACT #### [facility] [address] [place] [address] Dr. Kerrie Stark LYMPHM # 0.00 103/ul Critically low 1.20-3.80 [facility] Comment on above: Performed By: #### L ACT #### [facility] [address] [place] [address] Dr. Kerrie Stark LYMPHM% 0.0 % Critically low 20.5-60.0 [facility] Comment on above: Performed By: #### L ACT #### [facility] [address] [place] [address] Dr. Kerrie Stark MCH 33.1 pg Normal 25.9-34.0 [facility] Comment on above: Performed By: #### L ACT #### [facility] [address] [place] [address] Dr. Kerrie Stark MCHC 32.2 g/dl Normal 29.9-35.2 [facility] Comment on above: Performed By: #### L ACT #### [facility] [address] [place] [address] Dr. Kerrie Stark MCV 103.0 fL Critically high 80.0-94.0 [facility] Comment on above: Performed By: #### L ACT #### [facility] [address] [place] [address] Dr. Kerrie Stark METAMYELOCYTE # Normal [facility] Comment on above: Performed By: #### L ACT #### [facility] [address] [place] [address] Dr. Kerrie Stark METAMYELOCYTE % Normal [facility] Comment on above: Performed By: #### L ACT #### [facility] [address] [place] [address] Dr. Kerrie Stark MONOM# 0.69 103/ul Normal 0.30-0.80 [facility] Comment on above: Performed By: #### L ACT #### [facility] [address] [place] [address] Dr. Kerrie Stark MONOM% 5.0 % Normal 1.7-12.0 [facility] Comment on above: Performed By: #### L ACT #### [facility] [address] [place] [address] Dr. Kerrie Stark MPV 10.6 fL Normal 9.5-13.5 [facility] Comment on above: Performed By: #### L ACT #### [facility] [address] [place] [address] Dr. Kerrie Stark MYELOCYTE # Normal [facility] Comment on above: Performed By: #### L ACT #### [facility] [address] [address] [address] Kerrie Stark MYELOCYTE % Normal [facility] Comment on above: Performed By: #### L ACT #### [facility] [address] [address] [address] Kerrie Stark NRBC Normal [facility] Comment on above: Performed By: #### L ACT #### [facility] [address] [place] [address] Dr. Kerrie Stark PLT 158 103/ul Normal 150-450 [facility] Comment on above: Performed By: #### L ACT #### [facility] [address] [address] [address] Kerrie Stark RBC 3.62 106/ul Critically low 4.70-6.10 [facility] Comment on above: Performed By: #### L ACT #### [facility] [address] [place] [address] Dr. Kerrie Stark RDW 13.2 % Normal 11.0-15.0 [facility] Comment on above: Performed By: #### L ACT #### [facility] [address] [place] [address] Dr. Kerrie Stark SEG # 13.02 103/ul Critically high 1.40-6.50 [facility] Comment on above: Performed By: #### L ACT #### [facility] [address] [address] [address] Kerrie Stark SEG % 95.0 % Critically high 43.0-75.0 [facility] Comment on above: Performed By: #### L ACT #### [facility] [address] [address] [address] Kerrie Stark WBC 13.7 103/ul Critically high 4.0-11.0 [facility] Comment on above: Performed By: #### L ACT #### [facility] [address] [address] [address] Kerrie Stark POINT OF CARE GLUCOSEon Glucose [Mass/Vol] 300 mg/dL Critically high 74-106 [facility] Comment on above: Performed By: #### C BC #### [facility] [address] [address] [address] Krerie Stark PROF CHEM 8 (BAS METB)on Anion gap [Moles/Vol] 12.5 mmol/L Normal [facility] Comment on above: Performed By: #### D DIM #### [facility] [address] [place] [address] Dr. Kerrie Stark Calcium [Mass/Vol] 8.9 mg/dL Normal 8.5-10.1 [facility] Comment on above: Performed By: #### D DIM #### [facility] [address] [place] [address] Dr. Kerrie Stark Chloride [Moles/Vol] 103 mmol/L Normal 98-107 [facility] Comment on above: Performed By: #### D DIM #### [facility] [address] [place] [address] Dr. Kerrie Stark CO2 [Moles/Vol] 25.4 mmol/L Normal 21.0-32.0 [facility] Comment on above: Performed By: #### D DIM #### [facility] [address] [place] [address] Dr. Kerrie Stark Creatinine [Mass/Vol] 1.05 mg/dL Normal 0.70-1.30 [facility] Comment on above: Performed By: #### D DIM #### [facility] [address] [place] [address] Dr. Kerrie Stark EGFR-AF ANGOLAN >60 Normal >=60 [facility] Comment on above: Performed By: #### D DIM #### [facility] [address] [place] [address] Dr. Kerrie Stark EGFR-NON AF ANGOLAN >60 Normal >=60 [facility] Comment on above: Performed By: #### D DIM #### [facility] [address] [address] [address] Kerrie Stark Glucose [Mass/Vol] 243 mg/dL Critically high 74-106 [facility] Comment on above: Performed By: #### D DIM #### [facility] [address] [address] [address] Kerrie Stark Potassium [Moles/Vol] 3.9 mmol/L Normal 3.5-5.1 [facility] Comment on above: Performed By: #### D DIM #### [facility] [address] [address] [address] Kerrie Stark Sodium [Moles/Vol] 137 mmol/L Normal 136-145 [facility] Comment on above: Performed By: #### D DIM #### [facility] [address] [address] [address] Kerrie Stark Urea nitrogen [Mass/Vol] 22.0 mg/dL Critically high 7.0-18.0 [facility] Comment on above: Performed By: #### D DIM #### [facility] [address] [address] [address] Kerrie Stark Urea nitrogen/Creatinine [Mass ratio] 21.0 mg/mg Normal [facility] Comment on above: Performed By: #### D DIM #### [facility] [address] [address] [address] Kerrie Stark CARDIAC CONSTANTINE 3-6on 3 CK [Catalytic activity/Vol] 91 U/L Normal 39-308 [facility] Comment on above: Performed By: #### C MREP #### [facility] [address] [address] [address] Kerrie Stark CK.MB [Mass/Vol] 0.35 ng/mL Normal <=3.60 [facility] Comment on above: Performed By: #### C MREP #### [facility] [address] [address] [address] Kerrie Stark HSTROP 20.8 pg/mL Normal 4.0-76.1 [facility] Comment on above: Result Comment: CUT- OFF POINTS HAVE BEEN ESTABLISHED BASED ON THE FOURTH UNIVERSAL DEFINITIONS OF MYOCARDIAL INFARCTION. THE UPPER REFERENCE LIMIT (URL) OF TROPONIN, DEFINED THE 99TH PERCENTILE OF cTnI DISTRIBUTION IN A REFERENCE POPULATION, HAS BEEN CONFIRMED THE DECISION THRESHOLD FOR RI DIAGNOSIS. Performed By: #### C MREP #### [facility] [address] [address] [address] Kerrie Stark CARDIAC CONSTANTINE ADMITon 023 CK [Catalytic activity/Vol] 56 U/L Normal 39-308 [facility] Comment on above: Performed By: #### D DIM #### [facility] [address] [address] [address] Kerrie Stark CK.MB [Mass/Vol] 0.36 ng/mL Normal <=3.60 [facility] Comment on above: Performed By: #### D DIM #### [facility] [address] [place] [address] Dr. Kerrie Stark HSTROP 12.7 pg/mL Normal 4.0-76.1 [facility] Comment on above: Result Comment: CUT- OFF POINTS HAVE BEEN ESTABLISHED BASED ON THE FOURTH UNIVERSAL DEFINITIONS OF MYOCARDIAL INFARCTION. THE UPPER REFERENCE LIMIT (URL) OF TROPONIN, DEFINED THE 99TH PERCENTILE OF cTnI DISTRIBUTION IN A REFERENCE POPULATION, HAS BEEN CONFIRMED THE DECISION THRESHOLD FOR RI DIAGNOSIS. Performed By: #### D DIM #### [facility] [address] [place] [address] Dr. Kerrie Stark KIKE 128 ng/mL Critically high 16-96 [facility] Comment on above: Performed By: #### D DIM #### [facility] [address] [address] [address] Kerrie Stark CBC AUTO DIFFon 03-28-2022 BASO # 0.0 103/ul Normal 0.0-0.1 [facility] Comment on above: Performed By: #### C BC #### [facility] [address] [address] [address] Kerrie Stark Basophils/100 WBC (Bld) 0.2 % Normal 0.2-2.0 [facility] Comment on above: Performed By: #### C BC #### [facility] [address] [address] [address] Kerrie Stark EO # 0.0 103/ul Normal 0.0-0.7 [facility] Comment on above: Performed By: #### C BC #### [facility] [address] [place] [address] Dr. Kerrie Stark Eosinophils/100 WBC (Bld) 0.1 % Critically low 0.9-7.0 [facility] Comment on above: Performed By: #### C BC #### [facility] [address] [place] [address] Dr. Kerrie Stark Erythrocyte distribution width (RBC) [Ratio] 13.3 % Normal 11.0-15.0 [facility] Comment on above: Performed By: #### C BC #### [facility] [address] [place] [address] Dr. Kerrie Stark Hematocrit (Bld) [Volume fraction] 41.9 % Critically low 42.0-54.0 [facility] Comment on above: Performed By: #### C BC #### [facility] [address] [place] [address] Dr. Kerrie Stark Hemoglobin (Bld) [Mass/Vol] 13.3 g/dL Critically low 14.0-18.0 [facility] Comment on above: Performed By: #### C BC #### [facility] [address] [place] [address] Dr. Kerrie Stark IG # 0.04 10e3/ul Critically high 0.00-0.03 [facility] Comment on above: Performed By: #### C BC #### [facility] [address] [place] [address] Dr. Kerrie Stark IG % 0.4 % Normal 0.0-0.5 [facility] Comment on above: Performed By: #### C BC #### [facility] [address] [place] [address] Dr. Kerrie Stark LYMPH # 0.5 103/ul Critically low 1.2-3.8 [facility] Comment on above: Performed By: #### C BC #### [facility] [address] [place] [address] Dr. Kerrie Stark Lymphocytes/100 WBC (Bld) 5.1 % Critically low 20.5-60.0 [facility] Comment on above: Performed By: #### C BC #### [facility] [address] [place] [address] Dr. Kerrie Stark MANUAL DIFF REQ NO Normal [facility] Comment on above: Performed By: #### C BC #### [facility] [address] [place] [address] Dr. Kerrie Stark MCH (RBC) [Entitic mass] 33.2 pg Normal 25.9-34.0 [facility] Comment on above: Performed By: #### C BC #### [facility] [address] [place] [address] Dr. Kerrie Stark MCHC (RBC) [Mass/Vol] 31.7 g/dL Normal 29.9-35.2 [facility] Comment on above: Performed By: #### C BC #### [facility] [address] [place] [address] Dr. Kerrie Stark MCV (RBC) [Entitic vol] 104.5 fL Critically high 80.0-94.0 [facility] Comment on above: Performed By: #### C BC #### [facility] [address] [place] [address] Dr. Kerrie Stark MONO # 1.1 103/ul Critically high 0.3-0.8 [facility] Comment on above: Performed By: #### C BC #### [facility] [address] [place] [address] Dr. Kerrie Stark Monocytes/100 WBC (Bld) 10.9 % Normal 1.7-12.0 [facility] Comment on above: Performed By: #### C BC #### [facility] [address] [place] [address] Dr. Kerrie Stark NEUT # 8.3 103/ul Critically high 1.4-6.5 [facility] Comment on above: Performed By: #### C BC #### [facility] [address] [address] [address] Kerrie Stark Neutrophils/100 WBC (Bld) 83.3 % Critically high 43.0-75.0 [facility] Comment on above: Performed By: #### C BC #### [facility] [address] [address] [address] Kerrie Stark Platelet mean volume (Bld) [Entitic vol] 10.8 fL Normal 9.5-13.5 [facility] Comment on above: Performed By: #### C BC #### [facility] [address] [address] [address] Kerrie Stark PLT 145 103/ul Critically low 150-450 [facility] Comment on above: Performed By: #### C BC #### [facility] [address] [place] [address] Dr. Kerrie Stark RBC 4.01 106/ul Critically low 4.70-6.10 [facility] Comment on above: Performed By: #### C BC #### [facility] [address] [address] [address] Kerrie Stark WBC 10.0 103/ul Normal 4.0-11.0 [facility] Comment on above: Performed By: #### C BC #### [facility] [address] [place] [address] Dr. Kerrie Stark CTA CHEST WO W CONon 03-28- 023 CTA CHEST WO W CON CTA [...] FAROOQ HARDEN Date: 2022-03-28 06:03 Normal [facility] Covid-19 PCR (CVDTB)on SARS-CoV-2 (COVID-19) RNA QUE+probe Ql (Unsp spec) Detected Abnormal NOT DETECTED The [facility] Comment on above: Result Comment: This test is not yet approved or cleared by the [place] FDA. When there are no FDA-approved or cleared tests available, and other criteria are met, FDA can make tests available under an emergency access mechanism called an Emergency Use Authorization (EUA). The EUA for this test is supported by the Insurance Billing Specialist of Health and Human Service's declaration that [...] used). Performed By: #### C BC #### [facility] [address] [place], [place] [address] Dr. Kerrie Stark D-DIMERon 03-28-2022 D-DIMER 0.71 mg/L FEU Critically high <=0.59 [facility] Comment on above: Performed By: #### D DIM #### [facility] [address] [place], [place] [address] Dr. Kerrie Stark D-DIMER COMMENTS SEE BELOW Normal [facility] Comment on above: Result Comment: Incr [...] hospitalization. Performed By: #### D DIM #### [facility] [address] [place] [address] Dr. Kerrie Stark ER URINE PROFILEon 3 Bilirubin Ql (U) Negative Normal NEGATIVE [facility] Comment on above: Performed By: #### P OCGLUC #### [facility] [address] [place] [address] Dr. Kerrie Stark Clarity (U) CLEAR Normal CLEAR [facility] Comment on above: Performed By: #### P OCGLUC #### [facility] [address] [place] [address] Dr. Kerrie Stark Color (U) YELLOW Normal YELLOW [facility] Comment on above: Performed By: #### P OCGLUC #### [facility] [address] [place] [address] Dr. Kerrie BRINK A micrscopic examination will be performed if indicated. Normal [facility] Comment on above: Performed By: #### P OCGLUC #### [facility] [address] [place] [address] Dr. Kerrie Stark Glucose Ql (U) Negative Normal NEGATIVE [facility] Comment on above: Performed By: #### P OCGLUC #### [facility] [address] [place] [address] Dr. Kerrie Stark Hemoglobin Ql (U) Negative Normal NEGATIVE [facility] Comment on above: Performed By: #### P OCGLUC #### [facility] [address] [place] [address] Dr. Kerrie Stark Ketones Ql (U) TRACE Abnormal NEGATIVE [facility] Comment on above: Performed By: #### P OCGLUC #### [facility] [address] [place] [address] Dr. Kerrie Stark LEUKOCYTES Negative Normal NEGATIVE [facility] Comment on above: Performed By: #### P OCGLUC #### [facility] [address] [place] [address] Dr. Kerrie Stark Nitrite Ql (U) Negative Normal NEGATIVE [facility] Comment on above: Performed By: #### P OCGLUC #### [facility] [address] [place] [address] Dr. Kerrie Stark pH (U) 5.5 [pH] Normal 5-9 [facility] Comment on above: Performed By: #### P OCGLUC #### [facility] [address] [place] [address] Dr. Kerrie Stark Protein (U) [Mass/Vol] 30 mg/dL Abnormal NEGAT LITTLE/ TRACE The [facility] Comment on above: Performed By: #### P OCGLUC #### [facility] [address] [place] [address] Dr. Kerrie Stark SPEC GRAVITY 1.025 Normal 1.005-<=1.025 [facility] Comment on above: Performed By: #### P OCGLUC #### [facility] [address] [place] [address] Dr. Kerrie Stark UR MICRO IND NOT INDICATED Normal [facility] Comment on above: Performed By: #### P OCGLUC #### [facility] [address] [place] [address] Dr. Kerrie Stark Urobilinogen Qn (U) 1.0 {Ricky'U}/dL Normal 0.2 - 1. 0 [facility] Comment on above: Performed By: #### P OCGLUC #### [facility] [address] [place] [address] Dr. Kerrie Stark INFLUENZA A AND B AGon 03-28 INFLUANEGH SEE BELOW Normal [facility] Comment on above: Result Comment: Nega tive for Flu A protein angiten. Infection due to Flu A cannot be ruled out. Flu A angiten in the sample may be below the detection limit of the test. Performed By: #### L ACT #### [facility] [address] [place] [address] Dr. Kerrie Stark [facility] SEE BELOW [facility] Comment on above: Result Comment: Nega tive for Flu B protein antigen. Infection due to Flu B cannot be ruled out. Flu B antigen in the sample may be below the detection limit of the test. Performed By: #### L ACT #### [facility] [address] [place] [address] Dr. Kerrie Stark INFLUENZA A AG Negative Normal NEGATIVE SEE COMMENT [facility] Comment on above: Performed By: #### L ACT #### [facility] [address] [place] [address] Dr. Kerrie Stark INFLUENZA B AG Negative Normal NEGATIVE SEE COMMENT [facility] Comment on above: Performed By: #### L ACT #### [facility] [address] [place] [address] Dr. Kerrie Stark POINT OF CARE GLUCOSEon Glucose [Mass/Vol] 251 mg/dL Critically high [address] [place] [address] Comment on above: Performed By: #### C BC #### [facility] [address] [place] [address] Dr. Kerrie Stark Glucose [Mass/Vol] 244 mg/dL Critically high [address] [place] [address] Comment on above: Performed By: #### B LDCX1 #### [facility] [address] [place] [address] Dr. Kerrie tSark Glucose [Mass/Vol] 398 mg/dL Critically high [address] [place] [address] Comment on above: Performed By: #### P OCGLUC #### [facility] [address] [place] [address] Dr. Kerrie Stark PROF CHEM 8 (BAS METB)on Anion gap [Moles/Vol] 17.2 mmol/L Normal [facility] Comment on above: Performed By: #### D DIM #### [facility] [address] [place] [address] Dr. Kerrie Stark Calcium [Mass/Vol] 9.0 mg/dL Normal 8.5-10.1 [facility] Comment on above: Performed By: #### D DIM #### [facility] [address] [place] [address] Dr. Kerrie Stark Chloride [Moles/Vol] 96 mmol/L Critically low 98-107 [facility] Comment on above: Performed By: #### D DIM #### [facility] [address] [address] [address] Kerrie Stark CO2 [Moles/Vol] 23.6 mmol/L Normal 21.0-32.0 [facility] Comment on above: Performed By: #### D DIM #### [facility] [address] [place] [address] Dr. Kerrie Stakr Creatinine [Mass/Vol] 1.41 mg/dL Critically high 0.70-1.30 [facility] Comment on above: Performed By: #### D DIM #### [facility] [address] [place] [address] Dr. Kerrie Stark EGFR-AF ANGOLAN 58 mL/min/1.73m2 Critically low >=60 [facility] Comment on above: Performed By: #### D DIM #### [facility] [address] [place] [address] Dr. Kerrie Stark EGFR-NON AF ANGOLAN 48 mL/min/1.73m2 Critically low >=60 [facility] Comment on above: Performed By: #### D DIM #### [facility] [address] [place] [address] Dr. Kerrie Stark Glucose [Mass/Vol] 151 mg/dL Critically high 74-106 [facility] Comment on above: Performed By: #### D DIM #### [facility] [address] [address] [address] Kerrie Stark Potassium [Moles/Vol] 3.8 mmol/L Normal 3.5-5.1 [facility] Comment on above: Performed By: #### D DIM #### [facility] [address] [place] [address] Dr. Kerrie Stark Sodium [Moles/Vol] 133 mmol/L Critically low 136-145 Th e [facility] Comment on above: Performed By: #### D DIM #### [facility] [address] [place], [place] [address] Dr. Kerrie Stark Urea nitrogen [Mass/Vol] 20.0 mg/dL Critically high 7.0-18.0 [facility] Comment on above: Performed By: #### D DIM #### [facility] [id number] Kerrie Stark Urea nitrogen/Creatinine [Mass ratio] 14.2 mg/mg Normal [facility] Comment on above: Performed By: #### D DIM #### [facility] [address] [place], [place] [address] Dr. Kerrie Stark XR CHEST 2 Von [...] by: PONCHO ROCHA Date: 2022-03-28 01:38 Normal [facility] Auth for Release of Medical Recordson 03-09-2022 Auth for Release of Medical Records [id number] #[id number] Normal [facility] Cult,Urineon 03-02-2022 Cult,Urine Specimen Description .CLEAN CATCH URINE Culture NO SIGNIFICANT GROWTH Report Status FINAL 03/02/2022 Normal [facility] Comment on above: Performed By: #### U RC #### [facility] [address] [place] [address] Weld Fitter: Sandip Smith MD [facility] [address] [place], [place] [id number] Weld Fitter: Ulisses Gaines MD Urinalysis w/ Microon 2022 Bacteria TRACE Abnormal NONE [facility] Comment on above: Performed By: #### U AMIC #### [facility] [address] [place], [place] [id number] Weld Fitter: Ulisses Gaines MD Bilirubin, SemiQt,Ur Negative Normal NEG [facility] Comment on above: Performed By: #### U AMIC #### [facility] [address] [place], [place] [id number] Weld Fitter: Ulisses Gaines MD Blood, Urine Negative Normal NEG [facility] Comment on above: Performed By: #### U AMIC #### [facility] [address] [place], [place] [id number] Weld Fitter: Ulisses Gaines MD Clarity (U) Clear Normal CLEAR [facility] Comment on above: Performed By: #### U AMIC #### [facility] [address] [place], [place] [id number] Weld Fitter: Ulisses Gaines MD Color (U) Yellow Normal YEL [facility] Comment on above: Performed By: #### U AMIC #### [facility] [address] [place], [place] [id number] Weld Fitter: Ulisses Gaines MD Epithelial cells LM Ql (Urine sed) 0 TO 2 Normal 0-5 [facility] Comment on above: Performed By: #### U AMIC #### [facility] [address] [place], [place] [id number] Weld Fitter: Ulisses Gaines MD Glucose Ql (U) Negative Normal NEG [facility] Comment on above: Performed By: #### U AMIC #### [facility] [address] [place] [address] Weld Fitter: Ulisses Gaines MD Ketones Ql (U) Negative Normal NEG [facility] [place] [facility] Comment on above: Performed By: #### U AMIC #### [facility] [address] [place] [address] Dr. [place], [place] [id number] Weld Fitter: Ulisses Gaines MD Leukocyte esterase Test strip Ql (U) Negative Normal NEG [facility] Comment on above: Performed By: #### U AMIC #### [facility] [address] [place] [address] Dr. [place], [place] [id number] Weld Fitter: Ulisses Gaines MD Nitrite,Ur Negative Normal NEG [facility] Comment on above: Performed By: #### U AMIC #### [facility] [address] [place] [address] [place] [address] Weld Fitter: Ulisses Gaines MD PH,Ur 6.0 Normal 5.0-9.0 [facility] Comment on above: Performed By: #### U AMIC #### [facility] [address] [place] [address] Dr. [place], [place] [id number] Weld Fitter: Ulisses Gaines MD Protein Ql (U) Negative Normal NEG [facility] Comment on above: Performed By: #### U AMIC #### [address] [place], [place] [id number] Weld Fitter: Ulisses Gaines MD Spec. [place],Ur 1.010 Normal 1.010-1.020 [facility] Comment on above: Performed By: #### U AMIC #### [facility] [address] [place] [address] Dr. [place], [place] [id number] Weld Fitter: Ulisses Gaines MD Urine RBC's None Normal 0-2 [facility] Comment on above: Performed By: #### U AMIC #### [facility] [address] [place] [address] [place] [address] Weld Fitter: Ulisses Gaines MD Urine WBC's None Normal 0-5 [facility] Comment on above: Performed By: #### U AMIC #### [facility] [address] [place] [address] Weld Fitter: Ulisses Gaines MD Urobilinogen,Ur Normal Normal NORM [facility] Comment on above: Performed By: #### U AMIC #### [facility] [address] [place] [address] Weld Fitter: Ulisses Gaines MD Urinalysis with Microscopico n 03-01-2022 Bacteria, UA TRACE Abnormal None [facility] Bilirubin Urine Negative NEGATIVE [facility] Color, UA Yellow Yellow [facility] Epithelial Cells UA 0 TO 2 [facility] Glucose, Ur Negative NEGATIVE [facility] Interpretation and review of laboratory results Abnormal [facility] Ketones Ql (U) Negative NEGATIVE [facility] Leukocyte esterase Test strip Ql (U) Negative NEGATIVE [facility] Nitrite, Urine Negative NEGATIVE [facility] pH, UA 6.0 5.0 - 9.0 [facility] Protein, UA Negative NEGATIVE [facility] RBC, UA None [facility] Specific [place], UA 1.010 1.010 - 1.020 [facility] Turbidity UA Clear Clear [facility] Urine Hgb Negative NEGATIVE [facility] Urobilinogen, Urine Normal Normal [facility] WBC, UA None [facility] GLYCOHEMOGLOBIN A1Con 2021 ADA RECOMMENDATION SEE BELOW Normal [facility] Comment on above: Result Comment: ADA RECOMMENDED LIMIT 4.0 - 6.0 ADA THERAPEUTIC TARGET < 7.0 ACTION SUGGESTED > 7.0 Performed By: #### P OCGLUC #### [facility] [address] [address] [address] Kerrie Stark Glucose [Mass/Vol] 146 mg/dL Normal [facility] Comment on above: Performed By: #### P OCGLUC #### [facility] [address] [address] [address] Kerrie Stark HbA1c (Bld) [Mass fraction] 6.7 % Critically high 4.5-6.2 [facility] Comment on above: Performed By: #### P OCGLUC #### [facility] [address] [address] [address] Kerrie Stark LIPID PROFILEon 02-01-2022 CHOL-HDL RATIO NORM SEE BELOW Normal [facility] Comment on above: Result Comment: 3.3 - 4.4 LOW RISK 4.4 - 7.1 AVERAGE RISK 7.1 - 11.0 MODERATE RISK >11.0 HIGH RISK Performed By: #### P OCGLUC #### [facility] [address] [address] [address] Kerrie Stark Cholesterol [Mass/Vol] 127 mg/dL Normal <=[address] [facility] Comment on above: Performed By: #### P OCGLUC #### [facility] [address] [address] [address] Kerrie Stark Cholesterol in HDL [Mass/Vol] 50 mg/dL Normal 40-60 [facility] Comment on above: Performed By: #### P OCGLUC #### [facility] [address] [address] [address] Kerrie Stark Cholesterol in LDL [Mass/Vol] 58.8 mg/dL Normal [facility] Comment on above: Performed By: #### P OCGLUC #### [facility] [address] [address] [address] Kerrie Stark Cholesterol.total/Chol esterol in HDL [Mass ratio] 2.5 {ratio} Normal [facility] Comment on above: Performed By: #### P OCGLUC #### [facility] [address] [address] [address] Kerrie Stark HDL NORMAL > or = 60 mg/dl - LOW CARDIOVASCULAR RISK <40 mg/dl - HIGH CARDIOVASCULAR RISK Normal [facility] Comment on above: Performed By: #### P OCGLUC #### [facility] [address] [address] [address] Kerrie Stark LDL CALC NORMAL SEE BELOW Normal [facility] Comment on above: Result Comment: <100 mg/dl OPTIMAL 100 - 129 mg/dl NEAR OR ABOVE OPTIMAL 130 - 159 mg/dl BORDERLINE HIGH 160 - 189 mg/dl HIGH >190 mg/dl VERY HIGH Performed By: #### P OCGLUC #### [facility] [address] [place] [address] Dr. Kerrie Stark Triglyceride [Mass/Vol] 91 mg/dL Normal <=150 [facility] Comment on above: Performed By: #### P OCGLUC #### [facility] [address] [address] [address] Kerrie Stark VLDL CALC 18.2 mg/dL Normal [facility] Comment on above: Performed By: #### P OCGLUC #### [facility] [address] [place] [address] Dr. Kerrie Stark PROF 14(COMP METB)on 022 Albumin [Mass/Vol] 3.8 g/dL Normal 3.4-5.0 [facility] Comment on above: Performed By: #### P OCGLUC #### [facility] [address] [place] [address] Dr. Kerrie Stark Albumin/Globulin [Mass ratio] 1.0 {ratio} Normal [facility] Comment on above: Performed By: #### P OCGLUC #### [facility] [address] [place] [address] Dr. Kerrie Stark ALP [Catalytic activity/Vol] 56 U/L Normal 46-116 [facility] Comment on above: Performed By: #### P OCGLUC #### [facility] [address] [place] [address] Dr. Kerrie Stark ALT [Catalytic activity/Vol] 30 U/L Normal 16-63 [facility] Comment on above: Performed By: #### P OCGLUC #### [facility] [address] [place] [address] Dr. Kerrie Stark Anion gap [Moles/Vol] 13.3 mmol/L Normal [facility] Comment on above: Performed By: #### P OCGLUC #### [facility] [address] [place] [address] Dr. Kerrie Stark AST [Catalytic activity/Vol] 26 U/L Normal 15-37 [facility] Comment on above: Performed By: #### P OCGLUC #### [facility] [address] [address] [address] Kerrie Stark Bilirubin [Mass/Vol] 0.7 mg/dL Normal 0.2-1.0 [facility] Comment on above: Performed By: #### P OCGLUC #### [facility] [address] [address] [address] Kerrie Stark Calcium [Mass/Vol] 9.0 mg/dL Normal 8.5-10.1 [facility] Comment on above: Performed By: #### P OCGLUC #### [facility] [address] [address] [address] Kerrie Stark Chloride [Moles/Vol] 105 mmol/L Normal 98-107 [facility] Comment on above: Performed By: #### P OCGLUC #### [facility] [address] [place] [address] Dr. Kerrie Stark CO2 [Moles/Vol] 28.3 mmol/L Normal 21.0-32.0 [facility] Comment on above: Performed By: #### P OCGLUC #### [facility] [address] [place] [address] Dr. Kerrie Stark Creatinine [Mass/Vol] 1.00 mg/dL Normal 0.70-1.30 [facility] Comment on above: Performed By: #### P OCGLUC #### [facility] [address] [place] [address] Dr. Kerrie Stark EGFR-AF ANGOLAN >60 Normal >=60 [facility] Comment on above: Performed By: #### P OCGLUC #### [facility] [address] [address] [address] Kerrie Stark EGFR-NON AF ANGOLAN >60 Normal >=60 [facility] Comment on above: Performed By: #### P OCGLUC #### [facility] [address] [place] [address] Dr. Kerrie Stark Globulin (S) [Mass/Vol] 3.7 g/dL Normal [facility] Comment on above: Performed By: #### P OCGLUC #### [facility] [address] [address] [address] Kerrie Stark Glucose [Mass/Vol] 150 mg/dL Critically high 74-106 [facility] Comment on above: Performed By: #### P OCGLUC #### [facility] [address] [address] [address] Kerrie Stark Potassium [Moles/Vol] 5.6 mmol/L Critically high 3.5-5.1 [facility] Comment on above: Performed By: #### P OCGLUC #### [facility] [address] [address] [address] Kerrie Stark Protein [Mass/Vol] 7.5 g/dL Normal 6.4-8.2 [facility] Comment on above: Performed By: #### P OCGLUC #### [facility] [address] [address] [address] Kerrie Stark Sodium [Moles/Vol] 141 mmol/L Normal 136-145 [facility] Comment on above: Performed By: #### P OCGLUC #### [facility] [address] [address] [address] Kerrie Stark Urea nitrogen [Mass/Vol] 18.0 mg/dL Normal 7.0-18.0 [facility] Comment on above: Performed By: #### P OCGLUC #### [facility] [address] [address] [address] Kerrie Stark Urea nitrogen/Creatinine [Mass ratio] 18.0 mg/mg Normal [facility] Comment on above: Performed By: #### P OCGLUC #### [facility] [address] [address] [address] Kerrie Stark Creatinine (Bld) [Mass/Vol]O rdered By: Oumar Haynes on 01-30-2022 Creatinine [Mass/Vol] 1.0 mg/dL 0.6-1.3 [facility] Comment on above: ER/ESD physician is notified/shown all ISTAT results.Critical values may be confirmed by laboratory testing ifdeemed necessary by ER attending doctor. No Panel InformationOrdered By: Oumar Haynes on 01-30-2022 POC Estimated GFR > 60 [facility] Comment on above: GFR estimated refere nce range: According to KDOQI guidelines, <60 ml/min/1.73m2 is sufficient to diagnose a patient with chronic kidney disease. POC Estimated GFR Non- Amer > 60 [facility] Auth for Release of Medical Recordson 12-22-2021 Auth for Release of Medical Records [id number] #1.00CD:127 Normal [facility] Formson 11-25-2021 Forms [id number] #1.00CD:127 Normal [facility] Patient Educationon 11-24-19 Patient Education Infectious [...] Follow these instructions at home: ? Take dbrr-lgz-stnpigm and prescription medicines only as told by [...] 04/20/2018 Docum (more content not included)... Normal [facility] Urology Office/Clinic Noteon 11-23-2021 Urology Office/Clinic [...] w 4 wks abx. side effects/risks discussed. 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 encouraged probiotics, metamucil, and yogurt to help w diarrhea. complete entire abx course. f/u in 2-3 mos to reassess Ordered: sulfamethoxazole-tri methoprim, 1 tab(s), Oral, BID for 4 week(s), 56 tab(s), Refill(s) 0, [id number], 180, cm, 11/23/21 10:01:00 EDT, Height/Length Dosing, 84, kg, 11/23/21 10:01:00 EDT, Weight Dosing E&M of New Patient Moderate 45-59 Min 43802 3. BPH with obstruction/lower urinary tract symptoms (N40.1: Benign prostatic hyperplasia with lower urinary tract symptoms) IPSS 4, QOL 1. on tamsulosin. s/p REZUM Dec 2017. overall pleased w urinary sx at baseline. dissatisfied with recent sx. Ordered: sulfamethoxazole-tri methoprim, 1 tab(s), Oral, BID for 4 week(s), 56 tab(s), Refill(s) 0, [id number], 180, cm, 11/23/21 10:01:00 EDT, Height/Length Dosing, 84, kg, 11/23/21 10:01:00 EDT, Weight Dosing E&M of New Patient Moderate 45-59 Min [id number] Orders: Urnls Dip Stick Auto w/o Microscopy POC [id number] Follow-up With When Contact Information MY GALDAMEZ, KONG Brown, URL Within 3 months [address] [place] [address] Additional Instructions: Patient Education Prostatitis Problem List/Past [...] Protein Urine Dipstick: Negative (11/23/21 09:44:00) Specific [place] Urine Dipstick: 1.015 (11/23/21 09 (more content not included)... Normal [facility] Comment on above: Result Comment: Elec tronically Signed By: MY GALDAMEZ, KONG Brown\.br\Date and Time Signed: 11/23/21 11:02 EDT Historical Records Officeon 11-01-2021 Historical Records Office [id number] #1.00CD:127 Normal [facility] FREE T3on 09-21-2021 FREE T3 1.88 pg/mlL Critically low 2.18-3.98 [facility] Comment on above: Performed By: #### P OCGLUC #### [facility] [address] [place] [address] Dr. Kerrie Stark FREE T4on 09-21-2021 Free T4 [Mass/Vol] 1.28 ng/dL Normal 0.76-1.46 [facility] Comment on above: Performed By: #### D DIM #### [facility] [address] [address] [address] Kerrie Stark TSHon 09-21-2021 TSH 0.625 uIU/mL Normal 0.358-3.740 [facility] Comment on above: Performed By: #### P OCGLUC #### [facility] [address] [place] [address] Dr. Kerrie Stark CTA Abdomen/Pelvis w/ and [...] by Harpal Crane on 08/11/2021 1410 Normal [facility] Specialist CREATININEon 08-03-2021 Creatinine [Mass/Vol] 0.98 mg/dL Normal 0.70-1.30 [facility] Comment on above: Performed By: #### L ACT #### [facility] [address] [address] [address] Kerrie Stark EGFR-AF ANGOLAN >60 Normal >=60 [facility] Comment on above: Performed By: #### L ACT #### [facility] [address] [address] [address] Kerrie Stark EGFR-NON AF ANGOLAN >60 Normal >=60 [facility] Comment on above: Performed By: #### L ACT #### [facility] [address] [address] [address] Kerrie Stark GLYCOHEMOGLOBIN A1Con 2021 ADA RECOMMENDATION SEE BELOW Normal [facility] Comment on above: Result Comment: ADA RECOMMENDED LIMIT 4.0 - 6.0 ADA THERAPEUTIC TARGET < 7.0 ACTION SUGGESTED > 7.0 Performed By: #### P OCGLUC #### [facility] [address] [address] [address] Kerrie Stark Glucose [Mass/Vol] 146 mg/dL Normal [facility] Comment on above: Performed By: #### P OCGLUC #### [facility] [address] [address] [address] Kerrie Stark HbA1c (Bld) [Mass fraction] 6.7 % Critically high 4.5-6.2 [facility] Comment on above: Performed By: #### P OCGLUC #### [facility] [address] [address] [address] Kerrie Stark Vital Signs Date Time Vital Sign Value Performing Clinician Facility 07-17-2024 08:48-0400 Body height 180.3 cm Crystal Mcdermott MD Work Phone: [facility] 07-17-2024 08:48-0400 Body mass index (BMI) [Ratio] 25.8 kg/m2 Crystal Mcdermott MD Work Phone: [facility] 07-17-2024 08:48-0400 Body temperature 97.7 [degF] Crystal Mcdermott MD Work Phone: [facility] 07-17-2024 08:48-0400 Body weight 83.92 kg Crystal Mcdermott MD Work Phone: [facility] 07-17-2024 08:48-0400 Diastolic blood pressure 75 mm[Hg] Crystal Mcdermott MD Work Phone: [facility] 07-17-2024 08:48-0400 Heart rate 63 /min Crystal Mcdermott MD Work Phone: [facility] 07-17-2024 08:48-0400 SaO2% (BldA) [Mass fraction] 97 % Crystal Mcdermott MD Work Phone: [facility] 07-17-2024 08:48-0400 Systolic blood pressure 130 mm[Hg] Crystal Mcdermott MD Work Phone: [facility] 07-04-2024 13:22-0400 Body height 177.8 cm Urban Mae DPM Work Phone: [facility] 07-04-2024 13:22-0400 Body mass index (BMI) [Ratio] 26.98 kg/m2 Urban Mae DPM Work Phone: [facility] 07-04-2024 13:22-0400 Body weight 85.28 kg Urban Mae DPM Work Phone: [facility] 07-04-2024 13:22-0400 Respiratory rate 16 /min Urban Mae DPM Work Phone: [facility] 07-02-2024 11:30-0400 Body height 177.8 cm Clayton Mcfadden MD Work Phone: [facility] 07-02-2024 11:30-0400 Body mass index (BMI) [Ratio] 26.98 kg/m2 Clayton Mcfadden MD Work Phone: [facility] 07-02-2024 11:30-0400 Body weight 85.28 kg Clayton Mcfadden MD Work Phone: [facility] 06-03-2024 10:03-0400 Body height 177.8 cm Clayton Mcfadden MD Work Phone: [facility] 06-03-2024 10:03-0400 Body mass index (BMI) [Ratio] 24.68 kg/m2 Clayton Mcfadden MD Work Phone: [facility] 06-03-2024 10:03-0400 Body weight 78.02 kg Clayton Mcfadden MD Work Phone: [facility] 06-03-2024 10:03-0400 Diastolic blood pressure 80 mm[Hg] Clayton Mcfadden MD Work Phone: [facility] 06-03-2024 10:03-0400 Heart rate 80 /min Clayton Mcfadden MD Work Phone: [facility] 06-03-2024 10:03-0400 SaO2% (BldA) [Mass fraction] 97 % Clayton Mcfadden MD Work Phone: [facility] 06-03-2024 10:03-0400 Systolic blood pressure 134 mm[Hg] Clayton Mcfadden MD Work Phone: [facility] 04-09-2024 14:31-0500 Body height 180.3 cm Clayton Mcfadden MD Work Phone: [facility] 04-09-2024 14:31-0500 Body mass index (BMI) [Ratio] 25.52 kg/m2 Clayton Mcfadden MD Work Phone: [facility] 04-09-2024 14:31-0500 Body weight 83.01 kg Clayton Mcfadden MD Work Phone: [facility] 04-09-2024 14:31-0500 Heart rate 76 /min Clayton Mcfadden MD Work Phone: [facility] 04-09-2024 14:31-0500 SaO2% (BldA) [Mass fraction] 92 % Clayton Mcfadden MD Work Phone: [facility] 01-03-2024 10:41-0500 Body height 180.3 cm Clayton Mcfadden MD Work Phone: [facility] 01-03-2024 10:41-0500 Body mass index (BMI) [Ratio] 26.36 kg/m2 Clayton Mcfadden MD Work Phone: [facility] 01-03-2024 10:41-0500 Body temperature 98.1 [degF] Clayton Mcfadden MD Work Phone: [facility] 01-03-2024 10:41-0500 Body weight 85.73 kg Clayton Mcfadden MD Work Phone: [facility] 01-03-2024 10:41-0500 Heart rate 61 /min Clayton Mcfadden MD Work Phone: [facility] 01-03-2024 10:41-0500 SaO2% (BldA) [Mass fraction] 92 % Clayton Mcfadden MD Work Phone: [facility] 12-17-2023 14:55-0400 Body height 180.3 cm Clayton Mcfadden MD Work Phone: [facility] 12-17-2023 14:55-0400 Body mass index (BMI) [Ratio] 26.36 kg/m2 Clayton Mcfadden MD Work Phone: [facility] 12-17-2023 14:55-0400 Body weight 85.73 kg Clayton Mcfadden MD Work Phone: [facility] 11-12-2023 10:38-0400 Body height 180.3 cm Clayton Mcfadden MD Work Phone: [facility] 11-12-2023 10:38-0400 Body mass index (BMI) [Ratio] 26.36 kg/m2 Clayton Mcfadden MD Work Phone: [facility] 11-12-2023 10:38-0400 Body weight 85.73 kg Clayton Mcfadden MD Work Phone: [facility] 11-12-2023 10:38-0400 Diastolic blood pressure 80 mm[Hg] Clayton Mcfadden MD Work Phone: [facility] 11-12-2023 10:38-0400 Heart rate 62 /min Clayton Mcfadden MD Work Phone: [facility] 11-12-2023 10:38-0400 SaO2% (BldA) [Mass fraction] 97 % Clayton Mcfadden MD Work Phone: [facility] 11-12-2023 10:38-0400 Systolic blood pressure 130 mm[Hg] Clayton Mcfadden MD Work Phone: [facility] 01-31-2023 10:00-0500 Body height 175.26 cm Horace Jasso Other [employer] Other 01-31-2023 10:00-0500 Body mass index (BMI) [Ratio] 27.32 kg/m2 Horace Jasso Other [employer] Other 01-31-2023 10:00-0500 Body temperature 97.6 [degF] Horace Jasso Other [employer] Other 01-31-2023 10:00-0500 Body weight 83.92 kg Horace Jasso Other [employer] Other 01-31-2023 10:00-0500 Diastolic blood pressure 64 mm[Hg] Horace Jasso Other [employer] Other 01-31-2023 10:00-0500 SaO2% (BldA) [Mass fraction] 94 % Horace Jasso Other [employer] Other 01-31-2023 10:00-0500 Systolic blood pressure 108 mm[Hg] Horace Jasso Other [employer] Other 03-27-2022 23:40-0500 Diastolic blood pressure 78 mm[Hg] Et[facility] [employer] 03-27-2022 23:40-0500 Heart rate 121 /min Et3 [facility] [employer] 03-27-2022 23:40-0500 Respiratory rate 22 /min Et3 [employer] 02-06-2023 23:40-0500 SaO2% (BldA) [Mass fraction] 92 % [facility] 03-27-2022 23:40-0500 Systolic blood pressure 137 mm[Hg] [facility] 01-31-2022 12:00-0500 Body height 175.26 cm 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 Other [employer] Other 01-31-2022 12:00-0500 Body mass index (BMI) [Ratio] 27.32 kg/m2 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 Other [employer] Other 01-31-2022 12:00-0500 Body temperature 96.4 [degF] Yolette Thompsonriveramiguel Other [employer] Other 01-31-2022 12:00-0500 Body weight 83.92 kg Yolette Thompsonriveramiguel Other [employer] Other 01-31-2022 12:00-0500 Diastolic blood pressure 72 mm[Hg] Yolette Thompsonyusuf Other [employer] Other 01-31-2022 12:00-0500 SaO2% (BldA) [Mass fraction] 97 % Yolette Thompsonyusuf Other [employer] Other 01-31-2022 12:00-0500 Systolic blood pressure 120 mm[Hg] Yolette Thompsonyusuf Other [employer] Other 11-23-2021 09:59-0400 Blood Pressure Location KONG PEPE [facility] 11-23-2021 09:59-0400 Diastolic blood pressure 70 mm[Hg] KONG PEPE [facility] 11-23-2021 09:59-0400 Heart rate 66 /min KONG PEPE [facility] 11-23-2021 09:59-0400 Systolic blood pressure 132 mm[Hg] KONG PEPE [facility] 08-16-2021 12:45-0400 Body height 175.26 cm Oumar Haynes Other [employer] Other 08-16-2021 12:45-0400 Body mass index (BMI) [Ratio] 27.32 kg/m2 Oumar Haynes Other [employer] Other 08-16-2021 12:45-0400 Body temperature 96.9 [degF] Oumar Haynes Other [employer] Other 08-16-2021 12:45-0400 Body weight 83.92 kg Oumar Haynes Other [employer] Other 08-16-2021 12:45-0400 Diastolic blood pressure 78 mm[Hg] Oumar Haynes Other [employer] Other 08-16-2021 12:45-0400 SaO2% (BldA) [Mass fraction] 95 % Oumar Haynes Other [employer] Other 08-16-2021 12:45-0400 Systolic blood pressure 110 mm[Hg] Oumar Haynes Other [employer] Other Encounters Encounter Date Encounter Type Care Provider Facility Start: 07-17-2024 End: 07-17-2024 Office outpatient new 45 minutes Crystal Mcdermott MD Work Phone: [facility] Comment on above: Acute deep vein thro mbosis (DVT) of left femoral vein ([facility]) (Primary Dx) Start: 07-17-2024 End: 07-17-2024 ambulatory CRYSTAL MCDERMOTT [facility] Start: 07-10-2024 End: 07-10-2024 ambulatory CLAYTON MCFADDEN Not Available Start: 07-07-2024 End: 07-07-2024 Telephone encounter Radhika Phoenix [facility] Start: 07-04-2024 End: 07-04-2024 Bamboo flowsheet Urban Mae DPM Work Phone: [facility] Start: 07-04-2024 End: 07-04-2024 Bamboo flowsheet Urban Mae DPM Work Phone: [facility] Start: 07-04-2024 End: 07-04-2024 Patient encounter procedure Urban Mae DPM Work Phone: [facility] Comment on above: Diabetes mellitus du e to underlying condition with diabetic polyneuropathy, without long-term current use of insulin ([facility]) (Primary Dx); Pain due to onychomycosis of toenails of both feet; Contusion of left foot, initial encounter Start: 07-04-2024 End: 07-04-2024 ambulatory URBAN MAE Not Available Start: 07-02-2024 End: 07-02-2024 Bamboo flowsheet Clayton Mcfadden MD Work Phone: [facility] Start: 07-02-2024 End: 07-02-2024 Bamboo flowsheet Clayton Mcfadden MD Work Phone: [facility] Start: 07-02-2024 End: 07-02-2024 Office outpatient visit 25 minutes Clayton Mcfadden MD Work Phone: [facility] Comment on above: Acute leg pain, left ; Left leg swelling Start: 07-02-2024 End: 07-02-2024 ambulatory CLAYTON MCFADDEN Not Available Start: 06-10-2024 End: 06-10-2024 ambulatory Briseida Paez RN Work Phone: [facility] Start: 06-03-2024 End: 06-03-2024 Bamboo flowsheet Clayton Mcfadden MD Work Phone: [facility] Start: 06-03-2024 End: 06-03-2024 Bamboo flowsnikole Mcfadden MD Work Phone: [facility] Start: 06-03-2024 End: 06-03-2024 Office outpatient visit 25 minutes Clayton Mcfadden MD Work Phone: [facility] Comment on above: Benign essential hyp ertension (CMS/HCC); Hypertensive nephropathy (CMS/HCC); Stage 3a chronic kidney disease (HCC) ([facility]/HCC); Microalbuminuria; Mixed hyperlipidemia ([facility]/HCC); Type 2 diabetes mellitus with stage 3a chronic kidney disease, with long-term current use of insulin (HCC) ([facility]/HCC); Type 2 diabetes mellitus with hyperglycemia, with long-term current use of insulin ([facility]/HCC); Ex-smoker; Polypharmacy; Hyperuricemia Start: 06-03-2024 End: 06-03-2024 ambulatory CLAYTON MCFADDEN Not Available Start: 2024 End: 2024 ambulatory URBAN MAE Not Available Start: 04-23-2024 End: 04-23-2024 Bamboo flowsnikole Mcfadden MD Work Phone: [facility] Start: 04-23-2024 End: 04-23-2024 Bamboo flowsnikole Mcfadden MD Work Phone: [facility] Start: 04-23-2024 End: 04-23-2024 ambulatory CLAYTON MCFADDEN Not Available Start: 04-15-2024 End: 04-15-2024 ambulatory CLAYTON MCFADDEN Not Available Start: 04-09-2024 End: 04-09-2024 Transitional care manage srvc 7 day discharge Clayton Mcfadden MD Work Phone: [facility] Comment on above: Pneumonia of right l ower lobe due to infectious organism (Primary Dx); Acute hypoxic respiratory failure (CMS/HCC); Acute exacerbation of chronic obstructive pulmonary disease (COPD) (CMS/HCC); Type 2 diabetes mellitus with hyperglycemia, with long-term current use of insulin (CMS/HCC); Benign essential hypertension (CMS/HCC); Encounter for examination following treatment at hospital; Thrush; Noncompliance by declining service; Overweight Start: 04-09-2024 End: 04-09-2024 ambulatory CLAYTON MCFADDEN Not Available Start: 04-09-2024 End: 04-09-2024 Bamboo flowsheet Clayton Mcfadden MD Work Phone: [facility] Start: 04-09-2024 End: 04-09-2024 Bamboo flowsheet Clayton Mcfadden MD Work Phone: [facility] Start: 04-02-2024 End: 04-04-2024 Clinisync Result Encounter Generic External Data Provider [facility] External Department Unsolicited Start: 04-02-2024 End: 04-04-2024 Clinisync Result Encounter Generic External Data Provider [facility] External Department Unsolicited Start: 03-24-2024 End: 03-24-2024 Clinisync Result Encounter Generic External Data Provider [facility] External Department Unsolicited Start: 03-24-2024 End: 03-24-2024 Clinisync Result Encounter Generic External Data Provider [facility] External Department Unsolicited Start: 01-09-2024 End: 01-09-2024 Dona Paez RN Work Phone: [facility] Comment on above: 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, with long-term current use of insulin (HCC) (CMS/HCC) (Primary Dx); Gastroesophageal reflux disease without esophagitis; Acquired hypothyroidism (CMS/HCC) Start: 01-03-2024 End: 01-03-2024 ambulatory CLAYTON MCFADDEN Not Available Start: 01-03-2024 End: 01-03-2024 Office outpatient visit 25 minutes Clayton Mcfadden MD Work Phone: [facility] Comment on above: Acute exacerbation o f chronic obstructive pulmonary disease (COPD) (CMS/HCC) (Primary Dx); Interstitial lung disease (CMS/HCC); Panlobular emphysema (CMS/HCC); Polypharmacy Start: 12-17-2023 End: 12-17-2023 Office outpatient [...] aneurysm, without rupture (CMS/HCC); Atherosclerosis of aorta (CMS/HCC) Start: 11-12-2023 End: 11-12-2023 ambulatory CLAYTON MCFADDEN Not Available Start: 11-06-2023 End: 11-06-2023 Clinisync Result Encounter Clayton Mcfadden MD Work Phone: [facility] External [facility] Unsolicited Start: 11-06-2023 End: 11-06-2023 Clinisync Result Encounter Clayton Mcfadden MD Work Phone: [facility] External Department Unsolicited Start: 03-28-2023 Refill Clayton diez MD Work Phone: [facility] Comment on above: 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, with long-term current use of insulin (HCC) ([facility]/HCC) Start: 01-31-2023 Office outpatient vi sit 15 minutes Horace ALMANZA [facility] Start: 01-31-2023 End: 01-31-2023 ambulatory 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 Facility:[facility] Start: 01-31-2023 End: 01-31-2023 ambulatory MD Clayton Mcfadden Work Phone: [facility] Other Start: 01-31-2023 End: 01-31-2023 Patient encounter procedure MD Clayton Mcfadden Work Phone: [facility] Start: 12-01-2022 End: 12-01-2022 ambulatory [facility]TON [facility] Start: 10-03-2022 End: 10-03-2022 ambulatory CLAYTON MCFADDEN [facility] Start: 08-28-2022 End: 08-29-2022 ambulatory CLAYTON [facility] Start: 08-09-2022 End: 08-10-2022 ambulatory CLAYTON MCFADDEN [facility] Start: 08-09-2022 End: 08-09-2022 Subsequent hospital visit by physician Clayton Mcfadden MD Work Phone: [facility] Laboratory Comment on above: Dysuria; Frequency of micturition Start: 07-03-2022 End: 07-04-2022 ambulatory ZOILA JAVED . Facility:[facility] Start: 06-26-2022 End: 06-27-2022 ambulatory ZOILA JAVED . Facility:[facility] Start: 06-14-2022 End: 06-15-2022 ambulatory CLAYTON [facility] Start: 04-24-2022 End: 05-18-2022 ambulatory THELMA BETTS Facility:[facility] Start: 04-19-2022 End: 04-19-[address] CLAYTON MCFADDEN . Facility:[facility] Start: 04-05-2022 End: 04-08-2022 Evaluation and management of inpatient GABRIELA BENNETT . Facility:[facility] Start: 04-05-2022 End: 04-06-[address] CLAYTON MCFADDEN . Facility:[facility] Start: 03-30-2022 End: 06-29-2022 ambulatory UNKNOWN PROVIDER Facility:[facility] Start: 03-28-2022 End: 03-29-2022 ambulatory SHAIKH Matilde LAU Facility:[facility] Start: 03-27-2022 End: 03-27-2022 ambulatory [facility] Triage, Treat and Transport Start: 03-27-2022 End: 03-27-2022 Emergency department patient visit [facility] Emergency Triage, Treat and Transport Comment on above: Arrived Start: 03-02-2022 End: 03-03-[address] CLAYTON MCFADDEN . Facility:[facility] Start: 03-01-2022 End: 03-02-2022 ambulatory ERICA VERAS [facility] Start: 03-01-2022 End: 03-01-2022 Subsequent hospital visit by physician Clayton Mcfadden MD Work Phone: [facility] Comment on above: BPH with obstruction /lower urinary tract symptoms; Dysuria Start: 02-22-2022 ambulatory KONG Anaya ty:KENNY Ruiz Start: 02-20-[address] CLAYTON MCFADDEN . Fac ility:[facility] Start: 02-06-2022 End: 02-07-[address] CLAYTON MCFADDEN . Facility:[facility] Start: 02-06-2022 End: 02-06-[address] CLAYTON MCFADDEN . Facility:[facility] Start: 02-01-2022 End: 02-02-[address] CLAYTON MCFADDEN . Facility:[facility] Start: 01-31-2022 End: 01-31-2022 ambulatory 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 Other [employer] Other Start: 01-31-2022 Follow-up encounter Yolette Rosenberg [facility] Start: 01-30-2022 End: 01-30-2022 ambulatory MD Clayton Mcfadden Work Phone: [facility] Work Phone: Start: 01-30-2022 End: 01-30-2022 Patient encounter procedure MD Clayton Mcfadden Work Phone: [facility]CT Scan [facility] [place] Start: 11-23-2021 End: 11-24-2021 ambulatory KONG Brown MY Facility:[facility] Start: 11-23-2021 End: 11-23-2021 Patient encounter procedure KONG PEPE [facility] Start: 09-21-2021 End: 09-22-[address] CLAYTON MCFADDEN . Facility: Start: 08-19-[address] CLAYTON MCFADDEN . Fac ility:[facility]1 Start: 08-16-2021 End: 08-16-2021 ambulatory Oumar Haynes Other [employer] Other Start: 08-16-2021 Office outpatient ne w 45 minutes Oumar Haynes [facility] Vascular Surgery Start: 08-03-2021 End: 08-04-[address] CLAYTON MCFADDEN . Facility: Procedures Date Procedure Procedure Detail Performing Clinician Start: 07-02-2024 Dup-scan xtr veins unilateral/limited study Clayton Mcfadden MD Work Phone: Start: 04-02-2024 AEROBE ID + SUSCEPT Gen alberta External Data Provider Start: 04-02-2024 ANAEROBE IDENTIFICAT ION ONLY Generic External Data Provider Start: 03-24-2024 XR CHEST 2V Generic Ex ternal Data Provider Start: 12-17-2023 Urnls dip stick/tabl et rgnt non-auto w/o micrscp Clayton Mcfadden MD Work Phone: Start: 11-06-2023 MLR HEMOGLOBIN A1C Pawan Mcfadden MD Work Phone: Start: 01-31-2023 US scan of aorta MD Sang Mcfadden Work Phone: Start: 03-02-[address] CLAYTON MCFADDEN . Comment on above: Performed By: #### P OCGLUC #### [facility] [address] [address] [address] Kerrie Stark Start: 03-01-2022 Urnls dip stick/tabl et reagent auto microscopy Erica Veras MD Work Phone: Start: 01-30-2022 Computed tomography angiography of abdominal and/or pelvic blood vessel MD Clayton Mcfadden Work Phone: Start: 12-24-2017 Cystoscopy KONG BRITO Start: 02-19-1977 H/O: vasectomy KONG PEPE Plan of Treatment Date Care Activity Detail Author Start: 05-26-2026 Glaucoma screening Diabetes: R etinopathy Screening [facility] Start: 07-17-2025 Tobacco Screening Tobacco Screening [facility] Start: 05-21-2025 Glaucoma screening Diabetes: R etinopathy Screening [facility] Start: 03-24-2025 Urine screening for protein Diabetes: Urine Protein Screening [facility] Start: 11-26-2024 End: 11-26-2024 Patient encounter procedure 11/26/2024 2:00 PM EDT Office Visit [facility] [address] [facility] [address] [place] [address] Clayton Mcfadden MD [address] [facility] [address] [place] [address] (Fax) [facility] Start: 10-20-2024 Influenza vaccination Influenza Vacc ine [facility] Start: 09-12-2024 End: 09-12-2024 Patient encounter procedure 09/12/2024 1:30 PM EDT Office Visit [facility] [address] [place] [id number] Urban Mae DPM [address] [address] [facility] Start: 07-10-2024 End: 07-10-2024 Patient encounter procedure 07/10/2024 9:30 AM EDT Office Visit [facility] [address] [facility] [address] [place] [address] Clayton Mcfadden MD [address] [place] [address] (Fax) [facility] Start: 07-04-2024 End: 07-04-2024 Patient encounter procedure [facility] Comment on above: Diabetes mellitus du e to underlying condition with diabetic polyneuropathy, without long-term current use of insulin (CMS/HCC) (Primary Dx); Pain due to onychomycosis of toenails of both feet; Contusion of left foot, initial encounter Start: 07-02-2024 End: 07-02-2024 Patient encounter procedure 07/02/2024 11:45 AM EDT Office Visit [facility] [address] [facility] 100 [place] [address] Clayton Mcfadden MD [address] [place] [address] (Fax) Arrived [facility] Comment on above: Arrived Start: 06-03-2024 End: 06-03-2025 Comprehensive metabolic 2000 panel - Serum or Plasma Comprehensive metabolic panel Lab Routine Benign essential hypertension (CMS/HCC) Hypertensive nephropathy (CMS/HCC) Stage 3a chronic kidney disease (HCC) (CMS/HCC) Type 2 diabetes mellitus with stage 3a chronic kidney disease, with long-term current use of insulin (HCC) (CMS/HCC) Expected: 06/03/2024 (Approximate), Expires: 06/03/2025 [facility] Work Phone: Comment on above: Expected: 06/03/2024 (Approximate), Expires: 06/03/2025 Start: 06-03-2024 End: 06-03-2025 Hemoglobin A1c/Hemoglobin.total in Blood Hemoglobin A1c Lab Routine Type 2 diabetes mellitus with stage 3a chronic kidney disease, with long-term current use of insulin ([facility]) ([facility]) Expected: 06/03/2024 (Approximate), Expires: 06/03/2025 [facility] Comment on above: Expected: 06/03/2024 (Approximate), Expires: 06/03/2025 Start: 06-03-2024 End: 06-03-2025 Lipid 1996 panel - Serum or Plasma Lipid panel Lab Routine Mixed hyperlipidemia ([facility]) Expected: 06/03/2024 (Approximate), Expires: 06/03/2025 [facility] Comment on above: Expected: 06/03/2024 (Approximate), Expires: 06/03/2025 Start: 06-03-2024 End: 06-03-2024 Patient encounter procedure [facility] Comment on above: Benign essential hyp ertension ([facility]); Hypertensive nephropathy ([facility]); Stage 3a chronic kidney disease ([facility]) ([facility]); Microalbuminuria; Mixed hyperlipidemia ([facility]); Type 2 diabetes mellitus with stage 3a chronic kidney disease, with long-term current use of insulin ([facility]) ([facility]); Type 2 diabetes mellitus with hyperglycemia, with long-term current use of insulin ([facility]); Ex-smoker; Polypharmacy Start: 05-07-2024 Hemoglobin A1c measurement Diabetes: Hemoglobin A1C [facility] Start: 04-23-2024 End: 04-23-2024 Patient encounter procedure [facility] Comment on above: Arrived Start: 04-14-2024 End: 04-14-2024 Telemedicine consultation with patient [facility] Comment on above: Acquired hypothyroid ism ([facility]); Chronic fatigue; Gastroesophageal reflux disease without esophagitis; Hyperuricemia; Polypharmacy; Overweight Start: 04-09-2024 End: 04-09-2024 Patient encounter procedure 04/09/2024 2:30 PM EST Office Visit [facility] [address] [place] [address] [place] [address] Clayton Mcfadden MD [address] [facility] [address] [place] [address] (Fax) Encounter for examination following treatment at hospital; Pneumonia of right lower lobe due to infectious organism; Acute hypoxic respiratory failure ([facility]/HCC); Acute exacerbation of chronic obstructive pulmonary disease (COPD) ([facility]/HCC); Controlled type 2 diabetes mellitus with hyperglycemia, with long-term current use of insulin ([facility]/HCC); Benign essential hypertension ([facility]/HCC); Overweight [facility] Comment on above: Encounter for examin ation following treatment at hospital; Pneumonia of right lower lobe due to infectious organism; Acute hypoxic respiratory failure (CMS/HCC); Acute exacerbation of chronic obstructive pulmonary disease (COPD) ([facility]/HCC); Controlled type 2 diabetes mellitus with hyperglycemia, with long-term current use of insulin ([facility]/HCC); Benign essential hypertension ([facility]/HCC); Overweight Start: 03-14-2024 Urine screening for protein Diabetes: Urine Protein Screening [facility] Start: 03-06-2024 Glaucoma screening Diabetes: R etinopathy Screening [facility] Start: 11-18-2023 Hemoglobin A1c measurement Diabetes: Hemoglobin A1C [facility] Start: 11-12-2023 End: 11-12-2023 Patient encounter procedure [facility] Comment on above: Benign essential hyp ertension ([facility]/HCC); Hypertensive nephropathy ([facility]/HCC); Stage 3a chronic kidney disease (HCC) ([facility]); Microalbuminuria; Type 2 diabetes mellitus with stage 3a chronic kidney disease, with long-term current use of insulin (HCC) ([facility]); Mixed hyperlipidemia ([facility]); Hyperuricemia; Hypomagnesemia; Polypharmacy; Ex-smoker; Overweight Start: 10-21-2023 COVID-19 Vaccine ( season) COVID-19 Vaccine ( season) [facility] Start: 10-21-2023 Influenza vaccination Influenza Vacc ine (#1) [facility] Start: 05-22-2023 End: 05-22-2023 Patient encounter procedure 05/22/2023 11:00 AM EDT Office Visit [facility] [address] [place] [address] Clayton Mcfadden MD [address] [place] [address] (work) [facility] Start: 03-28-2023 Urine screening for protein Diabetes: Urine Protein Screening [facility] Start: 01-23-2023 Hemoglobin A1c measurement Diabetes: Hemoglobin A1C [facility] Start: 09-20-2022 End: 09-20-2022 Patient encounter procedure 09/20/2022 Office Visit [facility] Start: 03-20-2022 End: 03-20-2022 Patient encounter procedure 03/20/2022 Procedure visit [facility] Start: 03-01-2022 Annual Wellness Visi t (AWV) Annual Wellness Visit (AWV) [facility] Start: 11-19-2021 Influenza vaccination Influenza Vacc ine (#1) [facility] Start: 09-19-2021 Influenza vaccination Flu vaccine (# 1) [facility] Start: 01-29-2021 COVID-19 Vaccine (4 - Booster for Pfizer series) COVID-19 Vaccine (4 - Booster for Pfizer series) [facility] Start: 02-18-2014 Administration of varicella zoster vaccine Zoster (Shingles) Vaccine (2 of 3) [facility] Start: 02-18-2014 Shingles vaccine (2 of 3) Shingles vaccine (2 of 3) [facility] Start: 2005 Fall Risk Screening Fall Risk Screen ing [facility] Start: 2005 Pneumococcal 65+ yea rs Vaccine (1 - PCV) Pneumococcal 65+ years Vaccine (1 - PCV) [facility] Start: 2005 Pneumococcal vaccination Pneum ococcal Vaccine(s) (65+ yrs) (1 - PCV) [facility] Start: 1990 Administration of varicella zoster vaccine Zoster (Shingles) Vaccine (1 of 2) [facility] Start: 1990 Shingles (RZV) Vacci ne (1 of 2) Shingles (RZV) Vaccine [facility] Start: 1990 Shingles vaccine (1 of 2) Shingles vaccine (1 of 2) [facility] Start: 04-26-1959 DTaP,Tdap and Td Vaccines (1 - Tdap) DTaP,Tdap and Td Vaccines (1 - Tdap) [facility] Start: 04-26-1959 DTaP/Tdap/Td vaccine (1 - Tdap) DTaP/Tdap/Td vaccine (1 - Tdap) [facility] Start: 1958 Tetanus + diphtheria + acellular pertussis vaccine (product) Tdap [facility]oster [facility] Start: 1952 Depression Screen Depression Screen [facility] Start: 1952 Depression Screening Depression Scre ening [facility] Start: 1952 Tobacco Screening Tobacco Screening [facility] Start: 1950 Lipid panel Lipids [facility] Start: 1940 COVID-19 Vaccine (#1) COVID-19 Vacci ne (#1) [facility] AEROBE ID + SUSCEPT AEROBE ID + SUSCEPT Lab Routine 04/02/2024 10:09 AM EST [facility] ANAEROBE IDENTIFICAT ION ONLY ANAEROBE IDENTIFICATION ONLY Lab Routine 04/02/2024 10:09 AM EST [facility] End: 03-01-2022 Culture, Urine [facility] Work Phone: Comment on above: 1 Occurrences starti ng 03/01/2022 until 03/01/2022 End: 08-09-2022 Culture, Urine [facility] Comment on above: 1 Occurrences starti ng 08/09/2022 until 08/09/2022 Immunizations Immunization Date Immunization Notes Care Provider [facility] 12-27-2023 influenza, seasonal, injectable Briseida Paez RN Work Phone: [facility] 12-27-2023 influenza virus vacc ine, unspecified formulation Crystal Mcdermott MD Work Phone: [facility] 12-04-2022 Influenza, Seasonal, Quadrivalent, Adjuvanted Clayton Mcfadden MD Work Phone: [facility] 12-04-2022 influenza virus vacc ine, unspecified formulation Clayton Mcfadden MD Work Phone: [facility] 12-08-2021 influenza, injectabl e, quadrivalent, preservative free Clayton Mcfadden MD Work Phone: [facility] 12-08-2021 Influenza, Seasonal, Quadrivalent, Adjuvanted Clayton Mcfadden MD Work Phone: [facility] 12-04-2020 influenza, high dose seasonal, preservative-free Clayton Mcfadden MD Work Phone: [facility] 12-04-2020 Influenza, High-dose Seasonal, Quadrivalent, Preservative Free Clayton Mcfadden MD Work Phone: [facility] 11-29-2019 influenza, injectabl e, quadrivalent, preservative free Clayton Mcfadden MD Work Phone: [facility] 10-15-2019 influenza, high dose seasonal, preservative-free Clayton Mcfadden MD Work Phone: [facility] 11-07-2018 influenza, injectabl e, quadrivalent, preservative free Clayton Mcfadden MD Work Phone: [facility] 11-07-2018 Seasonal trivalent influenza vaccine, adjuvanted, preservative free Clayton Mcfadden MD Work Phone: [facility] 11-23-2017 influenza, high dose seasonal, preservative-free Claytno Mcfadden MD Work Phone: [facility] 11-23-2017 influenza, injectabl e, quadrivalent, preservative free Clayton Mcfadden MD Work Phone: [facility] 01-31-2017 pneumococcal conjuga te vaccine, 13 valent Clayton Mcfadden MD Work Phone: [facility] 01-19-2017 pneumococcal conjuga te vaccine, 13 valent Clayton Mcfadden MD Work Phone: [facility] 01-17-2017 influenza, high dose seasonal, preservative-free Clayton Mcfadden MD Work Phone: [facility] 01-12-2016 pneumococcal polysaccharide vaccine, 23 valent Clayton Mcfadden MD Work Phone: [facility] 12-16-2015 influenza, high dose seasonal, preservative-free Clayton Mcfadden MD Work Phone: [facility] 01-08-2015 influenza, injectabl e, quadrivalent, preservative free Clayton Mcfadden MD Work Phone: [facility] 01-08-2015 influenza, seasonal, injectable, preservative free Clayton Mcfadden MD Work Phone: [facility] 12-24-2013 zoster vaccine, live Clayton Mcfadden MD Work Phone: [facility] 12-24-2013 zoster vaccine, unspecified formulation Crystal Mcdermott MD Work Phone: [facility] 08-06-2013 pneumococcal polysaccharide vaccine, 23 valent Clayton Mcfadden MD Work Phone: [facility] 12-23-2012 influenza, seasonal, injectable, preservative free Clayton Mcfadden MD Work Phone: [facility] Payers Date Payer Category Payer Unknown [id number] 2022 Unknown [id number] 2022 Private Health [place] [employer] [place] [id number] 2022 Unknown [facility] [id number] 2022-Present [address] [place] [address] [id number] .7.3.835670.315 2005 Medicare [id number] 1.13.693.2 .7.3.689335.315 1959 Medicare [id number] 2.16.840.1.035682.19 1959 Self-pay [id number] 1959 Self-pay [id number] 1959 Unknown [id number] 2.16.840.1.822385.19 1940 Unknown [id number] 2.16.840.1.627950.3.579.2 .727 1940 Unknown [id number] 2.16.840.1.220161.3.579.2 .727 1940 Unknown [id number] 2.16.840.1.307434.3.579.2 .732 1940 Unknown [id number] 2.16.840.1.684773.3.579.2 .593 1940 Unknown [id number] 2.16.840.1.528493.3.579.2 .593 1940 Unknown [id number] 2.16.840.1.987592.3.579.2 .593 1940 Unknown [id number] 2.16.840.1.156970.3.579.2 .593 1940 Unknown [id number] 2.16.840.1.650379.3.579.2 .593 1940 Unknown [id number] 2.16.840.1.372472.3.579.2 .593 1940 Unknown [id number] 2.16.840.1.971378.3.579.2 .593 1940 Unknown [id number] 2.16.840.1.784285.3.579.2 .593 1940 Unknown [id number] 2.16.840.1.656971.3.579.2 .593 1941 Unknown [id number] 2.16.840.1.535940.3.579.2 .593 194 Unknown [id number] 2.16.840.1.971757.3.579.2 .593 194 Unknown [id number] 2.16.840.1.109681.3.579.2 .593 194 Unknown [id number] 2.16.840.1.587538.3.579.2 .593 1940 Unknown [id number] 2.16.840.1.447955.3.579.2 .593 1940 Unknown [id number] 2.16.840.1.025167.3.579.2 .593 1940 Unknown [id number] 2.16.840.1.788992.3.579.2 .173 1940 Unknown [id number] 2.16.840.1.983630.3.579.2 .173 1940 Unknown [id number] 2.16.840.1.333124.3.579.2 .173 1940 Unknown [id number] 2.16.840.1.338743.3.579.2 .173 194 Unknown [id number] 2.16.840.1.963476.3.579.2 .173 1940 Unknown [id number] 2.16.840.1.136446.3.579.2 .173 1940 Unknown [id number] 2.16.840.1.249359.3.579.2 .1259 1940 Unknown [id number] 2.16.840.1.913733.3.579.2 .1259 1940 Unknown [id number] 2.16.840.1.365518.3.579.2 .1259 1940 Unknown [id number] 2.16.840.1.366113.3.579.2 .1258 1940 Unknown [id number] 2.16.840.1.219222.3.579.2 .9 1940 Unknown [id number] 2.16.840.1.169189.3.579.2 .1258 1940 Unknown [id number] 2.16.840.1.927793.3.579.2 .1258 1940 Unknown [id number] 2.16.840.1.858336.3.579.2 .1258 1940 Unknown [id number] 2.16.840.1.757663.3.579.2 .9 1940 Unknown [id number] 2.16.840.1.061982.3.579.2 .1258 1940 Unknown [id number] 2.16.840.1.487543.3.579.2 .1258 1940 Unknown [id number] 2.16.840.1.230079.3.579.2 .1286 Unknown [id number] 2.16.840.1.023905.3.579.2 .531 Social History Date Type Detail Facility Start: 10-25-2022 End: 07-17-2024 Sex Assigned At [employer] Other Start: 05-12-2019 Tobacco smoking status Never smoked tobacco (finding) [facility] Start: 1940 Sex Assigned At Male [facility] Start: 03-01-2022 End: 07-17-2024 Tobacco smoking status ARIS Ex-smoker [employer] Phone: Start: 02-20-1964 End: 01-08-1995 History of tobacco use Current smoker [employer] [facility]: Start: 02-20-1964 End: 01-08-1995 History of tobacco use Cigarette Smoker [employer] [facility]: Start: 03-01-2022 End: 07-17-2024 Tobacco use and exposure Smokeless tobacco non-user [employer] [facility]: Start: 03-01-2022 End: 05-23-2023 Alcohol intake Lifetime non-drinker (finding) [employer] [facility]: Start: 1940 Sex Assigned At Not on file [employer] [facility]: Tobacco smoking stat [facility] Tobacco smoking consumption unknown [facility] Start: 10-25-2022 End: 07-17-2024 History of Social function [facility] Fear of Current or Ex-Partner Not on file [facility] Within the last year , have you been humiliated or emotionally abused in other ways by your partner or ex-partner? No [facility] Do you belong to any clubs or organizations such as rastafari groups, unions, fraternal or athletic groups, or [...] 1-2 cups per day [facility] Start: 12-17-2023 End: 07-02-2024 Alcoholic beverage intake Ex-drinker (finding) [facility] [...] to buy more. Never true [facility] How often do you nee d to have someone help you when you read instructions, pamphlets, or other written material from your doctor or pharmacy [SILS] Rarely [facility] Start: 07-07-2024 Sex Male (finding) [facility] Start: 07-07-2024 Gender identity Identifies as male gender (finding) [facility] Start: 07-17-2024 Tobacco Comment Quit 30 years ago [facility] Medical Equipment Procedure Code Equipment Code Equipment Origin al Text Equipment Identifier Dates 1 each by Other route in the morning and 1 each at noon and 1 each in the evening and 1 each before bedtime. Use as instructed 4 times a day. Sliding scale to titrate blood sugars One touch Ultra Blue. [id number] Start: 03-23-2023 End: 06-21-2023 1 each by Other route in the morning and 1 each in the evening and 1 each before bedtime. Use as instructed. Sliding scale to titrate blood sugars One touch Ultra Blue DX: E11.22, N18.31, Z79.4. [id number] Start: 06-07-2023 End: 01-09-2024 1 each by Other route in the morning and 1 each in the evening and 1 each before bedtime. Use as instructed. Sliding scale to titrate blood sugars One touch Ultra Blue DX: E11.22, N18.31, Z79.4. [id number] Start: 01-09-2024 End: 07-07-2024 Use as instructe d 3 times a day [id number] Start: 03-04-2024 End: 03-04-2025 1 Lancet in the morning and 1 Lancet in the evening and 1 Lancet before bedtime. Uses One touch [employer] lancet/device. [id number] Start: 01-28-2024 End: 05-07-2024 Functional Status Date Assessment Result Facility 06-03-2024 Patient Health [facility] ionnaire 2 item (PHQ-2) [Reported] [facility] 11-23-2021 Functional Status N/A [facility] Clinical Notes 08-16-2021 to 07-17-2024 Assessment & Plan Note - Crystal Mcdermott MD - 07/17/2024 9:29 AM EDTAssessment & Plan Note - Crystal Mcdermott MD - 07/17/2024 9:29 AM EDTMmaia Mcdermott MD - 07/17/2024 8:50 AM EDT Note Date & Type Note Facility 07-17-2024 Evaluation + Plan note Associated Problem(s): Acute deep vein thrombosis (DVT) of left femoral vein ([facility]) First-time unprovoked DVT. He says that he is not active and he sits in 1 position for long hours. But that is his routine. Recommended continue Xarelto for 3 to 6-month compression therapy and follow-up within with D-dimer. [facility] 07-17-2024 Miscellaneous Notes Associated Problem(s): Acute deep vein thrombosis (DVT) of left femoral vein ([facility]) First-time unprovoked DVT. He says that he is not active and he sits in 1 position for long hours. But that is his routine. Recommended continue Xarelto for 3 to 6-month compression therapy and follow-up within with D-dimer. Addended by: DIVINA MEDEIROS on: 07/17/2024 10:13 AM Modules accepted: Orders documented in this encounter [facility] 07-17-2024 History of Presen t illness Narrative Images from the original note were not included. To: No primary care provider on file. HPI: Chema Childs is a 84 y.o. male with First-time unprovoked DVT. He says that he is not active and he sits in 1 position for long hours. But that is his routine. Recommended continue Xarelto for 3 to 6-month compression therapy and follow-up within with D-dimer.. Review of Systems: Review of Systems Constitutional: Negative. HENT: Negative. Respiratory: Negative. Cardiovascular: Negative. Gastrointestinal: Negative. Endocrine: Negative. Genitourinary: Negative. Musculoskeletal: Negative. Skin: Negative. Neurological: Negative. Hematological: Negative. Medications: Current Outpatient Medications on File Prior to Visit Medication Sig Dispense Refill allopurinoL (ZYLOPRIM) 100 mg tablet Take 1 tablet (100 mg total) by mouth in the morning. atorvastatin (LIPITOR) 20 mg tablet Take 1 tablet (20 mg total) by mouth in the morning. ynmommuwlf-uzgtqugq-bduzsuxozo (BREZTRI AEROSPHERE) 160-9-4.8 mcg/actuation HFA aerosol inhaler Inhale 2 puffs in the morning and 2 puffs before bedtime. levothyroxine (SYNTHROID, LEVOTHROID) 88 MCG tablet Take 1 tablet (88 mcg total) by mouth in the morning. losartan (COZAAR) 50 mg tablet Take 1 tablet (50 mg total) by mouth in the morning. magnesium oxide (MAGOX) 400 mg tablet Take 1 tablet (400 mg total) by mouth in the morning. metFORMIN XR (GLUCOPHAGE XR) 750 mg 24 hr tablet Take 1 tablet (750 mg total) by mouth daily with breakfast. omeprazole (PriLOSEC) 40 mg capsule Take 1 capsule (40 mg total) by mouth every morning before breakfast. XARELTO DVT-PE TREAT 30D START 15 mg (42)- 20 mg (9) tablets,dose pack Take 15 mg by mouth in the morning and at bedtime. 15mg twice daily for 21 days, then 20mg daily albuterol (PROVENTIL HFA;VENTOLIN HFA) 90 mcg/actuation inhaler Inhale 2 puffs every 4 (four) hours as needed for wheezing. albuterol (PROVENTIL,VENTOLIN) 2.5 mg /3 mL (0.083 %) nebulizer solution Inhale 3 mL (2.5 mg total) by nebulization every 8 (eight) hours as needed for wheezing. amoxicillin-pot clavulanate (AUGMENTIN) 875-125 mg per tablet Take 1 tablet by mouth in the morning and 1 tablet before bedtime. bimatoprost (LUMIGAN) 0.01 % ophthalmic drops Instill 1 drop to eye in the morning. brimonidine (ALPHAGAN) 0.2 % ophthalmic solution Administer 1 drop to both eyes in the morning and 1 drop before bedtime. clindamycin (CLEOCIN) 300 mg capsule Take 1 capsule (300 mg total) by mouth in the morning and 1 capsule (300 mg total) at noon and 1 capsule (300 mg total) in the evening and 1 capsule (300 mg total) before bedtime. insulin aspart, niacinamide, (FIASP FLEXTOUCH U-100 INSULIN) 100 unit/mL (3 mL) insulin pen Inject 1 Unit under the skin in the morning and at bedtime. Sliding scale latanoprost (XALATAN) 0.005 % ophthalmic solution Administer 1 drop to both eyes nightly. predniSONE (DELTASONE) 10 mg tablet Take 1 tablet (10 mg total) by mouth in the morning. Taper 60mg x 3 days, 40mg x 3 days, 20mg- x 3 days, 10mg x 3 days. timolol (TIMOPTIC) 0.5 % ophthalmic solution Administer 1 drop to both eyes in the morning and 1 drop before bedtime. No current facility-administered medications on file prior to visit. Past Medical History: No past medical history on file. Past Surgical History: No past surgical history on file. Social and Family History: Social History Socioeconomic History Marital status: Spouse name: Not on file Number of children: Not on file Years of education: Not on file Highest education level: Not on file Occupational History Not on file Tobacco Use Smoking status: Former Types: Cigarettes Smokeless tobacco: Never Tobacco comments: Quit 30 years ago Substance and Sexual Activity Alcohol use: Not on file Drug use: Not on file Sexual activity: Not on file Other Topics Concern Not on file Social History Narrative Not on file Social Drivers of Health Financial Resource Strain: Low Risk (01/03/2024) Received from [facility] Overall Financial Resource Strain (CARDIA) Difficulty of Paying Living Expenses: Not hard at all Food Insecurity: No Food Insecurity (07/17/2024) Hunger Screening Food Insecurity - Worry: Never True Food Insecurity - Inability: Never True Transportation Needs: No Transportation Needs (01/03/2024) Received from [facility] PRAPARE - Transportation Lack of Transportation (Medical): No Lack of Transportation (Non-Medical): No Physical Activity: Insufficiently Active (01/03/2024) Received from [facility] Exercise Vital Sign Days of Exercise per Week: 3 days Minutes of Exercise per Session: 20 min Stress: No Stress Concern Present (01/03/2024) Received from [facility] [employer] - Occupational Stress Questionnaire Feeling of Stress : Not at all Social Connections: Socially Integrated (01/03/2024) Received from [facility] Social Connection and Isolation Panel [NHANES] Frequency of Communication with Friends and Family: More than three times a week Frequency of Social Gatherings with Friends and Family: Three times a week Attends Hinduism Services: More than 4 times per year Active Member of Clubs or Organizations: Yes Attends Club or Organization Meetings: More than 4 times per year Marital Status: Interpersonal Safety: Unknown (10/25/2022) Received from [facility] Humiliation, Afraid, Rape, and Kick questionnaire Fear of Current or Ex-Partner: Not on file Emotionally Abused: No Physically Abused: Not on file Sexually Abused: Not on file Housing Instability: Low Risk (01/03/2024) Received from [facility] Housing Stability Vital Sign Unable to Pay for Housing in the Last Year: No Number of Times Moved in the Last Year: 0 Homeless in the Last Year: No No family history on file. Recent Labs: Recent and relative labs were reviewed and interpreted and contributed to the assessment and plan below. Vitals: BP 130/75 (BP Site: Left Arm, BP Postition: Sitting, BP CUFF SIZE: M (9-13 inches)) Pulse 63 Temp 36.5 C (97.7 F) (Temporal) Ht 180.3 cm (5' 11 ) Wt 83.9 kg (185 lb) SpO2 97% BMI 25.80 kg/m Body mass index is 25.8 kg/m . Physical Exam: Physical Exam Constitutional: Appearance: Normal appearance. HENT: Head: Normocephalic and atraumatic. Mouth/Throat: Mouth: Mucous membranes are moist. Eyes: Extraocular Movements: Extraocular movements intact. Pupils: Pupils are equal, round, and reactive to light. Cardiovascular: Rate and Rhythm: Normal rate and regular rhythm. Pulmonary: Effort: Pulmonary effort is normal. Breath sounds: Normal breath sounds. Abdominal: General: Abdomen is flat. Bowel sounds are normal. Palpations: Abdomen is soft. Musculoskeletal: General: Normal range of motion. Cervical back: Normal range of motion. Skin: General: Skin is warm and dry. Neurological: General: No focal deficit present. Mental Status: He is alert and oriented to person, place, and time. Mental status is at baseline. Psychiatric: Mood and Affect: Mood normal. Behavior: Behavior normal. Thought Content: Thought content normal. Judgment: Judgment normal. Recent testing: Venous Doppler Assessment and Plan: Problem List Acute deep vein thrombosis (DVT) of left femoral vein ([facility]) - Primary Current Assessment & Plan First-time unprovoked DVT. He says that he is not active and he sits in 1 position for long hours. But that is his routine. Recommended continue Xarelto for 3 to 6-month compression therapy and follow-up within with D-dimer. Chema was seen today for hospital discharge follow up from [facility] Diagnoses and all orders for this visit: Acute deep vein thrombosis (DVT) of left femoral vein ([facility]) Crystal Mcdermott MD, ZARIA, RPVI, FSVS, FACS [facility] [place] [facility] This note was created with the assistance of a speech recognition program. While intending to generate a timely document that accurately reflects the content of the visit, no guarantee can be provided that every grammatical or spelling mistake has been or will be identified or corrected. Thank you for your understanding. documented in this encounter [facility] 07-17-2024 Note Addended by: DIVINA MEDEIROS on: 07/17/2024 10:13 AM Modules accepted: Orders [facility] 07-07-2024 Miscellaneous Notes Called pts back form phone call 07/07. No answer, I left a voicemail to call back to get scheduled. Pt was seen at and Dr. Mcdermott consulted. Is being sent over to see Baldemar with us as f/u hospital discharge. documented in this encounter [employer] 07-07-2024 Telephone encounter Note Called pts back form phone call 07/07. No answer, I left a voicemail to call back to get scheduled. Pt was seen at and Dr. Mcdermott consulted. Is being sent over to see Baldemar with us as f/u hospital discharge. [employer] [facility] 07-04-2024 History of Presen t illness Narrative Patient: Chema Childs : 1940 PCP: Clayton Mcfadden MD SUBJECTIVE This is a 84 y.o. male that presents today with a CC of elongated, thick nails. Pt states nails have been elongated and thick for many years and cause pain with ambulation in shoegear. Pt has tried previous treatment with minimal relief. Pt presents today for nail care and treatment. Patient is DM2 with peripheral neuropathy Patient follow up for distal aspect of the left great toe blackening of the nail. History of peripheral neuropathy patient states lesion has resolved Patient had recent DVT and on blood thinner to left leg Allergies: Allergies Allergen Reactions Erythromycin Nausea And Vomiting Erythromycin Base Nausea Only Levofloxacin Diarrhea Metformin Hcl Other Reaction(s): loose bowels Sulfamethoxazole-Trimethoprim Other Reaction(s): GI upset/diarrhea Past Medical History: Past Medical History: Diagnosis Date Acid reflux Age-related nuclear cataract, bilateral Chest pain Chronic kidney disease, stage III (moderate) (HCC) (CMS/HCC) COVID-19 09/2020 and kidney injury with head laceration, 2 days [facility] Esophageal reflux Glaucoma on drops Glucose intolerance (impaired glucose tolerance) Gout, unspecified Hypercalcemia Hyperlipidemia (CMS/HCC) Other and unspecified Hypertension, benign (CMS/HCC) Hypertrophy of prostate (benign) of prostate without urinary obstruction and other lower urinary tract symptoms [LUTS] 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 KAHN (nonalcoholic steatohepatitis) 2020 Non-alcoholic fatty liver disease Other obstructive and reflux uropathy Peripheral vascular disease, unspecified ([facility]) Primary open angle glaucoma of both eyes, unspecified glaucoma stage PVD (peripheral vascular disease) ([facility]) Stage 3 chronic kidney disease (HCC) ([facility]) Medications: Current Outpatient Medications: albuterol (2.5 MG/3ML) 0.083% nebulizer solution, Take 2.5 mg by nebulization every 8 (eight) hours if needed for wheezing, Disp: , Rfl: albuterol HFA 90 mcg/act inhaler, Inhale 2 puffs every 6 (six) hours if needed for wheezing or shortness of breath, Disp: , Rfl: allopurinol (Zyloprim) 100 MG tablet, Take 1 tablet (100 mg) by mouth Daily, Disp: 90 tablet, Rfl: 1 aspirin 81 MG EC tablet, Take 81 mg by mouth in the morning. (Patient not taking: Reported on 06/03/2024), Disp: , Rfl: atorvastatin (Lipitor) 20 MG tablet, Take 1 tablet (20 mg) by mouth in the evening, Disp: 90 tablet, Rfl: 1 Bioflavonoid Products (REAL C PO), Take 500 mg by mouth Daily, Disp: , Rfl: Breztri Aerosphere 160-9-4.8 MCG/ACT aerosol, Inhale 2 puffs in the morning and 2 puffs before bedtime., Disp: , Rfl: brimonidine (AlphaGAN P) 0.2 % ophthalmic solution, Administer 1 drop into the right eye in the morning and 1 drop before bedtime., Disp: , Rfl: cyanocobalamin (Vitamin B-12) 1000 MCG tablet, Take 2,500 mcg by mouth Daily, Disp: , Rfl: FIBER COMPLETE PO, Take 1 tablet by mouth Daily, Disp: , Rfl: glucose blood test strip, 1 each by Other route in the morning and 1 each in the evening and 1 each before bedtime. Use as instructed. Sliding scale to titrate blood sugars One touch Ultra Blue DX: E11.22, N18.31, Z79.4., Disp: 270 each, Rfl: 1 insulin aspart, with niacinamide, (Fiasp FlexTouch) 100 UNIT/ML injection, Sliding scale 3 times daily with meals; 141-200=3u, 201-250=5u, 251-300=8u, >300=12u, Disp: 15 mL, Rfl: 3 insulin pen needle (BD Pen Needle Lindsay 2nd Gen) 32G x 4 mm misc, Use as instructed 3 times a day, Disp: 300 each, Rfl: 3 Lancets 30G misc, 1 Lancet in the morning and 1 Lancet in the evening and 1 Lancet before bedtime. Uses One touch [employer] lancet/device., Disp: 300 each, Rfl: 3 latanoprost (Xalatan) 0.005 % ophthalmic solution, Administer 1 drop into both eyes at bedtime, Disp: , Rfl: levothyroxine (Synthroid, Levoxyl) 88 MCG tablet, Take 1 tablet (88 mcg) by mouth in the morning. Take before meals., Disp: 90 tablet, Rfl: 1 losartan (Cozaar) 50 MG tablet, Take 1 tablet (50 mg) by mouth Daily, Disp: 90 tablet, Rfl: 1 magnesium oxide (Mag-Ox) 400 mg tablet, Take 1 tablet (400 mg) by mouth Daily, Disp: 90 tablet, Rfl: 3 metFORMIN XR (Glucophage-XR) 750 MG 24 hr tablet, Take 1 tablet (750 mg) by mouth in the evening. Take with meals, Disp: 90 tablet, Rfl: 1 Multiple Vitamins-Minerals (Multi For Him) tablet, Take 1 tablet by mouth Daily, Disp: , Rfl: omeprazole (PriLOSEC) [address] capsule, Take 1 capsule (40 mg) by mouth in the morning. Take before meals., Disp: 90 capsule, Rfl: 1 polyethylene glycol, PEG, 3350 (Glycolax) 17 GM/SCOOP powder, Take 17 g by mouth Daily, Disp: , Rfl: sodium chloride 0.9 % nebulizer solution, Take 3 mL by nebulization if needed, Disp: , Rfl: timolol (Timoptic) 0.5 % ophthalmic solution, Administer 1 drop into both eyes in the morning and 1 drop before bedtime., Disp: , Rfl: Social History: Social History Socioeconomic History Marital status: Spouse name: Not on file Number of children: Not on file Years of education: Not on file Highest education level: High school graduate Occupational History Not on file Tobacco Use Smoking status: Former Current packs/day: 0.00 Average packs/day: 1.5 packs/day for 15.0 years (22.5 ttl pk-yrs) Types: Cigarettes Start date: 02/20/1964 Quit date: 01/08/1995 Years since quittin.4 Smokeless tobacco: Never Tobacco comments: Stop smoking: >30 years. Last smoked: >10 years Vaping Use Vaping status: Never Used Substance and Sexual Activity Alcohol use: Not Currently Comment: Caffeine intake: 1-2 cups per day Drug use: Never Sexual activity: Not Currently Partners: Female control/protection: None Other Topics Concern Not on file Social History Narrative Exercise: 3-4 times per week, for 30-60 mins/day Housing: municipal water with filter, gas heat Social Drivers of Health Financial Resource Strain: Low Risk (01/03/2024) Overall Financial Resource Strain (CARDIA) Difficulty of Paying Living Expenses: Not hard at all Food Insecurity: No Food Insecurity (01/03/2024) Hunger Vital Sign Worried About Running Out of Food in the Last Year: Never true Ran Out of Food in the Last Year: Never true Transportation Needs: No Transportation Needs (01/03/2024) PRAPARE - Transportation Lack of Transportation (Medical): No Lack of Transportation (Non-Medical): No Physical Activity: Insufficiently Active (01/03/2024) Exercise Vital Sign Days of Exercise per Week: 3 days Minutes of Exercise per Session: 20 min Stress: No Stress Concern Present (01/03/2024) [employer] - Occupational Stress Questionnaire Feeling of Stress : Not at all Social Connections: Socially Integrated (01/03/2024) Social Connection and Isolation Panel [NHANES] Frequency of Communication with Friends and Family: More than three times a week Frequency of Social Gatherings with Friends and Family: Three times a week Attends Hinduism Services: More than 4 times per year Active Member of Clubs or Organizations: Yes Attends Club or Organization Meetings: More than 4 times per year Marital Status: Intimate Partner Violence: Unknown (10/25/2022) Humiliation, Afraid, Rape, and Kick questionnaire Fear of Current or Ex-Partner: Not on file Emotionally Abused: No Physically Abused: Not on file Sexually Abused: Not on file Housing Stability: Low Risk (01/03/2024) Housing Stability Vital Sign Unable to Pay for Housing in the Last Year: No Number of Times Moved in the Last Year: 0 Homeless in the Last Year: No ROS: General: denies fever, chills, fatigue, malaise Gastrointestinal: denies abdominal pain, ulcers, or changes in appetite or bowel habits Musculoskeletal: denies arthritis, denies loss of strength, pain to hip, knees, back Cardiovascular: denies CP, palpitations, irregular rhythms OBJECTIVE LE EXAM: DERM: Elongated thick yellow crumbly nails digits 1 through 10. Negative hair growth with thin shiny atrophic skin bilaterally. distal aspect of the left great toe has negative black lesion VASC: positive DP and negative PT pedal pulses NEURO: 5.07 Lyle Rubén monofilament test diminished to digits and forefoot bilaterally 125Hz tuning fork diminished to 1st MPJ bilaterally ORTHO: Positive pain on palpation to toenails of the left 1,2,3,4,5 toes and right 1,2,3,4,5 toes ASSESSMENT 1. Diabetes mellitus due to underlying condition with diabetic polyneuropathy, without long-term current use of insulin ([facility]) 2. Pain due to onychomycosis of toenails of both feet 3. Contusion of left foot, initial encounter PLAN Discussed proper foot care with patient today. Debride nails in length and thickness digits 1 through 10 Patient educated today on proper diabetic foot care including monitoring feet daily for any signs of infection openings in the skin or irregularities to both feet. Patient had a diabetic neurological exam today to both their feet and discussed proper shoe gear. Continue with antithrombotics for DVT Urban Mae DPM documented in this encounter [facility] 07-02-2024 History of Presen t illness Narrative Images from the original note were not included. Patient ID: Chema Childs is a 84 y.o. male who presents for: Pt states his left ankle is swollen and then he gets pain behind the knee. 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 No injury. No fever chills. No sores. Review of Systems He specifically notes that his breathing is about the same for him. He does get short of breath on exertion which is usual. There has also been no new chest pains or palpitations. Objective The patient is pleasant and in no acute distress The patient has good eye contact and clear speech The patient is mildly limping on the left leg. Not only his ankle is swollen but the whole left calf compared to the right. There is some mild erythema compared to his right leg. No real increasing calor. There is a Fullness and tenderness in the popliteal fossa. There is a mildly positive Homans sign. No specific palpable cords are appreciated. Adequate capillary refill. 12/17/2023 2:55 PM 01/03/2024 10:41 AM 04/09/2024 2:31 PM 04/15/2024 3:22 PM 04/23/2024 11:29 AM 2024 11:40 AM 06/03/2024 10:03 AM Vitals BMI 26.36 kg/m2 26.36 kg/m2 25.52 kg/m2 25.52 kg/m2 25.52 kg/m2 24.68 kg/m2 24.68 kg/m2 BSA (m2) 2.07 m2 2.07 m2 2.04 m2 2.04 m2 2.04 m2 1.96 m2 1.96 m2 Systolic 134 Diastolic 80 Heart Rate 61 76 70 76 80 SpO2 92 % 92 % 95 % 98 % 97 % Temp 98.1 F Resp 18 Height (in) 5' 11 5' 11 5' 11 5' 11 5' 11 5' 10 5' 10 Weight (lb) 189 189 183 183 183 172 172 Visit Report Report Report Report Report Report Allergies Allergen Reactions Erythromycin Nausea And Vomiting Erythromycin Base Nausea Only Levofloxacin Diarrhea Metformin Hcl Other Reaction(s): loose bowels Sulfamethoxazole-Trimethoprim Other Reaction(s): GI upset/diarrhea Current Outpatient Medications on File Prior to Visit Medication Sig Dispense Refill albuterol (2.5 MG/3ML) 0.083% nebulizer solution Take 2.5 mg by nebulization every 8 (eight) hours if needed for wheezing albuterol HFA 90 mcg/act inhaler Inhale 2 puffs every 6 (six) hours if needed for wheezing or shortness of breath allopurinol (Zyloprim) 100 MG tablet Take 1 tablet (100 mg) by mouth Daily 90 tablet 1 aspirin 81 MG EC tablet Take 81 mg by mouth in the morning. (Patient not taking: Reported on 06/03/2024) atorvastatin (Lipitor) 20 MG tablet Take 1 [...] COMPLETE PO Take 1 tablet by mouth Daily glucose blood test strip 1 each by [...] 141-200=3u, 201-250=5u, 251-300=8u, >300=12u 15 mL 3 insulin pen needle (BD Pen Needle Lindsay 2nd Gen) 32G x 4 mm misc Use as instructed 3 times a day 300 each 3 Lancets 30G misc 1 Lancet in the morning and 1 Lancet in the evening and 1 Lancet before bedtime. Uses One touch Buy buy tea lancet/device. 300 each 3 latanoprost (Xalatan) 0.005 % ophthalmic solution Administer 1 drop into both eyes at bedtime levothyroxine (Synthroid, Levoxyl) 88 MCG tablet Take [...] Him) tablet Take 1 tablet by mouth Daily omeprazole (PriLOSEC) [address] capsule Take 1 capsule (40 mg) by mouth in the morning. Take before meals. 90 capsule 1 polyethylene glycol, PEG, 3350 (Glycolax) 17 GM/SCOOP powder Take 17 g by mouth Daily sodium chloride 0.9 % nebulizer solution Take 3 mL by nebulization if needed timolol (Timoptic) 0.5 % ophthalmic solution Administer 1 drop into both eyes in the morning and 1 drop before bedtime. No current facility-administered medications on file prior to visit. 1. Acute leg pain, left I discussed with him and his and I am rather concerned that he has a deep vein thrombosis. We arranged for a stat venous ultrasound at [facility]. - Vascular US lower extremity venous duplex left; Future - Vascular US lower extremity venous duplex left 2. Left leg swelling - Vascular US lower extremity venous duplex left; Future - Vascular US lower extremity venous duplex left As an addendum, [facility] called me back later in the day. The patient indeed had an extensive DVT from the proximal femoral artery down to the lower leg. At that time rather than attempt outpatient treatment without further evaluation I had them take him over to the emergency room. documented in this encounter [facility] 06-10-2024 History of Presen t illness Narrative Received message from pt's , requests Rx for Magnesium. Sending encounter to PCP Prescription sent documented in this encounter [facility] 06-03-2024 History of Presen t illness Narrative Images from the original note were not included. Patient ID: Chema Childs is a 84 y.o. male who presents for: Hypertension Patient is here for follow-up of elevated blood pressure. He is not exercising and is adherent to a low-salt diet. Blood pressure is well controlled at home. Cardiac symptoms: dyspnea and lower extremity edema. Patient denies chest pain, irregular heart beat, and palpitations. Cardiovascular risk factors: advanced age (older than 55 for men, 65 for women), diabetes mellitus, dyslipidemia, hypertension, male gender, microalbuminuria, sedentary lifestyle, and smoking/ tobacco exposure. Use of agents associated with hypertension: thyroid hormones. History of target organ damage: angina/ prior myocardial infarction, chronic kidney disease, and prior coronary revascularization. Hyperlipidemia Pt who presents for follow-up of dyslipidemia. A repeat fasting lipid profile was not done. The patient does not use medications that may worsen dyslipidemias (corticosteroids, progestins, anabolic steroids, diuretics, beta-blockers, amiodarone, cyclosporine, olanzapine). Exercise: rarely. Diabetes Mellitus Patient presents for follow up of diabetes. Current symptoms include: none. Symptoms have stabilized. Patient denies increased appetite, paresthesia of the feet, and visual disturbances. Evaluation to date has included: hemoglobin A1C. Home sugars: BGs consistently in an acceptable range. Review of Systems Constitutional: Negative for activity change and fatigue. Respiratory: Negative for cough, shortness of breath and wheezing. Cardiovascular: Negative for chest pain, palpitations and leg swelling. Neurological: Negative for light-headedness and headaches. Objective The patient is pleasant and in no acute distress. Appears much better than his post hospitalization visits. The neck is supple and trachea is midline. No masses are appreciated. The heart is regular rate and rhythm without S3, S4. No murmur. The patient has normal respiratory pattern , with the exception of a prolonged expiratory phase. His voice is somewhat raspy.. The breath sounds are Diffusely decreased but symmetrical without evidence of rhonchi or rales. No wheezing. The skin is warm and dry. The lower extremities have trace edema. The patient has good eye contact and speech is clear. Appropriate affect. Visit Vitals BP 134/80 Pulse 80 Ht 5' 10 Wt 172 lb SpO2 97% BMI 24.68 kg/m Smoking Status Former BSA 1.96 m Allergies Allergen Reactions Erythromycin Nausea And Vomiting Erythromycin Base Nausea Only Levofloxacin Diarrhea Metformin Hcl Other Reaction(s): loose bowels Sulfamethoxazole-Trimethoprim Other Reaction(s): GI upset/diarrhea Current Outpatient Medications on File Prior to Visit Medication Sig Dispense Refill albuterol (2.5 MG/3ML) 0.083% nebulizer solution Take 2.5 mg by nebulization every 8 (eight) hours if needed for wheezing albuterol HFA 90 mcg/act inhaler Inhale 2 puffs every 6 (six) hours if needed for wheezing or shortness of breath allopurinol (Zyloprim) 100 MG tablet Take 1 [...] COMPLETE PO Take 1 tablet by mouth Daily glucose blood test strip 1 each by [...] 141-200=3u, 201-250=5u, 251-300=8u, >300=12u 15 mL 3 insulin pen needle (BD Pen Needle Lindsay 2nd Gen) 32G x 4 mm misc Use as instructed 3 times a day 300 each 3 Lancets 30G misc 1 Lancet in the morning and 1 Lancet in the evening and 1 Lancet before bedtime. Uses One touch Buy buy tea lancet/device. 300 each 3 latanoprost (Xalatan) 0.005 % ophthalmic solution Administer 1 drop into both eyes at bedtime levothyroxine (Synthroid, Levoxyl) 88 MCG tablet Take [...] Him) tablet Take 1 tablet by mouth Daily omeprazole (PriLOSEC) [address] capsule Take 1 capsule (40 mg) by mouth in the morning. Take before meals. 90 capsule 1 polyethylene glycol, PEG, 3350 (Glycolax) 17 GM/SCOOP powder Take 17 g by mouth Daily sodium chloride 0.9 % nebulizer solution Take 3 mL by nebulization if needed timolol (Timoptic) 0.5 % ophthalmic solution Administer 1 drop into both eyes in the morning and 1 drop before bedtime. aspirin 81 MG EC tablet Take 81 mg by mouth in the morning. (Patient not taking: Reported on 06/03/2024) [DISCONTINUED] oxygen (O2) gas Inhale 3 L/min at bedtime via nasal canula No current facility-administered medications on file prior to visit. 1. Benign essential hypertension (CMS/HCC) Chronic problem, stable, to goal. - losartan (Cozaar) 50 MG tablet; Take 1 tablet (50 mg) by mouth Daily Dispense: 90 tablet; Refill: 1 - Comprehensive metabolic panel; Future - Comprehensive metabolic panel 2. Hypertensive nephropathy (CMS/HCC) - Comprehensive metabolic panel; Future - Comprehensive metabolic panel 3. Stage 3a chronic kidney disease (HCC) (CMS/HCC) - Comprehensive metabolic panel; Future - Comprehensive metabolic panel 4. Microalbuminuria Chronic problem, defining an aspect [...] for risk stratification for cardiovascular disease. 5. Mixed hyperlipidemia (CMS/HCC) In prescribing a renewal to their current medication, consideration of the following encompasses moderate decision making; the current prescriptions and supplements, the current allergies and medication intolerances, current medical conditions, and potential drug interactions. Any changes to risks, benefits, and reason for renewing their current medication due to the above were discussed. The patient was given a chance to ask questions today and all questions were answered. The patient is to contact us if any other questions arise or if any problems occur. (Utilizing the original 1994/1996 guidelines or the 2020 office/outpatient code guidelines for selecting the level of E/M service, In both sets of guidelines, prescription drug management appears in the moderate medical decision making (MDM) row. Neither the original guidelines nor the new guidelines state that a new prescription or change is needed in order to credit prescription drug management) - atorvastatin (Lipitor) 20 MG tablet; Take 1 tablet (20 mg) by mouth in the evening Dispense: 90 tablet; Refill: 1 - Lipid panel; Future - Lipid panel 6. Type 2 diabetes mellitus with stage 3a chronic kidney disease, with long-term current use of insulin (HCC) ([facility]) - metFORMIN XR (Glucophage-XR) 750 MG 24 hr tablet; Take 1 tablet (750 mg) by mouth in the evening. Take with meals Dispense: 90 tablet; Refill: 1 - Comprehensive metabolic panel; Future - Hemoglobin A1c; Future - Comprehensive metabolic panel - Hemoglobin A1c 7. Type 2 diabetes mellitus with hyperglycemia, with long-term current use of insulin ([facility]) 8. Ex-smoker Continue not smoking 9. Polypharmacy Chronic problem The patient meets the [...] a moderate degree of evaluation and management. 10. Hyperuricemia - allopurinol (Zyloprim) 100 MG tablet; Take 1 tablet (100 mg) by mouth Daily Dispense: 90 tablet; Refill: 1 documented in this encounter [facility] 04-09-2024 History of Presen t illness Narrative Images from the original note were not included. Patient ID: Chema Childs is a 83 y.o. male who presents for: Hospital F/U see dx in graph Flowsheet Row Patient Outreach from 04/07/2024 in [facility] with Briseida Paez RN Hospital Information ED, Hospital or Long Term Facility Discharge? Hospital Patient has been contacted within two business days of discharge Yes Diagnosis Pneumonia Right upper lobe of lung, Acute hypoxic respiratory failure, Acute exacerbation of COPD, Type 2 DM with Hyperglycemia, HTN Discharge Date 04/06/24 Discharged To: Long Term Facility (specify SNF in comments) [facility] from the [facility] to home] Discharge Hospital [facility] Long Term [facility] [left [facility] at 8 pm on 04/06 to home] Engagement Call Start Time 1048 Admission Date 04/02/24 Medications Discharge medications reviewed and reconciled from hospital? Yes [rder for Clindamycin 300mg x 10 days, Prednisone 10 mg tapering dosage over 12 days, Amoxicillin x 14 days] Is the patient having any side effects they believe may be caused by any medication additions or changes? No Does the patient have all medications ordered at discharge? No [left [facility]- medications were not received at [facility]] Prescription Comments message sent to PCP for discharge medications and order for HH Is the patient taking all medications as directed (includes completed medication regime)? No Appointments Does the patient have a primary care provider? Yes Self Management Does patient have home health? -- [requesting order from PCP] Patient Teaching Does the patient have access to their discharge instructions? Yes [spoke with ] Nursing Interventions Reviewed instructions with patient What is the patient's perception of their health status since discharge? Improving Is the patient/caregiver able to teach back the hierarchy of who to call/visit for symptoms/problems? PCP, Specialist, Home Health nurse, Urgent Care, ED, 911 Yes Wrap Up Is the patient/caregiver familiar with Advance Care Planning? Yes Would the patient like more information on Advance Care Planning? No Wrap Up Additional Comments Pt [id number] had Covid prior to going to [facility] ER., pulse ox was 90% on room air. Test labs, CTA without PE. Oxygen to maintain pulse ox. Call End Time 1101 Review of Systems Constitutional: Positive for chills and fatigue. Negative for activity change and fever. Respiratory: Positive for cough, shortness of breath and wheezing. Cardiovascular: Negative for chest pain, palpitations and leg swelling. Neurological: Negative for light-headedness and headaches. Objective In general the patient is pleasant and in no acute distress, but obviously ill Bilateral nares demonstrate inflamed mucosa. Oropharynx has moist mucosa there is specific evidence of thrush on the tongue and posteriorly bilateral buccal mucosa. There is mild erythema of the pharynx. His voice is more hoarse than usual Shoddy bilateral anterior cervical adenopathy. Mild increased work of breathing, but No signs of respiratory distress. Patient is speaking full but short sentences. There are diffusely decreased but symmetrical breath sounds. No rhonchi or rales are appreciated. No wheezes. Skin is warm and dry Visit Vitals Pulse 76 Ht 5' 11 Wt 183 lb SpO2 92% BMI 25.52 kg/m Smoking Status Former BSA 2.04 m Allergies Allergen Reactions Erythromycin Nausea And [...] 141-200=3u, 201-250=5u, 251-300=8u, >300=12u 15 mL 3 insulin pen needle (BD Pen Needle Lindsay 2nd Gen) 32G x 4 mm misc Use as instructed 3 times a day 300 each 3 Lancets 30G misc 1 Lancet in the morning and 1 Lancet in the evening and 1 Lancet before bedtime. Uses One touch Buy buy tea lancet/device. 300 each 3 latanoprost (Xalatan) 0.005 % ophthalmic solution [...] powder Take 17 g by mouth Daily [] predniSONE (Deltasone) 10 MG tablet Take 6 tablets (60 mg) by mouth Daily for 3 days, THEN 4 tablets (40 mg) Daily for 3 days, THEN 2 tablets (20 mg) Daily for 3 days, THEN 1 tablet (10 mg) Daily for 3 days. 39 tablet 0 sodium chloride 0.9 % nebulizer solution Take 3 mL by nebulization if needed timolol (Timoptic) 0.5 % ophthalmic solution Administer 1 drop into both eyes in the morning and 1 drop before bedtime. [DISCONTINUED] amoxicillin-clavulanate (Augmentin) 875-125 MG tablet Take 1 tablet (875 mg) by mouth in the morning and 1 tablet (875 mg) before bedtime. Do all this for 14 days. 28 tablet 0 [DISCONTINUED] clindamycin (Cleocin) 300 MG capsule Take 1 capsule (300 mg) by mouth in the morning and 1 capsule (300 mg) at noon and 1 capsule (300 mg) in the evening and 1 capsule (300 mg) before bedtime. Do all this for 10 days. 40 capsule 0 No current facility-administered medications on file prior to visit. 1. Pneumonia of right lower lobe due to infectious organism (Primary) Acute problem which required the necessity of inpatient hospitalization due to the hypoxic respiratory failure. 2. Acute hypoxic respiratory failure ([facility]/HCC) Acute problem since emergency room presentation. Even with oxygen today he is only 92 percent on the pulse ox reading. With any little bit of trying to transfer and walk, example to the bathroom, he becomes short of breath. This does resolve with rest. Continued oxygen therapy. 3. Acute exacerbation of chronic obstructive pulmonary disease (COPD) ([facility]) Patient has known COPD in the pneumonia has caused an acute exacerbation. He has been on antibiotics and oral steroids which have ultimately led to elevated blood sugar readings and thrush. For now he seems to be getting the most relief from his albuterol nebulizer treatments. I have asked them to do this every 4 hours around the clock for the next 48 hours. 4. Type 2 diabetes mellitus with hyperglycemia, with long-term current use of insulin ([facility]) His blood sugars are high from the steroids and his illness. Continue with his insulin therapy. Monitor closely for hypoglycemia. 5. Benign essential hypertension ([facility]) Chronic problem, stable, continue current treatment. 6. Encounter for examination following treatment at hospital This visit is prompted as a transition of care. The patient has been contacted by phone within 2 business days of discharge or at least 2 unsuccessful attempts were made to contact the patient within the 2 business days. Any available documents including; emergency room note, visit notes, consults, and discharge summary or continuity of care documents were reviewed. Any laboratory investigation or diagnostic imaging that was ordered by outside physicians and available was obtained and reviewed. The transition of care note is reviewed. a [id number] evaluation is done today. Medical decision making is complex in degree. Chronic problem The patient meets the criteria [...] a moderate degree of evaluation and management. 7. Thrush New problem that was previously identified. He was placed on nystatin swish, but was not sent home with it. I discussed with them that my preference would be clotrimazole lozenge nurse. The nystatin swish has corn syrup in it which does not make sense to me when we are trying to combat thrush and he has elevated blood sugars. In prescribing a new medication consideration of [...] with the adjustment in their medication. - clotrimazole (Mycelex) 10 MG papo; Take 1 tablet (10 mg) by mouth in the morning and 1 tablet (10 mg) at noon and 1 tablet (10 mg) in the evening and 1 tablet (10 mg) before bedtime. Dispense: 120 tablet; Refill: 0 8. Noncompliance by declining service I did briefly discuss with him that I think he made a poor choice of leaving the facility to proximally 8:00 p.m. in the evening. When can see the previous encounters that arose from this noncompliance. I discussed with him the physicians you would usually just send him right back to the emergency room, but then I put in the extra time because I have known him for years. I discussed that he can certainly be angry about the event and that he could have even decided he was not staying but it should have waited till the next day when it could be arranged. I think he is still angry over this and there was some questions about a do not resuscitate order. I did briefly explain this to the both of them and they are going to think about it. 9. Overweight I suspect he is actually somewhat malnourished with a slowly event. I discussed with his that she might want to introduce some sort of ensure or boost product half of can mid morning and a half a can mid afternoon. documented in this encounter [facility] 01-03-2024 History of Presen t illness Narrative [...] exacerbation of chronic obstructive pulmonary disease (COPD) (CMS/HCC) (Primary) Acute problem which is recurrent in [...] evaluation and management. documented in this encounter [facility] 12-17-2023 History of Presen t illness Narrative [...] manually resulted documented in this encounter [facility] 11-12-2023 History of Presen t illness Narrative [...] 0.70 - 1.30 mg/dL Final [facility] EGFR-AF ANGOLAN 05/18/2023 >60 >=60 Final [facility] EGFR-NON AF ANGOLAN 05/18/2023 59 (L) >=60 Final BUN CREATININE [...] 90 tablet; Refill: 1 2. Hypertensive nephropathy (CMS/[facility]) Labs from earlier in the year reviewed again 3. Stage 3a chronic kidney disease (HCC) ([facility]) Labs from earlier in the year reviewed [...] with long-term current use of insulin (HCC) ([facility]) Chronic problem, stable, to goal. I did [...] 90 tablet; Refill: 1 6. Mixed hyperlipidemia ([facility]) - atorvastatin (Lipitor) 20 MG tablet; Take [...] management. 9. Chronic respiratory failure with hypoxia ([facility]) Chronic problem, stable Upon further questioning with [...] hearing was improved. documented in this encounter [facility] 01-31-2023 Evaluation note Encounter Date Diagnosis Assessment [...] were answered he understands agrees the plan. [employer] Other 02-16-2023 NoteEXAMINATION: XR CHEST 2 V [...] Electronically authenticated by: ULISSES FRANCO Date: 2022-04-06 08:00[facility]02-09-2023 History of Present illness Narrative* [...] by: Horace Parra DO documented in this [id number] Evaluation note* Encounter Date Diagnosis Assessment Notes [...] with this plan, and denies any questions. [employer] Other 10-05-2022 Hospital Discharge instructions Patient Education [...] prostate. Follow these instructions at home: Take [id number] and prescription medicines only as told by [...] 02/02/2001 Document Revised: 04/20/2018 Document Reviewed: 10/26/2016 [employer] Patient Education 2020 [employer]. Follow Up Care 11/01/2021 10:45:28 With:KONG PEPE PA-C, URL Address: [address] [place], [place] [address] [address] When:3 months [facility] 06-28-2022 Evaluation note* Encounter Date Diagnosis Assessment Notes Treatment Notes Treatment Clinical Notes Jul, Abdominal aortic aneurysm (AAA) 3.0 cm to 5.5 cm in diameter in male (ICD-10 - I71.4) Jul, Other Aortic ulcer wi th small aneurysm Review of the images today [id number] ulcer of the infrarenal aorta that does [...] understand and all the questions were answered. [employer] Other Evaluation + Plan note Future Appointments Appointment Date:02/22/2022 01:20:00 PM Scheduled Provider:KONG PEPE PA-C Location:[facility] Appointment Type:URO Office Visit [facility] evaluation noteNo assessment information available [facility] Work Phone: Evaluation note* Diagnosis BPH with obstruction/lower urinary tract symptoms Hypertrophy of prostate with urinary obstruction and other lower urinary tract symptoms (LUTS) Dysuria documented in this encounter [facility] [employer] Work Phone: evaluation note* Diagnosis Fall, initial encounter- Primary Shortness of breath Tachycardia Tachycardia, unspecified [facility] Diagnosis Dysuria Frequency of micturition Urinary frequency documented in this encounter [facility] [employer] HEALTHEvaluation note* Diagnosis Type 2 diabetes mellitus with stage 3a chronic kidney disease, with long-term current use of insulin (HCC) (CMS/HCC) documented in this encounter [facility] HealthcareEvaluation note* Diagnosis Acute right-sided low back pain without sciatica documented in this encounter [facility] HealthcareEvaluation note* Diagnosis Type 2 diabetes mellitus with stage 3a chronic kidney disease, with long-term current use of insulin (HCC) (CMS/HCC)- Primary Gastroesophageal reflux disease without esophagitis Esophageal reflux Acquired hypothyroidism (CMS/HCC) Unspecified hypothyroidism documented in this encounter 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) Other emphysema Polypharmacy Issue of repeat prescriptions documented in this encounter [facility]* Diagnosis Benign essential hypertension (CMS/HCC) Essential hypertension, benign Hypertensive nephropathy (CMS/HCC) Unspecified hypertensive kidney disease with chronic kidney disease stage I through stage IV, or unspecified Stage 3a chronic kidney disease (HCC) (CMS/HCC) Microalbuminuria Proteinuria Type 2 diabetes mellitus with stage 3a chronic kidney disease, with long-term current use of insulin (HCC) (CMS/HCC) Mixed hyperlipidemia (CMS/HCC) Mixed hyperlipidemia Hyperuricemia Other abnormal blood chemistry Polypharmacy Issue of repeat prescriptions Chronic respiratory failure with hypoxia (CMS/HCC) Ex-smoker Personal history of tobacco use, presenting hazards to health Overweight Infrarenal abdominal aortic aneurysm, without rupture (CMS/HCC) Atherosclerosis of aorta (CMS/HCC) Atherosclerosis of aorta documented in this encounter [facility] HealthcareEvaluation note* Diagnosis Pneumonia of right lower lobe due to infectious organism- Primary Acute hypoxic respiratory failure ([facility]) Acute exacerbation of chronic obstructive pulmonary disease (COPD) ([facility]) Obstructive chronic bronchitis with exacerbation Type 2 diabetes mellitus with hyperglycemia, with long-term current use of insulin ([facility]) Benign essential hypertension ([facility]) Essential hypertension, benign Encounter for examination following treatment at hospital Thrush Candidiasis of mouth Noncompliance by declining service Overweight documented in this encounter [facility]* Diagnosis Benign essential hypertension ([facility]) Essential hypertension, benign Hypertensive nephropathy ([facility]) Unspecified hypertensive kidney disease with chronic kidney disease stage I through stage IV, or unspecified Stage 3a chronic kidney disease ([facility]) ([facility]) Microalbuminuria Proteinuria Mixed hyperlipidemia ([facility]) Mixed hyperlipidemia Type 2 diabetes mellitus with stage 3a chronic kidney disease, with long-term current use of insulin ([facility]) ([facility]) Type 2 diabetes mellitus with hyperglycemia, with long-term current use of insulin ([facility]) Ex-smoker Personal history of tobacco use, presenting hazards to health Polypharmacy Issue of repeat prescriptions Hyperuricemia Other abnormal blood chemistry documented in this encounter [facility] HealthcareEvaluation note* Diagnosis Hypernatremia- Primary Hyperosmolality and/or hypernatremia Hypertensive nephropathy ([facility]) Unspecified hypertensive kidney disease with chronic kidney disease stage I through stage IV, or unspecified documented in this encounter [facility] HealthcareEvaluation note* Diagnosis Diabetes mellitus due to underlying condition with diabetic polyneuropathy, without long-term current use of insulin ([facility])- Primary Pain due to onychomycosis of toenails of both feet Contusion of left foot, initial encounter documented in this encounter [facility] HealthcareEvaluation note* Diagnosis Acute leg pain, left Left leg swelling documented in this encounter [facility] HealthcareEvaluation note* Diagnosis Acute deep vein thrombosis (DVT) of left femoral vein ([facility])- Primary [facility] N[facility]ative - Reported* Type Description Date Medical History high cholestrol Medical History high blood pressure Medical History acid reflux Surgical History hemorrhoidectomy Hospitalization History acid reflux - observatio n [employer] Other History general Narrative - Reported* Type Description Date Medical History high cholestrol Medical History high blood pressure Medical History acid reflux Surgical History hemorrhoidectomy Surgical History Laser Surgery on prostate Hospitalization History acid reflux - observatio n [employer] Other Hospital course Narrative No data available for this section [facility] InstructionsNot on filedocumented in this encounter [facility] filed[facility] in [facility] No data available for this section [facility] Summary Purpose Family History No Family History Records FoundNo Family History Records FoundNo Family History Records FoundNo Family History Records FoundNo Family History Records FoundNo Family History Records FoundNo Family History Records FoundNo Family History Records Found Advance Directives No Advanced Directives Records Found Advance Directive Response Recorded Date/ Time Advance Directives No May 29 12:03pm Documents on File Type Date Recorded 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 Power of [employer] 04/09/2024 3:45 PM 05-23 Power Of [employer] Advance Directives and Living Will 04/09/2024 3:38 PM 2022-05-23 Living Wi ll Chief Complaint and Reason for Visit Chief [...] DATE CREATED AUTHOR AUTHOR'S ORGANIZ ATION 03/15/2022 [facility] DATE CREATED AUTHOR AUTHOR'S ORGANIZ ATION 07/01/2022 [facility] DATE CREATED AUTHOR AUTHOR'S ORGANIZ ATION 07/04/2022 [facility] DATE CREATED AUTHOR AUTHOR'S ORGANIZ ATION [facility] DATE CREATED AUTHOR AUTHOR'S ORGANIZ ATION 02/24/2023 [facility] DATE CREATED AUTHOR AUTHOR'S ORGANIZ ATION 07/16/2024 [facility] DATE CREATED AUTHOR AUTHOR'S ORGANIZ ATION 07/19/2024 [facility] REASON FOR VISIT (unrecogniz ed section and content) Reason Comments Fall Reason Comments Med Change Request Reason Comments Hip Pain Reason Comments URI Reason Comments Follow-up Reason Comments Hypertension Hyperlipidemia Diabetes Reason Comments DM Foot Care Dm nail care Reason Comments Edema Reason Comments hospital discharge follow up from [facility] Patient Care team informatio n (unrecognized section [...] Active Oumar Haynes MD Attending Provider Active Assistant Professor In Family Studies Relationship Specialty Start Date End Date Clayton Mcfadden MD [address] [place] [address] PCP - General 03/01/22 Assistant Professor In Family Studies Relationship Specialty Start Date End Date Clayton Mcfadden MD [address] [facility] [place] [address] PCP - General 03/01/22 Assistant Professor In Family Studies Relationship Specialty Start Date End Date Clayton Mcfadden MD [address] [place] [address] PCP - ACO Reach 07/13/22 Clayton Mcfadden MD [address] [place] [address] PCP - General Family Medicine 08/03/22 Briseida Paez, RN Registered Nurse Family Medicine 03/16/23 Assistant Professor In Family Studies Relationship Specialty Start Date End Date Clayton Mcfadden MD [address] [place] [address] (Fax) PCP - ACO Reach 07/13/22 Clayton Mcfadden MD [address] [place] [address] (Fax) PCP - General Family Medicine 08/03/22 Briseida Paez, RN Registered Nurse Family Medicine 03/16/23 Assistant Professor In Family Studies Relationship Specialty Start Date End Date Clayton Mcfadden MD [address] [place] [address] (Fax) PCP - ACO Reach 07/13/22 Clayton Mcfadden MD [address] [place] [address] (Fax) PCP - General Family Medicine 08/03/22 Briseida Paez, RN Registered Nurse Family Medicine 03/16/23 Assistant Professor In Family Studies Relationship Specialty Start Date End Date Clayton Mcfadden MD [address] [place] [address] (Fax) PCP - ACO Reach 07/13/22 Clayton Mcfadden MD [address] [place] [address] (Fax) PCP - General Family Medicine 08/03/22 Briseida Paez, RN Registered Nurse Family Medicine 03/16/23 Assistant Professor In Family Studies Relationship Specialty Start Date End Date lCayton Mcfadden MD [address] [facility] [place] [address] (Fax) PCP - ACO Reach 07/13/22 Clayton Mcfadden MD [address] [place] [address] PCP - General Family Medicine 08/03/22 Briseida Paez RN Registered Nurse Family Medicine 03/16/23 Assistant Professor In Family Studies Relationship Specialty Start Date End Date Clayton Mcfadden MD [address] [facility] [place] [address] (Fax) PCP - ACO Reach 07/13/22 Clayton Mcfadden MD [address] [place] [address] PCP - General Family Medicine 08/03/22 Briseida Paez RN Registered Nurse Family Medicine 03/16/23 Assistant Professor In Family Studies Relationship Specialty Start Date End Date Clayton Mcfadden MD [address] [place] [address] (Fax) PCP - ACO Reach 07/13/22 Briseida Paez RN Registered Nurse Family Medicine 03/16/23 Assistant Professor In Family Studies Relationship Specialty Start Date End Date Clayton Mcfadden MD [address] [place] [address] (Fax) PCP - ACO Reach 07/13/22 Briseida Paez, PATRIC Registered Nurse Family Medicine 03/16/23 Assistant Professor In Family Studies Relationship Specialty Start Date End Date Clayton Mcfadden MD [address] [place] [address] (Fax) PCP - ACO Reach 07/13/22 Briseida Paez RN Registered Nurse Family Medicine 03/16/23 Assistant Professor In Family Studies Relationship Specialty Start Date End Date Clayton Mcfadden MD [address] [place] [address] (Fax) PCP - ACO Reach 07/13/22 Briseida Paez RN Registered Nurse Family Medicine 03/16/23 Assistant Professor In Family Studies Relationship Specialty Start Date End Date Clayton Mcfadden MD [address] [place] [address] (Fax) PCP - ACO Reach 07/13/22 Clayton Mcfadden MD [address] [place] [address] (Fax) PCP - General Family Medicine 04/14/24 Briseida Paez RN Registered Nurse Family Medicine 03/16/23 Assistant Professor In Family Studies Relationship Specialty Start Date End Date Clayton Mcfadden MD [address] [place] [address] (Fax) PCP - ACO Reach 07/13/22 Clayton Mcfadden MD [address] [place] [address] (Fax) PCP - General Family Medicine 04/14/24 Briseida Paez RN Registered Nurse Family Medicine 03/16/23 Assistant Professor In Family Studies Relationship Specialty Start Date End Date Clayton Mcfadden MD [address] [place] [address] (Fax) PCP - ACO Reach 07/13/22 Clayton Mcfadden MD [address] [place] [address] (Fax) PCP - General Family Medicine 04/14/24 Briseida Paez, PATRIC Registered Nurse Family Medicine 03/16/23 Assistant Professor In Family Studies Relationship Specialty Start Date End Date Clayton Mcfadden MD [address] [place] [address] (Fax) PCP - ACO Reach 07/13/22 Clayton Mcfadden MD [address] [place] [address] (Fax) PCP - General Family Medicine 04/14/24 Briseida Paez, RN Registered Nurse Family Medicine 03/16/23 Assistant Professor In Family Studies Relationship Specialty Start Date End Date Clayton Mcfadden MD [address] [place] [address] (Fax) PCP - ACO Reach 07/13/22 Clayton Mcfadden MD [address] [place] [address] (Fax) PCP - General Family Medicine 04/14/24 Briseida Paez, RN Registered Nurse Family Medicine 03/16/23 Assistant Professor In Family Studies Relationship Specialty Start Date End Date Clayton Mcfadden MD [address] [place] [address] (Fax) PCP - ACO Reach 07/13/22 Clayton Mcfadden MD [address] [place] [address] (Fax) PCP - General Family Medicine 04/14/24 Briseida Paez, RN Registered Nurse Family Medicine 03/16/23 Assistant Professor In Family Studies Relationship Specialty Start Date End Date Clayton Mcfadden MD [address] [place] [address] (Fax) PCP - ACO Reach 07/13/22 Clayton Mcfadden MD [address] [facility] [address] [place] [address] PCP - General Family Medicine 04/14/24 Briseida Paez, RN Registered Nurse Family Medicine [...] BE BASED ON THE PRIMARY CLINICAL RECORDS. [employer] provides no warranty or guarantee of the accuracy or completeness of information in this document.
--- NOTE | 2024-07-27 21:38 | XR_ITS ---
The [address] [address] Patient Name: CHEMA ALTMAN MRN: [id number] date: 1940 Sex: M Assigned Patient Location: ED.MAIN Current Patient Location: Accession/Order Number: [id number] Exam Date: 07/28/2024 06:28 Report Date: 07/28/2024 06:34 At the request of: BRAXTON STREET MD Procedure: XR knee LT 3V 3 views leftelbow plain film COMPARISON :None HISTORY: Fell on concrete. Left elbow pain. Wrist pain on the left. ACUTE FINDINGS: There is a fracture of the olecranon spur which is nondisplaced. Age-indeterminate. DEGENERATIVE CHANGE: Degenerative spurring. SOFT TISSUE FINDINGS: Olecranon soft tissue swelling/bursitis. JOINT EFFUSION: None POSTOP CHANGES: None BONE MINERALIZATION: Adequate XR/XR knee LT 3V IMPRESSION: Fracture olecranon spur, age-indeterminate. Adjacent soft tissue swelling/bursitis. Degenerative change. 3 views left wrist Extensive STT arthritis. Extensive first carpometacarpal degeneration. Ulnar minus variance. No acute displaced fracture. Unremarkable soft tissues. IMPRESSION: No acute displaced fracture 3 views left knee No acute displaced fracture. No joint effusion. Adequate bony alignment. Tiny bony density intercondylar notch. Suspect old injury. Atherosclerosis. IMPRESSION: No acute displaced fracture. Impression dictated by: Oumar Brasher M.D. 07/28/2024 6:34 AM Dictation Location: [employer] Electronically authenticated by: [id number] Y Date: 07/28/2024 06:34
--- NOTE | 2024-07-27 21:38 | XR_ITS ---
The [place] [id number] Patient Name: CHEMA ALTMAN MRN: [id number] date: 1940 Sex: M Assigned Patient Location: ED.MAIN Current Patient Location: Accession/Order Number: [id number] Exam Date: 07/28/2024 06:28 Report Date: 07/28/2024 06:34 At the request of: BRAXTON STREET MD Procedure: XR knee LT 3V 3 views leftelbow plain film COMPARISON :None HISTORY: Fell on concrete. Left elbow pain. Wrist pain on the left. ACUTE FINDINGS: There is a fracture of the olecranon spur which is nondisplaced. Age-indeterminate. DEGENERATIVE CHANGE: Degenerative spurring. SOFT TISSUE FINDINGS: Olecranon soft tissue swelling/bursitis. JOINT EFFUSION: None POSTOP CHANGES: None BONE MINERALIZATION: Adequate XR/XR wrist LT min 3V IMPRESSION: Fracture olecranon spur, age-indeterminate. Adjacent soft tissue swelling/bursitis. Degenerative change. 3 views left wrist Extensive STT arthritis. Extensive first carpometacarpal degeneration. Ulnar minus variance. No acute displaced fracture. Unremarkable soft tissues. IMPRESSION: No acute displaced fracture 3 views left knee No acute displaced fracture. No joint effusion. Adequate bony alignment. Tiny bony density intercondylar notch. Suspect old injury. Atherosclerosis. IMPRESSION: No acute displaced fracture. Impression dictated by: Oumar Brasher M.D. 07/28/2024 6:34 AM Dictation Location: [employer] Electronically authenticated by: [id number] Y Date: 07/28/2024 06:34
--- NOTE | 2024-07-27 21:38 | XR_ITS ---
The [place] [id number] Patient Name: CHEMA ALTMAN MRN: [id number] date: 1940 Sex: M Assigned Patient Location: ED.MAIN Current Patient Location: Accession/Order Number: [id number] Exam Date: 07/28/2024 06:28 Report Date: 07/28/2024 06:34 At the request of: BRAXTON STREET MD Procedure: XR knee LT 3V 3 views leftelbow plain film COMPARISON :None HISTORY: Fell on concrete. Left elbow pain. Wrist pain on the left. ACUTE FINDINGS: There is a fracture of the olecranon spur which is nondisplaced. Age-indeterminate. DEGENERATIVE CHANGE: Degenerative spurring. SOFT TISSUE FINDINGS: Olecranon soft tissue swelling/bursitis. JOINT EFFUSION: None POSTOP CHANGES: None BONE MINERALIZATION: Adequate XR/XR elbow LT min 3V IMPRESSION: Fracture olecranon spur, age-indeterminate. Adjacent soft tissue swelling/bursitis. Degenerative change. 3 views left wrist Extensive STT arthritis. Extensive first carpometacarpal degeneration. Ulnar minus variance. No acute displaced fracture. Unremarkable soft tissues. IMPRESSION: No acute displaced fracture 3 views left knee No acute displaced fracture. No joint effusion. Adequate bony alignment. Tiny bony density intercondylar notch. Suspect old injury. Atherosclerosis. IMPRESSION: No acute displaced fracture. Impression dictated by: Oumar Brasher M.D. 07/28/2024 6:34 AM Dictation Location: [employer] Electronically authenticated by: [id number] Y Date: 07/28/2024 06:34
--- NOTE | 2024-07-27 21:39 | ED.SKABFB1 ---
HPI - Skin/Abscess/Foreign Bdy General Chief complaint: Skin/Abscess/Foreign Body Stated complaint: FALL Time Seen by Provider: 07/27/24 21:20 Source: patient Mode of arrival: walk-in History of Present Illness HPI narrative: patient was using weed Carlos Manuel loss his balance and fell. abrasion left knee,left wrist and cut to left elbow. Went back into his home to clean up. He then came out and completed the weed wacking. Denies striking his head. No neck pain or extremity weakness. Denies knee pain. No back pain. did have left chest wall pain but this resolved. no nausea or vomiting Related Data Home Medications ?Medication ?Instructions ?Recorded ?Confirmed albuterol sulfate 2.5 mg/3 mL 2.5 mg inhalation Q8H PRN 04/02/24 04/02/24 (0.083 %) solution for nebulization shortness of breath or wheezing albuterol sulfate 90 mcg/actuation 2 puff inhalation Q4H PRN 04/02/24 04/02/24 aerosol inhaler shortness of breath or wheezing allopurinol 100 mg tablet 100 mg PO DAILY 04/02/24 04/02/24 atorvastatin 20 mg tablet 20 mg PO QPM 04/02/24 04/02/24 bioflavonoid products tablet tab PO 04/02/24 brimonidine 0.2 % eye drops 1 drp ophthalmic (eye) BID 04/02/24 04/02/24 budesonide 160 mcg-glycopyr 9 2 inh inhalation BID 04/02/24 04/02/24 mcg-formot 4.8 mcg/actuation HFA inhaler (Breztri Aerosphere) insulin aspart 1 sliding scale dose subcut BID 04/02/24 04/02/24 (niacinamide)(U-100) 100 unit/mL(3 mL) subcutaneous pen (Fiasp FlexTouch U-100 Insulin) latanoprost 0.005 % eye drops 1 drp ophthalmic (eye) BEDTIME 04/02/24 04/02/24 levothyroxine 88 mcg tablet 88 mcg PO .ACB 04/02/24 04/02/24 losartan 50 mg tablet 50 mg PO DAILY 04/02/24 04/02/24 magnesium oxide 400 mg (241.3 mg 400 mg PO DAILY 04/02/24 04/02/24 magnesium) tablet metformin 750 mg tablet,extended 750 mg PO DAILY@1700 04/02/24 04/02/24 release 24 hr omeprazole 40 mg capsule,delayed 40 mg PO .ACB 04/02/24 04/02/24 release timolol maleate 0.5 % eye drops 1 drp ophthalmic (eye) BID 04/02/24 04/02/24 Previous Rx's ?Medication ?Instructions ?Recorded amoxicillin 875 mg-potassium 1 tab PO Q12H 14 days #28 tabs 04/06/24 clavulanate 125 mg tablet clindamycin HCl 300 mg capsule 300 mg PO Q6H 10 days #40 caps 04/06/24 prednisone 10 mg tablets in a dose 10 mg PO DAILY #39 ea 04/06/24 pack rivaroxaban 15 mg (42)-20 mg (9) See Rx Instructions PO .COMPLEX 07/02/24 tablets in a starter pack (Xarelto #51 ea DVT-PE Treatment 30-Day Starter) Allergies Allergy/AdvReac Type Severity Reaction Status Date / Time erythromycin base Allergy Severe Rash Verified 04/02/24 10:40 levofloxacin Allergy Severe Rash Verified 04/02/24 11:54 Sulfa (Sulfonamide Allergy Severe Rash Verified 04/02/24 11:54 Antibiotics) metformin AdvReac Intermediate Diarrhea Verified 04/02/24 11:54 Review of Systems ROS Status of ROS 10 or more systems reviewed and unremarkable except as noted in history and below [facility] Medical History (Updated 07/27/24 @ 23:06 by Favio Mcconnell MD) Type 2 diabetes mellitus with hyperglycemia ?E11.65 - Type 2 diabetes mellitus with hyperglycemia (ICD-10) Acute exacerbation of chronic obstructive airways disease ?J44.1 - Chronic obstructive pulmonary disease with (acute) exacerbation (ICD-10) Acute hypoxic respiratory failure ?J96.01 - Acute respiratory failure with hypoxia (ICD-10) HTN (hypertension) ?I10 - Essential (primary) hypertension (ICD-10) Hypoxia ?R09.02 - Hypoxemia (ICD-10) Diabetes 1.5, managed as type 1 ?E13.9 - Other specified diabetes mellitus without complications (ICD-10) COPD (chronic obstructive pulmonary disease) ?J44.9 - Chronic obstructive pulmonary disease, unspecified (ICD-10) Social History (Updated 04/02/24 @ 13:37 by Janis Sumner) Within the past year, how often did you have a drink containing alcohol: never Within the past year, how often did you have six or more drinks on one occasion: never Score interpretation: A score less than 4 is consistent with normal alcohol consumption. 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 Known occupational exposures/hazards: No Highest level of school completed/degree received: high school graduate Are you now , , , , never or living with a partner: In a typical week, how many times do you talk on the telephone with family, friends, or neighbors: 3 or more times per week How often do you get together with friends or relatives: 3 or more times per week How often do you attend christianity or jain services: 4 or more times per year Do you belong to any clubs or organizations such as christianity groups unions, [employer] or athletic groups, or school groups: no Total score: 3 Score interpretation: A score of greater than or equal to 2 indicates the lowest level of social isolation. Little interest or pleasure in doing things: not at all Feeling down, depressed, or hopeless: not at all Feel stressed/tense/nervous/anxious/difficulty sleeping: not at all Due to disability, difficulty making decisions: No Do you think of yourself as: straight/heterosexual Gender Identity: male Exam Constitutional Vital Signs, click to edit/add: Last Vital Signs Temp 98.0 F 07/27/24 21:07 Pulse 97 H 07/27/24 21:07 Resp 16 07/27/24 21:07 BP 149/86 H 07/27/24 21:07 Pulse Ox 96 07/27/24 21:07 O2 Del Method Room Air 07/27/24 21:07 Common normals: no apparent distress, average body habitus, oriented x3, no limitations, healthy appearing, alert and well nourished [facility] Common normals: normocephalic and head/scalp atraumatic Eye Common normals: PERRL and EOMs intact bilaterally Respiratory Common normals: normal respiratory effort, no retractions, no use of accessory muscles and clear to auscultation bilaterally Cardio Common normals: regular rate, regular rhythm, S1 normal heart sound and S2 normal heart sound GI Common normals: Normal to inspection, nondistended, normoactive bowel sounds present, soft to palpation and non-tender Extremity Other: abrasions left knee, left wrist and large superficial paper cut left elbow. FROM of all 3 joints Neuro Common normals: oriented x3, CN's II-XII intact bilaterally, moves all extremities and no focal motor deficits Psych Appearance: grossly normal Course Vital Signs Vital signs: Vital Signs Temperature 98.0 F 07/27/24 21:07 Pulse Rate 97 H 07/27/24 21:07 Respiratory Rate 16 07/27/24 21:07 Blood Pressure 149/86 H 07/27/24 21:07 Pulse Oximetry 96 07/27/24 21:07 Oxygen Delivery Method Room Air 07/27/24 21:07 Temperature 98.0 F 07/27/24 21:07 Pulse Rate 97 H 07/27/24 21:07 Respiratory Rate 16 07/27/24 21:07 Blood Pressure 149/86 H 07/27/24 21:07 Pulse Oximetry 96 07/27/24 21:07 Oxygen Delivery Method Room Air 07/27/24 21:07 MDM - Skin/Abscess/Foreign Bdy MDM Narrative Medical decision making narrative: patient fell at home outdoors while weed wacking. Sustained abrasion left knee, left wrist and paper cut left elbow. xrays of the joints neg for fracture. Wounds cleaned and dressed by nursing. Patient discharged home to follow up with his family doctor Discharge Plan Discharge Chief Complaint: Skin/Abscess/Foreign Body Clinical Impression: Abrasion of knee, left, Abrasion of left wrist, Laceration of skin of left elbow Patient Disposition: Home, Self-Care Prescriptions / Home Meds: No Action losartan 50 mg tablet 50 mg PO DAILY atorvastatin 20 mg tablet 20 mg PO QPM allopurinol 100 mg tablet 100 mg PO DAILY omeprazole 40 mg capsule,delayed release(DR/EC) 40 mg PO .ACB levothyroxine 88 mcg tablet 88 mcg PO .ACB magnesium oxide 400 mg (241.3 mg magnesium) tablet 400 mg PO DAILY metformin 750 mg tablet extended release 24 hr 750 mg PO DAILY@1700 [facility] Aerosphere 160-9-4.8 mcg/actuation HFA aerosol inhaler 2 inh INHALATION BID bioflavonoid products Tablet PO albuterol sulfate 90 mcg/actuation HFA aerosol inhaler 2 puff INHALATION Q4H PRN (Reason: shortness of breath or wheezing) albuterol sulfate 2.5 mg /3 mL (0.083 %) solution for nebulization 2.5 mg inhalation Q8H PRN (Reason: shortness of breath or wheezing) brimonidine 0.2 % drops 1 drp OPHTHALMIC (EYE) BID latanoprost 0.005 % drops 1 drp OPHTHALMIC (EYE) BEDTIME timolol maleate 0.5 % drops 1 drp OPHTHALMIC (EYE) BID Fiasp FlexTouch U-100 Insulin 100 unit/mL (3 mL) insulin pen 1 sliding scale dose SUBCUT BID clindamycin HCl 300 mg capsule 300 mg PO Q6H 10 Days Qty: 40 0RF prednisone 10 mg tablets,dose pack 10 mg PO DAILY Qty: 39 0RF Rx Instructions: 6 PO daily x 3 days, then 4 PO daily x 3 days, then 2 PO daily x 3 days, then 1 PO daily x 3 days amoxicillin-pot clavulanate 875-125 mg tablet 1 tab PO Q12H 14 Days Qty: 28 0RF Xarelto DVT-PE Treat 30d Start 15 mg (42)- 20 mg (9) tablets,dose pack See Rx Instructions .ROUTE .COMPLEX Qty: 51 0RF Rx Instructions: take one-15 mg tablet twice daily for 21 days, then one-20 mg tablet once daily; must take with meal/food Print Language: Burmese Instructions: Abrasion (ED), Laceration Without Closure (ED) Additional Instructions: have your wounds rechecked by your doctor in 2-3 days. Use Tylenol for pain Referrals: KANG MCFADDEN [Primary Care Provider, Family Practice] - 1 week
[2024-07-27] MEDS: BACITRACIN 0.9 GM PACKET 2 PACKET TOPICAL (22:44)
--- NOTE | 2024-07-27 22:52 | PC.NURSE ---
left knee, wrist and elbow cleansed with sterile saline and dressings applied
[2024-07-27] MEDS: ADACEL DIPH,PERTUSS(ACELL),TET VAC/PF 0.5 ML ADULT SYRINGE IM (23:29)
== END 2024-07-27 23:50 | disposition home or self-care (01) ==
PROVIDERS: Emergency Provider Internal Medicine; PCP Family Medicine
DX: S80.212A Abrasion, left knee, initial encounter (principal); S60.812A Abrasion of left wrist, initial encounter; S51.012A Laceration without foreign body of left elbow, initial encounter; W18.39XA Other fall on same level, initial encounter; Y93.H2 Activity, gardening and landscaping; Z23 Encounter for immunization
CPT/HCPCS: 73080; 73110; 73562; 90471; 90715; 99284

== ENCOUNTER 2024-09-22 13:23 | Outpatient (OUT) | payer MEDICARE, SELFPAY ==
--- OUTSIDE RECORDS SUMMARY | 2024-09-22 13:28 | XMS_ITS | Encounter Summary ---
Author Organization Known Sys tem Address [facility] [id number] [address] [place] [address] Care Team Providers Care Container Filler Name Role Phone Unavailable Primary Care Provider Unavailabl e Encounter Details Date Type Department Care Team (Late st Contact Info) Description 07/17/2024 Telephone [facility] [address] [place] [phone] Crystal Mcdermott MD [address], [address] [address] Social History Tobacco Use Types Packs/Day Years Used Date Smoking Tobacco: Former Cigarettes Smokeless Tobacco: Never Comments:Quit 30 years ago Hunger Screening Answer Date Recorded Within the past 12 months we worried whether our food would run out before we got money to buy more. Never True 07/17/2024 Within the past 12 months th e food we bought just didn't last and we didn't have money to get more. Never True 07/17/2024 Sex and Gender Information Value Date Recorded Sex Assigned at Male 07/07/2024 3:23 PM EDT Legal Sex Male 3:22 PM EDT Gender Identity Male 07/07/2024 3:23 PM EDT Sexual Orientation Not on file documented as of this encounter Miscellaneous Notes * Telephone Encounter - Cristiane Lorenzo - 07/17/2024 9:58 AM EDT [facility] Pharmacy is calling to clarify a medication sent in by . Davion states the patients insurance does not cover the generic for Xaretlo. Wanting to know if he would rather send name brand Xarelto 20mg 1x a day to make it cheaper for the patient. Please call Davion with [facility] pharmacy in [place] to clarify Medication directions. Best number to reach the pharmacy [phone]. Thank you. documented in this encounter Plan of Treatment Not on file documented as of this encounter Visit Diagnoses Not on filedocumented in this encounter
--- OUTSIDE RECORDS SUMMARY | 2024-09-22 13:28 | XMS_ITS | Clinical Summary ---
Author Organization [employer] tem Address [facility] [place] [id number] [address] [place] [address] Care Team Providers Care Workday Manager Name Role Phone Unavailable Primary Care Provider Unavailabl e Allergies Active Allergy Reactions Criticality Noted Date Comments Erythromycin Base Rash Low 07/17/2024 Levofloxacin Rash Low 07/17/2024 Sulfa (Sulfonamide Antibiotics) Rash Low 06/20 Medications allopurinoL (ZYLOPRIM) 100 mg tablet Take 1 tablet (100 mg total) by mouth in the morning. 5 12/01/19 25 Active atorvastatin (LIPITOR) 20 mg tablet Take 1 tablet (20 mg total) by mouth in the morning. 5 12/01/19 25 Active losartan (COZAAR) 50 mg tablet Take 1 tablet (50 mg total) by mouth in the morning. 5 12/01/19 25 Active metFORMIN XR (GLUCOPHAGE XR) 750 mg 24 hr tablet Take 1 tablet (750 mg total) by mouth daily with breakfast. 5 12/01/19 25 Active omeprazole (PriLOSEC) 40 mg capsule Take 1 capsule (40 mg total) by mouth every morning before breakfast. 5 10/24/19 25 Active XARELTO DVT-PE TREAT 30D START 15 mg (42)- 20 mg (9) tablets,dose pack Take 15 mg by mouth in the morning and at bedtime. 15mg twice daily for 21 days, then 20mg daily 5 Active bimatoprost (LUMIGAN) 0.01 % ophthalmic drops Instill 1 drop to eye in the morning. Active albuterol (PROVENTIL,VENT JOHN) 2.5 mg /3 mL (0.083 %) nebulizer solution Inhale 3 mL (2.5 mg total) by nebulization every 8 (eight) hours as needed for wheezing. Active albuterol (PROVENTIL HFA;VENTOLIN HFA) 90 mcg/actuation inhaler Inhale 2 puffs every 4 (four) hours as needed for wheezing. Active brimonidine (ALPHAGAN) 0.2 % ophthalmic solution Administer 1 drop to both eyes in the morning and 1 drop before bedtime. Active budesonide-glyc opyr-formoterol (BREZTRI AEROSPHERE) 160-9-4.8 mcg/actuation HFA aerosol inhaler Inhale 2 puffs in the morning and 2 puffs before bedtime. 4 Active levothyroxine (SYNTHROID, LEVOTHROID) 88 MCG tablet Take 1 tablet (88 mcg total) by mouth in the morning. 5 10/24/19 25 Active magnesium oxide (MAGOX) 400 mg tablet Take 1 tablet (400 mg total) by mouth in the morning. 5 Active timolol (TIMOPTIC) 0.5 % ophthalmic solution Administer 1 drop to both eyes in the morning and 1 drop before bedtime. Active latanoprost (XALATAN) 0.005 % ophthalmic solution Administer 1 drop to both eyes nightly. Active insulin aspart, niacinamide, (FIASP FLEXTOUCH U-100 INSULIN) 100 unit/mL (3 mL) insulin pen Inject 1 Unit under the skin in the morning and at bedtime. Sliding scale Active clindamycin (CLEOCIN) 300 mg capsule Take 1 capsule (300 mg total) by mouth in the morning and 1 capsule (300 mg total) at noon and 1 capsule (300 mg total) in the evening and 1 capsule (300 mg total) before bedtime. Active predniSONE (DELTASONE) 10 mg tablet Take 1 tablet (10 mg total) by mouth in the morning. Taper 60mg x 3 days, 40mg x 3 days, 20mg- x 3 days, 10mg x 3 days. Active amoxicillin-pot clavulanate (AUGMENTIN) 875-125 mg per tablet Take 1 tablet by mouth in the morning and 1 tablet before bedtime. Active rivaroxaban (XARELTO) 2.5 mg tablet Take 8 tablets (20 mg total) by mouth in the morning. 720 tablet 2 Active rivaroxaban (XARELTO) 20 mg tablet tabletIndicatio ns:Acute deep vein thrombosis (DVT) of left femoral vein (CMS-HCC) Take 1 tablet (20 mg total) by mouth in the morning. 90 tablet Active Active Problems Problem Noted Date Diagnosed Date Acute deep vein thrombosis (DVT) of left femoral vein 07/17/2024 Assessment & Plan (07/17/2024 9:29 AM EDT): First-time unprovoked DVT. He says that he is not active and he sits in 1 position for long hours. But that is his routine. Recommended continue Xarelto for 3 to 6-month compression therapy and follow-up within with D-dimer. Encounters Date Type Department Care Team Description 07/17/2024 8:50 AM EDT Office Visit [facility] [address] [place] [phone] Crystal Mcdermott MD Acute deep vein thrombosis (DVT) of left femoral vein (CMS-HCC) (Primary Dx) 07/17/2024 Telephone [facility] [place] [phone] Crystal Mcdermott MD 07/17/2024 Travel 07/07/2024 Telephone [facility] [phone] Radhika Phoenix from Last 3 Months Social History Tobacco Use Types Packs/Day Years Used Date Smoking Tobacco: Former Cigarettes Smokeless Tobacco: Never Tobacco Cessation:Counseling Given: Not Answered Comments:Quit 30 years ago Hunger Screening Answer [...] PM EDT Sexual Orientation Not on file Last Filed Vital Signs Vital Sign Reading Time Taken Comments Blood Pressure 130/75 07/17/2024 8:48 AM EDT Pulse 63 07/17/2024 8:48 AM EDT Temperature 36.5 C (97.7 F) 07/17/2024 8:48 AM EDT Respiratory Rate - - Oxygen Saturation 97% 07/17/2024 8:48 AM EDT Inhaled Oxygen Concentration - - Weight 83.9 kg (185 lb) 07/17/2024 8:48 AM EDT Height 180.3 cm (5' 11 ) 07/17/2024 8:48 AM EDT Body Mass Index 25.8 07/17/2024 8:48 AM EDT Plan of Treatment Health Maintenance Due Date Last Done Comments Depression Screening 1952 DTaP,Tdap and Td Vaccines (1 - Tdap) 04/26/1959 Fall Risk Screening 2005 Zoster (Shingles) Vaccine (2 of 3) 02/18/2014 12/24/2013 COVID-19 Vaccine (2023-2 5 season) 2023 12/11/2022, 12/04/2020, 04/07/2020, Additional history exists Influenza Vaccine 10/20/2024 12/27/2023, , 12/08/2021, Additional history exists Tobacco Screening 07/17/2025 07/17/2024 Medical Devices Not on file Insurance MEDICARE [facility]
--- NOTE | 2024-09-22 13:34 | XR_ITS ---
The [address] [address] Patient Name: CHEMA ALTMAN MRN: [id number] date: 1940 Sex: M Assigned Patient Location: [facility] Current Patient Location: [facility] Accession/Order Number: [id number] Exam Date: 09/22/2024 14:20 Report Date: 09/22/2024 14:21 At the request of: KANG MCFADDEN Procedure: XR ribs RT 2V Chest 2 views left RIBS 6 views CLINICAL HISTORY: Rib Pain On Left Side, Fall, Interstitial Lung Disease COMPARISON: Chest 04/06/2024 FINDINGS: Chest: Heart appears normal in size. Chronic interstitial changes. No consolidation pneumothorax pleural effusion or free air. Improved aeration of the right lung when compared to the prior study. Left rib series: Bones are grossly demineralized. No displaced rib fracture is seen. XR/XR chest 2V IMPRESSION: IMPROVED AERATION OF THE RIGHT LUNG COMPARED TO THE PRIOR STUDY. CHRONIC INTERSTITIAL CHANGES. NO NEW CONSOLIDATION IS SEEN TO SUGGEST PNEUMONIA. NO DISPLACED LEFT-SIDED RIB FRACTURES Impression dictated by: Theodore Moss Jr., D.O. 09/22/2024 2:21 PM Dictation Location: [place] [address] Electronically authenticated by: [id number] Y Date: 09/22/2024 14:21
--- NOTE | 2024-09-22 13:35 | XR_ITS ---
The [address] [address] Patient Name: CHEMA ALTMAN MRN: [id number] date: 1940 Sex: M Assigned Patient Location: [facility] Current Patient Location: [facility] Accession/Order Number: [id number] Exam Date: 09/22/2024 14:20 Report Date: 09/22/2024 14:21 At the request of: KANG MCFADDEN Procedure: XR ribs RT 2V Chest 2 views left RIBS 6 views CLINICAL HISTORY: Rib Pain On Left Side, Fall, Interstitial Lung Disease COMPARISON: Chest 04/06/2024 FINDINGS: Chest: Heart appears normal in size. Chronic interstitial changes. No consolidation pneumothorax pleural effusion or free air. Improved aeration of the right lung when compared to the prior study. Left rib series: Bones are grossly demineralized. No displaced rib fracture is seen. XR/XR ribs RT 2V IMPRESSION: IMPROVED AERATION OF THE RIGHT LUNG COMPARED TO THE PRIOR STUDY. CHRONIC INTERSTITIAL CHANGES. NO NEW CONSOLIDATION IS SEEN TO SUGGEST PNEUMONIA. NO DISPLACED LEFT-SIDED RIB FRACTURES Impression dictated by: Theodore Moss Jr., D.O. 09/22/2024 2:21 PM Dictation Location: [place] [address] Electronically authenticated by: [id number] Y Date: 09/22/2024 14:21
== END 2024-09-22 13:24 | disposition home or self-care (01) ==
LOC: RAD 13:27
PROVIDERS: PCP Family Medicine; Visit Provider Family Medicine
DX: J84.9 Interstitial pulmonary disease, unspecified (principal); W19.XXXA Unspecified fall, initial encounter; R07.81 Pleurodynia
CPT/HCPCS: 71046; 71100

== ENCOUNTER 2024-10-21 11:31 | Outpatient (OUT) | payer MEDICARE, SELFPAY ==
--- OUTSIDE RECORDS SUMMARY | 2024-10-21 11:35 | XMS_ITS | Clinical Summary ---
Author Organization [employer] tem Address [facility] [id number] [address] [place] [address] Care Team Providers Care Assortment Planner Name Role Phone Unavailable Primary Care Provider [...] compression therapy and follow-up within with D-dimer. Social History Tobacco Use Types Packs/Day Years [...] (2 of 3) 02/18/2014 12/24/2013 COVID-19 Vaccine (5 - 2023-2 5 season) 2023 12/11/2022, 12/04/2020, 04/07/2020, Additional history exists Influenza Vaccine 10/20/2024 12/27/2023, , 12/08/2021, Additional history exists Tobacco Screening 07/17/2025 07/17/2024 Medical Devices Not on file Insurance MEDICARE [facility]
--- OUTSIDE RECORDS SUMMARY | 2024-10-21 11:35 | XMS_ITS | Clinical Summary ---
Author Organization [facility] Address [address] [facility] [place] [address] Care Team Providers Care Glassblower Name Role Phone Unavailable Primary Care Provider Unavailabl e Source Comments The following information is NOT included in Care Everywhere downloads:Psychiatric notes, ECG results, Cardiac Rehab notes, Pulmonary Function notes, data from SmartForms (includes but not limited toPregnancy data,audiograms, eye exams, pre-surgical evaluation notes, well-child exam data).[facility] Social History Tobacco Use Types Packs/Day Years Used Date Smoking Tobacco: Never Assessed Sex and Gender Information Value Date Recorded Sex Assigned at Not on file Legal Sex Male 10:11 AM EST Gender Identity Not on file Sexual Orientation Not on file Last Filed Vital Signs Vital Sign Reading Time Taken Comments Blood Pressure 137/78 03/27/2022 11:40 PM EST Pulse 121 03/27/2022 11:40 PM EST Temperature - - Respiratory Rate 22 03/27/2022 11:40 PM EST Oxygen Saturation 92% 03/27/2022 11:40 PM EST Inhaled Oxygen Concentration - - Weight - - Height - - Body Mass Index - - Plan of Treatment Health Maintenance Due Date Last Done Comments Tdap Booster 1958 Hepatitis A (HAV) Vaccine (optional start 19+ years) 0 04/26/1959 Pneumococcal Vaccine(s) (50+ yrs) (1 of 1 - PCV) 04/25 Shingles (RZV) Vaccine (1 of 2) 1990 Hepatitis B (HBV) Vaccine (optional start 60+ years) 0 2000 Annual Wellness Visit (G0438) 01/19/2011 RSV vaccine (adult) (1 - 1-dose 75+ series) 04/26/2015 COVID-19 Vaccine ( - 2023- season) 2024 Influenza Vaccine (#1) 2024 Insurance MEDICARE - [facility]IL[facility]
--- OUTSIDE RECORDS SUMMARY | 2024-10-21 11:35 | XMS_ITS | Clinical Summary ---
Author Organization [facility] Address [address] [place], [place] [id number] Care Team Providers Care Trolley Car Operator Name Role Phone Unavailable Primary Care Provider Unavailabl e Allergies No known active allergies Medications ACIPHEX 20MG TABLET EC Take one(1) daily 0 07/29/2003 Active ASPIRIN 81MG TABLET Take one (1) tablet daily . 0 07/29/2003 Active METOCLOPRAMIDE 10MG TABLET Take one(1) tablet daily. 0 07/29/2003 Active PO FOR MEN CAPLET SA Take one(1) tablet daily. 0 07/29/2003 Active L-LYSINE 500MG TABLET Take one(1) tablet daily. 0 07/29/2003 Active BENADRYL 25MG KAPSEALS Take one(1) tablet daily at bedtime. 0 07/29/2003 Active OMEPRAZOLE ORAL Take by mouth. Active ALLOPURINOL ORAL Take by mouth. Active losartan (COZAAR) 50 mg tablet Take 50 mg by mouth once daily. Active krill oil 500 mg cap Take by mouth. Active SILDENAFIL CITRATE (VIAGRA ORAL) Take by mouth as needed. Active tamsulosin ER (FLOMAX) 0.4 mg cp24 Take 0.4 mg by mouth. Active CINNAMON BARK ORAL Take by mouth. 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 Family History Medical History Relation Comments Arthritis Father RA Cancer Father lung ca at 72 Hypertension Father Diabetes Mother Heart Mother Hypertension Mother Relation Status Comments Father Mother Social History Tobacco Use Types Packs/Day Years Used Date Smoking Tobacco: Former Cigarettes 2 35 Comments:Quit 21 years ago Alcohol Use Standard Drinks/Week Comments Not Asked 0 (1 standard drink = 0.6 oz pur e alcohol) Sex and Gender Information Value Date Recorded Sex Assigned at Not on file Legal Sex Male 10:03 AM EST Gender Identity Not on file Sexual Orientation Not on file Last Filed Vital Signs Vital Sign Reading Time Taken Comments Blood Pressure 148/82 07/29/2003 1:45 PM EDT Pulse 76 07/29/2003 1:45 PM EDT Temperature - - Respiratory Rate - - Oxygen Saturation - - Inhaled Oxygen Concentration - - Weight 86.6 kg (191 lb) 08/19/2015 8:14 AM EDT Height 180.3 cm (5' 11 ) 08/19/2015 8:14 AM EDT Body Mass Index 26.64 08/19/2015 8:14 AM EDT Plan of Treatment Health Maintenance Due Date Last Done Comments Anxiety Screening 1958 Depression Screening 1958 DTaP,Tdap,Td Vaccine (1 - Tdap) 04/26/1959 Diabetes Screening 1985 Pneumococcal Vaccine: 50+ (1 of 1 - PCV) 1990 Shingrix Vaccine (1 of 2) 1990 RSV Vaccine (1 - 1-dose 75+ series) 04/26/2015 Advance Directive Discussion 02/20/2024 Influenza Vaccine (#1) [address] [facility] [employer] Address: [facility] [id number] [place] [address] MEDICARE [id number]
--- OUTSIDE RECORDS SUMMARY | 2024-10-21 11:35 | XMS_ITS | Continuity of Care Document ---
Author Organization [facility] Address [address] [place], [place] [id number] Insurance Providers Payer Plan Claims Address Claims Phone Policy Number Group Number Relation Employer Guarantor Name Guarantor Guarantor Address Guarantor Phone MEDIC ARE [address] [address], [place] [address] [id number] Shoaib ALTMAN [address] [place] [id number] [facility] [address], [place] [address] tel:[phone] Shoaib ALTMAN [address] [place] [id number] [employer] [address], [place] [address] [phone] Shoaib ALTMAN [address] [place] [id number] Problems Condition ICD9 code ICD10 code SNOMED code Start Date End Date S tatus Chronic obstructive pulmonary disease with (acute) exacerbation J44.1 04/06/2024 Acti ve Type 2 diabetes mellitus with hyperglycemia E11.65 04/06/2024 Active Other specified diabetes mellitus without complications E13.9 04/06/2024 Active Acute respiratory failure with hypoxia J96.01 04/06/2024 Active Pneumonia, unspecified organism J18.9 04/06/2024 Active joint terminal attack controller (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 of insulin Z79.4 04/06/2024 Active Hypothyroidism, unspecified E03.9 04/06/2024 Active Hyperlipidemia, unspecified E78.5 04/06/2024 Active Hypoxemia R09.02 04/06/2024 Active Hypomagnesemia E83.42 04/06/2024 Active Hypo-osmolality and hyponatremia E87.1 04/06/2024 Active Gastro-esophageal reflux disease without esophagitis K21.9 04/06/2024 Active Shortness of breath R06.02 04/06/2024 A ctive Idiopathic gout, unspecified site M10.00 04/06/2024 Active Glaucomatous flecks (subcapsular), 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 04/06/2024 Active Results No Results Allergies, adverse reactions, alerts Substance Reaction Date Status Type erythromycin Rash 04/05/2024 Non Drug levofloxacin Rash 04/05/2024 Non Drug metformin Diarrhea 04/05/2024 Non Drug Sulfa (Sulfonamide Antibiotics) Rash 04/05/2024 Non Drug Medications Medication Instructions Route Dosage Frequency Start Date Stop Date Indications Status albuterol sulfate 90 mcg/actuation HFA aerosol inhaler (albuterol sulfate) 2 puffs, inhalation, Every 4 Hours - PRN inhalatio n 1.0 4.0 h 2024 Chronic obstructive pulmonary disease with (acute) exacerbation Active albuterol sulfate 2.5 mg /3 mL (0.083 %) solution for nebulization (albuterol sulfate) 2.5 mg, inhalation, Every 8 Hours - PRN inhalatio n 1.0 8.0 h 2024 Shortness of breath Active allopurinol 100 mg tablet (allopurinol) 1 tablet, oral, Once A Day oral 1.0 1.0 d 2024 Idiopathic gout, unspecified site Active amoxicillin-po t clavulanate 875-125 mg tablet (amoxicillin-p ot clavulanate) 1 tablet, oral, Twice A Day oral 1.0 12.0 h 04/19 Pneumonia, unspecified organism Active atorvastatin 20 mg tablet (atorvastatin) 1 tablet, oral, At Bedtime oral 1.0 2024 Hyperlipidemia , unspecified Active Breztri Aerosphere (budesonide-gl ycopyr-formote rol) 160-9-4.8 mcg/actuation HFA aerosol inhaler (Breztri Aerosphere (budesonide-gl ycopyr-formote rol)) 2 inhalations, inhalation, Twice A Day inhalatio n 1.0 12.0 h 2024 Chronic obstructive pulmonary disease with (acute) exacerbation Active brimonidine 0.2 % drops (brimonidine) 1 drop, ophthalmic (eye), Twice A Day, 1 drop to right eye bid 1.0 12.0 h 2024 Glaucomatous flecks (subcapsular), bilateral Active clindamycin HCl 300 mg capsule (clindamycin HCl) 1 capsule, oral, Every 6 Hours oral 1.0 6.0 h 04/16 Pneumonia, unspecified organism Active Fiasp FlexTouch U-100 Insulin (insulin aspart (niacinamide)) 100 unit/mL (3 mL) insulin pen (Fiasp FlexTouch U-100 Insulin (insulin aspart (niacinamide)) ) Per Sliding Scale, subcutaneous, Twice A Day, If Blood Sugar is 0 to 150, give 0 Units.If Blood Sugar is 151 to 200, give 2 Units.If Blood Sugar is 201 to 250, give 4 Units.If Blood Sugar is 251 to 300, give 6 Units.If Blood Sugar is 301 to 350, give 8 Units.If Blood Sugar is 351 to 400, give 0 Units.If Blood Sugar is greater than 400, give 0 Units.If Blood Sugar is greater than 400, call MD. subcutane ous 1.0 12.0 h 04/06 Type 2 diabetes mellitus with hyperglycemia Active hydroxyzine HCl 25 mg tablet (hydroxyzine HCl) 1 tab, oral, Every 6 Hours - PRN, agitation oral 1.0 6.0 h 2024 Active latanoprost 0.005 % drops (latanoprost) 1 drop, ophthalmic (eye), At Bedtime, 1 drop both eyes at bedtime 1.0 2024 Active levothyroxine 88 mcg tablet (levothyroxine ) 1 tablet, oral, Once A Day oral 1.0 1.0 d 2024 Hypothyroidism , unspecified Active losartan 50 mg tablet (losartan) 1 tablet, oral, Once A Day, htn oral 1.0 1.0 d 2024 Active magnesium oxide 400 mg magnesium tablet (magnesium oxide) 1 tablet, oral, Once A Day oral 1.0 1.0 d 2024 Hypomagnesemia Active metformin 750 mg tablet extended release 24 hr (metformin) 1 tablet, oral, Once A Day oral 1.0 1.0 d 04/06 Type 2 diabetes mellitus with hyperglycemia Active omeprazole 40 mg capsule,delaye d release(DR/EC) (omeprazole) 1 capsule, oral, Once A Day oral 1.0 1.0 d 2024 Gastro-esophag eal reflux disease without esophagitis Active prednisone 10 mg tablets,dose pack (prednisone) 6 tablets, oral, Once A Day, 6 tablets daily x 3 days then 4 tablets daily x 3 days, then 2 tablets daily x 3 days, then 1 tablet daily x 3 days oral 1.0 1.0 d 04/09 Active timolol 0.5 % drops (timolol) 1 drop, ophthalmic (eye), Twice A Day 1.0 12.0 h 2024 Glaucomatous flecks (subcapsular), bilateral Active Vitamin C (ascorbic acid (vitamin c)) 500 mg tablet (Vitamin C (ascorbic acid (vitamin c))) 1 tablet, oral, Once A Day oral 1.0 1.0 d 2024 Active Vital Signs Date Vital Result Comment 04/06/2024 04:39 PM Temperature 98.3 [degF] Oxygen Saturation 93 % Respiratory Rate 18 /min Heart Rate 81 /min Blood Pressure Systolic 130 mm[Hg] Blood Pressure Diastolic 80 mm[Hg] 04/06/2024 04:38 PM Oxygen Saturation 93 % 04/06/2024 02:54 PM Body mass index (BMI) [Ratio] 0.0 kg/m2 Body Weight 184 [lb_av] 04/06/2024 02:05 PM Temperature 98.3 [degF] Oxygen Saturation 93 % Respiratory Rate 18 /min Heart Rate 81 /min Blood Pressure Systolic 130 mm[Hg] Blood Pressure Diastolic 80 mm[Hg] Social History No smoking Hx information available Encounters Type CPT Code Date Location Provider Indication s encounter report 04/08/2022 12:0 0 AM - 04/21/2022 12:00 AM 01 encounter report 04/06/2024 12:5 0 PM - 04/06/2024 07:20 PM Moose Hu MD 02
--- OUTSIDE RECORDS SUMMARY | 2024-10-21 11:35 | XMS_ITS | Encounter Summary ---
Author Organization [employer] [facility] [employer] Address [id number] [address] [place] [address] Care Team Providers Care Supervisor Drapery Hanging Name Role Phone Unavailable Primary Care Provider Unavailabl e Encounter Details Date Type Department Care Team (Late st Contact Info) Description 07/17/2024 Telephone [facility] [address] [place] [phone] Crystal Mcdermott MD [address], [address] [address] Social History Tobacco Use Types Packs/Day Years [...] Cristiane Lorenzo - 07/17/2024 9:58 AM EDT [facility] is calling to clarify a medication sent in by . Davion states the patients insurance does not cover the generic for Xaretlo. Wanting to know if he would rather send name brand Xarelto 20mg 1x a day to make it cheaper for the patient. Please call Davion with [facility] pharmacy in [place] to clarify Medication directions. Best number to reach the pharmacy [phone]. Thank you. documented in this encounter Plan of Treatment Not on file documented as of this encounter Visit Diagnoses Not on filedocumented in this encounter
--- OUTSIDE RECORDS SUMMARY | 2024-10-21 11:36 | XMS_ITS | Clinical Summary ---
Author Organization [facility] Address [address], [address] [place] [address] Care Team Providers Care Pharmacy Technician Inpatient Name Role Phone Clayton Allred MD Primary Care Provider Allergies Active Allergy Reactions Criticality Noted Date Comments Sulfamethoxazole-Trimethoprim Rash Low 2022 Erythromycin Nausea And Vomiting High 12/08/2007 Levofloxacin Diarrhea 03/01/2022 Metformin Other (See Comments) Low 03/14/2023 Medications OMEPRAZOLE PO Take 40 mg by mouth daily Active glycopyrrolate- formoterol (BEVESPI) 9-4.8 MCG/ACT AERO Inhale 2 puffs into the lungs 2 times daily Active levothyroxine (SYNTHROID) 88 MCG tablet Take 1 tablet by mouth Daily Active losartan (COZAAR) 50 MG tablet Take 1 tablet by mouth daily Active metFORMIN (GLUCOPHAGE-XR) 750 MG extended release tablet Take 1 tablet by mouth daily (with breakfast) Active brimonidine (ALPHAGAN) 0.2 % ophthalmic solution Place 1 drop into both eyes 2 times daily Active timolol (BETIMOL) 0.25 % ophthalmic solution Place 1-2 drops into both eyes 2 times daily Active Lysine 1000 MG TABS Take by mouth Active Multiple Vitamin (MULTI VITAMIN MENS PO) Take by mouth Active Cyanocobalamin (VITAMIN B 12) 100 MCG LOZG Take by mouth daily Active allopurinol (ZYLOPRIM) 300 MG tablet TAKE 1 TABLET BY MOUTH EVERY DAY FOR 90 DAYS 3 Active atorvastatin (LIPITOR) 20 MG tablet TAKE 1 TABLET BY MOUTH EVERY DAY FOR 90 DAYS 3 Active Lancets (ONETOUCH DELICA PLUS TWISBC29A) MISC USE TO TEST 3 TIMES A DAY *DX E11.22* 3 Active albuterol sulfate HFA (PROVENTIL;VENT JOHN;PROAIR) 108 (90 Base) MCG/ACT inhaler 2 puffs as needed Inhalation every 4 hrs Active albuterol (PROVENTIL) (2.5 MG/3ML) 0.083% nebulizer solution 3 mL as needed Inhalation every 6 hrs Active latanoprost (XALATAN) 0.005 % ophthalmic solution 1 drop nightly Activ e magnesium oxide (MAG-OX) 400 (240 Mg) MG tablet Take 1 tablet by mouth daily 4 Active polyethylene glycol (GLYCOLAX) 17 GM/SCOOP powder Take 17 g by mouth daily Active BREZTRI AEROSPHERE 160-9-4.8 MCG/ACT AERO INHALE 2 PUFFS BY MOUTH TWICE DAILY. 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 Family History Medical History Relation Name Comments Lung Cancer Father Prostate Cancer Father No Known Problems Mother Relation Name Status Comments Father Mother Social History Tobacco Use Types Packs/Day Years Used Date Smoking Tobacco: Former Cigarettes Q uit: 02/19/1994 Smokeless Tobacco: Never Tobacco Cessation:Counseling Given: Not Answered Alcohol Use Standard Drinks/Week Comments Never 0 (1 standard drink = 0.6 oz pur e alcohol) Interpersonal Safety Domain Source: IP Abuse Scr eening Answer Date Recorded Read-Only, Retired: Physical Abuse Denies 10/03/2022 Read-Only, Retired: Verbal Abuse Denies 10/03/2022 Read-Only, Retired: Emotional abuse Denies 10/03/2022 Read-Only, Retired: Financial Abuse Denies 10/03/2022 Read-Only, Retired: Sexual abuse Denies 10/03/2022 Sex and Gender Information Value Date Recorded Sex Assigned at Not on file Legal Sex Male 11:41 PM EST Gender Identity Not on file Sexual Orientation Not on file Last Filed Vital Signs Vital Sign Reading Time Taken Comments Blood Pressure 124/76 11/22/2023 1:34 PM EDT Pulse 63 01/01/2023 2:12 PM EST Temperature 36.5 C (97.7 F) 11/22/2023 1:34 PM EDT Respiratory Rate 18 11/22/2023 1:34 PM EDT Oxygen Saturation 95% 10/03/2022 12:00 PM EDT Inhaled Oxygen Concentration - - Weight 87.1 kg (192 lb) 11/22/2023 1:34 PM EDT Height 180.3 cm (5' 11 ) 10/19/2022 11:36 AM EDT Body Mass Index 26.78 10/19/2022 11:36 AM EDT Plan of Treatment Health Maintenance Due Date Last Done Comments Lipids 1950 Depression Screen 1952 DTaP/Tdap/Td vaccine (1 - Tdap) 04/26/1959 Shingles vaccine (2 of 3) 02/18/2014 12/24/2013 Respiratory Syncytial Virus (RSV) or age 60 yrs+ (1 - 1-dose 75+ series) 04/26/2015 Annual Wellness Visit (Medicare) 01/15/2023 COVID-19 Vaccine ( season) 2023 12/11/2022, 12/04/2020, 04/07/2020, Additional history exists Flu vaccine (#1) 09/19/2024 12/04/2022, , 12/04/2020, Additional history exists Pneumococcal 50+ years Vaccine Completed 01/31/2017, 01/19/2017, 01/12/2016, Additional history exists Hepatitis A vaccine Aged Out No longe r eligible based on patient's age to complete this topic Hepatitis B vaccine Aged Out No longe r eligible based on patient's age to complete this topic Hib vaccine Aged Out No longer eligi ble based on patient's age to complete this topic Meningococcal (ACWY) vaccine Aged Out No longer eligible based on patient's age to complete this topic Meningococcal B vaccine Aged Out No l onger eligible based on patient's age to complete this topic Polio vaccine Aged Out No longer elig ible based on patient's age to complete this topic Insurance [place] [employer] MEDICARE SUPP Advance Directives * Full Code (Latest Code Status on File) Date Activated Date Inactivated Comments 10/03/2022 8:22 AM 10/03/2022 2:42 PM Care Teams Pharmacy Technician Inpatient Relationship Specialty Start Date End Date Clayton Allred MD PCP - General 03/01/22
--- OUTSIDE RECORDS SUMMARY | 2024-10-21 11:46 | XMS_ITS | CCD ---
Author Organization [facility] Care Team Providers Care Supervisor Forming And Tempering Name Role Phone Oumar Haynes Unavailable CLAYTON MCFADDEN Primary Care Physician [phone] MD Clayton Mcfadden Primary Care Provider MD Oumar Haynes Attending Provider [phone] Clayton Mcfadden MD Primary Care Provider KONG [...] SOSA ., DR THELMA Brown Admitting Unavailable FALLS CHURCH, DR ULISSES Ivey Consulting Unavailable SHAIKH Matilde LAU Attending Unavailable HEMEYER ., DR KAPADIA Primary Care Unavailable SHAIKH Matilde LAU Admitting Unavailable SOSA ., DR THELMA Brown Consulting Unavailable BRAXTON STREET Consulting Unavailable SHAIKH Matilde ALU Consulting Unavailable FAROOQ HARDEN Consulting Unavailable PONCHO [...] Unavailable Hemeyer Clayton GARCÍA Primary Care Provider [phone] CLAYTON MCFADDEN Primary Care Unavailable SUZY HUNTER Referring Unavailable ERICA RAMOS Referring Unavailable HEMECLAYTON SALEH Primary Care Unavailable HEMEYERCLAYTON Primary Care Unavailable TRISTON GONSALVES Referring Unavailable HEMECLAYTON SALEH Primary Care Unavailable ERICA RAMOS Admitting Unavailable ERICA RAMOS Attending Unavailable HEMECLAYTON SALEH Primary Care Unavailable TRISTON GONSALVES Referring Unavailable HEMEYERCLAYTON Primary Care Unavailable ERICA RAMOS Referring Unavailable Hemeyer, MD Edward J Primary Care Provider SHELBY Duff Attending Provider Horace Jasso Unavailable 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 Attending Unavailable 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 Admitting Unavailable Brigida, Edandrew Rivera Primary Care Unavailable Clayton Mcfadden MD Unavailable [phone] Clayton Mcfadden MD Primary Care Provider [phone] Briseida Paez RN Unavailable Unavailable Clayton Mcfadden MD Unavailable Clayton Mcfadden MD Primary Care Provider Briseida Paez RN Unavailable [phone] Clayton Mcfadden MD Unavailable Clayton Mcfadden MD Primary Care Provider [phone] Unavailable Primary Care Provider UnavailCRYSTAL Rachel Attending Unavailable Briseida Paez RN Unavailable HEMEYER, JASONWARD Miguel Attending Unavailable HEMEYER, EDWARD J Attending Unavailable HEMEYER, EDWARD J Attending Unavailable [facility] Attending Unavailable HEMEYER, EDWARD Miguel Attending Unavailable HEMEYER, EDWARD Miguel Attending Unavailable [place] [place] Attending Unavailable HEMEYER, EDWARD J Attending Unavailable HEMEYER, EDWARD J Attending Unavailable HEMEYER, EDWARD J Attending Unavailable [facility] A Attending Unavailable HEMEYER, EDWARD Miguel Attending Unavailable HEMEYER, EDWARD J Attending Unavailable HEMEYER, EDWARD J Attending Unavailable HEMEYER, JASONWARD J Attending Unavailable Allergies Allergy Classification Reported Allergen(s) Allergy Type Date of Onset Reaction(s) Facility (20 sources) Sulfamethoxazole / Trimethoprim; Translations: [sulfamethoxazole-t rimethoprim] Drug Allergy 06-21-19 23 Weal (disorder), Rash [facility] (2 sources) Tetracycline; Translations: [tetracycline] Drug Allergy Finding reported by subject or history provider (finding) [facility] (20 sources) Erythromycin Drug Allergy 12-08-19 08 Nausea And Vomiting, Rash [facility] (20 sources) levoFLOXacin; Translations: [LEVOFLOXACIN] Drug Allergy 03-01-19 Diarrhea, Rash KARIN RIVERA [employer] Work Phone: (1 source) Sulfamethoxazole / Trimethoprim Drug Allergy [facility] (20 sources) metFORMIN Drug Allergy 08-04-19 [facility] (20 sources) Erythromycin Base; Translations: [ERYTHROMYCIN BASE] Drug Allergy 08-04-19 Nausea Only [facility] (15 sources) Sulfonamides (Antibiotic); Translations: [SULFA (SULFONAMIDE ANTIBIOTICS)] Propensity to adverse reactions to drug 07-18-19 Rash [facility] Medications Current Medications Medication Drug Class(es) Dates Sig (Normalized) Sig (Original) [id number] 200 actuat albuterol 0.09 mg/actuat metered dose inhaler (20 sources) beta2-Adrenergic Agonist Start: 09-25-2022 take 2 puff(s) by inhalation every six hours for wheezing albuterol HFA 90 mcg/act inhaler Inhale 2 puffs every 6 (six) hours if needed for wheezing or shortness of breath 09/25/2022 Active albuterol (2.5 M G/3ML) 0.083% nebulizer solution Take 2.5 mg by nebulization every 8 (eight) hours if needed for wheezing Active take 2 puff(s) by in halation [...] mg) by mouth Daily 90 tablet 1 06/03/2024 11/30/2024 Active Start: 04-20-2022 End: 04-23-2023 [...] (Lipitor) 20 MG tablet Indications: Mixed hyperlipidemia Take 1 tablet (20 mg) by mouth in the evening 90 tablet 1 06/03/2024 11/30/2024 Active Start: 04-20-2022 End: 04-23-2023 [...] % SOLN Apply to eye 0 Active cefdinir 300 mg oral capsule (1 source) Cephalosporin Antibacterial Start: 09-03-2024 take 1 capsule by mouth in the morning cefdinir (Omnicef) 300 MG capsule Take 300 mg by mouth in the morning and 300 mg before bedtime. 09/03/2024 Active cefuroxime 500 mg oral tablet (3 [...] 05/09/2024 Active doxycycline hyclate 100 mg oral tablet (2 sources) Tetracycline-clas s Drug Start: 09-03-2024 take 1 tablet by mouth in the morning doxycycline (Vibra-Tabs) 100 MG tablet Take 100 mg by mouth in the morning and 100 mg before bedtime. 09/03/2024 Active Doxycycline Hycl ate 100 MG TAKE 1 CAPSULE ORALLY TWO TIMES DAILY 7 DAYS Oral for 7 Days Active Ecotrin Low Strength 81 MG (1 source) take 1 tablet by mouth once daily Ecotrin Low Strength 81 MG 1 tablet Orally Once a day for 30 day(s) Active 120 actuat formoterol fumarate 0.0048 mg/actuat / glycopyrrolate 0.009 mg/actuat metered dose inhaler (3 sources) beta2-Adrenergic Agonist Start: take 2 puff(s) by inhalation in the morning Bevespi Aerosphere 9-4.8 MCG/ACT aerosol Inhale 2 puffs in the morning and 2 puffs before bedtime. 0 09/29/2022 Active glycopyrrolate-f ormoterol (BEVESPI) 9-4.8 MCG/ACT AERO Inhale 2 puffs into the lungs 2 times daily 0 Active 12 hr guaiFENesin 600 mg extended release oral tablet (10 sources) take 1 tablet by mouth once daily, then take 1 tablet by mouth every twelve hours guaiFENesin (Mucinex) 600 MG 12 hr tablet Take 600 mg by mouth Daily Do not crush, chew, or split. Active 3 ml insulin aspart, human 100 unt/ml pen injector (20 sources) Insulin Analog Start: 11-12-2023 insulin aspart, with niacinamide, (Fiasp FlexTouch) 100 UNIT/ML injection Indications: Type 2 diabetes mellitus with stage 3a chronic kidney disease, with long-term current use of insulin (HCC) Sliding scale 3 times daily with meals; [...] with long-term current use of insulin (HCC) ([facility]/HCC) Sliding scale 3 times daily with [...] drop into both eyes at bedtime Active take 1 drop(s) into the eye(s) once daily latanoprost (XALATAN) 0.005 % ophthalmic solution Administer 1 drop to both eyes nightly. Active levoFLOXacin 500 mg oral tablet (1 source) Quinolone Antimicrobial Start: 11-23-2021 End: 12-21-2021 take 1 tablet by mouth every twenty-four hours Levaquin 500 mg Tab 500 mg = 1 tab(s), Oral, q24hr, X 4 week(s), # 28 tab(s), Refills(s) 0, Pharmacy: [facility]/pharmacy #[id number], 180, cm, 11/23/21 10:01:00 EDT, Height/Length Dosing, 84, kg, 11/23/21 10:01:00 EDT, Weight Dosing Start Date: 11/23/21 Stop Date: 12/21/21 Status: Ordered levothyroxine sodium 0.088 mg oral tablet (20 sources) l-Thyroxine Start: 01-15-2023 End: 10-23-2024 take 1 tablet by mouth before mealtime levothyroxine (Synthroid, Levoxyl) 88 MCG tablet Indications: Acquired hypothyroidism Take 1 tablet (88 mcg) by mouth in the morning. Take before meals. 90 tablet 1 04/26/2024 10/23/2024 Active Start: 11-23-2021 take 1 capsule by mo [facility] once daily levothyroxine 88 mcg (0.088 mg) oral capsule 88 mcg = 1 cap(s), Oral, Daily, # 30 cap(s), Refills(s) 0 Start Date: 11/23/21 Status: Ordered take 1 tablet by [facility] once daily levothyroxine (SYNTHROID) 88 MCG tablet Take 1 tablet by mouth Daily 0 Active losartan potassium 50 mg oral tablet (20 sources) Angiotensin 2 Receptor [place] Start: 05-22-2023 End: 11-30-2024 take 1 tablet by mouth once daily losartan (Cozaar) 50 MG tablet Indications: Benign essential hypertension Take 1 tablet (50 mg) by mouth Daily 90 tablet 1 06/03/2024 11/30/2024 Active Start: 11-23-2021 End: 04-23-2023 [...] End: 06-10-2025 take 1 tablet by mouth once daily magnesium oxide (Mag-Ox) 400 (240 Mg) MG tablet Take 400 mg by mouth Daily 09/12/2024 Active Start: 03-07-2023 magnesium oxid e (Mag-Ox) [...] with long-term current use of insulin (HCC) Take 1 tablet (750 mg) by mouth in the evening. Take with meals 90 tablet 1 06/03/2024 11/30/2024 Active Start: 10-25-2022 End: 04-23-2023 take 1 tablet by mouth every twenty-four hours at mealtime metFORMIN XR (Glucophage-XR) 750 MG 24 hr tablet Indications: Type 2 diabetes mellitus with stage 3a chronic kidney disease, with long-term current use of insulin (HCC) ([facility]/HCC) Take 1 tablet (750 mg) by mouth [...] tablet (20 sources) take 1 tablet by [facility] once daily Multiple Vitamins-Minerals (Multi For Him) [...] End: 10-23-2024 take 1 capsule by mouth before mealtime omeprazole (PriLOSEC) [address] capsule Indications: Gastroesophageal reflux disease without esophagitis Take 1 capsule (40 mg) by mouth in the morning. Take before meals. 90 capsule 1 04/26/2024 10/23/2024 Active Start: 05-12-2019 omeprazole Ora l, Daily, Refills(s) 0 Start Date: 05/12/19 Status: Ordered take 1 capsule by [facility] every twenty-four hours Omeprazole 20 MG 1 capsule Orally Once a day for 30 day(s) Active take 40 mg by mouth once daily O MEPRAZOLE PO Take 40 mg by mouth daily 0 Active polyethylene glycol 3350 53101 mg powder for oral solution (20 sources) Osmotic Laxative polyethylene gl ycol, PEG, 3350 (Glycolax) 17 GM/SCOOP powder Indications: Constipation Take 17 g by mouth Daily Active polymyxin b 94624 unt/ml / trimethoprim 1 mg/ml ophthalmic solution (2 sources) Dihydrofolate Reductase Inhibitor Antibacterial, Polymyxin-class Antibacterial Start: take 1 drop(s) into the eye(s) every four hours trimethoprim-polymyx in b (POLYTRIM) 52797-8.1 UNIT/ML-% ophthalmic solution Apply 1 drop to eye every 4 hours 0 12/08/2007 Active predniSONE 20 mg oral tablet (5 sources) Start: predniSONE (Deltasone) 20 MG tablet Take 20 mg by mouth 09/03/2024 Active Start: 04-07-2024 End: 04-19-2024 take 6 tablets [...] tablet 04/07/2024 04/19/2024 take 1 tablet by yuan in the morning predniSONE (DELTASONE) 10 mg tablet Take 1 tablet (10 mg total) by mouth in the morning. Taper 60mg x 3 days, 40mg x 3 days, 20mg- x 3 days, 10mg x 3 days. Active Probiotic Product (PROBIOTIC-10 PO) (1 source) Probiotic Produc t (PROBIOTIC-10 PO) Take by mouth 0 Active Ramipril (2 sources) Angiotensin Converting Enzyme Inhibitor Ramipril (ALTACE PO) Take by mouth 0 Active rivaroxaban 20 mg oral tablet (20 sources) Factor Xa Inhibitor Start: 07-31-19 take 1 tablet by mouth in the morning Xarelto 20 MG tablet Take 20 mg by mouth in the morning. 07/30/2024 Active Start: 07-17-2024 take 8 tablets by mo [facility] in the morning rivaroxaban (XARELTO) 2.5 mg tablet Take 8 tablets (20 mg total) by mouth in the morning. 720 tablet 2 07/17/2024 Active Start: 07-17-2024 End: 07-17-2024 rivaroxaban (XARELTO) tablet 20 mg Start: 07-03-2024 End: 08-04-2024 Xarelto Starter Pack 15 & 20 MG tablet therapy pack 07/03/2024 08/04/2024 Discontinued (Therapy completed) Start: 07-03-2024 Xarelto Starte r Pack 15 & 20 MG tablet therapy pack 07/03/2024 Active Start: 07-02-2024 End: 08-04-2024 rivaroxaban (Xarelto) 15 MG tablet 07/02/2024 08/04/2024 Discontinued (Therapy completed) sodium chloride 9 mg/ml inhalation solution (20 [...] 1-2 drops 2 times daily 0 Active traMADol hydrochloride 50 mg oral tablet (5 sources) Opioid Agonist Start: 09-22-2024 take 1 tablet by mouth every eight hours for pain traMADol (Ultram) 50 MG tablet Indications: Traumatic ecchymosis of lower back, initial encounter Take 1 tablet (50 mg) by mouth every 8 (eight) hours if needed for severe pain or moderate pain for up to 7 days 21 tablet 09/22/2024 Active Start: 07-07-2024 take 1 tablet by yuan th every eight hours for pain traMADol (Ultram) 50 MG tablet Indications: Acute deep vein thrombosis (DVT) of proximal vein of left lower extremity (HCC) Take 1 tablet (50 mg) by mouth every 8 (eight) hours if needed for moderate pain for up to 7 days 21 tablet 07/07/2024 Active vitamin b12 1 mg oral tablet (20 sources) Vitamin B12 cyanocobalamin ( Vitamin B-12) 1000 MCG tablet Take 2,500 mcg by mouth Daily Active Cyanocobalamin ( VITAMIN B 12) 100 MCG LOZG Take by mouth 0 Active Completed/Discontinued Medications Medication Drug Class(es) Dates Sig (Normalized) Sig (Original) FIBER COMPLETE PO (20 sources) take 1 tablet by yuan th once daily FIBER COMPLETE PO Take 1 [...] 30 day(s) Not-Taking/PRN Oxygen (19 sources) End: 5 oxygen (O2) gas Inhale 3 L/min at bedtime via nasal canula 06/03/2024 Discontinued (Therapy completed) oxygen (O2) gas Inhale 3 L/min at bedtime via nasal canula Active oxygen (O2) gas Inhale 2 L/min at bedtime via nasal canula Active oxygen (O2) gas Inhale 2 L/min at bedtime via nasal canula 0 Active Problems Active Problems Problem Classification Problem Date Documented Da te Episodic/Chronic Aortic; peripheral; and visceral artery aneurysms (20 sources) Abdominal aortic aneurysm 3.0 to 5.5 centimeters in male; Translations: [Abdominal aortic aneurysm, without rupture] Onset: 2 Resolved: 2 Chronic Cardiac dysrhythmias (1 source) Tachycardia; Translations: [Tachycardia, unspecified] Episodic Cataract (12 sources) Subcapsular glaucomatous flecks; Translations: [Glaucomatous flecks (subcapsular), bilateral] Onset: 5 08-04-2024 Chronic Chronic kidney disease (20 sources) Chronic kidney [...] disease (20 sources) Atherosclerotic heart disease of [place] coronary artery without angina pectoris; Translations: [Coronary [...] INIT] Onset: 3 Episodic E Codes: Fall (5 sources) Fall; Translations: [Unspecified fall, initial encounter] Episodic Esophageal disorders (20 sources) Gastroesophageal reflux disease; Translations: [Gastroesophageal reflux disease without esophagitis] Onset: 3 05-12-2019 Chronic Essential hypertension (20 sources) Hypertensive disorder; Translations: [Essential (primary) hypertension] Onset: 3 05-12-2019 Chronic Fluid and electrolyte disorders (1 source) Hypernatremia; Translations: [Hyperosmolality and hypernatremia] 06-10-2024 Episodic Genitourinary symptoms and ill-defined conditions (2 [...] [HORMONE REPLACEMENT THERAPY] Onset: 3 Episodic Mycoses (6 sources) Candidiasis of mouth; Translations: [Candidal stomatitis] 04-21-2024 Episodic Occlusion or stenosis of precerebral arteries (20 sources) Atherosclerosis of left carotid artery; Translations: [Occlusion and stenosis of left carotid artery] Onset: 6 Resolved: 3 08-03-2022 Chronic Open wounds of extremities (2 sources) Tear of skin; Translations: [Laceration without foreign body of left elbow, subsequent encounter] 08-04-2024 Episodic Osteoarthritis (20 sources) Arthritis of left hip; Translations: [Unilateral primary osteoarthritis, left hip] Onset: 3 08-03-2022 Chronic Other aftercare (1 source) ocean transportation intermediary (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 of aspirin; Translations: [ALF CURRENT USE OF ASPIRIN] Onset: 3 Episodic Other aftercare (1 source) Other [facility] (current) drug therapy; Translations: [OTH PRE PRESS PROOFER CURRENT DRUG THERAPY] Onset: 3 Episodic Other aftercare (1 source) halfway (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 of oral hypoglycemic drugs; Translations: [ALF USE ORAL HYPOGLYCEMIC DX] Onset: 3 Episodic Other aftercare (4 sources) Patient encounter status; Translations: [Encounter for [...] degeneration, bilateral] Onset: 6 08-03-2022 Chronic Other injuries and conditions due to external causes (2 sources) Injury of right hand; Translations: [Unspecified injury of right wrist, hand and finger(s), initial encounter] 08-20-2024 Episodic Other lower respiratory disease (20 sources) Interstitial [...] IN WALKING NEC] Onset: 3 Chronic Other non-traumatic joint disorders (2 sources) Pain in left shoulder; Translations: [Pain in joint, shoulder region] 08-04-2024 Episodic Other nutritional; endocrine; and metabolic disorders [...] DIS 2019] Onset: 3 Residual codes; unclassified (4 sources) Idiopathic sleep related non-obstructive alveolar hypoventilation; Translations: [Idiopathic sleep related nonobstructive alveolar hypoventilation] Onset: 5 09-22-2024 Chronic Residual codes; unclassified (2 sources) Other specified [...] without sciatica] 12-17-2023 Episodic Superficial injury; contusion (6 sources) Contusion of left foot; Translations: [Contusion [...] aftercare (20 sources) Polypharmacy ; Translations: [Other [facility] (current) drug therapy] Onset: 08-10-2019 09-25-2022 Episodic Other aftercare (20 sources) Long-term current use of inhaled steroid; Translations: [ocean transportation intermediary (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 of inhaled steroids] Onset: 09-12-2023 [...] caused by tuberculosis or sexually transmitted disease) (20 sources) Pneumonia, unspecified organism; Translations: [Pneumonia] Onset: 05-03-2022 Resolved: 10-09-2024 04-07-2024 Episodic Screening and history of mental [...] Test Name Value Interpretation Reference Range Facility No Panel InformationOrdered By: Radiologist Radiology on 09-22-2024 [facility] Work Phone: No Panel Informationon 09-22 Radiology Study observation (narrative) [facility] XR CHEST 2Von 09-22-[address] [address] XRay Report Signed Patient: CHEMA CHILDS Sr. MR#: [id number] : 1940 Acct:[id number] Age/Sex: 84 / M ADM Date: 09/22/24 Loc: RAD Attending Dr: CLAYTON MCFADDEN Ordering Physician: CLAYTON MCFADDEN Date of Service: 09/22/24 Procedure(s): XR chest 2V Accession Number(s): [id number] cc: CLAYTON MCFADDEN [address] [address] Patient Name: CHEMA CHILDS MRN: [id number] date: 1940 Sex: M Assigned Patient Location: RAD Current Patient Location: RAD Accession/Order Number: [id number] Exam Date: 09/22/2024 14:20 Report Date: 09/22/2024 14:21 At the request of: CLAYTON MCFADDEN Procedure: XR ribs RT 2V Chest 2 views left RIBS 6 views CLINICAL HISTORY: Rib Pain On Left Side, Fall, Interstitial Lung Disease COMPARISON: Chest 04/06/2024 FINDINGS: Chest: Heart appears normal in size. Chronic interstitial changes. No consolidation pneumothorax pleural effusion or free air. Improved aeration of the right lung when compared to the prior study. Left rib series: Bones are grossly demineralized. No displaced rib fracture is seen. XR/XR chest 2V IMPRESSION: IMPROVED AERATION OF THE RIGHT LUNG COMPARED TO THE PRIOR STUDY. CHRONIC INTERSTITIAL CHANGES. NO NEW CONSOLIDATION IS SEEN TO SUGGEST PNEUMONIA. NO DISPLACED LEFT-SIDED RIB FRACTURES Impression dictated by: Theodore Moss Jr., D.O. 09/22/2024 2:21 PM Dictation Location: [place] [address] Electronically authenticated by: [id number] Y Date: 09/22/2024 14:21 Dictated By: Theodore Moss M.D. Signed By: 09/22/24 1424 DD/ 142 TD/TT: Legal Clerk: [facility] Radiology, Radiologist, MD - 09/22/2024 [place] [address] XRay Report Signed Patient: CHEMA CHILDS Sr. MR#: [id number] : 1940 Acct:[id number] Age/Sex: 84 / M ADM Date: 09/22/24 Loc: RAD Attending Dr: CLAYTON MCFADDEN Ordering Physician: CLAYTON MCFADDEN Date of Service: 09/22/24 Procedure(s): XR chest 2V Accession Number(s): [id number] cc: CLAYTON MCFADDEN The [address] [address] Patient Name: CHEMA CHILDS MRN: [facility]:[id number] date: 1940 Sex: M Assigned Patient Location: [facility] Current Patient Location: RAD Accession/Order Number: [id number] Exam Date: 09/22/2024 14:20 Report Date: 09/22/2024 14:21 At the request of: CLAYTON MCFADDEN Procedure: XR ribs RT 2V Chest 2 views left RIBS 6 views CLINICAL HISTORY: Rib Pain On Left Side, Fall, Interstitial Lung Disease COMPARISON: Chest 04/06/2024 FINDINGS: Chest: Heart appears normal in size. Chronic interstitial changes. No consolidation pneumothorax pleural effusion or free air. Improved aeration of the right lung when compared to the prior study. Left rib series: Bones are grossly demineralized. No displaced rib fracture is seen. XR/XR chest 2V IMPRESSION: IMPROVED AERATION OF THE RIGHT LUNG COMPARED TO THE PRIOR STUDY. CHRONIC INTERSTITIAL CHANGES. NO NEW CONSOLIDATION IS SEEN TO SUGGEST PNEUMONIA. NO DISPLACED LEFT-SIDED RIB FRACTURES Impression dictated by: Thoedore Moss Jr., D.O. 09/22/2024 2:21 PM Dictation Location: [place] [address] Electronically authenticated by: [id number] Y Date: 09/22/2024 14:21 Dictated By: Theodore Moss M.D. Signed By: 09/22/24 1424 DD/ 142 TD/TT: Legal Clerk: [facility] XR RIBS RT 2Von 09-22-2024 [place] [address] XRay Report Signed Patient: CHEMA CHILDS Sr. MR#: [id number] : 1940 Acct:[id number] Age/Sex: 84 / M ADM Date: 09/22/24 Loc: RAD Attending Dr: CLAYTON MCFADDEN Ordering Physician: CLAYTON MCFADDEN Date of Service: 09/22/24 Procedure(s): XR ribs RT 2V Accession Number(s): [id number] cc: CLAYTON MCFADDEN [place] [id number] Patient Name: CHEMA CHILDS MRN: [id number] date: 1940 Sex: M Assigned Patient Location: [facility] Current Patient Location: RAD Accession/Order Number: [id number] Exam Date: 09/22/2024 14:20 Report Date: 09/22/2024 14:21 At the request of: CLAYTON MCFADDEN Procedure: XR ribs RT 2V Chest 2 views left RIBS 6 views CLINICAL HISTORY: Rib Pain On Left Side, Fall, Interstitial Lung Disease COMPARISON: Chest 04/06/2024 FINDINGS: Chest: Heart appears normal in size. Chronic interstitial changes. No consolidation pneumothorax pleural effusion or free air. Improved aeration of the right lung when compared to the prior study. Left rib series: Bones are grossly demineralized. No displaced rib fracture is seen. XR/XR ribs RT 2V IMPRESSION: IMPROVED AERATION OF THE RIGHT LUNG COMPARED TO THE PRIOR STUDY. CHRONIC INTERSTITIAL CHANGES. NO NEW CONSOLIDATION IS SEEN TO SUGGEST PNEUMONIA. NO DISPLACED LEFT-SIDED RIB FRACTURES Impression dictated by: Theodore Moss Jr., D.O. 09/22/2024 2:21 PM Dictation Location: [place] [address] Electronically authenticated by: [id number] Y Date: 09/22/2024 14:21 Dictated By: Theodore Moss M.D. Signed By: 09/22/24 1424 DD/ 20 TD/TT: Legal Clerk: [facility] Radiology, Radiologist, MD - 09/22/2024 [place] [address] XRay Report Signed Patient: CHEMA CHILDS Sr. MR#: [id number] : 1940 Acct:[id number] Age/Sex: 84 / M ADM Date: 09/22/24 Loc: RAD Attending Dr: CLAYTON MCFADDEN Ordering Physician: CLAYTON MCFADDEN Date of Service: 09/22/24 Procedure(s): XR ribs RT 2V Accession Number(s): [id number] cc: CLAYTON MCFADDEN [place] [id number] Patient Name: CHEMA CHILDS MRN: [facility]:[id number] date: 1940 Sex: M Assigned Patient Location: [facility] Current Patient Location: RAD Accession/Order Number: [id number] Exam Date: 09/22/2024 14:20 Report Date: 09/22/2024 14:21 At the request of: CLAYTON MCFADDEN Procedure: XR ribs RT 2V Chest 2 views left RIBS 6 views CLINICAL HISTORY: Rib Pain On Left Side, Fall, Interstitial Lung Disease COMPARISON: Chest 04/06/2024 FINDINGS: Chest: Heart appears normal in size. Chronic interstitial changes. No consolidation pneumothorax pleural effusion or free air. Improved aeration of the right lung when compared to the prior study. Left rib series: Bones are grossly demineralized. No displaced rib fracture is seen. XR/XR ribs RT 2V IMPRESSION: IMPROVED AERATION OF THE RIGHT LUNG COMPARED TO THE PRIOR STUDY. CHRONIC INTERSTITIAL CHANGES. NO NEW CONSOLIDATION IS SEEN TO SUGGEST PNEUMONIA. NO DISPLACED LEFT-SIDED RIB FRACTURES Impression dictated by: Theodore Moss Jr., D.O. 09/22/2024 2:21 PM Dictation Location: [place] [address] Electronically authenticated by: [id number] Y Date: 09/22/2024 14:21 Dictated By: Theodore Moss M.D. Signed By: 09/22/24 1424 DD/ 20 TD/TT: Legal Clerk: [employer] US.doppler Lower extremity v ein - lefton 07-02-2024 Interpretation and review of laboratory results Abnormal [facility] CHEST 2Von 03-24-2024 [place] [address] XRay Report Signed Patient: CHEMA CHILDS MR#: [id number] : 1940 Acct:[id number] Age/Sex: 83 / M ADM Date: 03/24/24 Loc: RAD Attending Dr: Zoila Javed D.O. Ordering Physician: Zoila Javed D.O. Date of Service: 03/24/24 Procedure(s): XR chest 2V Accession Number(s): [id number] cc: CLAYTON MCFADDEN ; Zoila Javed D.O. [address] [address] Patient Name: CHEMA CHILDS MRN: [id number] date: 1940 Sex: M Assigned Patient Location: RAD Current Patient Location: RAD Accession/Order Number: [id number] Exam Date: 03/24/2024 13:35 Report Date: 03/24/2024 [...] not changed significantly. Electronically authenticated by: GEORGIA OROZCO Date: 03/24/2024 14:08 Dictated By: Georgia Orozco M.D. Signed By: 03/24/24 1410 DD/ 1408 TD/TT: Legal Clerk: [facility] Radiology, Radiologist, - 03/24/2024 [place] [address] XRay Report Signed Patient: CHEMA CHILDS MR#: [id number] : 1940 Acct:[id number] Age/Sex: 83 / M ADM Date: 03/24/24 Loc: RAD Attending Dr: Zoila Javed D.O. Ordering Physician: Zoila Javed D.O. Date of Service: 03/24/24 Procedure(s): XR chest 2V Accession Number(s): [id number] cc: CLAYTON MCFADDEN ; Zoila Javed D.O. The [place] [id number] Patient Name: CHEMA CHILDS MRN: [facility]:[id number] date: 1940 Sex: M Assigned Patient Location: RAD Current Patient Location: RAD Accession/Order Number: [id number] Exam Date: 03/24/2024 13:35 Report Date: 03/24/2024 14:08 At the request of: ZOILA ALEXANDRA Procedure: XR chest 2V EXAM: XR chest [...] not changed significantly. Electronically authenticated by: GEORGIA OROZCO Date: 03/24/2024 14:08 Dictated By: Georgia Orozco M.D. Signed By: 03/24/24 1410 DD/ 1408 TD/TT: Legal Clerk: [facility] Radiology Study observation (narrative) [facility] XR CHEST 2VOrdered By: [facility] on 03-24-2024 [facility] Work Phone: Urinalysis macro (dipstick) panel (U)on 12-17-2023 Bilirubin, UA Negative Negative - 4(70) +++ mg/dL [facility] Blood, UA Negative Negative - 50 Silver/mcL [facility] Clarity, UA Clear [facility] Color, UA Light Yellow [facility] Glucose, UA Negative Negative - 1999(110) ++++ mg/dL [facility] Interpretation and review of laboratory results Normal [facility] Ketones, UA Negative Negative - 160(16) ++++ mg/dL [facility] Leukocytes, UA Negative Negative - 500+++ Ava/mcL [facility] Nitrite, UA Negative Negative - Positive [facility] pH, UA 6 5 - 9 [facility] Protein, UA Negative Negative - 2000(20) ++++ mg/dL [facility] Spec Grav, UA 1.005 1 - 1.03 [facility] Urobilinogen, UA 0.2 0.2 - 12 mg/dL [facility] MLR HEMOGLOBIN A1Con 024 Glucose [Mass/Vol] 117 mg/dL [facility] HbA1c (Bld) [Mass fraction] 5.7 % 4.5 - 6.2 % [facility] Comment on above: ADA RECOMMENDED LIMI T 4.0 - 6.0 ADA THERAPEUTIC TARGET < 7.0 ACTION SUGGESTED > 7.0 [facility] US aortaon 01-31-2023 US aorta [facility] [place] [address] [place] [address] Ultrasound Report Signed Patient: Chema Childs SR MR#: [id number] : 1940 Acct:[id number] Age/Sex: 82 / M ADM Date: 01/31/23 Loc: [facility] Room: Type: [facility] Attending Dr: 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 RN ANESTHESIOLOGY-C Ordering Provider: 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 APRN Date of [...] Horace Jasso MD01/31/2023 11:09 AM Dictation Location: [place] [address] Tech: Gabriela Hernandezce Transcribed By: [facility] 01/31/231108 Dictated By: Horace Jasso MD 01/31/231105 Signed By: 01/31/231108 [facility] Cult,Urineon 12-02-2022 Cult,Urine Specimen Description .CLEAN CATCH URINE Culture NO GROWTH Report Status FINAL 12/02/2022 [facility] Comment on above: Performed By: #### U #### [facility] [address] [place] [address] Business Segment Manager: Sandip Smith MD [address] [place] [address] Business Segment Manager: Ulisses Gaines MD OPERATIVE REPORTon 3 OPERATIVE REPORT [address] [address] OPERATIVE REPORT PATIENT NAME: CHEMA CHILDS : 1940 [facility] REC NO: [id number] ROOM: ACCOUNT NO: [id number] ADMIT DATE: 10/03/2022 PROVIDER: Erica Ramos DATE OF PROCEDURE: 10/03/2022 SURGEON: Dr. Erica Ramos. VIDEO NETWORK ENGINEER: None. PREOPERATIVE DIAGNOSES: 1. BPH with lower [...] obtained. [facility] table, where [...] awoken from general anesthesia, transferred to the [facility], and taken to the PACU in satisfactory condition by Nursing and Anesthesia Teams. PLAN: The patient will be discharged home per PACU criterion and follow up with us in [id number] days for Gould catheter removal. ERICA RAMOS /[id number] Doc#: [id number] CC: [facility] Cult,Urineon 08-29-2022 Cult,Urine Specimen Description .CLEAN CATCH URINE Culture NO GROWTH Report Status FINAL 08/29/2022 [facility] Comment on above: Performed By: #### U RC #### [address] [id number] Business Segment Manager: Sandip Smith MD [address] [place] [address] Business Segment Manager: Ulisses Gaines MD Urinalysis w/ Microon 2022 Bacteria 1+ Abnormal NONE [facility] Comment on above: Performed By: #### U AMIC #### [address] [place] [address] Business Segment Manager: Ulisses Gaines MD Bilirubin, SemiQt,Ur Negative Normal NEG [facility] Comment on above: Performed By: #### U AMIC #### [facility] [address] [place] [address] [place] [address] Business Segment Manager: Ulisses Gaines MD Blood, Urine Negative Normal NEG [facility] Comment on above: Performed By: #### U AMIC #### [facility] [address] [place] [address] [place] [address] Business Segment Manager: Ulisses Gaines MD Clarity (U) Clear Normal CLEAR [facility] Comment on above: Performed By: #### U AMIC #### [facility] [address] [place] [address] Dr. [place], [place] [id number] Business Segment Manager: Ulisses Gaines MD Color (U) Yellow Normal YEL [facility] Comment on above: Performed By: #### U AMIC #### [facility] [address] [place] [address] Dr. [place], [place] [id number] Business Segment Manager: Ulisses Gaines MD Epithelial cells LM Ql (Urine sed) 0 TO 2 Normal 0-5 [facility] Comment on above: Performed By: #### U AMIC #### [facility] [address] [place] [address] Dr. [place], [place] [phone] Business Segment Manager: Ulisses Gaines MD Glucose Ql (U) Negative Normal NEG [facility] Comment on above: Performed By: #### U AMIC #### [address] [place], [place] [id number] Business Segment Manager: Ulisses Gaines MD Ketones Ql (U) Negative Normal NEG [facility] Comment on above: Performed By: #### U AMIC #### [address] [place], [place] [id number] Business Segment Manager: Ulisses Gaines MD Leukocyte esterase Test strip Ql (U) Negative Normal NEG [facility] Comment on above: Performed By: #### U AMIC #### [facility] [address] [place] [address] Dr. [place], [place] [phone] Business Segment Manager: Ulisses Gaines MD Nitrite,Ur Negative Normal NEG [facility] Comment on above: Performed By: #### U AMIC #### [address] [place] [address] Business Segment Manager: Ulisses Gaines MD PH,Ur 6.0 Normal 5.0-9.0 [facility] Comment on above: Performed By: #### U AMIC #### [facility] [address] [place], [place] [phone] Business Segment Manager: Ulisses Gaines MD Protein Ql (U) Negative Normal NEG [facility] Comment on above: Performed By: #### U AMIC #### [facility] [address] [place], [place] [phone] Business Segment Manager: Ulisses Gaines MD Spec. [place],Ur 1.015 Normal 1.010-1.[address] [facility] Comment on above: Performed By: #### U AMIC #### [facility] [address] [place] [address] Dr. [place], [place] [phone] Business Segment Manager: Ulisses Gaines MD Urine RBC's None Normal 0-2 [facility] Comment on above: Performed By: #### U AMIC #### [address] [place], [place] [address] Business Segment Manager: Ulisses Gaines MD Urine WBC's 0 TO 2 Normal 0-5 [facility] Comment on above: Performed By: #### U AMIC #### [address] [place], [place] [phone] Business Segment Manager: Ulisses Gaines MD Urobilinogen,Ur Normal Normal NORM [facility] Comment on above: Performed By: #### U AMIC #### [facility] [address] [place] [address] Dr[place], [place] [phone] Business Segment Manager: Ulisses Gaines MD Cult,Urineon 08-10-2022 Cult,Urine Specimen Description .CLEAN CATCH URINE Culture NO GROWTH Report Status FINAL 08/10/2022 Normal [facility] Comment on above: Performed By: #### U RC #### [facility] [address] [place] [address] Business Segment Manager: Sandip Smith MD [facility] [address] [place] [address] [place] [address] Business Segment Manager: Ulisses Gaines MD HEMOGLOBINon 07-03-2022 Hemoglobin (Bld) [Mass/Vol] 13.6 g/dL Critically low 14.0-18.0 [facility] Comment on above: Performed By: #### P OCGLUC #### [facility] [address] [place] [address] [address] CHEST WO CONon [...] PAULINA BOWLES Date: 2022-06-26 16:34 Normal [facility] PULMONARY FUNCTION TESTon PULMONARY FUNCTION TEST [...] oxygen. Clinical correlation is required. Normal [facility] Cult,Urineon 06-15-2022 Cult,Urine Specimen Description .CLEAN CATCH URINE Culture NO GROWTH Report Status FINAL 06/15/2022 Normal [facility] Comment on above: Performed By: #### U RC #### [facility] [address] [place] [address] Business Segment Manager: Sandip Smith MD [facility] [address] [address] Business Segment Manager: Ulisses Gaines MD CBC AUTO DIFFon 04-19-2022 BASO # 0.0 103/ul Normal 0.0-0.1 [facility] Comment on above: Performed By: #### L ACT #### [facility] [address] [place] [address] [address] Kerrie Stark Basophils/100 WBC (Bld) 0.2 % Normal 0.2-2.0 [facility] Comment on above: Performed By: #### L ACT #### [facility] [address] [place] [address] [address] Kerrie Stark EO # 0.0 103/ul Normal 0.0-0.7 [facility] Comment on above: Performed By: #### L ACT #### [facility] [address] [place] [address] [address] Kerrie Stark Eosinophils/100 WBC (Bld) 0.2 % Critically low 0.9-7.0 [facility] Comment on above: Performed By: #### L ACT #### [facility] [address] [place] [address] [address] Kerrie Stark Erythrocyte distribution width (RBC) [Ratio] 13.3 % Normal 11.0-15.0 [facility] Comment on above: Performed By: #### L ACT #### [facility] [address] [place] [address] [address] Kerrie Stark Hematocrit (Bld) [Volume fraction] 38.8 % Critically low 42.0-54.0 [facility] Comment on above: Performed By: #### L ACT #### [facility] [address] [place] [address] [address] Kerrie Stark Hemoglobin (Bld) [Mass/Vol] 13.1 g/dL Critically low 14.0-18.0 [facility] Comment on above: Performed By: #### L ACT #### [facility] [address] [place] [address] Dr. Kerrie Stark IG # 0.35 10e3/ul Critically high 0.00-0.03 [facility] Comment on above: Performed By: #### L ACT #### [facility] [address] [place] [address] Dr. Kerrie Stark IG % 2.6 % Critically high 0.0-0.5 [facility] Comment on above: Performed By: #### L ACT #### [facility] [address] [place] [address] Dr. Kerrie Stark LYMPH # 1.3 103/ul Normal 1.2-3.8 [facility] Comment on above: Performed By: #### L ACT #### [facility] [address] [place] [address] Dr. Kerrie Stark Lymphocytes/100 WBC (Bld) 9.7 % Critically low 20.5-60.0 [facility] Comment on above: Performed By: #### L ACT #### [facility] [address] [place] [address] Dr. Kerrie Stark MANUAL DIFF REQ NO Normal [facility] Comment on above: Performed By: #### L ACT #### [facility] [address] [place] [address] Dr. Kerrie Stark MCH (RBC) [Entitic mass] 32.8 pg Normal 25.9-34.0 [facility] Comment on above: Performed By: #### L ACT #### [facility] [address] [place] [address] [address] Kerrie Stark MCHC (RBC) [Mass/Vol] 33.8 g/dL Normal 29.9-35.2 [facility] Comment on above: Performed By: #### L ACT #### [facility] [address] [place] [address] [address] Kerrie Stark MCV (RBC) [Entitic vol] 97.2 fL Critically high 80.0-94.0 [facility] Comment on above: Performed By: #### L ACT #### [facility] [address] [place] [address] [address] Kerrie Stark MONO # 0.8 103/ul Normal 0.3-0.8 [facility] Comment on above: Performed By: #### L ACT #### [facility] [address] [place] [address] [address] Kerrie Stark Monocytes/100 WBC (Bld) 5.9 % Normal 1.7-12.0 [facility] Comment on above: Performed By: #### L ACT #### [facility] [address] [place] [address] [address] Kerrie Stark NEUT # 10.8 103/ul Critically high 1.4-6.[address] [facility] Comment on above: Performed By: #### L ACT #### [facility] [address] [place] [address] [address] Kerrie Stark Neutrophils/100 WBC (Bld) 81.4 % Critically high 43.0-75.0 [facility] Comment on above: Performed By: #### L ACT #### [facility] [address] [place] [address] [address] Kerrie Stark Platelet mean volume (Bld) [Entitic vol] 10.4 fL Normal 9.5-13.5 [facility] Comment on above: Performed By: #### L ACT #### [facility] [address] [place] [address] [address] Kerrie Stark PLT 158 103/ul Normal 150-450 [facility] Comment on above: Performed By: #### L ACT #### [facility] [address] [place] [address] [address] Kerrie Stark RBC 3.99 106/ul Critically low 4.70-6.10 [facility] Comment on above: Performed By: #### L ACT #### [facility] [address] [place] [address] [address] Kerrie Stark WBC 13.2 103/ul Critically high 4.0-11.[address] [facility] Comment on above: Performed By: #### L ACT #### [facility] [address] [place] [address] [address] Kerrie Stark GLYCOHEMOGLOBIN A1Con 2022 ADA RECOMMENDATION SEE BELOW Normal [facility] Comment on above: Result Comment: ADA RECOMMENDED LIMIT 4.0 - 6.0 ADA THERAPEUTIC TARGET < 7.0 ACTION SUGGESTED > 7.0 Performed By: #### P OCGLUC #### [facility] [address] [place] [address] Dr. Kerrie Stark Glucose [Mass/Vol] 206 mg/dL Normal [facility] Comment on above: Performed By: #### P OCGLUC #### [facility] [address] [place] [address] [address] Kerrie Stark HbA1c (Bld) [Mass fraction] 8.8 % Critically high 4.5-6.2 [facility] Comment on above: Performed By: #### P OCGLUC #### [facility] [address] [place] [address] Dr. Kerrie Stark LIPID PROFILEon 04-19-2022 CHOL-HDL RATIO NORM SEE BELOW Normal [facility] Comment on above: Result Comment: 3.3 - 4.4 LOW RISK 4.4 - 7.1 AVERAGE RISK 7.1 - 11.0 MODERATE RISK >11.0 HIGH RISK Performed By: #### D DIM #### [facility] [address] [place] [address] Dr. Kerrie Stark Cholesterol [Mass/Vol] 134 mg/dL Normal <=200 [facility] Comment on above: Performed By: #### D DIM #### [facility] [address] [place] [address] [address] Kerrie Stark Cholesterol in HDL [Mass/Vol] 46 mg/dL Normal 40-60 [facility] Comment on above: Performed By: #### D DIM #### [facility] [address] [place] [id number] Kerrie Stark Cholesterol in LDL [Mass/Vol] 65.8 mg/dL Normal [facility] Comment on above: Performed By: #### D DIM #### [facility] [address] [place] [address] [address] Kerrie Stark Cholesterol.total/Chol esterol in HDL [Mass ratio] 2.9 {ratio} Normal [facility] Comment on above: Performed By: #### D DIM #### [facility] [address] [place] [address] [address] Kerrie Stark HDL NORMAL > or = 60 mg/dl - LOW CARDIOVASCULAR RISK <40 mg/dl - HIGH CARDIOVASCULAR RISK Normal [facility] Comment on above: Performed By: #### D DIM #### [facility] [address] [place] [address] [address] Kerrie Stark LDL CALC NORMAL SEE BELOW Normal [facility] Comment on above: Result Comment: <100 mg/dl OPTIMAL 100 - 129 mg/dl NEAR OR ABOVE OPTIMAL 130 - 159 mg/dl BORDERLINE HIGH 160 - 189 mg/dl HIGH >190 mg/dl VERY HIGH Performed By: #### D DIM #### [facility] [address] [place] [address] [address] Kerrie Stark Triglyceride [Mass/Vol] 111 mg/dL Normal <=150 [facility] Comment on above: Performed By: #### D DIM #### [facility] [address] [place] [address] [address] Kerrie Stark VLDL CALC 22.2 mg/dL Normal [facility] Comment on above: Performed By: #### D DIM #### [facility] [address] [place] [address] [address] Kerrie Stark PROF 14(COMP METB)on 023 Albumin [Mass/Vol] 2.6 g/dL Critically low 3.4-5.0 [facility] Comment on above: Performed By: #### D DIM #### [facility] [address] [place] [address] [address] Kerrie Stark Albumin/Globulin [Mass ratio] 0.8 {ratio} Normal [facility] Comment on above: Performed By: #### D DIM #### [facility] [address] [place] [address] [address] Kerrie Stark ALP [Catalytic activity/Vol] 49 U/L Normal 46-116 [facility] Comment on above: Performed By: #### D DIM #### [facility] [address] [place] [address] [address] Kerrie Stark ALT [Catalytic activity/Vol] 27 U/L Normal 16-63 [facility] Comment on above: Performed By: #### D DIM #### [facility] [address] [place] [address] Dr. Kerrie Stark Anion gap [Moles/Vol] 12.1 mmol/L Normal [facility] Comment on above: Performed By: #### D DIM #### [facility] [address] [place] [address] Dr. Kerrie Stark AST [Catalytic activity/Vol] 19 U/L Normal 15-37 [facility] Comment on above: Performed By: #### D DIM #### [facility] [address] [place] [address] Dr. Kerrie Stark Bilirubin [Mass/Vol] 0.6 mg/dL Normal 0.2-1.0 [facility] Comment on above: Performed By: #### D DIM #### [facility] [address] [place] [address] Dr. Kerrie Stark Calcium [Mass/Vol] 9.0 mg/dL Normal 8.5-10.1 [facility] Comment on above: Performed By: #### D DIM #### [facility] [address] [place] [address] Dr. Kerrie Stark Chloride [Moles/Vol] 102 mmol/L Normal 98-107 [facility] Comment on above: Performed By: #### D DIM #### [facility] [address] [place] [address] [address] Kerrie Stark CO2 [Moles/Vol] 27.0 mmol/L Normal 21.0-32.[address] [facility] Comment on above: Performed By: #### D DIM #### [facility] [address] [place] [address] Dr. Kerrie Stark Creatinine [Mass/Vol] 0.90 mg/dL Normal 0.70-1.30 [facility] Comment on above: Performed By: #### D DIM #### [facility] [address] [place] [address] Dr. Kerrie Stark EGFR-AF MONEGASQUE >60 Normal >=[address] [facility] Comment on above: Performed By: #### D DIM #### [facility] [address] [place] [address] Dr. Kerrie Stark EGFR-NON AF MONEGASQUE >60 Normal >=60 [facility] Comment on above: Performed By: #### D DIM #### [facility] [address] [place] [address] Dr. Kerrie Stark Globulin (S) [Mass/Vol] 3.2 g/dL Normal [facility] Comment on above: Performed By: #### D DIM #### [facility] [address] [place] [address] Dr. Kerrie Stark Glucose [Mass/Vol] 104 mg/dL Normal 74-106 [facility] Comment on above: Performed By: #### D DIM #### [facility] [address] [place] [address] Dr. Kerrie Stark Potassium [Moles/Vol] 4.1 mmol/L Normal 3.5-5.1 [facility] Comment on above: Performed By: #### D DIM #### [facility] [address] [place] [address] Dr. Kerrie Stark Protein [Mass/Vol] 5.8 g/dL Critically low 6.4-8.2 [facility] Comment on above: Performed By: #### D DIM #### [facility] [address] [place] [address] Dr. Kerrie Stark Sodium [Moles/Vol] 137 mmol/L Normal 136-145 [facility] Comment on above: Performed By: #### D DIM #### [facility] [address] [place] [address] Dr. Kerrie Stark Urea nitrogen [Mass/Vol] 31.0 mg/dL Critically high 7.0-18.0 [facility] Comment on above: Performed By: #### D DIM #### [facility] [address] [place] [address] Dr. Kerrie Stark Urea nitrogen/Creatinine [Mass ratio] 34.4 mg/mg Normal [facility] Comment on above: Performed By: #### D DIM #### [facility] [address] [place] [address] Dr. Kerrie Stark TSHon 04-19-2022 TSH 0.699 uIU/mL Normal 0.358-3.[address] [facility] Comment on above: Performed By: #### D DIM #### [facility] [address] [place] [address] Dr. Kerrie Stark VITAMIN D 25 OHon 04-19-2022 VIT D 25-OH 53.9 ng/mL Normal [facility] Comment on above: Performed By: #### D DIM #### [facility] [address] [place] [address] Dr. Kerrie Stark VIT D RANGES SEE BELOW Normal [facility] Comment on above: Result Comment: <20 ng/mL Vit D deficient 20 - <30 ng/mL Vit D insufficient 30 - 100 ng/mL Vit D sufficient >100 ng/mL Potential Toxicity Performed By: #### D DIM #### [facility] [address] [place] [address] Dr. Kerrie Stark CBC W MANUAL DIFFon 04-08-19 23 ATYPICAL LYMPH # Normal [facility] Comment on above: Performed By: #### L ACT #### [facility] [address] [place] [address] Dr. Kerrie Stark ATYPICAL LYMPH % Normal [facility] Comment on above: Performed By: #### L ACT #### [facility] [address] [place] [address] Dr. Kerrie Stark BAND # 0.0 103/ul Normal 0.0-0.3 [facility] Comment on above: Performed By: #### L ACT #### [facility] [address] [place] [address] Dr. Kerrie Stark BAND % 0 % Normal 0-5 [facility] Comment on above: Performed By: #### L ACT #### [facility] [address] [place] [address] Dr. Kerrie Stark BASOM # 0.00 103/ul Normal 0.00-0.10 [facility] Comment on above: Performed By: #### L ACT #### [facility] [address] [place] [address] Dr. Kerrie Stark BASOM % 0.0 % Critically low 0.2-2.0 [facility] Comment on above: Performed By: #### L ACT #### [facility] [address] [place] [address] Dr. Kerrie Stark BLAST # Normal [facility] Comment on above: Performed By: #### L ACT #### [facility] [address] [place] [address] Dr. Kerrie Stark BLAST % Normal [facility] Comment on above: Performed By: #### L ACT #### [facility] [address] [place] [address] Dr. Kerrie Stark CORRECTED WBC Normal 4.0-11.0 [facility] Comment on above: Performed By: #### L ACT #### [facility] [address] [place] [address] Dr. Kerrie Stark EOS # 0.00 103/ul Normal 0.00-0.70 [facility] Comment on above: Performed By: #### L ACT #### [facility] [address] [place] [address] Dr. Kerire Stark EOS% 0.0 % Critically low 0.9-7.0 [facility] Comment on above: Performed By: #### L ACT #### [facility] [address] [place] [address] Dr. Kerrie Stark HCT 36.7 % Critically low 42.0-54.0 [facility] Comment on above: Performed By: #### L ACT #### [facility] [address] [place] [address] Dr. Kerrie Stark HGB 12.5 g/dl Critically low 14.0-18.0 [facility] Comment on above: Performed By: #### L ACT #### [facility] [address] [place] [address] Dr. Kerrie Stark LYMPHM # 0.22 103/ul Critically low 1.20-3.80 [facility] Comment on above: Performed By: #### L ACT #### [facility] [address] [place] [address] Dr. Kerrie Stark LYMPHM% 2.0 % Critically low 20.5-60.0 [facility] Comment on above: Performed By: #### L ACT #### [facility] [address] [place] [address] Dr. Kerrie Stark MCH 32.6 pg Normal 25.9-34.0 [facility] Comment on above: Performed By: #### L ACT #### [facility] [address] [place] [address] Dr. Kerrie Stark MCHC 34.1 g/dl Normal 29.9-35.2 [facility] Comment on above: Performed By: #### L ACT #### [facility] [address] [place] [address] Dr. Kerrie Stark MCV 95.8 fL Critically high 80.0-94.0 [facility] Comment on above: Performed By: #### L ACT #### [facility] [address] [place] [address] Dr. Kerrie Stark METAMYELOCYTE # Normal [facility] Comment on above: Performed By: #### L ACT #### [facility] [address] [place] [address] Dr. Kerrie Stark METAMYELOCYTE % Normal [facility] Comment on above: Performed By: #### L ACT #### [facility] [address] [place] [address] Dr. Kerrie Stark MONOM# 0.34 103/ul Normal 0.30-0.80 [facility] Comment on above: Performed By: #### L ACT #### [facility] [address] [place] [address] Dr. Kerrie Stark MONOM% 3.0 % Normal 1.7-12.0 [facility] Comment on above: Performed By: #### L ACT #### [facility] [address] [address] [address] Kerrie Stark MPV 10.9 fL Normal 9.5-13.5 [facility] Comment on above: Performed By: #### L ACT #### [facility] [address] [place] [address] Dr. Kerrie Stark MYELOCYTE # 0.1 103/ul Normal [facility] Comment on above: Performed By: #### L ACT #### [facility] [address] [place] [address] Dr. Kerrie Stark MYELOCYTE % 1 % Normal [facility] Comment on above: Performed By: #### L ACT #### [facility] [address] [place] [address] Dr. Kerrie Stark NRBC Normal [facility] Comment on above: Performed By: #### L ACT #### [facility] [address] [place] [address] Dr. Kerrie Stark PLT 140 103/ul Critically low 150-450 [facility] Comment on above: Performed By: #### L ACT #### [facility] [address] [place] [address] Dr. Kerrie Stark RBC 3.83 106/ul Critically low 4.70-6.10 [facility] Comment on above: Performed By: #### L ACT #### [facility] [address] [place] [address] Dr. Kerrie Stark RDW 12.9 % Normal 11.0-15.0 [facility] Comment on above: Performed By: #### L ACT #### [facility] [address] [place] [address] Dr. Kerrie Stark SEG # 10.53 103/ul Critically high 1.40-6.50 [facility] Comment on above: Performed By: #### L ACT #### [facility] [address] [address] [address] Kerrie Stark SEG % 94.0 % Critically high 43.0-75.0 [facility] Comment on above: Performed By: #### L ACT #### [facility] [id number] Kerrie Stark WBC 11.2 103/ul Critically high 4.0-11.[address] [facility] Comment on above: Performed By: #### L ACT #### [facility] [address] [address] [address] Kerrie Stark Covid-19 PCR ([facility])on 03-22 SARS-CoV-2 (COVID-19) RNA QUE+probe Ql (Unsp spec) Detected Abnormal NOT DETECTED [facility] Comment on above: Result Comment: This test is not yet approved or cleared by the [place] FDA. When there are no FDA-approved or cleared tests available, and other criteria are met, FDA can make tests available under an emergency access mechanism called an Emergency Use Authorization (EUA). The EUA for this test is supported by the [place] of Health and Human Service's declaration that [...] used). Performed By: #### L ACT #### [facility] [id number] Kerrie Stark LACTATE/LACTIC ACIDon 2022 Lactate [Moles/Vol] 1.3 mmol/L Normal 0.4-1.9 [facility] Comment on above: Performed By: #### L ACT #### [facility] [id number] Kerrie Stark POINT OF CARE GLUCOSEon 03-22 Glucose [Mass/Vol] 344 mg/dL Critically high 74-106 [facility] Comment on above: Performed By: #### L ACT #### [facility] [address] [place] [address] Dr. Kerrie Stark Glucose [Mass/Vol] 242 mg/dL Critically high 74-106 [facility] Comment on above: Performed By: #### P OCGLUC #### [facility] [address] [place] [address] Dr. Kerrie Stark PROCALCITONINon 04-08-2022 Procalcitonin 0.06 ng/mL Normal 0.00-0.[address] [facility] Comment on above: Result Comment: . [...] obtained. Performed By: #### D DIM #### [facility] [address] [place] [address] Dr. Kerrie Stark PROF 14(COMP METB)on 023 Albumin [Mass/Vol] 2.0 g/dL Critically low 3.4-5.0 [facility] Comment on above: Performed By: #### P OCGLUC #### [facility] [address] [place] [address] Dr. Kerrie Stark Albumin/Globulin [Mass ratio] 0.5 {ratio} Normal [facility] Comment on above: Performed By: #### P OCGLUC #### [facility] [address] [address] [address] Kerrie Stark ALP [Catalytic activity/Vol] 61 U/L Normal 46-116 [facility] Comment on above: Performed By: #### P OCGLUC #### [facility] [address] [address] [address] Kerrie Stark ALT [Catalytic activity/Vol] 33 U/L Normal 16-63 [facility] Comment on above: Performed By: #### P OCGLUC #### [facility] [address] [address] [address] Kerrie Stark Anion gap [Moles/Vol] 13.2 mmol/L Normal [facility] Comment on above: Performed By: #### P OCGLUC #### [facility] [address] [address] [address] Kerrie Stark AST [Catalytic activity/Vol] 27 U/L Normal 15-37 [facility] Comment on above: Performed By: #### P OCGLUC #### [facility] [address] [address] [address] Kerrie Stark Bilirubin [Mass/Vol] 0.3 mg/dL Normal 0.2-1.0 [facility] Comment on above: Performed By: #### P OCGLUC #### [facility] [address] [address] [address] Kerrie Stark Calcium [Mass/Vol] 8.7 mg/dL Normal 8.5-10.1 [facility] Comment on above: Performed By: #### P OCGLUC #### [facility] [address] [address] [address] Kerrie Stark Chloride [Moles/Vol] 102 mmol/L Normal 98-107 [facility] Comment on above: Performed By: #### P OCGLUC #### [facility] [address] [address] [address] Kerrie Stark CO2 [Moles/Vol] 22.0 mmol/L Normal 21.0-32.[address] [facility] Comment on above: Performed By: #### P OCGLUC #### [facility] [address] [address] [address] Kerrie Stark Creatinine [Mass/Vol] 0.88 mg/dL Normal 0.70-1.30 [facility] Comment on above: Performed By: #### P OCGLUC #### [facility] [address] [place] [address] Dr. Kerrie Stark EGFR-AF MONEGASQUE >60 Normal >=[address] [facility] Comment on above: Performed By: #### P OCGLUC #### [facility] [address] [address] [address] Kerrie Stark EGFR-NON AF MONEGASQUE >60 Normal >=60 [facility] Comment on above: Performed By: #### P OCGLUC #### [facility] [address] [place] [address] Dr. Kerrie Stark Globulin (S) [Mass/Vol] 3.7 g/dL Normal [facility] Comment on above: Performed By: #### P OCGLUC #### [facility] [address] [place] [address] Dr. Kerrie Stark Glucose [Mass/Vol] 266 mg/dL Critically high 74-106 [facility] Comment on above: Performed By: #### P OCGLUC #### [facility] [address] [place] [address] Dr. Kerrie Stark Potassium [Moles/Vol] 4.2 mmol/L Normal 3.5-5.1 [facility] Comment on above: Performed By: #### P OCGLUC #### [facility] [address] [place] [address] Dr. Kerrie Stark Protein [Mass/Vol] 5.7 g/dL Critically low 6.4-8.2 [facility] Comment on above: Performed By: #### P OCGLUC #### [facility] [address] [place] [address] Dr. Kerrie Stark Sodium [Moles/Vol] 133 mmol/L Critically low 136-145 [facility] Comment on above: Performed By: #### P OCGLUC #### [facility] [address] [place] [address] Dr. Kerrie Stark Urea nitrogen [Mass/Vol] 21.0 mg/dL Critically high 7.0-18.0 [facility] Comment on above: Performed By: #### P OCGLUC #### [facility] [address] [place] [address] Dr. Kerrie Stark Urea nitrogen/Creatinine [Mass ratio] 23.9 mg/mg Normal [facility] Comment on above: Performed By: #### P OCGLUC #### [facility] [address] [place] [address] Dr. Kerrie Stark CBC W MANUAL DIFFon 04-07-19 23 ATYPICAL LYMPH # 0.14 103/ul Normal [facility] Comment on above: Performed By: #### L ACT #### [facility] [address] [place] [address] Dr. Kerrie Stark ATYPICAL LYMPH % 1 % Normal [facility] Comment on above: Performed By: #### L ACT #### [facility] [address] [place] [address] Dr. Kerrie Stark BAND # 0.0 103/ul Normal 0.0-0.3 [facility] Comment on above: Performed By: #### L ACT #### [facility] [address] [place] [address] Dr. Kerrie Stark BAND % 0 % Normal 0-5 [facility] Comment on above: Performed By: #### L ACT #### [facility] [address] [place] [address] Dr. Kerrie Stark BASOM # 0.00 103/ul Normal 0.00-0.10 [facility] Comment on above: Performed By: #### L ACT #### [facility] [address] [place] [address] Dr. Kerrie Stark BASOM % 0.0 % Critically low 0.2-2.0 [facility] Comment on above: Performed By: #### L ACT #### [facility] [address] [place] [address] Dr. Kerrie Stark BLAST # Normal [facility] Comment on above: Performed By: #### L ACT #### [facility] [address] [address] [address] Kerrie Stark BLAST % Normal [facility] Comment on above: Performed By: #### L ACT #### [facility] [address] [address] [address] Kerrie Stark CORRECTED WBC Normal 4.0-11.[address] [facility] Comment on above: Performed By: #### L ACT #### [facility] [address] [address] [address] Kerrie Stark EOS # 0.00 103/ul Normal 0.00-0.70 [facility] Comment on above: Performed By: #### L ACT #### [facility] [address] [place] [address] Dr. Kerrie Stark EOS% 0.0 % Critically low 0.9-7.0 [facility] Comment on above: Performed By: #### L ACT #### [facility] [address] [place] [address] Dr. Kerrie Stark HCT 35.9 % Critically low 42.0-54.0 [facility] Comment on above: Performed By: #### L ACT #### [facility] [address] [place] [address] Dr. Kerrie Stark HGB 12.0 g/dl Critically low 14.0-18.0 [facility] Comment on above: Performed By: #### L ACT #### [facility] [address] [place] [address] Dr. Kerrie Stark LYMPHM # 0.28 103/ul Critically low 1.20-3.80 [facility] Comment on above: Performed By: #### L ACT #### [facility] [address] [place] [address] Dr. Kerrie Stark LYMPHM% 2.0 % Critically low 20.5-60.0 [facility] Comment on above: Performed By: #### L ACT #### [facility] [address] [place] [address] Dr. Kerrie Stark MCH 32.6 pg Normal 25.9-34.0 [facility] Comment on above: Performed By: #### L ACT #### [facility] [address] [place] [address] Dr. Kerrie Stark MCHC 33.4 g/dl Normal 29.9-35.2 [facility] Comment on above: Performed By: #### L ACT #### [facility] [address] [address] [address] Kerrie Stark MCV 97.6 fL Critically high 80.0-94.0 [facility] Comment on above: Performed By: #### L ACT #### [facility] [address] [place] [address] Dr. Kerrie Stark METAMYELOCYTE # Normal [facility] Comment on above: Performed By: #### L ACT #### [facility] [address] [place] [address] Dr. Kerrie Stark METAMYELOCYTE % Normal [facility] Comment on above: Performed By: #### L ACT #### [facility] [address] [place] [address] Dr. Kerrie Stark MONOM# 0.00 103/ul Critically low 0.30-0.80 [facility] Comment on above: Performed By: #### L ACT #### [facility] [address] [place] [address] Dr. Kerrie Stark MONOM% 0.0 % Critically low 1.7-12.0 [facility] Comment on above: Performed By: #### L ACT #### [facility] [address] [place] [address] Dr. Kerrie Stark MPV 10.6 fL Normal 9.5-13.5 [facility] Comment on above: Performed By: #### L ACT #### [facility] [address] [place] [address] Dr. Kerrie Stark MYELOCYTE # Normal [facility] Comment on above: Performed By: #### L ACT #### [facility] [address] [place] [address] Dr. Kerrie Stark MYELOCYTE % Normal [facility] Comment on above: Performed By: #### L ACT #### [facility] [address] [address] [address] Kerrie Stark NRBC Normal [facility] Comment on above: Performed By: #### L ACT #### [facility] [address] [address] [address] Kerrie Stark PLT 125 103/ul Critically low 150-450 [facility] Comment on above: Performed By: #### L ACT #### [facility] [address] [address] [address] Kerrie Stark RBC 3.68 106/ul Critically low 4.70-6.10 [facility] Comment on above: Performed By: #### L ACT #### [facility] [address] [place] [address] Dr. Kerrie Stark RDW 13.2 % Normal 11.0-15.0 [facility] Comment on above: Performed By: #### L ACT #### [facility] [address] [place] [address] Dr. Kerrie Stark SEG # 13.77 103/ul Critically high 1.40-6.50 [facility] Comment on above: Performed By: #### L ACT #### [facility] [address] [place] [address] Dr. Kerrie Stark SEG % 97.0 % Critically high 43.0-75.0 [facility] Comment on above: Performed By: #### L ACT #### [facility] [address] [place] [address] Dr. Kerrie Stark TOXIC GRANULATION 2+ Normal [facility] Comment on above: Performed By: #### L ACT #### [facility] [address] [place] [address] Dr. Kerrie Stark WBC 14.2 103/ul Critically high 4.0-11.[address] [facility] Comment on above: Performed By: #### L ACT #### [facility] [address] [place] [address] Dr. Kerrie Stark Covid-19 PCR ([facility])on 03-22 SARS-CoV-2 (COVID-19) RNA QUE+probe Ql (Unsp spec) Detected Abnormal NOT DETECTED [facility] Comment on above: Result Comment: This test is not yet approved or cleared by the [place] FDA. When there are no FDA-approved or cleared tests available, and other criteria are met, FDA can make tests available under an emergency access mechanism called an Emergency Use Authorization (EUA). The EUA for this test is supported by the [place] of Health and Human Service's declaration that [...] used). Performed By: #### L ACT #### [facility] [address] [place] [address] Dr. Kerrie Stark LACTATE/LACTIC ACIDon 2022 Lactate [Moles/Vol] 1.1 mmol/L Normal 0.4-1.9 [facility] Comment on above: Performed By: #### P OCGLUC #### [facility] [address] [place] [address] Dr. Kerrie Stark POINT OF CARE GLUCOSEon 03-22 Glucose [Mass/Vol] 316 mg/dL Critically high [address] [place] [address] Comment on above: Performed By: #### P OCGLUC #### [facility] [address] [place] [address] Dr. Kerrie Stark Glucose [Mass/Vol] 182 mg/dL Critically high [address] [place] [address] Comment on above: Performed By: #### P OCGLUC #### [facility] [address] [place] [address] Dr. Kerrie Stark Glucose [Mass/Vol] 318 mg/dL Critically high [address] [place] [address] Comment on above: Performed By: #### P OCGLUC #### [facility] [address] [place] [address] Dr. Kerrie Stark PROF 14(COMP METB)on 023 Albumin [Mass/Vol] 1.9 g/dL Critically low 3.4-5.0 [facility] Comment on above: Performed By: #### P OCGLUC #### [facility] [address] [address] [address] Kerrie Stark Albumin/Globulin [Mass ratio] 0.5 {ratio} Normal [facility] Comment on above: Performed By: #### P OCGLUC #### [facility] [address] [address] [address] Kerrie Stark ALP [Catalytic activity/Vol] 50 U/L Normal 46-116 [facility] Comment on above: Performed By: #### P OCGLUC #### [facility] [address] [address] [address] Kerrie Stark ALT [Catalytic activity/Vol] 24 U/L Normal 16-63 [facility] Comment on above: Performed By: #### P OCGLUC #### [facility] [address] [address] [address] Kerrie Stark Anion gap [Moles/Vol] 12.9 mmol/L Normal [facility] Comment on above: Performed By: #### P OCGLUC #### [facility] [address] [address] [address] Kerrie Stark AST [Catalytic activity/Vol] 19 U/L Normal 15-37 [facility] Comment on above: Performed By: #### P OCGLUC #### [facility] [address] [address] [address] Kerrie Stark Bilirubin [Mass/Vol] 0.3 mg/dL Normal 0.2-1.0 [facility] Comment on above: Performed By: #### P OCGLUC #### [facility] [address] [address] [address] Kerrie Stark Calcium [Mass/Vol] 8.5 mg/dL Normal 8.5-10.1 [facility] Comment on above: Performed By: #### P OCGLUC #### [facility] [address] [address] [address] Kerrie Stark Chloride [Moles/Vol] 103 mmol/L Normal 98-107 [facility] Comment on above: Performed By: #### P OCGLUC #### [facility] [address] [address] [address] Kerrie Stark CO2 [Moles/Vol] 22.2 mmol/L Normal 21.0-32.[address] [facility] Comment on above: Performed By: #### P OCGLUC #### [facility] [address] [address] [address] Kerrie Stark Creatinine [Mass/Vol] 1.17 mg/dL Normal 0.70-1.30 [facility] Comment on above: Performed By: #### P OCGLUC #### [facility] [address] [address] [address] Kerrie Stark EGFR-AF MONEGASQUE >60 Normal >=[address] [facility] Comment on above: Performed By: #### P OCGLUC #### [facility] [address] [address] [address] Kerrie Stark EGFR-NON AF MONEGASQUE 60 mL/min/1.73m2 Normal >=60 [facility] Comment on above: Performed By: #### P OCGLUC #### [facility] [address] [address] [address] Kerrie Stark Globulin (S) [Mass/Vol] 3.8 g/dL Normal [facility] Comment on above: Performed By: #### P OCGLUC #### [facility] [address] [address] [address] Kerrie Stark Glucose [Mass/Vol] 283 mg/dL Critically high 74-106 [facility] Comment on above: Performed By: #### P OCGLUC #### [facility] [address] [address] [address] Kerrie Stark Potassium [Moles/Vol] 4.1 mmol/L Normal 3.5-5.1 [facility] Comment on above: Performed By: #### P OCGLUC #### [facility] [address] [address] [address] Kerrie Stark Protein [Mass/Vol] 5.7 g/dL Critically low 6.4-8.2 [facility] Comment on above: Performed By: #### P OCGLUC #### [facility] [address] [address] [address] Kerrie Stark Sodium [Moles/Vol] 134 mmol/L Critically low 136-145 Th e [facility] Comment on above: Performed By: #### P OCGLUC #### [facility] [address] [address] [address] Kerrie Stark Urea nitrogen [Mass/Vol] 23.0 mg/dL Critically high 7.0-18.0 [facility] Comment on above: Performed By: #### P OCGLUC #### [facility] [address] [address] [address] Kerrie Stark Urea nitrogen/Creatinine [Mass ratio] 19.7 mg/mg Normal [facility] Comment on above: Performed By: #### P OCGLUC #### [facility] [address] [place] [address] Dr. Kerrie Stark CULTURE SPUTUMon 04-06-2022 CULTURE SPUTUM Isolate 1 Grace albicans Light growth of Normal [facility] Comment on above: Performed By: #### S PUTCX #### [facility] [address] [place] [address] Dr. Kerrie Stark CULTURE URINEon 04-06-2022 CULTURE URINE Culture Observations: NO GROWTH. Normal [facility] Comment on above: Performed By: #### U RCX #### [facility] [address] [place] [address] Dr. Kerrie Stark ER URINE PROFILEon 3 Bilirubin Ql (U) Negative Normal NEGATIVE [facility] Comment on above: Performed By: #### P OCGLUC #### [facility] [address] [place] [address] Dr. Kerrie Stark Clarity (U) CLEAR Normal CLEAR [facility] Comment on above: Performed By: #### P OCGLUC #### [facility] [address] [place] [address] Dr. Kerrie Stark Color (U) YELLOW Normal YELLOW [facility] Comment on above: Performed By: #### P OCGLUC #### [facility] [address] [place] [address] Dr. Kerrie BRINK A micrscopic examination will be performed if indicated. Normal [facility] Comment on above: Performed By: #### P OCGLUC #### [facility] [address] [address] [address] Kerrie Stark Glucose Ql (U) Negative Normal NEGATIVE [facility] Comment on above: Performed By: #### P OCGLUC #### [facility] [address] [address] [address] Kerrie Stark Hemoglobin Ql (U) Negative Normal NEGATIVE [facility] Comment on above: Performed By: #### P OCGLUC #### [facility] [address] [place] [address] Dr. Kerrie Stark Ketones Ql (U) Negative Normal NEGATIVE [facility] Comment on above: Performed By: #### P OCGLUC #### [facility] [address] [place] [address] Dr. Kerrie Stark LEUKOCYTES Negative Normal NEGATIVE [facility] Comment on above: Performed By: #### P OCGLUC #### [facility] [address] [place] [address] Dr. Kerrie Stark Nitrite Ql (U) Negative Normal NEGATIVE [facility] Comment on above: Performed By: #### P OCGLUC #### [facility] [address] [place] [address] Dr. Kerrie Stark pH (U) 6.0 [pH] Normal 5-9 [facility] Comment on above: Performed By: #### P OCGLUC #### [facility] [address] [place] [address] Dr. Kerrie Stark Protein (U) [Mass/Vol] 30 mg/dL Abnormal NEGAT LITTLE/ TRACE [facility] Comment on above: Performed By: #### P OCGLUC #### [facility] [address] [place] [address] Dr. Kerrie Stark SPEC GRAVITY 1.015 Normal 1.005-<=1.025 [facility] Comment on above: Performed By: #### P OCGLUC #### [facility] [address] [place] [address] Dr. Kerrie Stark UR MICRO IND INDICATED Normal [facility] Comment on above: Performed By: #### P OCGLUC #### [facility] [address] [address] [address] Kerrie Stark Urobilinogen Qn (U) 0.2 {Ricky'U}/dL Normal 0.2 - 1. 0 [facility] Comment on above: Performed By: #### P OCGLUC #### [facility] [address] [place] [address] Dr. Kerrie Stark POINT OF CARE GLUCOSEon 03-22 Glucose [Mass/Vol] 301 mg/dL Critically high [facility] Comment on above: Performed By: #### P OCGLUC #### [facility] [address] [place] [address] Dr. Kerrie Stark Glucose [Mass/Vol] 272 mg/dL Critically high [facility] Comment on above: Performed By: #### P OCGLUC #### [facility] [address] [place] [address] Dr. Kerrie Stark Glucose [Mass/Vol] 191 mg/dL Critically high [address] [place] [address] Comment on above: Performed By: #### P OCGLUC #### [facility] [address] [place] [address] Dr. Kerrie Stark Glucose [Mass/Vol] 164 mg/dL Critically high [facility] Comment on above: Performed By: #### C BC #### [facility] [address] [place] [address] Dr. Kerrie Stark Glucose [Mass/Vol] 128 mg/dL Critically high [facility] Comment on above: Performed By: #### P OCGLUC #### [facility] [address] [place] [address] Dr. Kerrie Stark URINE MICROSCOPIC ONLYon BACTERIA SMALL Abnormal NONE SEEN [facility] Comment on above: Performed By: #### P OCGLUC #### [facility] [address] [place] [address] Dr. Kerrie Stark Bacteria identified Cx Nom (U) INDICATED Normal [facility] Comment on above: Performed By: #### P OCGLUC #### [facility] [address] [place] [address] Dr. Kerrie Stark CAST SEEN Abnormal NONE SEEN [facility] Comment on above: Performed By: #### P OCGLUC #### [facility] [address] [place] [address] Dr. Kerrie Stark Crystals LM Nom (Urine sed) NONE SEEN Normal NONE SEEN [facility] Comment on above: Performed By: #### P OCGLUC #### [facility] [address] [place] [address] Dr. Kerrie Stark Epithelial cells LM Ql (Urine sed) RARE Normal NONE SEEN /RARE [facility] Comment on above: Performed By: #### P OCGLUC #### [facility] [address] [place] [address] Dr. Kerrie Stark HYALINE CAST RARE Normal [facility] Comment on above: Performed By: #### P OCGLUC #### [facility] [address] [place] [address] Dr. Kerrie Stark MUCOUS TRACE Abnormal NONE SEEN [facility] Comment on above: Performed By: #### P OCGLUC #### [facility] [address] [place] [address] Dr. Kerrie Stark RBC 0-2 Normal 0-2 [facility] Comment on above: Performed By: #### P OCGLUC #### [facility] [address] [place] [address] Dr. Kerrie Stark WBC 0-2 Abnormal NONE SEEN [facility] Comment on above: Performed By: #### P OCGLUC #### [facility] [address] [place] [address] Dr. Kerrie Stark BNPon 04-05-2022 Natriuretic peptide B (Bld) [Mass/Vol] 394.0 pg/mL Normal <=1,800.0 [facility] Comment on above: Performed By: #### C BC #### [facility] [address] [place] [address] Dr. Kerrie Stark CBC W MANUAL DIFFon 02-15-20 23 ATYPICAL LYMPH # Normal [facility] Comment on above: Performed By: #### P OCGLUC #### [facility] [address] [address] [address] Kerrie Stark ATYPICAL LYMPH % Normal [facility] Comment on above: Performed By: #### P OCGLUC #### [facility] [address] [place] [address] Dr. Kerrie Stark BAND # Normal 0.0-0.3 [facility] Comment on above: Performed By: #### P OCGLUC #### [facility] [address] [place] [address] Dr. Kerrie Stark BAND % Normal 0-5 [facility] Comment on above: Performed By: #### P OCGLUC #### [facility] [address] [place] [address] Dr. Kerrie Stark BASOM # 0.00 103/ul Normal 0.00-0.10 [facility] Comment on above: Performed By: #### P OCGLUC #### [facility] [address] [place] [address] Dr. Kerrie Stark BASOM % 0.0 % Critically low 0.2-2.0 [facility] Comment on above: Performed By: #### P OCGLUC #### [facility] [address] [place] [address] Dr. Kerrie Stark BLAST # Normal [facility] Comment on above: Performed By: #### P OCGLUC #### [facility] [address] [place] [address] Dr. Kerrie Stark BLAST % Normal [facility] Comment on above: Performed By: #### P OCGLUC #### [facility] [address] [place] [address] Dr. Kerrie Stark CORRECTED WBC Normal 4.0-11.0 [facility] Comment on above: Performed By: #### P OCGLUC #### [facility] [address] [place] [address] Dr. Kerrie Stark EOS # 0.00 103/ul Normal 0.00-0.70 [facility] Comment on above: Performed By: #### P OCGLUC #### [facility] [address] [address] [address] Kerrie Stark EOS% 0.0 % Critically low 0.9-7.0 [facility] Comment on above: Performed By: #### P OCGLUC #### [facility] [address] [address] [address] Kerrie Stark HCT 43.5 % Normal 42.0-54.0 [facility] Comment on above: Performed By: #### P OCGLUC #### [facility] [address] [address] [address] Kerrie Stark HGB 14.7 g/dl Normal 14.0-18.0 [facility] Comment on above: Performed By: #### P OCGLUC #### [facility] [address] [address] [address] Kerrie Stark LYMPHM # 0.78 103/ul Critically low 1.20-3.80 [facility] Comment on above: Performed By: #### P OCGLUC #### [facility] [address] [address] [address] Kerrie Stark LYMPHM% 4.0 % Critically low 20.5-60.0 [facility] Comment on above: Performed By: #### P OCGLUC #### [facility] [address] [address] [address] Kerrie Stark MCH 32.5 pg Normal 25.9-34.0 [facility] Comment on above: Performed By: #### P OCGLUC #### [facility] [address] [address] [address] Kerrie Stark MCHC 33.8 g/dl Normal 29.9-35.2 [facility] Comment on above: Performed By: #### P OCGLUC #### [facility] [address] [address] [address] Kerrie Stark MCV 96.2 fL Critically high 80.0-94.0 [facility] Comment on above: Performed By: #### P OCGLUC #### [facility] [address] [address] [address] Kerrie Stark METAMYELOCYTE # Normal [facility] Comment on above: Performed By: #### P OCGLUC #### [facility] [address] [address] [address] Kerrie Stark METAMYELOCYTE % Normal [facility] Comment on above: Performed By: #### P OCGLUC #### [facility] [address] [address] [address] Kerrie Stark MONOM# 0.58 103/ul Normal 0.30-0.80 [facility] Comment on above: Performed By: #### P OCGLUC #### [facility] [address] [address] [address] Kerrie Stark MONOM% 3.0 % Normal 1.7-12.0 [facility] Comment on above: Performed By: #### P OCGLUC #### [facility] [address] [place] [address] Dr. Kerrie Stark MPV 10.1 fL Normal 9.5-13.5 [facility] Comment on above: Performed By: #### P OCGLUC #### [facility] [address] [address] [address] Kerrie Stark MYELOCYTE # Normal [facility] Comment on above: Performed By: #### P OCGLUC #### [facility] [address] [address] [address] Kerrie Stark MYELOCYTE % Normal [facility] Comment on above: Performed By: #### P OCGLUC #### [facility] [address] [address] [address] Kerrie Stark NRBC Normal [facility] Comment on above: Performed By: #### P OCGLUC #### [facility] [address] [address] [address] Kerrie Stark PLT 181 103/ul Normal 150-450 [facility] Comment on above: Performed By: #### P OCGLUC #### [facility] [address] [address] [address] Kerrie Stark RBC 4.52 106/ul Critically low 4.70-6.10 [facility] Comment on above: Performed By: #### P OCGLUC #### [facility] [address] [place], [place] [address] Dr. Kerrie Stark RDW 12.9 % Normal 11.0-15.0 [facility] Comment on above: Performed By: #### P OCGLUC #### [facility] [address] [place], [place] [address] Dr. Kerrie Stark SEG # 18.14 103/ul Critically high 1.40-6.50 [facility] Comment on above: Performed By: #### P OCGLUC #### [facility] [address] [place], [place] [address] Dr. Kerrie Stark SEG % 93.0 % Critically high 43.0-75.0 [facility] Comment on above: Performed By: #### P OCGLUC #### [facility] [address] [address] [address] Kerrie Stark WBC 19.5 103/ul Critically high 4.0-11.[address] [facility] Comment on above: Performed By: #### P OCGLUC #### [facility] [address] [address] [address] Kerrie Stark CTA CHEST WO W [...] BING ADAMS Date: 2022-04-05 20:31 Normal [facility] CULTURE BLOODon 04-05-2022 Microscopic examination of blood, culture Culture Observations: NO GROWTH AT 5 DAYS. Normal [facility] Comment on above: Performed By: #### C BC #### [facility] [address] [place] [address] Dr. Kerrie Stark Microscopic examination of blood, culture Culture Observations: NO GROWTH AT 5 DAYS. Normal [facility] Comment on above: Performed By: #### B [id number] #### [facility] [address] [place] [address] Dr. Kerrie Stark LACTATE/LACTIC ACIDon 2022 Lactate [Moles/Vol] 2.7 mmol/L Critically high 0.4-1.9 [facility] Comment on above: Performed By: #### P OCGLUC #### [facility] [address] [place] [address] Dr. Kerrie Stark Lactate [Moles/Vol] 3.2 mmol/L Critically high 0.4-1.9 [facility] Comment on above: Performed By: #### D DIM #### [facility] [address] [place] [address] Dr. Kerrie Stark PH VENOUS BLOODon 04-05-2022 PCO2 VENOUS 42.3 mmHg Normal 40.0-52.0 [facility] Comment on above: Performed By: #### P OCGLUC #### [facility] [address] [place] [address] Dr. Kerrie Stark pH VENOUS 7.400 Normal 7.330-7.430 [facility] Comment on above: Performed By: #### P OCGLUC #### [facility] [address] [place] [address] Dr. Kerrie Stark PROF 14(COMP METB)on 023 Albumin [Mass/Vol] 3.0 g/dL Critically low 3.4-5.0 [facility] Comment on above: Performed By: #### C BC #### [facility] [address] [place] [address] Dr. Kerrie Stark Albumin/Globulin [Mass ratio] 0.7 {ratio} Normal [facility] Comment on above: Performed By: #### C BC #### [facility] [address] [place] [address] Dr. Kerrie Stark ALP [Catalytic activity/Vol] 68 U/L Normal 46-116 [facility] Comment on above: Performed By: #### C BC #### [facility] [address] [place] [address] Dr. Kerrie Stark ALT [Catalytic activity/Vol] 29 U/L Normal 16-63 [facility] Comment on above: Performed By: #### C BC #### [facility] [address] [place] [address] Dr. Kerrie Stark Anion gap [Moles/Vol] 12.3 mmol/L Normal [facility] Comment on above: Performed By: #### C BC #### [facility] [address] [place] [address] Dr. Kerrie Stark AST [Catalytic activity/Vol] 19 U/L Normal 15-37 [facility] Comment on above: Performed By: #### C BC #### [facility] [address] [place] [address] Dr. Kerrie Stark Bilirubin [Mass/Vol] 0.7 mg/dL Normal 0.2-1.0 [facility] Comment on above: Performed By: #### C BC #### [facility] [address] [address] [address] Kerrie Stark Calcium [Mass/Vol] 10.0 mg/dL Normal 8.5-10.1 [facility] Comment on above: Performed By: #### C BC #### [facility] [address] [address] [address] Kerrie Stark Chloride [Moles/Vol] 96 mmol/L Critically low 98-107 [facility] Comment on above: Performed By: #### C BC #### [facility] [address] [address] [address] Kerrie Stark CO2 [Moles/Vol] 27.7 mmol/L Normal 21.0-32.[address] [facility] Comment on above: Performed By: #### C BC #### [facility] [address] [place] [address] Dr. Kerrie Stark Creatinine [Mass/Vol] 1.18 mg/dL Normal 0.70-1.30 [facility] Comment on above: Performed By: #### C BC #### [facility] [address] [place] [address] Dr. Kerrie Stark EGFR-AF MONEGASQUE >60 Normal >=[address] [facility] Comment on above: Performed By: #### C BC #### [facility] [address] [place] [address] Dr. Kerrie Stark EGFR-NON AF MONEGASQUE 59 mL/min/1.73m2 Critically low >=60 [facility] Comment on above: Performed By: #### C BC #### [facility] [address] [place] [address] Dr. Kerrie Stark Globulin (S) [Mass/Vol] 4.5 g/dL Normal [facility] Comment on above: Performed By: #### C BC #### [facility] [address] [place] [address] Dr. Kerrie Stark Glucose [Mass/Vol] 189 mg/dL Critically high 74-106 [facility] Comment on above: Performed By: #### C BC #### [facility] [address] [address] [address] Kerrie Stark Potassium [Moles/Vol] 4.0 mmol/L Normal 3.5-5.1 [facility] Comment on above: Performed By: #### C BC #### [facility] [address] [address] [address] Kerrie Stark Protein [Mass/Vol] 7.5 g/dL Normal 6.4-8.2 [facility] Comment on above: Performed By: #### C BC #### [facility] [address] [address] [address] Kerrie Stark Sodium [Moles/Vol] 132 mmol/L Critically low 136-145 [facility] Comment on above: Performed By: #### C BC #### [facility] [address] [place] [address] Dr. Kerrie Stark Urea nitrogen [Mass/Vol] 34.0 mg/dL Critically high 7.0-18.0 [facility] Comment on above: Performed By: #### C BC #### [facility] [address] [address] [address] Kerrie Stark Urea nitrogen/Creatinine [Mass ratio] 28.8 mg/mg Normal [facility] Comment on above: Performed By: #### C BC #### [facility] [address] [place] [address] Dr. Kerrie Stark PROTIMEon 04-05-2022 INR Coag (PPP) [Relative time] 1.00 {INR} Normal [facility] Comment on above: Performed By: #### P OCGLUC #### [facility] [address] [place] [address] Dr. Kerrie Stark INR GUIDELINES SEE BELOW Normal [facility] Comment on above: Result Comment: TOBY RED INR: 2.0 - 3.0 CONDITIONS NOT LISTED BELOW 2.5 - 3.5 FOR PROSTHETIC HEART VALVE REPLACEMENT 2.5 - 3.5 RECURRENT THROMBOSIS Performed By: #### P OCGLUC #### [facility] [address] [place] [address] Dr. Kerrie Stark PT Coag (PPP) [Time] 10.6 s Normal 9.0-11.6 [facility] Comment on above: Performed By: #### P OCGLUC #### [facility] [address] [place] [address] Dr. Kerrie Stark PTTon 04-05-2022 aPTT Coag (Bld) [Time] 28.5 s Normal 22.3-36.2 [facility] Comment on above: Performed By: #### P OCGLUC #### [facility] [address] [place] [address] Dr. Kerrie Stark RESPIRATORY PANEL PLUSon Adenovirus Not detected Normal NOT DETECTED [facility] Comment on above: Performed By: #### L ACT #### [facility] [address] [place] [address] Dr. Kerrie Nayak. Parapertusis Not detected Normal NOT DETECTED [facility] Comment on above: Performed By: #### L ACT #### [facility] [address] [place] [address] Dr. Kerrie Nayak. Pertussis Not detected Normal NOT DETECTED [facility] Comment on above: Performed By: #### L ACT #### [facility] [address] [place] [address] Dr. Kerrie Stark Chlamydia Pneumoniae Not detected Normal NOT DETECTED [facility] Comment on above: Performed By: #### L ACT #### [facility] [address] [place] [address] Dr. Kerrie Stark Coronavirus 229E Not detected Normal NOT DETECTED [facility] Comment on above: Performed By: #### L ACT #### [facility] [address] [place] [address] Dr. Kerrie Stark Coronavirus HKU1 Not detected Normal NOT DETECTED [facility] Comment on above: Performed By: #### L ACT #### [facility] [address] [place] [address] Dr. Kerrie Stark Coronavirus NL63 Not detected Normal NOT DETECTED [facility] Comment on above: Performed By: #### L ACT #### [facility] [address] [place] [address] Dr. Kerrie Stark Coronavirus OC43 Not detected Normal NOT DETECTED [facility] Comment on above: Performed By: #### L ACT #### [facility] [address] [address] [address] Kerrie Stark Influenza A H1 Not detected Normal NOT DETECTED [facility] Comment on above: Performed By: #### L ACT #### [facility] [address] [address] [address] Kerrie Stark Influenza A H1 2009 Not detected Normal NOT DETECTED [facility] Comment on above: Performed By: #### L ACT #### [facility] [address] [address] [address] Kerrie Stark Influenza A H3 Not detected Normal NOT DETECTED [facility] Comment on above: Performed By: #### L ACT #### [facility] [address] [address] [address] Kerrie Stark Influenza B Not detected Normal NOT DETECTED [facility] Comment on above: Performed By: #### L ACT #### [facility] [address] [place] [address] Dr. Kerrie Stark Metapneumovirus Not detected Normal NOT DETECTED [facility] Comment on above: Performed By: #### L ACT #### [facility] [address] [id number] Dr. Kerrie Stark Mycoplas. Pneumoniae Not detected Normal NOT DETECTED [facility] Comment on above: Performed By: #### L ACT #### [facility] [address] [place] [address] Dr. Kerrie Stark Parainfluenza 1 Not detected Normal NOT DETECTED [facility] Comment on above: Performed By: #### L ACT #### [facility] [address] [address] [address] Kerrie Stark Parainfluenza 2 Not detected Normal NOT DETECTED [facility] Comment on above: Performed By: #### L ACT #### [facility] [address] [place] [address] Dr. Kerrie Stark Parainfluenza 3 Not detected Normal NOT DETECTED [facility] Comment on above: Performed By: #### L ACT #### [facility] [address] [place] [address] Dr. Kerrie Stark Parainfluenza 4 Not detected Normal NOT DETECTED [facility] Comment on above: Performed By: #### L ACT #### [facility] [address] [place] [address] Dr. Kerrie Stark Rhino/Enterovirus Not detected Normal NOT DETECTED [facility] Comment on above: Performed By: #### L ACT #### [facility] [address] [place] [address] Dr. Kerrie Stark RP2 Header 1 RESPIRATORY PANEL: VIRUSES Normal [facility] Comment on above: Performed By: #### L ACT #### [facility] [address] [place] [address] Dr. Kerrie Stark RP2 Header 2 RESPIRATORY PANEL: BACTERIA Normal [facility] Comment on above: Performed By: #### L ACT #### [facility] [address] [place] [address] Dr. Kerrie Stark RSV Not detected Normal NOT DETECTED [facility] Comment on above: Performed By: #### L ACT #### [facility] [address] [place] [address] Dr. Kerrie Stark SARS-CoV-2 (COVID-19) RNA QUE+probe Ql (Unsp spec) Detected Abnormal NOT DETECTED [facility] Comment on above: Performed By: #### L ACT #### [facility] [address] [place] [address] Dr. Kerrie Stark TROPONIN, HIGH SENSITIVITYon 04-05-2022 HSTROP 8.4 pg/mL Normal 4.0-76.1 [facility] Comment on above: Result Comment: CUT- OFF POINTS HAVE BEEN ESTABLISHED BASED ON THE FOURTH UNIVERSAL DEFINITIONS OF MYOCARDIAL INFARCTION. THE UPPER REFERENCE LIMIT (URL) OF TROPONIN, DEFINED THE 99TH PERCENTILE OF cTnI DISTRIBUTION IN A REFERENCE POPULATION, HAS BEEN CONFIRMED THE DECISION THRESHOLD FOR [place] DIAGNOSIS. Performed By: #### C BC #### [facility] [address] [place] [address] Dr. Kerrie Stark Progress Noteson 03-30-2022 Dandy Operator Authentication Interface Message Text EMERGENCY TRIAGE, TREAT AND TRANSPORT (ET3) DOCUMENTATION OF TELEHEALTH VISIT Date / Time: 03/27/20220 Name: Chema Childs : 1940 SSN: (Not on file) EMS Agency: [facility] [x] Verbal consent obtained [] [...] Completed by: Horace Parra DO Normal [facility] CBC W MANUAL DIFFon 03-29-19 ATYPICAL LYMPH # Normal [facility] Comment on above: Performed By: #### L ACT #### [facility] [address] [place] [address] Dr. Kerrie Stark ATYPICAL LYMPH % Normal [facility] Comment on above: Performed By: #### L ACT #### [facility] [address] [place] [address] Dr. Kerrie Stark BAND # 0.0 103/ul Normal 0.0-0.3 [facility] Comment on above: Performed By: #### L ACT #### [facility] [address] [place] [address] Dr. Kerrie Stark BAND % 0 % Normal 0-5 [facility] Comment on above: Performed By: #### L ACT #### [facility] [address] [place] [address] Dr. Kerrie Stark BASOM # 0.00 103/ul Normal 0.00-0.10 [facility] Comment on above: Performed By: #### L ACT #### [facility] [address] [place] [address] Dr. Kerrie Stark BASOM % 0.0 % Critically low 0.2-2.0 [facility] Comment on above: Performed By: #### L ACT #### [facility] [address] [place] [address] Dr. Kerrie Stark BLAST # Normal [facility] Comment on above: Performed By: #### L ACT #### [facility] [address] [place] [address] Dr. Kerrie Stark BLAST % Normal [facility] Comment on above: Performed By: #### L ACT #### [facility] [address] [place] [address] Dr. Kerrie Stark CORRECTED WBC Normal 4.0-11.0 [facility] Comment on above: Performed By: #### L ACT #### [facility] [address] [place] [address] Dr. Kerrie Stark EOS # 0.00 103/ul Normal 0.00-0.70 [facility] Comment on above: Performed By: #### L ACT #### [facility] [address] [place], [place] [id number] Dr. Kerrie Stark EOS% 0.0 % Critically low 0.9-7.0 [facility] Comment on above: Performed By: #### L ACT #### [facility] [address] [place] [address] Dr. Kerrie Stark HCT 37.3 % Critically low 42.0-54.0 [facility] Comment on above: Performed By: #### L ACT #### [facility] [address] [place] [address] Dr. Kerrie Stark HGB 12.0 g/dl Critically low 14.0-18.0 [facility] Comment on above: Performed By: #### L ACT #### [facility] [address] [place] [address] Dr. Kerrie Stark LYMPHM # 0.00 103/ul Critically low 1.20-3.80 [facility] Comment on above: Performed By: #### L ACT #### [facility] [address] [place] [address] Dr. Kerrie Stark LYMPHM% 0.0 % Critically low 20.5-60.0 [facility] Comment on above: Performed By: #### L ACT #### [facility] [address] [place] [address] Dr. Kerrie Stark MCH 33.1 pg Normal 25.9-34.0 [facility] Comment on above: Performed By: #### L ACT #### [facility] [address] [place] [address] Dr. Kerrie Stark MCHC 32.2 g/dl Normal 29.9-35.2 [facility] Comment on above: Performed By: #### L ACT #### [facility] [address] [place] [address] Dr. Kerrie Stark MCV 103.0 fL Critically high 80.0-94.0 [facility] Comment on above: Performed By: #### L ACT #### [facility] [address] [place] [address] Dr. Kerrie Stark METAMYELOCYTE # Normal [facility] Comment on above: Performed By: #### L ACT #### [facility] [address] [place] [address] Dr. Kerrie Stark METAMYELOCYTE % Normal [facility] Comment on above: Performed By: #### L ACT #### [facility] [address] [address] [address] Kerrie Stark MONOM# 0.69 103/ul Normal 0.30-0.80 [facility] Comment on above: Performed By: #### L ACT #### [facility] [address] [place] [address] Dr. Kerrie Stark MONOM% 5.0 % Normal 1.7-12.0 [facility] Comment on above: Performed By: #### L ACT #### [facility] [address] [place] [address] Dr. Kerrie Stark MPV 10.6 fL Normal 9.5-13.5 [facility] Comment on above: Performed By: #### L ACT #### [facility] [address] [place] [address] Dr. Kerrie Stark MYELOCYTE # Normal [facility] Comment on above: Performed By: #### L ACT #### [facility] [address] [place] [address] Dr. Kerrie Stark MYELOCYTE % Normal [facility] Comment on above: Performed By: #### L ACT #### [facility] [address] [place] [address] Dr. Kerrie Stark NRBC Normal [facility] Comment on above: Performed By: #### L ACT #### [facility] [address] [place] [address] Dr. Kerrie Stark PLT 158 103/ul Normal 150-450 [facility] Comment on above: Performed By: #### L ACT #### [facility] [address] [place] [address] Dr. Kerrie Stark RBC 3.62 106/ul Critically low 4.70-6.10 [facility] Comment on above: Performed By: #### L ACT #### [facility] [address] [place] [address] Dr. Kerrie Stark RDW 13.2 % Normal 11.0-15.0 [facility] Comment on above: Performed By: #### L ACT #### [facility] [address] [address] [address] Kerrie Stark SEG # 13.02 103/ul Critically high 1.40-6.50 [facility] Comment on above: Performed By: #### L ACT #### [facility] [address] [address] [address] Kerrie Stark SEG % 95.0 % Critically high 43.0-75.0 [facility] Comment on above: Performed By: #### L ACT #### [facility] [address] [address] [address] Kerrie Stark WBC 13.7 103/ul Critically high 4.0-11.[address] [facility] Comment on above: Performed By: #### L ACT #### [facility] [address] [place] [address] Dr. Kerrie Stark POINT OF CARE GLUCOSEon Glucose [Mass/Vol] 300 mg/dL Critically high 74-106 [facility] Comment on above: Performed By: #### C BC #### [facility] [address] [place] [address] Dr. Kerrie Stark PROF CHEM 8 (BAS METB)on Anion gap [Moles/Vol] 12.5 mmol/L Normal [facility] Comment on above: Performed By: #### D DIM #### [facility] [address] [place] [address] Dr. Kerrie Stark Calcium [Mass/Vol] 8.9 mg/dL Normal 8.5-10.1 [facility] Comment on above: Performed By: #### D DIM #### [facility] [address] [place] [address] Dr. Kerrie Stark Chloride [Moles/Vol] 103 mmol/L Normal 98-107 [facility] Comment on above: Performed By: #### D DIM #### [facility] [address] [place], [place] [id number] Dr. Kerrie Stark CO2 [Moles/Vol] 25.4 mmol/L Normal 21.0-32.[address] [facility] Comment on above: Performed By: #### D DIM #### [facility] [address] [place] [address] Dr. Kerrie Stark Creatinine [Mass/Vol] 1.05 mg/dL Normal 0.70-1.30 [facility] Comment on above: Performed By: #### D DIM #### [facility] [address] [place] [address] Dr. Kerrie Stark EGFR-AF MONEGASQUE >60 Normal >=[address] [facility] Comment on above: Performed By: #### D DIM #### [facility] [address] [place] [address] Dr. Kerrie Stark EGFR-NON AF MONEGASQUE >60 Normal >=60 [facility] Comment on above: Performed By: #### D DIM #### [facility] [address] [place] [address] Dr. Kerrie Stark Glucose [Mass/Vol] 243 mg/dL Critically high 74-106 [facility] Comment on above: Performed By: #### D DIM #### [facility] [address] [place] [address] Dr. Kerrie Stark Potassium [Moles/Vol] 3.9 mmol/L Normal 3.5-5.1 [facility] Comment on above: Performed By: #### D DIM #### [facility] [address] [place] [address] Dr. Kerrie Stark Sodium [Moles/Vol] 137 mmol/L Normal 136-145 [facility] Comment on above: Performed By: #### D DIM #### [facility] [address] [place] [address] Dr. Kerrie Stark Urea nitrogen [Mass/Vol] 22.0 mg/dL Critically high 7.0-18.0 [facility] Comment on above: Performed By: #### D DIM #### [facility] [address] [place] [address] Dr. Kerrie Stark Urea nitrogen/Creatinine [Mass ratio] 21.0 mg/mg Normal [facility] Comment on above: Performed By: #### D DIM #### [facility] [address] [place] [address] Dr. Kerrie Stark CARDIAC CONSTANTINE 3-6on 3 CK [Catalytic activity/Vol] 91 U/L Normal 39-308 [facility] Comment on above: Performed By: #### C MREP #### [facility] [address] [place] [address] Dr. Kerrie Stark CK.MB [Mass/Vol] 0.35 ng/mL Normal <=3.60 [facility] Comment on above: Performed By: #### C MREP #### [facility] [address] [place] [address] Dr. Kerrie Stark HSTROP 20.8 pg/mL Normal 4.0-76.1 [facility] Comment on above: Result Comment: CUT- OFF POINTS HAVE BEEN ESTABLISHED BASED ON THE FOURTH UNIVERSAL DEFINITIONS OF MYOCARDIAL INFARCTION. THE UPPER REFERENCE LIMIT (URL) OF TROPONIN, DEFINED THE 99TH PERCENTILE OF cTnI DISTRIBUTION IN A REFERENCE POPULATION, HAS BEEN CONFIRMED THE DECISION THRESHOLD FOR [place] DIAGNOSIS. Performed By: #### C MREP #### [facility] [address] [place] [address] Dr. Kerrie Stark CARDIAC CONSTANTINE ADMITon 023 CK [Catalytic activity/Vol] 56 U/L Normal 39-308 [facility] Comment on above: Performed By: #### D DIM #### [facility] [address] [place] [address] Dr. Kerrie Stark CK.MB [Mass/Vol] 0.36 ng/mL Normal <=3.60 [facility] Comment on above: Performed By: #### D DIM #### [facility] [address] [place] [address] Dr. Kerrie Stark HSTROP 12.7 pg/mL Normal 4.0-76.1 [facility] Comment on above: Result Comment: CUT- OFF POINTS HAVE BEEN ESTABLISHED BASED ON THE FOURTH UNIVERSAL DEFINITIONS OF MYOCARDIAL INFARCTION. THE UPPER REFERENCE LIMIT (URL) OF TROPONIN, DEFINED THE 99TH PERCENTILE OF cTnI DISTRIBUTION IN A REFERENCE POPULATION, HAS BEEN CONFIRMED THE DECISION THRESHOLD FOR [place] DIAGNOSIS. Performed By: #### D DIM #### [facility] [address] [address] [address] Kerrie Stark KIKE 128 ng/mL Critically high 16-96 [facility] Comment on above: Performed By: #### D DIM #### [facility] [address] [address] [address] Kerrie Stark CBC AUTO DIFFon 03-28-2022 BASO # 0.0 103/ul Normal 0.0-0.1 [facility] Comment on above: Performed By: #### C BC #### [facility] [address] [place] [address] Dr. Kerrie Stark Basophils/100 WBC (Bld) 0.2 % Normal 0.2-2.0 [facility] Comment on above: Performed By: #### C BC #### [facility] [address] [place] [address] Dr. Kerrie Stark EO # 0.0 103/ul Normal 0.0-0.7 [facility] Comment on above: Performed By: #### C BC #### [facility] [address] [address] [address] Kerrie Stark Eosinophils/100 WBC (Bld) 0.1 % Critically low 0.9-7.0 [facility] Comment on above: Performed By: #### C BC #### [facility] [address] [place] [address] Dr. Kerrie Stark Erythrocyte distribution width (RBC) [Ratio] 13.3 % Normal 11.0-15.0 [facility] Comment on above: Performed By: #### C BC #### [facility] [address] [place] [address] Dr. Kerrie Stark Hematocrit (Bld) [Volume fraction] 41.9 % Critically low 42.0-54.0 [facility] Comment on above: Performed By: #### C BC #### [facility] [address] [place] [address] Dr. Kerrie Stark Hemoglobin (Bld) [Mass/Vol] 13.3 g/dL Critically low 14.0-18.0 [facility] Comment on above: Performed By: #### C BC #### [facility] [address] [place] [address] Dr. Kerrie Stark IG # 0.04 10e3/ul Critically high 0.00-0.03 [facility] Comment on above: Performed By: #### C BC #### [facility] [address] [place] [address] Dr. Kerrie Stark IG % 0.4 % Normal 0.0-0.5 [facility] Comment on above: Performed By: #### C BC #### [facility] [address] [place] [address] Dr. Kerrie Stark LYMPH # 0.5 103/ul Critically low 1.2-3.8 [facility] Comment on above: Performed By: #### C BC #### [facility] [address] [place] [address] Dr. Kerrie Stark Lymphocytes/100 WBC (Bld) 5.1 % Critically low 20.5-60.0 [facility] Comment on above: Performed By: #### C BC #### [facility] [address] [place] [address] Dr. Kerrie Stark MANUAL DIFF REQ NO Normal [facility] Comment on above: Performed By: #### C BC #### [facility] [address] [place] [address] Dr. Kerrie Stark MCH (RBC) [Entitic mass] 33.2 pg Normal 25.9-34.0 [facility] Comment on above: Performed By: #### C BC #### [facility] [address] [place] [address] Dr. Kerrie Stark MCHC (RBC) [Mass/Vol] 31.7 g/dL Normal 29.9-35.2 [facility] Comment on above: Performed By: #### C BC #### [facility] [address] [place] [address] Dr. Kerrie Stark MCV (RBC) [Entitic vol] 104.5 fL Critically high 80.0-94.0 [facility] Comment on above: Performed By: #### C BC #### [facility] [address] [address] [address] Kerrie Stark MONO # 1.1 103/ul Critically high 0.3-0.8 [facility] Comment on above: Performed By: #### C BC #### [facility] [address] [address] [address] Kerrie Stark Monocytes/100 WBC (Bld) 10.9 % Normal 1.7-12.0 [facility] Comment on above: Performed By: #### C BC #### [facility] [address] [address] [address] Kerrie Stark NEUT # 8.3 103/ul Critically high 1.4-6.5 [facility] Comment on above: Performed By: #### C BC #### [facility] [address] [place] [address] Dr. Kerrie Stark Neutrophils/100 WBC (Bld) 83.3 % Critically high 43.0-75.0 [facility] Comment on above: Performed By: #### C BC #### [facility] [address] [place] [address] Dr. Kerrie Stark Platelet mean volume (Bld) [Entitic vol] 10.8 fL Normal 9.5-13.5 [facility] Comment on above: Performed By: #### C BC #### [facility] [address] [place] [address] Dr. Kerrie Stark PLT 145 103/ul Critically low 150-450 [facility] Comment on above: Performed By: #### C BC #### [facility] [address] [address] [address] Kerrie Stark RBC 4.01 106/ul Critically low 4.70-6.10 [facility] Comment on above: Performed By: #### C BC #### [facility] [address] [address] [address] Kerrie Stark WBC 10.0 103/ul Normal 4.0-11.0 [facility] Comment on above: Performed By: #### C #### [facility] [address] [address] [address] Kerrie Stark CTA CHEST WO W [...] FAROOQ HARDEN Date: 2022-03-28 06:03 Normal [facility] Covid-19 PCR (CVDTBH)on SARS-CoV-2 (COVID-19) RNA QUE+probe Ql (Unsp spec) Detected Abnormal NOT DETECTED [facility] Comment on above: Result Comment: This test is not yet approved or cleared by the [place] FDA. When there are no FDA-approved or cleared tests available, and other criteria are met, FDA can make tests available under an emergency access mechanism called an Emergency Use Authorization (EUA). The EUA for this test is supported by the [place] of Health and Human Service's declaration that [...] used). Performed By: #### C BC #### [facility] [address] [place] [address] Dr. Kerrie Stark D-DIMERon 03-28-2022 D-DIMER 0.71 mg/L FEU Critically high <=0.59 [facility] Comment on above: Performed By: #### D DIM #### [facility] [address] [place] [address] Dr. Kerrie Stark D-DIMER COMMENTS SEE BELOW Normal [facility] Comment on above: Result Comment: [...] hospitalization. Performed By: #### D DIM #### [facility] [address] [place] [address] Dr. Kerrie Stark ER URINE PROFILEon 3 Bilirubin Ql (U) Negative Normal NEGATIVE [facility] Comment on above: Performed By: #### P OCGLUC #### [facility] [address] [place] [address] Dr. Kerrie Stark Clarity (U) CLEAR Normal CLEAR [facility] Comment on above: Performed By: #### P OCGLUC #### [facility] [address] [place] [address] Dr. Kerrie Stark Color (U) YELLOW Normal YELLOW [facility] Comment on above: Performed By: #### P OCGLUC #### [facility] [address] [place] [address] Dr. Kerrie BRINK A micrscopic examination will be performed if indicated. Normal [facility] Comment on above: Performed By: #### P OCGLUC #### [facility] [address] [address] [address] Kerrie Stark Glucose Ql (U) Negative Normal NEGATIVE [facility] Comment on above: Performed By: #### P OCGLUC #### [facility] [address] [address] [address] Kerrie Stark Hemoglobin Ql (U) Negative Normal NEGATIVE [facility] Comment on above: Performed By: #### P OCGLUC #### [facility] [address] [address] [address] Kerrie Stark Ketones Ql (U) TRACE Abnormal NEGATIVE [facility] Comment on above: Performed By: #### P OCGLUC #### [facility] [address] [place] [address] Dr. Kerrie Stark LEUKOCYTES Negative Normal NEGATIVE [facility] Comment on above: Performed By: #### P OCGLUC #### [facility] [address] [place] [address] Dr. Kerrie Stark Nitrite Ql (U) Negative Normal NEGATIVE [facility] Comment on above: Performed By: #### P OCGLUC #### [facility] [address] [place] [address] Dr. Kerrie Stark pH (U) 5.5 [pH] Normal 5-9 [facility] Comment on above: Performed By: #### P OCGLUC #### [facility] [address] [place] [address] Dr. Kerrie Stark Protein (U) [Mass/Vol] 30 mg/dL Abnormal NEGAT LITTLE/ TRACE [facility] Comment on above: Performed By: #### P OCGLUC #### [facility] [address] [place] [address] Dr. Kerrie Stark SPEC GRAVITY 1.025 Normal 1.005-<=1.025 [facility] Comment on above: Performed By: #### P OCGLUC #### [facility] [address] [place] [address] Dr. Kerrie Stark UR MICRO IND NOT INDICATED Normal [facility] Comment on above: Performed By: #### P OCGLUC #### [facility] [address] [place] [address] Dr. Kerrie Stark Urobilinogen Qn (U) 1.0 {Ricky'U}/dL Normal 0.2 - 1. 0 [facility] Comment on above: Performed By: #### P OCGLUC #### [facility] [address] [place] [address] Dr. Kerrie Stark INFLUENZA A AND B AGon 03-28 INFLUANEGH SEE BELOW Normal [facility] Comment on above: Result Comment: Nega tive for Flu A protein angiten. Infection due to Flu A cannot be ruled out. Flu A angiten in the sample may be below the detection limit of the test. Performed By: #### L ACT #### [facility] [address] [place] [address] Dr. Kerrie Stark INFLUBNEGH SEE BELOW Normal [facility] Comment on above: Result Comment: Nega tive for Flu B protein antigen. Infection due to Flu B cannot be ruled out. Flu B antigen in the sample may be below the detection limit of the test. Performed By: #### L ACT #### [facility] [address] [place] [address] Dr. Kerrie Stark INFLUENZA A AG Negative Normal NEGATIVE SEE COMMENT [facility] Comment on above: Performed By: #### L ACT #### [facility] [address] [place] [address] Dr. Kerrie Stark INFLUENZA B AG Negative Normal NEGATIVE SEE COMMENT [facility] Comment on above: Performed By: #### L ACT #### [facility] [address] [place] [address] Dr. Kerrie Stark POINT OF CARE GLUCOSEon 02-0 Glucose [Mass/Vol] 251 mg/dL Critically high 74-106 [facility] Comment on above: Performed By: #### C BC #### [facility] [address] [place] [address] Dr. Kerrie Stark Glucose [Mass/Vol] 244 mg/dL Critically high 74-106 [facility] Comment on above: Performed By: #### B LDCX1 #### [facility] [address] [place] [address] Dr. Kerrie Stark Glucose [Mass/Vol] 398 mg/dL Critically high 74-106 [facility] Comment on above: Performed By: #### P OCGLUC #### [facility] [address] [place] [address] Dr. Kerrie Stark PROF CHEM 8 (BAS METB)on Anion gap [Moles/Vol] 17.2 mmol/L Normal [facility] Comment on above: Performed By: #### D DIM #### [facility] [address] [place] [address] Dr. Kerrie Stark Calcium [Mass/Vol] 9.0 mg/dL Normal 8.5-10.1 [facility] Comment on above: Performed By: #### D DIM #### [facility] [address] [place] [address] Dr. Kerrie Stark Chloride [Moles/Vol] 96 mmol/L Critically low 98-107 [facility] Comment on above: Performed By: #### D DIM #### [facility] [address] [place] [address] Dr. Kerrie Stark CO2 [Moles/Vol] 23.6 mmol/L Normal 21.0-32.[address] [facility] Comment on above: Performed By: #### D DIM #### [facility] [address] [place] [address] Dr. Kerrie Stark Creatinine [Mass/Vol] 1.41 mg/dL Critically high 0.70-1.30 [facility] Comment on above: Performed By: #### D DIM #### [facility] [address] [place] [address] Dr. Kerrie Stark EGFR-AF MONEGASQUE 58 mL/min/1.73m2 Critically low >=60 [facility] Comment on above: Performed By: #### D DIM #### [facility] [address] [place] [address] Dr. Kerrie Stark EGFR-NON AF MONEGASQUE 48 mL/min/1.73m2 Critically low >=60 [facility] Comment on above: Performed By: #### D DIM #### [facility] [address] [address] [address] Kerrie Stark Glucose [Mass/Vol] 151 mg/dL Critically high 74-106 [facility] Comment on above: Performed By: #### D DIM #### [facility] [address] [address] [address] Kerrie Stark Potassium [Moles/Vol] 3.8 mmol/L Normal 3.5-5.1 [facility] Comment on above: Performed By: #### D DIM #### [facility] [address] [address] [address] Kerrie Stark Sodium [Moles/Vol] 133 mmol/L Critically low 136-145 [facility] Comment on above: Performed By: #### D DIM #### [facility] [address] [address] [address] Kerrie Stark Urea nitrogen [Mass/Vol] 20.0 mg/dL Critically high 7.0-18.0 [facility] Comment on above: Performed By: #### D DIM #### [facility] [address] [address] [address] Kerrie Stark Urea nitrogen/Creatinine [Mass ratio] 14.2 mg/mg Normal [facility] Comment on above: Performed By: #### D DIM #### [facility] [address] [address] [address] Kerrie Stark XR CHEST 2 Von [...] by: PONCHO ROCHA Date: 2022-03-28 01:38 Normal [facility] Auth for Release of Medical Recordson 03-09-2022 Auth for Release of Medical Records [id number] #1.00CD:127 Normal [facility] Cult,Urineon 03-02-2022 Cult,Urine Specimen Description .CLEAN CATCH URINE Culture NO SIGNIFICANT GROWTH Report Status FINAL 03/02/2022 Normal [facility] Comment on above: Performed By: #### U RC #### [address] [place], [place] [id number] Business Segment Manager: Sandip Smith MD [facility] [address] [place] [address] [place] [address] Business Segment Manager: Ulisses Gaines MD Urinalysis w/ Microon 2022 Bacteria TRACE Abnormal NONE [facility] Comment on above: Performed By: #### U AMIC #### [facility] [address] [place] [address] [place] [place], [place] [id number] Business Segment Manager: Ulisses Gaines MD Bilirubin, SemiQt,Ur Negative Normal NEG [facility] Comment on above: Performed By: #### U AMIC #### [facility] [address] [place] [address] [place] [address] Business Segment Manager: Ulisses Gaines MD Blood, Urine Negative Normal NEG [facility] Comment on above: Performed By: #### U AMIC #### [facility] [address] [place] [address] Business Segment Manager: Ulisses Gaines MD Clarity (U) Clear Normal CLEAR [facility] Comment on above: Performed By: #### U AMIC #### [facility] [address] [place] [address] Business Segment Manager: Ulisses Gaines MD Color (U) Yellow Normal YEL [facility] Comment on above: Performed By: #### U AMIC #### [facility] [address] [place], [place] [id number] Business Segment Manager: Ulisses Gaines MD Epithelial cells LM Ql (Urine sed) 0 TO 2 Normal 0-5 [facility] Comment on above: Performed By: #### U AMIC #### [facility] [address] [place], [place] [id number] Business Segment Manager: Ulisses Gaines MD Glucose Ql (U) Negative Normal NEG [facility] Comment on above: Performed By: #### U AMIC #### [address] [place], [place] [phone] Business Segment Manager: Ulisses Gaines MD Ketones Ql (U) Negative Normal NEG [facility] Comment on above: Performed By: #### U AMIC #### [facility] [address] [place], [place] [phone] Business Segment Manager: Ulisses Gaines MD Leukocyte esterase Test strip Ql (U) Negative Normal NEG [facility] Comment on above: Performed By: #### U AMIC #### [address] [place], [place] [phone] Business Segment Manager: Ulisses Gaines MD Nitrite,Ur Negative Normal NEG [facility] Comment on above: Performed By: #### U AMIC #### [facility] [address] [place], [place] [phone] Business Segment Manager: Ulisses Gaines MD PH,Ur 6.0 Normal 5.0-9.0 [facility] Comment on above: Performed By: #### U AMIC #### [facility] [address] [place] [address] Business Segment Manager: Ulisses Gaines MD Protein Ql (U) Negative Normal NEG [facility] Comment on above: Performed By: #### U AMIC #### [facility] [address] [place], [place] [phone] Business Segment Manager: Ulisses Gaines MD Spec. [place],Ur 1.010 Normal 1.010-1.[address] [facility] Comment on above: Performed By: #### U AMIC #### [facility] [address] [place], [place] [phone] Business Segment Manager: Ulisses Gaines MD Urine RBC's None Normal 0-2 [facility] Comment on above: Performed By: #### U AMIC #### [facility] [address] [place], [place] [phone] Business Segment Manager: Ulisses Gaines MD Urine WBC's None Normal 0-5 [facility] Comment on above: Performed By: #### U AMIC #### [facility] [address] [place], [place] [phone] Business Segment Manager: Ulisses Gaines MD Urobilinogen,Ur Normal Normal NORM [facility] Comment on above: Performed By: #### U AMIC #### [facility] [address] [place], [place] [phone] Business Segment Manager: Ulisses Gaines MD Urinalysis with Microscopico n 03-01-2022 Bacteria, UA TRACE Abnormal None [facility] Bilirubin Urine Negative NEGATIVE [facility] Color, UA Yellow Yellow [facility] Epithelial Cells UA 0 TO 2 [facility] Glucose, Ur Negative NEGATIVE [facility] Interpretation and review of laboratory results Abnormal [facility] Ketones Ql (U) Negative NEGATIVE [facility] Leukocyte esterase Test strip Ql (U) Negative NEGATIVE [facility] Nitrite, Urine Negative NEGATIVE [facility] pH, UA 6.0 5.0 - 9.0 [facility] Protein, UA Negative NEGATIVE [facility] RBC, UA None [facility] Specific [place], UA 1.010 1.010 - 1.020 B ON [facility] Turbidity UA Clear Clear [facility] Urine Hgb Negative NEGATIVE [facility] Urobilinogen, Urine Normal Normal [facility] WBC, UA None [facility] GLYCOHEMOGLOBIN A1Con 2021 ADA RECOMMENDATION SEE BELOW Normal [facility] Comment on above: Result Comment: ADA RECOMMENDED LIMIT 4.0 - 6.0 ADA THERAPEUTIC TARGET < 7.0 ACTION SUGGESTED > 7.0 Performed By: #### P OCGLUC #### [facility] [address] [address] [address] Kerrie Stark Glucose [Mass/Vol] 146 mg/dL Normal [facility] Comment on above: Performed By: #### P OCGLUC #### [facility] [address] [address] [address] Kerrie Stark HbA1c (Bld) [Mass fraction] 6.7 % Critically high 4.5-6.2 [facility] Comment on above: Performed By: #### P OCGLUC #### [facility] [address] [address] [address] Kerrie Stark LIPID PROFILEon 02-01-2022 CHOL-HDL RATIO NORM SEE BELOW Normal [facility] Comment on above: Result Comment: 3.3 - 4.4 LOW RISK 4.4 - 7.1 AVERAGE RISK 7.1 - 11.0 MODERATE RISK >11.0 HIGH RISK Performed By: #### P OCGLUC #### [facility] [address] [address] [address] Kerrie Stark Cholesterol [Mass/Vol] 127 mg/dL Normal <=200 [facility] Comment on above: Performed By: #### P OCGLUC #### [facility] [address] [address] [address] Kerrie Stark Cholesterol in HDL [Mass/Vol] 50 mg/dL Normal 40-60 [facility] Comment on above: Performed By: #### P OCGLUC #### [facility] [address] [address] [address] Kerrie Stark Cholesterol in LDL [Mass/Vol] 58.8 mg/dL Normal [facility] Comment on above: Performed By: #### P OCGLUC #### [facility] [address] [address] [address] Kerrie Stark Cholesterol.total/Chol esterol in HDL [Mass ratio] 2.5 {ratio} Normal [facility] Comment on above: Performed By: #### P OCGLUC #### [facility] [address] [address] [address] Kerrie Stark HDL NORMAL > or = 60 mg/dl - LOW CARDIOVASCULAR RISK <40 mg/dl - HIGH CARDIOVASCULAR RISK Normal [facility] Comment on above: Performed By: #### P OCGLUC #### [facility] [address] [address] [address] Kerrie Stark LDL CALC NORMAL SEE BELOW Normal [facility] Comment on above: Result Comment: <100 mg/dl OPTIMAL 100 - 129 mg/dl NEAR OR ABOVE OPTIMAL 130 - 159 mg/dl BORDERLINE HIGH 160 - 189 mg/dl HIGH >190 mg/dl VERY HIGH Performed By: #### P OCGLUC #### [facility] [address] [address] [address] Kerrie Stark Triglyceride [Mass/Vol] 91 mg/dL Normal <=150 [facility] Comment on above: Performed By: #### P OCGLUC #### [facility] [address] [address] [address] Kerrie Stark VLDL CALC 18.2 mg/dL Normal [facility] Comment on above: Performed By: #### P OCGLUC #### [facility] [address] [address] [address] Kerrie Stark PROF 14(COMP METB)on 022 Albumin [Mass/Vol] 3.8 g/dL Normal 3.4-5.0 [facility] Comment on above: Performed By: #### P OCGLUC #### [facility] [address] [address] [address] Kerrie Stark Albumin/Globulin [Mass ratio] 1.0 {ratio} Normal [facility] Comment on above: Performed By: #### P OCGLUC #### [facility] [address] [address] [address] Kerrie Stark ALP [Catalytic activity/Vol] 56 U/L Normal 46-116 [facility] Comment on above: Performed By: #### P OCGLUC #### [facility] [address] [address] [address] Kerrie Stark ALT [Catalytic activity/Vol] 30 U/L Normal 16-63 [facility] Comment on above: Performed By: #### P OCGLUC #### [facility] [address] [address] [address] Kerrie Stark Anion gap [Moles/Vol] 13.3 mmol/L Normal [facility] Comment on above: Performed By: #### P OCGLUC #### [facility] [address] [address] [address] Kerrie Stark AST [Catalytic activity/Vol] 26 U/L Normal 15-37 [facility] Comment on above: Performed By: #### P OCGLUC #### [facility] [address] [address] [address] Kerrie Stark Bilirubin [Mass/Vol] 0.7 mg/dL Normal 0.2-1.0 [facility] Comment on above: Performed By: #### P OCGLUC #### [facility] [address] [address] [address] Kerrie Stark Calcium [Mass/Vol] 9.0 mg/dL Normal 8.5-10.1 [facility] Comment on above: Performed By: #### P OCGLUC #### [facility] [address] [address] [address] Kerrie Stark Chloride [Moles/Vol] 105 mmol/L Normal 98-107 [facility] Comment on above: Performed By: #### P OCGLUC #### [facility] [address] [address] [address] Kerrie Stark CO2 [Moles/Vol] 28.3 mmol/L Normal 21.0-32.[address] [facility] Comment on above: Performed By: #### P OCGLUC #### [facility] [address] [address] [address] Kerrie Stark Creatinine [Mass/Vol] 1.00 mg/dL Normal 0.70-1.30 [facility] Comment on above: Performed By: #### P OCGLUC #### [facility] [address] [address] [address] Kerrie Stark EGFR-AF MONEGASQUE >60 Normal >=[address] [facility] Comment on above: Performed By: #### P OCGLUC #### [facility] [address] [address] [address] Kerrie Stark EGFR-NON AF MONEGASQUE >60 Normal >=60 [facility] Comment on above: Performed By: #### P OCGLUC #### [facility] [address] [address] [address] Kerrie Stark Globulin (S) [Mass/Vol] 3.7 g/dL Normal [facility] Comment on above: Performed By: #### P OCGLUC #### [facility] [address] [address] [address] Kerrie Stark Glucose [Mass/Vol] 150 mg/dL Critically high 74-106 [facility] Comment on above: Performed By: #### P OCGLUC #### [facility] [address] [address] [address] Kerrie Stark Potassium [Moles/Vol] 5.6 mmol/L Critically high 3.5-5.1 [facility] Comment on above: Performed By: #### P OCGLUC #### [facility] [address] [address] [address] Kerrie Stark Protein [Mass/Vol] 7.5 g/dL Normal 6.4-8.2 [facility] Comment on above: Performed By: #### P OCGLUC #### [facility] [address] [address] [address] Kerrie Stark Sodium [Moles/Vol] 141 mmol/L Normal 136-145 [facility] Comment on above: Performed By: #### P OCGLUC #### [facility] [address] [address] [address] Kerrie Stark Urea nitrogen [Mass/Vol] 18.0 mg/dL Normal 7.0-18.0 [facility] Comment on above: Performed By: #### P OCGLUC #### [facility] [address] [place], [place] [address] Dr. Kerrie Stark Urea nitrogen/Creatinine [Mass ratio] 18.0 mg/mg Normal [facility] Comment on above: Performed By: #### P OCGLUC #### [facility] [address] [place], [place] [address] Dr. Kerrie Stark Creatinine (Bld) [Mass/Vol]O rdered By: Oumar Haynes on 01-30-2022 Creatinine [Mass/Vol] 1.0 mg/dL 0.6-1.3 [facility] Comment on above: ER/ESD physician is notified/shown all ISTAT results.Critical values may be confirmed by laboratory testing ifdeemed necessary by ER attending doctor. No Panel InformationOrdered By: Oumar Haynes on 01-30-2022 POC Estimated GFR > 60 [facility] Comment on above: GFR estimated refere nce range: According to KDOQI guidelines, <60 ml/min/1.73m2 is sufficient to diagnose a patient with chronic kidney disease. POC Estimated GFR Non- Amer > 60 [facility] Auth for Release of Medical Recordson 12-22-2021 Auth for Release of Medical Records [id number] #1.00CD:127 Normal [facility] Formson 11-25-2021 Forms [id number] #1.00CD:127 Normal [facility] Patient Educationon 11-24-19 22 Patient Education Infectious Disease Prostatitis Prostatitis is [...] Follow these instructions at home: ? Take [id number] and prescription medicines only as told by [...] Docum (more content not included)... Normal [facility] Urology Office/Clinic Noteon 11-23-2021 Urology Office/Clinic [...] w 4 wks abx. side effects/risks discussed. 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 Normal [facility] Comment on above: Result Comment: Elec tronically Signed By: KONG PEPE PA-C\.br\Date and Time Signed: 11/23/21 11:02 EDT Historical Records Officeon 11-01-2021 Historical Records Office [id number] #1.00CD:127 Normal [facility] FREE T3on 09-21-2021 FREE T3 1.88 pg/mlL Critically low 2.18-3.98 [facility] Comment on above: Performed By: #### P OCGLUC #### [facility] [address] [place] [address] Dr. Kerrie Stark FREE T4on 09-21-2021 Free T4 [Mass/Vol] 1.28 ng/dL Normal 0.76-1.46 [facility] Comment on above: Performed By: #### D DIM #### [facility] [address] [place] [address] Dr. Kerrie Stark TSHon 09-21-2021 TSH 0.625 uIU/mL Normal 0.358-3.740 [facility] Comment on above: Performed By: #### P OCGLUC #### [facility] [address] [address] [address] Kerrie Stark CTA Abdomen/Pelvis w/ and [...] Crane on 08/11/2021 1410 Normal [facility] CREATININEon 08-03-2021 Creatinine [Mass/Vol] 0.98 mg/dL Normal 0.70-1.30 [facility] Comment on above: Performed By: #### L ACT #### [facility] [address] [address] [address] Kerrie Stark EGFR-AF MONEGASQUE >60 Normal >=[address] [facility] Comment on above: Performed By: #### L ACT #### [facility] [address] [address] [address] Kerrie Stark EGFR-NON AF MONEGASQUE >60 Normal >=60 [facility] Comment on above: Performed By: #### L ACT #### [facility] [address] [address] [address] Kerrie Stark GLYCOHEMOGLOBIN A1Con 2021 ADA RECOMMENDATION SEE BELOW Normal [facility] Comment on above: Result Comment: ADA RECOMMENDED LIMIT 4.0 - 6.0 ADA THERAPEUTIC TARGET < 7.0 ACTION SUGGESTED > 7.0 Performed By: #### P OCGLUC #### [facility] [address] [address] [address] Kerrie Stark Glucose [Mass/Vol] 146 mg/dL Normal [facility] Comment on above: Performed By: #### P OCGLUC #### [facility] [address] [address] [address] Kerrie Stark HbA1c (Bld) [Mass fraction] 6.7 % Critically high 4.5-6.2 [facility] Comment on above: Performed By: #### P OCGLUC #### [facility] [address] [address] [address] Kerrie Stark Vital Signs Date Time Vital Sign Value Performing Clinician Facility 09-22-2024 15:02-0400 Body height 177.8 cm Clayton Mcfadden MD Work Phone: [facility] 09-22-2024 15:02-0400 Body mass index (BMI) [Ratio] 26.98 kg/m2 Clayton Mcfadden MD Work Phone: [facility] 09-22-2024 15:02-0400 Body weight 85.28 kg Clayton Mcfadden MD Work Phone: [facility] 09-12-2024 13:12-0400 Body height 177.8 cm Urban Sinclair DPM Work Phone: [facility] 09-12-2024 13:12-0400 Body mass index (BMI) [Ratio] 26.98 kg/m2 Urban Sinclair DPM Work Phone: [facility] 09-12-2024 13:12-0400 Body weight 85.28 kg Urban Sinclair DPM Work Phone: [facility] 09-12-2024 13:12-0400 Respiratory rate 18 /min Urban Sinclair DPM Work Phone: [facility] 08-20-2024 09:40-0400 Body height 177.8 cm Clayton Mcfadden MD Work Phone: [facility] 08-20-2024 09:40-0400 Body mass index (BMI) [Ratio] 26.98 kg/m2 Clayton Mcfadden MD Work Phone: [facility] 08-20-2024 09:40-0400 Body weight 85.28 kg Clayton Mcfadden MD Work Phone: [facility] 08-04-2024 10:48-0400 Body height 177.8 cm Clayton Mcfadden MD Work Phone: [facility] 08-04-2024 10:48-0400 Body mass index (BMI) [Ratio] 26.98 kg/m2 Clayton Mcfadden MD Work Phone: [facility] 08-04-2024 10:48-0400 Body weight 85.28 kg Clayton Mcfadden MD Work Phone: [facility] 08-04-2024 10:48-0400 Heart rate 74 /min Clayton Mcfadden MD Work Phone: [facility] 08-04-2024 10:48-0400 SaO2% (BldA) [Mass fraction] 92 % Clayton Mcfadden MD Work Phone: [facility] 07-17-2024 08:48-0400 Body height 180.3 cm Crystal Mcdermott MD Work Phone: [facility] 07-17-2024 08:48-0400 Body mass index (BMI) [Ratio] 25.8 kg/m2 Crystal Mcdermott MD Work Phone: [facility] 07-17-2024 08:48-0400 Body temperature 97.7 [degF] Crystal Mcdermott MD Work Phone: [facility] 07-17-2024 08:48-0400 Body weight 83.92 kg Crystal Mcdermott MD Work Phone: [facility] 07-17-2024 08:48-0400 Diastolic blood pressure 75 mm[Hg] Crystal Mcdermott MD Work Phone: [facility] 07-17-2024 08:48-0400 Heart rate 63 /min Crystal Mcdermott MD Work Phone: [facility] 07-17-2024 08:48-0400 SaO2% (BldA) [Mass fraction] 97 % Crystal Mcdermott MD Work Phone: [facility] 07-17-2024 08:48-0400 Systolic blood pressure 130 mm[Hg] Crystal Mcdermott MD Work Phone: [facility] 07-04-2024 13:22-0400 Body height 177.8 cm Urban Sinclair DPM Work Phone: [facility] 07-04-2024 13:22-0400 Body mass index (BMI) [Ratio] 26.98 kg/m2 Urban Sinclair DPM Work Phone: [facility] 07-04-2024 13:22-0400 Body weight 85.28 kg Urban Sinclair DPM Work Phone: [facility] 07-04-2024 13:22-0400 Respiratory rate 16 /min Urban Sinclair DPM Work Phone: [facility] 07-02-2024 11:30-0400 Body height 177.8 cm Clayton Mcfadden MD Work Phone: [facility] 07-02-2024 11:30-0400 Body mass index (BMI) [Ratio] 26.98 kg/m2 Clayton Mcfadden MD Work Phone: [facility] 07-02-2024 11:30-0400 Body weight 85.28 kg Clayton Mcfadden MD Work Phone: [facility] 06-03-2024 10:03-0400 Body height 177.8 cm Clayton Mcfadden MD Work Phone: [facility] 06-03-2024 10:03-0400 Body mass index (BMI) [Ratio] 24.68 kg/m2 Clayton Mcfadden MD Work Phone: [facility] 06-03-2024 10:03-0400 Body weight 78.02 kg Clayton Mcfadden MD Work Phone: [facility] 06-03-2024 10:03-0400 Diastolic blood pressure 80 mm[Hg] Clayton Mcfadden MD Work Phone: [facility] 06-03-2024 10:03-0400 Heart rate 80 /min Clayton Mcfadden MD Work Phone: [facility] 06-03-2024 10:03-0400 SaO2% (BldA) [Mass fraction] 97 % Clayton Mcfadden MD Work Phone: [facility] 06-03-2024 10:03-0400 Systolic blood pressure 134 mm[Hg] Clayton Mcfadden MD Work Phone: [facility] 04-09-2024 14:31-0500 Body height 180.3 cm Clayton Mcfadden MD Work Phone: [facility] 04-09-2024 14:31-0500 Body mass index (BMI) [Ratio] 25.52 kg/m2 Clayton Mcfadden MD Work Phone: [facility] 04-09-2024 14:31-0500 Body weight 83.01 kg Clayton Mcfadden MD Work Phone: [facility] 04-09-2024 14:31-0500 Heart rate 76 /min Clayton Mcfadden MD Work Phone: [facility] 04-09-2024 14:31-0500 SaO2% (BldA) [Mass fraction] 92 % Clayton Mcfadden MD Work Phone: [facility] 01-03-2024 10:41-0500 Body height 180.3 cm Clayton Mcfadden MD Work Phone: [facility] 01-03-2024 10:41-0500 Body mass index (BMI) [Ratio] 26.36 kg/m2 Clayton Mcfadden MD Work Phone: [facility] 01-03-2024 10:41-0500 Body temperature 98.1 [degF] Clayton Mcfadden MD Work Phone: [facility] 01-03-2024 10:41-0500 Body weight 85.73 kg Clayton Mcfadden MD Work Phone: [facility] 01-03-2024 10:41-0500 Heart rate 61 /min Clayton Mcfadden MD Work Phone: [facility] 01-03-2024 10:41-0500 SaO2% (BldA) [Mass fraction] 92 % Clayton Mcfadden MD Work Phone: [facility] 12-17-2023 14:55-0400 Body height 180.3 cm Clayton Mcfadden MD Work Phone: [facility] 12-17-2023 14:55-0400 Body mass index (BMI) [Ratio] 26.36 kg/m2 Clayton Mcfadden MD Work Phone: [facility] 12-17-2023 14:55-0400 Body weight 85.73 kg Clayton Mcfadden MD Work Phone: [facility] 11-12-2023 10:38-0400 Body height 180.3 cm Clayton Mcfadden MD Work Phone: [facility] 11-12-2023 10:38-0400 Body mass index (BMI) [Ratio] 26.36 kg/m2 Clayton Mcfadden MD Work Phone: [facility] 11-12-2023 10:38-0400 Body weight 85.73 kg Clayton Mcfadden MD Work Phone: [facility] 11-12-2023 10:38-0400 Diastolic blood pressure 80 mm[Hg] Clayton Mcfadden MD Work Phone: [facility] 11-12-2023 10:38-0400 Heart rate 62 /min Clayton Mcfadden MD Work Phone: [facility] 11-12-2023 10:38-0400 SaO2% (BldA) [Mass fraction] 97 % Clayton Mcfadden MD Work Phone: [facility] 11-12-2023 10:38-0400 Systolic blood pressure 130 mm[Hg] Clayton Mcfadden MD Work Phone: [facility] 01-31-2023 10:00-0500 Body height 175.26 cm Horace Jasso Other [facility] Other 01-31-2023 10:00-0500 Body mass index (BMI) [Ratio] 27.32 kg/m2 Horace Jasso Other [facility] Other 01-31-2023 10:00-0500 Body temperature 97.6 [degF] Horace Jasso Other [facility] Other 01-31-2023 10:00-0500 Body weight 83.92 kg Horace Louisa Other [facility] Other 01-31-2023 10:00-0500 Diastolic blood pressure 64 mm[Hg] Horace Jasso Other [facility] Other 01-31-2023 10:00-0500 SaO2% (BldA) [Mass fraction] 94 % Horace Jasso Other [facility] Other 01-31-2023 10:00-0500 Systolic blood pressure 108 mm[Hg] Horace Louisa Other [facility] Other 03-27-2022 23:40-0500 Diastolic blood pressure 78 mm[Hg] [facility] 03-27-2022 23:40-0500 Heart rate 121 /min [facility] 03-27-2022 23:40-0500 Respiratory rate 22 /min [facility] 03-27-2022 23:40-0500 SaO2% (BldA) [Mass fraction] 92 % [facility] 03-27-2022 23:40-0500 Systolic blood pressure 137 mm[Hg] [facility] 01-31-2022 12:00-0500 Body height 175.26 cm 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 Other [facility] Other 01-31-2022 12:00-0500 Body mass index (BMI) [Ratio] 27.32 kg/m2 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 Other [facility] Other 01-31-2022 12:00-0500 Body temperature 96.4 [degF] 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 Other [facility] Other 01-31-2022 12:00-0500 Body weight 83.92 kg 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 Other [facility] Other 01-31-2022 12:00-0500 Diastolic blood pressure 72 mm[Hg] 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 Other [facility] Other 01-31-2022 12:00-0500 SaO2% (BldA) [Mass fraction] 97 % 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 Other [facility] Other 01-31-2022 12:00-0500 Systolic blood pressure 120 mm[Hg] 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 Other [facility] Other 11-23-2021 09:59-0400 Blood Pressure Location KONG [facility] 11-23-2021 09:59-0400 Diastolic blood pressure 70 mm[Hg] KONG MY [facility] 11-23-2021 09:59-0400 Heart rate 66 /min KONG MY [facility] 11-23-2021 09:59-0400 Systolic blood pressure 132 mm[Hg] KONG MY [facility] 08-16-2021 12:45-0400 Body height 175.26 cm Oumar Haynes Other [facility] Other 08-16-2021 12:45-0400 Body mass index (BMI) [Ratio] 27.32 kg/m2 Oumar Haynes Other [facility] Other 08-16-2021 12:45-0400 Body temperature 96.9 [degF] Oumar Haynes Other [facility] Other 08-16-2021 12:45-0400 Body weight 83.92 kg Oumar Haynes Other [facility] Other 08-16-2021 12:45-0400 Diastolic blood pressure 78 mm[Hg] Oumar Lionrerachid Other [facility] Other 08-16-2021 12:45-0400 SaO2% (BldA) [Mass fraction] 95 % Oumar Haynes Other [facility] Other 08-16-2021 12:45-0400 Systolic blood pressure 110 mm[Hg] Oumar Haynes Other [facility] Other Encounters Encounter Date Encounter Type Care Provider Facility Start: 09-22-2024 End: 09-22-2024 Office outpatient visit 25 minutes Clayton Mcfadden MD Work Phone: [address] Medicine Comment on above: Traumatic ecchymosis of lower back, initial encounter (Primary Dx); Fall in home, initial encounter; Mixed simple and mucopurulent chronic bronchitis (HCC); Panlobular emphysema (HCC) Start: 09-22-2024 End: 09-22-2024 ambulatory CLAYTON MCFADDEN Not Available Start: 09-22-2024 End: 09-22-2024 Clinisync Result Encounter Clayton Mcfadden MD Work Phone: [facility] External Department Unsolicited Start: 09-22-2024 End: 09-22-2024 Clinisync Result Encounter Clayton Mcfadden MD Work Phone: [facility] Unsolicited Start: 09-12-2024 End: 09-12-2024 Bamboo flowsheet Urban Sinclair DPM Work Phone: [facility] Start: 09-12-2024 End: 09-12-2024 Bamboo flowsheet Urban A Tu DPM Work Phone: [facility] Start: 09-12-2024 End: 09-12-2024 Patient encounter procedure Urban A Tu DPM Work Phone: [facility] Comment on above: Diabetes mellitus du e to underlying condition with diabetic polyneuropathy, without long-term current use of insulin (HCC) (Primary Dx); Pain due to onychomycosis of toenails of both feet Start: 09-12-2024 End: 09-12-2024 ambulatory URBAN SINCLAIR Not Available Start: 08-20-2024 End: 08-20-2024 Bamboo flowsheet Clayton Mcfadden MD Work Phone: [facility] Start: 08-20-2024 End: 08-20-2024 Bamboo flowsheet Clayton Mcfadden MD Work Phone: [facility] Start: 08-20-2024 End: 08-20-2024 Office outpatient visit 10 minutes Clayton Mcfadden MD Work Phone: [facility] Comment on above: Injury of right hand , initial encounter Start: 08-20-2024 End: 08-20-2024 ambulatory CLAYTON MCFADDEN Not Available Start: 08-04-2024 End: 08-04-2024 Bamboo flowsheet Clayton Mcfadden MD Work Phone: [facility] Start: 08-04-2024 End: 08-04-2024 Bamboo flowsheet Clayton Mcfadden MD Work Phone: [facility] Start: 08-04-2024 End: 08-04-2024 Office outpatient visit 15 minutes Clayton Mcfadden MD Work Phone: [facility] Comment on above: Fall from slip, trip , or stumble, subsequent encounter; Acute pain of left shoulder; Skin tear of left elbow without complication, subsequent encounter; Abrasion, left knee, subsequent encounter; Encounter for examination following treatment at hospital Start: 08-04-2024 End: 08-04-2024 ambulatory CLAYTON MCFADDEN Not Available Start: 07-17-2024 End: 07-17-2024 Office outpatient new 45 minutes Crystal Mcdermott MD [facility] Comment on above: Acute deep vein thro mbosis (DVT) of left femoral vein ([facility]- HCC) (Primary Dx) Start: 07-17-2024 End: 07-17-2024 [facility] Start: 07-10-2024 End: 07-10-2024 ambulatory CLAYTON MCFADDEN Not Available Start: 07-07-2024 End: 07-07-2024 Telephone encounter Radhika Phoenix [facility] Start: 07-04-2024 End: 07-04-2024 Bamboo flowsheet Urban Sinclair DPM Work Phone: [facility] Start: 07-04-2024 End: 07-04-2024 Bamboo flowsheet Urban Sinclair DPM Work Phone: [facility] Start: 07-04-2024 End: 07-04-2024 Patient encounter procedure Urban Sinclair DPM Work Phone: [facility] Comment on above: Diabetes mellitus du e to underlying condition with diabetic polyneuropathy, without long-term current use of insulin ([facility]/HCC) (Primary Dx); Pain due to onychomycosis of toenails of both feet; Contusion of left foot, initial encounter Start: 07-04-2024 End: 07-04-2024 ambulatory URBAN SINCLAIR Not Available Start: 07-02-2024 End: 07-02-2024 Bamboo flowsnikole Mcfadden MD Work Phone: [facility] [...] 06-10-2024 ambulatory Briseida Paez RN Work Phone: [facility] Start: 06-03-2024 End: 06-03-2024 Bamboo [...] 3a chronic kidney disease (HCC) (CMS/HCC); Microalbuminuria; Mixed hyperlipidemia (CMS/HCC); Type 2 diabetes mellitus with stage 3a chronic kidney disease, with long-term current use of insulin (HCC) (CMS/HCC); Type 2 diabetes mellitus with hyperglycemia, with long-term current use of insulin (CMS/HCC); Ex-smoker; Polypharmacy; Hyperuricemia Start: 06-03-2024 End: 06-03-2024 ambulatory CLAYTON MCFADDEN Not Available Start: 2024 End: 2024 ambulatory URBAN SINCLAIR Not Available Start: 04-23-2024 End: 04-23-2024 Bamboo flowsheet Clayton Mcfadden MD Work Phone: [...] organism (Primary Dx); Acute hypoxic respiratory failure ([facility]/HCC); Acute exacerbation of chronic obstructive pulmonary disease (COPD) ([facility]); Type 2 diabetes mellitus with hyperglycemia, with long-term current use of insulin ([facility]); Benign essential hypertension ([facility]); Encounter for examination following treatment at hospital; Thrush; Noncompliance by declining service; Overweight Start: 04-09-2024 End: 04-09-2024 ambulatory CLAYTON MCFADDEN Not Available Start: 04-09-2024 End: 04-09-2024 Bamboo flowsnikole Mcfadden MD Work Phone: [facility] Start: 04-09-2024 End: 04-09-2024 Bamboo yadi Mcfadden MD Work Phone: [facility] [...] Result Encounter Clayton Mcfadden MD Work Phone: [facility] External Department Unsolicited Start: 11-06-2023 End: 11-06-2023 Clinisync Result Encounter Clayton Mcfadden MD Work Phone: [facility] External Department Unsolicited Start: 03-28-2023 Refill Clayton diez MD Work Phone: [facility] Comment on above: 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, with long-term current use of insulin (HCC) ([facility]) Start: 01-31-2023 Office outpatient vi sit 15 minutes Horace [facility] Start: 01-31-2023 End: 01-31-2023 ambulatory 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 Facility:[facility] Start: 01-31-2023 End: 01-31-2023 ambulatory MD Clayton Mcfadden Work Phone: [facility] Other Start: 01-31-2023 End: 01-31-2023 Patient encounter procedure MD Clayton Mcfadden Work Phone: [facility] Start: 12-01-2022 End: 12-01-2022 ambulatory C[facility]TON Lariosy [facility] Start: 10-03-2022 End: 10-03-2022 ambulatory CLAYTON Miguel [facility] Start: 08-28-2022 End: 08-29-2022 ambulatory CLAYTON Miguel [facility] Start: 08-09-2022 End: 08-10-2022 ambulatory CLAYTON Miguel [facility] Start: 08-09-2022 End: 08-09-2022 Subsequent hospital visit by physician Clayton Mcfadden MD Work Phone: [facility] Laboratory Comment on above: Dysuria; Frequency of micturition Start: 07-03-2022 End: 07-04-2022 ambulatory ZOILA JAVED . Facility:[facility] Start: 06-26-2022 End: 06-27-2022 ambulatory ZOILA JAVED . Facility:[facility] Start: 06-14-2022 End: 06-15-2022 ambulatory CLAYTON MCFADDEN [facility] Start: 04-24-2022 End: 05-18-2022 ambulatory THELMA BETTS Facility:[facility] Start: 04-19-2022 End: 04-19-[address] CLAYTON MCFADDEN . Facility:[facility] Start: 04-05-2022 End: 04-08-2022 Evaluation and management of inpatient GABRIELA WOMACKP . Facility:[facility] Start: 04-05-2022 End: 04-06-[address] CLAYTON MCFADDEN . Facility:[facility] Start: 03-30-2022 End: 06-29-2022 ambulatory UNKNOWN PROVIDER Facility:[facility] Start: 03-28-2022 End: 03-29-2022 ambulatory SHAIKH Matilde LAU Facility:[facility] Start: 03-27-2022 End: 03-27-2022 ambulatory [facility] Triage, Treat and Transport Start: 03-27-2022 End: 03-27-2022 Emergency department patient visit [facility] Emergency Triage, Treat and Transport Comment on above: Arrived Start: 03-02-2022 End: 03-03-[address] CLAYTON MCFADDEN . Facility:[facility] Start: 03-01-2022 End: 03-02-2022 ambulatory ERICA RAMOS [facility] Start: 03-01-2022 End: 03-01-2022 Subsequent hospital visit by physician Clayton Mcfadden MD Work Phone: [facility] Laboratory Comment on above: BPH with obstruction /lower urinary tract symptoms; Dysuria Start: 02-22-2022 ambulatory KONG Anaya ty:KENNY Alejandro Start: 02-20-[address] CLAYTON MCFADDEN . Fac ility:[facility] Start: 02-06-2022 End: 02-07-[address] CLAYTON MCFADDEN . Facility:[facility] Start: 02-06-2022 End: 02-06-[address] CLAYTON MCFADDEN . Facility: Start: 02-01-2022 End: 02-02-[address] CLAYTON MCFADDEN . Facility:[facility] Start: 01-31-2022 End: 01-31-2022 ambulatory 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 Other [facility] Other Start: 01-31-2022 Follow-up encounter Yolette [facility] Start: 01-30-2022 End: 01-30-2022 ambulatory MD Clayton Mcfadden Work Phone: [facility] Work Phone: Start: 01-30-2022 End: 01-30-2022 Patient encounter procedure MD Clayton Mcfadden Work Phone: [facility]-CT Scan [facility] [place] Start: 11-23-2021 End: 11-24-2021 ambulatory KONG PEPE Facility:[facility] Start: 11-23-2021 End: 11-23-2021 Patient encounter procedure KONG PEPE [facility] Start: 09-21-2021 End: 09-22-[address] CLAYTON MCFADDEN . Facility: Start: 08-19-[address] CLAYTON MCFADDEN . Fac ility:[facility] Start: 08-16-2021 End: 08-16-2021 ambulatory Oumar Haynes Other [facility] Other Start: 08-16-2021 Office outpatient ne w 45 minutes Oumar Haynes [facility] Vascular Surgery Start: 08-03-2021 End: 08-04-[address] CLAYTON MCFADDEN . Facility: Procedures Date Procedure Procedure Detail Performing Clinician Start: 09-22-2024 XR CHEST 2V Clayton ruiz MD Work Phone: Start: 09-22-2024 XR RIBS RT 2V Clayton Mcfadden MD Work Phone: Start: 07-02-2024 Dup-scan xtr veins unilateral/limited study [...] above: Performed By: #### P OCGLUC #### [facility] [address] [place] [address] Dr. Kerrie Stark Start: 03-01-2022 Urnls dip stick/tabl et reagent auto microscopy Erica Ramos MD Work Phone: Start: 01-30-2022 Computed tomography angiography of abdominal and/or pelvic blood vessel MD Clayton Mcfadden Work Phone: Start: 12-24-2017 Cystoscopy KONG BRITO Start: [birth year]-19-1977 H/O: vasectomy KONG PEPE Plan of Treatment Date Care Activity Detail Author Start: 05-26-2026 Glaucoma screening Diabetes: R etinopathy Screening [facility] Healthcare Start: 07-17-2025 Tobacco Screening Tobacco Screening [facility] Start: 05-21-2025 Glaucoma screening Diabetes: R etinopathy Screening [facility] Start: 03-24-2025 Urine screening for protein Diabetes: Urine Protein Screening [facility] Start: 12-02-2024 End: 12-02-2024 Patient encounter procedure 12/02/2024 1:40 PM EDT Office Visit [facility] [address] [place] [id number] Urban Sinclair DPM [address] [address] [facility] Start: 11-26-2024 End: 11-26-2024 Patient encounter procedure [facility] Start: 10-27-2024 End: 10-27-2024 Patient encounter procedure 10/27/2024 2:30 PM EDT Office Visit [facility] [address] [place] [address] Clayton Mcfadden MD [address] [place] [address] (Fax) [facility] Start: 10-20-2024 Influenza vaccination [facility] Start: 09-22-2024 End: 09-22-2024 Patient encounter procedure [facility] Comment on above: Arrived Start: 09-12-2024 End: 09-12-2024 Patient encounter procedure [facility] Comment on above: Diabetes mellitus du e to underlying condition with diabetic polyneuropathy, without long-term current use of insulin (HCC) (Primary Dx); Pain due to onychomycosis of toenails of both feet Start: 08-20-2024 End: 08-20-2024 Patient encounter procedure 08/20/2024 9:30 AM EDT Office Visit [facility] [address] [place] [address] Clayton Mcfadden MD [address] [place] [address] (Fax) Arrived [facility] Comment on above: Arrived Start: 08-04-2024 End: 08-04-2024 Patient encounter procedure 08/04/2024 11:00 AM EDT Office Visit [facility] [address] [place] [address] Clayton Mcfadden MD [address] [place] [address] (Fax) Arrived [facility] Comment on above: Arrived Start: 07-10-2024 End: 07-10-2024 Patient encounter procedure 07/10/2024 9:30 AM EDT Office Visit [facility] [address] [place] [address] Clayton Mcfadden MD [address] [place] [address] (Fax) [facility] Start: 07-04-2024 [...] [facility] [address] [place] [address] Clayton Mcfadden MD [address] [place] [address] (Fax) Arrived [facility] Comment [...] (HCC) (CMS/HCC) Expected: 06/03/2024 (Approximate), Expires: 06/03/2025 [facility] Work Phone: Comment on above: Expected: 06/03/2024 (Approximate), Expires: 06/03/2025 Start: 06-03-2024 End: 06-03-2025 Hemoglobin A1c/Hemoglobin.total in Blood Hemoglobin A1c Lab Routine Type 2 diabetes mellitus with stage 3a chronic kidney disease, with long-term current use of insulin ([facility]) ([facility]) Expected: 06/03/2024 (Approximate), Expires: 06/03/2025 [facility] Healthcare Comment on above: Expected: 06/03/2024 (Approximate), Expires: 06/03/2025 Start: 06-03-2024 End: 06-03-2025 Lipid 1996 panel - Serum or Plasma Lipid panel Lab Routine Mixed hyperlipidemia ([facility]) Expected: 06/03/2024 (Approximate), Expires: 06/03/2025 [facility] Healthcare Comment on above: Expected: 06/03/2024 (Approximate), Expires: 06/03/2025 Start: 06-03-2024 End: 06-03-2024 Patient encounter procedure [facility] Comment on above: Benign essential hyp ertension ([facility]); Hypertensive nephropathy ([facility]); Stage 3a chronic kidney disease (HCC) ([facility]); Microalbuminuria; Mixed hyperlipidemia ([facility]); Type 2 diabetes mellitus with stage 3a chronic kidney disease, with long-term current use of insulin ([facility]) ([facility]); Type 2 diabetes mellitus with hyperglycemia, with long-term current use of insulin ([facility]); Ex-smoker; Polypharmacy Start: 05-07-2024 Hemoglobin A1c measurement Diabetes: Hemoglobin A1C [facility] Start: 04-23-2024 End: 04-23-2024 Patient encounter procedure [facility] Comment on above: Arrived Start: 04-14-2024 End: 04-14-2024 Telemedicine consultation with patient [facility] Comment on above: Acquired hypothyroid ism ([facility]); Chronic fatigue; Gastroesophageal reflux disease without esophagitis; Hyperuricemia; Polypharmacy; Overweight Start: 04-09-2024 End: 04-09-2024 Patient encounter procedure 04/09/2024 2:30 PM EST Office Visit [facility] [address] [place] [address] Clayton Mcfadden MD [address] [place] [address] (Fax) Encounter for examination following treatment at hospital; Pneumonia of right lower lobe due to infectious organism; Acute hypoxic respiratory failure (CMS/HCC); Acute exacerbation of chronic obstructive pulmonary disease (COPD) (CMS/HCC); Controlled type 2 diabetes mellitus with hyperglycemia, with long-term current use of insulin (CMS/HCC); Benign essential hypertension (CMS/HCC); Overweight [facility] Comment on above: Encounter for examin ation following treatment at hospital; Pneumonia of right lower lobe due to infectious organism; Acute hypoxic respiratory failure (CMS/HCC); Acute exacerbation of chronic obstructive pulmonary disease (COPD) (CMS/HCC); Controlled type 2 diabetes mellitus with hyperglycemia, with long-term current use of insulin ([facility]/HCC); Benign essential hypertension (CMS/HCC); Overweight Start: 03-14-2024 Urine screening for protein Diabetes: Urine Protein Screening [facility] Start: 03-06-2024 Glaucoma screening Diabetes: R etinopathy Screening [facility] Start: 11-18-2023 Hemoglobin A1c measurement Diabetes: Hemoglobin A1C [facility] Start: 11-12-2023 End: 11-12-2023 Patient encounter procedure [facility] Comment on above: Benign essential hyp ertension (CMS/HCC); Hypertensive nephropathy (CMS/HCC); Stage 3a chronic kidney disease (HCC) ([facility]/HCC); Microalbuminuria; Type 2 diabetes mellitus with stage 3a chronic kidney disease, with long-term current use of insulin (HCC) ([facility]/HCC); Mixed hyperlipidemia ([facility]/HCC); Hyperuricemia; Hypomagnesemia; Polypharmacy; Ex-smoker; Overweight Start: 10-21-2023 COVID-19 Vaccine ( season) COVID-19 Vaccine ( season) [facility] Start: 10-21-2023 Influenza vaccination Influenza Vacc ine (#1) [facility] Start: 05-22-2023 End: 05-22-2023 Patient encounter procedure 05/22/2023 11:00 AM EDT Office Visit [facility] [address] [place] [address] Clayton Mcfadden MD [address] [place] [address] [facility] Start: 03-28-2023 Urine screening for protein Diabetes: Urine Protein Screening [facility] Start: 01-23-2023 Hemoglobin A1c measurement Diabetes: Hemoglobin A1C [facility] Start: 09-20-2022 End: 09-20-2022 Patient encounter procedure 09/20/2022 Office Visit [facility] Start: 03-20-2022 End: 03-20-2022 Patient encounter procedure 03/20/2022 Procedure visit [facility] Start: 03-01-2022 Annual Wellness Visi t (AWV) Annual Wellness Visit (AWV) [facility] Start: 11-19-2021 Influenza vaccination Influenza Vacc ine (#1) [facility] Start: 09-19-2021 Influenza vaccination Flu vaccine (# 1) [facility] Start: 01-29-2021 COVID-19 Vaccine (4 - Booster for Pfizer series) COVID-19 Vaccine (4 - Booster for Pfizer series) [facility] Start: 02-18-2014 Administration of varicella zoster vaccine Zoster (Shingles) Vaccine (2 of 3) [facility] Start: 02-18-2014 Shingles vaccine (2 of 3) Shingles vaccine (2 of 3) [facility] Start: 2005 Fall Risk Screening Fall Risk Screen ing [facility] Start: 2005 Pneumococcal 65+ yea rs Vaccine (1 - PCV) Pneumococcal 65+ years Vaccine (1 - PCV) [facility] Start: 2005 Pneumococcal vaccination Pneum ococcal Vaccine(s) (65+ yrs) (1 - PCV) [facility] Start: 1990 Administration of varicella zoster vaccine Zoster (Shingles) Vaccine (1 of 2) [facility] Start: 1990 Shingles (RZV) Vacci ne (1 of 2) Shingles (RZV) Vaccine (1 of 2) [facility] Start: 1990 Shingles vaccine (1 of 2) Shingles vaccine (1 of 2) [facility] Start: 04-26-1959 DTaP,Tdap and Td Vaccines (1 - Tdap) DTaP,Tdap and Td Vaccines (1 - Tdap) [facility] Start: 04-26-1959 DTaP/Tdap/Td vaccine (1 - Tdap) DTaP/Tdap/Td vaccine (1 - Tdap) [facility] Start: 1958 Tetanus + diphtheria + acellular pertussis vaccine (product) Tdap Booster [facility] Start: 1952 Depression Screen Depression Screen [facility] Start: 1952 Depression Screening Depression Scre ening [facility] Start: 1952 Tobacco Screening Tobacco Screening [facility] Start: 1950 Lipid panel Lipids [facility] Start: 1940 COVID-19 Vaccine (#1) COVID-19 Vacci ne (#1) [facility] AEROBE ID + SUSCEPT AEROBE ID + SUSCEPT Lab Routine 04/02/2024 10:09 AM EST [facility] ANAEROBE IDENTIFICAT ION ONLY ANAEROBE IDENTIFICATION ONLY Lab Routine 04/02/2024 10:09 AM EST [facility] End: 03-01-2022 Culture, Urine [facility] Work Phone: Comment on above: 1 Occurrences starti ng 03/01/2022 until 03/01/2022 End: 08-09-2022 Culture, Urine [facility] Comment on above: 1 Occurrences starti ng 08/09/2022 until 08/09/2022 Immunizations Immunization Date Immunization Notes Care Provider Fa cility 07-27-2024 tetanus toxoid, redu braxton diphtheria toxoid, and acellular pertussis vaccine, adsorbed Clayton Mcfadden MD Work Phone: [facility] 12-27-2023 influenza, seasonal, injectable Briseida Paez RN Work Phone: [facility] 12-27-2023 influenza virus vacc ine, unspecified formulation Crystal Mcdermott MD Work Phone: [facility] 12-04-2022 Influenza, Seasonal, Quadrivalent, Adjuvanted Clayton Mcfadden MD Work Phone: [facility] 12-04-2022 influenza virus vacc ine, unspecified formulation Clayton Mcfadden MD Work Phone: [facility] 12-08-2021 influenza, injectabl e, quadrivalent, preservative free Clayton Mcfadden MD Work Phone: [facility] 12-08-2021 Influenza, Seasonal, Quadrivalent, Adjuvanted Clayton Mcfadden MD Work Phone: [facility] 12-04-2020 influenza, high dose seasonal, preservative-free Clayton Mcfadden MD Work Phone: [facility] 12-04-2020 Influenza, High-dose Seasonal, Quadrivalent, Preservative Free Clayton Mcfadden MD Work Phone: [facility] 11-29-2019 influenza, injectabl e, quadrivalent, preservative free Clayton Mcfadden MD Work Phone: [facility] 10-15-2019 influenza, high dose seasonal, preservative-free Clayton Mcfadden MD Work Phone: [facility] 11-07-2018 influenza, injectabl e, quadrivalent, preservative free Clayton Mcfadden MD Work Phone: [facility] 11-07-2018 Seasonal trivalent influenza vaccine, adjuvanted, preservative free Clayton Mcfadden MD Work Phone: [facility] 11-23-2017 influenza, high dose seasonal, preservative-free Clayton Mcfadden MD Work Phone: [facility] 11-23-2017 influenza, injectabl e, quadrivalent, preservative free Clayton Mcfadden MD Work Phone: [facility] 01-31-2017 pneumococcal conjuga te vaccine, 13 valent Clayton Mcfadden MD Work Phone: [facility] 01-19-2017 pneumococcal conjuga te vaccine, 13 valent Clayton Mcfadden MD Work Phone: [facility] 01-17-2017 influenza, high dose seasonal, preservative-free Clayton Mcfadden MD Work Phone: [facility] 01-12-2016 pneumococcal polysaccharide vaccine, 23 valent Clayton Mcfadden MD Work Phone: [facility] 12-16-2015 influenza, high dose seasonal, preservative-free Clayton Mcfadden MD Work Phone: [facility] 01-08-2015 influenza, injectabl e, quadrivalent, preservative free Clayton Mcfadden MD Work Phone: [facility] 01-08-2015 influenza, seasonal, injectable, preservative free Clayton Mcfadden MD Work Phone: [facility] 12-24-2013 zoster vaccine, live Clayton Mcfadden MD Work Phone: [facility] 12-24-2013 zoster vaccine, unspecified formulation Crystal Mcdermott MD Work Phone: [facility] 08-06-2013 pneumococcal polysaccharide vaccine, 23 valent Clayton Mcfadden MD Work Phone: [facility] 12-23-2012 influenza, seasonal, injectable, preservative free Clayton Mcfadden MD Work Phone: [facility] Payers Date Payer Category Payer Unknown [id number] 2022 Unknown [id number] 2022 Private Health Insurance AMAN wheatley [id number] 2022 Unknown AARP AARP [id number] 2022-Present [address] [place] [address] [id number] 2005 Medicare [id number] 1959 Medicare [id number] [id number] 1959 Self-pay [id number] 1959 Self-pay [id number] 1959 Unknown [id number] 2.16.840.1.823308.19 1940 Unknown [id number] 2.16.840.1.298823.3.579.2 .727 1940 Unknown [id number] 2.16.840.1.191645.3.579.2 .727 1940 Unknown [id number] 2.16.840.1.297285.3.579.2 .732 1940 Unknown [id number] 2.16.840.1.438652.3.579.2 .593 1940 Unknown [id number] 2.16.840.1.615720.3.579.2 .593 1940 Unknown [id number] 2.16.840.1.570903.3.579.2 .593 1940 Unknown [id number] 2.16.840.1.638391.3.579.2 .593 1940 Unknown [id number] 2.16.840.1.431926.3.579.2 .593 1940 Unknown [id number] 2.16.840.1.445853.3.579.2 .593 1940 Unknown [id number] 2.16.840.1.266073.3.579.2 .593 1940 Unknown [id number] 2.16.840.1.905484.3.579.2 .593 1940 Unknown [id number] 2.16.840.1.899508.3.579.2 .593 1940 Unknown [id number] 2.16.840.1.404665.3.579.2 .593 1940 Unknown [id number] 2.16.840.1.678817.3.579.2 .593 1940 Unknown [id number] 2.16.840.1.522661.3.579.2 .593 1940 Unknown [id number] 2.16.840.1.274107.3.579.2 .593 1940 Unknown [id number] 2.16.840.1.105131.3.579.2 .593 1940 Unknown [id number] 2.16.840.1.254193.3.579.2 .593 1940 Unknown [id number] 2.16.840.1.676999.3.579.2 .173 1940 Unknown [id number] 2.16.840.1.772714.3.579.2 .173 1940 Unknown [id number] 2.16.840.1.406650.3.579.2 .173 1940 Unknown [id number] 2.16.840.1.976266.3.579.2 .173 1940 Unknown [id number] 2.16.840.1.902911.3.579.2 .173 1940 Unknown [id number] 2.16.840.1.652785.3.579.2 .173 1940 Unknown [id number] 2.16.840.1.901612.3.579.2 .1286 1940 Unknown [id number] 2.16.840.1.553750.3.579.2 .1259 1940 Unknown [id number] 2.16.840.1.780070.3.579.2 .1259 1940 Unknown [id number] 2.16.840.1.264250.3.579.2 .1259 1940 Unknown [id number] 2.16.840.1.400010.3.579.2 .1259 1940 Unknown [id number] 2.16.840.1.233300.3.579.2 .1259 1940 Unknown [id number] 2.16.840.1.654957.3.579.2 .1259 1940 Unknown [id number] 2.16.840.1.815186.3.579.2 .125 1940 Unknown [id number] 2.16.840.1.980049.3.579.2 .1259 1940 Unknown [id number] 2.16.840.1.292028.3.579.2 .1259 1940 Unknown [id number] 2.16.840.1.461753.3.579.2 .1259 1940 Unknown [id number] 2.16.840.1.525962.3.579.2 .1259 1940 Unknown [id number] 2.16.840.1.612358.3.579.2 .1259 1940 Unknown [id number] 2.16.840.1.984449.3.579.2 .1259 1940 Unknown [id number] 2.16.840.1.429618.3.579.2 .1259 1940 Unknown [id number] 2.16.840.1.975204.3.579.2 .1259 Unknown [id number] 2.16.840.1.493715.3.579.2 .531 Social History Date Type Detail Facility Start: 10-25-2022 End: 01-03-2024 Sex Assigned At [facility] Start: 05-12-2019 Tobacco smoking status Never smoked tobacco (finding) [facility] Start: 1940 Sex Assigned At Male [facility] Start: 03-01-2022 End: 11-12-2023 Tobacco smoking status MIIS Ex-smoker [employer] Phone: Start: 02-20-1964 End: 01-08-1995 History of tobacco use Current smoker [facility]: Start: 02-20-1964 End: 01-08-1995 History of tobacco use Cigarette Smoker [facility]: Start: 03-01-2022 End: 11-12-2023 Tobacco use and exposure Smokeless tobacco non-user [facility] Phone: Start: 03-01-2022 End: 05-23-2023 Alcohol intake Lifetime non-drinker (finding) [facility] Phone: Start: 1940 Sex Assigned At Not on file [facility] Phone: Tobacco smoking stat [facility] Tobacco smoking consumption unknown [facility] Start: 10-25-2022 End: 01-03-2024 History of Social function [facility] Fear of Current or Ex-Partner Not on file [facility] Within the last year , have you been humiliated or emotionally abused in other ways by your partner or ex-partner? No [facility] Do you belong to any clubs or organizations such as orthodox groups, unions, fraternal or athletic groups, or [...] smoking: >30 years. Last smoked: >10 years [facility] Start: 08-12-2022 Alcohol Comment Caffeine intake: 1-2 cups per day [facility] Start: 12-17-2023 End: 09-22-2024 Alcoholic beverage intake Ex-drinker (finding) [facility] [...] [facility] Start: 07-07-2024 Sex Male (finding) [facility] Start: 07-07-2024 Gender identity Identifies as male gender (finding) [facility] Start: 07-17-2024 Tobacco Comment Quit 30 years ago [facility] Medical Equipment Procedure Code Equipment Code Equipment Origin al Text Equipment Identifier Dates 1 each by Other route in the morning and 1 each at noon and 1 each in the evening and 1 each before bedtime. Use as instructed 4 times a day. Sliding scale to titrate blood sugars One touch Ultra Blue. [id number] Start: 03-23-2023 End: 06-21-2023 1 each by Other route in the morning and 1 each in the evening and 1 each before bedtime. Use as instructed. Sliding scale to titrate blood sugars One touch Ultra Blue DX: E11.22, N18.31, Z79.4. [id number] Start: 06-07-2023 End: 01-09-2024 1 each by Other route in the morning and 1 each in the evening and 1 each before bedtime. Use as instructed. Sliding scale to titrate blood sugars One touch Ultra Blue DX: E11.22, N18.31, Z79.4. [id number] Start: 01-09-2024 End: 07-07-2024 Use as instructe d 3 times a day [id number] Start: 03-04-2024 End: 03-04-2025 1 Lancet in the morning and 1 Lancet in the evening and 1 Lancet before bedtime. Uses One touch [employer] lancet/device. [id number] Start: 01-28-2024 End: 05-07-2024 Functional Status Date Assessment Result Facility 10-07-2024 Patient Health Quest ionnaire 2 item (PHQ-2) [Reported] [facility] 08-20-2024 Patient Health Quest ionnaire 2 item (PHQ-2) [Reported] [facility] 08-04-2024 Patient Health Quest ionnaire 2 item (PHQ-2) [Reported] [facility] 06-03-2024 Patient Health Quest ionnaire 2 item (PHQ-2) [Reported] [facility] 11-23-2021 Functional Status N/A [facility] Clinical Notes 08-16-2021 to 09-22-2024 Clayton Mcfadden MD - 09/22/2024 3:00 PM Raquel Mcfadden MD - 08/20/2024 9:30 AM Raquel Mcfadden MD - 08/04/2024 11:00 AM EDTAddendum Note - Divina [facility] - 07/17/2024 8:50 AM EDT Note Date & Type Note Facility 09-22-2024 History of Presen t illness Narrative Patient ID: Chema Childs is a 84 y.o. male who presents for: Patient is here for evaluation after a fall. Patient reportedly was tripped on the edging which is not high when he fell from standing. The accident occurred a few days ago. It is reported that the patient did not have LOC and was ambulatory on scene. At this time he complains of left backside pain and rib area. Patient here with his . Review of Systems Respiratory: Positive for shortness of breath (no different than his usual.). Cardiovascular: Negative for palpitations and leg swelling. Gastrointestinal: Negative for abdominal pain. Genitourinary: Negative for hematuria. Musculoskeletal: Positive for back pain. Negative for gait problem, neck pain and neck stiffness. Psychiatric/Behavioral: Negative for confusion. Objective In general the patient is pleasant and in no acute distress. Shoddy bilateral anterior cervical adenopathy. Otherwise the neck is supple and nontender. No signs of respiratory distress. Patient is speaking full sentences. There are Diffusely decreased but symmetrical breath sounds. No rhonchi or rales are appreciated. No wheezes. Skin is warm and dry, there is a fairly significant bruise over the left flank and lower back. This bruise does extend up onto the ribs slightly. There is no tenderness in the spinous processes in this region. 09/22/2024 3:02 PM 09/12/2024 1:12 PM 08/20/2024 9:40 AM 08/04/2024 10:48 AM Vitals BMI 26.98 kg/m2 26.98 kg/m2 26.98 kg/m2 26.98 kg/m2 BSA (m2) 2.05 m2 2.05 m2 2.05 m2 2.05 m2 Heart Rate 74 SpO2 92 % Resp 18 Height (in) 5' 10 5' 10 5' 10 5' 10 Weight (lb) 188 188 188 188 Visit Report Report Report Report Report Allergies Allergen Reactions Erythromycin Nausea And Vomiting Erythromycin Base Nausea Only Levofloxacin Diarrhea Metformin Hcl Other Reaction(s): loose bowels Sulfamethoxazole-Trimethoprim Other Reaction(s): GI upset/diarrhea Sulfa Antibiotics Rash Current Outpatient Medications on File Prior to [...] DX: E11.22, N18.31, Z79.4. 270 each 1 guaiFENesin (Mucinex) 600 MG 12 hr tablet Take 600 mg by mouth Daily Do not crush, chew, or split. insulin aspart, with niacinamide, (Fiasp FlexTouch) 100 [...] 1 Lancet before bedtime. Uses One touch [employer] lancet/device. 300 each 3 latanoprost (Xalatan) 0.005 % ophthalmic solution Administer 1 drop into both eyes at bedtime levothyroxine (Synthroid, Levoxyl) 88 MCG tablet Take 1 tablet (88 mcg) by mouth in the morning. Take before meals. 90 tablet 1 losartan (Cozaar) 50 MG tablet Take 1 tablet (50 mg) by mouth Daily 90 tablet 1 magnesium oxide (Mag-Ox) 400 (240 Mg) MG tablet Take 400 mg by mouth Daily magnesium oxide (Mag-Ox) 400 mg tablet Take [...] the morning and 1 drop before bedtime. Xarelto 20 MG tablet Take 20 mg by mouth in the morning. No current facility-administered medications on file prior to visit. 1. Traumatic ecchymosis of lower back, initial encounter (Primary) After discussion with him in his I do think we should get a set of rib x-rays on this side. We also discussed if they notice any blood in the urine that that needs to be further evaluated. His chronic respiratory problems do complicate diagnostic evaluation as he is normally got decreased breath sounds on both sides. We discussed and he is requesting something for pain. Is certainly not unreasonable to give him a little bit of pain medication. We discussed that he take 2 500 mg Tylenol 3 times daily right along with the tramadol. Do not harvinder the pain just take it for a couple of days and then go to as needed PDMP reviewed, Clayton Mcfadden MD on 09/22/2024 3:31 PM Appears as expected. I specifically note the patient has one or more high risk medications that is a chronic problem that specifically increases complexity of decision making and complicates all prescribing including prescription renewal consistent with a moderate or complex degree of decision making. A high-risk medicine is one that may cause serious health problems if not taken the correct way, or taken with another drug or food item that it may interact with. If the high-risk medication includes a controlled or reportable substance, The OARRS and NARX scores were reviewed and seem to be consistent with their prescribing pattern. The Current Opioid Misuse Measure (COMM) is reviewed and there is no evidence of aberrant behavior or abuse. Treatment regimens are increasingly complex and potentially harmful, and people with high risk medications need regular review and prescribing optimization. - traMADol (Ultram) 50 MG tablet; Take 1 tablet (50 mg) by mouth every 8 (eight) hours if needed for severe pain or moderate pain for up to 7 days Dispense: 21 tablet; Refill: 0 2. Fall in home, initial encounter We did discuss that he is going to have to be more careful. He is still trying to do all the things he used to be able to do and I think this is jeopardizing him a bit. We did talk about the possibility of getting him into physical therapy for strength and stability training. They both declined this at this time. 3. Mixed simple and mucopurulent chronic bronchitis (HCC) Chronic problem seems stable complicates diagnostic picture 4. Panlobular emphysema (HCC) Chronic problem seems stable complicates diagnostic picture Please Note: Portions of this chart may have been created using voice recognition software. Occasionally a wrong-word or sound-like substitutions may have occurred due to inherent limitations of the voice recognition software. Please read the chart carefully and recognize, using context, where the substitutions may have occurred. documented in this encounter [facility] 08-20-2024 History of Presen t illness Narrative Images from the original note were not included. Patient ID: Chema Childs is a 84 y.o. male who presents for: Pt states his right hand has been swollen and bruised 4-5 days. Some of the bruising never leaves the hands but this is worse. He states he pinched his hand on something on the mower. He does have a blister in the crease of his palm in between the thumb and pointer finger which is 2cm long and 1cm wide. he denies any significant weakness or pain or numbness in the hand. Objective He has some mild superficial bruising on the dorsum of both hands from shearing and dry skin. He has a small area that has the bit deeper bruise that is about 2-1/2 cm around. In the center this is the 2 cm x 1 cm blister. There is some mild erythema around this but it does not appear cellulitic. 04/23/2024 11:29 AM 2024 11:40 AM 06/03/2024 10:03 AM 07/02/2024 11:30 AM 07/04/2024 1:22 PM 07/10/2024 9:24 AM 08/04/2024 10:48 AM Vitals BMI 25.52 kg/m2 24.68 kg/m2 24.68 kg/m2 26.98 kg/m2 26.98 kg/m2 26.98 kg/m2 26.98 kg/m2 BSA (m2) 2.04 m2 1.96 m2 1.96 m2 2.05 m2 2.05 m2 2.05 m2 2.05 m2 Systolic 134 Diastolic 80 Heart Rate 76 80 74 SpO2 98 % 97 % 92 % Resp 18 16 Height (in) 5' 11 5' 10 5' 10 5' 10 5' 10 5' 10 5' 10 Weight (lb) 183 172 172 188 188 188 188 Visit Report Report Report Report Report Report Report Report Allergies Allergen Reactions Erythromycin Nausea And Vomiting Erythromycin Base Nausea Only Levofloxacin Diarrhea Metformin Hcl Other Reaction(s): loose bowels Sulfamethoxazole-Trimethoprim Other Reaction(s): GI upset/diarrhea Sulfa Antibiotics Rash Current Outpatient Medications on File Prior to [...] DX: E11.22, N18.31, Z79.4. 270 each 1 guaiFENesin (Mucinex) 600 MG 12 hr tablet Take 600 mg by mouth Daily Do not crush, chew, or split. insulin aspart, with niacinamide, (Fiasp FlexTouch) 100 [...] 1 Lancet before bedtime. Uses One touch [employer] lancet/device. 300 each 3 latanoprost (Xalatan) 0.005 [...] the morning and 1 drop before bedtime. Xarelto 20 MG tablet Take 20 mg by mouth in the morning. No current facility-administered medications on file prior to visit. 1. Injury of right hand, initial encounter I gave the 2 of them a choice that we can debride this today which is not really what I am recommending or they could keep an eye on it as the blister is intact. We talked about signs and symptoms of cellulitis. We talked about if the blister spontaneously drains which most likely will happen, having his just use forceps and lift the end and snip the skin with the cuticle scissors to make sure there is an opening. They can certainly contact me tomorrow or Sunday but there is a reasonably good chance it will happen over the iday weekend. At that point she can eat a put a little bit of antibiotic cream on the open wound or some healing cream and just a dressing. documented in this encounter [facility] 08-04-2024 History of Presen t illness Narrative Images from the original note were not included. Patient ID: Chema Childs is a 84 y.o. male who presents for: ER Follow up: Fall Flowsheet Row Patient Outreach from 07/28/2024 in [facility] with rBiseida Paez RN Hospital Information ED, Hospital or Custodial Facility Discharge? ED Discharge Date 07/27/24 Discharged To: Home Setting Discharge Hospital [facility] Engagement Call Start Time 1533 Admission Date 07/27/24 Medications Discharge medications reviewed and reconciled from hospital? Not applicable Does the patient have all medications ordered at discharge? Not applicable Nursing Interventions No intervention needed Is the patient taking all medications as directed (includes completed medication regime)? Yes Appointments Does the patient have a primary care provider? Yes [08/04 at 11:30 am] Nursing Interventions Verified appointment date/time/provider Does the patient have any upcoming specialty appointments? No Self Management Does patient have home health? no Patient Teaching Does the patient have access to their discharge instructions? Yes [spoke with pt's ] Nursing Interventions Reviewed instructions with patient What is the patient's perception of their health status since discharge? Improving [Feeling better, still has areas wrapped.] Is the patient/caregiver able to teach back the hierarchy of who to call/visit for symptoms/problems? PCP, Specialist, Home Health nurse, Urgent Care, ED, 911 Yes Wrap Up Is the patient/caregiver familiar with Advance Care Planning? Yes Would the patient like more information on Advance Care Planning? No Wrap Up Additional Comments Pt was outside using [employer], tripped/lost balance and fell. Presented to ER for evaluation. Abrasion to left knee and wrist. Laceration of skin Left elbow. Pt has steri strips in place on Left Elbow. Will cleanse area with soap and water, rinse and pat dry daily. Monitor for signs of infection. Pt had Xrays left wrist, knee and elbow-all negative Call End Time 1546 Pt states he is still very sore on left shoulder. He would like to ask [facility] if he can safely take the tramadol to help with the pain. Review of Systems Constitutional: Negative for chills and fever. Respiratory: Negative for cough, shortness of breath and wheezing. Cardiovascular: Negative for chest pain and palpitations. Gastrointestinal: Negative for abdominal pain. Genitourinary: Negative for frequency and urgency. Musculoskeletal: Positive for arthralgias and myalgias. Objective The patient is pleasant and in no acute distress The patient has good eye contact and clear speech Left knee with multiple scabs mostly over the lateral and anterior aspect. Mild swelling. Has adequate range of motion. No signs secondary infection. Left elbow has a scab on the lateral aspect most proximal part of the forearm. He also has Steri-Strips over what appears to be a skin tear. They are curling up with the ends. There is some mild swelling and maybe some mild decreased range of motion due to discomfort but no overt pain. Painful arc to left shoulder but he states no different than normal but was worse right after the fall. 04/15/2024 3:22 PM 04/23/2024 11:29 AM 2024 11:40 AM 06/03/2024 10:03 AM 07/02/2024 11:30 AM 07/04/2024 1:22 PM 07/10/2024 9:24 AM Vitals BMI 25.52 kg/m2 25.52 kg/m2 24.68 kg/m2 24.68 kg/m2 26.98 kg/m2 26.98 kg/m2 26.98 kg/m2 BSA (m2) 2.04 m2 2.04 m2 1.96 m2 1.96 m2 2.05 m2 2.05 m2 2.05 m2 Systolic 134 Diastolic 80 Heart Rate 70 76 80 SpO2 95 % 98 % 97 % Resp 18 16 Height (in) 5' 11 5' 11 5' 10 5' 10 5' 10 5' 10 5' 10 Weight (lb) 183 183 172 172 188 188 188 Visit Report Report Report Report Report Report Report Allergies Allergen Reactions Erythromycin Nausea And Vomiting Erythromycin Base Nausea Only Levofloxacin Diarrhea Metformin Hcl Other Reaction(s): loose bowels Sulfamethoxazole-Trimethoprim Other Reaction(s): GI upset/diarrhea Sulfa Antibiotics Rash Current Outpatient Medications on File Prior to [...] 1 Lancet before bedtime. Uses One touch [employer] lancet/device. 300 each 3 latanoprost (Xalatan) 0.005 [...] powder Take 17 g by mouth Daily rivaroxaban (Xarelto) 15 MG tablet sodium chloride 0.9 % nebulizer solution Take 3 mL by nebulization if needed timolol (Timoptic) 0.5 % ophthalmic solution Administer 1 drop into both eyes in the morning and 1 drop before bedtime. traMADol (Ultram) 50 MG tablet Take 1 tablet (50 mg) by mouth every 8 (eight) hours if needed for moderate pain for up to 7 days 21 tablet 0 Xarelto Starter Pack 15 & 20 MG tablet therapy pack No current facility-administered medications on file prior to visit. 1. Fall from slip, trip, or stumble, subsequent encounter Acute problem causing the injury This does seem to be more of an accident in that he was using a string tremor and there was a nearby object and he tripped over this and fell onto some landscaping stone. Overall does not appear to have any specific unsteadiness or weakness 2. Acute pain of left shoulder He has chronic left shoulder pain in his previously been told he need shoulder replacement surgery in his chose not to. Seems to be at his baseline. 3. Skin tear of left elbow without complication, subsequent encounter Discussed how to trim up the Steri-Strips. Also discussed scar care for the left elbow and the left knee. Recommended healing cream twice daily until well healed. 4. Abrasion, left knee, subsequent encounter As above 5. Encounter for examination following treatment at hospital [...] transition of care note is reviewed. a jdak-af-zeuh evaluation is done today. Medical decision making is complex in degree. documented in this encounter [facility] 07-17-2024 Evaluation + Plan note Associated Problem(s): Acute deep vein thrombosis (DVT) of left femoral vein ([facility]) First-time unprovoked DVT. He says that he is not active and he sits in 1 position for long hours. But that is his routine. Recommended continue Xarelto for 3 to 6-month compression therapy and follow-up within with D-dimer. [facility] 07-17-2024 Miscellaneous Notes Associated Problem(s): Acute deep vein thrombosis (DVT) of left femoral vein ([facility]) First-time unprovoked DVT. He says that he is not active and he sits in 1 position for long hours. But that is his routine. Recommended continue Xarelto for 3 to 6-month compression therapy and follow-up within with D-dimer. Addended by: DIVINA MAK on: 07/17/2024 10:13 AM Modules accepted: Orders documented in this encounter [facility] 07-17-2024 History of Presen t illness Narrative Images from the original note were not included. To: No primary care provider on file. HPI: Chema Childs Sr. is a 84 y.o. male with First-time [...] mg total) by mouth in the morning. sjxidbofvr-nthaldjy-bnwfwffwvk (BREZTRI AEROSPHERE) 160-9-4.8 mcg/actuation HFA aerosol inhaler [...] Resource Strain: Low Risk (01/03/2024) Received from [facility] Overall Financial Resource Strain (CARDIA) Difficulty of Paying Living Expenses: Not hard at all Food Insecurity: No Food Insecurity (07/17/2024) Hunger Screening Food Insecurity - Worry: Never True Food Insecurity - Inability: Never True Transportation Needs: No Transportation Needs (01/03/2024) Received from [facility] PRAPARE - Transportation Lack of Transportation (Medical): No Lack of Transportation (Non-Medical): No Physical Activity: Insufficiently Active (01/03/2024) Received from [facility] Exercise Vital Sign Days of Exercise per Week: 3 days Minutes of Exercise per Session: 20 min Stress: No Stress Concern Present (01/03/2024) Received from [facility] [employer] - Occupational Stress Questionnaire Feeling of Stress : Not at all Social Connections: Socially Integrated (01/03/2024) Received from [facility] Social Connection and Isolation Panel [NHANES] Frequency of Communication with Friends and Family: More than three times a week Frequency of Social Gatherings with Friends and Family: Three times a week Attends Anabaptism Services: More than 4 times per year Active Member of Clubs or Organizations: Yes Attends Club or Organization Meetings: More than 4 times per year Marital Status: Interpersonal Safety: Unknown (10/25/2022) Received from [facility] Humiliation, Afraid, Rape, and Kick questionnaire Fear of Current or Ex-Partner: Not on file Emotionally Abused: No Physically Abused: Not on file Sexually Abused: Not on file Housing Instability: Low Risk (01/03/2024) Received from [facility] Housing Stability Vital Sign Unable to Pay [...] vein thrombosis (DVT) of left femoral vein ([facility]) - Primary Current Assessment & Plan First-time unprovoked DVT. He says that he is not active and he sits in 1 position for long hours. But that is his routine. Recommended continue Xarelto for 3 to 6-month compression therapy and follow-up within with D-dimer. Chema was seen today for hospital discharge follow up from [facility]. Diagnoses and all orders for this visit: Acute deep vein thrombosis (DVT) of left femoral vein ([facility]) Crystal Mcdermott MD, ZARIA, RPVI, FSVS, FACS [facility] [employer] [facility] This note was created with the assistance of a speech recognition program. While intending to generate a timely document that accurately reflects the content of the visit, no guarantee can be provided that every grammatical or spelling mistake has been or will be identified or corrected. Thank you for your understanding. documented in this encounter [facility] 07-17-2024 Note Addended by: DIVINA MAK on: 07/17/2024 10:13 AM Modules accepted: Orders [facility] 07-07-2024 Miscellaneous Notes Called pts back form phone call 07/07. No answer, I left a voicemail to call back to get scheduled. Pt was seen at and Dr. Mcdermott consulted. Is being sent over to see Baldemar with us as f/u hospital discharge. documented in this encounter [facility] 07-07-2024 Telephone encounter Note Called pts back form phone call Sunday Morning 07/07. No answer, I left a voicemail to call back to get scheduled. Pt was seen at and Dr. Mcdermott consulted. Is being sent over to see Baldemar with us as f/u hospital discharge. [facility] 07-04-2024 History of Presen t illness Narrative [...] and reflux uropathy Peripheral vascular disease, unspecified (CMS/HCC) Primary open angle glaucoma of both eyes, unspecified glaucoma stage PVD (peripheral vascular disease) ([facility]) Stage 3 chronic kidney disease (HCC) ([facility]) Medications: Current Outpatient Medications: albuterol (2.5 MG/3ML) [...] 1 Lancet before bedtime. Uses One touch [employer] lancet/device., Disp: 300 each, Rfl: 3 latanoprost [...] min Stress: No Stress Concern Present (01/03/2024) [employer] - Occupational Stress Questionnaire Feeling of Stress : Not at all Social Connections: Socially Integrated (01/03/2024) Social Connection and Isolation Panel [NHANES] Frequency of Communication with Friends and Family: More than three times a week Frequency of Social Gatherings with Friends and Family: Three times a week Attends Anabaptism Services: More than 4 times per year [...] and negative PT pedal pulses NEURO: 5.07 [employer] monofilament test diminished to digits and forefoot bilaterally 125Hz tuning fork diminished to 1st MPJ bilaterally ORTHO: Positive pain on palpation to toenails of the left 1,2,3,4,5 toes and right 1,2,3,4,5 toes ASSESSMENT 1. Diabetes mellitus due to underlying condition with diabetic polyneuropathy, without long-term current use of insulin ([facility]) 2. Pain due to onychomycosis of toenails [...] gear. Continue with antithrombotics for DVT Urban Sinclair DPM documented in this encounter [facility] 07-02-2024 History of Presen t illness Narrative Images from the original note were not included. Patient ID: Chema Childs is a 84 y.o. male who presents for: Pt states his left ankle is swollen and then he gets pain behind the knee. 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 No injury. No fever chills. No sores. [...] 1 Lancet before bedtime. Uses One [employer] lancet/device. 300 each 3 latanoprost (Xalatan) 0.005 [...] arranged for a stat venous ultrasound at [facility]. - Vascular US lower extremity venous duplex left; Future - Vascular US lower extremity venous duplex left 2. Left leg swelling - Vascular US lower extremity venous duplex left; Future - Vascular US lower extremity venous duplex left As an addendum, [facility] called me back later in the day. The patient indeed had an extensive DVT from the proximal femoral artery down to the lower leg. At that time rather than attempt outpatient treatment without further evaluation I had them take him over to the emergency room. documented in this encounter [facility] 06-10-2024 History of Presen t illness Narrative Received message from pt's , requests Rx for Magnesium. Sending encounter to PCP Prescription sent documented in this encounter [facility] 06-03-2024 History of Presen t illness Narrative [...] 1 Lancet before bedtime. Uses One [employer] lancet/device. 300 each 3 latanoprost (Xalatan) 0.005 [...] with long-term current use of insulin (HCC) ([facility]) - metFORMIN XR (Glucophage-XR) 750 MG 24 hr tablet; Take 1 tablet (750 mg) by mouth in the evening. Take with meals Dispense: 90 tablet; Refill: 1 - Comprehensive metabolic panel; Future - Hemoglobin A1c; Future - Comprehensive metabolic panel - Hemoglobin A1c 7. Type 2 diabetes mellitus with hyperglycemia, with long-term current use of insulin ([facility]) 8. Ex-smoker Continue not smoking 9. Polypharmacy [...] tablet; Refill: 1 documented in this encounter [facility] 04-09-2024 History of Presen t illness Narrative Images from the original note were not included. Patient ID: Chema Childs is a 83 y.o. male who presents for: Hospital F/U see dx in graph Flowsheet Row Patient Outreach from 04/07/2024 in [facility] with Briseida Paez RN Hospital Information ED, Hospital or Custodial Facility Discharge? Hospital Patient has been contacted within two business days of discharge Yes Diagnosis Pneumonia Right upper lobe of lung, Acute hypoxic respiratory failure, Acute exacerbation of COPD, Type 2 DM with Hyperglycemia, HTN Discharge Date 04/06/24 Discharged To: Custodial Facility (specify SNF in comments) [[facility]. Pt left at 8 pm from the [facility] to home] Discharge Hospital [facility] Nursing Facilities [facility] [left [facility] at 8 pm on 04/06 to home] [...] all medications ordered at discharge? No [left [facility]- medications were not received at [facility]] Prescription Comments message sent to PCP for discharge medications and order for Is the patient taking all medications as [...] Planning? No Wrap Up Additional Comments Pt [id number] had Covid prior to going to [facility] ER., pulse ox was 90% on room [...] 1 Lancet before bedtime. Uses One touch [employer] lancet/device. 300 each 3 latanoprost (Xalatan) 0.005 [...] respiratory failure. 2. Acute hypoxic respiratory failure ([facility]) Acute problem since emergency room presentation. Even with oxygen today he is only 92 percent on the pulse ox reading. With any little bit of trying to transfer and walk, example to the bathroom, he becomes short of breath. This does resolve with rest. Continued oxygen therapy. 3. Acute exacerbation of chronic obstructive pulmonary disease (COPD) ([facility]) Patient has known COPD in the pneumonia [...] hyperglycemia, with long-term current use of insulin ([facility]) His blood sugars are high from the steroids and his illness. Continue with his insulin therapy. Monitor closely for hypoglycemia. 5. Benign essential hypertension ([facility]) Chronic problem, stable, continue current treatment. 6. [...] transition of care note is reviewed. a jtkw-xr-ozql evaluation is done today. Medical decision making [...] can mid afternoon. documented in this encounter [facility] 01-03-2024 History of Presen t illness Narrative [...] exacerbation of chronic obstructive pulmonary disease (COPD) ([facility]) (Primary) Acute problem which is recurrent in [...] evaluation and management. documented in this encounter [facility] 12-17-2023 History of Presen t illness [...] Final Glucose, UA 12/17/2023 Negative Negative - 2000(110) ++++ mg/dL Final Bilirubin, UA 12/17/2023 Negative [...] dipstick manually resulted documented in this encounter [facility] 11-12-2023 History of Presen t illness [...] 0.70 - 1.30 mg/dL Final [facility] EGFR-AF MONEGASQUE 05/18/2023 >60 >=60 Final [facility] EGFR-NON AF MONEGASQUE 05/18/2023 59 (L) >=60 Final BUN CREATININE [...] 3. Stage 3a chronic kidney disease (HCC) ([facility]) Labs from earlier in the year reviewed [...] with long-term current use of insulin (HCC) ([facility]) Chronic problem, stable, to goal. I did [...] 90 tablet; Refill: 1 6. Mixed hyperlipidemia ([facility]) - atorvastatin (Lipitor) 20 MG tablet; Take [...] management. 9. Chronic respiratory failure with hypoxia ([facility]) Chronic problem, stable Upon further questioning with [...] hearing was improved. documented in this encounter [facility] 01-31-2023 Evaluation note Encounter Date Diagnosis [...] were answered he understands agrees the plan. [facility] 02-16-2023 NoteEXAMINATION: XR CHEST 2 V [...] Electronically authenticated by: ULISSES FRANCO Date: 2022-04-06 08:00[facility]02-09-2023 History of Present illness Narrative* Horace Parra DO - 03/30/2022 10:13 AM EST Images from the original note were not included. EMERGENCY TRIAGE, TREAT AND TRANSPORT (ET3) DOCUMENTATION OF TELEHEALTH VISIT Date / Time: 03/27/2022 / 0 Name: Chema Childs : 1940 SSN: (Not on file) EMS Agency: [facility] [x] Verbal consent obtained [] [...] by: Horace Parra DO documented in this [id number] Evaluation note* Encounter Date Diagnosis Assessment Notes [...] with this plan, and denies any questions. [facility] 10-05-2022 Hospital Discharge instructions Patient Education [...] prostate. Follow these instructions at home: Take lyzh-mml-hawfgwh and prescription medicines only as told by [...] 02/02/2001 Document Revised: 04/20/2018 Document Reviewed: 10/26/2016 [employer] Patient Education [employer]. Follow Up Care 11/01/2021 10:45:28 With:KONG PEPE PA-C, URL Address: [address] [place] [id number] When:3 months [facility] 06-28-2022 Evaluation note* Encounter Date Diagnosis Assessment Notes Treatment Notes Treatment Clinical Notes Jul, Abdominal aortic aneurysm (AAA) 3.0 cm to 5.5 cm in diameter in male (ICD-10 - I71.4) Jul, Other Aortic ulcer wi th small aneurysm Review of the images today gxeriwt-xwpb-iac ulcer of the infrarenal aorta that does [...] understand and all the questions were answered. [facility] Other Evaluation + Plan note Future Appointments Appointment Date:02/22/2022 01:20:00 PM Scheduled Provider:KONG PEPE PA-C Location:[facility] Appointment Type:URO Office Visit [facility] Evaluation noteNo assessment information available [facility] Work Phone: Evaluation note* Diagnosis BPH with obstruction/lower urinary tract symptoms Hypertrophy of prostate with urinary obstruction and other lower urinary tract symptoms (LUTS) Dysuria [facility] Work Phone: evaluation note* Diagnosis Fall, initial encounter- Primary Shortness of breath Tachycardia Tachycardia, unspecified [facility] Diagnosis Dysuria Frequency of micturition Urinary frequency [facility] Diagnosis Type 2 diabetes mellitus with stage 3a chronic kidney disease, with long-term current use of insulin (HCC) ([facility]) documented in this encounter [facility]* Diagnosis Acute right-sided low back pain without sciatica documented in this encounter [facility]* Diagnosis Type 2 diabetes mellitus with stage 3a chronic kidney disease, with long-term current use of insulin (HCC) (CMS/HCC)- Primary Gastroesophageal reflux disease without esophagitis Esophageal reflux Acquired hypothyroidism ([facility]) Unspecified hypothyroidism documented in this encounter [facility]* Diagnosis Acute exacerbation of chronic obstructive pulmonary disease (COPD) (CMS/HCC)- Primary Obstructive chronic bronchitis with exacerbation Interstitial lung disease (CMS/HCC) Postinflammatory pulmonary fibrosis Panlobular emphysema (CMS/HCC) Other emphysema Polypharmacy Issue of repeat prescriptions documented in this encounter [facility]* Diagnosis Benign essential hypertension (CMS/HCC) [...] Atherosclerosis of aorta documented in this encounter [facility]* Diagnosis Pneumonia of right lower lobe due to infectious organism- Primary Acute hypoxic respiratory failure ([facility]) Acute exacerbation of chronic obstructive pulmonary disease (COPD) ([facility]) Obstructive chronic bronchitis with exacerbation Type 2 diabetes mellitus with hyperglycemia, with long-term current use of insulin ([facility]) Benign essential hypertension ([facility]) Essential hypertension, benign Encounter for examination following treatment at hospital Thrush Candidiasis of mouth Noncompliance by declining service Overweight documented in this encounter [facility] HealthcareEvaluation note* Diagnosis Benign essential hypertension ([facility]) Essential hypertension, benign Hypertensive nephropathy ([facility]) Unspecified hypertensive kidney disease with chronic kidney disease stage I through stage IV, or unspecified Stage 3a chronic kidney disease (HCC) ([facility]) Microalbuminuria Proteinuria Mixed hyperlipidemia ([facility]) Mixed hyperlipidemia Type 2 diabetes mellitus with stage 3a chronic kidney disease, with long-term current use of insulin (HCC) ([facility]) Type 2 diabetes mellitus with hyperglycemia, with long-term current use of insulin ([facility]) Ex-smoker Personal history of tobacco use, presenting hazards to health Polypharmacy Issue of repeat prescriptions Hyperuricemia Other abnormal blood chemistry documented in this encounter [facility] HealthcareEvaluation note* Diagnosis Hypernatremia- Primary Hyperosmolality and/or hypernatremia Hypertensive nephropathy ([facility]) Unspecified hypertensive kidney disease with chronic kidney disease stage I through stage IV, or unspecified documented in [facility] encounter [facility]* Diagnosis Diabetes mellitus due to underlying condition with diabetic polyneuropathy, without long-term current use of insulin ([facility])- Primary Pain due to onychomycosis of toenails of both feet Contusion of left foot, initial encounter documented in this encounter [facility]* Diagnosis Acute leg pain, left Left leg swelling documented in this encounter [facility]* Diagnosis Acute deep vein thrombosis (DVT) of left femoral vein ([facility])- Primary [facility] Diagnosis Fall from slip, trip, or stumble, subsequent encounter Acute pain of left shoulder Skin tear of left elbow without complication, subsequent encounter Abrasion, left knee, subsequent encounter Encounter for examination following treatment at hospital documented in this encounter [facility]* Diagnosis Injury of right hand, initial encounter documented in this encounter [facility]* Diagnosis Diabetes mellitus due to underlying condition with diabetic polyneuropathy, without long-term current use of insulin (HCC)- Primary Pain due to onychomycosis of toenails of both feet documented in this encounter [facility]* Diagnosis Traumatic ecchymosis of lower back, initial encounter- Primary Fall in home, initial encounter Mixed simple and mucopurulent chronic bronchitis (HCC) Other chronic bronchitis Panlobular emphysema (HCC) Other emphysema documented in this encounter [facility] Narrative - Reported* Type Description Date Medical History high cholestrol Medical History high blood pressure Medical History acid reflux Surgical History hemorrhoidectomy Hospitalization History acid reflux - observatio n [facility] Other History general Narrative - Reported* Type Description Date Medical History high cholestrol Medical History high blood pressure Medical History acid reflux Surgical History hemorrhoidectomy Surgical History Laser Surgery on prostate Hospitalization History acid reflux - observatio n [facility] Other History of Present illness Narrative* Urban Sinclair, AMBROSE - 09/12/2024 1:30 PM EDT Patient: Chema Childs : 1940 PCP: Clayton [...] Patient is DM2 with peripheral neuropathy Patient had recent DVT and on blood thinner to left leg Allergies: Allergies Allergen Reactions Erythromycin Nausea And Vomiting Erythromycin Base Nausea Only Levofloxacin Diarrhea Metformin Hcl Other Reaction(s): loose bowels Sulfamethoxazole-Trimethoprim Other Reaction(s): GI upset/diarrhea Sulfa Antibiotics Rash Past Medical History: Past Medical History: Diagnosis Date Acid reflux Age-related nuclear cataract, bilateral Chest pain Chronic kidney disease, stage III (moderate) (CMS-HCC) COPD (chronic obstructive pulmonary disease) ([facility]) COVID-19 09/2020 and kidney injury with head laceration, 2 days [facility] Deep vein thrombosis (HCC) 07/02/2024 Diabetes mellitus (HCC) Esophageal reflux Glaucoma on drops Glucose intolerance (impaired glucose tolerance) Gout, unspecified Hypercalcemia Hyperlipidemia Other and unspecified Hypertension, benign Hypertrophy of prostate (benign) of prostate without urinary obstruction and other lower urinary tract symptoms [LUTS] 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 KAHN (nonalcoholic steatohepatitis) 2020 Non-alcoholic fatty liver disease Other obstructive and reflux uropathy Peripheral vascular disease, unspecified Primary open angle glaucoma of both eyes, unspecified glaucoma stage PVD (peripheral vascular disease) Stage 3 chronic kidney disease ([facility]) Medications: Current Outpatient Medications: albuterol (2.5 MG/3ML) 0.083% nebulizer solution, Take 2.5 mg by nebulization every 8 (eight) hoursif needed for wheezing, Disp: , Rfl: albuterol HFA 90 mcg/act inhaler, Inhale 2 puffs every 6 (six) hours if needed for wheezing or shortness of breath, Disp: , Rfl: allopurinol (Zyloprim) 100 MG tablet, Take 1 tablet (100 mg) by mouth Daily, Disp: 90 tablet, Rfl: 1 atorvastatin (Lipitor) 20 MG tablet, Take 1 [...] 1 each in the evening and 1 eachbefore bedtime. Use as instructed. Sliding scale to titrate blood sugars One touch Ultra Blue DX: E11.22, N18.31, Z79.4., Disp: 270 each, Rfl: 1 guaiFENesin (Mucinex) 600 MG 12 hr tablet, Take 600 mg by mouth Daily Do not crush, chew, or split., Disp: , Rfl: insulin aspart, with niacinamide, (Fiasp FlexTouch) 100 [...] 1 Lancet before bedtime. Uses One touch [employer] lancet/device., Disp: 300 each, Rfl: 3 latanoprost [...] mg) by mouth in the morning. Take beforemeals., Disp: 90 capsule, Rfl: 1 polyethylene glycol, PEG, 3350 (Glycolax) 17 GM/SCOOP powder, Take 17 g by mouth Daily, Disp: , Rfl: sodium chloride 0.9 % nebulizer solution, Take 3 mL by nebulization if needed, Disp: , Rfl: timolol (Timoptic) 0.5 % ophthalmic solution, Administer 1 drop into both eyes in the morning and 1drop before bedtime., Disp: , Rfl: Xarelto 20 MG tablet, Take 20 mg by mouth in the morning., Disp: , Rfl: Social History: Social History [...] date: 02/20/1964 Quit date: 01/08/1995 Years since quittin.6 Smokeless tobacco: Never Tobacco comments: Stop smoking: >30 years. Last smoked: >10 years Vaping Use Vaping status: Never Used Substance and Sexual Activity Alcohol use: Not Currently Comment: Caffeine intake: 1-2 cups per day Drug use: Never Sexual activity: Not Currently Partners: Female control/protection: Abstinence, None Other Topics Concern Not on file Social History Narrative Exercise: 3-4 times per week, for 30-60 mins/day Housing: municipal water with filter, gas heat Social Drivers of Health Financial Resource Strain: Low Risk (01/03/2024) Overall Financial Resource Strain (CARDIA) Difficulty of Paying Living Expenses: Not hard at all Food Insecurity: No Food Insecurity (07/17/2024) Hunger Screening Within the past 12 months we worried whether our food would run out before we got money to buy more.: Never True Within the past 12 months the food we bought just didn't last and we didn't have money to get more.: Never True Transportation Needs: No Transportation Needs (01/03/2024) PRAPARE - Transportation Lack of Transportation (Medical): No Lack of Transportation (Non-Medical): No Physical Activity: Insufficiently Active (01/03/2024) Exercise Vital Sign Days of Exercise per Week: 3 days Minutes of Exercise per Session: 20 min Stress: No Stress Concern Present (01/03/2024) [employer] - Occupational Stress Questionnaire Feeling of Stress : Not at all Social Connections: Socially Integrated (01/03/2024) Social Connection and Isolation Panel [NHANES] Frequency of Communication with Friends and Family: More than three times a week Frequency of Social Gatherings with Friends and Family: Three times a week Attends Anabaptism Services: More than 4 times per year [...] and negative PT pedal pulses NEURO: 5.07 [employer] Rub[employer] monofilament test diminished to digits and forefoot bilaterally 125Hz tuning fork diminished to 1st MPJ bilaterally ORTHO: Positive pain on palpation to toenails of the left 1,2,3,4,5 toes and right 1,2,3,4,5 toes ASSESSMENT 1. Diabetes mellitus due to underlying condition with diabetic polyneuropathy, without long-term current use of insulin (HCC) 2. Pain due to onychomycosis of toenails of both feet PLAN Discussed proper foot care with patient today. Debride nails in length and thickness digits 1 through 10 Patient educated today on proper diabetic foot care including monitoring feet daily for any signs of infection openings in the skin or irregularities to both feet. Patient had a diabetic neurologicalexam today to both their feet and discussed proper shoe gear. Continue with antithrombotics for DVT Urban Sinclair DPM documented in this [facility] Narrative No data available for this section [facility] InstructionsNot on filedocumented in this encounter [facility] [employer] SystemInstructionsNot on filedocumented in this encounter [facility] SystemProgress note No data available for this section [facility] Summary Purpose Family History No Family History Records FoundNo Family History Records FoundNo Family History Records FoundNo Family History Records FoundNo Family History Records FoundNo Family History Records FoundNo Family History Records FoundNo Family History Records Found Advance Directives Advance Directive Response Recorded Date/ Time Advance Directives No May 29, 019 12:03pm Documents on File Type Date Recorded Patient Video Network Engineer Expl anation Power of Manager Employment 04/09/2024 3:45 PM 05-23 Power Of Manager Employment Advance Directives and Living Will 04/09/2024 3:38 [...] section and content) DATE CREATED AUTHOR 08/12/2021 [facility] Specialist DATE CREATED AUTHOR AUTHOR'S ORGANIZ ATION 03/15/2022 [facility] DATE CREATED AUTHOR AUTHOR'S ORGANIZ ATION 07/01/2022 [facility] DATE CREATED AUTHOR AUTHOR'S ORGANIZ ATION 07/04/2022 [facility] DATE CREATED AUTHOR AUTHOR'S ORGANIZ ATION 12/02/2022 [facility] DATE CREATED AUTHOR AUTHOR'S ORGANIZ ATION 02/24/2023 [facility] DATE CREATED AUTHOR AUTHOR'S ORGANIZ ATION 07/19/2024 [facility] DATE CREATED AUTHOR AUTHOR'S ORGANIZ ATION 09/24/2024 [facility] dical Specialists EPIC REASON FOR VISIT (unrecogniz ed section and content) Reason Comments Fall Reason Comments Med Change Request Reason Comments Hip Pain Reason Comments URI Reason Comments Follow-up Reason Comments Hypertension Hyperlipidemia Diabetes Reason Comments DM Foot Care Dm nail care Reason Comments Edema Reason Comments hospital discharge follow up from [facility] Reason Comments Hand Injury Reason Comments DM Foot Care Patient Care team informatio n (unrecognized section [...] Oumar Haynes MD Attending Provider Active Supervisor Forming And Tempering Relationship Specialty Start Date End Date Clayton Mcfadden MD [address] [place] [address] PCP - General 03/01/22 Supervisor Forming And Tempering Relationship Specialty Start Date End Date Clayton Mcfadden MD [address] [place] [address] PCP - General 03/01/22 Supervisor Forming And Tempering Relationship Specialty Start Date End Date Clayton Mcfadden MD [address] [place] [address] (Fax) PCP - ACO Reach 07/13/22 Clayton Mcfadden MD [address] [place] [address] PCP - General Family Medicine 08/03/22 Briseida Paez, PATRIC Registered Nurse Family Medicine 03/16/23 Supervisor Forming And Tempering Relationship Specialty Start Date End Date Clayton Mcfadden MD [address] [address] (Fax) PCP - ACO Reach 07/13/22 Clayton Mcfadden MD [address] [address] PCP - General Family Medicine 08/03/22 Briseida Paez, RN Registered Nurse Family Medicine 03/16/23 Supervisor Forming And Tempering Relationship Specialty Start Date End Date Clayton Mcfadden MD [address] [place] [address] (Fax) PCP - ACO Reach 07/13/22 Clayton Mcfadden MD [address] [place] [address] (Fax) PCP - General Family Medicine 08/03/22 Briseida Paez, PATRIC Registered Nurse Family Medicine 03/16/23 Supervisor Forming And Tempering Relationship Specialty Start Date End Date Clayton Mcfadden MD [address] [place] [address] (Fax) PCP - ACO Reach 07/13/22 Clayton Mcfadden MD [address] [place] [address] (Fax) PCP - General Family Medicine 08/03/22 Briseida Paez, PATRIC Registered Nurse Family Medicine 03/16/23 Supervisor Forming And Tempering Relationship Specialty Start Date End Date Clayton Mcfadden MD [address] [place] [address] (Fax) PCP - ACO Reach 07/13/22 Clayton Mcfadden MD [address] [place] [address] PCP - General Family Medicine 08/03/22 Briseida Paez, PATRIC Registered Nurse Family Medicine 03/16/23 Supervisor Forming And Tempering Relationship Specialty Start Date End Date Clayton Mcfadden MD [address] [place] [address] (Fax) PCP - ACO Reach 07/13/22 Clayton Mcfadden MD [address] [place] [id number] PCP - General Family Medicine 08/03/22 Briseida Paez RN Registered Nurse Family Medicine 03/16/23 Supervisor Forming And Tempering Relationship Specialty Start Date End Date Clayton Mcfadden MD [address] [place] [address] (Fax) PCP - ACO Reach 07/13/22 Briseida Paez RN Registered Nurse Family Medicine 03/16/23 Supervisor Forming And Tempering Relationship Specialty Start Date End Date Clayton Mcfadden MD [address] [place] [address] (Fax) PCP - ACO Reach 07/13/22 Briseida Paez RN Registered Nurse Family Medicine 03/16/23 Supervisor Forming And Tempering Relationship Specialty Start Date End Date Clayton Mcfadden MD [address] [place] [address] (Fax) PCP - ACO Reach 07/13/22 Briseida Paez RN Registered Nurse Family Medicine 03/16/23 Supervisor Forming And Tempering Relationship Specialty Start Date End Date Clayton Mcfadden MD [address] [place] [address] (Fax) PCP - ACO Reach 07/13/22 Briseida Paez RN Registered Nurse Family Medicine 03/16/23 Supervisor Forming And Tempering Relationship Specialty Start Date End Date Clayton Mcfadden MD [address] [place] [address] (Fax) PCP - ACO Reach 07/13/22 Clayton Mcfadden MD [address] [place] [address] (Fax) PCP - General Family Medicine 04/14/24 Briseida Paez, RN Registered Nurse Family Medicine 03/16/23 Supervisor Forming And Tempering Relationship Specialty Start Date End Date Clayton Mcfadden MD [address] [place] [address] (Fax) PCP - ACO Reach 07/13/22 Clayton Mcfadden MD [address] [place] [address] (Fax) PCP - General Family Medicine 04/14/24 Briseida Paez, RN Registered Nurse Family Medicine 03/16/23 Supervisor Forming And Tempering Relationship Specialty Start Date End Date Clayton Mcfadden MD [address] [place] [address] (Fax) PCP - ACO Reach 07/13/22 Clayton Mcfadden MD [address] [place] [address] (Fax) PCP - General Family Medicine 04/14/24 Briseida Paez, RN Registered Nurse Family Medicine 03/16/23 Supervisor Forming And Tempering Relationship Specialty Start Date End Date Clayton Mcfadden MD [address] [place] [address] (Fax) PCP - ACO Reach 07/13/22 Clayton Mcfdaden MD [address] [place] [address] (Fax) PCP - General Family Medicine 04/14/24 Briseida Paez, RN Registered Nurse Family Medicine 03/16/23 Supervisor Forming And Tempering Relationship Specialty Start Date End Date Clayton Mcfadden MD [address] [place] [address] (Fax) PCP - ACO Reach 07/13/22 Clayton Mcfadden MD [address] [place] [address] (Fax) PCP - General Family Medicine 04/14/24 Briseida Paez RN Registered Nurse Family Medicine 03/16/23 Supervisor Forming And Tempering Relationship Specialty Start Date End Date Clayton Mcfadden MD [address] [place] [address] (Fax) PCP - ACO Reach 07/13/22 Calyton Mcfadden MD [address] [place] [address] (Fax) PCP - General Family Medicine 04/14/24 Briseida Paez RN Registered Nurse Family Medicine 03/16/23 Supervisor Forming And Tempering Relationship Specialty Start Date End Date Clayton Mcfadden MD [address] [place] [address] (Fax) PCP - ACO Reach 07/13/22 Clayton Mcfadden MD [address] [place] [address] (Fax) PCP - General Family Medicine 04/14/24 Briseida Paez, PATRIC Registered Nurse Family Medicine 03/16/23 Supervisor Forming And Tempering Relationship Specialty Start Date End Date Clayton Mcfadden MD [address] [place] [address] (Fax) PCP - ACO Reach 07/13/22 Clayton Mcfadden MD [address] [place] [address] (Fax) PCP - General Family Medicine 04/14/24 Briseida Paez, PATRIC [address] [place] [address] Registered Nurse Family Medicine 03/16/23 Supervisor Forming And Tempering Relationship Specialty Start Date End Date Clayton Mcfadden MD [address] [place] [address] (Fax) PCP - ACO Reach 07/13/22 Clayton Mcfadden MD [address] [place] [address] (Fax) PCP - General Family Medicine 04/14/24 Briseida Paez RN [address] [place] [address] Registered Nurse Family Medicine 03/16/23 Supervisor Forming And Tempering Relationship Specialty Start Date End Date Clayton Mcfadden MD [address] [place] [address] (Fax) PCP - ACO Reach 07/13/22 Clayton Mcfadden MD [address] [place] [address] (Fax) PCP - General Family Medicine 04/14/24 Briseida Paez RN [address] [place] [address] Registered Nurse Family Medicine 03/16/23 Supervisor Forming And Tempering Relationship Specialty Start Date End Date Clayton Mcfadden MD [address] [place] [address] (Fax) PCP - ACO Reach 07/13/22 Clayton Mcfadden MD [address] [place] [address] (Fax) PCP - General Family Medicine 04/14/24 Briseida Paez RN [address] [place] [address] Registered Nurse Family Medicine 03/16/23 Supervisor Forming And Tempering Relationship Specialty Start Date End Date Clayton Mcfadden MD [address] [place] [address] (Fax) PCP - ACO Reach 07/13/22 Clayton Mcfadden MD [address] [place] [address] (Fax) PCP - General Family Medicine 04/14/24 Briseida Paez RN [address] [place] [address] Registered Nurse Family Medicine 03/16/23 Supervisor Forming And Tempering Relationship Specialty Start Date End Date Clayton Mcfadden MD [address] [place] [address] (Fax) PCP - ACO Reach 07/13/22 Clayton Mcfadden MD [address] [place] [address] (Fax) PCP - General Family Medicine 04/14/24 Briseida Paez RN [address] [place] [address] Registered Nurse Family Medicine 03/16/23 Supervisor Forming And Tempering Relationship Specialty Start Date End Date Clayton Mcfadden MD [address] [place] [address] PCP - ACO Reach 07/13/22 Clayton Mcfadden MD [address] [place] [address] PCP - General Family Medicine 04/14/24 Briseida Paez, RN [address] [place] [address] Registered Nurse Family Medicine 03/16/23 Goals (unrecognized [...] BE BASED ON THE PRIMARY CLINICAL RECORDS. [facility] [employer] [facility]. provides no warranty or guarantee of the accuracy or completeness of information in this document.
[2024-10-21 12:14] LABS: Microalbum Creatinine Ratio Ur 134.9 mg/g (0.0-29.9)
[2024-10-21 12:36] LABS: Alanine Aminotransferase 27 U/L (16-63); Albumin Globulin Ratio 0.8; Albumin Level 3.3 g/dL (3.4-5.0); Alkaline Phosphatase 89 U/L (46-116); Anion Gap 13.3; Aspartate Amino Transferase 19 U/L (15-37); Blood Urea Nitrogen 23.0 mg/dL (7.0-18.0); Calcium 9.3 mg/dL (8.5-10.1); Carbon Dioxide 26.2 mmol/L (21.0-32.0); Chloride 106 mmol/L (98-107); Cholesterol 146 mg/dL (<=200); Estimated GFR (African America >60 (>=60 mL/min/1.73m^2); Estimated GFR (Non-African Ame >60 (>=60 mL/min/1.73m^2); Globulin 4.2 g/dL; Glucose 163 mg/dL (74-106); HDL Cholesterol 51 mg/dL (40-60); Potassium 4.5 mmol/L (3.5-5.1); Sodium 141 mmol/L (136-145); Thyroid Stimulating Hormone 0.559 uIU/mL (0.358-3.740); Total Protein 7.5 g/dL (6.4-8.2); Triglycerides 87 mg/dL (<=150); Uric Acid 5.1 mg/dL (3.5-7.2); VLDL CHOLESTEROL 17.4 mg/dL
== END 2024-10-21 11:32 | disposition home or self-care (01) ==
LOC: LAB 11:33
PROVIDERS: PCP Family Medicine; Visit Provider Family Medicine
DX: I12.9 Hypertensive chronic kidney disease with stage 1 through stage 4 chronic kidney disease, or unspecified chronic kidney disease (principal); N18.31 Chronic kidney disease, stage 3a; E11.22 Type 2 diabetes mellitus with diabetic chronic kidney disease; Z79.4 Long term (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 of insulin; E11.65 Type 2 diabetes mellitus with hyperglycemia; E78.2 Mixed hyperlipidemia; R80.9 Proteinuria, unspecified; E03.9 Hypothyroidism, unspecified; R53.82 Chronic fatigue, unspecified; E79.0 Hyperuricemia without signs of inflammatory arthritis and tophaceous disease
CPT/HCPCS: 36415; 80053; 80061; 82043; 82570; 83036; 84439; 84443; 84480; 84550

== ENCOUNTER 2025-02-03 10:11 | Outpatient (OUT) | payer MEDICARE, SELFPAY ==
--- OUTSIDE RECORDS SUMMARY | 2025-01-27 11:00 | XMS_ITS | Encounter Summary ---
Author Organization [facility] 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 Role Phone Clayton Allred MD Primary Care Provider + [phone] Reason for Referral * Other (Routine) - OpenSpecialtyDiagnoses / ProceduresReferred By Contact Referred To [facility] Diagnoses FANNIE (obstructive sleep apnea) Central sleep apnea Procedures Sleep Study with PAP Titration Michael Whitfield DO [facility] [facility] [address] [place] [address] Phone: tel: fax: Referral IDStatusReasonStart DateExpiration DateVisits RequestedVisits [id number]/9/202512/9/202611 Reason for Visit * ReasonCommentsFollow-upPatient presents for a follow up for COPD/FANNIE. Patient wears a PAP at and denies any complaints.DME:Lb. Patient complains of SOB & Cough. Patient is using Breztri and Nebulizer daily with benefit. Patient denies tobacco use. Patient states he has good and bad days with his breathing. Patient is scheduled for a EGD on 02/04/2025 at [facility]. Encounter Details DateTypeDepartmentCare Team (Latest Contact Info)Gwwlhqtbbas04/09/2025 11:00 AM ESTOffice Visit [facility] [address], [address] [place] [address] Michael Whitfield DO [address] [facility] [place] [address] Centrilobular emphysema (Primary Dx); FANNIE (obstructive sleep apnea); Central sleep apnea; Idiopathic sleep related nonobstructive alveolar hypoventilation; History of tobacco abuse; [facility] (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 of inhaled steroids Social History Tobacco UseTypesPacks/DayYears UsedDateSmoking Tobacco: [id number] - 1994Smokeless Tobacco: NeverAlcohol UseStandard Drinks/WeekCommentsNever0 (1 standard drink = 0.6 oz pure alcohol)AUDIT-CAnswerDate RecordedFrequency of Alcohol ConsumptionNot on file01/20/2025Q2: How many drinks containing alcohol do you have on a typical day when you are drinking?Patient does not drink 01/20/2025Q3: How often do you have six or more drinks on one occasion?Never 01/20/2025Interpersonal Safety Domain Source: IP Abuse ScreeningAnswerDate RecordedRead-Only, Retired: Physical KnwryMqdfhg58/15/2023Read-Only, Retired: Verbal EbmgcOjsxmy66/15/2023Read-Only, Retired: Emotional ppmlyQdaxdk49/15/2023 Read-Only, Retired: Financial GycwtXysbsi43/15/2023Read-Only, Retired: Sexual wzfrqMrbrbb36/15/2023Sex and Gender InformationValueDate RecordedSex Assigned at BirthNot on fileLegal FvrHpie3104/18/2021 11:41 PM ESTGender IdentityNot on file Sexual OrientationNot on filedocumented as of this encounter Last Filed Vital Signs Vital SignReadingTime TakenCommentsBlood Ajmndmrb492/80103/30/2024 10:47 AM EST Wrbqm438501/27/2025 10:47 AM CAUNbckdpisrso20.9 ??C (96.6 ??F)01/27/2025 10:47 AM ESTRespiratory Qpah409803/30/2024 10:47 AM ESTOxygen Ttarfpjytw50%01/27/2025 10:47 AM ESTon room airInhaled Oxygen Concentration--Wdmvrl98.9 kg (185 lb)01/27/2025 10:47 AM ESTPatient PxvjckhdGkccdf275.3 cm (5' 11 )01/27/2025 10:47 AM ESTBody Mass Index25.8103/30/2024 10:47 AM ESTdocumented in this encounter Patient Instructions * Patient Instructions* Michael Whitfield DO - 01/27/2025 11:23 AM EST Get new sleep study titration scheduled. Continue Breztri 2 puffs twice daily, rinse after use. Use albuterol as needed. documented in this encounter Progress Notes * Michael Whitfield DO - 01/27/2025 10:59 AM EST Images from the original note were not included. Date of encounter: 01/27/25 Jovon Childs 1940 (84 y.o.) [address] [place] [address] Jovon Naz was seen today in the office by me. Below is my assessment and plan of the patient: Assessment & Plan Centrilobular emphysema Exacerbations: 09/2023, 02/2024, 03/2024 (COVID, secondary pneumonia), 08/2024 Doing better at this time. Remains on Breztri. Will need to look into additional therapy if anotherexacerbation ([place]uvayre?). Continues to use saline nebs to help with congestion. A krmg-xm-xcwn encounter was performed with the patient today in order to document continued need for a nebulizer with nebulized medications. He requires a nebulizer for the following reason: -The particular medication required to treat this condition, sodium chloride ( saline ) is available only by nebulized administration. This documentation authorizes the renewal, reorder/refill, and replacement of the nebulizer and allassociated supplies. Orders: Vqurdle-Cazucpjpeab-Vezbenupbx (BREZTRI AEROSPHERE) 160-9-4.8 MCG/ACT AERO; Inhale 2 puffs into thelungs 2 times daily Rinse after use albuterol sulfate HFA (PROVENTIL;VENTOLIN;PROAIR) 108 (90 Base) MCG/ACT inhaler; Inhale 2 puffs into the lungs every 4 hours as needed for Wheezing albuterol (PROVENTIL) (2.5 MG/3ML) 0.083% nebulizer solution; Take 3 mLs by nebulization 4 times daily FANNIE (obstructive sleep apnea) A supq-ke-skco encounter was performed with the patient today in order to document continued need for positive airway pressure (PAP). -Current DME: [facility] -Sleep study: PSG on 01/02/2024 with AHI 33 (3% Medicare) & 20.7 (4% Medicare) -Most recent titration: PAP titration 02/04/2024, titrated to CPAP @ [id number] -Compliance was reviewed from 12/27/2024 to 01/25/2025 -Total days used: 30/30 (100%) days -Total days of use >4 hours: 29/30 (97%) days with median use of 8 hours 11 minutes -Current model: AirSense 11 AutoSet -Current mode: CPAP @ [id number] -Residual AHI: 13.8 -Central apneas: 8.3 -Obstructive apneas: 0.2 -Median air leak: 7L/min -Mask/harness fitting: Feels strap is digging into back of head -Sleep quality with PAP: Better quality sleep with use -Residual daytime hypersomnolence: Decreased with use, but still remains sleepy ([place] = 9) -Recommendations: He has excellent compliance, but AHI still elevated. Further review revealed development of central sleep apneic episodes, up to AHI 8.3 CSA... Suspect patient is developing complexsleep apnea from CPAP. I explained this to the patient. He needs a new titration study with Adaptive Servo Ventilation (ASV) to manage the central events. The er medical technician may also be able to help troubleshoot mask fitting and provide some advice. Will have patient return in 2 months to monitorclosely. -This documentation authorizes that the patient's DME may request to renew, reorder, and/or replacetubing, mask, filter, any other associated supplies, and the PAP device (if applicable). Orders: Sleep Study with PAP Titration Central sleep apnea As above. Patient has developed central apneas associated with CPAP use - complex sleep apnea... Ordering PAP titration with ASV; BiPAP will be insufficient for this because he would require back-up rate. Orders: Sleep Study with PAP Titration Idiopathic sleep related nonobstructive alveolar hypoventilation Hypoxic episodes resolved with PAP use. Did not require supplemental O2 bleed-in. History of tobacco abuse The patient was evaluated for low-dose CT (LDCT) for lung cancer screening. Current Medicare-accepted eligibility criteria were reviewed. - Age 50-77 years: Patient's age = 84 y.o. 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 Planned follow-up: Return in about 2 months (around 03/30/2025) for FANNIE/CSA, COPD. Data: Alpha-1 Antitrypsin: Screening Date: 09/11/2023. Genotype: MM PFT: 07/03/2022 -FEV1/FVC: 52% -FEV1: 57% -FVC: 78% -XRG93-87%: 33% -Bronchodilator response: None -RV: 141% -T% -DLCO: 47% -Flow-volume loop: Moderate obstruction 09/20/2018 -FEV1/FVC: 51% -FEV1: 54% -FVC: 75% -THR70-56%: 30% -Bronchodilator response: None -RV: 160% -T% -DLCO: 53% -Flow-volume loop: Moderate obstruction 01/27/2025 10:55 AM Sleep Medicine Sitting and reading 3 Watching TV 3 Sitting, inactive in a public place (e.g. a theatre or a meeting) 0 As a passenger in a car for an hour without a break 0 Lying down to rest in the afternoon when circumstances permit 3 Sitting and talking to someone 0 Sitting quietly after a lunch without alcohol 0 In a car, while stopped for a few minutes in traffic 0 [place] Sleepiness Score 9 Subjective: Jovon Childs was previously established with me at [facility] and is now establishing with me at [facility]. He was last seen by me on 09/03/2024. His records from [facility] were reviewed, with pertinent data extracted from those records and then entered by me into his Epic chart. He states his breathing is doing okay at this time. He remains on Breztri and reports no exacerbations since last visit. He still has dyspnea on exertion and dyspnea. He supplements Breztri with nebulizer. Reviewed his CPAP. He feels it is helping him at night, but continues to have a leak. He said the strap in the back of his head feels like it is digging into his head. He does not think he has the straps super tight. He has excellent compliance, but he continues to have apneic events (AHI 13.8). He does not have any complaints about the pressure. Reviewed his compliance data further: he has developed a fair amount of central sleep apneic events (AHI 8.3). HPI Follow-up Additional comments: Patient presents for a follow up for COPD/FANNIE. Patient wears a PAP at and denies any complaints. DME:Lb. Patient complains of SOB & Cough. Patient is using Breztri and Nebulizer daily with benefit. Patient denies tobacco use. Patient states he has good and bad days with his breathing. Patient is scheduled for a EGD on 02/04/2025 at [facility]. Last edited by Archie Bronson MA on 01/27/2025 10:55 AM. Review of systems: Review of Systems Constitutional: Negative for appetite change, chills, diaphoresis, fatigue and fever. HENT: Negative for sore throat and voice change. Respiratory: Positive for cough and shortness of breath. Negative for chest tightness and wheezing. Cardiovascular: Negative for chest pain. Psychiatric/Behavioral: Positive for sleep disturbance. Exam: BP 130/80 (BP Site: Left Upper Arm, Patient Position: Sitting, BP Cuff Size: Large Adult) Pulse 64 Temp (!) 96.6 ??F (35.9 ??C) (Infrared) Resp 18 Ht 1.803 m (5' 11 ) Wt 83.9 kg (185 lb) Comment: Patient Reported SpO2 98% Comment: on room air BMI 25.80 kg/m?? Physical Exam Constitutional: Appearance: Normal appearance. HENT: Mouth/Throat: Mouth: Mucous membranes are moist. Pharynx: Oropharynx is clear. Comments: Mallampati II. No oral candidiasis. Cardiovascular: Rate and Rhythm: Normal rate and regular rhythm. Pulmonary: Comments: Increased A-P diameter. Unlabored breathing. Breath sounds are diminished but clear to auscultation today - no wheezes, crackles, or rhonchi. Neurological: General: No focal deficit present. Mental Status: He is alert and oriented to person, place, and time. Psychiatric: Mood and Affect: Mood normal. Behavior: Behavior normal. Medical history: Past Medical History: Diagnosis Date BPH (benign prostatic hyperplasia) Centrilobular emphysema Chronic respiratory failure with hypoxia DM2 (diabetes mellitus, type 2) History of COVID-19 History of tobacco abuse HTN (hypertension) Idiopathic sleep related nonobstructive alveolar hypoventilation FANNIE (obstructive sleep apnea) Periodic limb movement disorder (PLMD) Past Surgical History: Procedure Laterality Date CATARACT REMOVAL HEMORRHOID SURGERY HEMORRHOID SURGERY PROSTATE SURGERY TURP N/A 10/03/2022 CYSTOSCOPY TRANSURETHRAL RESECTION PROSTATE LASER-PVP GREENLIGHT performed by Zuhair Ramos MD at [facility] OR VASECTOMY Allergies Allergen Reactions Sulfa Antibiotics Rash Bactrim [Sulfamethoxazole-Trimethoprim] Rash Doxycycline Nausea Only Erythromycin Nausea And Vomiting Levofloxacin Diarrhea and Rash Current Outpatient Medications Medication Sig Dispense Refill XARELTO 20 MG TABS tablet Take 1 tablet by mouth every morning Pabrexu-Dpewimahgkv-Crubaygbql (BREZTRI AEROSPHERE) 160-9-4.8 MCG/ACT AERO Inhale 2 puffs into the lungs 2 times daily Rinse after use 32.1 g 4 albuterol sulfate HFA (PROVENTIL;VENTOLIN;PROAIR) 108 (90 Base) MCG/ACT inhaler Inhale 2 puffs intothe lungs every 4 hours as needed for Wheezing 54 g 4 albuterol (PROVENTIL) (2.5 MG/3ML) 0.083% nebulizer solution Take 3 mLs by nebulization 4 times daily 360 mL 12 magnesium oxide (MAG-OX) 400 (240 Mg) MG tablet Take 1 tablet by mouth daily polyethylene glycol (GLYCOLAX) 17 GM/SCOOP powder Take 17 g by mouth daily Lancets (ONETOUCH DELICA PLUS VBNCIB50B) [facility] USE TO TEST 3 TIMES A DAY *DX E11.22* latanoprost (XALATAN) 0.005 % ophthalmic solution 1 drop nightly allopurinol (ZYLOPRIM) 300 MG tablet TAKE 1 TABLET BY MOUTH EVERY DAY FOR 90 DAYS atorvastatin (LIPITOR) 20 MG tablet TAKE 1 TABLET BY MOUTH EVERY DAY FOR 90 DAYS OMEPRAZOLE PO Take 40 mg by mouth daily levothyroxine (SYNTHROID) 88 MCG tablet Take 1 tablet by mouth Daily losartan (COZAAR) 50 MG tablet Take 1 tablet by mouth daily metFORMIN (GLUCOPHAGE-XR) 750 MG extended release tablet Take 1 tablet by mouth daily (with breakfast) brimonidine (ALPHAGAN) 0.2 % ophthalmic solution Place 1 drop into both eyes 2 times daily timolol (BETIMOL) 0.25 % ophthalmic solution Place 1-2 drops into both eyes 2 times daily Lysine 1000 MG TABS Take by mouth Multiple Vitamin (MULTI VITAMIN MENS PO) Take by mouth Cyanocobalamin (VITAMIN B 12) 100 MCG LOZG Take by mouth daily glycopyrrolate-formoterol (BEVESPI) 9-4.8 MCG/ACT AERO Inhale 2 puffs into the lungs 2 times daily (Patient not taking: Reported on 01/27/2025) No current facility-administered medications for this visit. Immunization History Administered Date(s) Administered COVID-19, COMIRNATY (Pfizer), (age 12y+), IM, 30mcg/0.3mL 12/11/2022 COVID-19, Inactive, PFIZER PURPLE top, DILUTE for use, (age 12 y+) 03/17/2020, 04/07/2020, 12/04/2020 Social History Tobacco Use Smoking status: Former Current packs/day: 0.00 Average packs/day: 2.0 packs/day for 35.0 years (70.0 ttl pk-yrs) Types: Cigarettes Start date: 1959 Quit date: 1994 Years since quittin.9 Smokeless tobacco: Never Substance Use Topics Alcohol use: Never Family History Problem Relation Age of Onset Heart Disease Mother Diabetes Mother Hypertension Mother Prostate Cancer Father Lung Cancer Father Hypertension Father On this date 01/27/2025 I have spent 45 minutes reviewing previous notes, test results and face to face with the patient discussing the diagnosis and importance of compliance with the treatment plan as well as documenting on the day of the visit. An electronic signature was used to authenticate this note. -Michael Whitfield DO, PharmD, FACOI * Archie Bronson MA - 01/27/2025 10:56 AM EST 01/27/2025 10:55 AM Sleep Medicine Sitting and reading 3 Watching TV 3 Sitting, inactive in a public place (e.g. a theatre or a meeting) 0 As a passenger in a car for an hour without a break 0 Lying down to rest in the afternoon when circumstances permit 3 Sitting and talking to someone 0 Sitting quietly after a lunch without alcohol 0 In a car, while stopped for a few minutes in traffic 0 [place] Sleepiness Score 9 documented in this encounter Plan of Treatment DateTypeDepartmentCare Team (Latest Contact Info)Dzzemnqssqd14/18/2026 10:00 AM ESTOffice Visit [facility] [address] [place] [address] [place] [id number] Michael Whitfield DO [address] [place], [place] [id number] 2 MO F/U FANNIE/CSA, COPD.NameTypePriorityAssociated DiagnosesOrder ScheduleSleep Study with PAP TitrationSleep CenterRoutine FANNIE (obstructive sleep apnea) Central sleep apnea Ordered: 01/27/2025documented as of this encounter Visit Diagnoses Diagnosis Centrilobular emphysema- Primary Other emphysema FANNIE (obstructive sleep apnea) Obstructive sleep apnea (adult) (pediatric) Central sleep apnea Unspecified sleep apnea Idiopathic sleep related nonobstructive alveolar hypoventilation History of tobacco abuse Personal history of tobacco use, 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
--- OUTSIDE RECORDS SUMMARY | 2025-02-02 14:30 | XMS_ITS | Encounter Summary ---
Author Organization [employer] s tem Address [id number] [address] [place] [address] Care Team Providers Care Perfume Compounder Name Role Phone Unavailable Primary Care Provider Unavailabl e Reason for Visit * ReasonCommentsBlood Clot(s)Deep Vein ThrombosisHx of DVT LLE Encounter Details DateTypeDepartmentCare Team (Latest Contact Info)Gbfqgjlyxrx06/15/2025 2:30 PM ESTOffice Visit [facility] [place] [address] [place] [phone] Kaylie Grimm, VETERINARY MANAGER-BREAKER OILER [address] [facility] [place] [address] Acute deep vein thrombosis (DVT) of left femoral vein ([facility]) (Primary Dx) Social History Tobacco UseTypesPacks/DayYears UsedDateSmoking Tobacco: FormerCigarettes Smokeless Tobacco: Never Tobacco Cessation:Counseling Given: Not Answered Comments:Quit 30 years ago Hunger ScreeningAnswerDate RecordedWithin the past 12 months we worried whether our food would run out before we got money to buy more.Never True07/17/2024 Within the past 12 months the food we bought just didn't last and we didn't have money to get more.Never True07/17/2024Sex and Gender InformationValueDate RecordedSex Assigned at UkyejMxjl47/19/2025 3:23 PM EDTLegal FhzBsjc3407/07/2024 3:22 PM EDTGender JcyvddgvWyaw63/19/2025 3:23 PM EDTSexual OrientationNot on filedocumented as of this encounter Last Filed Vital Signs Vital SignReadingTime TakenCommentsBlood Bekvcmqr423/7502/02/2025 2:36 PM EST Hdgfc200502/02/2025 2:36 PM ESTTemperature--Respiratory Rate--Oxygen Saturation-- Inhaled Oxygen Concentration--Vamwnt69.5 kg (193 lb)02/02/2025 2:36 PM ESTHeight --Body Mass Index26.9205/ 8:48 AM EDTdocumented in this encounter Progress Notes * Kaylie Grimm, VETERINARY MANAGER-BREAKER OILER - 02/02/2025 2:30 PM EST Images from the original note were not included. [facility] [address] [phone] Subjective: Patient ID: Jovon Slaughter Sr. is a 84 y.o. male. Chief Complaint Chief Complaint Patient presents with Blood Clot(s) Deep Vein Thrombosis Hx of DVT LLE History of Present Illness: 84-year-old male whom we originally evaluated for an unprovoked left femoral vein DVT in June of 2024. This was found on outside venous Doppler imaging completed in [place]. He was placed on Eliquis at that time. He presents today for a routine six-month follow up. Reports his left lower extremity swelling has essentially resolved. He denies any new complaints. Reports his Xarelto is currently onhold for upper endoscopy scheduled for Sunday. This is for further evaluation of acid reflux. Both patient and report this is a first-time personal VTE occurrence. Denies any strong familyhistory. also reports he follows with a vascular surgeon at [facility] in [place] for a small AAA. He has an appointment with them on for his routine surveillance that he completes every 2 years. Patient Active Problem List Diagnosis Acute deep vein thrombosis (DVT) of left femoral vein ([facility]) Current Outpatient Medications: albuterol (PROVENTIL HFA;VENTOLIN HFA) 90 mcg/actuation inhaler, Inhale 2 puffs every 4 (four) hours as needed for wheezing., Disp: , Rfl: albuterol (PROVENTIL,VENTOLIN) 2.5 mg /3 mL (0.083 %) nebulizer solution, Inhale 3 mL (2.5 mg total) by nebulization every 8 (eight) hours as needed for wheezing., Disp: , Rfl: bimatoprost (LUMIGAN) 0.01 % ophthalmic drops, Instill 1 drop to eye in the morning., Disp: , Rfl: brimonidine (ALPHAGAN) 0.2 % ophthalmic solution, Administer 1 drop to both eyes in the morning and1 drop before bedtime., Disp: , Rfl: ikaozdjyyy-newbkswn-bqxzlwmqtw (BREZTRI AEROSPHERE) 160-9-4.8 mcg/actuation HFA aerosol inhaler, Inhale 2 puffs in the morning and 2 puffs before bedtime., Disp: , Rfl: insulin aspart, niacinamide, (FIASP FLEXTOUCH U-100 INSULIN) 100 unit/mL (3 mL) insulin pen, Inject1 Unit under the skin in the morning and at bedtime. Sliding scale, Disp: , Rfl: latanoprost (XALATAN) 0.005 % ophthalmic solution, Administer 1 drop to both eyes nightly., Disp: ,Rfl: magnesium oxide (MAGOX) 400 mg tablet, Take 1 tablet (400 mg total) by mouth in the morning., Disp:, Rfl: timolol (TIMOPTIC) 0.5 % ophthalmic solution, Administer 1 drop to both eyes in the morning and 1 drop before bedtime., Disp: , Rfl: amoxicillin-pot clavulanate (AUGMENTIN) 875-125 mg per tablet, Take 1 tablet by mouth in the morning and 1 tablet before bedtime. (Patient not taking: Reported on 02/02/2025), Disp: , Rfl: clindamycin (CLEOCIN) 300 mg capsule, Take 1 capsule (300 mg total) by mouth in the morning and 1 capsule (300 mg total) at noon and 1 capsule (300 mg total) in the evening and 1 capsule (300 mg total) before bedtime. (Patient not taking: Reported on 02/02/2025), Disp: , Rfl: predniSONE (DELTASONE) 10 mg tablet, Take 1 tablet (10 mg total) by mouth in the morning. Taper 60mg x 3 days, 40mg x 3 days, 20mg- x 3 days, 10mg x 3 days. (Patient not taking: Reported on 02/02/2025), Disp: , Rfl: rivaroxaban (XARELTO) 2.5 mg tablet, Take 8 tablets (20 mg total) by mouth in the morning. (Patientnot taking: Reported on 02/02/2025), Disp: 720 tablet, Rfl: 2 rivaroxaban (XARELTO) 20 mg tablet tablet, Take 1 tablet (20 mg total) by mouth in the morning. (Patient not taking: Reported on 02/02/2025), Disp: 90 tablet, Rfl: 0 XARELTO DVT-PE TREAT 30D START 15 mg (42)- 20 mg (9) tablets,dose pack, Take 15 mg by mouth in the morning and at bedtime. 15mg twice daily for 21 days, then 20mg daily (Patient not taking: Reported on 02/02/2025), Disp: , Rfl: The following portions of the patient's history were reviewed and updated as appropriate: allergies, current medications, past family history, past medical history, past social history, past surgicalhistory and problem list. Review of Systems: Review of Systems Constitutional: Negative for appetite change, chills, diaphoresis, fatigue and fever. HENT: Negative for congestion, facial swelling, nosebleeds, sinus pressure, sore throat and troubleswallowing. Eyes: Negative for pain, redness and visual disturbance. Respiratory: Negative for cough, chest tightness, shortness of breath and wheezing. Cardiovascular: Negative for chest pain, palpitations and leg swelling. Gastrointestinal: Negative for abdominal distention, abdominal pain, constipation, diarrhea, nauseaand vomiting. Genitourinary: Negative for dysuria, flank pain, frequency, hematuria and urgency. Musculoskeletal: Negative for arthralgias and joint swelling. Skin: Negative for pallor, rash and wound. Neurological: Negative for dizziness, syncope, facial asymmetry, weakness, light-headedness, numbness and headaches. Objective: Vitals BP 147/75 Pulse 75 Wt 87.5 kg (193 lb) BMI 26.92 kg/m?? Physical Exam Physical Exam Constitutional: Appearance: Normal appearance. HENT: Head: Normocephalic and atraumatic. Cardiovascular: Rate and Rhythm: Normal rate. Pulses: Dorsalis pedis pulses are detected w/ doppler on the right side and detected w/ doppler on the leftside. Pulmonary: Effort: Pulmonary effort is normal. Abdominal: General: Abdomen is flat. Palpations: Abdomen is soft. Neurological: General: No focal deficit present. Mental Status: He is alert and oriented to person, place, and time. Vascular: Right Lower Extremity Right lower extremity pulses DP: detected w/ doppler Doppler findings: strong Right lower extremity edema: none Left Lower Extremity Left lower extremity pulses DP: detected w/ doppler Doppler findings: strong Left lower extremity edema: none Studies Reviewed No results found for: DDIMER No results found for: GLU , CALCIUM , SODIUM , K , CO2 , BUN , CREATININE No results found for: WBC , HGB , HCT , MCV , PLT Assesment: Jovon was seen today for blood clot(s) and deep vein thrombosis. Diagnoses and all orders for this visit: Acute deep vein thrombosis (DVT) of left femoral vein (CMS-HCC) - D-Dimer; Future Plan Plan: 84-year-old male who developed an unprovoked left femoral vein DVT in June of 2024. This is a first-time personal VTE occurrence. Denies any strong family history. He has been on Eliquis since that time. Recommend we obtain a D-dimer. If normal can likely discontinue anticoagulation. Will call patient with the result. If he develops another VTE event would recommend lifelong anticoagulation. Discussed with both patient and if D-dimer is normal no subsequent follow up with us is necessary. He is already established with a vascular surgeon Shahnaz whom he sees for a small AAA. He cancontinue his routine surveillance with them. Verbalizes her understanding. This note was created with the assistance of a speech recognition program. While intending to generate a timely document that accurately reflects the content of the visit, no guarantee can be provided that every grammatical or spelling mistake has been or will be identified or corrected. Thank you for your understanding. HUNG Yap APRN-CNP 02/02/25 1533 documented in this encounter Plan of Treatment NameTypePriorityAssociated DiagnosesOrder ScheduleD-DimerLabRoutine Acute deep vein thrombosis (DVT) of left femoral vein (CMS-HCC) 1 Occurrences starting 02/02/2025 until 02/02/2026documented as of this encounter Visit Diagnoses Diagnosis Acute deep vein thrombosis (DVT) of left femoral vein (CMS-HCC)- Primary documented in this encounter
--- OUTSIDE RECORDS SUMMARY | 2025-02-03 10:16 | XMS_ITS | Clinical Summary ---
Author Organization [employer] Address [id number] [address] [place] [address] Care Team Providers Care Certified Nursing Assistant Instructor Name Role Phone Unavailable Primary Care Provider Unavailabl e Allergies Active AllergyReactionsCriticalityNoted DateCommentsErythromycin BaseRashLow 07/17/20244075YhzxsrhqtsbfPqqjCqc44/29/2025Sulfa (Sulfonamide Antibiotics)RashLow 07/17/2024 Medications MedicationSigDispense QuantityRefillsLast FilledStart DateEnd DateStatus bimatoprost (LUMIGAN) 0.01 % ophthalmic drops Instill 1 drop to eye in the morning.Active albuterol (PROVENTIL,VENTOLIN) 2.5 mg /3 mL (0.083 %) nebulizer solution Inhale 3 mL (2.5 mg total) by nebulization every 8 (eight) hours as needed for wheezing.Active albuterol (PROVENTIL HFA;VENTOLIN HFA) 90 mcg/actuation inhaler Inhale 2 puffs every 4 (four) hours as needed for wheezing.Active brimonidine (ALPHAGAN) 0.2 % ophthalmic solution Administer 1 drop to both eyes in the morning and 1 drop before bedtime.Active huliqhfpid-oiefpaaa-iwxrymueem (BREZTRI AEROSPHERE) 160-9-4.8 mcg/actuation HFA aerosol inhaler Inhale 2 puffs in the morning and 2 puffs before bedtime.4Active magnesium oxide (MAGOX) 400 mg tablet Take 1 tablet (400 mg total) by mouth in the morning.5Active timolol (TIMOPTIC) 0.5 % ophthalmic solution Administer 1 drop to both eyes in the morning and 1 drop before bedtime.Active latanoprost (XALATAN) 0.005 % ophthalmic solution Administer 1 drop to both eyes nightly.Active insulin aspart, niacinamide, (FIASP FLEXTOUCH U-100 INSULIN) 100 unit/mL (3 mL) insulin pen Inject 1 Unit under the skin in the morning and at bedtime. Sliding scaleActive predniSONE (DELTASONE) 10 mg tablet Take 1 tablet (10 mg total) by mouth in the morning. Taper 60mg x 3 days, 40mg x 3 days, 20mg- x 3 days, 10mg x 3 days.Active rivaroxaban (XARELTO) 2.5 mg tablet Take 8 tablets (20 mg total) by mouth in the morning. 720 tablet tive Additional Information Patient not taking.Reported on 02/02/2025 XARELTO DVT-PE TREAT 30D START 15 mg (42)- 20 mg (9) tablets,dose pack Take 15 mg by mouth in the morning and at bedtime. 15mg twice daily for 21 days, then 20mg dailyDiscontinued clindamycin (CLEOCIN) 300 mg capsule Take 1 capsule (300 mg total) by mouth in the morning and 1 capsule (300 mg total) at noon and 1 capsule (300 mg total) in the evening and 1 capsule (300 mg total) before bedtime.02/02/2025Discontinued amoxicillin-pot clavulanate (AUGMENTIN) 875-125 mg per tablet Take 1 tablet by mouth in the morning and 1 tablet before bedtime.02/02/2025 Discontinued rivaroxaban (XARELTO) 2.5 mg tablet Take 8 tablets (20 mg total) by mouth in the morning. 720 tablet Discontinued(Reorder) rivaroxaban (XARELTO) 20 mg tablet tablet Indications:Acute deep vein thrombosis (DVT) of left femoral vein (CMS-HCC)Take 1 tablet (20 mg total) by mouth in the morning. 90 tablet Discontinued Active Problems ProblemNoted DateDiagnosed DateAcute deep vein thrombosis (DVT) of left femoral vein07/17/2024 Assessment & Plan (07/17/2024 9:29 AM EDT): First-time unprovoked DVT. He says that he is not active and he sits in 1 position for long hours. But that is his routine. Recommended continue Xarelto for 3 to 6-month compression therapy and follow-up within with D-dimer. Encounters DateTypeDepartmentCare UucyRjvuijowtjl78/15/2025 2:30 PM ESTOffice Visit [facility] [place] [address] [place] [address] Kaylie Grimm, TAX CREDIT LEASING CONSULTANT-INSULATION BOARD BACK TENDER Acute deep vein thrombosis (DVT) of left femoral vein ([facility]) (Primary Dx) 02/02/20255914Ovhoke27/01/2025Refill [facility] [address] [place] [address] Radhika Phoenix from Last 3 Months Family History Medical HistoryRelationNameCommentsCancerFatherDiabetesMotherRelationNameStatus CommentsFatherMother Social History Tobacco UseTypesPacks/DayYears UsedDateSmoking Tobacco: FormerCigarettes [...] True07/17/2024Sex and Gender InformationValueDate RecordedSex Assigned at AqwexRfns92/19/2025 3:23 PM EDTLegal ZmwNlmh6507/07/2024 3:22 PM EDTGender WqptprujEwzf79/19/2025 3:23 PM EDTSexual OrientationNot on file Last Filed Vital Signs Vital SignReadingTime TakenCommentsBlood Fqkmudqh449/7502/02/2025 2:36 PM EST Oftfk883502/02/2025 2:36 PM CDLEhrresiefov32.5 ??C (97.7 ??F)07/17/2024 8:48 AM EDTRespiratory Rate--Oxygen Mafxsrbssh91%07/17/2024 8:48 AM EDTInhaled Oxygen Concentration--Vwbgvz86.5 kg (193 lb)02/02/2025 2:36 PM PZPZfdmcm529.3 cm (5' 11 )07/17/2024 8:48 AM EDTBody Mass Index26.9207/17/2024 8:48 AM EDT Plan of Treatment Health MaintenanceDue DateLast DoneCommentsDepression Jkfixiwvf03/07/1953Fall Risk Asspyzten35/07/2006Zoster (Shingles) Vaccine (1 of 2) RSV ( or age 60+ yrs) (1 - 1-dose 75+ series)04/26/2015COVID-19 Vaccine (6 - Pfizer risk season), 12/11/2022, 12/04/2020, Additional history existsTobacco Txngcfupw75DTaP,Tdap and Td Vaccines (2 - Td or Tdap)Influenza VaccineCompleted 12/18/2024, 12/27/2023, 12/04/2022, Additional history exists Medical Devices Not on file Insurance
--- OUTSIDE RECORDS SUMMARY | 2025-02-03 10:16 | XMS_ITS | Clinical Summary ---
Author Organization [facility] Address [address] [facility] [place] [address] Care Team Providers Care Manager Proposal Name Role Phone Unavailable Primary Care Provider Unavailabl e Source Comments The following information is NOT included in Care Everywhere downloads:Psychiatric notes, ECG results, Cardiac Rehab notes, Pulmonary Function notes, data from SmartForms (includes but not limited toPregnancy data,audiograms, eye exams, pre-surgical evaluation notes, well-child exam data).[facility] Social History Tobacco UseTypesPacks/DayYears UsedDateSmoking Tobacco: Never AssessedSex and Gender InformationValueDate RecordedSex Assigned at BirthNot on fileLegal Sex Male03/30/2022 10:11 AM ESTGender IdentityNot on fileSexual OrientationNot on file Last Filed Vital Signs Vital SignReadingTime TakenCommentsBlood Nnvbmybo320/78003/27/2022 11:40 PM EST Zeapl07164/06/2023 11:40 PM ESTTemperature--Respiratory Fjel655303/27/2022 11:40 PM ESTOxygen Pzbzpmlqbh25%03/27/2022 11:40 PM ESTInhaled Oxygen Concentration-- Weight--Height--Body Mass Index-- Plan of Treatment Health MaintenanceDue DateLast DoneCommentsTdap Bexecxw2204/25/1958Hepatitis A (HAV) Vaccine (optional start 19+ years)04/26/1959Pneumococcal Vaccine(s) (50+ yrs) (1 of 1 - PCV)1990Shingles (RZV) Vaccine (1 of 2)1990Hepatitis B (HBV) Vaccine (optional start 60+ years)2000Annual Wellness Visit (G0438)01/19/2011RSV vaccine (adult) (1 - 1-dose 75+ series)04/26/2015COVID-19 Vaccine ( - 2024-26 season)2024Influenza Vaccine (#1)2024 Insurance
--- OUTSIDE RECORDS SUMMARY | 2025-02-03 10:16 | XMS_ITS | Clinical Summary ---
Author Organization [facility] Address [address] [place] [address] Care Team Providers Care Computer Drafter Name Role Phone Clayton Allred MD Unavailable [phone] Briseida Paez RN Unavailable [phone] Clayton Allred MD Primary Care Provider [phone] Allergies Active AllergyReactionsCriticalityNoted DateCommentsErythromycinNausea And IgwjriilHlwg13/19/2008Erythromycin BaseNausea Only08/03/2022LevofloxacinDiarrhea 03/01/2022Metformin Hcl08/03/2022 Other Reaction(s): loose bowels Sulfa MlpnfopnmhlGcfrInp01/29/2025Sulfamethoxazole-Elwddxtukbuw14/15/2023 Other Reaction(s): GI upset/diarrhea Xzyqgwqhwigp27/27/2025 Other Reaction(s): Feeling sick Medications MedicationSigDispense QuantityRefillsLast FilledStart DateEnd DateStatus albuterol (2.5 MG/3ML) 0.083% nebulizer solution Take 2.5 mg by nebulization every 8 (eight) hours if needed for wheezingActive brimonidine (AlphaGAN P) 0.2 % ophthalmic solution Administer 1 drop into the right eye in the morning and 1 drop before bedtime. Active latanoprost (Xalatan) 0.005 % ophthalmic solution Administer 1 drop into both eyes at bedtimeActive Multiple Vitamins-Minerals (Multi For Him) tablet Take 1 tablet by mouth DailyActive timolol (Timoptic) 0.5 % ophthalmic solution Administer 1 drop into both eyes in the morning and 1 drop before bedtime.Active albuterol HFA 90 mcg/act inhaler Inhale 2 puffs every 6 (six) hours if needed for wheezing or shortness of breath 09/25/2022ctive sodium chloride 0.9 % nebulizer solution Take 3 mL by nebulization if mztmqu9802/27/2023ctive FIBER COMPLETE PO Take 1 tablet by mouth DailyActive cyanocobalamin (Vitamin B-12) 1000 MCG tablet Take 2,500 mcg by mouth DailyActive Bioflavonoid Products (REAL C PO) Take 500 mg by mouth DailyActive polyethylene glycol, PEG, 3350 (Glycolax) 17 GM/SCOOP powder Indications:ConstipationTake 17 g by mouth DailyActive Breztri Aerosphere 160-9-4.8 MCG/ACT aerosol Inhale 2 puffs in the morning and 2 puffs before bedtime.08/01/2023ctive magnesium oxide (Mag-Ox) 400 mg tablet Indications:HypernatremiaTake 1 tablet (400 mg) by mouth Daily 90 tablet /6Active Xarelto 20 MG tablet Take 20 mg by mouth in the morning.5Active guaiFENesin (Mucinex) 600 MG 12 hr tablet Take 600 mg by mouth Daily Do not crush, chew, or split.Active traMADol (Ultram) 50 MG tablet Indications:Traumatic ecchymosis of lower back, initial encounterTake 1 tablet (50 mg) by mouth every 8 (eight) hours if needed for severe pain or moderate pain forup to 7 days 21 tablet 5Active omeprazole (PriLOSEC) [address] capsule Indications:Gastroesophageal reflux disease without esophagitisTake 1 capsule (40 mg) by mouth in the morning. Take before meals. 90 capsule ctive levothyroxine (Synthroid, Levoxyl) 88 MCG tablet Indications:Acquired hypothyroidismTake 1 tablet (88 mcg) by mouth in the morning. Take before meals. 90 tablet ctive Lancets 30G misc Indications:Type 2 diabetes mellitus with stage 3a chronic kidney disease, with long-term current use of insulin (HCC)1 Lancet in the morning and 1 Lancet in the evening and 1 Lancet before bedtime. Uses One touch Pockee lancet/device. 300 each //ctive ttwepntf-cxjyzkhjk-dzpsdvsebvhyfb (Cortisporin) 3.5-41963-5 otic suspension Indications:Infective Otitis ExternaApply 3 drops to affected ear 3 times daily for 7 days 10 mL 12/18/2024tive metFORMIN XR (Glucophage-XR) 750 MG 24 hr tablet Indications:Type 2 diabetes mellitus with stage 3a chronic kidney disease, with long-term current use of insulin (HCC)Take 1 tablet (750 mg) by mouth in the evening. Take with meals 90 tablet ctive losartan (Cozaar) 50 MG tablet Indications:Benign essential hypertensionTake 1 tablet (50 mg) by mouth Daily 90 tablet ctive atorvastatin (Lipitor) 20 MG tablet Indications:Mixed hyperlipidemiaTake 1 tablet (20 mg) by mouth in the evening 90 tablet ctive allopurinol (Zyloprim) 100 MG tablet Indications:HyperuricemiaTake 1 tablet (100 mg) by mouth Daily 90 tablet ctive Blood Glucose Monitoring Suppl (ONE TOUCH ULTRA 2) w/Device kit Indications:Type 2 diabetes mellitus with stage 3a chronic kidney disease, with long-term current use of insulin (HCC)Use twice daily and prn for symptoms 1 kit 12/22/2024tive glucose blood test strip Indications:Type 2 diabetes mellitus with stage 3a chronic kidney disease, with long-term current use of insulin (HCC)Test three times a day; Sliding scale to titrate blood sugars. One touch Ultra Blue DX: E11.22, N18.31, Z79.4 200 each tive insulin aspart FlexPen (NovoLOG) 100 UNIT/ML pen Indications:Type 2 diabetes mellitus with stage 3a chronic kidney disease, with long-term current use of insulin (HCC)Inject subcutaneous per Sliding scale 3 times daily with meals; 141-200=3u, 201-250=5u, 251-300=8u,>300=12u 15 mL tive insulin pen needle (BD Pen Needle Lindsay 2nd Gen) 32G x 4 mm [facility] [place] Indications:Type 2 diabetes mellitus with stage 3a chronic kidney disease, with long-term current use of insulin (HCC)Use as instructed 3 times a day 300 each ctive insulin aspart, with niacinamide, (Fiasp FlexTouch) 100 UNIT/ML injection Indications:Type 2 diabetes mellitus with stage 3a chronic kidney disease, with long-term current use of insulin (HCC)Sliding scale 3 times daily with meals; 141-200=3u, 201-250=5u, 251-300=8u, >300=12u 15 mL 309/Discontinued(Reorder) insulin pen needle (BD Pen Needle Lindsay 2nd Gen) 32G x 4 mm [facility] [place] Indications:Type 2 diabetes mellitus with stage 3a chronic kidney disease, with long-term current use of insulin (HCC)Use as instructed 3 times a day 300 each Discontinued(Reorder) insulin aspart, with niacinamide, (Fiasp FlexTouch) 100 UNIT/ML injection Indications:Type 2 diabetes mellitus with stage 3a chronic kidney disease, with long-term current use of insulin (HCC)Sliding scale 3 times daily with meals; 141-200=3u, 201-250=5u, 251-300=8u, >300=12u 15 mL /Discontinued insulin aspart (NovoLOG) 100 UNIT/ML pen cartridge Indications:Type 2 diabetes mellitus with stage 3a chronic kidney disease, with long-term current use of insulin (HCC)Sliding scale 3 times daily with meals; 141-200=3u, 201-250=5u, 251-300=8u, >300=12u 15 mL Discontinued(Entered in error) Active Problems ProblemNoted DateDiagnosed DateIdiopathic sleep related nonobstructive alveolar nnwirfsorfzltia22/04/2025Type 2 diabetes mellitus with hyperglycemia, with long- term current use of nhftgju5604/21/2024Glaucomatous flecks (subcapsular), bilateral (CODE)04/06/2024Long term (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 of inhaled mvmdwsox52/24/2024 Ggtvcantejvccp78/17/2024OAB (overactive bladder)10/19/2022cquired oknxsktvxzdzww01/15/2023cute on chronic respiratory failure with hypoxemia 08/03/2022neurysm of infrarenal abdominal aorta08/03/2022rthritis of left hip 08/03/2022rthritis of right knee08/03/2022therosclerotic heart disease of robinson coronary artery without angina dqyipwoo82/15/2023enign essential iamwgqejyvuo97/15/2023enign prostatic hyperplasia with lower urinary tract quvysash17/15/2023arotid artery plaque, left08/03/20224056Upjwszurjlzwxa13/15/2023 Chronic zstbahc1308/03/2022iscoid wxavfilgsue36/15/2023Erectile dysfunction due to arterial fxqutindinlrj86/15/2023astroesophageal reflux disease without boelehjbmkv19/15/2023Heart murmur, ykeyswro06/15/2023Hypertensive nephropathy 08/03/20223399Trwokkizpfiqt57/15/2023hronic gout, unspecified, with tophus (tophi) 08/03/2022Interstitial lung bmjshgt2308/03/20225164Jlqxtfrqkzqivger46/15/2023Mixed iyhzwroajnttun05/15/2023Mixed simple and mucopurulent chronic bronchitis 08/03/2022Nonalcoholic steatohepatitis (KAHN)08/03/2022Osteoarthritis of /15/9544Pwuwjpthar33/15/2023anlobular lsuldedmv25/15/2023Retinal disorder, lqzboajtp11/15/2023Squamous qbnpsnqxfez74/15/2023Stage 3a chronic kidney hshreri9008/03/2022Type 2 diabetes mellitus with stage 3a chronic kidney disease, with long-term current use of hurkifn3608/03/2022Varicose veins of both lower xiaccxjbnmp61/15/2023Venous wdqiegvzefheo38/15/9852Hgdbitsqzvyk90/21/2020 Primary open angle glaucoma (POAG) of both eyes08/06/2018Lower urinary tract symptoms due to benign prostatic wqlpimectzq12/03/2016Vocal cord bowing 08/19/2015Vitreous degeneration of both eyes06/09/2015Ex-cldosf4903/12/2015 Resolved Problems ProblemNoted DateDiagnosed DateResolved DatePneumonia, unspecified organism /ute exacerbation of chronic obstructive airways disease /ilateral acute angle-closure /08/2022 Moderate protein-calorie malnutrition (HHS-HCC)/rimary open angle glaucoma (POAG) of left eye, mild stage/rimary open angle glaucoma (POAG) of right eye, moderate stage/08/2022Muscle weakness (generalized)/08/2022Left carotid artery occlusion Encounters DateTypeDepartmentCare SaywEyrjxeipgap43/01/2025Telephone [address] [address] Jennifer Laxmi, [place] Care Whxhqmvbsuis99/18/2025Refill [address] [address] Clayton Allred MD Type 2 diabetes mellitus with stage 3a chronic kidney disease, with long-term current use of insulin ([facility])01/06/2025Orders Only [address] [address] Jennifer May, [place] Type 2 diabetes mellitus with stage 3a chronic kidney disease, with long-term current use of insulin ([facility])12/24/2024Patient Outreach [address] [place] [address] Briseida Paez RN 12/23/2024Orders Only [address] [address] Jennifer [place], [place] Type 2 diabetes mellitus with stage 3a chronic kidney disease, with long-term current use of insulin ([facility])12/22/2024 2:30 PM ESTOffice Visit [address] [address] Clayton Allred MD Benign essential hypertension (Primary Dx); Mixed hyperlipidemia; Type 2 diabetes mellitus with stage 3a chronic kidney disease, with long-term current use of insulin ([facility]); Hyperuricemia; Polypharmacy; Panlobular emphysema (HCC)12/22/2024amboo flowsheet [address] [place] [address] Clayton Allred MD 12/22/20249357Ivljaa47/30/2025 2:30 PM EDTOffice Visit [address] [place] [address] Clayton Allred MD Acute otitis externa of right ear, unspecified type (Primary Dx); Type 2 diabetes mellitus with stage 3a chronic kidney disease, with long-term current use of insulin ([facility]); Other infective acute otitis externa, unspecified laterality; Pharyngoesophageal xcbpuznrx62/30/2025[facility] flowsheet [address] [place] [address] Clayton Allred MD 12/18/20243074Xzclsa07/14/2025 1:40 PM EDTOffice Visit [facility] [address] [place] [address] Urban Mae DPM Diabetes mellitus due to underlying condition with diabetic polyneuropathy, without long-term current use of insulin ([facility]) (Primary Dx); Pain due to onychomycosis of toenails of both feet12/01/2024Patient Outreach [facility] [address] [place] [address] Briseida Paez RN 11/28/2024[address]ill [address] [address] [place] [address] Clayton Allred MD Benign essential hypertension; Type 2 diabetes mellitus with stage 3a chronic kidney disease, with long-term current use of insulin ([facility])11/13/2024Telephone [address] [place] [address] Laxmi Rodriguez MA Care Vuaxkfemnehk59/19/2025Patient Outreach [facility] [address] [place] [address] Briseida Paez RN 11/05/2024 4:00 PM EDTOffice Visit [address] [address] Clayton Allred MD COPD with acute exacerbation (HCC); Ex-smoker; 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; Polypharmacy; Ihmjnkbeku51/17/2025amboo flowsheet [address] [address] Clayton Allred MD 11/05/2024Travelfrom Last 3 Months Immunizations ImmunizationAdministration DatesNext DueInfluenza, High Dose Seasonal, Preservative Free12/18/2024,12/04/2020,10/15/2019,11/23/2017,01/17/2017, 12/16/2015Influenza, High-dose Seasonal, Quadrivalent, Preservative Free 12/04/2020Influenza, Seasonal, Quadrivalent, Laywkihmzb31/16/2023,12/08/2021 Influenza, injectable, quadrivalent, preservative free12/08/2021,11/29/2019, 11/07/2018,11/23/2017,01/08/2015Influenza, seasonal, ffirldcfnm49/07/2024 Influenza, seasonal, injectable, preservative free01/08/2015,12/23/2012 Influenza, trivalent, vziridyrud13/19/2019Pfizer Purple Cap SARS-CoV-2 Qtskinppngs43/08/2025Pneumococcal Conjugate PCV ,01/19/2017 Pneumococcal Polysaccharide QRCG504003/13/2015,08/06/2013Tdap07/27/2024Zoster, live12/24/2013 Family History Medical HistoryRelationNameCommentsCancerFatherBirdie LovinsHypertensionFather Birdie LovinsDiabetesMotherRita LovinsHeart diseaseMotherRita LovinsHypertension MotherRita LovinsRelationNameStatusCommentsBrother2 brothersDaughterAlive3 daughtersFatherBirdie LovinsDeceasedMotherRita LovinsDeceasedSister3 sistersSon Alive2 sons Social History Tobacco UseTypesPacks/DayYears UsedDateSmoking Tobacco: FormerCigarettes1.515 02/20/1964 - 01/08/1995Smokeless Tobacco: Never Tobacco Cessation:Counseling Given: Yes Comments:Stop smoking: >30 years. Last smoked: >10 years Alcohol UseStandard Drinks/WeekCommentsNot Currently0 (1 standard drink = 0.6 oz pure alcohol)Caffeine intake: 1-2 cups per fuzX2259 Health LiteracyAnswerDate RecordedHow often do you need to have someone help you when you read instructions, pamphlets, or other written material from your doctor or pharmacy? Lhpozi3601/03/2024Humiliation, Afraid, Rape, and Kick questionnaireAnswerDate RecordedFear of Current or Ex-PartnerNot on file10/25/2022Within the last year, have you been humiliated or emotionally abused in other ways by your partner or ex-partner?No10/25/2022hysically AbusedNot on file10/25/2022Sexually AbusedNot on file10/25/2022Social Connection and Isolation PanelAnswerDate RecordedIn a typical week, how many times do you talk on the phone with family, friends, or neighbors?More than three times a week01/03/2024How often do you get together with friends or relatives?Three times a week01/03/2024How often do you attend rastafarian or pentecostalism services?More than 4 times per year01/03/2024o you belong to any clubs or organizations such as rastafarian groups, unions, fraternal or athletic groups, or school groups?Yes01/03/2024How often do you attend meetings of the clubs or organizations you belong to?More than 4 times per year01/03/2024 Are you , , , , never , or living with a partner?Fprwivx6701/03/2024UDIT-CAnswerDate RecordedQ1: How often do you have a drink containing alcohol?Never01/03/2024Q2: How many drinks containing alcohol do you have on a typical day when you are drinking?Patient does not drink 01/03/2024Q3: How often do you have six or more drinks on one occasion?Never 01/03/2024Overall Financial Resource Strain (CARDIA)AnswerDate RecordedHow hard is it for you to pay for the very basics like food, housing, medical care, and heating?Not hard at all01/03/2024HQ-2AnswerDate RecordedPatient Health Questionnaire-2 Zxqaz02902/22/2024Fin[facility] - Occupational Stress QuestionnaireAnswerDate RecordedDo you feel stress - tense, restless, nervous, or anxious, or unable to sleep at night because yourmind is troubled all the time - these days?Not at all01/03/2024Exercise Vital SignAnswer Date RecordedOn average, how many days per week do you engage in moderate to strenuous exercise (like a brisk walk)?3 days01/03/2024On average, how many minutes do you engage in exercise at this level?20 min01/03/2024Hunger Vital SignAnswerDate RecordedWithin the past 12 months, you worried that your food would run out before you got the money to buymore.Never true01/03/2024Within the past 12 months, the food you bought just didn't last and you didn't have money to get more.Never true01/03/2024RAPARE - TransportationAnswerDate RecordedIn the past 12 months, has lack of transportation kept you from medical appointments or from getting medications?No01/03/2024In the past 12 months, has lack of transportation kept you from meetings, work, or from getting things needed for daily living?No01/03/2024Housing Stability Vital SignAnswerDate RecordedIn the last 12 months, was there a time when you were not able to pay the mortgage or rent on time?No06/25/2023In the last 12 months, how many places have you lived?In the last 12 months, was there a time when you did not have a steady place to sleep or slept in state mental health facility (including now)?No 06/25/2023Housing Stability Vital SignAnswerDate RecordedIn the last 12 months, was there a time when you were not able to pay the mortgage or rent on time?No 01/03/2024In the past 12 months, how many times have you moved where you were living?t any time in the past 12 months, were you homeless or living in a halfway (including now)?No01/03/2024EducationAnswerDate RecordedWhat is the highest level of school you have completed or the highest degree you have received?High school knmdmjro80/24/2023Sex and Gender InformationValueDate RecordedSex Assigned at BirthNot on fileLegal LmdKlke8205/03/2022 6:47 PM EDT Gender IdentityNot on fileSexual OrientationNot on file Last Filed Vital Signs Vital SignReadingTime TakenCommentsBlood Zvahcbbr609/7012/22/2024 2:12 PM EST Orkzl030412/22/2024 2:12 PM QSXVizrjsjsuqy58.7 ??C (98.1 ??F)01/03/2024 10:41 AM ESTRespiratory Tzru5753 1:03 PM EDTOxygen Guydckpyrv84%12/22/2024 2:12 PM ESTInhaled Oxygen Concentration--Murrda38.5 kg (193 lb)12/22/2024 2:12 PM EST Zjggdj974.8 cm (5' 10 )12/22/2024 2:12 PM ESTBody Mass Index27.6912/22/2024 2:12 PM EST Plan of Treatment DateTypeDepartmentCare Team (Latest Contact Info)Wnvekzrnfmq63/06/2026 1:10 PM ESTOffice Visit [facility] [address] [place] [address] Urban Mae DPM [address] [facility] [address] [place] [address] 06/16/2025 2:00 PM EDTOffice Visit [facility] [address] [address] [place] [address] Clayton Allred MD [address] [place] [address] Health MaintenanceDue DateLast DoneCommentsDiabetes: Hemoglobin A1C04/20/2025 10/21/2024, 11/06/2023, 05/18/2023, Additional history existsDiabetes: Urine Protein Frblezkcz32, 03/08/2017Diabetes: Retinopathy Screening , 05/22/2023, 03/06/2022, Additional history exists Pneumococcal Vaccine: 65+ FmarsRlexzbway28/13/2017, 01/19/2017, 01/12/2016, Additional history existsInfluenza ZhrgiqdApmpsidjs49/30/2025, 12/27/2023, 12/04/2022, Additional history existsCOVID-19 CqmxbokQqvpiqtcjpbb03/08/2025, 01/26/2025, 12/11/2022, Additional history exists Procedures Procedure NamePriorityDate/TimeAssociated DiagnosisCommentsDIABETIC RETINOPATHY SCREENING - OU - BOTH QZDBUighfdm51/07/2025 2:14 PM EDTHEMOGLOBIN J4SZjpbmdv 10/24/2022 4:33 PM EDT Type 2 diabetes mellitus with stage 3a chronic kidney disease, with long-term current use of insulin (HCC) MICROALBUMIN, URINE BZTLVMwcmrtr48/18/2018 12:00 PM EST from Last 3 Months or Most Recently Relevant to Health Maintenance Results * (ABNORMAL) Diabetic Retinopathy Screening - OU - Both Eyes (05/26/2024 2:14 PM EDT)Anatomical RegionLateralityModalityHeadOther Narrative Authorizing ProviderResult TypeResult StatusGeorge Monzon MDOPH PHOTOGRAPHYFinal Result * Hemoglobin A1c (10/24/2022 4:33 PM EDT)Specimen (Source)Anatomical Location / LateralityCollection Method / VolumeCollection TimeReceived TimeBloodVenous blood specimen / Unknown Narrative Authorizing ProviderResult TypeResult StatusEdandrew Allred MDLAB BLOOD ORDERABLESFinal ResultPerforming OrganizationAddressCity/State/ZIP CodePhone Number QUEST * MICROALBUMIN, URINE QUANT (03/08/2017 12:00 PM EST)ComponentValueRef RangeTest MethodAnalysis TimePerformed AtPathologist SignatureGENERIC LEGACY COMPONENT INTERNAL0-1,500ECW NONXML LABSGENERIC LEGACY COMPONENT [id number] NONXML LABSSpecimen (Source)Anatomical Location / LateralityCollection Method / VolumeCollection TimeReceived Time03/08/2017 12:00 PM EST Narrative Authorizing ProviderResult TypeResult StatusJennstella Antonella Kiranrbacher NPE[facility] LABS Final ResultPerforming OrganizationAddressCity/State/ZIP CodePhone Number ECW NONXML LABS from Last 3 Months or Most Recently Relevant to Health Maintenance [place] [address] [place] [address] Advance Directives TypeDate RecordedPatient RepresentativeExplanationPower of Attorney04/09/2024 3:45 [id number] Power Of AttorneyAdvance Directives and Living Will04/09/2024 3:38 [id number] Living Will Care Teams Team MemberRelationshipSpecialtyStart DateEnd Date Clayton Allred MD [address] [place] [address] PCP - ACO Reach07/13/22 Clayton Allred MD [address] [place] [address] (Fax) PCP - GeneralFamily Medicine04/14/24 Briseida Paez, PATRIC [address] [facility] [[email or web address]] [address] [place] [address] Registered NurseFamily Medicine03/16/23
--- OUTSIDE RECORDS SUMMARY | 2025-02-03 10:16 | XMS_ITS | Clinical Summary ---
Author Organization [facility] Address [address], [address] [place] [address] Care Team Providers Care Heavy Duty Custodian Name Role Phone Clayton Allred MD Primary Care Provider + [phone] Allergies Active AllergyReactionsCriticalityNoted DateComments Sulfamethoxazole-HluecrcvawvqJndcPco63/02/2023DoxycyclineNausea OnlyLow 01/20/2025ErythromycinNausea And SeqgdzvbGss39/19/2008LevofloxacinDiarrhea,Rash Low03/01/2022Sulfa OcojpzljblvLtlpWgcw69/12/2025 Medications MedicationSigDispense QuantityRefillsLast FilledStart DateEnd DateStatus OMEPRAZOLE PO Take 40 mg by mouth dailyActive glycopyrrolate-formoterol (BEVESPI) 9-4.8 MCG/ACT AERO Inhale 2 puffs into the lungs 2 times dailyActive levothyroxine (SYNTHROID) 88 MCG tablet Take 1 tablet by mouth DailyActive losartan (COZAAR) 50 MG tablet Take 1 tablet by mouth dailyActive metFORMIN (GLUCOPHAGE-XR) 750 MG extended release tablet Take 1 tablet by mouth daily (with breakfast)Active brimonidine (ALPHAGAN) 0.2 % ophthalmic solution Place 1 drop into both eyes 2 times dailyActive timolol (BETIMOL) 0.25 % ophthalmic solution Place 1-2 drops into both eyes 2 times dailyActive Lysine 1000 MG TABS Take by mouthActive Multiple Vitamin (MULTI VITAMIN MENS PO) Take by mouthActive Cyanocobalamin (VITAMIN B 12) 100 MCG LOZG Take by mouth dailyActive allopurinol (ZYLOPRIM) 300 MG tablet TAKE 1 TABLET BY MOUTH EVERY DAY FOR 90 DAYS04/20/2022ctive atorvastatin (LIPITOR) 20 MG tablet TAKE 1 TABLET BY MOUTH EVERY DAY FOR 90 DAYS04/20/2022ctive Lancets (ONETOUCH DELICA PLUS [id number]) [facility] USE TO TEST 3 TIMES A DAY *DX E11.22*07/31/2022ctive latanoprost (XALATAN) 0.005 % ophthalmic solution 1 drop nightlyActive magnesium oxide (MAG-OX) 400 (240 Mg) MG tablet Take 1 tablet by mouth daily08/20/2023ctive polyethylene glycol (GLYCOLAX) 17 GM/SCOOP powder Take 17 g by mouth dailyActive XARELTO 20 MG TABS tablet Take 1 tablet by mouth every dckfvno13/11/2025Active Koqpnpy-Vontatowmhr-Rdxsekirrr (BREZTRI AEROSPHERE) 160-9-4.8 MCG/ACT AERO Indications:Centrilobular emphysema (HCC)Inhale 2 puffs into the lungs 2 times daily Rinse after use 32.1 g 5Active albuterol sulfate HFA (PROVENTIL;VENTOLIN;PROAIR) 108 (90 Base) MCG/ACT inhaler Indications:Centrilobular emphysema (HCC)Inhale 2 puffs into the lungs every 4 hours as needed for Wheezing 54 g 5Active albuterol (PROVENTIL) (2.5 MG/3ML) 0.083% nebulizer solution Indications:Centrilobular emphysema (HCC)Take 3 mLs by nebulization 4 times daily 360 mL 1215Active albuterol sulfate HFA (PROVENTIL;VENTOLIN;PROAIR) 108 (90 Base) MCG/ACT inhaler 2 puffs as needed Inhalation every 4 hrs01/27/2025Discontinued(REORDER) albuterol (PROVENTIL) (2.5 MG/3ML) 0.083% nebulizer solution 3 mL as needed Inhalation every 6 hrs01/27/2025Discontinued(REORDER) BREZTRI AEROSPHERE 160-9-4.8 MCG/ACT AERO INHALE 2 PUFFS BY MOUTH TWICE DAILY. RINSE MOUTH AFTER USE01/27/2025Discontinued (REORDER) Active Problems ProblemNoted DateDiagnosed DateCentral sleep apnea01/27/2025 Assessment & Plan (01/27/2025 6:09 PM EST): As above. Patient has developed central apneas associated with CPAP use - complex sleep apnea... Ordering PAP titration with ASV; BiPAP will be insufficient for this because he would require back-up rate. Orders: Sleep Study with PAP Titration Centrilobular emphysema Assessment & Plan (01/27/2025 6:09 PM EST): Exacerbations: 09/2023, 02/2024, 03/2024 (COVID, secondary pneumonia), 08/2024 Doing better at this time. Remains on Breztri. Will need to look into additional therapy if anotherexacerbation (Ohtuvayre?). Continues to use saline nebs to help with congestion. A cjpb-so-bohq encounter was performed with the patient today in order to document continued need for a nebulizer with nebulized medications. He requires a nebulizer for the following reason: -The particular medication required to treat this condition, sodium chloride ( saline ) is available only by nebulized administration. This documentation authorizes the renewal, reorder/refill, and replacement of the nebulizer and allassociated supplies. Orders: Iregjhz-Lvnravhacam-Gfrgbvsnrp (BREZTRI AEROSPHERE) 160-9-4.8 MCG/ACT AERO; Inhale 2 puffs into thelungs 2 times daily Rinse after use albuterol sulfate HFA (PROVENTIL;VENTOLIN;PROAIR) 108 (90 Base) MCG/ACT inhaler; Inhale 2 puffs into the lungs every 4 hours as needed for Wheezing albuterol (PROVENTIL) (2.5 MG/3ML) 0.083% nebulizer solution; Take 3 mLs by nebulization 4 times daily History of tobacco abuse Assessment & Plan (01/27/2025 6:09 PM EST): The patient was evaluated for low-dose CT [...] old and quit smoking >15 years ago FANNIE (obstructive sleep apnea) Assessment & Plan (01/27/2025 6:09 PM EST): A nnsq-zj-iifg encounter was performed with the patient today in order to document continued need for positive airway pressure (PAP). -Current DME: [facility] -Sleep study: PSG on 01/02/2024 with AHI 33 (3% Medicare) & 20.7 (4% Medicare) -Most recent titration: PAP titration 02/04/2024, titrated to CPAP @ 41fkV1H -Compliance was reviewed from 12/27/2024 to 01/25/2025 -Total days used: 30/30 (100%) days -Total days of use >4 hours: 29/30 (97%) days with median use of 8 hours 11 minutes -Current model: AirSense 11 AutoSet -Current mode: CPAP @ 35jlI7D -Residual AHI: 13.8 -Central apneas: 8.3 -Obstructive apneas: 0.2 -Median air leak: 7L/min -Mask/harness fitting: Feels strap is digging into back of head -Sleep quality with PAP: Better quality sleep with use -Residual daytime hypersomnolence: Decreased with use, but still remains sleepy ([place] = 9) -Recommendations: He has excellent compliance, but AHI still elevated. Further review revealed development of central sleep apneic episodes, up to AHI 8.3 CSA... Suspect patient is developing complexsleep apnea from CPAP. I explained this to the patient. He needs a new titration study with Adaptive Servo Ventilation (ASV) to manage the central events. The quality assurance/r&d lab technician may also be able to help troubleshoot mask fitting and provide some advice. Will have patient return in 2 months to monitorclosely. -This documentation authorizes that the patient's DME may request to renew, reorder, and/or replacetubing, mask, filter, any other associated supplies, and the PAP device (if applicable). Orders: Sleep Study with PAP Titration Idiopathic sleep related nonobstructive alveolar hypoventilation Assessment & Plan (01/27/2025 6:09 PM EST): Hypoxic episodes resolved with PAP use. Did not require supplemental O2 bleed-in. Resolved Problems ProblemNoted DateDiagnosed DateResolved DateOAB (overactive bladder)10/19/2022 01/27/2025 Encounters DateTypeDepartmentCare LaliCuatwsjqoei95/10/2025[facility] Pulmonology [address] [place] [address] [place] [address] Michael Whitfield DO 01/27/2025 11:00 AM ESTOffice Visit [facility] Pulmonology [address] [place] [address], [address] [place] [address] Michael Whitfield DO Centrilobular emphysema (Primary Dx); FANNIE (obstructive sleep apnea); Central sleep apnea; Idiopathic sleep related nonobstructive alveolar hypoventilation; History of tobacco abuse; [facility] (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 jniaiuca87[facility] [address] [place] [address] [place] [address] Michael Whitfield DO from Last 3 Months Family History Medical HistoryRelationNameCommentsHypertensionFatherLung CancerFatherProstate CancerFatherDiabetesMotherHeart DiseaseMotherHypertensionMotherRelationName StatusCommentsFatherDeceasedMotherDeceased Social History Tobacco UseTypesPacks/DayYears UsedDateSmoking Tobacco: [id number] - 1994Smokeless Tobacco: Never Tobacco Cessation:Counseling Given: Yes Alcohol UseStandard Drinks/WeekCommentsNever0 (1 standard drink = 0.6 oz pure alcohol)AUDIT-CAnswerDate RecordedFrequency of Alcohol ConsumptionNot on file 01/20/2025Q2: How many drinks containing alcohol do you have on a typical day when you are drinking?Patient does not drink01/20/2025Q3: How often do you have six or more drinks on one occasion?Never01/20/2025Interpersonal Safety Domain Source: IP Abuse ScreeningAnswerDate RecordedRead-Only, Retired: Physical Abuse Jiuvfp7810/03/2022Read-Only, Retired: Verbal LjpfePqyzca07/15/2023Read-Only, Retired: Emotional qutfaIvkstc93/15/2023Read-Only, Retired: Financial Abuse Mrwtjk0610/03/2022Read-Only, Retired: Sexual oriytWtattz90/15/2023Sex and Gender InformationValueDate RecordedSex Assigned at BirthNot on fileLegal SexMale 04/18/2021 11:41 PM ESTGender IdentityNot on fileSexual OrientationNot on file Last Filed Vital Signs Vital SignReadingTime TakenCommentsBlood Mwsabett646/80103/30/2024 10:47 AM EST Gicav135401/27/2025 10:47 AM ZYZIlonuwhmrsh03.9 ??C (96.6 ??F)01/27/2025 10:47 AM ESTRespiratory Licp875903/30/2024 10:47 AM ESTOxygen Rgjquofjet00%01/27/2025 10:47 AM ESTon room airInhaled Oxygen Concentration--Lbkaih72.9 kg (185 lb)01/27/2025 10:47 AM ESTPatient EdapvnokOegdid928.3 cm (5' 11 )01/27/2025 10:47 AM ESTBody Mass Index25.8103/30/2024 10:47 AM EST Plan of Treatment DateTypeDepartmentCare Team (Latest Contact Info)Rfqmcnngeeb61/18/2026 10:00 AM ESTOffice Visit [facility] Pulmonology [facility] [facility], [address] [place] [address] Michael Whitfield DO [address] [facility] [address] [place] [address] 2 [place] F/U FANNIE/CSA, COPD.Health MaintenanceDue DateLast DoneCommentsLipids 1Depression Wdbohv4404/25/1952Shingles vaccine (1 of 2)1990 12/24/2013Respiratory Syncytial Virus (RSV) or age 60 yrs+ (1 - 1-dose 75+ series)04/26/2015Annual Wellness Visit (Medicare)01/15/2023OVID-19 Vaccine ( - season), 12/04/2020, 04/07/2020, Additional history existsDTaP/Tdap/Td vaccine (2 - Td or Tdap) Pneumococcal 50+ years EfznanaElcynffos93/13/2017, 01/19/2017, 01/12/2016, Additional history existsFlu rqhucijXyhaggzql98/30/2025, 12/27/2023, 12/04/2022, Additional history existsHepatitis A vaccineAged OutNo longer eligible based on patient's age to complete this topicHepatitis B vaccineAged OutNo longer eligible based on patient's age to complete this topicHib vaccineAged OutNo longer eligible based on patient's age to complete this topicMeningococcal (ACWY) vaccineAged OutNo longer eligible based on patient's age to complete this topicMeningococcal B vaccineAged OutNo longer eligible based on patient's age to complete this topicPolio vaccineAged OutNo longer eligible based on patient's age to complete this topic Insurance * Guarantor: Jovon ChildsAccount TypeRelation to PatientDate of BirthPhone Billing AddressPersonal/MjdwahBdpk92/07/1941 [facility] [address] * Guarantor: Jovon ChildsAccount TypeRelation to PatientDate of BirthPhone Billing AddressPersonal/HyztkxUyix88/07/1941 [facility] [place] [address] Advance Directives * Full Code (Latest Code Status on File) Date ActivatedDate InactivatedComments10/03/2022 8:22 AM10/03/2022 2:42 PM NameRelationshipHealthcare Agent RelationshipCommunicationMary E NazSpouse Primary Decision Maker* Care Teams Team MemberRelationshipSpecialtyStart DateEnd Date Clayton Allred MD PCP - General03/01/22
--- OUTSIDE RECORDS SUMMARY | 2025-02-03 10:17 | XMS_ITS | Encounter Summary ---
Author Organization [facility] Address [id number] [address] [place] [address] Care Team Providers Care Medical Fee Clerk Name Role Phone Unavailable Primary Care Provider Unavailabl e Reason for Visit * ReasonOnset DateCommentsMed Yvcgbf9001/19/2025 Encounter Details DateTypeDepartmentCare Team (Latest Contact Info)Mpgourefidp64/01/2025Refill [facility] [address] [facility] [place] [address] Radhika Phoenix Social History Tobacco UseTypesPacks/DayYears UsedDateSmoking Tobacco: FormerCigarettes Smokeless Tobacco: Never Comments:Quit 30 years ago Hunger ScreeningAnswerDate RecordedWithin the past 12 months we worried whether our food would run out before we got money to buy more.Never True07/17/2024 Within the past 12 months the food we bought just didn't last and we didn't have money to get more.Never True07/17/2024Sex and Gender InformationValueDate RecordedSex Assigned at NxrysWyzh87/19/2025 3:23 PM EDTLegal ZqgEfff9407/07/2024 3:22 PM EDTGender CltuyrcwMcok94/19/2025 3:23 PM EDTSexual OrientationNot on filedocumented as of this encounter Miscellaneous Notes * Telephone Encounter - Radhika Phoenix - 01/19/2025 10:32 AM EST Pts calling to make an appt with Dr. Mcdermott Appt made with [facility] in [place] 02/02. Pts stated he will run out of xarelto before then and was unsure what to do. Xarelto 2.[facility]mg [facility] [place] documented in this encounter Plan of Treatment Not on file documented as of this encounter Visit Diagnoses Not on filedocumented in this encounter
--- OUTSIDE RECORDS SUMMARY | 2025-02-03 10:17 | XMS_ITS | Clinical Summary ---
Author Organization [facility] Address [address] [place], [place] [id number] Care Team Providers Care Qa Architect Name Role Phone Unavailable Primary Care Provider Unavailabl e Allergies No known active allergies Medications MedicationSigDispense QuantityRefillsLast FilledStart DateEnd DateStatus ACIPHEX 20MG TABLET EC Take one(1) toozq406Active ASPIRIN 81MG TABLET Take one (1) tablet daily .Active METOCLOPRAMIDE 10MG TABLET Take one(1) tablet daily.Active PO FOR MEN CAPLET SA Take one(1) tablet daily.Active L-LYSINE 500MG TABLET Take one(1) tablet daily.Active BENADRYL 25MG KAPSEALS Take one(1) tablet daily at bedtime.Active OMEPRAZOLE ORAL Take by mouth.Active ALLOPURINOL ORAL Take by mouth.Active losartan (COZAAR) 50 mg tablet Take 50 mg by mouth once daily.Active krill oil 500 mg cap Take by mouth.Active SILDENAFIL CITRATE (VIAGRA ORAL) Take by mouth as needed.Active tamsulosin ER (FLOMAX) 0.4 mg cp24 Take 0.4 mg by mouth.Active CINNAMON BARK ORAL Take by mouth.Active Active Problems ProblemNoted DateDiagnosed NvmfKziuqqmgx85/30/2016Vocal cord rhgvpy0208/19/2015 Family History Medical HistoryRelationCommentsArthritisFatherRACancerFatherlung ca at 72 HypertensionFatherDiabetesMotherHeartMotherHypertensionMotherRelationStatus CommentsFatherMother Social History Tobacco UseTypesPacks/DayYears UsedDateSmoking Tobacco: KajwjmStlgfuqfew453 Comments:Quit 21 years ago Alcohol UseStandard Drinks/WeekCommentsNot Asked0 (1 standard drink = 0.6 oz pure alcohol)Sex and Gender InformationValueDate RecordedSex Assigned at Not on fileLegal PyxWiho00/02/2012 10:03 AM ESTGender IdentityNot on fileSexual OrientationNot on file Last Filed Vital Signs Vital SignReadingTime TakenCommentsBlood Zarfmgtw117/8206 1:45 PM EDT Mnwie6694 1:45 PM EDTTemperature--Respiratory Rate--Oxygen Saturation-- Inhaled Oxygen Concentration--Nazzwu19.6 kg (191 lb)08/19/2015 8:14 AM EDTHeight 180.3 cm (5' 11 )08/19/2015 8:14 AM EDTBody Mass Index26.64008/19/2015 8:14 AM EDT Plan of Treatment Health MaintenanceDue DateLast DoneCommentsAnxiety Hfjlgucsx20/07/1959Depression Skdnrhdnj73/07/1959DTaP,Tdap,Td Vaccine (1 - Tdap)04/26/1959Diabetes Screening 1985Pneumococcal Vaccine: 50+ (1 of 1 - PCV)1990Shingrix Vaccine (1 of 2)1990RSV Vaccine (1 - 1-dose 75+ series)04/26/2015Advance Directive Gaufhlfzth10/01/2025ovid-19 Vaccine (1 - 2024- season)2024Influenza Vaccine (#1)2024 Insurance
--- OUTSIDE RECORDS SUMMARY | 2025-02-03 10:17 | XMS_ITS | Encounter Summary ---
Author Organization [facility] Address [address], [address] [place] [address] Care Team Providers Care Rooter Operator Name Role Phone Clayton Allred MD Primary Care Provider + [phone] Encounter Details DateTypeDepartmentCare Team (Latest Contact Info)Fztjmhxcjpk40/10/2025bstract [facility] Pulmonology [address] [place] [address] [address] [place] [address] Michael Whitfield DO [address] [facility] [address] [place] [address] Social History Tobacco UseTypesPacks/DayYears UsedDateSmoking Tobacco: [id number] - 1994Smokeless Tobacco: NeverAlcohol UseStandard Drinks/WeekCommentsNever0 (1 standard drink = 0.6 oz pure alcohol)AUDIT-CAnswerDate RecordedFrequency of Alcohol ConsumptionNot on file01/20/2025Q2: How many drinks containing alcohol do you have on a typical day when you are drinking?Patient does not drink 01/20/2025Q3: How often do you have six or more drinks on one occasion?Never 01/20/2025Interpersonal Safety Domain Source: IP Abuse ScreeningAnswerDate RecordedRead-Only, Retired: Physical VazfoOzgzgb24/15/2023Read-Only, Retired: Verbal YeeigPypiuj85/15/2023Read-Only, Retired: Emotional jsdwgAygooe68/15/2023 Read-Only, Retired: Financial QummnIhrezh70/15/2023Read-Only, Retired: Sexual dmymoGilpmi19/15/2023Sex and Gender InformationValueDate RecordedSex Assigned at BirthNot on fileLegal VawIkjo2404/18/2021 11:41 PM ESTGender IdentityNot on file Sexual OrientationNot on filedocumented as of this encounter Plan of Treatment DateTypeDepartmentCare Team (Latest Contact Info)Intonlpohbi50/18/2026 10:00 AM ESTOffice Visit [facility] Pul[facility] [address] [facility] [address] [place] [address] Michael Whitfield DO [address] [facility] [address] [place] [address] 2 [place] F/U FANNIE/CSA, COPD.documented as of this encounter Visit Diagnoses Not on filedocumented in this encounter Additional Health Concerns AssessmentNoted TimeA fall risk assessment has been completed for the patient 01/27/2025 10:48 AM ESTA Body Mass Index follow-up plan has been documented for the ywbyati1303/20/2022 4:33 PM ESTdocumented as of this encounter Care Teams Team MemberRelationshipSpecialtyStart DateEnd Date Clayton lAlred MD PCP - General03/01/22documented as of this encounter
--- OUTSIDE RECORDS SUMMARY | 2025-02-03 10:17 | XMS_ITS | Encounter Summary ---
Author Organization [facility] Address [id number] [address] [place] [address] Care Team Providers Care Player Development Executive Name Role Phone Unavailable Primary Care Provider Unavailabl e Encounter Details DateTypeDepartmentCare Team (Latest Contact Info)Jiolfhrvngs52/15/2025Travel Social History Tobacco UseTypesPacks/DayYears UsedDateSmoking Tobacco: FormerCigarettes [...] True07/17/2024Sex and Gender InformationValueDate RecordedSex Assigned at FcccqNoxa85/19/2025 3:23 PM EDTLegal JmhYwoe9107/07/2024 3:22 PM EDTGender FmjnqwxzVtpb67/19/2025 3:23 PM EDTSexual OrientationNot on filedocumented as of this encounter Plan of Treatment Not on file documented as of this encounter Visit Diagnoses Not on filedocumented in this encounter
== END 2025-02-03 10:12 | disposition home or self-care (01) ==
LOC: LAB 10:14
PROVIDERS: PCP Family Medicine
DX: I82.412 Acute embolism and thrombosis of left femoral vein (principal)
CPT/HCPCS: 36415; 85378